=== PATIENT | male | born 1940 | race Caucasian/White ===

== ENCOUNTER 2018-05-27 15:30 | Inpatient (IN) | payer MEDICARE, OTHER, SELFPAY ==
[2018-05-27 16:00] VITALS: BP 101/62; PULSE 93; RESP 18; TEMP 36.3; O2SAT 90
[2018-05-27 16:10] VITALS: BMI 31.3
[2018-05-27 16:21] VITALS: BMI 31.3
--- NOTE | 2018-05-27 16:22 | PCM.HP.STD ---
Problem List (1) Chest pain Status: Acute (2) NSTEMI (non-ST elevated myocardial infarction) Status: Acute (3) Coronary artery disease Status: Chronic (4) Left ventricular dysfunction Status: Acute (5) Diabetes mellitus type 2 in obese Status: Chronic (6) Hypertension Status: Chronic (7) Hyperlipidemia Status: Chronic (8) BPH (benign prostatic hyperplasia) Status: Chronic (9) Atrial fibrillation Status: Chronic (10) Acute kidney injury Status: Chronic (11) GERD (gastroesophageal reflux disease) Status: Chronic History of Present Illness Date of Admission: 05/27/18 Chief Complaint: Here for rehabilitation, strengthening, prior to discharge home with spouse. The patient is a 78 year old Male with below past medical history originally admitted to [facility] with NSTEMI, transferred to [facility] for CABG evaluation. Echo EF 20 to 25%. CT angiogram chest NEGATIVE pulmonary embolism. 05/11/2018 Urology placed indwelling perez catheter due to urinary retention. On Bactrim DS for presumptive urinary tract infection. 05/13/2018 CABG x 5 performed. Atrial Fibrillation post-operatively converted with oral amiodarone. Echo post-op EF 33%. 05/21/2018 Urine culture grew 10 to 50,000 multiple organisms. 05/22/2018 Renal consulted for acute kidney injury, Creatinine 2.2, recommended holding Lasix, RAAS inhibitors. 05/23/2018 Infectious Disease consulted for elevated WBC 26.6, recommended stopping all antibiotics. 05/27/2018 Admit to TCU with debility, here for rehabilitation, strengthening, prior to discharge home with spouse. Resident has reflux symptoms with gas. He is also constipated. Past Medical History Past Medical History (Chronic Problems): Chronic Problems Coronary artery disease (Chronic) Diabetes mellitus type 2 in obese (Chronic) Hypertension (Chronic) Hyperlipidemia (Chronic) BPH (benign prostatic hyperplasia) (Chronic) Atrial fibrillation (Chronic) Acute kidney injury (Chronic) GERD (gastroesophageal reflux disease) (Chronic) Home Medications: Ambulatory Orders Medication Instructions Recorded Acetaminophen 650 mg PO Q4H 05/27/18 Amiodarone HCl [Pacerone] 200 mg PO DAILY 05/27/18 Aspirin 81 mg PO DAILY 05/27/18 Atorvastatin Calcium 80 mg PO QHS 05/27/18 Clopidogrel Bisulfate [Plavix] 75 mg PO DAILY 05/27/18 Enoxaparin [Lovenox] 30 mg SC DAILY@0600 05/27/18 Finasteride [Proscar] 5 mg PO DAILY 05/27/18 Furosemide [Lasix] 20 mg PO DAILY 05/27/18 Lisinopril [Zestril] 2.5 mg PO DAILY 05/27/18 Melatonin 3 mg PO QHS 05/27/18 Metformin HCl [Glucophage] 500 mg PO BIDCM 05/27/18 Metoprolol Succinate 100 mg PO BID 05/27/18 Multivitamin,Therapeutic [Thera] 1 each PO DAILY 05/27/18 Ondansetron [Zofran Odt] 4 mg PO Q6H PRN PRN 05/27/18 Oxycodone [Oxyir] 5 mg PO Q6H PRN PRN 05/27/18 Pantoprazole Sodium [Protonix] 40 mg PO DAILY 05/27/18 Tamsulosin HCl [Flomax] 0.4 mg PO QHS 05/27/18 Surgical History: coronary bypass surgery - X 5. Psychiatric History: No pertinent psych hx Lives: Spouse/ Significant Other Smoking Status: Former smoker Tobacco Use: Cigars Alcohol: None Drugs: None - *Family History Maternal History Items: No pertinent history Paternal History Items: No pertinent history Review of Systems Constitutional: Denies: Chills, Fever, Weight Change HEENT: Denies: Head Aches, Sinus Congestion, Sinus Drainage Cardiovascular: Denies: Chest Pain, Palpitations Respiratory: Denies: Cough, Shortness of breath at rest, Sputum production Gastrointestinal: Reports: Constipation, Dyspepsia. Denies: Abdominal Pain, Nausea, Vomiting Genitourinary: Denies: Dysuria Musculoskeletal: Denies: Joint Pain, Joint Tenderness Skin: Denies: Rash, Wounds Neurological: Denies: Numbness, Tingling, Focal weakness Psychiatric: Denies: Anxiety, Depression, Homicidal Ideations, Suicidal Ideations Hematologic/ Lymphatic: Denies: Easy Bruising, Easy Bleeding VTE Information - Inpt Only VTE Present on Admission: No VTE Mechan Device Prophylaxis: Knee High BERTO Hose VTE Pharm Prophylaxis ordered?: Yes Patient Problems: Active and Suspected Problems Chest pain (Acute) NSTEMI (non-ST elevated myocardial infarction) (Acute) Left ventricular dysfunction (Acute) - Physical Exam General: Alert, Oriented x3, Cooperative HEENT: Atraumatic, PERRLA, EOMI, Normocephalic Neck: Supple, No JVD, Negative Carotid Bruits Lungs: Clear to auscultation, Normal air movement Cardiovascular: Regular rate, No murmurs Abdomen: Bowel Sounds Present, Soft, Non Tender Extremities: Capillary Refill Less than 3 Seconds, Edema - 1+ pitting edema bilaterally. Skin: No rashes, No breakdown, Incision - Sternal incision clean, dry, intact. Musculoskeletal: No Tenderness to Palpation of Joints or Extremities Neurological: Cranial nerves II-XII grossly intact Psych/Mental Status: Normal Affect, Appropriate Weight: 96.2 kg Body Mass Index (BMI) 31.3 Assessment/Plan All Active Problems Chest pain (Acute) NSTEMI (non-ST elevated myocardial infarction) (Acute) Left ventricular dysfunction (Acute) 78 year old male with below past medical history hospitalized for chest pain, NSTEMI, underwent CABG x 5 05/13/2018, post-operative course complicated by atrial fibrillation, leukocytosis, acute kidney injury, admitted to TCU with debility, here for rehabilitation, strengthening, prior to discharge home with spouse. Debility - PT/OT. Pain - Tylenol 1000MG Q8H PRN mild pain, Oxycodone 5MG Q6H PRN moderate pain. Bowel - Miralax 17GM daily, Senna/colace 2 tablets BID, Dulcolax 10MG PO daily PRN, Golytely 1 Liter PO x 1 dose for clean out. Pneumonia vaccination - Administer Prevnar 13 and/or Pneumovax 23 as necessary. DVT prophylaxis - Lovenox 30MG SC daily. Atrial Fibrillation - Metoprolol succinate 100MG BID, Amiodarone 200MG daily, not on anticoagulation, atrial fibrillation episode was transient. Coronary Artery Disease s/p CABG x 5 - Metoprolol succinate 100MG BID, Lisinopril 2.5MG daily, Plavix 75MG daily, Aspirin 81MG daily. Hyperlipidemia - Atorvastatin 80MG QHS. BPH - Tamsulosin 0.4MG daily, Finasteride 5MG daily. Edema - Lasix 20MG daily. Nutrition - Glucerna Shake 120ML TID, MVI daily. Insomnia - Melatonin 10MG QHS. Diabetes Mellitus II - Metformin 500MG BID. Nausea - Zofran 4MG Q6H PRN. GERD - Pantoprazole 40MG daily, Mylanta II 30ML Q6H PRN.
--- NOTE | 2018-05-27 16:30 | HP.PCM_ITS ---
Problem List (1) Chest pain Status: Acute (2) NSTEMI (non-ST elevated myocardial infarction) Status: Acute (3) Coronary artery disease Status: Chronic (4) Left ventricular dysfunction Status: Acute (5) Diabetes mellitus type 2 in obese Status: Chronic (6) Hypertension Status: Chronic (7) Hyperlipidemia Status: Chronic (8) BPH (benign prostatic hyperplasia) Status: Chronic (9) Atrial fibrillation Status: Chronic (10) Acute kidney injury Status: Chronic (11) GERD (gastroesophageal reflux disease) Status: Chronic History of Present Illness Date of Admission: 05/27/18 Chief Complaint: Here for rehabilitation, strengthening, prior to discharge home with spouse. The patient is a 78 year old Male with below past medical history originally admitted to [facility] with NSTEMI, transferred to [facility] for CABG evaluation. Echo EF 20 to 25%. CT angiogram chest NEGATIVE pulmonary embolism. 05/11/2018 Urology placed indwelling perez catheter due to urinary retention. On Bactrim DS for presumptive urinary tract infection. 05/13/2018 CABG x 5 performed. Atrial Fibrillation post-operatively converted with oral amiodarone. Echo post-op EF 33%. 05/21/2018 Urine culture grew 10 to 50,000 multiple organisms. 05/22/2018 Renal consulted for acute kidney injury, Creatinine 2.2, recommended holding Lasix, RAAS inhibitors. 05/23/2018 Infectious Disease consulted for elevated WBC 26.6, recommended stopping all antibiotics. 05/27/2018 Admit to TCU with debility, here for rehabilitation, strengthening, prior to discharge home with spouse. Resident has reflux symptoms with gas. He is also constipated. Past Medical History Past Medical History (Chronic Problems): Chronic Problems Coronary artery disease (Chronic) Diabetes mellitus type 2 in obese (Chronic) Hypertension (Chronic) Hyperlipidemia (Chronic) BPH (benign prostatic hyperplasia) (Chronic) Atrial fibrillation (Chronic) Acute kidney injury (Chronic) GERD (gastroesophageal reflux disease) (Chronic) Home Medications: Ambulatory Orders Medication Instructions Recorded Acetaminophen 650 mg PO Q4H 05/27/18 Amiodarone HCl [Pacerone] 200 mg PO DAILY 05/27/18 Aspirin 81 mg PO DAILY 05/27/18 Atorvastatin Calcium 80 mg PO QHS 05/27/18 Clopidogrel Bisulfate [Plavix] 75 mg PO DAILY 05/27/18 Enoxaparin [Lovenox] 30 mg SC DAILY@0600 05/27/18 Finasteride [Proscar] 5 mg PO DAILY 05/27/18 Furosemide [Lasix] 20 mg PO DAILY 05/27/18 Lisinopril [Zestril] 2.5 mg PO DAILY 05/27/18 Melatonin 3 mg PO QHS 05/27/18 Metformin HCl [Glucophage] 500 mg PO BIDCM 05/27/18 Metoprolol Succinate 100 mg PO BID 05/27/18 Multivitamin,Therapeutic [Thera] 1 each PO DAILY 05/27/18 Ondansetron [Zofran Odt] 4 mg PO Q6H PRN PRN 05/27/18 Oxycodone [Oxyir] 5 mg PO Q6H PRN PRN 05/27/18 Pantoprazole Sodium [Protonix] 40 mg PO DAILY 05/27/18 Tamsulosin HCl [Flomax] 0.4 mg PO QHS 05/27/18 Surgical History: coronary bypass surgery - X 5. Psychiatric History: No pertinent psych hx Lives: Spouse/ Significant Other Smoking Status: Former smoker Tobacco Use: Cigars Alcohol: None Drugs: None - *Family History Maternal History Items: No pertinent history Paternal History Items: No pertinent history Review of Systems Constitutional: Denies: Chills, Fever, Weight Change HEENT: Denies: Head Aches, Sinus Congestion, Sinus Drainage Cardiovascular: Denies: Chest Pain, Palpitations Respiratory: Denies: Cough, Shortness of breath at rest, Sputum production Gastrointestinal: Reports: Constipation, Dyspepsia. Denies: Abdominal Pain, Nausea, Vomiting Genitourinary: Denies: Dysuria Musculoskeletal: Denies: Joint Pain, Joint Tenderness Skin: Denies: Rash, Wounds Neurological: Denies: Numbness, Tingling, Focal weakness Psychiatric: Denies: Anxiety, Depression, Homicidal Ideations, Suicidal Ideations Hematologic/ Lymphatic: Denies: Easy Bruising, Easy Bleeding VTE Information - Inpt Only VTE Present on Admission: No VTE Mechan Device Prophylaxis: Knee High BERTO Hose VTE Pharm Prophylaxis ordered?: Yes Patient Problems: Active and Suspected Problems Chest pain (Acute) NSTEMI (non-ST elevated myocardial infarction) (Acute) Left ventricular dysfunction (Acute) - Physical Exam General: Alert, Oriented x3, Cooperative HEENT: Atraumatic, PERRLA, EOMI, Normocephalic Neck: Supple, No JVD, Negative Carotid Bruits Lungs: Clear to auscultation, Normal air movement Cardiovascular: Regular rate, No murmurs Abdomen: Bowel Sounds Present, Soft, Non Tender Extremities: Capillary Refill Less than 3 Seconds, Edema - 1+ pitting edema bilaterally. Skin: No rashes, No breakdown, Incision - Sternal incision clean, dry, intact. Musculoskeletal: No Tenderness to Palpation of Joints or Extremities Neurological: Cranial nerves II-XII grossly intact Psych/Mental Status: Normal Affect, Appropriate Weight: 96.2 kg Body Mass Index (BMI) 31.3 Assessment/Plan All Active Problems Chest pain (Acute) NSTEMI (non-ST elevated myocardial infarction) (Acute) Left ventricular dysfunction (Acute) 78 year old male with below past medical history hospitalized for chest pain, NSTEMI, underwent CABG x 5 05/13/2018, post-operative course complicated by atrial fibrillation, leukocytosis, acute kidney injury, admitted to TCU with debility, here for rehabilitation, strengthening, prior to discharge home with spouse. * Debility - PT/OT. * Pain - Tylenol 1000MG Q8H PRN mild pain, Oxycodone 5MG Q6H PRN moderate pain. * Bowel - Miralax 17GM daily, Senna/colace 2 tablets BID, Dulcolax 10MG PO daily PRN, Golytely 1 Liter PO x 1 dose for clean out. * Pneumonia vaccination - Administer Prevnar 13 and/or Pneumovax 23 as necessary. * DVT prophylaxis - Lovenox 30MG SC daily. * Atrial Fibrillation - Metoprolol succinate 100MG BID, Amiodarone 200MG daily, not on anticoagulation, atrial fibrillation episode was transient. * Coronary Artery Disease s/p CABG x 5 - Metoprolol succinate 100MG BID, Lisinopril 2.5MG daily, Plavix 75MG daily, Aspirin 81MG daily. * Hyperlipidemia - Atorvastatin 80MG QHS. * BPH - Tamsulosin 0.4MG daily, Finasteride 5MG daily. * Edema - Lasix 20MG daily. * Nutrition - Glucerna Shake 120ML TID, MVI daily. * Insomnia - Melatonin 10MG QHS. * Diabetes Mellitus II - Metformin 500MG BID. * Nausea - Zofran 4MG Q6H PRN. * GERD - Pantoprazole 40MG daily, Mylanta II 30ML Q6H PRN.
[2018-05-27 17:16] LABS: Bedside Glucose 130 mg/dL (70-110)
--- NOTE | 2018-05-27 21:03 | NURSING ---
Discussed code status with patient, patient wishes to be a DNRCC. Purple bracelet applied
[2018-05-27 21:06] LABS: Bedside Glucose 127 mg/dL (70-110)
[2018-05-27] MEDS: Electrolyte Solution/Peg's 4000 ML 1000 ML PO (22:14)
[2018-05-27] MEDS: Glucerna Shake 120 ML LIQUID PO (22:22)
[2018-05-27 22:23] VITALS: BP 116/72; PULSE 89
[2018-05-27] MEDS: MELATONIN 10 MG TABLET PO (22:23)
[2018-05-27] MEDS: Metoprolol(XL)Succ 100 MG Tablet PO (22:23)
[2018-05-27] MEDS: Tamsulosin HCl 0.4 MG Capsule PO (22:25)
[2018-05-27] MEDS: Atorvastatin Calcium 80 MG Tablet PO (22:26)
[2018-05-28] MEDS: Amiodarone 200 MG Tablet PO (05:31)
[2018-05-28 05:32] VITALS: BP 108/67; PULSE 86
[2018-05-28] MEDS: Lisinopril 2.5 MG Tablet PO (05:32)
[2018-05-28] MEDS: Finasteride 5 MG Tablet PO (05:32)
[2018-05-28] MEDS: Clopidogrel Bisulfate 75 MG Tablet PO (05:32)
[2018-05-28] MEDS: Pantoprazole Sodium 40 MG Tablet PO (05:32)
[2018-05-28] MEDS: Metoprolol(XL)Succ 100 MG Tablet PO ×2 (05:32→19:45)
[2018-05-28] MEDS: Furosemide 20 MG Tablet PO (05:32)
[2018-05-28] MEDS: Enoxaparin 30 MG/0.3 ML Syringe SC (05:34)
[2018-05-28 06:00] VITALS: PULSE 78; RESP 18; O2SAT 94
[2018-05-28 06:56] LABS: Bedside Glucose 128 mg/dL (70-110)
[2018-05-28 07:34] LABS: Absolute Lymphocyte Count 0.83 X10^3/ul (0.83-4.51); Absolute Neutrophil Count 14.5 X10^3/uL (2.0-7.7); Basophil# 0.02 X10^3/uL; Basophil% 0.1 % (0-1); Eosinophil# 0.19 X10^3/uL; Eosinophils% 1.2 % (0-5); Hemoglobin 9.6 g/dl (13.0-16.5); Lymphocyte # 0.83 X10^3/ul (4.0); Lymphocyte % 5.1 % (19-41); Mean Corpuscular Hgb 29.8 pg (27.0-32.0); Mean Corpuscular Volume 96.3 fL (80-94); Mean Platelet Vol. 10.4 fl (6.2-12.0); Monocyte# 0.61 X10^3/uL; Monocyte% 3.8 % (0-10); Neutrophil # 14.53 X10^3/uL (2.7-7.7); Neutrophil % 89.6 % (47-70); Platelet Count 175 K/mm3 (150-450); RBC Distribution Width CV 14.4 % (11.6-14.6); RBC Distribution Width SD 50.3 fl (35.1-43.9); Red Blood Count 3.22 M/mm3 (4.6-6.2); White Blood Count 16.2 K/mm3 (4.4-11.0)
[2018-05-28 07:35] LABS: POSITIVE COUNT NO; POSITIVE DIFFERENTIAL NO; POSITIVE MORPHOLOGY NO
[2018-05-28 07:52] LABS: Anion Gap 9 (5-15); BUN 24 mg/dL (7-18); BUN/Creat Ratio 30.4 RATIO (10-20); Calcium,Total 8.5 mg/dL (8.5-10.1); Chloride 106 mmol/L (98-107); Creatinine, Serum 0.79 mg/dL (0.70-1.30); EST Glomerular Filtration Rate 101 mL/min (>60); Est Glom Filt Rate - Afr Amer 122 mL/min (>60); Estimated Creatinine Clearance 60.88 ml/min; Glucose 131 mg/dL (74-106); Potassium 4.3 mmol/L (3.5-5.1); Sodium Level 138 mmol/L (136-145)
[2018-05-28] MEDS: Aspirin 81 MG TAB.CHEW PO (08:18)
[2018-05-28] MEDS: Multivitamins,Therapeutic Tablet 1 TABLET PO (08:18)
[2018-05-28] MEDS: Glucerna Shake 120 ML LIQUID PO ×2 (08:18→13:39)
[2018-05-28 11:21] LABS: Bedside Glucose 146 mg/dL (70-110)
[2018-05-28] MEDS: Tuberculin,Purif.prot.deriv. 50 TU/ML Vial 5 ML ID (13:37)
[2018-05-28 16:00] VITALS: BP 97/55; PULSE 93; RESP 16; TEMP 36.7; O2SAT 92
[2018-05-28 19:45] VITALS: BP 102/60; PULSE 93
[2018-05-28] MEDS: oxyCODONE 5 MG Tablet PO (21:32)
[2018-05-28] MEDS: MELATONIN 10 MG TABLET PO (21:32)
[2018-05-28] MEDS: Tamsulosin HCl 0.4 MG Capsule PO (21:32)
[2018-05-28] MEDS: Atorvastatin Calcium 80 MG Tablet PO (21:33)
[2018-05-29 04:53] VITALS: PULSE 84
[2018-05-29] MEDS: Metoprolol(XL)Succ 100 MG Tablet PO ×2 (04:53→18:48)
[2018-05-29] MEDS: Pantoprazole Sodium 40 MG Tablet PO (04:54)
[2018-05-29] MEDS: Finasteride 5 MG Tablet PO (04:55)
[2018-05-29] MEDS: Clopidogrel Bisulfate 75 MG Tablet PO (04:55)
[2018-05-29] MEDS: Amiodarone 200 MG Tablet PO (04:55)
[2018-05-29] MEDS: Furosemide 20 MG Tablet PO (04:56)
[2018-05-29] MEDS: oxyCODONE 5 MG Tablet PO ×2 (04:56→20:01)
[2018-05-29] MEDS: Enoxaparin 30 MG/0.3 ML Syringe SC (04:56)
[2018-05-29] MEDS: Lisinopril 2.5 MG Tablet PO (04:56)
[2018-05-29 07:10] LABS: Bedside Glucose 122 mg/dL (70-110)
[2018-05-29] MEDS: Multivitamins,Therapeutic Tablet 1 TABLET PO (07:54)
[2018-05-29] MEDS: Glucerna Shake 120 ML LIQUID PO ×3 (07:54→18:50)
[2018-05-29] MEDS: Aspirin 81 MG TAB.CHEW PO (07:54)
[2018-05-29 10:00] VITALS: O2SAT 90
[2018-05-29 11:30] LABS: Bedside Glucose 124 mg/dL (70-110)
[2018-05-29 16:00] VITALS: BP 85/49; PULSE 87; RESP 16; TEMP 36.7; O2SAT 94
[2018-05-29 17:06] LABS: Bedside Glucose 138 mg/dL (70-110)
[2018-05-29 18:48] VITALS: BP 101/55; PULSE 82
[2018-05-29] MEDS: Menthol/Lanolin/Calamine/Znox 113 GM Tube 1 APPLIC TOPICAL (20:02)
[2018-05-29] MEDS: MELATONIN 10 MG TABLET PO (20:02)
[2018-05-29] MEDS: Atorvastatin Calcium 80 MG Tablet PO (20:02)
[2018-05-29] MEDS: Tamsulosin HCl 0.4 MG Capsule PO (20:02)
--- NOTE | 2018-05-29 20:03 | NURSING ---
Addendum entered by Iza Patterson 05/29/18 20:33: Dr. Ennis notified. New order for abd xray and lomotil. Pt updated on all. Will continue to monitor. Original Note: Pt having severe episodes of diarrhea/forceful liquid stools. Very uncomfortable, asking for something to alleviate diarrhea. RN aware. Continuing to monitor and encourage to call for help when needed. Pt agreeable to this. Continuing to monitor, hold all stool softeners.
[2018-05-29 21:31] LABS: Bedside Glucose 161 mg/dL (70-110)
--- NOTE | 2018-05-29 21:36 | NURSING ---
Dr Ennis notified of KUB results. Continue to monitor pt. NNO.
[2018-05-30] MEDS: Diphenoxylate/Atrop 1 Tablet PO ×2 (00:14→15:20)
[2018-05-30] MEDS: Enoxaparin 30 MG/0.3 ML Syringe SC (05:34)
[2018-05-30] MEDS: Finasteride 5 MG Tablet PO (05:34)
[2018-05-30] MEDS: Menthol/Lanolin/Calamine/Znox 113 GM Tube 1 APPLIC TOPICAL ×3 (05:34→21:50)
[2018-05-30] MEDS: Clopidogrel Bisulfate 75 MG Tablet PO (05:34)
[2018-05-30] MEDS: Pantoprazole Sodium 40 MG Tablet PO (05:34)
[2018-05-30 05:35] VITALS: PULSE 80
[2018-05-30] MEDS: Furosemide 20 MG Tablet PO (05:35)
[2018-05-30] MEDS: Amiodarone 200 MG Tablet PO (05:35)
[2018-05-30] MEDS: Metoprolol(XL)Succ 100 MG Tablet PO ×2 (05:35→17:36)
[2018-05-30] MEDS: Lisinopril 2.5 MG Tablet PO (05:35)
[2018-05-30] MEDS: oxyCODONE 5 MG Tablet PO (05:36)
[2018-05-30 07:06] LABS: Bedside Glucose 132 mg/dL (70-110)
[2018-05-30] MEDS: Glucerna Shake 120 ML LIQUID PO ×3 (08:52→17:34)
[2018-05-30] MEDS: Multivitamins,Therapeutic Tablet 1 TABLET PO (08:56)
[2018-05-30] MEDS: Aspirin 81 MG TAB.CHEW PO (08:56)
[2018-05-30 14:30] VITALS: PULSE 83; RESP 18; O2SAT 93
[2018-05-30 16:00] VITALS: BP 107/53; PULSE 83; RESP 16; TEMP 37.7; O2SAT 93
[2018-05-30 17:36] VITALS: BP 107/53; PULSE 83
[2018-05-30] MEDS: Tamsulosin HCl 0.4 MG Capsule PO (21:48)
[2018-05-30] MEDS: Atorvastatin Calcium 80 MG Tablet PO (21:48)
[2018-05-30] MEDS: MELATONIN 10 MG TABLET PO (21:48)
[2018-05-30 22:10] LABS: Bedside Glucose 116 mg/dL (70-110)
[2018-05-31] MEDS: Amiodarone 200 MG Tablet PO (05:21)
[2018-05-31] MEDS: Lisinopril 2.5 MG Tablet PO (05:21)
[2018-05-31] MEDS: Enoxaparin 30 MG/0.3 ML Syringe SC (05:21)
[2018-05-31] MEDS: Pantoprazole Sodium 40 MG Tablet PO (05:21)
[2018-05-31] MEDS: Finasteride 5 MG Tablet PO (05:21)
[2018-05-31] MEDS: Furosemide 20 MG Tablet PO (05:21)
[2018-05-31] MEDS: Clopidogrel Bisulfate 75 MG Tablet PO (05:21)
[2018-05-31 05:26] VITALS: BP 95/56; PULSE 80
[2018-05-31] MEDS: Menthol/Lanolin/Calamine/Znox 113 GM Tube 1 APPLIC TOPICAL ×3 (05:40→20:40)
[2018-05-31 06:55] LABS: Bedside Glucose 137 mg/dL (70-110)
--- NOTE | 2018-05-31 07:27 | NURSING ---
This nurse held pt bp med d/t low Bp 95/56, P-92 Rn Andrew briscoe. Rechecked BP 157/64, P-97
[2018-05-31] MEDS: Multivitamins,Therapeutic Tablet 1 TABLET PO (09:17)
[2018-05-31] MEDS: Aspirin 81 MG TAB.CHEW PO (09:17)
[2018-05-31] MEDS: Diphenoxylate/Atrop 1 Tablet PO ×2 (09:20→13:25)
[2018-05-31] MEDS: Glucerna Shake 120 ML LIQUID PO ×3 (09:31→17:15)
--- NOTE | 2018-05-31 13:07 | PCM.PN.RX ---
<Edgar Jamison C - Last Filed: 05/31/18 18:03> Progress Note - Pharmacy Subjective: [] TCU Admission Objective: Allergies No Known Allergies Allergy (Verified 05/27/18 17:09) Current Medications Generic Name Dose Route Start Last Admin Trade Name Freq PRN Reason Stop Dose Admin Acetaminophen 1,000 mg 05/27/18 19:13 Tylenol PO Q8H PRN MILD PAIN (1-3/10) Al Hydroxide/Mg Hydroxide 30 ml 05/27/18 19:07 Mylanta Ii PO Q6H PRN PRN INDIGESTION Amiodarone HCl 200 mg 05/28/18 06:00 05/31/18 05:21 Cordarone PO 200 mg DAILY TEO Administration Aspirin 81 mg 05/28/18 08:00 05/31/18 09:17 Aspirin, Baby PO 81 mg DAILYCM TEO Administration Atorvastatin Calcium 80 mg 05/27/18 22:00 05/30/18 21:48 Lipitor PO 80 mg QHS TEO Administration Bisacodyl 10 mg 05/27/18 19:08 Dulcolax PO DAILY PRN Constipation Calamine/Phenol 1 applic 05/29/18 14:00 05/31/18 05:40 Calmoseptine Ointment TOPICAL 1 applicatio TID TEO Administration Protocol Clopidogrel Bisulfate 75 mg 05/28/18 06:00 05/31/18 05:21 Plavix PO 75 mg DAILY TEO Administration Diphenoxylate HCl/Atropine 1 tablet 05/29/18 20:28 05/31/18 09:20 Lomotil PO 1 tablet Q4H PRN PRN Administration DIARRHEA Enoxaparin Sodium 30 mg 05/28/18 06:00 05/31/18 05:21 Lovenox SC 30 mg DAILY@0600 TEO Administration Finasteride 5 mg 05/28/18 06:00 05/31/18 05:21 Proscar PO 5 mg DAILY TEO Administration Furosemide 20 mg 05/28/18 06:00 05/31/18 05:21 Lasix PO 20 mg DAILY TEO Administration Lisinopril 2.5 mg 05/28/18 06:00 05/31/18 05:21 Zestril PO 2.5 mg DAILY TEO Administration Melatonin 10 mg 05/27/18 22:00 05/30/18 21:48 Melatonin PO 10 mg QHS TEO Administration Metformin HCl 500 mg 09/07/18 21:00 05/31/18 09:17 Glucophage PO 500 mg BIDCM [facility] Administration Metoprolol Succinate 100 mg 05/27/18 21:00 05/31/18 05:26 Toprol Xl (Beta Isidro) PO Not Given BID [facility] Multivitamins 1 tablet 05/28/18 08:00 05/31/18 09:17 Multivitamin PO 1 tablet DAILY@0800 TEO Administration Nutritional Formula (Lactose Free) 120 ml 05/27/18 17:45 05/31/18 12:01 Glucerna Shake PO 120 ml TIDCM [facility] Administration Ondansetron HCl 4 mg 05/27/18 16:47 Zofran Odt PO Q6H PRN PRN NAUSEA Oxycodone HCl 5 mg 05/27/18 19:13 05/30/18 05:36 Oxyir PO 5 mg Q6H PRN PRN Administration MODERATE PAIN (4-5/10) Pantoprazole Sodium 40 mg 05/28/18 06:00 05/31/18 05:21 Protonix PO 40 mg DAILY [facility] Administration Polyethylene Glycol 17 gm 05/28/18 06:00 05/31/18 05:22 Miralax PO Not Given DAILY [facility] Senna/Docusate Sodium 2 tablet 05/28/18 06:00 05/31/18 05:22 Senokot-S, Viridiana-Colace PO Not Given BID [facility] Simethicone 80 mg 05/30/18 08:45 05/31/18 12:01 Mylicon PO 80 mg TIDPC [facility] Administration Tamsulosin HCl 0.4 mg 05/27/18 22:00 05/30/18 21:48 Flomax PO 0.4 mg QHS [facility] Administration Tuberculin PPD 5 tu 06/04/18 10:00 Tubersol, Aplisol, Ppd ID 06/04/18 10:01 X1 ONE Problem List Chest pain (Acute) NSTEMI (non-ST elevated myocardial infarction) (Acute) Coronary artery disease (Chronic) Left ventricular dysfunction (Acute) Diabetes mellitus type 2 in obese (Chronic) Hypertension (Chronic) Hyperlipidemia (Chronic) BPH (benign prostatic hyperplasia) (Chronic) Atrial fibrillation (Chronic) Acute kidney injury (Chronic) GERD (gastroesophageal reflux disease) (Chronic) Vital Signs Temp Pulse Resp BP Pulse Ox 99.8 F H 80 16 95/56 L 93 05/30/18 16:00 05/31/18 05:26 05/30/18 16:00 05/31/18 05:26 05/30/18 16:00 Oxygen Delivery Method Room Air Weight: 94.489 kg Body Mass Index (BMI) 31.3 Sodium 138 mmol/L (136-145) 05/28/18 07:00 Potassium 4.3 mmol/L (3.5-5.1) 05/28/18 07:00 Chloride 106 mmol/L (98-107) 05/28/18 07:00 Carbon Dioxide 23.0 mmol/L (21.0-32.0) 05/28/18 07:00 Anion Gap 9 (5-15) 05/28/18 07:00 BUN 24 mg/dL (7-18) H 05/28/18 07:00 Creatinine 0.79 mg/dL (0.70-1.30) 05/28/18 07:00 Est GFR (MDRD) Af Amer 122 mL/min (>60) 05/28/18 07:00 Est GFR (MDRD) Non-Af 101 mL/min (>60) 05/28/18 07:00 BUN/Creatinine Ratio 30.4 RATIO (10-20) H 05/28/18 07:00 Glucose 131 mg/dL (74-106) H 05/28/18 07:00 Assessment/Plan: 1) Pain: Tylenol 1000mg po q8h prn for mild pain, Oxycodone 5mg po q6h prn for moderate pain. Please continue to monitor prn usage and signs/symptoms of increased/decreased pain. 2) DVT Prophylaxis: Lovenox 30mg subq daily. Pt's SrCr is 0.79, CrCl is 60.88, and Plts are 175. Please continue to monitor, and signs/symptoms of bleeding/clot. 3) Nausea: Zofran 4mg odt q6h prn for nausea. Please continue to monitor prn usage and for signs/symptoms of increased/decreased nausea. 4) GERD: Pantoprazole 40mg po daily, Mylanta II 30ml po q6h prn. Please continue to monitor for signs/symptoms of GERD. 5) BPH: Tamsulosin 0.4mg po daily, Finasteride 5mg po daily. Please continue to monitor for signs/symptoms of urinary retention. *6) Hyperlipidemia: Atorvastatin 80mg po qhs. Please consider a yearly liver and lipid panel while on this medication. Thanks 7) Edema: Furosemide 20mg po daily. Pt's Na is 138, K+ is 4.3, SrCr is 0.79. Please continue to monitor. Please continue to monitor for signs/symptoms of edema 8) CAD, AFib: Toprol XL 100mg po bid, Lisinopril 2.5mg daily, Plavix 75mg po daily, Aspirin 81mg po daily, Amiodarone 200mg daily. Pt's Na is 138, K+ is 4.3, SrCr is 0.79, CrCl is 60.88, BUN is 24. Pt's pulse are within normal rate and rhythm. Please continue to monitor pt's pulse and blood pressures. 9) Diabetes: Metformin 500mg po bid with food. Please continue to monitor pt's blood sugars and for signs/symptoms of hyperglycemia. Psychotropic Medications: Melatonin 10mg po qhs. medication will require a GDR 08/2018 unless clinically contraindicated. Unnecessary Medications: *Bowel Regimen: Bisacodyl 10mg po daily prn constipation, Lomotil 1 po q4h prn diarrhea, Miralax 17gm po daily, Senna/Docusate 2 po bid. Pt has been refusing Miralax and Senna/Docusate daily. Please consider discontinuing those medications and reordering them if needed. Thanks Date of Note:: 05/31/18 - Provider Comments Provider responsibility: Provider responsible to enter orders to implement recommendations <Arnulfo Ennis Chi - Last Filed: 05/31/18 19:09> Progress Note - Pharmacy Subjective: [] Objective: Allergies No Known Allergies Allergy (Verified 05/27/18 17:09) Current Medications Generic Name Dose Route Start Last Admin Trade Name Freq PRN Reason Stop Dose Admin Acetaminophen 1,000 mg 05/27/18 19:13 Tylenol PO Q8H PRN MILD PAIN (1-3/10) Al Hydroxide/Mg Hydroxide 30 ml 05/27/18 19:07 Mylanta Ii PO Q6H PRN PRN INDIGESTION Amiodarone HCl 200 mg 05/28/18 06:00 05/31/18 05:21 Cordarone PO 200 mg DAILY TEO Administration Aspirin 81 mg 05/28/18 08:00 05/31/18 09:17 Aspirin, Baby PO 81 mg DAILYCM [facility] Administration Atorvastatin Calcium 80 mg 05/27/18 22:00 05/30/18 21:48 Lipitor PO 80 mg QHS [facility] Administration Bisacodyl 10 mg 05/27/18 19:08 Dulcolax PO DAILY PRN Constipation Calamine/Phenol 1 applic 05/29/18 14:00 05/31/18 13:22 Calmoseptine Ointment TOPICAL 1 applicatio TID [facility] Administration Protocol Clopidogrel Bisulfate 75 mg 05/28/18 06:00 05/31/18 05:21 Plavix PO 75 mg DAILY [facility] Administration Diphenoxylate HCl/Atropine 1 tablet 05/29/18 20:28 05/31/18 13:25 Lomotil PO 1 tablet Q4H PRN PRN Administration DIARRHEA Doxepin HCl 50 mg 05/31/18 22:00 Doxepin Hcl PO QHS [facility] Enoxaparin Sodium 30 mg 05/28/18 06:00 05/31/18 05:21 Lovenox SC 30 mg DAILY@0600 [facility] Administration Finasteride 5 mg 05/28/18 06:00 05/31/18 05:21 Proscar PO 5 mg DAILY [facility] Administration Furosemide 20 mg 05/28/18 06:00 05/31/18 05:21 Lasix PO 20 mg DAILY [facility] Administration Lisinopril 2.5 mg 05/28/18 06:00 05/31/18 05:21 Zestril PO 2.5 mg DAILY [facility] Administration Metformin HCl 500 mg 05/27/18 21:00 05/31/18 17:15 [facility] Administration Metoprolol Succinate 100 mg 05/27/18 21:00 05/31/18 17:15 Toprol Xl (Beta Isidro) PO 100 mg BID [facility] Administration Multivitamins 1 tablet 05/28/18 08:00 05/31/18 09:17 Multivitamin PO 1 tablet DAILY@0800 [facility] Administration Nutritional Formula (Lactose Free) 120 ml 05/27/18 17:45 05/31/18 17:15 Glucerna Shake PO 120 ml TIDCM [facility] Administration Ondansetron HCl 4 mg 05/27/18 16:47 Zofran Odt PO Q6H PRN PRN NAUSEA Oxycodone HCl 5 mg 05/27/18 19:13 05/30/18 05:36 Oxyir PO 5 mg Q6H PRN PRN Administration MODERATE PAIN (4-5/10) Pantoprazole Sodium 40 mg 05/28/18 06:00 05/31/18 05:21 Protonix PO 40 mg DAILY TEO Administration Polyethylene Glycol 17 gm 05/28/18 06:00 05/31/18 05:22 Miralax PO Not Given DAILY TEO Senna/Docusate Sodium 2 tablet 05/31/18 17:20 Senokot-S, Viridiana-Colace PO BID PRN Constipation Simethicone 80 mg 05/30/18 08:45 05/31/18 18:24 Mylicon PO 80 mg TIDPC [facility] Administration Tamsulosin HCl 0.4 mg 05/27/18 22:00 05/30/18 21:48 Flomax PO 0.4 mg QHS TEO Administration Tuberculin PPD 5 tu 06/04/18 10:00 Tubersol, Aplisol, Ppd ID 06/04/18 10:01 X1 ONE Problem List Chest pain (Acute) NSTEMI (non-ST elevated myocardial infarction) (Acute) Coronary artery disease (Chronic) Left ventricular dysfunction (Acute) Diabetes mellitus type 2 in obese (Chronic) Hypertension (Chronic) Hyperlipidemia (Chronic) BPH (benign prostatic hyperplasia) (Chronic) Atrial fibrillation (Chronic) Acute kidney injury (Chronic) GERD (gastroesophageal reflux disease) (Chronic) Vital Signs Temp Pulse Resp BP Pulse Ox 97.4 F L 90 16 107/59 L 93 05/31/18 16:00 05/31/18 17:15 05/31/18 16:00 05/31/18 16:00 05/31/18 16:00 Oxygen Delivery Method Room Air Weight: 94.489 kg Body Mass Index (BMI) 31.3 Sodium 138 mmol/L (136-145) 05/28/18 07:00 Potassium 4.3 mmol/L (3.5-5.1) 05/28/18 07:00 Chloride 106 mmol/L (98-107) 05/28/18 07:00 Carbon Dioxide 23.0 mmol/L (21.0-32.0) 05/28/18 07:00 Anion Gap 9 (5-15) 05/28/18 07:00 BUN 24 mg/dL (7-18) H 05/28/18 07:00 Creatinine 0.79 mg/dL (0.70-1.30) 05/28/18 07:00 Est GFR (MDRD) Af Amer 122 mL/min (>60) 05/28/18 07:00 Est GFR (MDRD) Non-Af 101 mL/min (>60) 05/28/18 07:00 BUN/Creatinine Ratio 30.4 RATIO (10-20) H 05/28/18 07:00 Glucose 131 mg/dL (74-106) H 05/28/18 07:00 Assessment/Plan: Psychotropic Medications: Unnecessary Medications: Bowel Regimen: - Provider Comments Provider responsibility: Provider responsible to enter orders to implement recommendations Provider Comments to Recommendations by Pharmacy: Agree
--- NOTE | 2018-05-31 13:30 | PHA.CONS_ITS ---
<Edgar Jamison C - Last Filed: 05/31/18 18:03> Progress Note - Pharmacy Subjective: [] TCU Admission Objective: Allergies No Known Allergies Allergy (Verified 05/27/18 17:09) Current Medications Generic Name Dose Route Start Last Admin Trade Name Freq PRN Reason Stop Dose Admin Acetaminophen 1,000 mg 05/27/18 19:13 Tylenol PO Q8H PRN MILD PAIN (1-3/10) Al Hydroxide/Mg Hydroxide 30 ml 05/27/18 19:07 Mylanta Ii PO Q6H PRN PRN INDIGESTION Amiodarone HCl 200 mg 05/28/18 06:00 05/31/18 05:21 Cordarone PO 200 mg DAILY TEO Administration Aspirin 81 mg 05/28/18 08:00 05/31/18 09:17 Aspirin, Baby PO 81 mg DAILYCM [facility] Administration Atorvastatin Calcium 80 mg 05/27/18 22:00 05/30/18 21:48 Lipitor PO 80 mg QHS TEO Administration Bisacodyl 10 mg 05/27/18 19:08 Dulcolax PO DAILY PRN Constipation Calamine/Phenol 1 applic 05/29/18 14:00 05/31/18 05:40 Calmoseptine Ointment TOPICAL 1 applicatio TID TEO Administration Protocol Clopidogrel Bisulfate 75 mg 05/28/18 06:00 05/31/18 05:21 Plavix PO 75 mg DAILY TEO Administration Diphenoxylate HCl/Atropine 1 tablet 05/29/18 20:28 05/31/18 09:20 Lomotil PO 1 tablet Q4H PRN PRN Administration DIARRHEA Enoxaparin Sodium 30 mg 05/28/18 06:00 05/31/18 05:21 Lovenox SC 30 mg DAILY@0600 TEO Administration Finasteride 5 mg 05/28/18 06:00 05/31/18 05:21 Proscar PO 5 mg DAILY TEO Administration Furosemide 20 mg 05/28/18 06:00 05/31/18 05:21 Lasix PO 20 mg DAILY TEO Administration Lisinopril 2.5 mg 05/28/18 06:00 05/31/18 05:21 Zestril PO 2.5 mg DAILY TEO Administration Melatonin 10 mg 05/27/18 22:00 05/30/18 21:48 Melatonin PO 10 mg QHS TEO Administration Metformin HCl 500 mg 09/07/18 21:00 05/31/18 09:17 Glucophage PO 500 mg BIDCM [facility] Administration Metoprolol Succinate 100 mg 05/27/18 21:00 05/31/18 05:26 Toprol Xl (Beta Isidro) PO Not Given BID [facility] Multivitamins 1 tablet 05/28/18 08:00 05/31/18 09:17 Multivitamin PO 1 tablet DAILY@0800 TEO Administration Nutritional Formula (Lactose Free) 120 ml 05/27/18 17:45 05/31/18 12:01 Glucerna Shake PO 120 ml TIDCM [facility] Administration Ondansetron HCl 4 mg 05/27/18 16:47 Zofran Odt PO Q6H PRN PRN NAUSEA Oxycodone HCl 5 mg 05/27/18 19:13 05/30/18 05:36 Oxyir PO 5 mg Q6H PRN PRN Administration MODERATE PAIN (4-5/10) Pantoprazole Sodium 40 mg 05/28/18 06:00 05/31/18 05:21 Protonix PO 40 mg DAILY [facility] Administration Polyethylene Glycol 17 gm 05/28/18 06:00 05/31/18 05:22 Miralax PO Not Given DAILY [facility] Senna/Docusate Sodium 2 tablet 05/28/18 06:00 05/31/18 05:22 Senokot-S, Viridiana-Colace PO Not Given BID [facility] Simethicone 80 mg 05/30/18 08:45 05/31/18 12:01 Mylicon PO 80 mg TIDPC [facility] Administration Tamsulosin HCl 0.4 mg 05/27/18 22:00 05/30/18 21:48 Flomax PO 0.4 mg QHS [facility] Administration Tuberculin PPD 5 tu 06/04/18 10:00 Tubersol, Aplisol, Ppd ID 06/04/18 10:01 X1 ONE Problem List Chest pain (Acute) NSTEMI (non-ST elevated myocardial infarction) (Acute) Coronary artery disease (Chronic) Left ventricular dysfunction (Acute) Diabetes mellitus type 2 in obese (Chronic) Hypertension (Chronic) Hyperlipidemia (Chronic) BPH (benign prostatic hyperplasia) (Chronic) Atrial fibrillation (Chronic) Acute kidney injury (Chronic) GERD (gastroesophageal reflux disease) (Chronic) Vital Signs Temp Pulse Resp BP Pulse Ox 99.8 F H 80 16 95/56 L 93 05/30/18 16:00 05/31/18 05:26 05/30/18 16:00 05/31/18 05:26 05/30/18 16:00 Oxygen Delivery Method Room Air Weight: 94.489 kg Body Mass Index (BMI) 31.3 Sodium 138 mmol/L (136-145) 05/28/18 07:00 Potassium 4.3 mmol/L (3.5-5.1) 05/28/18 07:00 Chloride 106 mmol/L (98-107) 05/28/18 07:00 Carbon Dioxide 23.0 mmol/L (21.0-32.0) 05/28/18 07:00 Anion Gap 9 (5-15) 05/28/18 07:00 BUN 24 mg/dL (7-18) H 05/28/18 07:00 Creatinine 0.79 mg/dL (0.70-1.30) 05/28/18 07:00 Est GFR (MDRD) Af Amer 122 mL/min (>60) 05/28/18 07:00 Est GFR (MDRD) Non-Af 101 mL/min (>60) 05/28/18 07:00 BUN/Creatinine Ratio 30.4 RATIO (10-20) H 05/28/18 07:00 Glucose 131 mg/dL (74-106) H 05/28/18 07:00 Assessment/Plan: 1) Pain: Tylenol 1000mg po q8h prn for mild pain, Oxycodone 5mg po q6h prn for moderate pain. Please continue to monitor prn usage and signs/symptoms of increased/decreased pain. 2) DVT Prophylaxis: Lovenox 30mg subq daily. Pt's SrCr is 0.79, CrCl is 60.88 , and Plts are 175. Please continue to monitor, and signs/symptoms of bleeding/ clot. 3) Nausea: Zofran 4mg odt q6h prn for nausea. Please continue to monitor prn usage and for signs/symptoms of increased/decreased nausea. 4) GERD: Pantoprazole 40mg po daily, Mylanta II 30ml po q6h prn. Please continue to monitor for signs/symptoms of GERD. 5) BPH: Tamsulosin 0.4mg po daily, Finasteride 5mg po daily. Please continue to monitor for signs/symptoms of urinary retention. *6) Hyperlipidemia: Atorvastatin 80mg po qhs. Please consider a yearly liver and lipid panel while on this medication. Thanks 7) Edema: Furosemide 20mg po daily. Pt's Na is 138, K+ is 4.3, SrCr is 0.79. Please continue to monitor. Please continue to monitor for signs/symptoms of edema 8) CAD, AFib: Toprol XL 100mg po bid, Lisinopril 2.5mg daily, Plavix 75mg po daily, Aspirin 81mg po daily, Amiodarone 200mg daily. Pt's Na is 138, K+ is 4.3 , SrCr is 0.79, CrCl is 60.88, BUN is 24. Pt's pulse are within normal rate and rhythm. Please continue to monitor pt's pulse and blood pressures. 9) Diabetes: Metformin 500mg po bid with food. Please continue to monitor pt's blood sugars and for signs/symptoms of hyperglycemia. Psychotropic Medications: Melatonin 10mg po qhs. medication will require a GDR 08/2018 unless clinically contraindicated. Unnecessary Medications: *Bowel Regimen: Bisacodyl 10mg po daily prn constipation, Lomotil 1 po q4h prn diarrhea, Miralax 17gm po daily, Senna/Docusate 2 po bid. Pt has been refusing Miralax and Senna/Docusate daily. Please consider discontinuing those medications and reordering them if needed. Thanks Date of Note:: 05/31/18 - Provider Comments Provider responsibility: Provider responsible to enter orders to implement recommendations <Arnulfo Ennis Chi - Last Filed: 05/31/18 19:09> Progress Note - Pharmacy Subjective: [] Objective: Allergies No Known Allergies Allergy (Verified 05/27/18 17:09) Current Medications Generic Name Dose Route Start Last Admin Trade Name Freq PRN Reason Stop Dose Admin Acetaminophen 1,000 mg 05/27/18 19:13 Tylenol PO Q8H PRN MILD PAIN (1-3/10) Al Hydroxide/Mg Hydroxide 30 ml 05/27/18 19:07 Mylanta Ii PO Q6H PRN PRN INDIGESTION Amiodarone HCl 200 mg 05/28/18 06:00 05/31/18 05:21 Cordarone PO 200 mg DAILY [facility] Administration Aspirin 81 mg 05/28/18 08:00 05/31/18 09:17 Aspirin, Baby PO 81 mg DAILYCM [facility] Administration Atorvastatin Calcium 80 mg 05/27/18 22:00 05/30/18 21:48 Lipitor PO 80 mg QHS [facility] Administration Bisacodyl 10 mg 05/27/18 19:08 Dulcolax PO DAILY PRN Constipation Calamine/Phenol 1 applic 05/29/18 14:00 05/31/18 13:22 Calmoseptine Ointment TOPICAL 1 applicatio TID [facility] Administration Protocol Clopidogrel Bisulfate 75 mg 05/28/18 06:00 05/31/18 05:21 Plavix PO 75 mg DAILY [facility] Administration Diphenoxylate HCl/Atropine 1 tablet 05/29/18 20:28 05/31/18 13:25 Lomotil PO 1 tablet Q4H PRN PRN Administration DIARRHEA Doxepin HCl 50 mg 05/31/18 22:00 Doxepin Hcl PO QHS [facility] Enoxaparin Sodium 30 mg 05/28/18 06:00 05/31/18 05:21 Lovenox SC 30 mg DAILY@0600 [facility] Administration Finasteride 5 mg 05/28/18 06:00 05/31/18 05:21 Proscar PO 5 mg DAILY [facility] Administration Furosemide 20 mg 05/28/18 06:00 05/31/18 05:21 Lasix PO 20 mg DAILY [facility] Administration Lisinopril 2.5 mg 05/28/18 06:00 05/31/18 05:21 Zestril PO 2.5 mg DAILY [facility] Administration Metformin HCl 500 mg 05/27/18 21:00 05/31/18 17:15 [facility] Metoprolol Succinate 100 mg 05/27/18 21:00 05/31/18 17:15 Toprol Xl (Beta Isidro) PO 100 mg BID [facility] Administration Multivitamins 1 tablet 05/28/18 08:00 05/31/18 09:17 Multivitamin PO 1 tablet DAILY@0800 [facility] Administration Nutritional Formula (Lactose Free) 120 ml 05/27/18 17:45 05/31/18 17:15 Glucerna Shake PO 120 ml TIDCM [facility] Administration Ondansetron HCl 4 mg 05/27/18 16:47 Zofran Odt PO Q6H PRN PRN NAUSEA Oxycodone HCl 5 mg 05/27/18 19:13 05/30/18 05:36 Oxyir PO 5 mg Q6H PRN PRN Administration MODERATE PAIN (4-5/10) Pantoprazole Sodium 40 mg 05/28/18 06:00 05/31/18 05:21 Protonix PO 40 mg DAILY [facility] Administration Polyethylene Glycol 17 gm 05/28/18 06:00 05/31/18 05:22 Miralax PO Not Given DAILY [facility] Senna/Docusate Sodium 2 tablet 05/31/18 17:20 Senokot-S, Viridiana-Colace PO BID PRN Constipation Simethicone 80 mg 05/30/18 08:45 05/31/18 18:24 Mylicon PO 80 mg TIDPC [facility] Administration Tamsulosin HCl 0.4 mg 05/27/18 22:00 05/30/18 21:48 Flomax PO 0.4 mg QHS [facility] Administration Tuberculin PPD 5 tu 06/04/18 10:00 Tubersol, Aplisol, Ppd ID 06/04/18 10:01 X1 ONE Problem List Chest pain (Acute) NSTEMI (non-ST elevated myocardial infarction) (Acute) Coronary artery disease (Chronic) Left ventricular dysfunction (Acute) Diabetes mellitus type 2 in obese (Chronic) Hypertension (Chronic) Hyperlipidemia (Chronic) BPH (benign prostatic hyperplasia) (Chronic) Atrial fibrillation (Chronic) Acute kidney injury (Chronic) GERD (gastroesophageal reflux disease) (Chronic) Vital Signs Temp Pulse Resp BP Pulse Ox 97.4 F L 90 16 107/59 L 93 05/31/18 16:00 05/31/18 17:15 05/31/18 16:00 05/31/18 16:00 05/31/18 16:00 Oxygen Delivery Method Room Air Weight: 94.489 kg Body Mass Index (BMI) 31.3 Sodium 138 mmol/L (136-145) 05/28/18 07:00 Potassium 4.3 mmol/L (3.5-5.1) 05/28/18 07:00 Chloride 106 mmol/L (98-107) 05/28/18 07:00 Carbon Dioxide 23.0 mmol/L (21.0-32.0) 05/28/18 07:00 Anion Gap 9 (5-15) 05/28/18 07:00 BUN 24 mg/dL (7-18) H 05/28/18 07:00 Creatinine 0.79 mg/dL (0.70-1.30) 05/28/18 07:00 Est GFR (MDRD) Af Amer 122 mL/min (>60) 05/28/18 07:00 Est GFR (MDRD) Non-Af 101 mL/min (>60) 05/28/18 07:00 BUN/Creatinine Ratio 30.4 RATIO (10-20) H 05/28/18 07:00 Glucose 131 mg/dL (74-106) H 05/28/18 07:00 Assessment/Plan: Psychotropic Medications: Unnecessary Medications: Bowel Regimen: - Provider Comments Provider responsibility: Provider responsible to enter orders to implement recommendations Provider Comments to Recommendations by Pharmacy: Agree
[2018-05-31 14:52] VITALS: PULSE 78
[2018-05-31 16:00] VITALS: BP 107/59; PULSE 90; RESP 16; TEMP 36.3; O2SAT 93
[2018-05-31 17:15] VITALS: PULSE 90
[2018-05-31] MEDS: Metoprolol(XL)Succ 100 MG Tablet PO (17:15)
--- NOTE | 2018-05-31 17:21 | NURSING ---
pt c/o not sleeping at night, melatonin ineffective. New order for doxepin at hs and d/c melatonin. ok to remove perez in am for voiding trials.
[2018-05-31] MEDS: Atorvastatin Calcium 80 MG Tablet PO (20:38)
[2018-05-31] MEDS: DOXEPIN HCL 50 MG CAPSULE PO (20:38)
[2018-05-31] MEDS: Tamsulosin HCl 0.4 MG Capsule PO (20:38)
[2018-06-01] MEDS: Pantoprazole Sodium 40 MG Tablet PO (06:49)
[2018-06-01] MEDS: Amiodarone 200 MG Tablet PO (06:49)
[2018-06-01] MEDS: Clopidogrel Bisulfate 75 MG Tablet PO (06:49)
[2018-06-01] MEDS: Furosemide 20 MG Tablet PO (06:49)
[2018-06-01] MEDS: Lisinopril 2.5 MG Tablet PO (06:49)
[2018-06-01] MEDS: Enoxaparin 30 MG/0.3 ML Syringe SC (06:51)
[2018-06-01 06:52] VITALS: BP 116/72; PULSE 100
[2018-06-01] MEDS: Metoprolol(XL)Succ 100 MG Tablet PO ×2 (06:52→23:11)
[2018-06-01] MEDS: Menthol/Lanolin/Calamine/Znox 113 GM Tube 1 APPLIC TOPICAL ×3 (06:53→23:12)
[2018-06-01] MEDS: Finasteride 5 MG Tablet PO (06:53)
--- NOTE | 2018-06-01 07:00 | NURSING ---
Cervantes cath removed this AM per order. Pt tolerated well.
[2018-06-01 07:01] LABS: Bedside Glucose 107 mg/dL (70-110)
[2018-06-01] MEDS: Glucerna Shake 120 ML LIQUID PO ×3 (08:41→17:57)
[2018-06-01] MEDS: Aspirin 81 MG TAB.CHEW PO (08:42)
[2018-06-01] MEDS: Multivitamins,Therapeutic Tablet 1 TABLET PO (08:42)
--- NOTE | 2018-06-01 10:34 | CASEMGMT ---
Plan of care meeting held. Resident present as well as resident spouse. No discharge date set at this time. Resident to continue with further care and treatment on the Transitional Care Unit. Resident plans to discharge to home with spouse at time of discharge. Support given. Will continue to follow. Lili BANERJEE, DAY CARE PROVIDER
--- NOTE | 2018-06-01 13:07 | CASEMGMT ---
Brief interview for mental status (BIMS) and resident mood interview (PHQ-9) completed on this day. BIMS score 13/15. PHQ-9 score 12/14
[2018-06-01] MEDS: Diphenoxylate/Atrop 1 Tablet PO (13:35)
--- NOTE | 2018-06-01 15:28 | NURSING ---
pt bladder scanned for 457cc, unable to void. new order to reinsert perez and consult dr martin
[2018-06-01 16:00] VITALS: BP 98/55; PULSE 95; RESP 22; TEMP 36.6; O2SAT 98
--- NOTE | 2018-06-01 16:15 | NURSING ---
AT 1500, MICHAEL REINSERTED BY THIS NURSE, FOR RETENTION. PER EV DUBON. PT TOLERATED WELL.
--- NOTE | 2018-06-01 18:04 | NURSING ---
pt continues with loose stools, lomotil ineffective. new order for questran BID
[2018-06-01 18:06] VITALS: BP 95/59; PULSE 93
[2018-06-01] MEDS: Atorvastatin Calcium 80 MG Tablet PO (23:10)
[2018-06-01 23:11] VITALS: BP 126/66; PULSE 74
[2018-06-01] MEDS: Tamsulosin HCl 0.4 MG Capsule PO (23:11)
[2018-06-01] MEDS: DOXEPIN HCL 50 MG CAPSULE PO (23:11)
[2018-06-02] MEDS: Lisinopril 2.5 MG Tablet PO (05:01)
[2018-06-02] MEDS: Clopidogrel Bisulfate 75 MG Tablet PO (05:01)
[2018-06-02] MEDS: Pantoprazole Sodium 40 MG Tablet PO (05:01)
[2018-06-02] MEDS: Finasteride 5 MG Tablet PO (05:01)
[2018-06-02] MEDS: Enoxaparin 30 MG/0.3 ML Syringe SC (05:01)
[2018-06-02] MEDS: Furosemide 20 MG Tablet PO (05:01)
[2018-06-02] MEDS: Amiodarone 200 MG Tablet PO (05:01)
[2018-06-02 05:02] VITALS: BP 108/55; PULSE 84
[2018-06-02] MEDS: Metoprolol(XL)Succ 100 MG Tablet PO (05:02)
[2018-06-02] MEDS: Menthol/Lanolin/Calamine/Znox 113 GM Tube 1 APPLIC TOPICAL ×3 (05:03→21:01)
[2018-06-02 07:01] LABS: Bedside Glucose 98 mg/dL (70-110)
[2018-06-02] MEDS: Cholestyramine/Sucrose 4 GM/PACKET PO ×2 (07:57→17:21)
[2018-06-02] MEDS: Glucerna Shake 120 ML LIQUID PO ×2 (07:58→11:23)
[2018-06-02] MEDS: Aspirin 81 MG TAB.CHEW PO (07:58)
[2018-06-02] MEDS: Multivitamins,Therapeutic Tablet 1 TABLET PO (07:58)
--- NOTE | 2018-06-02 13:04 | MDS.RN ---
Pain interview for KRISH 06/03/18 completed
[2018-06-02 16:00] VITALS: BP 93/45; PULSE 90; RESP 16; TEMP 36.4; O2SAT 95
[2018-06-02 17:19] VITALS: BP 93/45; PULSE 90
[2018-06-02] MEDS: Atorvastatin Calcium 80 MG Tablet PO (20:58)
[2018-06-02] MEDS: DOXEPIN HCL 50 MG CAPSULE PO (20:58)
[2018-06-02] MEDS: Tamsulosin HCl 0.4 MG Capsule PO (21:00)
[2018-06-03 04:49] VITALS: BP 114/64; PULSE 97
[2018-06-03] MEDS: Enoxaparin 30 MG/0.3 ML Syringe SC (04:49)
[2018-06-03] MEDS: Metoprolol(XL)Succ 100 MG Tablet PO (04:49)
[2018-06-03] MEDS: Finasteride 5 MG Tablet PO (04:50)
[2018-06-03] MEDS: Furosemide 20 MG Tablet PO (04:50)
[2018-06-03] MEDS: Lisinopril 2.5 MG Tablet PO (04:50)
[2018-06-03] MEDS: Clopidogrel Bisulfate 75 MG Tablet PO (04:50)
[2018-06-03] MEDS: Pantoprazole Sodium 40 MG Tablet PO (04:50)
[2018-06-03] MEDS: Amiodarone 200 MG Tablet PO (04:50)
[2018-06-03] MEDS: Menthol/Lanolin/Calamine/Znox 113 GM Tube 1 APPLIC TOPICAL ×3 (04:53→21:21)
[2018-06-03 06:55] LABS: Bedside Glucose 122 mg/dL (70-110)
--- NOTE | 2018-06-03 08:10 | NURSING ---
Pt left with family to appt at [facility].
[2018-06-03 10:00] VITALS: PULSE 93; RESP 20; O2SAT 93
[2018-06-03 16:00] VITALS: BP 72/44; PULSE 95; RESP 20; TEMP 36.4; O2SAT 100
[2018-06-03] MEDS: Cholestyramine/Sucrose 4 GM/PACKET PO (16:56)
[2018-06-03] MEDS: Senna/Docusate Sodium 1 Tablet 2 TABLET PO (17:04)
--- NOTE | 2018-06-03 17:11 | NURSING ---
Pt complaining about feeling contipated Pt requesting senna. This nurse gave Senna Per PRN order. Pt bowel sounds normal with sounds times 4 quadrants. Pt denies pain, just states he feels full. Pt BP 72/41 Metoprolol Help at this time.
--- NOTE | 2018-06-03 17:27 | RAD_ITS ---
STUDY: X-RAY CHEST REASON FOR EXAM: Male, 78 years old. Shortness of breath TECHNIQUE: 2 views COMPARISON: None. FINDINGS: There is mild cardiomegaly with no acute pneumonia or failure but with a small right-sided pleural effusion. Median sternotomy wires are in place. Normal visualized thoracic spine. Normal visualized ribs, clavicles, and shoulders. There is no demonstrated abnormality of the visualized soft tissue structures of the upper abdomen. RAD/Chest PA and Lateral IMPRESSION: Mild cardiomegaly with a small right-sided pleural effusion. No pneumonia. No failure Electronically Signed: Lazaro Allen, at 6:26 EDT Tel , Service support ,
--- NOTE | 2018-06-03 17:28 | NURSING ---
Pt having increased confusion, feelings of having to urinate and bladder spasms. Dr. Ennis updated, NO for cbc, bmp, UA c&s, cxr and kub. Patient updated. Returned from appt at [facility]. States took paperwork home with her and will bring back in morning.
--- NOTE | 2018-06-03 18:40 | RAD_ITS ---
STUDY: X-RAY - ABDOMEN/PELVIS REASON FOR EXAM: Male, 78 years old. Constipation TECHNIQUE: 4 views COMPARISON: May 29, 2018 FINDINGS: The stomach is massively distended with an air-fluid level within it. No small bowel is visualized. Mild fecal stasis in the visualized large bowel. No free intraperitoneal air. Pleural reactive changes in the right lung base. RAD/Abd Inc Decub and/or Erect IMPRESSION: A massively distended stomach with an air-fluid level. Gastric outlet obstruction is suspected Electronically Signed: Lazaro Allen, at 6:45 EDT Tel , Service support ,
--- NOTE | 2018-06-03 19:05 | NURSING ---
Pt BP 72/44 this evening, Dr. Ennis updated, NO to decrease toprol XL to 50mg BID.
[2018-06-03 20:28] LABS: Bacteria 0 SEEN /hpf (None Seen); Mucous, Urine 0 SEEN /hpf (<or=2+); Squamous Epithelial Cells - UA 0 SEEN /hpf (0-5)
[2018-06-03 20:30] LABS: Color, Urine Yellow (Yellow); Glucose, Dipstick Normal (Normal); Ketone-Dipstick 5 mg/dl (Negative); Leukocyte Esterase-Dipstick 100 /ul (Negative); Nitrite-Dipstick Negative (Negative); Occult Blood-Urine 250 /ul (Negative); Protein-Dipstick 500 mg/dl (Negative); Urine Clarity Cloudy (Clear); Urine Urobilinogen Normal (Normal)
[2018-06-03 20:34] LABS: Absolute Lymphocyte Count 1.02 X10^3/ul (0.83-4.51); Absolute Neutrophil Count 8.1 X10^3/uL (2.0-7.7); Basophil# 0.01 X10^3/uL; Basophil% 0.1 % (0-1); Hemoglobin 9.7 g/dl (13.0-16.5); Lymphocyte # 1.02 X10^3/ul (4.0); Lymphocyte % 10.4 % (19-41); Mean Corp Hgb Conc 31.3 g/gl (32-36); Mean Corpuscular Hgb 29.7 pg (27.0-32.0); Mean Corpuscular Volume 94.8 fL (80-94); Mean Platelet Vol. 9.9 fl (6.2-12.0); Monocyte# 0.46 X10^3/uL; Monocyte% 4.7 % (0-10); Neutrophil # 8.09 X10^3/uL (2.7-7.7); Neutrophil % 82.6 % (47-70); POSITIVE COUNT NO; POSITIVE DIFFERENTIAL NO; POSITIVE MORPHOLOGY NO; Platelet Count 168 K/mm3 (150-450); RBC Distribution Width CV 14.5 % (11.6-14.6); RBC Distribution Width SD 49.3 fl (35.1-43.9); Red Blood Count 3.27 M/mm3 (4.6-6.2); White Blood Count 9.8 K/mm3 (4.4-11.0)
[2018-06-03 20:37] LABS: Urine Bilirubin Dipstick 3 mg/dL (Negative)
[2018-06-03 20:49] LABS: Red Blood Cells-Urine 5-10 SEEN /hpf (0-5); White Blood Cells 5-10 SEEN /hpf (0-5)
[2018-06-03 20:50] LABS: Amorphous Sediment 1+
[2018-06-03 20:56] LABS: Anion Gap 8 (5-15); BUN 17 mg/dL (7-18); BUN/Creat Ratio 14.5 RATIO (10-20); Calcium,Total 8.9 mg/dL (8.5-10.1); Chloride 108 mmol/L (98-107); Creatinine, Serum 1.17 mg/dL (0.70-1.30); EST Glomerular Filtration Rate 64 mL/min (>60); Est Glom Filt Rate - Afr Amer 78 mL/min (>60); Estimated Creatinine Clearance 52.03 ml/min; Glucose 118 mg/dL (74-106); Potassium 4.1 mmol/L (3.5-5.1); Sodium Level 143 mmol/L (136-145)
[2018-06-03] MEDS: Atorvastatin Calcium 80 MG Tablet PO (21:21)
[2018-06-03] MEDS: Tamsulosin HCl 0.4 MG Capsule PO (21:21)
[2018-06-03] MEDS: DOXEPIN HCL 50 MG CAPSULE PO (21:21)
--- NOTE | 2018-06-03 21:42 | NURSING ---
Dr Ennis aware of labs and UA results. N.O. to send urine for cx.
[2018-06-04] MEDS: Menthol/Lanolin/Calamine/Znox 113 GM Tube 1 APPLIC TOPICAL (05:32)
[2018-06-04] MEDS: Furosemide 20 MG Tablet PO (05:33)
[2018-06-04] MEDS: Amiodarone 200 MG Tablet PO (05:33)
[2018-06-04] MEDS: Enoxaparin 30 MG/0.3 ML Syringe SC (05:33)
[2018-06-04] MEDS: Pantoprazole Sodium 40 MG Tablet PO (05:34)
[2018-06-04] MEDS: Lisinopril 2.5 MG Tablet PO (05:34)
[2018-06-04] MEDS: Finasteride 5 MG Tablet PO (05:34)
[2018-06-04] MEDS: Clopidogrel Bisulfate 75 MG Tablet PO (05:34)
[2018-06-04 05:35] VITALS: BP 115/70; PULSE 100
[2018-06-04] MEDS: Metoprolol(XL)Succ 50 MG Tablet PO (05:35)
[2018-06-04] MEDS: Polyethylene Glycol 3350 17 GM PACKET PO (05:40)
[2018-06-04 07:05] LABS: Absolute Lymphocyte Count 0.92 X10^3/ul (0.83-4.51); Absolute Neutrophil Count 7.2 X10^3/uL (2.0-7.7); Basophil# 0.01 X10^3/uL; Basophil% 0.1 % (0-1); Eosinophil# 0.17 X10^3/uL; Hematocrit 31.6 % (40-54); Hemoglobin 9.9 g/dl (13.0-16.5); Lymphocyte # 0.92 X10^3/ul (4.0); Lymphocyte % 10.6 % (19-41); Mean Corp Hgb Conc 31.3 g/gl (32-36); Mean Corpuscular Hgb 30.2 pg (27.0-32.0); Mean Corpuscular Volume 96.3 fL (80-94); Mean Platelet Vol. 9.7 fl (6.2-12.0); Monocyte# 0.42 X10^3/uL; Monocyte% 4.8 % (0-10); Neutrophil # 7.15 X10^3/uL (2.7-7.7); Neutrophil % 82.3 % (47-70); Platelet Count 162 K/mm3 (150-450); RBC Distribution Width CV 14.2 % (11.6-14.6); RBC Distribution Width SD 47.7 fl (35.1-43.9); Red Blood Count 3.28 M/mm3 (4.6-6.2); White Blood Count 8.7 K/mm3 (4.4-11.0)
[2018-06-04 07:06] LABS: POSITIVE COUNT NO; POSITIVE DIFFERENTIAL NO; POSITIVE MORPHOLOGY NO
[2018-06-04 07:11] LABS: Bedside Glucose 121 mg/dL (70-110)
[2018-06-04 07:29] LABS: Anion Gap 8 (5-15); BUN 15 mg/dL (7-18); BUN/Creat Ratio 15.9 RATIO (10-20); Calcium,Total 8.8 mg/dL (8.5-10.1); Chloride 107 mmol/L (98-107); Creatinine, Serum 0.94 mg/dL (0.70-1.30); EST Glomerular Filtration Rate 82 mL/min (>60); Est Glom Filt Rate - Afr Amer 99 mL/min (>60); Estimated Creatinine Clearance 64.77 ml/min; Glucose 131 mg/dL (74-106); Potassium 3.8 mmol/L (3.5-5.1); Sodium Level 140 mmol/L (136-145)
[2018-06-04] MEDS: Cholestyramine/Sucrose 4 GM/PACKET PO (09:30)
[2018-06-04] MEDS: Multivitamins,Therapeutic Tablet 1 TABLET PO (09:30)
[2018-06-04] MEDS: Aspirin 81 MG TAB.CHEW PO (09:30)
[2018-06-04 10:00] VITALS: PULSE 105; RESP 20; O2SAT 97
--- NOTE | 2018-06-04 12:30 | NURSING ---
1200 DR Santos notified of consult order for gastric outlet obstruction, new order to insert NG tube, make pt NPO except sips/chips.
--- NOTE | 2018-06-04 13:00 | NURSING ---
attempted to insert 16fr NG tube in rt nare & unsuccessful. Norman, RN buildings and grounds supervisor.
--- NOTE | 2018-06-04 13:14 | RAD_ITS ---
STUDY: X-RAY - ABDOMEN/PELVIS REASON FOR EXAM: Male, 78 years old. NG tube placement TECHNIQUE: June 03, 2018 COMPARISON: None. FINDINGS: There is a nasogastric tube in place with its tip within the expected region of the distal esophagus. There are sternotomy wires in place. There is extensive gastric distention of the visualized stomach. Normal soft tissue structures. There are diffuse degenerative changes of the visualized lumbar spine. RAD/Abdomen Single View IMPRESSION: Nasogastric tube terminating within the expected region of the distal esophagus, recommend advancement of tube by approximately 9.5 cm. Persistent extensive gastric distention, may be secondary to a gastric outlet obstruction. Electronically Signed: Pamela Murrell MD at 15:05 EDT Tel , Service support ,
--- NOTE | 2018-06-04 13:35 | NURSING ---
Addendum entered by Monika Edgardo Moreno 06/04/18 16:16: Dr Santos called and pt going to endo for removal of NG tube by DR oRgers, tube lodged in nasal pharyx. Dr Gupta will be doing upper GI & new NG tube this evening. Original Note: Addendum entered by Monika Reynoso Moreno 06/04/18 15:34: Results show tube coiled, Dr Santso here and tried removing to place new tube. Unable to remove, Dr Santos consulted ENT MD. Pt down to xray again per ENT MD request. Awaiting results Original Note: RN truck repair supervisor notified, 16 FR NG tube placed, pt tolerated well. no gastric fluid with syringe, radiology notified of stat abd xray. awaiting results
--- NOTE | 2018-06-04 15:10 | RAD_ITS ---
STUDY: X-RAY - SOFT TISSUE NECK REASON FOR EXAM: Male, 78 years old. For location of kinked nasogastric tube. TECHNIQUE: 2 view(s) of the neck were obtained. COMPARISON: None. FINDINGS: Nasogastric tube is coiled in the nasopharynx and nasal airway. It is projected over the maxillary sinuses on the lateral view. It does not extend to the hypopharynx. Normal visualized oropharynx, hypopharynx. Normal epiglottis. Normal visualized subglottic tracheal air column. Normal prevertebral soft tissue structures. Normal visualized osseous structures. RAD/Neck for Soft Tissue IMPRESSION: NG tube is coiled in the nasopharynx and should be removed. Electronically Signed: Hillary Stephens MD at 16:17 EDT Tel , Service support ,
--- NOTE | 2018-06-04 15:23 | NURSING ---
Carrie, daughter updated and on way in. notified and will be in after mormon to play organ, since daughter able to be here
[2018-06-04 15:40] VITALS: BP 114/65; PULSE 103; RESP 20; TEMP 36.8; O2SAT 95
--- NOTE | 2018-06-04 15:41 | PCM.CONS.GEN ---
Problem List (1) Encounter for nasogastric (NG) tube placement Status: Acute (2) Gastric outlet obstruction Status: Acute Reason for Consult Date of Consultation: 06/04/18 History of Present Illness: The patient is a 78 year old M who was admitted to the transitional care unit here at the [facility] on May 27, 2018. The patient had incurred a non-ST segment elevation MS. He was admitted to [facility] and then transferred to [facility]. His preintervention ejection fraction was 2025%. He underwent coronary bypass grafting ?5 on May 13. Postoperatively echocardiogram suggested ejection fraction 33%. Is of additional note that on May [address] a Cervantes catheter because of acute urinary retention. The patient apparently on May 29 because of diffuse diarrhea had abdominal x-ray showing massive gastric distention consistent with gastric outlet obstruction. The best I can tell he was still being offered a regular diet. On June 03 now because of constipation a repeat abdominal x-ray was obtained again demonstrating massive gastric distention. There was no bowel movement yet today so consult was placed by for a surgical consultation and a written copy of my surgical consult will return to him. I requested that an NG tube be placed. On my arrival and inspection the patient's NG tube was tightly kinked in the distal esophagus and was not in the stomach. I personally attempted to withdraw it however it would not withdraw causing the patient gagging and discomfort in the hypopharynx. I elected to stop that process. There had not been aggressive withdrawal on the tube. I contacted anesthesia Dr. Grant Ochoa and ENT Dr. Nikhil Rogers. I also contacted Dr. Herminio Gupta. At this point the patient will be moved from the TCU to the inpatient side so that he can have under sedation removal of this damaged NG tube in a safe fashion transorally and then anticipated upper endoscopy by Dr. Gupta for inspection of the e.g. junction for guided placement of an NG tube with possible inspection regarding the patient's gastric outlet obstruction. In addition to his other medications the patient is on ciprofloxacin for chronic urinary tract infection. Aspirin and clopidogrel because of the recent myocardial infarction and coronary bypass surgery. Is on Lovenox. Because the patient is very pain intolerant he is on oxycodone. For the diarrhea he has been treated with Lomotil. He has been treated with MiraLAX because of the constipation. He is on oral Protonix. He states that he has never had previous abdominal surgery. He states that he had a colonoscopy approximately 3 years ago done in [facility] by Dr. Jonnathan Bolden and that he was told it was fine. Past Medical History Past Medical History (Chronic Problems): Chronic Problems Coronary artery disease (Chronic) Diabetes mellitus type 2 in obese (Chronic) Hypertension (Chronic) Hyperlipidemia (Chronic) BPH (benign prostatic hyperplasia) (Chronic) Atrial fibrillation (Chronic) Acute kidney injury (Chronic) GERD (gastroesophageal reflux disease) (Chronic) Allergies No Known Allergies Allergy (Verified 05/27/18 17:09) Home Medications: Ambulatory Orders Medication Instructions Recorded Acetaminophen 650 mg PO Q4H 05/27/18 Amiodarone HCl [Pacerone] 200 mg PO DAILY 05/27/18 Aspirin 81 mg PO DAILY 05/27/18 Atorvastatin Calcium 80 mg PO QHS 05/27/18 Clopidogrel Bisulfate [Plavix] 75 mg PO DAILY 05/27/18 Enoxaparin [Lovenox] 30 mg SC DAILY@0600 05/27/18 Finasteride [Proscar] 5 mg PO DAILY 05/27/18 Furosemide [Lasix] 20 mg PO DAILY 05/27/18 Lisinopril [Zestril] 2.5 mg PO DAILY 05/27/18 Melatonin 3 mg PO QHS 05/27/18 Metformin HCl [Glucophage] 500 mg PO BIDCM 05/27/18 Metoprolol Succinate 100 mg PO BID 05/27/18 Multivitamin,Therapeutic [Thera] 1 each PO DAILY 05/27/18 Ondansetron [Zofran Odt] 4 mg PO Q6H PRN PRN 05/27/18 Oxycodone [Oxyir] 5 mg PO Q6H PRN PRN 05/27/18 Pantoprazole Sodium [Protonix] 40 mg PO DAILY 05/27/18 Tamsulosin HCl [Flomax] 0.4 mg PO QHS 05/27/18 Surgical History: coronary bypass surgery - X 5. Psychiatric History: No pertinent psych hx Lives: Spouse/ Significant Other Smoking Status: Former smoker Tobacco Use: Cigars Alcohol: None Drugs: None - *Family History Maternal History Items: No pertinent history Paternal History Items: No pertinent history Review of Systems Constitutional: Reports: Anorexia, Malaise, Weakness HEENT: Reports: Difficulty Hearing, Difficulty Swallowing Cardiovascular: Denies: Chest Pain Respiratory: Reports: Cough Gastrointestinal: Reports: Constipation, Diarrhea. Denies: Vomiting Genitourinary: Reports: Retention Psychiatric: Reports: - - The patient states that he is very pain adverse and wants plenty of sedation Patient Problems: Active and Suspected Problems Chest pain (Acute) NSTEMI (non-ST elevated myocardial infarction) (Acute) Left ventricular dysfunction (Acute) Encounter for nasogastric (NG) tube placement (Acute) Gastric outlet obstruction (Acute) - Physical Exam General: Alert, Cooperative, No apparent distress HEENT: Atraumatic Oral: Moist Mucosa Neck: Supple Lungs: - - Diminished breath sounds bilateral bases Cardiovascular: - - Irregular Abdomen: Soft - Massively distended, hypoactive bowel sounds, no focal mass, no tenderness Extremities: Edema Neurological: - - Patient is alert and aware of his situation and place, hard of hearing Psych/Mental Status: Normal Affect Vital Signs Temp Pulse Resp BP Pulse Ox 97.5 F L 100 20 H 115/70 100 06/03/18 16:00 06/04/18 05:35 06/03/18 16:00 06/04/18 05:35 06/03/18 16:00 Oxygen Delivery Method Room Air Weight: 204 lb 6 oz Body Mass Index (BMI) 31.3 Intake and Output for Last 24 Hours 06/02/18 06/03/18 06/04/18 23:59 23:59 23:59 Intake Total 1020 / 1020 750 / 750 453 / 453 Output Total 2275 / 2275 1125 / 1125 900 / 900 Balance -1255 / -1255 -375 / -375 -447 / -447 Microbiology Past 72 Hours 06/03/18 20:20 Urine Culture - Preliminary Urine Catheter - Cervantes GPC Poss Enterococcus sp Laboratory Tests Past 24 Hrs 06/03/18 06/03/18 06/03/18 20:06 20:06 20:20 WBC 9.8 RBC 3.27 L Hgb 9.7 L Hct 31.0 L MCV 94.8 H MCH 29.7 MCHC 31.3 L RDW 14.5 RDW Differential 49.3 H Plt Count 168 MPV 9.9 Immature Gran % (Auto) 0.200 Neut % (Auto) 82.6 H Lymph % (Auto) 10.4 L [place] % (Auto) 4.7 Eos % (Auto) 2.0 Baso % (Auto) 0.1 Absolute Neuts (auto) 8.1 H Absolute Lymphs (auto) 1.02 Total Counted Not Reportable Sodium 143 Potassium 4.1 Chloride 108 H Carbon Dioxide 27.0 Anion Gap 8 BUN 17 Creatinine 1.17 Estim Creat Clear Calc 52.03 Est GFR (MDRD) Af Amer 78 Est GFR (MDRD) Non-Af 64 BUN/Creatinine Ratio 14.5 Glucose 118 H Calcium 8.9 Urine Color Yellow Urine Clarity Cloudy Urine pH 5.0 Ur Specific [place] 1.020 Urine Protein 500 H Urine Glucose (UA) Normal Urine Ketones 5 H Urine Occult Blood 250 H Urine Nitrite Negative Urine Bilirubin 3 H Urine Urobilinogen Normal Ur Leukocyte Esterase 100 H Urine RBC 5-10 SEEN Urine WBC 5-10 SEEN Ur Squamous Epith Cells 0 SEEN Amorphous Sediment 1+ Urine Bacteria 0 SEEN Urine Mucus 0 SEEN 06/04/18 06/04/18 06:30 06:30 WBC 8.7 RBC 3.28 L Hgb 9.9 L Hct 31.6 L MCV 96.3 H MCH 30.2 MCHC 31.3 L RDW 14.2 RDW Differential 47.7 H Plt Count 162 MPV 9.7 Immature Gran % (Auto) 0.200 Neut % (Auto) 82.3 H Lymph % (Auto) 10.6 L [place] % (Auto) 4.8 Eos % (Auto) 2.0 Baso % (Auto) 0.1 Absolute Neuts (auto) 7.2 Absolute Lymphs (auto) 0.92 Total Counted Not Reportable Sodium 140 Potassium 3.8 Chloride 107 Carbon Dioxide 25.0 Anion Gap 8 BUN 15 Creatinine 0.94 Estim Creat Clear Calc 64.77 Est GFR (MDRD) Af Amer 99 Est GFR (MDRD) Non-Af 82 BUN/Creatinine Ratio 15.9 Glucose 131 H Calcium 8.8 Urine Color Urine Clarity Urine pH Ur Specific [place] Urine Protein Urine Glucose (UA) Urine Ketones Urine Occult Blood Urine Nitrite Urine Bilirubin Urine Urobilinogen Ur Leukocyte Esterase Urine RBC Urine WBC Ur Squamous Epith Cells Amorphous Sediment Urine Bacteria Urine Mucus POC Glucose 06/04/18 06:51 POC Glucose 121 H Assessment/Plan All Active Problems Chest pain (Acute) NSTEMI (non-ST elevated myocardial infarction) (Acute) Left ventricular dysfunction (Acute) Encounter for nasogastric (NG) tube placement (Acute) Gastric outlet obstruction (Acute) In an attempt to relieve the patient's massively distended stomach and NG tube placed was placed by nursing. Unfortunately this is led to a complication with a tightly kinked NG tube that cannot be withdrawn transnasally. It will require sedation and removal via a transoral route. Dr. Nikhil Flowers has agreed to facilitate that removal. The patient however will still need an NG tube to be position. There is concern that there is a potential obstruction at the e.g. junction in addition to the patient's suspected gastric outlet obstruction. Dr. Gupta then will perform a esophagogastroduodenoscopy with hopeful guided placement of a correct NG tube. I performed the consultation and Dr. Gupta's brief absence. Time of my involvement with coordination of multiple physicians including Dr. Flowers and Dr. Gupta and Dr. Grant Ochoa and as well as seeing the patient has been 2 hours. I have kept the patient informed as well as nursing staff informed during this time. I have facilitated transfer from the TCU to the inpatient service. Parish Santos M.D., F.A.C.S.
--- NOTE | 2018-06-04 16:50 | NURSING ---
pt off unit to ENDO via bed
--- NOTE | 2018-06-04 19:31 | DCINST_ITS ---
- Discharge Diagnoses Current Active Problems: Current Active and Chronic Problems NG tube kinked (Acute) Gastric distention (Acute) You will use the following diet at home:: Clear liquid Your liquids should be the consistency of: Regular/Thin Discharge Activity: Return to Normal Activity, Use Walker Weight Bearing Status: Weight bearing as tolerated Call your doctor if you observe: Fever of 101 or Higher, Inability to urinate, Inability to have a bowel movement, Shortness of breath, Chest pain, Uncontrolled pain Allergies/Adverse Reactions: Allergies No Known Allergies Allergy (Verified 05/27/18 17:09) Medications to take at Discharge Acetaminophen 650 mg PO Q4H 05/27/18 Amiodarone HCl [Pacerone] 200 mg PO DAILY 05/27/18 Aspirin 81 mg PO DAILY 05/27/18 Atorvastatin Calcium 80 mg PO QHS 05/27/18 Clopidogrel Bisulfate [Plavix] 75 mg PO DAILY 05/27/18 Enoxaparin [Lovenox] 30 mg SC DAILY@0600 05/27/18 Finasteride [Proscar] 5 mg PO DAILY 05/27/18 Furosemide [Lasix] 20 mg PO DAILY 05/27/18 Lisinopril [Zestril] 2.5 mg PO DAILY 05/27/18 Melatonin 3 mg PO QHS 05/27/18 Metformin HCl [Glucophage] 500 mg PO BIDCM 05/27/18 Metoprolol Succinate 100 mg PO BID 05/27/18 Multivitamin,Therapeutic [Thera] 1 each PO DAILY 05/27/18 Ondansetron [Zofran Odt] 4 mg PO Q6H PRN PRN 05/27/18 Oxycodone [Oxyir] 5 mg PO Q6H PRN PRN 05/27/18 Pantoprazole Sodium [Protonix] 40 mg PO DAILY 05/27/18 Tamsulosin HCl [Flomax] 0.4 mg PO QHS 05/27/18 Test Results: Test results from this visit will be discussed in further detail at your follow- up appointment, if applicable. Please Follow Up With: ARTEM ACEVEDO (cancelled on 05/31) When: [facility] Please Follow Up With: DEIDRE CABRAL NP (cardiology) Please Follow Up With: Cardiology appt Proposed Discharge Date: 06/04/18
--- NOTE | 2018-06-04 19:36 | DS.PCM_ITS ---
Discharge Date and Diagnosis - Problem List Patient Problems: Active and Suspected Problems NG tube kinked (Acute) Gastric distention (Acute) Date of Admission: 05/27/18 Date of Discharge: 06/04/18 - Primary Discharge Diagnosis Active and Suspected Problems NG tube kinked (Acute) Gastric distention (Acute) - Secondary Discharge Diagnosis Chronic Problems NSTEMI (non-ST elevated myocardial infarction) (Chronic) Coronary artery disease (Chronic) 5 vessel CABG on 05/13/2018 Left ventricular dysfunction (Chronic) Diabetes mellitus type 2 in obese (Chronic) Hypertension (Chronic) Hyperlipidemia (Chronic) BPH (benign prostatic hyperplasia) (Chronic) Atrial fibrillation (Chronic) Acute kidney injury (Chronic) GERD (gastroesophageal reflux disease) (Chronic) Hospital Course and Treatment Imaging Results: 06/04/18 13:14 Abdomen Single View [RAD] Stat 06/04/18 15:10 Neck for Soft Tissue [RAD] Urgent Operations: None Procedures: EGD Summary of Care Provided: The patient is a 78 year old Male with below past medical history hospitalized for chest pain, NSTEMI, underwent CABG x 5 05/13/2018, complicated by atrial fibrillation, acute kidney injury, admitted to TCU with debility, here for rehabilitation, strengthening, prior to discharge home with spouse. 06/03/2018 Resident noted to have mental status change, evaluation was started, X -ray abdomen showed distended stomach concerning for gastric outlet obstruction. NG placed, but coiled, kinked. Dr. Rogers removed the NG, then placed a new one. EGD per Dr. Gupta did not show any cause of gastric outlet obstruction. Resident may need gastric emptying test to evaluate for gastroparesis, prescription of metoclopramide for short term use. Discharge to [facility]. Discharge Diet: Light diet - advance as tolerated Discharge Activity: Return to Normal Activity, Use Walker Weight Bearing Status: Weight bearing as tolerated Call your doctor if you observe: Fever of 101 or Higher, Inability to urinate, Inability to have a bowel movement, Shortness of breath, Chest pain, Uncontrolled pain Home Medications: Medications to take at Discharge Acetaminophen 650 mg PO Q4H 05/27/18 Amiodarone HCl [Pacerone] 200 mg PO DAILY 05/27/18 Aspirin 81 mg PO DAILY 05/27/18 Atorvastatin Calcium 80 mg PO QHS 05/27/18 Clopidogrel Bisulfate [Plavix] 75 mg PO DAILY 05/27/18 Enoxaparin [Lovenox] 30 mg SC DAILY@0600 05/27/18 Finasteride [Proscar] 5 mg PO DAILY 05/27/18 Furosemide [Lasix] 20 mg PO DAILY 05/27/18 Lisinopril [Zestril] 2.5 mg PO DAILY 05/27/18 Melatonin 3 mg PO QHS 05/27/18 Metformin HCl [Glucophage] 500 mg PO BIDCM 05/27/18 Metoprolol Succinate 100 mg PO BID 05/27/18 Multivitamin,Therapeutic [Thera] 1 each PO DAILY 05/27/18 Ondansetron [Zofran Odt] 4 mg PO Q6H PRN PRN 05/27/18 Oxycodone [Oxyir] 5 mg PO Q6H PRN PRN 05/27/18 Pantoprazole Sodium [Protonix] 40 mg PO DAILY 05/27/18 Tamsulosin HCl [Flomax] 0.4 mg PO QHS 05/27/18 Please Follow Up With: ARTEM ACEVEDO (cancelled on 05/31) When: [facility] Please Follow Up With: DEIDRE CABRAL NP (cardiology) Please Follow Up With: Cardiology appt Disposition: Acute care Hospital Minutes spent on discharge:: 30 Patient Condition:: Stable Medical Necessity - Tobacco Use Smoking Status: Former smoker Tobacco Use: Cigars Meaningful Use Info Meaningful Use Diagnoses (Choose all that apply): None applicable
--- NOTE | 2018-06-09 13:15 | MDS.RN ---
Information for the mds was obtained from review of the clinical record, interview of resident, staff, and direct observation of resident's care.
== END 2018-06-04 16:56 | disposition short-term general hospital (02) | DRG 949 ==
PROVIDERS: Admitting Provider Family Medicine Geriatric Medicine; Visit Provider Family Medicine Geriatric Medicine
DX: Z48.812 Encounter for surgical aftercare following surgery on the circulatory system (principal); I21.4 Non-ST elevation (NSTEMI) myocardial infarction; N17.9 Acute kidney failure, unspecified; K31.1 Adult hypertrophic pyloric stenosis; Z95.1 Presence of aortocoronary bypass graft; K21.9 Gastro-esophageal reflux disease without esophagitis; N40.0 Benign prostatic hyperplasia without lower urinary tract symptoms; E78.5 Hyperlipidemia, unspecified; I25.10 Atherosclerotic heart disease of native coronary artery without angina pectoris; I10 Essential (primary) hypertension; I48.2 Chronic atrial fibrillation; Z87.891 Personal history of nicotine dependence; E11.9 Type 2 diabetes mellitus without complications; K94.29 Other complications of gastrostomy; Y83.8 Other surgical procedures as the cause of abnormal reaction of the patient, or of later complication, without mention of misadventure at the time of the procedure
CPT/HCPCS: 36415; 70360; 71046; 74018; 74019; 80048; 81001; 82962; 85025; 87077; 87086; 87088; 87186; 97110; 97116; 97162; 97167; 97530; 97535

== ENCOUNTER 2018-06-04 17:10 | Inpatient (IN) | payer MEDICARE, OTHER, SELFPAY ==
[2018-06-04] VITALS (9 sets, daily range): BP systolic 109–123; BP diastolic 68–78; PULSE 100–106; RESP 17–20; TEMP 36.2–37.1; O2SAT 93–100; BMI 29.9
--- NOTE | 2018-06-04 17:06 | HP.PCM_ITS ---
Problem List (1) NG tube kinked Status: Acute (2) Gastric distention Status: Acute (3) Chest pain Status: Acute (4) NSTEMI (non-ST elevated myocardial infarction) Status: Chronic (5) Coronary artery disease Status: Chronic Qualifiers: [place] vs. transplanted heart: [place] heart Comment: 5 vessel CABG on 05/13/2018 (6) Left ventricular dysfunction Status: Chronic (7) Diabetes mellitus type 2 in obese Status: Chronic (8) Hypertension Status: Chronic (9) Hyperlipidemia Status: Chronic (10) BPH (benign prostatic hyperplasia) Status: Chronic (11) Atrial fibrillation Status: Chronic (12) Acute kidney injury Status: Chronic (13) GERD (gastroesophageal reflux disease) Status: Chronic (14) Encounter for nasogastric (NG) tube placement Status: Acute (15) Gastric outlet obstruction Status: Acute History of Present Illness Date of Admission: 06/04/18 Chief Complaint: NG tube kinked/misplaced The patient is a 78 year old M with multiple comorbidities including coronary artery disease status post 5 vessel CABG in [facility] on 05/13/2018, postoperative transient A. fib, EF 33% suggestive of chronic systolic heart failure, acute kidney injury resolved to directly admitted on floor after EGD procedure done for kinked/misplaced NG tube. I was called by Dr. Santos to admit the patient. Earlier Dr. Santos was called for NG tube misplacement. Patient has a history of obstruction for which KUB was done which shows massive gastric distention. Patient did not had bowel movement for 3 days until today. Neurosurgery was consulted for that and Dr. Santos requested NG tube. Later on is found to NG tube was tightly kinked and found to be in nasopharynx as per x-ray. It was not able to be removed therefore patient was moved to endoscopy suite where Dr. Rogers and Dr. Gupta eventually saw the patient. NG tube was removed and he had EGD which shows gastric distention with retained fluid but no gastric outlet obstruction and was able to reach and duodenum. GE junction was widely patent. [] Patient is further admitted on the floor with NG tube placed. Past Medical History Past Medical History (Chronic Problems): Chronic Problems NSTEMI (non-ST elevated myocardial infarction) (Chronic) Coronary artery disease (Chronic) 5 vessel CABG on 05/13/2018 Left ventricular dysfunction (Chronic) Diabetes mellitus type 2 in obese (Chronic) Hypertension (Chronic) Hyperlipidemia (Chronic) BPH (benign prostatic hyperplasia) (Chronic) Atrial fibrillation (Chronic) Acute kidney injury (Chronic) GERD (gastroesophageal reflux disease) (Chronic) Allergies No Known Allergies Allergy (Verified 05/27/18 17:09) Home Medications: Ambulatory Orders Medication Instructions Recorded Acetaminophen 650 mg PO Q4H 05/27/18 Amiodarone HCl [Pacerone] 200 mg PO DAILY 05/27/18 Aspirin 81 mg PO DAILY 05/27/18 Atorvastatin Calcium 80 mg PO QHS 05/27/18 Clopidogrel Bisulfate [Plavix] 75 mg PO DAILY 05/27/18 Enoxaparin [Lovenox] 30 mg SC DAILY@0600 05/27/18 Finasteride [Proscar] 5 mg PO DAILY 05/27/18 Furosemide [Lasix] 20 mg PO DAILY 05/27/18 Lisinopril [Zestril] 2.5 mg PO DAILY 05/27/18 Melatonin 3 mg PO QHS 05/27/18 Metformin HCl [Glucophage] 500 mg PO BIDCM 05/27/18 Metoprolol Succinate 100 mg PO BID 05/27/18 Multivitamin,Therapeutic [Thera] 1 each PO DAILY 05/27/18 Ondansetron [Zofran Odt] 4 mg PO Q6H PRN PRN 05/27/18 Oxycodone [Oxyir] 5 mg PO Q6H PRN PRN 05/27/18 Pantoprazole Sodium [Protonix] 40 mg PO DAILY 05/27/18 Tamsulosin HCl [Flomax] 0.4 mg PO QHS 05/27/18 Surgical History: coronary bypass surgery - X 5. Psychiatric History: No pertinent psych hx Smoking Status: Former smoker - *Family History Maternal History Items: No pertinent history Paternal History Items: No pertinent history Review of Systems Constitutional: Denies: Chills, Fever, Weight Change HEENT: Denies: Head Aches, Sinus Congestion, Sinus Drainage Cardiovascular: Reports: - - Recent CABG. Denies: Chest Pain, Palpitations Respiratory: Denies: Cough, Shortness of breath at rest, Sputum production Gastrointestinal: Reports: Constipation. Denies: Abdominal Pain, Diarrhea, Hematemesis, Hematochezia, Nausea, Vomiting Genitourinary: Denies: Dysuria Musculoskeletal: Denies: Joint Pain, Joint Tenderness Skin: Denies: Rash, Wounds Neurological: Denies: Numbness, Tingling, Focal weakness Psychiatric: Denies: Anxiety, Depression, Homicidal Ideations, Suicidal Ideations Hematologic/ Lymphatic: Denies: Easy Bruising, Easy Bleeding VTE Information - Inpt Only VTE Present on Admission: No VTE Mechan Device Prophylaxis: None VTE Pharm Prophylaxis ordered?: Yes Patient Problems: Active and Suspected Problems NG tube kinked (Acute) Gastric distention (Acute) - Physical Exam General: Alert, Oriented x3, Cooperative HEENT: Atraumatic, PERRLA, EOMI, Normocephalic Neck: Supple, No JVD, Negative Carotid Bruits Lungs: Clear to auscultation, Normal air movement Cardiovascular: Regular rate, Regular Rhythm, Normal S1, Normal S2, No murmurs, - - CABG scar is healing well Abdomen: Bowel Sounds Present, Soft, Non Tender, - - Gastric distention, tympanic percussion Extremities: No edema, Capillary Refill Less than 3 Seconds Skin: No rashes, No breakdown Musculoskeletal: No Tenderness to Palpation of Joints or Extremities, Arthritic Changes Neurological: Cranial nerves II-XII grossly intact Psych/Mental Status: Normal Affect, Appropriate Assessment/Plan All Active Problems Chest pain (Acute) Encounter for nasogastric (NG) tube placement (Acute) Gastric outlet obstruction (Acute) NG tube kinked (Acute) Gastric distention (Acute) The patient is a 78 year old M with multiple comorbidities including coronary artery disease status post 5 vessel CABG in [facility] on 05/13/2018, postoperative transient A. fib, EF 33% suggestive of chronic systolic heart failure, acute kidney injury resolved to directly admitted on floor after EGD procedure done for kinked/misplaced NG tube. I was called by Dr. Santos to admit the patient. Earlier Dr. Santos was called for NG tube misplacement. Patient has a history of obstruction for which KUB was done which shows massive gastric distention. Patient did not had bowel movement for 3 days until today. Neurosurgery was consulted for that and Dr. Santos requested NG tube. Later on is found to NG tube was tightly kinked and found to be in nasopharynx as per x-ray. It was not able to be removed therefore patient was moved to endoscopy suite where Dr. Rogers and Dr. Gupta eventually saw the patient. NG tube was removed and he had EGD which shows gastric distention with retained fluid but no gastric outlet obstruction and was able to reach and duodenum. GE junction was widely patent. [] Patient is further admitted on the floor with NG tube placed. 1. NG tube kinked/misplaced status post EGD and removed: Discussed with Dr. Gupta. Patient had NG tube placed. [facility]. Keep the patient n.p.o. today. IV fluid normal saline. Recent labs from 06/04/2018 reviewed. Hemoglobin 9.9. Platelet count 262 stable. 2. Acute gastric distention; exact etiology unclear: GE junction was widely patent. Gastric distention was found but no gastric outlet obstruction. Coronary artery status post 5 vessel CABG, chronic systolic heart failure with EF 33%, transient postoperative A. fib: Stable. Continue cardiac medications. 3. GERD with reflux symptoms, chronic constipation: Started on bowel regimen. NG tube for gastrics decompression. Can be removed tomorrow. On PPI. 4. Recent history of acute kidney injury on 05/22/2018: Resolved. UA from 2017 shows WBC 5-10 cells, RBC 5-10 cells, small LE 100 nitrite negative. Fresh UA ordered. Results pending. Patient also had acute kidney injury for which leader writer was consulted on May 22, 2018. Creatinine was 2.2 at that time and nephrotoxic medications were held. Currently creatinine is 0. 9 , BUN 15 electrolytes within normal limit. As per Dr. Ennis note, patient urine culture grew 10-50,000 multiple organisms on 05/21/2018 and ID was consulted on 05/23/2018 for leukocytosis who recommended stopping all antibiotics. Prior to that he had urinary retention and indwelling Cervantes catheter was placed on on May 09, 2018 and Bactrim was started for presumptive UTI. DVT prophylaxis: On Lovenox 40 mg subcu daily. Laboratory Results 06/04/18 17:41: Urine Color Yellow, Urine Clarity Clear, Urine pH 5.0, Ur Specific [place] 1.015, Urine Protein 30 H, Urine Glucose (UA) Normal, Urine Ketones Negative, Urine Occult Blood 25 H, Urine Nitrite Negative, Urine Bilirubin Negative, Urine Urobilinogen Normal, Ur Leukocyte Esterase 100 H, Urine RBC Pending, Urine WBC Pending, Ur Squamous Epith Cells Pending, Urine Bacteria Pending, Urine Mucus Pending Code Visit Inpatient E&M: 07032 Subs Hosp L3
--- NOTE | 2018-06-04 17:44 | PCM.OPRPT ---
Report of Operation Date of Procedure: 06/04/18 Pre-Operative Diagnosis: Gastric outlet obstruction Post-Operative Diagnosis: Gastroparesis Surgery/Procedure Performed:: Esophagogastroduodenoscopy with confirmation of NG tube placement Type of Anesthesia:: MAC Anesthesiologist: Grant Ochoa Specimen's removed: None Estimated Blood Loss (mL): < 5 cc Description of Procedure: Patient was brought into the endoscopy suite. Back of his throat was sprayed with Cetacaine spray in each nostril was sprayed with Cetacaine spray while the patient was supine Dr. Rogers was able to remove the NG tube that was located enlarged and the nasal cavity with some light sedation. Once this was done a bite block was placed and the patient was placed in the left lateral decubitus position. I took an Olympus scope went in the oropharynx there was some slight blood identified easily traversed into the esophagus GE junction was widely patent into a distended stomach with a small amount of retained fluid in the dependent portion of the stomach and then easily through the pylorus and into the second part of the duodenum without any difficulty whatsoever operative findings: 1. Duodenum: Normal appearance no mass lesions no ulcerations widely patent pylorus 2. Stomach greatly distended stomach retained liquid and chunky food boluses in the dependent part of the stomach was unable to visualize the GE junction from the stomach secondary to this. 3. Esophagus: Normal esophagus GE junction was widely patent without signs of any esophagitis or mass lesions. Dr. Rogers was then able to place an NG tube through the left nares down the oropharynx into the stomach I went back down and confirmed that the NG tube was located in the stomach and it was not curled. I took my time coming out to make sure that we did not dislodge the NG tube. It was taped in place in the nose. I believe the NG tube in appropriate think tonight for decompression of the stomach to give the patient some relief. Once he starts passing flatus I think removal of the NG tube would be appropriate. Starting on clears to make sure he tolerates this without a stomach getting greatly distended again. At some point he probably would benefit from a gastric emptying study to make sure that everything is functioning appropriately. - Admit VTE Documentation VTE Present on Admission: No VTE Mechan Device Prophylaxis: None VTE Pharm Prophylaxis ordered?: No Reason prophylaxis not ordered:: Treatment Not Indicated
[2018-06-04 17:49] LABS: Mucous, Urine 0 SEEN /hpf (<or=2+); Red Blood Cells-Urine 0 SEEN /hpf (0-5); Squamous Epithelial Cells - UA 0 SEEN /hpf (0-5)
[2018-06-04 17:58] LABS: Color, Urine Yellow (Yellow); Glucose, Dipstick Normal (Normal); Ketone-Dipstick Negative (Negative); Leukocyte Esterase-Dipstick 100 /ul (Negative); Nitrite-Dipstick Negative (Negative); Occult Blood-Urine 25 /ul (Negative); Protein-Dipstick 30 mg/dl (Negative); Specific Gravity, Urine 1.015 (1.002-1.030); Urine Bilirubin Dipstick Negative (Negative); Urine Clarity Clear (Clear); Urine Urobilinogen Normal (Normal)
[2018-06-04 18:03] LABS: Absolute Lymphocyte Count 1.16 X10^3/ul (0.83-4.51); Absolute Neutrophil Count 6.6 X10^3/uL (2.0-7.7); Basophil# 0.01 X10^3/uL; Basophil% 0.1 % (0-1); Eosinophil# 0.13 X10^3/uL; Eosinophils% 1.6 % (0-5); Hemoglobin 9.9 g/dl (13.0-16.5); Lymphocyte # 1.16 X10^3/ul (4.0); Lymphocyte % 14.1 % (19-41); Mean Corp Hgb Conc 30.9 g/gl (32-36); Mean Corpuscular Hgb 29.6 pg (27.0-32.0); Mean Corpuscular Volume 95.5 fL (80-94); Mean Platelet Vol. 9.6 fl (6.2-12.0); Monocyte# 0.32 X10^3/uL; Monocyte% 3.9 % (0-10); Neutrophil # 6.58 X10^3/uL (2.7-7.7); Neutrophil % 80.2 % (47-70); Platelet Count 145 K/mm3 (150-450); RBC Distribution Width CV 14.5 % (11.6-14.6); RBC Distribution Width SD 50.2 fl (35.1-43.9); Red Blood Count 3.35 M/mm3 (4.6-6.2); White Blood Count 8.2 K/mm3 (4.4-11.0)
[2018-06-04 18:06] LABS: POSITIVE COUNT NO; POSITIVE DIFFERENTIAL NO; POSITIVE MORPHOLOGY NO
[2018-06-04 18:06] LABS: Bacteria 1+ /hpf (None Seen); White Blood Cells 5-10 SEEN /hpf (0-5)
[2018-06-04 18:07] LABS: Hyaline Cast 0-5 SEEN /lpf (0-5)
[2018-06-04 18:23] LABS: ALB/GLOB Ratio 0.8 RATIO (0.9-2.4); AST(SGOT) 29 U/L (15-37); Alanine Aminotransfer ALT/SGPT 55 U/L (16-61); Albumin, Serum 2.8 g/dL (3.2-5.0); Alkaline Phosphatase 99 U/L (45-117); Anion Gap 9 (5-15); BUN 13 mg/dL (7-18); BUN/Creat Ratio 13.6 RATIO (10-20); Calcium,Total 8.8 mg/dL (8.5-10.1); Chloride 107 mmol/L (98-107); Creatinine, Serum 0.96 mg/dL (0.70-1.30); EST Glomerular Filtration Rate 81 mL/min (>60); Est Glom Filt Rate - Afr Amer 98 mL/min (>60); Estimated Creatinine Clearance 63.42 ml/min; Globulin 3.6 g/dL (2.2-4.2); Glucose 115 mg/dL (74-106); Magnesium 1.4 mg/dL (1.6-2.6); Potassium 3.9 mmol/L (3.5-5.1); Protein, Total 6.4 g/dL (6.4-8.2); Sodium Level 141 mmol/L (136-145)
[2018-06-04 18:31] LABS: Bedside Glucose 128 mg/dL (70-110)
[2018-06-04] MEDS: Senna/Docusate Sodium 1 Tablet 2 TABLET PO (23:11)
[2018-06-04 23:50] LABS: Bedside Glucose 137 mg/dL (70-110)
[2018-06-05 04:00] VITALS: BP 124/77; PULSE 100; RESP 18; TEMP 36.7; O2SAT 99
[2018-06-05 07:11] LABS: Bedside Glucose 129 mg/dL (70-110)
[2018-06-05] MEDS: 0.9% Normal Saline 1,000 ML 100 ML IV ×2 (08:00→17:00)
[2018-06-05] MEDS: Polyethylene Glycol 3350 17 GM PACKET PO (09:31)
[2018-06-05] MEDS: Enoxaparin 40 MG/0.4 ML Syringe SC (09:32)
[2018-06-05] MEDS: Senna/Docusate Sodium 1 Tablet 2 TABLET PO (09:32)
[2018-06-05] MEDS: Bisacodyl 10 MG Suppository RECTAL (09:32)
[2018-06-05 10:00] VITALS: BP 114/74; PULSE 103; RESP 18; TEMP 36.6; O2SAT 98
--- NOTE | 2018-06-05 10:17 | PCM.PN.SRG ---
Patient Problems: Active and Suspected Problems NG tube kinked (Acute) Gastric distention (Acute) Subjective: Patient has passed no flatus. He is not complaining of any abdominal pain. Objective: His abdomen is soft and nontender and nondistended moderately obese - Physical Exam Vital Signs Temp Pulse Resp BP Pulse Ox 97.8 F 103 H 18 114/74 98 06/05/18 10:00 06/05/18 10:00 06/05/18 10:00 06/05/18 10:00 06/05/18 10:00 Oxygen Flow Rate (L/min) 2 Oxygen Delivery Method Room Air Weight: 202 lb 9.677 oz Body Mass Index (BMI) 29.9 Intake and Output for Last 24 Hours 06/03/18 06/04/18 06/05/18 23:59 23:59 23:59 Intake Total 1144 / 1144 731 / 731 Output Total 950 / 950 650 / 650 Balance 194 / 194 81 / 81 Laboratory Tests Past 24 Hrs 06/04/18 06/04/18 06/04/18 17:41 17:55 17:55 WBC 8.2 RBC 3.35 L Hgb 9.9 L Hct 32.0 L MCV 95.5 H MCH 29.6 MCHC 30.9 L RDW 14.5 RDW Differential 50.2 H Plt Count 145 L MPV 9.6 Immature Gran % (Auto) 0.100 Neut % (Auto) 80.2 H Lymph % (Auto) 14.1 L [place] % (Auto) 3.9 Eos % (Auto) 1.6 Baso % (Auto) 0.1 Absolute Neuts (auto) 6.6 Absolute Lymphs (auto) 1.16 Total Counted Not Reportable Sodium 141 Potassium 3.9 Chloride 107 Carbon Dioxide 25.0 Anion Gap 9 BUN 13 Creatinine 0.96 Estim Creat Clear Calc 63.42 Est GFR (MDRD) Af Amer 98 Est GFR (MDRD) Non-Af 81 BUN/Creatinine Ratio 13.6 Glucose 115 H Calcium 8.8 Magnesium 1.4 L Total Bilirubin 0.60 AST 29 ALT 55 Alkaline Phosphatase 99 Total Protein 6.4 Albumin 2.8 L Globulin 3.6 Albumin/Globulin Ratio 0.8 L Urine Color Yellow Urine Clarity Clear Urine pH 5.0 Ur Specific [place] 1.015 Urine Protein 30 H Urine Glucose (UA) Normal Urine Ketones Negative Urine Occult Blood 25 H Urine Nitrite Negative Urine Bilirubin Negative Urine Urobilinogen Normal Ur Leukocyte Esterase 100 H Urine RBC 0 SEEN Urine WBC 5-10 SEEN Ur Squamous Epith Cells 0 SEEN Urine Bacteria 1+ Hyaline Casts 0-5 SEEN Urine Mucus 0 SEEN POC Glucose 06/05/18 06/04/18 06/04/18 06:28 23:19 18:28 POC Glucose 129 H 137 H 128 H Medical Necessity - Tobacco Use Smoking Status: Former smoker Assessment/Plan All Active Problems Chest pain (Acute) Encounter for nasogastric (NG) tube placement (Acute) Gastric outlet obstruction (Acute) NG tube kinked (Acute) Gastric distention (Acute) I have encouraged the patient to chew on ice chips chew some gum get up and walk once he starts to pass flatus removing the NG tube would be appropriate.
[2018-06-05 11:50] LABS: Bedside Glucose 109 mg/dL (70-110)
[2018-06-05 14:25] VITALS: BP 104/68; PULSE 116; RESP 16; TEMP 36.7; O2SAT 100
--- NOTE | 2018-06-05 14:55 | PCM.PN.HOSP ---
Patient Problems: Active and Suspected Problems NG tube kinked (Acute) Gastric distention (Acute) Subjective: The patient moved the bowel x2 and passed the flatus. NG tube removed. Vitals/I&O's: Vital Signs Temp Pulse Resp BP Pulse Ox 98.1 F 116 H 16 104/68 100 06/05/18 14:25 06/05/18 14:25 06/05/18 14:25 06/05/18 14:25 06/05/18 14:25 Oxygen Flow Rate (L/min) 2 Oxygen Delivery Method Room Air Weight: 202 lb 9.677 oz Body Mass Index (BMI) 29.9 Intake and Output for Last 24 Hours 06/03/18 06/04/18 06/05/18 23:59 23:59 23:59 Intake Total 1144 / 1144 1590 / 1590 Output Total 950 / 950 1150 / 1150 Balance 194 / 194 440 / 440 General: Alert, Oriented x3, Cooperative HEENT: Atraumatic, PERRLA, EOMI, Normocephalic Neck: Supple, No JVD, Negative Carotid Bruits Lungs: Clear to auscultation, Diminished, - Cardiovascular: Regular rate, Regular Rhythm, Normal S1, Normal S2, No murmurs Abdomen: Bowel Sounds Present, Soft, Non Tender, Non-Distended, - Extremities: No edema, Capillary Refill Less than 3 Seconds Skin: No rashes, No breakdown Musculoskeletal: No Tenderness to Palpation of Joints or Extremities Neurological: Cranial nerves II-XII grossly intact Psych/Mental Status: Normal Affect, Appropriate Laboratory Results 06/04/18 17:41: Urine Color Yellow, Urine Clarity Clear, Urine pH 5.0, Ur Specific [place] 1.015, Urine Protein 30 H, Urine Glucose (UA) Normal, Urine Ketones Negative, Urine Occult Blood 25 H, Urine Nitrite Negative, Urine Bilirubin Negative, Urine Urobilinogen Normal, Ur Leukocyte Esterase 100 H, Urine RBC 0 SEEN, Urine WBC 5-10 SEEN, Ur Squamous Epith Cells 0 SEEN, Urine Bacteria 1+, Hyaline Casts 0-5 SEEN, Urine Mucus 0 SEEN 06/04/18 17:55: WBC 8.2, RBC 3.35 L, Hgb 9.9 L, Hct 32.0 L, MCV 95.5 H, MCH 29.6, MCHC 30.9 L, RDW 14.5, RDW Differential 50.2 H, Plt Count 145 L, MPV 9.6, Immature Gran % (Auto) 0.100, Neut % (Auto) 80.2 H, Lymph % (Auto) 14.1 L, [place] % (Auto) 3.9, Eos % (Auto) 1.6, Baso % (Auto) 0.1, Absolute Neuts (auto) 6.6, Absolute Lymphs (auto) 1.16, Total Counted Not Reportable 06/04/18 17:55: Sodium 141, Potassium 3.9, Chloride 107, Carbon Dioxide 25.0, Anion Gap 9, BUN 13, Creatinine 0.96, Estim Creat Clear Calc 63.42, Est GFR (MDRD) Af Amer 98, Est GFR (MDRD) Non-Af 81, BUN/Creatinine Ratio 13.6, Glucose 115 H, Calcium 8.8, Magnesium 1.4 L, Total Bilirubin 0.60, AST 29, ALT 55, Alkaline Phosphatase 99, Total Protein 6.4, Albumin 2.8 L, Globulin 3.6, Albumin/Globulin Ratio 0.8 L 06/04/18 18:28: POC Glucose 128 H 06/04/18 23:19: POC Glucose 137 H 06/05/18 06:28: POC Glucose 129 H 06/05/18 11:35: POC Glucose 109 Current Medications Bisacodyl (Dulcolax) 10 mg RECTAL DAILY [facility] Last Admin: 06/05/18 09:32 Dose: 10 mg Dextrose (D50w Syringe) 0 gm IV X1 PRN; Protocol PRN Reason: Hypoglycemia Enoxaparin Sodium (Lovenox) 40 mg SC DAILY@1000 [facility] Last Admin: 06/05/18 09:32 Dose: 40 mg Glucagon () 1 mg IM .X1 PRN PRN Reason: Hypoglycemia Sodium Chloride () 1,000 mls @ 100 mls/hr IV .Q10H [facility] Last Admin: 06/05/18 08:00 Dose: 100 mls/hr Pantoprazole Sodium 40 mg/ (Sodium Chloride) 110 mls @ 330 mls/hr IV Q24 [facility] Last Admin: 06/05/18 09:33 Dose: 330 mls/hr Insulin Human Lispro (Humalog Kwikpen (Bkc)) 0 unit SQ Q6 TEO PRN Reason: Protocol Last Admin: 06/05/18 11:36 Dose: Not Given Ondansetron HCl (Zofran) 4 mg IV Q6H PRN PRN PRN Reason: NAUSEA Polyethylene Glycol (Miralax) 17 gm PO DAILY [facility] Last Admin: 06/05/18 09:31 Dose: 17 gm Promethazine HCl (Phenergan) 12.5 mg IV Q6H PRN PRN PRN Reason: NAUSEA/VOMITING Senna/Docusate Sodium (Senokot-S, [place]-Colace) 2 tablet PO BID [facility] Last Admin: 06/05/18 09:32 Dose: 2 tablet Sodium Chloride () 5 - 30 ml IV UD PRN PRN Reason: SALINE FLUSH Medical Necessity - Tobacco Use Smoking Status: Former smoker Assessment/Plan All Active Problems Chest pain (Acute) Encounter for nasogastric (NG) tube placement (Acute) Gastric outlet obstruction (Acute) NG tube kinked (Acute) Gastric distention (Acute) The patient is a 78 year old M with multiple comorbidities including coronary artery disease status post 5 vessel CABG in [facility] on 05/13/2018, postoperative transient A. fib, EF 33% suggestive of chronic systolic heart failure, acute kidney injury resolved to directly admitted on floor after EGD procedure done for kinked/misplaced NG tube. I was called by Dr. Santos to admit the patient. Earlier Dr. Santos was called for NG tube misplacement. Patient has a history of obstruction for which KUB was done which shows massive gastric distention. Patient did not had bowel movement for 3 days until today. Neurosurgery was consulted for that and Dr. Santos requested NG tube. Later on is found to NG tube was tightly kinked and found to be in nasopharynx as per x-ray. It was not able to be removed therefore patient was moved to endoscopy suite where Dr. Rogers and Dr. Gupta eventually saw the patient. NG tube was removed and he had EGD which shows gastric distention with retained fluid but no gastric outlet obstruction and was able to reach and duodenum. GE junction was widely patent. [] Patient is further admitted on the floor with NG tube placed. 1. NG tube kinked/misplaced status post EGD and removed: Discussed with Dr. Gupta. Patient moved bowel and flatus and therefore NG tube removed. Patient started on liquid diet. Recent labs from 06/04/2018 reviewed. Hemoglobin 9.9. Platelet count 262 stable. 2. Acute gastric distention; exact etiology unclear: GE junction was widely patent. Gastric distention was found but no gastric outlet obstruction. Coronary artery status post 5 vessel CABG, chronic systolic heart failure with EF 33%, transient postoperative A. fib: Stable. Continue cardiac medications. 3. GERD with reflux symptoms, chronic constipation: Started on bowel regimen. NG tube for gastrics decompression. Can be removed tomorrow. On PPI. 4. Recent history of acute kidney injury on 05/22/2018: Resolved. UA from 06/03/2018 shows WBC 5-10 cells, RBC 5-10 cells, small LE 100 nitrite negative. UA from 915 shows WBC 5-10 cells with small LE. Nitrite negative. Bacteria 1+. Patient does not have lower urinary tract symptoms. Patient has recently treated with Bactrim. Urine culture pending. As per Dr. Ennis note, patient urine culture grew 10-50,000 multiple organisms on 05/21/2018 and ID was consulted on 05/23/2018 for leukocytosis who recommended stopping all antibiotics. Prior to that he had urinary retention and indwelling Cervantes catheter was placed on on May 09, 2018 and Bactrim was started for presumptive UTI. Neurogenic bladder with retention of urine: As mentioned above. Patient is on Cervantes catheter. Follow-up urologist in TCU. Patient also had acute kidney injury for which customs collector was consulted on May 22, 2018. Creatinine was 2.2 at that time and nephrotoxic medications were held. Currently creatinine is 0.9, BUN 15 electrolytes within normal limit. DVT prophylaxis: On Lovenox 40 mg subcu daily. Patient can be discharged tomorrow a.m after he tolerates liquid and soft diet. Laboratory Results 06/04/18 17:41: Urine Color Yellow, Urine Clarity Clear, Urine pH 5.0, Ur Specific [place] 1.015, Urine Protein 30 H, Urine Glucose (UA) Normal, Urine Ketones Negative, Urine Occult Blood 25 H, Urine Nitrite Negative, Urine Bilirubin Negative, Urine Urobilinogen Normal, Ur Leukocyte Esterase 100 H, Urine RBC 0 SEEN, Urine WBC 5-10 SEEN, Ur Squamous Epith Cells 0 SEEN, Urine Bacteria 1+, Hyaline Casts 0-5 SEEN, Urine Mucus 0 SEEN 06/04/18 17:55: WBC 8.2, RBC 3.35 L, Hgb 9.9 L, Hct 32.0 L, MCV 95.5 H, MCH 29.6, MCHC 30.9 L, RDW 14.5, RDW Differential 50.2 H, Plt Count 145 L, MPV 9.6, Immature Gran % (Auto) 0.100, Neut % (Auto) 80.2 H, Lymph % (Auto) 14.1 L, [place] % (Auto) 3.9, Eos % (Auto) 1.6, Baso % (Auto) 0.1, Absolute Neuts (auto) 6.6, Absolute Lymphs (auto) 1.16, Total Counted Not Reportable 06/04/18 17:55: Sodium 141, Potassium 3.9, Chloride 107, Carbon Dioxide 25.0, Anion Gap 9, BUN 13, Creatinine 0.96, Estim Creat Clear Calc 63.42, Est GFR (MDRD) Af Amer 98, Est GFR (MDRD) Non-Af 81, BUN/Creatinine Ratio 13.6, Glucose 115 H, Calcium 8.8, Magnesium 1.4 L, Total Bilirubin 0.60, AST 29, ALT 55, Alkaline Phosphatase 99, Total Protein 6.4, Albumin 2.8 L, Globulin 3.6, Albumin/Globulin Ratio 0.8 L 06/04/18 18:28: POC Glucose 128 H 06/04/18 23:19: POC Glucose 137 H 06/05/18 06:28: POC Glucose 129 H 06/05/18 11:35: POC Glucose 109 Code Visit Inpatient E&M: 37331 Subs Hosp L3
--- NOTE | 2018-06-05 15:04 | PN_ITS ---
Patient Problems: Active and Suspected Problems NG tube kinked (Acute) Gastric distention (Acute) Subjective: The patient moved the bowel x2 and passed the flatus. NG tube removed. Vitals/I&O's: Vital Signs Temp Pulse Resp BP Pulse Ox 98.1 F 116 H 16 104/68 100 06/05/18 14:25 06/05/18 14:25 06/05/18 14:25 06/05/18 14:25 06/05/18 14:25 Oxygen Flow Rate (L/min) 2 Oxygen Delivery Method Room Air Weight: 202 lb 9.677 oz Body Mass Index (BMI) 29.9 Intake and Output for Last 24 Hours 06/03/18 06/04/18 06/05/18 23:59 23:59 23:59 Intake Total 1144 / 1144 1590 / 1590 Output Total 950 / 950 1150 / 1150 Balance 194 / 194 440 / 440 General: Alert, Oriented x3, Cooperative HEENT: Atraumatic, PERRLA, EOMI, Normocephalic Neck: Supple, No JVD, Negative Carotid Bruits Lungs: Clear to auscultation, Diminished, - Cardiovascular: Regular rate, Regular Rhythm, Normal S1, Normal S2, No murmurs Abdomen: Bowel Sounds Present, Soft, Non Tender, Non-Distended, - Extremities: No edema, Capillary Refill Less than 3 Seconds Skin: No rashes, No breakdown Musculoskeletal: No Tenderness to Palpation of Joints or Extremities Neurological: Cranial nerves II-XII grossly intact Psych/Mental Status: Normal Affect, Appropriate Laboratory Results 06/04/18 17:41: Urine Color Yellow, Urine Clarity Clear, Urine pH 5.0, Ur Specific [place] 1.015, Urine Protein 30 H, Urine Glucose (UA) Normal, Urine Ketones Negative, Urine Occult Blood 25 H, Urine Nitrite Negative, Urine Bilirubin Negative, Urine Urobilinogen Normal, Ur Leukocyte Esterase 100 H, Urine RBC 0 SEEN, Urine WBC 5-10 SEEN, Ur Squamous Epith Cells 0 SEEN, Urine Bacteria 1+, Hyaline Casts 0-5 SEEN, Urine Mucus 0 SEEN 06/04/18 17:55: WBC 8.2, RBC 3.35 L, Hgb 9.9 L, Hct 32.0 L, MCV 95.5 H, MCH 29.6 , MCHC 30.9 L, RDW 14.5, RDW Differential 50.2 H, Plt Count 145 L, MPV 9.6, Immature Gran % (Auto) 0.100, Neut % (Auto) 80.2 H, Lymph % (Auto) 14.1 L, [place] % (Auto) 3.9, Eos % (Auto) 1.6, Baso % (Auto) 0.1, Absolute Neuts (auto) 6.6, Absolute Lymphs (auto) 1.16, Total Counted Not Reportable 06/04/18 17:55: Sodium 141, Potassium 3.9, Chloride 107, Carbon Dioxide 25.0, Anion Gap 9, BUN 13, Creatinine 0.96, Estim Creat Clear Calc 63.42, Est GFR ( MDRD) Af Amer 98, Est GFR (MDRD) Non-Af 81, BUN/Creatinine Ratio 13.6, Glucose 115 H, Calcium 8.8, Magnesium 1.4 L, Total Bilirubin 0.60, AST 29, ALT 55, Alkaline Phosphatase 99, Total Protein 6.4, Albumin 2.8 L, Globulin 3.6, Albumin /Globulin Ratio 0.8 L 06/04/18 18:28: POC Glucose 128 H 06/04/18 23:19: POC Glucose 137 H 06/05/18 06:28: POC Glucose 129 H 06/05/18 11:35: POC Glucose 109 Current Medications Bisacodyl (Dulcolax) 10 mg RECTAL DAILY [facility] Last Admin: 06/05/18 09:32 Dose: 10 mg Dextrose (D50w Syringe) 0 gm IV X1 PRN; Protocol PRN Reason: Hypoglycemia Enoxaparin Sodium (Lovenox) 40 mg SC DAILY@1000 [facility] Last Admin: 06/05/18 09:32 Dose: 40 mg Glucagon () 1 mg IM .X1 PRN PRN Reason: Hypoglycemia Sodium Chloride () 1,000 mls @ 100 mls/hr IV .Q10H [facility] Last Admin: 06/05/18 08:00 Dose: 100 mls/hr Pantoprazole Sodium 40 mg/ (Sodium Chloride) 110 mls @ 330 mls/hr IV Q24 [facility] Last Admin: 06/05/18 09:33 Dose: 330 mls/hr Insulin Human Lispro (Humalog Kwikpen (Bkc)) 0 unit SQ Q6 [facility] PRN Reason: Protocol Last Admin: 06/05/18 11:36 Dose: Not Given Ondansetron HCl (Zofran) 4 mg IV Q6H PRN PRN PRN Reason: NAUSEA Polyethylene Glycol (Miralax) 17 gm PO DAILY [facility] Last Admin: 06/05/18 09:31 Dose: 17 gm Promethazine HCl (Phenergan) 12.5 mg IV Q6H PRN PRN PRN Reason: NAUSEA/VOMITING Senna/Docusate Sodium (Senokot-S, Viridiana-Colace) 2 tablet PO BID [facility] Last Admin: 06/05/18 09:32 Dose: 2 tablet Sodium Chloride () 5 - 30 ml IV UD PRN PRN Reason: SALINE FLUSH Medical Necessity - Tobacco Use Smoking Status: Former smoker Assessment/Plan All Active Problems Chest pain (Acute) Encounter for nasogastric (NG) tube placement (Acute) Gastric outlet obstruction (Acute) NG tube kinked (Acute) Gastric distention (Acute) The patient is a 78 year old M with multiple comorbidities including coronary artery disease status post 5 vessel CABG in [facility] on 05/13/2018, postoperative transient A. fib, EF 33% suggestive of chronic systolic heart failure, acute kidney injury resolved to directly admitted on floor after EGD procedure done for kinked/misplaced NG tube. I was called by Dr. Santos to admit the patient. Earlier Dr. Santos was called for NG tube misplacement. Patient has a history of obstruction for which KUB was done which shows massive gastric distention. Patient did not had bowel movement for 3 days until today. Neurosurgery was consulted for that and Dr. Santos requested NG tube. Later on is found to NG tube was tightly kinked and found to be in nasopharynx as per x-ray. It was not able to be removed therefore patient was moved to endoscopy suite where Dr. Rogers and Dr. Gupta eventually saw the patient. NG tube was removed and he had EGD which shows gastric distention with retained fluid but no gastric outlet obstruction and was able to reach and duodenum. GE junction was widely patent. [] Patient is further admitted on the floor with NG tube placed. 1. NG tube kinked/misplaced status post EGD and removed: Discussed with Dr. Gupta. Patient moved bowel and flatus and therefore NG tube removed. Patient started on liquid diet. Recent labs from 06/04/2018 reviewed. Hemoglobin 9.9. Platelet count 262 stable. 2. Acute gastric distention; exact etiology unclear: GE junction was widely patent. Gastric distention was found but no gastric outlet obstruction. Coronary artery status post 5 vessel CABG, chronic systolic heart failure with EF 33%, transient postoperative A. fib: Stable. Continue cardiac medications. 3. GERD with reflux symptoms, chronic constipation: Started on bowel regimen. NG tube for gastrics decompression. Can be removed tomorrow. On PPI. 4. Recent history of acute kidney injury on 05/22/2018: Resolved. UA from 2017 shows WBC 5-10 cells, RBC 5-10 cells, small LE 100 nitrite negative. UA from 915 shows WBC 5-10 cells with small LE. Nitrite negative. Bacteria 1+. Patient does not have lower urinary tract symptoms. Patient has recently treated with Bactrim. Urine culture pending. As per Dr. Ennis note, patient urine culture grew 10-50,000 multiple organisms on 05/21/2018 and ID was consulted on 05/23/2018 for leukocytosis who recommended stopping all antibiotics. Prior to that he had urinary retention and indwelling Cervantes catheter was placed on on May 09, 2018 and Bactrim was started for presumptive UTI. Neurogenic bladder with retention of urine: As mentioned above. Patient is on Cervantes catheter. Follow-up urologist in TCU. Patient also had acute kidney injury for which envelope sealing machine operator was consulted on May 22, 2018. Creatinine was 2.2 at that time and nephrotoxic medications were held. Currently creatinine is 0.9, BUN 15 electrolytes within normal limit. DVT prophylaxis: On Lovenox 40 mg subcu daily. Patient can be discharged tomorrow a.m after he tolerates liquid and soft diet. Laboratory Results 06/04/18 17:41: Urine Color Yellow, Urine Clarity Clear, Urine pH 5.0, Ur Specific [place] 1.015, Urine Protein 30 H, Urine Glucose (UA) Normal, Urine Ketones Negative, Urine Occult Blood 25 H, Urine Nitrite Negative, Urine Bilirubin Negative, Urine Urobilinogen Normal, Ur Leukocyte Esterase 100 H, Urine RBC 0 SEEN, Urine WBC 5-10 SEEN, Ur Squamous Epith Cells 0 SEEN, Urine Bacteria 1+, Hyaline Casts 0-5 SEEN, Urine Mucus 0 SEEN 06/04/18 17:55: WBC 8.2, RBC 3.35 L, Hgb 9.9 L, Hct 32.0 L, MCV 95.5 H, MCH 29.6 , MCHC 30.9 L, RDW 14.5, RDW Differential 50.2 H, Plt Count 145 L, MPV 9.6, Immature Gran % (Auto) 0.100, Neut % (Auto) 80.2 H, Lymph % (Auto) 14.1 L, [place] % (Auto) 3.9, Eos % (Auto) 1.6, Baso % (Auto) 0.1, Absolute Neuts (auto) 6.6, Absolute Lymphs (auto) 1.16, Total Counted Not Reportable 06/04/18 17:55: Sodium 141, Potassium 3.9, Chloride 107, Carbon Dioxide 25.0, Anion Gap 9, BUN 13, Creatinine 0.96, Estim Creat Clear Calc 63.42, Est GFR ( MDRD) Af Amer 98, Est GFR (MDRD) Non-Af 81, BUN/Creatinine Ratio 13.6, Glucose 115 H, Calcium 8.8, Magnesium 1.4 L, Total Bilirubin 0.60, AST 29, ALT 55, Alkaline Phosphatase 99, Total Protein 6.4, Albumin 2.8 L, Globulin 3.6, Albumin /Globulin Ratio 0.8 L 06/04/18 18:28: POC Glucose 128 H 06/04/18 23:19: POC Glucose 137 H 06/05/18 06:28: POC Glucose 129 H 06/05/18 11:35: POC Glucose 109 Code Visit Inpatient E&M: 57871 Subs Hosp L3
[2018-06-05 17:06] LABS: Bedside Glucose 84 mg/dL (70-110)
[2018-06-05 20:25] VITALS: BP 109/68; PULSE 95; RESP 18; TEMP 37; O2SAT 95
[2018-06-05] MEDS: Insulin Lispro 100 UNIT/ML INSULN.PEN SQ (22:59)
[2018-06-05 23:55] LABS: Bedside Glucose 151 mg/dL (70-110)
[2018-06-06] MEDS: 0.9% Normal Saline 1,000 ML 100 ML IV (02:35)
[2018-06-06 05:25] VITALS: BP 138/92; PULSE 111; RESP 18; TEMP 36.5; O2SAT 96
[2018-06-06 07:30] LABS: Bedside Glucose 119 mg/dL (70-110)
[2018-06-06] MEDS: Enoxaparin 40 MG/0.4 ML Syringe SC (09:01)
[2018-06-06] MEDS: Polyethylene Glycol 3350 17 GM PACKET PO (09:01)
[2018-06-06] MEDS: Senna/Docusate Sodium 1 Tablet 2 TABLET PO (09:01)
--- NOTE | 2018-06-06 09:30 | PN_ITS ---
Patient Problems: Active and Suspected Problems NG tube kinked (Acute) Gastric distention (Acute) Subjective: Patient was seen and examined. Denies any new complaints. at bedside. All questions answered. Waiting on insurance precertification for discharge to TCU. Objective: Physical exam: General: Alert, Oriented x3, Cooperative HEENT: Atraumatic, PERRLA, EOMI, Normocephalic Neck: Supple, No JVD, Negative Carotid Bruits Lungs: Clear to auscultation, Diminished, - Cardiovascular: Regular rate, Regular Rhythm, Normal S1, Normal S2, No murmurs Abdomen: Bowel Sounds Present, Soft, Non Tender, Non-Distended, - Extremities: No edema, Capillary Refill Less than 3 Seconds Skin: No rashes, No breakdown Musculoskeletal: No Tenderness to Palpation of Joints or Extremities Neurological: Cranial nerves II-XII grossly intact Psych/Mental Status: Normal Affect, Appropriate Vitals/I&O's: Vital Signs Temp Pulse Resp BP Pulse Ox 97.7 F L 111 H 18 138/92 H 96 06/06/18 05:25 06/06/18 05:25 06/06/18 05:25 06/06/18 05:25 06/06/18 05:25 Oxygen Flow Rate (L/min) 2 Oxygen Delivery Method Room Air Weight: 91.9 kg Body Mass Index (BMI) 29.9 Intake and Output for Last 24 Hours 06/04/18 06/05/18 06/06/18 23:59 23:59 23:59 Intake Total 1144 / 1144 3134 / 3134 887 / 887 Output Total 950 / 950 2025 / 2025 450 / 450 Balance 194 / 194 1109 / 1109 437 / 437 Laboratory Results 06/05/18 11:35: POC Glucose 109 06/05/18 16:58: POC Glucose 84 06/05/18 22:55: POC Glucose 151 H 06/06/18 07:10: POC Glucose 119 H Current Medications Bisacodyl (Dulcolax) 10 mg RECTAL DAILY [facility] Last Admin: 06/06/18 09:02 Dose: Not Given Dextrose (D50w Syringe) 0 gm IV X1 PRN; Protocol PRN Reason: Hypoglycemia Enoxaparin Sodium (Lovenox) 40 mg SC DAILY@1000 [facility] Last Admin: 06/06/18 09:01 Dose: 40 mg Glucagon () 1 mg IM .X1 PRN PRN Reason: Hypoglycemia Sodium Chloride () 1,000 mls @ 100 mls/hr IV .Q10H [facility] Last Admin: 06/06/18 02:35 Dose: 100 mls/hr Pantoprazole Sodium 40 mg/ (Sodium Chloride) 110 mls @ 330 mls/hr IV Q24 [facility] Last Admin: 06/06/18 09:01 Dose: 330 mls/hr Insulin Human Lispro (Humalog Kwikpen (Bkc)) 0 unit SQ ACHS [facility] PRN Reason: Protocol Last Admin: 06/06/18 07:32 Dose: Not Given Ondansetron HCl (Zofran) 4 mg IV Q6H PRN PRN PRN Reason: NAUSEA Polyethylene Glycol (Miralax) 17 gm PO DAILY [facility] Last Admin: 06/06/18 09:01 Dose: 17 gm Promethazine HCl (Phenergan) 12.5 mg IV Q6H PRN PRN PRN Reason: NAUSEA/VOMITING Senna/Docusate Sodium (Senokot-S, [place]-Colace) 2 tablet PO BID [facility] Last Admin: 06/06/18 09:01 Dose: 2 tablet Sodium Chloride () 5 - 30 ml IV UD PRN PRN Reason: SALINE FLUSH Medical Necessity - Tobacco Use Smoking Status: Former smoker Assessment/Plan All Active Problems Chest pain (Acute) Encounter for nasogastric (NG) tube placement (Acute) Gastric outlet obstruction (Acute) NG tube kinked (Acute) Gastric distention (Acute) 78-year-old male with multiple comorbidities including coronary artery disease status post CABG in April 2018, postoperative transit atrial fibrillation, chronic systolic CHF with an EF of 33%, history of acute kidney injury who was in subacute rehab in TCU, when he got directly admitted for kinked almost placed NG tube. Patient recently has history of obstruction for which KUB showed massive gastric distention with no bowel movement for 3 days. His NG tube was tightly came and could not be removed easily. He underwent NG tube removal in the endoscopy suit and had subsequent EGD which showed gastric distention with retained fluid but no gastric outlet obstruction. 1. Acute gastric distention, unclear etiology, resolved status post malfunctioning/kinked NG tube removal, patient is clinically improved, diet advanced 2. Chronic urinary retention, status post Cervantes catheter, follows with Dr. Raines, outpatient appointment made for 16 June at 11:30 AM 3. CAD status post CABG/chronic systolic CHF with EF 33%/transient postop A. fib 4. GERD 5. DVT prophylaxis with Lovenox SC Code Visit Inpatient E&M: [id number] Subs Hosp L2
[2018-06-06 09:32] VITALS: PULSE 98
--- NOTE | 2018-06-06 10:08 | PCM.PN.SRG ---
Patient Problems: Active and Suspected Problems NG tube kinked (Acute) Gastric distention (Acute) Subjective: Patient evaluated resting comfortably in bed. He denies abdominal pain/discomfort. He passed flatus. No bowel movement. He denies nausea, vomiting. - Physical Exam General: Alert, Oriented x3, Cooperative Abdomen: Bowel Sounds Present, Soft, Non Tender, Non-Distended Vital Signs Temp Pulse Resp BP Pulse Ox 97.7 F L 98 18 138/92 H 96 06/06/18 05:25 06/06/18 09:32 06/06/18 05:25 06/06/18 05:25 06/06/18 05:25 Oxygen Flow Rate (L/min) 2 Oxygen Delivery Method Room Air Weight: 202 lb 9.677 oz Body Mass Index (BMI) 29.9 Intake and Output for Last 24 Hours 06/04/18 06/05/18 06/06/18 23:59 23:59 23:59 Intake Total 1144 / 1144 3134 / 3134 887 / 887 Output Total 950 / 950 2024 / 2024 450 / 450 Balance 194 / 194 1109 / 1109 437 / 437 POC Glucose 06/06/18 06/05/18 06/05/18 07:10 22:55 16:58 POC Glucose 119 H 151 H 84 06/05/18 11:35 POC Glucose 109 Medical Necessity - Tobacco Use Smoking Status: Former smoker Assessment/Plan All Active Problems Chest pain (Acute) Encounter for nasogastric (NG) tube placement (Acute) Gastric outlet obstruction (Acute) NG tube kinked (Acute) Gastric distention (Acute) I am following this patient in conjunction with Dr. Gupta Impression: ileus; resolved Tolerating diet well Continue to advance diet as tolerated We will sign off at this time Please consult if needed Code Visit Inpatient E&M: [id number] Subs Hosp L1
--- NOTE | 2018-06-06 10:18 | PN.SURG_ITS ---
Patient Problems: Active and Suspected Problems NG tube kinked (Acute) Gastric distention (Acute) Subjective: Patient evaluated resting comfortably in bed. He denies abdominal pain/ discomfort. He passed flatus. No bowel movement. He denies nausea, vomiting. - Physical Exam General: Alert, Oriented x3, Cooperative Abdomen: Bowel Sounds Present, Soft, Non Tender, Non-Distended Vital Signs Temp Pulse Resp BP Pulse Ox 97.7 F L 98 18 138/92 H 96 06/06/18 05:25 06/06/18 09:32 06/06/18 05:25 06/06/18 05:25 06/06/18 05:25 Oxygen Flow Rate (L/min) 2 Oxygen Delivery Method Room Air Weight: 202 lb 9.677 oz Body Mass Index (BMI) 29.9 Intake and Output for Last 24 Hours 06/04/18 06/05/18 06/06/18 23:59 23:59 23:59 Intake Total 1144 / 1144 3134 / 3134 887 / 887 Output Total 950 / 950 2024 / 2024 450 / 450 Balance 194 / 194 1109 / 1109 437 / 437 POC Glucose 06/06/18 06/05/18 06/05/18 07:10 22:55 16:58 POC Glucose 119 H 151 H 84 06/05/18 11:35 POC Glucose 109 Medical Necessity - Tobacco Use Smoking Status: Former smoker Assessment/Plan All Active Problems Chest pain (Acute) Encounter for nasogastric (NG) tube placement (Acute) Gastric outlet obstruction (Acute) NG tube kinked (Acute) Gastric distention (Acute) I am following this patient in conjunction with Dr. Gupta Impression: ileus; resolved Tolerating diet well Continue to advance diet as tolerated We will sign off at this time Please consult if needed Code Visit Inpatient E&M: [id number] Subs Hosp L1
--- NOTE | 2018-06-06 11:00 | CASEMGMT ---
Social Work Note MARLI met with pt as pt is listed as being from TCU. Pt has guest present and gave permission for this worker to speak to pt in front of guest. MARLI introduced self and role at [facility]. Pt is alert and orientated x3. Pt confirms that he came from TCU and that his plan is to return there at discharge. MARLI placed a call to Debra with [facility]. Debra confirms that pt is from TCU and has bed hold and is able to return when medically cleared. MARLI updated physician of this. Per physician pt is able to discharge to TCU today. Plan: Discharge to TCU today Melanie Leon ASSET PROTECTION DETECTIVE, RN ADVANCED
[2018-06-06 11:25] VITALS: BP 133/84; PULSE 98; RESP 18; TEMP 36.5; O2SAT 100
[2018-06-06 11:46] LABS: Bedside Glucose 114 mg/dL (70-110)
--- NOTE | 2018-06-06 14:23 | PCM.TXEXTCAR ---
- Diet 06/05/18 16:25 Diet: No Gastric Stimulus/Low Residue Is pt able to select menu?: Yes Diet Comments: ADV TO SOFT DIET TONIGHT AND REG DIET IN AM PT TOLERATES - Routine Orders/Code Status Routine Lab Work: CBC - in 3 days, BMP - in 3 days - Wound(s) MID CHEST, RT AND LT LEG Wound Type: Surgical Incision - Therapies Weight Bearing: Weight bearing as tolerated Physical Therapy: Eval and Treat Occupational Therapy: Eval and Treat - Allergies/Procedures Done in Hospital Allergies/Adverse Reactions: Allergies No Known Allergies Allergy (Verified 05/27/18 17:09) Procedures: None - Type of Care/Length of Stay Estimated LOS: Convalescent Care Less Than 30 days Type of Care Needed: Skilled Rehab Potential: Good Prognosis: Good - Additional Orders/Day of Discharge Additional Orders: Continue with Cervantes care. Patient has an appointment with Dr. Raines. Follow-up with Dr. Gupta if needed for abdominbal discomfort or signs of ileus again. Some changes were made to his medication list with Lisinopril and Lasix held. Consider resuming these if needed. Day of Discharge: 06/06/18 - Follow Up Care Please Follow Up With: Fito Raines MD When: as scheduled on 06/16/18 at 11:30am
[2018-06-06 14:26] VITALS: BP 131/69; PULSE 98; RESP 18; TEMP 36.7; O2SAT 96
--- NOTE | 2018-06-06 14:33 | DS.PCM_ITS ---
Discharge Date and Diagnosis - Problem List Patient Problems: Active and Suspected Problems NG tube kinked (Acute) Gastric distention (Acute) Date of Admission: 06/04/18 Date of Discharge: 06/06/18 - Primary Discharge Diagnosis Active and Suspected Problems NG tube kinked (Acute) Gastric distention (Acute) - Secondary Discharge Diagnosis Chronic Problems NSTEMI (non-ST elevated myocardial infarction) (Chronic) Coronary artery disease (Chronic) 5 vessel CABG on 05/13/2018 Left ventricular dysfunction (Chronic) Diabetes mellitus type 2 in obese (Chronic) Hypertension (Chronic) Hyperlipidemia (Chronic) BPH (benign prostatic hyperplasia) (Chronic) Atrial fibrillation (Chronic) Acute kidney injury (Chronic) GERD (gastroesophageal reflux disease) (Chronic) Hospital Course and Treatment General surgery Operations: None Procedures: EGD - with NG removal and placement Summary of Care Provided: 78-year-old male with multiple comorbidities including coronary artery disease status post CABG in April 2018, postoperative transient atrial fibrillation, chronic systolic CHF with EF of 33%, history of acute kidney injury, who was in subacute rehab in TCU, when he got directly admitted for kinked almost displaced NG tube. Patient recently had a history of obstruction for which KUB showed massive gastric distention with no bowel movement for 3 days. He underwent EGD which showed that the NG tube was tightly kinked in the nasal cavity. Under light sedation, patient had the NG tube removed, EGD showed very slight bleeding in the esophagus, GE junction was widely patent with distended stomach with small amount of retained fluid in the dependent portion of the stomach. Gastroparesis was observed. Patient subsequently had NG tube placed through the nares down into the oropharynx into the stomach and confirmed endoscopically. The tube was firmly taped in place in the nose. He was subsequently managed conservatively until he was able to move his bowels or pass flatus after which the NG tube was removed. He continued to improved with advancement in his diet. Discharge Diet: Low fat/ Low Cholesterol, 2000 mg Sodium Diet Discharge Activity: Return to Normal Activity Home Medications: Medications to take at Discharge Acetaminophen 650 mg PO Q4H 05/27/18 Amiodarone HCl [Pacerone] 200 mg PO DAILY 05/27/18 Aspirin 81 mg PO DAILY 05/27/18 Atorvastatin Calcium 80 mg PO QHS 05/27/18 Clopidogrel Bisulfate [Plavix] 75 mg PO DAILY 05/27/18 Enoxaparin [Lovenox] 30 mg SC DAILY@0600 05/27/18 Finasteride [Proscar] 5 mg PO DAILY 05/27/18 Melatonin 3 mg PO QHS 05/27/18 Metformin HCl [Glucophage] 500 mg PO BIDCM 05/27/18 Multivitamin,Therapeutic [Thera] 1 each PO DAILY 05/27/18 Pantoprazole Sodium [Protonix] 40 mg PO DAILY 05/27/18 Tamsulosin HCl [Flomax] 0.4 mg PO QHS 05/27/18 Metoprolol Succinate 100 mg PO BID #0 06/06/18 Please Follow Up With: Fito Raines MD When: as scheduled on 06/16/18 at 11:30am Disposition: [facility] facility Minutes spent on discharge:: 50 Patient Condition:: Stable Medical Necessity - Tobacco Use Smoking Status: Former smoker Tobacco Use: Non-smoker Meaningful Use Info Meaningful Use Diagnoses (Choose all that apply): None applicable Code Visit Inpatient E&M: [id number] Disch Hosp
== END 2018-06-06 16:37 | disposition skilled nursing facility (03) | DRG 919 ==
LOC: EN 17:15 → MS3 17:16
PROVIDERS: Surgery; Admitting Provider Internal Medicine; Visit Provider Internal Medicine
PROC: 0DJ08ZZ Inspection of Upper Intestinal Tract, Via Natural or Artificial Opening Endoscopic (ICD-10-PCS; CPT 43235; principal; 2018-06-04 17:00)
DX: T85.598A Other mechanical complication of other gastrointestinal prosthetic devices, implants and grafts, initial encounter (principal); I21.4 Non-ST elevation (NSTEMI) myocardial infarction; I50.22 Chronic systolic (congestive) heart failure; I25.10 Atherosclerotic heart disease of native coronary artery without angina pectoris; Z95.1 Presence of aortocoronary bypass graft; K31.89 Other diseases of stomach and duodenum; Z87.891 Personal history of nicotine dependence; K21.9 Gastro-esophageal reflux disease without esophagitis; E78.5 Hyperlipidemia, unspecified; N40.0 Benign prostatic hyperplasia without lower urinary tract symptoms; E11.9 Type 2 diabetes mellitus without complications; K31.84 Gastroparesis; I11.0 Hypertensive heart disease with heart failure
CPT/HCPCS: 80053; 81001; 82962; 83735; 85025; 87077; 87086; 87088; 87186; 97162; 97166; 97530; J7030

== ENCOUNTER 2018-06-06 16:37 | Inpatient (IN) | payer MEDICARE, OTHER, SELFPAY ==
[2018-06-06 17:44] VITALS: BP 115/46; PULSE 110; RESP 16; TEMP 36.6; O2SAT 98; BMI 30.4
--- NOTE | 2018-06-06 17:45 | NURSING ---
Pt admitted to room 8 from [facility] via wheelchair. Patient oriented to room and call light system explained.
[2018-06-06 18:25] VITALS: BP 123/78; PULSE 114
[2018-06-06] MEDS: Metoprolol(XL)Succ 100 MG Tablet PO (18:25)
[2018-06-06] MEDS: Senna/Docusate Sodium 1 Tablet PO (18:26)
[2018-06-06] MEDS: Acetaminophen 325 MG Tablet 650 MG PO (18:26)
--- NOTE | 2018-06-06 19:36 | PCM.HP.STD ---
Problem List (1) Gastroparesis Status: Acute (2) Chest pain Status: Chronic (3) NSTEMI (non-ST elevated myocardial infarction) Status: Chronic (4) Coronary artery disease Status: Chronic Comment: 5 vessel CABG on 05/13/2018 (5) Left ventricular dysfunction Status: Chronic (6) Diabetes mellitus type 2 in obese Status: Chronic (7) Hypertension Status: Chronic (8) Hyperlipidemia Status: Chronic (9) BPH (benign prostatic hyperplasia) Status: Chronic (10) Atrial fibrillation Status: Chronic (11) Acute kidney injury Status: Chronic (12) GERD (gastroesophageal reflux disease) Status: Chronic (13) NG tube kinked Status: Acute (14) Gastric distention Status: Acute History of Present Illness Date of Admission: 06/06/18 Chief Complaint: Here for rehabilitation, strengthening, prior to discharge home with spouse. The patient is a 78 year old Male with below past medical history TCU resident here for rehabilitation after hospitalization for chest pain, NSTEMI, underwent CABG x 5 05/13/2018, post-operative course complicated by atrial fibrillation, leukocytosis, acute kidney injury. 06/04/2018 General surgery consulted for KUB showing gastric outlet obstruction. NG tube placed, but kinked in nasopharynx. ENT removed kinked NG tube, and placed another NG tube. General surgery performed EGD showing gastric distention with retained contents but no gastric outlet obstruction. Patient NPO, IV fluids, NG to intermittent suction. Gastroparesis observed. Patient improved, NG tube removed. 06/06/2018 Admit to TCU with debility, here for rehabilitation, strengthening, prior to discharge home with spouse. Past Medical History Past Medical History (Chronic Problems): Chronic Problems Chest pain (Chronic) NSTEMI (non-ST elevated myocardial infarction) (Chronic) Coronary artery disease (Chronic) 5 vessel CABG on 05/13/2018 Left ventricular dysfunction (Chronic) Diabetes mellitus type 2 in obese (Chronic) Hypertension (Chronic) Hyperlipidemia (Chronic) BPH (benign prostatic hyperplasia) (Chronic) Atrial fibrillation (Chronic) Acute kidney injury (Chronic) GERD (gastroesophageal reflux disease) (Chronic) Allergies No Known Allergies Allergy (Verified 05/27/18 17:09) Home Medications: Ambulatory Orders Medication Instructions Recorded Acetaminophen 650 mg PO Q4H 05/27/18 Amiodarone HCl [Pacerone] 200 mg PO DAILY 05/27/18 Aspirin 81 mg PO DAILY 05/27/18 Atorvastatin Calcium 80 mg PO QHS 05/27/18 Clopidogrel Bisulfate [Plavix] 75 mg PO DAILY 05/27/18 Enoxaparin [Lovenox] 30 mg SC DAILY@0600 05/27/18 Finasteride [Proscar] 5 mg PO DAILY 05/27/18 Melatonin 3 mg PO QHS 05/27/18 Metformin HCl [Glucophage] 500 mg PO BIDCM 05/27/18 Multivitamin,Therapeutic [Thera] 1 each PO DAILY 05/27/18 Pantoprazole Sodium [Protonix] 40 mg PO DAILY 05/27/18 Tamsulosin HCl [Flomax] 0.4 mg PO QHS 05/27/18 Metoprolol Succinate 100 mg PO BID #0 06/06/18 Surgical History: coronary bypass surgery - X 5. Psychiatric History: No pertinent psych hx Lives: Spouse/ Significant Other Smoking Status: Former smoker Tobacco Use: Cigars Alcohol: None Drugs: None - *Family History Maternal History Items: No pertinent history Paternal History Items: No pertinent history Review of Systems Constitutional: Denies: Chills, Fever, Weight Change HEENT: Denies: Head Aches, Sinus Congestion, Sinus Drainage Cardiovascular: Denies: Chest Pain, Palpitations Respiratory: Denies: Cough, Shortness of breath at rest, Sputum production Gastrointestinal: Denies: Abdominal Pain, Nausea, Vomiting Genitourinary: Denies: Dysuria Musculoskeletal: Denies: Joint Pain, Joint Tenderness Skin: Denies: Rash, Wounds Neurological: Denies: Numbness, Tingling, Focal weakness Psychiatric: Denies: Anxiety, Depression, Homicidal Ideations, Suicidal Ideations Hematologic/ Lymphatic: Denies: Easy Bruising, Easy Bleeding VTE Information - Inpt Only VTE Present on Admission: No VTE Mechan Device Prophylaxis: Knee High BERTO Hose VTE Pharm Prophylaxis ordered?: Yes Patient Problems: Active and Suspected Problems Gastroparesis (Acute) - Physical Exam General: Alert, Oriented x3, Cooperative HEENT: Atraumatic, PERRLA, EOMI, Normocephalic Neck: Supple, No JVD, Negative Carotid Bruits Lungs: Clear to auscultation, Normal air movement Cardiovascular: Regular rate, No murmurs Abdomen: Bowel Sounds Present, Soft, Non Tender Extremities: No edema, Capillary Refill Less than 3 Seconds Skin: No rashes, No breakdown Musculoskeletal: No Tenderness to Palpation of Joints or Extremities Neurological: Cranial nerves II-XII grossly intact Psych/Mental Status: Normal Affect, Appropriate Vital Signs Pulse BP 114 H 123/78 H 06/06/18 18:25 06/06/18 18:25 Weight: 93.416 kg Body Mass Index (BMI) 30.4 Intake and Output for Last 24 Hours 06/04/18 06/05/18 06/06/18 23:59 23:59 23:59 Intake Total 180 / 180 Balance 180 / 180 Assessment/Plan All Active Problems Encounter for nasogastric (NG) tube placement (Acute) Gastric outlet obstruction (Acute) NG tube kinked (Acute) Gastric distention (Acute) Gastroparesis (Acute) 78 year old male with below past medical history recovering from recent CABG x 5, hospitalized for kinked NG tube, and X-ray showing gastric outlet obstruction, later ruled out, admitted to TCU with debility, here for rehabilitation, strengthening, prior to discharge home with spouse. Debility - PT/OT. Pain - Tylenol 1000MG Q8H PRN mild pain. Bowel - Miralax 17GM daily, Senna/colace 1 tablet BID, Dulcolax 10MG PO daily PRN. Pneumonia vaccination - Administer Prevnar 13 and/or Pneumovax 23 as necessary. DVT prophylaxis - Lovenox 30MG SC daily. Atrial Fibrillation - Metoprolol succinate 100MG BID, Amiodarone 200MG daily, no systemic anticoagulation because episode was transient. Coronary Artery Disease status post CABG x 5 - Metoprolol succinate 100MG BID, Plavix 75MG daily, Aspirin 81MG daily. Hyperlipidemia - Atorvastatin 80MG QHS. BPH - Tamsulosin 0.4MG QHS, Finasteride 5MG daily. Insomnia - Melatonin 3MG QHS. Diabetes Mellitus II - Metforin 500MG BID. Nutrition - MVI daily. GERD - Pantoprazole 40MG daily.
--- NOTE | 2018-06-06 19:41 | HP.PCM_ITS ---
Problem List (1) Gastroparesis Status: Acute (2) Chest pain Status: Chronic (3) NSTEMI (non-ST elevated myocardial infarction) Status: Chronic (4) Coronary artery disease Status: Chronic Comment: 5 vessel CABG on 05/13/2018 (5) Left ventricular dysfunction Status: Chronic (6) Diabetes mellitus type 2 in obese Status: Chronic (7) Hypertension Status: Chronic (8) Hyperlipidemia Status: Chronic (9) BPH (benign prostatic hyperplasia) Status: Chronic (10) Atrial fibrillation Status: Chronic (11) Acute kidney injury Status: Chronic (12) GERD (gastroesophageal reflux disease) Status: Chronic (13) NG tube kinked Status: Acute (14) Gastric distention Status: Acute History of Present Illness Date of Admission: 06/06/18 Chief Complaint: Here for rehabilitation, strengthening, prior to discharge home with spouse. The patient is a 78 year old Male with below past medical history TCU resident here for rehabilitation after hospitalization for chest pain, NSTEMI, underwent CABG x 5 05/13/2018, post-operative course complicated by atrial fibrillation, leukocytosis, acute kidney injury. 06/04/2018 General surgery consulted for KUB showing gastric outlet obstruction. NG tube placed, but kinked in nasopharynx. ENT removed kinked NG tube, and placed another NG tube. General surgery performed EGD showing gastric distention with retained contents but no gastric outlet obstruction. Patient NPO, IV fluids, NG to intermittent suction. Gastroparesis observed. Patient improved, NG tube removed. 06/06/2018 Admit to TCU with debility, here for rehabilitation, strengthening, prior to discharge home with spouse. Past Medical History Past Medical History (Chronic Problems): Chronic Problems Chest pain (Chronic) NSTEMI (non-ST elevated myocardial infarction) (Chronic) Coronary artery disease (Chronic) 5 vessel CABG on 05/13/2018 Left ventricular dysfunction (Chronic) Diabetes mellitus type 2 in obese (Chronic) Hypertension (Chronic) Hyperlipidemia (Chronic) BPH (benign prostatic hyperplasia) (Chronic) Atrial fibrillation (Chronic) Acute kidney injury (Chronic) GERD (gastroesophageal reflux disease) (Chronic) Allergies No Known Allergies Allergy (Verified 05/27/18 17:09) Home Medications: Ambulatory Orders Medication Instructions Recorded Acetaminophen 650 mg PO Q4H 05/27/18 Amiodarone HCl [Pacerone] 200 mg PO DAILY 05/27/18 Aspirin 81 mg PO DAILY 05/27/18 Atorvastatin Calcium 80 mg PO QHS 05/27/18 Clopidogrel Bisulfate [Plavix] 75 mg PO DAILY 05/27/18 Enoxaparin [Lovenox] 30 mg SC DAILY@0600 05/27/18 Finasteride [Proscar] 5 mg PO DAILY 05/27/18 Melatonin 3 mg PO QHS 05/27/18 Metformin HCl [Glucophage] 500 mg PO BIDCM 05/27/18 Multivitamin,Therapeutic [Thera] 1 each PO DAILY 05/27/18 Pantoprazole Sodium [Protonix] 40 mg PO DAILY 05/27/18 Tamsulosin HCl [Flomax] 0.4 mg PO QHS 05/27/18 Metoprolol Succinate 100 mg PO BID #0 06/06/18 Surgical History: coronary bypass surgery - X 5. Psychiatric History: No pertinent psych hx Lives: Spouse/ Significant Other Smoking Status: Former smoker Tobacco Use: Cigars Alcohol: None Drugs: None - *Family History Maternal History Items: No pertinent history Paternal History Items: No pertinent history Review of Systems Constitutional: Denies: Chills, Fever, Weight Change HEENT: Denies: Head Aches, Sinus Congestion, Sinus Drainage Cardiovascular: Denies: Chest Pain, Palpitations Respiratory: Denies: Cough, Shortness of breath at rest, Sputum production Gastrointestinal: Denies: Abdominal Pain, Nausea, Vomiting Genitourinary: Denies: Dysuria Musculoskeletal: Denies: Joint Pain, Joint Tenderness Skin: Denies: Rash, Wounds Neurological: Denies: Numbness, Tingling, Focal weakness Psychiatric: Denies: Anxiety, Depression, Homicidal Ideations, Suicidal Ideations Hematologic/ Lymphatic: Denies: Easy Bruising, Easy Bleeding VTE Information - Inpt Only VTE Present on Admission: No VTE Mechan Device Prophylaxis: Knee High BERTO Hose VTE Pharm Prophylaxis ordered?: Yes Patient Problems: Active and Suspected Problems Gastroparesis (Acute) - Physical Exam General: Alert, Oriented x3, Cooperative HEENT: Atraumatic, PERRLA, EOMI, Normocephalic Neck: Supple, No JVD, Negative Carotid Bruits Lungs: Clear to auscultation, Normal air movement Cardiovascular: Regular rate, No murmurs Abdomen: Bowel Sounds Present, Soft, Non Tender Extremities: No edema, Capillary Refill Less than 3 Seconds Skin: No rashes, No breakdown Musculoskeletal: No Tenderness to Palpation of Joints or Extremities Neurological: Cranial nerves II-XII grossly intact Psych/Mental Status: Normal Affect, Appropriate Vital Signs Pulse BP 114 H 123/78 H 06/06/18 18:25 06/06/18 18:25 Weight: 93.416 kg Body Mass Index (BMI) 30.4 Intake and Output for Last 24 Hours 06/04/18 06/05/18 06/06/18 23:59 23:59 23:59 Intake Total 180 / 180 Balance 180 / 180 Assessment/Plan All Active Problems Encounter for nasogastric (NG) tube placement (Acute) Gastric outlet obstruction (Acute) NG tube kinked (Acute) Gastric distention (Acute) Gastroparesis (Acute) 78 year old male with below past medical history recovering from recent CABG x 5 , hospitalized for kinked NG tube, and X-ray showing gastric outlet obstruction , later ruled out, admitted to TCU with debility, here for rehabilitation, strengthening, prior to discharge home with spouse. * Debility - PT/OT. * Pain - Tylenol 1000MG Q8H PRN mild pain. * Bowel - Miralax 17GM daily, Senna/colace 1 tablet BID, Dulcolax 10MG PO daily PRN. * Pneumonia vaccination - Administer Prevnar 13 and/or Pneumovax 23 as necessary. * DVT prophylaxis - Lovenox 30MG SC daily. * Atrial Fibrillation - Metoprolol succinate 100MG BID, Amiodarone 200MG daily, no systemic anticoagulation because episode was transient. * Coronary Artery Disease status post CABG x 5 - Metoprolol succinate 100MG BID , Plavix 75MG daily, Aspirin 81MG daily. * Hyperlipidemia - Atorvastatin 80MG QHS. * BPH - Tamsulosin 0.4MG QHS, Finasteride 5MG daily. * Insomnia - Melatonin 3MG QHS. * Diabetes Mellitus II - Metforin 500MG BID. * Nutrition - MVI daily. * GERD - Pantoprazole 40MG daily.
[2018-06-06] MEDS: Atorvastatin Calcium 80 MG Tablet PO (20:49)
[2018-06-06] MEDS: Tamsulosin HCl 0.4 MG Capsule PO (20:50)
[2018-06-06] MEDS: MELATONIN 3 MG TABLET PO (20:50)
[2018-06-07] MEDS: Enoxaparin 30 MG/0.3 ML Syringe SC (05:15)
[2018-06-07] MEDS: Clopidogrel Bisulfate 75 MG Tablet PO (05:16)
[2018-06-07] MEDS: Pantoprazole Sodium 40 MG Tablet PO (05:16)
[2018-06-07] MEDS: Senna/Docusate Sodium 1 Tablet PO ×2 (05:16→16:31)
[2018-06-07] MEDS: Finasteride 5 MG Tablet PO (05:16)
[2018-06-07] MEDS: Menthol/Lanolin/Calamine/Znox 113 GM Tube 1 APPLIC TOPICAL ×2 (05:24→20:37)
[2018-06-07 05:25] VITALS: BP 127/76; PULSE 97
[2018-06-07] MEDS: Amiodarone 200 MG Tablet PO (05:25)
[2018-06-07] MEDS: Metoprolol(XL)Succ 100 MG Tablet PO ×2 (05:25→16:32)
[2018-06-07] MEDS: Glucerna Shake 120 ML LIQUID PO ×4 (05:26→20:37)
[2018-06-07 05:33] LABS: White Blood Count 5.2 K/mm3 (4.4-11.0)
[2018-06-07 05:34] LABS: Basophil% 0.2 % (0-1); Eosinophils% 3.8 % (0-5); Hematocrit 32.7 % (40-54); Hemoglobin 10.1 g/dl (13.0-16.5); Lymphocyte % 16.7 % (19-41); Mean Corp Hgb Conc 30.9 g/gl (32-36); Mean Corpuscular Hgb 29.3 pg (27.0-32.0); Mean Corpuscular Volume 94.8 fL (80-94); Mean Platelet Vol. 9.5 fl (6.2-12.0); Monocyte% 4.8 % (0-10); Neutrophil % 74.5 % (47-70); POSITIVE COUNT NO; POSITIVE DIFFERENTIAL NO; POSITIVE MORPHOLOGY NO; Platelet Count 124 K/mm3 (150-450); RBC Distribution Width CV 14.5 % (11.6-14.6); RBC Distribution Width SD 50.1 fl (35.1-43.9); Red Blood Count 3.45 M/mm3 (4.6-6.2)
[2018-06-07 05:35] LABS: Absolute Lymphocyte Count 0.87 X10^3/ul (0.83-4.51); Absolute Neutrophil Count 3.9 X10^3/uL (2.0-7.7); Basophil# 0.01 X10^3/uL; Lymphocyte # 0.87 X10^3/ul (4.0); Monocyte# 0.25 X10^3/uL; Neutrophil # 3.88 X10^3/uL (2.7-7.7)
[2018-06-07 05:46] LABS: Anion Gap 8 (5-15); BUN 7 mg/dL (7-18); BUN/Creat Ratio 9.8 RATIO (10-20); Calcium,Total 8.6 mg/dL (8.5-10.1); Chloride 108 mmol/L (98-107); Creatinine, Serum 0.72 mg/dL (0.70-1.30); EST Glomerular Filtration Rate 113 mL/min (>60); Est Glom Filt Rate - Afr Amer 137 mL/min (>60); Estimated Creatinine Clearance 60.88 ml/min; Glucose 142 mg/dL (74-106); Sodium Level 144 mmol/L (136-145)
[2018-06-07 07:01] LABS: Bedside Glucose 173 mg/dL (70-110)
[2018-06-07] MEDS: Aspirin 81 MG TAB.CHEW PO (09:24)
[2018-06-07] MEDS: Tuberculin,Purif.prot.deriv. 50 TU/ML Vial 5 ML ID (09:24)
[2018-06-07] MEDS: Multivitamins,Therapeutic Tablet 1 TABLET PO (09:24)
--- NOTE | 2018-06-07 11:33 | PCM.PN.RX ---
<NoeMauricio barroso D - Last Filed: 06/07/18 11:33> Progress Note - Pharmacy Subjective: TCU Admission Objective: Allergies No Known Allergies Allergy (Verified 05/27/18 17:09) Current Medications Generic Name Dose Route Start Last Admin Trade Name Freq PRN Reason Stop Dose Admin Acetaminophen 1,000 mg 06/06/18 19:52 Tylenol PO Q8H PRN MILD PAIN (1-3/10) Amiodarone HCl 200 mg 06/07/18 06:00 06/07/18 05:25 Cordarone PO 200 mg DAILY TEO Administration Aspirin 81 mg 06/07/18 08:00 06/07/18 09:24 Aspirin, Baby PO 81 mg DAILY@0800 TEO Administration Atorvastatin Calcium 80 mg 06/06/18 22:00 06/06/18 20:49 Lipitor PO 80 mg QHS TEO Administration Bacitracin 1 applic 06/07/18 18:00 Bacitracin Ointment TOPICAL BID [facility] Protocol Bisacodyl 10 mg 06/06/18 17:52 Dulcolax PO DAILY PRN Constipation Calamine/Phenol 1 applic 06/07/18 06:00 06/07/18 05:24 Calmoseptine Ointment TOPICAL 1 applicatio 0600,2200 TEO Administration Protocol Clopidogrel Bisulfate 75 mg 06/07/18 06:00 06/07/18 05:16 Plavix PO 75 mg DAILY TEO Administration Emollient Ointment 1 applic 06/07/18 22:00 Eucerin Intensive Repair TOPICAL 2200 [facility] Protocol Enoxaparin Sodium 30 mg 06/07/18 06:00 06/07/18 05:15 Lovenox SC 30 mg DAILY@0600 TEO Administration Finasteride 5 mg 06/07/18 06:00 06/07/18 05:16 Proscar PO 5 mg DAILY TEO Administration Melatonin 3 mg 06/06/18 22:00 06/06/18 20:50 Melatonin PO 3 mg QHS TEO Administration Metformin HCl 500 mg 06/07/18 08:00 06/07/18 09:24 Glucophage PO 500 mg BIDCM TEO Administration Metoprolol Succinate 100 mg 06/06/18 18:00 06/07/18 05:25 Toprol Xl (Beta Isidro) PO 100 mg BID TEO Administration Multivitamins 1 tablet 06/07/18 08:00 06/07/18 09:24 Multivitamin PO 1 tablet DAILY@0800 TEO Administration Nutritional Formula (Lactose Free) 120 ml 06/07/18 06:00 06/07/18 05:26 Glucerna Shake PO 120 ml 4X/DAY TEO Administration Pantoprazole Sodium 40 mg 06/07/18 06:00 06/07/18 05:16 Protonix PO 40 mg DAILY TEO Administration Polyethylene Glycol 17 gm 06/07/18 06:00 06/07/18 05:17 Miralax PO Not Given DAILY TEO Senna/Docusate Sodium 1 tablet 06/06/18 18:00 06/07/18 05:16 Senokot-S, Viridiana-Colace PO 1 tablet BID TEO Administration Tamsulosin HCl 0.4 mg 06/06/18 22:00 06/06/18 20:50 Flomax PO 0.4 mg QHS TEO Administration Tuberculin PPD 5 tu 06/14/18 10:00 Tubersol, Aplisol, Ppd ID 06/14/18 10:01 X1 ONE Problem List Gastroparesis (Acute) Vital Signs Temp Pulse Resp BP Pulse Ox 97.9 F 97 16 127/76 H 98 06/06/18 17:44 06/07/18 05:25 06/06/18 17:44 06/07/18 05:25 06/06/18 17:44 Oxygen Delivery Method Room Air Weight: 94.064 kg Body Mass Index (BMI) 30.4 Sodium 144 mmol/L (136-145) 06/07/18 05:10 Potassium 4.0 mmol/L (3.5-5.1) 06/07/18 05:10 Chloride 108 mmol/L (98-107) H 06/07/18 05:10 Carbon Dioxide 28.0 mmol/L (21.0-32.0) 06/07/18 05:10 Anion Gap 8 (5-15) 06/07/18 05:10 BUN 7 mg/dL (7-18) 06/07/18 05:10 Creatinine 0.72 mg/dL (0.70-1.30) 06/07/18 05:10 Est GFR (MDRD) Af Amer 137 mL/min (>60) 06/07/18 05:10 Est GFR (MDRD) Non-Af 113 mL/min (>60) 06/07/18 05:10 BUN/Creatinine Ratio 9.8 RATIO (10-20) L 06/07/18 05:10 Glucose 142 mg/dL (74-106) H 06/07/18 05:10 Assessment/Plan: 1) Pain APAP for mild pain. Continue to monitor prn medication use, daily pain scores. 2) Afib/CAD Amiodarone, ASA, atorvastatin, clopidogrel, metoprolol XL. Continue to monitor BP/HR, lipids, for chest pain. 3) DM2 Metformin daily. Continue to monitor BGT, s/s GI distress/ 4) BPH Tamsulosin, finasteride. Continue to monitor for sxs. 5) GI Pantoprazole daily. Continue to monitor for GI sxs. 6) Nutrition Multivitamin, Glucerna. Continue to monitor clinically. 7) Derm Calmoseptine, emollient. Continue to monitor clinically. ) Sleep Melatonin at HS. Continue to monitor for insomnia. ) DVT PPx Enoxaparin daily. Continue to monitor s/s bleeding/clot. Psychotropic Medications: None Unnecessary Medications: None Bowel Regimen: 8) Senna/s, PEG, prn bisacodyl. Continue to monitor prn medication use, for constipation/diarrhea. Date of Note:: 06/07/18 - Provider Comments Provider responsibility: Provider responsible to enter orders to implement recommendations <Arnulfo Ennis Chi - Last Filed: 06/07/18 16:56> Progress Note - Pharmacy Subjective: [] Objective: Allergies No Known Allergies Allergy (Verified 05/27/18 17:09) Current Medications Generic Name Dose Route Start Last Admin Trade Name Freq PRN Reason Stop Dose Admin Acetaminophen 1,000 mg 06/06/18 19:52 Tylenol PO Q8H PRN MILD PAIN (1-3/10) Amiodarone HCl 200 mg 06/07/18 06:00 06/07/18 05:25 Cordarone PO 200 mg DAILY TEO Administration Aspirin 81 mg 06/07/18 08:00 06/07/18 09:24 Aspirin, Baby PO 81 mg DAILY@0800 TEO Administration Atorvastatin Calcium 80 mg 06/06/18 22:00 06/06/18 20:49 Lipitor PO 80 mg QHS TEO Administration Bacitracin 1 applic 06/07/18 18:00 06/07/18 16:30 Bacitracin Ointment TOPICAL 1 applicatio BID TEO Administration Protocol Bisacodyl 10 mg 06/06/18 17:52 Dulcolax PO DAILY PRN Constipation Calamine/Phenol 1 applic 06/07/18 06:00 06/07/18 05:24 Calmoseptine Ointment TOPICAL 1 applicatio 0600,2199 [facility] Administration Protocol Clopidogrel Bisulfate 75 mg 06/07/18 06:00 06/07/18 05:16 Plavix PO 75 mg DAILY TEO Administration Emollient Ointment 1 applic 06/07/18 22:00 Eucerin Intensive Repair TOPICAL 2199 [facility] Protocol Enoxaparin Sodium 30 mg 06/07/18 06:00 06/07/18 05:15 Lovenox SC 30 mg DAILY@0600 [facility] Administration Finasteride 5 mg 06/07/18 06:00 06/07/18 05:16 Proscar PO 5 mg DAILY TEO Administration Melatonin 3 mg 06/06/18 22:00 06/06/18 20:50 Melatonin PO 3 mg QHS [facility] Administration Metformin HCl 500 mg 06/07/18 08:00 06/07/18 16:31 Glucophage PO 500 mg BIDCM [facility] Administration Metoprolol Succinate 100 mg 06/06/18 18:00 06/07/18 16:32 Toprol Xl (Beta Isidro) PO 100 mg BID [facility] Administration Multivitamins 1 tablet 06/07/18 08:00 06/07/18 09:24 Multivitamin PO 1 tablet DAILY@0800 [facility] Administration Nutritional Formula (Lactose Free) 120 ml 06/07/18 06:00 06/07/18 16:30 Glucerna Shake PO 120 ml 4X/DAY [facility] Administration Pantoprazole Sodium 40 mg 06/07/18 06:00 06/07/18 05:16 Protonix PO 40 mg DAILY TEO Administration Polyethylene Glycol 17 gm 06/07/18 06:00 06/07/18 05:17 Miralax PO Not Given DAILY [facility] Senna/Docusate Sodium 1 tablet 06/06/18 18:00 06/07/18 16:31 Senokot-S, Viridiana-Colace PO 1 tablet BID TEO Administration Tamsulosin HCl 0.4 mg 06/06/18 22:00 06/06/18 20:50 Flomax PO 0.4 mg QHS [facility] Administration Tuberculin PPD 5 tu 06/14/18 10:00 Tubersol, Aplisol, Ppd ID 06/14/18 10:01 X1 ONE Problem List Gastroparesis (Acute) Vital Signs Temp Pulse Resp BP Pulse Ox 97.5 F L 91 18 110/62 98 06/07/18 16:00 06/07/18 16:32 06/07/18 16:00 06/07/18 16:00 06/07/18 16:00 Oxygen Delivery Method Room Air Weight: 94.064 kg Body Mass Index (BMI) 30.4 Sodium 144 mmol/L (136-145) 06/07/18 05:10 Potassium 4.0 mmol/L (3.5-5.1) 06/07/18 05:10 Chloride 108 mmol/L (98-107) H 06/07/18 05:10 Carbon Dioxide 28.0 mmol/L (21.0-32.0) 06/07/18 05:10 Anion Gap 8 (5-15) 06/07/18 05:10 BUN 7 mg/dL (7-18) 06/07/18 05:10 Creatinine 0.72 mg/dL (0.70-1.30) 06/07/18 05:10 Est GFR (MDRD) Af Amer 137 mL/min (>60) 06/07/18 05:10 Est GFR (MDRD) Non-Af 113 mL/min (>60) 06/07/18 05:10 BUN/Creatinine Ratio 9.8 RATIO (10-20) L 06/07/18 05:10 Glucose 142 mg/dL (74-106) H 06/07/18 05:10 Assessment/Plan: Psychotropic Medications: Unnecessary Medications: Bowel Regimen: - Provider Comments Provider responsibility: Provider responsible to enter orders to implement recommendations Provider Comments to Recommendations by Pharmacy: Agree
--- NOTE | 2018-06-07 12:02 | PHA.CONS_ITS ---
<NoeMauricio barroso D - Last Filed: 06/07/18 11:33> Progress Note - Pharmacy Subjective: TCU Admission Objective: Allergies No Known Allergies Allergy (Verified 05/27/18 17:09) Current Medications Generic Name Dose Route Start Last Admin Trade Name Freq PRN Reason Stop Dose Admin Acetaminophen 1,000 mg 06/06/18 19:52 Tylenol PO Q8H PRN MILD PAIN (1-3/10) Amiodarone HCl 200 mg 06/07/18 06:00 06/07/18 05:25 Cordarone PO 200 mg DAILY TEO Administration Aspirin 81 mg 06/07/18 08:00 06/07/18 09:24 Aspirin, Baby PO 81 mg DAILY@0800 TEO Administration Atorvastatin Calcium 80 mg 06/06/18 22:00 06/06/18 20:49 Lipitor PO 80 mg QHS TEO Administration Bacitracin 1 applic 06/07/18 18:00 Bacitracin Ointment TOPICAL BID [facility] Protocol Bisacodyl 10 mg 06/06/18 17:52 Dulcolax PO DAILY PRN Constipation Calamine/Phenol 1 applic 06/07/18 06:00 06/07/18 05:24 Calmoseptine Ointment TOPICAL 1 applicatio 0600,2200 TEO Administration Protocol Clopidogrel Bisulfate 75 mg 06/07/18 06:00 06/07/18 05:16 Plavix PO 75 mg DAILY TEO Administration Emollient Ointment 1 applic 06/07/18 22:00 Eucerin Intensive Repair TOPICAL 2200 [facility] Protocol Enoxaparin Sodium 30 mg 06/07/18 06:00 06/07/18 05:15 Lovenox SC 30 mg DAILY@0600 TEO Administration Finasteride 5 mg 06/07/18 06:00 06/07/18 05:16 Proscar PO 5 mg DAILY TEO Administration Melatonin 3 mg 06/06/18 22:00 06/06/18 20:50 Melatonin PO 3 mg QHS TEO Administration Metformin HCl 500 mg 06/07/18 08:00 06/07/18 09:24 Glucophage PO 500 mg BIDCM TEO Administration Metoprolol Succinate 100 mg 06/06/18 18:00 06/07/18 05:25 Toprol Xl (Beta Isidro) PO 100 mg BID TEO Administration Multivitamins 1 tablet 06/07/18 08:00 06/07/18 09:24 Multivitamin PO 1 tablet DAILY@0800 TEO Administration Nutritional Formula (Lactose Free) 120 ml 06/07/18 06:00 06/07/18 05:26 Glucerna Shake PO 120 ml 4X/DAY TEO Administration Pantoprazole Sodium 40 mg 06/07/18 06:00 06/07/18 05:16 Protonix PO 40 mg DAILY TEO Administration Polyethylene Glycol 17 gm 06/07/18 06:00 06/07/18 05:17 Miralax PO Not Given DAILY TEO Senna/Docusate Sodium 1 tablet 06/06/18 18:00 06/07/18 05:16 Senokot-S, Viridiana-Colace PO 1 tablet BID TEO Administration Tamsulosin HCl 0.4 mg 06/06/18 22:00 06/06/18 20:50 Flomax PO 0.4 mg QHS TEO Administration Tuberculin PPD 5 tu 06/14/18 10:00 Tubersol, Aplisol, Ppd ID 06/14/18 10:01 X1 ONE Problem List Gastroparesis (Acute) Vital Signs Temp Pulse Resp BP Pulse Ox 97.9 F 97 16 127/76 H 98 06/06/18 17:44 06/07/18 05:25 06/06/18 17:44 06/07/18 05:25 06/06/18 17:44 Oxygen Delivery Method Room Air Weight: 94.064 kg Body Mass Index (BMI) 30.4 Sodium 144 mmol/L (136-145) 06/07/18 05:10 Potassium 4.0 mmol/L (3.5-5.1) 06/07/18 05:10 Chloride 108 mmol/L (98-107) H 06/07/18 05:10 Carbon Dioxide 28.0 mmol/L (21.0-32.0) 06/07/18 05:10 Anion Gap 8 (5-15) 06/07/18 05:10 BUN 7 mg/dL (7-18) 06/07/18 05:10 Creatinine 0.72 mg/dL (0.70-1.30) 06/07/18 05:10 Est GFR (MDRD) Af Amer 137 mL/min (>60) 06/07/18 05:10 Est GFR (MDRD) Non-Af 113 mL/min (>60) 06/07/18 05:10 BUN/Creatinine Ratio 9.8 RATIO (10-20) L 06/07/18 05:10 Glucose 142 mg/dL (74-106) H 06/07/18 05:10 Assessment/Plan: 1) Pain APAP for mild pain. Continue to monitor prn medication use, daily pain scores. 2) Afib/CAD Amiodarone, ASA, atorvastatin, clopidogrel, metoprolol XL. Continue to monitor BP/HR, lipids, for chest pain. 3) DM2 Metformin daily. Continue to monitor BGT, s/s GI distress/ 4) BPH Tamsulosin, finasteride. Continue to monitor for sxs. 5) GI Pantoprazole daily. Continue to monitor for GI sxs. 6) Nutrition Multivitamin, Glucerna. Continue to monitor clinically. 7) Derm Calmoseptine, emollient. Continue to monitor clinically. ) Sleep Melatonin at HS. Continue to monitor for insomnia. ) DVT PPx Enoxaparin daily. Continue to monitor s/s bleeding/clot. Psychotropic Medications: None Unnecessary Medications: None Bowel Regimen: 8) Senna/s, PEG, prn bisacodyl. Continue to monitor prn medication use, for constipation/diarrhea. Date of Note:: 06/07/18 - Provider Comments Provider responsibility: Provider responsible to enter orders to implement recommendations <Arnulfo Ennis Chi - Last Filed: 06/07/18 16:56> Progress Note - Pharmacy Subjective: [] Objective: Allergies No Known Allergies Allergy (Verified 05/27/18 17:09) Current Medications Generic Name Dose Route Start Last Admin Trade Name Freq PRN Reason Stop Dose Admin Acetaminophen 1,000 mg 06/06/18 19:52 Tylenol PO Q8H PRN MILD PAIN (1-3/10) Amiodarone HCl 200 mg 06/07/18 06:00 06/07/18 05:25 Cordarone PO 200 mg DAILY TEO Administration Aspirin 81 mg 06/07/18 08:00 06/07/18 09:24 Aspirin, Baby PO 81 mg DAILY@0800 TEO Administration Atorvastatin Calcium 80 mg 06/06/18 22:00 06/06/18 20:49 Lipitor PO 80 mg QHS TEO Administration Bacitracin 1 applic 06/07/18 18:00 06/07/18 16:30 Bacitracin Ointment TOPICAL 1 applicatio BID TEO Administration Protocol Bisacodyl 10 mg 06/06/18 17:52 Dulcolax PO DAILY PRN Constipation Calamine/Phenol 1 applic 06/07/18 06:00 06/07/18 05:24 Calmoseptine Ointment TOPICAL 1 applicatio 0600,2199 [facility] Administration Protocol Clopidogrel Bisulfate 75 mg 06/07/18 06:00 06/07/18 05:16 Plavix PO 75 mg DAILY TOE Administration Emollient Ointment 1 applic 06/07/18 22:00 Eucerin Intensive Repair TOPICAL 2199 [facility] Protocol Enoxaparin Sodium 30 mg 06/07/18 06:00 06/07/18 05:15 Lovenox SC 30 mg DAILY@0600 [facility] Administration Finasteride 5 mg 06/07/18 06:00 06/07/18 05:16 Proscar PO 5 mg DAILY TEO Administration Melatonin 3 mg 06/06/18 22:00 06/06/18 20:50 Melatonin PO 3 mg QHS [facility] Administration Metformin HCl 500 mg 06/07/18 08:00 06/07/18 16:31 Glucophage PO 500 mg BIDCM [facility] Administration Metoprolol Succinate 100 mg 06/06/18 18:00 06/07/18 16:32 Toprol Xl (Beta Isidro) PO 100 mg BID [facility] Administration Multivitamins 1 tablet 06/07/18 08:00 06/07/18 09:24 Multivitamin PO 1 tablet DAILY@0800 [facility] Administration Nutritional Formula (Lactose Free) 120 ml 06/07/18 06:00 06/07/18 16:30 Glucerna Shake PO 120 ml 4X/DAY [facility] Administration Pantoprazole Sodium 40 mg 06/07/18 06:00 06/07/18 05:16 Protonix PO 40 mg DAILY TEO Administration Polyethylene Glycol 17 gm 06/07/18 06:00 06/07/18 05:17 Miralax PO Not Given DAILY [facility] Senna/Docusate Sodium 1 tablet 06/06/18 18:00 06/07/18 16:31 Senokot-S, Viridiana-Colace PO 1 tablet BID TEO Administration Tamsulosin HCl 0.4 mg 06/06/18 22:00 06/06/18 20:50 Flomax PO 0.4 mg QHS [facility] Administration Tuberculin PPD 5 tu 06/14/18 10:00 Tubersol, Aplisol, Ppd ID 06/14/18 10:01 X1 ONE Problem List Gastroparesis (Acute) Vital Signs Temp Pulse Resp BP Pulse Ox 97.5 F L 91 18 110/62 98 06/07/18 16:00 06/07/18 16:32 06/07/18 16:00 06/07/18 16:00 06/07/18 16:00 Oxygen Delivery Method Room Air Weight: 94.064 kg Body Mass Index (BMI) 30.4 Sodium 144 mmol/L (136-145) 06/07/18 05:10 Potassium 4.0 mmol/L (3.5-5.1) 06/07/18 05:10 Chloride 108 mmol/L (98-107) H 06/07/18 05:10 Carbon Dioxide 28.0 mmol/L (21.0-32.0) 06/07/18 05:10 Anion Gap 8 (5-15) 06/07/18 05:10 BUN 7 mg/dL (7-18) 06/07/18 05:10 Creatinine 0.72 mg/dL (0.70-1.30) 06/07/18 05:10 Est GFR (MDRD) Af Amer 137 mL/min (>60) 06/07/18 05:10 Est GFR (MDRD) Non-Af 113 mL/min (>60) 06/07/18 05:10 BUN/Creatinine Ratio 9.8 RATIO (10-20) L 06/07/18 05:10 Glucose 142 mg/dL (74-106) H 06/07/18 05:10 Assessment/Plan: Psychotropic Medications: Unnecessary Medications: Bowel Regimen: - Provider Comments Provider responsibility: Provider responsible to enter orders to implement recommendations Provider Comments to Recommendations by Pharmacy: Agree
--- NOTE | 2018-06-07 15:12 | NURSING ---
dr. Ennis updated on pt urine culture, no new orders.
[2018-06-07 16:00] VITALS: BP 110/62; PULSE 91; RESP 18; TEMP 36.4; O2SAT 98
[2018-06-07] MEDS: BACITRACIN 15 GM Tube 1 APPLIC TOPICAL (16:30)
[2018-06-07 16:32] VITALS: PULSE 91
[2018-06-07] MEDS: Tamsulosin HCl 0.4 MG Capsule PO (20:39)
[2018-06-07] MEDS: Atorvastatin Calcium 80 MG Tablet PO (20:39)
[2018-06-07] MEDS: MELATONIN 3 MG TABLET PO (20:40)
[2018-06-07 20:59] VITALS: PULSE 72; RESP 18
[2018-06-08] MEDS: Amiodarone 200 MG Tablet PO (05:37)
[2018-06-08] MEDS: BACITRACIN 15 GM Tube 1 APPLIC TOPICAL ×2 (05:37→17:05)
[2018-06-08] MEDS: Menthol/Lanolin/Calamine/Znox 113 GM Tube 1 APPLIC TOPICAL ×2 (05:37→21:41)
[2018-06-08] MEDS: Glucerna Shake 120 ML LIQUID PO ×4 (05:37→21:41)
[2018-06-08] MEDS: Clopidogrel Bisulfate 75 MG Tablet PO (05:38)
[2018-06-08] MEDS: Enoxaparin 30 MG/0.3 ML Syringe SC (05:38)
[2018-06-08] MEDS: Pantoprazole Sodium 40 MG Tablet PO (05:38)
[2018-06-08 05:39] VITALS: PULSE 80
[2018-06-08] MEDS: Metoprolol(XL)Succ 100 MG Tablet PO ×2 (05:39→17:10)
[2018-06-08] MEDS: Senna/Docusate Sodium 1 Tablet PO ×2 (05:39→17:05)
[2018-06-08] MEDS: Finasteride 5 MG Tablet PO (05:39)
[2018-06-08 07:21] LABS: Bedside Glucose 133 mg/dL (70-110)
[2018-06-08] MEDS: Aspirin 81 MG TAB.CHEW PO (07:50)
[2018-06-08] MEDS: Multivitamins,Therapeutic Tablet 1 TABLET PO (07:50)
[2018-06-08 10:00] VITALS: PULSE 88; RESP 18; O2SAT 98
--- NOTE | 2018-06-08 12:41 | PCM.HP.ID ---
Problem List (1) VRE (vancomycin resistant enterococcus) culture positive Status: Acute Reason for Consult: vre Consulted by: Dr. Ennis History of Present Illness: The patient is a 78 year old M with recent perez placement, now in TCU. Denies fever, dysuria, urine changes, abd/flank pain. No n/v. Feeling fine. Hoping to get perez out tomorrow. Ucx now with VRE. Full ROS performed and neg except as noted above. - Medical History Past Medical History (Chronic Problems): Chronic Problems Chest pain (Chronic) NSTEMI (non-ST elevated myocardial infarction) (Chronic) Coronary artery disease (Chronic) 5 vessel CABG on 05/13/2018 Left ventricular dysfunction (Chronic) Diabetes mellitus type 2 in obese (Chronic) Hypertension (Chronic) Hyperlipidemia (Chronic) BPH (benign prostatic hyperplasia) (Chronic) Atrial fibrillation (Chronic) Acute kidney injury (Chronic) GERD (gastroesophageal reflux disease) (Chronic) Allergies/Adverse Reactions: Allergies No Known Allergies Allergy (Verified 05/27/18 17:09) Home Medications: Ambulatory Orders Medication Instructions Recorded Acetaminophen 650 mg PO Q4H 05/27/18 Amiodarone HCl [Pacerone] 200 mg PO DAILY 05/27/18 Aspirin 81 mg PO DAILY 05/27/18 Atorvastatin Calcium 80 mg PO QHS 05/27/18 Clopidogrel Bisulfate [Plavix] 75 mg PO DAILY 05/27/18 Enoxaparin [Lovenox] 30 mg SC DAILY@0600 05/27/18 Finasteride [Proscar] 5 mg PO DAILY 05/27/18 Melatonin 3 mg PO QHS 05/27/18 Metformin HCl [Glucophage] 500 mg PO BIDCM 05/27/18 Multivitamin,Therapeutic [Thera] 1 each PO DAILY 05/27/18 Pantoprazole Sodium [Protonix] 40 mg PO DAILY 05/27/18 Tamsulosin HCl [Flomax] 0.4 mg PO QHS 05/27/18 Metoprolol Succinate 100 mg PO BID #0 06/06/18 Vital Signs Temp Pulse Resp BP Pulse Ox 97.5 F L 80 18 110/62 98 06/07/18 16:00 06/08/18 05:39 06/07/18 20:59 06/07/18 16:00 06/07/18 16:00 Oxygen Delivery Method Room Air Weight: 94.064 kg Body Mass Index (BMI) 30.4 reviewed - Other Studies Radiology: [] Other Studies: [] Route of nutrition/ use of supplements: [] Nutritional Intake: [] IV Site: [] Perez Catheter: [] - Physical Exam General: Alert, Cooperative, No apparent distress HEENT: Atraumatic, PERRLA, EOMI Neck: Supple, No Nodes Lungs: Clear to auscultation, Normal air movement Cardiovascular: Regular rate, Regular Rhythm Abdomen: Soft, Non Tender, Non-Distended Extremities: No edema Skin: No rashes Musculoskeletal: No Tenderness to Palpation of Joints or Extremities Neurological: Cranial nerves II-XII grossly intact - Assessment/Plan Antibiotics: [] Assessment/Plan: [] Active and Suspected Problems Gastroparesis (Acute) VRE (+) ucx - Consistent with colonization. Asymptomatic, no pyuria. Perez in place. No need for abx at this time. Recommend perez removal when able. Will follow as needed, thank you.
[2018-06-08 16:00] VITALS: BP 118/68; PULSE 92; RESP 20; TEMP 35.8; O2SAT 94
[2018-06-08 17:10] VITALS: BP 118/68; PULSE 92
--- NOTE | 2018-06-08 18:56 | NURSING ---
Pt prevnar not given at this time, Pt thinks he has previously had vaccine, just waiting to check with his .
[2018-06-08] MEDS: Atorvastatin Calcium 80 MG Tablet PO (21:42)
[2018-06-08] MEDS: Tamsulosin HCl 0.4 MG Capsule PO (21:43)
[2018-06-08] MEDS: MELATONIN 3 MG TABLET PO (21:43)
[2018-06-09] MEDS: Menthol/Lanolin/Calamine/Znox 113 GM Tube 1 APPLIC TOPICAL ×2 (05:43→21:27)
[2018-06-09] MEDS: Glucerna Shake 120 ML LIQUID PO ×3 (05:44→21:24)
[2018-06-09] MEDS: BACITRACIN 15 GM Tube 1 APPLIC TOPICAL ×2 (05:45→17:55)
[2018-06-09] MEDS: Clopidogrel Bisulfate 75 MG Tablet PO (05:45)
[2018-06-09] MEDS: Amiodarone 200 MG Tablet PO (05:45)
[2018-06-09 05:46] VITALS: BP 144/86; PULSE 100
[2018-06-09] MEDS: Pantoprazole Sodium 40 MG Tablet PO (05:46)
[2018-06-09] MEDS: Finasteride 5 MG Tablet PO (05:46)
[2018-06-09] MEDS: Metoprolol(XL)Succ 100 MG Tablet PO ×2 (05:46→17:55)
[2018-06-09] MEDS: Senna/Docusate Sodium 1 Tablet PO ×2 (05:46→17:55)
[2018-06-09] MEDS: Enoxaparin 30 MG/0.3 ML Syringe SC (05:47)
[2018-06-09 06:00] VITALS: PULSE 100; RESP 20; O2SAT 94
[2018-06-09 07:06] LABS: Bedside Glucose 145 mg/dL (70-110)
[2018-06-09] MEDS: Multivitamins,Therapeutic Tablet 1 TABLET PO (08:37)
[2018-06-09] MEDS: Aspirin 81 MG TAB.CHEW PO (08:37)
--- NOTE | 2018-06-09 10:00 | NURSING ---
Pt stating that Pt is up to date with vaccine as far as she knows, she will be in contact with physican to see if another vaccine is needed, but declines at this time.
--- NOTE | 2018-06-09 12:26 | PCM.CONS.U ---
Reason for Consult Date of Consultation: 06/09/18 Reason for Consultation: 78-year-old male history of cardiac surgery and urinary retention and BPH with obstruction History of Present Illness: The patient is a 78 year old male who had bypass surgery he is here for rehab, still has a catheter and has not been able to urinate he is on medication for BPH which is been taken. He has finally been able to walk around and be more active. Past Medical History Past Medical History (Chronic Problems): Chronic Problems Chest pain (Chronic) NSTEMI (non-ST elevated myocardial infarction) (Chronic) Coronary artery disease (Chronic) 5 vessel CABG on 05/13/2018 Left ventricular dysfunction (Chronic) Diabetes mellitus type 2 in obese (Chronic) Hypertension (Chronic) Hyperlipidemia (Chronic) BPH (benign prostatic hyperplasia) (Chronic) Atrial fibrillation (Chronic) Acute kidney injury (Chronic) GERD (gastroesophageal reflux disease) (Chronic) Allergies No Known Allergies Allergy (Verified 05/27/18 17:09) Home Medications: Ambulatory Orders Medication Instructions Recorded Acetaminophen 650 mg PO Q4H 05/27/18 Amiodarone HCl [Pacerone] 200 mg PO DAILY 05/27/18 Aspirin 81 mg PO DAILY 05/27/18 Atorvastatin Calcium 80 mg PO QHS 05/27/18 Clopidogrel Bisulfate [Plavix] 75 mg PO DAILY 05/27/18 Enoxaparin [Lovenox] 30 mg SC DAILY@0600 05/27/18 Finasteride [Proscar] 5 mg PO DAILY 05/27/18 Melatonin 3 mg PO QHS 05/27/18 Metformin HCl [Glucophage] 500 mg PO BIDCM 05/27/18 Multivitamin,Therapeutic [Thera] 1 each PO DAILY 05/27/18 Pantoprazole Sodium [Protonix] 40 mg PO DAILY 05/27/18 Tamsulosin HCl [Flomax] 0.4 mg PO QHS 05/27/18 Metoprolol Succinate 100 mg PO BID #0 06/06/18 Surgical History: coronary bypass surgery - X 5. Psychiatric History: No pertinent psych hx Lives: Spouse/ Significant Other Smoking Status: Former smoker Tobacco Use: Cigars Alcohol: None Drugs: None - *Family History Maternal History Items: No pertinent history Paternal History Items: No pertinent history Review of Systems Constitutional: Denies: Chills, Fever, Weight Change HEENT: Denies: Head Aches, Sinus Congestion, Sinus Drainage Cardiovascular: Denies: Chest Pain, Palpitations Respiratory: Denies: Cough, Shortness of breath at rest, Sputum production Gastrointestinal: Denies: Abdominal Pain, Nausea, Vomiting Genitourinary: Reports: Retention. Denies: Dysuria Musculoskeletal: Denies: Joint Pain, Joint Tenderness Skin: Denies: Rash, Wounds Neurological: Denies: Numbness, Tingling, Focal weakness Psychiatric: Denies: Anxiety, Depression, Homicidal Ideations, Suicidal Ideations Hematologic/ Lymphatic: Denies: Easy Bruising, Easy Bleeding Physical Exam - Physical Exam Vital Signs Temp 96.5 F L 06/08/18 16:00 Pulse 100 06/09/18 06:00 Resp 20 H 06/09/18 06:00 BP 144/86 H 06/09/18 05:46 Pulse Ox 94 06/09/18 06:00 Intake & Output 06/07/18 06/08/18 06/09/18 23:59 23:59 23:59 Intake Total 720 / 720 800 / 800 600 / 600 Output Total 1000 / 1000 1450 / 1450 475 / 475 Balance -280 / -280 -650 / -650 125 / 125 Weight: 94.064 kg 94.064 kg Intake: Oral 720 / 720 800 / 800 600 / 600 Output: Urine 1000 / 1000 1450 / 1450 475 / 475 Other: Number of Bowel Movements 1 General: Alert HEENT: Atraumatic Oral: Moist Mucosa Neck: Supple Lungs: Normal air movement Cardiovascular: Regular rate Abdomen: Soft Lymphatic: No Cervical, Supraclavicular, or Inguinal Adenopathy Assessment/Plan All Active Problems Encounter for nasogastric (NG) tube placement (Acute) Gastric outlet obstruction (Acute) NG tube kinked (Acute) Gastric distention (Acute) Gastroparesis (Acute) VRE (vancomycin resistant enterococcus) culture positive (Acute) 78-year-old male with a history of BPH and obstruction currently in rehab after cardiac surgery. He is on his BPH medication I think we can do another voiding trial to get his catheter tomorrow morning to see if he is able to urinate. If he is able to urinate okay and we can leave the catheter out if he fails then we can replace a catheter. If he still cannot urinate you may have to go home with a catheter he can follow-up in the office for outpatient evaluation possible cystoscopy and further workup as to how to restore normal urination function. Call me with questions
[2018-06-09 15:30] VITALS: BP 126/57; PULSE 92; RESP 16; TEMP 36.4; O2SAT 94
[2018-06-09 17:55] VITALS: BP 126/57; PULSE 92
[2018-06-09] MEDS: Tamsulosin HCl 0.4 MG Capsule PO (21:26)
[2018-06-09] MEDS: MELATONIN 3 MG TABLET PO (21:26)
[2018-06-09] MEDS: Atorvastatin Calcium 80 MG Tablet PO (21:26)
[2018-06-10] MEDS: Glucerna Shake 120 ML LIQUID PO ×3 (05:10→17:01)
[2018-06-10 05:11] VITALS: BP 133/79; PULSE 91
[2018-06-10] MEDS: Metoprolol(XL)Succ 100 MG Tablet PO ×2 (05:11→17:00)
[2018-06-10] MEDS: Pantoprazole Sodium 40 MG Tablet PO (05:11)
[2018-06-10] MEDS: Polyethylene Glycol 3350 17 GM PACKET PO (05:11)
[2018-06-10] MEDS: Enoxaparin 30 MG/0.3 ML Syringe SC (05:11)
[2018-06-10] MEDS: Amiodarone 200 MG Tablet PO (05:11)
[2018-06-10] MEDS: Clopidogrel Bisulfate 75 MG Tablet PO (05:11)
[2018-06-10] MEDS: Finasteride 5 MG Tablet PO (05:11)
[2018-06-10] MEDS: Senna/Docusate Sodium 1 Tablet PO ×3 (05:12→17:00)
[2018-06-10] MEDS: Menthol/Lanolin/Calamine/Znox 113 GM Tube 1 APPLIC TOPICAL ×2 (05:13→22:44)
[2018-06-10] MEDS: BACITRACIN 15 GM Tube 1 APPLIC TOPICAL ×2 (05:14→17:00)
--- NOTE | 2018-06-10 05:22 | NURSING ---
Patient's perez catheter removed at this time per Dr. Petersen order for voiding trial. Patient tolerated procedure well.
[2018-06-10 07:10] LABS: Bedside Glucose 139 mg/dL (70-110)
[2018-06-10] MEDS: Multivitamins,Therapeutic Tablet 1 TABLET PO (09:25)
[2018-06-10] MEDS: Aspirin 81 MG TAB.CHEW PO (09:25)
[2018-06-10 15:12] VITALS: BP 122/72; PULSE 64; RESP 17; TEMP 36.2; O2SAT 90
--- NOTE | 2018-06-10 16:17 | CASEMGMT ---
Social Work BIMS and PHQ9 interviews completed on this date for MDS assessment. BIMS score 13/15. PHQ9 score 03/16. When ask about thoughts of harming self, pt states he has though of it and he would use a gun. Pt in room at this time. Pt states gun is not in facility and is at home. SW advised pt to secure the gun. PT stating clearly that he is safe in this facility and has no plan to harm self. Pt expressing frustration over need for Bypass surgery and with his knowledge of procedure prior to surgery. SW provided emotional support. Pt denies self harm at this time. LAVONNE Lamar
[2018-06-10 17:00] VITALS: PULSE 64
[2018-06-10 17:04] VITALS: O2SAT 95
[2018-06-10] MEDS: Atorvastatin Calcium 80 MG Tablet PO (22:43)
[2018-06-10] MEDS: Tamsulosin HCl 0.4 MG Capsule PO (22:44)
[2018-06-10] MEDS: MELATONIN 3 MG TABLET PO (22:44)
[2018-06-11] MEDS: Glucerna Shake 120 ML LIQUID PO ×4 (05:12→20:39)
[2018-06-11] MEDS: Menthol/Lanolin/Calamine/Znox 113 GM Tube 1 APPLIC TOPICAL ×2 (05:12→20:43)
[2018-06-11] MEDS: BACITRACIN 15 GM Tube 1 APPLIC TOPICAL ×2 (05:12→17:01)
[2018-06-11] MEDS: Pantoprazole Sodium 40 MG Tablet PO (05:13)
[2018-06-11 05:14] VITALS: PULSE 90
[2018-06-11] MEDS: Metoprolol(XL)Succ 100 MG Tablet PO ×2 (05:14→17:03)
[2018-06-11] MEDS: Clopidogrel Bisulfate 75 MG Tablet PO (05:14)
[2018-06-11] MEDS: Finasteride 5 MG Tablet PO (05:14)
[2018-06-11] MEDS: Enoxaparin 30 MG/0.3 ML Syringe SC (05:15)
[2018-06-11] MEDS: Amiodarone 200 MG Tablet PO (05:15)
[2018-06-11] MEDS: Polyethylene Glycol 3350 17 GM PACKET PO (05:15)
[2018-06-11 06:36] LABS: Bedside Glucose 137 mg/dL (70-110)
[2018-06-11 06:42] VITALS: PULSE 88; RESP 18; O2SAT 95
[2018-06-11] MEDS: Aspirin 81 MG TAB.CHEW PO (09:17)
[2018-06-11] MEDS: Multivitamins,Therapeutic Tablet 1 TABLET PO (09:17)
[2018-06-11 15:33] VITALS: BP 112/66; PULSE 85; RESP 20; TEMP 36.8; O2SAT 95
[2018-06-11] MEDS: Senna/Docusate Sodium 1 Tablet PO (17:02)
[2018-06-11 17:03] VITALS: BP 112/66; PULSE 85
[2018-06-11] MEDS: Atorvastatin Calcium 80 MG Tablet PO (20:40)
[2018-06-11] MEDS: MELATONIN 3 MG TABLET PO (20:41)
[2018-06-11] MEDS: Tamsulosin HCl 0.4 MG Capsule PO (20:41)
[2018-06-12] MEDS: Senna/Docusate Sodium 1 Tablet PO (05:31)
[2018-06-12] MEDS: Polyethylene Glycol 3350 17 GM PACKET PO (05:31)
[2018-06-12] MEDS: Finasteride 5 MG Tablet PO (05:31)
[2018-06-12] MEDS: Clopidogrel Bisulfate 75 MG Tablet PO (05:32)
[2018-06-12] MEDS: Amiodarone 200 MG Tablet PO (05:32)
[2018-06-12] MEDS: Pantoprazole Sodium 40 MG Tablet PO (05:32)
[2018-06-12 05:36] VITALS: BP 125/74; PULSE 76
[2018-06-12] MEDS: Glucerna Shake 120 ML LIQUID PO ×4 (05:36→20:30)
[2018-06-12] MEDS: Metoprolol(XL)Succ 100 MG Tablet PO ×2 (05:36→16:59)
[2018-06-12] MEDS: BACITRACIN 15 GM Tube 1 APPLIC TOPICAL ×2 (05:37→20:31)
[2018-06-12] MEDS: Menthol/Lanolin/Calamine/Znox 113 GM Tube 1 APPLIC TOPICAL ×2 (05:37→20:33)
[2018-06-12 05:38] VITALS: BP 125/74; PULSE 74; RESP 18; O2SAT 93
[2018-06-12 08:05] LABS: Bedside Glucose 128 mg/dL (70-110)
[2018-06-12] MEDS: Enoxaparin 30 MG/0.3 ML Syringe SC (08:09)
[2018-06-12] MEDS: Aspirin 81 MG TAB.CHEW PO (08:53)
[2018-06-12] MEDS: Multivitamins,Therapeutic Tablet 1 TABLET PO (08:53)
[2018-06-12 09:45] VITALS: PULSE 92; RESP 18; O2SAT 91
[2018-06-12 15:30] VITALS: BP 112/67; PULSE 88; RESP 16; TEMP 36.9; O2SAT 97
[2018-06-12 16:59] VITALS: BP 112/67; PULSE 88
[2018-06-12] MEDS: Tamsulosin HCl 0.4 MG Capsule PO (20:29)
[2018-06-12] MEDS: MELATONIN 3 MG TABLET PO (20:30)
[2018-06-12] MEDS: Atorvastatin Calcium 80 MG Tablet PO (20:30)
[2018-06-13] MEDS: Enoxaparin 30 MG/0.3 ML Syringe SC (06:05)
[2018-06-13 06:06] VITALS: BP 134/75; PULSE 91
[2018-06-13] MEDS: Pantoprazole Sodium 40 MG Tablet PO (06:06)
[2018-06-13] MEDS: Finasteride 5 MG Tablet PO (06:06)
[2018-06-13] MEDS: Senna/Docusate Sodium 1 Tablet PO ×2 (06:06→17:16)
[2018-06-13] MEDS: Glucerna Shake 120 ML LIQUID PO ×4 (06:06→21:24)
[2018-06-13] MEDS: Metoprolol(XL)Succ 100 MG Tablet PO ×2 (06:06→17:16)
[2018-06-13] MEDS: Amiodarone 200 MG Tablet PO (06:06)
[2018-06-13] MEDS: Clopidogrel Bisulfate 75 MG Tablet PO (06:07)
[2018-06-13] MEDS: BACITRACIN 15 GM Tube 1 APPLIC TOPICAL ×2 (06:08→18:22)
[2018-06-13] MEDS: Menthol/Lanolin/Calamine/Znox 113 GM Tube 1 APPLIC TOPICAL ×2 (06:09→21:24)
[2018-06-13 06:26] LABS: Bedside Glucose 134 mg/dL (70-110)
[2018-06-13] MEDS: Multivitamins,Therapeutic Tablet 1 TABLET PO (08:04)
[2018-06-13] MEDS: Aspirin 81 MG TAB.CHEW PO (08:04)
--- NOTE | 2018-06-13 13:10 | PCM.PN.ID ---
Patient Problems: Active and Suspected Problems Gastroparesis (Acute) VRE (vancomycin resistant enterococcus) culture positive (Acute) Subjective: Perez had to be replaced after a day. No fever, no abd pain. - Physical Exam General: Alert, Cooperative, No apparent distress Lungs: Clear to auscultation, Normal air movement Cardiovascular: Regular rate, Regular Rhythm Abdomen: Soft, Non Tender, Non-Distended Skin: No rashes Vital Signs Temp Pulse Resp BP Pulse Ox 98.4 F 91 16 134/75 H 97 06/12/18 15:30 06/13/18 06:06 06/12/18 15:30 06/13/18 06:06 06/12/18 15:30 Oxygen Delivery Method Room Air Weight: 94.064 kg Body Mass Index (BMI) 30.4 Intake and Output for Last 24 Hours 06/11/18 06/12/18 06/13/18 23:59 23:59 23:59 Intake Total 600 / 600 840 / 840 400 / 400 Output Total 950 / 950 750 / 750 825 / 825 Balance -350 / -350 90 / 90 -425 / -425 POC Glucose 06/13/18 06:12 POC Glucose 134 H Medical Necessity - Tobacco Use Smoking Status: Former smoker Tobacco Use: Cigars Route of nutrition/ use of supplements: [] Nutritional Intake: [] IV Site: [] Perez Catheter: [] - Assessment/Plan Antibiotics: [] Assessment/Plan: [] Active and Suspected Problems Gastroparesis (Acute) VRE (+) ucx - Consistent with colonization. Asymptomatic, no pyuria. Now Perez replaced. No need for abx at this time. Recommend perez removal when able. Will follow as needed, thank you.
--- NOTE | 2018-06-13 15:34 | NURSING ---
PT URINE IN CATH IS TEA IN COLOR WITH A TOUCH OF RED IN IT. REPORTED TO EV DUBON
[2018-06-13 15:44] VITALS: BP 86/48; PULSE 84; RESP 16; TEMP 36.8; O2SAT 93
[2018-06-13 16:34] VITALS: BP 112/68; PULSE 84
[2018-06-13 17:16] VITALS: BP 112/68; PULSE 84
[2018-06-13] MEDS: Tamsulosin HCl 0.4 MG Capsule PO (21:25)
[2018-06-13] MEDS: MELATONIN 3 MG TABLET PO (21:26)
[2018-06-13] MEDS: Atorvastatin Calcium 80 MG Tablet PO (21:27)
[2018-06-13 21:30] VITALS: PULSE 88; RESP 16; O2SAT 92
[2018-06-14] MEDS: Glucerna Shake 120 ML LIQUID PO ×4 (05:24→21:40)
[2018-06-14] MEDS: Menthol/Lanolin/Calamine/Znox 113 GM Tube 1 APPLIC TOPICAL ×2 (05:25→21:46)
[2018-06-14] MEDS: BACITRACIN 15 GM Tube 1 APPLIC TOPICAL ×2 (05:29→17:26)
[2018-06-14] MEDS: Amiodarone 200 MG Tablet PO (05:29)
[2018-06-14 05:30] VITALS: BP 126/75; PULSE 87
[2018-06-14] MEDS: Pantoprazole Sodium 40 MG Tablet PO (05:30)
[2018-06-14] MEDS: Clopidogrel Bisulfate 75 MG Tablet PO (05:30)
[2018-06-14] MEDS: Finasteride 5 MG Tablet PO (05:30)
[2018-06-14] MEDS: Senna/Docusate Sodium 1 Tablet PO ×2 (05:30→17:26)
[2018-06-14] MEDS: Metoprolol(XL)Succ 100 MG Tablet PO ×2 (05:30→17:26)
[2018-06-14] MEDS: Enoxaparin 30 MG/0.3 ML Syringe SC (05:31)
[2018-06-14 05:53] LABS: Absolute Lymphocyte Count 1.64 X10^3/ul (0.83-4.51); Absolute Neutrophil Count 4.6 X10^3/uL (2.0-7.7); Basophil# 0.02 X10^3/uL; Basophil% 0.3 % (0-1); Eosinophils% 2.9 % (0-5); Hematocrit 34.5 % (40-54); Hemoglobin 10.7 g/dl (13.0-16.5); Lymphocyte # 1.64 X10^3/ul (4.0); Lymphocyte % 23.9 % (19-41); Mean Corpuscular Hgb 29.7 pg (27.0-32.0); Mean Corpuscular Volume 95.8 fL (80-94); Mean Platelet Vol. 9.6 fl (6.2-12.0); Monocyte# 0.41 X10^3/uL; Neutrophil # 4.58 X10^3/uL (2.7-7.7); Neutrophil % 66.6 % (47-70); Platelet Count 166 K/mm3 (150-450); RBC Distribution Width CV 14.7 % (11.6-14.6); RBC Distribution Width SD 49.3 fl (35.1-43.9); White Blood Count 6.9 K/mm3 (4.4-11.0)
[2018-06-14 05:54] LABS: POSITIVE COUNT NO; POSITIVE DIFFERENTIAL NO; POSITIVE MORPHOLOGY NO
[2018-06-14 05:56] LABS: Anion Gap 7 (5-15); BUN 10 mg/dL (7-18); Calcium,Total 9.1 mg/dL (8.5-10.1); Chloride 101 mmol/L (98-107); Creatinine, Serum 0.72 mg/dL (0.70-1.30); EST Glomerular Filtration Rate 113 mL/min (>60); Est Glom Filt Rate - Afr Amer 137 mL/min (>60); Estimated Creatinine Clearance 60.88 ml/min; Glucose 124 mg/dL (74-106); Potassium 4.3 mmol/L (3.5-5.1); Sodium Level 141 mmol/L (136-145)
[2018-06-14 07:00] VITALS: PULSE 86; RESP 18; O2SAT 93
[2018-06-14 07:06] LABS: Bedside Glucose 155 mg/dL (70-110)
[2018-06-14] MEDS: Multivitamins,Therapeutic Tablet 1 TABLET PO (09:31)
[2018-06-14] MEDS: Aspirin 81 MG TAB.CHEW PO (09:32)
[2018-06-14 16:00] VITALS: BP 105/66; PULSE 86; RESP 20; TEMP 36.6; O2SAT 96
--- NOTE | 2018-06-14 16:22 | NURSING ---
pt continues w/sneezing, coughing feels he may be getting ill. Dr Ennis notified of negative resp panel. new order for loratidine and fluticasone spray x5 days
[2018-06-14 17:26] VITALS: BP 105/66; PULSE 86
[2018-06-14] MEDS: MELATONIN 3 MG TABLET PO (21:40)
[2018-06-14] MEDS: Atorvastatin Calcium 80 MG Tablet PO (21:40)
[2018-06-14] MEDS: Tamsulosin HCl 0.4 MG Capsule PO (21:41)
[2018-06-15] MEDS: Loratadine 10 MG Tablet PO (05:21)
[2018-06-15] MEDS: Glucerna Shake 120 ML LIQUID PO ×4 (05:21→20:30)
[2018-06-15] MEDS: Amiodarone 200 MG Tablet PO (05:21)
[2018-06-15] MEDS: BACITRACIN 15 GM Tube 1 APPLIC TOPICAL ×2 (05:21→20:29)
[2018-06-15 05:22] VITALS: BP 127/74; PULSE 96
[2018-06-15] MEDS: Senna/Docusate Sodium 1 Tablet PO ×2 (05:22→17:42)
[2018-06-15] MEDS: Metoprolol(XL)Succ 100 MG Tablet PO (05:22)
[2018-06-15] MEDS: Clopidogrel Bisulfate 75 MG Tablet PO (05:22)
[2018-06-15] MEDS: Finasteride 5 MG Tablet PO (05:22)
[2018-06-15] MEDS: Enoxaparin 30 MG/0.3 ML Syringe SC (05:22)
[2018-06-15] MEDS: Pantoprazole Sodium 40 MG Tablet PO (05:22)
[2018-06-15] MEDS: Fluticasone 0.05% 1 SPRAY NASAL.SRY NASAL ×2 (05:28→17:44)
[2018-06-15] MEDS: Menthol/Lanolin/Calamine/Znox 113 GM Tube 1 APPLIC TOPICAL ×2 (05:30→20:29)
[2018-06-15 06:56] LABS: Bedside Glucose 147 mg/dL (70-110)
[2018-06-15] MEDS: Multivitamins,Therapeutic Tablet 1 TABLET PO (09:15)
[2018-06-15] MEDS: Aspirin 81 MG TAB.CHEW PO (09:16)
--- NOTE | 2018-06-15 10:27 | CASEMGMT ---
Plan of care meeting held. Resident present as well as resident family. No discharge date set at this time. Resident to continue with further care and treatment on the Transitional Care Unit. Resident plans to discharge to home with spouse at time of discharge. Support given. Will continue to follow. Lili BANERJEE, SPOUT POSITIONER
[2018-06-15 14:10] VITALS: PULSE 87; RESP 18; O2SAT 94
--- NOTE | 2018-06-15 14:52 | NURSING ---
PT BLADDER SCANNED FOR 724 POST, STRAIGHT CATH DONE.
[2018-06-15 16:00] VITALS: BP 103/54; PULSE 84; RESP 18; TEMP 36.2; O2SAT 94
--- NOTE | 2018-06-15 16:48 | NURSING ---
PT STATED TO THIS NURSE THAT HIS TONGUE WAS GETTING SORE. PT TONGUE IS BROWN. REPORTED TO EV KIMBROUGH
[2018-06-15 17:43] VITALS: BP 103/54; PULSE 84
--- NOTE | 2018-06-15 18:05 | NURSING ---
Pt has c/o sore tongue, with light brown discoloration. NO for nystatin swish and swallow QID x 10 days.
[2018-06-15] MEDS: Tamsulosin HCl 0.4 MG Capsule PO (20:29)
[2018-06-15] MEDS: MELATONIN 3 MG TABLET PO (20:30)
[2018-06-15] MEDS: Atorvastatin Calcium 80 MG Tablet PO (20:30)
[2018-06-15] MEDS: NYSTATIN 500,000 UNIT/5 ML UDC 500000 UNIT PO (20:34)
[2018-06-16] MEDS: Menthol/Lanolin/Calamine/Znox 113 GM Tube 1 APPLIC TOPICAL ×2 (05:01→21:22)
[2018-06-16] MEDS: Enoxaparin 30 MG/0.3 ML Syringe SC (05:03)
[2018-06-16] MEDS: Glucerna Shake 120 ML LIQUID PO ×4 (05:03→21:19)
[2018-06-16] MEDS: Fluticasone 0.05% 1 SPRAY NASAL.SRY NASAL ×2 (05:03→17:06)
[2018-06-16] MEDS: NYSTATIN 500,000 UNIT/5 ML UDC 500000 UNIT PO ×4 (05:04→21:19)
[2018-06-16] MEDS: Loratadine 10 MG Tablet PO (05:04)
[2018-06-16] MEDS: BACITRACIN 15 GM Tube 1 APPLIC TOPICAL ×2 (05:04→17:05)
[2018-06-16] MEDS: Pantoprazole Sodium 40 MG Tablet PO (05:05)
[2018-06-16] MEDS: Clopidogrel Bisulfate 75 MG Tablet PO (05:05)
[2018-06-16] MEDS: Amiodarone 200 MG Tablet PO (05:05)
[2018-06-16 05:06] VITALS: PULSE 94
[2018-06-16] MEDS: Senna/Docusate Sodium 1 Tablet PO ×2 (05:06→17:28)
[2018-06-16] MEDS: Finasteride 5 MG Tablet PO (05:06)
[2018-06-16] MEDS: Metoprolol(XL)Succ 100 MG Tablet PO ×2 (05:06→17:28)
[2018-06-16 06:51] LABS: Bedside Glucose 140 mg/dL (70-110)
[2018-06-16] MEDS: Aspirin 81 MG TAB.CHEW PO (09:30)
[2018-06-16] MEDS: Multivitamins,Therapeutic Tablet 1 TABLET PO (09:30)
[2018-06-16 10:00] VITALS: PULSE 74; RESP 18; O2SAT 94
--- NOTE | 2018-06-16 12:12 | MDS.RN ---
Information for the MDS was obtained from review of the clinical record, interview of resident, staff, and direct observation of resident's care.
--- NOTE | 2018-06-16 14:32 | CASEMGMT ---
Social Work Spoke with resident in room. Resident requesting for discharge date to be set for 06/17/18. Spoke with staff/therapy, all agreeable to discharge date. Resident plans to discharge to home with spouse. Therapy and nursing are recommending for resident to continue with services within the home. Resident agreeable to physical and occupational therapy as well as detention. Resident requesting for home health services to be set up through [facility] ([facility]). Resident reporting to have all needed durable medical equipment already set up within the home. Resident reporting to plan to notify spouse in regards to discharge date/plan. Resident spouse to provide transportation home for resident at time of discharge. Support given. Telephone call to [facility], [place]. This social work therapist making referral for physical and occupational therapy as well as detention. Order to be completed. Proposed discharge date: 06/17/18 PLAN: Discharge to home with spouse and home health services. Lili BANERJEE, SALESPERSON [employer]
[2018-06-16 15:34] VITALS: BP 97/58; PULSE 91; RESP 18; TEMP 36.3; O2SAT 92
[2018-06-16 17:28] VITALS: BP 135/58; PULSE 91
--- NOTE | 2018-06-16 20:14 | DCINST_ITS ---
- Discharge Diagnoses Current Active Problems: Current Active and Chronic Problems Gastroparesis (Acute) VRE (vancomycin resistant enterococcus) culture positive (Acute) You will use the following diet at home:: No restrictions, Regular Your food should be the consistency of: Regular Your liquids should be the consistency of: Regular/Thin Discharge Activity: Return to Normal Activity, May Shower, Use Walker Weight Bearing Status: Weight bearing as tolerated Call your doctor if you observe: Fever of 101 or Higher, Inability to urinate, Inability to have a bowel movement, Shortness of breath, Chest pain, Uncontrolled pain Allergies/Adverse Reactions: Allergies No Known Allergies Allergy (Verified 05/27/18 17:09) Medications to take at Discharge Aspirin 81 mg PO DAILY 05/27/18 Melatonin 3 mg PO QHS 05/27/18 Metformin HCl [Glucophage] 500 mg PO BIDCM 05/27/18 Multivitamin,Therapeutic [Thera] 1 each PO DAILY 05/27/18 Acetaminophen [Tylenol] 1,000 mg PO Q8H PRN tablet 06/16/18 Amiodarone HCl [Pacerone] 200 mg PO DAILY #30 tab 06/16/18 Atorvastatin Calcium 80 mg PO QHS #30 tab 06/16/18 Clopidogrel Bisulfate [Plavix] 75 mg PO DAILY #30 tab 06/16/18 Finasteride [Proscar] 5 mg PO DAILY #30 tab 06/16/18 Menthol/Lanolin/Calamine/Znox [Calmoseptine Ointment] 1 applic TOPICAL 0600,2200 tube 06/16/18 Metoprolol Succinate 100 mg PO BID #60 tab.er.24h 06/16/18 Nystatin 500,000 unit PO 4X/DAY #150 udc 06/16/18 Pantoprazole Sodium [Protonix] 40 mg PO DAILY #30 tab 06/16/18 Tamsulosin HCl [Flomax] 0.4 mg PO QHS #30 cap 06/16/18 The following prescriptions were given: Amiodarone HCl [Pacerone] 200 mg PO DAILY #30 tab Atorvastatin Calcium 80 mg PO QHS #30 tab Clopidogrel Bisulfate [Plavix] 75 mg PO DAILY #30 tab Finasteride [Proscar] 5 mg PO DAILY #30 tab Pantoprazole Sodium [Protonix] 40 mg PO DAILY #30 tab Tamsulosin HCl [Flomax] 0.4 mg PO QHS #30 cap Metoprolol Succinate 100 mg PO BID #60 tab.er.24h Nystatin 500,000 unit PO 4X/DAY #150 udc Please follow up with your Primary Care Physician in: 1 week. Test Results: Test results from this visit will be discussed in further detail at your follow- up appointment, if applicable. Please Follow Up With: Dr Adonis Joaquin When: 2 weeks. Please Follow Up With: Dr Raines When: FU after DC from TCU Proposed Discharge Date: 06/17/18
--- NOTE | 2018-06-16 20:18 | DS.PCM_ITS ---
Discharge Date and Diagnosis - Problem List Patient Problems: Active and Suspected Problems Gastroparesis (Acute) VRE (vancomycin resistant enterococcus) culture positive (Acute) Date of Admission: 06/06/18 Date of Discharge: 06/17/18 - Primary Discharge Diagnosis Active and Suspected Problems Gastroparesis (Acute) VRE (vancomycin resistant enterococcus) culture positive (Acute) - Secondary Discharge Diagnosis Chronic Problems Chest pain (Chronic) NSTEMI (non-ST elevated myocardial infarction) (Chronic) Coronary artery disease (Chronic) 5 vessel CABG on 05/13/2018 Left ventricular dysfunction (Chronic) Diabetes mellitus type 2 in obese (Chronic) Hypertension (Chronic) Hyperlipidemia (Chronic) BPH (benign prostatic hyperplasia) (Chronic) Atrial fibrillation (Chronic) Acute kidney injury (Chronic) GERD (gastroesophageal reflux disease) (Chronic) Hospital Course and Treatment Imaging Results: 06/06/18 18:05 Diet: No Gastric Stimulus/Low Residue Labs (Last 48 Hours) 06/15/18 06/16/18 06:33 06:37 POC Glucose 147 H 140 H Operations: None Procedures: None Summary of Care Provided: The patient is a 78 year old Male with below past medical history recovering f rom recent CABG x 5, hospitalized for kinked NG tube, and X-ray showing gastric outlet obstruction, later ruled out, admitted to TCU with debility, here for rehabilitation, strengthening, prior to discharge home with spouse. Resident has urinary retention, indwelling perez catheter, on maximal medical therapy, perez removal as outpatient with Dr. Raines. Resident's urine culture grew VRE, Dr. Leach consulted, recommended no treatment due to VRE colonization, not VRE infection. Discharge home with spouse, and Home Health Services. Discharge Diet: No Restrictions Discharge Activity: Return to Normal Activity, May Shower, Use Walker Weight Bearing Status: Weight bearing as tolerated Call your doctor if you observe: Fever of 101 or Higher, Inability to urinate, Inability to have a bowel movement, Shortness of breath, Chest pain, Uncontrolled pain Home Medications: Medications to take at Discharge Aspirin 81 mg PO DAILY 05/27/18 Melatonin 3 mg PO QHS 05/27/18 Metformin HCl [Glucophage] 500 mg PO BIDCM 05/27/18 Multivitamin,Therapeutic [Thera] 1 each PO DAILY 05/27/18 Acetaminophen [Tylenol] 1,000 mg PO Q8H PRN tablet 06/16/18 Amiodarone HCl [Pacerone] 200 mg PO DAILY #30 tab 06/16/18 Atorvastatin Calcium 80 mg PO QHS #30 tab 06/16/18 Clopidogrel Bisulfate [Plavix] 75 mg PO DAILY #30 tab 06/16/18 Finasteride [Proscar] 5 mg PO DAILY #30 tab 06/16/18 Menthol/Lanolin/Calamine/Znox [Calmoseptine Ointment] 1 applic TOPICAL 0600,2200 tube 06/16/18 Metoprolol Succinate 100 mg PO BID #60 tab.er.24h 06/16/18 Nystatin 500,000 unit PO 4X/DAY #150 udc 06/16/18 Pantoprazole Sodium [Protonix] 40 mg PO DAILY #30 tab 06/16/18 Tamsulosin HCl [Flomax] 0.4 mg PO QHS #30 cap 06/16/18 Following Prescrptions Were Given to Patient: Amiodarone HCl [Pacerone] 200 mg PO DAILY #30 tab Atorvastatin Calcium 80 mg PO QHS #30 tab Clopidogrel Bisulfate [Plavix] 75 mg PO DAILY #30 tab Finasteride [Proscar] 5 mg PO DAILY #30 tab Pantoprazole Sodium [Protonix] 40 mg PO DAILY #30 tab Tamsulosin HCl [Flomax] 0.4 mg PO QHS #30 cap Metoprolol Succinate 100 mg PO BID #60 tab.er.24h Nystatin 500,000 unit PO 4X/DAY #150 udc Please follow up with your Primary Care Physician in: 1 week. Please Follow Up With: Dr Adonis Joaquin When: 2 weeks. Please Follow Up With: Dr Raines When: FU after DC from TCU Disposition: Home with Home Health Minutes spent on discharge:: 35 Patient Condition:: Stable Medical Necessity - Tobacco Use Smoking Status: Former smoker Tobacco Use: Cigars Meaningful Use Info Meaningful Use Diagnoses (Choose all that apply): None applicable
--- NOTE | 2018-06-16 20:18 | HHNOTE_ITS ---
Home Health Note - Plan Overview of reason of hospitalization: The patient is a 78 year old Male with below past medical history recovering from recent CABG x 5, hospitalized for kinked NG tube, and X-ray showing gastric outlet obstruction, later ruled out, admitted to TCU with debility, here for rehabilitation, strengthening, prior to discharge home with spouse. Resident has urinary retention, indwelling perez catheter, on maximal medical therapy, perez removal as outpatient with Dr. Raines. Resident's urine culture grew VRE, Dr. Leach consulted, recommended no treatment due to VRE colonization, not VRE infection. Discharge home with spouse, and Home Health Services. Problems: Patient was seen for Gastroparesis (Acute) VRE (vancomycin resistant enterococcus) culture positive (Acute) Complete List of Medical Problems Chest pain (Chronic) NSTEMI (non-ST elevated myocardial infarction) (Chronic) Coronary artery disease (Chronic) Left ventricular dysfunction (Chronic) Diabetes mellitus type 2 in obese (Chronic) Hypertension (Chronic) Hyperlipidemia (Chronic) BPH (benign prostatic hyperplasia) (Chronic) Atrial fibrillation (Chronic) Acute kidney injury (Chronic) GERD (gastroesophageal reflux disease) (Chronic) Encounter for nasogastric (NG) tube placement (Acute) Gastric outlet obstruction (Acute) NG tube kinked (Acute) Gastric distention (Acute) Gastroparesis (Acute) VRE (vancomycin resistant enterococcus) culture positive (Acute) - Requirements and Reasons Disciplines Needed/Ordered: Care Home, Physical Therapy Reason for Disciplines: Disease Specific Monitoring/education, Medication Management/Knowledge Deficit, Cather Care and/or Changes, Gait Training, Stair Training, Fall Prevention, Home Safety/Equipment Instruction, Balance and/or Posture Training, Transfer Training Related To: Physical Impairments, Unsteady Gait/Balance, Fall Risk Patient is unable to leave the home: Without Aid of Supportive Devices (crutches, cane, wheelchair, walker), Without the assistance of another person - Additional Disciplines Additional Disciplines Needed/Ordered: Occupational Therapy
[2018-06-16] MEDS: Atorvastatin Calcium 80 MG Tablet PO (21:19)
[2018-06-16] MEDS: Tamsulosin HCl 0.4 MG Capsule PO (21:19)
[2018-06-16] MEDS: MELATONIN 3 MG TABLET PO (21:19)
[2018-06-17 06:24] VITALS: BP 109/52; PULSE 91
[2018-06-17] MEDS: Enoxaparin 30 MG/0.3 ML Syringe SC (06:24)
[2018-06-17] MEDS: Amiodarone 200 MG Tablet PO (06:24)
[2018-06-17] MEDS: Senna/Docusate Sodium 1 Tablet PO (06:24)
[2018-06-17] MEDS: NYSTATIN 500,000 UNIT/5 ML UDC 500000 UNIT PO (06:24)
[2018-06-17] MEDS: Clopidogrel Bisulfate 75 MG Tablet PO (06:24)
[2018-06-17] MEDS: Loratadine 10 MG Tablet PO (06:24)
[2018-06-17] MEDS: Metoprolol(XL)Succ 100 MG Tablet PO (06:24)
[2018-06-17] MEDS: Fluticasone 0.05% 1 SPRAY NASAL.SRY NASAL (06:24)
[2018-06-17] MEDS: Pantoprazole Sodium 40 MG Tablet PO (06:24)
[2018-06-17] MEDS: Finasteride 5 MG Tablet PO (06:25)
[2018-06-17] MEDS: Glucerna Shake 120 ML LIQUID PO (06:29)
[2018-06-17] MEDS: Menthol/Lanolin/Calamine/Znox 113 GM Tube 1 APPLIC TOPICAL (06:33)
[2018-06-17] MEDS: BACITRACIN 15 GM Tube 1 APPLIC TOPICAL (06:33)
[2018-06-17 06:36] VITALS: O2SAT 94
[2018-06-17 06:51] LABS: Bedside Glucose 141 mg/dL (70-110)
[2018-06-17] MEDS: Aspirin 81 MG TAB.CHEW PO (08:39)
[2018-06-17] MEDS: Multivitamins,Therapeutic Tablet 1 TABLET PO (08:39)
[2018-06-17 09:36] VITALS: BP 95/53; PULSE 95; RESP 18; TEMP 36.9; O2SAT 93
== END 2018-06-17 10:20 | disposition home health service (06) | DRG 948 ==
PROVIDERS: Admitting Provider Family Medicine Geriatric Medicine; Visit Provider Family Medicine Geriatric Medicine
DX: R53.81 Other malaise (principal); K21.9 Gastro-esophageal reflux disease without esophagitis; N40.0 Benign prostatic hyperplasia without lower urinary tract symptoms; E78.5 Hyperlipidemia, unspecified; I25.10 Atherosclerotic heart disease of native coronary artery without angina pectoris; Z95.1 Presence of aortocoronary bypass graft; I48.91 Unspecified atrial fibrillation; Z87.891 Personal history of nicotine dependence; E11.43 Type 2 diabetes mellitus with diabetic autonomic (poly)neuropathy; K31.84 Gastroparesis; I10 Essential (primary) hypertension; I25.2 Old myocardial infarction; Z23 Encounter for immunization; Z22.8 Carrier of other infectious diseases
CPT/HCPCS: 36415; 80048; 82962; 85025; 87633; 97110; 97116; 97163; 97166; 97530; 97535; 97802; 90686

== ENCOUNTER 2018-07-03 11:53 | Emergency (ER) | payer MEDICARE, OTHER, SELFPAY ==
[2018-07-03 11:54] VITALS: BP 111/62; PULSE 91; RESP 18; TEMP 36.4; O2SAT 96; BMI 30.2
--- NOTE | 2018-07-03 12:10 | ED.DCSUM_ITS ---
- ER Visit Summary Date of Service: 07/03/18 Chief Complaint: Cervantes catheter problem History of Present Illness: The patient is a 78 M decreased urine output from Cervantes catheter since this morning. Cervantes placed 3 days ago for your difficulties. Followed by Dr. Sarkar. History of BPH. States has upcoming surgery planned. Emptied the bag 2 hours ago states there is approximately 200 cc, minimal since. No leakage around the Cervantes site. No fevers. No abdominal pain, no nausea or vomiting. States mild distention suprapubic. Did discuss with Dr. Raines prior to patient arrival to try to flush if unable no improvement,will exchange catheter. Physical Examination: General: Alert and oriented ?3, no acute distress HEENT: Normocephalic, atraumatic. Moist mucosa membranes Neck: supple, nontender. Cardiovascular: Regular rate and rhythm, no murmurs Respiratory: Normal breath sounds, symmetric, no distress Abdomen: Soft, nontender, nondistended, no guarding or rebound : No leakage around the Cervantes site. There is dark urine approximately 50 cc in the bag. Extremities: Nontender, no edema, pulses intact ?4 Neuro: no focal neurological deficits. Test Results: Emergency Department Course and Treatment: Patient no acute distress. Cervantes cath was flushed by nursing reported 500 cc flush with 500 cc output. Discussed with patient monitoring for retention and decreased output. Signs and symptoms discussed to return. Otherwise he will follow-up with his urologist. Treatment Plan: [] Disposition: Discharge Impression: Cervantes catheter dysfunction This note was generated with [employer] dictation software. It may contain incorrect words, spelling, and punctuation that were not noted in review of the chart prior to signing ED Disposition - Plan for ED Patient: Disposition: Home or Assisted Living Chief Complaint: Cervantes C/O Diagnosis: Cervantes catheter problem Instructions: ED Catheter Care Cervantes Referrals: Lazarus Cooper Jr., MD [Primary Care Provider] - Fito Raines MD [STAFF PHYSICIAN] - Keep Gautam appointment
--- NOTE | 2018-07-03 12:53 | ED.RN ---
CATHETER FLUSHED WITH STERILE WATER NO DIFFICULTIES NOTED. 500CC IN 500CC OUT.
[2018-07-03 13:18] VITALS: BP 136/74; PULSE 97; RESP 16; O2SAT 93
== END 2018-07-03 13:18 | disposition home or self-care (01) ==
PROVIDERS: Emergency Provider Emergency Medicine; Family Provider Internal Medicine; PCP Internal Medicine
DX: T83.9XXA Unspecified complication of genitourinary prosthetic device, implant and graft, initial encounter (principal); I25.10 Atherosclerotic heart disease of native coronary artery without angina pectoris; I10 Essential (primary) hypertension; N40.0 Benign prostatic hyperplasia without lower urinary tract symptoms; Z79.84 Long term (current) use of oral hypoglycemic drugs; Z79.02 Long term (current) use of antithrombotics/antiplatelets; Z79.82 Long term (current) use of aspirin; Z79.899 Other long term (current) drug therapy; Z95.1 Presence of aortocoronary bypass graft
CPT/HCPCS: 99282

== ENCOUNTER → 2018-07-27 13:02 | Outpatient (CLI) | payer MEDICARE, OTHER, SELFPAY | PROVIDERS: Family Provider Internal Medicine; PCP Internal Medicine; Referring Provider Urology; Visit Provider Urology | DX: N39.0 Urinary tract infection, site not specified (principal) | CPT/HCPCS: 87077; 87086; 87088; 87186 ==

== ENCOUNTER 2018-08-04 11:56 | Inpatient (IN) | payer MEDICARE, OTHER, SELFPAY ==
[2018-07-27 11:14] VITALS: BP 104/67; PULSE 70; RESP 18; TEMP 36.9; O2SAT 97; BMI 30.1
[2018-07-27 12:30] LABS: Hemoglobin A1c 5.9 % (4.2-6.3)
[2018-08-03] VITALS (10 sets, daily range): BP systolic 106–147; BP diastolic 61–90; PULSE 76–90; RESP 15–20; TEMP 35.9–37; O2SAT 95–100; BMI 30.1
--- NOTE | 2018-08-03 | PROS_PTH ---
PATIENT: EKATERINA RANDHAWA LOC: MS2 U#:[id number] AGE/SX: 78/M ROOM: [facility] RE08/04/[address]: Dr. Fito Raines MD : 1940 BED: 1 DIS: 08/05/2018 SPEC #: [id number] RECD: 08/03/18 15:16 STATUS: RASHEED RESylvia #: [id number] KERRY: 08/03/18 00:[address]: Fito Raines DEPT: SURGICAL PATHOLOGY RECD BY: Tre Amaya ENTERED: 08/04/18 12:32 SP TYPE: TURP OTHR DR: DO Dr. Lazarus Valadez Jr., MD Tissues: Prostate, NOS Procedures: Surgery Specimen Level IV HEADER OPERATION: Cystoscopy, transurethral resection of the prostate PRE-OP DIAGNOSIS: Benign prostatic hyperplasia POST-OP DIAGNOSIS: Benign prostatic hyperplasia, bladder and prostate stones TISSUE SUBMITTED: Prostate tissue and stones MICROSCOPIC DIAGNOSIS Prostate tissue and stones, TUR: Benign prostatic hyperplasia, glandular and stromal type. Focal chronic inflammation and basal cell hyperplasia. Fragments of the stone (gross only). DAPHNE:brian 08/05/18 MICROSCOPIC DESCRIPTION Slides are reviewed. GROSS DESCRIPTION Received is one container labeled with the patient's name and designated prostate tissue. The specimen consists of multiple irregular fragments of pink-luevano, rubbery, soft tissue that in aggregate weigh 30 gm and measure in aggregate 6 x 6 x 2.5 cm. Also present in the specimen container are multiple irregular fragments of luevano calculi ranging in size from 0.1 to 0.3 cm . Or Nurse Manager portions are submitted in 12 cassettes. /AM:rbian 08/04/18 TC: 5 CPT: 33729
[2018-08-03 11:31] LABS: Bedside Glucose 89 mg/dL (70-110)
[2018-08-03] MEDS: Cefazolin 2 GM in 0.9% Normal Saline 100 ML IV (12:17)
--- NOTE | 2018-08-03 12:35 | DCINST_ITS ---
Discharge Diet: Light diet - advance as tolerated Discharge Activity: Return to Normal Activity Instructions: Transurethral Resection of the Prostate (TURP): Home Recovery Allergies/Adverse Reactions: Allergies No Known Allergies Allergy (Verified 08/03/18 10:53) Medications to take at Discharge Aspirin 81 mg PO DAILY 05/27/18 Melatonin 3 mg PO QHS PRN 05/27/18 Metformin HCl [Glucophage] 1,000 mg PO BIDCM 05/27/18 Multivitamin,Therapeutic [Thera] 1 ea PO DAILY 05/27/18 Finasteride [Proscar] 5 mg PO DAILY #30 tab 06/16/18 Pantoprazole Sodium [Protonix] 40 mg PO DAILY #30 tab 06/16/18 Tamsulosin HCl [Flomax] 0.4 mg PO QHS #30 cap 06/16/18 clopidogrel 75 mg tablet 75 mg PO DAILY #90 tab 07/07/18 lisinopril 2.5 mg tablet 10 mg PO DAILY 07/07/18 metoprolol succinate ER 100 mg tablet,extended release 24 hr 100 mg PO BID #180 tab 07/07/18 Acetaminophen [Tylenol] 650 mg PO PRN PRN 07/27/18 Atorvastatin Calcium 80 mg PO QHS 07/27/18 Furosemide [Lasix] 20 mg PO DAILY 07/27/18 Ciprofloxacin [Cipro] 500 mg PO BID #14 tablet 08/03/18 The following prescriptions were given: Ciprofloxacin [Cipro] 500 mg PO BID #14 tablet Primary Care Physician: Lazarus Cooper Jr., MD [Primary Care Provider] - Test Results: Test results from this visit will be discussed in further detail at your follow- up appointment, if applicable. Please Follow Up With: Fito Raines MD When: in 2 weeks, please call to make an appointment.
--- NOTE | 2018-08-03 14:19 | PCM.OPRPT ---
Report of Operation Date of Procedure: 08/03/18 Pre-Operative Diagnosis: BPH with urinary retention, bladder stones multiple and large Post-Operative Diagnosis: The same Surgery/Procedure Performed:: Transurethral resection of the prostate and cystolitholapaxy of multiple large bladder stones Description of Surgical Findings:: 78-year-old male who underwent a cardiac procedure about 6-8 weeks ago he then developed postop urinary retention found to have a very large prostate and his failed medical therapy and now he has a chronic catheter for the last 6 weeks has not been able to urinate so today we plan to take the surgery for a transurethral resection of the prostate. 78-year-old male taken back to the operating room after smooth induction of anesthesia he was placed in dorsolithotomy position the penis and testicles are prepped and draped in usual sterile fashion went into the bladder and immediately found a large stone within the bladder had to then use a 400 micron laser fiber and lasered the stone in the little tiny pieces I then switched over to the resectoscope and started resecting the prostate there is no median large but it had very large to lateral lobes and a very long prostate after the resection as a went through the resection and ran into more stones are coming from the prostate these had to be lasered some more there are multiple stones that were in the prostate after resecting all these prostate stones free and then lasered him some more and then resected all the tissue on the right side and then resected the tissue in the left side and then carefully resected the apical tissue then switched over to the button vaporization to vaporized the channel smooth out the resection I then did a nice flow test went back in with a 24 [place] noncontinuous flow identify the sphincter the sphincter was intact but he had a nice open channel from the sphincter into the bladder after identifying the landmarks of the verumontanum which was on injured the sphincter was at uninjured the left and right ureteral orifice was uninjured a nice wide open channel for resection I then put a 22 Niuean three-way catheter into the bladder continues irrigation we had a significant amount of prostate tissue removed and bladder stones removed and then he was taken back to PACU good condition Type of Anesthesia:: General Specimen's removed: prostate tissue - Admit VTE Documentation VTE Present on Admission: No VTE Mechan Device Prophylaxis: SCD's
--- NOTE | 2018-08-03 14:22 | OP.PCM_ITS ---
Report of Operation Date of Procedure: 08/03/18 Pre-Operative Diagnosis: BPH with urinary retention, bladder stones multiple and large Post-Operative Diagnosis: The same Surgery/Procedure Performed:: Transurethral resection of the prostate and cystolitholapaxy of multiple large bladder stones Description of Surgical Findings:: 78-year-old male who underwent a cardiac procedure about 6-8 weeks ago he then developed postop urinary retention found to have a very large prostate and his failed medical therapy and now he has a chronic catheter for the last 6 weeks has not been able to urinate so today we plan to take the surgery for a transure thral resection of the prostate. 78-year-old male taken back to the operating room after smooth induction of anesthesia he was placed in dorsolithotomy position the penis and testicles are prepped and draped in usual sterile fashion went into the bladder and immediately found a large stone within the bladder had to then use a 400 micron laser fiber and lasered the stone in the little tiny pieces I then switched over to the resectoscope and started resecting the prostate there is no median large but it had very large to lateral lobes and a very long prostate after the resection as a went through the resection and ran into more stones are coming from the prostate these had to be lasered some more there are multiple stones that were in the prostate after resecting all these prostate stones free and then lasered him some more and then resected all the tissue on the right side and then resected the tissue in the left side and then carefully resected the apical tissue then switched over to the button vaporization to vaporized the channel smooth out the resection I then did a nice flow test went back in with a 24 [place] noncontinuous flow identify the sphincter the sphincter was intact but he had a nice open channel from the sphincter into the bladder after identifying the landmarks of the verumontanum which was on injured the sphincter was at uninjured the left and right ureteral orifice was uninjured a nice wide open channel for resection I then put a 22 [place] three-way catheter into the bladder continues irrigation we had a significant amount of prostate tissue removed and bladder stones removed and then he was taken back to PACU good condition Type of Anesthesia:: General Specimen's removed: prostate tissue - Admit VTE Documentation VTE Present on Admission: No VTE Mechan Device Prophylaxis: SCD's
[2018-08-03 15:31] LABS: Bedside Glucose 92 mg/dL (70-110)
[2018-08-03] MEDS: 0.9% Normal Saline 1,000 ML 75 ML IV (17:42)
[2018-08-03] MEDS: metFORMIN HCl 1,000 MG Tablet 1000 MG PO (17:59)
[2018-08-03] MEDS: Docusate Sodium 100 MG Capsule PO (21:22)
[2018-08-03] MEDS: Atorvastatin Calcium 80 MG Tablet PO (21:22)
[2018-08-03] MEDS: Tamsulosin HCl 0.4 MG Capsule PO (21:22)
[2018-08-03] MEDS: MELATONIN 3 MG TABLET PO (21:32)
[2018-08-04] VITALS (13 sets, daily range): BP systolic 86–114; BP diastolic 50–66; PULSE 87–100; RESP 16–24; TEMP 36.3–37.2; O2SAT 92–94
--- NOTE | 2018-08-04 05:20 | NURSING ---
DR THURSTON NOTIFIED OF PT'S BP 86/53, MICHAEL OUTPUT THROUGHOUT NIGHT
[2018-08-04] MEDS: 0.9% Normal Saline 1,000 ML 999 ML IV (05:31)
[2018-08-04 06:51] LABS: Absolute Lymphocyte Count 1.46 X10^3/ul (0.83-4.51); Absolute Neutrophil Count 5.4 X10^3/uL (2.0-7.7); Basophil# 0.01 X10^3/uL; Basophil% 0.1 % (0-1); Eosinophils% 1.3 % (0-5); Hematocrit 29.8 % (40-54); Lymphocyte # 1.46 X10^3/ul (4.0); Lymphocyte % 19.6 % (19-41); Mean Corp Hgb Conc 30.2 g/gl (32-36); Mean Corpuscular Hgb 27.6 pg (27.0-32.0); Mean Corpuscular Volume 91.4 fL (80-94); Mean Platelet Vol. 9.7 fl (6.2-12.0); Monocyte# 0.42 X10^3/uL; Monocyte% 5.6 % (0-10); Neutrophil # 5.44 X10^3/uL (2.7-7.7); Neutrophil % 73.3 % (47-70); Platelet Count 135 K/mm3 (150-450); RBC Distribution Width CV 14.8 % (11.6-14.6); RBC Distribution Width SD 47.7 fl (35.1-43.9); Red Blood Count 3.26 M/mm3 (4.6-6.2); White Blood Count 7.4 K/mm3 (4.4-11.0)
[2018-08-04 06:57] LABS: POSITIVE COUNT NO; POSITIVE DIFFERENTIAL NO; POSITIVE MORPHOLOGY NO
[2018-08-04 07:09] LABS: Anion Gap 7 (5-15); BUN 17 mg/dL (7-18); BUN/Creat Ratio 21.9 RATIO (10-20); Calcium,Total 7.9 mg/dL (8.5-10.1); Chloride 107 mmol/L (98-107); Creatinine, Serum 0.78 mg/dL (0.70-1.30); EST Glomerular Filtration Rate 103 mL/min (>60); Est Glom Filt Rate - Afr Amer 125 mL/min (>60); Estimated Creatinine Clearance 60.88 ml/min; Glucose 101 mg/dL (74-106); Potassium 4.6 mmol/L (3.5-5.1); Sodium Level 144 mmol/L (136-145)
--- NOTE | 2018-08-04 07:52 | PCM.PN.BLA ---
Progress Note 78-year-old male status post TURP had a very large prostate he also had bladder stones the urine today still bleeding too much and will have the continue bladder irrigation hopefully just 1 more day. He does have a low blood pressure this morning as well has a history of bypass surgery only 6 weeks ago I have the hospitalist see him for further management he clinically appears very stable does not complain of any chest pain or shortness of breath and no diaphoresis. Continue CBI consult hospitalist for medical management hopefully he can go home within the next 48 hours depending on his condition.
[2018-08-04 08:34] LABS: Hematocrit 29.7 % (40-54)
[2018-08-04] MEDS: Metoprolol(XL)Succ 100 MG Tablet PO ×2 (08:47→22:14)
[2018-08-04] MEDS: metFORMIN HCl 1,000 MG Tablet 1000 MG PO ×2 (08:48→17:21)
[2018-08-04] MEDS: Pantoprazole Sodium 40 MG Tablet PO (08:48)
[2018-08-04] MEDS: Multivitamins,Therapeutic Tablet 1 TABLET PO (08:48)
[2018-08-04] MEDS: Docusate Sodium 100 MG Capsule PO ×2 (08:48→22:14)
[2018-08-04] MEDS: Aspirin 81 MG TAB.CHEW PO (08:48)
[2018-08-04] MEDS: Finasteride 5 MG Tablet PO (08:49)
[2018-08-04] MEDS: 0.9% Normal Saline 1,000 ML 75 ML IV (08:50)
--- NOTE | 2018-08-04 10:42 | CASEMGMT ---
Pt completed LW/POA forms, copies placed in chart and originals with copies given to pt. GUERDA Amin, ENTERPRISE APPLICATION ANALYST
[2018-08-04] MEDS: Ibuprofen 600 MG Tablet PO (10:43)
--- NOTE | 2018-08-04 13:30 | CASEMGMT ---
EV VICTORIA INITIAL ASSESSMENT D/C PLAN: Home w/continued Cardiac Rehab @ [facility] 3 x's/week. Face to Face with patient for initial transition planning/care coordination assessment. EV VICTORIA introduced self and role at [facility]. Pt sitting up in recliner chair, alert/oriented. Willing to participate in assessment and all questions answered appropriately. Care providers, pharmacy, and demographics verified. Pt states does not smoke and used to drink about 2-3 beers a day but has not had anything to drink for about 3 months. PCP: Lazarus Cooper Specialists: Dung Preferred Pharmacy: [facility]. Insurance: [facility], AARP Prescription Benefit: Yes Living Will/HPOA: Has both LW and HCPOA, which is his , Stella. LNOK: Living Arrangements: Lives with his in a 2-story home but has one-story set-up. 3 steps to enter home. Able to navigate well. Pt independent with ADL's. Transportation: Pt and . DME: Has shower chair, Cane, rails/grab bars, hand held shower. Denies other DME needs. HHC: Has used [facility] HHC in past. Denies need for HHC on discharge. States is currently going to [facility] Cardiac Rehab 3 x's/week. Wishes to return home w/continuation of this. SNF: Has been on [facility] in the past. CM to follow for any further discharge planning needs that may arise. Valerie ZABALA RN, CM
[2018-08-04] MEDS: Glucerna Shake 120 ML LIQUID PO ×3 (14:38→22:15)
[2018-08-04 17:58] LABS: Hematocrit 29.4 % (40-54); Hemoglobin 8.9 g/dl (13.0-16.5)
--- NOTE | 2018-08-04 18:43 | PN_ITS ---
Subjective: Patient seen and examined today at the request of urology, he has been hypotensive this morning, hemoglobin was 9.0 today. Patient underwent a TURP yesterday but was having trouble with low blood pressure this morning, his blood pressure was 99/58 at 9 AM this morning. Patient does not appear tachycardic. He is asymptomatic, I held his lisinopril this morning and his Lasix. - Physical Exam General: Alert, Oriented x3, Cooperative, No apparent distress, Well developed, Well nourished HEENT: Atraumatic, PERRLA, EOMI, Normocephalic Oral: Moist Mucosa Neck: Supple, No Nuchal Rigidity, Trachea Midline, Thyroid Normal Size and Te xture Lungs: Clear to auscultation, Normal air movement, No rhonchi, No wheeze, No rales Cardiovascular: Regular rate, Regular Rhythm, Normal S1, Normal S2, No murmurs, No Ectopic Activity, PMI Normal, No rub noted, No Gallop Abdomen: Bowel Sounds Present, Soft, Non Tender, Non-Distended Extremities: No clubbing, No cyanosis, No edema, Capillary Refill Less than 3 Seconds Skin: No rashes, No breakdown Neurological: Cranial nerves II-XII grossly intact, Neuro grossly intact, Sensory exam intact to light touch and pain, Coordination normal Psych/Mental Status: Normal Affect, Appropriate, Alert and oriented to time, place, person, mood and affect Vital Signs Temp Pulse Resp BP Pulse Ox 99.0 F 96 18 97/50 L 94 08/04/18 17:27 08/04/18 17:27 08/04/18 17:27 08/04/18 17:27 08/04/18 17:27 Oxygen Flow Rate (L/min) 1 Oxygen Delivery Method Room Air Weight: 92.5 kg Body Mass Index (BMI) 30.1 Finger Stick Blood Glucose 92 Intake and Output for Last 24 Hours 08/02/18 08/03/18 08/04/18 23:59 23:59 23:59 Intake Total 1426 / 1426 3458 / 3458 Output Total 7200 / 7200 5790 / 5790 Balance -5774 / -5774 -2332 / -2332 Laboratory Tests Past 24 Hrs 08/04/18 08/04/18 08/04/18 06:35 06:35 08:20 WBC 7.4 RBC 3.26 L Hgb 9.0 L 9.0 L Hct 29.8 L 29.7 L MCV 91.4 MCH 27.6 MCHC 30.2 L RDW 14.8 H RDW Differential 47.7 H Plt Count 135 L MPV 9.7 Immature Gran % (Auto) 0.100 Neut % (Auto) 73.3 H Lymph % (Auto) 19.6 Candler % (Auto) 5.6 Eos % (Auto) 1.3 Baso % (Auto) 0.1 Absolute Neuts (auto) 5.4 Absolute Lymphs (auto) 1.46 Total Counted Not Reportable Sodium 144 Potassium 4.6 Chloride 107 Carbon Dioxide 30.0 Anion Gap 7 BUN 17 Creatinine 0.78 Estim Creat Clear Calc 60.88 Est GFR (MDRD) Af Amer 125 Est GFR (MDRD) Non-Af 103 BUN/Creatinine Ratio 21.9 H Glucose 101 Calcium 7.9 L 08/04/18 17:32 WBC RBC Hgb 8.9 L Hct 29.4 L MCV MCH MCHC RDW RDW Differential Plt Count MPV Immature Gran % (Auto) Neut % (Auto) Lymph % (Auto) Candler % (Auto) Eos % (Auto) Baso % (Auto) Absolute Neuts (auto) Absolute Lymphs (auto) Total Counted Sodium Potassium Chloride Carbon Dioxide Anion Gap BUN Creatinine Estim Creat Clear Calc Est GFR (MDRD) Af Amer Est GFR (MDRD) Non-Af BUN/Creatinine Ratio Glucose Calcium Medical Necessity - Tobacco Use Smoking Status: Never smoker Tobacco Use: Cigars Assessment/Plan All Active Problems (Last Reviewed 07/07/18 @ 14:37 by Bailey Sorensen) Postoperative atrial fibrillation (Resolved) Gastric outlet obstruction (Resolved) NG tube kinked (Resolved) Gastric distention (Resolved) Gastroparesis (Resolved) VRE (vancomycin resistant enterococcus) culture positive (Resolved) #1 hypotension-probably secondary to volume depletion and anemia, I have elly nued IV fluids at this time, I will recheck patient's hemoglobin in the morning. Hemoglobin this afternoon was 8.9, I will transfuse 1 unit of packed red blood cells due to #2 anemia as an expected consequence from hematuria from TURP-hemoglobin this afternoon was rechecked and it was 8.9, I have decided to transfuse the patient 1 unit of blood due to persistent hypotension. #3 coronary artery disease #4 ischemic cardiomyopathy #5 paroxysmal atrial fibrillation-currently in sinus rhythm #6 BPH Code Visit Inpatient E&M: 89180 Subs Hosp L2
[2018-08-04] MEDS: MELATONIN 3 MG TABLET PO (22:14)
[2018-08-04] MEDS: Atorvastatin Calcium 80 MG Tablet PO (22:14)
[2018-08-04] MEDS: Tamsulosin HCl 0.4 MG Capsule PO (22:14)
[2018-08-05 00:08] VITALS: BP 116/75; PULSE 90; RESP 20; TEMP 36.6; O2SAT 93
[2018-08-05 00:34] VITALS: BP 114/72; PULSE 88; RESP 20; TEMP 36.8; O2SAT 94
[2018-08-05] MEDS: 0.9% Normal Saline 1,000 ML 75 ML IV (05:30)
[2018-08-05 07:06] VITALS: O2SAT 92
--- NOTE | 2018-08-05 07:51 | PCM.PN.BLA ---
Progress Note doing better urine much more clear d/c perez home after voids.
[2018-08-05] MEDS: Multivitamins,Therapeutic Tablet 1 TABLET PO (08:17)
[2018-08-05] MEDS: Aspirin 81 MG TAB.CHEW PO (08:17)
[2018-08-05] MEDS: metFORMIN HCl 1,000 MG Tablet 1000 MG PO (08:17)
[2018-08-05 08:19] VITALS: BP 115/62; PULSE 98; RESP 20; TEMP 36.7; O2SAT 92
[2018-08-05 09:31] LABS: Hematocrit 30.5 % (40-54); Hemoglobin 9.4 g/dl (13.0-16.5)
[2018-08-05] MEDS: Finasteride 5 MG Tablet PO (09:39)
[2018-08-05] MEDS: Docusate Sodium 100 MG Capsule PO (09:39)
[2018-08-05] MEDS: Furosemide 20 MG Tablet PO (09:39)
[2018-08-05 09:40] VITALS: BP 115/62; PULSE 98
[2018-08-05] MEDS: Pantoprazole Sodium 40 MG Tablet PO (09:40)
[2018-08-05] MEDS: Metoprolol(XL)Succ 100 MG Tablet PO (09:40)
[2018-08-05] MEDS: Glucerna Shake 120 ML LIQUID PO (09:41)
[2018-08-05 13:30] VITALS: BP 106/62; PULSE 95; RESP 18; TEMP 37.3; O2SAT 97
== END 2018-08-05 13:43 | disposition home or self-care (01) | DRG 714 ==
LOC: SDC 12:04
PROVIDERS: Anesthesiology; Internal Medicine; Admitting Provider Urology; Family Provider Internal Medicine; PCP Internal Medicine; Referring Provider Urology; Visit Provider Urology
DX: N40.1 Benign prostatic hyperplasia with lower urinary tract symptoms (principal); R33.8 Other retention of urine; N21.0 Calculus in bladder; I25.10 Atherosclerotic heart disease of native coronary artery without angina pectoris; I48.0 Paroxysmal atrial fibrillation; I25.5 Ischemic cardiomyopathy; I95.9 Hypotension, unspecified; D64.9 Anemia, unspecified; R31.9 Hematuria, unspecified; E11.9 Type 2 diabetes mellitus without complications; Z79.84 Long term (current) use of oral hypoglycemic drugs
CPT/HCPCS: 36415; 80048; 82962; 83036; 85014; 85018; 85025; 86850; 86900; 86920; 86922; 88305; 97802; J7030; J7040; J7120; P9016; J2405

== ENCOUNTER 2019-02-01 12:21 | Day surgery (SDC) | payer MEDICARE, OTHER, SELFPAY ==
[2018-10-12 10:35] VITALS: BMI 29.3
[2019-02-01 12:51] VITALS: BP 123/66; PULSE 73; RESP 16; TEMP 37.1; O2SAT 100; BMI 29.5
[2019-02-01 13:10] LABS: Bedside Glucose 122 mg/dL (70-110)
--- NOTE | 2019-02-01 16:04 | DCINST_ITS ---
Discharge Diet: Light diet - advance as tolerated Discharge Activity: Return to Normal Activity Call your doctor if you observe: Fever of 101 or Higher, Inability to urinate Allergies/Adverse Reactions: Allergies No Known Allergies Allergy (Verified 01/25/19 15:10) Medications to take at Discharge Aspirin 81 mg PO DAILY 05/27/18 Melatonin 3 mg PO QHS PRN 05/27/18 Metformin HCl [Glucophage] 1,000 mg PO BIDCM 05/27/18 Multivitamin,Therapeutic [Thera] 1 ea PO DAILY 05/27/18 Pantoprazole Sodium [Protonix] 40 mg PO DAILY #30 tab 06/16/18 metoprolol succinate ER 100 mg tablet,extended release 24 hr 100 mg PO BID #180 tab 07/07/18 Atorvastatin Calcium 80 mg PO QHS 07/27/18 lisinopril 10 mg tablet 10 mg PO QHS tab 10/12/18 furosemide 20 mg tablet 20 mg PO DAILY #30 tab 01/23/19 Oxybutynin Chloride [Ditropan Xl] 10 mg PO DAILY 01/25/19 Primary Care Physician: Parish Doherty DO [Primary Care Provider] - Test Results: Test results from this visit will be discussed in further detail at your follow- up appointment, if applicable. Please Follow Up With: Fito Raines MD When: in 4 weeks, please call to make an appointment.
[2019-02-01] MEDS: Lidocaine Jelly 2% 20 ML Syringe (URO-JET) 20 APPLIC (16:12)
[2019-02-01] MEDS: Cefazolin 2 GM in 0.9% Normal Saline 100 ML IV (16:12)
--- NOTE | 2019-02-01 16:15 | PCM.OPRPT ---
Report of Operation Date of Procedure: 02/01/19 Pre-Operative Diagnosis: Overactive bladder and urge incontinence Post-Operative Diagnosis: same Surgery/Procedure Performed:: Cystoscopy and injection of Botox 100 units Description of Surgical Findings:: 78-year-old male with a history of a TURP in the past presents to the office had severe overactive bladder we tried multiple medical medications with no improvement in his urinary incontinence. When he gets a sudden urge to go he can hold it and has to go to the bathroom. After failure with multiple medications we talked about the options of management including InterStim therapy PTNS and Botox injection. We will proceed with Botox injection 100 units in the operating room. 78-year-old male taken back to the operating room at the smooth induction of anesthesia he was placed in dorsolithotomy position the penis testicles are prepped and draped in usual sterile fashion, went into the bladder with a 21 [place] rigid cystourethroscope the entire length urethra urethra was normal sphincter was intact prostate was well resected he had no really obstructive tissue inside the bladder there is no tumors or stones the right ureter orifice were identified after searching for some time I really small looking bladder I then injected the back of the bladder in about 15 different sites 10 cc of 100 units of prepared Botox. Minor bleeding from the injection site these are washed out and then patient's anesthetic was reversed he was also given lidocaine jelly into the urethra and bladder. Anesthesia was reversed to take back to PACU good condition. Type of Anesthesia:: Local MAC Drains: none - Admit VTE Documentation VTE Present on Admission: No VTE Mechan Device Prophylaxis: SCD's
[2019-02-01 16:25] VITALS: BP 123/66; BP 144/75; PULSE 86; RESP 16; TEMP 36.7; O2SAT 100
[2019-02-01 16:30] VITALS: BP 123/66; BP 142/86; PULSE 88; RESP 16; O2SAT 97
[2019-02-01 16:35] VITALS: BP 123/66; BP 139/82; PULSE 86; RESP 16; O2SAT 98
[2019-02-01 16:40] VITALS: BP 123/66; BP 142/85; PULSE 85; RESP 16; TEMP 36.9; O2SAT 98
[2019-02-01 17:21] VITALS: BP 123/66
== END 2019-02-01 17:26 | disposition home or self-care (01) ==
LOC: SDC 12:24 → AC 12:25
PROVIDERS: Family Provider Family Medicine; PCP Family Medicine; Referring Provider Urology; Visit Provider Urology
PROC: 3E0K8GC Introduction of Other Therapeutic Substance into Genitourinary Tract, Via Natural or Artificial Opening Endoscopic (ICD-10-PCS; CPT 52287; principal; 2019-02-01 14:55)
DX: N39.41 Urge incontinence (principal); N32.81 Overactive bladder; N40.1 Benign prostatic hyperplasia with lower urinary tract symptoms; R33.8 Other retention of urine; R31.0 Gross hematuria; R35.1 Nocturia; I10 Essential (primary) hypertension; E78.00 Pure hypercholesterolemia, unspecified; M19.90 Unspecified osteoarthritis, unspecified site; G47.30 Sleep apnea, unspecified; K21.9 Gastro-esophageal reflux disease without esophagitis; F32.9 Major depressive disorder, single episode, unspecified; F41.9 Anxiety disorder, unspecified; Z79.84 Long term (current) use of oral hypoglycemic drugs; Z79.02 Long term (current) use of antithrombotics/antiplatelets; Z79.82 Long term (current) use of aspirin; Z79.899 Other long term (current) drug therapy; I25.2 Old myocardial infarction; Z87.891 Personal history of nicotine dependence; Z96.651 Presence of right artificial knee joint; Z95.1 Presence of aortocoronary bypass graft
CPT/HCPCS: 52287; 82962; J7120; J0585; J3490

== ENCOUNTER 2019-03-29 11:09 | Day surgery (SDC) | payer MEDICARE, OTHER, SELFPAY ==
[2019-03-29] VITALS (7 sets, daily range): BP systolic 124–130; BP diastolic 64–85; PULSE 80–85; RESP 16; TEMP 36.6–36.7; O2SAT 93–96; BMI 29.5
[2019-03-29 12:50] LABS: Bedside Glucose 111 mg/dL (70-110)
--- NOTE | 2019-03-29 16:02 | DCINST_ITS ---
Discharge Diet: Light diet - advance as tolerated Discharge Activity: Return to Normal Activity Call your doctor if your incision/area has: Sudden Increased Bleeding Call your doctor if you observe: Fever of 101 or Higher, Inability to urinate Suture Line Care: Avoid Pulling/Pushing, Avoid Pinching/Bending Instructions: OnabotulinumtoxinA Solution for injection Allergies/Adverse Reactions: Allergies No Known Allergies Allergy (Verified 03/29/19 12:16) Medications to take at Discharge Aspirin 81 mg PO QHS 05/27/18 Melatonin 3 mg PO QHS 05/27/18 Multivitamin,Therapeutic [Thera] 1 ea PO DAILY 05/27/18 metFORMIN HCl [Glucophage] 1,000 mg PO BIDCM 05/27/18 Pantoprazole Sodium [Protonix] 40 mg PO DAILY #30 tab 06/16/18 metoprolol succinate ER 100 mg tablet,extended release 24 hr 100 mg PO BID #180 tab 07/07/18 lisinopril 10 mg tablet 10 mg PO DAILY tab 10/12/18 furosemide 20 mg tablet 20 mg PO DAILY #30 tab 01/23/19 Oxybutynin Chloride [Ditropan Xl] 10 mg PO DAILY 01/25/19 Acetaminophen [Tylenol Extra Strength] 750 mg PO DAILY 03/22/19 atorvastatin 80 mg tablet 40 mg PO QHS tab 03/29/19 Primary Care Physician: Parish Doherty DO [Primary Care Provider] - Test Results: Test results from this visit will be discussed in further detail at your follow- up appointment, if applicable. Please Follow Up With: Fito Raines MD When: in 4 weeks, please call to make an appointment.
[2019-03-29] MEDS: Cefazolin 2 GM in 0.9% Normal Saline 100 ML IV (16:03)
[2019-03-29] MEDS: Lidocaine Jelly 2% 20 ML Syringe (URO-JET) 20 APPLIC (16:13)
--- NOTE | 2019-03-29 16:19 | PCM.OPRPT ---
Report of Operation Date of Procedure: 03/29/19 Pre-Operative Diagnosis: Overactive bladder and urge incontinence Post-Operative Diagnosis: the same Surgery/Procedure Performed:: Cystoscopy and injection of Botox 200 units into the bladder Description of Surgical Findings:: Indication is a 79-year-old male with a history of TURP in the past he is not having trouble with bladder control when he gets the urge to go he can hold it races off to the bathroom and wets himself we did 100 units of Botox a few months ago which mild improvement in symptoms and so at this point we wish to proceed with 200 units of Botox into the bladder he understands the risk of retention of urine hopefully this will help with his bladder control and his urge incontinence. 79-year-old male was taken back to the operating room at the smooth induction of anesthesia he was placed in dorsolithotomy position the penis testicles were prepped and draped in usual sterile fashion but into the bladder with a offset rigid cystourethroscope the entire length the urethra was normal the sphincter was intact the prostate is wide open resected inside the bladder some mild trabeculation within the bladder 200 units of Botox were prepared and 20 cc then injected the bladder and about 25 sites with the 20 units of saline Botox preparation for a total of 200 units injected into the bladder over 25 sites in the back of the bladder. We avoided injecting the trigone, the left and right ureteral orifice were normal. There was minimal bleeding bladder was drained patient acetic was reversed taken back to PACU in good condition plan to see him back in about a month for checkup. Type of Anesthesia:: Local MAC Drains: none - Admit VTE Documentation VTE Present on Admission: No VTE Mechan Device Prophylaxis: SCD's
== END 2019-03-29 17:43 | disposition home or self-care (01) ==
LOC: SDC 11:11 → AC 12:46
PROVIDERS: Family Provider Family Medicine; PCP Family Medicine; Referring Provider Urology; Visit Provider Urology
PROC: 3E0K8GC Introduction of Other Therapeutic Substance into Genitourinary Tract, Via Natural or Artificial Opening Endoscopic (ICD-10-PCS; CPT 52287; principal; 2019-03-29 15:00)
DX: N32.81 Overactive bladder (principal); N40.1 Benign prostatic hyperplasia with lower urinary tract symptoms; N39.41 Urge incontinence; R33.8 Other retention of urine; R35.1 Nocturia; I25.5 Ischemic cardiomyopathy; E11.9 Type 2 diabetes mellitus without complications; I10 Essential (primary) hypertension; E78.5 Hyperlipidemia, unspecified; K21.9 Gastro-esophageal reflux disease without esophagitis; M19.90 Unspecified osteoarthritis, unspecified site; H91.90 Unspecified hearing loss, unspecified ear; E66.9 Obesity, unspecified; I25.2 Old myocardial infarction; Z79.84 Long term (current) use of oral hypoglycemic drugs; Z79.899 Other long term (current) drug therapy; Z87.891 Personal history of nicotine dependence; Z95.1 Presence of aortocoronary bypass graft; Z96.651 Presence of right artificial knee joint
CPT/HCPCS: 52287; 36415; 80061; 80076; 82962; J7120; J0585; J3490

== ENCOUNTER → 2019-03-29 11:13 | Outpatient (CLI) | payer MEDICARE, OTHER, SELFPAY ==
[2019-03-29 13:07] LABS: AST(SGOT) 54 U/L (15-37); Alanine Aminotransfer ALT/SGPT 45 U/L (16-61); Albumin, Serum 3.5 g/dL (3.2-5.0); Alkaline Phosphatase 151 U/L (45-117); Bilirubin, Direct 0.25 mg/dL (0.00-0.30); Cholesterol 90 mg/dL (200); High Density Lipoprotein 29 mg/dL; Protein, Total 7.5 g/dL (6.4-8.2); Triglycerides 117 mg/dL; Very Low Density Lipoprotein 23 mg/dL (5-40)
== END ==
PROVIDERS: Family Provider Family Medicine; PCP Family Medicine; Referring Provider Nurse Practitioner Family; Visit Provider Nurse Practitioner Family
DX: I25.5 Ischemic cardiomyopathy (principal); E11.69 Type 2 diabetes mellitus with other specified complication; E78.5 Hyperlipidemia, unspecified; E66.9 Obesity, unspecified; Z95.1 Presence of aortocoronary bypass graft
CPT/HCPCS: 36415; 80061; 80076

== ENCOUNTER → 2019-05-10 07:27 | Outpatient (CLI) | payer MEDICARE, OTHER, SELFPAY ==
[2019-04-03 12:53] VITALS: BMI 29.8
[2019-05-10 08:42] LABS: AST(SGOT) 34 U/L (15-37); Alanine Aminotransfer ALT/SGPT 31 U/L (16-61); Albumin, Serum 3.7 g/dL (3.2-5.0); Alkaline Phosphatase 99 U/L (45-117); Bilirubin, Direct 0.26 mg/dL (0.00-0.30); Cholesterol 103 mg/dL (200); Globulin 3.8 g/dL (2.2-4.2); High Density Lipoprotein 37 mg/dL; Protein, Total 7.5 g/dL (6.4-8.2); Triglycerides 131 mg/dL; Very Low Density Lipoprotein 26 mg/dL (5-40)
== END ==
PROVIDERS: Family Provider Family Medicine; PCP Family Medicine; Referring Provider Nurse Practitioner Family; Visit Provider Nurse Practitioner Family
DX: I25.5 Ischemic cardiomyopathy (principal); E78.5 Hyperlipidemia, unspecified; Z95.1 Presence of aortocoronary bypass graft
CPT/HCPCS: 36415; 80061; 80076

== ENCOUNTER → 2019-10-30 07:09 | Outpatient (CLI) | payer MEDICARE, OTHER, SELFPAY ==
[2019-10-23 10:11] VITALS: BMI 29.8
--- NOTE | 2019-10-30 07:09 | CT_ITS ---
STUDY: CT CHEST WITH CONTRAST REASON FOR EXAM: Male, 79 years old. TAA -- SURG-OPEN HEART RADIATION DOSAGE (If Supplied By Facility): CTDIvol = ( 15.1 ) mGy, DLP = ( 564.83 ) mGycm TECHNIQUE: Transaxial imaging was performed following intravenous administration of IV 100mL Isovue-300. Multiplanar coronal and sagittal images were reformatted. Individualized dose optimization techniques were used for this CT. COMPARISON: None. FINDINGS: The lungs are normal. Mild fatty pleural thickening of the right more than left pleural spaces but no pleural effusion seen. Heart is mildly enlarged. 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 Residual pacer wires are noted. Normal mediastinum. Normal hilar regions. Normal enhanced pulmonary arteries. Mild ectasia of the ascending thoracic aorta with axial diameter measuring up to 3.8 cm. Tortuosity of the thoracic aorta but no dissection. Mild atherosclerosis of the aortic arch. There are multi-level degenerative changes of the thoracic spine. There are gallstones layering dependently within the gallbladder. Adrenal glands are not focally enlarged. CT/Chest WITH Contrast IMPRESSION: 1. Mild ectasia of the ascending thoracic aorta measuring up to 3.8 cm in axial dimension. Thoracic aortic, mild. CABG. 2. Cholelithiasis. Electronically Signed: Gordon Bautista MD ([place]) at 9:29 EST , Service support ,
[2019-10-30 07:41] LABS: CREATININE FINGERSTICK 0.9 mg/dL (0.70-1.30); EGFR FINGERSTICK > 60.0000 mL/min (>60)
== END ==
PROVIDERS: PCP Family Medicine; Referring Provider Internal Medicine Cardiovascular Disease; Visit Provider Internal Medicine Cardiovascular Disease
DX: I71.2 Thoracic aortic aneurysm, without rupture (principal)
CPT/HCPCS: 71260; Q9967

== ENCOUNTER → 2021-02-25 07:11 | Outpatient (CLI) | payer MEDICARE, OTHER, SELFPAY ==
[2020-05-13 08:38] VITALS: BMI 31.0
[2021-02-25 08:09] LABS: AST(SGOT) 19 U/L (15-37); Alanine Aminotransfer ALT/SGPT 24 U/L (16-61); Albumin, Serum 3.9 g/dL (3.2-5.0); Alkaline Phosphatase 77 U/L (45-117); Bilirubin, Direct 0.21 mg/dL (0.00-0.30); Cholesterol 93 mg/dL (200); Globulin 3.2 g/dL (2.2-4.2); High Density Lipoprotein 34 mg/dL; Protein, Total 7.1 g/dL (6.4-8.2); Triglycerides 99 mg/dL; Very Low Density Lipoprotein 20 mg/dL (5-40)
== END ==
PROVIDERS: PCP Family Medicine; Referring Provider Internal Medicine Cardiovascular Disease; Visit Provider Internal Medicine Cardiovascular Disease
DX: E78.5 Hyperlipidemia, unspecified (principal); I25.10 Atherosclerotic heart disease of native coronary artery without angina pectoris
CPT/HCPCS: 36415; 80061; 80076

== ENCOUNTER → 2021-03-12 07:28 | Outpatient (CLI) | payer MEDICARE, OTHER, SELFPAY ==
[2021-02-26 10:48] VITALS: BMI 28.2
--- NOTE | 2021-03-12 07:32 | ECHOD_ITS ---
Reason For Study: ASHD/CAD Procedure This was a 2D Doppler, Color Flow transthoracic echocardiogram. The study was technically difficult. PT deferred Definity use. Exam performed in department. Left Ventricle Normal LV size. Segmental dysfunction with preserved ejection fraction (see wall motion). The estimated ejection fraction is 55 %. Infero-Basal: Hypokinetic. Mid-Posterior: Hypokinetic. Mid- Inferior: Hypokinetic. Inferior [place] : Hypokinetic. Septal [place] : Hypokinetic. Right Ventricle Normal RV size. Normal systolic function. Atria The left atrium is mildly enlarged. Normal right atrium. No doppler evidence for ASD. Mitral Valve There is moderate to severe mitral annular calcification. Mild focal mitral valve calcification of the anterior leaflet. Trivial mitral valve insufficiency. Tricuspid Valve Normal tricuspid valve. Mild tricuspid valve insufficiency. Right ventricular systolic pressure estimated to be 34 mmHg. Aortic Valve The aortic valve is not well visualized. Mild (1+) aortic valve insufficiency. Pulmonic Valve The pulmonic valve is not well visualized. Great Vessels Normal sized aortic root. Pericardium/Pleural No pericardial effusion. MMode/2D Measurements & Calculations LVIDd: 4.9 cm IVSd: 1.1 cm Ao root diam: 3.7 cm LVIDs: 3.3 cm LVPWd: 1.0 cm RVDd: 3.9 cm FS: 31.2 % LAV(MOD-bp): 88.2 ml LA A4 area: 24.4 cm2 RA A4 area: 18.7 cm2 LAV(MOD-bp) Indexed: 43.5 ml/m2 LAV(MOD-sp2): 81.9 ml LAV(MOD-sp4): 80.8 ml Time Measurements MV dec time: 0.28 sec Doppler Measurements & Calculations MV E max ryan: 92.0 cm/sec Lat Peak E' Ryan: 3.9 cm/sec Med Peak E' Ryan: 3.8 cm/sec MV A max ryan: 90.1 cm/sec E/E' lat: 23.4 E/E' med: 24.3 MV E/A: 1.0 Ao V2 max: 171.0 cm/sec AI max ryan: 385.1 cm/sec LV V1 max: 93.0 cm/sec Ao max P.7 mmHg AI max P.3 mmHg LV V1 max P.5 mmHg Ao V2 mean: 115.5 cm/sec AI dec slope: 174.5 cm/sec2 LV V1 mean P.9 mmHg Ao mean P.1 mmHg AI P1/2t: 646.4 msec LV V1 mean: 66.1 cm/sec Ao V2 VTI: 35.6 cm LV V1 VTI: 21.7 cm PA V2 max: 68.6 cm/sec TR max ryan: 279.7 cm/sec TR max P.3 mmHg ECHO/Echo Complete Interpretation Summary The study was technically difficult. Segmental dysfunction with preserved ejection fraction (see wall motion). The estimated ejection fraction is 55 %. The left atrium is mildly enlarged. There is moderate to severe mitral annular calcification. Mild focal mitral valve calcification of the anterior leaflet. Trivial mitral valve insufficiency. Mild tricuspid valve insufficiency. Mild (1+) aortic valve insufficiency. Right ventricular systolic pressure estimated to be 34 mmHg. Transmitral diastolic flow velocities suggest diastolic dysfunction (pseudonorm al pattern). Ordering Physician: Satish Razo Referring Physician: Parish Doherty Performed By: Janeth Adame RDCS, RVT
== END ==
PROVIDERS: PCP Family Medicine; Referring Provider Internal Medicine Cardiovascular Disease; Visit Provider Internal Medicine Cardiovascular Disease
DX: I25.10 Atherosclerotic heart disease of native coronary artery without angina pectoris (principal); I25.5 Ischemic cardiomyopathy; I48.0 Paroxysmal atrial fibrillation; E78.5 Hyperlipidemia, unspecified; I10 Essential (primary) hypertension; Z95.1 Presence of aortocoronary bypass graft
CPT/HCPCS: 93306

== ENCOUNTER → 2022-03-07 | Outpatient (CLI) | payer MEDICARE, OTHER, SELFPAY ==
--- NOTE | 2022-03-07 07:33 | MRI_ITS ---
EXAM: MR HEAD WITHOUT INTRAVENOUS CONTRAST CLINICAL INDICATION: New onset of nystagmus. Ataxia. TECHNIQUE: Multiplanar and multisequence MR images of the brain were obtained without intravenous contrast. This report was created using [employer] report generation technology. COMPARISON: None. FINDINGS: BRAIN AND EXTRA-AXIAL SPACES: No diffusion restriction to suspect acute or subacute ischemic infarct. 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 No intra- or extra-axial hemorrhage. No intracranial mass or mass effect. Posterior fossa structures are unremarkable. Ventricles are appropriate for age. No hydrocephalus. Basal cisterns are patent. SELLA: Unremarkable. Normal sella turcica, pituitary gland, infundibular stalk, optic chiasm and hypothalamus. AUDITORY SYSTEM: Unremarkable. The internal auditory canals are patent. BONES/JOINTS: Unremarkable. No discrete lytic or blastic abnormalities. SINUSES: Unremarkable as visualized. Clear. MASTOID AIR CELLS: Unremarkable as visualized. Clear. ORBITS: Unremarkable as visualized. Both globes, extraocular muscles, optic nerves and retrobulbar fat appear unremarkable. VASCULATURE: Unremarkable as visualized. Normal flow voids in the major intracranial circulation. MRI/Brain without Contrast IMPRESSION: 1. No MRI evidence of acute or subacute ischemic infarct or acute intracranial abnormality. 2. 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 Electronically Signed: Wan Robb MD at 10:06 EDT ,
== END | disposition home or self-care (01) ==
LOC: MRI 07:20
PROVIDERS: PCP Family Medicine; Referring Provider Ophthalmology; Visit Provider Ophthalmology
DX: H55.00 Unspecified nystagmus (principal); R27.0 Ataxia, unspecified
CPT/HCPCS: 70551

== ENCOUNTER → 2022-12-08 | Outpatient (CLI) | payer MEDICARE, OTHER, SELFPAY ==
[2022-12-08 13:00] LABS: Vitamin B12 426 pg/mL (211-911)
[2022-12-08 13:04] LABS: ALB/GLOB Ratio 1.1 RATIO (0.9-2.4); AST(SGOT) 21 U/L (15-37); Alanine Aminotransfer ALT/SGPT 16 U/L (16-61); Albumin, Serum 3.8 g/dL (3.2-5.0); Alkaline Phosphatase 55 U/L (45-117); Anion Gap 4 (5-15); BUN 37 mg/dL (7-18); BUN/Creat Ratio 13.2 RATIO (10-20); Calcium,Total 10.1 mg/dL (8.5-10.1); Chloride 107 mmol/L (98-107); Creatinine, Serum 2.81 mg/dL (0.70-1.30); EST Glomerular Filtration Rate 23 mL/min (>60); Est Glom Filt Rate - Afr Amer 28 mL/min (>60); Globulin 3.4 g/dL (2.2-4.2); Glucose 165 mg/dL (74-106); Potassium 4.5 mmol/L (3.5-5.1); Protein, Total 7.2 g/dL (6.4-8.2); Sodium Level 140 mmol/L (136-145); Thyroid Stim Hormone (TSH) 1.17 uIU/mL (0.358-3.74)
[2022-12-08 13:07] LABS: Hematocrit 35.2 % (40-54); Hemoglobin 11.3 g/dL (13.0-16.5); Mean Corp Hgb Conc 32.1 g/dL (32-36); Mean Corpuscular Hgb 29.4 pg (27.0-32.0); Mean Corpuscular Volume 91.7 fL (80-94); Mean Platelet Vol. 11.2 fl (6.2-12.0); Platelet Count 162 K/mm3 (150-450); RBC Distribution Width CV 14.1 % (11.6-14.6); RBC Distribution Width SD 47.5 fl (35.1-43.9); Red Blood Count 3.84 M/mm3 (4.6-6.2); White Blood Count 8.3 K/mm3 (4.4-11.0)
[2022-12-11 00:06] LABS: Free Kappa Light Chains 72.1 mg/L (3.3-19.4); Free Lambda Light Chains 38.1 mg/L (5.7-26.3)
[2022-12-11 08:35] LABS: Vitamin B1, Thiamine 120.3 nmol/L (66.5-200.0)
== END | disposition home or self-care (01) ==
LOC: MTLAB 09:30
PROVIDERS: PCP Family Medicine; Referring Provider Psychiatry & Neurology Neurology; Visit Provider Psychiatry & Neurology Neurology
DX: G62.9 Polyneuropathy, unspecified (principal); G20 Parkinson's disease; G31.84 Mild cognitive impairment of uncertain or unknown etiology
CPT/HCPCS: 36415; 80053; 82607; 82746; 83883; 84425; 84443; 85027

== ENCOUNTER → 2022-12-14 | Outpatient (CLI) | payer MEDICARE, OTHER, SELFPAY ==
--- NOTE | 2022-12-14 12:33 | MRI_ITS ---
STUDY: MRI BRAIN WITHOUT CONTRAST REASON FOR EXAM: Male, 82 years old. Evaluate nystagmus; patient has Parkinson''s diseas TECHNIQUE: Standardized multiplanar fat and water weighted pulse sequences were obtained. COMPARISON: MRI brain March 07, 2022. FINDINGS: Diffuse, nonspecific parenchymal volume loss may be age-related. Normal white matter tracts of the supratentorial brain. There is no evidence for recent intracranial ischemia or other cause of cytotoxic edema on diffusion weighted imaging (DWI). Normal T2* images of the brain without demonstrated susceptibility artifact. There is no demonstrated hemosiderin stain. No evidence of iron depositions. 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 Normal bilateral basal ganglia. Normal thalami. There is no extra-axial fluid accumulation. Normal flow voids within the major intracranial circulation suggesting patency by spin echo criteria. Normal sella turcica, pituitary gland, infundibular stalk, optic chiasm and hypothalamus. Normal tectal plate and pineal gland. Normal midbrain, david and medulla. Normal cerebellum. Normal basal cisterns. Paranasal sinuses are normally aerated. Mucous retention cysts in the left sphenoid sinus. Mastoid air cells and middle ears are normally aerated with note of trace fluid and some of the left mastoid air cells, similar to prior comparison exam. Normal calvarium and skull base. Normal visualized upper cervical spine. 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 Nonspecific diffuse parenchymal atrophy may be age-related. Electronically Signed: Rodrigo Berrios DO at 23:36 EDT ,
== END | disposition home or self-care (01) ==
LOC: MRI 12:33
PROVIDERS: PCP Student in an Organized Health Care Education/Training Program; Referring Provider Psychiatry & Neurology Neurology; Visit Provider Psychiatry & Neurology Neurology
DX: H55.00 Unspecified nystagmus (principal); G20 Parkinson's disease; G31.84 Mild cognitive impairment of uncertain or unknown etiology
CPT/HCPCS: 70551

== ENCOUNTER → 2023-04-01 | Outpatient (CLI) | payer MEDICARE, OTHER, SELFPAY ==
[2023-04-06 13:08] LABS: Albumin 3.9 g/dL (2.9-4.4); Alpha-1-Globulins 0.2 g/dL (0.0-0.4); Alpha-2-Globulins 0.7 g/dL (0.4-1.0); Gamma Globulin 0.6 g/dL (0.4-1.8); Immunoglobulin A 337 mg/dL (61-437); Immunoglobulin G 823 mg/dL (603-1613); Immunoglobulin M 59 mg/dL (15-143); PROEL- TOTAL PROTEIN 6.5 g/dL (6.0-8.5)
== END | disposition home or self-care (01) ==
LOC: MTLAB 12:33
PROVIDERS: PCP Student in an Organized Health Care Education/Training Program; Visit Provider Psychiatry & Neurology Neurology
DX: G62.9 Polyneuropathy, unspecified (principal)
CPT/HCPCS: 36415; 82784; 84165; 86334; 86335

== ENCOUNTER → 2023-08-26 | Outpatient (CLI) | payer MEDICARE, OTHER, SELFPAY ==
[2023-08-26 09:18] LABS: AST(SGOT) 21 U/L (15-37); Alanine Aminotransfer ALT/SGPT 13 U/L (16-61); Albumin, Serum 3.5 g/dL (3.2-5.0); Alkaline Phosphatase 47 U/L (45-117); Bilirubin, Direct 0.14 mg/dL (0.00-0.30); Cholesterol 92 mg/dL (200); Globulin 3.3 g/dL (2.2-4.2); High Density Lipoprotein 37 mg/dL; Protein, Total 6.8 g/dL (6.4-8.2); Triglycerides 81 mg/dL; Very Low Density Lipoprotein 16 mg/dL (5-40)
== END | disposition home or self-care (01) ==
LOC: LAB 08:00
PROVIDERS: PCP Student in an Organized Health Care Education/Training Program; Referring Provider Nurse Practitioner Family; Visit Provider Nurse Practitioner Family
DX: E78.00 Pure hypercholesterolemia, unspecified (principal)
CPT/HCPCS: 36415; 80061; 80076

== ENCOUNTER → 2024-03-01 | Outpatient (CLI) | payer MEDICARE, OTHER, SELFPAY ==
[2024-03-01 12:12] LABS: AST(SGOT) 15 U/L (15-37); Alanine Aminotransfer ALT/SGPT 11 U/L (16-61); Albumin, Serum 3.7 g/dL (3.2-5.0); Alkaline Phosphatase 48 U/L (45-117); Bilirubin, Direct 0.23 mg/dL (0.00-0.30); Cholesterol 82 mg/dL (200); Globulin 3.2 g/dL (2.2-4.2); High Density Lipoprotein 33 mg/dL; Protein, Total 6.9 g/dL (6.4-8.2); Triglycerides 105 mg/dL; Very Low Density Lipoprotein 21 mg/dL (5-40)
== END | disposition home or self-care (01) ==
LOC: LAB 08:18
PROVIDERS: PCP Student in an Organized Health Care Education/Training Program; Referring Provider Nurse Practitioner Family; Visit Provider Nurse Practitioner Family
DX: E78.00 Pure hypercholesterolemia, unspecified (principal)
CPT/HCPCS: 36415; 80061; 80076

== ENCOUNTER → 2025-02-08 | Outpatient (CLI) | payer MEDICARE, OTHER, SELFPAY ==
[2025-02-08 11:58] LABS: AST(SGOT) 16 U/L (<=37); Alanine Aminotransfer ALT/SGPT 6 U/L (<=46); Albumin, Serum 3.9 g/dL (3.4-4.8); Alkaline Phosphatase 89 U/L (40-129); Bilirubin, Direct 0.26 mg/dL (0.00-0.30); Cholesterol 80 mg/dL (<=200); Globulin 2.5 g/dL (2.2-4.2); High Density Lipoprotein 38 mg/dL; Low Density Lipoprotein Calc. 25 mg/dL; Protein, Total 6.5 g/dL (5.9-8.4); Total Bilirubin 0.48 mg/dL (0.00-1.30); Triglycerides 89 mg/dL; Very Low Density Lipoprotein 18 mg/dL (5-40); cholesterol:hdl ratio screen 2.13
== END | disposition home or self-care (01) ==
LOC: LAB 08:32
PROVIDERS: PCP Student in an Organized Health Care Education/Training Program; Referring Provider Nurse Practitioner Family; Visit Provider Nurse Practitioner Family
DX: E78.00 Pure hypercholesterolemia, unspecified (principal)
CPT/HCPCS: 36415; 80061; 80076

== ENCOUNTER → 2025-03-28 | Outpatient (CLI) | payer MEDICARE, OTHER, SELFPAY ==
--- NOTE | 2025-03-28 12:40 | ECHOD_ITS ---
Reason For Study Reason For Study: Murmur Procedure This was a 2D Doppler, Color Flow transthoracic echocardiogram. Exam performed in department. Left Ventricle Normal LV size. Moderate concentric left ventricular hypertrophy. Left ventricular systolic function is normal. The left ventricular ejection fraction is 65 %. No regional wall motion abnormalities noted. Right Ventricle Normal RV size. Normal systolic function. Atria The left atrium is mildly enlarged. The right atrium is mildly enlarged. Mitral Valve Normal mitral valve. Tricuspid Valve Normal tricuspid valve. Mild tricuspid valve insufficiency. Pulmonary artery systolic pressure is 24 mmHg. Aortic Valve Trisinus/trileaflet aortic valve. Mild focal aortic valve calcification. Peak aortic valve gradient 24 mmHg. Mean aortic valve gradient 14 mmHg. Mild (1+) aortic valve insufficiency. Pulmonic Valve Normal pulmonic valve. Great Vessels Normal aortic root. The pulmonary artery is normal size. Inferior vena cava collapse with respiration. Pericardium/Pleural No pericardial effusion. MMode/2D Measurements & Calculations LVIDd: 3.7 cm IVSd: 1.4 cm LVOT diam: 2.2 cm LVIDs: 2.8 cm LVPWd: 1.4 cm LVOT area: 4.0 cm2 FS: 24.8 % Ao root diam: 4.4 cm LAV(MOD-bp): 62.9 ml Ao sinus diam: 4.1 cm LAV(MOD-bp) Indexed: 30.1 ml/m2 LAV(MOD-sp2): 62.4 ml LAV(MOD-sp4): 60.[address] Junction: 3.9 cm Aortic Valve Planimetry: 1.6 cm2 LA A4 area: 21.8 cm2 LA dimension(2D): 5.4 cm TAPSE: 1.6 cm RA A4 area: 22.0 cm2 Time Measurements MV dec time: 0.44 sec Doppler Measurements & Calculations MV E max ryan: 92.8 cm/sec Lat Peak E' Ryan: 7.7 cm/sec Med Peak E' Ryan: 3.6 cm/sec MV A max ryan: 110.7 cm/sec E/E' lat: 12.0 E/E' med: 25.7 MV E/A: 0.84 MV V2 max: 124.3 cm/sec MV P1/2t max ryan: 117.2 cm/sec Ao V2 max: 245.6 cm/sec MV max P.2 mmHg MV P1/2t: 121.7 msec Ao max P.1 mmHg MV V2 mean: 63.8 cm/sec MV dec slope: 282.1 cm/sec2 Ao V2 mean: 176.8 cm/sec MV mean P.0 mmHg Ao mean P.1 mmHg MV V2 VTI: 48.2 cm MVA(P1/2t): 1.8 cm2 Ao V2 VTI: 59.0 cm MVA(VTI): 2.1 cm2 AV (velocity ratio): 0.44 DIMA(I,D): 1.7 cm2 DIMA(V,D): 1.5 cm2 AI max ryan: 464.2 cm/sec LV V1 max: 94.3 cm/sec SV(LVOT): 103.1 ml AI max P.5 mmHg LV V1 max P.6 mmHg AI dec slope: 209.5 cm/sec2 LV V1 mean P.2 mmHg AI P1/2t: 649.0 msec LV V1 mean: 69.2 cm/sec LV V1 VTI: 26.0 cm PA V2 max: 71.7 cm/sec TR max ryan: 230.0 cm/sec TR max P.2 mmHg ECHO/Echo Complete Interpretation Summary Normal LV size. Moderate concentric left ventricular hypertrophy. Left ventricular systolic function is normal. The left ventricular ejection fraction is 65 %. Mild focal aortic valve calcification. Mean aortic valve gradient 14 mmHg. Ordering Physician: Bailey Howe Referring Physician: Bailey Howe Performed By: Palmer Rowley and Student
== END | disposition home or self-care (01) ==
LOC: CVS 12:38
PROVIDERS: PCP Student in an Organized Health Care Education/Training Program; Referring Provider Physician Assistant Medical; Visit Provider Physician Assistant Medical
DX: R01.1 Cardiac murmur, unspecified (principal)
CPT/HCPCS: 93306

== ENCOUNTER → 2025-04-10 | Outpatient (CLI) | payer MEDICARE, OTHER, SELFPAY ==
--- NOTE | 2025-04-10 12:49 | CDU_ITS ---
Reason For Study Reason For Study: Caroid Bruit Rt. Velocities/BP Lt. Velocities/BP Prox CCA 57.4/5.3 cm/sec. Prox CCA 63.1/9.0 cm/sec. Mid CCA 48.7/6.9 cm/sec. Mid CCA 59.6/9.9 cm/sec. Dist CCA 49.8/4.7 cm/sec. Dist CCA 45.6/7.2 cm/sec. Prox ICA 23.3/3.7 cm/sec. Prox ICA 41.3/9.0 cm/sec. Mid ICA 37.2/7.3 cm/sec. Mid ICA 38.6/9.9 cm/sec. Dist ICA 38.5/9.5 cm/sec. Dist ICA 45.0/11.4 cm/sec. Rt. ICA/CCA = 0.8. Lt. ICA/CCA = 0.8. Prox ECA 38.6/3.1 cm/sec. Prox ECA 42.1/2.0 cm/sec. Rt. Vert. 21.6/3.8 cm/sec. Lt. Vert. 43.2/10.2 cm/sec. Right Extracranial There is intimal thickening but no significant atherosclerotic plaque noted in the right common carotid artery. There is heterogeneous, irregular atherosclerotic plaque noted in the right internal carotid artery. There is intimal thickening but no significant atherosclerotic plaque noted in the right external carotid artery. Antegrade flow is noted in the right vertebral artery. Left Extracranial There is homogeneous, smooth atherosclerotic plaque noted in the left common carotid artery. There is heterogeneous, irregular atherosclerotic plaque noted in the left internal carotid artery. There is intimal thickening but no significant atherosclerotic plaque noted in the left external carotid artery. Antegrade flow is noted in the left vertebral artery. Procedure Carotid Duplex [id number]. This is a Carotid Duplex examination using B-mode, color flow and specral Doppler. Exam performed in department. VL/Carotid Duplex Ultrasound Interpretation Summary Mild (<50%) stenosis right extracranial internal carotid. Mild (<50%) stenosis left extracranial internal carotid. Patent and antegrade vertebrals bilaterally. Ordering Physician: Sharon Parsons Referring Physician: Jluis Gooden DO Performed By: Arelis Boyer RVT
[2025-04-10 13:22] LABS: Anion Gap 10 (5-15); BUN 30 mg/dL (4-19); BUN/Creat Ratio 16.9 RATIO (10-20); Calcium,Total 9.4 mg/dL (7.6-11.0); Carbon Dioxide 23.1 mmol/L (21.0-32.0); Chloride 107 mmol/L (98-108); Glucose 129 mg/dL (70-99); Magnesium 2.0 mg/dL (1.5-2.2); Potassium 5.5 mmol/L (3.3-5.1)
== END | disposition home or self-care (01) ==
LOC: CVS 12:04
PROVIDERS: Internal Medicine Nephrology; PCP Student in an Organized Health Care Education/Training Program
DX: R09.89 Other specified symptoms and signs involving the circulatory and respiratory systems (principal); E87.5 Hyperkalemia
CPT/HCPCS: 36415; 80048; 83735; 93880

== ENCOUNTER → 2025-04-19 | Outpatient (CLI) | payer MEDICARE, OTHER, SELFPAY ==
[2025-04-19 11:41] LABS: Anion Gap 10 (5-15); BUN 27 mg/dL (4-19); BUN/Creat Ratio 13.8 RATIO (10-20); Calcium,Total 9.1 mg/dL (7.6-11.0); Carbon Dioxide 23.5 mmol/L (21.0-32.0); Chloride 107 mmol/L (98-108); Glucose 117 mg/dL (70-99); Potassium 5.7 mmol/L (3.3-5.1)
== END | disposition home or self-care (01) ==
LOC: POLAB3 09:52
PROVIDERS: PCP Student in an Organized Health Care Education/Training Program; Visit Provider Internal Medicine Nephrology
DX: E87.5 Hyperkalemia (principal)
CPT/HCPCS: 36415; 80048

== ENCOUNTER → 2025-04-26 | Outpatient (CLI) | payer MEDICARE, OTHER, SELFPAY ==
[2025-04-26 12:04] LABS: Anion Gap 11 (5-15); BUN 26 mg/dL (4-19); BUN/Creat Ratio 14.1 RATIO (10-20); Calcium,Total 9.1 mg/dL (7.6-11.0); Carbon Dioxide 20.7 mmol/L (21.0-32.0); Chloride 106 mmol/L (98-108); Glucose 174 mg/dL (70-99); Potassium 4.4 mmol/L (3.3-5.1)
--- NOTE | 2025-04-26 12:39 | US_ITS ---
PROCEDURE: KIDNEY AND BLADDER 04/26/2025 REASON FOR EXAM: HYPERKALEMIA TECHNIQUE: KIDNEY AND BLADDER COMPARISON: None FINDINGS: Kidneys: Normal renal sizes, parenchymal thicknesses, and echotextures. [place]: No evidence of hydronephrosis. Cysts or Masses: No cysts or large solid renal masses. Other: None RIGHT Kidney Size: 9.9 cm x 5.4 cm x 4.5 cm Volume: 127.5 mL Cortical Thickness (if discernible): 12 mm (>6mm is normal) LEFT Kidney Size: 10.9 cm x 4.2 cm x 5 cm Volume: 119.5 mL Cortical Thickness (if discernible): 12 mm (>6mm is normal) US/Kidney and Bladder IMPRESSION: NORMAL RENAL ULTRASOUND. Reading Location: [id number]
== END | disposition home or self-care (01) ==
LOC: US 10:43
PROVIDERS: PCP Student in an Organized Health Care Education/Training Program; Referring Provider Internal Medicine Nephrology; Visit Provider Internal Medicine Nephrology
DX: E87.5 Hyperkalemia (principal)
CPT/HCPCS: 36415; 76770; 80048

== ENCOUNTER → 2025-07-11 | Outpatient (CLI) | payer MEDICARE, OTHER, SELFPAY ==
[2025-07-11 18:32] LABS: Potassium 6.0 mmol/L (3.3-5.1)
== END | disposition home or self-care (01) ==
LOC: HHLAB 15:30
PROVIDERS: PCP Student in an Organized Health Care Education/Training Program; Visit Provider Student in an Organized Health Care Education/Training Program
DX: N18.4 Chronic kidney disease, stage 4 (severe) (principal)
CPT/HCPCS: 84132

== ENCOUNTER → 2025-07-16 | Outpatient (CLI) | payer MEDICARE, OTHER, SELFPAY ==
[2025-07-16 15:37] LABS: Potassium 5.2 mmol/L (3.3-5.1)
== END | disposition home or self-care (01) ==
LOC: HHLAB 13:01
PROVIDERS: PCP Student in an Organized Health Care Education/Training Program; Visit Provider Student in an Organized Health Care Education/Training Program
DX: E87.5 Hyperkalemia (principal)
CPT/HCPCS: 84132

== ENCOUNTER → 2025-07-24 | Outpatient (CLI) | payer MEDICARE, OTHER, SELFPAY ==
[2025-07-24 15:17] LABS: Potassium 4.9 mmol/L (3.3-5.1)
== END | disposition home or self-care (01) ==
LOC: HHLAB 13:24
PROVIDERS: PCP Student in an Organized Health Care Education/Training Program; Visit Provider Student in an Organized Health Care Education/Training Program
DX: I12.9 Hypertensive chronic kidney disease with stage 1 through stage 4 chronic kidney disease, or unspecified chronic kidney disease (principal); N18.9 Chronic kidney disease, unspecified
CPT/HCPCS: 84132

== ENCOUNTER → 2025-07-30 | Outpatient (CLI) | payer MEDICARE, OTHER, SELFPAY ==
[2025-07-30 18:08] LABS: Potassium 4.5 mmol/L (3.3-5.1)
--- OUTSIDE RECORDS SUMMARY | 2025-07-30 19:17 | XMS RPT_ITS | CCD ---
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 Layne Doherty Primary Care Provider Dr. Layne Doherty Referring Provider Dr. Satish Razo Attending Provider [phone] DAYANARA LEE, DR BAZZI Primary Care Physician [phone] Dr. Layne Doherty Primary Care Provider Dr. Layne Doherty Referring Provider Roof AROMATHERAPIST, AROMATHERAPIST-Mayra Murphy Attending Provider Dr. Braxton Doss Attending Provider Dr. Layne Doherty Referring Provider Roof AROMATHERAPIST, AROMATHERAPIST-C Maryuri Murphy Attending Provider Dr. Jluis Nichole Primary Care Provider [phone] Dr. Braxton Doss Attending Provider ANDRE ROMAN, DR WEBER Attending Un available ROMAR DO, DR BAZZI Primary Care Unavailable ROMAR , DR BAZZI Attending Unavailable ROMAR DO, DR BAZZI Primary Care Unavailable ANDRE ROMAN, DR WEBER Attending Un available ROMAR DO, DR BAZZI Primary Care Unavailable ANDRE ROMAN, DR WEBER Attending Un available ROMAR DO, DR BAZZI Primary Care Unavailable ROMAR DO, DR BAZZI Attending Unavailable ROMAR DO, DR BAZZI Primary Care Unavailable ROMAR DO, DR BAZZI Attending Unavailable ROMAR DO, DR BAZZI Primary Care Unavailable MARYURI BEGUM CNP Attending Unavailable DAYANARA LEE, DR BAZZI Primary Care Unavailable Jemal ROMAN, Adonis Unavailable Jluis Nichole DO Primary Care Provider [phone] Dayanara LEE, Dr. Bazzi Primary Care Provider Dayanara LEE, Dr. Bazzi Referring Provider [phone] Elijah Mills Attending Provider Romario ROMAN, Dr. Limon Attending Provider Shy AROMATHERAPIST-C, Maryuri Murphy Attending Provider Shy AROMATHERAPIST-C, Maryuri Murphy Referring Provider Bailey Salcedo Attending Provider Dayanara LEE, Dr. Bazzi Primary Care Provider Dayanara LEE, Dr. Bazzi Referring Provider [phone] Issa FARRIS-CSharon Attending Provider Dayanara LEE, Dr. Bazzi Primary Care Provider Dayanara LEE, Dr. Bazzi Referring Provider [phone] Bailey Salcedo Referring Provider Dr. Cheng Camarillo MD Attending Provider Issa FARRIS-CSharon Referring Provider [phone] Kali LEE, Dr. Story Other Provider [phone] Dr. Cecilio Siu MD Attending Provider Dr. Porsha Bass DO Attending Provider [phone] Dr. Porsha Bass DO Referring Provider TONEY GUTIERREZ Attending Unavailable JOSELITO NIELSEN JR Primary Care Unavailable Dayanara LEE, Dr. Bazzi Primary Care Physician Dayanara LEE, Dr. Bazzi Referring Provider [phone] Issa FARRIS-CSharon Attending Physician Bailey Salcedo Attending Physician Dr. Cheng Camarillo MD Attending Physician Kali LEE, Dr. Story Nurse Practitioner [phone] Salbador ROMAN, Dr. Hernandes Attending Physician Kali LEE, Dr. Story Attending Physician Romario ROMAN, Dr. Limon Attending Physician [phone] CHERYLAR DO, DR BAZZI Primary Care Unavailable ROMAR DO, DR BAZZI Attending Unavailable ROMAR DO, DR BAZZI Primary Care Unavailable DAVID LAST MD Attending Unavailable DEAN DO, FLORENTIN Attending Unavailable ROMAR DO, DR BAZZI Primary Care Unavailable ROMAR DO, DR BAZZI Primary Care Unavailable ROMAR DO, DR BAZZI Attending Unavailable ROMAR DO, DR BAZZI Primary Care Unavailable ROMAR DO, DR BAZZI Attending Unavailable ROMAR DO, DR BAZZI Primary Care Unavailable ROMAR DO, DR BAZZI Attending Unavailable ROMAR DO, DR BAZZI Primary Care Unavailable ROMAR DO, DR BAZZI Attending Unavailable ROMAR DO, DR BAZZI Primary Care Unavailable ANDRE ROMAN, DR WEBER Attending Un available ROMAR DO, DR BAZZI Primary Care Unavailable ROMAR DO, DR BAZZI Attending Unavailable Romar OLS, Jluis Attending Unavailable Romar, Jluis Primary Care Unavailable Roof AROMATHERAPIST, Maryuri H Referring Unavailable Roof AROMATHERAPIST Maryuri H Attending Unavailable Romar, Jluis Primary Care Unavailable Romar OLS, Jluis Attending Unavailable Romar, Jluis Primary Care Unavailable Romar, Jluis Primary Care Unavailable Bailey Salcedo Referring Unavail able Bailey Salcedo Attending Unavail able Jluis Nichole Referring Unavailable Braxton Doss Attending Unavailable Romar, Jluis Primary Care Unavailable Romar, Jluis Primary Care Unavailable Cheng Camarillo Attending Unavailable Sharon Parsons Referring Unavailable Cecilio Siu Attending Unavailable Romar, Jluis Primary Care Unavailable Romar, Jluis Primary Care Unavailable Elijah Mills Attending Unavailable RomarJluis Referring Unavailable Romar, Jluis Primary Care Unavailable Braxton Doss Attending Unavailable RomarJluis Referring Unavailable Romar, Jluis Primary Care Unavailable Bailey Salcedo Attending Unavail able RomarJluis Referring Unavailable Sharon Parsons Attending Unavailable Romar, Jluis Primary Care Unavailable Romar, Jluis Referring Unavailable Porsha Bass Consulting Unavailable Sharon Parsons Referring Unavailable Sharon Parsons Attending Unavailable Jluis Nichole Primary Care Unavailable Porsha Bass Attending Unavailable Jluis Nichole Primary Care Unavailable Porsha Bass Referring Unavailable Porsha Bass Attending Unavailable Jluis Nichole Primary Care Unavailable Jluis Penaloza Attending Unavailable Jluis Nichole Primary Care Unavailable DAYANARA LEE, DR BAZZI Attending Unavailable DAYANARA LEE, DR BAZZI Primary Care Unavailable Allergies Allergy Classification Reported Allergen(s) Allergy Type Date of Onset Reaction(s) Facility (6 sources) Antibiotics; Translations: [Antibiotics] Propensity to adverse reactions 11-29-2024 C-diff [facility] Comment on above: Per patient he needs to take vancomycin with any antibiotic treatment Medications Current Medications Medication Drug Class(es) Dates Sig (Normalized) Sig (Original) acetaminophen 500 mg oral tablet (20 sources) Start: 02-23-2025 take 1 mg by mouth every six hours Tylenol Extra Strength 500 mg oral tablet mg = tab(s), Oral, q6hr, 0 Refill(s) Start Date: 02/23/25 Status: Ordered Medication Dispense Status: Completed Total Allowed Fills: 1 Fills Dispensed: 0 Start: 02-25-2021 take 2 tablets by mo uth every six hours as needed Start: 02-25-2021 take 650 mg by mouth every six hours Acetaminophen Active 650 MG PO EVERY 6 HOURS February 25, 2021 12:00am Start: 12-27-2020 acetaminophen 325 mg oral tablet Dose : 975 mg = 3 tab(s), Oral, qDay, PRN as needed for fever Start Date: 12/27/20 Status: Ordered Start: 03-22-2019 End: 02-25-2021 Acetaminophen 500 MG tablet Discontinued 750 mg PO DAILY March 22, 2019 12:00am February 25, 2021 8:17am Start: 03-22-2019 End: 02-25-2021 take 750 mg by mouth once daily Acetaminophen Disconti nued 750 MG PO DAILY March 22, 2019 12:00am February 25, 2021 8:17am Start: 06-16-2018 End: 07-27-2018 take 2 tablets by mouth every eight hours as needed for pain Acetaminophen 500 MG tablet Discontinued 1000 mg PO Q8H as needed for Mild Pain (-11/27) 0 June 16, 2018 12:00am July 27, 2018 12:41pm Start: 06-16-2018 End: 07-27-2018 take 1000 mg by mouth every eight hours Acetaminophen Discontinued 1000 MG PO Q8H June 16, 2018 12:00am July 27, 2018 12:41pm Start: 05-27-2018 take 2 tablets enter al route every four hours as needed acetaminophen (TYLENOL) 325 mg tablet 2 tablets by ORAL/FEEDING TUBE route every 4 hours as needed. 05/27/2018 Active Start: 05-27-2018 End: 06-16-2018 take 2 tablets by mouth every four hours Acetaminophen 325 MG tablet Discontinued 650 mg PO Q4H May 27, 2018 12:00am June 16, 2018 8:07pm pain Start: 05-27-2018 End: 06-16-2018 take 650 mg by mouth every four hours Acetaminophen Discontinued 650 MG PO Q4H May 27, 2018 12:00am June 16, 2018 8:07pm amoxicillin 875 mg / clavulanate 125 mg oral tablet (4 sources) Penicillin-class Antibacterial Start: 07-04-2025 End: 07-14-2025 take 1 tablet by mouth every twelve hours at mealtime amoxicillin-clavulanate 875 mg-125 mg oral tablet 1 tab(s), Oral, q12h, with food or milk, X 10 day(s), # 20 tab(s), 0 Refill(s), 07/14/25 5:16:00 PM EDT, Pharmacy: [facility]/pharmacy #[id number], 172, cm, 07/04/25 13:52:00 EDT, Height, 90.6, kg, 07/04/25 13:52:00 EDT, Dosing Weight Start Date: 07/04/25 Stop Date: 07/14/25 Status: Ordered Medication Dispense Status: Completed Quantity: 20.0 Unit: tab(s) Total Allowed Fills: 1 Fills Dispensed: 0 aspirin 81 mg delayed release oral tablet (20 sources) Platelet Aggregation Inhibitor, Nonsteroidal Anti-inflammatory Drug Start: 04-16-2022 aspirin 81 mg oral delayed release tablet Dose : 81 mg = 1 tab(s), Oral, Daily, 0 Refill(s) Start Date: 04/16/22 Status: Ordered Repeat number: 1 Start: 05-27-2018 End: 02-25-2021 take 1 tablet by mouth at bedtime atorvastatin 40 mg oral tablet (20 sources) HMG-CoA Reductase Inhibitor Start: 03-02-2023 End: 10-21-2025 take 1 tablet by mouth once daily at bedtime atorvastatin 40 mg oral tablet 1 tab(s), Oral, qHS, pt would like prepackaged meds, # 100 tab(s), 1 Refill(s), Pharmacy: [facility] [id number], 182.9, cm, 02/22/25 17:36:00 EDT, Height, kg, 02/22/25 17:36:00 EDT, Dosing Weight Start Date: 04/04/25 Stop Date: 10/21/25 Status: Ordered Medication Dispense Status: Completed Quantity: 100.0 Unit: tab(s) Total Allowed Fills: 2 Fills Dispensed: 0 Start: 09-21-2022 take 1 tablet by zach th once daily at bedtime atorvastatin 40 mg oral tablet 1 tab(s), Oral, qHS, # 90 tab(s), 1 Refill(s), Pharmacy: [facility]/pharmacy #[id number], 175, cm, 09/21/22 8:31:00 EST, Height, kg, 09/21/22 8:31:00 EST, Dosing Weight Start Date: 09/21/22 Status: Ordered Start: 09-01-2022 End: 03-02-2023 take 2 tablets by mouth at bedtime Atorvastatin 40 mg tablet Discontinued 80 mg PO AT BEDTIME September 01, 2022 9:26am March 02, 2023 8:36am CHOLESTEROL Start: 09-01-2022 End: 03-02-2023 take 80 mg by mouth at bedtime Atorvastatin Discontinu ed 80 MG PO AT BEDTIME September 01, 2022 9:26am March 02, 2023 8:36am Start: 06-23-2019 End: 09-01-2022 take 1 tablet by mouth at bedtime Atorvastatin 40 mg tablet Discontinued 40 mg PO AT BEDTIME 90 3 June 23, 2019 11:11am September 01, 2022 9:28am CHOLESTEROL Start: 03-29-2019 End: 06-23-2019 Atorvastatin 80 mg tablet Discontinued 40 mg PO AT BEDTIME March 29, 2019 1:52pm June 23, 2019 11:11am CHOLESTEROL Start: 03-29-2019 End: 06-23-2019 take 40 mg by mouth at bedtime Atorvastatin Discontinu ed 40 MG PO AT BEDTIME March 29, 2019 1:52pm June 23, 2019 11:11am Start: 05-27-2018 End: 03-29-2019 take 1 tablet by mouth at bedtime Atorvastatin 80 mg tablet Discontinued 80 mg PO AT BEDTIME 90 3 July 07, 2018 4:21pm July 27, 2018 12:13pm sleep Azithromycin 5 Day Dose Pack 250 mg oral tablet (3 sources) Start: 07-04-2025 End: 07-09-2025 Azithromycin 5 Day Dose Pack 250 mg oral tablet Take two (2) tablets day 1-then one (1) tablet, Oral, Daily, X 5 day(s), # 6 tab(s), 0 Refill(s), 07/09/25 5:16:00 PM EDT, Pharmacy: [facility]/pharmacy #[id number], 172, cm, 07/04/25 13:52:00 EDT, Height, 90.6, kg, 07/04/25 13:52:00 EDT, Dosing Weight Start Date: 07/04/25 Stop Date: 07/09/25 Status: Ordered Medication Dispense Status: Completed Quantity: 6.0 Unit: tab(s) Total Allowed Fills: 1 Fills Dispensed: 0 Blood Pressure Machine/Cuff (12 sources) Start: 03-09-2022 Blood Pressure Machine/Cuff Active 0 .Route .MEDSUPPLY 1 0 March 09, 2022 12:00am As directed Start: 03-09-2022 Blood Pressure Machine/Cuff Active 0 .Route .MEDSUPPLY 1 March 09, 2022 12:00am As directed calcitriol 0.0005 mg oral capsule (15 sources) Vitamin D3 Analog Start: 11-11-2023 calcitriol 0 .5 mcg oral capsule Dose : 0.5 mcg = 1 cap(s), Oral, Daily, 0 Refill(s) Start Date: 11/11/23 Status: Ordered Start: 03-09-2022 End: 02-16-2025 take 1 capsule by mouth once daily Calcitriol 0.5 mcg capsule Discontinued 0.5 ug PO DAILY March 09, 2022 12:00am February 16, 2025 3:41pm carbidopa 25 mg / levodopa 100 mg oral tablet (20 sources) Aromatic Amino Acid Decarboxylation Inhibitor, Aromatic Amino Acid Start: 11-11-2023 End: 06-11-2025 take 1 tablet by mouth four times daily carbidopa-levodopa 25 mg-100 mg oral tablet Dose = 2 tab(s), Oral, QID, 0 Refill(s) Start Date: 11/11/23 Status: Ordered Medication Dispense Status: Completed Total Allowed Fills: 1 Fills Dispensed: 0 Start: 03-02-2023 End: 03-28-2025 Carbidopa-Levodopa 25-100 mg tablet Discontinued 1 {tbl} PO THREE TIMES A DAY 270 April 07, 2023 12:34pm April 07, 2023 3:30pm Start: 03-02-2023 take 1 tablet by zach th three times daily Carbidopa-Levodopa Active 1 TABLET PO THREE TIMES A DAY March 02, 2023 8:34am Start: 11-26-2022 End: 03-02-2023 take 1 tablet by mouth once daily, then take 1 tablet by mouth twice daily, then take 1 tablet by mouth three times daily Carbidopa-Levodopa 25-100 mg tablet Discontinued 1 {tbl} PO .COMPLEX 90 November 26, 2022 1:00am March 02, 2023 8:36am 1 Tab PO daily for one week then 1 tab BID for one week then 1 tab TID thereafter; Start: 11-26-2022 End: 03-02-2023 take 1 tablet by mouth once daily, then take 1 tablet by mouth twice daily, then take 1 tablet by mouth three times daily Carbidopa-Levodopa Discontinued 1 TABLET PO .COMPLEX 90 November 26, 2022 1:00am March 02, 2023 8:36am 1 Tab PO daily for one week then 1 tab BID for one week then 1 tab TID thereafter; cholecalciferol 0.125 mg oral tablet (6 sources) Vitamin D Start: 02-21-2025 cholecalciferol 125 mcg (5000 intl units) oral tablet Dose : 125 mcg = 1 tab(s), Oral, Every other day, with food, # 100 tab(s), 0 Refill(s) Start Date: 02/21/25 Status: Ordered Medication Dispense Status: Completed Quantity: 100.0 Unit: tab(s) Total Allowed Fills: 1 Fills Dispensed: 0 cyanocobalamin, vitamin B-12, (VITAMIN B-12 ORAL) (1 source) take 1 tablet by mouth once daily cyanocobalamin, vitamin B-12, (VITAMIN B-12 ORAL) Take 1 tablet by mouth once daily. Active Benadryl (7 sources) Histamine-1 Receptor Antagonist Start: 02-23-2025 Benadryl PRN, 0 Refill(s) Start Date: 02/23/25 Status: Ordered Medication Dispense Status: Completed Total Allowed Fills: 1 Fills Dispensed: 0 Start: 02-23-2025 Benadryl PRN, 0 Refill(s) Start Date: 02/23/25 Status: Ordered Repeat number: 1 Start: 10-07-2022 Benadryl 25 mg oral capsule Dose : 25 mg = 1 cap(s), Oral, q4h, PRN as needed for allergy symptoms, # 24 cap(s), 0 Refill(s) Start Date: 10/07/22 Status: Ordered DME MISCellaneous (10 sources) Start: 05-23-2025 DME MISCellane ous See Instructions, Bilateral knee high compression hose medium 20-30, Dx: R60.9, # 1 EA, 0 Refill(s), Peripheral edema, 95.7 Start Date: 05/23/25 Status: Ordered Medication Dispense Status: Completed Quantity: 1.0 Unit: EA Total Allowed Fills: 1 Fills Dispensed: 0 Indications: Edema, unspecified; Start: 11-11-2023 DME MISCellane ous See Instructions, Life alert or equivalent system Dx: I63.9, # 1 EA, 0 Refill(s), Cerebrovascular accident (CVA), 89.9 Start Date: 11/11/23 Status: Ordered Quantity: 1.0 Unit: EA Repeat number: 1 Indication: Cerebral infarction, unspecified Start: 11-11-2023 DME MISCellane ous See Instructions, Life alert or equivalent system Dx: I63.9, # 1 EA, 0 Refill(s), Cerebrovascular accident (CVA), 89.9 Start Date: 11/11/23 Status: Ordered doxazosin 4 mg oral tablet (20 sources) alpha-Adrenergic Isidro Start: 03-02-2023 take 1 tablet by mouth once daily at bedtime doxazosin 4 mg oral tablet TAKE 1 TABLET BY MOUTH EVERYDAY AT BEDTIME Start Date: 11/11/23 Status: Ordered Medication Dispense Status: Completed Total Allowed Fills: 1 Fills Dispensed: 0 fluticasone propionate 0.05 mg/actuat metered dose nasal spray (20 sources) Corticosteroid Start: 04-07-2021 take 1 dose nasal route twice daily fluticasone proprionate NASAL 50 mcg/ spray Dose = 1 spray(s), Nostril, each, BID, 0 Refill(s) Start Date: 04/07/21 Status: Ordered Start: 02-26-2021 End: 10-14-2021 take 50 ug nasal route once daily Fluticasone Propionate (Allergy Relief (Fluticasone)) 50 mcg/actuation spray,suspension Discontinued 2 NMA INTRANASAL DAILY February 26, 2021 12:00am October 14, 2021 10:02am administer into each nostril Start: 02-26-2021 End: 10-14-2021 take 1 spray(s) nasal route once daily Fluticasone Propionate (Allergy Relief (Fluticasone)) 50 mcg/actuation spray,suspension Discontinued 2 SPRAY INTRANASAL DAILY February 26, 2021 12:00am October 14, 2021 10:02am administer into each nostril fluticasone proprionate NASAL 50 mcg/ spray (1 source) Start: 04-07-2021 take 1 dose nasal route twice daily fluticasone proprionate NASAL 50 mcg/ spray Dose = 1 spray(s), Nostril, each, BID, 0 Refill(s) Start Date: 04/07/21 Status: Ordered Magnesium (1 source) take 1 tablet by mouth once daily MAGNESIUM ORAL Take 1 tablet by mouth once daily. Active Magnesium Oxide (20 sources) Start: 02-21-2025 magnesium oxid e Oral, 0 Refill(s) Start Date: 02/21/25 Status: Ordered Repeat number: 1 Start: 08-14-2024 End: 08-28-2024 magnesium oxide 400 mg oral tablet Dose : 400 mg = 1 tab(s), Oral, qDay, X 14 day(s), # 14 tab(s), 0 Refill(s), 08/28/24 2:31:00 PM EST, Pharmacy: [facility]/pharmacy #[id number], 172, cm, 08/11/24 10:00:00 EST, Height, kg, 08/11/24 10:00:00 EST, Dosing Weight Start Date: 08/14/24 Stop Date: 08/28/24 Status: Ordered Start: 02-26-2021 End: 10-14-2021 take 1 tablet by mouth once daily Magnesium Oxide 400 mg magnesium tablet Discontinued 400 mg PO DAILY February 26, 2021 12:00am October 14, 2021 10:01am Start: 12-31-2020 End: 01-14-2021 magnesium oxide 400 mg (241. 3 mg elemental magnesium) oral tablet Dose : 400 mg = 1 tab(s), Oral, qDay, # 14 tab(s), 0 Refill(s), [id number] 172.7, cm, 12/27/20 12:02:00 EDT, Height, kg, 12/27/20 12:02:00 EDT, Dosing Weight Start Date: 12/31/20 Stop Date: 01/14/21 Status: Ordered melatonin 3 mg oral tablet (20 sources) Start: 10-14-2021 End: 03-02-2024 take 2 tablets by mouth at bedtime as needed Start: 10-14-2021 take 6 mg by mouth at bedtime Melatonin Active 6 MG PO AT BEDTIME October 14, 2021 10:01am Start: 05-27-2018 End: 10-14-2021 take 1 tablet by mouth at bedtime Melatonin 3 MG tablet Discontinued 3 mg PO AT BEDTIME May 27, 2018 12:00am October 14, 2021 10:05am metoprolol tartrate 100 mg oral tablet (20 sources) beta-Adrenergic Isidro Start: 05-23-2025 take 1 tablet by mouth every twenty-four hours, then take 1 tablet by mouth twice daily Start: 02-21-2025 End: 12-09-2025 Metoprolol Succinate ER 100 mg oral TABLET extended release Dose : 50 mg = 0.5 tab(s), Oral, BID, do not crush or chew pt would like prepackaged meds, # 100 tab(s), 1 Refill(s), Pharmacy: [facility] [id number], 172, cm, 05/23/25 9:57:00 EDT, Height, kg, 05/23/25 9:42:00 EDT, Dosing Weight Start Date: 05/23/25 Stop Date: 12/09/25 Status: Ordered Medication Dispense Status: Completed Quantity: 100.0 Unit: tab(s) Total Allowed Fills: 2 Fills Dispensed: 0 Start: 09-28-2024 Metoprolol Suc cinate ER 100 mg oral TABLET extended release Dose : 100 mg = 1 tab(s), Oral, BID, TAKE 1 TABLET BY MOUTH TWICE A DAY DO NOT CRUSH OR CHEW, # 180 tab(s), 1 Refill(s), Pharmacy: [facility]/pharmacy #[id number], 172, cm, 08/11/24 10:00:00 EST, Height, kg, 08/11/24 10:00:00 EST, Dosing Weight Start Date: 09/28/24 Status: Ordered Quantity: 180.0 Unit: tab(s) Repeat number: 2 Start: 03-29-2024 Metoprolol Suc cinate ER 100 mg oral TABLET extended release Dose : 100 mg = 1 tab(s), Oral, BID, TAKE 1 TABLET BY MOUTH TWICE A DAY DO NOT CRUSH OR CHEW, # 180 tab(s), 1 Refill(s), Pharmacy: [facility]/pharmacy #[id number], 172, cm, 12/14/23 8:38:00 EDT, Height, kg, 12/14/23 8:38:00 EDT, Dosing Weight Start Date: 03/29/24 Status: Ordered Start: 12-31-2023 Metoprolol Suc cinate ER 100 mg oral TABLET extended release Dose : 100 mg = 1 tab(s), Oral, BID, TAKE 1 TABLET BY MOUTH TWICE A DAY DO NOT CRUSH OR CHEW, # 180 tab(s), 0 Refill(s), Pharmacy: [facility]/pharmacy #[id number], 172, cm, 12/14/23 8:38:00 EDT, Height, kg, 12/14/23 8:38:00 EDT, Dosing Weight Start Date: 12/31/23 Status: Ordered Start: 07-01-2022 Metoprolol Suc cinate ER 100 mg oral TABLET extended release Dose : 100 mg = 1 tab(s), Oral, BID, TAKE 1 TABLET BY MOUTH TWICE A DAY FOR BLOOD PRESSURE. HOLD FOR SBP LESS THAN 110, HR LESS THAN 55, # 180 tab(s), 1 Refill(s), Pharmacy: [facility]/pharmacy #[id number], 175, cm, 04/16/22 7:17:00 EDT, Height, kg, 04/16/22 7:17:... Start Date: 07/01/22 Status: Ordered Start: 11-11-2021 take 1 tablet by zach th twice daily Metoprolol Succinate ER 100 mg oral TABLET extended release See Instructions, TAKE 1 TABLET BY MOUTH TWICE A DAY FOR BLOOD PRESSURE. HOLD FOR SBP LESS THAN 110, HR LESS THAN 55, # 180 tab(s), 1 Refill(s), Pharmacy: [facility]/pharmacy #[id number], 175, cm, 06/16/21 8:33:00 EDT, Height, kg, 06/16/21 8:33:00 EDT, Dosing Weight Start Date: 11/11/21 Status: Ordered Start: 05-27-2018 End: 05-23-2025 take 1 tablet by mouth twice daily Metoprolol Succinate 100 mg tablet extended release 24 hr Discontinued 100 mg PO TWICE A DAY 180 3 June 23, 2019 11:12am May 23, 2025 3:50pm blood pressure Hold for SBP pantoprazole 40 mg delayed release oral tablet (20 sources) Proton Pump Inhibitor Start: 04-04-2025 End: 10-01-2025 pantoprazole 40 mg oral enteric coated tablet 1 tab(s), Oral, qDayAC, Pt would like prepackaged meds, # 90 tab(s), 1 Refill(s), Pharmacy: [place] [id number], 182.9, cm, 02/22/25 17:36:00 EDT, Height, kg, 02/22/25 17:36:00 EDT, Dosing Weight Start Date: 04/04/25 Stop Date: 10/01/25 Status: Ordered Medication Dispense Status: Completed Quantity: 90.0 Unit: tab(s) Total Allowed Fills: 2 Fills Dispensed: 0 Start: 05-27-2018 End: 03-24-2025 take 1 tablet by mouth once daily rOPINIRole 1 mg oral tablet (20 sources) Nonergot Dopamine Agonist Start: 02-23-2025 take 0.5 mg by mouth once daily rOPINIRole 1 mg oral tablet TAKE 1 TABLET BY MOUTH AT BEDTIME BEGIN AFTER COMPLETING 1 WEEK COURSE OF ROPINIROLE 0.5 MG NIGHTLY. Start Date: 02/23/25 Status: Ordered Medication Dispense Status: Completed Total Allowed Fills: 1 Fills Dispensed: 0 Start: 11-29-2024 End: 06-11-2025 take 1 tablet by mouth at bedtime Ropinirole 1 mg tablet Active 1 mg PO AT BEDTIME 30 June 11, 2025 2:33pm Complies with drug therapy Start: 11-29-2024 End: 03-28-2025 take 1 tablet by mouth at bedtime Ropinirole 0.5 mg tablet Discontinued 0.5 mg PO AT BEDTIME 7 November 29, 2024 12:00am March 28, 2025 10:23am sertraline 50 mg oral tablet (5 sources) Serotonin Reuptake Inhibitor Start: 02-21-2025 sertraline 50 mg ora l tablet Dose : 50 mg = 1 tab(s), Oral, qDay, # 90 tab(s), 0 Refill(s), Pharmacy: [facility]/pharmacy #[id number], 172, cm, 02/21/25 9:16:00 EDT, Height, kg, 02/21/25 9:16:00 EDT, Dosing Weight Start Date: 02/21/25 Status: Ordered Quantity: 90.0 Unit: tab(s) Repeat number: 1 Start: 06-28-2024 End: 09-26-2024 sertraline 25 mg oral tablet Dose : 25 mg = 1 tab(s), Oral, qDay, # 90 tab(s), 0 Refill(s), Pharmacy: [facility]/pharmacy #[id number], 172, cm, 06/28/24 8:58:00 EDT, Height, kg, 06/28/24 8:49:00 EDT, Dosing Weight Start Date: 06/28/24 Stop Date: 09/26/24 Status: Ordered Quantity: 90.0 Unit: tab(s) Repeat number: 1 [place] [address] mg powder for oral suspension (20 sources) Start: 03-02-2024 Start: 04-16-2022 take 1 dose by mouth once daily Lokelma 10 g oral powder for reconstitution 1 packet(s), Oral, qDay, do not take within 2 hours of other medications, # 30 EA, 0 Refill(s) Start Date: 04/16/22 Status: Ordered Medication Dispense Status: Completed Quantity: 30.0 Unit: EA Total Allowed Fills: 1 Fills Dispensed: 0 Start: 03-09-2022 End: 03-02-2024 Sodium Zirconium Cyclosilica te (Lokelma) 5 gram powder in packet Discontinued 10 g PO DAILY March 09, 2022 12:00am March 02, 2024 8:37am therapeutic multivitamin (THERA VITAMIN) tablet (1 source) Start: 05-28-2018 take 1 tablet by mouth once daily therapeutic multivitamin (THERA VITAMIN) tablet Take 1 tablet by mouth once daily. 05/28/2018 Active Vitamin B12 1000 mcg oral tablet (3 sources) Start: 08-14-2024 Vitamin B12 10 00 mcg oral tablet Dose : 1,000 mcg = 1 tab(s), Oral, qDay, # 90 tab(s), 0 Refill(s), [facility] #[id number], 172, cm, 08/11/24 10:00:00 EST, Height, kg, 08/11/24 10:00:00 EST, Dosing Weight Start Date: 08/14/24 Status: Ordered Quantity: 90.0 Unit: tab(s) Repeat number: 1 Start: 08-14-2024 Vitamin B12 10 00 mcg oral tablet Dose : 1,000 mcg = 1 tab(s), Oral, qDay, # 90 tab(s), 0 Refill(s), Pharmacy: [facility]/pharmacy #[id number], 172, cm, 08/11/24 10:00:00 EST, Height, kg, 08/11/24 10:00:00 EST, Dosing Weight Start Date: 08/14/24 Status: Ordered Vitamin B12 500 mcg oral tablet (1 source) Start: 02-22-2025 End: 05-23-2025 Vitamin B12 500 mcg oral tab let Dose : 500 mcg = 1 tab(s), Oral, qDay, # 90 tab(s), 0 Refill(s), Pharmacy: [facility]/pharmacy #[id number], 172, cm, 02/21/25 9:16:00 EDT, Height, kg, 02/21/25 9:16:00 EDT, Dosing Weight Start Date: 02/22/25 Stop Date: 05/23/25 Status: Ordered Quantity: 90.0 Unit: tab(s) Repeat number: 1 Completed/Discontinued Medications Medication Drug Class(es) Dates Sig (Normalized) Sig (Original) amiodarone hydrochloride 200 mg oral tablet (12 sources) Antiarrhythmic Start: 05-27-2018 End: 06-16-2018 take 1 tablet by mouth once daily Amiodarone (Pacerone) 200 MG tablet Discontinued 200 mg PO DAILY May 27, 2018 12:00am June 16, 2018 8:11pm heart rate cetirizine hydrochloride 10 mg oral tablet (20 sources) Histamine-1 Receptor Antagonist Start: 02-20-2021 End: 11-26-2022 take 1 tablet by mouth once daily as needed Cetirizine 10 mg tablet Discontinued 10 mg PO DAILY as needed for allergy symptoms March 09, 2022 8:37am November 26, 2022 11:08am ciprofloxacin 500 mg oral tablet (20 sources) Quinolone Antimicrobial Start: 03-29-2019 End: 04-03-2019 take 1 tablet by mouth twice daily Ciprofloxacin Hcl 500 MG tablet Discontinued 500 mg PO TWICE A DAY 6 0 March 29, 2019 12:00am April 03, 2019 12:59pm Start: 08-03-2018 End: 10-12-2018 take 1 tablet by mouth twice daily Ciprofloxacin Hcl 500 MG tablet Discontinued 500 mg PO TWICE A DAY 14 0 August 03, 2018 1:00am October 12, 2018 11:53am clopidogrel 75 mg oral tablet (20 sources) [id number] Platelet Inhibitor Start: 05-27-2018 End: 03-02-2023 take 1 tablet by mouth once daily Clopidogrel 75 mg tablet Discontinued 75 mg PO DAILY 90 3 July 07, 2018 4:21pm August 03, 2018 1:36pm antiplatelet 0.3 ml enoxaparin sodium 100 mg/ml prefilled syringe (12 sources) Low Molecular Weight Heparin Start: 05-27-2018 End: 06-16-2018 Enoxaparin 30 MG/0.3 ML syringe Discontinued 30 mg SC DAILY@0600 May 27, 2018 12:00am June 16, 2018 8:08pm prevents blood clots finasteride 5 mg oral tablet (20 sources) 5-alpha Reductase Inhibitor Start: 09-01-2022 End: 03-02-2023 take 1 tablet by mouth once daily Finasteride 5 mg tablet Discontinued 5 mg PO DAILY September 01, 2022 1:00am March 02, 2023 8:37am Start: 05-27-2018 End: 06-16-2018 take 1 tablet by mouth once daily Finasteride 5 MG tablet Discontinued 5 mg PO DAILY May 27, 2018 12:00am June 16, 2018 8:11pm prostate furosemide 20 mg oral tablet (20 sources) Loop Diuretic Start: 09-01-2022 End: 03-02-2023 take 1 tablet by mouth once daily Furosemide (Lasix) 20 mg tablet Discontinued 20 mg PO DAILY September 01, 2022 1:00am March 02, 2023 8:37am Start: 07-07-2018 End: 02-25-2021 take 1 tablet by mouth once daily Furosemide 20 mg tablet Discontinued 20 mg PO DAILY January 22, 2021 11:10am February 25, 2021 8:19am Start: 05-27-2018 End: 06-06-2018 take 1 tablet by mouth once daily Furosemide 20 MG tablet Discontinued 20 mg PO DAILY May 27, 2018 12:00am June 06, 2018 2:21pm diuretic lisinopril 10 mg oral tablet (20 sources) Angiotensin Converting Enzyme Inhibitor Start: 05-23-2025 End: 05-23-2025 take 1 tablet by mouth twice daily Lisinopril 10 mg tablet Discontinued 10 mg PO TWICE A DAY 60 11 May 23, 2025 12:00am May 23, 2025 3:49pm This is a dose DECREASE due to low bp Start: 02-21-2025 lisinopril 10 mg oral tablet Dose : 10 mg = 1 tab(s), Oral, qDay, # 30 tab(s), 0 Refill(s) Start Date: 02/21/25 Status: Ordered Quantity: 30.0 Unit: tab(s) Repeat number: 1 Start: 03-02-2023 End: 05-23-2025 take 1 tablet by mouth twice daily Lisinopril 20 mg tablet Discontinued 20 mg PO TWICE A DAY September 19, 2024 8:52am May 23, 2025 1:29pm Start: 11-26-2022 End: 03-02-2023 take 10 mg by mouth twice daily Lisinopril 20 mg table t Discontinued 10 mg PO TWICE A DAY November 26, 2022 11:06am March 02, 2023 8:36am Start: 11-26-2022 End: 03-02-2023 take 10 mg by mouth twice daily Lisinopril Discontinue d 10 MG PO TWICE A DAY November 26, 2022 11:06am March 02, 2023 8:36am Start: 09-29-2022 End: 10-05-2022 take 1 tablet by mouth once daily Lisinopril 10 mg tablet Discontinued 10 mg PO DAILY 90 September 29, 2022 12:59pm October 05, 2022 12:05pm Start: 09-01-2022 End: 09-29-2022 take 10 mg by mouth once daily Lisinopril 20 mg tablet Discontinued 10 mg PO DAILY September 01, 2022 9:27am September 29, 2022 12:59pm This is a dose increase Start: 09-01-2022 End: 09-29-2022 take 10 mg by mouth once daily Lisinopril Discontinued 10 MG PO DAILY September 01, 2022 9:27am September 29, 2022 12:59pm Start: 11-11-2021 End: 11-26-2022 take 1 tablet by mouth twice daily Lisinopril 20 mg tablet Discontinued 20 mg PO TWICE A DAY October 05, 2022 1:00am November 26, 2022 11:08am Start: 11-11-2021 lisinopril 10 mg oral tablet Dose : 10 mg = 1 tab(s), Oral, BID, TAKE 1 TABLET BY MOUTH TWICE A DAY, # 180 tab(s), 1 Refill(s), Pharmacy: [facility]/pharmacy #[id number], 175, cm, 06/16/21 8:33:00 EDT, Height, kg, 06/16/21 8:33:00 EDT, Dosing Weight Start Date: 11/11/21 Status: Ordered Start: 10-14-2021 End: 11-11-2021 take 1 tablet by mouth once daily Lisinopril 20 mg tablet Discontinued 20 mg PO DAILY 90 October 14, 2021 10:23am November 11, 2021 4:32pm Start: 10-14-2021 End: 10-14-2021 take 2 tablets by mouth once daily Lisinopril 10 mg tablet Discontinued 20 mg PO DAILY October 14, 2021 10:20am October 14, 2021 10:24am Start: 10-14-2021 End: 10-14-2021 take 20 mg by mouth once daily Lisinopril Discontinued 20 MG PO DAILY October 14, 2021 10:20am October 14, 2021 10:24am Start: 10-14-2021 End: 10-14-2021 take 1 tablet by mouth once daily Lisinopril 10 mg tablet Discontinued 10 mg PO DAILY October 14, 2021 1:00am October 14, 2021 10:21am Start: 10-12-2018 End: 02-25-2021 take 1 tablet by mouth once daily Lisinopril 10 mg tablet Discontinued 10 mg PO DAILY October 12, 2018 1:00am February 25, 2021 8:19am Start: 07-07-2018 End: 10-12-2018 take 4 tablets by mouth once daily Lisinopril 2.5 mg tablet Discontinued 10 mg PO DAILY July 07, 2018 12:00am October 12, 2018 11:52am BP Start: 07-07-2018 End: 10-12-2018 take 10 mg by mouth once daily Lisinopril Discontinued 10 MG PO DAILY July 07, 2018 12:00am October 12, 2018 11:52am Start: 05-27-2018 End: 06-06-2018 take 1 tablet by mouth once daily Lisinopril 2.5 MG tablet Discontinued 2.5 mg PO DAILY May 27, 2018 12:00am June 06, 2018 2:22pm blood pressure menthol 0.0044 mg/mg / zinc oxide 0.2 mg/mg topical ointment (12 sources) Start: 06-16-2018 End: 07-07-2018 Menthol-Zinc Oxide 1 APPLIC ointment Discontinued 1 NMA TOPICAL 599,0 0 June 16, 2018 12:00am July 07, 2018 2:34pm Please contact the information source for Protocol details. Start: 06-16-2018 End: 07-07-2018 Menthol-Zinc Oxide Discontin ued 1 APPLIC TOPICAL 599,0 June 16, 2018 12:00am July 07, 2018 2:34pm metFORMIN hydrochloride 1000 mg oral tablet (20 sources) Biguanide Start: 09-01-2022 End: 03-02-2023 take 1 tablet by mouth twice daily Metformin 1,000 mg tablet Discontinued 1000 mg PO TWICE A DAY September 01, 2022 1:00am March 02, 2023 8:37am Start: 05-27-2018 End: 02-25-2021 take 2 tablets by mouth twice daily at mealtime Metformin 500 MG tablet Discontinued 1000 mg PO TWICE DAILY WITH MEALS May 27, 2018 12:00am February 25, 2021 8:19am diabetes Start: 05-27-2018 End: 02-25-2021 take 1000 mg by mouth twice daily at mealtime Metformin Discontinued 1000 MG PO TWICE DAILY WITH MEALS May 27, 2018 12:00am February 25, 2021 8:19am nystatin 954187 unt/ml oral suspension (12 sources) Polyene Antifungal Start: 06-16-2018 End: 07-07-2018 take [id number] [IU] by mouth four times daily Nystatin 500,000 UNIT/5 ML suspension Discontinued [id number] U PO 4 TIMES DAILY 150 0 June 16, 2018 12:00am July 07, 2018 2:35pm ondansetron 4 mg disintegrating oral tablet (12 sources) Serotonin-3 Receptor Antagonist Start: 05-27-2018 End: 06-06-2018 take 1 tablet by mouth every six hours as needed for nausea Ondansetron 4 MG tablet Discontinued 4 mg PO EVERY 6 HOURS NEEDED as needed for Nausea May 27, 2018 12:00am June 06, 2018 2:21pm 24 hr oxybutynin chloride 10 mg extended release oral tablet (12 sources) Cholinergic Muscarinic Antagonist Start: 01-25-2019 End: 02-26-2021 take 1 tablet by mouth once daily Oxybutynin Chloride 10 MG tablet extended release 24hr Discontinued 10 mg PO DAILY January 25, 2019 12:00am February 26, 2021 11:03am oxyCODONE hydrochloride 5 mg oral tablet (12 sources) Opioid Agonist Start: 05-27-2018 End: 06-06-2018 take 1 tablet by mouth every six hours as needed for pain Oxycodone 5 MG tablet Discontinued 5 mg PO EVERY 6 HOURS NEEDED as needed for Mod-Severe Pain (4-10/10) May 27, 2018 12:00am June 06, 2018 2:21pm tamsulosin hydrochloride 0.4 mg oral capsule (20 sources) alpha-Adrenergic Isidro Start: 09-01-2022 End: 03-02-2023 take 1 capsule by mouth at bedtime Tamsulosin 0.4 mg capsule Discontinued 0.4 mg PO AT BEDTIME September 01, 2022 1:00am March 02, 2023 8:37am Start: 05-27-2018 End: 10-12-2018 take 1 capsule by mouth at bedtime Tamsulosin 0.4 MG capsule Discontinued 0.4 mg PO AT BEDTIME 30 0 June 16, 2018 8:10pm October 12, 2018 11:52am prostate Therapeutic Multivitamin (4 sources) Start: 05-27-2018 End: 11-26-2022 Therapeutic Multivitamin Dis continued 1 EACH PO DAILY May 27, 2018 12:00am November 26, 2022 11:08am Start: 05-27-2018 Therapeutic Mu ltivitamin Active 1 EACH PO DAILY May 27, 2018 12:00am Therapeutic Multivitamin 1 E ACH tablet (8 sources) Start: 05-27-2018 End: 11-26-2022 Therapeutic Multivitamin 1 E ACH tablet Discontinued 1 NMA PO DAILY May 27, 2018 12:00am November 26, 2022 11:08am vitamin Start: 05-27-2018 End: 11-26-2022 Therapeutic Multivitamin 1 E ACH tablet Discontinued 1 NMA PO DAILY May 27, 2018 12:00am November 26, 2022 11:08am vancomycin 125 mg oral capsule (12 sources) Glycopeptide Antibacterial Start: 10-14-2021 End: 11-26-2022 take 1 capsule by mouth three times daily as needed Vancomycin 125 mg capsule Discontinued 125 mg PO THREE TIMES A DAY as needed for C-diff October 14, 2021 1:00am November 26, 2022 11:07am Takes for c-diff if he needs to take any antibiotics Problems Active Problems Problem Classification Problem Date Documented Da te Episodic/Chronic Acute and unspecified renal failure (13 sources) Injury of kidney; Translations: [Acute kidney failure, unspecified] Onset: 8 02-01-2019 Episodic Acute cerebrovascular disease (14 sources) Cerebrovascular accident 10-07-2022 Chronic Acute myocardial infarction (1 source) Myocardial infarction; Translations: [Non-ST elevation (NSTEMI) myocardial infarction] Onset: 8 05-27-2018 Chronic Anxiety disorders (10 sources) 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 Blindness and vision defects (16 sources) Abnormal vision 04-16-2022 Chronic Calculus of urinary tract (20 sources) Kidney stone 05-02-2018 Episodic Cardiac dysrhythmias (20 sources) Atrial fibrillation; Translations: [Unspecified atrial fibrillation] Onset: 8 Chronic Chronic kidney disease (16 sources) Chronic kidney disease stage 4; Translations: [Chronic kidney disease, stage 4 (severe)] Onset: 5 10-11-2022 Chronic Coagulation and hemorrhagic disorders (11 sources) Thrombocytopenic disorder; Translations: [Thrombocytopenia, unspecified] Onset: 4 08-11-2024 Chronic Complication of device; implant or graft (12 sources) Complication of urinary catheter; Translations: [Unspecified complication of genitourinary prosthetic device, implant and graft, initial encounter] 07-04-2018 Episodic Complications of surgical procedures or medical care (13 sources) Atrial fibrillation; Translations: [Other postprocedural complications and disorders of the circulatory system, not elsewhere classified] Onset: 8 Resolved: 8 02-01-2019 Episodic Coronary atherosclerosis and other heart disease (20 sources) Old myocardial infarction; Translations: [Old myocardial infarction] Onset: 8 Chronic Deficiency and other anemia (14 sources) Normocytic anemia 10-07-2022 Episodic Deficiency and other anemia (13 sources) Anemia; Translations: [Anemia, unspecified] 06-22-2023 Episodic Diabetes mellitus with complications (14 sources) Type 2 diabetes mellitus in obese; Translations: [Type 2 diabetes mellitus with other specified complication] Onset: 5 02-01-2019 Chronic Diabetes mellitus without complication (20 sources) Type 2 diabetes mellitus; Translations: [Diabetes mellitus] Onset: 8 12-12-2020 Chronic Diseases of white blood cells (1 source) Leukocytosis; Translations: [Elevated white blood cell count, unspecified] Onset: 8 05-27-2018 Chronic Disorders of lipid metabolism (20 sources) Hyperlipidemia; Translations: [Hyperlipidemia, unspecified] Onset: 8 Resolved: 8 05-02-2018 Chronic E Codes: Fall (2 sources) Unspecified fall, initial encounter; Translations: [Unspecified fall, initial encounter] Onset: 5 Episodic E Codes: Fall (6 sources) Fall in home 02-21-2025 Esophageal disorders (20 sources) Gastroesophageal reflux disease; Translations: [Gastro-esophageal reflux disease without esophagitis] 05-05-2018 Chronic Essential hypertension (20 sources) Hypertensive disorder; Translations: [Essential hypertension] Onset: 8 06-20-2019 Chronic Fluid and electrolyte disorders (7 sources) Hypervolemia; Translations: [Fluid overload, unspecified] Onset: 8 Resolved: 8 05-18-2018 Episodic Genitourinary symptoms and ill-defined conditions (20 sources) Urge incontinence of urine 04-07-2021 Chronic Hyperplasia of prostate (20 sources) Benign prostatic hypertrophy with outflow obstruction 04-07-2021 Chronic Intestinal infection (20 sources) Clostridium difficile diarrhea 01-03-2021 Episodic Malaise and fatigue (8 sources) Fatigue; Translations: [Other fatigue] 04-07-2023 Episodic Mood disorders (14 sources) Depressed mood 10-11-2022 Chronic Nonspecific chest pain (12 sources) Chest pain; Translations: [Chest pain, unspecified] 02-01-2019 Episodic Nutritional deficiencies (20 sources) Vitamin D deficiency; Translations: [Vitamin D deficiency, unspecified] Onset: 5 12-14-2023 Chronic Open wounds of extremities (1 source) Laceration of upper arm; Translations: [Laceration without foreign body of left upper arm, initial encounter] Onset: 4 Episodic Open wounds of head; neck; and trunk (20 sources) Scalp laceration 05-10-2020 Episodic Osteoarthritis (20 sources) Osteoarthritis 05-05-2018 Chronic Other and ill-defined heart disease (12 sources) Left ventricular cardiac dysfunction; Translations: [Heart disease, unspecified] 02-01-2019 Chronic Other circulatory disease (6 sources) Low blood pressure 02-21-2025 Episodic Other circulatory disease (6 sources) Carotid bruit; Translations: [Other specified symptoms and signs involving the circulatory and respiratory systems] 03-28-2025 Episodic Other connective tissue disease (1 source) Musculoskeletal symptom; Translations: [Other symptoms and signs involving the musculoskeletal system] Episodic Other connective tissue disease (9 sources) Spasm 08-11-2024 Episodic Other diseases of kidney and ureters (20 sources) Renal impairment 01-13-2021 Episodic Other ear and sense organ disorders (20 sources) Bilateral hearing loss 05-02-2018 Chronic Other ear and sense organ disorders (20 sources) Otitis externa 04-29-2021 Chronic Other gastrointestinal disorders (7 sources) Diarrhea 12-26-2020 Episodic Other hereditary and degenerative nervous system conditions (20 sources) Impaired cognition; Translations: [Mild cognitive impairment, so stated] 11-26-2022 Chronic Other hereditary and degenerative nervous system conditions (3 sources) Mild cognitive impairment, so stated; Translations: [Mild cognitive impairment, so stated] 11-26-2022 Chronic Other hereditary and degenerative nervous system conditions (18 sources) Restless legs; Translations: [Restless legs syndrome] 11-29-2024 Chronic Other infections; including parasitic (14 sources) History of bacterial infection 10-07-2022 Episodic Other injuries and conditions due to external causes (20 sources) Closed injury of head 05-10-2020 Episodic Other injuries and conditions due to external causes (14 sources) Abrasion 10-07-2022 Episodic Other nervous system disorders (20 sources) Polyneuropathy; Translations: [Polyneuropathy, unspecified] 11-26-2022 Chronic Other nervous system disorders (3 sources) Polyneuropathy, unspecified; Translations: [Unspecified hereditary and idiopathic peripheral neuropathy] 11-26-2022 Chronic Other nervous system disorders (20 sources) Abnormal gait; Translations: [Unspecified abnormalities of gait and mobility] 12-15-2021 Episodic Other nervous system disorders (1 source) Unsteadiness present; Translations: [Unsteadiness on feet] Episodic Other nutritional; endocrine; and metabolic disorders (7 sources) Hypomagnesemia; Translations: [Hypomagnesemia] Onset: 5 02-21-2025 Chronic Other nutritional; endocrine; and metabolic disorders (1 source) Hypomagnesemia; Translations: [Hypomagnesemia] Onset: Chronic Other nutritional; endocrine; and metabolic disorders (20 sources) Loss of appetite 12-12-2020 Episodic Other skin disorders (12 sources) Cutaneous horn 12-14-2023 Episodic Other upper respiratory disease (20 sources) Nasal congestion 05-18-2017 Episodic Other upper respiratory infections (7 sources) Acute sinusitis 04-29-2021 Episodic Parkinson`s disease (15 sources) Parkinson's disease; Translations: [Paralysis agitans] 11-26-2022 Chronic Parkinson`s disease (2 sources) Parkinson`s disease; Translations: [Parkinson's disease without dyskinesia, without mention of fluctuations] Onset: 4 [place]id[place]-; endo-; and myocarditis; cardiomyopathy (except that caused by tuberculosis or sexually transmitted disease) (14 sources) Ejection murmur 10-11-2022 Chronic Poisoning by other medications and drugs (2 sources) Poisoning by unspecified drugs, medicaments and biological substances, accidental (unintentional), initial encounter; Translations: [Poisoning by unspecified drugs, medicaments and biological substances, accidental (unintentional), initial encounter] Onset: Episodic Residual codes; unclassified (14 sources) Peripheral edema 10-11-2022 Episodic Residual codes; unclassified (12 sources) Not for resuscitation 06-22-2023 Episodic Skin and subcutaneous tissue infections (16 sources) Infection of finger 04-16-2022 Episodic Superficial injury; contusion (10 sources) Contusion of right foot; Translations: [Contusion of right foot, initial encounter] 11-16-2024 Episodic Unclassified (18 sources) Parkinsonism; Translations: [Parkinsonism] 04-07-2023 Chronic Unclassified (14 sources) Patient encounter status 04-17-2020 Unclassified (12 sources) Mental state finding 06-22-2023 Unclassified (4 sources) Accidental overdose 07-02-2025 Unclassified (4 sources) Pain of right shoulder region 07-04-2025 Past or Other Problems Problem Classification Problem Date Documented Da te Episodic/Chronic Administrative/social admission (1 source) Discharge status; Translations: [Other problems related to medical facilities and other health care] Onset: 05-14-2018 05-25-2018 Episodic Coronary atherosclerosis and other heart disease (1 source) Presence of aortocoronary bypass graft; Translations: [Aortocoronary bypass status] Onset: 04-20-2018 03-02-2023 Episodic Deficiency and other anemia (2 sources) Anemia, unspecified; Translations: [Anemia, unspecified] Onset: 08-11-2024 Episodic Genitourinary symptoms and ill-defined conditions (1 source) Retention of urine; Translations: [Retention of urine, unspecified] Onset: 05-10-2018 05-26-2018 Episodic Heart valve disorders (12 sources) Heart murmur; Translations: [Cardiac murmur, unspecified] Onset: 04-02-2025 02-16-2025 Episodic Nutritional deficiencies (8 sources) Cobalamin deficiency; Translations: [Deficiency of other specified B group vitamins] Onset: 02-21-2025 02-21-2025 Episodic Other circulatory disease (1 source) Other specified symptoms and signs involving the circulatory and respiratory systems; Translations: [Other specified symptoms and signs involving the circulatory and respiratory systems] Onset: 04-16-2025 Episodic Other endocrine disorders (2 sources) Endocrine disorder, unspecified; Translations: [Endocrine disorder, unspecified] Onset: 02-21-2025 Episodic Other nervous system disorders (1 source) Acute postoperative pain; Translations: [Other acute postprocedural pain] Onset: 05-14-2018 Resolved: 05-18-2018 05-20-2018 Episodic Other screening for suspected conditions (not mental disorders or infectious disease) (8 sources) Hormone increase; Translations: [Encounter for screening for lipoid disorders] Onset: 08-11-2024 02-21-2025 Episodic Residual codes; unclassified (1 source) Transition of care; Translations: [Other specified health status] Onset: 05-17-2018 05-27-2018 Episodic Residual codes; unclassified (2 sources) Edema, unspecified; Translations: [Edema, unspecified] Onset: 08-11-2024 Episodic Results Test Name Value Interpretation Reference Range Facility Potassiumon 07-24-2025 Potassium [Moles/Vol] 4.9 mmol/L Normal 3.3-5.1 [facility] Comment on above: Result Comment: Hemo lysis present, Results??could be affected. ?? Performed By: #### L [id number] #### [facility] [address] [place], [place], [id number] Potassiumon 07-16-2025 Potassium [Moles/Vol] 5.2 mmol/L High 3.3-5.1 [facility] Comment on above: Performed By: #### L [id number] #### [facility] [address] [place], [place], [id number] .GFRon 10-23-2025 Estimated Glomerular Filtration Rate 35 ml/min/1.73sqm Normal [facility] Comment on above: Result Comment: Stages of Chronic Kidney Disease (CKD) Stage Description eGFR(ml/min/1.73 sq.m.) CKD 1 Normal kidney function or >=90 normal kindney function with possible kidney damage (ex. Proteinuria) CKD 2 Kidney damage with mild loss 60-89 of kidney function CKD 3a Mild to moderate loss of kidney 45-59 function CKD 3b Moderate to severe loss of 30-44 of kindey function CKD 4 Severe loss of kidney function 15-29 CKD 5 Kidney failure <15 Note: (go live 2024) the eGFR calculation was updated to the 2020 CKD-EPI creatinine equation without a race factor to calculate the eGFR results. Performed By: #### C KYUNG MENON, MG, ADIFF, GFR, CMP, ANEU #### [address] [address] BMPon 07-12-2025 BUN/Creatinine Ratio 17 ratio Normal 7-27 [facility] Comment on above: Order Comment: maya rosa Performed By: #### C KYUNG MENON, MG, ADIFF, GFR, CMP, ANEU #### [address] [address] Calcium [Mass/Vol] 8.5 mg/dL Normal 8.4-10.2 [facility] Comment on above: Order Comment: maya rosa Performed By: #### KYUNG SANTOS, MG, ADIFF, GFR, CMP, ANEU #### [address] [address] Chloride [Moles/Vol] 108 mmol/L High 98-107 [facility] Comment on above: Order Comment: maya rosa Performed By: #### KYUNG SANTOS, MG, ADIFF, GFR, CMP, ANEU #### [address] [address] CO2 [Moles/Vol] 26 mmol/L Normal 23-31 [facility] Comment on above: Order Comment: maya rosa Performed By: #### C KYUNG MENON, MG, ADIFF, GFR, CMP, ANEU #### [address] [address] Creatinine [Mass/Vol] 1.86 mg/dL High 0.67-1.17 [facility] Comment on above: Order Comment: hemmaya ruiz Performed By: #### C LYNSEY, W, MG, ADIFF, GFR, CMP, ANEU #### [address] [address] Electrolyte Balance 6.0 mEq/L Normal 4.0-15.0 [facility] Comment on above: Order Comment: hemmaya ruiz Performed By: #### C LYNSEY, KYUNG, MG, ADIFF, GFR, CMP, ANEU #### [address] [address] Glucose [Mass/Vol] 162 mg/dL High 83-110 [facility] Comment on above: Order Comment: hemmaay ruiz Performed By: #### C KYUNG MENON, MG, ADIFF, GFR, CMP, ANEU #### [address] [address] Potassium [Moles/Vol] 5.2 mmol/L High 3.5-5.1 [facility] Comment on above: Order Comment: hemmaya ruiz Performed By: #### C KYUNG MENON, MG, ADIFF, GFR, CMP, ANEU #### [address] [address] Sodium [Moles/Vol] 140 mmol/L Normal 136-145 [facility] Comment on above: Order Comment: hemmaya ruiz Performed By: #### C KYUNG MEONN, MG, ADIFF, GFR, CMP, ANEU #### [address] [address] Urea nitrogen [Mass/Vol] 31 mg/dL High 7-18 [facility] Comment on above: Order Comment: hemmaya ruiz Performed By: #### C KYUNG MENON, MG, ADIFF, GFR, CMP, ANEU #### [address] [address] LABORATORYOrdered By: SYSTEM SYSTEM on 07-12-2025 Calcium [Mass/Vol] 8.5 mg/dL Normal 8.4 - 10. 2 mg/dL AO ADM SS Chloride [Moles/Vol] 108 mmol/L High 98 - 10 7 mmol/L AO ADM SS CO2 [Moles/Vol] 26 mmol/L Normal 23 - 31 mmol/L AO ADM SS Creatinine [Mass/Vol] 1.86 mg/dL High 0.67 - 1.17 mg/dL AO ADM SS Electrolyte Balance 6.0 mEq/L Normal 4.0 - 15 .0 mEq/L AO ADM SS GLOMERULAR FILTRATION RATE/1.73 SQ M.PREDICTED:ARVRAT:PT:SE R/PLAS/BLD:QN:CREATININE -BASED FORMULA (CKD-EPI 2020) 35 ml/min/1.73sqm Invalid Interpretation Code AO Chemistry S Comment on above: Interpretive Data: Stages of Chronic Kidney Disease (CKD) Stage Description eGFR(ml/min/1.73 sq.m.) CKD 1 Normal kidney function or >=90 normal kindney function with possible kidney damage (ex. Proteinuria) CKD 2 Kidney damage with mild loss 60-89 of kidney function CKD 3a Mild to moderate loss of kidney 45-59 function CKD 3b Moderate to severe loss of 30-44 of kindey function CKD 4 Severe loss of kidney function 15-29 CKD 5 Kidney failure <15 Note: (go live 2024) the eGFR calculation was updated to the 2020 CKD-EPI creatinine equation without a race factor to calculate the eGFR results. Glucose [Mass/Vol] 162 mg/dL High 83 - 110 mg/dL AO ADM SS Potassium [Moles/Vol] 5.2 mmol/L High 3.5 - 5.1 mmol/L AO ADM SS Sodium [Moles/Vol] 140 mmol/L Normal 136 - 145 mmol/L AO ADM SS Urea nitrogen [Mass/Vol] 31 mg/dL High 7 - 18 mg/dL AO ADM SS Urea nitrogen/Creatinine [Mass ratio] 17 ratio Normal 7 - 27 ratio AO ADM SS Potassiumon 07-11-2025 Potassium [Moles/Vol] 6.0 mmol/L Invalid Interpretation Code 3.3-5.1 [facility] Comment on above: Result Comment: Crit ical Result(s) Called MSHRIVER at: 1832 by: BRIDGETTE??Results read back by same. Performed By: #### L [id number] #### [facility] [address] [place], [address] XR RIBS 2 VIEWS RIGHTon 10-1 XR RIBS 2 VIEWS RIGHT ORIGINAL EXAMINATION: 2 XRAY VIEWS OF THE RIGHT RIBS1 4:03 pm COMPARISON: None HISTORY: ORDERING SYSTEM PROVIDED HISTORY: Reason for Exam: right ribs 3-5 pain after fall, rule out fracture rt rib pain. multiple recent falls., FINDINGS: Mild deformity of the anterior end of the right 8th rib without cortical disruption is favored to be nonacute. No acute displaced rib fracture is seen, nondisplaced fractures may not always be evident on initial radiographs. There is some atelectasis in the left lung base. No pneumothorax. IMPRESSION: Left anterior 8th rib fracture is favored to be nonacute, correlate with point tenderness. Interpreted by: Dion Beatty MD Preliminary Report By: Dion Beatty MD Electronically signed By Dion Beatty MD Dictated Date: 07/06/2025 11:14:15 AM Prelim Date: 07/06/2025 11:17:47 AM Sign Date: 07/06/2025 11:17:47 AM Ordering Provider: JLUIS NICHOLE RP [facility] XR SHOULDER MINIMUM 2 VIEWS RIGHTon 07-06-2025 XR SHOULDER MINIMUM 2 VIEWS RIGHT ORIGINAL EXAMINATION: XR left shoulder three views 07/04/2025 4:04 pm COMPARISON: 05/05/2020 HISTORY: ORDERING SYSTEM PROVIDED HISTORY: Reason for Exam: right shoulder pain after fall, FINDINGS: No acute fracture, dislocation, lytic process or periosteal reaction is seen in the glenohumeral and AC joints. 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 No erosive type of arthritis. No periarticular soft tissue calcification. Left-sided ribs are evaluated separately. IMPRESSION: No acute skeletal abnormality is seen. Severe osteoarthritis. Interpreted by: Dion Beatty MD Preliminary Report By: Dion Beatty MD Electronically signed By Dion Beatty MD Dictated Date: 07/06/2025 11:17:51 AM Prelim Date: 07/06/2025 11:19:30 AM Sign Date: 07/06/2025 11:19:30 AM Ordering Provider: JLUIS NICHOLE RP Normal [facility] CT HEAD OR BRAIN W/O CONTRAS Ton 07-05-2025 CT HEAD OR BRAIN W/O CONTRAST ORIGINAL EXAMINATION: CT HEAD TECHNIQUE: Axial CT images from skull base to vertex without IV contrast. This exam was performed according to our departmental dose optimization program, and includes the following measures where applicable: automated exposure control, adjustment of the mAs and/or kVp according to patient size and/or exam, and an iterative reconstruction algorithm. COMPARISON: CT head 05/05/2020 HISTORY: ORDERING SYSTEM PROVIDED HISTORY: Reason for Exam: fall and confusion, rule out CVA, intracranial bleed FINDINGS: Parenchyma: No acute intracranial hemorrhage, midline shift, mass effect or acute ischemic infarct is demonstrated. The pizano-white matter junctions are preserved. No space occupying intra-axial masses or extra-axial fluid collections are seen. Moderate parenchymal volume loss is noted, greater on the left side. Scattered areas of decreased attenuation are identified in the subcortical, periventricular, and deep white matter reflecting mild to moderate chronic microvascular white matter ischemic disease. Ventricles: Mildly prominent ventricles which commensurate with mild parenchymal volume loss and patient's age. Vessels: Mild calcification of the intracranial arteries. Orbits: Bilateral pseudophakia. Calvarium: Unremarkable. Paranasal sinuses: Clear. Mastoid sinuses: Small left mastoid effusion. IMPRESSION: No acute intracranial pathology. I have personally reviewed the images of this examination and agree with the resident's findings and interpretation. Interpreted by: Layne Nayak MD Preliminary Report By: Teresa Kowalski Electronically signed By Layne Nayak MD Dictated Date: 07/05/2025 3:54:19 PM Prelim Date: 07/05/2025 4:57:02 PM Sign Date: 07/05/2025 4:57:02 PM Ordering Provider: JLUIS NICHOLE RP Normal [facility] 07-05-2025 Potassium [Moles/Vol] 5.3 mmol/L High 3.5-5.1 [facility] Comment on above: Performed By: #### C BC, W, MG, ADIFF, GFR, CMP, ANEU #### [address] [address] LABORATORYOrdered By: SYSTEM SYSTEM on 07-05-2025 Potassium [Moles/Vol] 5.3 mmol/L High 3.5 - 5.1 mmol/L AO ADM SS .Auto Diffon 07-04-2025 Basophil, Absolute 0.0 10 3/mcL Normal 0.0-0.3 [facility] Comment on above: Performed By: #### C KYUNG MENON, MG, ADIFF, GFR, CMP, ANEU #### [address] [address] Basophils/100 WBC (Bld) 0.7 % Normal 0.0-2.5 [facility] Comment on above: Performed By: #### C KYUNG MENON, MG, ADIFF, GFR, CMP, ANEU #### [address] [address] Eosinophil, Absolute 0.1 10 3/mcL Normal 0.0-0.7 [facility] Comment on above: Performed By: #### C KYUNG MENON, MG, ADIFF, GFR, CMP, ANEU #### [address] [address] Eosinophils/100 WBC (Bld) 1.8 % Normal 0.0-6.0 [facility] Comment on above: Performed By: #### C KYUNG MENON, MG, ADIFF, GFR, CMP, ANEU #### [address] [address] Lymphocyte, Absolute 1.5 10 3/mcL Normal 0.9-4.3 [facility] Comment on above: Performed By: #### C KYUNG MENON, MG, ADIFF, GFR, CMP, ANEU #### [address] [address] Lymphocytes/100 WBC (Bld) 20.8 % Normal 20.0-40.0 [facility] Comment on above: Performed By: #### C KYUNG MENON, MG, ADIFF, GFR, CMP, ANEU #### [address] [address] Monocyte, Absolute 0.5 10 3/mcL Normal 0.1-1.4 [facility] Comment on above: Performed By: #### C LYNSEY, W, MG, ADIFF, GFR, CMP, ANEU #### [address] [address] Monocytes/100 WBC (Bld) 7.7 % Normal 2.0-13.0 [facility] Comment on above: Performed By: #### C LYNSEY, MDW, MG, ADIFF, GFR, CMP, ANEU #### [address] [address] Neutrophils/100 WBC (Bld) 69.0 % Normal 50.0-75.0 [facility] Comment on above: Performed By: #### C LYNSEY, KYUNG, MG, ADIFF, GFR, CMP, ANEU #### [address] [address] .GFRon 07-04-2025 Estimated Glomerular Filtration Rate 36 ml/min/1.73sqm Normal [facility] Comment on above: Result Comment: Stages of Chronic Kidney Disease (CKD) Stage Description eGFR(ml/min/1.73 sq.m.) CKD 1 Normal kidney function or >=90 normal kindney function with possible kidney damage (ex. Proteinuria) CKD 2 Kidney damage with mild loss 60-89 of kidney function CKD 3a Mild to moderate loss of kidney 45-59 function CKD 3b Moderate to severe loss of 30-44 of kindey function CKD 4 Severe loss of kidney function 15-29 CKD 5 Kidney failure <15 Note: (go live 2024) the eGFR calculation was updated to the 2020 CKD-EPI creatinine equation without a race factor to calculate the eGFR results. Performed By: #### C LYNSEY, W, MG, ADIFF, GFR, CMP, ANEU #### [place] [address] [place], [place] [address] .NEUABSon 07-04-2025 Neutrophil, Absolute 4.9 10 3/mcL Normal 2.3-8.1 [facility] Comment on above: Performed By: #### C BC, MDW, MG, ADIFF, GFR, CMP, ANEU #### [place] [address] CBCon 07-04-2025 Erythrocyte distribution width (RBC) [Ratio] 16.2 % High 11.5-15.5 [facility] Comment on above: Performed By: #### C KYUNG MENON, MG, ADIFF, GFR, CMP, ANEU #### [place] [address] Hematocrit (Bld) [Volume fraction] 33.6 % Low 40.0-52.0 [facility] Comment on above: Performed By: #### C KYUNG MENON, MG, ADIFF, GFR, CMP, ANEU #### [place] [address] Hgb 11.1 G/dL Low 13.0-17.5 [facility] Comment on above: Performed By: #### C KYUNG MENON, MG, ADIFF, GFR, CMP, ANEU #### [place] [address] MCH (RBC) [Entitic mass] 31.1 pg Normal 27.0-33.0 [facility] Comment on above: Performed By: #### C KYUNG MENON, MG, ADIFF, GFR, CMP, ANEU #### [place] [address] MCHC 32.9 G/dL Normal 32.0-36.0 [facility] Comment on above: Performed By: #### C KYUNG MENON, MG, ADIFF, GFR, CMP, ANEU #### [place] [address] MCV (RBC) [Entitic vol] 94.6 fL Normal 81.0-100.0 [facility] Comment on above: Performed By: #### C KYUNG MENON, MG, ADIFF, GFR, CMP, ANEU #### [place] [address] Platelet 107 10 3/mcL Low 150-450 [facility] Comment on above: Performed By: #### C KYUNG MENON, MG, ADIFF, GFR, CMP, ANEU #### [address] [address] Platelet mean volume (Bld) [Entitic vol] 8.5 fL Normal 6.4-10.5 [facility] Comment on above: Performed By: #### C KYUNG MENON, MG, ADIFF, GFR, CMP, ANEU #### [address] [address] RBC 3.55 10 6/mcL Low 4.50-6.00 [facility] Comment on above: Performed By: #### C KYUNG MENON, MG, ADIFF, GFR, CMP, ANEU #### [address] [address] WBC 7.1 10 3/mcL Normal 4.5-10.8 [facility] Comment on above: Performed By: #### C KYUNG MENON, MG, ADIFF, GFR, CMP, ANEU #### [address] [address] CMPon 07-04-2025 Albumin Level 3.7 G/dL Normal 3.4-4.8 [facility] Comment on above: Performed By: #### C KYUNG MENON, MG, ADIFF, GFR, CMP, ANEU #### [address] [address] Albumin/Globulin [Mass ratio] 1.2 {ratio} Normal 1.1-2.5 [facility] Comment on above: Performed By: #### C KYUNG MENON, MG, ADIFF, GFR, CMP, ANEU #### [address] [address] ALP [Catalytic activity/Vol] 108 U/L Normal 40-135 [facility] Comment on above: Performed By: #### C KYUNG MENON, MG, ADIFF, GFR, CMP, ANEU #### [address] [address] ALT/SGPT <6 Low 16-63 [facility] Comment on above: Performed By: #### C LYNSEY, W, MG, ADIFF, GFR, CMP, ANEU #### [place] [address] AST [Catalytic activity/Vol] 12 U/L Normal 10-40 [facility] Comment on above: Performed By: #### C LYNSEY, W, MG, ADIFF, GFR, CMP, ANEU #### [place] [address] Bili Total 0.7 mg/dL Normal 0.2-1.0 [facility] Comment on above: Result Comment: Use of this assay is not recommended for patients undergoing treatment with eltrombopag due to the potential for falsely elevated results. Performed By: #### C LYNSEY, KYUNG, MG, ADIFF, GFR, CMP, ANEU #### [place] [address] BUN/Creatinine Ratio 17 ratio Normal 7-27 [facility] Comment on above: Performed By: #### C LYNSEY, KYUNG, MG, ADIFF, GFR, CMP, ANEU #### [place] [id number] Calcium [Mass/Vol] 9.1 mg/dL Normal 8.4-10.2 [facility] Comment on above: Performed By: #### C LNYSEY, KYUNG, MG, ADIFF, GFR, CMP, ANEU #### [place] [id number] Chloride [Moles/Vol] 110 mmol/L High 98-107 [facility] Comment on above: Performed By: #### C LYNSEY, KYUNG, MG, ADIFF, GFR, CMP, ANEU #### [place] [id number] CO2 [Moles/Vol] 28 mmol/L Normal 23-31 [facility] Comment on above: Performed By: #### C LYNSEY, W, MG, ADIFF, GFR, CMP, ANEU #### [place] [address] [place], [place] [address] Creatinine [Mass/Vol] 1.82 mg/dL High 0.67-1.17 [facility] Comment on above: Performed By: #### C LYNSEY, KYUNG, MG, ADIFF, GFR, CMP, ANEU #### [address] [address] Electrolyte Balance 5.0 mEq/L Normal 4.0-15.0 [facility] Comment on above: Performed By: #### C LYNSEY, KYUNG, MG, ADIFF, GFR, CMP, ANEU #### [address] [address] Globulin 3.1 G/dL Normal 2.7-4.4 [facility] Comment on above: Performed By: #### C LYNSEY, KYUNG, MG, ADIFF, GFR, CMP, ANEU #### [address] [address] Glucose [Mass/Vol] 68 mg/dL Low 83-110 [facility] Comment on above: Performed By: #### C KYUNG MENON, MG, ADIFF, GFR, CMP, ANEU #### [address] [address] Potassium [Moles/Vol] 5.4 mmol/L High 3.5-5.1 [facility] Comment on above: Performed By: #### C LYNSEY, KYUNG, MG, ADIFF, GFR, CMP, ANEU #### [address] [address] Sodium [Moles/Vol] 143 mmol/L Normal 136-145 [facility] Comment on above: Performed By: #### C LYNSEY, KYUNG, MG, ADIFF, GFR, CMP, ANEU #### [address] [address] Total Protein 6.8 G/dL Normal 6.4-8.2 [facility] Comment on above: Performed By: #### C LYNSEY, KYUNG, MG, ADIFF, GFR, CMP, ANEU #### [address] [address] Urea nitrogen [Mass/Vol] 31 mg/dL High 7-18 [facility] Comment on above: Performed By: #### C BC, MDW, MG, ADIFF, GFR, CMP, ANEU #### [facility] [place] [address] [place], [place] [address] LABORATORYOrdered By: SYSTEM SYSTEM on 07-04-2025 Albumin BCP dye [Mass/Vol] 3.7 G/dL Normal 3.4 - 4.8 G/dL AO ADM SS Albumin/Globulin [Mass ratio] 1.2 {ratio} Normal 1.1 - 2.5 ratio AO ADM SS ALP [Catalytic activity/Vol] 108 U/L Normal 40 - 135 U/L AO ADM SS ALT With P-5'-P [Catalytic activity/Vol] U/L 1 Low 16 - 63 U/L AO ADM SS AST With P-5'-P [Catalytic activity/Vol] 12 U/L Normal 10 - 40 U/L AO ADM SS Basophils (Bld) [#/Vol] 0.0 103/mcL Normal 0.0 - 0.3 10^3/mcL AO Workflow SS Basophils/100 WBC (Bld) 0.7 % Normal 0.0 - 2.5 % AO Workflow SS Bilirubin [Mass/Vol] 0.7 mg/dL Normal 0.2 - 1 .0 mg/dL AO ADM SS Comment on above: Interpretive Data: U se of this assay is not recommended for patients undergoing treatment with eltrombopag due to the potential for falsely elevated results. Calcium [Mass/Vol] 9.1 mg/dL Normal 8.4 - 10. 2 mg/dL AO ADM SS Chloride [Moles/Vol] 110 mmol/L High 98 - 10 7 mmol/L AO ADM SS CO2 [Moles/Vol] 28 mmol/L Normal 23 - 31 mmol/L AO ADM SS Creatinine [Mass/Vol] 1.82 mg/dL High 0.67 - 1.17 mg/dL AO ADM SS Electrolyte Balance 5.0 mEq/L Normal 4.0 - 15 .0 mEq/L AO ADM SS Eosinophil, Absolute 0.1 103/mcL Normal 0.0 - 0 .7 10^3/mcL AO Workflow SS Eosinophils/100 WBC (Bld) 1.8 % Normal 0.0 - 6.0 % AO Workflow SS Erythrocyte distribution width (RBC) [Ratio] 16.2 % High 11.5 - 15.5 % AO Workflow SS Globulin 3.1 G/dL Normal 2.7 - 4.4 G/dL AO ADM SS GLOMERULAR FILTRATION RATE/1.73 SQ M.PREDICTED:ARVRAT:PT:SE R/PLAS/BLD:QN:CREATININE -BASED FORMULA (CKD-EPI 2020) 36 ml/min/1.73sqm Invalid Interpretation Code AO Chemistry S Comment on above: Interpretive Data: Stages of Chronic Kidney Disease (CKD) Stage Description eGFR(ml/min/1.73 sq.m.) CKD 1 Normal kidney function or >=90 normal kindney function with possible kidney damage (ex. Proteinuria) CKD 2 Kidney damage with mild loss 60-89 of kidney function CKD 3a Mild to moderate loss of kidney 45-59 function CKD 3b Moderate to severe loss of 30-44 of kindey function CKD 4 Severe loss of kidney function 15-29 CKD 5 Kidney failure <15 Note: (go live 2024) the eGFR calculation was updated to the 2020 CKD-EPI creatinine equation without a race factor to calculate the eGFR results. Glucose [Mass/Vol] 68 mg/dL Low 83 - 110 mg/dL AO ADM SS Hematocrit (Bld) [Volume fraction] 33.6 % Low 40.0 - 52.0 % AO Workflow SS Hemoglobin (Bld) [Mass/Vol] 11.1 G/dL Low 13.0 - 17.5 G/dL AO Workflow SS Lymphocytes (Bld) [#/Vol] 1.5 103/mcL Normal 0.9 - 4.3 10^3/mcL AO Workflow SS Lymphocytes/100 WBC (Bld) 20.8 % Normal 20.0 - 40.0 % AO Workflow SS MCH (RBC) [Entitic mass] 31.1 pg Normal 27. 0 - 33.0 pg AO Workflow SS MCHC 32.9 G/dL Normal 32.0 - 36.0 G/dL AO Workflow SS MCV (RBC) [Entitic vol] 94.6 fL Normal 81.0 - 100.0 fL AO Workflow SS Monocytes (Bld) [#/Vol] 0.5 103/mcL Normal 0.1 - 1.4 10^3/mcL AO Workflow SS Monocytes/100 WBC (Bld) 7.7 % Normal 2.0 - 13.0 % AO Workflow SS Natriuretic peptide.B prohormone N-Terminal [Mass/Vol] 1302 pg/mL High 0 - 450 pg/mL AO ADM SS Comment on above: Interpretive Data: N T-proBNP results of less than 300 pg/mL effectively rules out acute congestive heart failure with 99% negative predictive value. Neutrophils (Bld) [#/Vol] 4.9 103/mcL Normal 2.3 - 8.1 10^3/mcL AO Workflow SS Neutrophils/100 WBC (Bld) 69.0 % Normal 50.0 - 75.0 % AO Workflow SS Platelet mean volume (Bld) [Entitic vol] 8.5 fL Normal 6.4 - 10.5 fL AO Workflow SS Platelets (Bld) [#/Vol] 107 103/mcL Low 150 - 450 10^3/mcL AO Workflow SS Potassium [Moles/Vol] 5.4 mmol/L High 3.5 - 5.1 mmol/L AO ADM SS Protein [Mass/Vol] 6.8 G/dL Normal 6.4 - 8.2 G/dL AO ADM SS RBC (Bld) [#/Vol] 3.55 106/mcL Low 4.50 - 6.00 10^6/mcL AO Workflow SS Sodium [Moles/Vol] 143 mmol/L Normal 136 - 145 mmol/L AO ADM SS Urea nitrogen [Mass/Vol] 31 mg/dL High 7 - 18 mg/dL AO ADM SS Urea nitrogen/Creatinine [Mass ratio] 17 ratio Normal 7 - 27 ratio AO ADM SS WBC (Bld) [#/Vol] 7.1 103/mcL Normal 4.5 - 10.8 10^3/mcL AO Workflow SS No Panel Informationon 07-04 Culture Urine No growth at 48 hours. [facility] Work Phone: PBNPon 07-04-2025 Natriuretic peptide B (Bld) [Mass/Vol] 1302 pg/mL High 0-450 [facility] Comment on above: Result Comment: NT-p roBNP results of less than 300 pg/mL effectively rules out acute congestive heart failure with 99% negative predictive value. Performed By: #### C BC, MDW, MG, ADIFF, GFR, CMP, ANEU #### [facility] [address] [place], [place] [address] XR CHEST 2 VIEWSon 5 XR CHEST 2 VIEWS ORIGINAL EXAMINATION: TWO XRAY VIEWS OF THE CHEST TECHNIQUE: CHEST AP/PA and LATERAL COMPARISON: CXR from May 05, 2020. HISTORY: ORDERING SYSTEM PROVIDED HISTORY: Reason for Exam: confusion, fall, rule out pneumonia FINDINGS: The head partially obscures the lung apices on frontal view. Arm positioning partially obscures the lungs on lateral view. Sternotomy wires, mediastinal vascular clips, and epicardial wires noted. Atherosclerotic and tortuous aorta. Moderate cardiomegaly. The mediastinal silhouette is stably enlarged. No vascular congestion. The lungs are hyperinflated. There is mild left hemidiaphragm elevation. Lateral right lower lung hazy opacification. Costophrenic angles are sharp. No pleural effusion or visible pneumothorax. Degenerative changes of the visualized shoulders and spine. IMPRESSION: Lateral right lower lung hazy opacification may represent infectious process. Recommend correlation with patient's symptoms and radiographic follow-up to resolution. I have personally reviewed the images of this examination and agree with the resident's findings and interpretation. Interpreted by: Jairo Robetrson DO Preliminary Report By: Liban Munguia Electronically signed By Jairo Robertson DO Dictated Date: 07/04/2025 4:12:22 PM Prelim Date: 07/04/2025 4:38:56 PM Sign Date: 07/04/2025 4:38:56 PM Ordering Provider: JLUIS NICHOLE RP Normal [facility] XR HUMERUS MINIMUM [facility] XR HUMERUS MINIMUM 2 VIEWS RIGHT ORIGINAL EXAMINATION: TWO XRAY VIEWS OF THE RIGHT HUMERUS COMPARISON: Left shoulder radiograph 05/05/2020 HISTORY: ORDERING SYSTEM PROVIDED HISTORY: Reason for Exam: proximal anterior ecchymosis and pain after fall, rule out fracture FINDINGS: No acute fracture or dislocation. Bony alignment is within normal limits. Degenerative changes the visualized shoulder and elbow joints. The soft tissues are unremarkable. No radiopaque foreign body. IMPRESSION: No acute fracture or dislocation. I have personally reviewed the images and agree with the resident's findings and interpretation. Interpreted by: Liliana Xiong Preliminary Report By: Santos Small Electronically signed By Liliana Xiong Dictated Date: 07/04/2025 4:20:42 PM Prelim Date: 07/04/2025 4:23:12 PM Sign Date: 07/04/2025 5:10:20 PM Ordering Provider: JLUIS NICHOLE RP Normal [facility] Neurology Visit Reporton Neurology Visit Report [facility] [address], [address] [place] [address] OFFICE VISIT Date of Service: 06/11/25 MR#: [id number] Acct: [id number] Name: EKATERINA RANDHAWA Rep #: [id number] : 1940 Provider: Dr. Braxton garg MD Age/Sex: 85/M Location: [facility] [place]. Status: Signed HPI HPI Chief Complaint: Details: Interim History: Ekaterina returns for follow-up visit. He has a history of hypertension, diabetes mellitus, benign prostatic hypertrophy status post TURP, myocardial infarction status post CABG in 2017, hyperlipidemia and stage IV renal insufficiency. Since 2019, he has had some gait difficulty. His gait has become short stepped and shuffling. He uses a cane. He has had difficulty arising from his bed in the morning and and arising from a chair. He denied having numbness or focal weakness however he reported having fatigue and vague generalized weakness. He had a right total knee replacement. He denied having pain in the lower extremities, neck or lower back. Since 2021, he has had a bilateral hand tremor that is present at rest. His tremor has subsided since increasing his dose of carbidopa/levodopa 25/100 to 2 tablets 3 times daily in 2022. He experiences occasional diplopia. He has had nystagmus. He has had urinary incontinence since at least 2007. He has had hypophonia since 2018 (he stated that this began during his hospitalization for his [place]/CABG and may have been procedure related). He has occasional swallowing difficulties since around 2017; he compensates for this by taking small bites. Over recent years his handwriting has become sloppier. He experiences occasional disequilibrium. He has chronic bilateral hearing loss. He reported having some memory difficulty however no change in his memory has been noted recently and he remains independent in his daily activities. Mini-Mental status exam score in November 2022 was 22/30. He does not have any history of symptomatic stroke. 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 He takes aspirin 81 mg daily and atorvastatin 40mg daily. A prior B12 injection was of some benefit for his fatigue. He is taking carbidopa/levodopa and had initial improvement of his mobility; however, his mobility worsened earlier in 2024. His dose of carbidopa/levodopa was increased to 2 tablets 4 times daily. No subsequent further change in his gait has been noted and he does not wish to make any medication change at this time. He has received physical therapy and occupational therapy earlier in 2024. He currently lives alone with the assistance of home health care and family support. He also meets with palliative care monthly. He has had nighttime restlessness of the legs since 2023. He feels the need to move his legs at night and his leg discomfort diminishes when he arises to walk. Ropinirole mg nightly was initiated earlier in 2024 and has been of benefit for his leg restlessness. Patient states that he feels well rested and sleeps approximately 9 to 10 hours per night. A right carotid bruit was noted on his last exam; no carotid bruits noted on exam today. His carotid ultrasound in March 2025 revealed less than 50% stenosis of the internal carotid arteries bilaterally; vertebral flow was antegrade bilaterally. Physical Exam: Neuro: The patient is awake and alert; he has hypophonic speech; no rigidity is noted in the wrist; no tremors noted; his gait is slow; he ambulates with a cane; he is oriented to day of the week; he is able to subtract 7 from 100 Neck: No bruits Heart: Regular rate and rhythm; a murmur is auscultated On prior exam a right carotid bruit was auscultated Supplemental Info EKG (05/05/2020): Sinus rhythm; right bundle branch block and left anterior fascicular block. Heart rate [address] (05/05/2020): Impression: No acute or posttraumatic intracranial abnormality. Right parietal extracranial laceration. Cerebral atrophy. Liver profile, lipid profile (02/25/2021): HDL 34 (low), VLDL 20 (normal), LDL 39 (normal), cholesterol 93 (normal), triglycerides 99 (normal) Cardiac echo (03/12/2021): The study was technically difficult. Segmental dysfunction with preserved ejection fraction (see wall motion). The estimated ejection fraction is 55 %. The left atrium is mildly enlarged. There is moderate to severe mitral annular calcification. Mild focal mitral valve calcification of the anterior leaflet. Trivial mitral valve insufficiency. Mild tricuspid valve insufficiency. Mild (1+) aortic valve insufficiency. Right ventricular systolic pressure estimated to be 34 mmHg. Transmitral diastolic flow velocities suggest diastolic dysfunction (pseudonormal pattern). Head (more content not included)... Normal [facility] Anion gap in Serum or Plasma Ordered By: Porsha Bass on 04-26-2025 Anion gap [Moles/Vol] 11 mmol/L - [facility] BUN/creatinine ratioOrdered By: Porsha Bass on 04-26-2025 Urea nitrogen/Creatinine [Mass ratio] 14.1 mg/mg 07-09 [facility] Basic Metabolic Profile (BMP )on 04-26-2025 BUN/CRE 14.1 RATIO Normal 07-09 [facility] Comment on above: Performed By: #### L 500.2500 #### [facility] Laboratory [address] [place], [address] Calcium [Mass/Vol] 9.1 mg/dL Normal 7.6-11.0 [facility] Comment on above: Performed By: #### L 500.2500 #### [facility] [address] [place], [address] Chloride [Moles/Vol] 106 mmol/L Normal 98-108 [facility] Comment on above: Performed By: #### L 500.2500 #### [facility] [address] [place], [address] CO2 [Moles/Vol] 20.7 mmol/L Low 21.0-32.0 [facility] Comment on above: Performed By: #### L 500.2500 #### [facility] [address] [place], [address] Creatinine [Mass/Vol] 1.85 mg/dL High 0.70-1.20 [facility] Comment on above: Performed By: #### L 500.2500 #### [facility] [address] [place], [address] GAP 11 Normal 5-15 [facility] Comment on above: Performed By: #### L 500.2500 #### [facility] [address] [place], [address] GFR/1.73 sq M.predicted among non-blacks MDRD (S/P/Bld) [Vol rate/Area] 35 mL/min/{1.73_m2} Low >60 [facility] Comment on above: Result Comment: mL/m in/1.73m2 CKD-EPI Creatinine Equation (2020) Performed By: #### L 500.2500 #### [facility] [address] [place], [address] Glucose [Mass/Vol] 174 mg/dL High 70-99 [facility] Comment on above: Performed By: #### L 500.2500 #### [facility] [address] [place], [address] Potassium [Moles/Vol] 4.4 mmol/L Normal 3.3-5.1 [facility] Comment on above: Performed By: #### L 500.2500 #### [facility] [address] [place], [address] Sodium [Moles/Vol] 138 mmol/L Normal 133-145 [facility] Comment on above: Performed By: #### L 500.2500 #### [facility] [address] [place], [address] Urea nitrogen [Mass/Vol] 26 mg/dL High 4-19 [facility] Comment on above: Performed By: #### L 500.2500 #### [facility] [address] [place], [address] Carbon dioxide, total [Moles /volume] in Central venous bloodOrdered By: Porsha Bass on 04-26-2025 CO2 [Moles/Vol] 20.7 mmol/L Low 21.0-32.0 [facility] Chloride assayOrdered By: Kev Bass on 04-26-2025 Chloride [Moles/Vol] 106 mmol/L 98-108 [facility] Glomerular filtration rate ( GFR) estimation/1.73 sq m using serum, plasma, or whole bOrdered By: Porsha Bass on 04-26-2025 GFR/1.73 sq M.predicted among non-blacks MDRD (S/P/Bld) [Vol rate/Area] 35 mL/min/{1.73_m2} Low >60 [facility] Comment on above: mL/min/1.73m2 CKD-EP I Creatinine Equation (2020) Kidney and Bladderon 025 Kidney and Bladder [facility] Imaging Services [address] [place], [place] [address] Kidney and Bladder MR#: [id number] Acct: [id number] Name: EKATERINA RANDHAWA Rep #: [id number] : 1940 M 85 From: Konrad gaston MD PCP: Dr. Jluis Nichole DO Status: REG CLI Study: Kidney and Bladder Date of Exam: 04/26/25 Exam# [id number] Ordering Dr: Porsha Bass DO PROCEDURE: KIDNEY AND BLADDER 04/26/2025 REASON FOR EXAM: HYPERKALEMIA TECHNIQUE: KIDNEY AND BLADDER COMPARISON: None FINDINGS: Kidneys: Normal renal sizes, parenchymal thicknesses, and echotextures. [place]: No evidence of hydronephrosis. Cysts or Masses: No cysts or large solid renal masses. Other: None RIGHT Kidney Size: 9.9 cm x 5.4 cm x 4.5 cm Volume: 127.5 mL Cortical Thickness (if discernible): 12 mm (>6mm is normal) LEFT Kidney Size: 10.9 cm x 4.2 cm x 5 cm Volume: 119.5 mL Cortical Thickness (if discernible): 12 mm (>6mm is normal) US/Kidney and Bladder IMPRESSION: NORMAL RENAL ULTRASOUND. Reading Location: [id number] CC: Dr. Porsha Bass, DO; Dr. Jluis Nichole DO Nut Threader: Signed Normal [facility] Potassium measurement (mass/ volume)Ordered By: Porsha Bass on 04-26-2025 Potassium (Unsp spec) [Mass/Vol] 4.4 mmol/L 3.3-5.1 [facility] Serum creatinine measurement (mass/volume)Ordered By: Porsha Bass on 04-26-2025 Creatinine [Mass/Vol] 1.85 mg/dL High 0.70-1.20 [facility] Serum glucose measurement (m ass/volume)Ordered By: Porsha Bass on 04-26-2025 Glucose [Mass/Vol] 174 mg/dL High 70-99 [facility] Serum or plasma calcium francisco urement (mass/volume)Ordered By: Porsha Bass on 04-26-2025 Calcium [Mass/Vol] 9.1 mg/dL 7.6-11.0 [facility] Serum or plasma urea nitroge n measurement (mass/volume)Ordered By: Porsha Bass on 04-26-2025 Urea nitrogen [Mass/Vol] 26 mg/dL High 4-19 [facility] Sodium levelOrdered By: Seth Bass on 04-26-2025 Sodium [Moles/Vol] 138 mmol/L 133-145 [facility] Anion gap in Serum or Plasma Ordered By: Porsha Bass on 04-19-2025 Anion gap [Moles/Vol] 10 mmol/L 5-15 [facility] BUN/creatinine ratioOrdered By: Porsha Bass on 04-19-2025 Urea nitrogen/Creatinine [Mass ratio] 13.8 mg/mg 10-20 [facility] Basic Metabolic Profile (BMP )on 04-19-2025 BUN/CRE 13.8 RATIO Normal 10-20 [facility] Comment on above: Performed By: #### L 500.2500 #### [facility] Laboratory [address] [place], [address] Calcium [Mass/Vol] 9.1 mg/dL Normal 7.6-11.0 [facility] Comment on above: Performed By: #### L 500.2500 #### [facility] [address] [place], [address] Chloride [Moles/Vol] 107 mmol/L Normal 98-108 [facility] Comment on above: Performed By: #### L 500.2500 #### [facility] [address] [place], [address] CO2 [Moles/Vol] 23.5 mmol/L Normal 21.0-32.0 [facility] Comment on above: Performed By: #### L 500.2500 #### [facility] Laboratory [address] [place], [address] Creatinine [Mass/Vol] 1.99 mg/dL High 0.70-1.20 [facility] Comment on above: Performed By: #### L 500.2500 #### [facility] [address] [place], [address] GAP 10 Normal 5-15 [facility] Comment on above: Performed By: #### L 500.2500 #### [facility] [address] [place], [address] GFR/1.73 sq M.predicted among non-blacks MDRD (S/P/Bld) [Vol rate/Area] 32 mL/min/{1.73_m2} Low >60 [facility] Comment on above: Result Comment: mL/m in/1.73m2 CKD-EPI Creatinine Equation (2020) Performed By: #### L 500.2500 #### [facility] [address] [place], [address] Glucose [Mass/Vol] 117 mg/dL High 70-99 [facility] Comment on above: Performed By: #### L 500.2500 #### [facility] Laboratory [address] [place], [address] Potassium [Moles/Vol] 5.7 mmol/L High 3.3-5.1 [facility] Comment on above: Performed By: #### L 500.2500 #### [facility] [address] [place], [place], [address] Sodium [Moles/Vol] 140 mmol/L Normal 133-145 [facility] Comment on above: Performed By: #### L 500.2500 #### [facility] [address] [place], [place], [address] Urea nitrogen [Mass/Vol] 27 mg/dL High 4-19 [facility] Comment on above: Performed By: #### L 500.2500 #### [facility] [address] [place], [place], [address] Carbon dioxide, total [Moles /volume] in Central venous bloodOrdered By: Porsha Bass on 04-19-2025 CO2 [Moles/Vol] 23.5 mmol/L 21.0-32.0 [facility] Chloride assayOrdered By: Kev Bass on 04-19-2025 Chloride [Moles/Vol] 107 mmol/L 98-108 [facility] Glomerular filtration rate ( GFR) estimation/1.73 sq m using serum, plasma, or whole bOrdered By: Porsha Bass on 04-19-2025 GFR/1.73 sq M.predicted among non-blacks MDRD (S/P/Bld) [Vol rate/Area] 32 mL/min/{1.73_m2} Low >60 [facility] Comment on above: mL/min/1.73m2 CKD-EP I Creatinine Equation (2020) Potassium measurement (mass/ volume)Ordered By: Porsha Bass on 04-19-2025 Potassium (Unsp spec) [Mass/Vol] 5.7 mmol/L High 3.3-5.1 [facility] Serum creatinine measurement (mass/volume)Ordered By: Porsha Bass on 04-19-2025 Creatinine [Mass/Vol] 1.99 mg/dL High 0.70-1.20 [facility] Serum glucose measurement (m ass/volume)Ordered By: Porsha Bass on 04-19-2025 Glucose [Mass/Vol] 117 mg/dL High 70-99 [facility] Serum or plasma calcium francisco urement (mass/volume)Ordered By: Porsha Bass on 04-19-2025 Calcium [Mass/Vol] 9.1 mg/dL 7.6-11.0 [facility] Serum or plasma urea nitroge n measurement (mass/volume)Ordered By: Porsha Bass on 04-19-2025 Urea nitrogen [Mass/Vol] 27 mg/dL High 4-19 [facility] Sodium levelOrdered By: Seth Bass on 04-19-2025 Sodium [Moles/Vol] 140 mmol/L 133-145 [facility] Anion gap in Serum or Plasma Ordered By: Porsha Bass on 04-10-2025 Anion gap [Moles/Vol] 10 mmol/L 5- [facility] BUN/creatinine ratioOrdered By: Porsha Bass on 04-10-2025 Urea nitrogen/Creatinine [Mass ratio] 16.9 mg/mg - [facility] Basic Metabolic Profile (BMP )on 04-10-2025 BUN/CRE 16.9 RATIO Normal - [facility] Comment on above: Performed By: #### L 500.2500, L501.5200 #### [facility] [address] [place], [address] Calcium [Mass/Vol] 9.4 mg/dL Normal 7.6-11.0 [facility] Comment on above: Performed By: #### L 500.2500, L501.5200 #### [facility] [address] [place], [address] Chloride [Moles/Vol] 107 mmol/L Normal 98-108 [facility] Comment on above: Performed By: #### L 500.2500, L501.5200 #### [facility] Laboratory [address] [place], [address] CO2 [Moles/Vol] 23.1 mmol/L Normal 21.0-32.0 [facility] Comment on above: Performed By: #### L 500.2500, L501.5200 #### [facility] Laboratory [address] [place], [address] Creatinine [Mass/Vol] 1.80 mg/dL High 0.70-1.20 [facility] Comment on above: Performed By: #### L 500.2500, L501.5200 #### [facility] [address] [place], [address] GAP 10 Normal 5-15 [facility] Comment on above: Performed By: #### L 500.2500, L501.5200 #### [facility] [address] [place], [address] GFR/1.73 sq M.predicted among non-blacks MDRD (S/P/Bld) [Vol rate/Area] 36 mL/min/{1.73_m2} Low >60 [facility] Comment on above: Result Comment: mL/m in/1.73m2 CKD-EPI Creatinine Equation (2020) Performed By: #### L 500.2500, L501.5200 #### [facility] [address] [place], [address] Glucose [Mass/Vol] 129 mg/dL High 70-99 [facility] Comment on above: Performed By: #### L 500.2500, L501.5200 #### [facility] [address] [place], [address] Potassium [Moles/Vol] 5.5 mmol/L High 3.3-5.1 [facility] Comment on above: Performed By: #### L 500.2500, L501.5200 #### [facility] [address] [place], [address] Sodium [Moles/Vol] 140 mmol/L Normal 133-145 [facility] Comment on above: Performed By: #### L 500.2500, L501.5200 #### [facility] [address] [place], [place], [address] Urea nitrogen [Mass/Vol] 30 mg/dL High 4-19 [facility] Comment on above: Performed By: #### L 500.2500, L501.5200 #### [facility] Laboratory [address] [place], [place], [address] Carbon dioxide, total [Moles /volume] in Central venous bloodOrdered By: Porsha Bass on 04-10-2025 CO2 [Moles/Vol] 23.1 mmol/L 21.0-32.0 [facility] Carotid Duplex Ultrasoundon 04-10-2025 Carotid Duplex Ultrasound [facility] [address] [place] [address] Carotid Duplex Ultrasound 04/10/25 1303 MR#: [id number] Acct: [id number] Name: EKATERINA RANDHAWA Rep #: [id number] : 1940 85 From: Cecilio Siu MD Attending Dr: OBIE Fernández Status: REG C LI Ordering Dr: Sharon Parsons AROMATHERAPIST-C Date: 04/10/25 Location: CVS Sex: M C Admitted: Reason For Study Reason For Study: Caroid Bruit Rt. Velocities/BP Lt. Velocities/BP Prox CCA 57.4/5.3 cm/sec. Prox CCA 63.1/9.0 cm/sec. Mid CCA 48.7/6.9 cm/sec. Mid CCA 59.6/9.9 cm/sec. Dist CCA 49.8/4.7 cm/sec. Dist CCA 45.6/7.2 cm/sec. Prox ICA 23.3/3.7 cm/sec. Prox ICA 41.3/9.0 cm/sec. Mid ICA 37.2/7.3 cm/sec. Mid ICA 38.6/9.9 cm/sec. Dist ICA 38.5/9.5 cm/sec. Dist ICA 45.0/11.4 cm/sec. Rt. ICA/CCA = 0.8. Lt. ICA/CCA = 0.8. Prox ECA 38.6/3.1 cm/sec. Prox ECA 42.1/2.0 cm/sec. Rt. Vert. 21.6/3.8 cm/sec. Lt. Vert. 43.2/10.2 cm/sec. Right Extracranial There is intimal thickening but no significant atherosclerotic plaque noted in the right common carotid artery. There is heterogeneous, irregular atherosclerotic plaque noted in the right internal carotid artery. There is intimal thickening but no significant atherosclerotic plaque noted in the right external carotid artery. Antegrade flow is noted in the right vertebral artery. Left Extracranial There is homogeneous, smooth atherosclerotic plaque noted in the left common carotid artery. There is heterogeneous, irregular atherosclerotic plaque noted in the left internal carotid artery. There is intimal thickening but no significant atherosclerotic plaque noted in the left external carotid artery. Antegrade flow is noted in the left vertebral artery. Procedure Carotid Duplex 62577. This is a Carotid Duplex examination using B-mode, color flow and specral Doppler. Exam performed in department. VL/Carotid Duplex Ultrasound Interpretation Summary Mild (<50%) stenosis right extracranial internal carotid. Mild (<50%) stenosis left extracranial internal carotid. Patent and antegrade vertebrals bilaterally. ___ Ordering Physician: Sharon Parsons Referring Physician: Jluis Nichole DO Performed By: Arelis Boyer, RVT 04/10/25 1425 Date Cecilio Siu MD CC: OBIE Parsons; Dr. Jluis Nichole DO Date Dictated: 04/10/25 1303 Date Transcribed: 04/10/25 142 Nut Threader: Signed [facility] Chloride assayOrdered By: Kev Bass on 04-10-2025 Chloride [Moles/Vol] 107 mmol/L 98-108 [facility] Duplex ultrasound of carotid artery reportOrdered By: Cecilio Siu on 04-10-2025 Study report [facility] [place] [address] [place] [address] Carotid Duplex Ultrasound 04/10/25 1303 MR#: [id number] Acct: [id number] Name: EKATERINA RANDHAWA Rep #:[id number] : 1940 85 From: Cecilio Bautista Attending Dr: Sharon Parsons, KALEIGH-C S tatus: REG CLI Ordering Dr: Sharon Parsons Date: 04/10/25 Location: CVS Sex: M C Admitted: Reason For Study Reason For Study: Caroid Bruit Rt. Velocities/BP Lt. Velocities/BP Prox CCA 57.4/5.3 cm/sec. Prox CCA 63.1/9.0 cm/sec. Mid CCA 48.7/6.9 cm/sec. Mid CCA 59.6/9.9 cm/sec. Dist CCA 49.8/4.7 cm/sec. Dist CCA 45.6/7.2 cm/sec. Prox ICA 23.3/3.7 cm/sec. Prox ICA 41.3/9.0 cm/sec. Mid ICA 37.2/7.3 cm/sec. Mid ICA 38.6/9.9 cm/sec. Dist ICA 38.5/9.5 cm/sec. Dist ICA 45.0/11.4 cm/sec. Rt. ICA/CCA = 0.8. Lt. ICA/CCA = 0.8. Prox ECA 38.6/3.1 cm/sec. Prox ECA 42.1/2.0 cm/sec. Rt. Vert. 21.6/3.8 cm/sec. Lt. Vert. 43.2/10.2 cm/sec. Right Extracranial There is intimal thickening but no significant atherosclerotic plaque noted in the right common carotid artery. There is heterogeneous, irregular atherosclerotic plaque noted in the right internal carotid artery. There is intimal thickening but no significant atherosclerotic plaque noted in the right external carotid artery. Antegrade flow is noted in the right vertebral artery. Left Extracranial There is homogeneous, smooth atherosclerotic plaque noted in the left common carotid artery. There is heterogeneous, irregular atherosclerotic plaque noted in the left internal carotid artery. There is intimal thickening but no significant atherosclerotic plaque noted in the left external carotid artery. Antegrade flow is noted in the left vertebral artery. Procedure Carotid Duplex 13592. This is a Carotid Duplex examination using B-mode, color flow and specral Doppler. Exam performed in department. VL/Carotid Duplex Ultrasound Interpretation Summary Mild (<50%) stenosis right extracranial internal carotid. Mild (<50%) stenosis left extracranial internal carotid. Patent and antegrade vertebrals bilaterally. ___ Ordering Physician: Sharon Parsons Referring Physician: Jluis Nichole DO Performed By: Arelis Boyer, RVT 04/10/25 1425 Date _ Cecilio Siu MD CC: AROMATHERAPIST-Mayra Parsons; Dr. Jluis Nichole DO ~ Date Dictated: 04/10/25 1303 Date Transcribed: 04/10/25 1425 Nut Threader: Signed [facility] Work Phone: Glomerular filtration rate ( GFR) estimation/1.73 sq m using serum, plasma, or whole bOrdered By: Porsha Bass on 04-10-2025 GFR/1.73 sq M.predicted among non-blacks MDRD (S/P/Bld) [Vol rate/Area] 36 mL/min/{1.73_m2} Low >60 [facility] Comment on above: mL/min/1.73m2 CKD-EP I Creatinine Equation (2020) Magnesiumon 04-10-2025 Magnesium [Mass/Vol] 2.0 mg/dL Normal 1.5-2.2 [facility] Comment on above: Performed By: #### L 500.2500, L501.5200 #### [facility] [address] [place], [address] Magnesium measurement (mass/ volume)Ordered By: Porsha Bass on 04-10-2025 Magnesium (Unsp spec) [Mass/Vol] 2.0 mg/dL 1.5-2.2 [facility] Potassium measurement (mass/ volume)Ordered By: Porsha Bass on 04-10-2025 Potassium (Unsp spec) [Mass/Vol] 5.5 mmol/L High 3.3-5.1 [facility] Serum creatinine measurement (mass/volume)Ordered By: Porsha Bass on 04-10-2025 Creatinine [Mass/Vol] 1.80 mg/dL High 0.70-1.20 [facility] Serum glucose measurement (m ass/volume)Ordered By: Porsha Bass on 04-10-2025 Glucose [Mass/Vol] 129 mg/dL High 70-99 [facility] Serum or plasma calcium francisco urement (mass/volume)Ordered By: Porsha Bass on 04-10-2025 Calcium [Mass/Vol] 9.4 mg/dL 7.6-11.0 [facility] Serum or plasma urea nitroge n measurement (mass/volume)Ordered By: Porsha Bass on 04-10-2025 Urea nitrogen [Mass/Vol] 30 mg/dL High 4-19 [facility] Sodium levelOrdered By: Seth Bass on 04-10-2025 Sodium [Moles/Vol] 140 mmol/L 133-145 [facility] Echo Completeon 03-28-2025 Echo [facility] [address] [place] [address] Echo Complete 03/28/25 1258 MR#: [id number] Acct: [id number] Name: EKATERINA RANDHAWA Rep #: [id number] : 1940 85 From: Cheng Camarillo MD Attending Dr: Bailey Howe PA Status: REG CLI Ordering Dr: Bailey Howe PA Date: 06/14 Location: CVS Sex: M C Admitted: Reason For Study Reason For Study: Murmur Procedure This was a 2D Doppler, Color Flow transthoracic echocardiogram. Exam performed in department. Left Ventricle Normal LV size. Moderate concentric left ventricular hypertrophy. Left ventricular systolic function is normal. The left ventricular ejection fraction is 65 %. No regional wall motion abnormalities noted. Right Ventricle Normal RV size. Normal systolic function. Atria The left atrium is mildly enlarged. The right atrium is mildly enlarged. Mitral Valve Normal mitral valve. Tricuspid Valve Normal tricuspid valve. Mild tricuspid valve insufficiency. Pulmonary artery systolic pressure is 24 mmHg. Aortic Valve Trisinus/trileaflet aortic valve. Mild focal aortic valve calcification. Peak aortic valve gradient 24 mmHg. Mean aortic valve gradient 14 mmHg. Mild (1+) aortic valve insufficiency. Pulmonic Valve Normal pulmonic valve. Great Vessels Normal aortic root. The pulmonary artery is normal size. Inferior vena cava collapse with respiration. Pericardium/Pleural No pericardial effusion. MMode/2D Measurements Calculations LVIDd: 3.7 cm IVSd: 1.4 cm LVOT diam: 2.2 cm LVIDs: 2.8 cm LVPWd: 1.4 cm LVOT area: 4.0 cm2 FS: 24.8 % Ao root diam: 4.4 cm LAV(MOD-bp): 62.9 ml Ao sinus diam: 4.1 cm LAV(MOD-bp) Indexed: 30.1 ml/m2 LAV(MOD-sp2): 62.4 ml LAV(MOD-sp4): 60.[address] Junction: 3.9 cm Aortic Valve Planimetry: 1.6 cm2 LA A4 area: 21.8 cm2 LA dimension(2D): 5.4 cm TAPSE: 1.6 cm RA A4 area: 22.0 cm2 Time Measurements MV dec time: 0.44 sec Doppler Measurements Calculations MV E max kell: 92.8 cm/sec Lat Peak E' Kell: 7.7 cm/sec Med Peak E' Kell: 3.6 cm/sec MV A max kell: 110.7 cm/sec E/E' lat: 12.0 E/E' med: 25.7 MV E/A: 0.84 MV V2 max: 124.3 cm/sec MV P1/2t max kell: 117.2 cm/sec Ao V2 max: 245.6 cm/sec MV max P.2 mmHg MV P1/2t: 121.7 msec Ao max P.1 mmHg MV V2 mean: 63.8 cm/sec MV dec slope: 282.1 cm/sec2 Ao V2 mean: 176.8 cm/sec MV mean P.0 mmHg Ao mean P.1 mmHg MV V2 VTI: 48.2 cm MVA(P1/2t): 1.8 cm2 Ao V2 VTI: 59.0 cm MVA(VTI): 2.1 cm2 AV (velocity ratio): 0.44 DIMA(I,D): 1.7 cm2 DIMA(V,D): 1.5 cm2 AI max kell: 464.2 cm/sec LV V1 max: 94.3 cm/sec SV(LVOT): 103.1 ml AI max P.5 mmHg LV V1 max P.6 mmHg AI dec slope: 209.5 cm/sec2 LV V1 mean P.2 mmHg AI P1/2t: 649.0 msec LV V1 mean: 69.2 cm/sec LV V1 VTI: 26.0 cm PA V2 max: 71.7 cm/sec TR max kell: 230.0 cm/sec TR max P.2 mmHg ECHO/Echo Complete Interpretation Summary Normal LV size. Moderate concentric left ventricular hypertrophy. Left ventricular systolic function is normal. The left ventricular ejection fraction is 65 %. Mild focal aortic valve calcification. Mean aortic valve gradient 14 mmHg. ___ Ordering Physician: Bailey Howe Referring Physician: Bailey Howe Performed By: Palmer Rowley and Student 03/28/251840 Date Cheng Camarillo MD CC: Dr. Jluis Nichole DO; DG Fontana Date Dictated: 03/28/251257 Date Transcribed: 03/28/251840 Nut Threader: Signed Normal [facility] Echocardiogram study reportO rdered By: Cheng Camarillo on 03-28-2025 Study report [facility] [address] [place] [address] Echo Complete 03/28/251257 MR#: [id number] Acct: [id number] Name: EKATERINA RANDHAWA Rep #:[id number] : 1940 85 From: Cheng Bautista Attending Dr: DG Fontana Status: REG CLI Ordering Dr: Bailey Howe Date: 03/28/25 Location: [facility] Sex: M C Admitted: Reason For Study Reason For Study: Murmur Procedure This was a 2D Doppler, Color Flow transthoracic echocardiogram. Exam performed in department. Left Ventricle Normal LV size. Moderate concentric left ventricular hypertrophy. Left ventricular systolic function is normal. The left ventricular ejection fraction is 65 %. No regional wall motion abnormalities noted. Right Ventricle Normal RV size. Normal systolic function. Atria The left atrium is mildly enlarged. The right atrium is mildly enlarged. Mitral Valve Normal mitral valve. Tricuspid Valve Normal tricuspid valve. Mild tricuspid valve insufficiency. Pulmonary artery systolic pressure is 24 mmHg. Aortic Valve Trisinus/trileaflet aortic valve. Mild focal aortic valve calcification. Peak aortic valve gradient 24 mmHg. Mean aortic valve gradient 14 mmHg. Mild (1+) aortic valve insufficiency. Pulmonic Valve Normal pulmonic valve. Great Vessels Normal aortic root. The pulmonary artery is normal size. Inferior vena cava collapse with respiration. Pericardium/Pleural No pericardial effusion. MMode/2D Measurements & Calculations LVIDd: 3.7 cm IVSd: 1.4 cm LVOT diam: 2.2 cm LVIDs: 2.8 cm LVPWd: 1.4 cm LVOT area: 4.0 cm2 FS: 24.8 % Ao root diam: 4.4 cm LAV(MOD-bp): 62.9 ml Ao sinus diam: 4.1 cm LAV(MOD-bp) Indexed: 30.1 ml/m2 LAV(MOD-sp2): 62.4 ml LAV(MOD-sp4): 60.[address] Junction: 3.9 cm Aortic Valve Planimetry: 1.6 cm2 LA A4 area: 21.8 cm2 LA dimension(2D): 5.4 cm TAPSE: 1.6 cm RA A4 area: 22.0 cm2 Time Measurements MV dec time: 0.44 sec Doppler Measurements & Calculations MV E max kell: 92.8 cm/sec Lat Peak E' Kell: 7.7 cm/sec Med Peak E' Kell: 3.6 cm/sec MV A max kell: 110.7 cm/sec E/E' lat: 12.0 E/E' med: 25.7 MV E/A: 0.84 MV V2 max: 124.3 cm/sec MV P1/2t max kell: 117.2 cm/sec Ao V2 max: 245.6 cm/sec MV max P.2 mmHg MV P1/2t: 121.7 msec Ao max P.1 mmHg MV V2 mean: 63.8 cm/sec MV dec slope: 282.1 cm/sec2 Ao V2 mean: 176.8 cm/sec MV mean P.0 mmHg Ao mean P.1 mmHg MV V2 VTI: 48.2 cm MVA(P1/2t): 1.8 cm2 Ao V2 VTI: 59.0 cm MVA(VTI): 2.1 cm2 AV (velocity ratio): 0.44 DIMA(I,D): 1.7 cm2 DIMA(V,D): 1.5 cm2 AI max kell: 464.2 cm/sec LV V1 max: 94.3 cm/sec SV(LVOT): 103.1 ml AI max P.5 mmHg LV V1 max P.6 mmHg AI dec slope: 209.5 cm/sec2 LV V1 mean P.2 mmHg AI P1/2t: 649.0 msec LV V1 mean: 69.2 cm/sec LV V1 VTI: 26.0 cm PA V2 max: 71.7 cm/sec TR max kell: 230.0 cm/sec TR max P.2 mmHg ECHO/Echo Complete Interpretation Summary Normal LV size. Moderate concentric left ventricular hypertrophy. Left ventricular systolic function is normal. The left ventricular ejection fraction is 65 %. Mild focal aortic valve calcification. Mean aortic valve gradient 14 mmHg. ___ Ordering Physician: Bailey Howe Referring Physician: Bailey Howe Performed By: Palmer Rowley and Student 03/28/251840 Date _ Cheng Camarillo MD CC: Dr. Jluis Nichole DO; DG Fontana ~ Date Dictated: 03/28/25 1258 Date Transcribed: 03/28/251840 Nut Threader: Signed [facility] Work Phone: Neurology Visit Reporton Neurology Visit Report [facility] [address] [place] [address], [address] [address] OFFICE VISIT Date of Service: 03/28/25 MR#: [id number] Acct: [id number] Name: EKATERINA RANDHAWA Rep #: [id number] : 1940 Provider: OBIE key Age/Sex: 85/M Location: [facility] [place]. Status: Signed HPI HPI Chief Complaint: Details: Interim History: Ekaterina returns for follow-up visit. He is accompanied by his daughter Carrie. He has a history of hypertension, diabetes mellitus, benign prostatic hypertrophy status post TURP, myocardial infarction status post CABG in 2018, hyperlipidemia and stage IV renal insufficiency. Since 2019, he has had some gait difficulty. His gait has become short stepped and shuffling. He has been using a cane. He has had difficulty arising from his bed in the morning and and arising from a chair. He denied having numbness or focal weakness however he reported having fatigue and vague generalized weakness. He had a right total knee replacement. He denied having pain in the lower extremities, neck or lower back. Since the 2021, he has had a bilateral hand tremor that is present at rest and more commonly seen at night; his tremor has subsided since increasing his dose of carbidopa/levodopa 25/100 to 2 tablets 3 times daily in 2022. He experiences occasional diplopia. He has had nystagmus. He has had urinary incontinence since at least 2007. He has had hypophonia since 2017 (he stated that this began during his hospitalization for his [place]/CABG and may have been procedure related). He has occasional swallowing difficulties since around 2017; he compensates for this by taking small bites. He stated that over recent years his handwriting has become sloppier. He experiences occasional disequilibrium. He has chronic bilateral hearing loss. He reported having some memory difficulty however it appears that from a cognitive standpoint he remains overall independent. Mini-Mental status exam score in November 2022 was 22/30. He does not have any history of symptomatic stroke. 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 He takes aspirin 81 mg daily and atorvastatin 40mg daily. A prior B12 injection was of some benefit for his fatigue. He is taking carbidopa/levodopa with initial improvement of his mobility; however, his mobility has worsened over the past 3 months per patient and daughter report. Symptoms are reported to be worse in the afternoon/evening. He reported a fall one month prior when using the stairs. He is currently receiving physical and occupational therapy once weekly. The patient was previously residing at home with his , but approximately 2 months ago she was moved to an Alzheimer's care unit. He currently lives alone with the assistance of home health care and family support. He also meets with palliative care monthly. He has had nighttime restlessness of the legs since early 2023. He feels the need to move his legs at night and his leg discomfort diminishes when he arises to walk. He was started on ropinirole 1 mg nightly in November 2024 with a positive response. Patient states that he feels well rested and sleeps approximately 9 to 10 hours per night. There was an auscultated carotid bruit noted on the right side. This is a new exam finding. Patient has no known prior history of carotid stenosis. ROS: Per HPI Physical Exam: Neuro: The patient is awake and alert; he has hypophonic speech; pupils are 4mm in size bilaterally minimally reactive to light; there is presence of vertical upward gaze nystagmus (this was previously noted on November 2022 exam); motor strength is 5-/5 in the quadriceps and hip flexors bilaterally, 5/5 in the biceps and triceps bilaterally; cogwheel rigidity present in both wrists with and without distraction; very fine bilateral hand tremor is noted with arm extension; there is postural instability therefore gait assessment was deferred Neck: Right carotid bruit present (new), no auscultated bruit on the left. Heart: Regular rate and rhythm; a murmur is auscultated Supplemental Info EKG (05/05/2020): Sinus rhythm; right bundle branch block and left anterior fascicular block. Heart rate [address] (05/05/2020): Findings: No parenchymal or extra-axial intracranial hemorrhage, mass effect or midline shift is seen. No hydrocephalus. There is moderate cerebral cortical atrophy greater on the left side. Mild calcification of the intracranial arteries. No displaced or depressed calvarial fracture. There is a right parietal extracranial soft tissue laceration. There is opacification and mucosal thickening in the left ethmoid and right frontal sinuses. The mastoids are clear. Impression: No acute o (more content not included)... Normal [facility] CNPNon 02-28-2025 [employer] [facility] ([facility] ----- EKATERINA RANDHAWA ([id number]) 1940 M Date Time Provider Department 02/28/25 TONEY GUTIERREZ During your visit today, we recorded the following information about you: Deb Orozco LPN 02/28/2025 8:01 AM Signed Received recent lab results from PCP, spoke with Dr. Gutierrez, he would like to see the pt. At pts. Convenience. CARMELO Baird Naomi 02/28/2025 9:40 AM Signed LVM for pt to call back and schedule appt w Dr Gutierrez. Nancy Aliceaomi 03/05/2025 3:17 PM Signed Spoke w pt daughter and wants to talk to pcp before scheduling, will call back. Suyapa Sosa Allergies As of Date: 02/28/2025 (No Known Allergies) Date Reviewed: 09/12/2024 Reviewed by: Carrie García Ma, MA - Fully Assessed Reason for Visit: discuss recent lab results [Other] Prescriptions as of 06/07/2025 - carbidopa-levodopa (SINEMET 25-100) 25-100 mg per tablet Take 1 tablet by mouth three times a day. - lisinopril (ZESTRIL) 20 mg tablet Take 20 mg by mouth two times a day. - atorvastatin (LIPITOR) 40 mg tablet Take 40 mg by mouth daily at bedtime. - sodium zirconium cyclosilicate (LOKELMA) 10 gram oral packet Take 10 g by mouth once daily. Mix powder in 45 mL of water, stir and drink immediately. - doxazosin (CARDURA) 4 mg tablet Take 4 mg by mouth daily at bedtime. - cyanocobalamin, vitamin B-12, (VITAMIN B-12 ORAL) Take 1 tablet by mouth once daily. - MAGNESIUM ORAL Take 1 tablet by mouth once daily. - acetaminophen (TYLENOL) 325 mg tablet 2 tablets by ORAL/FEEDING TUBE route every 4 hours as needed. - metFORMIN (GLUCOPHAGE) 500 mg tablet Take 2 tablets by mouth twice daily with meals. - atorvastatin (LIPITOR) 80 mg tablet Take 1 tablet by mouth daily at bedtime. - lisinopril 2.5 mg tablet Take 1 tablet by mouth once daily. - metoprolol succinate ER (TOPROL XL) 100 mg Tb24 Take 1 tablet by mouth twice daily. - therapeutic multivitamin (THERA VITAMIN) tablet Take 1 tablet by mouth once daily. - melatonin 3 mg tablet Take 1 tablet by mouth daily at bedtime. - aspirin 81 mg chewable tablet Take 1 tablet by mouth once daily. - clopidogrel (PLAVIX) 75 mg tablet Take 1 tablet by mouth once daily. - pantoprazole DR (PROTONIX) 40 mg tablet Take 40 mg by mouth once daily. - finasteride (PROSCAR) 5 mg tablet Take 5 mg by mouth once daily. - tamsulosin ER (FLOMAX) 0.4 mg cp24 Take 0.4 mg by mouth. Problem List As Of Date 02/28/2025 Noted Resolved NSTEMI (non-ST elevated myocardial infarction) *05/07/2018 Essential hypertension [I10] 05/09/2018 Mixed hyperlipidemia [E78.2] 05/09/2018 05/18/2018 Cardiomyopathy, ischemic [I25.5] 05/09/2018 Urinary retention [R33.9] 05/10/2018 Postprocedural hypotension [I95.81] 05/14/2018 05/16/2018 Discharge planning issues [Z75.8] 05/14/2018 Controlled type 2 diabetes mellitus without com*05/14/2018 Pain, postoperative, acute [G89.18] 05/14/2018 05/18/2018 Paroxysmal atrial fibrillation (HCC) [I48.0] 05/14/2018 Fluid overload [E87.70] 05/16/2018 05/18/2018 Transition of care performed with sharing of cl*05/17/2018 Hyperlipidemia LDL goal <70 [E78.5] 05/18/2018 Coronary artery disease involving [place] ying*05/18/2018 Leukocytosis [D72.829] 05/20/2018 TONY (acute kidney injury) (HCC) [N17.9] 05/21/2018 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/03/2018 Encounter Status:Closed by DEB OROZCO on 06/07/25 Normal [facility] INTABon 02-24-2025 Intrinsic Factor Abs 0.9 Au/mL Normal 0.0-1.1 [facility] Comment on above: Result Comment: Perf ormed At: [facility] [address] [id number] Jacques Ferrell MD Ph:[phone] Performed By: #### C KYUNG MENON, MG, ADIFF, GFR, CMP, ANEU #### [address] [address] .Auto Diffon 02-22-2025 Basophil, Absolute 0.1 10 3/mcL Normal 0.0-0.3 [facility] Comment on above: Performed By: #### C KYUNG MENON, MG, ADIFF, GFR, CMP, ANEU #### [address] [address] Basophils/100 WBC (Bld) 1.4 % Normal 0.0-2.5 [facility] Comment on above: Performed By: #### C KYUNG MENON, MG, ADIFF, GFR, CMP, ANEU #### [address] [address] Eosinophil, Absolute 0.1 10 3/mcL Normal 0.0-0.7 [facility] Comment on above: Performed By: #### C KYUNG MENON, MG, ADIFF, GFR, CMP, ANEU #### [address] [address] Eosinophils/100 WBC (Bld) 2.0 % Normal 0.0-6.0 [facility] Comment on above: Performed By: #### KYUNG SANTOS, MG, ADIFF, GFR, CMP, ANEU #### [address] [address] Lymphocyte, Absolute 1.5 10 3/mcL Normal 0.9-4.3 [facility] Comment on above: Performed By: #### C LYNSEY, KYUNG, MG, ADIFF, GFR, CMP, ANEU #### [address] [address] Lymphocytes/100 WBC (Bld) 26.0 % Normal 20.0-40.0 [facility] Comment on above: Performed By: #### C LYNSEY, MDW, MG, ADIFF, GFR, CMP, ANEU #### [address] [address] Monocyte, Absolute 0.5 10 3/mcL Normal 0.1-1.4 [facility] Comment on above: Performed By: #### C LYNSEY, KYUNG, MG, ADIFF, GFR, CMP, ANEU #### [address] [address] Monocytes/100 WBC (Bld) 7.8 % Normal 2.0-13.0 [facility] Comment on above: Performed By: #### C LYNSEY, KYUNG, MG, ADIFF, GFR, CMP, ANEU #### [address] [address] Neutrophils/100 WBC (Bld) 62.8 % Normal 50.0-75.0 [facility] Comment on above: Performed By: #### C LYNSEY, W, MG, ADIFF, GFR, CMP, ANEU #### [address] [address] .GFRon 02-22-2025 Estimated Glomerular Filtration Rate 30 ml/min/1.73sqm Normal [facility] Comment on above: Result Comment: Stages of Chronic Kidney Disease (CKD) Stage Description eGFR(ml/min/1.73 sq.m.) CKD 1 Normal kidney function or >=90 normal kindney function with possible kidney damage (ex. Proteinuria) CKD 2 Kidney damage with mild loss 60-89 of kidney function CKD 3a Mild to moderate loss of kidney 45-59 function CKD 3b Moderate to severe loss of 30-44 of kindey function CKD 4 Severe loss of kidney function 15-29 CKD 5 Kidney failure <15 Note: (go live 2024) the eGFR calculation was updated to the 2020 CKD-EPI creatinine equation without a race factor to calculate the eGFR results. Performed By: #### C BC, MDW, MG, ADIFF, GFR, CMP, ANEU #### [place] [address] .MDWon 02-22-2025 Monocyte Distribution Width 17.57 Normal 0.00-20.00 [facility] Comment on above: Result Comment: For ED adult patients suspected of sepsis, MDW<=20.0 does not rule out sepsis or risk of sepsis Performed By: #### C BC, MDW, MG, ADIFF, GFR, CMP, ANEU #### [place] [address] .NEUABSon 02-22-2025 Neutrophil, Absolute 3.6 10 3/mcL Normal 2.3-8.1 [facility] Comment on above: Performed By: #### C BC, MDW, MG, ADIFF, GFR, CMP, ANEU #### [place] [address] CBCon 02-22-2025 Erythrocyte distribution width (RBC) [Ratio] 15.6 % High 11.5-15.5 [facility] Comment on above: Performed By: #### C BC, MDW, MG, ADIFF, GFR, CMP, ANEU #### [place] [address] Hematocrit (Bld) [Volume fraction] 32.7 % Low 40.0-52.0 [facility] Comment on above: Performed By: #### C BC, MDW, MG, ADIFF, GFR, CMP, ANEU #### [place] [address] Hgb 10.8 G/dL Low 13.0-17.5 [facility] Comment on above: Performed By: #### C BC, MDW, MG, ADIFF, GFR, CMP, ANEU #### [place] [address] MCH (RBC) [Entitic mass] 29.5 pg Normal 27.0-33.0 [facility] Comment on above: Performed By: #### C KYUNG MENON, MG, ADIFF, GFR, CMP, ANEU #### [address] [address] MCHC 33.0 G/dL Normal 32.0-36.0 [facility] Comment on above: Performed By: #### C KYUNG MENON, MG, ADIFF, GFR, CMP, ANEU #### [address] [address] MCV (RBC) [Entitic vol] 89.5 fL Normal 81.0-100.0 [facility] Comment on above: Performed By: #### C KYUNG MENON, MG, ADIFF, GFR, CMP, ANEU #### [address] [address] Platelet 104 10 3/mcL Low 150-450 [facility] Comment on above: Performed By: #### C KYUNG MENON, MG, ADIFF, GFR, CMP, ANEU #### [address] [address] Platelet mean volume (Bld) [Entitic vol] 7.2 fL Normal 6.4-10.5 [facility] Comment on above: Performed By: #### C KYUNG MENON, MG, ADIFF, GFR, CMP, ANEU #### [address] [address] RBC 3.65 10 6/mcL Low 4.50-6.00 [facility] Comment on above: Performed By: #### C KYUNG MENON, MG, ADIFF, GFR, CMP, ANEU #### [address] [address] WBC 5.8 10 3/mcL Normal 4.5-10.8 [facility] Comment on above: Performed By: #### C KYUNG MENON, MG, ADIFF, GFR, CMP, ANEU #### [address] [address] CMPon 02-22-2025 ALT [Catalytic activity/Vol] 9 U/L Low 16-63 [facility] Comment on above: Performed By: #### C KYUNG MENON, MG, ADIFF, GFR, CMP, ANEU #### [place] [address] Albumin Level 3.7 G/dL Normal 3.4-4.8 [facility] Comment on above: Performed By: #### C KYUNG MENON, MG, ADIFF, GFR, CMP, ANEU #### [place] [address] Albumin/Globulin [Mass ratio] 1.3 {ratio} Normal 1.1-2.5 [facility] Comment on above: Performed By: #### C KYUNG MENON, MG, ADIFF, GFR, CMP, ANEU #### [place] [address] ALP [Catalytic activity/Vol] 99 U/L Normal 40-135 [facility] Comment on above: Performed By: #### C KYUNG MENON, MG, ADIFF, GFR, CMP, ANEU #### [place] [address] AST [Catalytic activity/Vol] 14 U/L Normal 10-40 [facility] Comment on above: Performed By: #### C KYUNG MENON, MG, ADIFF, GFR, CMP, ANEU #### [place] [address] Bili Total 0.5 mg/dL Normal 0.2-1.0 [facility] Comment on above: Result Comment: Use of this assay is not recommended for patients undergoing treatment with eltrombopag due to the potential for falsely elevated results. Performed By: #### C KYUNG MENON, MG, ADIFF, GFR, CMP, ANEU #### [place] [address] BUN/Creatinine Ratio 16 ratio Normal 7-27 [facility] Comment on above: Performed By: #### C KYUNG MENON, MG, ADIFF, GFR, CMP, ANEU #### [place] [address] Calcium [Mass/Vol] 8.9 mg/dL Normal 8.4-10.2 [facility] Comment on above: Performed By: #### C BC, W, MG, ADIFF, GFR, CMP, ANEU #### [place] [address] Chloride [Moles/Vol] 106 mmol/L Normal 98-107 [facility] Comment on above: Performed By: #### C BC, MDW, MG, ADIFF, GFR, CMP, ANEU #### [place] [address] CO2 [Moles/Vol] 28 mmol/L Normal 23-31 [facility] Comment on above: Performed By: #### C BC, MDW, MG, ADIFF, GFR, CMP, ANEU #### [place] [address] Creatinine [Mass/Vol] 2.12 mg/dL High 0.67-1.17 [facility] Comment on above: Performed By: #### C LYNSEY, W, MG, ADIFF, GFR, CMP, ANEU #### [place] [address] Electrolyte Balance 7.0 mEq/L Normal 4.0-15.0 [facility] Comment on above: Performed By: #### C BC, MDW, MG, ADIFF, GFR, CMP, ANEU #### [place] [address] Globulin 2.8 G/dL Normal 2.7-4.4 [facility] Comment on above: Performed By: #### C LYNSEY, W, MG, ADIFF, GFR, CMP, ANEU #### [place] [address] Glucose [Mass/Vol] 113 mg/dL High 83-110 [facility] Comment on above: Performed By: #### C BC, MDW, MG, ADIFF, GFR, CMP, ANEU #### [place] [address] Potassium [Moles/Vol] 4.7 mmol/L Normal 3.5-5.1 [facility] Comment on above: Performed By: #### C KYUNG MENON, MG, ADIFF, GFR, CMP, ANEU #### [address] [address] Sodium [Moles/Vol] 141 mmol/L Normal 136-145 [facility] Comment on above: Performed By: #### C KYUNG MENON, MG, ADIFF, GFR, CMP, ANEU #### [place] [address] Total Protein 6.5 G/dL Normal 6.4-8.2 [facility] Comment on above: Performed By: #### KYUNG SANTOS, MG, ADIFF, GFR, CMP, ANEU #### [place] [address] Urea nitrogen [Mass/Vol] 34 mg/dL High 7-18 [facility] Comment on above: Performed By: #### C KYUNG MENON, MG, ADIFF, GFR, CMP, ANEU #### [place] [address] Jimmy 02-22-2025 Gastrin 113 pg/mL Normal 0-115 [facility] Comment on above: Result Comment: [employer] [facility] Immulite 2000 Immunochemiluminometric assay (ICMA) Values obtained with different assay methods or kits cannot be used interchangeably. Results cannot be interpreted as absolute evidence of the presence or absence of malignant disease. Performed At: [address] [id number] Jacques Ferrell MD Ph:[phone] Performed By: #### C KYUNG MENON, MG, ADIFF, GFR, CMP, ANEU #### [place] [address] LABORATORYOrdered By: SYSTEM SYSTEM on 02-22-2025 Albumin BCP dye [Mass/Vol] 3.7 G/dL Normal 3.4 - 4.8 G/dL AO ADM SS Albumin/Globulin [Mass ratio] 1.3 {ratio} Normal 1.1 - 2.5 ratio AO ADM SS ALP [Catalytic activity/Vol] 99 U/L Normal 40 - 135 U/L AO ADM SS ALT With P-5'-P [Catalytic activity/Vol] 9 U/L Low 16 - 63 U/L AO ADM SS AST With P-5'-P [Catalytic activity/Vol] 14 U/L Normal 10 - 40 U/L AO ADM SS Basophils (Bld) [#/Vol] 0.1 103/mcL Normal 0.0 - 0.3 10^3/mcL AO Workflow SS Basophils/100 WBC (Bld) 1.4 % Normal 0.0 - 2.5 % AO Workflow SS Bilirubin [Mass/Vol] 0.5 mg/dL Normal 0.2 - 1 .0 mg/dL AO ADM SS Comment on above: Interpretive Data: U se of this assay is not recommended for patients undergoing treatment with eltrombopag due to the potential for falsely elevated results. Calcium [Mass/Vol] 8.9 mg/dL Normal 8.4 - 10. 2 mg/dL AO ADM SS Chloride [Moles/Vol] 106 mmol/L Normal 98 - 10 7 mmol/L AO ADM SS CO2 [Moles/Vol] 28 mmol/L Normal 23 - 31 mmol/L AO ADM SS Creatinine [Mass/Vol] 2.12 mg/dL High 0.67 - 1.17 mg/dL AO ADM SS Electrolyte Balance 7.0 mEq/L Normal 4.0 - 15 .0 mEq/L AO ADM SS Eosinophil, Absolute 0.1 103/mcL Normal 0.0 - 0 .7 10^3/mcL AO Workflow SS Eosinophils/100 WBC (Bld) 2.0 % Normal 0.0 - 6.0 % AO Workflow SS Erythrocyte distribution width (RBC) [Ratio] 15.6 % High 11.5 - 15.5 % AO Workflow SS Estimated Glomerular Filtration Rate 30 ml/min/1.73sqm Invalid Interpretation Code AO Chemistry S Comment on above: Interpretive Data: Stages of Chronic Kidney Disease (CKD) Stage Description eGFR(ml/min/1.73 sq.m.) CKD 1 Normal kidney function or >=90 normal kindney function with possible kidney damage (ex. Proteinuria) CKD 2 Kidney damage with mild loss 60-89 of kidney function CKD 3a Mild to moderate loss of kidney 45-59 function CKD 3b Moderate to severe loss of 30-44 of kindey function CKD 4 Severe loss of kidney function 15-29 CKD 5 Kidney failure <15 Note: (go live 2024) the eGFR calculation was updated to the 2020 CKD-EPI creatinine equation without a race factor to calculate the eGFR results. Globulin 2.8 G/dL Normal 2.7 - 4.4 G/dL AO ADM SS Glucose [Mass/Vol] 113 mg/dL High 83 - 110 mg/dL AO ADM SS Hematocrit (Bld) [Volume fraction] 32.7 % Low 40.0 - 52.0 % AO Workflow SS Hemoglobin (Bld) [Mass/Vol] 10.8 G/dL Low 13.0 - 17.5 G/dL AO Workflow SS Lymphocytes (Bld) [#/Vol] 1.5 103/mcL Normal 0.9 - 4.3 10^3/mcL AO Workflow SS Lymphocytes/100 WBC (Bld) 26.0 % Normal 20.0 - 40.0 % AO Workflow SS Magnesium [Mass/Vol] 1.8 mg/dL Normal 1.8 - 2 .4 mg/dL AO ADM SS MCH (RBC) [Entitic mass] 29.5 pg Normal 27. 0 - 33.0 pg AO Workflow SS MCHC 33.0 G/dL Normal 32.0 - 36.0 G/dL AO Workflow SS MCV (RBC) [Entitic vol] 89.5 fL Normal 81.0 - 100.0 fL AO Workflow SS Monocyte distribution width Auto (Bld) [Entitic vol] 17.57 1 Normal 0.00 - 20.00 AO Workflow SS Comment on above: Result Comment: For ED adult patients suspected of sepsis, MDW<=20.0 does not rule out sepsis or risk of sepsis Monocytes (Bld) [#/Vol] 0.5 103/mcL Normal 0.1 - 1.4 10^3/mcL AO Workflow SS Monocytes/100 WBC (Bld) 7.8 % Normal 2.0 - 13.0 % AO Workflow SS Neutrophils (Bld) [#/Vol] 3.6 103/mcL Normal 2.3 - 8.1 10^3/mcL AO Workflow SS Neutrophils/100 WBC (Bld) 62.8 % Normal 50.0 - 75.0 % AO Workflow SS Platelet mean volume (Bld) [Entitic vol] 7.2 fL Normal 6.4 - 10.5 fL AO Workflow SS Platelets (Bld) [#/Vol] 104 103/mcL Low 150 - 450 10^3/mcL AO Workflow SS Potassium [Moles/Vol] 4.7 mmol/L Normal 3.5 - 5.1 mmol/L AO ADM SS Protein [Mass/Vol] 6.5 G/dL Normal 6.4 - 8.2 G/dL AO ADM SS RBC (Bld) [#/Vol] 3.65 106/mcL Low 4.50 - 6.00 10^6/mcL AO Workflow SS Sodium [Moles/Vol] 141 mmol/L Normal 136 - 145 mmol/L AO ADM SS Urea nitrogen [Mass/Vol] 34 mg/dL High 7 - 18 mg/dL AO ADM SS Urea nitrogen/Creatinine [Mass ratio] 16 ratio Normal 7 - 27 ratio AO ADM SS WBC (Bld) [#/Vol] 5.8 103/mcL Normal 4.5 - 10.8 10^3/mcL AO Workflow SS MGon 02-22-2025 Magnesium [Mass/Vol] 1.8 mg/dL Normal 1.8-2.4 [facility] Comment on above: Performed By: #### C KYUNG MENON, MG, ADIFF, GFR, CMP, ANEU #### [place] [address] .Auto Diffon 02-21-2025 Basophil, Absolute 0.0 10 3/mcL Normal 0.0-0.3 [facility] Comment on above: Performed By: #### C KYUNG MENON, MG, ADIFF, GFR, CMP, ANEU #### [address] [address] Basophils/100 WBC (Bld) 0.6 % Normal 0.0-2.5 [facility] Comment on above: Performed By: #### C KYUNG MENON, MG, ADIFF, GFR, CMP, ANEU #### [place] [id number] Eosinophil, Absolute 0.1 10 3/mcL Normal 0.0-0.7 [facility] Comment on above: Performed By: #### C KYUNG MENON, MG, ADIFF, GFR, CMP, ANEU #### [address] [address] Eosinophils/100 WBC (Bld) 2.4 % Normal 0.0-6.0 [facility] Comment on above: Performed By: #### C LYNSEY, W, MG, ADIFF, GFR, CMP, ANEU #### [address] [address] Lymphocyte, Absolute 1.5 10 3/mcL Normal 0.9-4.3 [facility] Comment on above: Performed By: #### C LYNSEY, KYUNG, MG, ADIFF, GFR, CMP, ANEU #### [address] [address] Lymphocytes/100 WBC (Bld) 24.4 % Normal 20.0-40.0 [facility] Comment on above: Performed By: #### C KYUNG MENON, MG, ADIFF, GFR, CMP, ANEU #### [address] [address] Monocyte, Absolute 0.4 10 3/mcL Normal 0.1-1.4 [facility] Comment on above: Performed By: #### C KYUNG MENON, MG, ADIFF, GFR, CMP, ANEU #### [address] [address] Monocytes/100 WBC (Bld) 6.1 % Normal 2.0-13.0 [facility] Comment on above: Performed By: #### C KYUNG MENON, MG, ADIFF, GFR, CMP, ANEU #### [address] [address] Neutrophils/100 WBC (Bld) 66.5 % Normal 50.0-75.0 [facility] Comment on above: Performed By: #### C KYUNG MENON, MG, ADIFF, GFR, CMP, ANEU #### [address] [address] .GFRon 02-21-2025 Estimated Glomerular Filtration Rate 31 ml/min/1.73sqm Normal [facility] Comment on above: Result Comment: Stages of Chronic Kidney Disease (CKD) Stage Description eGFR(ml/min/1.73 sq.m.) CKD 1 Normal kidney function or >=90 normal kindney function with possible kidney damage (ex. Proteinuria) CKD 2 Kidney damage with mild loss 60-89 of kidney function CKD 3a Mild to moderate loss of kidney 45-59 function CKD 3b Moderate to severe loss of 30-44 of kindey function CKD 4 Severe loss of kidney function 15-29 CKD 5 Kidney failure <15 Note: (go live 2024) the eGFR calculation was updated to the 2020 CKD-EPI creatinine equation without a race factor to calculate the eGFR results. Performed By: #### C LYNSEY, W, MG, ADIFF, GFR, CMP, ANEU #### [address] [address] .NEUABSon 02-21-2025 Neutrophil, Absolute 4.0 10 3/mcL Normal 2.3-8.1 [facility] Comment on above: Performed By: #### C MD LYNSEYW, MG, ADIFF, GFR, CMP, ANEU #### [address] [address] B12on 02-21-2025 Cobalamin (Vitamin B12) [Mass/Vol] 1629 pg/mL High 211-911 [facility] Comment on above: Performed By: #### C MD LYNSEYW, MG, ADIFF, GFR, CMP, ANEU #### [address] [address] BMPon 02-21-2025 BUN/Creatinine Ratio 15 ratio Normal 7-27 [facility] Comment on above: Performed By: #### C KYUNG MENON, MG, ADIFF, GFR, CMP, ANEU #### [address] [address] Calcium [Mass/Vol] 9.3 mg/dL Normal 8.4-10.2 [facility] Comment on above: Performed By: #### C LYNSEY, W, MG, ADIFF, GFR, CMP, ANEU #### [address] [address] Chloride [Moles/Vol] 106 mmol/L Normal 98-107 [facility] Comment on above: Performed By: #### C KYUNG MENON, MG, ADIFF, GFR, CMP, ANEU #### [address] [address] CO2 [Moles/Vol] 29 mmol/L Normal 23-31 [facility] Comment on above: Performed By: #### C KYUNG MENON, MG, ADIFF, GFR, CMP, ANEU #### [address] [address] Creatinine [Mass/Vol] 2.09 mg/dL High 0.67-1.17 [facility] Comment on above: Performed By: #### C KYUNG MENON, MG, ADIFF, GFR, CMP, ANEU #### [address] [address] Electrolyte Balance 6.0 mEq/L Normal 4.0-15.0 [facility] Comment on above: Performed By: #### C KYUNG MENON, MG, ADIFF, GFR, CMP, ANEU #### [address] [address] Glucose [Mass/Vol] 110 mg/dL Normal 83-110 [facility] Comment on above: Performed By: #### C KYUNG MENON, MG, ADIFF, GFR, CMP, ANEU #### [address] [address] Potassium [Moles/Vol] 6.0 mmol/L High 3.5-5.1 [facility] Comment on above: Performed By: #### C KYUNG MENON, MG, ADIFF, GFR, CMP, ANEU #### [address] [address] Sodium [Moles/Vol] 141 mmol/L Normal 136-145 [facility] Comment on above: Performed By: #### C KYUNG MENON, MG, ADIFF, GFR, CMP, ANEU #### [place] [address] Urea nitrogen [Mass/Vol] 32 mg/dL High 7-18 [facility] Comment on above: Performed By: #### C KYUNG MENON, MG, ADIFF, GFR, CMP, ANEU #### [place] [id number] CBCon 02-21-2025 Erythrocyte distribution width (RBC) [Ratio] 15.6 % High 11.5-15.5 [facility] Comment on above: Performed By: #### C KYUNG MENON, MG, ADIFF, GFR, CMP, ANEU #### [place] [address] Hematocrit (Bld) [Volume fraction] 32.6 % Low 40.0-52.0 [facility] Comment on above: Performed By: #### C KYUNG MENON, MG, ADIFF, GFR, CMP, ANEU #### [place] [address] Hgb 10.9 G/dL Low 13.0-17.5 [facility] Comment on above: Performed By: #### C KYUNG MENON, MG, ADIFF, GFR, CMP, ANEU #### [place] [address] MCH (RBC) [Entitic mass] 29.8 pg Normal 27.0-33.0 [facility] Comment on above: Performed By: #### C KYUNG MENON, MG, ADIFF, GFR, CMP, ANEU #### [place] [address] MCHC 33.3 G/dL Normal 32.0-36.0 [facility] Comment on above: Performed By: #### C KYUNG MENON, MG, ADIFF, GFR, CMP, ANEU #### [place] [address] MCV (RBC) [Entitic vol] 89.5 fL Normal 81.0-100.0 [facility] Comment on above: Performed By: #### C KYUNG MENON, MG, ADIFF, GFR, CMP, ANEU #### [address] [address] Platelet 99 10 3/mcL Low 150-450 [facility] Comment on above: Performed By: #### C LYNSEY, KYUNG, MG, ADIFF, GFR, CMP, ANEU #### [address] [address] Platelet mean volume (Bld) [Entitic vol] 7.3 fL Normal 6.4-10.5 [facility] Comment on above: Performed By: #### C LYNSEY, KYUNG, MG, ADIFF, GFR, CMP, ANEU #### [address] [address] RBC 3.65 10 6/mcL Low 4.50-6.00 [facility] Comment on above: Performed By: #### C LYNSEY, KYUNG, MG, ADIFF, GFR, CMP, ANEU #### [address] [address] WBC 6.0 10 3/mcL Normal 4.5-10.8 [facility] Comment on above: Performed By: #### C LYNSEY, KYUNG, MG, ADIFF, GFR, CMP, ANEU #### [address] [address] Jimmy 02-21-2025 Fasting Y Yes Normal [facility] Comment on above: Performed By: #### C LYNSEY, KYUNG, MG, ADIFF, GFR, CMP, ANEU #### [address] [address] LABORATORYOrdered By: SYSTEM SYSTEM on 02-21-2025 25-hydroxyvitamin D3 [Mass/Vol] 32.7 ng/mL Invalid Interpretation Code AO ADM SS Comment on above: Interpretive Data: I nterpretive Values Based on Total 25(OH) Vitamin D: Deficient <20 ng/mL Insufficient 20 - <30 ng/mL Sufficient 30-100 ng/mL Basophils (Bld) [#/Vol] 0.0 103/mcL Normal 0.0 - 0.3 10^3/mcL AO Workflow SS Basophils/100 WBC (Bld) 0.6 % Normal 0.0 - 2.5 % AO Workflow SS Calcium [Mass/Vol] 9.3 mg/dL Normal 8.4 - 10. 2 mg/dL AO ADM SS Chloride [Moles/Vol] 106 mmol/L Normal 98 - 10 7 mmol/L AO ADM SS CO2 [Moles/Vol] 29 mmol/L Normal 23 - 31 mmol/L AO ADM SS Cobalamin (Vitamin B12) [Mass/Vol] 1629 pg/mL High 211 - 911 pg/mL AH ADM SS Creatinine [Mass/Vol] 2.09 mg/dL High 0.67 - 1.17 mg/dL AO ADM SS Electrolyte Balance 6.0 mEq/L Normal 4.0 - 15 .0 mEq/L AO ADM SS Eosinophil, Absolute 0.1 103/mcL Normal 0.0 - 0 .7 10^3/mcL AO Workflow SS Eosinophils/100 WBC (Bld) 2.4 % Normal 0.0 - 6.0 % AO Workflow SS Erythrocyte distribution width (RBC) [Ratio] 15.6 % High 11.5 - 15.5 % AO Workflow SS Estimated Glomerular Filtration Rate 31 ml/min/1.73sqm Invalid Interpretation Code AO Chemistry S Comment on above: Interpretive Data: Stages of Chronic Kidney Disease (CKD) Stage Description eGFR(ml/min/1.73 sq.m.) CKD 1 Normal kidney function or >=90 normal kindney function with possible kidney damage (ex. Proteinuria) CKD 2 Kidney damage with mild loss 60-89 of kidney function CKD 3a Mild to moderate loss of kidney 45-59 function CKD 3b Moderate to severe loss of 30-44 of kindey function CKD 4 Severe loss of kidney function 15-29 CKD 5 Kidney failure <15 Note: (go live 2024) the eGFR calculation was updated to the 2020 CKD-EPI creatinine equation without a race factor to calculate the eGFR results. Glucose [Mass/Vol] 110 mg/dL Normal 83 - 110 mg/dL AO ADM SS Hematocrit (Bld) [Volume fraction] 32.6 % Low 40.0 - 52.0 % AO Workflow SS Hemoglobin (Bld) [Mass/Vol] 10.9 G/dL Low 13.0 - 17.5 G/dL AO Workflow SS Lymphocytes (Bld) [#/Vol] 1.5 103/mcL Normal 0.9 - 4.3 10^3/mcL AO Workflow SS Lymphocytes/100 WBC (Bld) 24.4 % Normal 20.0 - 40.0 % AO Workflow SS Magnesium [Mass/Vol] 1.9 mg/dL Normal 1.8 - 2 .4 mg/dL AO ADM SS MCH (RBC) [Entitic mass] 29.8 pg Normal 27. 0 - 33.0 pg AO Workflow SS MCHC 33.3 G/dL Normal 32.0 - 36.0 G/dL AO Workflow SS MCV (RBC) [Entitic vol] 89.5 fL Normal 81.0 - 100.0 fL AO Workflow SS Monocytes (Bld) [#/Vol] 0.4 103/mcL Normal 0.1 - 1.4 10^3/mcL AO Workflow SS Monocytes/100 WBC (Bld) 6.1 % Normal 2.0 - 13.0 % AO Workflow SS Neutrophils (Bld) [#/Vol] 4.0 103/mcL Normal 2.3 - 8.1 10^3/mcL AO Workflow SS Neutrophils/100 WBC (Bld) 66.5 % Normal 50.0 - 75.0 % AO Workflow SS Parathyrin.intact [Mass/Vol] 170.3 pg/mL High 18.5 - 88.0 pg/mL AH ADM SS Platelet mean volume (Bld) [Entitic vol] 7.3 fL Normal 6.4 - 10.5 fL AO Workflow SS Platelets (Bld) [#/Vol] 99 103/mcL Low 150 - 450 10^3/mcL AO Workflow SS Potassium [Moles/Vol] 6.0 mmol/L High 3.5 - 5.1 mmol/L AO ADM SS RBC (Bld) [#/Vol] 3.65 106/mcL Low 4.50 - 6.00 10^6/mcL AO Workflow SS Sodium [Moles/Vol] 141 mmol/L Normal 136 - 145 mmol/L AO ADM SS Urea nitrogen [Mass/Vol] 32 mg/dL High 7 - 18 mg/dL AO ADM SS Urea nitrogen/Creatinine [Mass ratio] 15 ratio Normal 7 - 27 ratio AO ADM SS WBC (Bld) [#/Vol] 6.0 103/mcL Normal 4.5 - 10.8 10^3/mcL AO Workflow SS LABORATORYOrdered By: Jannie Bhakta on 02-21-2025 Fasting (LC) Y Yes (02/21/25 1:14 PM) Normal AO Sendouts SS LABORATORYOrdered By: LABCOMaria E Lopez CONTRIBUTOR_SYSTEM on 02-21-2025 Gastrin (LC) 113 pg/mL Invalid Interpretation Code AO Sendouts SS Comment on above: Result Comment: [employer] [facility] Immulite 2000 Immunochemiluminometric assay (ICMA) Values obtained with different assay methods or kits cannot be used interchangeably. Results cannot be interpreted as absolute evidence of the presence or absence of malignant disease. Performed At: [facility] [id number] Jacques Ferrell MD Ph:[phone] Intrinsic Factor Abs (LC) 0.9 Au/mL Invalid Interpretation Code 0.0-1.1 AO Sendouts SS Comment on above: Result Comment: Perf ormed At: [facility] [id number] Jacques Ferrell MD Ph:[phone] MGon 02-21-2025 Magnesium [Mass/Vol] 1.9 mg/dL Normal 1.8-2.4 [facility] Comment on above: Performed By: #### C KYUNG MENON, MG, ADIFF, GFR, CMP, ANEU #### [address] [address] PTHon 02-21-2025 PTH, Intact 170.3 pg/mL High 18.5-88.0 [facility] Comment on above: Performed By: #### C KYUNG MENON, MG, ADIFF, GFR, CMP, ANEU #### [address] [address] VIDHon 02-21-2025 Vit. D 25-Hydroxy 32.7 ng/mL Normal [facility] Comment on above: Result Comment: Inte rpretive Values Based on Total 25(OH) Vitamin D: Deficient <20 ng/mL Insufficient 20 - <30 ng/mL Sufficient 30-100 ng/mL Performed By: #### C KYUNG MENON, MG, ADIFF, GFR, CMP, ANEU #### [address] [address] Cardiology Visit Reporton Cardiology Visit Report [facility] [address] [place] [address]. [address] [place], [place] [id number] OFFICE VISIT Date of Service: 02/16/25 MR#: [id number] Acct: [id number] Name: EKATERINA RANDHAWA Rep #: [id number] : 1940 Provider: DG Vail Age/Sex: 84/M Location: [facility] [place] Status: Signed HPI HPI History of Present Illness Details: This is an 84-year-old white male who presents today for outpatient cardiovascular follow-up with a history of underlying CAD, status post non-STEMI, status post CABG (April 2018 with a SANCHEZ to the LAD, SVG sequential graft to the second and third diagonal branches, SVG graft to OM, and SVG graft to the acute marginal branch), postoperative atrial fibrillation, thoracic aortic aneurysm, hyperlipidemia, hypertension, and diabetes mellitus. From a cardiac standpoint, patient is doing well. He does not have any chest discomfort/heaviness/tigh tness. He does not have any worsening symptoms of shortness of breath. He denies any PND. He does not have any orthopnea. He does not have any symptoms of congestive heart failure. He does not have any palpitations that he is aware of. He does not have any lightheadedness or dizziness. He does not have any near-syncope or syncope. He does have some swelling in his left leg this is chronic. He does not have any symptoms of claudication. He has had some falling this is from his balance. Intake Vital Signs 03/02/24 08:13 11/29/24 10:31 02/16/25 15:34 Height 5 ft 9 in 5 ft 9 in 5 ft 9 in Weight: 206 lb BMI 30.4 BP 152/72 H Blood Pressure Location Lt brachial Position Sitting Respiration 18 Pulse 71 Pulse Source NIBP Intake Visit Reasons: 1 Y FU/PREV PFM [employer] Required: No Accompanied by: Daughter Is patient in pain?: No Allergies No Known Allergies Allergy (Verified 02/16/25 15:40) Antibiotics Adverse Reaction (Severe, Uncoded 02/16/25 15:40) C-diff Medications ???Medication ???Instructions ???Recorded ???Confirmed ???Type pantoprazole 40 mg tablet,delayed 40 mg PO DAILY acid reflux #30 ta bs 06/16/18 02/16/25 Rx release metoprolol succinate 100 mg 100 mg PO BID blood pressure #180 06/23/19 02/16/25 Rx tablet,extended release 24 hr tabs acetaminophen 325 mg tablet 650 mg PO Q6H PRN 02/25/21 5 History aspirin 81 mg chewable tablet 81 mg PO QHS heart health 02/25/21 02/16/25 History Blood Pressure Machine/Cuff #1 ea 03/09/22 11/26/22 Rx atorvastatin 40 mg tablet 40 mg PO QHS CHOLESTEROL 03/02/23 02/16/25 History doxazosin 4 mg tablet (Cardura) 4 mg PO QHS 03/02/23 02/16/25 Hist ory melatonin 3 mg tablet 6 mg PO QHS PRN 03/02/24 02/16/25 History sodium zirconium cyclosilicate 10 10 g PO QDAY 03/02/24 02/16/25 Hi story gram oral powder packet ([facility]) lisinopril 20 mg tablet 20 mg PO BID #180 tabs 09/19/24 Rx carbidopa 25 mg-levodopa 100 mg 2 tab PO TID #540 tabs 11/29/24 Rx tablet ropinirole 0.5 mg tablet 0.5 mg PO QHS #7 tabs 11/29/24 Rx ropinirole 1 mg tablet 1 mg PO QHS #30 tabs 11/29/2401/20 Rx Ejection fraction %: 55 Have you fallen in the past year?: Yes (Trip and fall) 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 Essential hypertension Atherosclerotic heart disease of [place] coronary artery without angina pectoris Postoperative atrial fibrillation Ischemic cardiomyopathy Paroxysmal atrial fibrillation VRE (vancomycin resistant enterococcus) culture positive Gastroparesis Gastric distention NG tube kinked Gastric outlet obstruction Encounter for nasogastric (NG) tube placement GERD (gastroesophageal reflux disease) Acute kidney injury Atrial fibrillation BPH (benign prostatic hyperplasia) Hyperlipidemia Diabetes mellitus type 2 in obese Left ventricular dysfunction Coronary artery disease NSTEMI (non-ST elevated myocardial infarction) Chest pain Surgical History H/O left wrist surgery History of coronary artery bypass surgery ( 05/13/18) History of cataract surgery History of knee replacement, total Family History Father Myocardial infarction Social History Smoking Status: Former smoker Tobacco: How many years used: 8 second hand exposure: No alcohol intake: current details: rarely substance use type: does not use arelis/rastafarian: [place] seatbelt use: always ROS Const Const: Positive for fatigue (Increasing last couple months, relates to age); Negative for weakness Eyes Eyes: Negative for change in vision ENT ENT: Negative for dizziness or balance problems Cardio (more content not included)... Normal [facility] Bilirubin directOrdered By: Maryuri Begum on 02-08-2025 Bilirubin.direct [Mass/Vol] 0.26 mg/dL 0.00-0.30 [facility] Bilirubin, totalOrdered By: Maryuri Begum on 02-08-2025 Bilirubin [Mass/Vol] 0.48 mg/dL 0.00-1.30 [facility] Calculated very low density lipoprotein (VLDL) cholesterol measurementOrdered By: Maryuri Begum on 02-08-2025 Calculated very low density lipoprotein (VLDL) cholesterol measurement 18 mg/dL 5-40 [facility] LDL calc ser/plasOrdered By: Maryuri Begum on 02-08-2025 Cholesterol in LDL [Mass/Vol] 25 mg/dL [facility] Comment on above: Utyhqmjekr=467-169 m g/dL & Higher Qwzw=332 mg/dL or greater Laboratory - Chemistry and C hemistry - challengeOrdered By: Maryuri Begum on 02-08-2025 AST [Catalytic activity/Vol] 16 U/L <38 [facility] Lipid Profileon 02-08-2025 CHOL:HDL 2.13 Normal [facility] Comment on above: Performed By: #### L 500.6749, L500.4338 #### [facility] [address] [place], [address] Cholesterol [Mass/Vol] 80 mg/dL Normal <=200 [facility] Comment on above: Result Comment: Chol esterol level, Desirable <200 mg/dL Borderline high cholesterol 200-239 mg/dL High cholesterol >=240 mg/dL Recommendations of the NCEP Adult Treatment Panel for the following risk-cutoff thresholds for the [place] population. Performed By: #### L 500.3400, L500.4100 #### [facility] [address] [place], [address] Cholesterol in HDL [Mass/Vol] 38 mg/dL Low [facility] Comment on above: Result Comment: Daphney onal Cholesterol Education Program (NCEP) guidelines: <40 mg/dL: Low HDL-cholesterol (major risk factor for CHD) >= 60 mg/dL: High HDL-cholesterol (negative risk factor for CHD) HDL-cholesterol is affected by a number of factors, e.g. smoking, exercise, hormones, sex and age. Performed By: #### L 500.3400, L500.4100 #### [facility] [address] [place], [address] Cholesterol in LDL [Mass/Vol] 25 mg/dL Normal [facility] Comment on above: Result Comment: Bord xacpvu=668-102 mg/dL Higher Rlcz=051 mg/dL or greater Performed By: #### L 500.3400, L500.4100 #### [facility] [address] [place], [address] Cholesterol in VLDL [Mass/Vol] 18 mg/dL Normal 5-40 [facility] Comment on above: Performed By: #### L 500.3400, L500.4100 #### [facility] [address] [place], [address] Triglyceride [Mass/Vol] 89 mg/dL Normal [facility] Comment on above: Result Comment: The drugs N-Acetylcysteine and Metamizole may falsely depress this assay. Normal range: <150 mg/dL Borderline High: 150-199 mg/dL High: 200-499 mg/dL Very High: >500 mg/dL Performed By: #### L 500.3400, L500.4100 #### [facility] [address] [place], [address] Liver Profileon 02-08-2025 Albumin [Mass/Vol] 3.9 g/dL Normal 3.4-4.8 [facility] Comment on above: Performed By: #### L 500.3400, L500.4100 #### [facility] [address] [place], [address] ALK PHOS 89 U/L Normal 40-129 [facility] Comment on above: Performed By: #### L 500.3400, L500.4100 #### [facility] [address] [place], [address] ALT [Catalytic activity/Vol] 6 U/L Normal <=46 [facility] Comment on above: Performed By: #### L 500.3400, L500.4100 #### [facility] [address] [place], [address] AST [Catalytic activity/Vol] 16 U/L Normal <=37 [facility] Comment on above: Performed By: #### L 500.3400, L500.4100 #### [facility] [address] [place], [address] Bilirubin [Mass/Vol] 0.48 mg/dL Normal 0.00-1.30 [facility] Comment on above: Performed By: #### L 500.3400, L500.4100 #### [facility] [address] [place], [address] Bilirubin.direct [Mass/Vol] 0.26 mg/dL Normal 0.00-0.30 [facility] Comment on above: Performed By: #### L 500.3400, L500.4100 #### [facility] [address] [place], [address] Globulin (S) [Mass/Vol] 2.5 g/dL Normal 2.2-4.2 [facility] Comment on above: Performed By: #### L 500.3400, L500.4100 #### [facility] [address] [place], [place], [id number] T PROT 6.5 g/dL Normal 5.9-8.4 [facility] Comment on above: Performed By: #### L 500.3400, L500.4100 #### [facility] [address] [place], [place], [address] Screening total cholesterol/ high density lipoprotein (HDL) cholesterol ratioOrdered By: Maryuri Begum on 02-08-2025 Cholesterol.total/Choles terol in HDL [Mass ratio] 2.13 {ratio} [facility] Serum globulin measurementOr dered By: Maryuri Begum on 02-08-2025 Globulin (S) [Mass/Vol] 2.5 g/dL 2.2-4.2 [facility] Serum or plasma alanine mora otransferase (ALT) measurementOrdered By: Maryuri Begum on 02-08-2025 ALT [Catalytic activity/Vol] 6 U/L <47 [facility] Serum or plasma albumin francisco urement (mass/volume)Ordered By: Maryuri Begum on 02-08-2025 Albumin [Mass/Vol] 3.9 g/dL 3.4-4.8 [facility] Serum or plasma alkaline edna sphatase measurementOrdered By: Maryuri Begum on 02-08-2025 ALP [Catalytic activity/Vol] 89 U/L 40-129 [facility] Serum or plasma cholesterol in HDL measurement (mass/volume)Ordered By: Maryuri Begum on 02-08-2025 Cholesterol in HDL [Mass/Vol] 38 mg/dL Low >40 [facility] Comment on above: National Cholesterol Education Program (NCEP) guidelines:<40 mg/dL: Low HDL-cholesterol (major risk factor for CHD)>= 60 mg/dL: High HDL-cholesterol (negative risk factor for CHD)HDL-cholesterol is affected by a number of factors, e.g. smoking, exercise, hormones, sex and age. Serum or plasma cholesterol measurement (mass/volume)Ordered By: Maryuri Begum on 02-08-2025 Cholesterol [Mass/Vol] 80 mg/dL <201 [facility] Comment on above: Cholesterol level, D esirable <200 mg/dLBorderline high cholesterol 200-239 mg/dLHigh cholesterol >=240 mg/dLRecommendations of the NCEP Adult Treatment Panel for the following risk-cutoff thresholds for the [place] population. Total proteinOrdered By: Terell Begum on 02-08-2025 Protein [Mass/Vol] 6.5 g/dL 5.9-8.4 [facility] Triglycerides measurementOrd ered By: Maryuri Shy on 02-08-2025 Triglyceride [Mass/Vol] 89 mg/dL <199 [facility] Comment on above: The drugs N-Acetylcy steine and Metamizole may falsely depress this assay. Normal range: <150 mg/dLBorderline High: 150-199 mg/dLHigh: 200-499 mg/dLVery High: >500 mg/dL Neurology Visit Reporton Neurology Visit Report [facility] [address], [address] [place] [address] OFFICE VISIT Date of Service: 11/29/24 MR#: [id number] Acct: [id number] Name: EKATERINA RANDHAWA Rep #: [id number] : 1940 Provider: Dr. Braxton garg MD Age/Sex: 84/M Location: [facility] Status: Signed HPI [facility] Chief Complaint: Details: Interim History: Ekaterina returns for follow-up visit. He has a history of hypertension, diabetes mellitus, benign prostatic hypertrophy status post TURP, myocardial infarction status post CABG in 2017, hyperlipidemia and stage IV renal insufficiency. He is accompanied by his daughter. Since 2019, he has had some gait difficulty. His gait has become short stepped and shuffling. He has been using a cane. He has had difficulty arising from his bed in the morning and and arising from a chair. He denied having numbness or focal weakness however he reported having fatigue and vague generalized weakness. He had a right total knee replacement. He denied having pain in the lower extremities, neck or lower back. Since the 2021, he has had a bilateral hand tremor that is present at rest and more commonly seen at night; his tremor has subsided since increasing his dose of carbidopa/levodopa 25/100 to 2 tablets 3 times daily in 2022. He experiences occasional diplopia. He has had hypophonia since 2017 (he stated that this began during his hospitalization for his [place]/CABG and may have been procedure related). He has occasional swallowing difficulties since around 2017; he compensates for this by taking small bites. He stated that over recent years his handwriting has become sloppier. He experiences occasional disequilibrium. He has chronic bilateral hearing loss. He reported having some memory difficulty however it appears that from a cognitive standpoint he remains overall independent. He does not have any history of symptomatic stroke. 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 He takes aspirin 81 mg daily, clopidogrel 75 mg daily and atorvastatin. He has had nystagmus. He has had urinary incontinence since at least 2007. Mini-Mental status exam score in November 2022 was 22/30. He is taking carbidopa/levodopa and has had some improvement of his mobility. He did not feel that physical therapy was of benefit for his parkinsonian symptoms. A prior B12 injection was of some benefit for his fatigue. He has had nighttime restlessness of the legs since early 2023. He feels the need to move his legs at night and his leg discomfort diminishes when he arises to walk. Physical Exam: Neuro: The patient is awake; he is bradyphrenic; he is oriented to day of the week; he is able to subtract 7 from 100; motor strength is 5 -/5 in the quadriceps bilaterally and 5/5 in the foot dorsiflexors bilaterally; no rigidity is noted in the wrists; no tremor is noted at rest; a marginal fine left hand tremor is noted when arms are extended; gait is slow and short stepped Neck: No bruits Heart: Regular rate and rhythm; a murmur is auscultated On exam 11/26/2022, he had exhibited mild cogwheel rigidity in the wrists with distraction; no tremor was noted; vertical nystagmus was noted on upward gaze. Supplemental Info EKG (05/05/2020): Sinus rhythm; right bundle branch block and left anterior fascicular block. Heart rate [address] (05/05/2020): Findings: No parenchymal or extra-axial intracranial hemorrhage, mass effect or midline shift is seen. No hydrocephalus. There is moderate cerebral cortical atrophy greater on the left side. Mild calcification of the intracranial arteries. No displaced or depressed calvarial fracture. There is a right parietal extracranial soft tissue laceration. There is opacification and mucosal thickening in the left ethmoid and right frontal sinuses. The mastoids are clear. Impression: No acute or posttraumatic intracranial abnormality. Right parietal extracranial laceration. Cerebral atrophy. Liver profile, lipid profile (02/25/2021): HDL 34 (low), VLDL 20 (normal), LDL 39 (normal), cholesterol 93 (normal), triglycerides 99 (normal) Cardiac echo (03/12/2021): The study was technically difficult. Segmental dysfunction with preserved ejection fraction (see wall motion). The estimated ejection fraction is 55 %. The left atrium is mildly enlarged. There is moderate to severe mitral annular calcification. Mild focal mitral valve calcification of the anterior leaflet. Trivial mitral valve insufficiency. Mild tricuspid valve insufficiency. Mild (1+) aortic valve insufficiency. Right ventricular systolic pressure estimated to be 34 mmHg. Transmitral diastolic flow velocities suggest diastolic dysfunction (pseudonormal (more content not included)... Normal [facility] Urgent Care Visit Reporton 0 11-16-2024 Urgent Care Visit Report [facility] [address], [address] [place] [address] OFFICE VISIT Date of Service: 11/16/24 MR#: [id number] Acct: [id number] Name: EKATERINA RANDHAWA Rep #: [id number] : 1940 Provider: DG Manning Age/Sex: 84/M Location: [facility] [place] Status: Signed Intake Vital Signs 03/02/24 08:13 11/16/24 10:19 Height 5 ft 9 in Weight: 212 lb 192 lb 8 oz BMI 31.3 BP 131/71 H 120/76 Blood Pressure Location Lt brachial Position Sitting Sitting Respiration 18 Pulse 61 68 Pulse Source NIBP Temp 97.9 F Temp Source Oral Pulse Oximetry (%) 97 Oxygen Delivery Method room air Intake Visit Reasons: SWOLLEN R ANKLE Chief Complaint: Accompanied by: Daughter Allergies No Known Allergies Allergy (Verified 11/16/24 10:16) Antibiotics Adverse Reaction (Severe, Uncoded 11/16/24 10:16) C-diff Medications ???Medication ???Instructions ???Recorded ???Confirmed ???Type pantoprazole 40 mg tablet,delayed 40 mg PO DAILY acid reflux #30 ta bs 06/16/18 11/16/24 Rx release metoprolol succinate 100 mg 100 mg PO BID blood pressure #180 06/23/19 11/16/24 Rx tablet,extended release 24 hr tabs acetaminophen 325 mg tablet 650 mg PO Q6H PRN 02/25/21 4 History aspirin 81 mg chewable tablet 81 mg PO QHS heart health 02/25/21 11/16/24 History Blood Pressure Machine/Cuff #1 ea 03/09/22 11/26/22 Rx calcitriol 0.5 mcg capsule 0.5 mcg PO DAILY 03/09/22 03/02/24 History atorvastatin 40 mg tablet 40 mg PO QHS CHOLESTEROL 03/02/23 11/16/24 History doxazosin 4 mg tablet (Cardura) 4 mg PO QHS 03/02/23 11/16/24 Hist ory carbidopa 25 mg-levodopa 100 mg 2 tab PO TID #540 tabs 01/18/24 Rx tablet melatonin 3 mg tablet 6 mg PO QHS PRN 03/02/24 11/16/24 History sodium zirconium cyclosilicate 10 10 g PO QDAY 03/02/24 11/16/24 Hi story gram oral powder packet (keldc) lisinopril 20 mg tablet 20 mg PO BID #180 tabs 09/19/24 Rx Have you fallen in the past year?: No Nurse's Note: Patient Right ankle is swollen and bruised. Patient states no pain unless you take both hands and squeeze it. Patient states this has been going on for a couple weeks off and on. Patient states he has RLS. 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 Essential hypertension Atherosclerotic heart disease of [place] coronary artery without angina pectoris Postoperative atrial fibrillation Ischemic cardiomyopathy Paroxysmal atrial fibrillation VRE (vancomycin resistant enterococcus) culture positive Gastroparesis Gastric distention NG tube kinked Gastric outlet obstruction Encounter for nasogastric (NG) tube placement GERD (gastroesophageal reflux disease) Acute kidney injury Atrial fibrillation BPH (benign prostatic hyperplasia) Hyperlipidemia Diabetes mellitus type 2 in obese Left ventricular dysfunction Coronary artery disease NSTEMI (non-ST elevated myocardial infarction) Chest pain Surgical History H/O left wrist surgery History of coronary artery bypass surgery ( 05/13/18) History of cataract surgery History of knee replacement, total Family History Father Myocardial infarction Social History Smoking Status: Former smoker Tobacco: How many years used: 8 second hand exposure: No alcohol intake: current details: rarely substance use type: does not use arelis/rastafarian: [place] seatbelt use: always HPI HPI Chief Complaint: Details: EKATERINA RANDHAWA, is a 84 M who presents to the office today for concern for possible right ankle injury. Patient states that he does have restless leg and hit his foot on the side of his bed and nightstand. Patient states that he does have an appointment with his PCP in 2 months for further evaluation and treatment of his restless leg. He states that the injury occurred 2 weeks ago and has had some bruising at the bottom of his foot since then. He has been able to walk like normal without a change to his gait. Patient denies numbness, tingling or loss of range of motion. No other associated symptoms or alleviating/aggravating factors. ROS Const Constitutional: No other (6 system ROS completed with pertinent findings in the HPI otherwise normal.) Exam Const General: cooperative and healthy appearing Resp Effort Inspection: normal respiratory effort Cardio Rate: regular rate Skin General: no rashes or lesions noted Neuro General: patient alert Extrem Other: Ecchymosis medial right foot without obvious deformity. Soft tissue swelling ankle and calf. Psych Appearance: grossly n (more content not included)... Normal [facility] .Auto Diffon 11-01-2024 Basophil, Absolute 0.0 10 3/mcL Normal 0.0-0.2 [facility] Comment on above: Performed By: #### C BC, MDW, MG, ADIFF, GFR, CMP, ANEU #### [facility] [address] [place], [place] [address] Basophils/100 WBC (Bld) 0.6 % Normal 0.0-2.5 [facility] Comment on above: Performed By: #### C LYNSEY, W, MG, ADIFF, GFR, CMP, ANEU #### [address] [address] Eosinophil, Absolute 0.2 10 3/mcL Normal 0.0-0.7 [facility] Comment on above: Performed By: #### C LYNSEY, W, MG, ADIFF, GFR, CMP, ANEU #### [address] [address] Eosinophils/100 WBC (Bld) 2.8 % Normal 0.0-7.0 [facility] Comment on above: Performed By: #### C LYNSEY, KYUNG, MG, ADIFF, GFR, CMP, ANEU #### [address] [address] Lymphocyte, Absolute 1.6 10 3/mcL Normal 0.9-4.3 [facility] Comment on above: Performed By: #### C LYNSEY, W, MG, ADIFF, GFR, CMP, ANEU #### [address] [address] Lymphocytes/100 WBC (Bld) 25.7 % Normal 20.0-40.0 [facility] Comment on above: Performed By: #### C KYUNG MENON, MG, ADIFF, GFR, CMP, ANEU #### [address] [address] Monocyte, Absolute 0.4 10 3/mcL Normal 0.1-1.4 [facility] Comment on above: Performed By: #### C LYNSEY, KYUNG, MG, ADIFF, GFR, CMP, ANEU #### [address] [address] Monocytes/100 WBC (Bld) 6.6 % Normal 2.0-13.0 [facility] Comment on above: Performed By: #### C LYNSEY, W, MG, ADIFF, GFR, CMP, ANEU #### [address] [address] Neutrophils/100 WBC (Bld) 64.3 % Normal 50.0-75.0 [facility] Comment on above: Performed By: #### C KYUNG MENON, MG, ADIFF, GFR, CMP, ANEU #### [address] [address] .GFRon 11-01-2024 Estimated Glomerular Filtration Rate 27 ml/min/1.73sqm Normal [facility] Comment on above: Result Comment: Stages of Chronic Kidney Disease (CKD) Stage Description eGFR(ml/min/1.73 sq.m.) CKD 1 Normal kidney function or >=90 normal kindney function with possible kidney damage (ex. Proteinuria) CKD 2 Kidney damage with mild loss 60-89 of kidney function CKD 3a Mild to moderate loss of kidney 45-59 function CKD 3b Moderate to severe loss of 30-44 of kindey function CKD 4 Severe loss of kidney function 15-29 CKD 5 Kidney failure <15 Note: (go live 2024) the eGFR calculation was updated to the 2020 CKD-EPI creatinine equation without a race factor to calculate the eGFR results. Performed By: #### C KYUNG MENON, MG, ADIFF, GFR, CMP, ANEU #### [address] [address] .NEUABSon 11-01-2024 Neutrophil, Absolute 4.0 10 3/mcL Normal 2.3-8.1 [facility] Comment on above: Performed By: #### C KYUNG MENON, MG, ADIFF, GFR, CMP, ANEU #### [address] [address] BMPon 11-01-2024 BUN/Creatinine Ratio 13 ratio Normal 7-27 [facility] Comment on above: Performed By: #### C KYUNG MENON, MG, ADIFF, GFR, CMP, ANEU #### [address] [address] Calcium [Mass/Vol] 9.7 mg/dL Normal 8.4-10.2 [facility] Comment on above: Performed By: #### C KYUNG MENON, MG, ADIFF, GFR, CMP, ANEU #### [address] [address] Chloride [Moles/Vol] 108 mmol/L High 98-107 [facility] Comment on above: Performed By: #### C KYUNG MENON, MG, ADIFF, GFR, CMP, ANEU #### [address] [address] CO2 [Moles/Vol] 29 mmol/L Normal 23-31 [facility] Comment on above: Performed By: #### C KYUNG MENON, MG, ADIFF, GFR, CMP, ANEU #### [address] [address] Creatinine [Mass/Vol] 2.31 mg/dL High 0.70-1.30 [facility] Comment on above: Result Comment: Test ing performed on Siemens Dimension EXL analyzer using a modified kinetic Sonia technique. Performed By: #### C KYUNG MENON, MG, ADIFF, GFR, CMP, ANEU #### [address] [address] Electrolyte Balance 8.0 mEq/L Normal 4.0-15.0 [facility] Comment on above: Performed By: #### C KYUNG MENON, MG, ADIFF, GFR, CMP, ANEU #### [address] [address] Glucose [Mass/Vol] 111 mg/dL High 83-110 [facility] Comment on above: Performed By: #### C KYUNG MENON, MG, ADIFF, GFR, CMP, ANEU #### [address] [address] Potassium [Moles/Vol] 5.0 mmol/L Normal 3.5-5.1 [facility] Comment on above: Performed By: #### C KYUNG MENON, MG, ADIFF, GFR, CMP, ANEU #### [address] [address] Sodium [Moles/Vol] 145 mmol/L Normal 136-145 [facility] Comment on above: Performed By: #### C KYUNG MENON, MG, ADIFF, GFR, CMP, ANEU #### [address] [address] Urea nitrogen [Mass/Vol] 30 mg/dL High 7-18 [facility] Comment on above: Performed By: #### C KYUNG MENON, MG, ADIFF, GFR, CMP, ANEU #### [place] [id number] CBCon 11-01-2024 Erythrocyte distribution width (RBC) [Ratio] 16.6 % High 11.5-15.5 [facility] Comment on above: Performed By: #### C KYUNG MENON, MG, ADIFF, GFR, CMP, ANEU #### [place] [address] Hematocrit (Bld) [Volume fraction] 34.4 % Low 40.0-52.0 [facility] Comment on above: Performed By: #### C KYUNG MENON, MG, ADIFF, GFR, CMP, ANEU #### [place] [address] Hgb 11.5 G/dL Low 13.0-17.5 [facility] Comment on above: Performed By: #### C KYUNG MENON, MG, ADIFF, GFR, CMP, ANEU #### [place] [address] MCH (RBC) [Entitic mass] 29.3 pg Normal 27.0-33.0 [facility] Comment on above: Performed By: #### C KYUNG MENON, MG, ADIFF, GFR, CMP, ANEU #### [place] [address] MCHC 33.4 G/dL Normal 32.0-36.0 [facility] Comment on above: Performed By: #### C KYUNG MENON, MG, ADIFF, GFR, CMP, ANEU #### [place] [address] MCV (RBC) [Entitic vol] 87.9 fL Normal 81.0-100.0 [facility] Comment on above: Performed By: #### C KYUNG MENON, MG, ADIFF, GFR, CMP, ANEU #### [address] [address] Platelet 90 10 3/mcL Low 150-450 [facility] Comment on above: Performed By: #### C KYUNG MENON, MG, ADIFF, GFR, CMP, ANEU #### [address] [address] Platelet mean volume (Bld) [Entitic vol] 7.9 fL Normal 6.4-10.5 [facility] Comment on above: Performed By: #### C KYUNG MENON, MG, ADIFF, GFR, CMP, ANEU #### [address] [address] RBC 3.91 10 6/mcL Low 4.50-6.00 [facility] Comment on above: Performed By: #### C KYUNG MENON, MG, ADIFF, GFR, CMP, ANEU #### [address] [address] WBC 6.2 10 3/mcL Normal 4.5-10.8 [facility] Comment on above: Performed By: #### C KYUNG MENON, MG, ADIFF, GFR, CMP, ANEU #### [address] [address] LABORATORYOrdered By: Leidy Gomez on 11-01-2024 Creatinine (U) [Mass/Vol] 88.0 mg/dL Invalid Interpretation Code AO ADM SS Protein (U) [Mass/Vol] 26 mg/dL Invalid Interpretation Code AO ADM SS U Ratio Prot/Creat 0.3 ratio Invalid Interpretation Code AO Chemistry S LABORATORYOrdered By: [employer] on 11-01-2024 25-hydroxyvitamin D3 [Mass/Vol] 23.4 ng/mL Invalid Interpretation Code AO ADM SS Comment on above: Interpretive Data: I nterpretive Values Based on Total 25(OH) Vitamin D: Deficient <20 ng/mL Insufficient 20 - <30 ng/mL Sufficient 30-100 ng/mL Basophils (Bld) [#/Vol] 0.0 103/mcL Normal 0.0 - 0.2 10^3/mcL AO Workflow SS Basophils/100 WBC (Bld) 0.6 % Normal 0.0 - 2.5 % AO Workflow SS Calcium [Mass/Vol] 9.7 mg/dL Normal 8.4 - 10. 2 mg/dL AO ADM SS Chloride [Moles/Vol] 108 mmol/L High 98 - 10 7 mmol/L AO ADM SS CO2 [Moles/Vol] 29 mmol/L Normal 23 - 31 mmol/L AO ADM SS Creatinine [Mass/Vol] 2.31 mg/dL High 0.70 - 1.30 mg/dL AO ADM SS Comment on above: Interpretive Data: T esting performed on [employer] Dimension EXL analyzer using a modified kinetic Sonia technique. Electrolyte Balance 8.0 mEq/L Normal 4.0 - 15 .0 mEq/L AO ADM SS Eosinophil, Absolute 0.2 103/mcL Normal 0.0 - 0 .7 10^3/mcL AO Workflow SS Eosinophils/100 WBC (Bld) 2.8 % Normal 0.0 - 7.0 % AO Workflow SS Erythrocyte distribution width (RBC) [Ratio] 16.6 % High 11.5 - 15.5 % AO Workflow SS Estimated Glomerular Filtration Rate 27 ml/min/1.73sqm Invalid Interpretation Code AO Chemistry S Comment on above: Interpretive Data: Stages of Chronic Kidney Disease (CKD) Stage Description eGFR(ml/min/1.73 sq.m.) CKD 1 Normal kidney function or >=90 normal kindney function with possible kidney damage (ex. Proteinuria) CKD 2 Kidney damage with mild loss 60-89 of kidney function CKD 3a Mild to moderate loss of kidney 45-59 function CKD 3b Moderate to severe loss of 30-44 of kindey function CKD 4 Severe loss of kidney function 15-29 CKD 5 Kidney failure <15 Note: (go live 2024) the eGFR calculation was updated to the 2020 CKD-EPI creatinine equation without a race factor to calculate the eGFR results. Glucose [Mass/Vol] 111 mg/dL High 83 - 110 mg/dL AO ADM SS Hematocrit (Bld) [Volume fraction] 34.4 % Low 40.0 - 52.0 % AO Workflow SS Hemoglobin (Bld) [Mass/Vol] 11.5 G/dL Low 13.0 - 17.5 G/dL AO Workflow SS Lymphocytes (Bld) [#/Vol] 1.6 103/mcL Normal 0.9 - 4.3 10^3/mcL AO Workflow SS Lymphocytes/100 WBC (Bld) 25.7 % Normal 20.0 - 40.0 % AO Workflow SS MCH (RBC) [Entitic mass] 29.3 pg Normal 27. 0 - 33.0 pg AO Workflow SS MCHC 33.4 G/dL Normal 32.0 - 36.0 G/dL AO Workflow SS MCV (RBC) [Entitic vol] 87.9 fL Normal 81.0 - 100.0 fL AO Workflow SS Monocytes (Bld) [#/Vol] 0.4 103/mcL Normal 0.1 - 1.4 10^3/mcL AO Workflow SS Monocytes/100 WBC (Bld) 6.6 % Normal 2.0 - 13.0 % AO Workflow SS Neutrophils (Bld) [#/Vol] 4.0 103/mcL Normal 2.3 - 8.1 10^3/mcL AO Workflow SS Neutrophils/100 WBC (Bld) 64.3 % Normal 50.0 - 75.0 % AO Workflow SS Parathyrin.intact [Mass/Vol] 194.7 pg/mL High 18.5 - 88.0 pg/mL AH ADM SS Platelet mean volume (Bld) [Entitic vol] 7.9 fL Normal 6.4 - 10.5 fL AO Workflow SS Platelets (Bld) [#/Vol] 90 103/mcL Low 150 - 450 10^3/mcL AO Workflow SS Potassium [Moles/Vol] 5.0 mmol/L Normal 3.5 - 5.1 mmol/L AO ADM SS RBC (Bld) [#/Vol] 3.91 106/mcL Low 4.50 - 6.00 10^6/mcL AO Workflow SS Sodium [Moles/Vol] 145 mmol/L Normal 136 - 145 mmol/L AO ADM SS Urea nitrogen [Mass/Vol] 30 mg/dL High 7 - 18 mg/dL AO ADM SS Urea nitrogen/Creatinine [Mass ratio] 13 ratio Normal 7 - 27 ratio AO ADM SS Uric Acid Lvl 7.2 mg/dL Normal 3.5 - 7.2 mg/dL AO ADM SS WBC (Bld) [#/Vol] 6.2 103/mcL Normal 4.5 - 10.8 10^3/mcL AO Workflow SS PTHon 11-01-2024 PTH, Intact 194.7 pg/mL High 18.5-88.0 [facility] Comment on above: Performed By: #### C KYUNG MENON, , ADDEMETRIS, GFR, CMP, ANEU #### [address] [address] RPCURon 11-01-2024 U Creatinine 88.0 mg/dL Normal [facility] Comment on above: Performed By: #### R PCUR #### [address] [address] U Protein 26 mg/dL Normal [facility] Comment on above: Performed By: #### R PCUR #### [address] [address] U Ratio Prot/Creat 0.3 ratio Normal [facility] Comment on above: Performed By: #### R PCUR #### [address] [address] URICon 11-01-2024 Uric Acid Lvl 7.2 mg/dL Normal 3.5-7.2 [facility] Comment on above: Performed By: #### C KYUNG MENON, , KHALIDA, GFR, CMP, ANEU #### [address] [address] VIDHon 11-01-2024 Vit. D 25-Hydroxy 23.4 ng/mL Normal [facility] Comment on above: Result Comment: Inte rpretive Values Based on Total 25(OH) Vitamin D: Deficient <20 ng/mL Insufficient 20 - <30 ng/mL Sufficient 30-100 ng/mL Performed By: #### C KYUNG MENON, , ADDEMETRIS, GFR, CMP, ANEU #### [address] [address] CNOVSPon 09-12-2024 CNOVSP Visit (SP) Office (HEMAWS) ----- EKATERINA RANDHAWA ([id number]) 1940 M Date Time Provider Department 09/12/24 10:30 AM TONEY GUTIERREZ During your visit today, we recorded the following information about you: Temperature Pulse Blood pressure Weight 97.1 degrees 58/minute 128/59 89.4 kg Height 1.727 m Toney Guiterrez MD 09/12/2024 11:04 AM Signed HISTORY OF PRESENT ILLNESS: Ekaterina Randhawa is a 84 year old male referred for thrombocytopenia, mild anemia. Labs reviewed. Creatinine 2.4, vitamins normal Notes no bleeding, dark stools CLINICAL IMPRESSION: Mild stable thrombocytopenia suspect fatty liver in setting of DM, cholesterol. Mild anemia likely renal , not yet requiring intervention. RECOMMENDATION/PLAN: 1. Back in 4 months with cbc Written and verbal health teaching given to patient, patient verbalizes understanding and agrees with treatment plan. PAST MEDICAL HISTORY Diagnosis Date BPH (benign prostatic hyperplasia) CVA (cerebral vascular accident) (HCC) Diabetes (HCC) GERD (gastroesophageal reflux disease) HTN (hypertension) Hyperlipidemia Parkinson's disease (HCC) PAST SURGICAL HISTORY Procedure Laterality Date ARTHRP KNE CONDYLEANDPLATU MEDIALANDLAT COMPARTMENTS Right 09/20/1994 CABG (5) VENOUS GRAFTS AND ARTERIAL GRAFT(S) LITHROTRIPSY PAST SURGICAL HISTORY OF Left wrist PROSTATE BIOPSY 1997 PROSTATE BIOPSY 2002 TRANSURETHRAL ELEC-SURG PROSTATECTOM FAMILY HISTORY Problem Relation Age of Onset Heart Father Cancer Father Social History Tobacco Use Smoking status: Former Types: Cigars Quit date: 1993 Years since quittin.0 Smokeless tobacco: Never ALLERGIES: ALLERGIES No Known Allergies CURRENT OUTPATIENT MEDICATIONS: carbidopa-levodopa (SINEMET 25-100) 25-100 mg per tablet Take 1 tablet by mouth three times a day. lisinopril (ZESTRIL) 20 mg tablet Take 20 mg by mouth two times a day. atorvastatin (LIPITOR) 40 mg tablet Take 40 mg by mouth daily at bedtime. sodium zirconium cyclosilicate (LOKELMA) 10 gram oral packet Take 10 g by mouth once daily. Mix powder in 45 mL of water, stir and drink immediately. doxazosin (CARDURA) 4 mg tablet Take 4 mg by mouth daily at bedtime. cyanocobalamin, vitamin B-12, (VITAMIN B-12 ORAL) Take 1 tablet by mouth once daily. MAGNESIUM ORAL Take 1 tablet by mouth once daily. acetaminophen (TYLENOL) 325 mg tablet 2 tablets by ORAL/FEEDING TUBE route every 4 hours as needed. metoprolol succinate ER (TOPROL XL) 100 mg Tb24 Take 1 tablet by mouth twice daily. melatonin 3 mg tablet Take 1 tablet by mouth daily at bedtime. (Patient taking differently: Take 6 mg by mouth at bedtime as needed.) aspirin 81 mg chewable tablet Take 1 tablet by mouth once daily. pantoprazole DR (PROTONIX) 40 mg tablet Take 40 mg by mouth once daily. metFORMIN (GLUCOPHAGE) 500 mg tablet Take 2 tablets by mouth twice daily with meals. atorvastatin (LIPITOR) 80 mg tablet Take 1 tablet by mouth daily at bedtime. lisinopril 2.5 mg tablet Take 1 tablet by mouth once daily. therapeutic multivitamin (THERA VITAMIN) tablet Take 1 tablet by mouth once daily. clopidogrel (PLAVIX) 75 mg tablet Take 1 tablet by mouth once daily. finasteride (PROSCAR) 5 mg tablet Take 5 mg by mouth once daily. tamsulosin ER (FLOMAX) 0.4 mg cp24 Take 0.4 mg by mouth. REVIEW OF SYSTEMS: GENERAL: No fever, night sweats, weight loss or malaise. All other reviewed and negative other than HPI. PHYSICAL EXAMINATION: VITAL SIGNS: BP 128/59 Pulse 58 Temp (Src) 97.1 (Temporal) Ht 5' 8 (1.73m) Wt 197 lb (89.4kg) SpO2 96% BMI 29.96 kg/(m2). GENERAL APPEARANCE: Well appearing, in no acute distress, alert and oriented x3, well-hydrated, well nourished. I spent a total of 30 minutes on the date of the service which included preparing to see the patient, [id number] patient care, completing clinical documentation, obtaining and/or reviewing separately obtained history, counseling and educating the patient/family/caregiver, ordering medications, tests, or procedures, independently interpreting results (not separately reported), and communicating results to the patient/family/caregiver. Electronically Signed: Toney Gutierrez MD September 12, 2024 10:42 AM Referring Provider: JLUIS NICHOLE [[id number]] Allergies As of Date: 09/12/2024 (No Known Allergies) Date Reviewed: 09/12/2024 Reviewed by: Carrie García Ma, MA - Fully Assessed Reason for Visit: New Patient Evaluation [154] Primary Visit Diagnosis:Thrombocytopeni a (HCC) [D69.6] Other Visit Diagnosis:Anemia, unspecified type [D64.9] Order(s):COMPLETE BLOOD COUNT AND DIFFERENTIAL [SQCBCDIF] Order #: [id number] FUTURE ACTIVATED PARTIAL THROMBOPLASTIN TIME [SQPTT] Order #: [id number] FUTURE PROTHROMBIN TIME [SQPT] Order #: [id number] FUTURE Disposition: Return in about 4 months (more content not included)... Normal [facility] .Auto Diffon 08-11-2024 Basophil, Absolute 0.0 10 3/mcL Normal 0.0-0.2 [facility] Comment on above: Performed By: #### C KYUNG MENON, MG, ADIFF, GFR, CMP, ANEU #### [address] [address] Basophils/100 WBC (Bld) 0.6 % Normal 0.0-2.5 [facility] Comment on above: Performed By: #### C KYUNG MENON, MG, ADIFF, GFR, CMP, ANEU #### [address] [address] Eosinophil, Absolute 0.1 10 3/mcL Normal 0.0-0.7 [facility] Comment on above: Performed By: #### C KYUNG MENON, MG, ADIFF, GFR, CMP, ANEU #### [address] [address] Eosinophils/100 WBC (Bld) 1.6 % Normal 0.0-7.0 [facility] Comment on above: Performed By: #### C KYUNG MENON, MG, ADIFF, GFR, CMP, ANEU #### [address] [address] Lymphocyte, Absolute 1.3 10 3/mcL Normal 0.9-4.3 [facility] Comment on above: Performed By: #### C KYUNG MENON, MG, ADIFF, GFR, CMP, ANEU #### [address] [address] Lymphocytes/100 WBC (Bld) 20.5 % Normal 20.0-40.0 [facility] Comment on above: Performed By: #### C LYNSEY, KYUNG, MG, ADIFF, GFR, CMP, ANEU #### [address] [address] Monocyte, Absolute 0.4 10 3/mcL Normal 0.1-1.4 [facility] Comment on above: Performed By: #### C LYNSEY, KYUNG, MG, ADIFF, GFR, CMP, ANEU #### [address] [address] Monocytes/100 WBC (Bld) 6.7 % Normal 2.0-13.0 [facility] Comment on above: Performed By: #### C KYUNG MENON, MG, ADIFF, GFR, CMP, ANEU #### [address] [address] Neutrophils/100 WBC (Bld) 70.6 % Normal 50.0-75.0 [facility] Comment on above: Performed By: #### C LYNSEY, KYUNG, MG, ADIFF, GFR, CMP, ANEU #### [address] [address] .GFRon 08-11-2024 GFR 33 ml/min/1.73sqm Normal [facility] Comment on above: Result Comment: GFR Population mean for , Non- Americans Ages 20-29 = 116 mL/min/1.73 sq.m. Ages 30-39 = 107 mL/min/1.73 sq.m. Ages 40-49 = 99 mL/min/1.73 sq.m. Ages 50-59 = 93 mL/min/1.73 sq.m. Ages 60-69 = 85 mL/min/1.73 sq.m. Ages 70+ = 75 mL/min/1.73 sq.m. Chronic Kidney Disease: Less than 60 mL/min/1.73 square meters End Stage Renal Disease: Less than 15 mL/min/1.73 square meters Performed By: #### C KYUNG MENON, MG, ADIFF, GFR, CMP, ANEU #### [address] [address] GFR Non- 27 ml/min/1.73sqm Normal [facility] Comment on above: Result Comment: GFR Population mean for , Non- Americans Ages 20-29 = 116 mL/min/1.73 sq.m. Ages 30-39 = 107 mL/min/1.73 sq.m. Ages 40-49 = 99 mL/min/1.73 sq.m. Ages 50-59 = 93 mL/min/1.73 sq.m. Ages 60-69 = 85 mL/min/1.73 sq.m. Ages 70+ = 75 mL/min/1.73 sq.m. Chronic Kidney Disease: Less than 60 mL/min/1.73 square meters End Stage Renal Disease: Less than 15 mL/min/1.73 square meters Performed By: #### C KYUNG MENON, MG, ADIFF, GFR, CMP, ANEU #### [address] [address] .NEUABSon 08-11-2024 Neutrophil, Absolute 4.6 10 3/mcL Normal 2.3-8.1 [facility] Comment on above: Performed By: #### C KYUNG MENON, , ADIFF, GFR, CMP, ANEU #### [address] [address] B12on 08-11-2024 Cobalamin (Vitamin B12) [Mass/Vol] 360 pg/mL Normal 211-911 [facility] Comment on above: Performed By: #### C KYUNG MENON, MG, ADIFF, GFR, CMP, ANEU #### [address] [address] CBCon 08-11-2024 Erythrocyte distribution width (RBC) [Ratio] 15.2 % Normal 11.5-15.5 [facility] Comment on above: Performed By: #### C KYUNG MENON, MG, ADIFF, GFR, CMP, ANEU #### [place] [address] Hematocrit (Bld) [Volume fraction] 34.5 % Low 40.0-52.0 [facility] Comment on above: Performed By: #### C KYUNG MENON, MG, ADIFF, GFR, CMP, ANEU #### [place] [address] Hgb 11.4 G/dL Low 13.0-17.5 [facility] Comment on above: Performed By: #### C KYUNG MENON, MG, ADIFF, GFR, CMP, ANEU #### [place] [address] MCH (RBC) [Entitic mass] 29.4 pg Normal 27.0-33.0 [facility] Comment on above: Performed By: #### C KYUNG MENON, MG, ADIFF, GFR, CMP, ANEU #### [place] [address] MCHC 33.1 G/dL Normal 32.0-36.0 [facility] Comment on above: Performed By: #### C KYUNG MENON, MG, ADIFF, GFR, CMP, ANEU #### [place] [address] MCV (RBC) [Entitic vol] 88.9 fL Normal 81.0-100.0 [facility] Comment on above: Performed By: #### C KYUNG MENON, MG, ADIFF, GFR, CMP, ANEU #### [address] [address] Platelet 91 10 3/mcL Low 150-450 [facility] Comment on above: Performed By: #### C KYUNG MENON, MG, ADIFF, GFR, CMP, ANEU #### [place] [address] Platelet mean volume (Bld) [Entitic vol] 7.6 fL Normal 6.4-10.5 [facility] Comment on above: Performed By: #### C KYUNG MENON, MG, ADIFF, GFR, CMP, ANEU #### [address] [address] RBC 3.88 10 6/mcL Low 4.50-6.00 [facility] Comment on above: Performed By: #### C LYNSEY, KYUNG, MG, ADIFF, GFR, CMP, ANEU #### [address] [address] WBC 6.5 10 3/mcL Normal 4.5-10.8 [facility] Comment on above: Performed By: #### C LYNSEY, KYUNG, MG, ADIFF, GFR, CMP, ANEU #### [place] [id number] CMPon 08-11-2024 Albumin Level 4.0 G/dL Normal 3.4-4.8 [facility] Comment on above: Performed By: #### C KYUNG MENON, MG, ADIFF, GFR, CMP, ANEU #### [place] [id number] Albumin/Globulin [Mass ratio] 1.7 {ratio} Normal 1.1-2.5 [facility] Comment on above: Performed By: #### C KYUNG MENON, MG, ADIFF, GFR, CMP, ANEU #### [address] [address] ALP [Catalytic activity/Vol] 72 U/L Normal 40-135 [facility] Comment on above: Performed By: #### C KYUNG MENON, MG, ADIFF, GFR, CMP, ANEU #### [address] [address] ALT [Catalytic activity/Vol] 17 U/L Normal 16-63 [facility] Comment on above: Performed By: #### C KYUNG MENON, MG, ADIFF, GFR, CMP, ANEU #### [address] [address] AST [Catalytic activity/Vol] 14 U/L Normal 10-40 [facility] Comment on above: Performed By: #### C KYUNG MENON, MG, ADIFF, GFR, CMP, ANEU #### [address] [address] Bili Total 0.7 mg/dL Normal 0.2-1.0 [facility] Comment on above: Result Comment: Use of this assay is not recommended for patients undergoing treatment with eltrombopag due to the potential for falsely elevated results. Performed By: #### C LYNSEY, KYUNG, MG, ADIFF, GFR, CMP, ANEU #### [address] [address] BUN/Creatinine Ratio 12 ratio Normal 7-27 [facility] Comment on above: Performed By: #### C KYUNG MENON, MG, ADIFF, GFR, CMP, ANEU #### [address] [address] Calcium [Mass/Vol] 8.9 mg/dL Normal 8.4-10.2 [facility] Comment on above: Performed By: #### C KYUNG MENON, MG, ADIFF, GFR, CMP, ANEU #### [address] [address] Chloride [Moles/Vol] 107 mmol/L Normal 98-107 [facility] Comment on above: Performed By: #### C KYUNG MENON, MG, ADIFF, GFR, CMP, ANEU #### [address] [address] CO2 [Moles/Vol] 26 mmol/L Normal 23-31 [facility] Comment on above: Performed By: #### C KYUNG MENON, MG, ADIFF, GFR, CMP, ANEU #### [address] [address] Creatinine [Mass/Vol] 2.31 mg/dL High 0.70-1.30 [facility] Comment on above: Result Comment: Test ing performed on Siemens Dimension EXL analyzer using a modified kinetic Sonia technique. Performed By: #### C KYUNG MENON, MG, ADIFF, GFR, CMP, ANEU #### [address] [address] Electrolyte Balance 9.0 mEq/L Normal 4.0-15.0 [facility] Comment on above: Performed By: #### C LYNSEY, W, MG, ADIFF, GFR, CMP, ANEU #### [address] [address] Globulin 2.4 G/dL Normal [facility] Comment on above: Performed By: #### C LYNSEY, W, MG, ADIFF, GFR, CMP, ANEU #### [address] [address] Glucose [Mass/Vol] 111 mg/dL High 83-110 [facility] Comment on above: Performed By: #### C LYNSEY, W, MG, ADIFF, GFR, CMP, ANEU #### [address] [address] Potassium [Moles/Vol] 4.7 mmol/L Normal 3.5-5.1 [facility] Comment on above: Performed By: #### C LYNSEY, KYUNG, MG, ADIFF, GFR, CMP, ANEU #### [address] [address] Sodium [Moles/Vol] 142 mmol/L Normal 136-145 [facility] Comment on above: Performed By: #### C LYNSEY, W, MG, ADIFF, GFR, CMP, ANEU #### [address] [address] Total Protein 6.4 G/dL Normal 6.4-8.2 [facility] Comment on above: Performed By: #### C LYNSEY, W, MG, ADIFF, GFR, CMP, ANEU #### [address] [address] Urea nitrogen [Mass/Vol] 28 mg/dL High 7-18 [facility] Comment on above: Performed By: #### C LYNSEY, W, MG, ADIFF, GFR, CMP, ANEU #### [address] [address] Jose 11-22-2024 Ferritin [Mass/Vol] 28.0 ng/mL Normal 26.0-388.0 [facility] Comment on above: Performed By: #### C KYUNG MENON, , ADIFF, GFR, CMP, ANEU #### [place] [address] FESon 08-11-2024 Iron [Mass/Vol] 83 ug/dL Normal 65-175 [facility] Comment on above: Performed By: #### C KYUNG MENON, MG, ADIFF, GFR, CMP, ANEU #### [place] [address] Iron Sat 26 % Normal [facility] Comment on above: Performed By: #### C KYUNG MENON, , ADIFF, GFR, CMP, ANEU #### [place] [address] TIBC 316 mcg/dL Normal 250-450 [facility] Comment on above: Performed By: #### C KYUNG MENON, , ADIFF, GFR, CMP, ANEU #### [place] [address] HCVon 08-11-2024 Hep C Ab Non-Reactive Normal Non-Reacti ve [facility] Comment on above: Performed By: #### C KYUNG MENON, , ADIFF, GFR, CMP, ANEU #### [place] [address] Hep C Ab Int Normal [facility] Comment on above: Result Comment: Nonr eactive: Samples with a value < 0.80 are considered nonreactive (negative) for antibodies to HCV. A negative test result does not exclude the possibility of exposure to or infection with HCV. HCV antibodies may be undetectable in some stages of the infection and in some clinical conditions. See Interp Performed By: #### C KYUNG MENON, MG, ADIFF, GFR, CMP, ANEU #### [place] [address] LABORATORYOrdered By: SYSTEM SYSTEM on 08-11-2024 Albumin BCP dye [Mass/Vol] 4.0 G/dL Normal 3.4 - 4.8 G/dL AO ADM SS Albumin/Globulin [Mass ratio] 1.7 {ratio} Normal 1.1 - 2.5 ratio AO ADM SS ALP [Catalytic activity/Vol] 72 U/L Normal 40 - 135 U/L AO ADM SS ALT With P-5'-P [Catalytic activity/Vol] 17 U/L Normal 16 - 63 U/L AO ADM SS AST With P-5'-P [Catalytic activity/Vol] 14 U/L Normal 10 - 40 U/L AO ADM SS Basophils (Bld) [#/Vol] 0.0 103/mcL Normal 0.0 - 0.2 10^3/mcL AO Workflow SS Basophils/100 WBC (Bld) 0.6 % Normal 0.0 - 2.5 % AO Workflow SS Bilirubin [Mass/Vol] 0.7 mg/dL Normal 0.2 - 1 .0 mg/dL AO ADM SS Comment on above: Interpretive Data: U se of this assay is not recommended for patients undergoing treatment with eltrombopag due to the potential for falsely elevated results. Calcium [Mass/Vol] 8.9 mg/dL Normal 8.4 - 10. 2 mg/dL AO ADM SS Chloride [Moles/Vol] 107 mmol/L Normal 98 - 10 7 mmol/L AO ADM SS CO2 [Moles/Vol] 26 mmol/L Normal 23 - 31 mmol/L AO ADM SS Cobalamin (Vitamin B12) [Mass/Vol] 360 pg/mL Normal 211 - 911 pg/mL AH ADM SS Creatinine [Mass/Vol] 2.31 mg/dL High 0.70 - 1.30 mg/dL AO ADM SS Comment on above: Interpretive Data: T esting performed on Siemens Dimension EXL analyzer using a modified kinetic Sonia technique. Electrolyte Balance 9.0 mEq/L Normal 4.0 - 15 .0 mEq/L AO ADM SS Eosinophil, Absolute 0.1 103/mcL Normal 0.0 - 0 .7 10^3/mcL AO Workflow SS Eosinophils/100 WBC (Bld) 1.6 % Normal 0.0 - 7.0 % AO Workflow SS Erythrocyte distribution width (RBC) [Ratio] 15.2 % Normal 11.5 - 15.5 % AO Workflow SS Ferritin [Mass/Vol] 28.0 ng/mL Normal 26.0 - 388.0 ng/mL AO ADM SS GFR/1.73 sq M.predicted among blacks MDRD (S/P/Bld) [Vol rate/Area] 33 ml/min/1.73sqm Invalid Interpretation Code AO Chemistry S Comment on above: Interpretive Data: GFR Population mean for , Non- Americans Ages 20-29 = 116 mL/min/1.73 sq.m. Ages 30-39 = 107 mL/min/1.73 sq.m. Ages 40-49 = 99 mL/min/1.73 sq.m. Ages 50-59 = 93 mL/min/1.73 sq.m. Ages 60-69 = 85 mL/min/1.73 sq.m. Ages 70+ = 75 mL/min/1.73 sq.m. Chronic Kidney Disease: Less than 60 mL/min/1.73 square meters End Stage Renal Disease: Less than 15 mL/min/1.73 square meters GFR/1.73 sq M.predicted among non-blacks MDRD (S/P/Bld) [Vol rate/Area] 27 ml/min/1.73sqm Invalid Interpretation Code AO Chemistry S Comment on above: Interpretive Data: GFR Population mean for , Non- Americans Ages 20-29 = 116 mL/min/1.73 sq.m. Ages 30-39 = 107 mL/min/1.73 sq.m. Ages 40-49 = 99 mL/min/1.73 sq.m. Ages 50-59 = 93 mL/min/1.73 sq.m. Ages 60-69 = 85 mL/min/1.73 sq.m. Ages 70+ = 75 mL/min/1.73 sq.m. Chronic Kidney Disease: Less than 60 mL/min/1.73 square meters End Stage Renal Disease: Less than 15 mL/min/1.73 square meters Globulin 2.4 G/dL Invalid Interpretation Code AO ADM SS Glucose [Mass/Vol] 111 mg/dL High 83 - 110 mg/dL AO ADM SS Hematocrit (Bld) [Volume fraction] 34.5 % Low 40.0 - 52.0 % AO Workflow SS Hemoglobin (Bld) [Mass/Vol] 11.4 G/dL Low 13.0 - 17.5 G/dL AO Workflow SS Iron [Mass/Vol] 83 ug/dL Normal 65 - 175 mcg/dL AO ADM SS Iron binding capacity [Mass/Vol] 316 mcg/dL Normal 250 - 450 mcg/dL AO ADM SS Iron Sat 26 % Invalid Interpretation Code AO ADM SS Lymphocytes (Bld) [#/Vol] 1.3 103/mcL Normal 0.9 - 4.3 10^3/mcL AO Workflow SS Lymphocytes/100 WBC (Bld) 20.5 % Normal 20.0 - 40.0 % AO Workflow SS Magnesium [Mass/Vol] 1.7 mg/dL Low 1.8 - 2 .4 mg/dL AO ADM SS MCH (RBC) [Entitic mass] 29.4 pg Normal 27. 0 - 33.0 pg AO Workflow SS MCHC 33.1 G/dL Normal 32.0 - 36.0 G/dL AO Workflow SS MCV (RBC) [Entitic vol] 88.9 fL Normal 81.0 - 100.0 fL AO Workflow SS Monocytes (Bld) [#/Vol] 0.4 103/mcL Normal 0.1 - 1.4 10^3/mcL AO Workflow SS Monocytes/100 WBC (Bld) 6.7 % Normal 2.0 - 13.0 % AO Workflow SS Natriuretic peptide.B prohormone N-Terminal [Mass/Vol] 1518 pg/mL High 0 - 450 pg/mL AO ADM SS Comment on above: Interpretive Data: N T-proBNP results of less than 300 pg/mL effectively rules out acute congestive heart failure with 99% negative predictive value. Neutrophils (Bld) [#/Vol] 4.6 103/mcL Normal 2.3 - 8.1 10^3/mcL AO Workflow SS Neutrophils/100 WBC (Bld) 70.6 % Normal 50.0 - 75.0 % AO Workflow SS Platelet mean volume (Bld) [Entitic vol] 7.6 fL Normal 6.4 - 10.5 fL AO Workflow SS Platelets (Bld) [#/Vol] 91 103/mcL Low 150 - 450 10^3/mcL AO Workflow SS Potassium [Moles/Vol] 4.7 mmol/L Normal 3.5 - 5.1 mmol/L AO ADM SS Protein [Mass/Vol] 6.4 G/dL Normal 6.4 - 8.2 G/dL AO ADM SS RBC (Bld) [#/Vol] 3.88 106/mcL Low 4.50 - 6.00 10^6/mcL AO Workflow SS Sodium [Moles/Vol] 142 mmol/L Normal 136 - 145 mmol/L AO ADM SS Urea nitrogen [Mass/Vol] 28 mg/dL High 7 - 18 mg/dL AO ADM SS Urea nitrogen/Creatinine [Mass ratio] 12 ratio Normal 7 - 27 ratio AO ADM SS WBC (Bld) [#/Vol] 6.5 103/mcL Normal 4.5 - 10.8 10^3/mcL AO Workflow SS LABORATORYOrdered By: Adams Riojas on 08-11-2024 Cholesterol [Mass/Vol] 78 mg/dL Normal 0 - 2 00 mg/dL AO ADM SS Comment on above: Interpretive Data: C holesterol Reference Interval: Less than 200 Desirable 200-239 Borderline high risk 240 and above High risk Cholesterol in HDL [Mass/Vol] 35 mg/dL Low 40 - 60 mg/dL AO ADM SS Cholesterol in LDL [Mass/Vol] 27 mg/dL Normal 0 - 130 mg/dL AO ADM SS Triglyceride [Mass/Vol] 79 mg/dL Normal 0 - 150 mg/dL AO ADM SS Comment on above: Interpretive Data: T riglyceride Reference Interval: Less than 150 Normal 150-199 Borderline high risk 200-499 High risk 500 or higher Very high risk LABORATORYOrdered By: Donell Conway on 08-11-2024 HCV Ab IA Ql Non-Reactive (08/11/24 1:22 PM) Normal AH ADM SS HCV Ab IA Ql Nonreactive: Samples with a value < 0.80 are considered nonreactive (negative) for antibodies to HCV.A negative test result does not exclude the possibility of exposure to or infection with HCV. HCV antibodies may be undetectable in some stages of the infection and in some clinical conditions. Invalid Interpretation Code Chemistry S LIPIDon 08-11-2024 Cholesterol [Mass/Vol] 78 mg/dL Normal 0-200 [facility] Comment on above: Result Comment: Chol esterol Reference Interval: Less than 200 Desirable 200-239 Borderline high risk 240 and above High risk Performed By: #### C BC, MDW, MG, ADIFF, GFR, CMP, ANEU #### [place] [id number] [place], [place] [address] Cholesterol in HDL [Mass/Vol] 35 mg/dL Low 40-60 [facility] Comment on above: Performed By: #### C KYUNG MENON, MG, ADIFF, GFR, CMP, ANEU #### [address] [address] Cholesterol in LDL [Mass/Vol] 27 mg/dL Normal 0-130 [facility] Comment on above: Performed By: #### C LYNSEY, KYUNG, MG, ADIFF, GFR, CMP, ANEU #### [address] [address] Triglyceride [Mass/Vol] 79 mg/dL Normal 0-150 [facility] Comment on above: Result Comment: Trig lyceride Reference Interval: Less than 150 Normal 150-199 Borderline high risk 200-499 High risk 500 or higher Very high risk Performed By: #### C KYUNG MENON, MG, ADIFF, GFR, CMP, ANEU #### [address] [address] MGon 08-11-2024 Magnesium [Mass/Vol] 1.7 mg/dL Low 1.8-2.4 [facility] Comment on above: Performed By: #### C KYUNG MENON, MG, ADIFF, GFR, CMP, ANEU #### [place] [id number] PBNPon 08-11-2024 Natriuretic peptide B (Bld) [Mass/Vol] 1518 pg/mL High 0-450 [facility] Comment on above: Result Comment: NT-p roBNP results of less than 300 pg/mL effectively rules out acute congestive heart failure with 99% negative predictive value. Performed By: #### C KYUNG MENON, MG, ADIFF, GFR, CMP, ANEU #### [address] [address] LABORATORYOrdered By: SYSTEM SYSTEM on 07-07-2024 25-hydroxyvitamin D3 [Mass/Vol] 29.7 ng/mL Invalid Interpretation Code AO ADM SS Comment on above: Interpretive Data: I nterpretive Values Based on Total 25(OH) Vitamin D: Deficient <20 ng/mL Insufficient 20 - <30 ng/mL Sufficient 30-100 ng/mL Basophils (Bld) [#/Vol] 0.0 103/mcL Normal 0.0 - 0.2 10^3/mcL AO Workflow SS Basophils/100 WBC (Bld) 0.7 % Normal 0.0 - 2.5 % AO Workflow SS Calcium [Mass/Vol] 10.5 mg/dL High 8.4 - 10. 2 mg/dL AO ADM SS Chloride [Moles/Vol] 103 mmol/L Normal 98 - 10 7 mmol/L AO ADM SS CO2 [Moles/Vol] 30 mmol/L Normal 23 - 31 mmol/L AO ADM SS Creatinine [Mass/Vol] 2.80 mg/dL High 0.70 - 1.30 mg/dL AO ADM SS Comment on above: Interpretive Data: T esting performed on [employer] Dimension EXL analyzer using a modified kinetic Sonia technique. Electrolyte Balance 9.0 mEq/L Normal 4.0 - 15 .0 mEq/L AO ADM SS Eosinophil, Absolute 0.1 103/mcL Normal 0.0 - 0 .7 10^3/mcL AO Workflow SS Eosinophils/100 WBC (Bld) 1.8 % Normal 0.0 - 7.0 % AO Workflow SS Erythrocyte distribution width (RBC) [Ratio] 16.5 % High 11.5 - 15.5 % AO Workflow SS GFR/1.73 sq M.predicted among blacks MDRD (S/P/Bld) [Vol rate/Area] 26 ml/min/1.73sqm Invalid Interpretation Code AO Chemistry S Comment on above: Interpretive Data: GFR Population mean for , Non- Americans Ages 20-29 = 116 mL/min/1.73 sq.m. Ages 30-39 = 107 mL/min/1.73 sq.m. Ages 40-49 = 99 mL/min/1.73 sq.m. Ages 50-59 = 93 mL/min/1.73 sq.m. Ages 60-69 = 85 mL/min/1.73 sq.m. Ages 70+ = 75 mL/min/1.73 sq.m. Chronic Kidney Disease: Less than 60 mL/min/1.73 square meters End Stage Renal Disease: Less than 15 mL/min/1.73 square meters GFR/1.73 sq M.predicted among non-blacks MDRD (S/P/Bld) [Vol rate/Area] 22 ml/min/1.73sqm Invalid Interpretation Code AO Chemistry S Comment on above: Interpretive Data: GFR Population mean for , Non- Americans Ages 20-29 = 116 mL/min/1.73 sq.m. Ages 30-39 = 107 mL/min/1.73 sq.m. Ages 40-49 = 99 mL/min/1.73 sq.m. Ages 50-59 = 93 mL/min/1.73 sq.m. Ages 60-69 = 85 mL/min/1.73 sq.m. Ages 70+ = 75 mL/min/1.73 sq.m. Chronic Kidney Disease: Less than 60 mL/min/1.73 square meters End Stage Renal Disease: Less than 15 mL/min/1.73 square meters Glucose [Mass/Vol] 124 mg/dL High 83 - 110 mg/dL AO ADM SS Hematocrit (Bld) [Volume fraction] 33.8 % Low 40.0 - 52.0 % AO Workflow SS Hemoglobin (Bld) [Mass/Vol] 11.2 G/dL Low 13.0 - 17.5 G/dL AO Workflow SS Lymphocytes (Bld) [#/Vol] 1.5 103/mcL Normal 0.9 - 4.3 10^3/mcL AO Workflow SS Lymphocytes/100 WBC (Bld) 24.2 % Normal 20.0 - 40.0 % AO Workflow SS MCH (RBC) [Entitic mass] 29.6 pg Normal 27. 0 - 33.0 pg AO Workflow SS MCHC 33.2 G/dL Normal 32.0 - 36.0 G/dL AO Workflow SS MCV (RBC) [Entitic vol] 89.1 fL Normal 81.0 - 100.0 fL AO Workflow SS Monocytes (Bld) [#/Vol] 0.4 103/mcL Normal 0.1 - 1.4 10^3/mcL AO Workflow SS Monocytes/100 WBC (Bld) 6.1 % Normal 2.0 - 13.0 % AO Workflow SS Neutrophils (Bld) [#/Vol] 4.1 103/mcL Normal 2.3 - 8.1 10^3/mcL AO Workflow SS Neutrophils/100 WBC (Bld) 67.2 % Normal 50.0 - 75.0 % AO Workflow SS Parathyrin.intact [Mass/Vol] 34.9 pg/mL Normal 18.5 - 88.0 pg/mL AH ADM SS Platelet mean volume (Bld) [Entitic vol] 7.7 fL Normal 6.4 - 10.5 fL AO Workflow SS Platelets (Bld) [#/Vol] 107 103/mcL Low 150 - 450 10^3/mcL AO Workflow SS Potassium [Moles/Vol] 5.0 mmol/L Normal 3.5 - 5.1 mmol/L AO ADM SS RBC (Bld) [#/Vol] 3.79 106/mcL Low 4.50 - 6.00 10^6/mcL AO Workflow SS Sodium [Moles/Vol] 142 mmol/L Normal 136 - 145 mmol/L AO ADM SS Urea nitrogen [Mass/Vol] 35 mg/dL High 7 - 18 mg/dL AO ADM SS Urea nitrogen/Creatinine [Mass ratio] 12 ratio Normal 7 - 27 ratio AO ADM SS Uric Acid Lvl 8.7 mg/dL High 3.5 - 7.2 mg/dL AO ADM SS WBC (Bld) [#/Vol] 6.1 103/mcL Normal 4.5 - 10.8 10^3/mcL AO Workflow SS LABORATORYOrdered By: Rhett Figueroa on 07-07-2024 Creatinine (U) [Mass/Vol] 81.0 mg/dL Normal 39.0 - 259.0 mg/dL AO ADM SS Protein (U) [Mass/Vol] 16 mg/dL High 0 - 1 1 mg/dL AO ADM SS U Ratio Prot/Creat 0.20 ratio Invalid Interpretation Code AO ADM SS .Auto Diffon 02-21-2024 Basophil, Absolute 0.1 10 3/mcL Normal 0.0-0.2 [facility] ([place]) Comment on above: Performed By: #### A DIFF, BMP, ANEU, VIDH, URIC, CBC, GFR #### [address] [address] #### PTH #### [address] [address] Basophils/100 WBC (Bld) 0.7 % Normal 0.0-2.5 A [facility] ([place]) Comment on above: Performed By: #### A DIFF, BMP, ANEU, VIDH, URIC, CBC, GFR #### [place] [address] #### PTH #### [address] [address] Eosinophil, Absolute 0.2 10 3/mcL Normal 0.0-0.4 [facility] ([place]) Comment on above: Performed By: #### A DIFF, BMP, ANEU, VIDH, URIC, CBC, GFR #### [place] [address] #### PTH #### [address] [address] Eosinophils/100 WBC (Bld) 2.1 % Normal 0.0-7.0 [facility] ([place]) Comment on above: Performed By: #### A DIFF, BMP, ANEU, VIDH, URIC, CBC, GFR #### [place] [address] #### PTH #### [address] [address] Lymphocyte, Absolute 2.0 10 3/mcL Normal 0.8-3.9 [facility] ([place]) Comment on above: Performed By: #### A DIFF, BMP, ANEU, VIDH, URIC, CBC, GFR #### [place] [address] #### PTH #### [address] [address] Lymphocytes/100 WBC (Bld) 25.0 % Normal 10.0-50.0 [facility] ([place]) Comment on above: Performed By: #### A DIFF, BMP, ANEU, VIDH, URIC, CBC, GFR #### [place] [address] #### PTH #### [address] [address] Monocyte, Absolute 0.5 10 3/mcL Normal 0.2-1.0 [facility] ([place]) Comment on above: Performed By: #### A DIFF, BMP, ANEU, VIDH, URIC, CBC, GFR #### [place] [address] #### PTH #### [address] [address] Monocytes/100 WBC (Bld) 6.0 % Normal 1.7-13.0 A [facility] ([place]) Comment on above: Performed By: #### A DIFF, BMP, ANEU, VIDH, URIC, CBC, GFR #### [address] [address] #### PTH #### [address] [address] Neutrophils/100 WBC (Bld) 66.2 % Normal 37.0-80.0 [facility] ([place]) Comment on above: Performed By: #### A DIFF, BMP, ANEU, VIDH, URIC, CBC, GFR #### [address] [address] #### PTH #### [address] [address] .GFRon 02-21-2024 GFR Non- 21 ml/min/1.73sqm Normal [facility] ([place]) Comment on above: Result Comment: GFR Population mean for , Non- Americans Ages 20-29 = 116 mL/min/1.73 sq.m. Ages 30-39 = 107 mL/min/1.73 sq.m. Ages 40-49 = 99 mL/min/1.73 sq.m. Ages 50-59 = 93 mL/min/1.73 sq.m. Ages 60-69 = 85 mL/min/1.73 sq.m. Ages 70+ = 75 mL/min/1.73 sq.m. Chronic Kidney Disease: Less than 60 mL/min/1.73 square meters End Stage Renal Disease: Less than 15 mL/min/1.73 square meters Performed By: #### A DIFF, BMP, ANEU, VIDH, URIC, CBC, GFR #### [address] [address] #### PTH #### [address] [address] GFR 26 ml/min/1.73sqm Normal [facility] ([place]) Comment on above: Result Comment: GFR Population mean for , Non- Americans Ages 20-29 = 116 mL/min/1.73 sq.m. Ages 30-39 = 107 mL/min/1.73 sq.m. Ages 40-49 = 99 mL/min/1.73 sq.m. Ages 50-59 = 93 mL/min/1.73 sq.m. Ages 60-69 = 85 mL/min/1.73 sq.m. Ages 70+ = 75 mL/min/1.73 sq.m. Chronic Kidney Disease: Less than 60 mL/min/1.73 square meters End Stage Renal Disease: Less than 15 mL/min/1.73 square meters Performed By: #### A DIFF, BMP, ANEU, VIDH, URIC, CBC, GFR #### [place] [address] #### PTH #### [address] [address] .NEUABSon 02-21-2024 Neutrophil, Absolute 5.2 10 3/mcL Normal 2.9-6.2 [facility] ([place]) Comment on above: Performed By: #### A DIFF, BMP, ANEU, VIDH, URIC, CBC, GFR #### [place] [address] #### PTH #### [address] [address] BUN/Creatinine Ratio 13 ratio Normal 7-27 [facility] ([place]) Comment on above: Performed By: #### A DIFF, BMP, ANEU, VIDH, URIC, CBC, GFR #### [place] [id number] #### PTH #### [address] [address] Calcium [Mass/Vol] 10.1 mg/dL Normal 8.4-10.2 [facility] ([place]) Comment on above: Performed By: #### A DIFF, BMP, ANEU, VIDH, URIC, CBC, GFR #### [place] [address] #### PTH #### [address] [address] Chloride [Moles/Vol] 105 mmol/L Normal 98-107 [facility] ([place]) Comment on above: Performed By: #### A DIFF, BMP, ANEU, VIDH, URIC, CBC, GFR #### [address] [address] #### PTH #### [address] [address] CO2 [Moles/Vol] 29 mmol/L Normal 23-31 [facility] ([place]) Comment on above: Performed By: #### A DIFF, BMP, ANEU, VIDH, URIC, CBC, GFR #### [address] [address] #### PTH #### [address] [address] Creatinine [Mass/Vol] 2.85 mg/dL High 0.70-1.30 [facility] ([place]) Comment on above: Performed By: #### A DIFF, BMP, ANEU, VIDH, URIC, CBC, GFR #### [address] [address] #### PTH #### [address] [address] Electrolyte Balance 8.0 mEq/L Normal 4.0-15.0 [facility] ([place]) Comment on above: Performed By: #### A DIFF, BMP, ANEU, VIDH, URIC, CBC, GFR #### [address] [address] #### PTH #### [address] [address] Glucose [Mass/Vol] 120 mg/dL High 83-110 [facility] ([place]) Comment on above: Performed By: #### A DIFF, BMP, ANEU, VIDH, URIC, CBC, GFR #### [address] [address] #### PTH #### [address] [address] Potassium [Moles/Vol] 5.0 mmol/L Normal 3.5-5.1 [facility] ([place]) Comment on above: Performed By: #### A DIFF, BMP, ANEU, VIDH, URIC, CBC, GFR #### [address] [address] #### PTH #### [place] [address] Sodium [Moles/Vol] 142 mmol/L Normal 136-145 [facility] ([place]) Comment on above: Performed By: #### A DIFF, BMP, ANEU, VIDH, URIC, CBC, GFR #### [place] [address] #### PTH #### [place] [address] Urea nitrogen [Mass/Vol] 36 mg/dL High 7-18 [facility] ([place]) Comment on above: Performed By: #### A DIFF, BMP, ANEU, VIDH, URIC, CBC, GFR #### [place] [address] #### PTH #### [place] [address] CBCon 02-21-2024 Erythrocyte distribution width (RBC) [Ratio] 14.8 % High 11.5-14.5 [facility] ([place]) Comment on above: Performed By: #### A DIFF, BMP, ANEU, VIDH, URIC, CBC, GFR #### [place] [address] #### PTH #### [place] [address] Hematocrit (Bld) [Volume fraction] 34.7 % Low 42.0-52.0 [facility] ([place]) Comment on above: Performed By: #### A DIFF, BMP, ANEU, VIDH, URIC, CBC, GFR #### [place] [address] #### PTH #### [place] [address] Hgb 11.4 G/dL Low 14.0-18.0 [facility] ([place]) Comment on above: Performed By: #### A DIFF, BMP, ANEU, VIDH, URIC, CBC, GFR #### [place] [address] #### PTH #### [place] [address] MCH (RBC) [Entitic mass] 28.3 pg Normal 27.0-31.2 [facility] ([place]) Comment on above: Performed By: #### A DIFF, BMP, ANEU, VIDH, URIC, CBC, GFR #### [place] [address] #### PTH #### [place] [address] MCHC 32.8 G/dL Normal 31.8-35.4 [facility] ([place]) Comment on above: Performed By: #### A DIFF, BMP, ANEU, VIDH, URIC, CBC, GFR #### [place] [address] #### PTH #### [place] [address] MCV (RBC) [Entitic vol] 86.4 fL Normal 80.0-94.0 A [facility] ([place]) Comment on above: Performed By: #### A DIFF, BMP, ANEU, VIDH, URIC, CBC, GFR #### [place] [address] #### PTH #### [place] [address] Platelet 93 10 3/mcL Low 130-400 [facility] ([place]) Comment on above: Performed By: #### A DIFF, BMP, ANEU, VIDH, URIC, CBC, GFR #### [place] [address] #### PTH #### [place] [address] Platelet mean volume (Bld) [Entitic vol] 8.2 fL Normal 7.4-10.4 [facility] ([place]) Comment on above: Performed By: #### A DIFF, BMP, ANEU, VIDH, URIC, CBC, GFR #### [place] [address] #### PTH #### [place] [address] RBC 4.01 10 6/mcL Low 4.04-6.13 [facility] ([place]) Comment on above: Performed By: #### A DIFF, BMP, ANEU, VIDH, URIC, CBC, GFR #### [place] [address] #### PTH #### [place] [address] WBC 7.8 10 3/mcL Normal 4.6-10.8 [facility] ([place]) Comment on above: Performed By: #### A DIFF, BMP, ANEU, VIDH, URIC, CBC, GFR #### [place] [address] #### PTH #### [place] [address] CRURon 02-21-2024 U Creatinine 98.9 mg/dL Normal 39.0-259.0 [facility] ([place]) Comment on above: Performed By: #### A DIFF, BMP, ANEU, VIDH, URIC, CBC, GFR #### [place] [address] #### PTH #### [place] [address] LABORATORYOrdered By: SYSTEM SYSTEM on 02-21-2024 Creatinine (U) [Mass/Vol] 98.9 mg/dL Normal 39.0 - 259.0 mg/dL AO ADM SS Protein (U) [Mass/Vol] 18 mg/dL High 0 - 1 1 mg/dL AO ADM SS 25-hydroxyvitamin D3 [Mass/Vol] 24.2 ng/mL Invalid Interpretation Code AO ADM SS Comment on above: Interpretive Data: I nterpretive Values Based on Total 25(OH) Vitamin D: Deficient <20 ng/mL Insufficient 20 - <30 ng/mL Sufficient 30-100 ng/mL Basophil, Absolute 0.1 103/mcL Normal 0.0 - 0.2 10^3/mcL AO Workflow SS Basophils/100 WBC (Bld) 0.7 % Normal 0.0 - 2.5 % AO Workflow SS Calcium [Mass/Vol] 10.1 mg/dL Normal 8.4 - 10. 2 mg/dL AO ADM SS Chloride [Moles/Vol] 105 mmol/L Normal 98 - 10 7 mmol/L AO ADM SS CO2 [Moles/Vol] 29 mmol/L Normal 23 - 31 mmol/L AO ADM SS Creatinine [Mass/Vol] 2.85 mg/dL High 0.70 - 1.30 mg/dL AO ADM SS Electrolyte Balance 8.0 mEq/L Normal 4.0 - 15 .0 mEq/L AO ADM SS Eosinophil, Absolute 0.2 103/mcL Normal 0.0 - 0 .4 10^3/mcL AO Workflow SS Eosinophils/100 WBC (Bld) 2.1 % Normal 0.0 - 7.0 % AO Workflow SS Erythrocyte distribution width (RBC) [Ratio] 14.8 % High 11.5 - 14.5 % AO Workflow SS GFR/1.73 sq M.predicted among blacks MDRD (S/P/Bld) [Vol rate/Area] 26 ml/min/1.73sqm Invalid Interpretation Code AO Chemistry S Comment on above: Interpretive Data: GFR Population mean for , Non- Americans Ages 20-29 = 116 mL/min/1.73 sq.m. Ages 30-39 = 107 mL/min/1.73 sq.m. Ages 40-49 = 99 mL/min/1.73 sq.m. Ages 50-59 = 93 mL/min/1.73 sq.m. Ages 60-69 = 85 mL/min/1.73 sq.m. Ages 70+ = 75 mL/min/1.73 sq.m. Chronic Kidney Disease: Less than 60 mL/min/1.73 square meters End Stage Renal Disease: Less than 15 mL/min/1.73 square meters GFR/1.73 sq M.predicted among non-blacks MDRD (S/P/Bld) [Vol rate/Area] 21 ml/min/1.73sqm Invalid Interpretation Code AO Chemistry S Comment on above: Interpretive Data: GFR Population mean for , Non- Americans Ages 20-29 = 116 mL/min/1.73 sq.m. Ages 30-39 = 107 mL/min/1.73 sq.m. Ages 40-49 = 99 mL/min/1.73 sq.m. Ages 50-59 = 93 mL/min/1.73 sq.m. Ages 60-69 = 85 mL/min/1.73 sq.m. Ages 70+ = 75 mL/min/1.73 sq.m. Chronic Kidney Disease: Less than 60 mL/min/1.73 square meters End Stage Renal Disease: Less than 15 mL/min/1.73 square meters Glucose [Mass/Vol] 120 mg/dL High 83 - 110 mg/dL AO ADM SS Hematocrit (Bld) [Volume fraction] 34.7 % Low 42.0 - 52.0 % AO Workflow SS Hemoglobin (Bld) [Mass/Vol] 11.4 G/dL Low 14.0 - 18.0 G/dL AO Workflow SS Lymphocyte, Absolute 2.0 103/mcL Normal 0.8 - 3 .9 10^3/mcL AO Workflow SS Lymphocytes/100 WBC (Bld) 25.0 % Normal 10.0 - 50.0 % AO Workflow SS MCH (RBC) [Entitic mass] 28.3 pg Normal 27. 0 - 31.2 pg AO Workflow SS MCHC 32.8 G/dL Normal 31.8 - 35.4 G/dL AO Workflow SS MCV (RBC) [Entitic vol] 86.4 fL Normal 80.0 - 94.0 fL AO Workflow SS Monocyte, Absolute 0.5 103/mcL Normal 0.2 - 1.0 10^3/mcL AO Workflow SS Monocytes/100 WBC (Bld) 6.0 % Normal 1.7 - 13.0 % AO Workflow SS Neutrophil, Absolute 5.2 103/mcL Normal 2.9 - 6 .2 10^3/mcL AO Workflow SS Neutrophils/100 WBC (Bld) 66.2 % Normal 37.0 - 80.0 % AO Workflow SS Parathyrin.intact [Mass/Vol] 32.4 pg/mL Normal 18.5 - 88.0 pg/mL AH ADM SS Platelet mean volume (Bld) [Entitic vol] 8.2 fL Normal 7.4 - 10.4 fL AO Workflow SS Platelets (Bld) [#/Vol] 93 103/mcL Low 130 - 400 10^3/mcL AO Workflow SS Potassium [Moles/Vol] 5.0 mmol/L Normal 3.5 - 5.1 mmol/L AO ADM SS RBC (Bld) [#/Vol] 4.01 106/mcL Low 4.04 - 6.13 10^6/mcL AO Workflow SS Sodium [Moles/Vol] 142 mmol/L Normal 136 - 145 mmol/L AO ADM SS Urea nitrogen [Mass/Vol] 36 mg/dL High 7 - 18 mg/dL AO ADM SS Urea nitrogen/Creatinine [Mass ratio] 13 ratio Normal 7 - 27 ratio AO ADM SS Uric Acid Lvl 8.8 mg/dL High 3.5 - 7.2 mg/dL AO ADM SS WBC (Bld) [#/Vol] 7.8 103/mcL Normal 4.6 - 10.8 10^3/mcL AO Workflow SS PRURon 02-21-2024 U Protein 18 mg/dL High 0-11 [facility] ([place]) Comment on above: Performed By: #### A DIFF, BMP, ANEU, VIDH, URIC, CBC, GFR #### [place] [address] #### PTH #### [place] [address] PTHon 02-21-2024 PTH, Intact 32.4 pg/mL Normal 18.5-88.0 [facility] ([place]) Comment on above: Performed By: #### A DIFF, BMP, ANEU, VIDH, URIC, CBC, GFR #### [place] [address] #### PTH #### [place] [address] URICon 02-21-2024 Uric Acid Lvl 8.8 mg/dL High 3.5-7.2 [facility] ([place]) Comment on above: Performed By: #### A DIFF, BMP, ANEU, VIDH, URIC, CBC, GFR #### [place] [id number] #### PTH #### [place] [address] VIDHon 02-21-2024 Vit. D 25-Hydroxy 24.2 ng/mL Normal [facility] ([place]) Comment on above: Result Comment: Inte rpretive Values Based on Total 25(OH) Vitamin D: Deficient <20 ng/mL Insufficient 20 - <30 ng/mL Sufficient 30-100 ng/mL Performed By: #### A DIFF, BMP, ANEU, VIDH, URIC, CBC, GFR #### [place] [address] #### PTH #### [place] [address] .Auto Diffon 10-27-2023 Basophil, Absolute 0.1 10 3/mcL Normal 0.0-0.2 [facility] ([place]) Comment on above: Performed By: #### A DIFF, BMP, ANEU, VIDH, URIC, CBC, GFR #### [place] [address] #### PTH #### [place] [address] Basophils/100 WBC (Bld) 0.8 % Normal 0.0-2.5 A [facility] ([place]) Comment on above: Performed By: #### A DIFF, BMP, ANEU, VIDH, URIC, CBC, GFR #### [place] [address] #### PTH #### [place] [address] Eosinophil, Absolute 0.2 10 3/mcL Normal 0.0-0.4 [facility] ([place]) Comment on above: Performed By: #### A DIFF, BMP, ANEU, VIDH, URIC, CBC, GFR #### [place] [address] #### PTH #### [place] [address] Eosinophils/100 WBC (Bld) 3.1 % Normal 0.0-7.0 [facility] ([place]) Comment on above: Performed By: #### A DIFF, BMP, ANEU, VIDH, URIC, CBC, GFR #### [address] [address] #### PTH #### [address] [address] Lymphocyte, Absolute 1.9 10 3/mcL Normal 0.8-3.9 [facility] ([place]) Comment on above: Performed By: #### A DIFF, BMP, ANEU, VIDH, URIC, CBC, GFR #### [address] [address] #### PTH #### [address] [address] Lymphocytes/100 WBC (Bld) 26.5 % Normal 10.0-50.0 [facility] ([place]) Comment on above: Performed By: #### A DIFF, BMP, ANEU, VIDH, URIC, CBC, GFR #### [address] [address] #### PTH #### [address] [address] Monocyte, Absolute 0.4 10 3/mcL Normal 0.2-1.0 [facility] ([place]) Comment on above: Performed By: #### A DIFF, BMP, ANEU, VIDH, URIC, CBC, GFR #### [address] [address] #### PTH #### [address] [address] Monocytes/100 WBC (Bld) 6.0 % Normal 1.7-13.0 A [facility] ([place]) Comment on above: Performed By: #### A DIFF, BMP, ANEU, VIDH, URIC, CBC, GFR #### [address] [address] #### PTH #### [address] [address] Neutrophils/100 WBC (Bld) 63.6 % Normal 37.0-80.0 [facility] ([place]) Comment on above: Performed By: #### A DIFF, BMP, ANEU, VIDH, URIC, CBC, GFR #### [address] [address] #### PTH #### [address] [address] .GFRon 10-27-2023 GFR 29 ml/min/1.73sqm Normal [facility] ([place]) Comment on above: Result Comment: GFR Population mean for , Non- Americans Ages 20-29 = 116 mL/min/1.73 sq.m. Ages 30-39 = 107 mL/min/1.73 sq.m. Ages 40-49 = 99 mL/min/1.73 sq.m. Ages 50-59 = 93 mL/min/1.73 sq.m. Ages 60-69 = 85 mL/min/1.73 sq.m. Ages 70+ = 75 mL/min/1.73 sq.m. Chronic Kidney Disease: Less than 60 mL/min/1.73 square meters End Stage Renal Disease: Less than 15 mL/min/1.73 square meters Performed By: #### A DIFF, BMP, ANEU, VIDH, URIC, CBC, GFR #### [address] [address] #### PTH #### [address] [address] GFR Non- 24 ml/min/1.73sqm Normal [facility] ([place]) Comment on above: Result Comment: GFR Population mean for , Non- Americans Ages 20-29 = 116 mL/min/1.73 sq.m. Ages 30-39 = 107 mL/min/1.73 sq.m. Ages 40-49 = 99 mL/min/1.73 sq.m. Ages 50-59 = 93 mL/min/1.73 sq.m. Ages 60-69 = 85 mL/min/1.73 sq.m. Ages 70+ = 75 mL/min/1.73 sq.m. Chronic Kidney Disease: Less than 60 mL/min/1.73 square meters End Stage Renal Disease: Less than 15 mL/min/1.73 square meters Performed By: #### A DIFF, BMP, ANEU, VIDH, URIC, CBC, GFR #### [address] [address] #### PTH #### [address] [address] .NEUABSon 10-27-2023 Neutrophil, Absolute 4.5 10 3/mcL Normal 2.9-6.2 [facility] ([place]) Comment on above: Performed By: #### A DIFF, BMP, ANEU, VIDH, URIC, CBC, GFR #### [place] [address] #### PTH #### [address] [address] BMPon 10-27-2023 BUN/Creatinine Ratio 13 ratio Normal 7-27 [facility] ([place]) Comment on above: Performed By: #### A DIFF, BMP, ANEU, VIDH, URIC, CBC, GFR #### [place] [address] #### PTH #### [place] [address] Calcium [Mass/Vol] 9.6 mg/dL Normal 8.4-10.2 [facility] ([place]) Comment on above: Performed By: #### A DIFF, BMP, ANEU, VIDH, URIC, CBC, GFR #### [place] [address] #### PTH #### [place] [address] Chloride [Moles/Vol] 107 mmol/L Normal 98-107 [facility] ([place]) Comment on above: Performed By: #### A DIFF, BMP, ANEU, VIDH, URIC, CBC, GFR #### [place] [address] #### PTH #### [place] [address] CO2 [Moles/Vol] 29 mmol/L Normal 23-31 [facility] ([place]) Comment on above: Performed By: #### A DIFF, BMP, ANEU, VIDH, URIC, CBC, GFR #### [place] [address] #### PTH #### [address] [address] Creatinine [Mass/Vol] 2.58 mg/dL High 0.70-1.30 [facility] ([place]) Comment on above: Performed By: #### A DIFF, BMP, ANEU, VIDH, URIC, CBC, GFR #### [address] [address] #### PTH #### [place] [address] Electrolyte Balance 7.0 mEq/L Normal 4.0-15.0 [facility] ([place]) Comment on above: Performed By: #### A DIFF, BMP, ANEU, VIDH, URIC, CBC, GFR #### [place] [address] #### PTH #### [place] [address] Glucose [Mass/Vol] 113 mg/dL High 83-110 [facility] ([place]) Comment on above: Performed By: #### A DIFF, BMP, ANEU, VIDH, URIC, CBC, GFR #### [place] [address] #### PTH #### [place] [address] Potassium [Moles/Vol] 4.0 mmol/L Normal 3.5-5.1 [facility] ([place]) Comment on above: Performed By: #### A DIFF, BMP, ANEU, VIDH, URIC, CBC, GFR #### [place] [address] #### PTH #### [place] [address] Sodium [Moles/Vol] 143 mmol/L Normal 136-145 [facility] ([place]) Comment on above: Performed By: #### A DIFF, BMP, ANEU, VIDH, URIC, CBC, GFR #### [place] [address] #### PTH #### [address] [address] Urea nitrogen [Mass/Vol] 34 mg/dL High 7-18 [facility] ([place]) Comment on above: Performed By: #### A DIFF, BMP, ANEU, VIDH, URIC, CBC, GFR #### [address] [address] #### PTH #### [address] [address] CBCon 10-27-2023 Erythrocyte distribution width (RBC) [Ratio] 15.1 % High 11.5-14.5 [facility] ([place]) Comment on above: Performed By: #### A DIFF, BMP, ANEU, VIDH, URIC, CBC, GFR #### [place] [address] #### PTH #### [place] [address] Hematocrit (Bld) [Volume fraction] 32.2 % Low 42.0-52.0 [facility] ([place]) Comment on above: Performed By: #### A DIFF, BMP, ANEU, VIDH, URIC, CBC, GFR #### [place] [address] #### PTH #### [place] [address] Hgb 10.9 G/dL Low 14.0-18.0 [facility] ([place]) Comment on above: Performed By: #### A DIFF, BMP, ANEU, VIDH, URIC, CBC, GFR #### [place] [address] #### PTH #### [place] [address] MCH (RBC) [Entitic mass] 29.1 pg Normal 27.0-31.2 [facility] ([place]) Comment on above: Performed By: #### A DIFF, BMP, ANEU, VIDH, URIC, CBC, GFR #### [place] [address] #### PTH #### [place] [id number] MCHC 33.8 G/dL Normal 31.8-35.4 [facility] ([place]) Comment on above: Performed By: #### A DIFF, BMP, ANEU, VIDH, URIC, CBC, GFR #### [place] [address] #### PTH #### [place] [address] MCV (RBC) [Entitic vol] 86.0 fL Normal 80.0-94.0 A [facility] ([place]) Comment on above: Performed By: #### A DIFF, BMP, ANEU, VIDH, URIC, CBC, GFR #### [place] [address] #### PTH #### [place] [address] Platelet 101 10 3/mcL Low 130-400 [facility] ([place]) Comment on above: Performed By: #### A DIFF, BMP, ANEU, VIDH, URIC, CBC, GFR #### [place] [address] #### PTH #### [place] [address] Platelet mean volume (Bld) [Entitic vol] 7.7 fL Normal 7.4-10.4 [facility] ([place]) Comment on above: Performed By: #### A DIFF, BMP, ANEU, VIDH, URIC, CBC, GFR #### [place] [address] #### PTH #### [place] [address] RBC 3.74 10 6/mcL Low 4.04-6.13 [facility] ([place]) Comment on above: Performed By: #### A DIFF, BMP, ANEU, VIDH, URIC, CBC, GFR #### [place] [address] #### PTH #### [place] [address] WBC 7.0 10 3/mcL Normal 4.6-10.8 [facility] ([place]) Comment on above: Performed By: #### A DIFF, BMP, ANEU, VIDH, URIC, CBC, GFR #### [address] [address] #### PTH #### [place] [address] CRURon 10-27-2023 U Creatinine 107.8 mg/dL Normal 39.0-259.0 [facility] ([place]) Comment on above: Performed By: #### A DIFF, BMP, ANEU, VIDH, URIC, CBC, GFR #### [place] [address] #### PTH #### [place] [address] PRURon 10-27-2023 U Protein 22 mg/dL High 0-11 [facility] ([place]) Comment on above: Performed By: #### A DIFF, BMP, ANEU, VIDH, URIC, CBC, GFR #### [place] [address] #### PTH #### [place] [address] PTHon 10-27-2023 PTH, Intact 48.1 pg/mL Normal 18.5-88.0 [facility] ([place]) Comment on above: Performed By: #### A DIFF, BMP, ANEU, VIDH, URIC, CBC, GFR #### [place] [address] #### PTH #### [place] [address] URICon 10-27-2023 Uric Acid Lvl 8.0 mg/dL High 3.5-7.2 [facility] ([place]) Comment on above: Performed By: #### A DIFF, BMP, ANEU, VIDH, URIC, CBC, GFR #### [place] [address] #### PTH #### [place] [address] VIDHon 10-27-2023 Vit. D 25-Hydroxy 29.2 ng/mL Normal [facility] ([place]) Comment on above: Result Comment: Inte rpretive Values Based on Total 25(OH) Vitamin D: Deficient <20 ng/mL Insufficient 20 - <30 ng/mL Sufficient 30-100 ng/mL Performed By: #### A DIFF, BMP, ANEU, VIDH, URIC, CBC, GFR #### [place] [address] #### PTH #### [address] [address] VIDDHon 06-10-2023 Vit. D 1,25 Dihydro. 25.6 pg/mL Normal 19.9-79.3 [facility] ([place]) Comment on above: Result Comment: Perf ormed By: [email or web address] [address] [place] [address] Gift Consultant: Matthew Cheek III#: [id number] Performed By: #### A DIFF, BMP, ANEU, VIDH, URIC, CBC, GFR #### [place] [address] #### PTH #### [address] [address] .Auto Diffon 06-09-2023 Basophil, Absolute 0.1 10 3/mcL Normal 0.0-0.2 [facility] ([place]) Comment on above: Performed By: #### A DIFF, BMP, ANEU, VIDH, URIC, CBC, GFR #### [place] [address] #### PTH #### [address] [address] Basophils/100 WBC (Bld) 0.8 % Normal 0.0-2.5 A [facility] ([place]) Comment on above: Performed By: #### A DIFF, BMP, ANEU, VIDH, URIC, CBC, GFR #### [place] [address] #### PTH #### [address] [address] Eosinophil, Absolute 0.3 10 3/mcL Normal 0.0-0.4 [facility] ([place]) Comment on above: Performed By: #### A DIFF, BMP, ANEU, VIDH, URIC, CBC, GFR #### [address] [address] #### PTH #### [address] [address] Eosinophils/100 WBC (Bld) 3.8 % Normal 0.0-7.0 [facility] ([place]) Comment on above: Performed By: #### A DIFF, BMP, ANEU, VIDH, URIC, CBC, GFR #### [address] [address] #### PTH #### [address] [address] Lymphocyte, Absolute 1.9 10 3/mcL Normal 0.8-3.9 [facility] ([place]) Comment on above: Performed By: #### A DIFF, BMP, ANEU, VIDH, URIC, CBC, GFR #### [address] [address] #### PTH #### [address] [address] Lymphocytes/100 WBC (Bld) 27.1 % Normal 10.0-50.0 [facility] ([place]) Comment on above: Performed By: #### A DIFF, BMP, ANEU, VIDH, URIC, CBC, GFR #### [place] [address] #### PTH #### [address] [address] Monocyte, Absolute 0.4 10 3/mcL Normal 0.2-1.0 [facility] ([place]) Comment on above: Performed By: #### A DIFF, BMP, ANEU, VIDH, URIC, CBC, GFR #### [address] [address] #### PTH #### [address] [address] Monocytes/100 WBC (Bld) 5.6 % Normal 1.7-13.0 A [facility] ([place]) Comment on above: Performed By: #### A DIFF, BMP, ANEU, VIDH, URIC, CBC, GFR #### [address] [address] #### PTH #### [address] [address] Neutrophils/100 WBC (Bld) 62.7 % Normal 37.0-80.0 [facility] ([place]) Comment on above: Performed By: #### A DIFF, BMP, ANEU, VIDH, URIC, CBC, GFR #### [address] [address] #### PTH #### [address] [address] .GFRon 06-09-2023 GFR Non- 20 ml/min/1.73sqm Normal [facility] ([place]) Comment on above: Result Comment: GFR Population mean for , Non- Americans Ages 20-29 = 116 mL/min/1.73 sq.m. Ages 30-39 = 107 mL/min/1.73 sq.m. Ages 40-49 = 99 mL/min/1.73 sq.m. Ages 50-59 = 93 mL/min/1.73 sq.m. Ages 60-69 = 85 mL/min/1.73 sq.m. Ages 70+ = 75 mL/min/1.73 sq.m. Chronic Kidney Disease: Less than 60 mL/min/1.73 square meters End Stage Renal Disease: Less than 15 mL/min/1.73 square meters Performed By: #### A DIFF, BMP, ANEU, VIDH, URIC, CBC, GFR #### [address] [address] #### PTH #### [address] [address] GFR 25 ml/min/1.73sqm Normal [facility] ([place]) Comment on above: Result Comment: GFR Population mean for , Non- Americans Ages 20-29 = 116 mL/min/1.73 sq.m. Ages 30-39 = 107 mL/min/1.73 sq.m. Ages 40-49 = 99 mL/min/1.73 sq.m. Ages 50-59 = 93 mL/min/1.73 sq.m. Ages 60-69 = 85 mL/min/1.73 sq.m. Ages 70+ = 75 mL/min/1.73 sq.m. Chronic Kidney Disease: Less than 60 mL/min/1.73 square meters End Stage Renal Disease: Less than 15 mL/min/1.73 square meters Performed By: #### A DIFF, BMP, ANEU, VIDH, URIC, CBC, GFR #### [address] [address] #### PTH #### [address] [address] .NEUABSon 06-09-2023 Neutrophil, Absolute 4.3 10 3/mcL Normal 2.9-6.2 [facility] ([place]) Comment on above: Performed By: #### A DIFF, BMP, ANEU, VIDH, URIC, CBC, GFR #### [address] [address] #### PTH #### [id number] [place] [address] 06-09-2023 BUN/Creatinine Ratio 11 ratio Normal 7-27 [facility] ([place]) Comment on above: Performed By: #### A DIFF, BMP, ANEU, VIDH, URIC, CBC, GFR #### [place] [address] #### PTH #### [address] [address] Calcium [Mass/Vol] 9.8 mg/dL Normal 8.4-10.2 [facility] ([place]) Comment on above: Performed By: #### A DIFF, BMP, ANEU, VIDH, URIC, CBC, GFR #### [address] [address] #### PTH #### [address] [address] Chloride [Moles/Vol] 107 mmol/L Normal 98-107 [facility] ([place]) Comment on above: Performed By: #### A DIFF, BMP, ANEU, VIDH, URIC, CBC, GFR #### [address] [address] #### PTH #### [address] [address] CO2 [Moles/Vol] 31 mmol/L Normal 23-31 [facility] ([place]) Comment on above: Performed By: #### A DIFF, BMP, ANEU, VIDH, URIC, CBC, GFR #### [place] [address] #### PTH #### [address] [address] Creatinine [Mass/Vol] 2.98 mg/dL High 0.70-1.30 [facility] ([place]) Comment on above: Performed By: #### A DIFF, BMP, ANEU, VIDH, URIC, CBC, GFR #### [place] [address] #### PTH #### [address] [address] Electrolyte Balance 6.0 mEq/L Normal 4.0-15.0 [facility] ([place]) Comment on above: Performed By: #### A DIFF, BMP, ANEU, VIDH, URIC, CBC, GFR #### [place] [address] #### PTH #### [address] [address] Glucose [Mass/Vol] 106 mg/dL Normal 83-110 [facility] ([place]) Comment on above: Performed By: #### A DIFF, BMP, ANEU, VIDH, URIC, CBC, GFR #### [place] [address] #### PTH #### [address] [address] Potassium [Moles/Vol] 5.0 mmol/L Normal 3.5-5.1 [facility] ([place]) Comment on above: Performed By: #### A DIFF, BMP, ANEU, VIDH, URIC, CBC, GFR #### [address] [address] #### PTH #### [address] [address] Sodium [Moles/Vol] 144 mmol/L Normal 136-145 [facility] ([place]) Comment on above: Performed By: #### A DIFF, BMP, ANEU, VIDH, URIC, CBC, GFR #### [place] [address] #### PTH #### [address] [address] Urea nitrogen [Mass/Vol] 32 mg/dL High 7-18 [facility] ([place]) Comment on above: Performed By: #### A DIFF, BMP, ANEU, VIDH, URIC, CBC, GFR #### [place] [address] #### PTH #### [address] [address] CBCon 06-09-2023 Erythrocyte distribution width (RBC) [Ratio] 15.0 % High 11.5-14.5 [facility] ([place]) Comment on above: Performed By: #### A DIFF, BMP, ANEU, VIDH, URIC, CBC, GFR #### [place] [address] #### PTH #### [address] [address] Hematocrit (Bld) [Volume fraction] 32.1 % Low 42.0-52.0 [facility] ([place]) Comment on above: Performed By: #### A DIFF, BMP, ANEU, VIDH, URIC, CBC, GFR #### [place] [address] #### PTH #### [address] [address] Hgb 10.7 G/dL Low 14.0-18.0 [facility] ([place]) Comment on above: Performed By: #### A DIFF, BMP, ANEU, VIDH, URIC, CBC, GFR #### [place] [address] #### PTH #### [place] [address] MCH (RBC) [Entitic mass] 29.1 pg Normal 27.0-31.2 [facility] ([place]) Comment on above: Performed By: #### A DIFF, BMP, ANEU, VIDH, URIC, CBC, GFR #### [place] [address] #### PTH #### [place] [address] MCHC 33.4 G/dL Normal 31.8-35.4 [facility] ([place]) Comment on above: Performed By: #### A DIFF, BMP, ANEU, VIDH, URIC, CBC, GFR #### [place] [address] #### PTH #### [place] [address] MCV (RBC) [Entitic vol] 86.9 fL Normal 80.0-94.0 A [facility] ([place]) Comment on above: Performed By: #### A DIFF, BMP, ANEU, VIDH, URIC, CBC, GFR #### [place] [address] #### PTH #### [place] [address] Platelet 118 10 3/mcL Low 130-400 [facility] ([place]) Comment on above: Performed By: #### A DIFF, BMP, ANEU, VIDH, URIC, CBC, GFR #### [place] [address] #### PTH #### [place] [address] Platelet mean volume (Bld) [Entitic vol] 8.4 fL Normal 7.4-10.4 [facility] ([place]) Comment on above: Performed By: #### A DIFF, BMP, ANEU, VIDH, URIC, CBC, GFR #### [address] [address] #### PTH #### [address] [address] RBC 3.70 10 6/mcL Low 4.04-6.13 [facility] ([place]) Comment on above: Performed By: #### A DIFF, BMP, ANEU, VIDH, URIC, CBC, GFR #### [place] [address] #### PTH #### [place] [address] WBC 6.8 10 3/mcL Normal 4.6-10.8 [facility] ([place]) Comment on above: Performed By: #### A DIFF, BMP, ANEU, VIDH, URIC, CBC, GFR #### [place] [address] #### PTH #### [place] [address] CRURon 06-09-2023 U Creatinine 94.6 mg/dL Normal 39.0-259.0 [facility] ([place]) Comment on above: Performed By: #### P RODRIGO ADAMS #### [address] [address] PRURon 06-09-2023 U Protein 23 mg/dL High 0-11 [facility] ([place]) Comment on above: Performed By: #### P JASS ADAMSUR #### [place] [address] PTHon 06-09-2023 PTH, Intact 55.8 pg/mL Normal 18.5-88.0 [facility] ([place]) Comment on above: Performed By: #### A DIFF, BMP, ANEU, VIDH, URIC, CBC, GFR #### [address] [address] #### PTH #### [place] [address] URICon 06-09-2023 Uric Acid Lvl 8.6 mg/dL High 3.5-7.2 [facility] ([place]) Comment on above: Performed By: #### A DIFF, BMP, ANEU, VIDH, URIC, CBC, GFR #### [facility] [address] [place], [place] [address] #### PTH #### [facility] [address] [place] [address] Albumin Elph [Mass/Vol]Order ed By: Braxton Doss on 04-01-2023 Albumin [Mass/Vol] 3.9 g/dL 2.9-4.4 [facility] Basophil percentageOrdered B y: Braxton Doss on 04-01-2023 Basophil percentage Comment . [facility] Comment on above: No monoclonality det ected.Performed at: [facility] [place] [id number] Director: Jonnathan Meeks PhD, Phone: [phone] No Panel InformationOrdered By: Braxton Doss on 04-01-2023 Addendum Document Comment . [facility] Comment on above: Protein electrophore sis scan will follow via computer,mail, or director of automation delivery. Serum [id number] measu rement by electrophoresisOrdered By: Braxton Doss on 04-01-2023 Alpha 1 globulin Elph [Mass/Vol] 0.2 g/dL 0.0-0.4 [facility] Alpha 1 globulin Elph [Mass/Vol] 0.7 g/dL 0.4-1.0 [facility] Serum globulin measurement ( mass/volume)Ordered By: Braxton Doss on 04-01-2023 Globulin (S) [Mass/Vol] 2.6 g/dL 2.2-3.9 [facility] Serum or plasma IgA measurem ent (mass/volume)Ordered By: Braxton Doss on 04-01-2023 IgA [Mass/Vol] 337 mg/dL 61-437 [facility] Serum or plasma IgG measurem ent (mass/volume)Ordered By: Braxton Doss on 04-01-2023 IgG [Mass/Vol] 823 mg/dL 603-1613 [facility] Serum or plasma IgM measurem ent (mass/volume)Ordered By: Braxton Doss on 04-01-2023 IgM [Mass/Vol] 59 mg/dL 15-143 [facility] Serum or plasma beta globuli n measurement by electrophoresis (mass/volume)Ordered By: Braxton Thayerkelsey on 04-01-2023 Beta globulin Elph [Mass/Vol] 1.1 g/dL 0.7-1.3 [facility] Serum or plasma gamma globul in measurement by electrophoresis (mass/volume)Ordered By: Braxtoncassandra Doss on 04-01-2023 Gamma globulin Elph [Mass/Vol] 0.6 g/dL 0.4-1.8 [facility] Serum or plasma immunoelectr ophoresis interpretation (nominal result)Ordered By: Braxtoncassandra Doss on 04-01-2023 Interpretation IEP [Interp] Comment . [facility] Comment on above: No monoclonality det ected. Thin prep Papanicolaou smear with manual screeningOrdered By: Braxtoncassandra Doss on 04-01-2023 Thin prep Papanicolaou smear with manual screening 1.6 0.7-1.7 [facility] Total protein bloodOrdered B y: Braxton Romario on 04-01-2023 Protein [Mass/Vol] 6.5 g/dL 6.0-8.5 [facility] HFPon 02-25-2023 Bili Indirect 0.3 mg/dL Normal [facility] ([place]) Comment on above: Performed By: #### A DIFF, BMP, ANEU, VIDH, URIC, CBC, GFR #### [address] [address] #### PTH #### [address] [address] Albumin Level 3.8 G/dL Normal 3.4-4.8 [facility] ([place]) Comment on above: Performed By: #### A DIFF, BMP, ANEU, VIDH, URIC, CBC, GFR #### [address] [address] #### PTH #### [address] [address] Albumin/Globulin [Mass ratio] 1.4 {ratio} Normal 1.1-2.5 [facility] ([place]) Comment on above: Performed By: #### A DIFF, BMP, ANEU, VIDH, URIC, CBC, GFR #### [place] [address] #### PTH #### [address] [address] ALP [Catalytic activity/Vol] 62 U/L Normal 40-135 [facility] ([place]) Comment on above: Performed By: #### A DIFF, BMP, ANEU, VIDH, URIC, CBC, GFR #### [place] [address] #### PTH #### [place] [address] ALT [Catalytic activity/Vol] 14 U/L Low 16-63 [facility] ([place]) Comment on above: Performed By: #### A DIFF, BMP, ANEU, VIDH, URIC, CBC, GFR #### [place] [address] #### PTH #### [place] [address] AST [Catalytic activity/Vol] 22 U/L Normal 10-40 [facility] ([place]) Comment on above: Performed By: #### A DIFF, BMP, ANEU, VIDH, URIC, CBC, GFR #### [place] [address] #### PTH #### [place] [address] Bili Direct 0.2 mg/dL Normal 0.0-0.2 [facility] ([place]) Comment on above: Result Comment: Use of this assay is not recommended for patients undergoing treatment with eltrombopag due to the potential for falsely elevated results. Performed By: #### A DIFF, BMP, ANEU, VIDH, URIC, CBC, GFR #### [place] [address] #### PTH #### [place] [address] Bili Total 0.5 mg/dL Normal 0.2-1.0 [facility] ([place]) Comment on above: Result Comment: Use of this assay is not recommended for patients undergoing treatment with eltrombopag due to the potential for falsely elevated results. Performed By: #### A DIFF, BMP, ANEU, VIDH, URIC, CBC, GFR #### [address] [address] #### PTH #### [address] [address] Globulin 2.7 G/dL Normal [facility] ([place]) Comment on above: Performed By: #### A DIFF, BMP, ANEU, VIDH, URIC, CBC, GFR #### [address] [address] #### PTH #### [address] [address] Total Protein 6.5 G/dL Normal 6.4-8.2 [facility] ([place]) Comment on above: Performed By: #### A DIFF, BMP, ANEU, VIDH, URIC, CBC, GFR #### [address] [address] #### PTH #### [address] [address] LIPIDon 02-25-2023 Cholesterol [Mass/Vol] 85 mg/dL Normal 0-200 [facility] ([place]) Comment on above: Result Comment: Chol esterol Reference Interval: Less than 200 Desirable 200-239 Borderline high risk 240 and above High risk Performed By: #### A DIFF, BMP, ANEU, VIDH, URIC, CBC, GFR #### [address] [address] #### PTH #### [address] [address] Cholesterol in HDL [Mass/Vol] 41 mg/dL Normal 40-60 [facility] ([place]) Comment on above: Performed By: #### A DIFF, BMP, ANEU, VIDH, URIC, CBC, GFR #### [address] [address] #### PTH #### [address] [address] Cholesterol in LDL [Mass/Vol] 33 mg/dL Normal 0-130 [facility] ([place]) Comment on above: Performed By: #### A DIFF, BMP, ANEU, VIDH, URIC, CBC, GFR #### [address] [address] #### PTH #### [address] [address] Triglyceride [Mass/Vol] 53 mg/dL Normal 0-150 A [facility] ([place]) Comment on above: Result Comment: Trig lyceride Reference Interval: Less than 150 Normal 150-199 Borderline high risk 200-499 High risk 500 or higher Very high risk Performed By: #### A DIFF, BMP, ANEU, VIDH, URIC, CBC, GFR #### [address] [address] #### PTH #### [address] [address] Basophil percentageOrdered B y: Dr. Doss on 12-08-2022 Bilirubin [Mass/Vol] 0.70 mg/dL 0.20-1.00 [facility] Comment on above: For patients on eltr ombopag therapy, use of Dimension [place] TBIL is not recommended. Chloride [Moles/Vol] 107 mmol/L 98-107 [facility] Glucose [Mass/Vol] 165 mg/dL 74-106 [facility] Comment on above: Fasting Glucose resu lt greater than or equal to 126 mg/dL suggests DIABETES MELLITUS per A.D.A. criteria. Potassium [Moles/Vol] 4.5 mmol/L 3.5-5.1 [facility] Protein [Mass/Vol] 7.2 g/dL 6.4-8.2 [facility] Sodium [Moles/Vol] 140 mmol/L 136-145 [facility] WBC (Bld) [#/Vol] 8.3 10*3/uL 4.4-11.0 [facility] Blood erythrocytes count (nu mber/volume)Ordered By: Dr. Doss on 12-08-2022 RBC (Bld) [#/Vol] 3.84 10*6/uL 4.6-6.2 [facility] Blood hemoglobin measurement (mass/volume)Ordered By: Dr. Doss on 12-08-2022 Hemoglobin (Bld) [Mass/Vol] 11.3 g/dL 13.0-16.5 [facility] Blood platelet mean volumeOr dered By: Dr. Doss on 12-08-2022 Platelet mean volume (Bld) [Entitic vol] 11.2 fL 6.2-12.0 [facility] Determination of erythrocyte mean corpuscular volume (MCV)Ordered By: Dr. Doss on 12-08-2022 MCV (RBC) [Entitic vol] 91.7 fL 80-94 [facility] Hematocrit Auto (Bld) [Volum e fraction]Ordered By: Dr. Doss on 12-08-2022 Hematocrit (Bld) [Volume fraction] 35.2 % 40-54 [facility] Laboratory - Chemistry and C hemistry - challengeOrdered By: Dr. Doss on 12-08-2022 ALP [Catalytic activity/Vol] 55 U/L 45-117 [facility] ALT [Catalytic activity/Vol] 16 U/L 16-61 [facility] CO2 [Moles/Vol] 29.0 mmol/L 21.0-32.0 [facility] Cobalamin (Vitamin B12) [Mass/Vol] 426 pg/mL 211-911 [facility] Globulin (S) [Mass/Vol] 3.4 g/dL 2.2-4.2 [facility] Urea nitrogen/Creatinine [Mass ratio] 13.2 mg/mg 10-20 [facility] Laboratory - Hematology and Cell countsOrdered By: Dr. Doss on 12-08-2022 Erythrocyte distribution width (RBC) [Entitic vol] 47.5 fL 35.1-43.9 [facility] Erythrocyte distribution width (RBC) [Ratio] 14.1 % 11.6-14.6 [facility] MCH (RBC) [Entitic mass] 29.4 pg 27.0-32.0 [facility] MCHC Auto (RBC) [Mass/Vol]Or dered By: Dr. Doss on 12-08-2022 MCHC (RBC) [Mass/Vol] 32.1 g/dL 32-36 [facility] No Panel InformationOrdered By: Dr. Doss on 12-08-2022 Estimated GFR (MDRD) Amer 28 mL/min >60 [facility] Comment on above: GFR Calc Estimated GFR (MDRD) Non-Af Amer 23 mL/min >60 [facility] Comment on above: Non- GFR Calc Free Lambda Light Chains, Quant 38.1 mg/L 5.7-26.3 [facility] Thyroid Stimulating Hormone (TSH) 1.17 uIU/mL 0.358-3.74 [facility] Whole Blood Vitamin B1 Level 120.3 nmol/L 66.5-200.0 [facility] Comment on above: Performed at: [employer] [facility] [address] [id number] Director: Jonnathan Meeks PhD, Phone: [phone] at: [facility] Lab[address] [id number] Director: Mariaelena Hanna MD, Phone: [phone] Platelets bldOrdered By: Dr. Doss on 12-08-2022 Platelets (Bld) [#/Vol] 162 10*3/uL 150-450 [facility] Serum immunoglobulin kappa l ight chains/immunoglobulin lambda light chains mass ratioOrdered By: Dr. Doss on 12-08-2022 Immunoglobulin light chains.kappa/Immunoglobu katie light chains.lambda (S) [Mass ratio] 1.89 0.26-1.65 [facility] Serum or plasma albumin francisco urement (mass/volume)Ordered By: Dr. Doss on 12-08-2022 Albumin [Mass/Vol] 3.8 g/dL 3.2-5.0 [facility] Serum or plasma albumin/glob ulin mass ratioOrdered By: Dr. Doss on 12-08-2022 Albumin/Globulin [Mass ratio] 1.1 {ratio} 0.9-2.4 [facility] Serum or plasma calcium francisco urement (mass/volume)Ordered By: Dr. Doss on 12-08-2022 Calcium [Mass/Vol] 10.1 mg/dL 8.5-10.1 [facility] Serum or plasma creatinine m easurement (mass/volume)Ordered By: Dr. Doss on 12-08-2022 Creatinine [Mass/Vol] 2.81 mg/dL 0.70-1.30 [facility] Comment on above: The validity of the calculated GFR & GFRAA in patients over 70 years has not been determined. Clinical correlation is essential. Serum or plasma folate measu rement (mass/volume)Ordered By: Dr. Doss on 12-08-2022 Folate [Mass/Vol] 6.40 ng/mL 3.1-55.4 [facility] Serum or plasma immunoglobul in kappa light chains measurement (mass/volume)Ordered By: Dr. Doss on 12-08-2022 Immunoglobulin light chains.kappa [Mass/Vol] 72.1 mg/L 3.3-19.4 [facility] Serum or plasma urea nitroge n measurement (mass/volume)Ordered By: Dr. Doss on 12-08-2022 Urea nitrogen [Mass/Vol] 37 mg/dL 7-18 [facility] Thin prep Papanicolaou smear with manual screeningOrdered By: Dr. Doss on 12-08-2022 Thin prep Papanicolaou smear with manual screening 21 U/L 15-37 [facility] Thin prep Papanicolaou smear with manual screening 4 5-15 [facility] LABORATORYOrdered By: Rhett Figueroa on 10-30-2022 Anisocytosis Ql (Bld) 1+ (10/30/22 8:10 AM) Invalid Interpretation Code AO Hematology S Basophil %, Manual 0.0 1 Invalid Interpretation Code 0.0 - 2.5 % AO Hematology S Basophil, Absolute 0.0 103/mcL Invalid Interpretation Code 0.0 - 0.2 10^3/mcL AO Hematology S Eosinophil %, Manual 5.0 1 Invalid Interpretation Code 0.0 - 7.0 % AO Hematology S Eosinophil, Absolute 0.5 103/mcL Invalid Interpretation Code 0.0 - 0.4 10^3/mcL AO Hematology S Erythrocyte distribution width (RBC) [Ratio] 15.1 % Invalid Interpretation Code 11.5 - 14.5 % AO Workflow SS Hematocrit (Bld) [Volume fraction] 36.3 % Invalid Interpretation Code 42.0 - 52.0 % AO Workflow SS Hemoglobin (Bld) [Mass/Vol] 12.1 G/dL Invalid Interpretation Code 14.0 - 18.0 G/dL AO Workflow SS Lymphocyte %, Manual 34.0 1 Invalid Interpretation Code 10.0 - 50.0 % AO Hematology S Lymphocyte, Absolute 3.1 103/mcL Invalid Interpretation Code 0.8 - 3.9 10^3/mcL AO Hematology S MCH (RBC) [Entitic mass] 29.0 pg Invalid Interpretation Code 27.0 - 31.2 pg AO Workflow SS MCHC 33.4 G/dL Invalid Interpretation Code 31.8 - 35.4 G/dL AO Workflow SS MCV (RBC) [Entitic vol] 86.7 fL Invalid Interpretation Code 80.0 - 94.0 fL AO Workflow SS Microcytes Ql (Bld) 1+ (10/30/22 8:10 AM) Invalid Interpretation Code AO Hematology S Monocyte %, Manual 7.0 1 Invalid Interpretation Code 1.7 - 13.0 % AO Hematology S Monocyte, Absolute 0.6 103/mcL Invalid Interpretation Code 0.2 - 1.0 10^3/mcL AO Hematology S Neutrophil %, Manual 55.0 1 Invalid Interpretation Code 37.0 - 80.0 % AO Hematology S Neutrophil, Absolute 5.1 103/mcL Invalid Interpretation Code 2.9 - 6.2 10^3/mcL AO Hematology S Ovalocytes LM Ql (Bld) 1+ (10/30/22 8:10 AM) Invalid Interpretation Code AO Hematology S Platelet Estimate Normal (10/30/22 8:10 AM) Invalid Interpretation Code AO Hematology S Platelets (Bld) [#/Vol] 170 103/mcL Invalid Interpretation Code 130 - 400 10^3/mcL AO Workflow SS Poikilocytosis LM Ql (Bld) 1+ (10/30/22 8:10 AM) Invalid Interpretation Code AO Hematology S RBC (Bld) [#/Vol] 4.18 106/mcL Invalid Interpretation Code 4.04 - 6.13 10^6/mcL AO Workflow SS WBC (Bld) [#/Vol] 9.2 103/mcL Invalid Interpretation Code 4.6 - 10.8 10^3/mcL AO Workflow SS LABORATORYOrdered By: Cielo Lauren on 10-30-2022 Basophils/100 WBC (Bld) 0.9 % Invalid Interpretation Code 0.0 - 2.5 % AO Workflow SS Eosinophils/100 WBC (Bld) 3.1 % Invalid Interpretation Code 0.0 - 7.0 % AO Workflow SS Lymphocytes/100 WBC (Bld) 31.1 % Invalid Interpretation Code 10.0 - 50.0 % AO Workflow SS Monocytes/100 WBC (Bld) 5.1 % Invalid Interpretation Code 1.7 - 13.0 % AO Workflow SS Neutrophils/100 WBC (Bld) 59.8 % Invalid Interpretation Code 37.0 - 80.0 % AO Workflow SS Platelet mean volume (Bld) [Entitic vol] 7.9 fL Invalid Interpretation Code 7.4 - 10.4 fL AO Workflow SS LABORATORYOrdered By: SYSTEM SYSTEM on 10-30-2022 Calcium [Mass/Vol] 10.0 mg/dL Invalid Interpretation Code 8.4 - 10.2 mg/dL AO ADM SS Chloride [Moles/Vol] 105 mmol/L Invalid Interpretation Code 98 - 107 mmol/L AO ADM SS CO2 [Moles/Vol] 27 mmol/L Invalid Interpretation Code 23 - 31 mmol/L AO ADM SS Creatinine [Mass/Vol] 2.85 mg/dL Invalid Interpretation Code 0.70 - 1.30 mg/dL AO ADM SS Electrolyte Balance 11.0 mEq/L Invalid Interpretation Code 4.0 - 15.0 mEq/L AO ADM SS GFR 26 ml/min/1.73sqm Invalid Interpretation Code AO Chemistry S GFR Non- 21 ml/min/1.73sqm Inval id Interpretation Code AO Chemistry S Glucose [Mass/Vol] 112 mg/dL Invalid Interpretation Code 83 - 110 mg/dL AO ADM SS Parathyrin.intact [Mass/Vol] 52.2 pg/mL Invalid Interpretation Code 18.5 - 88.0 pg/mL AH ADM SS Potassium [Moles/Vol] 5.0 mmol/L Invalid Interpretation Code 3.5 - 5.1 mmol/L AO ADM SS Sodium [Moles/Vol] 143 mmol/L Invalid Interpretation Code 136 - 145 mmol/L AO ADM SS Urea nitrogen [Mass/Vol] 31 mg/dL Invalid Interpretation Code 7 - 18 mg/dL AO ADM SS Urea nitrogen/Creatinine [Mass ratio] 11 ratio Invalid Interpretation Code 7 - 27 ratio AO ADM SS Uric Acid Lvl 7.8 mg/dL Invalid Interpretation Code 3.5 - 7.2 mg/dL AO ADM SS Vit. D 25-Hydroxy 39.7 ng/mL Invalid Interpretation Code AO ADM SS LABORATORYOrdered By: Gewara SYSTEM on 10-19-2022 Ferritin [Mass/Vol] 37.0 ng/mL Invalid Interpretation Code 26.0 - 388.0 ng/mL AO ADM SS Iron [Mass/Vol] 111 ug/dL Invalid Interpretation Code 65 - 175 mcg/dL AO ADM SS Iron binding capacity [Mass/Vol] 344 mcg/dL Invalid Interpretation Code 250 - 450 mcg/dL AO ADM SS Iron Sat 32 1 Invalid Interpretation Code AO ADM SS LABORATORYOrdered By: Andrei Fernández on 08-25-2022 Albumin BCP dye [Mass/Vol] 4.0 G/dL Invalid Interpretation Code 3.4 - 4.8 G/dL AO ADM SS Albumin/Globulin [Mass ratio] 1.3 {ratio} Invalid Interpretation Code 1.1 - 2.5 ratio AO ADM SS ALP [Catalytic activity/Vol] 61 U/L Invalid Interpretation Code 40 - 135 U/L AO ADM SS ALT With P-5'-P [Catalytic activity/Vol] 28 U/L Invalid Interpretation Code 16 - 63 U/L AO ADM SS AST With P-5'-P [Catalytic activity/Vol] 28 U/L Invalid Interpretation Code 10 - 40 U/L AO ADM SS Bilirubin [Mass/Vol] 0.5 mg/dL Invalid Interpretation Code 0.2 - 1.0 mg/dL AO ADM SS Bilirubin.direct [Mass/Vol] 0.2 mg/dL Invalid Interpretation Code 0.0 - 0.2 mg/dL AO ADM SS Cholesterol [Mass/Vol] 101 mg/dL Invalid Interpretation Code 0 - 200 mg/dL AO ADM SS Cholesterol in HDL [Mass/Vol] 45 mg/dL Invalid Interpretation Code 40 - 60 mg/dL AO ADM SS Cholesterol in LDL [Mass/Vol] 43 mg/dL Invalid Interpretation Code 0 - 130 mg/dL AO ADM SS Globulin 3.0 G/dL Invalid Interpretation Code AO ADM SS Protein [Mass/Vol] 7.0 G/dL Invalid Interpretation Code 6.4 - 8.2 G/dL AO ADM SS Triglyceride [Mass/Vol] 65 mg/dL Invalid Interpretation Code 0 - 150 mg/dL AO ADM SS LABORATORYOrdered By: Gewara SYSTEM on 08-25-2022 Bili Indirect 0.3 mg/dL Invalid Interpretation Code AO Chemistry S LABORATORYOrdered By: Leidy Gomez on 04-29-2022 Creatinine (U) [Mass/Vol] 125.2 mg/dL Invalid Interpretation Code 39.0 - 259.0 mg/dL AO ADM SS Protein (U) [Mass/Vol] 37 mg/dL Invalid Interpretation Code 0 - 11 mg/dL AO ADM SS U Ratio Prot/Creat 0.3 ratio Invalid Interpretation Code AO Chemistry S Calcium [Mass/Vol] 9.8 mg/dL Invalid Interpretation Code 8.4 - 10.2 mg/dL AO ADM SS Chloride [Moles/Vol] 99 mmol/L Invalid Interpretation Code 98 - 107 mmol/L AO ADM SS CO2 [Moles/Vol] 33 mmol/L Invalid Interpretation Code 23 - 31 mmol/L AO ADM SS Creatinine [Mass/Vol] 2.62 mg/dL Invalid Interpretation Code 0.70 - 1.30 mg/dL AO ADM SS Electrolyte Balance 9.0 mEq/L Invalid Interpretation Code 4.0 - 15.0 mEq/L AO ADM SS Glucose [Mass/Vol] 138 mg/dL Invalid Interpretation Code 83 - 110 mg/dL AO ADM SS Potassium [Moles/Vol] 3.7 mmol/L Invalid Interpretation Code 3.5 - 5.1 mmol/L AO ADM SS Sodium [Moles/Vol] 141 mmol/L Invalid Interpretation Code 136 - 145 mmol/L AO ADM SS Urea nitrogen [Mass/Vol] 29 mg/dL Invalid Interpretation Code 7 - 18 mg/dL AO ADM SS Urea nitrogen/Creatinine [Mass ratio] 11 ratio Invalid Interpretation Code 7 - 27 ratio AO ADM SS Uric Acid Lvl 9.4 mg/dL Invalid Interpretation Code 3.5 - 7.2 mg/dL AO ADM SS LABORATORYOrdered By: Rafi montenegro on 04-29-2022 25-hydroxyvitamin D3 [Mass/Vol] 29.7 ng/mL Invalid Interpretation Code Chemistry S LABORATORYOrdered By: Jennifer Cazares on 04-29-2022 Basophil, Absolute 0.1 103/mcL Invalid Interpretation Code 0.0 - 0.2 10^3/mcL AO Workflow SS Basophils/100 WBC (Bld) 1.0 % Invalid Interpretation Code 0.0 - 2.5 % AO Workflow SS Eosinophil, Absolute 0.2 103/mcL Invalid Interpretation Code 0.0 - 0.4 10^3/mcL AO Workflow SS Eosinophils/100 WBC (Bld) 2.5 % Invalid Interpretation Code 0.0 - 7.0 % AO Workflow SS Erythrocyte distribution width (RBC) [Ratio] 14.5 % Invalid Interpretation Code 11.5 - 14.5 % AO Workflow SS Hematocrit (Bld) [Volume fraction] 36.5 % Invalid Interpretation Code 42.0 - 52.0 % AO Workflow SS Hemoglobin (Bld) [Mass/Vol] 12.4 G/dL Invalid Interpretation Code 14.0 - 18.0 G/dL AO Workflow SS Lymphocyte, Absolute 2.1 103/mcL Invalid Interpretation Code 0.8 - 3.9 10^3/mcL AO Workflow SS Lymphocytes/100 WBC (Bld) 23.8 % Invalid Interpretation Code 10.0 - 50.0 % AO Workflow SS MCH (RBC) [Entitic mass] 28.4 pg Invalid Interpretation Code 27.0 - 31.2 pg AO Workflow SS MCHC 33.8 G/dL Invalid Interpretation Code 31.8 - 35.4 G/dL AO Workflow SS MCV (RBC) [Entitic vol] 83.8 fL Invalid Interpretation Code 80.0 - 94.0 fL AO Workflow SS Monocyte, Absolute 0.4 103/mcL Invalid Interpretation Code 0.2 - 1.0 10^3/mcL AO Workflow SS Monocytes/100 WBC (Bld) 5.1 % Invalid Interpretation Code 1.7 - 13.0 % AO Workflow SS Neutrophil, Absolute 5.8 103/mcL Invalid Interpretation Code 2.9 - 6.2 10^3/mcL AO Workflow SS Neutrophils/100 WBC (Bld) 67.6 % Invalid Interpretation Code 37.0 - 80.0 % AO Workflow SS Platelet mean volume (Bld) [Entitic vol] 8.4 fL Invalid Interpretation Code 7.4 - 10.4 fL AO Workflow SS Platelets (Bld) [#/Vol] 209 103/mcL Invalid Interpretation Code 130 - 400 10^3/mcL AO Workflow SS RBC (Bld) [#/Vol] 4.36 106/mcL Invalid Interpretation Code 4.04 - 6.13 10^6/mcL AO Workflow SS WBC 8.6 103/mcL Invalid Interpretation Code 4.6 - 10.8 10^3/mcL AO Workflow SS LABORATORYOrdered By: SYSTEM SYSTEM on 04-29-2022 GFR 29 ml/min/1.73sqm Invalid Interpretation Code AO Chemistry S GFR Non- 24 ml/min/1.73sqm Inval id Interpretation Code AO Chemistry S Monocyte distribution width Auto (Bld) [Entitic vol] Not Performed 1 *NA* (04/29/22 8:31 AM) Invalid Interpretation Code 0.00 - 20.00 AO Hematology S Comment on above: Result Comment: MDW testing performed only on adult ER patients between the ages of 18-89 years. Parathyrin.intact [Mass/Vol] 123.7 pg/mL Invalid Interpretation Code 18.5 - 88.0 pg/mL AH ADM SS LABORATORYOrdered By: Leidy Gomez on 01-19-2022 Albumin Level 4.1 G/dL Invalid Interpretation Code 3.4 - 4.8 G/dL AO Chemistry S Basophil, Absolute 0.10 103/mcL Invalid Interpretation Code 0.00 - 0.19 10^3/mcL AO Auto Heme SS Basophils/100 WBC (Bld) 0.6 % Invalid Interpretation Code 0.0 - 2.5 % AO Auto Heme SS Calcium [Mass/Vol] 8.9 mg/dL Invalid Interpretation Code 8.4 - 10.2 mg/dL AO ADM SS Chloride [Moles/Vol] 105 mmol/L Invalid Interpretation Code 98 - 107 mmol/L AO ADM SS CO2 [Moles/Vol] 26 mmol/L Invalid Interpretation Code 23 - 31 mmol/L AO ADM SS Creatinine (U) [Mass/Vol] 94.9 mg/dL Invalid Interpretation Code 39.0 - 259.0 mg/dL AO ADM SS Creatinine [Mass/Vol] 2.40 mg/dL Invalid Interpretation Code 0.70 - 1.30 mg/dL AO ADM SS Electrolyte Balance 8.0 mEq/L Invalid Interpretation Code 4.0 - 15.0 mEq/L AO ADM SS Eosinophil, Absolute 0.30 103/mcL Invalid Interpretation Code 0.00 - 0.40 10^3/mcL AO Auto Heme SS Eosinophils/100 WBC (Bld) 2.9 % Invalid Interpretation Code 0.0 - 7.0 % AO Auto Heme SS Erythrocyte distribution width (RBC) [Ratio] 15.0 % Invalid Interpretation Code 11.5 - 14.5 % AO Auto Heme SS Glucose [Mass/Vol] 177 mg/dL Invalid Interpretation Code 83 - 110 mg/dL AO ADM SS Hematocrit (Bld) [Volume fraction] 33.3 % Invalid Interpretation Code 42.0 - 52.0 % AO Auto Heme SS Hemoglobin (Bld) [Mass/Vol] 11.3 G/dL Invalid Interpretation Code 14.0 - 18.0 G/dL AO Auto Heme SS Lymphocyte, Absolute 1.90 103/mcL Invalid Interpretation Code 0.77 - 3.85 10^3/mcL AO Auto Heme SS Lymphocytes/100 WBC (Bld) 21.2 % Invalid Interpretation Code 10.0 - 50.0 % AO Auto Heme SS MCH (RBC) [Entitic mass] 30.8 pg Invalid Interpretation Code 27.0 - 31.2 pg AO Auto Heme SS MCHC (RBC) [Mass/Vol] 33.9 G/dL Invalid Interpretation Code 31.8 - 35.4 G/dL AO Auto Heme SS MCV (RBC) [Entitic vol] 90.9 fL Invalid Interpretation Code 80.0 - 94.0 fL AO Auto Heme SS Monocyte, Absolute 0.40 103/mcL Invalid Interpretation Code 0.15 - 1.00 10^3/mcL AO Auto Heme SS Monocytes/100 WBC (Bld) 4.0 % Invalid Interpretation Code 1.7 - 13.0 % AO Auto Heme SS Neutrophil, Absolute 6.30 103/mcL Invalid Interpretation Code 2.85 - 6.16 10^3/mcL AO Auto Heme SS Neutrophils/100 WBC (Bld) 71.3 % Invalid Interpretation Code 37.0 - 80.0 % AO Auto Heme SS Phosphate [Mass/Vol] 4.0 mg/dL Invalid Interpretation Code 2.3 - 4.1 mg/dL AO Chemistry S Platelet mean volume (Bld) [Entitic vol] 8.7 fL Invalid Interpretation Code 7.4 - 10.4 fL AO Auto Heme SS Platelets (Bld) [#/Vol] 163 103/mcL Invalid Interpretation Code 130 - 400 10^3/mcL AO Auto Heme SS Potassium [Moles/Vol] 6.1 mmol/L Invalid Interpretation Code 3.5 - 5.1 mmol/L AO ADM SS Protein (U) [Mass/Vol] 26 mg/dL Invalid Interpretation Code 0 - 11 mg/dL AO ADM SS RBC (Bld) [#/Vol] 3.66 106/mcL Invalid Interpretation Code 4.04 - 6.13 10^6/mcL AO Auto Heme SS Sodium [Moles/Vol] 139 mmol/L Invalid Interpretation Code 136 - 145 mmol/L AO ADM SS Urea nitrogen [Mass/Vol] 38 mg/dL Invalid Interpretation Code 7 - 18 mg/dL AO ADM SS Urea nitrogen/Creatinine [Mass ratio] 16 ratio Invalid Interpretation Code 7 - 27 ratio AO ADM SS Uric Acid Lvl 6.8 mg/dL Invalid Interpretation Code 3.5 - 7.2 mg/dL AO ADM SS Vit. D 25-Hydroxy 42.9 ng/mL Invalid Interpretation Code AO ADM SS WBC (Bld) [#/Vol] 8.90 103/mcL Invalid Interpretation Code 4.60 - 10.80 10^3/mcL AO Auto Heme SS Albumin BCP dye [Mass/Vol] 4.1 G/dL Invalid Interpretation Code 3.4 - 4.8 G/dL AO ADM SS Albumin/Globulin [Mass ratio] 1.4 {ratio} Invalid Interpretation Code 1.1 - 2.5 ratio AO ADM SS ALP [Catalytic activity/Vol] 90 U/L Invalid Interpretation Code 40 - 135 U/L AO ADM SS ALT With P-5'-P [Catalytic activity/Vol] 14 U/L Invalid Interpretation Code 16 - 63 U/L AO ADM SS AST With P-5'-P [Catalytic activity/Vol] 20 U/L Invalid Interpretation Code 10 - 40 U/L AO ADM SS Bili Indirect 0.4 mg/dL Invalid Interpretation Code AO Chemistry S Bilirubin [Mass/Vol] 0.6 mg/dL Invalid Interpretation Code 0.2 - 1.0 mg/dL AO ADM SS Bilirubin.direct [Mass/Vol] 0.2 mg/dL Invalid Interpretation Code 0.0 - 0.2 mg/dL AO ADM SS Cholesterol [Mass/Vol] 101 mg/dL Invalid Interpretation Code 0 - 200 mg/dL AO ADM SS Cholesterol in HDL [Mass/Vol] 40 mg/dL Invalid Interpretation Code 40 - 60 mg/dL AO ADM SS Cholesterol in LDL [Mass/Vol] 42 mg/dL Invalid Interpretation Code 0 - 130 mg/dL AO ADM SS Globulin 3.0 G/dL Invalid Interpretation Code AO ADM SS Protein [Mass/Vol] 7.1 G/dL Invalid Interpretation Code 6.4 - 8.2 G/dL AO ADM SS Triglyceride [Mass/Vol] 93 mg/dL Invalid Interpretation Code 0 - 150 mg/dL AO ADM SS LABORATORYOrdered By: SYSTEM SYSTEM on 01-19-2022 GFR 32 ml/min/1.73sqm Invalid Interpretation Code AO Chemistry S GFR Non- 26 ml/min/1.73sqm Inval id Interpretation Code AO Chemistry S Parathyrin.intact [Mass/Vol] 291.5 pg/mL Invalid Interpretation Code 18.5 - 88.0 pg/mL AH ADM SS LABORATORYOrdered By: Briana Mcintosh on 11-18-2021 Calcium [Mass/Vol] 8.9 mg/dL Invalid Interpretation Code 8.4 - 10.2 mg/dL AO ADM SS Chloride [Moles/Vol] 104 mmol/L Invalid Interpretation Code 98 - 107 mmol/L AO ADM SS CO2 [Moles/Vol] 26 mmol/L Invalid Interpretation Code 23 - 31 mmol/L AO ADM SS Creatinine [Mass/Vol] 2.45 mg/dL Invalid Interpretation Code 0.70 - 1.30 mg/dL AO ADM SS Electrolyte Balance 12.0 mEq/L Invalid Interpretation Code 4.0 - 15.0 mEq/L AO ADM SS Glucose [Mass/Vol] 199 mg/dL Invalid Interpretation Code 83 - 110 mg/dL AO ADM SS Potassium [Moles/Vol] 5.7 mmol/L Invalid Interpretation Code 3.5 - 5.1 mmol/L AO ADM SS Sodium [Moles/Vol] 142 mmol/L Invalid Interpretation Code 136 - 145 mmol/L AO ADM SS Urea nitrogen [Mass/Vol] 30 mg/dL Invalid Interpretation Code 7 - 18 mg/dL AO ADM SS Urea nitrogen/Creatinine [Mass ratio] 12 ratio Invalid Interpretation Code 7 - 27 ratio AO ADM SS LABORATORYOrdered By: SYSTEM SYSTEM on 11-18-2021 GFR 31 ml/min/1.73sqm Invalid Interpretation Code AO Chemistry S GFR Non- 26 ml/min/1.73sqm Inval id Interpretation Code AO Chemistry S Vital Signs Date Time Vital Sign Value Performing Clinician Facility 07-12-2025 12:17-0400 Diastolic Blood Pressure Non-Invasive 59 mm[Hg] FLORENTIN MORAN DO [facility] 07-12-2025 12:17-0400 Heart rate 68 /min FLORENTIN MORAN DO [facility] 07-12-2025 12:17-0400 Respiratory rate 20 /min FLORENTIN MORAN DO [facility] 07-12-2025 12:17-0400 Systolic Blood Pressure Non-Invasive 105 mm[Hg] FLORENTIN MORAN DO [facility] 07-12-2025 09:39-0400 Body height 175.3 cm FLORENTIN MORAN DO [facility] 07-12-2025 09:39-0400 Body temperature 96.98 [degF] FLORENTIN MORAN DO [facility] 07-12-2025 09:39-0400 Body weight 90.9 kg FLORENTIN MORAN DO [facility] 07-12-2025 09:39-0400 Diastolic Blood Pressure Non-Invasive 54 mm[Hg] FLORENTIN MORAN DO [facility] 07-12-2025 09:39-0400 Heart rate 79 /min FLORENTIN MORAN DO [facility] 07-12-2025 09:39-0400 Respiratory rate 16 /min FLORENTIN MORAN DO [facility] 07-12-2025 09:39-0400 Systolic Blood Pressure Non-Invasive 93 mm[Hg] FLORENTIN MORAN DO [facility] 06-11-2025 14:35-0400 Diastolic blood pressure 56 mm[Hg] Dr. Jluis Nichole DO Work Phone: [facility] 06-11-2025 14:35-0400 Systolic blood pressure 108 mm[Hg] Dr. Jluis Nichole DO Work Phone: [facility] 06-11-2025 13:56-0400 Body temperature 98 [degF] Dr. Jluis Nichole DO Work Phone: [facility] 06-11-2025 13:56-0400 Heart rate 68 /min Dr. Jluis Nichole DO Work Phone: [facility] 06-11-2025 13:56-0400 Respiratory rate 15 /min Dr. lJuis Nichole DO Work Phone: [facility] 06-11-2025 13:56-0400 SaO2% (BldA) [Mass fraction] 97 % Dr. Jluis Nichole DO Work Phone: [facility] 03-28-2025 09:39-0400 Body temperature 98.8 [degF] Dr. Jluis Nichole DO Work Phone: [facility] 03-28-2025 09:39-0400 Diastolic blood pressure 62 mm[Hg] Dr. Jluis Nichole DO Work Phone: [facility] 03-28-2025 09:39-0400 Heart rate 61 /min Dr. Jluis Nichole DO Work Phone: [facility] 03-28-2025 09:39-0400 Respiratory rate 15 /min Dr. Jluis Nichole DO Work Phone: [facility] 03-28-2025 09:39-0400 SaO2% (BldA) [Mass fraction] 100 % Dr. Jluis Nichole DO Work Phone: [facility] 03-28-2025 09:39-0400 Systolic blood pressure 104 mm[Hg] Dr. Jluis Nichole DO Work Phone: [facility] 02-16-2025 15:34-0400 Body height 175.[address] Jluis Nichole DO Work Phone: [facility] 02-16-2025 15:34-0400 Body mass index (BMI) [Ratio] 30.4 kg/m2 Dr. Jluis Nichole DO Work Phone: [facility] 02-16-2025 15:34-0400 Body weight 93.[address] Jluis Nichole DO Work Phone: [facility] 02-16-2025 15:34-0400 Diastolic blood pressure 72 mm[Hg] Dr. Jluis Nichole DO Work Phone: [facility] 02-16-2025 15:34-0400 Heart rate 71 /min Dr. Jluis Nichole DO Work Phone: [facility] 02-16-2025 15:34-0400 Respiratory rate 18 /min Dr. Jluis Nichole DO Work Phone: [facility] 02-16-2025 15:34-0400 Systolic blood pressure 152 mm[Hg] Dr. Jluis Nichole DO Work Phone: [facility] 11-29-2024 09:47-0400 Body temperature 97.8 [degF] Dr. Jluis Nichole DO Work Phone: [facility] 11-29-2024 09:47-0400 Diastolic blood pressure 68 mm[Hg] Dr. Jluis Nichole DO Work Phone: [facility] 11-29-2024 09:47-0400 Heart rate 64 /min Dr. Jluis Nichole DO Work Phone: [facility] 11-29-2024 09:47-0400 Respiratory rate 16 /min Dr. Jluis Nichole DO Work Phone: [facility] 11-29-2024 09:47-0400 SaO2% (BldA) [Mass fraction] 100 % Dr. Jluis Nichole DO Work Phone: [facility] 11-29-2024 09:47-0400 Systolic blood pressure 110 mm[Hg] Dr. Jluis Nichole DO Work Phone: [facility] 11-16-2024 10:19-0500 Body temperature 97.9 [degF] Dr. Jluis Nichole DO Work Phone: [facility] 11-16-2024 10:19-0500 Body weight 87.[address] Jluis Nichole DO Work Phone: [facility] 11-16-2024 10:19-0500 Diastolic blood pressure 76 mm[Hg] Dr. Jluis Nichole DO Work Phone: [facility] 11-16-2024 10:19-0500 Heart rate 68 /min Dr. Jluis Nichole DO Work Phone: [facility] 11-16-2024 10:19-0500 SaO2% (BldA) [Mass fraction] 97 % Dr. Jluis Nichole DO Work Phone: [facility] 11-16-2024 10:19-0500 Systolic blood pressure 120 mm[Hg] Dr. Jluis Nichole DO Work Phone: [facility] 09-12-2024 10:19-0500 Body height 172.7 cm Toney Gutierrez MD Work Phone: [facility] 09-12-2024 10:19-0500 Body mass index (BMI) [Ratio] 29.95 kg/m2 Toney Gutierrez MD Work Phone: [facility] 09-12-2024 10:19-0500 Body temperature 97.11 [degF] Toney Gutierrez MD Work Phone: [facility] 09-12-2024 10:19-0500 Body weight 89.36 kg Toney Gutierrez MD Work Phone: [facility] 09-12-2024 10:19-0500 Diastolic blood pressure 59 mm[Hg] Toney Gutierrez MD Work Phone: [facility] 09-12-2024 10:19-0500 Heart rate 58 /min Toney Gutierrez MD Work Phone: [facility] 09-12-2024 10:19-0500 SaO2% (BldA) [Mass fraction] 96 % Toney Gutierrez MD Work Phone: [facility] 09-12-2024 10:19-0500 Systolic blood pressure 128 mm[Hg] Toney Gutierrez MD Work Phone: [facility] 06-14-2024 11:21-0400 Blood Pressure Location FLORENTIN DEAN DO [facility] 09-25-2024 11:21-0400 Blood Pressure Method FLORENTIN MORAN DO [facility] 06-14-2024 11:21-0400 Body temperature 98.24 [degF] FLORENTIN MORAN DO [facility] 06-14-2024 11:21-0400 Diastolic Blood Pressure Non-Invasive 69 mm[Hg] FLORENTIN MORAN DO [facility] 06-14-2024 11:21-0400 Heart rate 60 /min FLORENTIN MORAN DO [facility] 06-14-2024 11:21-0400 Respiratory rate 18 /min FLORENTIN MORAN DO [facility] 06-14-2024 11:21-0400 Systolic Blood Pressure Non-Invasive 127 mm[Hg] FLORENTIN MORAN DO [facility] 04-01-2023 10:44-0400 Body height 175.[address] Layne Doherty Work Phone: [facility] 04-01-2023 10:44-0400 Body mass index (BMI) [Ratio] 29.3 kg/m2 Dr. Layne Doherty Work Phone: [facility] 04-01-2023 10:44-0400 Body temperature 98.9 [degF] Dr. Layne Doherty Work Phone: [facility] 04-01-2023 10:44-0400 Body weight 90.[address] Layne Doherty Work Phone: [facility] 04-01-2023 10:44-0400 Diastolic blood pressure 50 mm[Hg] Dr. Layne Doherty Work Phone: [facility] 04-01-2023 10:44-0400 Heart rate 76 /min Dr. Layne Doherty Work Phone: [facility] 04-01-2023 10:44-0400 Respiratory rate 15 /min Dr. Layne Doherty Work Phone: [facility] 04-01-2023 10:44-0400 SaO2% (BldA) [Mass fraction] 99 % Dr. Layne Doherty Work Phone: [facility] 04-01-2023 10:44-0400 Systolic blood pressure 114 mm[Hg] Dr. Layne Doherty Work Phone: [facility] 03-02-2023 08:32-0400 Body mass index (BMI) [Ratio] 29.7 kg/m2 Dr. Layne Doherty Work Phone: [facility] 03-02-2023 08:32-0400 Body weight 91.[address] Layne Doherty Work Phone: [facility] 03-02-2023 08:32-0400 Diastolic blood pressure 59 mm[Hg] Dr. Layne Doherty Work Phone: [facility] 03-02-2023 08:32-0400 Heart rate 64 /min Dr. Layne Doherty Work Phone: [facility] 03-02-2023 08:32-0400 Respiratory rate 16 /min Dr. Layne Doherty Work Phone: [facility] 03-02-2023 08:32-0400 Systolic blood pressure 111 mm[Hg] Dr. Layne Doherty Work Phone: [facility] 11-26-2022 13:05-0500 Diastolic blood pressure 68 mm[Hg] Dr. Layne Doherty Work Phone: [facility] 11-26-2022 13:05-0500 Systolic blood pressure 116 mm[Hg] Dr. Layne Doherty Work Phone: [facility] 11-26-2022 10:02-0500 Body height 175.[address] Layne Doherty Work Phone: [facility] 11-26-2022 10:02-0500 Body mass index (BMI) [Ratio] 29.2 kg/m2 Dr. Layne Doherty Work Phone: [facility] 11-26-2022 10:02-0500 Body temperature 98.2 [degF] Dr. Layne Doherty Work Phone: [facility] 11-26-2022 10:02-0500 Body weight 90.[address] Layne Doherty Work Phone: [facility] 11-26-2022 10:02-0500 Heart rate 67 /min Dr. Layne Doherty Work Phone: [facility] 11-26-2022 10:02-0500 Respiratory rate 17 /min Dr. Layne Doherty Work Phone: [facility] 11-26-2022 10:02-0500 SaO2% (BldA) [Mass fraction] 99 % Dr. Layne Doherty Work Phone: [facility] 09-01-2022 08:20-0500 Body mass index (BMI) [Ratio] 26.6 kg/m2 Dr. Layne Doherty Work Phone: [facility] 09-01-2022 08:20-0500 Body weight 81.[address] Layne Doherty Work Phone: [facility] 09-01-2022 08:20-0500 Diastolic blood pressure 77 mm[Hg] Dr. Layne Doherty Work Phone: [facility] 09-01-2022 08:20-0500 Heart rate 64 /min Dr. Layne Doherty Work Phone: [facility] 09-01-2022 08:20-0500 Respiratory rate 20 /min Dr. Layne Doherty Work Phone: [facility] 09-01-2022 08:20-0500 SaO2% (BldA) [Mass fraction] 98 % Dr. Layne Doherty Work Phone: [facility] 09-01-2022 08:20-0500 Systolic blood pressure 142 mm[Hg] Dr. Layne Doherty Work Phone: [facility] 03-09-2022 08:36-0400 Body height 175.[address] Layne Doherty Work Phone: [facility] Work Phone: 03-09-2022 08:36-0400 Body mass index (BMI) [Ratio] 28.5 kg/m2 Dr. Layne Doherty Work Phone: [facility] Work Phone: 03-09-2022 08:36-0400 Body weight 87.[address] Layne Doherty Work Phone: [facility] Work Phone: 03-09-2022 08:36-0400 Diastolic blood pressure 78 mm[Hg] Dr. Layne Doherty Work Phone: [facility] Work Phone: 03-09-2022 08:36-0400 Heart rate 64 /min Dr. Layne Doherty Work Phone: [facility] Work Phone: 03-09-2022 08:36-0400 Respiratory rate 18 /min Dr. Layne Doherty Work Phone: [facility] Work Phone: 03-09-2022 08:36-0400 Systolic blood pressure 144 mm[Hg] Dr. Layne Doherty Work Phone: [facility] Work Phone: Encounters Encounter Date Encounter Type Care Provider Facility Start: 07-24-2025 ambulatory Jluis MILAN Facility :[facility] Start: 07-16-2025 End: 07-16-2025 ambulatory Jluis MILAN Facility:[facility] Start: 07-12-2025 End: 07-12-2025 Emergency department patient visit FLORENTIN DEAN LEE [facility] Start: 07-11-2025 End: 07-11-2025 ambulatory Jluis MILAN Facility:[facility] Start: 07-05-2025 End: 07-05-[address] JLUIS NICHOLE DO Facility:[facility] Start: 07-05-2025 End: 07-05-[address]LUIS NICHOLE DO [facility] Start: 07-04-2025 End: 07-08-[address] JLUIS NICHOLE DO [facility] Start: 07-04-2025 End: 07-08-[address] JLUIS NICHOLE DO Facility:[facility] Start: 07-04-2025 End: 07-04-[address]LUIS N[address]HOLE DO [facility] Start: 06-11-2025 End: 06-11-[address] Braxton Doss MD -[facility] Work Phone: Start: 06-11-2025 End: 06-11-[address] Jluis Nichole DO Work Phone: -[facility] Start: 04-26-2025 End: 04-26-[address] Jluis Nichole DO Work Phone: -Ultrasound [facility] Start: 04-26-2025 End: 04-26-[address] Porsha Bass DO -Ultrasound [facility] Work Phone: Start: 04-26-2025 End: 04-26-2025 ambulatory Porsha Bass Facility:[facility] Start: 04-19-2025 End: 04-19-[address] Jluis Nichole DO Work Phone: -Laboratory Phy Office 3rd Flr Start: 04-19-2025 End: 04-19-[address] Porsha Bass DO -Laboratory Phy Office 3rd Flr Start: 04-19-2025 End: 04-19-2025 ambulatory Porsha Bass Facility:[facility] Start: 04-10-2025 Non-patient / Non-visit Dr. Cecilio huitron MD -[facility] Start: 04-10-2025 End: 04-10-[address] Jluis Nichole DO Work Phone: -Cardiovascular Services Start: 04-10-2025 End: 04-10-2025 Patient encounter procedure Sharon RAGLAND -Cardiovascular Services Work Phone: Start: 04-10-2025 End: 04-10-2025 ambulatory Porsha Lee Facility:[facility] Start: 03-28-2025 Non-patient / Non-visit Dr. Desire ROMAN -[facility] Start: 03-28-2025 End: 03-28-[address] Jluis Nichole DO Work Phone: -Cardiovascular Services Start: 03-28-2025 End: 03-28-2025 Patient encounter procedure Bailey CONTE -Cardiovascular Services Work Phone: Start: 03-28-2025 End: 03-28-2025 Patient encounter procedure Shaorn RAGLAND -[facility] Work Phone: Start: 03-28-2025 End: 03-28-[address] Jluis Nichole DO Work Phone: -[facility] Start: 03-28-2025 End: 03-28-2025 ambulatory Jluis Nichole Facility:[facility] Start: 02-23-2025 End: 04-17-[address] JLUIS NICHOLE DO Facility:[facility] Start: 02-22-2025 End: 02-22-2025 Emergency department patient visit DAVID LAST MD [facility] Start: 02-21-2025 End: 02-25-[address] JLUIS NICHOLE DO Facility:[facility] Start: 02-21-2025 End: 02-25-[address] JLUIS NICHOLE DO [facility] Start: 02-16-2025 End: 02-16-2025 Patient encounter procedure Bailey CONTE -[facility] Work Phone: Start: 02-16-2025 End: 02-16-[address] Jluis Nichole DO Work Phone: [facility] Work Phone: Start: 02-08-2025 End: 02-08-[address] Jluis Nichole DO Work Phone: [facility] Work Phone: Start: 02-08-2025 End: 02-08-2025 Patient encounter procedure Maryuri Begum AROMATHERAPIST-C -Laboratory Work Phone: Start: 02-08-2025 End: 02-08-2025 ambulatory Maryuri Begum NP Facility:[facility] Start: 11-29-2024 End: 11-29-[address] Braxton Doss MD -[facility] Work Phone: Start: 11-29-2024 End: 11-29-2024 ambulatory Jluis Nichole Facility:[facility] [place] Start: 11-16-2024 End: 11-16-2024 ambulatory Jluis Nichole Facility:[facility] Start: 11-16-2024 End: 11-16-2024 Patient encounter procedure Elijah Qu[facility]o [facility] Work Phone: Start: 11-01-2024 End: 11-01-[address] JLUIS NICHOLE DO Facility:[facility] Start: 11-01-2024 End: 11-01-[address] TIA POWELL MD [facility] Start: 09-12-2024 End: 09-12-2024 ambulatory Toney Gutierrez MD Work Phone: Hematology/Oncology Comment on above: Thrombocytopenia (HC C) (Primary Dx); Anemia, unspecified type Start: 09-12-2024 End: 09-12-2024 Patient encounter procedure Toney Gutierrez MD Work Phone: Hematology/Oncology Start: 08-14-2024 End: 08-14-[address] JLUIS NICHOLE DO Facility:[facility] Start: 08-14-2024 End: 08-14-[address] JLUIS NICHOLE DO [facility] Start: 08-11-2024 End: 08-15-[address] JLUIS NICHOLE DO Facility:[facility] Start: 08-11-2024 End: 08-15-2024 Encounter for general adult medical examination without abnormal findings DR JLUIS NICHOLE DO Facility:[facility] Start: 08-11-2024 End: 08-15-[address] JLUIS NICHOLE DO [facility] Start: 07-07-2024 End: 07-07-[address] TIA POWELL MD [facility] Start: 06-14-2024 End: 06-14-2024 Emergency department patient visit FLORENTIN MORAN DO [facility] Start: 02-21-2024 End: 02-21-[address] TIA POWELL MD Facility:B Start: 02-21-2024 End: 02-21-[address] TIA POWELL MD [facility] Start: 11-19-[address] JLUIS NICHOLE DO Facili ty:R Start: 11-15-2023 End: 12-15-[address] JLUIS NICHOLE DO Facility:[facility] Start: 10-27-2023 End: 10-27-[address] TIA POWELL MD Facility:B Start: 06-24-2023 End: 06-25-[address] JLUIS NICHOLE DO Facility:[facility] Start: 06-09-2023 End: 06-09-[address] TIA POWELL MD Facility:[facility] Start: 04-01-2023 End: 04-01-[address] Layne Doherty Work Phone: [facility] Work Phone: Start: 04-01-2023 End: 04-01-[address] Layne Doherty Work Phone: [facility] Work Phone: Start: 04-01-2023 End: 04-01-[address] Layne Doherty Work Phone: [facility] Work Phone: Start: 03-02-2023 End: 03-02-[address] Layne Doherty Work Phone: [facility] Work Phone: Start: 02-25-2023 End: 02-25-2023 ambulatory MARYURI BEGUM CNP Facility:B Start: 12-14-2022 End: 12-14-[address] Layne Doherty Work Phone: [facility] Work Phone: Start: 12-14-2022 End: 12-14-[address] Layne Doherty Work Phone: [facility] Start: 12-08-2022 End: 12-08-[address] Layne Doherty Work Phone: [facility] Work Phone: Start: 12-08-2022 End: 12-08-[address] Layne Doherty Work Phone: [facility] Start: 11-26-2022 End: 11-26-[address] Layne Doherty Work Phone: [facility] Start: 10-30-2022 End: 10-30-[address] TIA POWELL MD [facility] Start: 10-19-2022 End: 10-19-[address] JLUIS NICHOLE DO [facility] Start: 09-01-2022 End: 09-01-[address] Layne Doherty Work Phone: [facility] Start: 08-25-2022 End: 08-25-2022 Patient encounter procedure MARYURI BEGUM CNP [facility] Start: 04-29-2022 End: 04-29-[address] TIA POWELL MD [facility] Start: 03-09-2022 End: 03-09-[address] Layne Doherty Work Phone: [facility] Start: 03-07-2022 End: 03-07-[address] Layne Doherty Work Phone: [facility] Start: 01-19-2022 End: 01-19-[address] TIA POWELL MD [facility] Start: 12-30-2021 End: 04-07-2022 Physical therapy management LAYNE DOHERTY DO [facility] Start: 11-18-2021 End: 11-18-2021 Patient encounter procedure MARYURI BEGUM THERAPEUTIC DIETITIAN [facility] Start: 06-01-2018 Patient encounter ARTEM Friedman cility:[facility] Procedures Date Procedure Procedure Detail Performing Clinician Start: 04-26-2025 Complete ultrasound of kidneys and bladder Dr. Jluis Nichole DO Work Phone: Start: 12-14-2022 MRI of brain without contrast Dr. Layne Doherty Work Phone: Start: 03-07-2022 MRI of brain without contrast Dr. Layne Doherty Work Phone: Start: 02-01-2019 Cystoscopy MARYURI BEGUM THERAPEUTIC DIETITIAN Comment on above: Per [place] office no te Start: 08-03-2018 Transurethral prostatectomy MARYURI BEGUM THERAPEUTIC DIETITIAN Comment on above: Per [place] office no te Start: 08-03-2018 Transurethral resect ion of bladder neoplasm MARYURI BEGUM THERAPEUTIC DIETITIAN Comment on above: Per [place] office no te Start: 06-03-2018 History of coronary artery bypass grafting S/P CABG x 5 Toney Gutierrez MD Work Phone: Start: 04-20-2018 History of coronary artery bypass grafting S/P coronary artery bypass graft x 5 [facility] CONTE Comment on above: SANCHEZ-LAD, SVG - acut e marginal, SVG seq to DG 2, DG3, SVG-OM 05/13/18 @ [facility] Start: 09-20-2002 Biopsy of prostate MARYURI BEGUM THERAPEUTIC DIETITIAN Comment on above: Per [place] office no te Start: 09-20-1997 Biopsy of prostate MARYURI BEGUM THERAPEUTIC DIETITIAN Comment on above: Per [place] office no te Extracorporeal shock wave lithotripsy of calculus of kidney MARYURI BEGUM THERAPEUTIC DIETITIAN Comment on above: Per [place] office no te Knee region structur e (body structure) MARYURI BEGUM THERAPEUTIC DIETITIAN Procedure on heart MARYURI BEGUM THERAPEUTIC DIETITIAN Structure of left wr ist (body structure) MARYURI BEGUM THERAPEUTIC DIETITIAN Comment on above: Pins s/p fall on ice Plan of Treatment Date Care Activity Detail Author Start: 10-07-2032 Urine microalbumin profile DTaP,Tdap,Td Vaccine (2 - Td or Tdap) [facility] Start: 01-11-2025 End: 01-11-2025 ambulatory 01/11/2025 10:20 AM EDT Visit (SP) Office Hematology/Oncology [address] [place] [address] [place] [address] [place] [address] CBC/ 4 MO OV Hematology/Oncology Comment on above: CBC/ 4 MO OV Start: 09-12-2024 End: 12-12-2024 aPTT in Platelet poor plasma by Coagulation assay ACTIVATED PARTIAL THROMBOPLASTIN TIME Lab Routine Thrombocytopenia (HCC) Expected: 09/12/2024, Expires: 12/12/2024 [facility] Comment on above: Expected: 09/12/2024 , Expires: 12/12/2024 Start: 09-12-2024 End: 12-12-2024 CBC W Auto Differential panel - Blood COMPLETE BLOOD COUNT AND DIFFERENTIAL Lab Routine Thrombocytopenia (HCC) Expected: 09/12/2024, Expires: 12/12/2024 [facility] Work Phone: Comment on above: Expected: 09/12/2024 , Expires: 12/12/2024 Start: 09-12-2024 End: 12-12-2024 PT panel - Platelet poor plasma by Coagulation assay PROTHROMBIN TIME Lab Routine Thrombocytopenia (HCC) Expected: 09/12/2024, Expires: 12/12/2024 [facility] Comment on above: Expected: 09/12/2024 , Expires: 12/12/2024 Start: 05-21-2024 Covid-19 Vaccine ( season) Covid-19 Vacc[address] () [facility] Start: 09-20-2023 Advance Directive Discussion Advance Directive Discussion [facility] Start: 08-13-2023 Shingrix Vaccine (2 of 2) Shingrix Vaccine (2 of 2) [facility] Start: 04-01-2023 Serum immunofixation [facility] Start: 04-01-2023 Urine immunofixation [facility] Start: 11-26-2022 Patient referral [facility] Work Phone: Start: 07-01-2019 Hepatitis B surface antibody level LDL Cholesterol [facility] Start: 11-10-2018 Hemoglobin A1c measurement HbA1C [facility] Start: 1958 Anxiety Screening Anxiety Screening [facility] Start: 1958 Depression Screening Depression Scre ening [facility] Start: 1950 Diabetic foot examination Diabetic Foot Exam [facility] Start: 1950 Glaucoma screening Dilated Retinal E xam [facility] Start: 1950 Hepatitis B screening Urine Al bumin:Creatinine Ratio [facility] MR Brain WO contrast [facility] Patient referral [facility] Work Phone: Serum protein electrophoresis [facility] Carotid arteries [facility] Heart [facility] Immunizations Immunization Date Immunization Notes Care Provider [facility] 06-28-2024 influenza, high dose seasonal, preservative-free; Translations: [Fluad PF Prefilled Syringe ] DR TIA POWELL MD [facility] 08-22-2023 RSV vaccine preF3, recombinant DR TIA POWELL MD [facility] 07-15-2023 SARS-CoV-2 (COVID-19 ) [id number] DR TIA POWELL MD [facility] 06-18-[address] TIA POWELL MD [facility] Comment on above: Result Comment: Oswaldo Sheffield IM left upper arm 05-15-2023 influenza virus vaccine, unspecified formulation DR TIA POWELL MD [facility] 04-27-2023 pneumococcal 20-keron nt conjugate vaccine DR TIA POWELL MD [facility] 10-07-2022 tetanus toxoid, reduced diphtheria toxoid, and acellular pertussis vaccine, adsorbed; Translations: [Boostrix (Tdap)] DR JLUIS NICHOLE DO [facility] 08-22-2022 influenza virus vaccine, unspecified formulation DR TIA POWELL MD [facility] 01-26-2022 SARS-CoV-2 (COVID-19 ) mRNA-[address] TIA POWELL MD [facility] 07-24-2021 SARS-CoV-2 (COVID-19 ) mRNA-[address] TIA POWELL MD [facility] Comment on above: Result Comment: 2022: [id number] 06-04-2021 influenza virus vaccine, unspecified formulation DR TIA POWELL MD [facility] 11-07-2020 COVID-19, mRNA, LNP- S, PF, 100 mcg or 50 mcg dose; Translations: [Moderna COVID-19 Vaccine] MARYURI BEGUM THERAPEUTIC DIETITIAN [facility] 10-10-2020 COVID-19, mRNA, LNP- S, PF, 100 mcg or 50 mcg dose; Translations: [Moderna COVID-19 Vaccine] MARYURI BEGUM CNP [facility] 05-23-2020 influenza virus vaccine, unspecified formulation MARYURI ROOF THERAPEUTIC DIETITIAN [facility] Comment on above: Result Comment: brenad meier administered 05-23-2020 pneumococcal conjuga te vaccine, 13 valent MARYURI BEGUM THERAPEUTIC DIETITIAN [facility] 05-20-2019 influenza virus vaccine, unspecified formulation MARYURI BEGUM THERAPEUTIC DIETITIAN [facility] 06-15-2018 influenza virus vaccine, unspecified formulation MARYURI BEGUM THERAPEUTIC DIETITIAN [facility] 06-15-2018 influenza, injectabl e, quadrivalent, preservative free Dr. Jluis Nichole DO Work Phone: [facility] 06-15-2018 influenza, seasonal, injectable Dr. Layne Doherty Work Phone: [facility] 07-21-[address] Layne Doherty Work Phone: [facility] 06-08-2017 influenza virus vaccine, unspecified formulation MARYURI BEGUM THERAPEUTIC DIETITIAN [facility] 06-09-2016 influenza virus vaccine, unspecified formulation MARYURI BEGUM THERAPEUTIC DIETITIAN [facility] 06-11-2015 influenza virus vaccine, unspecified formulation MARYURI BEGUM THERAPEUTIC DIETITIAN [facility] 05-21-2015 pneumococcal polysaccharide vaccine, 23 valent MARYURI BEGUM THERAPEUTIC DIETITIAN [facility] 06-12-2014 influenza virus vaccine, unspecified formulation MARYURI BEGUM THERAPEUTIC DIETITIAN [facility] 06-13-2013 influenza virus vaccine, unspecified formulation MARYURI BEGUM THERAPEUTIC DIETITIAN [facility] 08-21-2005 pneumococcal polysaccharide vaccine, 23 valent MARYURI BEGUM THERAPEUTIC DIETITIAN [facility] Payers Date Payer Category Payer Self-pay [id number] 2016 Private Health Insurance [id number] 2016 Unknown [id number] 2005 Medicare [id number] 2005 Medicare [id number] 1940 Unknown [id number] 2.16.8 40.1.536520.3.579.2. 1940 Unknown [id number] .16.8 40.1.899167.3.579.2. 1940 Unknown [id number] 2.16.8 40.1.448863.3.579.2. 1940 Unknown [id number] 2.16.8 40.1.463121.3.579.2.627 1940 Unknown [id number] 2.16.8 40.1.094234.3.579.2.627 1940 Unknown [id number] 2.16. 840.1.018761.3.579.2.62 1940 Unknown [id number] 2.16. 840.1.454915.3.579.2.627 1940 Unknown [id number] 2.16. 840.1.242981.3.579.2.627 1940 Unknown [id number] 2.16. 840.1.245663.3.579.2.627 1940 Unknown [id number] 2.16. 840.1.286569.3.579.2.627 1940 Unknown [id number] 2.16. 840.1.090254.3.579.2.62 1940 Unknown [id number] 2.16.8 40.1.514589.3.579.2.62 1940 Unknown [id number] 2.16.8 40.1.910005.3.579.2.62 1940 Unknown [id number] 2.16.8 40.1.137636.3.579.2.627 Unknown [id number] 2.16.8 40.1.086915.3.579.2.462 Unknown [id number] 2.16.8 40.1.693591.3.579.2.462 Unknown [id number] 2.16.8 40.1.777478.3.579.2.462 Unknown [id number] 2.16.8 40.1.293426.3.579.2.462 Unknown [id number] 2.16.8 40.1.414029.3.579.2.462 Unknown [id number] 2.16.8 40.1.379161.3.579.2.462 Unknown [id number] 2.16.8 40.1.540073.3.579.2.462 Unknown [id number] 2.16.8 40.1.358345.3.579.2.462 Unknown [id number] 2.16.8 40.1.543827.3.579.2.462 Unknown [id number] 2.16.8 40.1.008541.3.579.2.462 Unknown [id number] 2.16.8 40.1.466155.3.579.2.462 Unknown [id number] 2.16.8 40.1.065978.3.579.2.462 Unknown [id number] 2.16.8 40.1.519380.3.579.2.462 Unknown [id number] 2.16.8 40.1.850161.3.579.2.462 Unknown [id number] 2.16.8 40.1.263355.3.579.2.462 Social History Date Type Detail Facility Start: 06-20-2019 Never smoked t obacco (finding) [facility] Start: 1940 Sex Assigned At Male A [facility] Start: 03-09-2022 End: 04-01-2023 Tobacco smoking status NHIS Unknown if ever smoked [facility] Start: 03-22-[address]-smoker [facility] Start: 10-11-2022 End: 11-29-2024 Tobacco smoking status Ex-smoker (finding) [facility] Start: 06-09-[address] [facility] Start: 06-09-2018 Spouse/ Signif icant Other [facility] End: 09-20-1993 History of tobacco use Current smoker [facility] End: 09-20-1993 History of tobacco use Cigar Smoker [facility] Start: 09-12-2024 Tobacco use and exposure Smokeless tobacco non-user [facility] Start: 05-13-2018 End: 09-12-2024 History of [address] [facility] Start: 05-13-2018 End: 09-12-[address] [facility] PHQ2 Score 0 [facility] Start: 1940 Sex assigned at Not on file C [facility] Sexual Orientation [facility] Start: 08-14-2019 Sex Male (finding) [facility] Start: 07-12-2025 Not applicable (qualifier value) [facility] Medical Equipment Procedure Code Equipment Code Equipment Original Text Equipment Identifier Dates See Instructions , Freestyle lite test strips. use 1 strip daily. Use as directed, # 100 EA, 2 Refill(s), [id number], Diabetes, 175, cm, 12/15/21 8:54:00 EDT, Height, 83.8 Start: 03-10-2022 See Instructions , Freestyle lite test strips. use 1 strip daily. Use as directed, # 100 EA, 2 Refill(s), [id number], Diabetes, 175, cm, 12/15/21 8:54:00 EDT, Height, 83.8 Start: 03-10-2022 See Instructions , Freestyle lite test strips. use 1 strip daily. Use as directed, # 100 EA, 2 Refill(s), [id number], Diabetes, 175, cm, 12/15/21 8:54:00 EDT, Height, 83.8 Start: 03-10-2022 See Instructions , Freestyle lite test strips. use 1 strip daily. Use as directed, # 100 EA, 2 Refill(s), [id number], Diabetes, 175, cm, 12/15/21 8:54:00 EDT, Height, 83.8 Start: 03-10-2022 See Instructions , Freestyle lite test strips. use 1 strip daily. Use as directed, # 100 EA, 2 Refill(s), [id number], Diabetes, 175, cm, 12/15/21 8:54:00 EDT, Height, 83.8 Start: 03-10-2022 [place] Thk1.65mm P tfe 4x.5in Cardiovascular Sterile - [id number] Start: 05-13-2018 Functional Status Date Assessment Result Facility 07-12-2025 Functional Status Minimum assistance [facility] 07-12-2025 Functional Status [facility] 07-12-2025 [facility] 06-14-2024 Functional Status Minimum assistance [facility] 06-14-2024 Functional Status ID band on, Call device within reach, Bed in low position, Wheels locked, Upper/Half-Length side-rails up, Visitor at bedside, Safety level maintained 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 [facility] Mental Status Date Assessment Result Facility 07-12-2025 Mental Status Orientation Oriented x 4 [facility] 07-12-2025 [facility] 06-14-2024 Mental Status Orientation Oriented x 4 [facility] 06-14-2024 Mental Status [facility] Clinical Notes 04-20-2018 to 07-12-2025 Note Date & Type Note Facility 07-12-2025 Hospital Discharg e instructions Patient Education 07/12/2025 11:57:15 Hyperkalemia Hyperkalemia Hyperkalemia is too much potassium in the blood. This most often occurs in people who take certain medicines or people with kidney disease. This condition often has no symptoms until levels of potassium become high. If symptoms do occur, they include muscle weakness and changes in the heartbeat. A blood test is done to diagnose the problem. An ECG (electrocardiogram) may also be done to test the heartbeat. If hyperkalemia is caused by a medicine, the healthcare provider may lower the dose or switch to a different medicine. A low-potassium diet may also be prescribed. Home care Be sure your healthcare provider knows about all of the medicines you take. Follow your healthcare provider's advice about making changes to your medicines. If a low-potassium diet has been prescribed, follow this closely. If you need help, ask to be referred to a dietitian for advice on how to follow this diet. Follow-up care Follow up with your healthcare provider. You may need a repeat blood test within the next 7 days. Schedule this as advised. When to seek medical advice Call your healthcare provider right away if any of the following occur: Weakness, dizziness, or lightheadedness Nausea, vomiting, or diarrhea Urinating only in small amounts or not urinating Symptoms don't go away or get worse Call 911 Call 911 if any of the following occur: Fast or irregular heartbeat Fainting Severe shortness of breath Chest, arm, shoulder, neck or upper back pain Trouble controlling your muscles [phone] [employer]. [address] [place] [address], [place] [address]. All rights reserved. This information is not intended as a substitute for professional medical care. Always follow your healthcare professional's instructions. Follow Up Care 07/12/2025 09:18:39 With:Go to emergency room if symptoms worsen Address:Unknown When:2-4 days With:JLUIS NICHOLE DO Address: [address] [place] [phone] When:2-4 days [facility] 07-12-2025 Note Discharge Instructions Thank you for allowing [facility] to assist you with your healthcare needs. The following is important discharge information regarding your hospital visit. Diagnosis from Today's Visit Hyperkalemia What to Do Next Instructions from Your Care Team Potassium today was 5.2 on check here. Recommended to resume home Lokelma and to call senior it engineer for further outpatient management and following of potassium levels. Return to the emergency department for any acute concerns. No qualifying data available. Post Acute Orders No qualifying data available. You Need to Schedule the Following Appointments Follow Up with Go to emergency room if symptoms worsen When:Within 2-4 days Follow Up with JLUIS NICHOLE DO When:Within 2-4 days Where:[address] [place] [id number] [phone] Allergies NKA Medications Please ask your primary doctor or pharmacist before taking any other medication not listed, including over the counter drugs, herbal medications, vitamins and or supplements as they may interact with your home medications. What How Much When Why Instructions Last Dose Unchanged acetaminophen (Tylenol Extra Strength 500 mg oral tablet) by mouth Every 6 hours Unchanged amoxicillin-clavulanate (amoxicillin-clavulanate 875 mg-125 mg oral tablet) 1 tab(s) by mouth Every 12 hours Duration: 10 Days with food or milk Unchanged atorvastatin (atorvastatin 40 mg oral tablet) 1 tab(s) by mouth Daily at bedtime Duration: 100 Days pt would like prepackaged meds Unchanged carbidopa-levodopa (carbidopa-levodopa 25 mg-100 mg oral tablet) 2 tab(s) by mouth Four (4) times a day Unchanged cholecalciferol (cholecalciferol 125 mcg (5000 intl units) oral tablet) 1 tab(s) by mouth Every other day with food Unchanged diphenhydrAMINE (Benadryl) PRN Unchanged DME (DME MISCellaneous) See instructions Peripheral edema Bilateral knee high compression hose medium 20-30, Dx: R60.9 Unchanged doxazosin (doxazosin 4 mg oral tablet) TAKE 1 TABLET BY MOUTH EVERYDAY AT BEDTIME Unchanged metoprolol (Metoprolol Succinate ER 100 mg oral TABLET extended release) 0.5 tab(s) by mouth Two (2) times a day Duration: 100 Days do not crush or chew pt would like prepackaged meds Unchanged pantoprazole (pantoprazole 40 mg oral enteric coated tablet) 1 tab(s) by mouth Once a day before a meal Duration: 90 Days Pt would like prepackaged meds Unchanged rOPINIRole (rOPINIRole 1 mg oral tablet) TAKE 1 TABLET BY MOUTH AT BEDTIME BEGIN AFTER COMPLETING 1 WEEK COURSE OF ROPINIROLE 0.5 MG NIGHTLY. Unchanged sodium zirconium cyclosilicate (Lokelma 10 g oral powder for reconstitution) 1 Packet(s) by mouth Once a day do not take within 2 hours of other medications Please take this list to your next doctor s visit. Bring all medications you take, including over the counter medications, herbals and other supplements with you to your doctor s visit. Patients and families are reminded to discard old lists and to update any records with all medication providers or retail pharmacies. Education Materials Hyperkalemia Hyperkalemia is too much potassium in the blood. This most often occurs in people who take certain medicines or people with kidney disease. This condition often has no symptoms until levels of potassium become high. If symptoms do occur, they include muscle weakness and changes in the heartbeat. A blood test is done to diagnose the problem. An ECG (electrocardiogram) may also be done to test the heartbeat. If hyperkalemia is caused by a medicine, the healthcare provider may lower the dose or switch to a different medicine. A low-potassium diet may also be prescribed. Home care Be sure your healthcare provider knows about all of the medicines you take. Follow your healthcare provider's advice about making changes to your medicines. If a low-potassium diet has been prescribed, follow this closely. If you need help, ask to be referred to a dietitian for advice on how to follow this diet. Follow-up care Follow up with your healthcare provider. You may need a repeat blood test within the next 7 days. Schedule this as advised. When to seek medical advice Call your healthcare provider right away if any of the following occur: Weakness, dizziness, or lightheadedness Nausea, vomiting, or diarrhea Urinating only in small amounts or not urinating Symptoms don't go away or get worse Call 911 Call 911 if any of the following occur: Fast or irregular heartbeat Fainting Severe shortness of breath Chest, arm, shoulder, neck or upper back pain Trouble controlling your muscles [phone] [employer]. [address] [place] [address], [place] [address]. All rights reserved. This information is not intended as a substitute for professional medical care. Always follow your healthcare professional's instructions. Additional Information VACCINATE! IT SAVES LIVES! Members of the community who have not yet received the COVID-19 vaccine and would like to receive it can visit one of [facility] vaccine clinics. There are many vaccine clinic locations within the [facility]. For locations and available times, please visit [email or web address] It is important to note that some COVID mobile vaccine clinics are held outdoors and may be canceled in rainy or stormy conditions. To learn more about pediatric vaccinations (ages 5-11), we invite you to visit the [facility] webpage. [email or web address] [email or web address]-[email or web address]-Freq [email or web address] To learn more about the COVID-19 vaccine, we invite you to visit the CDC website for a list of frequently asked questions. https://www.cdc.gov/coronavirus/ 2019-ncov/vaccines/faq.html [facility] Patient Portal Access Instructions: Stay connected with your healthcare team and access your personal medical information anytime with the [facility] Patient Portal. If you would like a full copy of your medical records please contact the [facility] Medical Records Department Wednesday through Wednesday between 8a.m. and 4:30p.m. Please follow the directions below to access the portal: 1.Access the email account you provided upon registration to the hospital.2.Look for an invitation email from [facility].3.Open the email and access the invitation link: Accept Invitation to [facility]4.Fill in the required liriano to create your account. To access your account, visit [facility]/Clarivoykimberlee or scan the [place] code above. Click the blue button labeled Access Patient Portal and then log in with the username and password that you created in the steps above. You can then view a summary of results, a summary of your visits, and the ability to download your summaries to your computer or send the information securely to a physician. Remember that your healthcare information is confidential, so carefully consider who you will allow to register on the [facility] Patient Portal for access to your information. You can also access the [facility] Patient Portal on the [employer]. Simply click on Health Records under Health Data and then click on the [employer] logo. HOW TO SAFELY DISPOSE OF PRESCRIPTION MEDICATIONS Please use one of the following methods to safely dispose of your unused medications. 1.Use a drug disposal kit: the drug disposal pouch allows you to safely discard your old and unused drugs. Ask your nurse to give you one when you are discharged.2.Visit a local take-back location: Many local pharmacies and police departments have programs that collect old and unwanted prescription drugs. Call your local pharmacy or go to http://bit.[facility]/8R6Rj9g to find one close to you.3.Make use of household items: Use cat litter or old coffee grounds to dispose medications if other options are not available. Mix your drugs with these household products, seal them in an airtight container and throw it into the garbage. Call [facility]: [phone] to be sure your drugs can be disposed of in this way. Some medicines may require a different approach.4.Never flush your medications down the toilet. IF YOU HAVE BEEN PRESCRIBED AN OPIOIDS FOR PAIN If you have been prescribed an opioid (such as hydrocodone, oxycodone or morphine), it is critical to understand the possible side effects and risks of opioid pain medications. Even when taken as directed, opioids can have several side effects including: Tolerance, meaning you might need to take more of a medication for the same pain relief. Nausea, vomiting and/or constipation. Sleepiness, dizziness, dry mouth, confusion, depression or itching. Physical dependence, meaning you have withdrawal symptoms when a medication is stopped ? this can develop within a few days. KNOW YOUR RESPONSIBILITIES It is important to know exactly how much and how often to take the opioid pain medications you are prescribed. Never take opioids in higher amounts or more often than prescribed. Do not combine opioids with alcohol or other drugs that cause drowsiness, such as benzodiazepines, also known as benzos, including diazepam and alprazolam, muscle relaxants or sleep aids. Never sell or share prescription opioids. This is illegal. Store opioids in a secure place and out of reach of others (including children, family, friends and visitors). The last page(s) of this document has been signed and retained as a CHART COPY Signatures Patient Education Materials Hyperkalemia Medication Leaflets My discharge plan and instructions have been reviewed and explained to me and I,EKATERINA RANDHAWA understand my current condition and have read and understand these discharge instructions. I have received a written copy of the plan/instructions. If I have questions, I am aware that I should contact my doctor. 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 07-06-2025 Note . MICRO - Microbiology PROCEDURE: Urine Culture [*1] SOURCE: Urine BODY SITE: COLLECTED DATE/TIME: 07/04/2025 16:17 EDT RECEIVED DATE/TIME: 07/04/2025 19:24 EDT START DATE/TIME: 07/04/2025 19:24 EDT FREE TEXT SOURCE: FINAL REPORTS Final Report [] Verified Date/Time/Personnel: 07/06/2025 07:41 EDT No growth at 48 hours. PRELIMINARY REPORTS Preliminary Report [] Verified Date/Time/Personnel: 07/05/2025 10:27 EDT No growth to date Preliminary Report [] Verified Date/Time/Personnel: 07/04/2025 19:59 EDT Specimen received in lab. Performing Locations *1: This test was performed at: [facility], [address] [place] [address], [facility] , [facility] 07-05-2025 Note Exam Date Time Procedure Performing Provider Status 07/05/25 9:[address] Head or Brain w/o Contrast LAYNE NAYAK MD; Auth (Verified) [id number] ORIGINAL EXAMINATION: CT HEAD TECHNIQUE: Axial CT images from skull base to vertex without IV contrast. This exam was performed according to our departmental dose optimization program, and includes the following measures where applicable: automated exposure control, adjustment of the mAs and/or kVp according to patient size and/or exam, and an iterative reconstruction algorithm. COMPARISON: CT head 05/05/2020 HISTORY: ORDERING SYSTEM PROVIDED HISTORY: Reason for Exam: fall and confusion, rule out CVA, intracranial bleed FINDINGS: Parenchyma: No acute intracranial hemorrhage, midline shift, mass effect or acute ischemic infarct is demonstrated. The pizano-white matter junctions are preserved. No space occupying intra-axial masses or extra-axial fluid collections are seen. Moderate parenchymal volume loss is noted, greater on the left side. Scattered areas of decreased attenuation are identified in the subcortical, periventricular, and deep white matter reflecting mild to moderate chronic microvascular white matter ischemic disease. Ventricles: Mildly prominent ventricles which commensurate with mild parenchymal volume loss and patient's age. Vessels: Mild calcification of the intracranial arteries. Orbits: Bilateral pseudophakia. Calvarium: Unremarkable. Paranasal sinuses: Clear. Mastoid sinuses: Small left mastoid effusion. IMPRESSION: No acute intracranial pathology. I have personally reviewed the images of this examination and agree with the resident's findings and interpretation. Interpreted by: Layne Nayak MD Preliminary Report By: Teresa Kowalski Electronically signed By Layne Nayak MD Dictated Date: 07/05/2025 3:54:19 PM Prelim Date: 07/05/2025 4:57:02 PM Sign Date: 07/05/2025 4:57:02 PM Ordering Provider: JLUIS Kolorific [facility]10-15-2025 Note* Exam Date Time Procedure Performing Provider Status 07/04/25 4:05 PM XR Humerus Minimum 2 Views Right LILIANA HENAO DO; Auth (Verified) [id number] ORIGINAL EXAMINATION: TWO XRAY VIEWS OF THE RIGHT HUMERUS COMPARISON: Left shoulder radiograph 05/05/2020 HISTORY: ORDERING SYSTEM PROVIDED HISTORY: Reason for Exam: proximal anterior ecchymosis and pain after fall, rule out fracture FINDINGS: No acute fracture or dislocation. Bony alignment is within normal limits. Degenerative changes the visualized shoulder and elbow joints. The soft tissues are unremarkable. No radiopaque foreign body. IMPRESSION: No acute fracture or dislocation. I have personally reviewed the images and agree with the resident's findings and interpretation. Interpreted by: Liliana Xiong Preliminary Report By: Santos Small Electronically signed By Liliana Xiong Dictated Date: 07/04/2025 4:20:42 PM Prelim Date: 07/04/2025 4:23:12 PM Sign Date: 07/04/2025 5:10:20 PM Ordering Provider: [employer] [facility]10-15-2025 Note* Exam Date Time Procedure Performing Provider Status 07/04/25 4:02 PM XR Chest 2 Views JAIRO ROBERTSON DO; Auth (Verified) [id number] ORIGINAL EXAMINATION: TWO XRAY VIEWS OF THE CHEST TECHNIQUE: CHEST AP/PA and LATERAL COMPARISON: CXR from May 05, 2020. HISTORY: ORDERING SYSTEM PROVIDED HISTORY: Reason for Exam: confusion, fall, rule out pneumonia FINDINGS: The head partially obscures the lung apices on frontal view. Arm positioning partially obscures the lungs on lateral view. Sternotomy wires, mediastinal vascular clips, and epicardial wires noted. Atherosclerotic and tortuous aorta. Moderate cardiomegaly. The mediastinal silhouette is stably enlarged. No vascular congestion. The lungs are hyperinflated. There is mild left hemidiaphragm elevation. Lateral right lower lung hazy opacification. Costophrenic angles are sharp. No pleural effusion or visible pneumothorax. Degenerative changes of the visualized shoulders and spine. IMPRESSION: Lateral right lower lung hazy opacification may represent infectious process. Recommend correlation with patient's symptoms and radiographic follow-up to resolution. I have personally reviewed the images of this examination and agree with the resident's findings and interpretation. Interpreted by: Jairo Robertson DO Preliminary Report By: Liban Munguia Electronically signed By Jairo Robertson DO Dictated Date: 07/04/2025 4:12:22 PM Prelim Date: 07/04/2025 4:38:56 PM Sign Date: 07/04/2025 4:38:56 PM Ordering Provider: JLUIS NICHOLE RP [facility]09-22-20[facility] [address] [place] [address], [address] [place] [address] OFFICE VISIT Date of Service: 06/11/25 MR#: [id number] Acct: [id number] Name: EKATERINA RANDHAWA Rep #: [id number] : 1940 Provider: Dr. Cora Doss MD Age/Sex: 85/M Location: [facility]. Status: Signed HPI HPI Chief Complaint: Details: Interim History: Ekaterina returns for follow-up visit. He has a history of hypertension, diabetes mellitus, benign prostatic hypertrophy status post TURP, myocardial infarction status post CABG in 2017, hyperlipidemia and stage IV renal insufficiency. Since 2019, he has had some gait difficulty. His gait has become short stepped and shuffling. He uses a cane. He has had difficulty arising from his bed in the morning and and arising from a chair. He denied having numbness or focal weakness however he reported having fatigue and vague generalized weakness. He had a right total knee replacement. He denied having pain in the lower extremities, neck or lower back. Since 2021, he has had a bilateral hand tremor that is present at rest. His tremor has subsided since increasing his dose of carbidopa/levodopa 25/100 to 2 tablets 3 times daily in 2022. He experiences occasional diplopia. He has had nystagmus. He has had urinary incontinence since at least 2007. He has had hypophonia since 2018 (he stated that this began during his hospitalization for his [place]/CABG and may have been procedure related). He has occasional swallowing difficulties since around 2018;he compensates for this by taking small bites. Over recent years his handwriting has become sloppier. He experiences occasional disequilibrium. He has chronic bilateral hearing loss. He reported having some memory difficulty however no change in his memory hasbeen noted recently and he remains independent in his daily activities. Mini- Mental status exam score in November 2022 was 22/30. He does not have any history of symptomatic stroke. 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 He takes aspirin 81 mg daily and atorvastatin 40mg daily. A prior B12 injection was of some benefit for his fatigue. He is taking carbidopa/levodopa and had initial improvement of his mobility; however, his mobility worsened earlier in 2024. His dose of carbidopa/levodopa was increased to 2 tablets 4 times daily. No subsequent further change in his gait has been noted and he does not wish to make any medication change at this time. He has received physical therapy and occupational therapy earlier in 2024. He currently lives alone with the assistance of home health care and family support. He also meets with palliative care monthly. He has had nighttime restlessness of the legs since 2023. He feels the need to move his legs at night and his leg discomfort diminishes when he arises to walk. Ropinirole mg nightly was initiated earlier in 2024 and has been of benefit for his leg restlessness. Patient states that he feels well rested and sleeps approximately 9 to 10 hours per night. A right carotid bruit was noted on his last exam; no carotid bruits noted on exam today. His carotid ultrasound in March 2025 revealed less than 50% stenosisof the internal carotid arteries bilaterally; vertebral flow was antegrade bilaterally. Physical Exam: Neuro: The patient is awake and alert; he has hypophonic speech; no rigidity is noted in the wrist;no tremors noted; his gait is slow; he ambulates with a cane; he is oriented to day of the week; heis able to subtract 7 from 100 Neck: No bruits Heart: Regular rate and rhythm; a murmur is auscultated On prior exam a right carotid bruit was auscultated Supplemental Info EKG (05/05/2020): Sinus rhythm; right bundle branch block and left anterior fascicular block. Heart rate [address] (05/05/2020): Impression: No acute or posttraumatic intracranial abnormality. Right parietal extracraniallaceration. Cerebralatrophy. Liver profile, lipid profile (02/25/2021): HDL 34 (low), VLDL 20 (normal), LDL 39 (normal), cholesterol 93 (normal), triglycerides 99 (normal) Cardiac echo (03/12/2021): The study was technically difficult. Segmental dysfunction with preserved ejection fraction (see wall motion). The estimated ejection fraction is 55 %. The left atrium is mildly enlarged. There is moderate to severe mitral annular calcification. Mild focal mitral valve calcification of the anterior leaflet. Trivial mitral valve insufficiency. Mild tricuspid valve insufficiency. Mild (1+) aortic valve insufficiency. Right ventricular systolic pressure estimated to be 34 mmHg. Transmitral diastolic flow velocities suggest diastolic dysfunction (pseudonormal pattern). Head MRI without contrast (03/07/2022): IMPRESSION: 1. No MRI evidence of acute or subacute ischemic infarct or acute intracranial abnormality. 2. 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 These images were reviewed on 11/26/2022. Moderate diffuse age-related cerebral atrophy is noted. A small old right frontal cortical infarct is noted. Mild tomoderate bilateral subcortical small vesselischemic disease is noted. Mild bilateral periventricular chronic small vessel ischemic disease is noted. CBC, CMP, thiamine, B12, folate, TSH, serum free light chains (12/08/2022): Hemoglobin 11.3 (low), hematocrit 35.2 (low), BUN 37 (high), creatinine 2.81 (high), EGFR 23 (low), glucose 165 (high), freekappa light chains 72.1 (high), free lambda light chains 38.1 (high), free kappa/lambda ratio 1.89 (high) Head MRI (12/14/2022): FINDINGS: Diffuse, nonspecific parenchymal volume loss may be age-related. Normal white matter tracts of the supratentorial brain. There is no evidence for recent intracranial ischemia or other cause of cytotoxic edema on diffusion weighted imaging (DWI). Normal T2* images of the brain without demonstrated susceptibility artifact. There is no demonstrated hemosiderin stain. No evidence of iron depositions. 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 Normal bilateral basal ganglia. Normal thalami. There is no extra-axial fluid accumulation. Normal flow voids within the major intracranial circulation suggesting patency by spin echo criteria. Normal sella turcica, pituitary gland, infundibular stalk, optic chiasm and hypothalamus. Normal tectal plate and pineal gland. Normal midbrain, david and medulla. Normal cerebellum. Normal basal cisterns. Paranasal sinuses are normally aerated. Mucous retention cysts in the left sphenoid sinus. Mastoid air cells and middle ears are normally aerated with note of trace fluid and some of the left mastoid air cells, similar to prior comparison exam. Normal calvarium and skull base. Normal visualized upper cervical spine. 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 Nonspecific diffuse parenchymal atrophy may be age-related. These images were reviewed on 04/01/2023. Mild bilateral cerebral convexity subdural subdural hygromas versus prominent CSF space secondary to parenchymal volume atrophy. Mild bilateral posterior fossa subdural hygromas versus cerebellar volume loss. Mild bilateral periventricular and subcortical white matter chronic small vessel ischemic disease is noted. An old right frontal cortical infarct is noted. Serum protein electrophoresis, serum immunofixation and urine immunofixation (04/01/2023): Normal. Lipid profile, liver profile (03/01/2024): HDL 33 (low), LDL 28 (normal), cholesterol 82 (normal), triglycerides 105 (normal) Lipid profile, liver profile (02/08/2025): Triglycerides 89 (normal), [id number] (normal), LDL 25(normal), HDL 38 (low) Cardiac echo (03/28/2025): Normal LV size. Moderate concentric left ventricular hypertrophy. Left ventricular systolic function is normal. The left ventricular ejection fraction is 65 %. Mild focal aortic valve calcification. Mean aortic valve gradient 14 mmHg. Magnesium (04/10/2025): Normal Carotid ultrasound (04/10/2025): Interpretation Summary Mild (<50%) stenosis right extracranial internal carotid. Mild (<50%) stenosis left extracranial internal carotid. Patent and antegrade vertebrals bilaterally. BMP (04/26/2025): Bicarb 20.7 (low), BUN 26 (high), creatinine 1.85 (high), eGFR 35 (low), glucose 174 (high) Assessment and Plan Assessment and Plan (1) Parkinsonism: Status: Chronic Qualifiers: Parkinsonism type: unspecified Qualified Code(s): G20 - Parkinson's disease (2) Mild cognitive impairment: Status: Chronic (3) Polyneuropathy: Status: Inactive (4) Restless legs syndrome: Status: Acute Medications: Refilled carbidopa-levodopa 25-100 mg 2 tabs PO .QID 240 tabs 6RF ropinirole 1 mg PO QHS 30 tabs 6RF Plan Details Additional Comments: The patient has mild to moderate parkinsonism. Over recent years, he has developed slowing and shuffling of his gait. He had had an intermittent restingtremor affecting both hands. He had had hypophonia and had some dysphagia. On initial examination, he exhibited mild cogwheel rigidity in the wrists. Since increasing his dose of carbidopa/levodopa 25/100 to 2 tablets 3 times daily his tremor has subsided and his gait has improved modestly. On exam in March 2025 heexhibited cogwheel rigidity in the wrists and a very mild bilateral hand tremor when arms were extended; he had reported having worsened posture and increased gait instability since earlier in 2024. His dose of carbidopa/levodopa 25/100 was increased to 2 tablets 4 times daily. The patient reported having no changein his symptoms however on exam today no rigidity is noted in the wrists and no tremor is noted. His gait is slow and he ambulates with a cane. He does not wish to make any further medication change at this time. On prior exam the patient has exhibited vertical nystagmus on upgaze. This finding raises the possibility for an as yet unidentified (possibly degenerative) central process that may be contributing to his gait disorder. His parkinsonian features may not be due to solely to an isolated degenerative p rocess involving the nigral striatal system but may represent a more diffuse cerebral process causing extrapyramidal dysfunction. His head MRI from November 2022 reveals mild bilateral cerebral convexity subdural subdural hygromas versus prominent CSF space secondary to parenchymal volume atrophy. Mild bilateral posterior fossa subdural hygromas versus cerebellar volume loss are noted. Mild bilateral periventricular and subcortical white matter chronic small vessel ischemic disease is noted. An oldright frontal cortical infarct is noted. He does not have any clear history of symptomatic stroke. He has a history of myocardial infarction and CABG (2018). He takes aspirin 81 mg daily and atorvastatin 40 mg daily. He has not had physical therapy and occupational therapy earlier in 2024. - Carbidopa/levodopa 25/100 2 tablets 4 times daily will be continued. The patient does not wish tomake any medication change at this time. - He receives home health care services. Cognitive deficits are noted on prior mini-mental status exam however, he hasremained fairly independent cognitively at home and no further worsening of his memory has been noted within recent months. I suspect that he has mild cognitive impairment (MCI). - His course will be followed. He has nighttime restless leg syndrome. Ropinirole was initiated in November 2024 and has been of benefit. - I will have him continue ropinirole 1 mg nightly. On exam in March 2025 he exhibited a right carotid bruit versus transmitted heart sound. A carotid ultrasound performed later in March 2025 revealed less than 50% stenosis of the internal carotid arteries bilaterally; vertebral flow was antegrade bilaterally. No carotid bruits noted on exam today. His cardiac echo reveals mild elevation of his aortic valve gradient suggesting mild aortic stenosis. He exhibited some sensory loss in the feet suggesting the presence of a polyneuropathy. This may bedue to his diabetes mellitus. He suspected polyneuropathy may be contributing to his gait disorder.His serum free light chains was abnormal. A subsequent serum protein electrophoresis, serum immunofi xation and urine immunofixation were unremarkable. A prior B12 injection was of benefit for his fatigue. At his office visit inApril 2023, he was not experiencing fatigue and did not want to receive further B12 injections. His vitamin D level was in the insufficiency range. He has subsequently initiated a vitamin D supplement. I will have him return for reassessment in 5 months. 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 Accompanied by: Daughter Allergies No Known Allergies Allergy (Verified 06/11/25 13:54) Antibiotics Adverse Reaction (Severe, Uncoded 06/11/25 13:54) C-diff Have you fallen in the past year?: Yes PFSH Medical History 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 Essential hypertension Atherosclerotic heart disease of [place] coronary artery without angina pectoris Postoperative atrial fibrillation Ischemic cardiomyopathy Paroxysmal atrial fibrillation VRE (vancomycin resistant enterococcus) culture positive Gastroparesis Gastric distention NG tube kinked Gastric outlet obstruction Encounter for nasogastric (NG) tube placement GERD (gastroesophageal reflux disease) Acute kidney injury Atrial fibrillation BPH (benign prostatic hyperplasia) Hyperlipidemia Diabetes mellitus type 2 in obese Left ventricular dysfunction Coronary artery disease NSTEMI (non-ST elevated myocardial infarction) Chest pain Surgical History H/O left wrist surgery History of coronary artery bypass surgery (~05/13/18) History of cataract surgery History of knee replacement, total Family History Father Myocardial infarction Social History Smoking Status: Former smoker Tobacco: How many years used: 8 second hand exposure: No alcohol intake: current details: rarely substance use type: does not use arelis/rastafarian: [place] seatbelt use: always Clinical Quality Measures Falls Risk Screening/Assistive Devices Have you fallen in the past year?: Yes Coding Level of Care Code Off vis,est,level 4 Diagnoses Parkinsonism, unspecified Parkinsonism type G20 Parkinsonism type: unspecified Mild cognitive impairment G31.84 Polyneuropathy G62.9 Restless legs syndrome G25.81 06/13/25 1511 ur > Date _ Braxton Doss MD Cosigner Signature: Date (if applicable) CC: ~ [facility]09-22-2025 Progress note Author Braxton Doss [facility] Note Date/Time June 11, 2025 2:41pm [facility] [address] [place] [address], [address] [place] [address] OFFICE VISIT Date of Service: 06/11/25 MR#: [id number] Acct: [id number] Name: EKATERINA RANDHAWA Rep #: [id number] : 1940 Provider: Dr. Cora Doss MD Age/Sex: 85/M Location: [facility] [place]. Status: Signed HPI HPI Chief Complaint: Details: Interim History: Ekaterina returns for follow-up visit. He has a history of hypertension, diabetes mellitus, benign prostatic hypertrophy status post TURP, myocardial infarction status post CABG in 2018, hyperlipidemia and stage IV renal insufficiency. Since 2019, he has had some gait difficulty. His gait has become short stepped and shuffling. He uses a cane. He has had difficulty arising from his bed in the morning and and arising from a chair. He denied having numbness or focal weakness however he reported having fatigue and vague generalized weakness. He had a right total knee replacement. He denied having pain in the lower extremities, neck or lower back. Since 2021, he has had a bilateral hand tremor that is present at rest. His tremor has subsided since increasing his dose of carbidopa/levodopa 25/100 to 2 tablets 3 times daily in 2022. He experiences occasional diplopia. He has had nystagmus. He has had urinary incontinence since at least 2007. He has had hypophonia since 2018 (he stated that this began during his hospitalization for his [place]/CABG and may have been procedure related). He has occasional swallowing difficulties since around 2017; he compensates for this by taking small bites. Over recent years his handwriting has become sloppier. He experiences occasional disequilibrium. He has chronic bilateral hearing loss. He reported having some memory difficulty however no change in his memory hasbeen noted recently and he remains independent in his daily activities. Mini-Mental status exam score in November 2022 was 22/30. He does not have any history of symptomatic stroke. 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 He takes aspirin 81 mg daily and atorvastatin 40mg daily. A prior B12 injection was of some benefit for his fatigue. He is taking carbidopa/levodopa and had initial improvement of his mobility; however, his mobility worsened earlier in 2024. His dose of carbidopa/levodopa was increased to 2 tablets 4 times daily. No subsequent further change in his gait has been noted and he does not wish to make any medication change at this time. He has received physical therapy and occupational therapy earlier in 2024. He currently lives alone with the assistance of home health care and family support. He also meets with palliative care monthly. He has had nighttime restlessness of the legs since 2023. He feels the need to move his legs at night and his leg discomfort diminishes when he arises to walk. Ropinirole mg nightly was initiated earlier in 2024 and has been of benefit for his leg restlessness. Patient states that he feels well rested and sleeps approximately 9 to 10 hours per night. A right carotid bruit was noted on his last exam; no carotid bruits noted on exam today. His carotid ultrasound in March 2025 revealed less than 50% stenosisof the internal carotid arteries bilaterally; vertebral flow was antegrade bilaterally. Physical Exam: Neuro: The patient is awake and alert; he has hypophonic speech; no rigidity is noted in the wrist; no tremors noted; his gait is slow; he ambulates with a cane; he is oriented to day of the week; he is able to subtract 7 from 100 Neck: No bruits Heart: Regular rate and rhythm; a murmur is auscultated On prior exam a right carotid bruit was auscultated Supplemental Info EKG (05/05/2020): Sinus rhythm; right bundle branch block and left anterior fascicular block. Heart rate [address] (05/05/2020): Impression: No acute or posttraumatic intracranial abnormality. Right parietal extracraniallaceration. Cerebral atrophy. Liver profile, lipid profile (02/25/2021): HDL 34 (low), VLDL 20 (normal), LDL 39 (normal), cholesterol 93 (normal), triglycerides 99 (normal) Cardiac echo (03/12/2021): The study was technically difficult. Segmental dysfunction with preserved ejection fraction (see wall motion). The estimated ejection fraction is 55 %. The left atrium is mildly enlarged. There is moderate to severe mitral annular calcification. Mild focal mitral valve calcification of the anterior leaflet. Trivial mitral valve insufficiency. Mild tricuspid valve insufficiency. Mild (1+) aortic valve insufficiency. Right ventricular systolic pressure estimated to be 34 mmHg. Transmitral diastolic flow velocities suggest diastolic dysfunction (pseudonormal pattern). Head MRI without contrast (03/07/2022): IMPRESSION: 1. No MRI evidence of acute or subacute ischemic infarct or acute intracranial abnormality. 2. 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 These images were reviewed on 11/26/2022. Moderate diffuse age-related cerebral atrophy is noted. A small old right frontal cortical infarct is noted. Mild tomoderate bilateral subcortical small vessel ischemic disease is noted. Mild bilateral periventricular chronic small vessel ischemic disease is noted. CBC, CMP, thiamine, B12, folate, TSH, serum free light chains (12/08/2022): Hemoglobin 11.3 (low), hematocrit 35.2 (low), BUN 37 (high), creatinine 2.81 (high), EGFR 23 (low), glucose 165 (high), free kappa light chains 72.1 (high), free lambda light chains 38.1 (high), free kappa/lambda ratio 1.89 (high) Head MRI (12/14/2022): FINDINGS: Diffuse, nonspecific parenchymal volume loss may be age-related. Normal white matter tracts of the supratentorial brain. There is no evidence for recent intracranial ischemia or other cause of cytotoxic edema on diffusion weighted imaging (DWI). Normal T2* images of the brain without demonstrated susceptibility artifact. There is no demonstrated hemosiderin stain. No evidence of iron depositions. 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 Normal bilateral basal ganglia. Normal thalami. There is no extra-axial fluid accumulation. Normal flow voids within the major intracranial circulation suggesting patency by spin echo criteria. Normal sella turcica, pituitary gland, infundibular stalk, optic chiasm and hypothalamus. Normal tectal plate and pineal gland. Normal midbrain, david and medulla. Normal cerebellum. Normal basal cisterns. Paranasal sinuses are normally aerated. Mucous retention cysts in the left sphenoid sinus. Mastoid air cells and middle ears are normally aerated with note of trace fluid and some of the left mastoid air cells, similar to prior comparison exam. Normal calvarium and skull base. Normal visualized upper cervical spine. 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 Nonspecific diffuse parenchymal atrophy may be age-related. These images were reviewed on 04/01/2023. Mild bilateral cerebral convexity subdural subdural hygromas versus prominent CSF space secondary to parenchymal volume atrophy. Mild bilateral posterior fossa subdural hygromas versus cerebellar volume loss. Mild bilateral periventricular and subcortical white matter chronic small vessel ischemic disease is noted. An old right frontal cortical infarct is noted. Serum protein electrophoresis, serum immunofixation and urine immunofixation (04/01/2023): Normal. Lipid profile, liver profile (03/01/2024): HDL 33 (low), LDL 28 (normal), cholesterol 82 (normal), triglycerides 105 (normal) Lipid profile, liver profile (02/08/2025): Triglycerides 89 (normal), [id number] (normal), LDL 25 (normal), HDL 38 (low) Cardiac echo (03/28/2025): Normal LV size. Moderate concentric left ventricular hypertrophy. Left ventricular systolic function is normal. The left ventricular ejection fraction is 65 %. Mild focal aortic valve calcification. Mean aortic valve gradient 14 mmHg. Magnesium (04/10/2025): Normal Carotid ultrasound (04/10/2025): Interpretation Summary Mild (<50%) stenosis right extracranial internal carotid. Mild (<50%) stenosis left extracranial internal carotid. Patent and antegrade vertebrals bilaterally. BMP (04/26/2025): Bicarb 20.7 (low), BUN 26 (high), creatinine 1.85 (high), eGFR 35 (low), glucose 174 (high) Assessment and Plan Assessment and Plan (1) Parkinsonism: Status: Chronic Qualifiers: Parkinsonism type: unspecified Qualified Code(s): G20 - Parkinson's disease (2) Mild cognitive impairment: Status: Chronic (3) Polyneuropathy: Status: Inactive (4) Restless legs syndrome: Status: Acute Medications: Refilled carbidopa-levodopa 25-100 mg 2 tabs PO .QID 240 tabs 6RF ropinirole 1 mg PO QHS 30 tabs 6RF Plan Details Additional Comments: The patient has mild to moderate parkinsonism. Over recent years, he has developed slowing and shuffling of his gait. He had had an intermittent restingtremor affecting both hands. He had had hypophonia and had some dysphagia. On initial examination, he exhibited mild cogwheel rigidity in the wrists. Since increasing his dose of carbidopa/levodopa 25/100 to 2 tablets 3 times daily his tremor has subsided and his gait has improved modestly. On exam in March 2025 heexhibited cogwheel rigidity in the wrists and a very mild bilateral hand tremor when arms were extended; he had reported having worsened posture and increased gait instability since earlier in 2024. His dose of carbidopa/levodopa 25/100 was increased to 2 tablets 4 times daily. The patient reported having no changein his symptoms however on exam today no rigidity is noted in the wrists and no tremor is noted. His gait is slow and he ambulates with a cane. He does not wish to make any further medication change at this time. On prior exam the patient has exhibited vertical nystagmus on upgaze. This finding raises the possibility for an as yet unidentified (possibly degenerative) central process that may be contributing to his gait disorder. His parkinsonian features may not be due to solely to an isolated degenerative process involving the nigral striatal system but may represent a more diffuse cerebral process causing extrapyramidal dysfunction. His head MRI from November 2022 reveals mild bilateral cerebral convexity subdural subdural hygromas versus prominent CSF space secondary to parenchymal volume atrophy. Mild bilateral posterior fossa subdural hygromas versus cerebellar volume loss are noted. Mild bilateral periventricular and subcortical white matter chronic small vessel ischemic disease is noted. An oldright frontal cortical infarct is noted. He does not have any clear history of symptomatic stroke. He has a history of myocardial infarction and CABG (2018). He takes aspirin 81 mg daily and atorvastatin 40 mg daily. He has not had physical therapy and occupational therapy earlier in 2024. - Carbidopa/levodopa 25/100 2 tablets 4 times daily will be continued. The patient does not wish to make any medication change at this time. - He receives home health care services. Cognitive deficits are noted on prior mini-mental status exam however, he hasremained fairly independent cognitively at home and no further worsening of his memory has been noted within recent months. I suspect that he has mild cognitive impairment (MCI). - His course will be followed. He has nighttime restless leg syndrome. Ropinirole was initiated in November 2024 and has been of benefit. - I will have him continue ropinirole 1 mg nightly. On exam in March 2025 he exhibited a right carotid bruit versus transmitted heart sound. A carotid ultrasound performed later in March 2025 revealed less than 50% stenosis of the internal carotid arteries bilaterally; vertebral flow was antegrade bilaterally. No carotid bruits noted on exam today. His cardiac echo reveals mild elevation of his aortic valve gradient suggesting mild aortic stenosis. He exhibited some sensory loss in the feet suggesting the presence of a polyneuropathy. This may be due to his diabetes mellitus. He suspected polyneuropathy may be contributing to his gait disorder. His serum free light chains was abnormal. A subsequent serum protein electrophoresis, serum immunofixation and urine immunofixation were unremarkable. A prior B12 injection was of benefit for his fatigue. At his office visit inApril 2023, he was not experiencing fatigue and did not want to receive further B12 injections. His vitamin D level was in the insufficiency range. He has subsequently initiated a vitamin D supplement. I will have him return for reassessment in 5 months. 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 Accompanied by: Daughter Allergies No Known Allergies Allergy (Verified 06/11/25 13:54) Antibiotics Adverse Reaction (Severe, Uncoded 06/11/25 13:54) C-diff Have you fallen in the past year?: Yes 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 Essential hypertension Atherosclerotic heart disease of [place] coronary artery without angina pectoris Postoperative atrial fibrillation Ischemic cardiomyopathy Paroxysmal atrial fibrillation VRE (vancomycin resistant enterococcus) culture positive Gastroparesis Gastric distention NG tube kinked Gastric outlet obstruction Encounter for nasogastric (NG) tube placement GERD (gastroesophageal reflux disease) Acute kidney injury Atrial fibrillation BPH (benign prostatic hyperplasia) Hyperlipidemia Diabetes mellitus type 2 in obese Left ventricular dysfunction Coronary artery disease NSTEMI (non-ST elevated myocardial infarction) Chest pain Surgical History H/O left wrist surgery History of coronary artery bypass surgery (~05/13/18) History of cataract surgery History of knee replacement, total Family History Father Myocardial infarction Social History Smoking Status: Former smoker Tobacco: How many years used: 8 second hand exposure: No alcohol intake: current details: rarely substance use type: does not use arelis/rastafarian: [place] seatbelt use: always Clinical Quality Measures Falls Risk Screening/Assistive Devices Have you fallen in the past year?: Yes Coding Level of Care Code Off vis,est,level 4 Diagnoses Parkinsonism, unspecified Parkinsonism type G20 Parkinsonism type: unspecified Mild cognitive impairment G31.84 Polyneuropathy G62.9 Restless legs syndrome G25.81 06/13/25 1511 <Electronically signed by Braxotn light MD> Date _ Braxton Doss MD Cosigner Signature: Date (if applicable) CC: ~ [facility] Work Phone: 1(880) 361-525508-08-2025 Radiology Diagnostic study note [facility] Services [address] [place] [address] [id number] Kidney and Bladder MR#: [id number] Acct: [id number] Name: EKATERINA RANDHAWA Rep #: [id number] : 1940 M 85 From: Joesph Leon MD PCP: Dr. Jluis Nichole DO Status: REG CLI Study:Kidney and Bladder Date of Exam: 0 04/26/25 Exam# [id number] Ordering Dr: Seth Bass DO PROCEDURE: KIDNEY AND BLADDER 04/26/2025 REASON FOR EXAM: HYPERKALEMIA TECHNIQUE: KIDNEY AND BLADDER COMPARISON: None FINDINGS: Kidneys: Normal renal sizes, parenchymal thicknesses, and echotextures. [place]: No evidence of hydronephrosis. Cysts or Masses: No cysts or large solid renal masses. Other: None RIGHT Kidney Size: 9.9 cm x 5.4 cm x 4.5 cm Volume: 127.5 mL Cortical Thickness (if discernible): 12 mm (>6mm is normal) LEFT Kidney Size: 10.9 cm x 4.2 cm x 5 cm Volume: 119.5 mL Cortical Thickness (if discernible): 12 mm (>6mm is normal) US/Kidney and Bladder IMPRESSION: NORMAL RENAL ULTRASOUND. Reading Location: [id number] CC: Dr. Porsha Bass DO; Dr. Jluis Nichole DO ~ Nut Threader: Signed [facility]07-09-2025 Evaluation note* Diagnosis Onset Date Resolution Status Admit Date Restless legs syndrome acute Ju 2024 9:39am Mild cognitive impairment chronic March 28, 2025 9:39am Parkinsonism chronic March 28 9:39am Polyneuropathy inactive March 28, 2025 9:39am Restless legs syndrome acute Se pt2024 1:49pm Mild cognitive impairment chronic June 11, 2025 1:49pm Parkinsonism chronic June 112024 1:49pm Polyneuropathy inactive June 11, 2025 1:49pm [facility] Work Phone: [phone]) 137-568206-05-2025 Hospital Discharge instructions Patient Education 02/22/2025 18:52:22 Anemia Anemia Anemia is a condition that occurs when your body does not have enough healthy red blood cells (RBCs). RBCs are the parts of your blood that carry oxygen throughout your body. A protein called hemoglobin allows your RBCs to absorb and release oxygen. Without enough RBCs or hemoglobin, your body doesn't get enough oxygen. Symptoms of anemia may then occur. What are the symptoms of anemia? Some people with anemia have no symptoms. But most people have symptoms that range from mild to severe. These can include: Tiredness (fatigue) Weakness Pale skin Shortness of breath Dizziness or fainting Rapid heartbeat Trouble doing normal amounts of activity Jaundice (yellowing of your eyes, skin, or mouth; dark urine) What causes anemia? Anemia can occur when your body: Loses too much blood Does not make enough RBCs Destroys your RBCs at a faster rate than it can replace them Does not make a normal amount of hemoglobin in your RBCs These problems can occur for many reasons, including: A condition that you are born with (congenital or inherited), such as sickle cell disease or thalassemia Heavy bleeding for any reason, including injury, surgery, childbirth, or even heavy menstrual periods Being low in certain nutrients, such as iron, folate, or vitamin B12, possibly from a poor diet or a condition like celiac disease or Crohn's disease Certain chronic conditions like diabetes, arthritis, or kidney disease Certain chronic infections like tuberculosis or HIV Exposure to certain medicines, such as those used for chemotherapy There are different types of anemia. Your healthcare provider can tell you more about the type of anemia you have and what may have caused it. How is anemia diagnosed? To diagnose anemia, your healthcare provider orders blood tests. These can include: Complete blood cell count (CBC). This test measures the amounts of the different types of blood cells. Blood smear. This test checks the size and shape of your blood cells. To do the test, a drop of your blood is viewed under a microscope. A stain is used to make the blood cells easier to see. Iron studies. These tests measure the amount of iron in your blood. Your body needs iron to make hemoglobin in your RBCs. Vitamin B12 and folate studies. These tests check for some of the components that help give RBCs a normal size and shape. Reticulocyte count. This test measures the amount of new RBCs that your bone marrow makes. Hemoglobin electrophoresis. This test checks for problems with your hemoglobin in RBCs. How is anemia treated? Treatment for anemia is based on the type of anemia, its cause, and the severity of your symptoms. Treatments may include: Diet changes. This involves increasing the amount of certain nutrients in your diet, such as iron, vitamin B12, or folate. Your healthcare provider may also prescribe nutrient supplements. Medicines. Certain medicines treat the cause of your anemia. Others help build new RBCs or relieve symptoms. If a medicine is the cause of your anemia, you may need to stop or change it. Blood transfusions. Replacing some of your blood can increase the number of healthy RBCs in your body. Surgery. In some cases, your doctor may do surgery to treat the underlying cause of anemia. If you need surgery, your healthcare provider will explain the procedure and outline the risks and benefitsfor you. What are the long-term concerns? If you have a certain type of anemia, you can expect a full recovery after treatment. If you have other types of anemia (especially a type you're born with), you will need to manage it for life. Yourdoctor can tell you more. [id number] [employer]. [address] [place] [address], [place] [address]. All rights reserved. This information is not intended as a substitute for professional medical care. Always follow yourst. [facility]les hospitalcare professional's instructions. 02/22/2025 18:52:13 Renal Insufficiency Renal Insufficiency Your kidneys remove waste products and extra water from your body. When your kidneys don t work as they should, waste products build up in your blood. The early stage of this process is called renal insufficiency. If renal insufficiency gets worse, you can develop chronic renal failure. This allows extra water, waste, and toxic substances to build up in your body. This can become life threatening. You may need dialysis or a kidney transplant. The most serious form of renal insufficiency is end-stage renal disease. Diabetes is the main cause of renal insufficiency. Other causes include: High blood pressure Hardening of the arteries Lupus Inflammation of the blood vessels (vasculitis) Viral or bacterial infection Some qylh-hiy-hrorven (OTC) pain medicines can cause renal failure if you take them for a long time. These include aspirin, ibuprofen, naproxen, and other nonsteroidal anti-inflammatory drugs (NSAIDs). Home care Follow these tips when caring for yourself at home: If you have diabetes, talk with your healthcare provider about controlling your blood sugar. Ask ifyou need to make any changes to your diet, lifestyle, or medicines. If you have high blood pressure: oTake your prescribed medicine. Your goal is to lower your blood pressure to less than 130/80, or as recommended by your provider. oStart a regular exercise program that you enjoy. Check with your healthcare provider to be sure your planned exercise program is right for you. oCut back on the amount of salt (sodium) you eat. Your healthcare provider can tell you how much salt each day is safe for you. If you are overweight, talk with your healthcare provider about a weight loss plan. If you smoke, quit. Smoking makes kidney disease worse. Talk with your healthcare provider about ways to help you quit. For more information, visit: osmokefree.gov/sites/default/files/pdf/dchgjjfv-buw-bai-accessible.pdf owww.smokefree.gov owww.cancer.org/healthy/stayawayfromtobacco/guidetoquittingsmoking/ Talk with your healthcare provider about any restrictions you should make in your diet. In general,you should limit the amount of protein, salt, potassium, and phosphorus. Don t drink too many fluids. Don t add salt at the table, and stay away from salty foods. You may need a calcium supplement tohelp prevent osteoporosis. Talk with your healthcare provider about any medicines you are taking to find out if they need to be reduced or stopped. Don t take the following OTC medicines, or talk with your healthcare provider before you take them: oAspirin, ibuprofen, naproxen, and other NSAIDs. You may be able to use these for a short time to help with fever or pain. oLaxatives and antacids with magnesium or aluminum oPhospho soda enemas with phosphorus oCertain stomach acid-blocking medicine such as cimetidine or ranitidine oDecongestants with pseudoephedrine oHerbal supplements Follow-up care Follow up with your healthcare provider, or as advised. Contact one of the following for more information: [place] Patients, www.aakp.org National Kidney Foundation, www.kidney.org [employer], www.kidneyfund.org National Kidney Disease Education Program, www.nkdep.nih.gov Call 911 Call 911 if any of the following occur: Severe weakness, dizziness, fainting, drowsiness, or confusion Chest pain or shortness of breath Heart beating fast, slowly, or irregularly When to seek medical advice Call your healthcare provider right away if any of these occur: Nausea or vomiting Fever of 100.4 F (38 C) or higher, or as directed by your healthcare provider Unexpected weight gain or swelling in the legs, ankles, or around your eyes You don t urinate as much as normal, or you aren t able to urinate [id number] [employer]. [address] [place] [address], [place] [address]. All rights reserved. This information is not intended as a substitute for professional medical care. Always follow yourhealthcare professional's instructions. 02/22/2025 18:51:29 Potassium Potassium Does this test have other names? Serum potassium, serum electrolytes, K What is this test? This is a blood test to measure the amount of potassium in your blood. Potassium is one of several important minerals in your body called electrolytes. Ninety percent of your potassium is inside yourcells, but a small amount circulates in your blood. You normally get potassium from your diet. Yourbody needs a constant level of potassium for normal nerve conduction, muscle contraction, heart func tion, and fluid balance. Your kidneys remove potassium through your urine. Why do I need this test? You may need this test if you are having routine blood test to check your level of electrolytes. You may also need this test if your healthcare provider suspects that your potassium is too high or too low. It's important to have your potassium level checked if you have diabetes, if you have a disease that affects your kidneys, adrenal glands, or digestive system, or if you are on medicines, such as diuretics, steroids, or digitalis. A potassium level that is too high is called hyperkalemia. Symptoms of hyperkalemia include: Irregular heartbeat Nausea Fatigue Tingling or numbness Weakness or paralysis A potassium level that is too low is called hypokalemia. Symptoms of hypokalemia include: Irregular heartbeat Nausea Muscle weakness Cramps Constipation What other tests might I have along with this test? You may have your potassium checked along with other electrolytes, such as sodium. You may also have an electrocardiogram, or ECG, to check your heart rhythm. An irregular heart rhythm is a dangeroussign if caused by an abnormal potassium level. What do my test results mean? Test results may vary depending on your age, gender, health history, the method used for the test, and other things. Your test results may not mean you have a problem. Ask your healthcare provider what your test results mean for you. Potassium is measured in milliequivalents per liter (mEq/L). Normal results are about: 3.5 to 5.2 mEq/L for adults 3.4 to 4.7 mEq/L for children ages 1 to 18 years old Low blood potassium may be caused by: Loss of potassium due to diarrhea, sweating, or vomiting Not getting enough potassium in your diet. This is sometimes seen in alcoholism. Loss of potassium from a severe burn or draining wound Diseases, such as cystic fibrosis, primary aldosteronism, or alcoholism Medicines, such as diuretics or antibiotics Getting IV fluids without enough potassium High blood potassium may be caused by: Kidney disease or kidney failure Trauma, such as white, accidents, or surgery Uncontrolled diabetes Diseases, such as systemic lupus erythematosus, sickle cell, or Richie disease How is this test done? The test is done with a blood sample. A needle is used to draw blood from a vein in your arm or hand. Does this test pose any risks? Having a blood test with a needle carries some risks. These include bleeding, infection, bruising, and feeling lightheaded. When the needle pricks your arm or hand, you may feel a slight sting or pain. Afterward, the site may be sore. What might affect my test results? Several medicines can affect your potassium level. These include penicillin, glucose, diuretics such as furosemide or hydrochlorothiazide, and nonsteroidal anti-inflammatory medicines. Eating a lot of licorice can decrease potassium levels. How do I get ready for this test? You don't need to prepare for this test. Tell your healthcare provider if you are taking any medicine, including cosl-huu-zuibwmu NSAIDs. Be sure your healthcare provider knows about all medicines, herbs, vitamins, and supplements you are taking. This includes medicines that don't need a prescription and any illicit drugs you may use. 8927-6932 [employer]. [address] [place] [address]. All rights reserved. This information is not intended as a substitute for professional medical care. Always follow yourhealthcare professional's instructions. Follow Up Care 02/22/2025 17:19:54 With:Your senior it engineer Address:Unknown When:2-4 days Comments:Schedule appointment as soon as possibleReturn to ED if symptoms worsenCall in the morning for follow-up laboratory studies can return to the ER for any developing symptoms With:JLUIS NICHOLE Address: [address] [facility] [place] [address]- [phone] Business (1) When:2-4 days [facility] 06-05-2025 Emergency department Discharge summary Discharge Instructions Thank you for allowing [facility] to assist you with your healthcare needs. The following is importantdischarge information regarding your hospital visit. What to Do Next Instructions from Your Care Team No qualifying data available. Post Acute Orders No qualifying data available. You Need to Schedule the Following Appointments Follow Up with Your senior it engineer When:Within 2-4 days Additional Information: Schedule appointment as soon as possible Return to ED if symptoms worsen Call in the morning for follow-up laboratory studies can return to the ER for any developing symptoms Follow Up with JLUIS NICHOLE When:Within 2-4 days Where:[address] [place] [address] [place] [address]- [phone] Business (1) Allergies [facility] Medications Please ask your primary doctor or pharmacist before taking any other medication not listed, including over the counter drugs, herbal medications, vitamins and or supplements as they may interact withyour home medications. What How Much When Instructions Last Dose Unchanged aspirin (aspirin 81 mg oral delayed release tablet) 1 tab(s) by mouth Every day Unchanged atorvastatin (atorvastatin 40 mg oral tablet) 1 tab(s) by mouth Daily at bedtime Duration: 100 Days Unchanged carbidopa-levodopa (carbidopa-levodopa 25 mg-100 mg oral tablet) 1 tab(s) by mouth Three (3) times a day Unchanged cholecalciferol (cholecalciferol 125 mcg (5000 intl units) oral tablet) 1 tab(s) by mouth Every other day with food Unchanged cyanocobalamin (Vitamin B12 500 mcg oral tablet) 1 tab(s) by mouth Once a day Duration: 90 Days Unchanged doxazosin (doxazosin 4 mg oral tablet) TAKE 1 TABLET BY MOUTH EVERYDAY AT BEDTIME Unchanged lisinopril (lisinopril 10 mg oral tablet) 1 tab(s) by mouth Once a day Unchanged magnesium oxide by mouth Unchanged melatonin (Melatonin 3 mg oral tablet) 2 tab(s) by mouth Daily at bedtime as needed for for insomnia Unchanged metoprolol (Metoprolol Succinate ER 100 mg oral TABLET extended release) 1 tab(s) by mouth Two (2) times a day Duration: 100 Days do not crush or chew Unchanged pantoprazole (pantoprazole 40 mg oral enteric coated tablet) 1 tab(s) by mouth Once a day before a meal Duration: 90 Days Unchanged sertraline (sertraline 50 mg oral tablet) 1 tab(s) by mouth Once a day Unchanged sodium zirconium cyclosilicate (Lokelma 10 g oral powder for reconstitution) 1 Packet(s) by mouth Once a day do not take within 2 hours of other medications Please take this list to your next doctor s visit. Bring all medications you take, including over the counter medications, herbals and other supplements with you to your doctor s visit. Patients and families are reminded to discard old lists and to update any records with all medication providers or retail pharmacies. Education [employer] Anemia Anemia is a condition that occurs when your body does not have enough healthy red blood cells (RBCs). RBCs are the parts of your blood that carry oxygen throughout your body. A protein called hemoglobin allows your RBCs to absorb and release oxygen. Without enough RBCs or hemoglobin, your body doesn't get enough oxygen. Symptoms of anemia may then occur. What are the symptoms of anemia? Some people with anemia have no symptoms. But most people have symptoms that range from mild to severe. These can include: Tiredness (fatigue) Weakness Pale skin Shortness of breath Dizziness or fainting Rapid heartbeat Trouble doing normal amounts of activity Jaundice (yellowing of your eyes, skin, or mouth; dark urine) What causes anemia? Anemia can occur when your body: Loses too much blood Does not make enough RBCs Destroys your RBCs at a faster rate than it can replace them Does not make a normal amount of hemoglobin in your RBCs These problems can occur for many reasons, including: A condition that you are born with (congenital or inherited), such as sickle cell disease or thalassemia Heavy bleeding for any reason, including injury, surgery, childbirth, or even heavy menstrual periods Being low in certain nutrients, such as iron, folate, or vitamin B12, possibly from a poor diet or a condition like celiac disease or Crohn's disease Certain chronic conditions like diabetes, arthritis, or kidney disease Certain chronic infections like tuberculosis or HIV Exposure to certain medicines, such as those used for chemotherapy There are different types of anemia. Your healthcare provider can tell you more about the type of anemia you have and what may have caused it. How is anemia diagnosed? To diagnose anemia, your healthcare provider orders blood tests. These can include: Complete blood cell count (CBC). This test measures the amounts of the different types of blood cells. Blood smear. This test checks the size and shape of your blood cells. To do the test, a drop of your blood is viewed under a microscope. A stain is used to make the blood cells easier to see. Iron studies. These tests measure the amount of iron in your blood. Your body needs iron to make hemoglobin in your RBCs. Vitamin B12 and folate studies. These tests check for some of the components that help give RBCs a normal size and shape. Reticulocyte count. This test measures the amount of new RBCs that your bone marrow makes. Hemoglobin electrophoresis. This test checks for problems with your hemoglobin in RBCs. How is anemia treated? Treatment for anemia is based on the type of anemia, its cause, and the severity of your symptoms. Treatments may include: Diet changes. This involves increasing the amount of certain nutrients in your diet, such as iron, vitamin B12, or folate. Your healthcare provider may also prescribe nutrient supplements. Medicines. Certain medicines treat the cause of your anemia. Others help build new RBCs or relieve symptoms. If a medicine is the cause of your anemia, you may need to stop or change it. Blood transfusions. Replacing some of your blood can increase the number of healthy RBCs in your body. Surgery. In some cases, your doctor may do surgery to treat the underlying cause of anemia. If you need surgery, your healthcare provider will explain the procedure and outline the risks and benefitsfor you. What are the long-term concerns? If you have a certain type of anemia, you can expect a full recovery after treatment. If you have other types of anemia (especially a type you're born with), you will need to manage it for life. Yourdoctor can tell you more. [id number] [employer]. [address] [place] [address]. All rights reserved. This information is not intended as a substitute for professional medical care. Always follow yourhealthcare professional's instructions. Renal Insufficiency Your kidneys remove waste products and extra water from your body. When your kidneys don t work as they should, waste products build up in your blood. The early stage of this process is called renal insufficiency. If renal insufficiency gets worse, you can develop chronic renal failure. This allows extra water, waste, and toxic substances to build up in your body. This can become life threatening. You may need dialysis or a kidney transplant. The most serious form of renal insufficiency is end-stage renal disease. Diabetes is the main cause of renal insufficiency. Other causes include: High blood pressure Hardening of the arteries Lupus Inflammation of the blood vessels (vasculitis) Viral or bacterial infection Some afqq-bcs-zmftyfb (OTC) pain medicines can cause renal failure if you take them for a long time. These include aspirin, ibuprofen, naproxen, and other nonsteroidal anti-inflammatory drugs (NSAIDs). Home care Follow these tips when caring for yourself at home: If you have diabetes, talk with your healthcare provider about controlling your blood sugar. Ask ifyou need to make any changes to your diet, lifestyle, or medicines. If you have high blood pressure: oTake your prescribed medicine. Your goal is to lower your blood pressure to less than 130/80, or as recommended by your provider. oStart a regular exercise program that you enjoy. Check with your healthcare provider to be sure your planned exercise program is right for you. oCut back on the amount of salt (sodium) you eat. Your healthcare provider can tell you how much salt each day is safe for you. If you are overweight, talk with your healthcare provider about a weight loss plan. If you smoke, quit. Smoking makes kidney disease worse. Talk with your healthcare provider about ways to help you quit. For more information, visit: Videodeclasse.[employer].gov/sites/default/files/pdf/yhvphiax-kdr-xch-accessible.pdf owww.smokefree.gov owww.cancer.org/healthy/stayawayfromtobacco/guidetoquittingsmoking/ Talk with your healthcare provider about any restrictions you should make in your diet. In general,you should limit the amount of protein, salt, potassium, and phosphorus. Don t drink too many fluids. Don t add salt at the table, and stay away from salty foods. You may need a calcium supplement tohelp prevent osteoporosis. Talk with your healthcare provider about any medicines you are taking to find out if they need to be reduced or stopped. Don t take the following OTC medicines, or talk with your healthcare provider before you take them: oAspirin, ibuprofen, naproxen, and other NSAIDs. You may be able to use these for a short time to help with fever or pain. oLaxatives and antacids with magnesium or aluminum oPhospho soda enemas with phosphorus oCertain stomach acid-blocking medicine such as cimetidine or ranitidine oDecongestants with pseudoephedrine oHerbal supplements Follow-up care Follow up with your healthcare provider, or as advised. Contact one of the following for more information: [place] [employer] Kidney Patients, www.aakp.org National Kidney Foundation, www.kidney.org [place] Kid[employer] Fund, www.kidneyfund.org National Kidney Disease Education Program, www.nkdep.nih.gov Call 911 Call 911 if any of the following occur: Severe weakness, dizziness, fainting, drowsiness, or confusion Chest pain or shortness of breath Heart beating fast, slowly, or irregularly When to seek medical advice Call your healthcare provider right away if any of these occur: Nausea or vomiting Fever of 100.4 F (38 C) or higher, or as directed by your healthcare provider Unexpected weight gain or swelling in the legs, ankles, or around your eyes You don t urinate as much as normal, or you aren t able to urinate [id number] [employer]. [address] [place] [address]. All rights reserved. This information is not intended as a substitute for professional medical care. Always follow yourhealthcare professional's instructions. Potassium Does this test have other names? Serum potassium, serum electrolytes, K What is this test? This is a blood test to measure the amount of potassium in your blood. Potassium is one of several important minerals in your body called electrolytes. Ninety percent of your potassium is inside yourcells, but a small amount circulates in your blood. You normally get potassium from your diet. Yourbody needs a constant level of potassium for normal nerve conduction, muscle contraction, heart func tion, and fluid balance. Your kidneys remove potassium through your urine. Why do I need this test? You may need this test if you are having routine blood test to check your level of electrolytes. You may also need this test if your healthcare provider suspects that your potassium is too high or too low. It's important to have your potassium level checked if you have diabetes, if you have a disease that affects your kidneys, adrenal glands, or digestive system, or if you are on medicines, such as diuretics, steroids, or digitalis. A potassium level that is too high is called hyperkalemia. Symptoms of hyperkalemia include: Irregular heartbeat Nausea Fatigue Tingling or numbness Weakness or paralysis A potassium level that is too low is called hypokalemia. Symptoms of hypokalemia include: Irregular heartbeat Nausea Muscle weakness Cramps Constipation What other tests might I have along with this test? You may have your potassium checked along with other electrolytes, such as sodium. You may also have an electrocardiogram, or ECG, to check your heart rhythm. An irregular heart rhythm is a dangeroussign if caused by an abnormal potassium level. What do my test results mean? Test results may vary depending on your age, gender, health history, the method used for the test, and other things. Your test results may not mean you have a problem. Ask your healthcare provider what your test results mean for you. Potassium is measured in milliequivalents per liter (mEq/L). Normal results are about: 3.5 to 5.2 mEq/L for adults 3.4 to 4.7 mEq/L for children ages 1 to 18 years old Low blood potassium may be caused by: Loss of potassium due to diarrhea, sweating, or vomiting Not getting enough potassium in your diet. This is sometimes seen in alcoholism. Loss of potassium from a severe burn or draining wound Diseases, such as cystic fibrosis, primary aldosteronism, or alcoholism Medicines, such as diuretics or antibiotics Getting IV fluids without enough potassium High blood potassium may be caused by: Kidney disease or kidney failure Trauma, such as white, accidents, or surgery Uncontrolled diabetes Diseases, such as systemic lupus erythematosus, sickle cell, or Glades disease How is this test done? The test is done with a blood sample. A needle is used to draw blood from a vein in your arm or hand. Does this test pose any risks? Having a blood test with a needle carries some risks. These include bleeding, infection, bruising, and feeling lightheaded. When the needle pricks your arm or hand, you may feel a slight sting or pain. Afterward, the site may be sore. What might affect my test results? Several medicines can affect your potassium level. These include penicillin, glucose, diuretics such as furosemide or hydrochlorothiazide, and nonsteroidal anti-inflammatory medicines. Eating a lot of licorice can decrease potassium levels. How do I get ready for this test? You don't need to prepare for this test. Tell your healthcare provider if you are taking any medicine, including rcgt-ood-qefvezi NSAIDs. Be sure your healthcare provider knows about all medicines, herbs, vitamins, and supplements you are taking. This includes medicines that don't need a prescription and any illicit drugs you may use. 6099-4214 [employer]. [address] [place] [address], [place] [address]. All rights reserved. This information is not intended as a substitute for professional medical care. Always follow yourhealthcare professional's instructions. Additional Information VACCINATE! IT SAVES LIVES! Members of the community who have not yet received the COVID-19 vaccine and would like to receive it can visit one of [facility] vaccine clinics. There are many vaccine clinic locations within the [facility]. For locations and available times, please visit www.gettheshot.coronavirus.[place].gov/. It is important to note that some COVID mobile vaccine clinics are held outdoors and may be canceled in rainy or stormy conditions. To learn more about pediatric vaccinations (ages 5-11), we invite you to visit the [employer] [facility] webpage. https://www.[employer]Captch[employer].org/pages/7371-Egvdo-Chphcwlvbwn-Pyqepixtvc-Nxxut-Fat stions.htmlTo learn more about the COVID-19 vaccine, we invite you to visit the CDC website for a list of frequently asked questions. https://www.cdc.gov/coronavirus/2019-ncov/vaccines/faq.html [facility] Patient Portal Access Instructions: Stay connected with your healthcare team and access your personal medical information anytime with the [facility] Patient Portal. If you would like a full copy of your medical records please contact the [facility] Medical Records Department Wednesday through Wednesday between 8a.m. and 4:30p.m. Please follow the directions below to access the portal: 1.Access the email account you provided upon registration to the hospital.2.Look for an invitation email from [facility].3.Open the email and access the invitation link: Accept Invitation to [facility]4.Fill in the required liriano to create your account. Sign into [email or web address] with your username and password that you created in the above steps to stay up to date. You can then view a summary of results, a summary of your visits, and the ability to download your summaries to your computer or send the information securely to a physician. Remember that your healthcare information is confidential, so carefully consider who you will allow to register on the [facility] Patient Portal for access to your information. You can also access the [facility] Patient Portal on the [facility] [employer] josee. Simply click on Health Records under [employer] and then click on the [employer] logo. HOW TO SAFELY DISPOSE OF PRESCRIPTION MEDICATIONS Please use one of the following methods to safely dispose of your unused medications. 1.Use a drug disposal kit: the drug disposal pouch allows you to safely discard your old and unuseddrugs. Ask your nurse to give you one when you are discharged.2.Visit a local take-back location: Many local pharmacies and police departments have programs that collect old and unwanted prescriptiondrugs. Call your local pharmacy or go to http://[employer]/[email or web address] to find one close to you.3.Make use of household items: Use cat litter or old coffee grounds to dispose medications if other options arenot available. Mix your drugs with these household products, seal them in an airtight container andthrow it into the garbage. Call [facility]: [phone] to be sure your drugs can be disposed of in this way. Some medicines may require a different approach.4.Never flush your medications down the toilet. IF YOU HAVE BEEN PRESCRIBED AN OPIOIDS FOR PAIN If you have been prescribed an opioid (such as hydrocodone, oxycodone or morphine), it is critical to understand the possible side effects and risks of opioid pain medications. Even when taken as directed, opioids can have several side effects including: Tolerance, meaning you might need to take more of a medication for the same pain relief. Nausea, vomiting and/or constipation. Sleepiness, dizziness, dry mouth, confusion, depression or itching. Physical dependence, meaning you have withdrawal symptoms when a medication is stopped ? this can develop within a few days. KNOW YOUR RESPONSIBILITIES It is important to know exactly how much and how often to take the opioid pain medications you are prescribed. Never take opioids in higher amounts or more often than prescribed. Do not combine opioids with alcohol or other drugs that cause drowsiness, such as benzodiazepines, also known as benzos,including diazepam and alprazolam, muscle relaxants or sleep aids. Never sell or share prescriptionopioids. This is illegal. Store opioids in a secure place and out of reach of others (including children, family, friends and visitors). The last page(s) of this document has been signed and retained as a CHART COPY Signatures Patient Education Materials Anemia Renal Insufficiency Potassium Medication Leaflets My discharge plan and instructions have been reviewed and explained to me and I,EDIS EKATERINA Lety understand my current condition and have read and understand these discharge instructions. I have received a written copy of the plan/instructions. If I have questions, I am aware that I should contact my doctor. 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06-05-2025 Note Discharge Instructions Thank you for allowing [facility] to assist you with your healthcare needs. The following is importantdischarge information regarding your hospital visit. What to Do Next Instructions from Your Care Team No qualifying data available. Post Acute Orders No qualifying data available. You Need to Schedule the Following Appointments Follow Up with Your senior it engineer When:Within 2-4 days Additional Information: Schedule appointment as soon as possible Return to ED if symptoms worsen Call in the morning for follow-up laboratory studies can return to the ER for any developing symptoms Follow Up with JLUIS NICHOLE When:Within 2-4 days Where:0 [facility] [place] [address]- [phone] Business (1) Allergies NKA Medications Please ask your primary doctor or pharmacist before taking any other medication not listed, including over the counter drugs, herbal medications, vitamins and or supplements as they may interact withyour home medications. What How Much When Instructions Last Dose Unchanged aspirin (aspirin 81 mg oral delayed release tablet) 1 tab(s) by mouth Every day Unchanged atorvastatin (atorvastatin 40 mg oral tablet) 1 tab(s) by mouth Daily at bedtime Duration: 100 Days Unchanged carbidopa-levodopa (carbidopa-levodopa 25 mg-100 mg oral tablet) 1 tab(s) by mouth Three (3) times a day Unchanged cholecalciferol (cholecalciferol 125 mcg (5000 intl units) oral tablet) 1 tab(s) by mouth Every other day with food Unchanged cyanocobalamin (Vitamin B12 500 mcg oral tablet) 1 tab(s) by mouth Once a day Duration: 90 Days Unchanged doxazosin (doxazosin 4 mg oral tablet) TAKE 1 TABLET BY MOUTH EVERYDAY AT BEDTIME Unchanged lisinopril (lisinopril 10 mg oral tablet) 1 tab(s) by mouth Once a day Unchanged magnesium oxide by mouth Unchanged melatonin (Melatonin 3 mg oral tablet) 2 tab(s) by mouth Daily at bedtime as needed for for insomnia Unchanged metoprolol (Metoprolol Succinate ER 100 mg oral TABLET extended release) 1 tab(s) by mouth Two (2) times a day Duration: 100 Days do not crush or chew Unchanged pantoprazole (pantoprazole 40 mg oral enteric coated tablet) 1 tab(s) by mouth Once a day before a meal Duration: 90 Days Unchanged sertraline (sertraline 50 mg oral tablet) 1 tab(s) by mouth Once a day Unchanged sodium zirconium cyclosilicate (Lokelma 10 g oral powder for reconstitution) 1 Packet(s) by mouth Once a day do not take within 2 hours of other medications Please take this list to your next doctor s visit. Bring all medications you take, including over the counter medications, herbals and other supplements with you to your doctor s visit. Patients and families are reminded to discard old lists and to update any records with all medication providers or retail pharmacies. Education Materials Anemia Anemia is a condition that occurs when your body does not have enough healthy red blood cells (RBCs). RBCs are the parts of your blood that carry oxygen throughout your body. A protein called hemoglobin allows your RBCs to absorb and release oxygen. Without enough RBCs or hemoglobin, your body doesn't get enough oxygen. Symptoms of anemia may then occur. What are the symptoms of anemia? Some people with anemia have no symptoms. But most people have symptoms that range from mild to severe. These can include: Tiredness (fatigue) Weakness Pale skin Shortness of breath Dizziness or fainting Rapid heartbeat Trouble doing normal amounts of activity Jaundice (yellowing of your eyes, skin, or mouth; dark urine) What causes anemia? Anemia can occur when your body: Loses too much blood Does not make enough RBCs Destroys your RBCs at a faster rate than it can replace them Does not make a normal amount of hemoglobin in your RBCs These problems can occur for many reasons, including: A condition that you are born with (congenital or inherited), such as sickle cell disease or thalassemia Heavy bleeding for any reason, including injury, surgery, childbirth, or even heavy menstrual periods Being low in certain nutrients, such as iron, folate, or vitamin B12, possibly from a poor diet or a condition like celiac disease or Crohn's disease Certain chronic conditions like diabetes, arthritis, or kidney disease Certain chronic infections like tuberculosis or HIV Exposure to certain medicines, such as those used for chemotherapy There are different types of anemia. Your healthcare provider can tell you more about the type of anemia you have and what may have caused it. How is anemia diagnosed? To diagnose anemia, your healthcare provider orders blood tests. These can include: Complete blood cell count (CBC). This test measures the amounts of the different types of blood cells. Blood smear. This test checks the size and shape of your blood cells. To do the test, a drop of your blood is viewed under a microscope. A stain is used to make the blood cells easier to see. Iron studies. These tests measure the amount of iron in your blood. Your body needs iron to make hemoglobin in your RBCs. Vitamin B12 and folate studies. These tests check for some of the components that help give RBCs a normal size and shape. Reticulocyte count. This test measures the amount of new RBCs that your bone marrow makes. Hemoglobin electrophoresis. This test checks for problems with your hemoglobin in RBCs. How is anemia treated? Treatment for anemia is based on the type of anemia, its cause, and the severity of your symptoms. Treatments may include: Diet changes. This involves increasing the amount of certain nutrients in your diet, such as iron, vitamin B12, or folate. Your healthcare provider may also prescribe nutrient supplements. Medicines. Certain medicines treat the cause of your anemia. Others help build new RBCs or relieve symptoms. If a medicine is the cause of your anemia, you may need to stop or change it. Blood transfusions. Replacing some of your blood can increase the number of healthy RBCs in your body. Surgery. In some cases, your doctor may do surgery to treat the underlying cause of anemia. If you need surgery, your healthcare provider will explain the procedure and outline the risks and benefitsfor you. What are the long-term concerns? If you have a certain type of anemia, you can expect a full recovery after treatment. If you have other types of anemia (especially a type you're born with), you will need to manage it for life. Yourdoctor can tell you more. [id number] [employer]. [address] [place] [address], [place] [address]. All rights reserved. This information is not intended as a substitute for professional medical care. Always follow yourhealthcare professional's instructions. Renal Insufficiency Your kidneys remove waste products and extra water from your body. When your kidneys don t work as they should, waste products build up in your blood. The early stage of this process is called renal insufficiency. If renal insufficiency gets worse, you can develop chronic renal failure. This allows extra water, waste, and toxic substances to build up in your body. This can become life threatening. You may need dialysis or a kidney transplant. The most serious form of renal insufficiency is end-stage renal disease. Diabetes is the main cause of renal insufficiency. Other causes include: High blood pressure Hardening of the arteries Lupus Inflammation of the blood vessels (vasculitis) Viral or bacterial infection Some lmdb-guu-nuruxjp (OTC) pain medicines can cause renal failure if you take them for a long time. These include aspirin, ibuprofen, naproxen, and other nonsteroidal anti-inflammatory drugs (NSAIDs). Home care Follow these tips when caring for yourself at home: If you have diabetes, talk with your healthcare provider about controlling your blood sugar. Ask ifyou need to make any changes to your diet, lifestyle, or medicines. If you have high blood pressure: oTake your prescribed medicine. Your goal is to lower your blood pressure to less than 130/80, or as recommended by your provider. oStart a regular exercise program that you enjoy. Check with your healthcare provider to be sure your planned exercise program is right for you. oCut back on the amount of salt (sodium) you eat. Your healthcare provider can tell you how much salt each day is safe for you. If you are overweight, talk with your healthcare provider about a weight loss plan. If you smoke, quit. Smoking makes kidney disease worse. Talk with your healthcare provider about ways to help you quit. For more information, visit: osmokefree.gov/sites/default/files/pdf/mwctbjow-dth-jzy-accessible.pdf owww.smokefree.gov owww.cancer.org/healthy/stayawayfromtobacco/guidetoquittingsmoking/ Talk with your healthcare provider about any restrictions you should make in your diet. In general,you should limit the amount of protein, salt, potassium, and phosphorus. Don t drink too many fluids. Don t add salt at the table, and stay away from salty foods. You may need a calcium supplement tohelp prevent osteoporosis. Talk with your healthcare provider about any medicines you are taking to find out if they need to be reduced or stopped. Don t take the following OTC medicines, or talk with your healthcare provider before you take them: oAspirin, ibuprofen, naproxen, and other NSAIDs. You may be able to use these for a short time to help with fever or pain. oLaxatives and antacids with magnesium or aluminum oPhospho soda enemas with phosphorus oCertain stomach acid-blocking medicine such as cimetidine or ranitidine oDecongestants with pseudoephedrine oHerbal supplements Follow-up care Follow up with your healthcare provider, or as advised. Contact one of the following for more information: [place], www.aakp.org National Kidney Foundation, www.kidney.org [employer], www.kidneyfund.org National Kidney Disease Education Program, www.nkdep.nih.gov Call 911 Call 911 if any of the following occur: Severe weakness, dizziness, fainting, drowsiness, or confusion Chest pain or shortness of breath Heart beating fast, slowly, or irregularly When to seek medical advice Call your healthcare provider right away if any of these occur: Nausea or vomiting Fever of 100.4 F (38 C) or higher, or as directed by your healthcare provider Unexpected weight gain or swelling in the legs, ankles, or around your eyes You don t urinate as much as normal, or you aren t able to urinate [phone] [employer]. [address] [place] [address], [place] [address]. All rights reserved. This information is not intended as a substitute for professional medical care. Always follow yourhealthcare professional's instructions. Potassium Does this test have other names? Serum potassium, serum electrolytes, K What is this test? This is a blood test to measure the amount of potassium in your blood. Potassium is one of several important minerals in your body called electrolytes. Ninety percent of your potassium is inside yourcells, but a small amount circulates in your blood. You normally get potassium from your diet. Yourbody needs a constant level of potassium for normal nerve conduction, muscle contraction, heart func tion, and fluid balance. Your kidneys remove potassium through your urine. Why do I need this test? You may need this test if you are having routine blood test to check your level of electrolytes. You may also need this test if your healthcare provider suspects that your potassium is too high or too low. It's important to have your potassium level checked if you have diabetes, if you have a disease that affects your kidneys, adrenal glands, or digestive system, or if you are on medicines, such as diuretics, steroids, or digitalis. A potassium level that is too high is called hyperkalemia. Symptoms of hyperkalemia include: Irregular heartbeat Nausea Fatigue Tingling or numbness Weakness or paralysis A potassium level that is too low is called hypokalemia. Symptoms of hypokalemia include: Irregular heartbeat Nausea Muscle weakness Cramps Constipation What other tests might I have along with this test? You may have your potassium checked along with other electrolytes, such as sodium. You may also have an electrocardiogram, or ECG, to check your heart rhythm. An irregular heart rhythm is a dangeroussign if caused by an abnormal potassium level. What do my test results mean? Test results may vary depending on your age, gender, health history, the method used for the test, and other things. Your test results may not mean you have a problem. Ask your healthcare provider what your test results mean for you. Potassium is measured in milliequivalents per liter (mEq/L). Normal results are about: 3.5 to 5.2 mEq/L for adults 3.4 to 4.7 mEq/L for children ages 1 to 18 years old Low blood potassium may be caused by: Loss of potassium due to diarrhea, sweating, or vomiting Not getting enough potassium in your diet. This is sometimes seen in alcoholism. Loss of potassium from a severe burn or draining wound Diseases, such as cystic fibrosis, primary aldosteronism, or alcoholism Medicines, such as diuretics or antibiotics Getting IV fluids without enough potassium High blood potassium may be caused by: Kidney disease or kidney failure Trauma, such as white, accidents, or surgery Uncontrolled diabetes Diseases, such as systemic lupus erythematosus, sickle cell, or Glades disease How is this test done? The test is done with a blood sample. A needle is used to draw blood from a vein in your arm or hand. Does this test pose any risks? Having a blood test with a needle carries some risks. These include bleeding, infection, bruising, and feeling lightheaded. When the needle pricks your arm or hand, you may feel a slight sting or pain. Afterward, the site may be sore. What might affect my test results? Several medicines can affect your potassium level. These include penicillin, glucose, diuretics such as furosemide or hydrochlorothiazide, and nonsteroidal anti-inflammatory medicines. Eating a lot of licorice can decrease potassium levels. How do I get ready for this test? You don't need to prepare for this test. Tell your healthcare provider if you are taking any medicine, including ssvq-jqv-pidscxr NSAIDs. Be sure your healthcare provider knows about all medicines, herbs, vitamins, and supplements you are taking. This includes medicines that don't need a prescription and any illicit drugs you may use. [phone] [employer]. [address] [place] [address]. All rights reserved. This information is not intended as a substitute for professional medical care. Always follow yourhealthcare professional's instructions. Additional Information VACCINATE! IT SAVES LIVES! Members of the community who have not yet received the COVID-19 vaccine and would like to receive it can visit one of [facility] vaccine clinics. There are many vaccine clinic locations within the [facility]. For locations and available times, please visit www.gettheshot.coronavirus.[place].gov/. It is important to note that some COVID mobile vaccine clinics are held outdoors and may be canceled in rainy or stormy conditions. To learn more about pediatric vaccinations (ages 5-11), we invite you to visit the [facility] webpage. https://www.[facility].org/pages/9164-Krdii-Yalfkukibbk-Fpulmzicaj-Wfxdd-Ijo stions.htmlTo learn more about the COVID-19 vaccine, we invite you to visit the CDC website for a list of frequently asked questions. https://www.cdc.gov/coronavirus/2019-ncov/vaccines/faq.html [facility] Patient Portal Access Instructions: Stay connected with your healthcare team and access your personal medical information anytime with the [facility] Patient Portal. If you would like a full copy of your medical records please contact the [facility] Medical Records Department Wednesday through Wednesday between 8a.m. and 4:30p.m. Please follow the directions below to access the portal: 1.Access the email account you provided upon registration to the [facility].2.Look for an invitation email from [facility].3.Open the email and access the invitation link: Accept Invitation to [facility].Fill in the required liriano to create your account. Sign into www.[email or web address] with your username and password that you created in the above steps to stay up to date. You can then view a summary of results, a summary of your visits, and the ability to download your summaries to your computer or send the information securely to a physician. Remember that your healthcare information is confidential, so carefully consider who you will allow to register on the [facility] Patient Portal for access to your information. You can also access the [facility] Patient Portal on the [facility] josee. Simply click on Health Records under HealthData and then click on the [employer] logo. HOW TO SAFELY DISPOSE OF PRESCRIPTION MEDICATIONS Please use one of the following methods to safely dispose of your unused medications. 1.Use a drug disposal kit: the drug disposal pouch allows you to safely discard your old and unuseddrugs. Ask your nurse to give you one when you are discharged.2.Visit a local take-back location: Many local pharmacies and police departments have programs that collect old and unwanted prescriptiondrugs. Call your local pharmacy or go to http://bit.[facility]/2E8Eu0v to find one close to you.3.Make use of household items: Use cat litter or old coffee grounds to dispose medications if other options arenot available. Mix your drugs with these household products, seal them in an airtight container andthrow it into the garbage. Call [facility]: [phone] to be sure your drugs can be disposed of in this way. Some medicines may require a different approach.4.Never flush your medications down the toilet. IF YOU HAVE BEEN PRESCRIBED AN OPIOIDS FOR PAIN If you have been prescribed an opioid (such as hydrocodone, oxycodone or morphine), it is critical to understand the possible side effects and risks of opioid pain medications. Even when taken as directed, opioids can have several side effects including: Tolerance, meaning you might need to take more of a medication for the same pain relief. Nausea, vomiting and/or constipation. Sleepiness, dizziness, dry mouth, confusion, depression or itching. Physical dependence, meaning you have withdrawal symptoms when a medication is stopped ? this can develop within a few days. KNOW YOUR RESPONSIBILITIES It is important to know exactly how much and how often to take the opioid pain medications you are prescribed. Never take opioids in higher amounts or more often than prescribed. Do not combine opioids with alcohol or other drugs that cause drowsiness, such as benzodiazepines, also known as benzos,including diazepam and alprazolam, muscle relaxants or sleep aids. Never sell or share prescriptionopioids. This is illegal. Store opioids in a secure place and out of reach of others (including children, family, friends and visitors). The last page(s) of this document has been signed and retained as a CHART COPY Signatures Patient Education Materials Anemia Renal Insufficiency Potassium Medication Leaflets My discharge plan and instructions have been reviewed and explained to me and I,EKATERINA RANDHAWA understand my current condition and have read and understand these discharge instructions. I have received a written copy of the plan/instructions. If I have questions, I am aware that I should contact my doctor. 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06-05-2025 Note* Exam Date Time Procedure Performing Provider Status 02/22/25 5:31 PM EKG [ED [facility]] - CV DAVID LAST MD; [facility] (Verified) ECG Final Report Sinus rhythm RBBB and LAFB SEE DICTATION Electronic Signature: DAVID LAST MD 02/22/2025 17:49:20 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, chronic February 16, 2025 3 :33pm Restless legs syndrome acute Ju ly 2024 9:39am Mild cognitive impairment chronic March 28, 2025 9:39am Parkinsonism chronic March 28 9:39am Polyneuropathy inactive March 28, 2025 9:39am [facility] Work Phone: [phone]) 329-944203-12-2025 Evaluation note* Diagnosis Onset Date Resolution Status Admit Date Restless legs syndrome acute Ma h 2024 9:45am Mild cognitive impairment chronic November 29, 2024 9:45am Parkinsonism chronic November 29, 2024 9:45am Polyneuropathy inactive November 9:45am Cardiac murmur acute February 16, 2025 3:33pm Essential hypertension chronic Ma y 2024 3:33pm Hyperlipidemia chronic February 16, 2025 3:33pm Ischemic cardiomyopathy chronic M ay 2024 3:33pm Paroxysmal atrial fibrillation chron ic February 16, 2025 3:33pm 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, chronic February 16, 2025 3 :33pm Restless legs syndrome acute Ju ly 2024 9:39am Mild cognitive impairment chronic March 28, 2025 9:39am Parkinsonism chronic March 28 9:39am Polyneuropathy inactive March 28, 2025 9:39am [facility] Work Phone: 1(225) 472-862002-27-2025 Evaluation note* Diagnosis Onset Date Resolution Status Admit Date Contusion of right foot acute F ebruary 2024 10:14am Restless legs syndrome acute [facility] 2024 9:45am Mild cognitive impairment chronic November 29, 2024 9:45am Parkinsonism chronic November 29, 2024 9:45am Polyneuropathy inactive November 9:45am [facility] Work Phone: 1(764) 865-623402-27-2025 Evaluation note* Diagnosis Onset Date Resolution Status Admit Date Contusion of right foot acute F ebruary 2024 10:14am Restless legs syndrome acute Ma [facility] 2024 9:45am Mild cognitive impairment chronic November 29, 2024 9:45am Parkinsonism chronic November 29, 2024 9:45am Polyneuropathy inactive November 9:45am Essential hypertension chronic Ma y 2024 3:33pm Hyperlipidemia chronic February 16, 2025 3:33pm Ischemic cardiomyopathy chronic M ay 2024 3:33pm Paroxysmal atrial fibrillation chronic February 16, 2025 3 :33pm 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 Work Phone: 1(336) 101-192112-24-2024 NoteHNO ID: [id number] Author: TONEY GUTIERREZ MD Service: ? Author Type: Physician Type: Progress Notes Filed: 09/12/2024 11:04 Note Text: HISTORY OF PRESENT ILLNESS: Ekaterina Randhawa is a 84 year old male referred for thrombocytopenia, mild anemia. Labs reviewed. Creatinine 2.4, vitamins normal Notes no bleeding, dark stools CLINICAL IMPRESSION: Mild stable thrombocytopenia suspect fatty liver in setting of DM, cholesterol. Mild anemia likely renal , not yet requiring intervention. RECOMMENDATION/PLAN: 1. Back in 4 months with cbc Written and verbal health teaching given to patient, patient verbalizes understanding and agrees with treatment plan. PAST MEDICAL HISTORY Diagnosis Date BPH (benign prostatic hyperplasia) CVA (cerebral vascular accident) (HCC) Diabetes (HCC) GERD (gastroesophageal reflux disease) HTN (hypertension) Hyperlipidemia Parkinson's disease (HCC) PAST SURGICAL HISTORY Procedure Laterality Date ARTHRP KNE CONDYLEANDPLATU MEDIALANDLAT COMPARTMENTS Right 09/20/1994 CABG (5) VENOUS GRAFTS AND ARTERIAL GRAFT(S) LITHROTRIPSY PAST SURGICAL HISTORY OF Left wrist PROSTATE BIOPSY 1997 PROSTATE BIOPSY 2002 TRANSURETHRAL ELEC-SURG PROSTATECTOM FAMILY HISTORY Problem Relation Age of Onset Heart Father Cancer Father Social History Tobacco Use Smoking status: Former Types: Cigars Quit date: 1993 Years since quittin.0 Smokeless tobacco: Never ALLERGIES: ALLERGIES No Known Allergies CURRENT OUTPATIENT MEDICATIONS: carbidopa-levodopa (SINEMET 25-100) 25-100 mg per tablet Take 1 tablet by mouth three times a day. lisinopril (ZESTRIL) 20 mg tablet Take 20 mg by mouth two times a day. atorvastatin (LIPITOR) 40 mg tablet Take 40 mg by mouth daily at bedtime. sodium zirconium cyclosilicate (LOKELMA) 10 gram oral packet Take 10 g by mouth once daily. Mix powder in 45 mL of water, stir and drink immediately. doxazosin (CARDURA) 4 mg tablet Take 4 mg by mouth daily at bedtime. cyanocobalamin, vitamin B-12, (VITAMIN B-12 ORAL) Take 1 tablet by mouth once daily. MAGNESIUM ORAL Take 1 tablet by mouth once daily. acetaminophen (TYLENOL) 325 mg tablet 2 tablets by ORAL/FEEDING TUBE route every 4 hours as needed. metoprolol succinate ER (TOPROL XL) 100 mg Tb24 Take 1 tablet by mouth twice daily. melatonin 3 mg tablet Take 1 tablet by mouth daily at bedtime. (Patient taking differently: Take 6 mg by mouth at bedtime as needed.) aspirin 81 mg chewable tablet Take 1 tablet by mouth once daily. pantoprazole DR (PROTONIX) 40 mg tablet Take 40 mg by mouth once daily. metFORMIN (GLUCOPHAGE) 500 mg tablet Take 2 tablets by mouth twice daily with meals. atorvastatin (LIPITOR) 80 mg tablet Take 1 tablet by mouth daily at bedtime. lisinopril 2.5 mg tablet Take 1 tablet by mouth once daily. therapeutic multivitamin (THERA VITAMIN) tablet Take 1 tablet by mouth once daily. clopidogrel (PLAVIX) 75 mg tablet Take 1 tablet by mouth once daily. finasteride (PROSCAR) 5 mg tablet Take 5 mg by mouth once daily. tamsulosin ER (FLOMAX) 0.4 mg cp24 Take 0.4 mg by mouth. REVIEW OF SYSTEMS: GENERAL: No fever, night sweats, weight loss or malaise. All other reviewed and negative other than HPI. PHYSICAL EXAMINATION: VITAL SIGNS: BP 128/59 Pulse 58 Temp (Src) 97.1 (Temporal) Ht 5' 8 (1.73m) Wt 197 lb (89.4kg) SpO2 96% BMI 29.96 kg/(m2). GENERAL APPEARANCE: Well appearing, in no acute distress, alert and oriented x3, well-hydrated, well nourished. I spent a total of 30 minutes on the date of the service which included preparing to see the patient, [id number] patient care, completing clinical documentation, obtaining and/or reviewing separately obtained history, counseling and educating the patient/family/caregiver, ordering medications, tests, or procedures, independently interpreting results (not separately reported), and communicating results to the patient/family/caregiver. Electronically Signed: Toney Gutierrez MD September 12, 2024 10:42 [facility]12-24-2024 History of Present illness Narrative* Toney Gutierrez MD - 09/12/2024 10:41 AM EST HISTORY OF PRESENT ILLNESS: Ekaterina Randhawa is a 84 year old male referred for thrombocytopenia, mild anemia. Labs reviewed. Creatinine 2.4, vitamins normal Notes no bleeding, dark stools CLINICAL IMPRESSION: Mild stable thrombocytopenia suspect fatty liver in setting of DM, cholesterol. Mild anemia likely renal , not yet requiring intervention. RECOMMENDATION/PLAN: 1. Back in 4 months with cbc Written and verbal health teaching given to patient, patient verbalizes understanding and agrees with treatment plan. PAST MEDICAL HISTORY Diagnosis Date BPH (benign prostatic hyperplasia) CVA (cerebral vascular accident) (HCC) Diabetes (HCC) GERD (gastroesophageal reflux disease) HTN (hypertension) Hyperlipidemia Parkinson's disease (HCC) PAST SURGICAL HISTORY Procedure Laterality Date ARTHRP KNE CONDYLE&PLATU MEDIAL&LAT COMPARTMENTS Right 09/20/1994 CABG (5) VENOUS GRAFTS & ARTERIAL GRAFT(S) LITHROTRIPSY PAST SURGICAL HISTORY OF Left wrist PROSTATE BIOPSY 1997 PROSTATE BIOPSY 2002 TRANSURETHRAL ELEC-SURG PROSTATECTOM FAMILY HISTORY Problem Relation Age of Onset Heart Father Cancer Father Social History Tobacco Use Smoking status: Former Types: Cigars Quit date: 1993 Years since quittin.0 Smokeless tobacco: Never ALLERGIES: ALLERGIES No Known Allergies CURRENT OUTPATIENT MEDICATIONS: carbidopa-levodopa (SINEMET 25-100) 25-100 mg per tablet Take 1 tablet by mouth three times a day. lisinopril (ZESTRIL) 20 mg tablet Take 20 mg by mouth two times a day. atorvastatin (LIPITOR) 40 mg tablet Take 40 mg by mouth daily at bedtime. sodium zirconium cyclosilicate (LOKELMA) 10 gram oral packet Take 10 g by mouth once daily. Mix powder in 45 mL of water, stir and drink immediately. doxazosin (CARDURA) 4 mg tablet Take 4 mg by mouth daily at bedtime. cyanocobalamin, vitamin B-12, (VITAMIN B-12 ORAL) Take 1 tablet by mouth once daily. MAGNESIUM ORAL Take 1 tablet by mouth once daily. acetaminophen (TYLENOL) 325 mg tablet 2 tablets by ORAL/FEEDING TUBE route every 4 hours as needed. metoprolol succinate ER (TOPROL XL) 100 mg Tb24 Take 1 tablet by mouth twice daily. melatonin 3 mg tablet Take 1 tablet by mouth daily at bedtime. (Patient taking differently: Take 6 mg by mouth at bedtime as needed.) aspirin 81 mg chewable tablet Take 1 tablet by mouth once daily. pantoprazole DR (PROTONIX) 40 mg tablet Take 40 mg by mouth once daily. metFORMIN (GLUCOPHAGE) 500 mg tablet Take 2 tablets by mouth twice daily with meals. atorvastatin (LIPITOR) 80 mg tablet Take 1 tablet by mouth daily at bedtime. lisinopril 2.5 mg tablet Take 1 tablet by mouth once daily. therapeutic multivitamin (THERA VITAMIN) tablet Take 1 tablet by mouth once daily. clopidogrel (PLAVIX) 75 mg tablet Take 1 tablet by mouth once daily. finasteride (PROSCAR) 5 mg tablet Take 5 mg by mouth once daily. tamsulosin ER (FLOMAX) 0.4 mg cp24 Take 0.4 mg by mouth. REVIEW OF SYSTEMS: GENERAL: No fever, night sweats, weight loss or malaise. All other reviewed and negative other than HPI. PHYSICAL EXAMINATION: VITAL SIGNS: BP 128/59 Pulse 58 Temp (Src) 97.1 (Temporal) Ht 5' 8 (1.73m) Wt 197 lb (89.4kg) SpO2 96% BMI 29.96 kg/(m^2). GENERAL APPEARANCE: Well appearing, in no acute distress, alert and oriented x3, well-hydrated, well nourished. I spent a total of 30 minutes on the date of the service which included preparing to see the patient, [id number] patient care, completing clinical documentation, obtaining and/or reviewing separately obtained history, counseling and educating the patient/family/caregiver, ordering medications, xenia ts, or procedures, independently interpreting results (not separately reported), and communicating results to the patient/family/caregiver. Electronically Signed: Toney Gutierrez MD September 12, 2024 10:42 AM [facility] Discharge instructions Patient Education 06/14/2024 11:49:32 Skin Avulsion Skin Tear (Skin Avulsion) A skin avulsion is a tearing of the top layer of skin. This commonly happens after a fall or other injury. It also tends to be more common in older people, or those taking blood thinners or steroids for long periods of time. Home care These guidelines will help you care for your wound at home: Keep the wound clean and dry for the first 24 to 48 hours, or as your healthcare provider advises. If there is a dressing or bandage, change it when it gets wet or dirty. Otherwise, leave it on for the first 24 hours, then change it once a day or as often as the doctor says. If stitches or lj were used, check the wound every day. After taking off the dressing, wash the area gently with soap and water. Clean as close to the stitches as you can. Avoid washing or rubbing the stitches directly. After 3 days you can keep the bandages off the wound, unless told otherwise, or there is continued drainage. Allow the wound to be open to the air. Keep a thin layer of antibiotic ointment on the cut. This will keep the wound clean, make it easierto remove the stitches, and reduce scarring. If your wound is oozing, you can put a nonstick dressing over it. Then, reapply the bandage or dressing as you were told. You can shower as usual after the first 24 hours, but don't soak the area in water (no baths or swimming) until the stitches or lj are taken out. If surgical tape was used, keep the area clean and dry. If it becomes wet, blot it dry with a cleantowel. If skin glue was used, don't put any creams, lotions, or antibiotic ointments on it. These can dissolve the glue. Usually the glue will flake off in about 5 to 10 days by itself. Try to resist picking it off before that so the wound doesn't open up. When it gets wet, pat it dry. Here is some information about medicine: You may use yamr-mzb-hjubrkn medicine such as acetaminophen or ibuprofen to control pain, unless another pain medicine was given. If you have chronic liver or kidney disease or ever had a stomach ulcer or gastrointestinal bleeding, talk with your doctor before using these medicines. If you were given antibiotics, take them until they are all used up. It is important to finish the antibiotics even if the wound looks better. This will ensure that the infection has cleared. Follow-up care Follow up with your healthcare provider, or as advised. Watch for any signs of infection, such as increasing redness, swelling, or pus coming out. If this happens, don't wait for your scheduled visit. Instead, see a doctor sooner. Stitches or lj are usually taken out within 5 to 14 days. This varies depending on what part of your body they are on, and the type of wound. The doctor will tell you how long stitches should beleft in. If surgical tape was used, it is usually left on for 7 to 10 days. You can remove surgical tape after that unless you were told otherwise. If you try to remove it, and it is too hard, soaking can help. Surgical tape strips will eventually fall off on their own. If the edges of the cut pull apart, stop removing the tape or strips and follow up with your doctor As mentioned above, skin glue will flake off by itself in 5 to 10 days, so you don't need to pull it off. If any X-rays were done, you will be notified of any changes that may affect your care. When to seek medical advice Call your healthcare provider right away if any of these occur: Increasing pain in the wound Redness, swelling, or pus coming from the wound Fever of 100.4 F (38 C) or higher, or as directed by your healthcare provider Sutures or lj come apart or fall out before your next appointment and the wound edges look as if they will re-open Surgical tape closures fall off before 7 days, and the wound edges look as if they will re-open Bleeding not controlled by direct pressure [employer]. [address] [place] [address]. All rights reserved. This information is not intended as a substitute for professional medical care. Always follow yourhealthcare professional's instructions. 06/14/2024 11:49:04 Wound Check (No Infection) Wound Check, No Infection Your wound is healing as expected. There are no signs of infection. Home care Continue to care for your wound as directed. Cover your wound with a bandage unless your healthcare provider tells you not to. Gently clean your wound with soap and water when you shower. Unless told otherwise, don't swim or take tub baths until your wound has healed. Follow-up care Follow up with your healthcare provider as advised. If you have sutures or lj, return as directed to have them removed. If they are not taken out on time, they may be harder to remove and scarring may be worse. Infection may develop. If surgical tape strips were used, you can remove them yourself if they have not fallen off by 10 days after they were applied. When to seek medical advice Call your healthcare provider right away if any of these occur: Fever of 100.4 F (38 C) or higher, or as directed by your healthcare provider Symptoms of a wound infection, including: oRedness or swelling around the wound oWarmth coming from the wound oNew or worsening pain oRed streaks around the wound oDraining pus [employer]. [address] [place] [address]. All rights reserved. This information is not intended as a substitute for professional medical care. Always follow yourhealthcare professional's instructions. Follow Up Care 06/14/2024 11:11:49 With:Go to emergency room if symptoms worsen Address: When:3-7 days With:JLUIS NICHOLE DO Address: [address], [place] [phone] [phone] When:2-4 days [facility] 09-25-2024 Note Discharge Instructions Thank you for allowing [facility] to assist you with your healthcare needs. The following is importantdischarge information regarding your hospital visit. Diagnosis from Today's Visit Skin tear of left upper extremity What to Do Next Instructions from Your Care Team Please have the wound cleansed at least once daily with an antibacterial soap and water, no need touse any harsh abrasives. Please do not cleanse with hydrogen peroxide or alcohol. Following cleansing of the wound, please place topical antibiotic ointment such as bacitracin over the wound and apply a none stick dressing and Band-Aid. Please monitor the area for any development of bright redness,warmth, color drainage from the area or other systemic symptoms including fevers or chills. If you develop any of these, please follow-up with your doctor more closely or present to the emergency department for more emergent evaluation. No qualifying data available. Post Acute Orders No qualifying data available. You Need to Schedule the Following Appointments Follow Up with Go to emergency room if symptoms worsen When:Within 3-7 days Follow Up with JLUIS NICHOLE DO When:Within 2-4 days Where:[address] [place] [address] [place] [phone] [phone] Allergies NKA Medications Please ask your primary doctor or pharmacist before taking any other medication not listed, including over the counter drugs, herbal medications, vitamins and or supplements as they may interact withyour home medications. What How Much When Why Instructions Last Dose Unchanged aspirin (aspirin 81 mg oral delayed releasetablet) 1 tab(s) by mouth Every day Unchanged atorvastatin (atorvastatin 40 mg oral tablet) 1 tab(s) by mouth Daily at bedtime Duration: 90 Days Unchanged calcitriol (calcitriol 0.5 mcg oral capsule) 1 cap by mouth Every day Unchanged carbidopa-levodopa (carbidopa-levodopa 25 mg-100 mg oral tablet) 1 tab(s) by mouth Three (3) times a day Unchanged DME (DME MISCellaneous) See instructions Cerebrovascular accident (CVA) Life alert or equivalent system Dx: I63.9 Unchanged doxazosin (doxazosin 4 mg oral tablet) TAKE 1 TABLET BY MOUTH EVERYDAY AT BEDTIME Unchanged lisinopril (lisinopril 20 mg oral tablet) 1 tab(s) by mouth Two (2) times a day Unchanged melatonin (Melatonin 3 mg oral tablet) 2 tab(s) by mouth Daily at bedtime as needed for for insomnia Unchanged metoprolol (Metoprolol Succinate ER 100 mg oral TABLET extended release) 1 tab(s) by mouth Two (2) times a day TAKE 1 TABLET BY MOUTH TWICE A DAY DO NOT CRUSH OR CHEW Unchanged pantoprazole (pantoprazole 40 mg oral enteric coated tablet) 1 tab(s) by mouth Once a day before a meal Duration: 90 Days Unchanged sodium zirconium cyclosilicate (Lokelma 10 g oral powder for reconstitution) 1 Packet(s) by mouth Once a day do not take within 2 hours of other medications Please take this list to your next doctor s visit. Bring all medications you take, including over the counter medications, herbals and other supplements with you to your doctor s visit. Patients and families are reminded to discard old lists and to update any records with all medication providers or retail pharmacies. Education Materials Skin Tear (Skin Avulsion) A skin avulsion is a tearing of the top layer of skin. This commonly happens after a fall or other injury. It also tends to be more common in older people, or those taking blood thinners or steroids for long periods of time. Home care These guidelines will help you care for your wound at home: Keep the wound clean and dry for the first 24 to 48 hours, or as your healthcare provider advises. If there is a dressing or bandage, change it when it gets wet or dirty. Otherwise, leave it on for the first 24 hours, then change it once a day or as often as the doctor says. If stitches or lj were used, check the wound every day. After taking off the dressing, wash the area gently with soap and water. Clean as close to the stitches as you can. Avoid washing or rubbing the stitches directly. After 3 days you can keep the bandages off the wound, unless told otherwise, or there is continued drainage. Allow the wound to be open to the air. Keep a thin layer of antibiotic ointment on the cut. This will keep the wound clean, make it easierto remove the stitches, and reduce scarring. If your wound is oozing, you can put a nonstick dressing over it. Then, reapply the bandage or dressing as you were told. You can shower as usual after the first 24 hours, but don't soak the area in water (no baths or swimming) until the stitches or lj are taken out. If surgical tape was used, keep the area clean and dry. If it becomes wet, blot it dry with a cleantowel. If skin glue was used, don't put any creams, lotions, or antibiotic ointments on it. These can dissolve the glue. Usually the glue will flake off in about 5 to 10 days by itself. Try to resist picking it off before that so the wound doesn't open up. When it gets wet, pat it dry. Here is some information about medicine: You may use rjnj-laj-xrsbvut medicine such as acetaminophen or ibuprofen to control pain, unless another pain medicine was given. If you have chronic liver or kidney disease or ever had a stomach ulcer or gastrointestinal bleeding, talk with your doctor before using these medicines. If you were given antibiotics, take them until they are all used up. It is important to finish the antibiotics even if the wound looks better. This will ensure that the infection has cleared. Follow-up care Follow up with your healthcare provider, or as advised. Watch for any signs of infection, such as increasing redness, swelling, or pus coming out. If this happens, don't wait for your scheduled visit. Instead, see a doctor sooner. Stitches or lj are usually taken out within 5 to 14 days. This varies depending on what part of your body they are on, and the type of wound. The doctor will tell you how long stitches should beleft in. If surgical tape was used, it is usually left on for 7 to 10 days. You can remove surgical tape after that unless you were told otherwise. If you try to remove it, and it is too hard, soaking can help. Surgical tape strips will eventually fall off on their own. If the edges of the cut pull apart, stop removing the tape or strips and follow up with your doctor As mentioned above, skin glue will flake off by itself in 5 to 10 days, so you don't need to pull it off. If any X-rays were done, you will be notified of any changes that may affect your care. When to seek medical advice Call your healthcare provider right away if any of these occur: Increasing pain in the wound Redness, swelling, or pus coming from the wound Fever of 100.4 F (38 C) or higher, or as directed by your healthcare provider Sutures or lj come apart or fall out before your next appointment and the wound edges look as if they will re-open Surgical tape closures fall off before 7 days, and the wound edges look as if they will re-open Bleeding not controlled by direct pressure [employer]. [address] [place] [address]. All rights reserved. This information is not intended as a substitute for professional medical care. Always follow yourhealthcare professional's instructions. Wound Check, No Infection Your wound is healing as expected. There are no signs of infection. Home care Continue to care for your wound as directed. Cover your wound with a bandage unless your healthcare provider tells you not to. Gently clean your wound with soap and water when you shower. Unless told otherwise, don't swim or take tub baths until your wound has healed. Follow-up care Follow up with your healthcare provider as advised. If you have sutures or lj, return as directed to have them removed. If they are not taken out on time, they may be harder to remove and scarring may be worse. Infection may develop. If surgical tape strips were used, you can remove them yourself if they have not fallen off by 10 days after they were applied. When to seek medical advice Call your healthcare provider right away if any of these occur: Fever of 100.4 F (38 C) or higher, or as directed by your healthcare provider Symptoms of a wound infection, including: oRedness or swelling around the wound oWarmth coming from the wound oNew or worsening pain oRed streaks around the wound oDraining pus [employer]. [address] [place] [address]. All rights reserved. This information is not intended as a substitute for professional medical care. Always follow yourhealthcare professional's instructions. Additional Information VACCINATE! IT SAVES LIVES! Members of the community who have not yet received the COVID-19 vaccine and would like to receive it can visit one of [facility] vaccine clinics. There are many vaccine clinic locations within the [facility]. For locations and available times, please visit [email or web address] It is important to note that some COVID mobile vaccine clinics are held outdoors and may be canceled in rainy or stormy conditions. To learn more about pediatric vaccinations (ages 5-11), we invite you to visit the [facility] webpage. [email or web address] learn more about the COVID-19 vaccine, we invite you to visit the CDC website for a list of frequently asked questions. https://www.cdc.gov/coronavirus/2019-ncov/vaccines/faq.html [facility] Patient Portal Access Instructions: Stay connected with your healthcare team and access your personal medical information anytime with the [facility] Patient Portal. If you would like a full copy of your medical records please contact the [facility] Medical Records Department Wednesday through Wednesday between 8a.m. and 4:30p.m. Please follow the directions below to access the portal: 1.Access the email account you provided upon registration to the [facility].2.Look for an invitation email from [facility].3.Open the email and access the invitation link: Accept Invitation to [facility]4.Fill in the required liriano to create your account. Sign into [email or web address] with your username and password that you created in the above steps to stay up to date. You can then view a summary of results, a summary of your visits, and the ability to download your summaries to your computer or send the information securely to a physician. Remember that your healthcare information is confidential, so carefully consider who you will allow to register on the [facility] Patient Portal for access to your information. You can also access the [facility] Patient Portal on the Sara Campbell josee. Simply click on Health Records under [place] and then click on the [facility] logo. HOW TO SAFELY DISPOSE OF PRESCRIPTION MEDICATIONS Please use one of the following methods to safely dispose of your unused medications. 1.Use a drug disposal kit: the drug disposal pouch allows you to safely discard your old and unuseddrugs. Ask your nurse to give you one when you are discharged.2.Visit a local take-back location: Many local pharmacies and police departments have programs that collect old and unwanted prescriptiondrugs. Call your local pharmacy or go to http://bit.[facility]/6U5Xm7r to find one close to you.3.Make use of household items: Use cat litter or old coffee grounds to dispose medications if other options arenot available. Mix your drugs with these household products, seal them in an airtight container andthrow it into the garbage. Call [facility]: [phone] to be sure your drugs can be disposed of in this way. Some medicines may require a different approach.4.Never flush your medications down the toilet. IF YOU HAVE BEEN PRESCRIBED AN OPIOIDS FOR PAIN If you have been prescribed an opioid (such as hydrocodone, oxycodone or morphine), it is critical to understand the possible side effects and risks of opioid pain medications. Even when taken as directed, opioids can have several side effects including: Tolerance, meaning you might need to take more of a medication for the same pain relief. Nausea, vomiting and/or constipation. Sleepiness, dizziness, dry mouth, confusion, depression or itching. Physical dependence, meaning you have withdrawal symptoms when a medication is stopped ? this can develop within a few days. KNOW YOUR RESPONSIBILITIES It is important to know exactly how much and how often to take the opioid pain medications you are prescribed. Never take opioids in higher amounts or more often than prescribed. Do not combine opioids with alcohol or other drugs that cause drowsiness, such as benzodiazepines, also known as benzos,including diazepam and alprazolam, muscle relaxants or sleep aids. Never sell or share prescriptionopioids. This is illegal. Store opioids in a secure place and out of reach of others (including children, family, friends and visitors). The last page(s) of this document has been signed and retained as a CHART COPY Signatures Patient Education Materials Skin Avulsion Wound Check (No Infection) Medication Leaflets My discharge plan and instructions have been reviewed and explained to me and I,EKATERINA RANDAHWA understand my current condition and have read and understand these discharge instructions. I have received a written copy of the plan/instructions. If I have questions, I am aware that I should contact my doctor. 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 Work Phone: Evaluation + Plan note Future Appointments Appointment Date:12/15/2021 09:30:00 AM Scheduled Provider:LAYNE DOHERTY DO Location: [facility] Appointment Type:PC OV Future Scheduled Tests Laboratory* Basic Metabolic Panel 05/08/21 * Vancomycin Level Trough - Panel 05/08/21 [facility] Evaluation + Plan note Future Appointments Appointment Date:01/20/2022 10:00:00 AM Scheduled Provider: Location:[facility] Appointment Type:PT Treatment - [place] Appointment Date:01/22/2022 10:00:00 AM Scheduled Provider: Location:[facility] Appointment Type:PT Treatment - [place] Appointment Date:01/27/2022 10:00:00 AM Scheduled Provider: Location:[facility] Appointment Type:PT Treatment - [place] Appointment Date:01/30/2022 10:00:00 AM Scheduled Provider: Location:[facility] Appointment Type:PT Treatment - [place] Appointment Date:06/18/2022 09:00:00 AM Scheduled Provider:LAYNE DOHERTY DO Location:[facility] Appointment Type:PC Wellness Medicare with Labs [facility] Evaluation + Plan note Future Appointments Appointment Date:04/16/2022 07:30:00 AM Scheduled Provider:LAYNE DOHERTY DO Location:[facility] Appointment Type:PC OV Appointment Date:06/18/2022 09:00:00 AM Scheduled Provider:LAYNE DOHERTY DO Location:[facility] [place] Appointment Type:PC Wellness Medicare with Labs [facility] Evaluation + Plan note Future Appointments Appointment Date:06/18/2022 09:00:00 AM Scheduled Provider:LAYNE DOHERTY DO Location:[facility] [place] Appointment Type:PC Wellness Medicare with Labs Appointment Date:08/18/2022 07:30:00 AM Scheduled Provider:LAYNE DOHERTY DO Location:[facility] [place] Appointment Type:PC OV [facility] Evaluation + Plan note Future Appointments Appointment Date:09/21/2022 09:00:00 AM Scheduled Provider:LAYNE DOHERTY DO Location:[facility] [place] Appointment Type:PC OV Appointment Date:10/07/2022 09:00:00 AM Scheduled Provider:JLUIS NICHOLE DO Location:[facility] Appointment Type:PC AROMATHERAPIST [facility] Evaluation + Plan note Future Appointments Appointment Date:11/09/2022 02:00:00 PM Scheduled Provider: Location:[facility] Appointment Type:VL AOH - Venous US/Doppler Both Legs (fo Appointment Date:06/22/2023 09:00:00 AM Scheduled Provider:JLUIS NICHOLE DO Location:[facility] Appointment Type:PC Wellness Medicare Future Scheduled Tests Laboratory* Stool for Occult Blood (Lab) 10/11/22 [facility] Evaluation + Plan note Future Appointments Appointment Date:07/18/2024 09:00:00 AM Scheduled Provider:JLUIS NICHOLE DO Location:[facility] Appointment Type: Wellness Medicare [facility] evaluation + Plan note Future Appointments Appointment Date:06/21/2024 09:00:00 AM Scheduled Provider:MARTIR WEBB Location:[facility] Appointment Type:PC OV ED Follow Up Appointment Date:07/18/2024 09:00:00 AM Scheduled Provider:JLUIS NICHOLE DO Location:[facility] [place] Appointment Type: Wellness Medicare [facility] evaluation + Plan note Future Appointments Appointment Date:08/11/2024 10:00:00 AM Scheduled Provider:JLUIS NICHOLE DO Location:[facility] [place] Appointment Type: Wellness Medicare [facility] evaluation + Plan note Future Appointments Appointment Date:02/08/2025 10:00:00 AM Scheduled Provider:JLUIS NICHOLE DO Location:[facility] [place] Appointment Type:PC OV [facility] evaluation + Plan note Future Appointments Appointment Date:05/23/2025 10:00:00 AM Scheduled Provider:JLUIS NICHOLE DO Location:[facility] [place] Appointment Type:[facility] Future Scheduled Tests Laboratory* Basic Metabolic Panel 02/22/25 * N-Terminal proBNP 02/21/25 [facility] Evaluation + Plan note Future Appointments Appointment Date:07/05/2025 10:00:00 AM Scheduled Provider: Carmen:[facility] Appointment Type:CT Head or Brain w/o Contrast Appointment Date:09/05/2025 02:00:00 PM Scheduled Provider:JLUIS NICHOLE DO Location:[facility] [place] Appointment Type:PC Wellness Medicare Future Scheduled Tests Radiology* CT Head or Brain w/o Contrast 07/05/25 * XR Chest 2 Views (PA & Lateral) 07/04/25 [facility] Evaluation + Plan note Future Appointments Appointment Date:09/05/2025 02:00:00 PM Scheduled Provider:JLUIS NICHOLE DO Location:[facility] Appointment Type:[facility] Medicare Future Scheduled Tests Laboratory* Potassium Level 07/08/25 Radiology* XR Chest 2 Views (PA & Lateral) 07/04/25 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 Hospital Discharge instructions No data available for this section [facility] Progress note No data available for this section [facility] Reason for referral (narrative)No reason for referral [facility] Work Phone: Summary Purpose Family History No Family History Records Found Relationship Condition Age at Onset Recorded Date/T gwyn father Myocardial infarction Unknown Advance Directives No Advanced Directives Records Found Advance Directive Response Recorded Date/ Time Living Will Yes March 22, 2019 1 0:10am Power of Pepper Cutter Yes March 22, 2019 10:10am Advance Directive Response Recorded Date/ Time Living Will Yes March 22, 2019 1 0:10am Do you have a Healthcare Power of Pepper Cutter? Yes March 22, 2019 10:10am Chief Complaint and Reason for Visit Chief Complaint ATAXIA 6 M FU Reason for Visit Atherosclerotic hear t disease of [place] coronary artery without angina pectoris Essential hypertension Hyperlipidemia Ischemic cardiomyopathy Paroxysmal atrial fibrillation Chief Complaint 6 m fu Parkinson's disease EORDER Reason for Visit Atherosclerotic hear t disease of [place] coronary artery without angina pectoris Essential hypertension Hyperlipidemia Ischemic cardiomyopathy Paroxysmal atrial fibrillation Mild cognitive impairment Polyneuropathy Parkinson's disease Chief Complaint 6 m fu Parkinson's disease EORDER [place] Reason for Visit Atherosclerotic hear t disease of [place] coronary artery without angina pectoris Essential hypertension Hyperlipidemia Ischemic cardiomyopathy Paroxysmal atrial fibrillation Mild cognitive impairment Polyneuropathy Parkinson's disease Chief Complaint EORDER PARK[place]SON[place] 6 m fu 4 M FU E ORDER Reason for Visit Essential hypertensi on Hyperlipidemia Ischemic cardiomyopathy Paroxysmal atrial fibrillation S/P coronary artery bypass graft x 5 Mild cognitive impairment Polyneuropathy Parkinson's disease Chief Complaint Admit Date SWOLLEN R ANKLE November 16, 2024 10:14am 9 M FU November 29, 2024 9:4 5am INT LABS February 08, 2025 8:31a m Reason for Visit Admit Date Contusion of right foot November 16, 2 025 10:14am Restless legs syndrome November 29, 2024 9:45am Mild cognitive impairment November 29 9:45am Parkinsonism November 29, 2024 9:4 5am Polyneuropathy November 29, 2024 9:4 5am Chief Complaint Admit Date SWOLLEN R ANKLE November 16, 2024 10:14am 9 M FU November 29, 2024 9:4 5am INT LABS February 08, 2025 8:31a m 1 Y FU/PREV PFM February 16, 2025 3:33p m Reason for Visit Admit Date Contusion of right foot November 16, 2 025 10:14am Restless legs syndrome November 29, 2024 9:45am Mild cognitive impairment November 29 9:45am Parkinsonism November 29, 2024 9:4 5am Polyneuropathy November 29, 2024 9:4 5am Essential hypertension February 16, 2025 3: 33pm Hyperlipidemia February 16, 2025 3:33p m Ischemic cardiomyopathy February 16, 2025 3 :33pm Paroxysmal atrial fibrillation February 16, 2025 3:33pm S/P coronary artery bypass graft x 5 February 16, 2025 3:33pm Chief Complaint Admit Date 9 M FU November 29, 2024 9:4 5am INT LABS February 08, 2025 8:31a m 1 Y FU/PREV PFM February 16, 2025 3:33p m 4 M FU March 28, 2025 9:39a m Reason for Visit Admit Date Restless legs syndrome November 29, 2024 9:45am Mild cognitive impairment November 29 9:45am Parkinsonism November 29, 2024 9:4 5am Polyneuropathy November 29, 2024 9:4 5am Cardiac murmur February 16, 2025 3:33p m Essential hypertension February 16, 2025 3: 33pm Hyperlipidemia February 16, 2025 3:33p m Ischemic cardiomyopathy February 16, 2025 3 :33pm Paroxysmal atrial fibrillation February 16, 2025 3:33pm S/P coronary artery bypass graft x 5 February 16, 2025 3:33pm Restless legs syndrome March 28, 2025 9: 39am Mild cognitive impairment March 28, 2025 9:39am Parkinsonism March 28, 2025 9:39a m Polyneuropathy March 28, 2025 9:39a m Chief Complaint Admit Date INT LABS February 08, 2025 8:31a m 1 Y FU/PREV PFM February 16, 2025 3:33p m 4 M FU March 28, 2025 9:39a m Cardiac murmur, unspecified March 28 12:37pm Reason for Visit Admit Date Cardiac murmur February 16, 2025 3:33p m Essential hypertension February 16, 2025 3: 33pm Hyperlipidemia February 16, 2025 3:33p m Ischemic cardiomyopathy February 16, 2025 3 :33pm Paroxysmal atrial fibrillation February 16, 2025 3:33pm S/P coronary artery bypass graft x 5 February 16, 2025 3:33pm Restless legs syndrome March 28, 2025 9: 39am Mild cognitive impairment March 28, 2025 9:39am Parkinsonism March 28, 2025 9:39a m Polyneuropathy March 28, 2025 9:39a m Chief Complaint Admit Date INT LABS February 08, 2025 8:31a m 1 Y FU/PREV PFM February 16, 2025 3:33p m 4 M FU March 28, 2025 9:39a m Cardiac murmur, unspecified March 28 12:37pm right carotid bruit April 10, 2025 12:0 3pm Chief Complaint Admit Date INT LABS February 08, 2025 8:31a m 1 Y FU/PREV PFM February 16, 2025 3:33p m 4 M FU March 28, 2025 9:39a m Cardiac murmur, unspecified March 28 12:37pm right carotid bruit April 10, 2025 12:0 3pm Hyperkalemia: BMP DUE April 26, 2025 1 0:41am Chief Complaint Admit Date 4 M FU March 28, 2025 9:39a m Cardiac murmur, unspecified March 28 12:37pm right carotid bruit April 10, 2025 12:0 3pm Hyperkalemia: BMP DUE April 26, 2025 1 0:41am 2 M FU June 11, 2025 1:49pm Reason for Visit Admit Date Restless legs syndrome March 28, 2025 9: 39am Mild cognitive impairment March 28, 2025 9:39am Parkinsonism March 28, 2025 9:39a m Polyneuropathy March 28, 2025 9:39a m Restless legs syndrome June 11, 2 025 1:49pm Mild cognitive impairment May 1:49pm 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, 2025 1:49pm Polyneuropathy June 11, 2025 1:49pm Additional Source Comments (unrecognized sect ion and content) No Status Records FoundNo Status Records FoundNo Status Records FoundNo Status Records FoundNo Status Records FoundNo Status Records Found INFORMATION SOURCE (unrecogn ized section and content) DATE CREATED AUTHOR 06/01/2018 [facility] DATE CREATED AUTHOR AUTHOR'S ORGANIZ ATION 02/22/2024 [facility] ([place]) DATE CREATED AUTHOR AUTHOR'S ORGANIZ ATION 06/09/2025 [facility] DATE CREATED AUTHOR AUTHOR'S ORGANIZ ATION 07/16/2025 [facility] DATE CREATED AUTHOR AUTHOR'S ORGANIZ ATION 07/26/2025 [facility] DATE CREATED AUTHOR AUTHOR'S ORGANIZ ATION 07/27/2025 [facility] Care Team (unrecognized sect ion and content) Team Status: Active Member Role Status Dates Dr. Layne Doherty DO Family Provider Active Dr. Layne Doherty DO Primary Care Provider Active Team Status: Inactive Member Role Status Dates Dr. Layne Doherty DO Primary Care Provider, Referrin g Provider Active Maryuri Begum AROMATHERAPIST, AROMATHERAPIST-C Attending Provider Active Team Status: Inactive Member Role Status Dates Dr. Layne Doherty DO Primary Care Provider, Referrin g Provider Active Dr. Braxton Doss MD Attending Provider Active Team Status: Inactive Member Role Status Dates Dr. Layne Doherty DO Primary Care Provider Active Dr. Braxton Doss MD Attending Provider, Referring Provider Active Team Status: Active Member Role Status Dates Dr. Layne Doherty DO Family Provider Active Dr. Jluis Nichole DO Primary Care Provider Active Team Status: Inactive Member Role Status Dates Dr. Braxton Doss MD Attending Provider, Referring Provider Active Dr. Jluis Nichole DO Primary Care Provider Active Team Status: Inactive Member Role Status Dates Dr. Layne Doherty DO Referring Provider Active Maryuri Begum AROMATHERAPIST, AROMATHERAPIST-C Attending Provider Active Dr. Jluis Nichole DO Primary Care Provider Active Team Status: Inactive Member Role Status Dates Dr. Layne Doherty DO Referring Provider Active Dr. Braxton Doss MD Attending Provider Active Dr. Jluis Nichole DO Primary Care Provider Active Team Status: Inactive Member Role Status Dates Dr. Jluis Nichole DO Primary Care Provider Active Dr. 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 Jluis Nichole DO Primary Care Provider Active Start: November 16, 2024 End: November 16, 2024 Dr. Jluis Nichole DO Referring Provider Active St art: November 16, 2024 End: November 16, 2024 DG Varma Attending Provider Active Sta rt: November 16, 2024 End: November 16, 2024 Team Status: Inactive Member Role Status Dates Dr. Jluis Nichole DO Primary Care Provider Active Start: November 29, 2024 End: November 29, 2024 Dr. Jluis Nichole DO Referring Provider Active St art: November 29, 2024 End: November 29, 2024 Dr. Braxton Doss MD Attending Provider Active Start: November 29, 2024 End: November 29, 2024 Team Status: Inactive Member Role Status Dates Dr. Jluis Nichole DO Primary Care Provider Active Start: February 08, 2025 End: February 08, 2025 Maryuri Begum AROMATHERAPIST, AROMATHERAPIST-C Attending Provider Active S tart: February 08, 2025 End: February 08, 2025 Maryuri Begum AROMATHERAPIST, AROMATHERAPIST-C Referring Provider Active S tart: February 08, 2025 End: February 08, 2025 Team Status: Inactive Member Role Status Dates Dr. Jluis Nichole DO Primary Care Provider Active Start: February 16, 2025 End: February 16, 2025 Dr. lJuis Nichole DO Referring Provider Active St art: February 16, 2025 End: February 16, 2025 Bailey CONTE, PA Attending Provider Active Start: February 16, 2025 End: February 16, 2025 Team Status: Active Member Role/Relationship Status Dates Dr. Jluis Nichole DO Primary Care Provider Active Team Status: Inactive Member Role/Relationship Status Dates Dr. Jluis Nichole DO Primary Care Provider Active Start: November 29, 2024 End: November 29, 2024 Dr. Jluis Nichole DO Referring Provider Active St art: November 29, 2024 End: November 29, 2024 Dr. Braxton Doss MD Attending Provider Active Start: November 29, 2024 End: November 29, 2024 Team Status: Inactive Member Role/Relationship Status Dates Dr. Jluis Nichole DO Primary Care Provider Active Start: February 08, 2025 End: February 08, 2025 Maryuri Begum AROMATHERAPIST, AROMATHERAPIST-C Attending Provider Active S tart: February 08, 2025 End: February 08, 2025 Maryuri Begum AROMATHERAPIST, AROMATHERAPIST-C Referring Provider Active S tart: February 08, 2025 End: February 08, 2025 Team Status: Inactive Member Role/Relationship Status Dates Dr. Jluis Nichole DO Primary Care Provider Active Start: February 16, 2025 End: February 16, 2025 Dr. Jluis Nichole DO Referring Provider Active St art: February 16, 2025 End: February 16, 2025 Bailey CONTE, PA Attending Provider Active Start: February 16, 2025 End: February 16, 2025 Team Status: Inactive Member Role/Relationship Status Dates Dr. Jluis Nichole DO Primary Care Provider Active Start: March 28, 2025 End: March 28, 2025 Dr. Jluis Nichole DO Referring Provider Active St art: March 28, 2025 End: March 28, 2025 WON FernándezC Attending Provider Active S tart: March 28, 2025 End: March 28, 2025 Team Status: Inactive Member Role/Relationship Status Dates Dr. Jluis Nichole DO Primary Care Provider Active Start: February 08, 2025 End: February 08, 2025 Maryuri Begum AROMATHERAPIST, AROMATHERAPIST-C Attending Provider Active S tart: February 08, 2025 End: February 08, 2025 Maryuri Begum AROMATHERAPIST, AROMATHERAPIST-C Referring Provider Active S tart: February 08, 2025 End: February 08, 2025 Team Status: Inactive Member Role/Relationship Status Dates Dr. Jluis Nichole DO Primary Care Provider Active Start: February 16, 2025 End: February 16, 2025 Dr. Jluis Nichole DO Referring Provider Active St art: February 16, 2025 End: February 16, 2025 Bailey CONTE, PA Attending Provider Active Start: February 16, 2025 End: February 16, 2025 Team Status: Inactive Member Role/Relationship Status Dates Dr. Jluis Nichole DO Primary Care Provider Active Start: March 28, 2025 End: March 28, 2025 Dr. Jluis Nichole DO Referring Provider Active St art: March 28, 2025 End: March 28, 2025 WON FernándezC Attending Provider Active S tart: March 28, 2025 End: March 28, 2025 Team Status: Inactive Member Role/Relationship Status Dates Dr. Jluis Nichole DO Primary Care Provider Active Start: March 28, 2025 End: March 28, 2025 Bailey Howe PA, PA Attending Provider Active Start: March 28, 2025 End: March 28, 2025 Bailey Howe PA, PA Referring Provider Active Start: March 28, 2025 End: March 28, 2025 Team Status: Active Member Role/Relationship Status Dates Dr. Jluis Nichole DO Primary Care Provider Active Start: March 28, 2025 Dr. Cheng Camarillo MD Attending Provider Active S tart: March 28, 2025 Team Status: Inactive Member Role/Relationship Status Dates Dr. Jluis Nichole DO Primary Care Provider Active Start: April 10, 2025 End: April 10, 2025 OBIE Fernández Attending Provider Active S tart: April 10, 2025 End: April 10, 2025 OBIE Fernández Referring Provider Active S tart: April 10, 2025 End: April 10, 2025 Dr. Porsha Bass DO Other Provider Active Sta rt: April 10, 2025 End: April 10, 2025 Team Status: Active Member Role/Relationship Status Dates Dr. Jluis Nichole DO Primary Care Provider Active Start: April 10, 2025 Dr. Cecilio Siu MD Attending Provider Active S tart: April 10, 2025 Team Status: Inactive Member Role/Relationship Status Dates Dr. Jluis Nichole DO Primary Care Provider Active Start: April 19, 2025 End: April 19, 2025 Dr. Porsha Bass DO Attending Provider Active Start: April 19, 2025 End: April 19, 2025 Team Status: Inactive Member Role/Relationship Status Dates Dr. Jluis Nichole DO Primary Care Provider Active Start: April 26, 2025 End: April 26, 2025 Dr. Porsha Bass DO Attending Provider Active Start: April 26, 2025 End: April 26, 2025 Dr. Porsha Bass DO Referring Provider Active Start: April 26, 2025 End: April 26, 2025 Team Status: Active Member Role/Relationship Status Dates Dr. Jluis Nichole DO Primary care physician Active Team Status: Inactive Member Role/Relationship Status Dates Dr. Jluis Nichole DO Primary care physician Active Start: March 28, 2025 End: March 28, 2025 Dr. Jluis Nichole DO Referring Provider Active St art: March 28, 2025 End: March 28, 2025 OBIE Fernández Attending physician Active Start: March 28, 2025 End: March 28, 2025 Team Status: Inactive Member Role/Relationship Status Dates Dr. Jluis Nichole DO Primary care physician Active Start: March 28, 2025 End: March 28, 2025 Bailey Howe PA, PA Attending physician Active Start: March 28, 2025 End: March 28, 2025 Bailey Howe PA, PA Referring Provider Active Start: March 28, 2025 End: March 28, 2025 Team Status: Active Member Role/Relationship Status Dates Dr. Jluis Nichole DO Primary care physician Active Start: March 28, 2025 Dr. Cheng Camarillo MD Attending physician Active Start: March 28, 2025 Team Status: Inactive Member Role/Relationship Status Dates Dr. Jluis Nichole DO Primary care physician Active Start: April 10, 2025 End: April 10, 2025 Sharon Parsons NP-C Attending physician Active Start: April 10, 2025 End: April 10, 2025 Sharon Parsons AROMATHERAPIST-C Referring Provider Active S tart: April 10, 2025 End: April 10, 2025 Dr. Porsha Bass DO Nurse Practitioner Active Start: April 10, 2025 End: April 10, 2025 Team Status: Active Member Role/Relationship Status Dates Dr. Jluis Nichole DO Primary care physician Active Start: April 10, 2025 Dr. Cecilio Siu MD Attending physician Active Start: April 10, 2025 Shaorn Parsons NP-C Referring Provider Active S tart: April 10, 2025 Team Status: Inactive Member Role/Relationship Status Dates Dr. Jluis Nichole DO Primary care physician Active Start: April 19, 2025 End: April 19, 2025 Dr. Porsha Bass DO Attending physician Active Start: April 19, 2025 End: April 19, 2025 Team Status: Inactive Member Role/Relationship Status Dates Dr. Jluis Nichole DO Primary care physician Active Start: April 26, 2025 End: April 26, 2025 Dr. Porsha Bass DO Attending physician Active Start: April 26, 2025 End: April 26, 2025 Dr. Porsha Bass DO Referring Provider Active Start: April 26, 2025 End: April 26, 2025 Team Status: Inactive Member Role/Relationship Status Dates Dr. Jluis Nichole DO Primary care physician Active Start: June 11, 2025 End: June 11, 2025 Dr. Jluis Nichole DO Referring Provider Active St art: June 11, 2025 End: June 11, 2025 Dr. Braxton Doss MD Attending physician Active Start: June 11, 2025 End: June 11, 2025 Goals (unrecognized section and content) Goals may be documented in a n alternate section Care Team (unrecognized sect ion and content) Care Team Personnel Name: Ashley Corea Clerk Lynn PT Position: P3 Scheduling - Tar And Ammonia Pump Operator Advanced Member Role: Other Name: LAYNE DOHERTY DO Position: P4 Physician - Primary Care Med Service: Active Provider Member Role: Primary Care Physician Address: Address: [address] [place] [address] Care Team Related Persons Name: DEBI RANDAHWA Address: Home [address] [place], [place] [id number] [place] Care Team Personnel Name: Ashley Corea Clerk Lynn PT Position: P3 Scheduling - Tar And Ammonia Pump Operator Advanced Member Role: Other Name: LAYNE DOHERTY DO Position: P4 Physician - Primary Care Med Service: Active Provider Member Role: Primary Care Physician Address: Address: [address] [place] [address] Care Team Related Persons Name: DEBI RANDHAWA Address: Home [address] [place], [place] [id number] Care Team Personnel Name: Ashley Corea Clerk Lynn PT Position: P3 Scheduling - Tar And Ammonia Pump Operator Advanced Member Role: Other Name: LAYNE DOHERTY DO Position: P4 Physician - Primary Care Member Role: Primary Care Physician Address: Address: [address] [place] [address] Care Team Related Persons Name: DEBI RANDHAWA Address: Home [address], [place] [phone] [place] Care Team Personnel Name: Ashley Corea Clerk Lynn PT Position: P3 Scheduling - Tar And Ammonia Pump Operator Advanced Member Role: Other Name: JLUIS NICHOLE DO Position: P4 Physician - Primary Care Member Role: Primary Care Physician Address: Address: [address] [place] [address] Care Team Related Persons Name: DEBI RANDHAWA Address: Home [address], [place] [phone] [place] Care Team Personnel Name: Ashley Corea Clerk Lynn PT Position: P3 Scheduling - Tar And Ammonia Pump Operator Advanced Member Role: Other Name: JLUIS NICHOLE DO Position: P4 Physician - Primary Care Member Role: Primary Care Physician Address: Address: [address] [facility] [place] [address]- Care Team Related Persons Name: DEBI RANDHAWA Address: Home [address] [place], [place] [id number] Source Comments (unrecognize d section and content) In the event this informatio n is protected by the Federal Confidentiality of Alcohol and Drug Abuse Patient Records regulations: The Federal rules restrict any use of the information to criminally investigate or prosecute any alcohol or drug abuse patient.[facility] Reason for Visit (unrecogniz ed section and content) Reason Comments New Patient Evaluation FOR RECORDS PERTAINING TO PATIENTS WHO ARE OR HAVE BEEN ENROLLED IN A CHEMICAL DEPENDENCY/SUBSTANCEABUSE PROGRAM, SOME INFORMATION MAY BE OMITTED. This clinical summary was aggregated from multiple sources. Caution should be exercised in using it in the provision of clinical care. This summary normalizes information from multiple sources, and as a consequence, information in this document may materially change the coding, format and clinical context of patient data. In addition, data may be omitted in some cases. CLINICAL DECISIONS SHOULD BE BASED ON THE PRIMARY CLINICAL RECORDS. [facility] [employer] [employer] provides no warranty or guarantee of the accuracy or completeness of information in this document.
== END | disposition home or self-care (01) ==
LOC: LABSPEC 15:46
PROVIDERS: PCP Student in an Organized Health Care Education/Training Program
DX: E87.5 Hyperkalemia (principal)
CPT/HCPCS: 84132

== ENCOUNTER → 2025-07-31 | Outpatient (REF) | payer MEDICARE, OTHER, SELFPAY ==
--- OUTSIDE RECORDS SUMMARY | 2025-07-31 03:33 | XMS RPT_ITS | CCD ---
Author Organization [facility] Care Team Providers Care Eyeglass Inspector Name Role Phone ARTEM ACEVEDO Unavailable Unavailable [facility] Unavailable Unavailable [facility] Unavailable Unavailable LAYNE DOHERTY DO Primary Care Physician Anmol OLIVA, Lynn Unavailable Unavailable Dr. Layne Doherty Primary Care Provider Dr. Layne Doherty Referring Provider Dr. Satish Razo Attending Provider [phone] DAYANARA LEE, DR BAZZI Primary Care Physician [phone] Dr. Layne Doherty Primary Care Provider Dr. Layne Doherty Referring Provider Roof 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, 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-Mayra Muprhy Attending Provider Dr. Braxton Doss Attending Provider Dr. Layne Doherty Referring Provider Roof 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, 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-C Maryuri Murphy Attending Provider Dr. Jluis Nichole [...] Romario ROMAN, Dr. Limon Attending Provider Shy 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-C, Maryuri Murphy Attending Provider Shy 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-C, Maryuri Murphy Referring Provider Bailey Salcedo Attending Provider Dayanara LEE, Dr. Bazzi Primary Care Provider Dayanara LEE, Dr. Bazzi Referring Provider [phone] Issa FARRIS-CSharon Attending Provider Dayanara LEE, Dr. Bazzi Primary Care Provider Dayanara LEE, Dr. Bazzi Referring Provider [phone] Bailey Salcedo Referring Provider Dr. Cheng Camarillo MD Attending Provider Issa FARRIS-CSharon Referring Provider [phone] Kali LEE, Dr. Story Other Provider Dr. Cecilio Siu MD Attending Provider Dr. Porsha Bass DO Attending Provider Dr. Porsha Bass DO Referring Provider TONEY GUTIERREZ Attending Unavailable JOSELITO NIELSEN JR Primary Care Unavailable Dayanara LEE, Dr. Bazzi Primary Care Physician Dayanara LEE, Dr. Bazzi Referring Provider [phone] Issa FARRIS-CSharon Attending Physician Bailey Salcedo Attending Physician Dr. Cheng Camarillo MD Attending Physician Kali LEE, Dr. Story Nurse Practitioner Salbador ROMAN, Dr. Hernandes Attending Physician Kali LEE, Dr. Story Attending Physician Romario ROMAN, Dr. Limon Attending Physician CHERYLAR DO, DR BAZZI Primary Care Unavailable [...] Unavailable Romar, Jluis Primary Care Unavailable Roof 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, Maryuri H Referring Unavailable Roof 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 Maryuri H Attending Unavailable Romar, Jluis Primary [...] [Antibiotics] Propensity to adverse reactions 11-29-2024 C-diff [facility] Comment on above: Per patient he needs [...] 0 Refill(s), 07/14/25 5:16:00 PM EDT, Pharmacy: [facility]/pharmacy #4605, 172, cm, 07/04/25 13:52:00 EDT, Height, [...] meds, # 100 tab(s), 1 Refill(s), Pharmacy: [facility] [address], 182.9, cm, 02/22/25 17:36:00 EDT, Height, kg, 02/22/25 17:36:00 EDT, Dosing Weight Start Date: 04/04/25 Stop Date: 10/21/25 Status: Ordered Medication Dispense Status: Completed Quantity: 100.0 Unit: tab(s) Total Allowed Fills: 2 Fills Dispensed: 0 Start: 09-21-2022 take 1 tablet by zach th once daily at bedtime atorvastatin 40 mg oral tablet 1 tab(s), Oral, qHS, # 90 tab(s), 1 Refill(s), Pharmacy: [facility]/pharmacy #4605, 175, cm, 09/21/22 8:31:00 EST, Height, [...] 0 Refill(s), 07/09/25 5:16:00 PM EDT, Pharmacy: [facility]/pharmacy #4605, 172, cm, 07/04/25 13:52:00 EDT, Height, [...] 0 Refill(s), 08/28/24 2:31:00 PM EST, Pharmacy: [facility]/pharmacy #460, 172, cm, 08/11/24 10:00:00 EST, Height, [...] qDay, # 14 tab(s), 0 Refill(s), [facility], 172.7, cm, 12/27/20 12:02:00 EDT, Height, [...] meds, # 100 tab(s), 1 Refill(s), Pharmacy: [facility] [address], 172, cm, 05/23/25 9:57:00 EDT, Height, kg, [...] CHEW, # 180 tab(s), 1 Refill(s), Pharmacy: [facility]/pharmacy #4605, 172, cm, 08/11/24 10:00:00 EST, Height, [...] CHEW, # 180 tab(s), 1 Refill(s), Pharmacy: [facility]/pharmacy #4605, 172, cm, 12/14/23 8:38:00 EDT, Height, kg, 12/14/23 8:38:00 EDT, Dosing Weight Start Date: 03/29/24 Status: Ordered Start: 12-31-2023 Metoprolol Suc cinate ER 100 mg oral TABLET extended release Dose : 100 mg = 1 tab(s), Oral, BID, TAKE 1 TABLET BY MOUTH TWICE A DAY DO NOT CRUSH OR CHEW, # 180 tab(s), 0 Refill(s), Pharmacy: [facility]/pharmacy #4605, 172, cm, 12/14/23 8:38:00 EDT, Height, [...] 55, # 180 tab(s), 1 Refill(s), Pharmacy: [facility]/pharmacy #4605, 175, cm, 04/16/22 7:17:00 EDT, Height, kg, 04/16/22 7:17:... Start Date: 07/01/22 Status: Ordered Start: 11-11-2021 take 1 tablet by zach th twice daily Metoprolol Succinate ER 100 mg oral TABLET extended release See Instructions, TAKE 1 TABLET BY MOUTH TWICE A DAY FOR BLOOD PRESSURE. HOLD FOR SBP LESS THAN 110, HR LESS THAN 55, # 180 tab(s), 1 Refill(s), Pharmacy: [facility]/pharmacy #4605, 175, cm, 06/16/21 8:33:00 EDT, Height, [...] meds, # 90 tab(s), 1 Refill(s), Pharmacy: [place] [address], 182.9, cm, 02/22/25 17:36:00 EDT, Height, kg, [...] qDay, # 90 tab(s), 0 Refill(s), Pharmacy: [facility]/pharmacy #4605, 172, cm, 02/21/25 9:16:00 EDT, Height, kg, 02/21/25 9:16:00 EDT, Dosing Weight Start Date: 02/21/25 Status: Ordered Quantity: 90.0 Unit: tab(s) Repeat number: 1 Start: 06-28-2024 End: 09-26-2024 sertraline 25 mg oral tablet Dose : 25 mg = 1 tab(s), Oral, qDay, # 90 tab(s), 0 Refill(s), Pharmacy: [facility]/pharmacy #4605, 172, cm, 06/28/24 8:58:00 EDT, Height, kg, 06/28/24 8:49:00 EDT, Dosing Weight Start Date: 06/28/24 Stop Date: 09/26/24 Status: Ordered Quantity: 90.0 Unit: tab(s) Repeat number: 1 [place] [address] mg powder for oral suspension (20 sources) [...] qDay, # 90 tab(s), 0 Refill(s), [facility], 172, cm, 08/11/24 10:00:00 EST, Height, kg, 08/11/24 10:00:00 EST, Dosing Weight Start Date: 08/14/24 Status: Ordered Quantity: 90.0 Unit: tab(s) Repeat number: 1 Start: 08-14-2024 Vitamin B12 10 00 mcg oral tablet Dose : 1,000 mcg = 1 tab(s), Oral, qDay, # 90 tab(s), 0 Refill(s), Pharmacy: [facility]/pharmacy #4605, 172, cm, 08/11/24 10:00:00 EST, Height, kg, 08/11/24 10:00:00 EST, Dosing Weight Start Date: 08/14/24 Status: Ordered Vitamin B12 500 mcg oral tablet (1 source) Start: 02-22-2025 End: 05-23-2025 Vitamin B12 500 mcg oral tab let Dose : 500 mcg = 1 tab(s), Oral, qDay, # 90 tab(s), 0 Refill(s), Pharmacy: [facility]/pharmacy #4605, 172, cm, 02/21/25 9:16:00 EDT, Height, [...] DAY, # 180 tab(s), 1 Refill(s), Pharmacy: [facility]/pharmacy #4605, 175, cm, 06/16/21 8:33:00 EDT, Height, [...] 2018 12:00am February 25, 2021 8:19am nystatin 711038 unt/ml oral suspension (12 sources) Polyene Antifungal Start: 06-16-2018 End: 07-07-2018 take 738175 [IU] by mouth four times daily Nystatin 500,000 UNIT/5 ML suspension Discontinued [id number] U PO 4 TIMES DAILY 150 0 [...] 07-24-2025 Potassium [Moles/Vol] 4.9 mmol/L Normal 3.3-5.1 [facility] Comment on above: Result Comment: Hemo lysis present, Results??could be affected. ?? Performed By: #### L 501.5600 #### [facility] [address] [place], [place], [address] Potassiumon 07-16-2025 Potassium [Moles/Vol] 5.2 mmol/L High 3.3-5.1 [facility] Comment on above: Performed By: #### L 501.5600 #### [facility] [address] [place], [place], [address] .GFRon 10-23-2025 Estimated Glomerular Filtration Rate 35 ml/min/1.73sqm Normal [facility] Comment on above: Result Comment: Stages [...] MENON, MG, ADIFF, GFR, CMP, ANEU #### [address] [address] BMPon 07-12-2025 BUN/Creatinine Ratio 17 ratio Normal 7-27 [facility] Comment on above: Order Comment: maya rosa Performed By: #### C KYUNG MENON, MG, ADIFF, GFR, CMP, ANEU #### [address] [address] Calcium [Mass/Vol] 8.5 mg/dL Normal 8.4-10.2 [facility] Comment on above: Order Comment: maya rosa Performed By: #### KYUNG SANTOS, MG, ADIFF, GFR, CMP, ANEU #### [address] [address] Chloride [Moles/Vol] 108 mmol/L High 98-107 [facility] Comment on above: Order Comment: maya rosa Performed By: #### KYUNG SANTOS, MG, ADIFF, GFR, CMP, ANEU #### [address] [address] CO2 [Moles/Vol] 26 mmol/L Normal 23-31 [facility] Comment on above: Order Comment: maya rosa Performed By: #### C KYUNG MENON, MG, ADIFF, GFR, CMP, ANEU #### [address] [address] Creatinine [Mass/Vol] 1.86 mg/dL High 0.67-1.17 [facility] Comment on above: Order Comment: hemmaya ruiz Performed By: #### C LYNSEY, W, MG, ADIFF, GFR, CMP, ANEU #### [address] [address] Electrolyte Balance 6.0 mEq/L Normal 4.0-15.0 [facility] Comment on above: Order Comment: hemmaya ruiz Performed By: #### C LYNSEY, KYUNG, MG, ADIFF, GFR, CMP, ANEU #### [address] [address] Glucose [Mass/Vol] 162 mg/dL High 83-110 [facility] Comment on above: Order Comment: hemmaya ruiz Performed By: #### C KYUNG MENON, MG, ADIFF, GFR, CMP, ANEU #### [address] [address] Potassium [Moles/Vol] 5.2 mmol/L High 3.5-5.1 [facility] Comment on above: Order Comment: hemmaya ruiz Performed By: #### C KYUNG MENON, MG, ADIFF, GFR, CMP, ANEU #### [address] [address] Sodium [Moles/Vol] 140 mmol/L Normal 136-145 [facility] Comment on above: Order Comment: hemmaya ruiz Performed By: #### C KYUNG MENON, MG, ADIFF, GFR, CMP, ANEU #### [address] [address] Urea nitrogen [Mass/Vol] 31 mg/dL High 7-18 [facility] Comment on above: Order Comment: hemmaya ruiz Performed By: #### C KYUNG MENON, MG, ADIFF, GFR, CMP, ANEU #### [address] [address] LABORATORYOrdered By: SYSTEM SYSTEM on 07-12-2025 Calcium [...] [Moles/Vol] 6.0 mmol/L Invalid Interpretation Code 3.3-5.1 [facility] Comment on above: Result Comment: Crit ical Result(s) Called MSHRIVER at: 1832 by: BRIDGETTE??Results read back by same. Performed By: #### L 501.5600 #### [facility] [address], [address] XR RIBS 2 VIEWS RIGHTon 10-1 XR [...] 11:17:47 AM Ordering Provider: JLUIS NICHOLE RP [facility] XR SHOULDER MINIMUM 2 VIEWS RIGHTon 07-06-2025 [...] AM Ordering Provider: JLUIS NICHOLE RP Normal [facility] CT HEAD OR BRAIN W/O CONTRAS [...] PM Ordering Provider: JLUIS NICHOLE RP Normal [facility] 07-05-2025 Potassium [Moles/Vol] 5.3 mmol/L High 3.5-5.1 L [facility] Comment on above: Performed By: #### C BC, W, MG, ADIFF, GFR, CMP, ANEU #### [address] [address] LABORATORYOrdered By: SYSTEM SYSTEM on 07-05-2025 Potassium [Moles/Vol] 5.3 mmol/L High 3.5 - 5.1 mmol/L AO ADM SS .Auto Diffon 07-04-2025 Basophil, Absolute 0.0 10 3/mcL Normal 0.0-0.3 [facility] Comment on above: Performed By: #### C KYUNG MENON, MG, ADIFF, GFR, CMP, ANEU #### [address] [address] Basophils/100 WBC (Bld) 0.7 % Normal 0.0-2.5 [facility] Comment on above: Performed By: #### C KYUNG MENON, MG, ADIFF, GFR, CMP, ANEU #### [address] [address] Eosinophil, Absolute 0.1 10 3/mcL Normal 0.0-0.7 [facility] Comment on above: Performed By: #### C KYUNG MENON, MG, ADIFF, GFR, CMP, ANEU #### [address] [address] Eosinophils/100 WBC (Bld) 1.8 % Normal 0.0-6.0 [facility] Comment on above: Performed By: #### C KYUNG MENON, MG, ADIFF, GFR, CMP, ANEU #### [address] [address] Lymphocyte, Absolute 1.5 10 3/mcL Normal 0.9-4.3 [facility] Comment on above: Performed By: #### C KYUNG MENON, MG, ADIFF, GFR, CMP, ANEU #### [address] [address] Lymphocytes/100 WBC (Bld) 20.8 % Normal 20.0-40.0 [facility] Comment on above: Performed By: #### C KYUNG MENON, MG, ADIFF, GFR, CMP, ANEU #### [address] [address] Monocyte, Absolute 0.5 10 3/mcL Normal 0.1-1.4 [facility] Comment on above: Performed By: #### C LYNSEY, W, MG, ADIFF, GFR, CMP, ANEU #### [address] [address] Monocytes/100 WBC (Bld) 7.7 % Normal 2.0-13.0 [facility] Comment on above: Performed By: #### C LYNSEY, MDW, MG, ADIFF, GFR, CMP, ANEU #### [address] [address] Neutrophils/100 WBC (Bld) 69.0 % Normal 50.0-75.0 [facility] Comment on above: Performed By: #### C LYNSEY, KYUNG, MG, ADIFF, GFR, CMP, ANEU #### [address] [address] .GFRon 07-04-2025 Estimated Glomerular Filtration Rate 36 ml/min/1.73sqm Normal [facility] Comment on above: Result Comment: Stages [...] W, MG, ADIFF, GFR, CMP, ANEU #### [place] [address] [place], [place] [address] .NEUABSon 07-04-2025 Neutrophil, Absolute 4.9 10 3/mcL Normal 2.3-8.1 [facility] Comment on above: Performed By: #### C BC, MDW, MG, ADIFF, GFR, CMP, ANEU #### [place] [address] CBCon 07-04-2025 Erythrocyte distribution width (RBC) [Ratio] 16.2 % High 11.5-15.5 [facility] Comment on above: Performed By: #### C KYUNG MENON, MG, ADIFF, GFR, CMP, ANEU #### [place] [address] Hematocrit (Bld) [Volume fraction] 33.6 % Low 40.0-52.0 [facility] Comment on above: Performed By: #### C KYUNG MENON, MG, ADIFF, GFR, CMP, ANEU #### [place] [address] Hgb 11.1 G/dL Low 13.0-17.5 [facility] Comment on above: Performed By: #### C KYUNG MENON, MG, ADIFF, GFR, CMP, ANEU #### [place] [address] MCH (RBC) [Entitic mass] 31.1 pg Normal 27.0-33.0 [facility] Comment on above: Performed By: #### C KYUNG MENON, MG, ADIFF, GFR, CMP, ANEU #### [place] [address] MCHC 32.9 G/dL Normal 32.0-36.0 [facility] Comment on above: Performed By: #### C KYUNG MENON, MG, ADIFF, GFR, CMP, ANEU #### [place] [address] MCV (RBC) [Entitic vol] 94.6 fL Normal 81.0-100.0 [facility] Comment on above: Performed By: #### C KYUNG MENON, MG, ADIFF, GFR, CMP, ANEU #### [place] [address] Platelet 107 10 3/mcL Low 150-450 [facility] Comment on above: Performed By: #### C KYUNG MENON, MG, ADIFF, GFR, CMP, ANEU #### [address] [address] Platelet mean volume (Bld) [Entitic vol] 8.5 fL Normal 6.4-10.5 [facility] Comment on above: Performed By: #### C KYUNG MENON, MG, ADIFF, GFR, CMP, ANEU #### [address] [address] RBC 3.55 10 6/mcL Low 4.50-6.00 [facility] Comment on above: Performed By: #### C KYUNG MENON, MG, ADIFF, GFR, CMP, ANEU #### [address] [address] WBC 7.1 10 3/mcL Normal 4.5-10.8 [facility] Comment on above: Performed By: #### C KYUNG MENON, MG, ADIFF, GFR, CMP, ANEU #### [address] [address] CMPon 07-04-2025 Albumin Level 3.7 G/dL Normal 3.4-4.8 [facility] Comment on above: Performed By: #### C KYUNG MENON, MG, ADIFF, GFR, CMP, ANEU #### [address] [address] Albumin/Globulin [Mass ratio] 1.2 {ratio} Normal 1.1-2.5 [facility] Comment on above: Performed By: #### C KYUNG MENON, MG, ADIFF, GFR, CMP, ANEU #### [address] [address] ALP [Catalytic activity/Vol] 108 U/L Normal 40-135 [facility] Comment on above: Performed By: #### C KYUNG MENON, MG, ADIFF, GFR, CMP, ANEU #### [address] [address] ALT/SGPT <6 Low 16-63 [facility] Comment on above: Performed By: #### C LYNSEY, W, MG, ADIFF, GFR, CMP, ANEU #### [place] [address] AST [Catalytic activity/Vol] 12 U/L Normal 10-40 [facility] Comment on above: Performed By: #### C LYNSEY, W, MG, ADIFF, GFR, CMP, ANEU #### [place] [address] Bili Total 0.7 mg/dL Normal 0.2-1.0 [facility] Comment on above: Result Comment: Use of this assay is not recommended for patients undergoing treatment with eltrombopag due to the potential for falsely elevated results. Performed By: #### C LYNSEY, KYUNG, MG, ADIFF, GFR, CMP, ANEU #### [place] [address] BUN/Creatinine Ratio 17 ratio Normal 7-27 [facility] Comment on above: Performed By: #### C LYNSEY, KYUNG, MG, ADIFF, GFR, CMP, ANEU #### [place] [id number] Calcium [Mass/Vol] 9.1 mg/dL Normal 8.4-10.2 [facility] Comment on above: Performed By: #### C LYNSEY, KYUNG, MG, ADIFF, GFR, CMP, ANEU #### [place] [id number] Chloride [Moles/Vol] 110 mmol/L High 98-107 [facility] Comment on above: Performed By: #### C LYNSEY, KYUNG, MG, ADIFF, GFR, CMP, ANEU #### [place] [id number] CO2 [Moles/Vol] 28 mmol/L Normal 23-31 [facility] Comment on above: Performed By: #### C LYNSEY, W, MG, ADIFF, GFR, CMP, ANEU #### [place] [address] [place], [place] [address] Creatinine [Mass/Vol] 1.82 mg/dL High 0.67-1.17 [facility] Comment on above: Performed By: #### C LYNSEY, KYUNG, MG, ADIFF, GFR, CMP, ANEU #### [address] [address] Electrolyte Balance 5.0 mEq/L Normal 4.0-15.0 [facility] Comment on above: Performed By: #### C LYNSEY, KYUNG, MG, ADIFF, GFR, CMP, ANEU #### [address] [address] Globulin 3.1 G/dL Normal 2.7-4.4 [facility] Comment on above: Performed By: #### C LYNSEY, KYUNG, MG, ADIFF, GFR, CMP, ANEU #### [address] [address] Glucose [Mass/Vol] 68 mg/dL Low 83-110 [facility] Comment on above: Performed By: #### C KYUNG MENON, MG, ADIFF, GFR, CMP, ANEU #### [address] [address] Potassium [Moles/Vol] 5.4 mmol/L High 3.5-5.1 [facility] Comment on above: Performed By: #### C LYNSEY, KYUNG, MG, ADIFF, GFR, CMP, ANEU #### [address] [address] Sodium [Moles/Vol] 143 mmol/L Normal 136-145 [facility] Comment on above: Performed By: #### C LYNSEY, KYUNG, MG, ADIFF, GFR, CMP, ANEU #### [address] [address] Total Protein 6.8 G/dL Normal 6.4-8.2 [facility] Comment on above: Performed By: #### C LYNSEY, KYUNG, MG, ADIFF, GFR, CMP, ANEU #### [address] [address] Urea nitrogen [Mass/Vol] 31 mg/dL High 7-18 [facility] Comment on above: Performed By: #### C BC, MDW, MG, ADIFF, GFR, CMP, ANEU #### [facility] [address] [place], [place] [address] LABORATORYOrdered By: SYSTEM SYSTEM on 07-04-2025 Albumin [...] Culture Urine No growth at 48 hours. [facility] Work Phone: PBNPon 07-04-2025 Natriuretic peptide B (Bld) [Mass/Vol] 1302 pg/mL High 0-450 [facility] Comment on above: Result Comment: NT-p roBNP results of less than 300 pg/mL effectively rules out acute congestive heart failure with 99% negative predictive value. Performed By: #### C BC, MDW, MG, ADIFF, GFR, CMP, ANEU #### [facility] [address] [place], [place] [address] XR CHEST 2 VIEWSon 5 XR CHEST [...] PM Ordering Provider: JLUIS NICHOLE RP Normal [facility] XR HUMERUS MINIMUM [facility] XR HUMERUS MINIMUM 2 VIEWS RIGHT [...] PM Ordering Provider: JLUIS NICHOLE RP Normal [facility] Neurology Visit Reporton Neurology Visit Report [facility] [address], [address] [place] [address] OFFICE VISIT Date of Service: 06/11/25 MR#: [id number] Acct: [id number] Name: EKATERINA RANDHAWA Rep #: [id number] : 1940 Provider: Dr. Braxton garg MD Age/Sex: 85/M Location[place] [facility] 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 He [...] pattern). Head (more content not included)... Normal [facility] Anion gap in Serum or Plasma Ordered By: Porsha Bass on 04-26-2025 Anion gap [Moles/Vol] 11 mmol/L - [facility] BUN/creatinine ratioOrdered By: Porsha Bass on 04-26-2025 Urea nitrogen/Creatinine [Mass ratio] 14.1 mg/mg 07-09 [facility] Basic Metabolic Profile (BMP )on 04-26-2025 BUN/CRE 14.1 RATIO Normal 07-09 [facility] Comment on above: Performed By: #### L 500.2500 #### [facility] [address] [place], [address] Calcium [Mass/Vol] 9.1 mg/dL Normal 7.6-11.0 [facility] Comment on above: Performed By: #### L 500.2500 #### [facility] [address] [place], [address] Chloride [Moles/Vol] 106 mmol/L Normal 98-108 [facility] Comment on above: Performed By: #### L 500.2500 #### [facility] [address] [place], [address] CO2 [Moles/Vol] 20.7 mmol/L Low 21.0-32.0 [facility] Comment on above: Performed By: #### L 500.2500 #### [facility] [address] [place], [address] Creatinine [Mass/Vol] 1.85 mg/dL High 0.70-1.20 [facility] Comment on above: Performed By: #### L 500.2500 #### [facility] [address] [place], [address] GAP 11 Normal 5-15 [facility] Comment on above: Performed By: #### L 500.2500 #### [facility] [address] [place], [address] GFR/1.73 sq M.predicted among non-blacks MDRD (S/P/Bld) [Vol rate/Area] 35 mL/min/{1.73_m2} Low >60 [facility] Comment on above: Result Comment: mL/m in/1.73m2 CKD-EPI Creatinine Equation (2020) Performed By: #### L 500.2500 #### [facility] [address] [place], [address] Glucose [Mass/Vol] 174 mg/dL High 70-99 [facility] Comment on above: Performed By: #### L 500.2500 #### [facility] [address] [place], [address] Potassium [Moles/Vol] 4.4 mmol/L Normal 3.3-5.1 [facility] Comment on above: Performed By: #### L 500.2500 #### [facility] [address] [place], [address] Sodium [Moles/Vol] 138 mmol/L Normal 133-145 [facility] Comment on above: Performed By: #### L 500.2500 #### [facility] [address] [place], [address] Urea nitrogen [Mass/Vol] 26 mg/dL High 4-19 [facility] Comment on above: Performed By: #### L 500.2500 #### [facility] [address] [place], [address] Carbon dioxide, total [Moles /volume] in Central venous bloodOrdered By: Porsha Bass on 04-26-2025 CO2 [Moles/Vol] 20.7 mmol/L Low 21.0-32.0 [facility] Chloride assayOrdered By: Kev Bass on 04-26-2025 Chloride [Moles/Vol] 106 mmol/L 98-108 [facility] Glomerular filtration rate ( GFR) estimation/1.73 sq m using serum, plasma, or whole bOrdered By: Porsha Bass on 04-26-2025 GFR/1.73 sq M.predicted among non-blacks MDRD (S/P/Bld) [Vol rate/Area] 35 mL/min/{1.73_m2} Low >60 [facility] Comment on above: mL/min/1.73m2 CKD-EP I Creatinine Equation (2020) Kidney and Bladderon 025 Kidney and Bladder [facility] [address] [place], [place] [address] Kidney and Bladder MR#: [id number] Acct: [id number] Name: EKATERINA RANDHAWA Rep #: [id number] : 1940 M 85 From: Konrad gaston MD PCP: Dr. Jluis Nichole DO Status: REG CLI Study: Kidney and Bladder Date of Exam: 04/26/25 Exam# [id number] Ordering Dr: Porsha Bass DO PROCEDURE: KIDNEY AND BLADDER 04/26/2025 REASON FOR EXAM: HYPERKALEMIA TECHNIQUE: KIDNEY AND BLADDER COMPARISON: None FINDINGS: Kidneys: Normal renal sizes, parenchymal thicknesses, and echotextures. [place]: No evidence of hydronephrosis. Cysts or Masses: [...] Bladder IMPRESSION: NORMAL RENAL ULTRASOUND. Reading Location: [id number] CC: Dr. Porsha Bass, DO; Dr. Jluis Nichole DO [employer] Hcm Developer: Signed Normal [facility] Potassium measurement (mass/ volume)Ordered By: Porsha Bsas on 04-26-2025 Potassium (Unsp spec) [Mass/Vol] 4.4 mmol/L 3.3-5.1 [facility] Serum creatinine measurement (mass/volume)Ordered By: Porsha Bass on 04-26-2025 Creatinine [Mass/Vol] 1.85 mg/dL High 0.70-1.20 [facility] Serum glucose measurement (m ass/volume)Ordered By: Porsha Bass on 04-26-2025 Glucose [Mass/Vol] 174 mg/dL High 70-99 [facility] Serum or plasma calcium francisco urement (mass/volume)Ordered By: Porsha Bass on 04-26-2025 Calcium [Mass/Vol] 9.1 mg/dL 7.6-11.0 [facility] Serum or plasma urea nitroge n measurement (mass/volume)Ordered By: Porsha Bass on 04-26-2025 Urea nitrogen [Mass/Vol] 26 mg/dL High 4-19 [facility] Sodium levelOrdered By: Seth Bass on 04-26-2025 Sodium [Moles/Vol] 138 mmol/L 133-145 [facility] Anion gap in Serum or Plasma Ordered By: Porsha Bass on 04-19-2025 Anion gap [Moles/Vol] 10 mmol/L 5-15 [facility] BUN/creatinine ratioOrdered By: Porsha Bass on 04-19-2025 Urea nitrogen/Creatinine [Mass ratio] 13.8 mg/mg 10-20 [facility] Basic Metabolic Profile (BMP )on 04-19-2025 BUN/CRE 13.8 RATIO Normal 10-20 [facility] Comment on above: Performed By: #### L 500.2500 #### [facility] [address] [place], [address] Calcium [Mass/Vol] 9.1 mg/dL Normal 7.6-11.0 [facility] Comment on above: Performed By: #### L 500.2500 #### [facility] [address] [place], [address] Chloride [Moles/Vol] 107 mmol/L Normal 98-108 [facility] Comment on above: Performed By: #### L 500.2500 #### [facility] [address] [place], [address] CO2 [Moles/Vol] 23.5 mmol/L Normal 21.0-32.0 [facility] Comment on above: Performed By: #### L 500.2500 #### [facility] [address] [place], [address] Creatinine [Mass/Vol] 1.99 mg/dL High 0.70-1.20 [facility] Comment on above: Performed By: #### L 500.2500 #### [facility] [address] [place], [address] GAP 10 Normal 5-15 [facility] Comment on above: Performed By: #### L 500.2500 #### [facility] [address] [place], [address] GFR/1.73 sq M.predicted among non-blacks MDRD (S/P/Bld) [Vol rate/Area] 32 mL/min/{1.73_m2} Low >60 [facility] Comment on above: Result Comment: mL/m in/1.73m2 CKD-EPI Creatinine Equation (2020) Performed By: #### L 500.2500 #### [facility] [address] [place], [address] Glucose [Mass/Vol] 117 mg/dL High 70-99 [facility] Comment on above: Performed By: #### L 500.2500 #### [facility] [address] [place], [address] Potassium [Moles/Vol] 5.7 mmol/L High 3.3-5.1 [facility] Comment on above: Performed By: #### L 500.2500 #### [facility] [address] [place], [place], [id number] Sodium [Moles/Vol] 140 mmol/L Normal 133-145 [facility] Comment on above: Performed By: #### L 500.2500 #### [facility] [address] [place], [place], [id number] Urea nitrogen [Mass/Vol] 27 mg/dL High 4-19 [facility] Comment on above: Performed By: #### L 500.2500 #### [facility] [address] [place], [place], [address] Carbon dioxide, total [Moles /volume] in Central venous bloodOrdered By: Porsha Bass on 04-19-2025 CO2 [Moles/Vol] 23.5 mmol/L 21.0-32.0 [facility] Chloride assayOrdered By: Kev Bass on 04-19-2025 Chloride [Moles/Vol] 107 mmol/L 98-108 [facility] Glomerular filtration rate ( GFR) estimation/1.73 sq m using serum, plasma, or whole bOrdered By: Porsha Bass on 04-19-2025 GFR/1.73 sq M.predicted among non-blacks MDRD (S/P/Bld) [Vol rate/Area] 32 mL/min/{1.73_m2} Low >60 [facility] Comment on above: mL/min/1.73m2 CKD-EP I Creatinine Equation (2020) Potassium measurement (mass/ volume)Ordered By: Porsha Bass on 04-19-2025 Potassium (Unsp spec) [Mass/Vol] 5.7 mmol/L High 3.3-5.1 [facility] Serum creatinine measurement (mass/volume)Ordered By: Porsha Bass on 04-19-2025 Creatinine [Mass/Vol] 1.99 mg/dL High 0.70-1.20 [facility] Serum glucose measurement (m ass/volume)Ordered By: Porsha Bass on 04-19-2025 Glucose [Mass/Vol] 117 mg/dL High 70-99 [facility] Serum or plasma calcium francisco urement (mass/volume)Ordered By: Porsha Bass on 04-19-2025 Calcium [Mass/Vol] 9.1 mg/dL 7.6-11.0 [facility] Serum or plasma urea nitroge n measurement (mass/volume)Ordered By: Porsha Bass on 04-19-2025 Urea nitrogen [Mass/Vol] 27 mg/dL High 4-19 [facility] Sodium levelOrdered By: Seth Bass on 04-19-2025 Sodium [Moles/Vol] 140 mmol/L 133-145 [facility] Anion gap in Serum or Plasma Ordered By: Porsha Bass on 04-10-2025 Anion gap [Moles/Vol] 10 mmol/L 5- [facility] BUN/creatinine ratioOrdered By: Porsha Bass on 04-10-2025 Urea nitrogen/Creatinine [Mass ratio] 16.9 mg/mg - [facility] Basic Metabolic Profile (BMP )on 04-10-2025 BUN/CRE 16.9 RATIO Normal - [facility] Comment on above: Performed By: #### L 500.2500, L501.5200 #### [facility] [address] [place], [address] Calcium [Mass/Vol] 9.4 mg/dL Normal 7.6-11.0 [facility] Comment on above: Performed By: #### L 500.2500, L501.5200 #### [facility] [address] [place], [address] Chloride [Moles/Vol] 107 mmol/L Normal 98-108 [facility] Comment on above: Performed By: #### L 500.2500, L501.5200 #### [facility] [address] [place], [address] CO2 [Moles/Vol] 23.1 mmol/L Normal 21.0-32.0 [facility] Comment on above: Performed By: #### L 500.2500, L501.5200 #### [facility] [address] [place], [address] Creatinine [Mass/Vol] 1.80 mg/dL High 0.70-1.20 [facility] Comment on above: Performed By: #### L 500.2500, L501.5200 #### [facility] [address] [place], [address] GAP 10 Normal 5-15 [facility] Comment on above: Performed By: #### L 500.2500, L501.5200 #### [facility] [address] [place], [address] GFR/1.73 sq M.predicted among non-blacks MDRD (S/P/Bld) [Vol rate/Area] 36 mL/min/{1.73_m2} Low >60 [facility] Comment on above: Result Comment: mL/m in/1.73m2 CKD-EPI Creatinine Equation (2020) Performed By: #### L 500.2500, L501.5200 #### [facility] [address] [place], [address] Glucose [Mass/Vol] 129 mg/dL High 70-99 [facility] Comment on above: Performed By: #### L 500.2500, L501.5200 #### [facility] [address] [place], [address] Potassium [Moles/Vol] 5.5 mmol/L High 3.3-5.1 [facility] Comment on above: Performed By: #### L 500.2500, L501.5200 #### [facility] [address] [place], [address] Sodium [Moles/Vol] 140 mmol/L Normal 133-145 [facility] Comment on above: Performed By: #### L 500.2500, L501.5200 #### [facility] [address] [place], [place], [address] Urea nitrogen [Mass/Vol] 30 mg/dL High 4-19 [facility] Comment on above: Performed By: #### L 500.2500, L501.5200 #### [facility] [address] [place], [place], [address] Carbon dioxide, total [Moles /volume] in Central venous bloodOrdered By: Porsha Bass on 04-10-2025 CO2 [Moles/Vol] 23.1 mmol/L 21.0-32.0 [facility] Carotid Duplex Ultrasoundon 04-10-2025 Carotid Duplex Ultrasound [facility] [address] [place] [address] Carotid Duplex Ultrasound 04/10/25 1303 MR#: [id number] Acct: [id number] Name: EKATERINA RANDHAWA Rep #: [id number] : 1940 85 From: Cecilio Siu MD Attending Dr: OBIE Fernández Status: REG C LI Ordering Dr: Sharon Parsons 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-C Date: 04/10/25 Location: [facility] Sex: M C [...] the left vertebral artery. Procedure Carotid Duplex 57332. This is a Carotid Duplex examination using [...] Dictated: 04/10/25 1303 Date Transcribed: 04/10/25 142 [employer] Hcm Developer: Signed [facility] Chloride assayOrdered By: Kev Bass on 04-10-2025 Chloride [Moles/Vol] 107 mmol/L 98-108 [facility] Duplex ultrasound of carotid artery reportOrdered By: Cecilio Siu on 04-10-2025 Study report [facility] [place] [address] Carotid Duplex Ultrasound 04/10/25 1303 MR#: [id number] Acct: [id number] Name: EKATERINA RANDHAWA Rep #:[id number] : 1940 85 From: Cecilio Bautista Attending [...] the left vertebral artery. Procedure Carotid Duplex 18297. This is a Carotid Duplex examination using [...] 1425 Date _ Cecilio Siu MD CC: 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-Mayra Parsons; Dr. Jluis Nichole DO ~ Date Dictated: 04/10/25 1303 Date Transcribed: 04/10/25 1425 [employer] H[employer] Developer: Signed [facility] Work Phone: Glomerular filtration rate ( GFR) estimation/1.73 sq m using serum, plasma, or whole bOrdered By: Porsha Bass on 04-10-2025 GFR/1.73 sq M.predicted among non-blacks MDRD (S/P/Bld) [Vol rate/Area] 36 mL/min/{1.73_m2} Low >60 [facility] Comment on above: mL/min/1.73m2 CKD-EP I Creatinine Equation (2020) Magnesiumon 04-10-2025 Magnesium [Mass/Vol] 2.0 mg/dL Normal 1.5-2.2 [facility] Comment on above: Performed By: #### L 500.2500, L501.5200 #### [facility] [address] [place], [address] Magnesium measurement (mass/ volume)Ordered By: Porsha Bass on 04-10-2025 Magnesium (Unsp spec) [Mass/Vol] 2.0 mg/dL 1.5-2.2 [facility] Potassium measurement (mass/ volume)Ordered By: Porsha Bass on 04-10-2025 Potassium (Unsp spec) [Mass/Vol] 5.5 mmol/L High 3.3-5.1 [facility] Serum creatinine measurement (mass/volume)Ordered By: Porsha Bass on 04-10-2025 Creatinine [Mass/Vol] 1.80 mg/dL High 0.70-1.20 [facility] Serum glucose measurement (m ass/volume)Ordered By: Porsha Bass on 04-10-2025 Glucose [Mass/Vol] 129 mg/dL High 70-99 [facility] Serum or plasma calcium francisco urement (mass/volume)Ordered By: Porsha Bass on 04-10-2025 Calcium [Mass/Vol] 9.4 mg/dL 7.6-11.0 [facility] Serum or plasma urea nitroge n measurement (mass/volume)Ordered By: Porsha Bass on 04-10-2025 Urea nitrogen [Mass/Vol] 30 mg/dL High 4-19 [facility] Sodium levelOrdered By: Seth Bass on 04-10-2025 Sodium [Moles/Vol] 140 mmol/L 133-145 [facility] Echo Completeon 03-28-2025 Echo [facility] [address] [place] [address] Echo Complete 03/28/25 1258 MR#: [id number] Acct: [id number] Name: EKATERINA RANDHAWA Rep #: [id number] : 1940 85 From: Cheng Camarillo MD [...] [place] Date Dictated: 03/28/251257 Date Transcribed: 03/28/251840 [employer] H[employer] Developer: Signed Normal [facility] Echocardiogram study reportO rdered By: Cheng Camarillo on 03-28-2025 Study report [facility] [address] [place] [address] Echo Complete 03/28/251257 MR#: [id number] Acct: [id number] Name: EKATERINA RANDHAWA Rep #:[id number] : 1940 85 From: Cheng Bautista Attending Dr: DG Fontana Status: REG CLI Ordering Dr: Bailey Howe Date: 03/28/25 Location: [facility] Sex: M C Admitted: Reason For Study [...] Date Dictated: 03/28/25 1258 Date Transcribed: 03/28/251840 [employer] H[employer] Developer: Signed [facility] Work Phone: Neurology Visit Reporton Neurology Visit Report [facility] [address] [place] [address], [address] [address] OFFICE VISIT Date of Service: 03/28/25 MR#: [id number] Acct: [id number] Name: EKATERINA RANDHAWA Rep #: [id number] : 1940 Provider: OBIE key Age/Sex: 85/M Location[place] [facility] 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 He [...] acute o (more content not included)... 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 Encounter Status:Closed by DEB OROZCO on 06/07/25 Normal [facility] INTABon 02-24-2025 Intrinsic Factor Abs 0.9 Au/mL Normal 0.0-1.1 [facility] Comment on above: Result Comment: Perf ormed At: [facility] [address] [id number] Jacques Ferrell MD Ph:[phone] Performed By: #### C KYUNG MENON, MG, ADIFF, GFR, CMP, ANEU #### [address] [address] .Auto Diffon 02-22-2025 Basophil, Absolute 0.1 10 3/mcL Normal 0.0-0.3 [facility] Comment on above: Performed By: #### C KYUNG MENON, MG, ADIFF, GFR, CMP, ANEU #### [address] [address] Basophils/100 WBC (Bld) 1.4 % Normal 0.0-2.5 [facility] Comment on above: Performed By: #### C KYUNG MENON, MG, ADIFF, GFR, CMP, ANEU #### [address] [address] Eosinophil, Absolute 0.1 10 3/mcL Normal 0.0-0.7 [facility] Comment on above: Performed By: #### C KYUNG MENON, MG, ADIFF, GFR, CMP, ANEU #### [address] [address] Eosinophils/100 WBC (Bld) 2.0 % Normal 0.0-6.0 [facility] Comment on above: Performed By: #### KYUNG SANTOS, MG, ADIFF, GFR, CMP, ANEU #### [address] [address] Lymphocyte, Absolute 1.5 10 3/mcL Normal 0.9-4.3 [facility] Comment on above: Performed By: #### C LYNSEY, KYUNG, MG, ADIFF, GFR, CMP, ANEU #### [address] [address] Lymphocytes/100 WBC (Bld) 26.0 % Normal 20.0-40.0 [facility] Comment on above: Performed By: #### C LYNSEY, MDW, MG, ADIFF, GFR, CMP, ANEU #### [address] [address] Monocyte, Absolute 0.5 10 3/mcL Normal 0.1-1.4 [facility] Comment on above: Performed By: #### C LYNSEY, KYUNG, MG, ADIFF, GFR, CMP, ANEU #### [address] [address] Monocytes/100 WBC (Bld) 7.8 % Normal 2.0-13.0 [facility] Comment on above: Performed By: #### C LYNSEY, KYUNG, MG, ADIFF, GFR, CMP, ANEU #### [address] [address] Neutrophils/100 WBC (Bld) 62.8 % Normal 50.0-75.0 [facility] Comment on above: Performed By: #### C LYNSEY, W, MG, ADIFF, GFR, CMP, ANEU #### [address] [address] .GFRon 02-22-2025 Estimated Glomerular Filtration Rate 30 ml/min/1.73sqm Normal [facility] Comment on above: Result Comment: Stages [...] MDW, MG, ADIFF, GFR, CMP, ANEU #### [place] [address] .MDWon 02-22-2025 Monocyte Distribution Width 17.57 Normal 0.00-20.00 [facility] Comment on above: Result Comment: For ED adult patients suspected of sepsis, MDW<=20.0 does not rule out sepsis or risk of sepsis Performed By: #### C BC, MDW, MG, ADIFF, GFR, CMP, ANEU #### [place] [address] .NEUABSon 02-22-2025 Neutrophil, Absolute 3.6 10 3/mcL Normal 2.3-8.1 [facility] Comment on above: Performed By: #### C BC, MDW, MG, ADIFF, GFR, CMP, ANEU #### [place] [address] CBCon 02-22-2025 Erythrocyte distribution width (RBC) [Ratio] 15.6 % High 11.5-15.5 [facility] Comment on above: Performed By: #### C BC, MDW, MG, ADIFF, GFR, CMP, ANEU #### [place] [address] Hematocrit (Bld) [Volume fraction] 32.7 % Low 40.0-52.0 [facility] Comment on above: Performed By: #### C BC, MDW, MG, ADIFF, GFR, CMP, ANEU #### [place] [address] Hgb 10.8 G/dL Low 13.0-17.5 [facility] Comment on above: Performed By: #### C BC, MDW, MG, ADIFF, GFR, CMP, ANEU #### [place] [address] MCH (RBC) [Entitic mass] 29.5 pg Normal 27.0-33.0 [facility] Comment on above: Performed By: #### C KYUNG MENON, MG, ADIFF, GFR, CMP, ANEU #### [address] [address] MCHC 33.0 G/dL Normal 32.0-36.0 [facility] Comment on above: Performed By: #### C KYUNG MENON, MG, ADIFF, GFR, CMP, ANEU #### [address] [address] MCV (RBC) [Entitic vol] 89.5 fL Normal 81.0-100.0 [facility] Comment on above: Performed By: #### C KYUNG MENON, MG, ADIFF, GFR, CMP, ANEU #### [address] [address] Platelet 104 10 3/mcL Low 150-450 [facility] Comment on above: Performed By: #### C KYUNG MENON, MG, ADIFF, GFR, CMP, ANEU #### [address] [address] Platelet mean volume (Bld) [Entitic vol] 7.2 fL Normal 6.4-10.5 [facility] Comment on above: Performed By: #### C KYUNG MENON, MG, ADIFF, GFR, CMP, ANEU #### [address] [address] RBC 3.65 10 6/mcL Low 4.50-6.00 [facility] Comment on above: Performed By: #### C KYUNG MENON, MG, ADIFF, GFR, CMP, ANEU #### [address] [address] WBC 5.8 10 3/mcL Normal 4.5-10.8 [facility] Comment on above: Performed By: #### C KYUNG MENON, MG, ADIFF, GFR, CMP, ANEU #### [address] [address] CMPon 02-22-2025 ALT [Catalytic activity/Vol] 9 U/L Low 16-63 [facility] Comment on above: Performed By: #### C KYUNG MENON, MG, ADIFF, GFR, CMP, ANEU #### [place] [address] Albumin Level 3.7 G/dL Normal 3.4-4.8 [facility] Comment on above: Performed By: #### C KYUNG MENON, MG, ADIFF, GFR, CMP, ANEU #### [place] [address] Albumin/Globulin [Mass ratio] 1.3 {ratio} Normal 1.1-2.5 [facility] Comment on above: Performed By: #### C KYUNG MENON, MG, ADIFF, GFR, CMP, ANEU #### [place] [address] ALP [Catalytic activity/Vol] 99 U/L Normal 40-135 [facility] Comment on above: Performed By: #### C KYUNG MENON, MG, ADIFF, GFR, CMP, ANEU #### [place] [address] AST [Catalytic activity/Vol] 14 U/L Normal 10-40 [facility] Comment on above: Performed By: #### C KYUNG MENON, MG, ADIFF, GFR, CMP, ANEU #### [place] [address] Bili Total 0.5 mg/dL Normal 0.2-1.0 [facility] Comment on above: Result Comment: Use of this assay is not recommended for patients undergoing treatment with eltrombopag due to the potential for falsely elevated results. Performed By: #### C KYUNG MENON, MG, ADIFF, GFR, CMP, ANEU #### [place] [address] BUN/Creatinine Ratio 16 ratio Normal 7-27 [facility] Comment on above: Performed By: #### C KYUNG MENON, MG, ADIFF, GFR, CMP, ANEU #### [place] [address] Calcium [Mass/Vol] 8.9 mg/dL Normal 8.4-10.2 [facility] Comment on above: Performed By: #### C BC, W, MG, ADIFF, GFR, CMP, ANEU #### [place] [address] Chloride [Moles/Vol] 106 mmol/L Normal 98-107 [facility] Comment on above: Performed By: #### C BC, MDW, MG, ADIFF, GFR, CMP, ANEU #### [place] [address] CO2 [Moles/Vol] 28 mmol/L Normal 23-31 [facility] Comment on above: Performed By: #### C BC, MDW, MG, ADIFF, GFR, CMP, ANEU #### [place] [address] Creatinine [Mass/Vol] 2.12 mg/dL High 0.67-1.17 [facility] Comment on above: Performed By: #### C LYNSEY, W, MG, ADIFF, GFR, CMP, ANEU #### [place] [address] Electrolyte Balance 7.0 mEq/L Normal 4.0-15.0 [facility] Comment on above: Performed By: #### C BC, MDW, MG, ADIFF, GFR, CMP, ANEU #### [place] [address] Globulin 2.8 G/dL Normal 2.7-4.4 [facility] Comment on above: Performed By: #### C LYNSEY, W, MG, ADIFF, GFR, CMP, ANEU #### [place] [address] Glucose [Mass/Vol] 113 mg/dL High 83-110 [facility] Comment on above: Performed By: #### C BC, MDW, MG, ADIFF, GFR, CMP, ANEU #### [place] [address] Potassium [Moles/Vol] 4.7 mmol/L Normal 3.5-5.1 [facility] Comment on above: Performed By: #### C KYUNG MENON, MG, ADIFF, GFR, CMP, ANEU #### [address] [address] Sodium [Moles/Vol] 141 mmol/L Normal 136-145 [facility] Comment on above: Performed By: #### C KYUNG MENON, MG, ADIFF, GFR, CMP, ANEU #### [place] [address] Total Protein 6.5 G/dL Normal 6.4-8.2 [facility] Comment on above: Performed By: #### KYUNG SANTOS, MG, ADIFF, GFR, CMP, ANEU #### [place] [address] Urea nitrogen [Mass/Vol] 34 mg/dL High 7-18 [facility] Comment on above: Performed By: #### C KYUNG MENON, MG, ADIFF, GFR, CMP, ANEU #### [place] [address] Jimmy 02-22-2025 Gastrin 113 pg/mL Normal 0-115 [facility] Comment on above: Result Comment: Siem [facility] Immulite 2000 Immunochemiluminometric assay (ICMA) Values obtained with different assay methods or kits cannot be used interchangeably. Results cannot be interpreted as absolute evidence of the presence or absence of malignant disease. Performed At: [address] [id number] Jacques Ferrell MD Ph:[phone] Performed By: #### C KYUNG MENON, MG, ADIFF, GFR, CMP, ANEU #### [place] [address] LABORATORYOrdered By: SYSTEM SYSTEM on 02-22-2025 Albumin [...] 02-22-2025 Magnesium [Mass/Vol] 1.8 mg/dL Normal 1.8-2.4 [facility] Comment on above: Performed By: #### C KYUNG MENON, MG, ADIFF, GFR, CMP, ANEU #### [place] [address] .Auto Diffon 02-21-2025 Basophil, Absolute 0.0 10 3/mcL Normal 0.0-0.3 [facility] Comment on above: Performed By: #### C KYUNG MENON, MG, ADIFF, GFR, CMP, ANEU #### [address] [address] Basophils/100 WBC (Bld) 0.6 % Normal 0.0-2.5 [facility] Comment on above: Performed By: #### C KYUNG MENON, MG, ADIFF, GFR, CMP, ANEU #### [place] [id number] Eosinophil, Absolute 0.1 10 3/mcL Normal 0.0-0.7 [facility] Comment on above: Performed By: #### C KYUNG MENON, MG, ADIFF, GFR, CMP, ANEU #### [address] [address] Eosinophils/100 WBC (Bld) 2.4 % Normal 0.0-6.0 [facility] Comment on above: Performed By: #### C LYNSEY, W, MG, ADIFF, GFR, CMP, ANEU #### [address] [address] Lymphocyte, Absolute 1.5 10 3/mcL Normal 0.9-4.3 [facility] Comment on above: Performed By: #### C LYNSEY, KYUNG, MG, ADIFF, GFR, CMP, ANEU #### [address] [address] Lymphocytes/100 WBC (Bld) 24.4 % Normal 20.0-40.0 [facility] Comment on above: Performed By: #### C KYUNG MENON, MG, ADIFF, GFR, CMP, ANEU #### [address] [address] Monocyte, Absolute 0.4 10 3/mcL Normal 0.1-1.4 [facility] Comment on above: Performed By: #### C KYUNG MENON, MG, ADIFF, GFR, CMP, ANEU #### [address] [address] Monocytes/100 WBC (Bld) 6.1 % Normal 2.0-13.0 [facility] Comment on above: Performed By: #### C KYUNG MENON, MG, ADIFF, GFR, CMP, ANEU #### [address] [address] Neutrophils/100 WBC (Bld) 66.5 % Normal 50.0-75.0 [facility] Comment on above: Performed By: #### C KYUNG MENON, MG, ADIFF, GFR, CMP, ANEU #### [address] [address] .GFRon 02-21-2025 Estimated Glomerular Filtration Rate 31 ml/min/1.73sqm Normal [facility] Comment on above: Result Comment: Stages [...] W, MG, ADIFF, GFR, CMP, ANEU #### [address] [address] .NEUABSon 02-21-2025 Neutrophil, Absolute 4.0 10 3/mcL Normal 2.3-8.1 [facility] Comment on above: Performed By: #### C MD LYNSEYW, MG, ADIFF, GFR, CMP, ANEU #### [address] [address] B12on 02-21-2025 Cobalamin (Vitamin B12) [Mass/Vol] 1629 pg/mL High 211-911 [facility] Comment on above: Performed By: #### C MD LYNSEYW, MG, ADIFF, GFR, CMP, ANEU #### [address] [address] BMPon 02-21-2025 BUN/Creatinine Ratio 15 ratio Normal 7-27 [facility] Comment on above: Performed By: #### C KYUNG MENON, MG, ADIFF, GFR, CMP, ANEU #### [address] [address] Calcium [Mass/Vol] 9.3 mg/dL Normal 8.4-10.2 [facility] Comment on above: Performed By: #### C LYNSEY, W, MG, ADIFF, GFR, CMP, ANEU #### [address] [address] Chloride [Moles/Vol] 106 mmol/L Normal 98-107 [facility] Comment on above: Performed By: #### C KYUNG MENON, MG, ADIFF, GFR, CMP, ANEU #### [address] [address] CO2 [Moles/Vol] 29 mmol/L Normal 23-31 [facility] Comment on above: Performed By: #### C KYUNG MENON, MG, ADIFF, GFR, CMP, ANEU #### [address] [address] Creatinine [Mass/Vol] 2.09 mg/dL High 0.67-1.17 [facility] Comment on above: Performed By: #### C KYUNG MENON, MG, ADIFF, GFR, CMP, ANEU #### [address] [address] Electrolyte Balance 6.0 mEq/L Normal 4.0-15.0 [facility] Comment on above: Performed By: #### C KYUNG MENON, MG, ADIFF, GFR, CMP, ANEU #### [address] [address] Glucose [Mass/Vol] 110 mg/dL Normal 83-110 [facility] Comment on above: Performed By: #### C KYUNG MENON, MG, ADIFF, GFR, CMP, ANEU #### [address] [address] Potassium [Moles/Vol] 6.0 mmol/L High 3.5-5.1 [facility] Comment on above: Performed By: #### C KYUNG MENON, MG, ADIFF, GFR, CMP, ANEU #### [address] [address] Sodium [Moles/Vol] 141 mmol/L Normal 136-145 [facility] Comment on above: Performed By: #### C KYUNG MENON, MG, ADIFF, GFR, CMP, ANEU #### [place] [address] Urea nitrogen [Mass/Vol] 32 mg/dL High 7-18 [facility] Comment on above: Performed By: #### C KYUNG MENON, MG, ADIFF, GFR, CMP, ANEU #### [place] [id number] CBCon 02-21-2025 Erythrocyte distribution width (RBC) [Ratio] 15.6 % High 11.5-15.5 [facility] Comment on above: Performed By: #### C KYUNG MENON, MG, ADIFF, GFR, CMP, ANEU #### [place] [address] Hematocrit (Bld) [Volume fraction] 32.6 % Low 40.0-52.0 [facility] Comment on above: Performed By: #### C KYUNG MENON, MG, ADIFF, GFR, CMP, ANEU #### [place] [address] Hgb 10.9 G/dL Low 13.0-17.5 [facility] Comment on above: Performed By: #### C KYUNG MENON, MG, ADIFF, GFR, CMP, ANEU #### [place] [address] MCH (RBC) [Entitic mass] 29.8 pg Normal 27.0-33.0 [facility] Comment on above: Performed By: #### C KYUNG MENON, MG, ADIFF, GFR, CMP, ANEU #### [place] [address] MCHC 33.3 G/dL Normal 32.0-36.0 [facility] Comment on above: Performed By: #### C KYUNG MENON, MG, ADIFF, GFR, CMP, ANEU #### [place] [address] MCV (RBC) [Entitic vol] 89.5 fL Normal 81.0-100.0 [facility] Comment on above: Performed By: #### C KYUNG MENON, MG, ADIFF, GFR, CMP, ANEU #### [address] [address] Platelet 99 10 3/mcL Low 150-450 [facility] Comment on above: Performed By: #### C LYNSEY, KYUNG, MG, ADIFF, GFR, CMP, ANEU #### [address] [address] Platelet mean volume (Bld) [Entitic vol] 7.3 fL Normal 6.4-10.5 [facility] Comment on above: Performed By: #### C LYNSEY, KYUNG, MG, ADIFF, GFR, CMP, ANEU #### [address] [address] RBC 3.65 10 6/mcL Low 4.50-6.00 [facility] Comment on above: Performed By: #### C LYNSEY, KYUNG, MG, ADIFF, GFR, CMP, ANEU #### [address] [address] WBC 6.0 10 3/mcL Normal 4.5-10.8 [facility] Comment on above: Performed By: #### C LYNSEY, KYUNG, MG, ADIFF, GFR, CMP, ANEU #### [address] [address] Jimmy 02-21-2025 Fasting Y Yes Normal [facility] Comment on above: Performed By: #### C LYNSEY, KYUNG, MG, ADIFF, GFR, CMP, ANEU #### [address] [address] LABORATORYOrdered By: SYSTEM SYSTEM on 02-21-2025 25-hydroxyvitamin [...] SS Comment on above: Result Comment: Siem [facility] Immulite 2000 Immunochemiluminometric assay (ICMA) Values obtained with different assay methods or kits cannot be used interchangeably. Results cannot be interpreted as absolute evidence of the presence or absence of malignant disease. Performed At: [address] [id number] Jacques Ferrell MD Ph:[phone] Intrinsic Factor Abs (LC) 0.9 Au/mL Invalid Interpretation Code 0.0-1.1 AO [facility] SS Comment on above: Result Comment: Perf ormed At: [facility] [id number] Jacques Ferrell MD Ph:[phone] MGon 02-21-2025 Magnesium [Mass/Vol] 1.9 mg/dL Normal 1.8-2.4 [facility] Comment on above: Performed By: #### C KYUNG MENON, MG, ADIFF, GFR, CMP, ANEU #### [address] [address] PTHon 02-21-2025 PTH, Intact 170.3 pg/mL High 18.5-88.0 [facility] Comment on above: Performed By: #### C KYUNG MENON, MG, ADIFF, GFR, CMP, ANEU #### [address] [address] VIDHon 02-21-2025 Vit. D 25-Hydroxy 32.7 ng/mL Normal [facility] Comment on above: Result Comment: Inte rpretive Values Based on Total 25([place]) Vitamin D: Deficient <20 ng/mL Insufficient 20 - <30 ng/mL Sufficient 30-100 ng/mL Performed By: #### C KYUNG MENON, MG, ADIFF, GFR, CMP, ANEU #### [address] [address] Cardiology Visit Reporton Cardiology Visit Report [facility] [address] [place] [address]. [address] [place], [place] [id number] OFFICE VISIT Date of Service: 02/16/25 MR#: [id number] Acct: [id number] Name: EKATERINA RANDHAWA Rep #: [id number] : 1940 Provider: DG Vail Age/Sex: 84/M Location: [facility] Status: Signed HPI HPI History of Present [...] Intake Visit Reasons: 1 Y FU/PREV PFM Scrap [place]er Required: No Accompanied by: Daughter Is patient [...] 02/16/25 Hi story gram oral powder packet ([facility]) lisinopril 20 mg tablet 20 mg [...] the past year?: Yes (Trip and fall) [facility] Medical History 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 Normal [facility] Bilirubin directOrdered By: Maryuri Begum on 02-08-2025 Bilirubin.direct [Mass/Vol] 0.26 mg/dL 0.00-0.30 [facility] Bilirubin, totalOrdered By: Maryuri Begum on 02-08-2025 Bilirubin [Mass/Vol] 0.48 mg/dL 0.00-1.30 [facility] Calculated very low density lipoprotein (VLDL) cholesterol measurementOrdered By: Maryuri Begum on 02-08-2025 Calculated very low density lipoprotein (VLDL) cholesterol measurement 18 mg/dL 5-40 [facility] LDL calc ser/plasOrdered By: Maryuri Begum on 02-08-2025 Cholesterol in LDL [Mass/Vol] 25 mg/dL [facility] Comment on above: Ixzeejeaua=601-160 m g/dL & Higher Vrmz=299 mg/dL or greater Laboratory - Chemistry and C hemistry - challengeOrdered By: Maryuri Begum on 02-08-2025 AST [Catalytic activity/Vol] 16 U/L <38 [facility] Lipid Profileon 02-08-2025 CHOL:HDL 2.13 Normal [facility] Comment on above: Performed By: #### L 500.3354, L500.6242 #### [facility] [address] [place], [address] Cholesterol [Mass/Vol] 80 mg/dL Normal <=200 [facility] Comment on above: Result Comment: Chol esterol level, Desirable <200 mg/dL Borderline high cholesterol 200-239 mg/dL High cholesterol >=240 mg/dL Recommendations of the NCEP Adult Treatment Panel for the following risk-cutoff thresholds for the [place] population. Performed By: #### L 500.3400, L500.4100 #### [facility] [address], [address] Cholesterol in HDL [Mass/Vol] 38 mg/dL Low [facility] Comment on above: Result Comment: Daphney onal Cholesterol Education Program (NCEP) guidelines: <40 mg/dL: Low HDL-cholesterol (major risk factor for CHD) >= 60 mg/dL: High HDL-cholesterol (negative risk factor for CHD) HDL-cholesterol is affected by a number of factors, e.g. smoking, exercise, hormones, sex and age. Performed By: #### L 500.3400, L500.4100 #### [facility] [address] [place], [address] Cholesterol in LDL [Mass/Vol] 25 mg/dL Normal [facility] Comment on above: Result Comment: Bord erteih=459-743 mg/dL Higher Ssxq=169 mg/dL or greater Performed By: #### L 500.3400, L500.4100 #### [facility] [address] [place], [address] Cholesterol in VLDL [Mass/Vol] 18 mg/dL Normal 5-40 [facility] Comment on above: Performed By: #### L 500.3400, L500.4100 #### [facility] [address] [place], [address] Triglyceride [Mass/Vol] 89 mg/dL Normal [facility] Comment on above: Result Comment: The drugs N-Acetylcysteine and Metamizole may falsely depress this assay. Normal range: <150 mg/dL Borderline High: 150-199 mg/dL High: 200-499 mg/dL Very High: >500 mg/dL Performed By: #### L 500.3400, L500.4100 #### [facility] [address] [place], [address] Liver Profileon 02-08-2025 Albumin [Mass/Vol] 3.9 g/dL Normal 3.4-4.8 [facility] Comment on above: Performed By: #### L 500.3400, L500.4100 #### [facility] [address] [place], [address] ALK PHOS 89 U/L Normal 40-129 [facility] Comment on above: Performed By: #### L 500.3400, L500.4100 #### [facility] [address] [place], [address] ALT [Catalytic activity/Vol] 6 U/L Normal <=46 [facility] Comment on above: Performed By: #### L 500.3400, L500.4100 #### [facility] [address] [place], [address] AST [Catalytic activity/Vol] 16 U/L Normal <=37 [facility] Comment on above: Performed By: #### L 500.3400, L500.4100 #### [facility] [address] [place], [address] Bilirubin [Mass/Vol] 0.48 mg/dL Normal 0.00-1.30 [facility] Comment on above: Performed By: #### L 500.3400, L500.4100 #### [facility] [address] [place], [address] Bilirubin.direct [Mass/Vol] 0.26 mg/dL Normal 0.00-0.30 [facility] Comment on above: Performed By: #### L 500.3400, L500.4100 #### [facility] [address] [place], [address] Globulin (S) [Mass/Vol] 2.5 g/dL Normal 2.2-4.2 [facility] Comment on above: Performed By: #### L 500.3400, L500.4100 #### [facility] [address] [place], [place], [id number] T PROT 6.5 g/dL Normal 5.9-8.4 [facility] Comment on above: Performed By: #### L 500.3400, L500.4100 #### [facility] [address] [place], [place], [address] Screening total cholesterol/ high density lipoprotein (HDL) cholesterol ratioOrdered By: Maryuri Begum on 02-08-2025 Cholesterol.total/Choles terol in HDL [Mass ratio] 2.13 {ratio} [facility] Serum globulin measurementOr dered By: Maryuri Begum on 02-08-2025 Globulin (S) [Mass/Vol] 2.5 g/dL 2.2-4.[address] [facility] Serum or plasma alanine mora otransferase (ALT) measurementOrdered By: Maryuri Begum on 02-08-2025 ALT [Catalytic activity/Vol] 6 U/L <47 [facility] Serum or plasma albumin francisco urement (mass/volume)Ordered By: Maryuri Begum on 02-08-2025 Albumin [Mass/Vol] 3.9 g/dL 3.4-4.8 [facility] Serum or plasma alkaline edna sphatase measurementOrdered By: Maryuri Begum on 02-08-2025 ALP [Catalytic activity/Vol] 89 U/L 40-129 [facility] Serum or plasma cholesterol in HDL measurement (mass/volume)Ordered By: Maryuri Begum on 02-08-2025 Cholesterol in HDL [Mass/Vol] 38 mg/dL Low >40 [facility] Comment on above: National Cholesterol Education Program (NCEP) guidelines:<40 mg/dL: Low HDL-cholesterol (major risk factor for CHD)>= 60 mg/dL: High HDL-cholesterol (negative risk factor for CHD)HDL-cholesterol is affected by a number of factors, e.g. smoking, exercise, hormones, sex and age. Serum or plasma cholesterol measurement (mass/volume)Ordered By: Maryuri Begum on 02-08-2025 Cholesterol [Mass/Vol] 80 mg/dL <201 [facility] Comment on above: Cholesterol level, D esirable <200 mg/dLBorderline high cholesterol 200-239 mg/dLHigh cholesterol >=240 mg/dLRecommendations of the NCEP Adult Treatment Panel for the following risk-cutoff thresholds for the [place] population. Total proteinOrdered By: Terell Begum on 02-08-2025 Protein [Mass/Vol] 6.5 g/dL 5.9-8.4 [facility] Triglycerides measurementOrd ered By: Maryuri Shy on 02-08-2025 Triglyceride [Mass/Vol] 89 mg/dL <[address] [facility] Comment on above: The drugs N-Acetylcy steine and Metamizole may falsely depress this assay. Normal range: <150 mg/dLBorderline High: 150-199 mg/dLHigh: 200-499 mg/dLVery High: >500 mg/dL Neurology Visit Reporton Neurology Visit Report [facility] [address] [facility], [address] [place] [address] OFFICE VISIT Date of Service: 11/29/24 MR#: [id number] Acct: [id number] Name: EKATERINA RANDHAWA Rep #: [id number] : 1940 Provider: Dr. 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 He [...] dysfunction (pseudonormal (more content not included)... Normal [facility] Urgent Care Visit Reporton 0 11-16-2024 Urgent Care Visit Report [facility] [address], [address] [place] [address] OFFICE VISIT Date of Service: 11/16/24 MR#: [id number] Acct: [id number] Name: EKATERINA RANDHAWA Rep #: [id number] : 1940 Provider: DG Manning Age/Sex: 84/M Location: [facility] Status: Signed Intake Vital Signs 03/02/24 08:13 [...] 11/16/24 Hi story gram oral powder packet ([facility]) lisinopril 20 mg tablet 20 mg PO BID #180 tabs 09/19/24 Rx Have you fallen in the past year?: No Nurse's Note: Patient Right ankle is swollen and bruised. Patient states no pain unless you take both hands and squeeze it. Patient states this has been going on for a couple weeks off and on. Patient states he has RLS. 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 Normal [facility] .Auto Diffon 11-01-2024 Basophil, Absolute 0.0 10 3/mcL Normal 0.0-0.2 [facility] Comment on above: Performed By: #### C BC, MDW, MG, ADIFF, GFR, CMP, ANEU #### [facility] [address] [place], [place] [address] Basophils/100 WBC (Bld) 0.6 % Normal 0.0-2.5 [facility] Comment on above: Performed By: #### C LYNSEY, W, MG, ADIFF, GFR, CMP, ANEU #### [address] [address] Eosinophil, Absolute 0.2 10 3/mcL Normal 0.0-0.7 [facility] Comment on above: Performed By: #### C LYNSEY, W, MG, ADIFF, GFR, CMP, ANEU #### [address] [address] Eosinophils/100 WBC (Bld) 2.8 % Normal 0.0-7.0 [facility] Comment on above: Performed By: #### C LYNSEY, KYUNG, MG, ADIFF, GFR, CMP, ANEU #### [address] [address] Lymphocyte, Absolute 1.6 10 3/mcL Normal 0.9-4.3 [facility] Comment on above: Performed By: #### C LYNSEY, W, MG, ADIFF, GFR, CMP, ANEU #### [address] [address] Lymphocytes/100 WBC (Bld) 25.7 % Normal 20.0-40.0 [facility] Comment on above: Performed By: #### C KYUNG MENON, MG, ADIFF, GFR, CMP, ANEU #### [address] [address] Monocyte, Absolute 0.4 10 3/mcL Normal 0.1-1.4 [facility] Comment on above: Performed By: #### C LYNSEY, KYUNG, MG, ADIFF, GFR, CMP, ANEU #### [address] [address] Monocytes/100 WBC (Bld) 6.6 % Normal 2.0-13.0 [facility] Comment on above: Performed By: #### C YLNSEY, W, MG, ADIFF, GFR, CMP, ANEU #### [address] [address] Neutrophils/100 WBC (Bld) 64.3 % Normal 50.0-75.0 [facility] Comment on above: Performed By: #### C KYUNG MENON, MG, ADIFF, GFR, CMP, ANEU #### [address] [address] .GFRon 11-01-2024 Estimated Glomerular Filtration Rate 27 ml/min/1.73sqm Normal [facility] Comment on above: Result Comment: Stages [...] MENON, MG, ADIFF, GFR, CMP, ANEU #### [address] [address] .NEUABSon 11-01-2024 Neutrophil, Absolute 4.0 10 3/mcL Normal 2.3-8.1 [facility] Comment on above: Performed By: #### C KYUNG MENON, MG, ADIFF, GFR, CMP, ANEU #### [address] [address] BMPon 11-01-2024 BUN/Creatinine Ratio 13 ratio Normal 7-27 [facility] Comment on above: Performed By: #### C KYUNG MENON, MG, ADIFF, GFR, CMP, ANEU #### [address] [address] Calcium [Mass/Vol] 9.7 mg/dL Normal 8.4-10.2 [facility] Comment on above: Performed By: #### C KYUNG MENON, MG, ADIFF, GFR, CMP, ANEU #### [address] [address] Chloride [Moles/Vol] 108 mmol/L High 98-107 [facility] Comment on above: Performed By: #### C KYUNG MENON, MG, ADIFF, GFR, CMP, ANEU #### [address] [address] CO2 [Moles/Vol] 29 mmol/L Normal 23-31 [facility] Comment on above: Performed By: #### C KYUNG MENON, MG, ADIFF, GFR, CMP, ANEU #### [address] [address] Creatinine [Mass/Vol] 2.31 mg/dL High 0.70-1.30 [facility] Comment on above: Result Comment: Test ing performed on Siemens Dimension EXL analyzer using a modified kinetic Sonia technique. Performed By: #### C KYUNG MENON, MG, ADIFF, GFR, CMP, ANEU #### [address] [address] Electrolyte Balance 8.0 mEq/L Normal 4.0-15.0 [facility] Comment on above: Performed By: #### C KYUNG MENON, MG, ADIFF, GFR, CMP, ANEU #### [address] [address] Glucose [Mass/Vol] 111 mg/dL High 83-110 [facility] Comment on above: Performed By: #### C KYUNG MENON, MG, ADIFF, GFR, CMP, ANEU #### [address] [address] Potassium [Moles/Vol] 5.0 mmol/L Normal 3.5-5.1 [facility] Comment on above: Performed By: #### C KYUNG MENON, MG, ADIFF, GFR, CMP, ANEU #### [address] [address] Sodium [Moles/Vol] 145 mmol/L Normal 136-145 [facility] Comment on above: Performed By: #### C KYUNG MENON, MG, ADIFF, GFR, CMP, ANEU #### [address] [address] Urea nitrogen [Mass/Vol] 30 mg/dL High 7-18 [facility] Comment on above: Performed By: #### C KYUNG MENON, MG, ADIFF, GFR, CMP, ANEU #### [place] [id number] CBCon 11-01-2024 Erythrocyte distribution width (RBC) [Ratio] 16.6 % High 11.5-15.5 [facility] Comment on above: Performed By: #### C KYUNG MENON, MG, ADIFF, GFR, CMP, ANEU #### [place] [address] Hematocrit (Bld) [Volume fraction] 34.4 % Low 40.0-52.0 [facility] Comment on above: Performed By: #### C KYUNG MENON, MG, ADIFF, GFR, CMP, ANEU #### [place] [address] Hgb 11.5 G/dL Low 13.0-17.5 [facility] Comment on above: Performed By: #### C KYUNG MENON, MG, ADIFF, GFR, CMP, ANEU #### [place] [address] MCH (RBC) [Entitic mass] 29.3 pg Normal 27.0-33.0 [facility] Comment on above: Performed By: #### C KYUNG MENON, MG, ADIFF, GFR, CMP, ANEU #### [place] [address] MCHC 33.4 G/dL Normal 32.0-36.0 [facility] Comment on above: Performed By: #### C KYUNG MENON, MG, ADIFF, GFR, CMP, ANEU #### [place] [address] MCV (RBC) [Entitic vol] 87.9 fL Normal 81.0-100.0 [facility] Comment on above: Performed By: #### C KYUNG MENON, MG, ADIFF, GFR, CMP, ANEU #### [address] [address] Platelet 90 10 3/mcL Low 150-450 [facility] Comment on above: Performed By: #### C KYUNG MENON, MG, ADIFF, GFR, CMP, ANEU #### [address] [address] Platelet mean volume (Bld) [Entitic vol] 7.9 fL Normal 6.4-10.5 [facility] Comment on above: Performed By: #### C KYUNG MENON, MG, ADIFF, GFR, CMP, ANEU #### [address] [address] RBC 3.91 10 6/mcL Low 4.50-6.00 [facility] Comment on above: Performed By: #### C KYUNG MENON, MG, ADIFF, GFR, CMP, ANEU #### [address] [address] WBC 6.2 10 3/mcL Normal 4.5-10.8 [facility] Comment on above: Performed By: #### C KYUNG MENON, MG, ADIFF, GFR, CMP, ANEU #### [address] [address] LABORATORYOrdered By: Leidy Gomez on 11-01-2024 Creatinine (U) [Mass/Vol] 88.0 mg/dL Invalid Interpretation Code AO ADM SS Protein (U) [Mass/Vol] 26 mg/dL Invalid Interpretation Code AO ADM SS U Ratio Prot/Creat 0.3 ratio Invalid Interpretation Code AO Chemistry S LABORATORYOrdered By: [employer] on 11-01-2024 25-hydroxyvitamin D3 [Mass/Vol] 23.4 [...] above: Interpretive Data: T esting performed on [employer] Dimension EXL analyzer using a modified kinetic [...] 11-01-2024 PTH, Intact 194.7 pg/mL High 18.5-88.0 [facility] Comment on above: Performed By: #### C KYUNG MENON, , ADDEMETRIS, GFR, CMP, ANEU #### [address] [address] RPCURon 11-01-2024 U Creatinine 88.0 mg/dL Normal [facility] Comment on above: Performed By: #### R PCUR #### [address] [address] U Protein 26 mg/dL Normal [facility] Comment on above: Performed By: #### R PCUR #### [address] [address] U Ratio Prot/Creat 0.3 ratio Normal [facility] Comment on above: Performed By: #### R PCUR #### [address] [address] URICon 11-01-2024 Uric Acid Lvl 7.2 mg/dL Normal 3.5-7.2 [facility] Comment on above: Performed By: #### C KYUNG MENON, , KHALIDA, GFR, CMP, ANEU #### [address] [address] VIDHon 11-01-2024 Vit. D 25-Hydroxy 23.4 ng/mL Normal [facility] Comment on above: Result Comment: Inte rpretive Values Based on Total 25(OH) Vitamin D: Deficient <20 ng/mL Insufficient 20 - <30 ng/mL Sufficient 30-100 ng/mL Performed By: #### C KYUNG MNEON, , ADDEMETRIS, GFR, CMP, ANEU #### [address] [address] CNOVSPon 09-12-2024 CNOVSP Visit (SP) Office (HEMAWS) ----- EKATERINA RANDHAWA ([id number]) 1940 M Date Time Provider Department 09/12/24 10:30 AM TONEY GUTIERREZ During your visit today, we recorded the following information about you: Temperature Pulse Blood pressure Weight 97.1 degrees 58/minute 128/59 89.4 kg Height 1.727 m Toney Gutierrez MD 09/12/2024 11:04 AM Signed HISTORY OF [...] 58 Temp (Src) 97.1 (Temporal) Ht 5' 8" (1.73m) Wt 197 lb (89.4kg) SpO2 96% BMI 29.96 kg/(m2). GENERAL APPEARANCE: Well appearing, in no acute distress, alert and oriented x3, well-hydrated, well nourished. I spent a total of 30 minutes on the date of the service which included preparing to see the patient, [id number] patient care, completing clinical documentation, obtaining and/or reviewing separately obtained history, counseling and educating the patient/family/caregiver, ordering medications, tests, or procedures, independently interpreting results (not separately reported), and communicating results to the patient/family/caregiver. Electronically Signed: Toney Gutierrez MD September 12, 2024 10:42 AM Referring Provider: JLUIS NICHOLE [[id number]] Allergies As of Date: 09/12/2024 (No Known Allergies) Date Reviewed: 09/12/2024 Reviewed by: Carrie García Ma, MA - Fully Assessed Reason for Visit: New Patient Evaluation [154] Primary Visit Diagnosis:Thrombocytopeni a (HCC) [D69.6] Other Visit Diagnosis:Anemia, unspecified type [D64.9] Order(s):COMPLETE BLOOD COUNT AND DIFFERENTIAL [SQCBCDIF] Order #: [id number] FUTURE ACTIVATED PARTIAL THROMBOPLASTIN TIME [SQPTT] Order #: [id number] FUTURE PROTHROMBIN TIME [SQPT] Order #: [id number] FUTURE Disposition: Return in about 4 months (more content not included)... Normal [facility] .Auto Diffon 08-11-2024 Basophil, Absolute 0.0 10 3/mcL Normal 0.0-0.2 [facility] Comment on above: Performed By: #### C KYUNG MENON, MG, ADIFF, GFR, CMP, ANEU #### [address] [address] Basophils/100 WBC (Bld) 0.6 % Normal 0.0-2.5 [facility] Comment on above: Performed By: #### C KYUNG MENON, MG, ADIFF, GFR, CMP, ANEU #### [address] [address] Eosinophil, Absolute 0.1 10 3/mcL Normal 0.0-0.7 [facility] Comment on above: Performed By: #### C KYUNG MENON, MG, ADIFF, GFR, CMP, ANEU #### [address] [address] Eosinophils/100 WBC (Bld) 1.6 % Normal 0.0-7.0 [facility] Comment on above: Performed By: #### C KYUNG MENON, MG, ADIFF, GFR, CMP, ANEU #### [address] [address] Lymphocyte, Absolute 1.3 10 3/mcL Normal 0.9-4.3 [facility] Comment on above: Performed By: #### C LYNSEY, KYUNG, MG, ADIFF, GFR, CMP, ANEU #### [address] [address] Lymphocytes/100 WBC (Bld) 20.5 % Normal 20.0-40.0 [facility] Comment on above: Performed By: #### C LYNSEY, KYUNG, MG, ADIFF, GFR, CMP, ANEU #### [address] [address] Monocyte, Absolute 0.4 10 3/mcL Normal 0.1-1.4 [facility] Comment on above: Performed By: #### C LYNSEY, KYUNG, MG, ADIFF, GFR, CMP, ANEU #### [address] [address] Monocytes/100 WBC (Bld) 6.7 % Normal 2.0-13.0 [facility] Comment on above: Performed By: #### C KYUNG MENON, MG, ADIFF, GFR, CMP, ANEU #### [address] [address] Neutrophils/100 WBC (Bld) 70.6 % Normal 50.0-75.0 [facility] Comment on above: Performed By: #### C LYNSEY, KYUNG, MG, ADIFF, GFR, CMP, ANEU #### [address] [address] .GFRon 08-11-2024 GFR 33 ml/min/1.73sqm Normal [facility] Comment on above: Result Comment: GFR [...] MENON, MG, ADIFF, GFR, CMP, ANEU #### [address] [address] GFR Non- 27 ml/min/1.73sqm Normal [facility] Comment on above: Result Comment: GFR [...] MENON, MG, ADIFF, GFR, CMP, ANEU #### [address] [address] .NEUABSon 08-11-2024 Neutrophil, Absolute 4.6 10 3/mcL Normal 2.3-8.1 [facility] Comment on above: Performed By: #### C KYUNG MENON, , ADIFF, GFR, CMP, ANEU #### [address] [address] B12on 08-11-2024 Cobalamin (Vitamin B12) [Mass/Vol] 360 pg/mL Normal 211-911 [facility] Comment on above: Performed By: #### C KYUNG MENON, MG, ADIFF, GFR, CMP, ANEU #### [address] [address] CBCon 08-11-2024 Erythrocyte distribution width (RBC) [Ratio] 15.2 % Normal 11.5-15.5 [facility] Comment on above: Performed By: #### C KYUNG MENON, MG, ADIFF, GFR, CMP, ANEU #### [place] [address] Hematocrit (Bld) [Volume fraction] 34.5 % Low 40.0-52.0 [facility] Comment on above: Performed By: #### C KYUNG MENON, MG, ADIFF, GFR, CMP, ANEU #### [place] [address] Hgb 11.4 G/dL Low 13.0-17.5 [facility] Comment on above: Performed By: #### C KYUNG MENON, MG, ADIFF, GFR, CMP, ANEU #### [place] [address] MCH (RBC) [Entitic mass] 29.4 pg Normal 27.0-33.0 [facility] Comment on above: Performed By: #### C KYUNG MEONN, MG, ADIFF, GFR, CMP, ANEU #### [place] [address] MCHC 33.1 G/dL Normal 32.0-36.0 [facility] Comment on above: Performed By: #### C KYUNG MENON, MG, ADIFF, GFR, CMP, ANEU #### [place] [address] MCV (RBC) [Entitic vol] 88.9 fL Normal 81.0-100.0 [facility] Comment on above: Performed By: #### C KYUNG MENON, MG, ADIFF, GFR, CMP, ANEU #### [address] [address] Platelet 91 10 3/mcL Low 150-450 [facility] Comment on above: Performed By: #### C KYUNG MENON, MG, ADIFF, GFR, CMP, ANEU #### [place] [address] Platelet mean volume (Bld) [Entitic vol] 7.6 fL Normal 6.4-10.5 [facility] Comment on above: Performed By: #### C KYUNG MENON, MG, ADIFF, GFR, CMP, ANEU #### [address] [address] RBC 3.88 10 6/mcL Low 4.50-6.00 [facility] Comment on above: Performed By: #### C KYUNG MENON, MG, ADIFF, GFR, CMP, ANEU #### [address] [address] WBC 6.5 10 3/mcL Normal 4.5-10.8 [facility] Comment on above: Performed By: #### C KYUNG MENON, MG, ADIFF, GFR, CMP, ANEU #### [address] [address] CMPon 08-11-2024 Albumin Level 4.0 G/dL Normal 3.4-4.8 [facility] Comment on above: Performed By: #### C KYUNG MENON, MG, ADIFF, GFR, CMP, ANEU #### [address] [address] Albumin/Globulin [Mass ratio] 1.7 {ratio} Normal 1.1-2.5 [facility] Comment on above: Performed By: #### C KYUNG MENON, MG, ADIFF, GFR, CMP, ANEU #### [address] [address] ALP [Catalytic activity/Vol] 72 U/L Normal 40-135 [facility] Comment on above: Performed By: #### C KYUNG MENON, MG, ADIFF, GFR, CMP, ANEU #### [address] [address] ALT [Catalytic activity/Vol] 17 U/L Normal 16-63 [facility] Comment on above: Performed By: #### C KYUNG MENON, MG, ADIFF, GFR, CMP, ANEU #### [address] [address] AST [Catalytic activity/Vol] 14 U/L Normal 10-40 [facility] Comment on above: Performed By: #### C KYUNG MENON, MG, ADIFF, GFR, CMP, ANEU #### [address] [address] Bili Total 0.7 mg/dL Normal 0.2-1.0 [facility] Comment on above: Result Comment: Use of this assay is not recommended for patients undergoing treatment with eltrombopag due to the potential for falsely elevated results. Performed By: #### C LYNSEY, KYUNG, MG, ADIFF, GFR, CMP, ANEU #### [address] [address] BUN/Creatinine Ratio 12 ratio Normal 7-27 [facility] Comment on above: Performed By: #### C KYUNG MENON, MG, ADIFF, GFR, CMP, ANEU #### [address] [address] Calcium [Mass/Vol] 8.9 mg/dL Normal 8.4-10.2 [facility] Comment on above: Performed By: #### C KYUNG MENON, MG, ADIFF, GFR, CMP, ANEU #### [address] [address] Chloride [Moles/Vol] 107 mmol/L Normal 98-107 [facility] Comment on above: Performed By: #### C KYUNG MENON, MG, ADIFF, GFR, CMP, ANEU #### [address] [address] CO2 [Moles/Vol] 26 mmol/L Normal 23-31 [facility] Comment on above: Performed By: #### C KYUNG MENON, MG, ADIFF, GFR, CMP, ANEU #### [address] [address] Creatinine [Mass/Vol] 2.31 mg/dL High 0.70-1.30 [facility] Comment on above: Result Comment: Test ing performed on Siem[employer] Dimension EXL analyzer using a modified kinetic Sonia technique. Performed By: #### C KYUNG MENON, MG, ADIFF, GFR, CMP, ANEU #### [address] [address] Electrolyte Balance 9.0 mEq/L Normal 4.0-15.0 [facility] Comment on above: Performed By: #### C LYNSEY, KYUNG, MG, ADIFF, GFR, CMP, ANEU #### [address] [address] Globulin 2.4 G/dL Normal [facility] Comment on above: Performed By: #### C LYNSEY, W, MG, ADIFF, GFR, CMP, ANEU #### [address] [address] Glucose [Mass/Vol] 111 mg/dL High 83-110 [facility] Comment on above: Performed By: #### C LYNSEY, W, MG, ADIFF, GFR, CMP, ANEU #### [address] [address] Potassium [Moles/Vol] 4.7 mmol/L Normal 3.5-5.1 [facility] Comment on above: Performed By: #### C LYNSEY, KYUNG, MG, ADIFF, GFR, CMP, ANEU #### [address] [address] Sodium [Moles/Vol] 142 mmol/L Normal 136-145 [facility] Comment on above: Performed By: #### C LYNSEY, W, MG, ADIFF, GFR, CMP, ANEU #### [address] [address] Total Protein 6.4 G/dL Normal 6.4-8.2 [facility] Comment on above: Performed By: #### C LYNSEY, KYUNG, MG, ADIFF, GFR, CMP, ANEU #### [address] [address] Urea nitrogen [Mass/Vol] 28 mg/dL High 7-18 [facility] Comment on above: Performed By: #### C LYNSEY, W, MG, ADIFF, GFR, CMP, ANEU #### [address] [address] Jose 11-22-2024 Ferritin [Mass/Vol] 28.0 ng/mL Normal 26.0-388.0 [facility] Comment on above: Performed By: #### C KYUNG MENON, , ADIFF, GFR, CMP, ANEU #### [place] [address] FESon 08-11-2024 Iron [Mass/Vol] 83 ug/dL Normal 65-175 [facility] Comment on above: Performed By: #### C KYUNG MENON, MG, ADIFF, GFR, CMP, ANEU #### [place] [address] Iron Sat 26 % Normal [facility] Comment on above: Performed By: #### C KYUNG MENON, , ADIFF, GFR, CMP, ANEU #### [place] [address] TIBC 316 mcg/dL Normal 250-450 [facility] Comment on above: Performed By: #### C KYUNG MENON, MG, ADIFF, GFR, CMP, ANEU #### [place] [address] HCVon 08-11-2024 Hep C Ab Non-Reactive Normal Non-Reacti ve [facility] Comment on above: Performed By: #### C KYUNG MENON, , ADIFF, GFR, CMP, ANEU #### [place] [address] Hep C Ab Int Normal [facility] Comment on above: Result Comment: Nonr [...] MENON, MG, ADIFF, GFR, CMP, ANEU #### [place] [address] LABORATORYOrdered By: SYSTEM SYSTEM on 08-11-2024 Albumin [...] 08-11-2024 Cholesterol [Mass/Vol] 78 mg/dL Normal 0-200 [facility] Comment on above: Result Comment: Chol esterol Reference Interval: Less than 200 Desirable 200-239 Borderline high risk 240 and above High risk Performed By: #### C BC, MDW, MG, ADIFF, GFR, CMP, ANEU #### [place] [address] [place], [place] [address] Cholesterol in HDL [Mass/Vol] 35 mg/dL Low 40-60 [facility] Comment on above: Performed By: #### C KYUNG MENON, MG, ADIFF, GFR, CMP, ANEU #### [address] [address] Cholesterol in LDL [Mass/Vol] 27 mg/dL Normal 0-130 [facility] Comment on above: Performed By: #### C LYNSEY, KYUNG, MG, ADIFF, GFR, CMP, ANEU #### [address] [address] Triglyceride [Mass/Vol] 79 mg/dL Normal 0-150 [facility] Comment on above: Result Comment: Trig lyceride Reference Interval: Less than 150 Normal 150-199 Borderline high risk 200-499 High risk 500 or higher Very high risk Performed By: #### C KYUNG MENON, MG, ADIFF, GFR, CMP, ANEU #### [place] [address] MGon 08-11-2024 Magnesium [Mass/Vol] 1.7 mg/dL Low 1.8-2.4 [facility] Comment on above: Performed By: #### C KYUNG MENON, MG, ADIFF, GFR, CMP, ANEU #### [place] [address] PBNPon 08-11-2024 Natriuretic peptide B (Bld) [Mass/Vol] 1518 pg/mL High 0-450 [facility] Comment on above: Result Comment: NT-p roBNP results of less than 300 pg/mL effectively rules out acute congestive heart failure with 99% negative predictive value. Performed By: #### C KYUNG MENON, MG, ADIFF, GFR, CMP, ANEU #### [place] [address] LABORATORYOrdered By: SYSTEM SYSTEM on 07-07-2024 25-hydroxyvitamin [...] above: Interpretive Data: T esting performed on [employer] Dimension EXL analyzer using a modified kinetic [...] Basophil, Absolute 0.1 10 3/mcL Normal 0.0-0.2 [facility] ([place]) Comment on above: Performed By: #### A DIFF, BMP, ANEU, VIDH, URIC, CBC, GFR #### [address] [address] #### PTH #### [address] [address] Basophils/100 WBC (Bld) 0.7 % Normal 0.0-2.5 [facility] ([place]) Comment on above: Performed By: #### A DIFF, BMP, ANEU, VIDH, URIC, CBC, GFR #### [place] [address] #### PTH #### [address] [address] Eosinophil, Absolute 0.2 10 3/mcL Normal 0.0-0.4 [facility] ([place]) Comment on above: Performed By: #### A DIFF, BMP, ANEU, VIDH, URIC, CBC, GFR #### [place] [address] #### PTH #### [address] [address] Eosinophils/100 WBC (Bld) 2.1 % Normal 0.0-7.0 [facility] ([place]) Comment on above: Performed By: #### A DIFF, BMP, ANEU, VIDH, URIC, CBC, GFR #### [place] [address] #### PTH #### [address] [address] Lymphocyte, Absolute 2.0 10 3/mcL Normal 0.8-3.9 [facility] ([place]) Comment on above: Performed By: #### A DIFF, BMP, ANEU, VIDH, URIC, CBC, GFR #### [place] [address] #### PTH #### [address] [address] Lymphocytes/100 WBC (Bld) 25.0 % Normal 10.0-50.0 [facility] ([place]) Comment on above: Performed By: #### A DIFF, BMP, ANEU, VIDH, URIC, CBC, GFR #### [place] [address] #### PTH #### [address] [address] Monocyte, Absolute 0.5 10 3/mcL Normal 0.2-1.0 [facility] ([place]) Comment on above: Performed By: #### A DIFF, BMP, ANEU, VIDH, URIC, CBC, GFR #### [place] [address] #### PTH #### [address] [address] Monocytes/100 WBC (Bld) 6.0 % Normal 1.7-13.0 [facility] ([place]) Comment on above: Performed By: #### A DIFF, BMP, ANEU, VIDH, URIC, CBC, GFR #### [address] [address] #### PTH #### [address] [address] Neutrophils/100 WBC (Bld) 66.2 % Normal 37.0-80.0 [facility] ([place]) Comment on above: Performed By: #### A DIFF, BMP, ANEU, VIDH, URIC, CBC, GFR #### [address] [address] #### PTH #### [address] [address] .GFRon 02-21-2024 GFR Non- 21 ml/min/1.73sqm Normal [facility] ([place]) Comment on above: Result Comment: GFR [...] BMP, ANEU, VIDH, URIC, CBC, GFR #### [address] [address] #### PTH #### [address] [address] GFR 26 ml/min/1.73sqm Normal [facility] ([place]) Comment on above: Result Comment: GFR Population [...] BMP, ANEU, VIDH, URIC, CBC, GFR #### [place] [address] #### PTH #### [address] [address] .NEUABSon 02-21-2024 Neutrophil, Absolute 5.2 10 3/mcL Normal 2.9-6.2 [facility]) Comment on above: Performed By: #### A DIFF, BMP, ANEU, VIDH, URIC, CBC, GFR #### [place] [address] #### PTH #### [address] [address] BUN/Creatinine Ratio 13 ratio Normal 7-27 [facility] ([place]) Comment on above: Performed By: #### A DIFF, BMP, ANEU, VIDH, URIC, CBC, GFR #### [place] [address] #### PTH #### [address] [address] Calcium [Mass/Vol] 10.1 mg/dL Normal 8.4-10.2 [facility] [place] Comment on above: Performed By: #### A DIFF, BMP, ANEU, VIDH, URIC, CBC, GFR #### [place] [address] #### PTH #### [address] [address] Chloride [Moles/Vol] 105 mmol/L Normal 98-107 [facility] ([place]) Comment on above: Performed By: #### A DIFF, BMP, ANEU, VIDH, URIC, CBC, GFR #### [address] [address] #### PTH #### [address] [address] CO2 [Moles/Vol] 29 mmol/L Normal 23-31 [facility] ([place]) Comment on above: Performed By: #### A DIFF, BMP, ANEU, VIDH, URIC, CBC, GFR #### [address] [address] #### PTH #### [address] [address] Creatinine [Mass/Vol] 2.85 mg/dL High 0.70-1.30 [facility] ([place]) Comment on above: Performed By: #### A DIFF, BMP, ANEU, VIDH, URIC, CBC, GFR #### [address] [address] #### PTH #### [address] [address] Electrolyte Balance 8.0 mEq/L Normal 4.0-15.0 [facility] [place] Comment on above: Performed By: #### A DIFF, BMP, ANEU, VIDH, URIC, CBC, GFR #### [address] [address] #### PTH #### [address] [address] Glucose [Mass/Vol] 120 mg/dL High 83-110 [facility] [place] Comment on above: Performed By: #### A DIFF, BMP, ANEU, VIDH, URIC, CBC, GFR #### [address] [address] #### PTH #### [address] [address] Potassium [Moles/Vol] 5.0 mmol/L Normal 3.5-5.1 [facility] ([place]) Comment on above: Performed By: #### A DIFF, BMP, ANEU, VIDH, URIC, CBC, GFR #### [address] [address] #### PTH #### [place] [address] Sodium [Moles/Vol] 142 mmol/L Normal 136-145 [facility] [place] Comment on above: Performed By: #### A DIFF, BMP, ANEU, VIDH, URIC, CBC, GFR #### [place] [address] #### PTH #### [place] [address] Urea nitrogen [Mass/Vol] 36 mg/dL High 7-18 [facility] ([place] Comment on above: Performed By: #### A DIFF, BMP, ANEU, VIDH, URIC, CBC, GFR #### [place] [address] #### PTH #### [place] [address] CBCon 02-21-2024 Erythrocyte distribution width (RBC) [Ratio] 14.8 % High 11.5-14.5 [facility] ([place]) Comment on above: Performed By: #### A DIFF, BMP, ANEU, VIDH, URIC, CBC, GFR #### [place] [address] #### PTH #### [place] [address] Hematocrit (Bld) [Volume fraction] 34.7 % Low 42.0-52.0 [facility] ([place] Comment on above: Performed By: #### A DIFF, BMP, ANEU, VIDH, URIC, CBC, GFR #### [place] [address] #### PTH #### [place] [address] Hgb 11.4 G/dL Low 14.0-18.0 [facility] ([place] Comment on above: Performed By: #### A DIFF, BMP, ANEU, VIDH, URIC, CBC, GFR #### [place] [address] #### PTH #### [place] [address] MCH (RBC) [Entitic mass] 28.3 pg Normal 27.0-31.2 [facility] ([place] Comment on above: Performed By: #### A DIFF, BMP, ANEU, VIDH, URIC, CBC, GFR #### [place] [address] #### PTH #### [place] [address] MCHC 32.8 G/dL Normal 31.8-35.4 [facility] ([place] Comment on above: Performed By: #### A DIFF, BMP, ANEU, VIDH, URIC, CBC, GFR #### [place] [address] #### PTH #### [place] [address] MCV (RBC) [Entitic vol] 86.4 fL Normal 80.0-94.0 [facility] ([place]) Comment on above: Performed By: #### A DIFF, BMP, ANEU, VIDH, URIC, CBC, GFR #### [place] [address] #### PTH #### [place] [address] Platelet 93 10 3/mcL Low 130-400 [facility] ([place] Comment on above: Performed By: #### A DIFF, BMP, ANEU, VIDH, URIC, CBC, GFR #### [place] [address] #### PTH #### [place] [address] Platelet mean volume (Bld) [Entitic vol] 8.2 fL Normal 7.4-10.4 [facility] ([place] Comment on above: Performed By: #### A DIFF, BMP, ANEU, VIDH, URIC, CBC, GFR #### [place] [address] #### PTH #### [place] [address] RBC 4.01 10 6/mcL Low 4.04-6.13 [facility] ([place] Comment on above: Performed By: #### A DIFF, BMP, ANEU, VIDH, URIC, CBC, GFR #### [place] [address] #### PTH #### [place] [address] WBC 7.8 10 3/mcL Normal 4.6-10.8 [facility] ([place] Comment on above: Performed By: #### A DIFF, BMP, ANEU, VIDH, URIC, CBC, GFR #### [place] [address] #### PTH #### [place] [address] CRURon 02-21-2024 U Creatinine 98.9 mg/dL Normal 39.0-259.0 [facility] ([place] Comment on above: Performed By: #### A DIFF, BMP, ANEU, VIDH, URIC, CBC, GFR #### [place] [address] #### PTH #### [place] [address] LABORATORYOrdered By: SYSTEM SYSTEM on 02-21-2024 Creatinine [...] 02-21-2024 U Protein 18 mg/dL High 0-11 [facility] ([place] Comment on above: Performed By: #### A DIFF, BMP, ANEU, VIDH, URIC, CBC, GFR #### [place] [address] #### PTH #### [place] [address] PTHon 02-21-2024 PTH, Intact 32.4 pg/mL Normal 18.5-88.0 [facility] ([place] Comment on above: Performed By: #### A DIFF, BMP, ANEU, VIDH, URIC, CBC, GFR #### [place] [address] #### PTH #### [place] [address] URICon 02-21-2024 Uric Acid Lvl 8.8 mg/dL High 3.5-7.2 [facility] ([place] Comment on above: Performed By: #### A DIFF, BMP, ANEU, VIDH, URIC, CBC, GFR #### [address] [address] #### PTH #### [place] [address] VIDHon 02-21-2024 Vit. D 25-Hydroxy 24.2 ng/mL Normal [facility] ([place]) Comment on above: Result Comment: Inte rpretive Values Based on Total 25(OH) Vitamin D: Deficient <20 ng/mL Insufficient 20 - <30 ng/mL Sufficient 30-100 ng/mL Performed By: #### A DIFF, BMP, ANEU, VIDH, URIC, CBC, GFR #### [place] [address] #### PTH #### [place] [address] .Auto Diffon 10-27-2023 Basophil, Absolute 0.1 10 3/mcL Normal 0.0-0.2 [facility] ([place]) Comment on above: Performed By: #### A DIFF, BMP, ANEU, VIDH, URIC, CBC, GFR #### [place] [address] #### PTH #### [place] [address] Basophils/100 WBC (Bld) 0.8 % Normal 0.0-2.5 [facility] ([place]) Comment on above: Performed By: #### A DIFF, BMP, ANEU, VIDH, URIC, CBC, GFR #### [place] [address] #### PTH #### [place] [address] Eosinophil, Absolute 0.2 10 3/mcL Normal 0.0-0.4 [facility] ([place]) Comment on above: Performed By: #### A DIFF, BMP, ANEU, VIDH, URIC, CBC, GFR #### [place] [address] #### PTH #### [place] [address] Eosinophils/100 WBC (Bld) 3.1 % Normal 0.0-7.0 [facility] ([place] Comment on above: Performed By: #### A DIFF, BMP, ANEU, VIDH, URIC, CBC, GFR #### [address] [address] #### PTH #### [address] [address] Lymphocyte, Absolute 1.9 10 3/mcL Normal 0.8-3.9 [facility] ([place]) Comment on above: Performed By: #### A DIFF, BMP, ANEU, VIDH, URIC, CBC, GFR #### [address] [address] #### PTH #### [address] [address] Lymphocytes/100 WBC (Bld) 26.5 % Normal 10.0-50.0 [facility] ([place] Comment on above: Performed By: #### A DIFF, BMP, ANEU, VIDH, URIC, CBC, GFR #### [address] [address] #### PTH #### [address] [address] Monocyte, Absolute 0.4 10 3/mcL Normal 0.2-1.0 [facility] ([place]) Comment on above: Performed By: #### A DIFF, BMP, ANEU, VIDH, URIC, CBC, GFR #### [address] [address] #### PTH #### [address] [address] Monocytes/100 WBC (Bld) 6.0 % Normal 1.7-13.0 [facility] ([place]) Comment on above: Performed By: #### A DIFF, BMP, ANEU, VIDH, URIC, CBC, GFR #### [address] [address] #### PTH #### [address] [address] Neutrophils/100 WBC (Bld) 63.6 % Normal 37.0-80.0 [facility] ([place]) Comment on above: Performed By: #### A DIFF, BMP, ANEU, VIDH, URIC, CBC, GFR #### [address] [address] #### PTH #### [address] [address] .GFRon 10-27-2023 GFR 29 ml/min/1.73sqm Normal [facility] ([place]) Comment on above: Result Comment: GFR Population [...] BMP, ANEU, VIDH, URIC, CBC, GFR #### [address] [address] #### PTH #### [address] [address] GFR Non- 24 ml/min/1.73sqm Normal [facility] ([place]) Comment on above: Result Comment: GFR Population [...] BMP, ANEU, VIDH, URIC, CBC, GFR #### [address] [address] #### PTH #### [address] [address] .NEUABSon 10-27-2023 Neutrophil, Absolute 4.5 10 3/mcL Normal 2.9-6.2 [facility] ([place]) Comment on above: Performed By: #### A DIFF, BMP, ANEU, VIDH, URIC, CBC, GFR #### [place] [address] #### PTH #### [address] [address] BMPon 10-27-2023 BUN/Creatinine Ratio 13 ratio Normal 7-27 [facility] ([place]) Comment on above: Performed By: #### A DIFF, BMP, ANEU, VIDH, URIC, CBC, GFR #### [place] [address] #### PTH #### [place] [address] Calcium [Mass/Vol] 9.6 mg/dL Normal 8.4-10.2 [facility] [place] Comment on above: Performed By: #### A DIFF, BMP, ANEU, VIDH, URIC, CBC, GFR #### [place] [address] #### PTH #### [place] [address] Chloride [Moles/Vol] 107 mmol/L Normal 98-107 [facility] ([place]) Comment on above: Performed By: #### A DIFF, BMP, ANEU, VIDH, URIC, CBC, GFR #### [place] [address] #### PTH #### [place] [address] CO2 [Moles/Vol] 29 mmol/L Normal 23-31 [facility] ([place]) Comment on above: Performed By: #### A DIFF, BMP, ANEU, VIDH, URIC, CBC, GFR #### [place] [address] #### PTH #### [address] [address] Creatinine [Mass/Vol] 2.58 mg/dL High 0.70-1.30 [facility] ([place]) Comment on above: Performed By: #### A DIFF, BMP, ANEU, VIDH, URIC, CBC, GFR #### [address] [address] #### PTH #### [address] [address] Electrolyte Balance 7.0 mEq/L Normal 4.0-15.0 [facility] [place] Comment on above: Performed By: #### A DIFF, BMP, ANEU, VIDH, URIC, CBC, GFR #### [place] [address] #### PTH #### [place] [address] Glucose [Mass/Vol] 113 mg/dL High 83-110 [facility] [place] Comment on above: Performed By: #### A DIFF, BMP, ANEU, VIDH, URIC, CBC, GFR #### [place] [address] #### PTH #### [address] [address] Potassium [Moles/Vol] 4.0 mmol/L Normal 3.5-5.1 [facility] ([place]) Comment on above: Performed By: #### A DIFF, BMP, ANEU, VIDH, URIC, CBC, GFR #### [place] [place] [address] #### PTH #### [place] [address] Sodium [Moles/Vol] 143 mmol/L Normal 136-145 [facility] [place] Comment on above: Performed By: #### A DIFF, BMP, ANEU, VIDH, URIC, CBC, GFR #### [place] [address] #### PTH #### [address] [address] Urea nitrogen [Mass/Vol] 34 mg/dL High 7-18 [facility] ([place]) Comment on above: Performed By: #### A DIFF, BMP, ANEU, VIDH, URIC, CBC, GFR #### [address] [address] #### PTH #### [address] [address] CBCon 10-27-2023 Erythrocyte distribution width (RBC) [Ratio] 15.1 % High 11.5-14.5 [facility] ([place]) Comment on above: Performed By: #### A DIFF, BMP, ANEU, VIDH, URIC, CBC, GFR #### [place] [address] #### PTH #### [place] [address] Hematocrit (Bld) [Volume fraction] 32.2 % Low 42.0-52.0 [facility] ([place] Comment on above: Performed By: #### A DIFF, BMP, ANEU, VIDH, URIC, CBC, GFR #### [place] [address] #### PTH #### [place] [address] Hgb 10.9 G/dL Low 14.0-18.0 [facility] ([place]) Comment on above: Performed By: #### A DIFF, BMP, ANEU, VIDH, URIC, CBC, GFR #### [place] [address] #### PTH #### [address] [address] MCH (RBC) [Entitic mass] 29.1 pg Normal 27.0-31.2 [facility] ([place] Comment on above: Performed By: #### A DIFF, BMP, ANEU, VIDH, URIC, CBC, GFR #### [place] [address] #### PTH #### [address] [address] MCHC 33.8 G/dL Normal 31.8-35.4 [facility] ([place] Comment on above: Performed By: #### A DIFF, BMP, ANEU, VIDH, URIC, CBC, GFR #### [place] [address] #### PTH #### [place] [address] MCV (RBC) [Entitic vol] 86.0 fL Normal 80.0-94.0 [facility] ([place]) Comment on above: Performed By: #### A DIFF, BMP, ANEU, VIDH, URIC, CBC, GFR #### [place] [address] #### PTH #### [place] [address] Platelet 101 10 3/mcL Low 130-400 [facility] ([place]) Comment on above: Performed By: #### A DIFF, BMP, ANEU, VIDH, URIC, CBC, GFR #### [place] [address] #### PTH #### [place] [address] Platelet mean volume (Bld) [Entitic vol] 7.7 fL Normal 7.4-10.4 [facility] ([place] Comment on above: Performed By: #### A DIFF, BMP, ANEU, VIDH, URIC, CBC, GFR #### [place] [address] #### PTH #### [place] [address] RBC 3.74 10 6/mcL Low 4.04-6.13 [facility] ([place] Comment on above: Performed By: #### A DIFF, BMP, ANEU, VIDH, URIC, CBC, GFR #### [place] [address] #### PTH #### [place] [address] WBC 7.0 10 3/mcL Normal 4.6-10.8 [facility] ([place] Comment on above: Performed By: #### A DIFF, BMP, ANEU, VIDH, URIC, CBC, GFR #### [address] [address] #### PTH #### [place] [address] CRURon 10-27-2023 U Creatinine 107.8 mg/dL Normal 39.0-259.0 [facility] ([place] Comment on above: Performed By: #### A DIFF, BMP, ANEU, VIDH, URIC, CBC, GFR #### [place] [address] #### PTH #### [place] [address] PRURon 10-27-2023 U Protein 22 mg/dL High 0-11 [facility] ([place] Comment on above: Performed By: #### A DIFF, BMP, ANEU, VIDH, URIC, CBC, GFR #### [place] [address] #### PTH #### [place] [address] PTHon 10-27-2023 PTH, Intact 48.1 pg/mL Normal 18.5-88.0 [facility] ([place] Comment on above: Performed By: #### A DIFF, BMP, ANEU, VIDH, URIC, CBC, GFR #### [place] [address] #### PTH #### [place] [address] URICon 10-27-2023 Uric Acid Lvl 8.0 mg/dL High 3.5-7.2 [facility] ([place]) Comment on above: Performed By: #### A DIFF, BMP, ANEU, VIDH, URIC, CBC, GFR #### [place] [address] #### PTH #### [place] [address] VIDHon 10-27-2023 Vit. D 25-Hydroxy 29.2 ng/mL Normal [facility] ([place]) Comment on above: Result Comment: Inte rpretive Values Based on Total 25(OH) Vitamin D: Deficient <20 ng/mL Insufficient 20 - <30 ng/mL Sufficient 30-100 ng/mL Performed By: #### A DIFF, BMP, ANEU, VIDH, URIC, CBC, GFR #### [place] [id number] #### PTH #### [address] [address] VIDDHon 06-10-2023 Vit. D 1,25 Dihydro. 25.6 pg/mL Normal 19.9-79.3 [facility] ([place]) Comment on above: Result Comment: Perf ormed By: [facility] [employer] [address] [place] [address] Locker Attendant: Matthew Cheek IIIIA#: [id number] Performed By: #### A DIFF, BMP, ANEU, VIDH, URIC, CBC, GFR #### [place] [address] #### PTH #### [address] [address] .Auto Diffon 06-09-2023 Basophil, Absolute 0.1 10 3/mcL Normal 0.0-0.2 [facility] ([place]) Comment on above: Performed By: #### A DIFF, BMP, ANEU, VIDH, URIC, CBC, GFR #### [place] [address] #### PTH #### [address] [address] Basophils/100 WBC (Bld) 0.8 % Normal 0.0-2.5 [facility] ([place]) Comment on above: Performed By: #### A DIFF, BMP, ANEU, VIDH, URIC, CBC, GFR #### [place] [address] #### PTH #### [address] [address] Eosinophil, Absolute 0.3 10 3/mcL Normal 0.0-0.4 [facility] ([place]) Comment on above: Performed By: #### A DIFF, BMP, ANEU, VIDH, URIC, CBC, GFR #### [address] [address] #### PTH #### [address] [address] Eosinophils/100 WBC (Bld) 3.8 % Normal 0.0-7.0 [facility] ([place]) Comment on above: Performed By: #### A DIFF, BMP, ANEU, VIDH, URIC, CBC, GFR #### [address] [address] #### PTH #### [address] [address] Lymphocyte, Absolute 1.9 10 3/mcL Normal 0.8-3.9 [facility] ([place]) Comment on above: Performed By: #### A DIFF, BMP, ANEU, VIDH, URIC, CBC, GFR #### [address] [address] #### PTH #### [address] [address] Lymphocytes/100 WBC (Bld) 27.1 % Normal 10.0-50.0 [facility] ([place]) Comment on above: Performed By: #### A DIFF, BMP, ANEU, VIDH, URIC, CBC, GFR #### [place] [address] #### PTH #### [address] [address] Monocyte, Absolute 0.4 10 3/mcL Normal 0.2-1.0 [facility] ([place]) Comment on above: Performed By: #### A DIFF, BMP, ANEU, VIDH, URIC, CBC, GFR #### [address] [address] #### PTH #### [address] [address] Monocytes/100 WBC (Bld) 5.6 % Normal 1.7-13.0 [facility] ([place]) Comment on above: Performed By: #### A DIFF, BMP, ANEU, VIDH, URIC, CBC, GFR #### [address] [address] #### PTH #### [address] [address] Neutrophils/100 WBC (Bld) 62.7 % Normal 37.0-80.0 [facility] ([place]) Comment on above: Performed By: #### A DIFF, BMP, ANEU, VIDH, URIC, CBC, GFR #### [address] [address] #### PTH #### [address] [address] .GFRon 06-09-2023 GFR Non- 20 ml/min/1.73sqm Normal [facility] ([place]) Comment on above: Result Comment: GFR Population [...] BMP, ANEU, VIDH, URIC, CBC, GFR #### [address] [address] #### PTH #### [address] [address] GFR 25 ml/min/1.73sqm Normal [facility] ([place]) Comment on above: Result Comment: GFR Population [...] BMP, ANEU, VIDH, URIC, CBC, GFR #### [place] [address] #### PTH #### [address] [address] .NEUABSon 06-09-2023 Neutrophil, Absolute 4.3 10 3/mcL Normal 2.9-6.2 [facility] ([place]) Comment on above: Performed By: #### A DIFF, BMP, ANEU, VIDH, URIC, CBC, GFR #### [place] [address] #### PTH #### [id number] [place] [address] 06-09-2023 BUN/Creatinine Ratio 11 ratio Normal 7-27 [facility] ([place]) Comment on above: Performed By: #### A DIFF, BMP, ANEU, VIDH, URIC, CBC, GFR #### [place] [address] #### PTH #### [address] [address] Calcium [Mass/Vol] 9.8 mg/dL Normal 8.4-10.2 [facility] [place] Comment on above: Performed By: #### A DIFF, BMP, ANEU, VIDH, URIC, CBC, GFR #### [address] [address] #### PTH #### [address] [address] Chloride [Moles/Vol] 107 mmol/L Normal 98-107 [facility] ([place]) Comment on above: Performed By: #### A DIFF, BMP, ANEU, VIDH, URIC, CBC, GFR #### [address] [address] #### PTH #### [address] [address] CO2 [Moles/Vol] 31 mmol/L Normal 23-31 [facility] ([place] Comment on above: Performed By: #### A DIFF, BMP, ANEU, VIDH, URIC, CBC, GFR #### [place] [address] #### PTH #### [address] [address] Creatinine [Mass/Vol] 2.98 mg/dL High 0.70-1.30 [facility] ([place]) Comment on above: Performed By: #### A DIFF, BMP, ANEU, VIDH, URIC, CBC, GFR #### [place] [address] #### PTH #### [address] [address] Electrolyte Balance 6.0 mEq/L Normal 4.0-15.0 [facility] [place] Comment on above: Performed By: #### A DIFF, BMP, ANEU, VIDH, URIC, CBC, GFR #### [place] [address] #### PTH #### [address] [address] Glucose [Mass/Vol] 106 mg/dL Normal 83-110 [facility] [place] Comment on above: Performed By: #### A DIFF, BMP, ANEU, VIDH, URIC, CBC, GFR #### [place] [address] #### PTH #### [address] [address] Potassium [Moles/Vol] 5.0 mmol/L Normal 3.5-5.1 [facility] ([place]) Comment on above: Performed By: #### A DIFF, BMP, ANEU, VIDH, URIC, CBC, GFR #### [address] [address] #### PTH #### [address] [address] Sodium [Moles/Vol] 144 mmol/L Normal 136-145 [facility] [place] Comment on above: Performed By: #### A DIFF, BMP, ANEU, VIDH, URIC, CBC, GFR #### [place] [address] #### PTH #### [address] [address] Urea nitrogen [Mass/Vol] 32 mg/dL High 7-18 [facility] ([place]) Comment on above: Performed By: #### A DIFF, BMP, ANEU, VIDH, URIC, CBC, GFR #### [place] [address] #### PTH #### [address] [address] CBCon 06-09-2023 Erythrocyte distribution width (RBC) [Ratio] 15.0 % High 11.5-14.5 [facility] ([place]) Comment on above: Performed By: #### A DIFF, BMP, ANEU, VIDH, URIC, CBC, GFR #### [place] [address] #### PTH #### [address] [address] Hematocrit (Bld) [Volume fraction] 32.1 % Low 42.0-52.0 [facility] ([place] Comment on above: Performed By: #### A DIFF, BMP, ANEU, VIDH, URIC, CBC, GFR #### [place] [address] #### PTH #### [address] [address] Hgb 10.7 G/dL Low 14.0-18.0 [facility] ([place] Comment on above: Performed By: #### A DIFF, BMP, ANEU, VIDH, URIC, CBC, GFR #### [place] [address] #### PTH #### [place] [address] MCH (RBC) [Entitic mass] 29.1 pg Normal 27.0-31.2 [facility] ([place]) Comment on above: Performed By: #### A DIFF, BMP, ANEU, VIDH, URIC, CBC, GFR #### [place] [address] #### PTH #### [place] [address] MCHC 33.4 G/dL Normal 31.8-35.4 [facility] ([place]) Comment on above: Performed By: #### A DIFF, BMP, ANEU, VIDH, URIC, CBC, GFR #### [place] [address] #### PTH #### [place] [address] MCV (RBC) [Entitic vol] 86.9 fL Normal 80.0-94.0 [facility] ([place]) Comment on above: Performed By: #### A DIFF, BMP, ANEU, VIDH, URIC, CBC, GFR #### [place] [address] #### PTH #### [place] [address] Platelet 118 10 3/mcL Low 130-400 [facility] ([place]) Comment on above: Performed By: #### A DIFF, BMP, ANEU, VIDH, URIC, CBC, GFR #### [place] [address] #### PTH #### [place] [address] Platelet mean volume (Bld) [Entitic vol] 8.4 fL Normal 7.4-10.4 [facility] ([place]) Comment on above: Performed By: #### A DIFF, BMP, ANEU, VIDH, URIC, CBC, GFR #### [address] [address] #### PTH #### [address] [address] RBC 3.70 10 6/mcL Low 4.04-6.13 [facility] ([place]) Comment on above: Performed By: #### A DIFF, BMP, ANEU, VIDH, URIC, CBC, GFR #### [place] [address] #### PTH #### [place] [address] WBC 6.8 10 3/mcL Normal 4.6-10.8 [facility] ([place]) Comment on above: Performed By: #### A DIFF, BMP, ANEU, VIDH, URIC, CBC, GFR #### [place] [address] #### PTH #### [place] [address] CRURon 06-09-2023 U Creatinine 94.6 mg/dL Normal 39.0-259.0 [facility] ([place]) Comment on above: Performed By: #### P RODRIGO ADAMS #### [address] [address] PRURon 06-09-2023 U Protein 23 mg/dL High 0-11 [facility] ([place]) Comment on above: Performed By: #### P JASS ADAMSUR #### [place] [address] PTHon 06-09-2023 PTH, Intact 55.8 pg/mL Normal 18.5-88.0 [facility] ([place]) Comment on above: Performed By: #### A DIFF, BMP, ANEU, VIDH, URIC, CBC, GFR #### [place] [address] #### PTH #### [place] [address] URICon 06-09-2023 Uric Acid Lvl 8.6 mg/dL High 3.5-7.2 [facility] ([place]) Comment on above: Performed By: #### A DIFF, BMP, ANEU, VIDH, URIC, CBC, GFR #### [facility] [address] [place], [place] [address] #### PTH #### [facility] [address] [place] [address] Albumin Elph [Mass/Vol]Order ed By: Braxton Doss on 04-01-2023 Albumin [Mass/Vol] 3.9 g/dL 2.9-4.4 [facility] Basophil percentageOrdered B y: Braxton Doss on 04-01-2023 Basophil percentage Comment . [facility] Comment on above: No monoclonality det ected.Performed at: [facility] [id number] Director: Jonnathan Meeks PhD, Phone: [phone] No Panel InformationOrdered By: Braxton Doss on 04-01-2023 Addendum Document Comment . [facility] Comment on above: Protein electrophore sis scan will follow via computer,mail, or kitchen helper delivery. Serum [id number]-[id number] measu rement by electrophoresisOrdered By: Braxton Doss on 04-01-2023 Alpha 1 globulin Elph [Mass/Vol] 0.2 g/dL 0.0-0.4 [facility] Alpha 1 globulin Elph [Mass/Vol] 0.7 g/dL 0.4-1.0 [facility] Serum globulin measurement ( mass/volume)Ordered By: Braxton Doss on 04-01-2023 Globulin (S) [Mass/Vol] 2.6 g/dL 2.2-3.[address] [facility] Serum or plasma IgA measurem ent (mass/volume)Ordered By: Braxton Doss on 04-01-2023 IgA [Mass/Vol] 337 mg/dL 61-437 [facility] Serum or plasma IgG measurem ent (mass/volume)Ordered By: Braxton Doss on 04-01-2023 IgG [Mass/Vol] 823 mg/dL 603-1613 [facility] Serum or plasma IgM measurem ent (mass/volume)Ordered By: Braxton Doss on 04-01-2023 IgM [Mass/Vol] 59 mg/dL 15-143 [facility] Serum or plasma beta globuli n measurement by electrophoresis (mass/volume)Ordered By: [facility]xton [facility]23 Beta globulin Elph [Mass/Vol] 1.1 g/dL 0.7-1.3 [facility] Serum or plasma gamma globul in measurement by electrophoresis (mass/volume)Ordered By: Braxtoncassandra Thayerkelsey on 04-01-2023 Gamma globulin Elph [Mass/Vol] 0.6 g/dL 0.4-1.8 [facility] Serum or plasma immunoelectr ophoresis interpretation (nominal result)Ordered By: Braxton [facility] 04-01-2023 Interpretation IEP [Interp] Comment . [facility] Comment on above: No monoclonality det ected. Thin prep Papanicolaou smear with manual screeningOrdered By: Braxton [facility]23 Thin prep Papanicolaou smear with manual screening 1.6 0.7-1.7 [facility] Total protein bloodOrdered B y: Braxton Thayerkelsey on 04-01-2023 Protein [Mass/Vol] 6.5 g/dL 6.0-8.5 [facility] HFPon 02-25-2023 Bili Indirect 0.3 mg/dL Normal [facility] ([place]) Comment on above: Performed By: #### A DIFF, BMP, ANEU, VIDH, URIC, CBC, GFR #### [address] [address] #### PTH #### [address] [address] Albumin Level 3.8 G/dL Normal 3.4-4.8 [facility] ([place]) Comment on above: Performed By: #### A DIFF, BMP, ANEU, VIDH, URIC, CBC, GFR #### [address] [address] #### PTH #### [address] [address] Albumin/Globulin [Mass ratio] 1.4 {ratio} Normal 1.1-2.5 [facility] ([place]) Comment on above: Performed By: #### A DIFF, BMP, ANEU, VIDH, URIC, CBC, GFR #### [place] [address] #### PTH #### [address] [address] ALP [Catalytic activity/Vol] 62 U/L Normal 40-135 [facility] ([place]) Comment on above: Performed By: #### A DIFF, BMP, ANEU, VIDH, URIC, CBC, GFR #### [place] [address] #### PTH #### [place] [address] ALT [Catalytic activity/Vol] 14 U/L Low 16-63 [facility] ([place]) Comment on above: Performed By: #### A DIFF, BMP, ANEU, VIDH, URIC, CBC, GFR #### [place] [address] #### PTH #### [place] [address] AST [Catalytic activity/Vol] 22 U/L Normal 10-40 [facility] ([place]) Comment on above: Performed By: #### A DIFF, BMP, ANEU, VIDH, URIC, CBC, GFR #### [place] [address] #### PTH #### [place] [address] Bili Direct 0.2 mg/dL Normal 0.0-0.2 [facility] ([place]) Comment on above: Result Comment: Use of this assay is not recommended for patients undergoing treatment with eltrombopag due to the potential for falsely elevated results. Performed By: #### A DIFF, BMP, ANEU, VIDH, URIC, CBC, GFR #### [place] [address] #### PTH #### [place] [address] Bili Total 0.5 mg/dL Normal 0.2-1.0 [facility] ([place] Comment on above: Result Comment: Use of this assay is not recommended for patients undergoing treatment with eltrombopag due to the potential for falsely elevated results. Performed By: #### A DIFF, BMP, ANEU, VIDH, URIC, CBC, GFR #### [address] [address] #### PTH #### [address] [address] Globulin 2.7 G/dL Normal [facility] ([place]) Comment on above: Performed By: #### A DIFF, BMP, ANEU, VIDH, URIC, CBC, GFR #### [address] [address] #### PTH #### [address] [address] Total Protein 6.5 G/dL Normal 6.4-8.2 [facility] ([place]) Comment on above: Performed By: #### A DIFF, BMP, ANEU, VIDH, URIC, CBC, GFR #### [address] [address] #### PTH #### [address] [address] LIPIDon 02-25-2023 Cholesterol [Mass/Vol] 85 mg/dL Normal 0-200 [facility] ([place]) Comment on above: Result Comment: Chol esterol Reference Interval: Less than 200 Desirable 200-239 Borderline high risk 240 and above High risk Performed By: #### A DIFF, BMP, ANEU, VIDH, URIC, CBC, GFR #### [address] [address] #### PTH #### [address] [address] Cholesterol in HDL [Mass/Vol] 41 mg/dL Normal 40-60 [facility] ([place]) Comment on above: Performed By: #### A DIFF, BMP, ANEU, VIDH, URIC, CBC, GFR #### [address] [address] #### PTH #### [address] [address] Cholesterol in LDL [Mass/Vol] 33 mg/dL Normal 0-130 [facility] ([place]) Comment on above: Performed By: #### A DIFF, BMP, ANEU, VIDH, URIC, CBC, GFR #### [address] [address] #### PTH #### [address] [address] Triglyceride [Mass/Vol] 53 mg/dL Normal 0-150 A [facility] ([place]) Comment on above: Result Comment: Trig lyceride Reference Interval: Less than 150 Normal 150-199 Borderline high risk 200-499 High risk 500 or higher Very high risk Performed By: #### A DIFF, BMP, ANEU, VIDH, URIC, CBC, GFR #### [address] [address] #### PTH #### [address] [address] Basophil percentageOrdered B y: Dr. Doss on 12-08-2022 Bilirubin [Mass/Vol] 0.70 mg/dL 0.20-1.00 [facility] Comment on above: For patients on eltr ombopag therapy, use of Dimension [place] TBIL is not recommended. Chloride [Moles/Vol] 107 mmol/L 98-107 [facility] Glucose [Mass/Vol] 165 mg/dL 74-106 [facility] Comment on above: Fasting Glucose resu lt greater than or equal to 126 mg/dL suggests DIABETES MELLITUS per A.D.A. criteria. Potassium [Moles/Vol] 4.5 mmol/L 3.5-5.1 [facility] Protein [Mass/Vol] 7.2 g/dL 6.4-8.2 [facility] Sodium [Moles/Vol] 140 mmol/L 136-145 [facility] WBC (Bld) [#/Vol] 8.3 10*3/uL 4.4-11.0 [facility] Blood erythrocytes count (nu mber/volume)Ordered By: Dr. Doss on 12-08-2022 RBC (Bld) [#/Vol] 3.84 10*6/uL 4.6-6.2 [facility] Blood hemoglobin measurement (mass/volume)Ordered By: Dr. Doss on 12-08-2022 Hemoglobin (Bld) [Mass/Vol] 11.3 g/dL 13.0-16.5 [facility] Blood platelet mean volumeOr dered By: Dr. Doss on 12-08-2022 Platelet mean volume (Bld) [Entitic vol] 11.2 fL 6.2-12.0 [facility] Determination of erythrocyte mean corpuscular volume (MCV)Ordered By: Dr. Doss on 12-08-2022 MCV (RBC) [Entitic vol] 91.7 fL 80-[address] [facility] Hematocrit Auto (Bld) [Volum e fraction]Ordered By: Dr. Doss on 12-08-2022 Hematocrit (Bld) [Volume fraction] 35.2 % 40-54 [facility] Laboratory - Chemistry and C hemistry - challengeOrdered By: Dr. Doss on 12-08-2022 ALP [Catalytic activity/Vol] 55 U/L 45-117 [facility] ALT [Catalytic activity/Vol] 16 U/L 16-61 [facility] CO2 [Moles/Vol] 29.0 mmol/L 21.0-32.0 [facility] Cobalamin (Vitamin B12) [Mass/Vol] 426 pg/mL 211-911 [facility] Globulin (S) [Mass/Vol] 3.4 g/dL 2.2-4.[address] [facility] Urea nitrogen/Creatinine [Mass ratio] 13.2 mg/mg 10-20 [facility] Laboratory - Hematology and Cell countsOrdered By: Dr. Doss on 12-08-2022 Erythrocyte distribution width (RBC) [Entitic vol] 47.5 fL 35.1-43.9 [facility] Erythrocyte distribution width (RBC) [Ratio] 14.1 % 11.6-14.6 [facility] MCH (RBC) [Entitic mass] 29.4 pg 27.0-32.0 [facility] MCHC Auto (RBC) [Mass/Vol]Or dered By: Dr. Doss on 12-08-2022 MCHC (RBC) [Mass/Vol] 32.1 g/dL 32-36 [facility] No Panel InformationOrdered By: Dr. Doss on 12-08-2022 Estimated GFR (MDRD) Amer 28 mL/min >60 [facility] Comment on above: GFR Calc Estimated GFR (MDRD) Non-Af Amer 23 mL/min >60 [facility] Comment on above: Non- GFR Calc Free Lambda Light Chains, Quant 38.1 mg/L 5.7-26.3 [facility] Thyroid Stimulating Hormone (TSH) 1.17 uIU/mL 0.358-3.74 [facility] Whole Blood Vitamin B1 Level 120.3 nmol/L 66.5-200.0 [facility] Comment on above: Performed at: [facility] [address] [id number] Director: Jonnathan Meeks PhD, Phone: [phone] at: [facility] [id number] Director: Mariaelena Hanna MD, Phone: [phone] Platelets bldOrdered By: Dr. Doss on 12-08-2022 Platelets (Bld) [#/Vol] 162 10*3/uL 150-450 [facility] Serum immunoglobulin kappa l ight chains/immunoglobulin lambda light chains mass ratioOrdered By: Dr. Doss on 12-08-2022 Immunoglobulin light chains.kappa/Immunoglobu katie light chains.lambda (S) [Mass ratio] 1.89 0.26-1.65 [facility] Serum or plasma albumin francisco urement (mass/volume)Ordered By: Dr. Doss on 12-08-2022 Albumin [Mass/Vol] 3.8 g/dL 3.2-5.0 [facility] Serum or plasma albumin/glob ulin mass ratioOrdered By: Dr. Doss on 12-08-2022 Albumin/Globulin [Mass ratio] 1.1 {ratio} 0.9-2.4 [facility] Serum or plasma calcium francisco urement (mass/volume)Ordered By: Dr. Doss on 12-08-2022 Calcium [Mass/Vol] 10.1 mg/dL 8.5-10.1 [facility] Serum or plasma creatinine m easurement (mass/volume)Ordered By: Dr. Doss on 12-08-2022 Creatinine [Mass/Vol] 2.81 mg/dL 0.70-1.30 [facility] Comment on above: The validity of the calculated GFR & GFRAA in patients over 70 years has not been determined. Clinical correlation is essential. Serum or plasma folate measu rement (mass/volume)Ordered By: Dr. Doss on 12-08-2022 Folate [Mass/Vol] 6.40 ng/mL 3.1-55.4 [facility] Serum or plasma immunoglobul in kappa light chains measurement (mass/volume)Ordered By: Dr. Doss on 12-08-2022 Immunoglobulin light chains.kappa [Mass/Vol] 72.1 mg/L 3.3-19.4 [facility] Serum or plasma urea nitroge n measurement (mass/volume)Ordered By: Dr. Doss on 12-08-2022 Urea nitrogen [Mass/Vol] 37 mg/dL 7-18 [facility] Thin prep Papanicolaou smear with manual screeningOrdered By: Dr. Doss on 12-08-2022 Thin prep Papanicolaou smear with manual screening 21 U/L 15-37 [facility] Thin prep Papanicolaou smear with manual screening 4 5-15 [facility] LABORATORYOrdered By: Rhett Figueroa on 10-30-2022 Anisocytosis [...] Interpretation Code AO ADM SS LABORATORYOrdered By: Pelago on 10-19-2022 Ferritin [Mass/Vol] 37.0 ng/mL Invalid [...] 150 mg/dL AO ADM SS LABORATORYOrdered By: Pelago on 08-25-2022 Bili Indirect 0.3 mg/dL Invalid [...] Pressure Non-Invasive 59 mm[Hg] FLORENTIN MORAN DO [facility] 07-12-2025 12:17-0400 Heart rate 68 /min FLORENTIN MORAN DO [facility] 07-12-2025 12:17-0400 Respiratory rate 20 /min FLORENTIN MORAN DO [facility] 07-12-2025 12:17-0400 Systolic Blood Pressure Non-Invasive 105 mm[Hg] FLORENTIN MORAN DO [facility] 07-12-2025 09:39-0400 Body height 175.3 cm FLORENTIN MORAN DO [facility] 07-12-2025 09:39-0400 Body temperature 96.98 [degF] FLORENTIN MORAN DO [facility] 07-12-2025 09:39-0400 Body weight 90.9 kg FLORENTIN MORAN DO [facility] 07-12-2025 09:39-0400 Diastolic Blood Pressure Non-Invasive 54 mm[Hg] FLORENTIN MORAN DO [facility] 07-12-2025 09:39-0400 Heart rate 79 /min FLORENTIN MORAN DO [facility] 07-12-2025 09:39-0400 Respiratory rate 16 /min FLORENTIN MORAN DO [facility] 07-12-2025 09:39-0400 Systolic Blood Pressure Non-Invasive 93 mm[Hg] FLORENTIN MORAN DO [facility] 06-11-2025 14:35-0400 Diastolic blood pressure 56 mm[Hg] Dr. Jluis Nichole DO Work Phone: [facility] 06-11-2025 14:35-0400 Systolic blood pressure 108 mm[Hg] Dr. Jluis Nichole DO Work Phone: [facility] 06-11-2025 13:56-0400 Body temperature 98 [degF] Dr. Jluis Nichole DO Work Phone: [facility] 06-11-2025 13:56-0400 Heart rate 68 /min Dr. Jluis Nichole DO Work Phone: [facility] 06-11-2025 13:56-0400 Respiratory rate 15 /min Dr. Jluis Nichole DO Work Phone: [facility] 06-11-2025 13:56-0400 SaO2% (BldA) [Mass fraction] 97 % Dr. Jluis Nichole DO Work Phone: [facility] 03-28-2025 09:39-0400 Body temperature 98.8 [degF] Dr. Jluis Nichole DO Work Phone: [facility] 03-28-2025 09:39-0400 Diastolic blood pressure 62 mm[Hg] Dr. Jluis Nichole DO Work Phone: [facility] 03-28-2025 09:39-0400 Heart rate 61 /min Dr. Jluis Nichole DO Work Phone: [facility] 03-28-2025 09:39-0400 Respiratory rate 15 /min Dr. Jluis Nichole DO Work Phone: [facility] 03-28-2025 09:39-0400 SaO2% (BldA) [Mass fraction] 100 % Dr. Jluis Nichole DO Work Phone: [facility] 03-28-2025 09:39-0400 Systolic blood pressure 104 mm[Hg] Dr. Jluis Nichole DO Work Phone: [facility] 02-16-2025 15:34-0400 Body height 175.[address] Jluis Nichole DO Work Phone: [facility] 02-16-2025 15:34-0400 Body mass index (BMI) [Ratio] 30.4 kg/m2 Dr. Jluis Nichole DO Work Phone: [facility] 02-16-2025 15:34-0400 Body weight 93.[address] Jluis Nichole DO Work Phone: [facility] 02-16-2025 15:34-0400 Diastolic blood pressure 72 mm[Hg] Dr. Jluis Nichole DO Work Phone: [facility] 02-16-2025 15:34-0400 Heart rate 71 /min Dr. Jluis Nichole DO Work Phone: [facility] 02-16-2025 15:34-0400 Respiratory rate 18 /min Dr. Jluis Nichole DO Work Phone: [facility] 02-16-2025 15:34-0400 Systolic blood pressure 152 mm[Hg] Dr. Jlusi Nichole DO Work Phone: [facility] 11-29-2024 09:47-0400 Body temperature 97.8 [degF] Dr. Jluis Nichole DO Work Phone: [facility] 11-29-2024 09:47-0400 Diastolic blood pressure 68 mm[Hg] Dr. Jluis Nichole DO Work Phone: [facility] 11-29-2024 09:47-0400 Heart rate 64 /min Dr. Jluis Nichole DO Work Phone: [facility] 11-29-2024 09:47-0400 Respiratory rate 16 /min Dr. Jluis Nichole DO Work Phone: [facility] 11-29-2024 09:47-0400 SaO2% (BldA) [Mass fraction] 100 % Dr. Jluis Nichole DO Work Phone: [facility] 11-29-2024 09:47-0400 Systolic blood pressure 110 mm[Hg] Dr. Jluis Nichole DO Work Phone: [facility] 11-16-2024 10:19-0500 Body temperature 97.9 [degF] Dr. Jluis Nichole DO Work Phone: [facility] 11-16-2024 10:19-0500 Body weight 87.[address] Jluis Nichole DO Work Phone: [facility] 11-16-2024 10:19-0500 Diastolic blood pressure 76 mm[Hg] Dr. Jluis Nichole DO Work Phone: [facility] 11-16-2024 10:19-0500 Heart rate 68 /min Dr. Jluis Nichole DO Work Phone: [facility] 11-16-2024 10:19-0500 SaO2% (BldA) [Mass fraction] 97 % Dr. Jluis Nichole DO Work Phone: [facility] 11-16-2024 10:19-0500 Systolic blood pressure 120 mm[Hg] Dr. Jluis Nichole DO Work Phone: [facility] 09-12-2024 10:19-0500 Body height 172.7 cm Toney Gutierrez MD Work Phone: [facility] 09-12-2024 10:19-0500 Body mass index (BMI) [Ratio] 29.95 kg/m2 Toney Gutierrez MD Work Phone: [facility] 09-12-2024 10:19-0500 Body temperature 97.11 [degF] Toney Gutierrez MD Work Phone: [facility] 09-12-2024 10:19-0500 Body weight 89.36 kg Toney Gutierrez MD Work Phone: [facility] 09-12-2024 10:19-0500 Diastolic blood pressure 59 mm[Hg] Toney Gutierrez MD Work Phone: [facility] 09-12-2024 10:19-0500 Heart rate 58 /min Toney Gutierrez MD Work Phone: [facility] 09-12-2024 10:19-0500 SaO2% (BldA) [Mass fraction] 96 % Toney Gutierrez MD Work Phone: [facility] 09-12-2024 10:19-0500 Systolic blood pressure 128 mm[Hg] Toney Gutierrez MD Work Phone: [facility] 06-14-2024 11:21-0400 Blood Pressure Location FLORENTINPERLA MORAN DO [facility] 06-14-2024 11:21-0400 Blood Pressure Method FLORENTIN MORAN DO [facility] 06-14-2024 11:21-0400 Body temperature 98.24 [degF] FLORENTIN MORAN DO [facility] 06-14-2024 11:21-0400 Diastolic Blood Pressure Non-Invasive 69 mm[Hg] FLORENTIN MORAN DO [facility] 06-14-2024 11:21-0400 Heart rate 60 /min FLORENTIN MORAN DO [facility] 06-14-2024 11:21-0400 Respiratory rate 18 /min FLORENTIN MORAN DO [facility] 06-14-2024 11:21-0400 Systolic Blood Pressure Non-Invasive 127 mm[Hg] FLORENTIN MORAN DO [facility] 04-01-2023 10:44-0400 Body height 175.[address] Layne Doherty Work Phone: [facility] 04-01-2023 10:44-0400 Body mass index (BMI) [Ratio] 29.3 kg/m2 Dr. Layne Doherty Work Phone: [facility] 04-01-2023 10:44-0400 Body temperature 98.9 [degF] Dr. Layne Doherty Work Phone: [facility] 04-01-2023 10:44-0400 Body weight 90.[address] Layne Doherty Work Phone: [facility] 04-01-2023 10:44-0400 Diastolic blood pressure 50 mm[Hg] Dr. Layne Doherty Work Phone: [facility] 04-01-2023 10:44-0400 Heart rate 76 /min Dr. Layne Doherty Work Phone: [facility] 04-01-2023 10:44-0400 Respiratory rate 15 /min Dr. Layne Doherty Work Phone: [facility] 04-01-2023 10:44-0400 SaO2% (BldA) [Mass fraction] 99 % Dr. Layne Doherty Work Phone: [facility] 04-01-2023 10:44-0400 Systolic blood pressure 114 mm[Hg] Dr. Layen Doherty Work Phone: [facility] 03-02-2023 08:32-0400 Body mass index (BMI) [Ratio] 29.7 kg/m2 Dr. Layne Doherty Work Phone: [facility] 03-02-2023 08:32-0400 Body weight 91.[address] Layne Doherty Work Phone: [facility] 03-02-2023 08:32-0400 Diastolic blood pressure 59 mm[Hg] Dr. Layne Doherty Work Phone: [facility] 03-02-2023 08:32-0400 Heart rate 64 /min Dr. Layne Doherty Work Phone: [facility] 03-02-2023 08:32-0400 Respiratory rate 16 /min Dr. Layne Doherty Work Phone: [facility] 03-02-2023 08:32-0400 Systolic blood pressure 111 mm[Hg] Dr. Layne Doherty Work Phone: [facility] 11-26-2022 13:05-0500 Diastolic blood pressure 68 mm[Hg] Dr. Layne Doherty Work Phone: [facility] 11-26-2022 13:05-0500 Systolic blood pressure 116 mm[Hg] Dr. Layne Doherty Work Phone: [facility] 11-26-2022 10:02-0500 Body height 175.[address] Layne Doherty Work Phone: [facility] 11-26-2022 10:02-0500 Body mass index (BMI) [Ratio] 29.2 kg/m2 Dr. Layne Doherty Work Phone: [facility] 11-26-2022 10:02-0500 Body temperature 98.2 [degF] Dr. Layne Doherty Work Phone: [facility] 11-26-2022 10:02-0500 Body weight 90.[address] Layne Doherty Work Phone: [facility] 11-26-2022 10:02-0500 Heart rate 67 /min Dr. Layne Doherty Work Phone: [facility] 11-26-2022 10:02-0500 Respiratory rate 17 /min Dr. Layne Doherty Work Phone: [facility] 11-26-2022 10:02-0500 SaO2% (BldA) [Mass fraction] 99 % Dr. Layne Doherty Work Phone: [facility] 09-01-2022 08:20-0500 Body mass index (BMI) [Ratio] 26.6 kg/m2 Dr. Layne Doherty Work Phone: [facility] 09-01-2022 08:20-0500 Body weight 81.[address] Layne Doherty Work Phone: [facility] 09-01-2022 08:20-0500 Diastolic blood pressure 77 mm[Hg] Dr. Layne Doherty Work Phone: [facility] 09-01-2022 08:20-0500 Heart rate 64 /min Dr. Layne Doherty Work Phone: [facility] 09-01-2022 08:20-0500 Respiratory rate 20 /min Dr. Layne Doherty Work Phone: [facility] 09-01-2022 08:20-0500 SaO2% (BldA) [Mass fraction] 98 % Dr. Lanye Doherty Work Phone: [facility] 09-01-2022 08:20-0500 Systolic blood pressure 142 mm[Hg] Dr. Layne Doherty Work Phone: [facility] 03-09-2022 08:36-0400 Body height 175.[address] Layne Doherty Work Phone: [facility] Work Phone: 03-09-2022 08:36-0400 Body mass index (BMI) [Ratio] 28.5 kg/m2 Dr. Layne Doherty Work Phone: [facility] Work Phone: 03-09-2022 08:36-0400 Body weight 87.[address] Layne Doherty Work Phone: [facility] Work Phone: 03-09-2022 08:36-0400 Diastolic blood pressure 78 mm[Hg] Dr. Layne Doherty Work Phone: [facility] Work Phone: 03-09-2022 08:36-0400 Heart rate 64 /min Dr. Layne Doherty Work Phone: [facility] Work Phone: 03-09-2022 08:36-0400 Respiratory rate 18 /min Dr. Layne Doherty Work Phone: [facility] Work Phone: 03-09-2022 08:36-0400 Systolic blood pressure 144 mm[Hg] Dr. Layne Doherty Work Phone: [facility] Work Phone: Encounters Encounter Date Encounter Type Care Provider Facility Start: 07-24-2025 ambulatory Jluis MILAN Facility :[facility] Start: 07-16-2025 End: 07-16-2025 ambulatory Jluis MILAN Facility:[facility] Start: 07-12-2025 End: 07-12-2025 Emergency department patient visit FLORENTIN DEAN LEE [facility] Start: 07-11-2025 End: 07-11-2025 ambulatory Jluis MILAN Facility:[facility] Start: 07-05-2025 End: 07-05-[address] JLUIS NICHOLE DO Facility:[facility] Start: 07-05-2025 End: 07-05-[address] JLUIS NICHOLE DO [facility] Start: 07-04-2025 End: 07-08-[address] JLUIS NICHOLE DO [facility] Start: 07-04-2025 End: 07-08-[address] JLUIS NICHOLE DO Facility:[facility] Start: 07-04-2025 End: 07-04-[address] JLUIS NICHOLE DO [facility] Start: 06-11-2025 End: 06-11-[address] Braxton Doss MD -[facility] Work Phone: Start: 06-11-2025 End: 06-11-[address] Jluis Nichole DO Work Phone: -[facility] Start: 04-26-2025 End: 04-26-[address] Jluis Nichole DO Work Phone: -Ultrasound [facility] Start: 04-26-2025 End: 04-26-[address] Porsha Bass DO -Ultrasound [facility] Work Phone: Start: 04-26-2025 End: 04-26-2025 ambulatory Porsha Bass Facility:[facility] Start: 04-19-2025 End: 04-19-[address] Jluis Nichole DO Work Phone: -Laboratory Phy Office 3rd Flr Start: 04-19-2025 End: 04-19-[address] Porsha Bass DO -Laboratory Phy [facility] 3rd Flr Start: 04-19-2025 End: 04-19-2025 ambulatory Porsha Bass Facility:[facility] Start: 04-10-2025 Non-patient / Non-visit Dr. Cecilio huitron MD -[facility] Start: 04-10-2025 End: 04-10-[address] Jluis Nichole DO Work Phone: -Cardiovascular Services Start: 04-10-2025 End: 04-10-2025 Patient encounter procedure Sharon RAGLAND -[facility] Work Phone: Start: 04-10-2025 End: 04-10-2025 ambulatory Porsha Bass Facility:[facility] Start: 03-28-2025 Non-patient / Non-visit Dr. Desire ROMAN -[facility] Start: 03-28-2025 End: 03-28-[address] Jluis Nichole DO Work Phone: -Cardiovascular Services Start: 03-28-2025 End: 03-28-2025 Patient encounter procedure Bailey CONTE -Cardiovascular Services Work Phone: Start: 03-28-2025 End: 03-28-2025 Patient encounter procedure Sharon RAGLAND -[facility] Work Phone: Start: 03-28-2025 End: 03-28-[address] Jluis Nichole DO Work Phone: -[facility] Start: 03-28-2025 End: 03-28-2025 ambulatory Jluis Nichole Facility:[facility] Start: 02-23-2025 End: 04-17-[address] JLUIS NICHOLE DO Facility:[facility] Start: 02-22-2025 End: 02-22-2025 Emergency department patient visit DAVID LAST MD [facility] Start: 02-21-2025 End: 02-25-[address] JLUIS NICHOLE DO Facility:[facility] Start: 02-21-2025 End: 02-25-[address] JLUIS NICHOLE DO [facility] Start: 02-16-2025 End: 02-16-2025 Patient encounter procedure Bailey CONTE -[facility] Work Phone: Start: 02-16-2025 End: 02-16-[address] Jluis Nichole DO Work Phone: [facility] Work Phone: Start: 02-08-2025 End: 02-08-[address] Jluis Nichole DO Work Phone: [facility] Work Phone: Start: 02-08-2025 End: 02-08-2025 Patient encounter procedure Maryuri Begum 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-C -Laboratory Work Phone: Start: 02-08-2025 End: 02-08-2025 ambulatory Maryuri Begum NP Facility:[facility] Start: 11-29-2024 End: 11-29-[address] Braxton Doss MD -[facility] Work Phone: Start: 11-29-2024 End: 11-29-2024 ambulatory Jluis Nichole Facility:[facility] Start: 11-16-2024 End: 11-16-2024 ambulatory Jluis Nichole Facility:[facility] Start: 11-16-2024 End: 11-16-2024 Patient encounter procedure Elijah Quintero PA -[facility] Work Phone: Start: 11-01-2024 End: 11-01-[address] JLUIS NICHOLE DO Facility:[facility] Start: 11-01-2024 End: 11-01-[address] TIA POWELL MD [facility] Start: 09-12-2024 End: 09-12-2024 ambulatory Toney Gutierrez MD Work Phone: Hematology/Oncology Comment on above: Thrombocytopenia (HC C) (Primary Dx); Anemia, unspecified type Start: 09-12-2024 End: 09-12-2024 Patient encounter procedure Toney Gutierrez MD Work Phone: Hematology/Oncology Start: 08-14-2024 End: 08-14-[address] JLUIS NICHOLE DO Facility:[facility] Start: 08-14-2024 End: 08-14-[address] JLUIS NICHOLE DO [facility] Start: 08-11-2024 End: 08-15-[address] JLUIS NICHOLE DO Facility:[facility] Start: 08-11-2024 End: 08-15-2024 Encounter for general adult medical examination without abnormal findings DR JLUIS NICHOLE DO Facility:[facility] Start: 08-11-2024 End: 08-15-[address] JLUIS NICHOLE DO [facility] Start: 07-07-2024 End: 07-07-[address] TIA POWELL MD [facility] Start: 06-14-2024 End: 06-14-2024 Emergency department patient visit FLORENTIN MORAN DO [facility] Start: 02-21-2024 End: 02-21-[address] TIA POWELL MD Facility:[facility] Start: 02-21-2024 End: 02-21-[address] TIA POWELL MD [facility] Start: 11-19-[address] JLUIS NICHOLE DO Facili ty:[facility] Start: 11-15-2023 End: 12-15-[address] JLUIS NICHOLE DO Facility:[facility] Start: 10-27-2023 End: 10-27-[address] TIA POWELL MD Facility:[facility] Start: 06-24-2023 End: 06-25-[address] JLUIS NICHOLE DO Facility:[facility] Start: 06-09-2023 End: 06-09-[address] TIA POWELL MD Facility:[facility] Start: 04-01-2023 End: 04-01-[address] Layne Doherty Work Phone: [facility] Work Phone: Start: 04-01-2023 End: 04-01-[address] Layne Doherty Work Phone: [facility] Work Phone: Start: 04-01-2023 End: 04-01-[address] Layne Doherty Work Phone: [facility] Work Phone: Start: 03-02-2023 End: 03-02-[address] Layne Doherty Work Phone: [facility] Work Phone: Start: 02-25-2023 End: 02-25-2023 ambulatory MARYURI BEGUM CNP Facility:[facility] Start: 12-14-2022 End: 12-14-[address] Layne Doherty Work Phone: [facility] Work Phone: Start: 12-14-2022 End: 12-14-[address] Layne Doherty Work Phone: [facility] Start: 12-08-2022 End: 12-08-[address] Layne Doherty Work Phone: [facility] Work Phone: Start: 12-08-2022 End: 12-08-[address] Layne Doherty Work Phone: [facility] Start: 11-26-2022 End: 11-26-[address] Layne Doherty Work Phone: [facility] Start: 10-30-2022 End: 10-30-[address] TIA POWELL MD [facility] Start: 10-19-2022 End: 10-19-[address] JLUIS NICHOLE DO [facility] Start: 09-01-2022 End: 09-01-[address] Layne Doherty Work Phone: [facility] Start: 08-25-2022 End: 08-25-2022 Patient encounter procedure MARYURI BEGUM CNP [facility] Start: 04-29-2022 End: 04-29-[address] TIA POWELL MD [facility] Start: 03-09-2022 End: 03-09-[address] Layne Doherty Work Phone: [facility] Start: 03-07-2022 End: 03-07-[address] Layne Doherty Work Phone: [facility] Start: 01-19-2022 End: 01-19-[address] TIA POWELL MD [facility] Start: 12-30-2021 End: 04-07-2022 Physical therapy management LAYNE DOHERTY DO [facility] Start: 11-18-2021 End: 11-18-2021 Patient encounter procedure MARYURI BEGUM ROUND CUTTER OPERATOR [facility] Start: 06-01-2018 Patient encounter ARTEM Friedman cility:[facility] Procedures Date Procedure Procedure Detail Performing Clinician Start: 04-26-2025 Complete ultrasound of kidneys and bladder Dr. Jluis Nichole DO Work Phone: Start: 12-14-2022 MRI of brain without contrast Dr. Layne Doherty Work Phone: Start: 03-07-2022 MRI of brain without contrast Dr. Layne Doherty Work Phone: Start: 02-01-2019 Cystoscopy MARYURI BEGUM ROUND CUTTER OPERATOR Comment on above: Per [place] office no te Start: 08-03-2018 Transurethral prostatectomy MARYURI BEGUM ROUND CUTTER OPERATOR Comment on above: Per [place] office no te Start: 08-03-2018 Transurethral resect ion of bladder neoplasm MARYURI BEGUM ROUND CUTTER OPERATOR Comment on above: Per [place] office no te Start: 06-03-2018 History of coronary artery bypass grafting S/P CABG x 5 Toney Gutierrez MD Work Phone: Start: 04-20-2018 History of coronary artery bypass grafting S/P coronary artery bypass graft x 5 Bailey CONTE Comment on above: SANCHEZ-LAD, SVG - acut e marginal, SVG seq to DG 2, DG3, SVG-OM 05/13/18 @ [facility] Start: 09-20-2002 Biopsy of prostate MARYURI BEGUM ROUND CUTTER OPERATOR Comment on above: Per [place] office no te Start: 09-20-1997 Biopsy of prostate MARYURI BEGUM ROUND CUTTER OPERATOR Comment on above: Per [place] office no te Extracorporeal shock wave lithotripsy of calculus of kidney MARYURI BEGUM ROUND CUTTER OPERATOR Comment on above: Per [place] office no te Knee region structur e (body structure) MARYURI BEGUM ROUND CUTTER OPERATOR Procedure on heart MARYURI BEGUM ROUND CUTTER OPERATOR Structure of left wr ist (body structure) MARYURI BEGUM ROUND CUTTER OPERATOR Comment on above: Pins s/p fall on ice Plan of Treatment Date Care Activity Detail Author Start: 10-07-2032 Urine microalbumin profile DTaP,Tdap,Td Vaccine (2 - Td or Tdap) [facility] Start: 01-11-2025 End: 01-11-2025 ambulatory 01/11/2025 10:20 AM EDT Visit (SP) Office Hematology/Oncology [address] [place] [address] [place] [id number] [place] [address] CBC/ 4 MO OV Hematology/Oncology Comment on above: CBC/ 4 MO OV Start: 09-12-2024 End: 12-12-2024 aPTT in Platelet poor plasma by Coagulation assay ACTIVATED PARTIAL THROMBOPLASTIN TIME Lab Routine Thrombocytopenia (HCC) Expected: 09/12/2024, Expires: 12/12/2024 [facility] Comment on above: Expected: 09/12/2024 , Expires: 12/12/2024 Start: 09-12-2024 End: 12-12-2024 CBC W Auto Differential panel - Blood COMPLETE BLOOD COUNT AND DIFFERENTIAL Lab Routine Thrombocytopenia (HCC) Expected: 09/12/2024, Expires: 12/12/2024 [facility] Work Phone: Comment on above: Expected: 09/12/2024 , Expires: 12/12/2024 Start: 09-12-2024 End: 12-12-2024 PT panel - Platelet poor plasma by Coagulation assay PROTHROMBIN TIME Lab Routine Thrombocytopenia (HCC) Expected: 09/12/2024, Expires: 12/12/2024 [facility] Comment on above: Expected: 09/12/2024 , Expires: 12/12/2024 Start: 05-21-2024 Covid-19 Vaccine ( season) Covid-19 Vaccine () [facility] Start: 09-20-2023 Advance Directive Discussion Advance Directive Discussion [facility] Start: 08-13-2023 Shingrix Vaccine (2 of 2) Shingrix Vaccine (2 of 2) [facility] Start: 04-01-2023 Serum immunofixation [facility] Start: 04-01-2023 Urine immunofixation [facility] Start: 11-26-2022 Patient referral [facility] Work Phone: Start: 07-01-2019 Hepatitis B surface antibody level LDL Cholesterol [facility] Start: 11-10-2018 Hemoglobin A1c measurement HbA1C [facility] Start: 1958 Anxiety Screening Anxiety Screening [facility] Start: 1958 Depression Screening Depression Scre ening [facility] Start: 1950 Diabetic foot examination Diabetic Foot Exam [facility] Start: 1950 Glaucoma screening Dilated Retinal E xam [facility] Start: 1950 Hepatitis B screening Urine Al bumin:Creatinine Ratio [facility] MR Brain WO contrast [facility] Patient referral [facility] Work Phone: Serum protein electrophoresis [facility] Carotid arteries [facility] [facility] Immunizations Immunization Date Immunization Notes Care Provider [facility] 06-28-2024 influenza, high dose seasonal, preservative-free; Translations: [Fluad PF Prefilled Syringe ] DR TIA POWELL MD [facility] 08-22-2023 RSV vaccine preF3, recombinant DR TIA POWELL MD [facility] 07-15-2023 SARS-CoV-2 (COVID-19 ) [id number] DR TIA POWELL MD [facility] 06-18-[address] TIA POWELL MD [facility] Comment on above: Result Comment: Oswaldo Black. IM left upper arm 05-15-2023 influenza virus vaccine, unspecified formulation DR TIA POWELL MD [facility] 04-27-2023 pneumococcal 20-keron nt conjugate vaccine DR TIA POWELL MD [facility] 10-07-2022 tetanus toxoid, reduced diphtheria toxoid, and acellular pertussis vaccine, adsorbed; Translations: [Boostrix (Tdap)] DR JLUIS NICHOLE DO [facility] 08-22-2022 influenza virus vaccine, unspecified formulation DR TIA POWELL MD [facility] 01-26-2022 SARS-CoV-2 (COVID-19 ) mRNA-[address] TIA POWELL MD [facility] 07-24-2021 SARS-CoV-2 (COVID-19 ) mRNA-[address] TIA POWELL MD [facility] Comment on above: Result Comment: 2022: [id number] 06-04-2021 influenza virus vaccine, unspecified formulation DR TIA POWELL MD [facility] 11-07-2020 COVID-19, mRNA, LNP- S, PF, 100 mcg or 50 mcg dose; Translations: [Moderna COVID-19 Vaccine] MARYURI BEGUM ROUND CUTTER OPERATOR [facility] 10-10-2020 COVID-19, mRNA, LNP- S, PF, 100 mcg or 50 mcg dose; Translations: [Moderna COVID-19 Vaccine] MARYURI BEGUM ROUND CUTTER OPERATOR [facility] 05-23-2020 influenza virus vaccine, unspecified formulation MARYURI ROOF ROUND CUTTER OPERATOR [facility] Comment on above: Result Comment: brenda meier administered 05-23-2020 pneumococcal conjuga te vaccine, 13 valent MARYURI BEUGM ROUND CUTTER OPERATOR [facility] 05-20-2019 influenza virus vaccine, unspecified formulation MARYURI BEGUM ROUND CUTTER OPERATOR [facility] 06-15-2018 influenza virus vaccine, unspecified formulation MARYURI BEGUM ROUND CUTTER OPERATOR [facility] 06-15-2018 influenza, injectabl e, quadrivalent, preservative free Dr. Jluis Nichole DO Work Phone: [facility] 06-15-2018 influenza, seasonal, injectable Dr. Layne Doherty Work Phone: [facility] 07-21-[address] Layne Doherty Work Phone: [facility] 06-08-2017 influenza virus vaccine, unspecified formulation MARYURI BEGUM ROUND CUTTER OPERATOR [facility] 06-09-2016 influenza virus vaccine, unspecified formulation MARYURI BEGUM ROUND CUTTER OPERATOR [facility] 06-11-2015 influenza virus vaccine, unspecified formulation MARYURI BEGUM ROUND CUTTER OPERATOR [facility] 05-21-2015 pneumococcal polysaccharide vaccine, 23 valent MARYURI BEGUM ROUND CUTTER OPERATOR [facility] 06-12-2014 influenza virus vaccine, unspecified formulation MARYURI BEGUM ROUND CUTTER OPERATOR [facility] 06-13-2013 influenza virus vaccine, unspecified formulation MARYURI BEGUM ROUND CUTTER OPERATOR [facility] 08-21-2005 pneumococcal polysaccharide vaccine, 23 valent MARYURI BEGUM ROUND CUTTER OPERATOR [facility] Payers Date Payer Category Payer Self-pay [id number] 2016 Private Health Insurance [id number] 2016 Unknown [id number] 2005 Medicare [id number] 2005 Medicare [id number] 1940 Unknown [id number] 2.16.8 40.1.833948.3.579.2.62 1940 Unknown [id number] 2.16.8 40.1.827832.3.579.2.62 1940 Unknown [id number] 2.16.8 40.1.290243.3.579.2.62 1940 Unknown [id number] 2.16.8 40.1.919222.3.579.2.627 1940 Unknown [id number] 2.16.8 40.1.860379.3.579.2.627 1940 Unknown [id number] 2.16. 840.1.214724.3.579.2.627 1940 Unknown [id number] 2.16. 840.1.374027.3.579.2.627 1940 Unknown [id number] 2.16. 840.1.135542.3.579.2.627 1940 Unknown [id number] 2.16. 840.1.643195.3.579.2.627 1940 Unknown [id number] 2.16. 840.1.819528.3.579.2.627 1940 Unknown [id number] 2.16. 840.1.179219.3.579.2.62 1940 Unknown [id number] 2.16.8 40.1.116015.3.579.2.62 1940 Unknown [id number] 2.16.8 40.1.453851.3.579.2.62 1940 Unknown [id number] 2.16.8 40.1.406381.3.579.2.627 Unknown [id number] 2.16.8 40.1.236874.3.579.2.462 Unknown [id number] 2.16.8 40.1.757806.3.579.2.462 Unknown [id number] 2.16.8 40.1.506132.3.579.2.462 Unknown [id number] 2.16.8 40.1.780043.3.579.2.462 Unknown [id number] 2.16.8 40.1.448089.3.579.2.462 Unknown [id number] 2.16.8 40.1.734752.3.579.2.462 Unknown [id number] 2.16.8 40.1.312120.3.579.2.462 Unknown [id number] 2.16.8 40.1.315914.3.579.2.462 Unknown [id number] 2.16.8 40.1.441173.3.579.2.462 Unknown [id number] 2.16.8 40.1.469502.3.579.2.462 Unknown [id number] 2.16.8 40.1.705057.3.579.2.462 Unknown [id number] 2.16.8 40.1.057970.3.579.2.462 Unknown [id number] 2.16.8 40.1.957318.3.579.2.462 Unknown [id number] 2.16.8 40.1.424688.3.579.2.462 Unknown [id number] 2.16.8 40.1.795530.3.579.2.462 Social History Date Type Detail Facility Start: 06-20-2019 Never smoked t obacco (finding) [facility] Start: 1940 Sex Assigned At Male A [facility] Start: 03-09-2022 End: 04-01-2023 Tobacco smoking status NHIS Unknown if ever smoked [facility] Start: 03-22-2019 Non-smoker [facility] Start: 10-11-2022 End: 11-29-2024 Tobacco smoking status Ex-smoker (finding) [facility] Start: 06-09-2018 None [facility] Start: 06-09-2018 Spouse/ Signif icant Other [facility] End: 09-20-1993 History of tobacco use Current smoker [facility] End: 09-20-1993 History of tobacco use Cigar Smoker [facility] Start: 09-12-2024 Tobacco use and exposure Smokeless tobacco non-user [facility] Start: 05-13-2018 End: 09-12-2024 History of Social function [facility] Start: 05-13-2018 End: 09-12-2024 Tobacco use panel [facility] PHQ2 Score 0 [facility] Start: 1940 Sex assigned at Not on file [facility] Sexual Orientation [facility] Start: 08-14-2019 Sex Male (finding) [facility] Start: 07-12-2025 Not applicable (qualifier value) [facility] Medical Equipment Procedure Code Equipment Code Equipment Original Text Equipment Identifier Dates See Instructions , Freestyle lite test strips. use 1 strip daily. Use as directed, # 100 EA, 2 Refill(s), [id number], Diabetes, 175, cm, 12/15/21 8:54:00 EDT, Height, 83.8 Start: 03-10-2022 See Instructions , Freestyle lite test strips. use 1 strip daily. Use as directed, # 100 EA, 2 Refill(s), [id number], Diabetes, 175, cm, 12/15/21 8:54:00 EDT, Height, 83.8 Start: 03-10-2022 See Instructions , Freestyle lite test strips. use 1 strip daily. Use as directed, # 100 EA, 2 Refill(s), [id number], Diabetes, 175, cm, 12/15/21 8:54:00 EDT, Height, 83.8 Start: 03-10-2022 See Instructions , Freestyle lite test strips. use 1 strip daily. Use as directed, # 100 EA, 2 Refill(s), [id number], Diabetes, 175, cm, 12/15/21 8:54:00 EDT, Height, 83.8 Start: 03-10-2022 See Instructions , Freestyle lite test strips. use 1 strip daily. Use as directed, # 100 EA, 2 Refill(s), [id number], Diabetes, 175, cm, 12/15/21 8:54:00 EDT, Height, 83.8 Start: 03-10-2022 [place] Thk1.65mm P tfe 4x.5in Cardiovascular Sterile - [id number] Start: 05-13-2018 Functional Status Date Assessment Result Facility 07-12-2025 Functional Status Minimum assistance [facility] 07-12-2025 Functional Status [facility] 07-12-2025 [facility] 06-14-2024 Functional Status Minimum assistance [facility] 06-14-2024 Functional Status ID band on, Call device within reach, Bed in low position, Wheels locked, Upper/Half-Length side-rails up, Visitor at bedside, Safety level maintained [facility] 12-30-2021 Functional Status 1 flight [employer] [employer] [facility] Mental Status Date Assessment Result Facility 07-12-2025 Mental Status Orientation Oriented x 4 [facility] 07-12-2025 Mental Status [facility] 06-14-2024 Mental Status Orientation Oriented x 4 [facility] 06-14-2024 Mental Status [facility] Clinical Notes 04-20-2018 to 07-12-2025 Note [...] upper back pain Trouble controlling your muscles 8185-0957 [employer]. [address] [place] [address], [place] [address]. All rights reserved. This information is not intended as a substitute for professional medical care. Always follow your healthcare professional's instructions. Follow Up Care 07/12/2025 09:18:39 With:Go to emergency room if symptoms worsen Address:Unknown When:2-4 days With:JLUIS NICHOLE DO Address: [address] [place] [phone] When:2-4 days [facility] 07-12-2025 Note Discharge Instructions Thank you for allowing [facility] to assist you with your healthcare needs. The following is important discharge information regarding your hospital visit. Diagnosis from Today's Visit Hyperkalemia What to Do Next Instructions from Your Care Team Potassium today was 5.2 on check here. Recommended to resume home Lokelma and to call leaf sorter for further outpatient management and following of potassium levels. Return to the emergency department for any acute concerns. No qualifying data available. Post Acute Orders No qualifying data available. You Need to Schedule the Following Appointments Follow Up with Go to emergency room if symptoms worsen When:Within 2-4 days Follow Up with JLUIS NICHOLE DO When:Within 2-4 days Where:[address] [place] [address] [phone] Allergies NKA Medications Please ask your primary [...] upper back pain Trouble controlling your muscles 5310-8985 [employer]. [address] [place] [address], [place] [address]. All rights reserved. This information is not intended as a substitute for professional medical care. Always follow your healthcare professional's instructions. Additional Information VACCINATE! IT SAVES LIVES! Members of the community who have not yet received the COVID-19 vaccine and would like to receive it can visit one of [facility] vaccine clinics. There are many vaccine clinic locations within the [facility]. For locations and available times, please visit [email or web address].[place]. gov/. It is important to note that some COVID mobile vaccine clinics are held outdoors and may be canceled in rainy or stormy conditions. To learn more about pediatric vaccinations (ages 5-11), we invite you to visit the [facility] webpage. https://www.[facility].org/p ages/6963-Pebxx-Mgwrbnweual-Freq inuzcc-Ipnjg-Lptwwkeyo.html To learn more about the COVID-19 vaccine, we invite you to visit the CDC website for a list of frequently asked questions. https://www.cdc.gov/coronavirus/ 2019-ncov/vaccines/faq.html [facility] Patient Portal Access Instructions: Stay connected with your healthcare team and access your personal medical information anytime with the [facility] [employer] Patient Portal. If you would like a full copy of your medical records please contact the [facility] Medical Records Department Wednesday through Wednesday between 8a.m. and 4:30p.m. Please follow the directions below to access the portal: 1.Access the email account you provided upon registration to the hospital.2.Look for an invitation email from [facility].3.Open the email and access the invitation link: Accept Invitation to [facility]4.Fill in the required liriano to create your account. To access your account, visit [email or web address] or scan the Pro V&V code above. Click the blue button labeled "Access Patient Portal" and then log in with the username [...] you will allow to register on the [facility] Patient Portal for access to your information. You can also access the [facility] Patient Portal on the [employer]. Simply click on "Health Records" under "Health Data" and then click on the [employer] logo. HOW TO SAFELY DISPOSE OF PRESCRIPTION [...] Call your local pharmacy or go to [email or web address] to find one close to you.3.Make use of household items: Use cat litter or old coffee grounds to dispose medications if other options are not available. Mix your drugs with these household products, seal them in an airtight container and throw it into the garbage. Call [facility]: [phone] to be sure your drugs can be [...] aware that I should contact my doctor. 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 MICRO - Microbiology [...] Locations *1: This test was performed at: [facility], [address] [place] [address], [facility] , [facility] 07-05-2025 Note Exam Date Time Procedure Performing Provider Status 07/05/25 9:[address] Head or Brain w/o Contrast LAYNE NAYAK MD; Auth (Verified) [id number] ORIGINAL EXAMINATION: CT HEAD TECHNIQUE: Axial CT [...] Sign Date: 07/05/2025 4:57:02 PM Ordering Provider: [facility]10-15-2025 Note* Exam Date Time Procedure Performing Provider Status 07/04/25 4:05 PM XR Humerus Minimum 2 Views Right LILIANA HENAO DO; Auth (Verified) [id number] ORIGINAL EXAMINATION: TWO XRAY VIEWS OF THE [...] Sign Date: 07/04/2025 5:10:20 PM Ordering Provider: [facility]10-15-2025 Note* Exam Date Time Procedure Performing Provider Status 07/04/25 4:02 PM XR Chest 2 Views JAIRO ROBERTSON DO; Auth (Verified) [id number] ORIGINAL EXAMINATION: TWO XRAY VIEWS OF THE [...] 4:38:56 PM Ordering Provider: JLUIS NICHOLE RP [facility]09-22-2025 [facility] [address] [place] [address], [address] [place] [address] OFFICE VISIT Date of Service: 06/11/25 MR#: [id number] Acct: [id number] Name: EKATERINA RANDHAWA Rep #: [id number] : 1940 Provider: Dr. Cora Doss MD Age/Sex: 85/M Location[facility] 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 He has occasional swallowing difficulties since around 2017;he compensates for this by taking small bites. [...] profile, liver profile (02/08/2025): Triglycerides 89 (normal), rjjnsqagtlr53 (normal), LDL 25(normal), HDL 38 (low) Cardiac [...] a history of myocardial infarction and CABG (2017). 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 Postoperative atrial [...] rarely substance use type: does not use arelis/samaritan: Basom seatbelt use: always Clinical Quality Measures Falls Risk Screening/Assistive Devices Have you fallen in the past year?: Yes Coding Level of Care Code Off vis,est,level 4 Diagnoses Parkinsonism, unspecified Parkinsonism type G20 Parkinsonism type: unspecified Mild cognitive impairment G31.84 Polyneuropathy G62.9 Restless legs syndrome G25.81 06/13/25 1511 ur > Date _ Braxton Simeonigner Signature: Date (if applicable) CC: ~ [facility]09-22-2025 Progress note Author Braxton Doss [facility] Note Date/Time June 11, 2025 2:41pm [facility] [address] [place] [address], [address] [place] [address] OFFICE VISIT Date of Service: 06/11/25 MR#: [id number] Acct: [id number] Name: EKATERINA RANDHAWA Rep #: [id number] : 1940 Provider: Dr. Cora Doss MD Age/Sex: 85/M Location[facility] Status: Signed HPI HPI Chief Complaint: Details: [...] this began during his hospitalization for his IL/CABG and may have been procedure related). He [...] profile, liver profile (02/08/2025): Triglycerides 89 (normal), mbvhxpsxqmu01 (normal), LDL 25 (normal), HDL 38 (low) [...] a history of myocardial infarction and CABG (2017). He takes aspirin 81 mg daily and [...] for his fatigue. 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 Essential hypertension Atherosclerotic heart disease of assinibo[place] and si[place] coronary artery without angina pectoris Postoperative atrial [...] rarely substance use type: does not use arelis/samaritan: Basom seatbelt use: always Clinical Quality Measures Falls Risk Screening/Assistive Devices Have you fallen in the past year?: Yes Coding Level of Care Code Off vis,est,level 4 Diagnoses Parkinsonism, unspecified Parkinsonism type G20 Parkinsonism type: unspecified Mild cognitive impairment G31.84 Polyneuropathy G62.9 Restless legs syndrome G25.81 06/13/25 1511 <Electronically signed by Braxton light MD> Date _ Braxton Doss MD Cosigner Signature: Date (if applicable) CC: ~ [facility] Work Phone: 1(669) 449-195908-08-2025 Radiology Diagnostic study note [facility] Imaging Services [address] [place] [address] [id number] Kidney and Bladder MR#: [id number] Acct: [id number] Name: EKATERINA RANDHAWA Rep #: [id number] : 1940 M 85 From: Joesph Leon MD PCP: Dr. Jluis Nichole DO Status: REG CLI Study:Kidney and Bladder Date of Exam: 0 04/26/25 Exam# [id number] Ordering Dr: Seth Bass DO PROCEDURE: KIDNEY AND BLADDER 04/26/2025 REASON FOR EXAM: HYPERKALEMIA TECHNIQUE: KIDNEY AND BLADDER COMPARISON: None FINDINGS: Kidneys: Normal renal sizes, parenchymal thicknesses, and echotextures. [place]: No evidence of hydronephrosis. Cysts or Masses: [...] Bladder IMPRESSION: NORMAL RENAL ULTRASOUND. Reading Location: [id number] CC: Dr. Porsha Bass, DO; Dr. Jluis Nichole DO ~ [employer] Hcm Developer: Signed [facility]07-09-2025 Evaluation note* Diagnosis Onset Date Resolution Status Admit Date Restless legs syndrome acute Ju 2024 9:39am Mild cognitive impairment chronic March 28, 2025 9:39am Parkinsonism chronic March 28 9:39am Polyneuropathy inactive March 28, 2025 9:39am Restless legs syndrome acute Se pt2024 1:49pm Mild cognitive impairment chronic June 11, 2025 1:49pm Parkinsonism chronic June 112024 1:49pm Polyneuropathy inactive June 11, 2025 1:49pm [facility] Work Phone: 1(160) 950-390206-05-2025 Hospital Discharge instructions Patient Education 02/22/2025 18:52:22 [...] for life. Yourdoctor can tell you more. 7358-2664 [employer]. [address] [place] [address], [place] [address]. All rights reserved. This information is not intended as a substitute for professional medical care. Always follow your[facility]illicothe hospitalcare professional's instructions. 02/22/2025 18:52:13 Renal Insufficiency [...] vessels (vasculitis) Viral or bacterial infection Some rvsl-rge-ivgiryu (OTC) pain medicines can cause renal failure [...] help you quit. For more information, visit: osmokefree.gov/sites/default/files/pdf/mhmvodzb-gus-nqi-accessible.pdf owww.smokefree.gov owww.cancer.org/healthy/stayawayfromtobacco/guidetoquittingsmoking/ Talk with your healthcare provider [...] one of the following for more information: [place] [employer] Kidney Patients, www.aakp.org National Kidney Foundation, www.kidney.org [employer], www.kidneyfund.org National Kidney Disease Education [...] or you aren t able to urinate 3918-6550 [employer]. [address] [place] [address], [place] [address]. All rights reserved. This information is not [...] as systemic lupus erythematosus, sickle cell, or Butts disease How is this test done? The [...] if you are taking any medicine, including pscp-qbs-vtocwin NSAIDs. Be sure your healthcare provider knows about all medicines, herbs, vitamins, and supplements you are taking. This includes medicines that don't need a prescription and any illicit drugs you may use. 6724-0855 [employer]. [address] [place] [address]. All rights reserved. This information is not intended as a substitute for professional medical care. Always follow yourhealthcare professional's instructions. Follow Up Care 02/22/2025 17:19:54 With:Your leaf sorter Address:Unknown When:2-4 days Comments:Schedule appointment as soon as possibleReturn to ED if symptoms worsenCall in the morning for follow-up laboratory studies can return to the ER for any developing symptoms With:JLUIS NICHOLE Address: [address] [facility] [place] [address]- [phone] Business (1) When:2-4 days [facility] 06-05-2025 Emergency department Discharge summary Discharge Instructions Thank you for allowing [facility] to assist you with your healthcare needs. The following is importantdischarge information regarding your hospital visit. What to Do Next Instructions from Your Care Team No qualifying data available. Post Acute Orders No qualifying data available. You Need to Schedule the Following Appointments Follow Up with Your leaf sorter When:Within 2-4 days Additional Information: Schedule appointment as soon as possible Return to ED if symptoms worsen Call in the morning for follow-up laboratory studies can return to the ER for any developing symptoms Follow Up with JLUIS NICHOLE When:Within 2-4 days Where:[address] [place] [address] [place] [address]- [phone] Business (1) Allergies NKA Medications Please [...] for life. Yourdoctor can tell you more. 6910-6992 [employer]. [address] [place] [address], [place] [id number]. All rights reserved. This information is not intended as a substitute for professional medical care. Always follow your[facility]illicothe hospitalcare professional's instructions. Renal Insufficiency Your kidneys remove [...] vessels (vasculitis) Viral or bacterial infection Some xsjy-hjp-xmrmyku (OTC) pain medicines can cause renal failure [...] help you quit. For more information, visit: Get Fractal.gov/sites/default/files/pdf/scvhvnjr-rqs-amx-accessible.pdf owww.smokefree.gov owww.cancer.org/healthy/stayawayfromtobacco/guidetoquittingsmoking/ Talk with your healthcare provider [...] one of the following for more information: [employer], www.aakp.org National Kidney Foundation, www.kidney.org [employer], www.kidneyfund.org National Kidney Disease Education [...] or you aren t able to urinate 3587-7003 The [employer]. [address] [place] [address]. All rights reserved. This information is not [...] as systemic lupus erythematosus, sickle cell, or Butts disease How is this test done? The [...] if you are taking any medicine, including urmn-tpl-vupuiml NSAIDs. Be sure your healthcare provider knows about all medicines, herbs, vitamins, and supplements you are taking. This includes medicines that don't need a prescription and any illicit drugs you may use. [id number] [employer]. [address] [place] [address], [place] [address]. All rights reserved. This information is not intended as a substitute for professional medical care. Always follow yourhealthcare professional's instructions. Additional Information VACCINATE! IT SAVES LIVES! Members of the community who have not yet received the COVID-19 vaccine and would like to receive it can visit one of [facility] vaccine clinics. There are many vaccine clinic locations within the [facility]. For locations and available times, please visit www.[email or web address]/. It is important to note that some COVID mobile vaccine clinics are held outdoors and may be canceled in rainy or stormy conditions. To learn more about pediatric vaccinations (ages 5-11), we invite you to visit the [facility] webpage. https://www.[employer].org/pages/9926-Dqkno-Bioscnxlbgy-Boguockcfo-Cqdok-Lmp stions.htmlTo learn more about the COVID-19 vaccine, we invite you to visit the CDC website for a list of frequently asked questions. https://www.cdc.gov/coronavirus/2019-ncov/vaccines/faq.html [facility] Patient Portal Access Instructions: Stay connected with your healthcare team and access your personal medical information anytime with the [facility] Patient Portal. If you would like a full copy of your medical records please contact the [facility] Medical Records Department Wednesday through Wednesday between 8a.m. and 4:30p.m. Please follow the directions below to access the portal: 1.Access the email account you provided upon registration to the hospital.2.Look for an invitation email from [facility].3.Open the email and access the invitation link: Accept Invitation to [facility]4.Fill in the required liriano to create your account. Sign into [email or web address].[email or web address] with your username and password that you [...] you will allow to register on the [facility] Patient Portal for access to your information. You can also access the [facility] Patient Portal on the [employer] josee. Simply click on "Health Records" under "HealthData" and then click on the [employer] logo. HOW TO SAFELY DISPOSE OF PRESCRIPTION [...] Call your local pharmacy or go to http://XVionics.LLLer/9Q5Zh3c to find one close to you.3.Make use of household items: Use cat litter or old coffee grounds to dispose medications if other options arenot available. Mix your drugs with these household products, seal them in an airtight container andthrow it into the garbage. Call [facility]: [phone] to be sure your drugs can be [...] aware that I should contact my doctor. 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 The following is importantdischarge information regarding your hospital visit. What to Do Next Instructions from Your Care Team No qualifying data available. Post Acute Orders No qualifying data available. You Need to Schedule the Following Appointments Follow Up with Your leaf sorter When:Within 2-4 days Additional Information: Schedule appointment as soon as possible Return to ED if symptoms worsen Call in the morning for follow-up laboratory studies can return to the ER for any developing symptoms Follow Up with JLUIS NICHOLE When:Within 2-4 days Where:0 [facility] [place] [address]- [phone] Business (1) Allergies NKA Medications Please ask [...] for life. Yourdoctor can tell you more. [phone] [employer]. [address] [place] [address]. All rights reserved. This information is not [...] vessels (vasculitis) Viral or bacterial infection Some objv-ojn-vxxihhz (OTC) pain medicines can cause renal failure [...] help you quit. For more information, visit: osmokefree.gov/sites/default/files/pdf/fhiuzsns-cog-oqq-accessible.pdf owww.smokefree.gov owww.cancer.org/healthy/stayawayfromtobacco/guidetoquittingsmoking/ Talk with your healthcare provider [...] one of the following for more information: [place] [employer] Kidney Patients, www.aakp.org National Kidney Foundation, www.kidney.org [employer], www.kidneyfund.org National Kidney Disease Education [...] or you aren t able to urinate 6801-8643 [employer]. [address] [place] [address], [place] [address]. All rights reserved. This information is not [...] as systemic lupus erythematosus, sickle cell, or Butts disease How is this test done? The [...] if you are taking any medicine, including miat-pia-wnsqdha NSAIDs. Be sure your healthcare provider knows about all medicines, herbs, vitamins, and supplements you are taking. This includes medicines that don't need a prescription and any illicit drugs you may use. 2361-8216 [employer]. [address] [place] [address]. All rights reserved. This information is not intended as a substitute for professional medical care. Always follow yourhealthcare professional's instructions. Additional Information VACCINATE! IT SAVES LIVES! Members of the community who have not yet received the COVID-19 vaccine and would like to receive it can visit one of [facility] vaccine clinics. There are many vaccine clinic locations within the [facility]. For locations and available times, please visit www.[email or web address].[email or web address]/. It is important to note that some COVID mobile vaccine clinics are held outdoors and may be canceled in rainy or stormy conditions. To learn more about pediatric vaccinations (ages 5-11), we invite you to visit the [facility] webpage. https://www.[facility].org/pages/2573-Imgor-Rnymntngnvg-Raexanzxki-Naczz-Bxt stions.htmlTo learn more about the COVID-19 vaccine, we invite you to visit the CDC website for a list of frequently asked questions. https://www.cdc.gov/coronavirus/2019-ncov/vaccines/faq.html [facility] Patient Portal Access Instructions: Stay connected with your healthcare team and access your personal medical information anytime with the [facility] Patient Portal. If you would like a full copy of your medical records please contact the [facility] Medical Records Department Wednesday through Wednesday between 8a.m. and 4:30p.m. Please follow the directions below to access the portal: 1.Access the email account you provided upon registration to the [facility].2.Look for an invitation email from [facility].3.Open the email and access the invitation link: Accept Invitation to [facility] [place] [facility]4.Fill in the required liriano to create your account. Sign into www.[employer] with your username and password that you [...] you will allow to register on the [facility] Patient Portal for access to your information. You can also access the [facility] Patient Portal on the [employer]. Simply click on "Health Records" under "HealthData" and then click on the [employer] logo. HOW TO SAFELY DISPOSE OF PRESCRIPTION [...] Call your local pharmacy or go to http://bit.ly/0U2Iz9h to find one close to you.3.Make use of household items: Use cat litter or old coffee grounds to dispose medications if other options arenot available. Mix your drugs with these household products, seal them in an airtight container andthrow it into the garbage. Call [facility]: [phone] to be sure your drugs can be [...] aware that I should contact my doctor. 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 (Verified) ECG Final Report Sinus rhythm RBBB and LAFB SEE DICTATION Electronic Signature: DAVID LAST MD 02/22/2025 17:49:20 [facility]05-30-2025 Evaluation note* Diagnosis Onset Date Resolution [...] 9:39am Polyneuropathy inactive March 28, 2025 9:39am [facility] Work Phone: 1(562) 938-370203-12-2025 Evaluation note* Diagnosis Onset Date Resolution Status [...] 9:39am Polyneuropathy inactive March 28, 2025 9:39am [facility] Work Phone: [phone]) [phone] Evaluation note* Diagnosis Onset Date Resolution Status Admit Date Contusion of right foot acute F ebruary 2024 10:14am Restless legs syndrome acute [facility] 2024 9:45am Mild cognitive impairment chronic November 29, 2024 9:45am Parkinsonism chronic November 29, 2024 9:45am Polyneuropathy inactive November 9:45am [facility] Work Phone: [phone] Evaluation note* Diagnosis Onset Date Resolution Status Admit Date Contusion of right foot acute F ebruary 2024 10:14am Restless legs syndrome acute Ma [facility] 2024 9:45am Mild cognitive impairment chronic November 29, 2024 9:45am Parkinsonism chronic November 29, 2024 9:45am Polyneuropathy inactive November 9:45am Essential hypertension chronic Ma y 2024 3:33pm Hyperlipidemia chronic February 16, 2025 3:33pm Ischemic cardiomyopathy chronic M ay 2024 3:33pm Paroxysmal atrial fibrillation chronic February 16, 2025 3 :33pm 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 Author [...] 58 Temp (Src) 97.1 (Temporal) Ht 5' 8" (1.73m) Wt 197 lb (89.4kg) SpO2 96% BMI 29.96 kg/(m2). GENERAL APPEARANCE: Well appearing, in no acute distress, alert and oriented x3, well-hydrated, well nourished. I spent a total of 30 minutes on the date of the service which included preparing to see the patient, fvcc-dl-myic patient care, completing clinical documentation, obtaining and/or reviewing separately obtained history, counseling and educating the patient/family/caregiver, ordering medications, tests, or procedures, independently interpreting results (not separately reported), and communicating results to the patient/family/caregiver. Electronically Signed: Toney Gutierrez MD September 12, 2024 10:42 [facility]12-24-20[facility] History of Present illness Narrative* Toney Gutierrez [...] 58 Temp (Src) 97.1 (Temporal) Ht 5' 8" (1.73m) Wt 197 lb (89.4kg) SpO2 96% BMI 29.96 kg/(m^2). GENERAL APPEARANCE: Well appearing, in no acute distress, alert and oriented x3, well-hydrated, well nourished. I spent a total of 30 minutes on the date of the service which included preparing to see the patient, lqzs-yj-rqzx patient care, completing clinical documentation, obtaining and/or reviewing separately obtained history, counseling and educating the patient/family/caregiver, ordering medications, xenia ts, or procedures, independently interpreting results (not separately reported), and communicating results to the patient/family/caregiver. Electronically Signed: Toney Gutierrez MD September 12, 2024 10:42 [facility] Discharge instructions Patient Education 06/14/2024 11:49:32 [...] some information about medicine: You may use wbok-qtp-lzymjmb medicine such as acetaminophen or ibuprofen to [...] Bleeding not controlled by direct pressure [employer]. [address] [place] [address]. All rights reserved. This information is not [...] streaks around the wound oDraining pus [employer]. [address] [place], [place] [address]. All rights reserved. This information is not intended as a substitute for professional medical care. Always follow yourhealthcare professional's instructions. Follow Up Care 06/14/2024 11:11:49 With:Go to emergency room if symptoms worsen Address: When:3-7 days With:JLUIS NICHOLE DO Address: [address] [place] [phone] When:2-4 days [facility] 09-25-2024 Note Discharge Instructions Thank you for allowing [facility] to assist you with your healthcare needs. [...] with JLUIS NICHOLE DO When:Within 2-4 days Where:0 [facility] [place] [phone] Allergies NKA Medications Please ask your primary [...] some information about medicine: You may use uers-qyu-zcrasuu medicine such as acetaminophen or ibuprofen to [...] Bleeding not controlled by direct pressure [employer]. [address] [place] [address]. All rights reserved. This information is not [...] streaks around the wound oDraining pus [employer]. [address] [place] [address]. All rights reserved. This information is not intended as a substitute for professional medical care. Always follow yourhealthcare professional's instructions. Additional Information VACCINATE! IT SAVES LIVES! Members of the community who have not yet received the COVID-19 vaccine and would like to receive it can visit one of [facility] vaccine clinics. There are many vaccine clinic locations within the [facility]. For locations and available times, please visit www.[email or web address]/. It is important to note that some COVID mobile vaccine clinics are held outdoors and may be canceled in rainy or stormy conditions. To learn more about pediatric vaccinations (ages 5-11), we invite you to visit the [facility] webpage. https://www.[facility].org/pages/3162-Onygg-Aygxtiqwgiu-Mvziaacsiy-Qckrc-Big stions.htmlTo learn more about the COVID-19 vaccine, we invite you to visit the CDC website for a list of frequently asked questions. https://www.cdc.gov/coronavirus/2019-ncov/vaccines/faq.html [facility] Patient Portal Access Instructions: Stay connected with your healthcare team and access your personal medical information anytime with the [facility] Patient Portal. If you would like a full copy of your medical records please contact the [facility] Medical Records Department Wednesday through Wednesday between 8a.m. and 4:30p.m. Please follow the directions below to access the portal: 1.Access the email account you provided upon registration to the hospital.2.Look for an invitation email from [facility].3.Open the email and access the invitation link: Accept Invitation to [facility]4.Fill in the required liriano to create your account. Sign into www.[employer] with your username and password that you [...] you will allow to register on the [facility] Patient Portal for access to your information. You can also access the [facility] Patient Portal on the [employer] joese. Simply click on "Health Records" under "[employer]" and then click on the [facility] logo. HOW TO SAFELY DISPOSE OF PRESCRIPTION [...] Call your local pharmacy or go to http://bit.LLLer/1O0Jf0p to find one close to you.3.Make use of household items: Use cat litter or old coffee grounds to dispose medications if other options arenot available. Mix your drugs with these household products, seal them in an airtight container andthrow it into the garbage. Call [facility]: [phone] to be sure your drugs can be [...] aware that I should contact my doctor. 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, chronic Mild cognitive impairment ac [place] Polyneuropathy acute Parkinson's disease noneacti [facility] Work Phone: Evaluation + Plan note Future Appointments Appointment Date:12/15/2021 09:30:00 AM Scheduled Provider:LAYNE DOHERTY DO Location: [facility] Appointment Type:PC OV Future Scheduled Tests Laboratory* Basic Metabolic Panel 05/08/21 * Vancomycin Level Trough - Panel 05/08/21 [facility] Evaluation + Plan note Future Appointments Appointment Date:01/20/2022 10:00:00 AM Scheduled Provider: Location:[facility] Appointment Type:PT Treatment - [place] Appointment Date:01/22/2022 10:00:00 AM Scheduled Provider: Location:[facility] Appointment Type:PT Treatment - [place] Appointment Date:01/27/2022 10:00:00 AM Scheduled Provider: Location:[facility] Appointment Type:PT Treatment - [place] Appointment Date:01/30/2022 10:00:00 AM Scheduled Provider: Location:[facility] Appointment Type:PT Treatment - [place] Appointment Date:06/18/2022 09:00:00 AM Scheduled Provider:LAYNE DOHERTY DO Location: [facility] Appointment Type:PC Wellness Medicare with Labs [facility] Evaluation + Plan note Future Appointments Appointment Date:04/16/2022 07:30:00 AM Scheduled Provider:LAYNE DOHERTY DO Location:[facility] Appointment Type:PC OV Appointment Date:06/18/2022 09:00:00 AM Scheduled Provider:LAYNE DOHERTY DO Location:[facility] Appointment Type:PC Wellness Medicare with Labs [facility] Evaluation + Plan note Future Appointments Appointment Date:06/18/2022 09:00:00 AM Scheduled Provider:LAYNE DOHERTY DO Location:[facility] Appointment Type:PC Wellness Medicare with Labs Appointment Date:08/18/2022 07:30:00 AM Scheduled Provider:LAYNE DOHERTY DO Location:[facility] Appointment Type:PC OV [facility] Evaluation + Plan note Future Appointments Appointment Date:09/21/2022 09:00:00 AM Scheduled Provider:LAYNE DOHERTY DO Location:[facility] Appointment Type:PC OV Appointment Date:10/07/2022 09:00:00 AM Scheduled Provider:JLUIS NICHOLE DO Location:[facility] Appointment Type:PC 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 [facility] Evaluation + Plan note Future Appointments Appointment Date:11/09/2022 02:00:00 PM Scheduled Provider: Location:[facility] Appointment Type:VL AOH - Venous US/Doppler Both Legs (fo Appointment Date:06/22/2023 09:00:00 AM Scheduled Provider:JLUIS NICHOLE DO Location:[facility] Appointment Type:PC Wellness Medicare Future Scheduled Tests Laboratory* Stool for Occult Blood (Lab) 10/11/22 [facility] Evaluation + Plan note Future Appointments Appointment Date:07/18/2024 09:00:00 AM Scheduled Provider:JLUIS NICHOLE DO Location:[facility] Appointment Type:PC Wellness Medicare [facility] Evaluation + Plan note Future Appointments Appointment Date:06/21/2024 09:00:00 AM Scheduled Provider:MARTIR WEBB Location:[facility] Appointment Type:PC OV ED Follow Up Appointment Date:07/18/2024 09:00:00 AM Scheduled Provider:JLUIS NICHOLE DO Location:[facility] Appointment Type:PC Wellness Medicare [facility] evaluation + Plan note Future Appointments Appointment Date:08/11/2024 10:00:00 AM Scheduled Provider:JLUIS NICHOLE DO Location:[facility] Appointment Type:PC Wellness Medicare [facility] Evaluation + Plan note Future Appointments Appointment Date:02/08/2025 10:00:00 AM Scheduled Provider:JLUIS NICHOLE DO Location:[facility] Appointment Type:[facility] evaluation + Plan note Future Appointments Appointment Date:05/23/2025 10:00:00 AM Scheduled Provider:JLUIS NICHOLE DO Location:[facility]ment Type:[facility] Future Scheduled Tests Laboratory* Basic Metabolic Panel 02/22/25 * N-Terminal proBNP 02/21/25 [facility] Business Labaluation + Plan note Future Appointments Appointment Date:07/05/2025 10:00:00 AM Scheduled Provider: Carmen:[facility] Appointment Type:CT Head or Brain w/o Contrast Appointment Date:09/05/2025 02:00:00 PM Scheduled Provider:JLUIS NICHOLE DO Location:[facility] Appointment Type:PC Wellness Medicare Future Scheduled Tests Radiology* CT Head or Brain w/o Contrast 07/05/25 * XR Chest 2 Views (PA & Lateral) 07/04/25 [facility] Business Labaluation + Plan note Future Appointments Appointment Date:09/05/2025 02:00:00 PM Scheduled Provider:JLUIS NICHOLE DO Location:[facility] Appointment Type:PC Wellness Medicare Future Scheduled Tests Laboratory* Potassium Level 07/08/25 Radiology* XR Chest 2 Views (PA & Lateral) 07/04/25 [facility] evaluation note* Diagnosis Onset Date Resolution Status Atherosclerotic heart diseas e of [place] coronary artery without angina pectoris chronic Essential hypertension chron ic Hyperlipidemia chronic 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 Paroxysmal atrial fibrillation chronic [facility] Work Phone: Evaluation note* Diagnosis Onset Date Resolution Status Atherosclerotic heart diseas e of [place] coronary artery without angina pectoris chronic Essential hypertension chron ic Hyperlipidemia chronic 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 Paroxysmal atrial fibrillation chronic Mild cognitive impairment ac [place] Polyneuropathy acute Parkinson's disease noneacti ve [facility] Work Phone: Evaluation note* Diagnosis Thrombocytopenia (HCC)- Primary Thrombocytopenia, unspecified Anemia, unspecified type documented in this encounter [facility] [place] [facility] Narrative No data available for this section [facility] Hospital Discharge instructions No data available for this section [facility] Progress note No data available for this section [facility] Reason for referral (narrative)No reason for referral information availableWMercy [facility] Work Phone: Summary Purpose Family History No Family History Records Found Relationship Condition Age at Onset Recorded Date/T gwyn father Myocardial infarction Unknown Advance Directives No Advanced Directives Records Found Advance Directive Response Recorded Date/ Time Living Will Yes March 22, 2019 1 0:10am Power of Market Specialist Yes March 22, 2019 10:10am Advance Directive Response Recorded Date/ Time Living Will Yes March 22, 2019 1 0:10am Do you have a [facility] Power of Market Specialist? Yes March 22, 2019 10:10am Chief Complaint and Reason for Visit Chief Complaint ATAXIA 6 M FU Reason for Visit Atherosclerotic hear t disease of [place] coronary artery without angina pectoris Essential hypertension Hyperlipidemia Ischemic cardiomyopathy Paroxysmal atrial fibrillation Chief Complaint 6 m fu Parkinson's disease EORDER Reason for Visit Atherosclerotic hear t disease of [place] coronary artery without angina pectoris Essential hypertension Hyperlipidemia Ischemic cardiomyopathy Paroxysmal atrial fibrillation Mild cognitive impairment Polyneuropathy Parkinson's disease Chief Complaint 6 m fu Parkinson's disease EORDER PARKINSONS Reason for Visit Atherosclerotic hear t disease of [place] coronary artery without angina pectoris Essential hypertension [...] 9:39a m Restless legs syndrome June 11, 025 1:49pm Mild cognitive impairment May 1:49pm 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, 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 Polyneuropathy June 11, 2025 1:49pm Additional Source Comments (unrecognized sect ion and content) No Status Records FoundNo Status Records FoundNo Status Records FoundNo Status Records FoundNo Status Records FoundNo Status Records Found INFORMATION SOURCE (unrecogn ized section and content) DATE CREATED AUTHOR 06/01/2018 [facility] DATE CREATED AUTHOR AUTHOR'S ORGANIZ ATION 02/22/2024 [facility] ([place]) DATE CREATED AUTHOR AUTHOR'S ORGANIZ ATION 06/09/2025 [facility] DATE CREATED AUTHOR AUTHOR'S ORGANIZ ATION 07/16/2025 [facility] DATE CREATED AUTHOR AUTHOR'S ORGANIZ ATION 07/26/2025 [facility] DATE CREATED AUTHOR AUTHOR'S ORGANIZ ATION 07/27/2025 [facility] Care Team (unrecognized sect ion and content) Team Status: Active Member Role Status Dates Dr. Layne Doherty DO Family Provider Active Dr. Layne Doherty DO Primary Care Provider Active Team Status: Inactive Member Role Status Dates Dr. Layne Doherty DO Primary Care Provider, Referrin g Provider Active Maryuri Begum 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, 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-C Attending Provider Active Team Status: Inactive Member [...] Doherty DO Referring Provider Active Maryuri Begum NP, 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-C Attending Provider Active Dr. Jluis Nichole DO Primary Care Provider Active Team Status: Inactive Member Role Status Dates Dr. Layne Doherty DO Referring Provider Active Dr. Braxton Doss MD Attending Provider Active Dr. Jluis Nichole DO Primary Care Provider Active Team Status: Inactive Member Role Status Dates Dr. Jluis Nichole DO Primary Care Provider Active Dr. Braxton Doss MD Attending Provider Active Eyeglass Inspector Relationship Specialty Start Date End Date Jluis Nichole DO [address] [place] [address] PCP - General Family Medicine 09/12/24 Adonis Joaquin MD [address] [place] [address] Primary Staff Physician Cardiology 12/06/18 Team Status: Inactive Member Role Status Dates Dr. Jluis Nichole DO Primary Care Provider Active Start: November 16, 2024 End: November 16, 2024 Dr. Jluis Nichole DO Referring Provider Active St art: November 16, 2024 End: November 16, 2024 Elijah CONTE, PA Attending Provider Active Sta rt: November 16, [...] 2025 End: February 08, 2025 Maryuri Begum 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, 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-C Attending Provider Active S tart: February 08, 2025 End: February 08, 2025 Maryuri Begum 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, 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-C Referring Provider Active S tart: February 08, 2025 End: February 08, 2025 Team Status: Inactive Member Role Status Dates Dr. Jluis Nichole DO Primary Care Provider Active Start: February 16, 2025 End: February 16, 2025 Dr. Jluis Nichole DO Referring Provider Active St art: February 16, 2025 End: February 16, 2025 Bailey Howe PA, PA Attending Provider Active Start: February 16, [...] 2025 End: February 08, 2025 Maryuri Begum 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, 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-C Attending Provider Active S tart: February 08, 2025 End: February 08, 2025 Maryuri Begum 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, 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-C Referring Provider Active S tart: February 08, [...] 2025 End: February 08, 2025 Maryuri Begum 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, 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-C Attending Provider Active S tart: February 08, 2025 End: February 08, 2025 Maryuri Begum 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, 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-C Referring Provider Active S tart: February 08, [...] End: March 28, 2025 OBIE Fernández Attending Provider Active S tart: March 28, [...] 2025 End: April 10, 2025 Sharon Parsons 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-C Attending physician Active Start: April 10, 2025 End: April 10, 2025 Sharon Parsons 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-C Referring Provider Active S tart: April 10, 2025 End: April 10, 2025 Dr. Porsha Bass DO Nurse Practitioner Active Start: April 10, 2025 End: April 10, 2025 Team Status: Active Member Role/Relationship Status Dates Dr. Jluis Nichole DO Primary care physician Active Start: April 10, 2025 Dr. Cecilio Siu MD Attending physician Active Start: April 10, 2025 Sharon Parsons 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-C Referring Provider Active S tart: April 10, 2025 Team Status: Inactive Member Role/Relationship Status Dates Dr. Jluis Nichole DO Primary care physician Active Start: April 19, 2025 End: April 19, 2025 Dr. Porsha Bass DO Attending physician Active Start: April 19, 2025 End: April 19, 2025 Team Status: Inactive Member Role/Relationship Status Dates Dr. Jluis Nichoel DO Primary care physician Active Start: April [...] and content) Care Team Personnel Name: Ashley Corearroosevelt Bailey PT Position: P3 Scheduling - Entry Processor Advanced Member Role: Other Name: LAYNE DOHERTY DO Position: P4 Physician - Primary Care Med Service: Active Provider Member Role: Primary Care Physician Address: Address: [address] [place] [address] Care Team Related Persons Name: EDISDEBI WEBER Address: Home [address] [place] [phone] [place] Care Team Personnel Name: Ashley Coreark Lynn PT Position: P3 Scheduling - Entry Processor Advanced Member Role: Other Name: LAYNE DOHERTY DO Position: P4 Physician - Primary Care Med Service: Active Provider Member Role: Primary Care Physician Address: Address: [address] [place] [address] Care Team Related Persons Name: EDISDEBI WEBER Address: Home [address] [place] [phone] [place] Care Team Personnel Name: Ashley Corea PT Position: P3 Scheduling - Entry Processor Advanced Member Role: Other Name: LAYNE DOHERTY DO Position: P4 Physician - Primary Care Member Role: Primary Care Physician Address: Address: [address] [place] [address] Care Team Related Persons Name: EDIS DEBI Address: Home [address] [place], [place] [phone] [place] Care Team Personnel Name: Ashley Corearroosevelt Bailey PT Position: P3 Scheduling - Entry Processor Advanced Member Role: Other Name: JLUIS NICHOLE DO Position: P4 Physician - Primary Care Member Role: Primary Care Physician Address: Address: [address] [place] [phone] [place] Care Team Related Persons Name: EDISDEBI WEBER Address: Home [address] [place], [place] [phone] [place] Care Team Personnel Name: Ashley Coreaapurva Bailey PT Position: P3 Scheduling - Entry Processor Advanced Member Role: Other Name: JLUIS NICHOLE Position: P4 Physician - Primary Care Member Role: Primary Care Physician Address: Address: [address] [facility] [place] [address]- Care Team Related Persons Name: DEBI RANDHAWA Address: Home [address] [place], [place] [phone] Source Comments (unrecognize d section and content) In the event this informatio n is protected by the Federal Confidentiality of Alcohol and Drug Abuse Patient Records regulations: The Federal rules restrict any use of the information to criminally investigate or prosecute any alcohol or drug abuse patient.[facility] Reason for Visit (unrecogniz ed section and [...] BE BASED ON THE PRIMARY CLINICAL RECORDS. [facility] [employer] [facility]. provides no warranty or guarantee of the accuracy or completeness of information in this document.
[2025-07-31 07:32] LABS: Hematocrit 28.5 % (40-54); Hemoglobin 9.1 g/dL (13.0-16.5); Immature Granulocytes Count 0.040 X10^3/uL (0.0-0.0); Mean Corp Hgb Conc 31.9 g/dL (32-36); Mean Corpuscular Volume 97.6 fL (80-94); Mean Platelet Vol. 9.8 fl (6.2-12.0); NRBC Flagged by Analyzer 0 % (0-5); POSITIVE COUNT YES; Platelet Count 75 K/mm3 (150-450); RBC Distribution Width CV 14.7 % (11.6-14.6); RBC Distribution Width SD 53.3 fl (35.1-43.9); Red Blood Count 2.92 M/mm3 (4.6-6.2); White Blood Count 5.8 K/mm3 (4.4-11.0)
[2025-07-31 07:45] LABS: Cholesterol 74 mg/dL (<=200); Low Density Lipoprotein Calc. 29 mg/dL; Triglycerides 79 mg/dL; Very Low Density Lipoprotein 16 mg/dL (5-40); cholesterol:hdl ratio screen 2.63
[2025-07-31 07:52] LABS: AST(SGOT) 15 U/L (<=37); Alanine Aminotransfer ALT/SGPT < 5 U/L (<=46); Albumin, Serum 3.5 g/dL (3.4-4.8); Alkaline Phosphatase 67 U/L (40-129); Anion Gap 9 (5-15); BUN 22 mg/dL (4-19); BUN/Creat Ratio 11.9 RATIO (10-20); Calcium,Total 8.8 mg/dL (7.6-11.0); Carbon Dioxide 24.9 mmol/L (21.0-32.0); Chloride 109 mmol/L (98-108); Globulin 1.8 g/dL (2.2-4.2); Glucose 100 mg/dL (70-99); Potassium 3.7 mmol/L (3.3-5.1)
[2025-07-31 07:59] LABS: Differential Indicated SCAN CRITERIA MET
== END ==
LOC: OLS.WHLTSB 05:00
PROVIDERS: PCP Student in an Organized Health Care Education/Training Program; Visit Provider Internal Medicine
DX: E11.22 Type 2 diabetes mellitus with diabetic chronic kidney disease (principal); N18.4 Chronic kidney disease, stage 4 (severe); E78.5 Hyperlipidemia, unspecified; F41.9 Anxiety disorder, unspecified; M19.90 Unspecified osteoarthritis, unspecified site
CPT/HCPCS: 36415; 80053; 80061; 83036; 85025

== ENCOUNTER → 2025-08-07 | Outpatient (REF) | payer MEDICARE, OTHER, SELFPAY ==
--- OUTSIDE RECORDS SUMMARY | 2025-08-07 03:17 | XMS RPT_ITS | CCD ---
Author Organization [facility] Care Team Providers Care Police Records Clerk Name Role Phone ARTEM ACEVEDO Unavailable Unavailable [facility] Unavailable Unavailable [facility] Unavailable Unavailable LAYNE DOHERTY DO Primary Care Physician Anmol OLIVA, Lynn Unavailable Unavailable Dr. Layne Doherty Primary Care Provider [phone]. Layne Doherty Referring Provider Dr. Satish Razo Attending Provider [phone] DAYANARA LEE, DR BAZZI Primary Care Physician [phone] Dr. Layne Doherty Primary Care Provider Dr. Layne Doherty Referring Provider Roof RUNNER MAN, RUNNER MAN-Mayra Murphy Attending Provider Dr. Braxton Doss Attending Provider Dr. Layne Doherty Referring Provider [phone] Roof RUNNER MAN, RUNNER MAN-C Maryuri Murphy Attending Provider Dr. Jluis Nichole [...] Care Provider [phone] Dayanara LEE, Dr. aBzzi Primary Care Provider Dayanara LEE, Dr. Bazzi Referring Provider [phone] Elijah Mills Attending Provider Romario ROMAN, Dr. Limon Attending Provider Shy RUNNER MAN-C, Maryuri Murphy Attending Provider Shy RUNNER MAN-C, Maryuri Murphy Referring Provider Bailey Salcedo Attending Provider Dayanara LEE, Dr. Bazzi Primary Care Provider Dayanara LEE, Dr. Bazzi Referring Provider [phone] Issa FARRIS-CSharon Attending Provider Dayanara LEE, Dr. Bazzi Primary Care Provider Dayanara LEE, Dr. Bazzi Referring Provider [phone] Bailey Salcedo Referring Provider Dr. Cheng Camarillo MD Attending Provider Issa FARRIS-CSharon Referring Provider [phone] Kali LEE, Dr. Story Other Provider [phone] Dr. Cecilio Siu MD Attending Provider Dr. Porsha Bass DO Attending Provider [phone] Dr. Porsha Bass DO Referring Provider TONEY [...] Physician Romario ROMAN, Dr. Limon Attending Physician GILBERTOAR DO, DR BAZZI Primary Care Unavailable ROMAR [...] BAZZI Attending Unavailable ROMAR DO, DR BAZZI Attending Unavailable ROMAR DO, DR BAZZI Primary Care Unavailable Romar, Jluis Primary Care Unavailable Isrrael Lopez Attending Unavailabl e Romar, Jluis Primary Care Unavailable Fanny Sherman Referring Unavailable BadFanny delgado Attending Unavailable Roof Maryuri H Referring Unavailable RoofMaryuri H Attending Unavailable Romar, Jluis Primary Care Unavailable Romar, Jluis Primary Care Unavailable Cheng Camarillo Attending Unavailable Elijah Mills Attending Unavailable Romar, Jluis Primary Care Unavailable RomarJluis Referring Unavailable Braxton Doss Attending Unavailable Romar, Jlius Primary Care Unavailable RomJluis staples Referring Unavailable RomarJluis Referring Unavailable Sharon Parsons Attending Unavailable Romar, Jluis Primary Care Unavailable Romar, Jluis Referring Unavailable Romar, Jluis Primary Care Unavailable Bailey Howe Attending Unavailabl e Romar, Jluis Referring Unavailable Braxton Doss Attending Unavailable Dayanara, Jluis Primary Care Unavailable Sharon Parsons Referring Unavailable Cecilio Siu Attending Unavailable Romar, Jluis Primary Care Unavailable Porsha Bass Consulting Unavailable Sharon Parsons Referring Unavailable Sharon Parsons Attending Unavailable Dayanara, Jluis Primary Care Unavailable Porsha Bass Referring Unavailable Porsha Bass Attending Unavailable Gilbertoar, Jluis Primary Care Unavailable Romar BJORN, Jluis Attending Unavailable Romar, Jluis Primary Care Unavailable Romjhoan MILAN, Jluis Attending Unavailable Romar, Jluis Primary Care Unavailable Romar BJORN, Jluis Attending Unavailable Romar, Jluis Primary Care Unavailable Gilbertoar, Jluis Primary Care Unavailable Bailey Howe Referring UnavailBailey Horne Attending UnavailPorsha Rangel Attending Unavailable Dayanara, Jluis Primary Care Unavailable Allergies Allergy Classification Reported [...] PO Q8H as needed for Mild Pain () 0 June 16, 2018 12:00am July 27, [...] 0 Refill(s), 07/14/25 5:16:00 PM EDT, Pharmacy: [facility]/pharmacy #[id number], 172, cm, 07/04/25 13:52:00 EDT, [...] meds, # 100 tab(s), 1 Refill(s), Pharmacy: [facility] [address], 182.9, cm, 02/22/25 17:36:00 EDT, Height, kg, 02/22/25 17:36:00 EDT, Dosing Weight Start Date: 04/04/25 Stop Date: 10/21/25 Status: Ordered Medication Dispense Status: Completed Quantity: 100.0 Unit: tab(s) Total Allowed Fills: 2 Fills Dispensed: 0 Start: 09-21-2022 take 1 tablet by zach th once daily at bedtime atorvastatin 40 mg oral tablet 1 tab(s), Oral, qHS, # 90 tab(s), 1 Refill(s), Pharmacy: [facility]/pharmacy #[id number], 175, cm, 09/21/22 8:31:00 EST, [...] BEDTIME 90 3 June 23, 2019 11:11am Wilber 13th, 2022 9:28am CHOLESTEROL Start: 03-29-2019 End: 06-23-2019 [...] 0 Refill(s), 07/09/25 5:16:00 PM EDT, Pharmacy: [facility]/pharmacy #[id number], 172, cm, 07/04/25 13:52:00 EDT, [...] Start: 03-02-2023 take 1 tablet by zach three times daily Carbidopa-Levodopa Active 1 TABLET [...] 0 Refill(s), 08/28/24 2:31:00 PM EST, Pharmacy: [facility]/pharmacy #[id number], 172, cm, 08/11/24 10:00:00 EST, [...] qDay, # 14 tab(s), 0 Refill(s), Pharmacy: [facility]/pharmacy #4605, 172.7, cm, 12/27/20 12:02:00 EDT, Height, [...] meds, # 100 tab(s), 1 Refill(s), Pharmacy: [facility] [address], 172, cm, 05/23/25 9:57:00 EDT, Height, kg, [...] CHEW, # 180 tab(s), 1 Refill(s), Pharmacy: [facility]/pharmacy #4605, 172, cm, 08/11/24 10:00:00 EST, [...] CHEW, # 180 tab(s), 1 Refill(s), [facility], cm, 12/14/23 8:38:00 EDT, Height, kg, 12/14/23 8:38:00 EDT, Dosing Weight Start Date: 03/29/24 Status: Ordered Start: 12-31-2023 Metoprolol Suc cinate ER 100 mg oral TABLET extended release Dose : 100 mg = 1 tab(s), Oral, BID, TAKE 1 TABLET BY MOUTH TWICE A DAY DO NOT CRUSH OR CHEW, # 180 tab(s), 0 Refill(s), Pharmacy: [facility]/pharmacy #[id number], 172, cm, 12/14/23 8:38:00 EDT, [...] 55, # 180 tab(s), 1 Refill(s), [id number] 175, cm, 04/16/22 7:17:00 EDT, Height, kg, 04/16/22 7:17:... Start Date: 07/01/22 Status: Ordered Start: 11-11-2021 take 1 tablet by zach th twice daily Metoprolol Succinate ER 100 mg oral TABLET extended release See Instructions, TAKE 1 TABLET BY MOUTH TWICE A DAY FOR BLOOD PRESSURE. HOLD FOR SBP LESS THAN 110, HR LESS THAN 55, # 180 tab(s), 1 Refill(s), [id number] 175, cm, 06/16/21 8:33:00 EDT, Height, kg, 06/16/21 8:33:00 EDT, Dosing Weight Start Date: 11/11/21 Status: Ordered Start: 05-27-2018 End: 05-23-2025 take 1 tablet by mouth twice daily Metoprolol Succinate 100 mg tablet extended release 24 hr Discontinued 100 mg PO TWICE A DAY 180 June 23, 2019 11:12am May 23, 2025 3:50pm blood pressure Hold for SBP pantoprazole 40 mg delayed release oral tablet (20 sources) Proton Pump Inhibitor Start: 04-04-2025 End: 10-01-2025 pantoprazole 40 mg oral enteric coated tablet 1 tab(s), Oral, qDayAC, Pt would like prepackaged meds, # 90 tab(s), 1 Refill(s), Pharmacy: [facility] [address], 182.9, cm, 02/22/25 17:36:00 EDT, Height, kg, [...] tablet Discontinued 0.5 mg PO AT BEDTIME November 29, 2024 12:00am March 28, 2025 10:23am sertraline 50 mg oral tablet (5 sources) Serotonin Reuptake Inhibitor Start: 02-21-2025 sertraline 50 mg ora l tablet Dose : 50 mg = 1 tab(s), Oral, qDay, # 90 tab(s), 0 Refill(s), Pharmacy: [facility]/pharmacy #[id number], 172, cm, 02/21/25 9:16:00 EDT, Height, kg, 02/21/25 9:16:00 EDT, Dosing Weight Start Date: 02/21/25 Status: Ordered Quantity: 90.0 Unit: tab(s) Repeat number: 1 Start: 06-28-2024 End: 09-26-2024 sertraline 25 mg oral tablet Dose : 25 mg = 1 tab(s), Oral, qDay, # 90 tab(s), 0 Refill(s), Pharmacy: [facility]/pharmacy #4605, 172, cm, 06/28/24 8:58:00 EDT, Height, kg, 06/28/24 8:49:00 EDT, Dosing Weight Start Date: 06/28/24 Stop Date: 09/26/24 Status: Ordered Quantity: 90.0 Unit: tab(s) Repeat number: 1 [place] [address] mg powder for oral suspension (20 sources) [...] qDay, # 90 tab(s), 0 Refill(s), Pharmacy: [facility]/pharmacy #4605, 172, cm, 08/11/24 10:00:00 EST, Height, kg, 08/11/24 10:00:00 EST, Dosing Weight Start Date: 08/14/24 Status: Ordered Quantity: 90.0 Unit: tab(s) Repeat number: 1 Start: 08-14-2024 Vitamin B12 10 00 mcg oral tablet Dose : 1,000 mcg = 1 tab(s), Oral, qDay, # 90 tab(s), 0 Refill(s), Pharmacy: [facility]/pharmacy #4605, 172, cm, 08/11/24 10:00:00 EST, Height, kg, 08/11/24 10:00:00 EST, Dosing Weight Start Date: 08/14/24 Status: Ordered Vitamin B12 500 mcg oral tablet (1 source) Start: 02-22-2025 End: 05-23-2025 Vitamin B12 500 mcg oral tab let Dose : 500 mcg = 1 tab(s), Oral, qDay, # 90 tab(s), 0 Refill(s), Pharmacy: [facility]/pharmacy #4605, 172, cm, 02/21/25 9:16:00 EDT, [...] tablet Discontinued 20 mg PO DAILY 90 January 22, 2021 11:10am February 25, 2021 [...] Discontinued 20 mg PO TWICE A DAY 180 3 September 19, 2024 8:52am May 23, 2025 [...] tablet Discontinued 10 mg PO DAILY 90 3 September 29, 2022 12:59pm October 05, 2022 [...] DAY, # 180 tab(s), 1 Refill(s), Pharmacy: [facility]/pharmacy #4605, 175, cm, 06/16/21 8:33:00 EDT, Height, kg, 06/16/21 8:33:00 EDT, Dosing Weight Start Date: 11/11/21 Status: Ordered Start: 10-14-2021 End: 11-11-2021 take 1 tablet by mouth once daily Lisinopril 20 mg tablet Discontinued 20 mg PO DAILY 90 3 October 14, 2021 10:23am November 11, 2021 [...] 1 APPLIC ointment Discontinued 1 NMA TOPICAL 0600,0 0 June 16, 2018 12:00am July 07, 2018 2:34pm Please contact the information source for Protocol details. 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] Onset: Chronic Deficiency and other anemia (14 sources) [...] prostatic hypertrophy with outflow obstruction 04-07-2021 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 (1 source) Hypertensive chronic kidney disease with stage 1 through stage 4 chronic kidney disease, or unspecified chronic kidney disease; Translations: [Hypertensive chronic kidney disease with stage 1 through stage 4 chronic kidney disease, or unspecified chronic kidney disease] Onset: 5 Chronic Intestinal infection (20 sources) Clostridium difficile [...] disorders (7 sources) Hypomagnesemia; Translations: [Hypomagnesemia] Onset: 02-21-2025 Chronic Other nutritional; endocrine; and metabolic [...] without dyskinesia, without mention of fluctuations] Onset: Viridiana-; endo-; and myocarditis; cardiomyopathy (except that caused by tuberculosis or sexually transmitted disease) (14 sources) Ejection murmur 10-11-2022 Chronic Poisoning by other medications and drugs (2 sources) Poisoning by unspecified drugs, medicaments and biological substances, accidental (unintentional), initial encounter; Translations: [Poisoning by unspecified drugs, medicaments and biological substances, accidental (unintentional), initial encounter] Onset: 5 Episodic Residual codes; unclassified (14 sources) Peripheral [...] Name Value Interpretation Reference Range Facility Potassiumon 07-30-2025 Potassium [Moles/Vol] 4.5 mmol/L Normal 3.3-5.1 [facility] Comment on above: Performed By: #### L 500.2500, L501.5200 #### [facility] [place], [address] Potassiumon 07-24-2025 Potassium [Moles/Vol] 4.9 mmol/L Normal 3.3-5.1 [facility] Comment on above: Result Comment: Hemo lysis present, Results??could be affected. ?? Performed By: #### L 501.5600 #### [facility] [address] [place], [address] Potassiumon 07-16-2025 Potassium [Moles/Vol] 5.2 mmol/L High 3.3-5.1 [facility] Comment on above: Performed By: #### L 501.5600 #### [facility] [address] [place], [address] .GFRon 07-12-2025 Estimated Glomerular Filtration Rate 35 ml/min/1.73sqm Normal [facility] Comment on above: Result Comment: Stages [...] W, MG, ADIFF, GFR, CMP, ANEU #### [id number] [place], [place] [address] BMPon 07-12-2025 BUN/Creatinine Ratio 17 ratio Normal 7-27 [facility] Comment on above: Order Comment: hemol maya jimenez Performed By: #### C LYNSEY, MDW, MG, ADIFF, GFR, CMP, ANEU #### [id number] [place], [place] [address] Calcium [Mass/Vol] 8.5 mg/dL Normal 8.4-10.2 [facility] Comment on above: Order Comment: hemmaya ruiz Performed By: #### C KYUNG MENON, MG, ADIFF, GFR, CMP, ANEU #### [address] [address] Chloride [Moles/Vol] 108 mmol/L High 98-107 [facility] Comment on above: Order Comment: hemmaya ruiz Performed By: #### KYUNG SANTOS, MG, ADIFF, GFR, CMP, ANEU #### [address] [address] CO2 [Moles/Vol] 26 mmol/L Normal 23-31 [facility] Comment on above: Order Comment: hemmaya ruiz Performed By: #### KYUNG SANTOS, MG, ADIFF, GFR, CMP, ANEU #### [address] [address] Creatinine [Mass/Vol] 1.86 mg/dL High 0.67-1.17 [facility] Comment on above: Order Comment: hemmaya ruiz Performed By: #### KYUNG SANTOS, MG, ADIFF, GFR, CMP, ANEU #### [address] [address] Electrolyte Balance 6.0 mEq/L Normal 4.0-15.0 [facility] Comment on above: Order Comment: hemmaya ruiz Performed By: #### KYUNG SANTOS, MG, ADIFF, GFR, CMP, ANEU #### [address] [address] Glucose [Mass/Vol] 162 mg/dL High 83-110 [facility] Comment on above: Order Comment: hemmaya ruiz Performed By: #### KYUNG SANTOS, MG, ADIFF, GFR, CMP, ANEU #### [address] [address] Potassium [Moles/Vol] 5.2 mmol/L High 3.5-5.1 [facility] Comment on above: Order Comment: hemol maya jimenez Performed By: #### C LYNSEY, KYUNG, MG, ADIFF, GFR, CMP, ANEU #### [address] [place], [place] [address] Sodium [Moles/Vol] 140 mmol/L Normal 136-145 [facility] Comment on above: Order Comment: maya rosa Performed By: #### C LYNSEY, KYUNG, MG, ADIFF, GFR, CMP, ANEU #### [address] [place], [place] [address] Urea nitrogen [Mass/Vol] 31 mg/dL High 7-18 [facility] Comment on above: Order Comment: maya rosa Performed By: #### C LYNSEY, KYUNG, MG, ADIFF, GFR, CMP, ANEU #### [id number] [place], [place] [address] LABORATORYOrdered By: SYSTEM SYSTEM on 07-12-2025 Calcium [...] 501.5600 #### [facility] [address], [address] XR RIBS 2 VIEWS RIGHTon 06-20 XR RIBS 2 VIEWS RIGHT ORIGINAL EXAMINATION: [...] 11:17:47 AM Ordering Provider: JLUIS NICHOLE RP [facility] XR SHOULDER MINIMUM 2 VIEWS RIGHTon [...] 07/06/2025 11:19:30 AM Ordering Provider: JLUIS NICHOLE [facility] CT HEAD OR BRAIN W/O CONTRAS Ton [...] 07/05/2025 4:57:02 PM Ordering Provider: JLUIS NICHOLE Normal [facility] Paul 07-05-2025 Potassium [Moles/Vol] 5.3 mmol/L High 3.5-5.1 L [facility] Comment on above: Performed By: #### C KYUNG MENON, MG, ADIFF, GFR, CMP, ANEU #### [address] [address] LABORATORYOrdered By: SYSTEM SYSTEM on 07-05-2025 Potassium [Moles/Vol] 5.3 mmol/L High 3.5 - 5.1 mmol/L AO ADM SS .Auto Diffon 07-04-2025 Basophil, Absolute 0.0 10 3/mcL Normal 0.0-0.3 [facility] Comment on above: Performed By: #### C KYUNG MENON, MG, ADIFF, GFR, CMP, ANEU #### [address] [address] Basophils/100 WBC (Bld) 0.7 % Normal 0.0-2.5 [facility] Comment on above: Performed By: #### C KYUNG MENON, MG, ADIFF, GFR, CMP, ANEU #### [address] [address] Eosinophil, Absolute 0.1 10 3/mcL Normal 0.0-0.7 [facility] Comment on above: Performed By: #### C KYUNG MENON, MG, ADIFF, GFR, CMP, ANEU #### [address] [place], [place] [address] Eosinophils/100 WBC (Bld) 1.8 % Normal 0.0-6.0 [facility] Comment on above: Performed By: #### C LYNSEY, KYUNG, MG, ADIFF, GFR, CMP, ANEU #### [address] [address] Lymphocyte, Absolute 1.5 10 3/mcL Normal 0.9-4.3 [facility] Comment on above: Performed By: #### C LYNSEY, W, MG, ADIFF, GFR, CMP, ANEU #### [address] [address] Lymphocytes/100 WBC (Bld) 20.8 % Normal 20.0-40.0 [facility] Comment on above: Performed By: #### C LYNSEY, KYUNG, MG, ADIFF, GFR, CMP, ANEU #### [address] [address] Monocyte, Absolute 0.5 10 3/mcL Normal 0.1-1.4 [facility] Comment on above: Performed By: #### C LYNSEY, W, MG, ADIFF, GFR, CMP, ANEU #### [address] [address] Monocytes/100 WBC (Bld) 7.7 % Normal 2.0-13.0 [facility] Comment on above: Performed By: #### C LYNSEY, KYUNG, MG, ADIFF, GFR, CMP, ANEU #### [address] [address] Neutrophils/100 WBC (Bld) 69.0 % Normal 50.0-75.0 [facility] Comment on above: Performed By: #### C LYNSEY, W, MG, ADIFF, GFR, CMP, ANEU #### [address] [address] .GFRon 07-04-2025 Estimated Glomerular Filtration Rate 36 ml/min/1.73sqm Normal [facility] Comment on above: Result Comment: Stages [...] MENON, MG, ADIFF, GFR, CMP, ANEU #### [place] [address] .NEUABSon 07-04-2025 Neutrophil, Absolute 4.9 10 3/mcL Normal 2.3-8.1 [facility] Comment on above: Performed By: #### C KYUNG MENON, MG, ADIFF, GFR, CMP, ANEU #### [place] [address] CBCon 07-04-2025 Erythrocyte distribution width (RBC) [Ratio] 16.2 % High 11.5-15.5 [facility] Comment on above: Performed By: #### C KYUNG MENON, MG, ADIFF, GFR, CMP, ANEU #### [place] [address] Hematocrit (Bld) [Volume fraction] 33.6 % Low 40.0-52.0 [facility] Comment on above: Performed By: #### C KYUNG MENON, MG, ADIFF, GFR, CMP, ANEU #### [place] [address] Hgb 11.1 G/dL Low 13.0-17.5 [facility] Comment on above: Performed By: #### C KYUNG MENON, MG, ADIFF, GFR, CMP, ANEU #### [place] [address] MCH (RBC) [Entitic mass] 31.1 pg Normal 27.0-33.0 [facility] Comment on above: Performed By: #### C KYUNG MENON, MG, ADIFF, GFR, CMP, ANEU #### [address] [address] MCHC 32.9 G/dL Normal 32.0-36.0 [facility] Comment on above: Performed By: #### C KYUNG MENON, MG, ADIFF, GFR, CMP, ANEU #### [address] [address] MCV (RBC) [Entitic vol] 94.6 fL Normal 81.0-100.0 [facility] Comment on above: Performed By: #### C KYUNG MENON, MG, ADIFF, GFR, CMP, ANEU #### [place] [address] Platelet 107 10 3/mcL Low 150-450 [facility] Comment on above: Performed By: #### C KYUNG MENON, MG, ADIFF, GFR, CMP, ANEU #### [place] [address] Platelet mean volume (Bld) [Entitic vol] 8.5 fL Normal 6.4-10.5 [facility] Comment on above: Performed By: #### C KYUNG MENON, MG, ADIFF, GFR, CMP, ANEU #### [address] [address] RBC 3.55 10 6/mcL Low 4.50-6.00 [facility] Comment on above: Performed By: #### C KYUNG MENON, MG, ADIFF, GFR, CMP, ANEU #### [address] [address] WBC 7.1 10 3/mcL Normal 4.5-10.8 [facility] Comment on above: Performed By: #### C KYUNG MENON, MG, ADIFF, GFR, CMP, ANEU #### [place] [address] CMPon 07-04-2025 Albumin Level 3.7 G/dL Normal 3.4-4.8 [facility] Comment on above: Performed By: #### C KYUNG MENON, MG, ADIFF, GFR, CMP, ANEU #### [place] [address] Albumin/Globulin [Mass ratio] 1.2 {ratio} Normal 1.1-2.5 [facility] Comment on above: Performed By: #### C LYNSEY, KYUNG, MG, ADIFF, GFR, CMP, ANEU #### [place] [address] ALP [Catalytic activity/Vol] 108 U/L Normal 40-135 [facility] Comment on above: Performed By: #### C LYNSEY, KYUNG, MG, ADIFF, GFR, CMP, ANEU #### [place] [address] ALT/SGPT <6 Low 16-63 [facility] Comment on above: Performed By: #### C KYUNG MENON, MG, ADIFF, GFR, CMP, ANEU #### [place] [address] AST [Catalytic activity/Vol] 12 U/L Normal 10-40 [facility] Comment on above: Performed By: #### C KYUNG MENON, MG, ADIFF, GFR, CMP, ANEU #### [place] [address] Bili Total 0.7 mg/dL Normal 0.2-1.0 [facility] Comment on above: Result Comment: Use of this assay is not recommended for patients undergoing treatment with eltrombopag due to the potential for falsely elevated results. Performed By: #### C KYUNG MENON, MG, ADIFF, GFR, CMP, ANEU #### [place] [address] BUN/Creatinine Ratio 17 ratio Normal 7-27 [facility] Comment on above: Performed By: #### C KYUNG MENON, MG, ADIFF, GFR, CMP, ANEU #### [place] [address] Calcium [Mass/Vol] 9.1 mg/dL Normal 8.4-10.2 [facility] Comment on above: Performed By: #### C KYUNG MENON, MG, ADIFF, GFR, CMP, ANEU #### [address] [address] Chloride [Moles/Vol] 110 mmol/L High 98-107 [facility] Comment on above: Performed By: #### C KYUNG MENON, MG, ADIFF, GFR, CMP, ANEU #### [place] [address] CO2 [Moles/Vol] 28 mmol/L Normal 23-31 [facility] Comment on above: Performed By: #### C KYUNG MENON, MG, ADIFF, GFR, CMP, ANEU #### [place] [id number] Creatinine [Mass/Vol] 1.82 mg/dL High 0.67-1.17 [facility] Comment on above: Performed By: #### C KYUNG MENON, MG, ADIFF, GFR, CMP, ANEU #### [address] [address] Electrolyte Balance 5.0 mEq/L Normal 4.0-15.0 [facility] Comment on above: Performed By: #### C KYUNG MENON, MG, ADIFF, GFR, CMP, ANEU #### [address] [address] Globulin 3.1 G/dL Normal 2.7-4.4 [facility] Comment on above: Performed By: #### C KYUNG MENON, MG, ADIFF, GFR, CMP, ANEU #### [address] [address] Glucose [Mass/Vol] 68 mg/dL Low 83-110 [facility] Comment on above: Performed By: #### C KYUNG MENON, MG, ADIFF, GFR, CMP, ANEU #### [address] [address] Potassium [Moles/Vol] 5.4 mmol/L High 3.5-5.1 [facility] Comment on above: Performed By: #### C KYUNG MENON, MG, ADIFF, GFR, CMP, ANEU #### [address] [place], [place] [address] Sodium [Moles/Vol] 143 mmol/L Normal 136-145 [facility] Comment on above: Performed By: #### C KYUNG MENON, MG, ADIFF, GFR, CMP, ANEU #### [address] [place], [place] [address] Total Protein 6.8 G/dL Normal 6.4-8.2 [facility] Comment on above: Performed By: #### C KYUNG MENON, MG, ADIFF, GFR, CMP, ANEU #### [address] [place], [place] [address] Urea nitrogen [Mass/Vol] 31 mg/dL High 7-18 [facility] Comment on above: Performed By: #### C KYUNG MENON, MG, ADIFF, GFR, CMP, ANEU #### [address] [address] LABORATORYOrdered By: SYSTEM SYSTEM on 07-04-2025 Albumin [...] Culture Urine No growth at 48 hours. [facility] Work Phone: PBNPon 07-04-2025 Natriuretic peptide B (Bld) [Mass/Vol] 1302 pg/mL High 0-450 [facility] Comment on above: Result Comment: NT-p roBNP results of less than 300 pg/mL effectively rules out acute congestive heart failure with 99% negative predictive value. Performed By: #### C BC, MDW, MG, ADIFF, GFR, CMP, ANEU #### [facility] [address] [place], [place] [address] XR CHEST 2 VIEWSon XR CHEST 2 VIEWS ORIGINAL EXAMINATION: TWO [...] PM Ordering Provider: JLUIS NICHOLE RP Normal [facility] XR HUMERUS MINIMUM 2 VIEWS R Ralph 07-04-2025 XR HUMERUS MINIMUM 2 VIEWS RIGHT [...] PM Ordering Provider: JLUIS NICHOLE RP Normal [facility] Neurology Visit Reporton Neurology Visit Report [facility] [address] [facility], [address] [place] [address] OFFICE VISIT Date of Service: 06/11/25 MR#: [id number] Acct: [id number] Name: EKATERINA RANDHAWA Rep #: [id number] : 1940 Provider: Dr. Braxton garg MD Age/Sex: 85/M Location: [facility]. 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 He [...] 04-26-2025 Anion gap [Moles/Vol] 11 mmol/L - [facility] BUN/creatinine ratioOrdered By: Porsha Bass on 04-26-2025 Urea nitrogen/Creatinine [Mass ratio] 14.1 mg/mg - [facility] Basic Metabolic Profile (BMP )on 04-26-2025 BUN/CRE 14.1 RATIO Normal 07-09 [facility] Comment on above: Performed By: #### L 500.2500 #### [facility] [place], [address] Calcium [Mass/Vol] 9.1 mg/dL Normal 7.6-11.0 [facility] Comment on above: Performed By: #### L 500.2500 #### [facility] [address] [place], [address] Chloride [Moles/Vol] 106 mmol/L Normal 98-108 [facility] Comment on above: Performed By: #### L 500.2500 #### [facility] [address] [place], [address] CO2 [Moles/Vol] 20.7 mmol/L Low 21.0-32.0 [facility] Comment on above: Performed By: #### L 500.2500 #### [facility] [address] [place], [address] Creatinine [Mass/Vol] 1.85 mg/dL High 0.70-1.20 [facility] Comment on above: Performed By: #### L 500.2500 #### [facility] [address], [address] GAP 11 Normal 5-15 [facility] Comment on above: Performed By: #### L 500.2500 #### [facility] [address] [place], [address] GFR/1.73 sq M.predicted among non-blacks MDRD (S/P/Bld) [Vol rate/Area] 35 mL/min/{1.73_m2} Low >60 [facility] Comment on above: Result Comment: mL/m in/1.73m2 CKD-EPI Creatinine Equation (2020) Performed By: #### L 500.2500 #### [facility] [address] [place], [address] Glucose [Mass/Vol] 174 mg/dL High 70-99 [facility] Comment on above: Performed By: #### L 500.2500 #### [facility] [address] [place], [address] Potassium [Moles/Vol] 4.4 mmol/L Normal 3.3-5.1 [facility] Comment on above: Performed By: #### L 500.2500 #### [facility] [address] [place], [place], [id number] Sodium [Moles/Vol] 138 mmol/L Normal 133-145 [facility] Comment on above: Performed By: #### L 500.2500 #### [facility] [address] [place], [address] Urea nitrogen [Mass/Vol] 26 mg/dL High 4-19 [facility] Comment on above: Performed By: #### L 500.2500 #### [facility] [address] [place], [address] Carbon dioxide, total [Moles /volume] in Central venous bloodOrdered By: Porsha Bass on 04-26-2025 CO2 [Moles/Vol] 20.7 mmol/L Low 21.0-32.0 [facility] Chloride assayOrdered By: Kev Bass on 04-26-2025 Chloride [Moles/Vol] 106 mmol/L 98-108 [facility] Glomerular filtration rate ( GFR) estimation/1.73 sq m using serum, plasma, or whole bOrdered By: Porsha Bass on 04-26-2025 GFR/1.73 sq M.predicted among non-blacks MDRD (S/P/Bld) [Vol rate/Area] 35 mL/min/{1.73_m2} Low >60 [facility] Comment on above: mL/min/1.73m2 CKD-EP I Creatinine Equation (2020) Kidney and Bladderon 025 Kidney and Bladder [facility] Imaging Services [address] [place], [place] [address] Kidney and Bladder MR#: [id number] Acct: [id number] Name: EKATERINA RANDHAWA Rep #: [id number] : 1940 M 85 From: Konrad gaston MD PCP: Dr. Jluis Nichole, DO Status: REG CLI Study: Kidney and Bladder Date of Exam: 04/26/25 Exam# [id number] Ordering Dr: Porsha Bass DO PROCEDURE: KIDNEY AND BLADDER 04/26/2025 REASON FOR EXAM: HYPERKALEMIA TECHNIQUE: KIDNEY AND BLADDER COMPARISON: None FINDINGS: Kidneys: Normal renal sizes, parenchymal thicknesses, and echotextures. [place]: No evidence of hydronephrosis. Cysts or Masses: [...] Bladder IMPRESSION: NORMAL RENAL ULTRASOUND. Reading Location: [id number] CC: Dr. Porsha Bass DO; Dr. Jluis Nichole DO Crust Sorter: Signed Normal [facility] Potassium measurement (mass/ volume)Ordered By: Porsha Bass on 04-26-2025 Potassium (Unsp spec) [Mass/Vol] 4.4 mmol/L 3.3-5.1 [facility] Serum creatinine measurement (mass/volume)Ordered By: Porsha Bass on 04-26-2025 Creatinine [Mass/Vol] 1.85 mg/dL High 0.70-1.20 [facility] Serum glucose measurement (m ass/volume)Ordered By: Porsha Bsas on 04-26-2025 Glucose [Mass/Vol] 174 mg/dL High 70-99 [facility] Serum or plasma calcium francisco urement (mass/volume)Ordered By: Porsha Bass on 04-26-2025 Calcium [Mass/Vol] 9.1 mg/dL 7.6-11.0 [facility] Serum or plasma urea nitroge n measurement (mass/volume)Ordered By: Porsha Bass on 04-26-2025 Urea nitrogen [Mass/Vol] 26 mg/dL High 4-19 [facility] Sodium levelOrdered By: Seth Bass on 04-26-2025 Sodium [Moles/Vol] 138 mmol/L 133-145 [facility] Anion gap in Serum or Plasma Ordered By: Porsha Bass on 04-19-2025 Anion gap [Moles/Vol] 10 mmol/L - [facility] BUN/creatinine ratioOrdered By: Porsha Bass on 04-19-2025 Urea nitrogen/Creatinine [Mass ratio] 13.8 mg/mg 07-09 [facility] Basic Metabolic Profile (BMP )on 04-19-2025 BUN/CRE 13.8 RATIO Normal 07-09 [facility] Comment on above: Performed By: #### L 500.2500 #### [facility] [address] [place], [address] Calcium [Mass/Vol] 9.1 mg/dL Normal 7.6-11.0 [facility] Comment on above: Performed By: #### L 500.2500 #### [facility] [address] [place], [address] Chloride [Moles/Vol] 107 mmol/L Normal 98-108 [facility] Comment on above: Performed By: #### L 500.2500 #### [facility] [address] [place], [address] CO2 [Moles/Vol] 23.5 mmol/L Normal 21.0-32.0 [facility] Comment on above: Performed By: #### L 500.2500 #### [facility] [address] [place], [address] Creatinine [Mass/Vol] 1.99 mg/dL High 0.70-1.20 [facility] Comment on above: Performed By: #### L 500.2500 #### [facility] [address] [place], [address] GAP 10 Normal - [facility] Comment on above: Performed By: #### L 500.2500 #### [facility] [address] [place], [address] GFR/1.73 sq M.predicted among non-blacks MDRD (S/P/Bld) [Vol rate/Area] 32 mL/min/{1.73_m2} Low >60 [facility] Comment on above: Result Comment: mL/m in/1.73m2 CKD-EPI Creatinine Equation (2020) Performed By: #### L 500.2500 #### [facility] [address] [place], [address] Glucose [Mass/Vol] 117 mg/dL High 70-99 [facility] Comment on above: Performed By: #### L 500.2500 #### [facility] [address] [place], [address] Potassium [Moles/Vol] 5.7 mmol/L High 3.3-5.1 [facility] Comment on above: Performed By: #### L 500.2500 #### [facility] [address] [place], [address] Sodium [Moles/Vol] 140 mmol/L Normal 133-145 [facility] Comment on above: Performed By: #### L 500.2500 #### [facility] [address] [place], [address] Urea nitrogen [Mass/Vol] 27 mg/dL High 4-19 [facility] Comment on above: Performed By: #### L 500.2500 #### [facility] [address] [place], [address] Carbon dioxide, total [Moles /volume] in Central venous bloodOrdered By: Porsha Bass on 04-19-2025 CO2 [Moles/Vol] 23.5 mmol/L 21.0-32.0 [facility] Chloride assayOrdered By: Kev Bass on 04-19-2025 Chloride [Moles/Vol] 107 mmol/L 98-108 [facility] Glomerular filtration rate ( GFR) estimation/1.73 sq [...] 04-19-2025 Creatinine [Mass/Vol] 1.99 mg/dL High 0.70-1.20 [facility] Serum glucose measurement (m ass/volume)Ordered By: Porsha Bass on 04-19-2025 Glucose [Mass/Vol] 117 mg/dL High 70-99 [facility] Serum or plasma calcium francisco urement (mass/volume)Ordered By: Porsha Bass on 04-19-2025 Calcium [Mass/Vol] 9.1 mg/dL 7.6-11.0 [facility] Serum or plasma urea nitroge n measurement (mass/volume)Ordered By: Porsha Bass on 04-19-2025 Urea nitrogen [Mass/Vol] 27 mg/dL High 4-19 [facility] Sodium levelOrdered By: Seth Bass on 04-19-2025 Sodium [Moles/Vol] 140 mmol/L 133-145 [facility] Anion gap in Serum or Plasma Ordered By: Porsha Bass on 04-10-2025 Anion gap [Moles/Vol] 10 mmol/L 5-15 [facility] BUN/creatinine ratioOrdered By: Porsha Bass on 04-10-2025 Urea nitrogen/Creatinine [Mass ratio] 16.9 mg/mg 10- [facility] Basic Metabolic Profile (BMP )on 04-10-2025 BUN/CRE 16.9 RATIO Normal - [facility] Comment on above: Performed By: #### L 500.2500, L501.5200 #### [facility] [place], [address] Calcium [Mass/Vol] 9.4 mg/dL Normal 7.6-11.0 [facility] Comment on above: Performed By: #### L 500.2500, L501.5200 #### [facility] [address] [place], [address] Chloride [Moles/Vol] 107 mmol/L Normal 98-108 [facility] Comment on above: Performed By: #### L 500.2500, L501.5200 #### [facility] [address] [place], [address] CO2 [Moles/Vol] 23.1 mmol/L Normal 21.0-32.0 [facility] Comment on above: Performed By: #### L 500.2500, L501.5200 #### [facility] [address] [place], [address] Creatinine [Mass/Vol] 1.80 mg/dL High 0.70-1.20 [facility] Comment on above: Performed By: #### L 500.2500, L501.5200 #### [facility] [address] [place], [address] GAP 10 Normal 5-15 [facility] Comment on above: Performed By: #### L 500.2500, L501.5200 #### [facility] [address] [place], [address] GFR/1.73 sq M.predicted among non-blacks MDRD (S/P/Bld) [Vol rate/Area] 36 mL/min/{1.73_m2} Low >60 [facility] Comment on above: Result Comment: mL/m in/1.73m2 CKD-EPI Creatinine Equation (2020) Performed By: #### L 500.2500, L501.5200 #### [facility] [address] [place], [address] Glucose [Mass/Vol] 129 mg/dL High 70-99 [facility] Comment on above: Performed By: #### L 500.2500, L501.5200 #### [facility] [address] [place], [address] Potassium [Moles/Vol] 5.5 mmol/L High 3.3-5.1 [facility] Comment on above: Performed By: #### L 500.2500, L501.5200 #### [facility] [address] [place], [address] Sodium [Moles/Vol] 140 mmol/L Normal 133-145 [facility] Comment on above: Performed By: #### L 500.2500, L501.5200 #### [facility] [address] [place], [address] Urea nitrogen [Mass/Vol] 30 mg/dL High 4-19 [facility] Comment on above: Performed By: #### L 500.2500, L501.5200 #### [facility] [address] [place], [address] Carbon dioxide, total [Moles /volume] in Central venous bloodOrdered By: Porsha Bass on 04-10-2025 CO2 [Moles/Vol] 23.1 mmol/L 21.0-32.0 [facility] Carotid Duplex Ultrasoundon 04-10-2025 Carotid Duplex Ultrasound [facility] [address] [place] [address] Carotid Duplex Ultrasound 04/10/25 1303 MR#: [id number] Acct: [id number] Name: EKATERINA RANDHAWA Rep #: [id number] : 1940 85 From: Cecilio Siu MD Attending Dr: WON FernándezC Status: REG C KELVIN Ordering Dr: Sharon Parsons RUNNER MAN-C Date: 04/10/25 Location: [facility] Sex: M C Admitted: Reason For [...] the left vertebral artery. Procedure Carotid Duplex 16539. This is a Carotid Duplex examination using B-mode, color flow and specral Doppler. Exam performed in department. VL/Carotid Duplex Ultrasound Interpretation Summary Mild (<50%) stenosis right extracranial internal carotid. Mild (<50%) stenosis left extracranial internal carotid. Patent and antegrade vertebrals bilaterally. ___ Ordering Physician: Sharon Parsons Referring Physician: Jluis Nichole DO Performed By: Arelis Boyer, RVT 04/10/25 1425 Date Cecilio Siu MD CC: RUNNER MAN-C Sharon Parsons; Dr. Jluis Nichole DO Date Dictated: 04/10/25 1303 Date Transcribed: 04/10/25 142 Crust Sorter: Signed Normal [facility] Chloride assayOrdered By: Kev Bass on 04-10-2025 Chloride [Moles/Vol] 107 mmol/L 98-108 [facility] Duplex ultrasound of carotid artery reportOrdered By: Cecilio Siu on 04-10-2025 Study report [facility] Cardi[facility] Services [address] [place] [address] Carotid Duplex Ultrasound 04/10/25 1303 MR#: [id number] Acct: [id number] Name: EKATERINA RANDHAWA Rep #:[id number] : 1940 85 From: Cecilio Bauitsta Attending Dr: OBIE Fernández S tatus: REG CLI Ordering Dr: Sharon Parsons Date: 04/10/25 Location: [facility] Sex: M C Admitted: Reason For [...] the left vertebral artery. Procedure Carotid Duplex 50602. This is a Carotid Duplex examination using [...] 1425 Date _ Cecilio Siu MD CC: OBIE Parsons; Dr. Jluis Nichole, DO ~ Date Dictated: 04/10/25 1303 Date Transcribed: 04/10/25 1425 Crust Sorter: Signed [facility] Work Phone: Glomerular filtration rate ( GFR) estimation/1.73 sq m using serum, plasma, or whole bOrdered By: Porsha Bass on 04-10-2025 GFR/1.73 sq M.predicted among non-blacks MDRD (S/P/Bld) [Vol rate/Area] 36 mL/min/{1.73_m2} Low >60 [facility] Comment on above: mL/min/1.73m2 CKD-EP I Creatinine Equation (2020) Magnesiumon 04-10-2025 Magnesium [Mass/Vol] 2.0 mg/dL Normal 1.5-2.2 [facility] Comment on above: Performed By: #### L 500.2500, L501.5200 #### [facility] [address] [place], [address] Magnesium measurement (mass/ volume)Ordered By: Prosha Bass on 04-10-2025 Magnesium (Unsp spec) [Mass/Vol] 2.0 mg/dL 1.5-2.2 [facility] Potassium measurement (mass/ volume)Ordered By: Porsha Bass on 04-10-2025 Potassium (Unsp spec) [Mass/Vol] 5.5 mmol/L High 3.3-5.1 [facility] Serum creatinine measurement (mass/volume)Ordered By: Porsha Bass on 04-10-2025 Creatinine [Mass/Vol] 1.80 mg/dL High 0.70-1.20 [facility] Serum glucose measurement (m ass/volume)Ordered By: Porsha Bass on 04-10-2025 Glucose [Mass/Vol] 129 mg/dL High 70-99 [facility] Serum or plasma calcium francisco urement (mass/volume)Ordered By: Porsha Bass on 04-10-2025 Calcium [Mass/Vol] 9.4 mg/dL 7.6-11.0 [facility] Serum or plasma urea nitroge n measurement (mass/volume)Ordered By: Porsha Bass on 04-10-2025 Urea nitrogen [Mass/Vol] 30 mg/dL High 4-19 [facility] Sodium levelOrdered By: Seth Bass on 04-10-2025 Sodium [Moles/Vol] 140 mmol/L 133-145 [facility] Echo Completeon 03-28-2025 Echo Complete [facility] [address] [place] [address] Echo Complete 03/28/25 1258 MR#: [id number] Acct: [id number] Name: EKATERINA RANDHAWA Rep #: [id number] : 1940 85 From: Cheng Camarillo MD Attending Dr: DG Fontana Status: REG CLI Ordering Dr: Bailey Howe Date: 06/14 Location: [facility] Sex: M C Admitted: Reason For [...] Fontana Date Dictated: 03/28/251257 Date Transcribed: 03/28/251840 Crust Sorter: Signed Normal [facility] Echocardiogram study reportO rdered By: Cheng Camarillo on 03-28-2025 Study report [facility] [address] [place] [address] Echo Complete 03/28/25 1258 MR#: [id number] Acct: [id number] Name: EKATERINA RANDHAWA Rep #:[id number] : 1940 85 From: Cheng Bautista Attending Dr: DG Fontana Status: REG CLI Ordering Dr: Bailey Howe Date: 03/28/25 Location: [facility] Sex: M C Admitted: Reason [...] _ Cheng Camarillo MD CC: Dr. Jluis Nichole, DO; DG Fontana ~ Date Dictated: 03/28/25 1258 Date Transcribed: 03/28/251840 Crust Sorter: Signed [facility] Work Phone: Neurology Visit Reporton Neurology Visit Report [facility] [address] [facility], [address] [place] [address] OFFICE VISIT Date of Service: 03/28/25 MR#: [id number] Acct: [id number] Name: EKATERINA RANDHAWA Rep #: [id number] : 1940 Provider: OBIE key Age/Sex: 85/M Location: [facility]. Status: Signed [facility] HPI Chief Complaint: Details: Interim History: Ekaterina [...] this began during his hospitalization for his MT/CABG and may have been procedure related). He [...] acute o (more content not included)... Normal [facility] 02-28-[address] [facility] Telephone (HEMFitfully) ----- EKATERINA RANDHAWA ([id number]) 1940 M Date Time Provider Department 02/28/25 [...] back and schedule appt w Dr Gutierrez. 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 Encounter Status:Closed by DEB OROZCO on 06/07/25 Normal [facility] INTABon 02-24-2025 Intrinsic Factor Abs 0.9 Au/mL Normal 0.0-1.1 [facility] Comment on above: Result Comment: Perf ormed At: [facility] [id number] Jacques Ferrell MD Ph:[phone] Performed By: #### C KYUNG MENON, MG, ADIFF, GFR, CMP, ANEU #### [address] [address] .Auto Diffon 02-22-2025 Basophil, Absolute 0.1 10 3/mcL Normal 0.0-0.3 [facility] Comment on above: Performed By: #### C KYUNG MENON, MG, ADIFF, GFR, CMP, ANEU #### [address] [address] Basophils/100 WBC (Bld) 1.4 % Normal 0.0-2.5 [facility] Comment on above: Performed By: #### C KYUNG MENON, MG, ADIFF, GFR, CMP, ANEU #### [address] [address] Eosinophil, Absolute 0.1 10 3/mcL Normal 0.0-0.7 [facility] Comment on above: Performed By: #### C LYNSEY, KYUNG, MG, ADIFF, GFR, CMP, ANEU #### [address] [address] Eosinophils/100 WBC (Bld) 2.0 % Normal 0.0-6.0 [facility] Comment on above: Performed By: #### C KYUNG MENON, MG, ADIFF, GFR, CMP, ANEU #### [address] [address] Lymphocyte, Absolute 1.5 10 3/mcL Normal 0.9-4.3 [facility] Comment on above: Performed By: #### C KYUNG MENON, MG, ADIFF, GFR, CMP, ANEU #### [address] [address] Lymphocytes/100 WBC (Bld) 26.0 % Normal 20.0-40.0 [facility] Comment on above: Performed By: #### C KYUNG MENON, MG, ADIFF, GFR, CMP, ANEU #### [address] [address] Monocyte, Absolute 0.5 10 3/mcL Normal 0.1-1.4 [facility] Comment on above: Performed By: #### C KYUNG MENON, MG, ADIFF, GFR, CMP, ANEU #### [address] [address] Monocytes/100 WBC (Bld) 7.8 % Normal 2.0-13.0 [facility] Comment on above: Performed By: #### C KYUNG MENON, MG, ADIFF, GFR, CMP, ANEU #### [address] [address] Neutrophils/100 WBC (Bld) 62.8 % Normal 50.0-75.0 [facility] Comment on above: Performed By: #### C BC, MDW, MG, ADIFF, GFR, CMP, ANEU #### [address] [address] .GFRon 02-22-2025 Estimated Glomerular Filtration Rate 30 ml/min/1.73sqm Normal [facility] Comment on above: Result Comment: Stages [...] MDW, MG, ADIFF, GFR, CMP, ANEU #### [place] [address] .MDWon 02-22-2025 Monocyte Distribution Width 17.57 Normal 0.00-20.00 [facility] Comment on above: Result Comment: For ED adult patients suspected of sepsis, MDW<=20.0 does not rule out sepsis or risk of sepsis Performed By: #### C BC, MDW, MG, ADIFF, GFR, CMP, ANEU #### [place] [address] .NEUABSon 02-22-2025 Neutrophil, Absolute 3.6 10 3/mcL Normal 2.3-8.1 [facility] Comment on above: Performed By: #### C BC, MDW, MG, ADIFF, GFR, CMP, ANEU #### [place] [address] CBCon 02-22-2025 Erythrocyte distribution width (RBC) [Ratio] 15.6 % High 11.5-15.5 [facility] Comment on above: Performed By: #### C BC, MDW, MG, ADIFF, GFR, CMP, ANEU #### [place] [address] Hematocrit (Bld) [Volume fraction] 32.7 % Low 40.0-52.0 [facility] Comment on above: Performed By: #### C KYUNG MENON, MG, ADIFF, GFR, CMP, ANEU #### [place] [address] Hgb 10.8 G/dL Low 13.0-17.5 [facility] Comment on above: Performed By: #### C KYUNG MENON, MG, ADIFF, GFR, CMP, ANEU #### [place] [address] MCH (RBC) [Entitic mass] 29.5 pg Normal 27.0-33.0 [facility] Comment on above: Performed By: #### C KYUNG MENON, MG, ADIFF, GFR, CMP, ANEU #### [place] [address] MCHC 33.0 G/dL Normal 32.0-36.0 [facility] Comment on above: Performed By: #### C KYUNG MENON, MG, ADIFF, GFR, CMP, ANEU #### [place] [address] MCV (RBC) [Entitic vol] 89.5 fL Normal 81.0-100.0 [facility] Comment on above: Performed By: #### C KYUNG MENON, MG, ADIFF, GFR, CMP, ANEU #### [place] [address] Platelet 104 10 3/mcL Low 150-450 [facility] Comment on above: Performed By: #### C KYUNG MENON, MG, ADIFF, GFR, CMP, ANEU #### [place] [address] Platelet mean volume (Bld) [Entitic vol] 7.2 fL Normal 6.4-10.5 [facility] Comment on above: Performed By: #### C KYUNG MENON, MG, ADIFF, GFR, CMP, ANEU #### [address] [address] RBC 3.65 10 6/mcL Low 4.50-6.00 [facility] Comment on above: Performed By: #### C KYUNG MENON, MG, ADIFF, GFR, CMP, ANEU #### [address] [address] WBC 5.8 10 3/mcL Normal 4.5-10.8 [facility] Comment on above: Performed By: #### C KYUNG MENON, MG, ADIFF, GFR, CMP, ANEU #### [address] [address] CMPon 02-22-2025 ALT [Catalytic activity/Vol] 9 U/L Low 16-63 [facility] Comment on above: Performed By: #### C KYUNG MENON, MG, ADIFF, GFR, CMP, ANEU #### [address] [address] Albumin Level 3.7 G/dL Normal 3.4-4.8 [facility] Comment on above: Performed By: #### C KYUNG MENON, MG, ADIFF, GFR, CMP, ANEU #### [address] [address] Albumin/Globulin [Mass ratio] 1.3 {ratio} Normal 1.1-2.5 [facility] Comment on above: Performed By: #### C KYUNG MENON, MG, ADIFF, GFR, CMP, ANEU #### [address] [address] ALP [Catalytic activity/Vol] 99 U/L Normal 40-135 [facility] Comment on above: Performed By: #### C KYUNG MENON, MG, ADIFF, GFR, CMP, ANEU #### [address] [address] AST [Catalytic activity/Vol] 14 U/L Normal 10-40 [facility] Comment on above: Performed By: #### C KYUNG MENON, MG, ADIFF, GFR, CMP, ANEU #### [address] [address] Bili Total 0.5 mg/dL Normal 0.2-1.0 [facility] Comment on above: Result Comment: Use of this assay is not recommended for patients undergoing treatment with eltrombopag due to the potential for falsely elevated results. Performed By: #### C LYNSEY, KYUNG, MG, ADIFF, GFR, CMP, ANEU #### [address] [address] BUN/Creatinine Ratio 16 ratio Normal 7-27 [facility] Comment on above: Performed By: #### C KYUNG MENON, MG, ADIFF, GFR, CMP, ANEU #### [address] [address] Calcium [Mass/Vol] 8.9 mg/dL Normal 8.4-10.2 [facility] Comment on above: Performed By: #### C KYUNG MENON, MG, ADIFF, GFR, CMP, ANEU #### [address] [address] Chloride [Moles/Vol] 106 mmol/L Normal 98-107 [facility] Comment on above: Performed By: #### C KYUNG MENON, MG, ADIFF, GFR, CMP, ANEU #### [address] [address] CO2 [Moles/Vol] 28 mmol/L Normal 23-31 [facility] Comment on above: Performed By: #### C KYUNG MENON, MG, ADIFF, GFR, CMP, ANEU #### [address] [address] Creatinine [Mass/Vol] 2.12 mg/dL High 0.67-1.17 [facility] Comment on above: Performed By: #### C KYUNG MENON, MG, ADIFF, GFR, CMP, ANEU #### [address] [address] Electrolyte Balance 7.0 mEq/L Normal 4.0-15.0 [facility] Comment on above: Performed By: #### C KYUNG MENON, MG, ADIFF, GFR, CMP, ANEU #### [address] [address] Globulin 2.8 G/dL Normal 2.7-4.4 [facility] Comment on above: Performed By: #### C KYUNG MENON, MG, ADIFF, GFR, CMP, ANEU #### [address] [address] Glucose [Mass/Vol] 113 mg/dL High 83-110 [facility] Comment on above: Performed By: #### C KYUNG MENON, MG, ADIFF, GFR, CMP, ANEU #### [address] [address] Potassium [Moles/Vol] 4.7 mmol/L Normal 3.5-5.1 [facility] Comment on above: Performed By: #### C KYUNG MENON, MG, ADIFF, GFR, CMP, ANEU #### [address] [address] Sodium [Moles/Vol] 141 mmol/L Normal 136-145 [facility] Comment on above: Performed By: #### C KYUNG MENON, MG, ADIFF, GFR, CMP, ANEU #### [address] [address] Total Protein 6.5 G/dL Normal 6.4-8.2 [facility] Comment on above: Performed By: #### C KYUNG MENON, MG, ADIFF, GFR, CMP, ANEU #### [address] [address] Urea nitrogen [Mass/Vol] 34 mg/dL High 7-18 [facility] Comment on above: Performed By: #### C KYUNG MENON, MG, ADIFF, GFR, CMP, ANEU #### [address] [address] Jimmy 02-22-2025 Gastrin 113 pg/mL Normal 0-115 [facility] Comment on above: Result Comment: Siem Immulite 2000 Immunochemiluminometric assay (ICMA) Values obtained with different assay methods or kits cannot be used interchangeably. Results cannot be interpreted as absolute evidence of the presence or absence of malignant disease. Performed At: [facility] [id number] Jacques Ferrell MD Ph:[phone] Performed By: #### C BC, MDW, MG, ADIFF, GFR, CMP, ANEU #### [facility] [address] [place], [place] [address] LABORATORYOrdered By: SYSTEM SYSTEM on 02-22-2025 Albumin [...] 02-22-2025 Magnesium [Mass/Vol] 1.8 mg/dL Normal 1.8-2.4 [facility] Comment on above: Performed By: #### C BC, MDW, MG, ADIFF, GFR, CMP, ANEU #### [place] [address] .Auto Diffon 06-04-2025 Basophil, Absolute 0.0 10 3/mcL Normal 0.0-0.3 [facility] Comment on above: Performed By: #### C LYNSEY, KYUNG, MG, ADIFF, GFR, CMP, ANEU #### [address] [address] Basophils/100 WBC (Bld) 0.6 % Normal 0.0-2.5 [facility] Comment on above: Performed By: #### C BC, W, MG, ADIFF, GFR, CMP, ANEU #### [address] [address] Eosinophil, Absolute 0.1 10 3/mcL Normal 0.0-0.7 [facility] Comment on above: Performed By: #### C LYNSEY, KYUNG, MG, ADIFF, GFR, CMP, ANEU #### [address] [address] Eosinophils/100 WBC (Bld) 2.4 % Normal 0.0-6.0 [facility] Comment on above: Performed By: #### C KYUNG MENON, MG, ADIFF, GFR, CMP, ANEU #### [address] [address] Lymphocyte, Absolute 1.5 10 3/mcL Normal 0.9-4.3 [facility] Comment on above: Performed By: #### C LYNSEY, W, MG, ADIFF, GFR, CMP, ANEU #### [address] [address] Lymphocytes/100 WBC (Bld) 24.4 % Normal 20.0-40.0 [facility] Comment on above: Performed By: #### C LYNSEY, KYUNG, MG, ADIFF, GFR, CMP, ANEU #### [address] [address] Monocyte, Absolute 0.4 10 3/mcL Normal 0.1-1.4 [facility] Comment on above: Performed By: #### C LYNSEY, W, MG, ADIFF, GFR, CMP, ANEU #### [address] [address] Monocytes/100 WBC (Bld) 6.1 % Normal 2.0-13.0 [facility] Comment on above: Performed By: #### C KYUNG MENON, MG, ADIFF, GFR, CMP, ANEU #### [address] [address] Neutrophils/100 WBC (Bld) 66.5 % Normal 50.0-75.0 [facility] Comment on above: Performed By: #### C KYUNG MENON, MG, ADIFF, GFR, CMP, ANEU #### [address] [address] .GFRon 02-21-2025 Estimated Glomerular Filtration Rate 31 ml/min/1.73sqm Normal [facility] Comment on above: Result Comment: Stages [...] MENON, MG, ADIFF, GFR, CMP, ANEU #### [address] [address] .NEUABSon 02-21-2025 Neutrophil, Absolute 4.0 10 3/mcL Normal 2.3-8.1 [facility] Comment on above: Performed By: #### C KYUNG MENON, MG, ADIFF, GFR, CMP, ANEU #### [place] [id number] [place], [place] [address] B12on 02-21-2025 Cobalamin (Vitamin B12) [Mass/Vol] 1629 pg/mL High 211-911 [facility] Comment on above: Performed By: #### C KYUNG MENON, MG, ADIFF, GFR, CMP, ANEU #### [address] [address] BMPon 02-21-2025 BUN/Creatinine Ratio 15 ratio Normal 7-27 [facility] Comment on above: Performed By: #### C LYNSEY, KYUNG, MG, ADIFF, GFR, CMP, ANEU #### [place] [address] Calcium [Mass/Vol] 9.3 mg/dL Normal 8.4-10.2 [facility] Comment on above: Performed By: #### C KYUNG MENON, MG, ADIFF, GFR, CMP, ANEU #### [place] [address] Chloride [Moles/Vol] 106 mmol/L Normal 98-107 [facility] Comment on above: Performed By: #### C KYUNG MENON, MG, ADIFF, GFR, CMP, ANEU #### [place] [address] CO2 [Moles/Vol] 29 mmol/L Normal 23-31 [facility] Comment on above: Performed By: #### C KYUNG MENON, MG, ADIFF, GFR, CMP, ANEU #### [address] [address] Creatinine [Mass/Vol] 2.09 mg/dL High 0.67-1.17 [facility] Comment on above: Performed By: #### C KYUNG MENON, MG, ADIFF, GFR, CMP, ANEU #### [address] [address] Electrolyte Balance 6.0 mEq/L Normal 4.0-15.0 [facility] Comment on above: Performed By: #### C KYUNG MENON, MG, ADIFF, GFR, CMP, ANEU #### [place] [address] Glucose [Mass/Vol] 110 mg/dL Normal 83-110 [facility] Comment on above: Performed By: #### C KYUNG MENON, MG, ADIFF, GFR, CMP, ANEU #### [address] [address] Potassium [Moles/Vol] 6.0 mmol/L High 3.5-5.1 [facility] Comment on above: Performed By: #### C KYUNG MENON, MG, ADIFF, GFR, CMP, ANEU #### [place] [address] Sodium [Moles/Vol] 141 mmol/L Normal 136-145 [facility] Comment on above: Performed By: #### C KYUNG MENON, MG, ADIFF, GFR, CMP, ANEU #### [place] [address] Urea nitrogen [Mass/Vol] 32 mg/dL High 7-18 [facility] Comment on above: Performed By: #### C KYUNG MENON, MG, ADIFF, GFR, CMP, ANEU #### [place] [address] CBCon 02-21-2025 Erythrocyte distribution width (RBC) [Ratio] 15.6 % High 11.5-15.5 [facility] Comment on above: Performed By: #### C KYUNG MENON, MG, ADIFF, GFR, CMP, ANEU #### [place] [address] Hematocrit (Bld) [Volume fraction] 32.6 % Low 40.0-52.0 [facility] Comment on above: Performed By: #### C KYUNG MENON, MG, ADIFF, GFR, CMP, ANEU #### [place] [address] Hgb 10.9 G/dL Low 13.0-17.5 [facility] Comment on above: Performed By: #### C KYUNG MENON, MG, ADIFF, GFR, CMP, ANEU #### [place] [address] MCH (RBC) [Entitic mass] 29.8 pg Normal 27.0-33.0 [facility] Comment on above: Performed By: #### C KYUNG MENON, MG, ADIFF, GFR, CMP, ANEU #### [address] [address] MCHC 33.3 G/dL Normal 32.0-36.0 [facility] Comment on above: Performed By: #### C KYUNG MENON, MG, ADIFF, GFR, CMP, ANEU #### [place] [address] MCV (RBC) [Entitic vol] 89.5 fL Normal 81.0-100.0 [facility] Comment on above: Performed By: #### C KYUNG MENON, MG, ADIFF, GFR, CMP, ANEU #### [address] [address] Platelet 99 10 3/mcL Low 150-450 [facility] Comment on above: Performed By: #### C KYUNG MENON, MG, ADIFF, GFR, CMP, ANEU #### [place] [address] Platelet mean volume (Bld) [Entitic vol] 7.3 fL Normal 6.4-10.5 [facility] Comment on above: Performed By: #### C KYUNG MENON, MG, ADIFF, GFR, CMP, ANEU #### [place] [id number] RBC 3.65 10 6/mcL Low 4.50-6.00 [facility] Comment on above: Performed By: #### C KYUNG MENON, MG, ADIFF, GFR, CMP, ANEU #### [place] [id number] WBC 6.0 10 3/mcL Normal 4.5-10.8 [facility] Comment on above: Performed By: #### C KYUNG MENON, MG, ADIFF, GFR, CMP, ANEU #### [place] [id number] Jimmy 02-21-2025 Fasting Y Yes Normal [facility] Comment on above: Performed By: #### C BC, MDW, MG, ADIFF, GFR, CMP, ANEU #### [place] [id number] [place], [place] [address] LABORATORYOrdered By: SYSTEM SYSTEM on 02-21-2025 25-hydroxyvitamin [...] PM) Normal AO Sendouts SS LABORATORYOrdered By: Moverati P CONTRIBUTOR_SYSTEM on 02-21-2025 Gastrin (LC) 113 pg/mL Invalid Interpretation Code [facility] Comment on above: Result Comment: [facility] Rock[facility] 2000 Immunochemiluminometric assay (ICMA) Values obtained with different assay methods or kits cannot be used interchangeably. Results cannot be interpreted as absolute evidence of the presence or absence of malignant disease. Performed At: [facility] [id number] Jacques Ferrell MD Ph:[phone] Intrinsic Factor Abs (LC) 0.9 Au/mL Invalid Interpretation Code 0.0-1.1 [facility] Comment on above: Result Comment: Perf ormed At: [facility] [id number] Jacques Ferrell MD Ph:[phone] MGon 02-21-2025 Magnesium [Mass/Vol] 1.9 mg/dL Normal 1.8-2.4 [facility] Comment on above: Performed By: #### C KYUNG MENON, MG, ADIFF, GFR, CMP, ANEU #### [facility] [address] [place], [place] [address] PTHon 02-21-2025 PTH, Intact 170.3 pg/mL High 18.5-88.0 [facility] Comment on above: Performed By: #### C KYUNG MENON, MG, ADIFF, GFR, CMP, ANEU #### [facility] [address] [place], [place] [address] VIDHon 02-21-2025 Vit. D 25-Hydroxy 32.7 ng/mL Normal [facility] Comment on above: Result Comment: Inte rpretive Values Based on Total 25(OH) Vitamin D: Deficient <20 ng/mL Insufficient 20 - <30 ng/mL Sufficient 30-100 ng/mL Performed By: #### C KYUNG MENON, MG, ADIFF, GFR, CMP, ANEU #### [facility] [address] [place], [place] [address] Cardiology Visit Reporton Cardiology Visit Report [facility] 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 Essential hypertension Atherosclerotic heart disease of [place] coronary artery without angina pectoris Postoperative atrial [...] rarely substance use type: does not use arelis/rastafari: Riparius seatbelt use: always ROS Const Const: Positive [...] on 02-08-2025 Bilirubin [Mass/Vol] 0.48 mg/dL 0.00-1.30 [facility] Calculated very low density lipoprotein (VLDL) cholesterol measurementOrdered By: Maryuri Begum on 02-08-2025 Calculated very low density lipoprotein (VLDL) cholesterol measurement 18 mg/dL 5-40 [facility] LDL calc ser/plasOrdered By: Maryuri Begum on 02-08-2025 Cholesterol in LDL [Mass/Vol] 25 mg/dL [facility] Comment on above: Zadqwsdlbk=111-897 m g/dL & Higher Qfkb=148 mg/dL or greater Laboratory - Chemistry and C hemistry - challengeOrdered By: Maryuri Begum on 02-08-2025 AST [Catalytic activity/Vol] 16 U/L <38 [facility] Lipid Profileon 02-08-2025 CHOL:HDL 2.13 Normal [facility] Comment on above: Performed By: #### L 500.3400, L500.4100 #### [facility] [address] [place], [address] Cholesterol [Mass/Vol] 80 mg/dL Normal <=200 [facility] Comment on above: Result Comment: Chol esterol level, Desirable <200 mg/dL Borderline high cholesterol 200-239 mg/dL High cholesterol >=240 mg/dL Recommendations of the NCEP Adult Treatment Panel for the following risk-cutoff thresholds for the [place] population. Performed By: #### L 500.3400, L500.4100 #### [facility] [address] [place], [address] Cholesterol in HDL [Mass/Vol] 38 mg/dL Low [...] [facility] [address] [place], [address] Cholesterol in LDL [Mass/Vol] 25 mg/dL Normal [facility] Comment on above: Result Comment: Bord winjdt=300-085 mg/dL Higher Bnfs=575 mg/dL or greater Performed By: #### L 500.3400, L500.4100 #### [facility] [address] [place], [address] Cholesterol in VLDL [Mass/Vol] 18 mg/dL Normal 5-40 [facility] Comment on above: Performed By: #### L 500.3400, L500.4100 #### [facility] [address] [place], [address] Triglyceride [Mass/Vol] 89 mg/dL Normal [facility] Comment on above: Result Comment: The drugs N-Acetylcysteine and Metamizole may falsely depress this assay. Normal range: <150 mg/dL Borderline High: 150-199 mg/dL High: 200-499 mg/dL Very High: >500 mg/dL Performed By: #### L 500.3400, L500.4100 #### [facility] [address] [place], [address] Liver Profileon 02-08-2025 Albumin [Mass/Vol] 3.9 g/dL Normal 3.4-4.8 [facility] Comment on above: Performed By: #### L 500.3400, L500.4100 #### [facility] [address] [place], [address] ALK PHOS 89 U/L Normal 40-129 [facility] Comment on above: Performed By: #### L 500.3400, L500.4100 #### [facility] [address] [place], [address] ALT [Catalytic activity/Vol] 6 U/L Normal <=46 [facility] Comment on above: Performed By: #### L 500.3400, L500.4100 #### [facility] [address] [place], [address] AST [Catalytic activity/Vol] 16 U/L Normal <=37 [facility] Comment on above: Performed By: #### L 500.3400, L500.4100 #### [facility] [address] [place], [address] Bilirubin [Mass/Vol] 0.48 mg/dL Normal 0.00-1.30 [facility] Comment on above: Performed By: #### L 500.3400, L500.4100 #### [facility] [address] [place], [address] Bilirubin.direct [Mass/Vol] 0.26 mg/dL Normal 0.00-0.30 [facility] Comment on above: Performed By: #### L 500.3400, L500.4100 #### [facility] [address] [place], [address] Globulin (S) [Mass/Vol] 2.5 g/dL Normal 2.2-4.2 [facility] Comment on above: Performed By: #### L 500.3400, L500.4100 #### [facility] [address] [place], [address] T PROT 6.5 g/dL Normal 5.9-8.4 [facility] Comment on above: Performed By: #### L 500.3400, L500.4100 #### [facility] [address] [place], [address] Screening total cholesterol/ high density lipoprotein (HDL) cholesterol ratioOrdered By: Maryuri Begum on 02-08-2025 Cholesterol.total/Choles terol in HDL [Mass ratio] 2.13 {ratio} [facility] Serum globulin measurementOr dered By: Maryuri Begum on 02-08-2025 Globulin (S) [Mass/Vol] 2.5 g/dL 2.2-4.2 [facility] Serum or plasma alanine mora otransferase (ALT) measurementOrdered By: Maryuri Begum on 02-08-2025 ALT [Catalytic activity/Vol] 6 U/L <47 [facility] Serum or plasma albumin francisco urement (mass/volume)Ordered By: Maryuri Begum on 02-08-2025 Albumin [Mass/Vol] 3.9 g/dL 3.4-4.8 [facility] Serum or plasma alkaline edna sphatase [...] on 02-08-2025 Cholesterol [Mass/Vol] 80 mg/dL <201 [facility] Comment on above: Cholesterol level, D esirable <200 mg/dLBorderline high cholesterol 200-239 mg/dLHigh cholesterol >=240 mg/dLRecommendations of the NCEP Adult Treatment Panel for the following risk-cutoff thresholds for the [place] population. Total proteinOrdered By: Terell Begum on 02-08-2025 Protein [Mass/Vol] 6.5 g/dL 5.9-8.4 [facility] Triglycerides measurementOrd ered By: Maryuri Begum on 02-08-2025 Triglyceride [Mass/Vol] 89 mg/dL <199 [facility] Comment on above: The drugs N-Acetylcy steine and Metamizole may falsely depress this assay. Normal range: <150 mg/dLBorderline High: 150-199 mg/dLHigh: 200-499 mg/dLVery High: >500 mg/dL Neurology Visit Reporton Neurology Visit Report [facility] [address] [facility], [address] [place] [id number] OFFICE VISIT Date of Service: 11/29/24 MR#: [id number] Acct: [id number] Name: EKATERINA RANDHAWA Rep #: [id number] : 1940 Provider: Dr. Braxton garg MD Age/Sex: 84/M Location: [facility] Status: Signed HPI HPI Chief Complaint: Details: Interim History: Ekaterina returns for follow-up visit. He has a history of hypertension, diabetes mellitus, benign prostatic hypertrophy status post TURP, myocardial infarction status post CABG in 2018, hyperlipidemia and stage IV renal insufficiency. He [...] this began during his hospitalization for his MT/CABG and may have been procedure related). He [...] Reporton 0 11-16-2024 Urgent Care Visit Report [facility] [address], [address] [place] [address] OFFICE VISIT Date of Service: 11/16/24 MR#: [id number] Acct: [id number] Name: EKATERINA RANDHAWA Rep #: [id number] : 1940 Provider: DG Manning Age/Sex: 84/M Location: [facility] Status: Signed Intake Vital Signs 03/02/24 08:13 [...] 11/16/24 Hi story gram oral powder packet ([facility]) lisinopril 20 mg tablet 20 mg PO BID #180 tabs 09/19/24 Rx Have you fallen in the past year?: No Nurse's Note: Patient Right ankle is swollen and bruised. Patient states no pain unless you take both hands and squeeze it. Patient states this has been going on for a couple weeks off and on. Patient states he has RLS. 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 Essential hypertension Atherosclerotic heart disease of [place] coronary artery without angina pectoris Postoperative atrial [...] rarely substance use type: does not use arelis/rastafari: Riparius seatbelt use: always HPI HPI Chief Complaint: [...] Basophil, Absolute 0.0 10 3/mcL Normal 0.0-0.2 [facility] Comment on above: Performed By: #### C LYNSEY, KYUNG, MG, ADIFF, GFR, CMP, ANEU #### [address] [address] Basophils/100 WBC (Bld) 0.6 % Normal 0.0-2.5 [facility] Comment on above: Performed By: #### C KYUNG MENON, MG, ADIFF, GFR, CMP, ANEU #### [address] [address] Eosinophil, Absolute 0.2 10 3/mcL Normal 0.0-0.7 [facility] Comment on above: Performed By: #### C KYUNG MENON, MG, ADIFF, GFR, CMP, ANEU #### [address] [address] Eosinophils/100 WBC (Bld) 2.8 % Normal 0.0-7.0 [facility] Comment on above: Performed By: #### C KYUNG MENON, MG, ADIFF, GFR, CMP, ANEU #### [address] [address] Lymphocyte, Absolute 1.6 10 3/mcL Normal 0.9-4.3 [facility] Comment on above: Performed By: #### C KYUNG MENON, MG, ADIFF, GFR, CMP, ANEU #### [address] [address] Lymphocytes/100 WBC (Bld) 25.7 % Normal 20.0-40.0 [facility] Comment on above: Performed By: #### C LYNSEY, W, MG, ADIFF, GFR, CMP, ANEU #### [address] [address] Monocyte, Absolute 0.4 10 3/mcL Normal 0.1-1.4 [facility] Comment on above: Performed By: #### C BC, MDW, MG, ADIFF, GFR, CMP, ANEU #### [address] [address] Monocytes/100 WBC (Bld) 6.6 % Normal 2.0-13.0 [facility] Comment on above: Performed By: #### C LYNSEY, W, MG, ADIFF, GFR, CMP, ANEU #### [address] [address] Neutrophils/100 WBC (Bld) 64.3 % Normal 50.0-75.0 [facility] Comment on above: Performed By: #### C LYNSEY, W, MG, ADIFF, GFR, CMP, ANEU #### [address] [address] .GFRon 11-01-2024 Estimated Glomerular Filtration Rate 27 ml/min/1.73sqm Normal [facility] Comment on above: Result Comment: Stages [...] MDW, MG, ADIFF, GFR, CMP, ANEU #### [address] [address] .NEUABSon 11-01-2024 Neutrophil, Absolute 4.0 10 3/mcL Normal 2.3-8.1 [facility] Comment on above: Performed By: #### C KYUNG MENON, MG, ADIFF, GFR, CMP, ANEU #### [address] [address] BMPon 11-01-2024 BUN/Creatinine Ratio 13 ratio Normal 7-27 [facility] Comment on above: Performed By: #### C KYUNG MENON, MG, ADIFF, GFR, CMP, ANEU #### [address] [address] Calcium [Mass/Vol] 9.7 mg/dL Normal 8.4-10.2 [facility] Comment on above: Performed By: #### C KYUNG MENON, MG, ADIFF, GFR, CMP, ANEU #### [address] [address] Chloride [Moles/Vol] 108 mmol/L High 98-107 [facility] Comment on above: Performed By: #### C KYUNG MENON, MG, ADIFF, GFR, CMP, ANEU #### [address] [address] CO2 [Moles/Vol] 29 mmol/L Normal 23-31 [facility] Comment on above: Performed By: #### C KYUNG MENON, MG, ADIFF, GFR, CMP, ANEU #### [address] [address] Creatinine [Mass/Vol] 2.31 mg/dL High 0.70-1.30 [facility] Comment on above: Result Comment: Test ing performed on Siemens Dimension EXL analyzer using a modified kinetic Sonia technique. Performed By: #### C KYUNG MENON, MG, ADIFF, GFR, CMP, ANEU #### [address] [address] Electrolyte Balance 8.0 mEq/L Normal 4.0-15.0 [facility] Comment on above: Performed By: #### C KYUNG MENON, MG, ADIFF, GFR, CMP, ANEU #### [address] [address] Glucose [Mass/Vol] 111 mg/dL High 83-110 [facility] Comment on above: Performed By: #### C KYUNG MENON, MG, ADIFF, GFR, CMP, ANEU #### [address] [address] Potassium [Moles/Vol] 5.0 mmol/L Normal 3.5-5.1 [facility] Comment on above: Performed By: #### C KYUNG MENON, MG, ADIFF, GFR, CMP, ANEU #### [address] [address] Sodium [Moles/Vol] 145 mmol/L Normal 136-145 [facility] Comment on above: Performed By: #### C KYUNG MENON, MG, ADIFF, GFR, CMP, ANEU #### [place] [address] Urea nitrogen [Mass/Vol] 30 mg/dL High 7-18 [facility] Comment on above: Performed By: #### C KYUNG MENON, MG, ADIFF, GFR, CMP, ANEU #### [address] [address] CBCon 11-01-2024 Erythrocyte distribution width (RBC) [Ratio] 16.6 % High 11.5-15.5 [facility] Comment on above: Performed By: #### C KYUNG MENON, MG, ADIFF, GFR, CMP, ANEU #### [address] [address] Hematocrit (Bld) [Volume fraction] 34.4 % Low 40.0-52.0 [facility] Comment on above: Performed By: #### C KYUNG MENON, MG, ADIFF, GFR, CMP, ANEU #### [address] [address] Hgb 11.5 G/dL Low 13.0-17.5 [facility] Comment on above: Performed By: #### C KYUNG MENON, MG, ADIFF, GFR, CMP, ANEU #### [address] [address] MCH (RBC) [Entitic mass] 29.3 pg Normal 27.0-33.0 [facility] Comment on above: Performed By: #### C KYUNG MENON, MG, ADIFF, GFR, CMP, ANEU #### [address] [address] MCHC 33.4 G/dL Normal 32.0-36.0 [facility] Comment on above: Performed By: #### C KYUNG MENON, MG, ADIFF, GFR, CMP, ANEU #### [place] [address] MCV (RBC) [Entitic vol] 87.9 fL Normal 81.0-100.0 [facility] Comment on above: Performed By: #### C KYUNG MENON, MG, ADIFF, GFR, CMP, ANEU #### [place] [address] Platelet 90 10 3/mcL Low 150-450 [facility] Comment on above: Performed By: #### C KYUNG MENON, MG, ADIFF, GFR, CMP, ANEU #### [address] [address] Platelet mean volume (Bld) [Entitic vol] 7.9 fL Normal 6.4-10.5 [facility] Comment on above: Performed By: #### C KYUNG MENON, MG, ADIFF, GFR, CMP, ANEU #### [address] [address] RBC 3.91 10 6/mcL Low 4.50-6.00 [facility] Comment on above: Performed By: #### C KYUNG MENON, MG, ADIFF, GFR, CMP, ANEU #### [address] [address] WBC 6.2 10 3/mcL Normal 4.5-10.8 [facility] Comment on above: Performed By: #### C BC, MDW, MG, ADIFF, GFR, CMP, ANEU #### [place] [address] LABORATORYOrdered By: Leidy Gomez on 11-01-2024 Creatinine (U) [Mass/Vol] 88.0 mg/dL Invalid Interpretation Code AO ADM SS Protein (U) [Mass/Vol] 26 mg/dL Invalid Interpretation Code AO ADM SS U Ratio Prot/Creat 0.3 ratio Invalid Interpretation Code AO Chemistry S LABORATORYOrdered By: SYSTEM SYSTEM on 11-01-2024 25-hydroxyvitamin D3 [Mass/Vol] 23.4 [...] 11-01-2024 PTH, Intact 194.7 pg/mL High 18.5-88.0 [facility] Comment on above: Performed By: #### C KYUNG MENON, MG, ADIFF, GFR, CMP, ANEU #### [address] [address] RPCURon 11-01-2024 U Creatinine 88.0 mg/dL Normal [facility] Comment on above: Performed By: #### R PCUR #### [address] [address] U Protein 26 mg/dL Normal [facility] Comment on above: Performed By: #### R PCUR #### [address] [address] U Ratio Prot/Creat 0.3 ratio Normal [facility] Comment on above: Performed By: #### R PCUR #### [address] [address] URICon 11-01-2024 Uric Acid Lvl 7.2 mg/dL Normal 3.5-7.2 [facility] Comment on above: Performed By: #### C LYNSEY, KYUNG, MG, ADIFF, GFR, CMP, ANEU #### [place] [id number] [place], [place] [address] VIDHon 11-01-2024 Vit. D 25-Hydroxy 23.4 ng/mL Normal [facility] Comment on above: Result Comment: Inte rpretive Values Based on Total 25(OH) Vitamin D: Deficient <20 ng/mL Insufficient 20 - <30 ng/mL Sufficient 30-100 ng/mL Performed By: #### C LYNSEY, KYUNG, MG, ADDEMETRIS, GFR, CMP, ANEU #### [place] [id number] [place], [place] [address] CNOVSPon 09-12-2024 CNOVSP Visit (SP) Office (HEMAWS) ----- EKATERINA RANDHAWA ([id number]) 1940 M Date Time Provider Department 09/12/24 [...] which included preparing to see the patient, [id number] patient care, completing clinical documentation, obtaining and/or reviewing separately obtained history, counseling and educating the patient/family/caregiver, ordering medications, tests, or procedures, independently interpreting results (not separately reported), and communicating results to the patient/family/caregiver. Electronically Signed: Toney Gutierrez MD September 12, 2024 10:42 AM Referring Provider: JLUIS NICHOLE [[id number]] Allergies As of Date: 09/12/2024 (No Known Allergies) Date Reviewed: 09/12/2024 Reviewed by: Carrie García Ma, MA - Fully Assessed Reason for Visit: New Patient Evaluation [154] Primary Visit Diagnosis:Thrombocytopeni a (HCC) [D69.6] Other Visit Diagnosis:Anemia, unspecified type [D64.9] Order(s):COMPLETE BLOOD COUNT AND DIFFERENTIAL [SQCBCDIF] Order #: [id number] FUTURE ACTIVATED PARTIAL THROMBOPLASTIN TIME [SQPTT] Order #: [id number] FUTURE PROTHROMBIN TIME [SQPT] Order #: [id number] FUTURE Disposition: Return in about 4 months (more content not included)... Normal [facility] .Auto Diffon 08-11-2024 Basophil, Absolute 0.0 10 3/mcL Normal 0.0-0.2 [facility] Comment on above: Performed By: #### C KYUNG MENON, MG, ADIFF, GFR, CMP, ANEU #### [place] [id number] [place], [place] [address] Basophils/100 WBC (Bld) 0.6 % Normal 0.0-2.5 [facility] Comment on above: Performed By: #### C KYUNG MENON, MG, ADIFF, GFR, CMP, ANEU #### [address] [address] Eosinophil, Absolute 0.1 10 3/mcL Normal 0.0-0.7 [facility] Comment on above: Performed By: #### C KYUNG MENON, MG, ADIFF, GFR, CMP, ANEU #### [address] [address] Eosinophils/100 WBC (Bld) 1.6 % Normal 0.0-7.0 [facility] Comment on above: Performed By: #### C KYUNG MENON, MG, ADIFF, GFR, CMP, ANEU #### [address] [address] Lymphocyte, Absolute 1.3 10 3/mcL Normal 0.9-4.3 [facility] Comment on above: Performed By: #### C KYUNG MENON, MG, ADIFF, GFR, CMP, ANEU #### [address] [address] Lymphocytes/100 WBC (Bld) 20.5 % Normal 20.0-40.0 [facility] Comment on above: Performed By: #### C KYUNG MENON, MG, ADIFF, GFR, CMP, ANEU #### [address] [address] Monocyte, Absolute 0.4 10 3/mcL Normal 0.1-1.4 [facility] Comment on above: Performed By: #### C KYUNG MENON, MG, ADIFF, GFR, CMP, ANEU #### [address] [address] Monocytes/100 WBC (Bld) 6.7 % Normal 2.0-13.0 [facility] Comment on above: Performed By: #### C KYUNG MENON, MG, ADIFF, GFR, CMP, ANEU #### [address] [address] Neutrophils/100 WBC (Bld) 70.6 % Normal 50.0-75.0 [facility] Comment on above: Performed By: #### C KYUNG MENON, MG, ADIFF, GFR, CMP, ANEU #### [address] [address] .GFRon 08-11-2024 GFR 33 ml/min/1.73sqm Normal [facility] Comment on above: Result Comment: GFR [...] MENON, MG, ADIFF, GFR, CMP, ANEU #### [address] [address] GFR Non- 27 ml/min/1.73sqm Normal [facility] Comment on above: Result Comment: GFR [...] MENON, MG, ADIFF, GFR, CMP, ANEU #### [address] [address] .NEUABSon 08-11-2024 Neutrophil, Absolute 4.6 10 3/mcL Normal 2.3-8.1 [facility] Comment on above: Performed By: #### C KYUNG MENON, MG, ADIFF, GFR, CMP, ANEU #### [place] [address] B12on 08-11-2024 Cobalamin (Vitamin B12) [Mass/Vol] 360 pg/mL Normal 211-911 [facility] Comment on above: Performed By: #### C KYUNG MENON, MG, ADIFF, GFR, CMP, ANEU #### [place] [address] CBCon 08-11-2024 Erythrocyte distribution width (RBC) [Ratio] 15.2 % Normal 11.5-15.5 [facility] Comment on above: Performed By: #### C KYUNG MENON, MG, ADIFF, GFR, CMP, ANEU #### [place] [address] Hematocrit (Bld) [Volume fraction] 34.5 % Low 40.0-52.0 [facility] Comment on above: Performed By: #### C KYUNG MENON, MG, ADIFF, GFR, CMP, ANEU #### [place] [address] Hgb 11.4 G/dL Low 13.0-17.5 [facility] Comment on above: Performed By: #### C KYUNG MENON, MG, ADIFF, GFR, CMP, ANEU #### [place] [address] MCH (RBC) [Entitic mass] 29.4 pg Normal 27.0-33.0 [facility] Comment on above: Performed By: #### C KYUNG MENON, MG, ADIFF, GFR, CMP, ANEU #### [place] [address] MCHC 33.1 G/dL Normal 32.0-36.0 [facility] Comment on above: Performed By: #### C KYUNG MENON, MG, ADIFF, GFR, CMP, ANEU #### [address] [address] MCV (RBC) [Entitic vol] 88.9 fL Normal 81.0-100.0 [facility] Comment on above: Performed By: #### C LYNSEY, KYUNG, MG, ADIFF, GFR, CMP, ANEU #### [address] [address] Platelet 91 10 3/mcL Low 150-450 [facility] Comment on above: Performed By: #### C LYNSEY, W, MG, ADIFF, GFR, CMP, ANEU #### [address] [address] Platelet mean volume (Bld) [Entitic vol] 7.6 fL Normal 6.4-10.5 [facility] Comment on above: Performed By: #### C KYUNG MENON, MG, ADIFF, GFR, CMP, ANEU #### [address] [address] RBC 3.88 10 6/mcL Low 4.50-6.00 [facility] Comment on above: Performed By: #### C KYUNG MENON, MG, ADIFF, GFR, CMP, ANEU #### [address] [address] WBC 6.5 10 3/mcL Normal 4.5-10.8 [facility] Comment on above: Performed By: #### C KYUNG MENON, MG, ADIFF, GFR, CMP, ANEU #### [address] [address] CMPon 08-11-2024 Albumin Level 4.0 G/dL Normal 3.4-4.8 [facility] Comment on above: Performed By: #### C KYUNG MENON, MG, ADIFF, GFR, CMP, ANEU #### [address] [address] Albumin/Globulin [Mass ratio] 1.7 {ratio} Normal 1.1-2.5 [facility] Comment on above: Performed By: #### C KYUNG MENON, MG, ADIFF, GFR, CMP, ANEU #### [address] [address] ALP [Catalytic activity/Vol] 72 U/L Normal 40-135 [facility] Comment on above: Performed By: #### C KYUNG MENON, MG, ADIFF, GFR, CMP, ANEU #### [address] [address] ALT [Catalytic activity/Vol] 17 U/L Normal 16-63 [facility] Comment on above: Performed By: #### C KYUNG MENON, MG, ADIFF, GFR, CMP, ANEU #### [place] [address] AST [Catalytic activity/Vol] 14 U/L Normal 10-40 [facility] Comment on above: Performed By: #### C KYUNG MENON, MG, ADIFF, GFR, CMP, ANEU #### [place] [address] Bili Total 0.7 mg/dL Normal 0.2-1.0 [facility] Comment on above: Result Comment: Use of this assay is not recommended for patients undergoing treatment with eltrombopag due to the potential for falsely elevated results. Performed By: #### C KYUNG MENON, MG, ADIFF, GFR, CMP, ANEU #### [address] [address] BUN/Creatinine Ratio 12 ratio Normal 7-27 [facility] Comment on above: Performed By: #### C KYUNG MENON, MG, ADIFF, GFR, CMP, ANEU #### [address] [address] Calcium [Mass/Vol] 8.9 mg/dL Normal 8.4-10.2 [facility] Comment on above: Performed By: #### C KYUNG MENON, MG, ADIFF, GFR, CMP, ANEU #### [address] [address] Chloride [Moles/Vol] 107 mmol/L Normal 98-107 [facility] Comment on above: Performed By: #### C LYNSEY, W, MG, ADIFF, GFR, CMP, ANEU #### [address] [address] CO2 [Moles/Vol] 26 mmol/L Normal 23-31 [facility] Comment on above: Performed By: #### C LYNSEY, W, MG, ADIFF, GFR, CMP, ANEU #### [place] [id number] Creatinine [Mass/Vol] 2.31 mg/dL High 0.70-1.30 [facility] Comment on above: Result Comment: Test ing performed on Siemens Dimension EXL analyzer using a modified kinetic Sonia technique. Performed By: #### C LYNSEY, W, MG, ADIFF, GFR, CMP, ANEU #### [place] [address] Electrolyte Balance 9.0 mEq/L Normal 4.0-15.0 [facility] Comment on above: Performed By: #### C LYNSEY, KYUNG, MG, ADIFF, GFR, CMP, ANEU #### [place] [address] Globulin 2.4 G/dL Normal [facility] Comment on above: Performed By: #### C LYNSEY, W, MG, ADIFF, GFR, CMP, ANEU #### [place] [address] Glucose [Mass/Vol] 111 mg/dL High 83-110 [facility] Comment on above: Performed By: #### C LYNSEY, W, MG, ADIFF, GFR, CMP, ANEU #### [address] [address] Potassium [Moles/Vol] 4.7 mmol/L Normal 3.5-5.1 [facility] Comment on above: Performed By: #### C LYNSEY, W, MG, ADIFF, GFR, CMP, ANEU #### [place] [address] Sodium [Moles/Vol] 142 mmol/L Normal 136-145 [facility] Comment on above: Performed By: #### C KYUNG MENON, MG, ADIFF, GFR, CMP, ANEU #### [address] [address] Total Protein 6.4 G/dL Normal 6.4-8.2 [facility] Comment on above: Performed By: #### C KYUNG MENON, MG, ADIFF, GFR, CMP, ANEU #### [address] [address] Urea nitrogen [Mass/Vol] 28 mg/dL High 7-18 [facility] Comment on above: Performed By: #### C KYUNG MENON, MG, ADIFF, GFR, CMP, ANEU #### [address] [address] Jose 08-11-2024 Ferritin [Mass/Vol] 28.0 ng/mL Normal 26.0-388.0 [facility] Comment on above: Performed By: #### C KYUNG MENON, MG, ADIFF, GFR, CMP, ANEU #### [address] [address] FESon 08-11-2024 Iron [Mass/Vol] 83 ug/dL Normal 65-175 [facility] Comment on above: Performed By: #### C KYUNG MENON, MG, ADIFF, GFR, CMP, ANEU #### [address] [address] Iron Sat 26 % Normal [facility] Comment on above: Performed By: #### C KYUNG MENON, MG, ADIFF, GFR, CMP, ANEU #### [address] [address] TIBC 316 mcg/dL Normal 250-450 [facility] Comment on above: Performed By: #### C KYUNG MENON, MG, ADIFF, GFR, CMP, ANEU #### [address] [address] HCVon 08-11-2024 Hep C Ab Non-Reactive Normal Non-Reacti ve [facility] Comment on above: Performed By: #### C LYNSEY, W, MG, ADIFF, GFR, CMP, ANEU #### [place] [id number] [place], [place] [address] Hep C Ab Int Normal [facility] Comment on above: Result Comment: Nonr eactive: Samples with a value < 0.80 are considered nonreactive (negative) for antibodies to HCV. A negative test result does not exclude the possibility of exposure to or infection with HCV. HCV antibodies may be undetectable in some stages of the infection and in some clinical conditions. See Interp Performed By: #### C LYNSEY, KYUNG, MG, ADIFF, GFR, CMP, ANEU #### [place] [id number] [place], [place] [address] LABORATORYOrdered By: SYSTEM SYSTEM on 08-11-2024 Albumin [...] 08-11-2024 Cholesterol [Mass/Vol] 78 mg/dL Normal 0-200 [facility] Comment on above: Result Comment: Chol esterol Reference Interval: Less than 200 Desirable 200-239 Borderline high risk 240 and above High risk Performed By: #### C KYUNG MENON, MG, ADIFF, GFR, CMP, ANEU #### [address] [address] Cholesterol in HDL [Mass/Vol] 35 mg/dL Low 40-60 [facility] Comment on above: Performed By: #### C KYUNG MENON, MG, ADIFF, GFR, CMP, ANEU #### [address] [address] Cholesterol in LDL [Mass/Vol] 27 mg/dL Normal 0-130 [facility] Comment on above: Performed By: #### C KYUNG MENON, MG, ADIFF, GFR, CMP, ANEU #### [address] [address] Triglyceride [Mass/Vol] 79 mg/dL Normal 0-150 [facility] Comment on above: Result Comment: Trig lyceride Reference Interval: Less than 150 Normal 150-199 Borderline high risk 200-499 High risk 500 or higher Very high risk Performed By: #### C KYUNG MENON, MG, ADIFF, GFR, CMP, ANEU #### [address] [address] MGon 08-11-2024 Magnesium [Mass/Vol] 1.7 mg/dL Low 1.8-2.4 [facility] Comment on above: Performed By: #### C KYUNG MENON, MG, ADIFF, GFR, CMP, ANEU #### [address] [address] PBNPon 08-11-2024 Natriuretic peptide B (Bld) [Mass/Vol] 1518 pg/mL High 0-450 [facility] Comment on above: Result Comment: NT-p roBNP results of less than 300 pg/mL effectively rules out acute congestive heart failure with 99% negative predictive value. Performed By: #### C BC, MDW, MG, ADIFF, GFR, CMP, ANEU #### [place] [id number] [place], [place] [address] LABORATORYOrdered By: SYSTEM SYSTEM on 07-07-2024 25-hydroxyvitamin [...] 0.1 10 3/mcL Normal 0.0-0.2 [facility] ([place]) Comment on above: Performed By: #### A DIFF, BMP, ANEU, VIDH, URIC, CBC, GFR #### [place] [address] #### PTH #### [address] [address] Basophils/100 WBC (Bld) 0.7 % Normal 0.0-2.5 [facility] ([place]) Comment on above: Performed By: #### A DIFF, BMP, ANEU, VIDH, URIC, CBC, GFR #### [place] [address] #### PTH #### [address] [address] Eosinophil, Absolute 0.2 10 3/mcL Normal 0.0-0.4 [facility] ([place]) Comment on above: Performed By: #### A DIFF, BMP, ANEU, VIDH, URIC, CBC, GFR #### [place] [address] #### PTH #### [address] [address] Eosinophils/100 WBC (Bld) 2.1 % Normal 0.0-7.0 [facility] ([place]) Comment on above: Performed By: #### A DIFF, BMP, ANEU, VIDH, URIC, CBC, GFR #### [place] [address] #### PTH #### [address] [address] Lymphocyte, Absolute 2.0 10 3/mcL Normal 0.8-3.9 [facility] ([place]) Comment on above: Performed By: #### A DIFF, BMP, ANEU, VIDH, URIC, CBC, GFR #### [place] [address] #### PTH #### [address] [address] Lymphocytes/100 WBC (Bld) 25.0 % Normal 10.0-50.0 [facility] ([place]) Comment on above: Performed By: #### A DIFF, BMP, ANEU, VIDH, URIC, CBC, GFR #### [address] [address] #### PTH #### [address] [address] Monocyte, Absolute 0.5 10 3/mcL Normal 0.2-1.0 [facility] ([place]) Comment on above: Performed By: #### A DIFF, BMP, ANEU, VIDH, URIC, CBC, GFR #### [address] [address] #### PTH #### [address] [address] Monocytes/100 WBC (Bld) 6.0 % Normal 1.7-13.0 [facility] ([place]) Comment on above: Performed By: #### A DIFF, BMP, ANEU, VIDH, URIC, CBC, GFR #### [address] [address] #### PTH #### [address] [address] Neutrophils/100 WBC (Bld) 66.2 % Normal 37.0-80.0 [facility] ([place]) Comment on above: Performed By: #### A DIFF, BMP, ANEU, VIDH, URIC, CBC, GFR #### [address] [address] #### PTH #### [address] [address] .GFRon 02-21-2024 GFR Non- 21 ml/min/1.73sqm Normal [facility] ([place]) Comment on above: Result Comment: GFR [...] BMP, ANEU, VIDH, URIC, CBC, GFR #### [address] [address] #### PTH #### [address] [address] GFR 26 ml/min/1.73sqm Normal [facility] ([place]) Comment on above: Result Comment: GFR Population [...] BMP, ANEU, VIDH, URIC, CBC, GFR #### [address] [address] #### PTH #### [address] [address] .NEUABSon 02-21-2024 Neutrophil, Absolute 5.2 10 3/mcL Normal 2.9-6.2 [facility] ([place]) Comment on above: Performed By: #### A DIFF, BMP, ANEU, VIDH, URIC, CBC, GFR #### [address] [address] #### PTH #### [address] [address] BMPon 02-21-2024 BUN/Creatinine Ratio 13 ratio Normal 7-27 [facility] ([place]) Comment on above: Performed By: #### A DIFF, BMP, ANEU, VIDH, URIC, CBC, GFR #### [address] [address] #### PTH #### [address] [address] Calcium [Mass/Vol] 10.1 mg/dL Normal 8.4-10.2 [facility] ([place]) Comment on above: Performed By: #### A DIFF, BMP, ANEU, VIDH, URIC, CBC, GFR #### [address] [address] #### PTH #### [place] [address] Chloride [Moles/Vol] 105 mmol/L Normal 98-107 [facility] ([place]) Comment on above: Performed By: #### A DIFF, BMP, ANEU, VIDH, URIC, CBC, GFR #### [address] [address] #### PTH #### [place] [address] CO2 [Moles/Vol] 29 mmol/L Normal 23-31 [facility] ([place]) Comment on above: Performed By: #### A DIFF, BMP, ANEU, VIDH, URIC, CBC, GFR #### [address] [address] #### PTH #### [address] [address] Creatinine [Mass/Vol] 2.85 mg/dL High 0.70-1.30 [facility] ([place]) Comment on above: Performed By: #### A DIFF, BMP, ANEU, VIDH, URIC, CBC, GFR #### [address] [address] #### PTH #### [address] [address] Electrolyte Balance 8.0 mEq/L Normal 4.0-15.0 [facility] ([place]) Comment on above: Performed By: #### A DIFF, BMP, ANEU, VIDH, URIC, CBC, GFR #### [address] [address] #### PTH #### [address] [address] Glucose [Mass/Vol] 120 mg/dL High 83-110 [facility] ([place]) Comment on above: Performed By: #### A DIFF, BMP, ANEU, VIDH, URIC, CBC, GFR #### [address] [address] #### PTH #### [address] [address] Potassium [Moles/Vol] 5.0 mmol/L Normal 3.5-5.1 [facility] ([place]) Comment on above: Performed By: #### A DIFF, BMP, ANEU, VIDH, URIC, CBC, GFR #### [address] [address] #### PTH #### [place] [address] Sodium [Moles/Vol] 142 mmol/L Normal 136-145 [facility] ([place]) Comment on above: Performed By: #### A DIFF, BMP, ANEU, VIDH, URIC, CBC, GFR #### [address] [address] #### PTH #### [address] [address] Urea nitrogen [Mass/Vol] 36 mg/dL High 7-18 [facility] ([place]) Comment on above: Performed By: #### A DIFF, BMP, ANEU, VIDH, URIC, CBC, GFR #### [address] [address] #### PTH #### [address] [address] CBCon 02-21-2024 Erythrocyte distribution width (RBC) [Ratio] 14.8 % High 11.5-14.5 [facility] ([place]) Comment on above: Performed By: #### A DIFF, BMP, ANEU, VIDH, URIC, CBC, GFR #### [place] [address] #### PTH #### [place] [address] Hematocrit (Bld) [Volume fraction] 34.7 % Low 42.0-52.0 [facility] ([place]) Comment on above: Performed By: #### A DIFF, BMP, ANEU, VIDH, URIC, CBC, GFR #### [place] [address] #### PTH #### [place] [address] Hgb 11.4 G/dL Low 14.0-18.0 [facility] ([place]) Comment on above: Performed By: #### A DIFF, BMP, ANEU, VIDH, URIC, CBC, GFR #### [place] [address] #### PTH #### [place] [address] MCH (RBC) [Entitic mass] 28.3 pg Normal 27.0-31.2 [facility] ([place]) Comment on above: Performed By: #### A DIFF, BMP, ANEU, VIDH, URIC, CBC, GFR #### [place] [address] #### PTH #### [place] [address] MCHC 32.8 G/dL Normal 31.8-35.4 [facility] ([place]) Comment on above: Performed By: #### A DIFF, BMP, ANEU, VIDH, URIC, CBC, GFR #### [place] [address] #### PTH #### [place] [address] MCV (RBC) [Entitic vol] 86.4 fL Normal 80.0-94.0 [facility] ([place]) Comment on above: Performed By: #### A DIFF, BMP, ANEU, VIDH, URIC, CBC, GFR #### [place] [address] #### PTH #### [place] [address] Platelet 93 10 3/mcL Low 130-400 [facility] ([place]) Comment on above: Performed By: #### A DIFF, BMP, ANEU, VIDH, URIC, CBC, GFR #### [place] [address] #### PTH #### [place] [address] Platelet mean volume (Bld) [Entitic vol] 8.2 fL Normal 7.4-10.4 [facility] ([place]) Comment on above: Performed By: #### A DIFF, BMP, ANEU, VIDH, URIC, CBC, GFR #### [place] [address] #### PTH #### [place] [address] RBC 4.01 10 6/mcL Low 4.04-6.13 [facility] ([place]) Comment on above: Performed By: #### A DIFF, BMP, ANEU, VIDH, URIC, CBC, GFR #### [place] [address] #### PTH #### [place] [address] WBC 7.8 10 3/mcL Normal 4.6-10.8 [facility] ([place]) Comment on above: Performed By: #### A DIFF, BMP, ANEU, VIDH, URIC, CBC, GFR #### [place] [address] #### PTH #### [place] [address] CRURon 02-21-2024 U Creatinine 98.9 mg/dL Normal 39.0-259.0 [facility] ([place]) Comment on above: Performed By: #### A DIFF, BMP, ANEU, VIDH, URIC, CBC, GFR #### [place] [address] [place], [place] [address] #### PTH #### [address] [address] LABORATORYOrdered By: SYSTEM SYSTEM on 02-21-2024 Creatinine [...] 02-21-2024 U Protein 18 mg/dL High 0-11 [facility] ([place]) Comment on above: Performed By: #### A DIFF, BMP, ANEU, VIDH, URIC, CBC, GFR #### [place] [id number] [place], [place] [address] #### PTH #### [address] [address] PTHon 02-21-2024 PTH, Intact 32.4 pg/mL Normal 18.5-88.0 [facility] ([place]) Comment on above: Performed By: #### A DIFF, BMP, ANEU, VIDH, URIC, CBC, GFR #### [address] [address] #### PTH #### [place] [address] URICon 02-21-2024 Uric Acid Lvl 8.8 mg/dL High 3.5-7.2 [facility] ([place]) Comment on above: Performed By: #### A DIFF, BMP, ANEU, VIDH, URIC, CBC, GFR #### [place] [address] #### PTH #### [place] [address] VIDHon 02-21-2024 Vit. D 25-Hydroxy 24.2 ng/mL Normal [facility] ([place]) Comment on above: Result Comment: Inte rpretive Values Based on Total 25(OH) Vitamin D: Deficient <20 ng/mL Insufficient 20 - <30 ng/mL Sufficient 30-100 ng/mL Performed By: #### A DIFF, BMP, ANEU, VIDH, URIC, CBC, GFR #### [place] [address] #### PTH #### [address] [address] .Auto Diffon 10-27-2023 Basophil, Absolute 0.1 10 3/mcL Normal 0.0-0.2 [facility] ([place]) Comment on above: Performed By: #### A DIFF, BMP, ANEU, VIDH, URIC, CBC, GFR #### [address] [address] #### PTH #### [address] [address] Basophils/100 WBC (Bld) 0.8 % Normal 0.0-2.5 [facility] ([place]) Comment on above: Performed By: #### A DIFF, BMP, ANEU, VIDH, URIC, CBC, GFR #### [address] [address] #### PTH #### [address] [address] Eosinophil, Absolute 0.2 10 3/mcL Normal 0.0-0.4 [facility] ([place]) Comment on above: Performed By: #### A DIFF, BMP, ANEU, VIDH, URIC, CBC, GFR #### [address] [address] #### PTH #### [address] [address] Eosinophils/100 WBC (Bld) 3.1 % Normal 0.0-7.0 [facility] ([place]) Comment on above: Performed By: #### A DIFF, BMP, ANEU, VIDH, URIC, CBC, GFR #### [address] [address] #### PTH #### [address] [address] Lymphocyte, Absolute 1.9 10 3/mcL Normal 0.8-3.9 [facility] ([place]) Comment on above: Performed By: #### A DIFF, BMP, ANEU, VIDH, URIC, CBC, GFR #### [address] [address] #### PTH #### [address] [address] Lymphocytes/100 WBC (Bld) 26.5 % Normal 10.0-50.0 [facility] ([place]) Comment on above: Performed By: #### A DIFF, BMP, ANEU, VIDH, URIC, CBC, GFR #### [address] [address] #### PTH #### [address] [address] Monocyte, Absolute 0.4 10 3/mcL Normal 0.2-1.0 [facility] ([place]) Comment on above: Performed By: #### A DIFF, BMP, ANEU, VIDH, URIC, CBC, GFR #### [address] [address] #### PTH #### [address] [address] Monocytes/100 WBC (Bld) 6.0 % Normal 1.7-13.0 A [facility] ([place]) Comment on above: Performed By: #### A DIFF, BMP, ANEU, VIDH, URIC, CBC, GFR #### [address] [address] #### PTH #### [address] [address] Neutrophils/100 WBC (Bld) 63.6 % Normal 37.0-80.0 [facility] ([place]) Comment on above: Performed By: #### A DIFF, BMP, ANEU, VIDH, URIC, CBC, GFR #### [address] [address] #### PTH #### [address] [address] .GFRon 10-27-2023 GFR 29 ml/min/1.73sqm Normal [facility] [facility] ([place] Comment on above: Result Comment: GFR [...] BMP, ANEU, VIDH, URIC, CBC, GFR #### [address] [address] #### PTH #### [address] [address] GFR Non- 24 ml/min/1.73sqm Normal [facility] ([place]) Comment on above: Result Comment: GFR Population [...] BMP, ANEU, VIDH, URIC, CBC, GFR #### [place] [address] #### PTH #### [address] [address] .NEUABSon 10-27-2023 Neutrophil, Absolute 4.5 10 3/mcL Normal 2.9-6.2 [facility] ([place]) Comment on above: Performed By: #### A DIFF, BMP, ANEU, VIDH, URIC, CBC, GFR #### [place] [address] #### PTH #### [address] [address] BMPon 10-27-2023 BUN/Creatinine Ratio 13 ratio Normal 7-27 [facility] ([place]) Comment on above: Performed By: #### A DIFF, BMP, ANEU, VIDH, URIC, CBC, GFR #### [address] [address] #### PTH #### [address] [address] Calcium [Mass/Vol] 9.6 mg/dL Normal 8.4-10.2 [facility] ([place]) Comment on above: Performed By: #### A DIFF, BMP, ANEU, VIDH, URIC, CBC, GFR #### [place] [id number] #### PTH #### [address] [address] Chloride [Moles/Vol] 107 mmol/L Normal 98-107 [facility] ([place]) Comment on above: Performed By: #### A DIFF, BMP, ANEU, VIDH, URIC, CBC, GFR #### [address] [address] #### PTH #### [address] [address] CO2 [Moles/Vol] 29 mmol/L Normal 23-31 [facility] ([place]) Comment on above: Performed By: #### A DIFF, BMP, ANEU, VIDH, URIC, CBC, GFR #### [place] [address] #### PTH #### [address] [address] Creatinine [Mass/Vol] 2.58 mg/dL High 0.70-1.30 [facility] ([place]) Comment on above: Performed By: #### A DIFF, BMP, ANEU, VIDH, URIC, CBC, GFR #### [place] [address] #### PTH #### [address] [address] Electrolyte Balance 7.0 mEq/L Normal 4.0-15.0 [facility] ([place]) Comment on above: Performed By: #### A DIFF, BMP, ANEU, VIDH, URIC, CBC, GFR #### [place] [address] #### PTH #### [address] [address] Glucose [Mass/Vol] 113 mg/dL High 83-110 [facility] ([place]) Comment on above: Performed By: #### A DIFF, BMP, ANEU, VIDH, URIC, CBC, GFR #### [place] [address] #### PTH #### [address] [address] Potassium [Moles/Vol] 4.0 mmol/L Normal 3.5-5.1 [facility] ([place]) Comment on above: Performed By: #### A DIFF, BMP, ANEU, VIDH, URIC, CBC, GFR #### [address] [address] #### PTH #### [address] [address] Sodium [Moles/Vol] 143 mmol/L Normal 136-145 [facility] ([place]) Comment on above: Performed By: #### A DIFF, BMP, ANEU, VIDH, URIC, CBC, GFR #### [address] [address] #### PTH #### [address] [address] Urea nitrogen [Mass/Vol] 34 mg/dL High 7-18 [facility] ([place]) Comment on above: Performed By: #### A DIFF, BMP, ANEU, VIDH, URIC, CBC, GFR #### [address] [address] #### PTH #### [address] [address] CBCon 10-27-2023 Erythrocyte distribution width (RBC) [Ratio] 15.1 % High 11.5-14.5 [facility] ([place]) Comment on above: Performed By: #### A DIFF, BMP, ANEU, VIDH, URIC, CBC, GFR #### [address] [address] #### PTH #### [address] [address] Hematocrit (Bld) [Volume fraction] 32.2 % Low 42.0-52.0 [facility] ([place]) Comment on above: Performed By: #### A DIFF, BMP, ANEU, VIDH, URIC, CBC, GFR #### [address] [address] #### PTH #### [address] [address] Hgb 10.9 G/dL Low 14.0-18.0 [facility] ([place]) Comment on above: Performed By: #### A DIFF, BMP, ANEU, VIDH, URIC, CBC, GFR #### [place] [address] #### PTH #### [place] [address] MCH (RBC) [Entitic mass] 29.1 pg Normal 27.0-31.2 [facility] ([place]) Comment on above: Performed By: #### A DIFF, BMP, ANEU, VIDH, URIC, CBC, GFR #### [place] [address] #### PTH #### [place] [address] MCHC 33.8 G/dL Normal 31.8-35.4 [facility] ([place]) Comment on above: Performed By: #### A DIFF, BMP, ANEU, VIDH, URIC, CBC, GFR #### [place] [address] #### PTH #### [place] [address] MCV (RBC) [Entitic vol] 86.0 fL Normal 80.0-94.0 [facility] ([place]) Comment on above: Performed By: #### A DIFF, BMP, ANEU, VIDH, URIC, CBC, GFR #### [place] [address] #### PTH #### [place] [address] Platelet 101 10 3/mcL Low 130-400 [facility] ([place]) Comment on above: Performed By: #### A DIFF, BMP, ANEU, VIDH, URIC, CBC, GFR #### [place] [address] #### PTH #### [place] [address] Platelet mean volume (Bld) [Entitic vol] 7.7 fL Normal 7.4-10.4 [facility] ([place]) Comment on above: Performed By: #### A DIFF, BMP, ANEU, VIDH, URIC, CBC, GFR #### [place] [address] #### PTH #### [place] [address] RBC 3.74 10 6/mcL Low 4.04-6.13 [facility] ([place]) Comment on above: Performed By: #### A DIFF, BMP, ANEU, VIDH, URIC, CBC, GFR #### [place] [address] #### PTH #### [place] [address] WBC 7.0 10 3/mcL Normal 4.6-10.8 [facility] ([place]) Comment on above: Performed By: #### A DIFF, BMP, ANEU, VIDH, URIC, CBC, GFR #### [place] [address] #### PTH #### [place] [address] CRURon 10-27-2023 U Creatinine 107.8 mg/dL Normal 39.0-259.0 [facility] ([place]) Comment on above: Performed By: #### A DIFF, BMP, ANEU, VIDH, URIC, CBC, GFR #### [place] [address] #### PTH #### [place] [address] PRURon 10-27-2023 U Protein 22 mg/dL High 0-11 [facility] ([place]) Comment on above: Performed By: #### A DIFF, BMP, ANEU, VIDH, URIC, CBC, GFR #### [place] [address] #### PTH #### [place] [address] PTHon 10-27-2023 PTH, Intact 48.1 pg/mL Normal 18.5-88.0 [facility] ([place]) Comment on above: Performed By: #### A DIFF, BMP, ANEU, VIDH, URIC, CBC, GFR #### [address] [address] #### PTH #### [place] [address] URICon 10-27-2023 Uric Acid Lvl 8.0 mg/dL High 3.5-7.2 [facility] ([place]) Comment on above: Performed By: #### A DIFF, BMP, ANEU, VIDH, URIC, CBC, GFR #### [place] [address] #### PTH #### [place] [address] VIDHon 10-27-2023 Vit. D 25-Hydroxy 29.2 ng/mL Normal [facility] ([place]) Comment on above: Result Comment: Inte rpretive Values Based on Total 25(OH) Vitamin D: Deficient <20 ng/mL Insufficient 20 - <30 ng/mL Sufficient 30-100 ng/mL Performed By: #### A DIFF, BMP, ANEU, VIDH, URIC, CBC, GFR #### [place] [address] #### PTH #### [place] [address] VIDDHon 06-10-2023 Vit. D 1,25 Dihydro. 25.6 pg/mL Normal 19.9-79.3 [facility] ([place]) Comment on above: Result Comment: Perf ormed By: [facility] [employer] [address] [place] [address] Java Swing Developer: Matthew Cheek III#: [id number] Performed By: #### A DIFF, BMP, ANEU, VIDH, URIC, CBC, GFR #### [address] [address] #### PTH #### [place] [address] .Auto Diffon 06-09-2023 Basophil, Absolute 0.1 10 3/mcL Normal 0.0-0.2 [facility] ([place]) Comment on above: Performed By: #### A DIFF, BMP, ANEU, VIDH, URIC, CBC, GFR #### [address] [address] #### PTH #### [address] [address] Basophils/100 WBC (Bld) 0.8 % Normal 0.0-2.5 [facility] ([place]) Comment on above: Performed By: #### A DIFF, BMP, ANEU, VIDH, URIC, CBC, GFR #### [address] [address] #### PTH #### [address] [address] Eosinophil, Absolute 0.3 10 3/mcL Normal 0.0-0.4 [facility] ([place]) Comment on above: Performed By: #### A DIFF, BMP, ANEU, VIDH, URIC, CBC, GFR #### [address] [address] #### PTH #### [address] [address] Eosinophils/100 WBC (Bld) 3.8 % Normal 0.0-7.0 [facility] ([place]) Comment on above: Performed By: #### A DIFF, BMP, ANEU, VIDH, URIC, CBC, GFR #### [address] [address] #### PTH #### [address] [address] Lymphocyte, Absolute 1.9 10 3/mcL Normal 0.8-3.9 [facility] ([place]) Comment on above: Performed By: #### A DIFF, BMP, ANEU, VIDH, URIC, CBC, GFR #### [address] [address] #### PTH #### [address] [address] Lymphocytes/100 WBC (Bld) 27.1 % Normal 10.0-50.0 [facility] ([place]) Comment on above: Performed By: #### A DIFF, BMP, ANEU, VIDH, URIC, CBC, GFR #### [address] [address] #### PTH #### [address] [address] Monocyte, Absolute 0.4 10 3/mcL Normal 0.2-1.0 [facility] ([place]) Comment on above: Performed By: #### A DIFF, BMP, ANEU, VIDH, URIC, CBC, GFR #### [address] [address] #### PTH #### [address] [address] Monocytes/100 WBC (Bld) 5.6 % Normal 1.7-13.0 [facility] ([place]) Comment on above: Performed By: #### A DIFF, BMP, ANEU, VIDH, URIC, CBC, GFR #### [address] [address] #### PTH #### [address] [address] Neutrophils/100 WBC (Bld) 62.7 % Normal 37.0-80.0 [facility] ([place]) Comment on above: Performed By: #### A DIFF, BMP, ANEU, VIDH, URIC, CBC, GFR #### [address] [address] #### PTH #### [address] [address] .GFRon 06-09-2023 GFR Non- 20 ml/min/1.73sqm Normal [facility] ([place]) Comment on above: Result Comment: GFR Population [...] BMP, ANEU, VIDH, URIC, CBC, GFR #### [address] [address] #### PTH #### [address] [address] GFR 25 ml/min/1.73sqm Normal [facility] ([place]) Comment on above: Result Comment: GFR Population [...] BMP, ANEU, VIDH, URIC, CBC, GFR #### [address] [address] #### PTH #### [address] [address] .NEUABSon 06-09-2023 Neutrophil, Absolute 4.3 10 3/mcL Normal 2.9-6.2 [facility] ([place]) Comment on above: Performed By: #### A DIFF, BMP, ANEU, VIDH, URIC, CBC, GFR #### [address] [address] #### PTH #### [address] [address] BMPon 06-09-2023 BUN/Creatinine Ratio 11 ratio Normal 7-27 [facility] ([place]) Comment on above: Performed By: #### A DIFF, BMP, ANEU, VIDH, URIC, CBC, GFR #### [address] [address] #### PTH #### [address] [address] Calcium [Mass/Vol] 9.8 mg/dL Normal 8.4-10.2 [facility] ([place]) Comment on above: Performed By: #### A DIFF, BMP, ANEU, VIDH, URIC, CBC, GFR #### [place] [address] #### PTH #### [place] [address] Chloride [Moles/Vol] 107 mmol/L Normal 98-107 [facility] ([place]) Comment on above: Performed By: #### A DIFF, BMP, ANEU, VIDH, URIC, CBC, GFR #### [place] [address] #### PTH #### [address] [address] CO2 [Moles/Vol] 31 mmol/L Normal 23-31 [facility] ([place]) Comment on above: Performed By: #### A DIFF, BMP, ANEU, VIDH, URIC, CBC, GFR #### [address] [address] #### PTH #### [place] [address] Creatinine [Mass/Vol] 2.98 mg/dL High 0.70-1.30 [facility] ([place]) Comment on above: Performed By: #### A DIFF, BMP, ANEU, VIDH, URIC, CBC, GFR #### [place] [address] #### PTH #### [address] [address] Electrolyte Balance 6.0 mEq/L Normal 4.0-15.0 [facility] ([place]) Comment on above: Performed By: #### A DIFF, BMP, ANEU, VIDH, URIC, CBC, GFR #### [address] [address] #### PTH #### [address] [address] Glucose [Mass/Vol] 106 mg/dL Normal 83-110 [facility] ([place]) Comment on above: Performed By: #### A DIFF, BMP, ANEU, VIDH, URIC, CBC, GFR #### [place] [address] #### PTH #### [address] [address] Potassium [Moles/Vol] 5.0 mmol/L Normal 3.5-5.1 [facility] ([place]) Comment on above: Performed By: #### A DIFF, BMP, ANEU, VIDH, URIC, CBC, GFR #### [place] [address] #### PTH #### [address] [address] Sodium [Moles/Vol] 144 mmol/L Normal 136-145 [facility] ([place]) Comment on above: Performed By: #### A DIFF, BMP, ANEU, VIDH, URIC, CBC, GFR #### [place] [address] #### PTH #### [address] [address] Urea nitrogen [Mass/Vol] 32 mg/dL High 7-18 [facility] ([place]) Comment on above: Performed By: #### A DIFF, BMP, ANEU, VIDH, URIC, CBC, GFR #### [place] [address] #### PTH #### [address] [address] CBCon 06-09-2023 Erythrocyte distribution width (RBC) [Ratio] 15.0 % High 11.5-14.5 [facility] ([place]) Comment on above: Performed By: #### A DIFF, BMP, ANEU, VIDH, URIC, CBC, GFR #### [place] [address] #### PTH #### [place] [address] Hematocrit (Bld) [Volume fraction] 32.1 % Low 42.0-52.0 [facility] ([place]) Comment on above: Performed By: #### A DIFF, BMP, ANEU, VIDH, URIC, CBC, GFR #### [place] [address] #### PTH #### [place] [address] Hgb 10.7 G/dL Low 14.0-18.0 [facility] ([place]) Comment on above: Performed By: #### A DIFF, BMP, ANEU, VIDH, URIC, CBC, GFR #### [place] [address] #### PTH #### [place] [address] MCH (RBC) [Entitic mass] 29.1 pg Normal 27.0-31.2 [facility] ([place]) Comment on above: Performed By: #### A DIFF, BMP, ANEU, VIDH, URIC, CBC, GFR #### [place] [address] #### PTH #### [place] [address] MCHC 33.4 G/dL Normal 31.8-35.4 [facility] ([place]) Comment on above: Performed By: #### A DIFF, BMP, ANEU, VIDH, URIC, CBC, GFR #### [place] [address] #### PTH #### [place] [address] MCV (RBC) [Entitic vol] 86.9 fL Normal 80.0-94.0 [facility] ([place]) Comment on above: Performed By: #### A DIFF, BMP, ANEU, VIDH, URIC, CBC, GFR #### [place] [address] #### PTH #### [place] [address] Platelet 118 10 3/mcL Low 130-400 [facility] ([place]) Comment on above: Performed By: #### A DIFF, BMP, ANEU, VIDH, URIC, CBC, GFR #### [place] [address] #### PTH #### [place] [address] Platelet mean volume (Bld) [Entitic vol] 8.4 fL Normal 7.4-10.4 [facility] ([place]) Comment on above: Performed By: #### A DIFF, BMP, ANEU, VIDH, URIC, CBC, GFR #### [place] [address] #### PTH #### [place] [address] RBC 3.70 10 6/mcL Low 4.04-6.13 [facility] ([place]) Comment on above: Performed By: #### A DIFF, BMP, ANEU, VIDH, URIC, CBC, GFR #### [place] [address] #### PTH #### [place] [address] WBC 6.8 10 3/mcL Normal 4.6-10.8 [facility] ([place]) Comment on above: Performed By: #### A DIFF, BMP, ANEU, VIDH, URIC, CBC, GFR #### [place] [address] #### PTH #### [place] [address] CRURon 06-09-2023 U Creatinine 94.6 mg/dL Normal 39.0-259.0 [facility] ([place]) Comment on above: Performed By: #### P RUR, CRUR #### [place] [address] PRURon 06-09-2023 U Protein 23 mg/dL High 0-11 [facility] ([place]) Comment on above: Performed By: #### P RODRIGO ADAMS #### [address] [address] PTHon 06-09-2023 PTH, Intact 55.8 pg/mL Normal 18.5-88.0 [facility] ([place]) Comment on above: Performed By: #### A DIFF, BMP, ANEU, VIDH, URIC, CBC, GFR #### [address] [address] #### PTH #### [place] [id number] URICon 06-09-2023 Uric Acid Lvl 8.6 mg/dL High 3.5-7.2 [facility] ([place]) Comment on above: Performed By: #### A DIFF, BMP, ANEU, VIDH, URIC, CBC, GFR #### [place] [id number] #### PTH #### [place] [address] Albumin Elph [Mass/Vol]Order ed By: Braxton Doss on 04-01-2023 Albumin [Mass/Vol] 3.9 g/dL 2.9-4.4 [facility] Basophil percentageOrdered B y: Braxton Doss on 04-01-2023 Basophil percentage Comment . [facility] Comment on above: No monoclonality det ected.Performed at: - [facility] [id number] Director: Jonnathan Meeks PhD, Phone: [phone] No Panel InformationOrdered By: Braxton Doss on 04-01-2023 Addendum Document Comment . [facility] Comment on above: Protein electrophore sis scan will follow via computer,mail, or lead quality control technician delivery. Serum [id number] measu rement by electrophoresisOrdered By: Braxton Doss on 04-01-2023 Alpha 1 globulin Elph [Mass/Vol] 0.2 g/dL 0.0-0.4 [facility] Alpha 1 globulin Elph [Mass/Vol] 0.7 g/dL 0.4-1.0 [facility] Serum globulin measurement ( mass/volume)Ordered By: Braxton Doss on 04-01-2023 Globulin (S) [Mass/Vol] 2.6 g/dL 2.2-3.9 [facility] Serum or plasma IgA measurem ent (mass/volume)Ordered By: Braxton Doss on 04-01-2023 IgA [Mass/Vol] 337 mg/dL 61-437 [facility] Serum or plasma IgG measurem ent (mass/volume)Ordered By: Braxtoncassandra Doss on 04-01-2023 IgG [Mass/Vol] 823 mg/dL 603-1613 [facility] Serum or plasma IgM measurem ent (mass/volume)Ordered By: Braxton Doss on 04-01-2023 IgM [Mass/Vol] 59 mg/dL 15-143 [facility] Serum or plasma beta globuli n measurement by electrophoresis (mass/volume)Ordered By: Braxton Doss on 04-01-2023 Beta globulin Elph [Mass/Vol] 1.1 g/dL 0.7-1.3 [facility] Serum or plasma gamma globul in measurement by electrophoresis (mass/volume)Ordered By: Braxton Doss on 04-01-2023 Gamma globulin Elph [Mass/Vol] 0.6 g/dL 0.4-1.8 [facility] Serum or plasma immunoelectr ophoresis interpretation (nominal result)Ordered By: Braxton Doss on 04-01-2023 Interpretation IEP [Interp] Comment . [facility] Comment on above: No monoclonality det ected. Thin prep Papanicolaou smear with manual screeningOrdered By: Braxton Doss on 04-01-2023 Thin prep Papanicolaou smear with manual screening 1.6 0.7-1.7 [facility] Total protein bloodOrdered B y: Braxton Doss on 04-01-2023 Protein [Mass/Vol] 6.5 g/dL 6.0-8.5 [facility] HFPon 02-25-2023 Bili Indirect 0.3 mg/dL Normal [facility] ([place]) Comment on above: Performed By: #### A DIFF, BMP, ANEU, VIDH, URIC, CBC, GFR #### [address] [address] #### PTH #### [address] [address] Albumin Level 3.8 G/dL Normal 3.4-4.8 [facility] ([place]) Comment on above: Performed By: #### A DIFF, BMP, ANEU, VIDH, URIC, CBC, GFR #### [address] [address] #### PTH #### [address] [address] Albumin/Globulin [Mass ratio] 1.4 {ratio} Normal 1.1-2.5 [facility] ([place]) Comment on above: Performed By: #### A DIFF, BMP, ANEU, VIDH, URIC, CBC, GFR #### [place] [address] #### PTH #### [address] [address] ALP [Catalytic activity/Vol] 62 U/L Normal 40-135 [facility] ([place]) Comment on above: Performed By: #### A DIFF, BMP, ANEU, VIDH, URIC, CBC, GFR #### [address] [address] #### PTH #### [address] [address] ALT [Catalytic activity/Vol] 14 U/L Low 16-63 [facility] ([place]) Comment on above: Performed By: #### A DIFF, BMP, ANEU, VIDH, URIC, CBC, GFR #### [address] [address] #### PTH #### [address] [address] AST [Catalytic activity/Vol] 22 U/L Normal 10-40 [facility] ([place]) Comment on above: Performed By: #### A DIFF, BMP, ANEU, VIDH, URIC, CBC, GFR #### [address] [address] #### PTH #### [address] [address] Bili Direct 0.2 mg/dL Normal 0.0-0.2 [facility] ([place]) Comment on above: Result Comment: Use of this assay is not recommended for patients undergoing treatment with eltrombopag due to the potential for falsely elevated results. Performed By: #### A DIFF, BMP, ANEU, VIDH, URIC, CBC, GFR #### [address] [address] #### PTH #### [place] [address] Bili Total 0.5 mg/dL Normal 0.2-1.0 [facility] ([place]) Comment on above: Result Comment: Use of this assay is not recommended for patients undergoing treatment with eltrombopag due to the potential for falsely elevated results. Performed By: #### A DIFF, BMP, ANEU, VIDH, URIC, CBC, GFR #### [address] [address] #### PTH #### [place] [address] Globulin 2.7 G/dL Normal [facility] ([place]) Comment on above: Performed By: #### A DIFF, BMP, ANEU, VIDH, URIC, CBC, GFR #### [address] [address] #### PTH #### [place] [address] Total Protein 6.5 G/dL Normal 6.4-8.2 [facility] ([place]) Comment on above: Performed By: #### A DIFF, BMP, ANEU, VIDH, URIC, CBC, GFR #### [address] [address] #### PTH #### [address] [address] LIPIDon 02-25-2023 Cholesterol [Mass/Vol] 85 mg/dL Normal 0-200 [facility] ([place]) Comment on above: Result Comment: Chol esterol Reference Interval: Less than 200 Desirable 200-239 Borderline high risk 240 and above High risk Performed By: #### A DIFF, BMP, ANEU, VIDH, URIC, CBC, GFR #### [address] [address] #### PTH #### [address] [address] Cholesterol in HDL [Mass/Vol] 41 mg/dL Normal 40-60 [facility] ([place]) Comment on above: Performed By: #### A DIFF, BMP, ANEU, VIDH, URIC, CBC, GFR #### [address] [address] #### PTH #### [address] [address] Cholesterol in LDL [Mass/Vol] 33 mg/dL Normal 0-130 [facility] ([place]) Comment on above: Performed By: #### A DIFF, BMP, ANEU, VIDH, URIC, CBC, GFR #### [address] [address] #### PTH #### [address] [address] Triglyceride [Mass/Vol] 53 mg/dL Normal 0-150 [facility] ([place]) Comment on above: Result Comment: Trig lyceride Reference Interval: Less than 150 Normal 150-199 Borderline high risk 200-499 High risk 500 or higher Very high risk Performed By: #### A DIFF, BMP, ANEU, VIDH, URIC, CBC, GFR #### [address] [address] #### PTH #### [address] [address] Basophil percentageOrdered B y: Dr. Doss on 12-08-2022 Bilirubin [Mass/Vol] 0.70 mg/dL 0.20-1.00 [facility] Comment on above: For patients on eltr ombopag therapy, use of Dimension [place] TBIL is not recommended. Chloride [Moles/Vol] 107 mmol/L 98-107 [facility] Glucose [Mass/Vol] 165 mg/dL 74-106 [facility] Comment on above: Fasting Glucose resu lt greater than or equal to 126 mg/dL suggests DIABETES MELLITUS per A.D.A. criteria. Potassium [Moles/Vol] 4.5 mmol/L 3.5-5.1 [facility] Protein [Mass/Vol] 7.2 g/dL 6.4-8.2 [facility] Sodium [Moles/Vol] 140 mmol/L 136-145 [facility] WBC (Bld) [#/Vol] 8.3 10*3/uL 4.4-11.0 [facility] Blood erythrocytes count (nu mber/volume)Ordered By: Dr. Doss on 12-08-2022 RBC (Bld) [#/Vol] 3.84 10*6/uL 4.6-6.2 [facility] Blood hemoglobin measurement (mass/volume)Ordered By: Dr. Dsos on 12-08-2022 Hemoglobin (Bld) [Mass/Vol] 11.3 g/dL 13.0-16.5 [facility] Blood platelet mean volumeOr dered By: Dr. Doss on 12-08-2022 Platelet mean volume (Bld) [Entitic vol] 11.2 fL 6.2-12.0 [facility] Determination of erythrocyte mean corpuscular volume (MCV)Ordered By: Dr. Doss on 12-08-2022 MCV (RBC) [Entitic vol] 91.7 fL 80-94 [facility] Hematocrit Auto (Bld) [Volum e fraction]Ordered [...] Globulin (S) [Mass/Vol] 3.4 g/dL 2.2-4.2 [facility] Urea nitrogen/Creatinine [Mass ratio] 13.2 mg/mg [...] 12-08-2022 MCHC (RBC) [Mass/Vol] 32.1 g/dL 32-36 [facility] No Panel InformationOrdered By: Dr. Doss on [...] [facility] Comment on above: Performed at: - [address] [id number] Director: Jonnathan Meeks PhD, Phone: [phone] at: - [facility] [id number] Director: Mariaelena Hanna MD, Phone: [phone] Platelets bldOrdered By: Dr. Doss on 12-08-2022 Platelets (Bld) [#/Vol] 162 10*3/uL 150-450 [facility] Serum immunoglobulin kappa l ight chains/immunoglobulin lambda light chains mass ratioOrdered By: Dr. Doss on 12-08-2022 Immunoglobulin light chains.kappa/Immunoglobu katie light chains.lambda (S) [Mass ratio] 1.89 0.26-1.65 [facility] Serum or plasma albumin francisco urement (mass/volume)Ordered By: Dr. Doss on 12-08-2022 Albumin [Mass/Vol] 3.8 g/dL 3.2-5.0 [facility] Serum or plasma albumin/glob ulin mass ratioOrdered By: Dr. Doss on 12-08-2022 Albumin/Globulin [Mass ratio] 1.1 {ratio} 0.9-2.4 [facility] Serum or plasma calcium francisco urement (mass/volume)Ordered By: Dr. Doss on 12-08-2022 Calcium [Mass/Vol] 10.1 mg/dL 8.5-10.1 [facility] Serum or plasma creatinine m easurement (mass/volume)Ordered By: Dr. Doss on 12-08-2022 Creatinine [Mass/Vol] 2.81 mg/dL 0.70-1.30 [facility] Comment on above: The validity of the [...] Interpretation Code AO ADM SS LABORATORYOrdered By: Roamer SYSTEM on 10-19-2022 Ferritin [Mass/Vol] 37.0 ng/mL [...] ADM SS LABORATORYOrdered By: SYSTEM SYSTEM on 08-25-2022 Bili Indirect 0.3 mg/dL [...] 150 mg/dL AO ADM SS LABORATORYOrdered By: Roamer SYSTEM on 01-19-2022 GFR 32 ml/min/1.73sqm Invalid [...] 27 ratio AO ADM SS LABORATORYOrdered By: Roamer SYSTEM on 11-18-2021 GFR 31 ml/min/1.73sqm Invalid Interpretation Code AO Chemistry S GFR Non- 26 ml/min/1.73sqm Inval id Interpretation Code AO Chemistry S Vital Signs Date Time Vital Sign Value Performing Clinician Facility 07-12-2025 12:17-0400 Diastolic Blood Pressure Non-Invasive 59 mm[Hg] FLORENTINPERLA MORAN DO [facility] 07-12-2025 12:17-0400 Heart rate 68 /min FLORENTIN MORAN DO [facility] 07-12-2025 12:17-0400 Respiratory rate 20 /min FLORENTIN MORAN DO [facility] 07-12-2025 12:17-0400 Systolic Blood Pressure Non-Invasive 105 mm[Hg] FLORENTIN MORAN DO [facility] 07-12-2025 09:39-0400 Body height 175.3 cm FLORENTIN MORAN DO [facility] 07-12-2025 09:39-0400 Body temperature 96.98 [degF] FLORENTIN MORAN DO [facility] 07-12-2025 09:39-0400 Body weight 90.9 kg FLORENTIN MORAN DO [facility] 07-12-2025 09:39-0400 Diastolic Blood Pressure Non-Invasive 54 mm[Hg] [facility] [facility] 07-12-2025 09:39-0400 Heart rate 79 /min FLORENTIN MORAN DO [facility] 07-12-2025 09:39-0400 Respiratory rate 16 /min FLORENTIN MORAN DO [facility] 07-12-2025 09:39-0400 Systolic Blood Pressure Non-Invasive 93 mm[Hg] FLORENTIN MORAN DO [facility] 06-11-2025 14:35-0400 Diastolic blood pressure 56 [...] 03-28-2025 09:39-0400 Body temperature 98.8 [degF] Dr. lJuis Nichole DO Work Phone: [facility] [...] 09:47-0400 Systolic blood pressure 110 mm[Hg] Dr. Jlusi Nichole DO Work Phone: [...] 172.7 cm Toney Gutierrez MD Work Phone: [facility] 09-12-2024 10:19-0500 Body mass index (BMI) [Ratio] 29.95 kg/m2 Toney Gutierrez MD Work Phone: [facility] 09-12-2024 10:19-0500 Body temperature 97.11 [degF] Toney Gutierrez MD Work Phone: [facility] 09-12-2024 10:19-0500 Body weight 89.36 kg Toney Gutierrez MD Work Phone: [facility] 09-12-2024 10:19-0500 Diastolic blood pressure 59 mm[Hg] Toney Gutierrez MD Work Phone: [facility] 09-12-2024 10:19-0500 Heart rate 58 /min Toney Gutierrez MD Work Phone: [facility] 09-12-2024 10:19-0500 SaO2% (BldA) [Mass fraction] 96 % Toney Gutierrez MD Work Phone: [facility] 09-12-2024 10:19-0500 Systolic blood pressure 128 mm[Hg] Toney Gutierrez MD Work Phone: [facility] 06-14-2024 11:21-0400 Blood Pressure Location FLORENTIN MORAN DO [facility] 06-14-2024 11:21-0400 Blood Pressure Method FLORENTIN MORAN DO [facility] 06-14-2024 11:21-0400 Body temperature 98.24 [degF] FLORENTIN MORAN DO [facility] 06-14-2024 11:21-0400 Diastolic Blood Pressure Non-Invasive 69 mm[Hg] FLORENTIN MORAN DO [facility] 06-14-2024 11:21-0400 Heart rate 60 /min FLORENTIN MORAN DO [facility] 06-14-2024 11:21-0400 Respiratory rate 18 /min FLORENTIN MORAN DO [facility] 06-14-2024 11:21-0400 Systolic Blood Pressure Non-Invasive 127 mm[Hg] FLORENTIN MORAN DO [facility] 04-01-2023 10:44-0400 Body height 175.26 cm [...] 04-01-2023 10:44-0400 Heart rate 76 /min Dr. aLyne Doherty Work Phone: [phone] [place] [address] 04-01-2023 10:44-0400 Respiratory rate 15 /min Dr. aLyne Doherty Work Phone: [facility] 04-01-2023 10:44-0400 SaO2% (BldA) [Mass fraction] 99 % Dr. Layne Doherty Work Phone: [facility] 04-01-2023 10:44-0400 Systolic blood pressure 114 mm[Hg] Dr. Layne Doherty Work Phone: [facility] [...] 98 % Dr. Layne Doherty Work Phone: [facility] [...] Date Encounter Type Care Provider Facility Start: 07-31-2025 ambulatory Jluis Nichole Facility:[facility] Start: 07-30-2025 ambulatory Jluis Nichole [facility] Start: 07-24-2025 End: 07-24-2025 ambulatory Jluis MILAN Facility:[facility] Start: 07-16-2025 End: 07-16-2025 ambulatory Jluis MILAN Facility:[facility] Start: 07-12-2025 End: 07-12-2025 Emergency department patient visit FLORENTIN DEAN LEE [facility] Start: 07-11-2025 End: 07-11-2025 ambulatory Jluis MILAN Facility:[facility] Start: 07-05-2025 End: 07-05-[address] JLUIS NICHOLE DO Facility:[facility] Start: 07-05-2025 End: 07-05-[address] JLUIS NICHOLE DO [facility] Start: 07-04-2025 End: 07-08-[address] JLUIS NICHOLE DO [facility] Start: 07-04-2025 End: 07-08-[address] JLUIS NICHOLE DO Facility:[facility] Start: 07-04-2025 End: 07-04-[address] JLUIS NICHOLE DO [facility] Start: 06-11-2025 End: 06-11-[address] Braxton Doss MD -[facility] Work Phone: Start: 06-11-2025 End: 06-11-[address] Jluis Nichole DO Work Phone: -[facility] Start: 04-26-2025 End: 04-26-[address] Jluis Nichole DO Work Phone: -Ultrasound [facility] Start: 04-26-2025 End: 04-26-[address] Porsha Bass DO -Ultrasound [facility] Work Phone: Start: 04-26-2025 End: 04-26-2025 [...] Non-patient / Non-visit Dr. Cecilio huitron MD -[facility] Start: 04-10-2025 End: 04-10-[address] Jluis Nichole DO Work Phone: -Cardiovascular Services Start: 04-10-2025 End: 04-10-2025 Patient encounter procedure Sharon RAGLAND -[facility] Work Phone: Start: 04-10-2025 End: 04-10-2025 ambulatory Porsha Bass Facility:[facility] Start: 03-28-2025 Non-patient / Non-visit Dr. Desire ROMAN -[facility] Start: 03-28-2025 End: 03-28-[address] Jluis Nichole DO Work Phone: -Cardiovascular Services Start: 03-28-2025 End: 03-28-2025 Patient encounter procedure Bailey CONTE -Cardiovascular Services Work Phone: Start: 03-28-2025 End: 03-28-2025 Patient encounter procedure Sharon RAGLAND -[facility] Work Phone: Start: 03-28-2025 End: 03-28-[address] Jluis Nichole DO Work Phone: -[facility] Start: 03-28-2025 End: 03-28-2025 ambulatory Jluis Nichole Facility:[facility] Start: 02-23-2025 End: 04-17-[address] JLUIS NICHOLE DO Facility:[facility] Start: 02-22-2025 End: 02-22-2025 Emergency department patient visit DAVID LAST MD [facility] Start: 02-21-2025 End: 02-25-[address] JLUIS NICHOLE DO Facility:[facility] Start: 02-21-2025 End: 02-25-[address] JLUIS NICHOLE DO [facility] Start: 02-16-2025 End: 02-16-2025 Patient encounter procedure Bailey CONTE -[facility] Work Phone: Start: 02-16-2025 End: 02-16-[address] Jluis Nichole DO Work Phone: [facility] Work Phone: Start: 02-08-2025 End: 02-08-[address] Jluis Nichole DO Work Phone: [facility] Work Phone: Start: 02-08-2025 End: 02-08-2025 Patient encounter procedure Maryuri RAGLAND -Laboratory Work Phone: Start: 02-08-2025 End: 02-08-2025 ambulatory Maryuri Begum Facility:[facility] Start: 11-29-2024 End: 11-29-[address] Braxton Doss MD -[facility] Work Phone: Start: 11-29-2024 End: 11-29-2024 ambulatory Braxton Doss Facility:[facility] Start: 11-16-2024 End: 11-16-2024 ambulatory Elijah Quintero DG Facility:[facility] Start: 11-16-2024 End: 11-16-2024 Patient encounter procedure Elijah Quintero DG -[facility] Work Phone: Start: 11-01-2024 End: 11-01-[address] JLUIS NICHOLE DO Facility:[facility] Start: 11-01-2024 End: 11-01-[address] TIA POWELL MD [facility] Start: 09-12-2024 End: 09-12-2024 ambulatory Toney Gutierrez MD Work Phone: Hematology/Oncology Comment on above: Thrombocytopenia (HC C) (Primary Dx); Anemia, unspecified type Start: 09-12-2024 End: 09-12-2024 Patient encounter procedure Toney Gutierrez MD Work Phone: Hematology/Oncology Start: 08-14-2024 End: 08-14-[address] JLUIS NICHOLE DO Facility:[facility] Start: 08-14-2024 End: 08-14-[address] JLUIS NICHOLE DO [facility] Start: 08-11-2024 End: 08-15-[address] JLUIS NICHOLE DO Facility:[facility] Start: 08-11-2024 End: 08-15-2024 Encounter for general adult medical examination without abnormal findings DR JLUIS NICHOLE DO Facility:[facility] Start: 08-11-2024 End: 08-15-[address] JLUIS NICHOLE DO [facility] Start: 07-07-2024 End: 07-07-[address] TIA POWELL MD [facility] Start: 06-14-2024 End: 06-14-2024 Emergency department patient visit FLORENTIN MORAN DO [facility] Start: 02-21-2024 End: 02-21-[address] TIA POWELL MD Facility:[facility] Start: 02-21-2024 End: 02-21-[address] TIA POWELL MD [facility] Start: 11-19-[address] JLUIS [...] Dr. Layne Doherty Work Phone: [facility] Work Phone: Start: 04-01-2023 End: 04-01-[address] Layne Doherty Work Phone: [facility] Work Phone: Start: 03-02-2023 End: 03-02-[address] Layne Doherty Work Phone: [facility] Work Phone: Start: 02-25-2023 End: 02-25-2023 ambulatory MARYURI SHY ABBASI Facility:[facility] Start: 12-14-2022 End: 12-14-[address] Layne Doherty Work Phone: [facility] Work Phone: Start: 12-14-2022 End: 12-14-[address] Layne Doherty Work Phone: [facility] Start: 12-08-2022 End: 12-08-[address] Layne Doherty Work Phone: [facility] Work Phone: Start: 12-08-2022 End: 12-08-[address] Layne Doherty Work Phone: [facility] Start: 11-26-2022 End: 11-26-[address] Layne Doherty Work Phone: [facility] Start: 10-30-2022 End: 10-30-[address] TIA POWELL MD [facility] Start: 10-19-2022 End: 10-19-[address] JLUIS NICHOLE DO [facility] Start: 09-01-2022 End: 09-01-[address] Layne Doherty Work Phone: [facility] Start: 08-25-2022 End: 08-25-2022 Patient encounter procedure MARYURI BEGUM MANAGER RISK MANAGEMENT [facility] Start: 04-29-2022 End: 04-29-[address] TIA POWELL MD [facility] Start: 03-09-2022 End: 03-09-[address] Lay[facility] Do[facility] Start: 03-07-2022 End: 03-07-[address] Layne Doherty Work Phone: [facility] Start: 01-19-2022 End: 01-19-[address] TIA POWELL MD [facility] Start: 12-30-2021 End: 04-07-2022 Physical therapy management LAYNE DOHERTY DO [facility] Start: 11-18-2021 End: 11-18-2021 Patient encounter procedure MARYURI BEGUM CNP [facility] Start: 06-01-2018 Patient encounter ARTEM Friedman cility:[facility] Procedures Date Procedure Procedure Detail Performing Clinician Start: 04-26-2025 Complete ultrasound of kidneys and bladder Dr. Jluis Nichole DO Work Phone: Start: 12-14-2022 MRI of brain without contrast Dr. Layne Doherty Work Phone: Start: 03-07-2022 MRI of brain without contrast Dr. Layne Doherty Work Phone: Start: 02-01-2019 Cystoscopy MARYURI BEGUM MANAGER RISK MANAGEMENT Comment on above: Per [place] office no te Start: 08-03-2018 Transurethral prostatectomy MARYURI BEGUM MANAGER RISK MANAGEMENT Comment on above: Per [place] office no te Start: 08-03-2018 Transurethral resect ion of bladder neoplasm MARYURI BEGUM MANAGER RISK MANAGEMENT Comment on above: Per [place] office no te Start: 06-03-2018 History of coronary artery bypass grafting S/P CABG x 5 Toney Gutierrez MD Work Phone: Start: 04-20-2018 History of coronary artery bypass grafting S/P coronary artery bypass graft x 5 Bailey CONTE Comment on above: SANCHEZ-LAD, SVG - acut e marginal, SVG seq to DG 2, DG3, SVG-OM 05/13/18 @ [facility] Start: 09-20-2002 Biopsy of prostate MARYURI BEGUM MANAGER RISK MANAGEMENT Comment on above: Per [place] office no te Start: 09-20-1997 Biopsy of prostate MARYURI BEGUM MANAGER RISK MANAGEMENT Comment on above: Per [place] office no te Extracorporeal shock wave lithotripsy of calculus of kidney MARYURI BEGUM MANAGER RISK MANAGEMENT Comment on above: Per [place] office no te Knee region structur e (body structure) MARYURI BEGUM MANAGER RISK MANAGEMENT Procedure on heart MARYURI BEGUM MANAGER RISK MANAGEMENT Structure of left wr ist (body structure) MARYURI BEGUM MANAGER RISK MANAGEMENT Comment on above: Pins s/p fall on ice Plan of Treatment Date Care Activity Detail Author Start: 10-07-2032 Urine microalbumin profile DTaP,Tdap,Td Vaccine (2 - Td or Tdap) [facility] Start: 01-11-2025 End: 01-11-2025 ambulatory 01/11/2025 10:20 AM EDT Visit (SP) Office Hematology/Oncology [address] [place] [address] [place] [address] [place] [address] CBC/ 4 MO OV Hematology/Oncology Comment on above: CBC/ 4 MO OV Start: 09-12-2024 End: 12-12-2024 aPTT in Platelet poor plasma by Coagulation assay ACTIVATED PARTIAL THROMBOPLASTIN TIME Lab Routine Thrombocytopenia (HCC) Expected: 09/12/2024, Expires: 12/12/2024 [facility] Comment on above: Expected: 09/12/2024 , Expires: 12/12/2024 Start: 09-12-2024 End: 12-12-2024 CBC W Auto Differential panel - Blood COMPLETE BLOOD COUNT AND DIFFERENTIAL Lab Routine Thrombocytopenia (HCC) Expected: 09/12/2024, Expires: 12/12/2024 [facility] Work Phone: Comment on above: Expected: 09/12/2024 , Expires: 12/12/2024 Start: 09-12-2024 End: 12-12-2024 PT panel - Platelet poor plasma by Coagulation assay PROTHROMBIN TIME Lab Routine Thrombocytopenia (HCC) Expected: 09/12/2024, Expires: 12/12/2024 [facility] Comment on above: Expected: 09/12/2024 , Expires: 12/12/2024 Start: 05-21-2024 Covid-19 Vaccine ( season) Covid-19 Vaccine () [facility] Start: 09-20-2023 Advance Directive Discussion Advance Directive Discussion [facility] Start: 08-13-2023 Shingrix Vaccine (2 of 2) Shingrix Vaccine (2 of 2) [facility] Start: 04-01-2023 [facility] Start: 04-01-2023 Urine [facility] Start: 11-26-2022 Patient referral [facility] Work Phone: Start: 07-01-2019 Hepatitis B surface antibody level LDL Cholesterol [facility] Start: 11-10-2018 Hemoglobin A1c measurement HbA1C [facility] Start: 1958 Anxiety Screening Anxiety Screening [facility] Start: 1958 Depression Screening Depression Scre ening [facility] Start: 1950 Diabetic foot examination Diabetic Foot Exam [facility] Start: 1950 Glaucoma screening Dilated Retinal E xam [facility] Start: 1950 Hepatitis B screening Urine Al bumin:Creatinine Ratio [facility] MR Brain WO contrast [facility] Patient referral [facility] Work Phone: Serum protein electrophoresis [facility] US Carotid arteries [facility] Immunizations Immunization Date Immunization Notes Care Provider Fa louis 06-28-2024 influenza, high dose seasonal, preservative-free; Translations: [Fluad PF Prefilled Syringe ] DR TIA POWELL MD [facility] 08-22-2023 RSV vaccine preF3, recombinant DR TIA POWELL MD [facility] 07-15-2023 SARS-CoV-2 (COVID-19 ) [id number] DR TIA POWELL MD [facility] 06-18-[address] TIA POWELL MD [facility] Comment on above: Result Comment: Oswaldo Aid. IM left upper arm 05-15-2023 influenza virus vaccine, unspecified formulation DR TIA POWELL MD [facility] 04-27-2023 pneumococcal 20-keron nt conjugate vaccine DR TIA POWELL MD [facility] 10-07-2022 tetanus toxoid, reduced diphtheria toxoid, and acellular pertussis vaccine, adsorbed; Translations: [Boostrix (Tdap)] DR JLUIS NICHOLE DO [facility] 08-22-2022 influenza virus vaccine, unspecified formulation DR TIA POWELL MD [facility] 01-26-2022 SARS-CoV-2 (COVID-19 ) mRNA-[address] TIA POWELL MD [facility] 07-24-2021 SARS-CoV-2 (COVID-19 ) mRNA-[address] TIA POWELL MD [facility] Comment on above: Result Comment: 2022: [id number] 06-04-2021 influenza virus vaccine, unspecified formulation DR TIA POWELL MD [facility] 11-07-2020 COVID-19, mRNA, LNP- S, PF, 100 mcg or 50 mcg dose; Translations: [Moderna COVID-19 Vaccine] MARYURI BEGUM MANAGER RISK MANAGEMENT [facility] 10-10-2020 COVID-19, mRNA, LNP- S, PF, 100 mcg or 50 mcg dose; Translations: [Moderna COVID-19 Vaccine] MARYURI BEGUM MANAGER RISK MANAGEMENT [facility] 05-23-2020 influenza virus vaccine, unspecified formulation MARYURI BEGUM MANAGER RISK MANAGEMENT [facility] Comment on above: Result Comment: brenda meier administered 05-23-2020 pneumococcal conjuga te vaccine, 13 valent MARYURI BEGUM MANAGER RISK MANAGEMENT [facility] 05-20-2019 influenza virus vaccine, unspecified formulation MARYURI BEGUM MANAGER RISK MANAGEMENT [facility] 06-15-2018 influenza virus vaccine, unspecified formulation MARYURI BEGUM MANAGER RISK MANAGEMENT [facility] 06-15-2018 influenza, injectabl e, quadrivalent, preservative free Dr. Jluis Nichole DO Work Phone: [facility] 06-15-2018 influenza, seasonal, injectable Dr. Layne Doherty Work Phone: [facility] 07-21-[address] Layne Doherty Work Phone: [facility] 06-08-2017 influenza virus vaccine, unspecified formulation MARYURI ROOF MANAGER RISK MANAGEMENT [facility] 06-09-2016 influenza virus vaccine, unspecified formulation MARYURI ROOF MANAGER RISK MANAGEMENT [facility] 06-11-2015 influenza virus vaccine, unspecified formulation MARYURI ROOF MANAGER RISK MANAGEMENT [facility] 05-21-2015 pneumococcal polysaccharide vaccine, 23 valent MARYURI ROOF MANAGER RISK MANAGEMENT [facility] 06-12-2014 influenza virus vaccine, unspecified formulation MARYURI ROOF MANAGER RISK MANAGEMENT [facility] 06-13-2013 influenza virus vaccine, unspecified formulation MARYURI ROOF MANAGER RISK MANAGEMENT [facility] 08-21-2005 pneumococcal polysaccharide vaccine, 23 valent MARYURI BEGUM MANAGER RISK MANAGEMENT [facility] Payers Date Payer Category Payer Self-pay [id number] 2016 Private Health Insurance [id number] 2016 Unknown [id number] 2005 Medicare [id number] 2005 Medicare [id number] 1940 Unknown [id number] 2.16.8 [id number] 1940 Unknown [id number] 2.16.8 40.1.647076.3.579.2.627 1940 Unknown [id number] 2.16.8 40.1.529243.3.579.2.627 1940 Unknown [id number] 2.16.8 40.1.189890.3.579.2.627 1940 Unknown [id number] 2.16.8 40.1.052783.3.579.2.627 1940 Unknown [id number] 2.16. 840.1.824709.3.579.2.62 1940 Unknown [id number] 2.16. 840.1.522821.3.579.2.62 1940 Unknown [id number] 2.16. 840.1.699588.3.579.2.627 1940 Unknown [id number] 2.16. 840.1.505843.3.579.2.627 1940 Unknown [id number] 2.16. 840.1.836237.3.579.2.627 1940 Unknown [id number] 2.16. 840.1.853481.3.579.2.62 1940 Unknown [id number] 2.16.8 40.1.836089.3.579.2.627 1940 Unknown [id number] 2.16.8 40.1.523688.3.579.2.627 1940 Unknown [id number] 2.16.8 40.1.097685.3.579.2.627 Unknown [id number] 2.16.8 40.1.969226.3.579.2.462 Unknown [id number] 2.16.8 40.1.154240.3.579.2.462 Unknown [id number] 2.16.8 40.1.959420.3.579.2.462 Unknown [id number] 2.16.8 40.1.651933.3.579.2.462 Unknown [id number] 2.16.8 40.1.737443.3.579.2.462 Unknown [id number] 2.16.8 40.1.629149.3.579.2.462 Unknown [id number] 2.16.8 40.1.665917.3.579.2.462 Unknown [id number] 2.16.8 40.1.669870.3.579.2.462 Unknown [id number] 2.16.8 40.1.670181.3.579.2.462 Unknown [id number] 2.16.8 40.1.561601.3.579.2.462 Unknown [id number] 2.16.8 40.1.068197.3.579.2.462 Unknown [id number] 2.16.8 40.1.158985.3.579.2.462 Unknown [id number] 2.16.8 40.1.769019.3.579.2.462 Unknown [id number] 2.16.8 40.1.611104.3.579.2.462 Unknown [id number] 2.16.8 40.1.480019.3.579.2.462 Unknown [id number] 2.16.8 40.1.677247.3.579.2.462 Unknown [id number] 2.16.8 40.1.442917.3.579.2.462 Social History Date Type Detail Facility Start: 06-20-2019 Never smoked t rakel (finding) [facility] Start: 1940 Sex Assigned At Male A [facility] Start: 03-09-2022 End: 04-01-2023 Tobacco smoking status NHIS Unknown if ever smoked [facility] Start: 03-22-2019 Non-smoker [facility] Start: 10-11-2022 End: 11-29-2024 Tobacco smoking status Ex-smoker (finding) [facility] Start: 06-09-2018 None [facility] Start: 06-09-2018 Spouse/ Signif icant Other [facility] End: 09-20-1993 History of tobacco use Current smoker [facility] End: 09-20-1993 History of tobacco use Cigar Smoker [facility] Start: 09-12-2024 Tobacco use and exposure Smokeless tobacco non-user [facility] Start: 05-13-2018 End: 09-12-2024 History of Social function [facility] Start: 05-13-2018 End: 09-12-2024 Tobacco use panel [facility] PHQ2 Score 0 [facility] Start: 1940 Sex assigned at Not on file [facility] Sexual Orientation [facility] Start: 08-14-2019 Sex Male (finding) [facility] Start: 07-12-2025 Not applicable (qualifier value) [facility] Medical Equipment Procedure Code Equipment Code Equipment Original Text Equipment Identifier Dates See Instructions , Freestyle lite test strips. use 1 strip daily. Use as directed, # 100 EA, 2 Refill(s), Pharmacy: [id number], Diabetes, 175, cm, 12/15/21 8:54:00 EDT, Height, 83.8 Start: 03-10-2022 See Instructions , Freestyle lite test strips. use 1 strip daily. Use as directed, # 100 EA, 2 Refill(s), Pharmacy: [facility]/pharmacy #[id number], Diabetes, 175, cm, 12/15/21 8:54:00 EDT, Height, 83.8 Start: 03-10-2022 See Instructions , Freestyle lite test strips. use 1 strip daily. Use as directed, # 100 EA, 2 Refill(s), Pharmacy: [id number], Diabetes, 175, cm, 12/15/21 8:54:00 EDT, Height, 83.8 Start: 03-10-2022 See Instructions , Freestyle lite test strips. use 1 strip daily. Use as directed, # 100 EA, 2 Refill(s), [id number], Diabetes, 175, cm, 12/15/21 8:54:00 EDT, Height, 83.8 Start: 03-10-2022 See Instructions , Freestyle lite test strips. use 1 strip daily. Use as directed, # 100 EA, 2 Refill(s), [id number] Diabetes, 175, cm, 12/15/21 8:54:00 EDT, Height, 83.8 Start: 03-10-2022 [place] Thk1.65mm P tfe 4x.5in Cardiovascular Sterile - [id number] Start: 05-13-2018 Functional Status Date Assessment Result Facility 07-12-2025 Functional Status Minimum assistance [facility] 07-12-2025 Functional Status [facility] 07-12-2025 [facility] 06-14-2024 Functional Status Minimum assistance [facility] 06-14-2024 Functional Status ID band on, Call device within reach, Bed in low position, Wheels locked, Upper/Half-Length side-rails up, Visitor at bedside, Safety level maintained [facility] 12-30-2021 Functional Status 1 flight [facility] Mental Status Date Assessment Result Facility 07-12-2025 Mental Status Orientation Oriented x 4 [facility] 07-12-2025 Mental Status [facility] 06-14-2024 Mental Status Orientation Oriented x 4 [facility] 06-14-2024 Mental Status [facility] Hospital Clinical Notes 04-20-2018 to 07-12-2025 Note [...] upper back pain Trouble controlling your muscles [phone] [employer]. [address] [place] [address]. All rights reserved. This information is not intended as a substitute for professional medical care. Always follow your healthcare professional's instructions. Follow Up Care 07/12/2025 09:18:39 With:Go to emergency room if symptoms worsen Address:Unknown When:2-4 days With:JLUIS NICHOLE DO Address: [address] [facility] [place] [phone] When:2-4 days [facility] 07-12-2025 Note Discharge Instructions Thank you for allowing [facility] to assist you with your healthcare needs. The following is important discharge information regarding your hospital visit. Diagnosis from Today's Visit Hyperkalemia What to Do Next Instructions from Your Care Team Potassium today was 5.2 on check here. Recommended to resume home Lokelma and to call rail filler for further outpatient management and following of potassium levels. Return to the emergency department for any acute concerns. No qualifying data available. Post Acute Orders No qualifying data available. You Need to Schedule the Following Appointments Follow Up with Go to emergency room if symptoms worsen When:Within 2-4 days Follow Up with JLUIS NICHOLE DO When:Within 2-4 days Where:[address] [place] [address] [place] [phone] Allergies NKA Medications Please ask your primary [...] upper back pain Trouble controlling your muscles [phone] [employer]. [address] [place] [address], [place] [address]. All rights reserved. This information is not intended as a substitute for professional medical care. Always follow your healthcare professional's instructions. Additional Information VACCINATE! IT SAVES LIVES! Members of the community who have not yet received the COVID-19 vaccine and would like to receive it can visit one of [facility] vaccine clinics. There are many vaccine clinic locations within the [facility]. For locations and available times, please visit www.gettheshot.coronavirus.[place]. gov/. It is important to note that some COVID mobile vaccine clinics are held outdoors and may be canceled in rainy or stormy conditions. To learn more about pediatric vaccinations (ages 5-11), we invite you to visit the [facility] webpage. https://www.akEVRSTs.org/p ages/1106-Aayjb-Cndrbzkxskr-Freq qsidmz-Pffcb-Avfsnclhk.html To learn more about the COVID-19 vaccine, we invite you to visit the CDC website for a list of frequently asked questions. https://www.cdc.gov/coronavirus/ 2019-ncov/vaccines/faq.html [facility] Patient Portal Access Instructions: Stay connected with your healthcare team and access your personal medical information anytime with the [facility] Patient Portal. If you would like a full copy of your medical records please contact the [facility] Medical Records Department Wednesday through Wednesday between 8a.m. and 4:30p.m. Please follow the directions below to access the portal: 1.Access the email account you provided upon registration to the hospital.2.Look for an invitation email from [facility].3.Open the email and access the invitation link: Accept Invitation to [facility]4.Fill in the required liriano to create your account. To access your account, visit [email or web address] or scan the QR code above. Click the blue button labeled [...] you will allow to register on the [facility] Patient Portal for access to your information. You can also access the [facility] Patient Portal on the [employer] josee. Simply click on "Health Records" under "Health Data" and then click on the ActualMeds logo. HOW TO SAFELY DISPOSE OF PRESCRIPTION [...] Call your local pharmacy or go to [email or web address]/[email or web address] to find one close to you.3.Make use of household items: Use cat litter or old coffee grounds to dispose medications if other options are not available. Mix your drugs with these household products, seal them in an airtight container and throw it into the garbage. Call [facility]: [phone] to be sure your drugs can be [...] aware that I should contact my doctor. Patient/Library Director Signature: Date/Time: Relationship to Patient: Witness Name/Signature: Date/Time: [facility] 07-06-2025 Note . MICRO - Microbiology [...] Locations *1: This test was performed at: [facility], [address] [place] [address], [facility] , [facility] 07-05-2025 Note Exam Date Time Procedure Performing Provider Status 07/05/25 9:[address] Head or Brain w/o Contrast LAYNE NAYAK MD; Auth (Verified) [id number] ORIGINAL EXAMINATION: CT HEAD TECHNIQUE: Axial CT [...] 4:57:02 PM Ordering Provider: JLUIS NICHOLE RP [facility]10-15-2025 Note* Exam Date Time Procedure Performing Provider Status 07/04/25 4:05 PM XR Humerus Minimum 2 Views Right LILIANA HENAO DO; Auth (Verified) [id number] ORIGINAL EXAMINATION: TWO XRAY VIEWS OF THE [...] 5:10:20 PM Ordering Provider: JLUIS NICHOLE RP [facility]10-15-2025 Note* Exam Date Time Procedure Performing Provider Status 07/04/25 4:02 PM XR Chest 2 Views JAIRO ROBERTSON DO; Auth (Verified) [id number] ORIGINAL EXAMINATION: TWO XRAY VIEWS OF THE [...] 4:38:56 PM Ordering Provider: JLUIS NICHOLE RP [facility]09-22-2025 [facility] [address] [place] [address], [address] [place] [address] OFFICE VISIT Date of Service: 06/11/25 MR#: [id number] Acct: [id number] Name: EKATERINA RANDHAWA Rep #: [id number] : 1940 Provider: Dr. Cora Doss MD Age/Sex: 85/M Location: [facility].BN Status: Signed HPI HPI Chief Complaint: Details: [...] this began during his hospitalization for his MT/CABG and may have been procedure related). 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: Yes Coding Level of Care Code Off vis,est,level 4 Diagnoses Parkinsonism, unspecified Parkinsonism type G20 Parkinsonism type: unspecified Mild cognitive impairment G31.84 Polyneuropathy G62.9 Restless legs syndrome G25.81 06/13/25 1511 ur MD> Date _ Braxton Doss MD Cosigner Signature: Date (if applicable) CC: ~ [facility]09-22-2025 Progress note Author Braxton Doss [facility] Note Date/Time June 11, 2025 2:41pm [facility] [address] [place] [address], [place] [address] OFFICE VISIT Date of Service: 06/11/25 MR#: [id number] Acct: [id number] Name: EKATERINA RANDHAWA Rep #: [id number] : 1940 Provider: Dr. Cora Doss MD Age/Sex: 85/M Location: [facility].BN Status: Signed HPI [facility] Chief Complaint: Details: Interim History: Ekaterina returns [...] this began during his hospitalization for his MT/CABG and may have been procedure related). 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 Essential hypertension Atherosclerotic heart disease of [place] coronary artery without angina pectoris Postoperative atrial [...] rarely substance use type: does not use arelis/rastafari: Riparius seatbelt use: always Clinical Quality Measures Falls Risk Screening/Assistive Devices Have you fallen in the past year?: Yes Coding Level of Care Code Off vis,est,level 4 Diagnoses Parkinsonism, unspecified Parkinsonism type G20 Parkinsonism type: unspecified Mild cognitive impairment G31.84 Polyneuropathy G62.9 Restless legs syndrome G25.81 06/13/25 1511 <Electronically signed by Braxton light MD> Date _ Braxton Simeonigner Signature: Date (if applicable) CC: ~ [facility] Work Phone: 1(591) 474-850808-08-2025 Radiology Diagnostic study note [facility] Imaging Services [address] [place], [place] [address] Kidney and Bladder MR#: [id number] Acct: [id number] Name: EKATERINA RANDHAWA Rep #: [id number] : 1940 M 85 From: Joesph Leon MD PCP: Dr. Jluis Nichole DO Status: REG CLI Study:Kidney and Bladder Date of Exam: 0 04/26/25 Exam# [id number] Ordering Dr: Seth Bass DO PROCEDURE: KIDNEY AND BLADDER 04/26/2025 REASON FOR EXAM: HYPERKALEMIA TECHNIQUE: KIDNEY AND BLADDER COMPARISON: None FINDINGS: Kidneys: Normal renal sizes, parenchymal thicknesses, and echotextures. [place]: No evidence of hydronephrosis. Cysts or Masses: [...] Bladder IMPRESSION: NORMAL RENAL ULTRASOUND. Reading Location: [id number] CC: Dr. Porsha Bass DO; Dr. Jluis Nichole DO ~ Crust Sorter: Signed [facility]07-09-2025 Evaluation note* Diagnosis Onset Date Resolution Status Admit Date Restless legs syndrome acute Ju ly 2024 9:39am Mild cognitive impairment chronic March 28, 2025 9:39am Parkinsonism chronic March 28 9:39am Polyneuropathy inactive March 28, 2025 9:39am Restless legs syndrome acute Se ptember 2024 1:49pm Mild cognitive impairment chronic June 11, 2025 1:49pm Parkinsonism chronic June 112024 1:49pm Polyneuropathy inactive June 11, 2025 1:49pm [facility] Work Phone: 1(895) 387-786106-05-2025 Hospital Discharge instructions Patient Education 02/22/2025 18:52:22 [...] for life. Yourdoctor can tell you more. 8068-8411 [employer]. [address] [place] [address], [place] [address]. All rights reserved. This information is not intended as a substitute for professional medical care. Always follow yourhealthcare professional's instructions. 02/22/2025 18:52:13 Renal Insufficiency Renal [...] vessels (vasculitis) Viral or bacterial infection Some mohg-xox-xfjyqqg (OTC) pain medicines can cause renal failure [...] help you quit. For more information, visit: [facility] Medical[employer].gov/sites/default/files/pdf/grdfcsre-rgq-wdp-accessible.pdf owww.smokefree.gov owww.cancer.org/healthy/stayawayfromtobacco/guidetoquittingsmoking/ Talk with your healthcare provider [...] one of the following for more information: [place] Association of Kidney Patients, www.aakp.org National Kidney Foundation, www.kidney.org [place] Kidney Fund, www.kidneyfund.org National Kidney Disease Education [...] or you aren t able to urinate 8346-9099 [employer]. [address] [place] [address], [place] [address]. All rights reserved. This information is not [...] as systemic lupus erythematosus, sickle cell, or Gall[place] disease How is this test done? The [...] if you are taking any medicine, including dxfo-wqj-vpprhol NSAIDs. Be sure your healthcare provider knows about all medicines, herbs, vitamins, and supplements you are taking. This includes medicines that don't need a prescription and any illicit drugs you may use. 6411-7723 [employer]. [address] [place] [address]. All rights reserved. This information is not intended as a substitute for professional medical care. Always follow yourhealthcare professional's instructions. Follow Up Care 02/22/2025 17:19:54 With:Your rail filler Address:Unknown When:2-4 days Comments:Schedule appointment as soon as possibleReturn to ED if symptoms worsenCall in the morning for follow-up laboratory studies can return to the ER for any developing symptoms With:JLUIS NICHOLE Address: [address] [place] [address] [phone] Business (1) When:2-4 days [facility] 06-05-2025 Emergency department Discharge summary Discharge Instructions Thank you for allowing [facility] to assist you with your healthcare needs. The following is importantdischarge information regarding your hospital visit. What to Do Next Instructions from Your Care Team No qualifying data available. Post Acute Orders No qualifying data available. You Need to Schedule the Following Appointments Follow Up with Your rail filler When:Within 2-4 days Additional Information: Schedule appointment as soon as possible Return to ED if symptoms worsen Call in the morning for follow-up laboratory studies can return to the ER for any developing symptoms Follow Up with JLUIS NICHOLE When:Within 2-4 days Where:[address] [place] [address] [phone] Business (1) Allergies NKA Medications Please ask [...] for life. Yourdoctor can tell you more. [phone] [employer]. [address] [place] [address], [place] [id number]. All rights reserved. This information is not [...] vessels (vasculitis) Viral or bacterial infection Some ilvk-cfc-rzdrpvj (OTC) pain medicines can cause renal failure [...] help you quit. For more information, visit: [employer] Medicalfr[employer] Corporation.gov/sites/default/files/pdf/sphnwvsh-vge-ujy-accessible.pdf owww.smokefree.gov owww.cancer.org/healthy/stayawayfromtobacco/guidetoquittingsmoking/ Talk with your healthcare provider [...] one of the following for more information: [place] Association of Kidney Patients, www.aakp.org National Kidney Foundation, www.kidney.org [place] Kidney Fund, www.kidneyfund.org National Kidney Disease Education [...] or you aren t able to urinate 5144-9206 [employer]. [address] [place] [address]. All rights reserved. This information is not [...] as systemic lupus erythematosus, sickle cell, or Gallatin disease How is this test done? The [...] if you are taking any medicine, including hieb-evo-fccscby NSAIDs. Be sure your healthcare provider knows about all medicines, herbs, vitamins, and supplements you are taking. This includes medicines that don't need a prescription and any illicit drugs you may use. [phone] [employer]. [address] [place] [address]. All rights reserved. This information is not intended as a substitute for professional medical care. Always follow yourhealthcare professional's instructions. Additional Information VACCINATE! IT SAVES LIVES! Members of the community who have not yet received the COVID-19 vaccine and would like to receive it can visit one of [facility] vaccine clinics. There are many vaccine clinic locations within the [facility]. For locations and available times, please visit www.gettheshot.coronavirus.[place].gov/. It is important to note that some COVID mobile vaccine clinics are held outdoors and may be canceled in rainy or stormy conditions. To learn more about pediatric vaccinations (ages 5-11), we invite you to visit the [facility] webpage. https://www.[facility].org/pages/2056-Cboxg-Ssliwhkoxmu-Jfbkqbjszo-Aebfk-Mxq stions.htmlTo learn more about the COVID-19 vaccine, we invite you to visit the CDC website for a list of frequently asked questions. https://www.cdc.gov/coronavirus/2019-ncov/vaccines/faq.html [facility] Patient Portal Access Instructions: Stay connected with your healthcare team and access your personal medical information anytime with the [facility] Patient Portal. If you would like a full copy of your medical records please contact the [facility] Medical Records Department Wednesday through Wednesday between 8a.m. and 4:30p.m. Please follow the directions below to access the portal: 1.Access the email account you provided upon [facility].2.Look for an invitation email from [facility].3.Open the email and access the invitation link: Accept Invitation to [facility]4.Fill in the required liriano to create your account. Sign into [email or web address] with your username and password that you [...] you will allow to register on the [facility] Patient Portal for access to your information. You can also access the [facility] Patient Portal on the WebChalet josee. Simply click on "Health Records" under "HealthData" and then click on the ActualMeds logo. HOW TO SAFELY DISPOSE OF PRESCRIPTION [...] Call your local pharmacy or go to http://bit.Tricida/6Q4Nt8h to find one close to you.3.Make use of household items: Use cat litter or old coffee grounds to dispose medications if other options arenot available. Mix your drugs with these household products, seal them in an airtight container andthrow it into the garbage. Call [facility]: [phone] to be sure your drugs can be [...] aware that I should contact my doctor. Patient/Library Director Signature: Date/Time: Relationship to Patient: Witness Name/Signature: Date/Time: [facility]06-05-2025 Note Discharge Instructions Thank you for allowing [facility] to assist you with your healthcare needs. The following is importantdischarge information regarding your hospital visit. What to Do Next Instructions from Your Care Team No qualifying data available. Post Acute Orders No qualifying data available. You Need to Schedule the Following Appointments Follow Up with Your rail filler When:Within 2-4 days Additional Information: Schedule appointment as soon as possible Return to ED if symptoms worsen Call in the morning for follow-up laboratory studies can return to the ER for any developing symptoms Follow Up with JLUIS NICHOLE When:Within 2-4 days Where:[address] [facility] [place] [phone] Business (1) Allergies NKA Medications Please ask [...] for life. Yourdoctor can tell you more. [phone] [employer]. [address] [place] [address], [place] [address]. All rights reserved. This information is not [...] vessels (vasculitis) Viral or bacterial infection Some bcku-njg-xxwzvns (OTC) pain medicines can cause renal failure [...] help you quit. For more information, visit: osmokefree.gov/sites/default/files/pdf/jldjaxev-uer-vmy-accessible.pdf owww.smokefree.gov owww.cancer.org/healthy/stayawayfromtobacco/guidetoquittingsmoking/ Talk with your healthcare provider [...] one of the following for more information: [place] Association of Kidney Patients, www.aakp.org National Kidney Foundation, www.kidney.org [place] Kidney Fund, www.kidneyfund.org National Kidney Disease Education [...] or you aren t able to urinate 5208-2475 [employer]. [address] [place] [address]. All rights reserved. This information is not [...] if you are taking any medicine, including sgei-twc-uyjmmag NSAIDs. Be sure your healthcare provider knows about all medicines, herbs, vitamins, and supplements you are taking. This includes medicines that don't need a prescription and any illicit drugs you may use. 6120-3088 [employer]. [address] [place] [address], [place] [address]. All rights reserved. This information is not intended as a substitute for professional medical care. Always follow yourhealthcare professional's instructions. Additional Information VACCINATE! IT SAVES LIVES! Members of the community who have not yet received the COVID-19 vaccine and would like to receive it can visit one of [facility] vaccine clinics. There are many vaccine clinic locations within the [facility]. For locations and available times, please visit www.gettheshot.coronavirus.[place].gov/. It is important to note that some COVID mobile vaccine clinics are held outdoors and may be canceled in rainy or stormy conditions. To learn more about pediatric vaccinations (ages 5-11), we invite you to visit the [facility] webpage. https://www.[facility].org/pages/0555-Jbhey-Nnaofgmhbma-Sgbhvacbek-Xfbso-Okv stions.htmlTo learn more about the COVID-19 vaccine, we invite you to visit the CDC website for a list of frequently asked questions. https://www.cdc.gov/coronavirus/2019-ncov/vaccines/faq.html [facility] Patient Portal Access Instructions: Stay connected with your healthcare team and access your personal medical information anytime with the [facility] Patient Portal. If you would like a full copy of your medical records please contact the [facility] Medical Records Department Wednesday through Wednesday between 8a.m. and 4:30p.m. Please follow the directions below to access the portal: 1.Access the email account you provided [facility].2.Look for an invitation email from [facility].3.Open the email and access the invitation link: Accept Invitation to [facility]4.Fill in the required liriano to create your account. Sign into [email or web address] with your username and password that you [...] you will allow to register on the [facility] Patient Portal for access to your information. You can also access the [facility] Patient Portal on the WebChalet josee. Simply click on "Health Records" under "HealthDaSequence" and then click on the ActualMeds logo. HOW TO SAFELY DISPOSE OF PRESCRIPTION [...] Call your local pharmacy or go to http://Splinter.me.Tricida/2R7Ji8d to find one close to you.3.Make use of household items: Use cat litter or old coffee grounds to dispose medications if other options arenot available. Mix your drugs with these household products, seal them in an airtight container andthrow it into the garbage. Call [facility]: [phone] to be sure your drugs can be [...] aware that I should contact my doctor. Patient/Library Director Signature: Date/Time: Relationship to Patient: Witness Name/Signature: Date/Time: [facility]06-05-2025 Note* Exam Date Time Procedure Performing Provider Status 02/22/25 5:31 PM EKG [ED AOH] - CV DAVID LAST MD; [facility] (Verified) ECG Final Report Sinus rhythm RBBB and LAFB SEE DICTATION Electronic Signature: DAVID LAST MD 02/22/2025 17:49:20 [facility]05-30-2025 Evaluation note* Diagnosis Onset Date Resolution Status Admit Date Cardiac murmur acute February 16, 2025 3:33pm Essential hypertension chronic Ma y 2024 3:33pm Hyperlipidemia chronic February 16, 2025 3:33pm Ischemic cardiomyopathy chronic M ay 2024 3:33pm Paroxysmal atrial fibrillation chron ic February 16, 2025 3:33pm 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, chronic February 16, 2025 3 :33pm Restless legs syndrome acute Ju ly 2024 9:39am Mild cognitive impairment chronic March 28, 2025 9:39am Parkinsonism chronic March 28 9:39am Polyneuropathy inactive March 28, 2025 9:39am [facility] Work Phone: 1(380) 388-429803-12-2025 Evaluation note* Diagnosis Onset Date Resolution Status Admit Date Restless legs syndrome acute [facility] 2024 9:45am Mild cognitive impairment chronic November 29, 2024 9:45am Parkinsonism chronic November 29, 2024 9:45am Polyneuropathy inactive November 9:45am Cardiac murmur acute February 16, 2025 3:33pm Essential hypertension chronic Ma y 2024 3:33pm Hyperlipidemia chronic February 16, 2025 3:33pm Ischemic cardiomyopathy chronic M ay 2024 3:33pm Paroxysmal atrial fibrillation chron ic February 16, 2025 3:33pm 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, chronic February 16, 2025 3 :33pm Restless legs syndrome acute Ju ly 2024 9:39am Mild cognitive impairment chronic March 28, 2025 9:39am Parkinsonism chronic March 28 9:39am Polyneuropathy inactive March 28, 2025 9:39am [facility] Work Phone: 1(985) 463-262902-27-2025 Evaluation note* Diagnosis Onset Date Resolution Status Admit Date Contusion of right foot acute F ebruary 2024 10:14am Restless legs syndrome acute [facility] 2024 9:45am Mild cognitive impairment chronic November 29, 2024 9:45am Parkinsonism chronic November 29, 2024 9:45am Polyneuropathy inactive November 9:45am [facility] Work Phone: 1(607) 873-784302-27-2025 Evaluation note* Diagnosis Onset Date Resolution Status Admit Date Contusion of right foot acute F ebruary 2024 10:14am Restless legs syndrome acute [facility] 2024 9:45am Mild cognitive impairment chronic November 29, 2024 9:45am Parkinsonism chronic November 29, 2024 9:45am Polyneuropathy inactive November 9:45am Essential hypertension chronic Ma y 2024 3:33pm Hyperlipidemia chronic February 16, 2025 3:33pm Ischemic cardiomyopathy chronic M ay 2024 3:33pm Paroxysmal atrial fibrillation chronic February 16, 2025 3 :33pm 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 Author [...] which included preparing to see the patient, slqw-rx-celt patient care, completing clinical documentation, obtaining and/or reviewing separately obtained history, counseling and educating the patient/family/caregiver, ordering medications, tests, or procedures, independently interpreting results (not separately reported), and communicating results to the patient/family/caregiver. Electronically Signed: Toney Gutierrez MD September 12, 2024 10:42 [facility]12-24-2024 History of Present illness Narrative* Toney [...] which included preparing to see the patient, sunr-ax-yrbr patient care, completing clinical documentation, obtaining and/or reviewing separately obtained history, counseling and educating the patient/family/caregiver, ordering medications, xenia ts, or procedures, independently interpreting results (not separately reported), and communicating results to the patient/family/caregiver. Electronically Signed: Toney Gutierrez MD September 12, 2024 10:42 AM [facility] Hospital Discharge instructions Patient Education 06/14/2024 [...] some information about medicine: You may use wzfa-bqb-brxxrlt medicine such as acetaminophen or ibuprofen to [...] re-open Bleeding not controlled by direct pressure 4915-[address] [employer]. [address] [place] [address]. All rights reserved. This information is not intended as a substitute for professional medical care. Always follow [facility] professional's instructions. 06/14/2024 11:49:04 Wound Check (No [...] oRed streaks around the wound oDraining pus 5500-1946 [employer] [address] [place] [address]. All rights reserved. This information is not intended as a substitute for professional medical care. Always follow yourhealthcare professional's instructions. Follow Up Care 06/14/2024 11:11:49 With:Go to emergency room if symptoms worsen Address: When:3-7 days With:JLUIS NICHOLE DO Address: [address] [place] [address] Physicians [place], [place] [phone] When:2-4 days [facility] 09-25-2024 Note Discharge Instructions Thank you for allowing [facility] to assist you with your healthcare needs. [...] JLUIS NICHOLE DO When:Within 2-4 days Where:0 [facility] [place] [address]- [phone] Allergies NKA Medications Please ask your primary [...] some information about medicine: You may use qzkx-big-boluryj medicine such as acetaminophen or ibuprofen to [...] re-open Bleeding not controlled by direct pressure 4892-[address] [employer] [address] [place] [address], [place] [address]. All rights reserved. This information is not [...] oRed streaks around the wound oDraining pus 4973-[address] [employer]. [address] [place] [address]. All rights reserved. This information is not intended as a substitute for professional medical care. Always follow yourhealthcare professional's instructions. Additional Information VACCINATE! IT SAVES LIVES! Members of the community who have not yet received the COVID-19 vaccine and would like to receive it can visit one of [facility] vaccine clinics. There are many vaccine clinic locations within the [facility]. For locations and available times, please visit www.[email or web address].gov/. It is important to note that some COVID mobile vaccine clinics are held outdoors and may be canceled in rainy or stormy conditions. To learn more about pediatric vaccinations (ages 5-11), we invite you to visit the [facility] webpage. https://www.[email or web address].org/pages/[email or web address]-Srzlv-Abcvtyycfoa-Lqsjekglke-Rjtfo-Eok stions.htmlTo learn more about the COVID-19 vaccine, we invite you to visit the CDC website for a list of frequently asked questions. https://www.cdc.gov/coronavirus/2019-ncov/vaccines/faq.html [facility] [employer] Patient Portal Access Instructions: Stay connected with your healthcare team and access your personal medical information anytime with the [facility] [employer] Patient Portal. If you would like a full copy of your medical records please contact the [facility] Medical Records Department Wednesday through Wednesday between 8a.m. and 4:30p.m. Please follow the directions below to access the portal: 1.Access the email account you provided upon registration to the hospital.2.Look for an invitation email from [facility].3.Open the email and access the invitation link: Accept Invitation to [facility]4.Fill in the required liriano to create your account. Sign into [email or web address] with your username and password that you [...] you will allow to register on the [facility] [employer] Patient Portal for access to your information. You can also access the [facility] Patient Portal on the [employer]. Simply click on "Health Records" under "[facility]" and then click on the [employer] logo. [...] Call your local pharmacy or go to [email or web address] to find one close to you.3.Make use of household items: Use cat litter or old coffee grounds to dispose medications if other options arenot available. Mix your drugs with these household products, seal them in an airtight container andthrow it into the garbage. Call [facility]: [phone] to be sure your drugs can be [...] aware that I should contact my doctor. 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, chronic Mild cognitive impairment ac [place] Polyneuropathy acute Parkinson's disease noneacti [facility] Work Phone: Evaluation + Plan note Future Appointments Appointment Date:12/15/2021 09:30:00 AM Scheduled Provider:LAYNE DOHERTY DO Location:[facility] Appointment Type:PC OV Future Scheduled Tests Laboratory* Basic Metabolic Panel 05/08/21 * Vancomycin Level Trough - Panel 05/08/21 [facility] Evaluation + Plan note Future Appointments Appointment Date:01/20/2022 10:00:00 AM Scheduled Provider: Location:[facility] Appointment Type:PT Treatment - [place] Appointment Date:01/22/2022 10:00:00 AM Scheduled Provider: Location:[facility] Appointment Type:PT Treatment - [place] Appointment Date:01/27/2022 10:00:00 AM Scheduled Provider: Location:[facility] Appointment Type:PT Treatment - [place] Appointment Date:01/30/2022 10:00:00 AM Scheduled Provider: Location:[facility] Appointment Type:PT Treatment - [place] Appointment Date:06/18/2022 09:00:00 AM Scheduled Provider:LAYNE DOHERTY DO Location:[facility] Appointment Type:PC Wellness Medicare with Labs [facility] Evaluation + Plan note Future Appointments Appointment Date:04/16/2022 07:30:00 AM Scheduled Provider:LAYNE DOHERTY DO Location:[facility] Appointment Type:PC OV Appointment Date:06/18/2022 09:00:00 AM Scheduled Provider:LAYNE DOHERTY DO Location:[facility] Appointment Type:PC Wellness Medicare with Labs [facility] Evaluation + Plan note Future Appointments Appointment Date:06/18/2022 09:00:00 AM Scheduled Provider:LAYNE DOHERTY DO Location:[facility] Appointment Type:PC Wellness Medicare with Labs Appointment Date:08/18/2022 07:30:00 AM Scheduled Provider:LAYNE DOHERTY DO Location:[facility] Appointment Type:PC OV [facility] Evaluation + Plan note Future Appointments Appointment Date:09/21/2022 09:00:00 AM Scheduled Provider:LAYNE DOHERTY DO Location: [facility] Appointment Type:PC OV Appointment Date:10/07/2022 09:00:00 AM Scheduled Provider:JLUIS NICHOLE DO Location:[facility] Appointment Type:PC [facility] Evaluation + Plan note Future Appointments Appointment Date:11/09/2022 02:00:00 PM Scheduled Provider: Location:[facility] Appointment Type:VL AOH - Venous US/Doppler Both Legs (fo Appointment Date:06/22/2023 09:00:00 AM Scheduled Provider:JLUIS NICHOLE DO Location:[facility] Appointment Type:PC Wellness Medicare Future Scheduled Tests Laboratory* Stool for Occult Blood (Lab) 10/11/22 [facility] Evaluation + Plan note Future Appointments Appointment Date:07/18/2024 09:00:00 AM Scheduled Provider:JLUIS NICHOLE DO Location:[facility] Appointment Type:PC Wellness Medicare [facility] Evaluation + Plan note Future Appointments Appointment Date:06/21/2024 09:00:00 AM Scheduled Provider:MARTIR WEBB Location:[facility] Appointment Type:PC OV ED Follow Up Appointment Date:07/18/2024 09:00:00 AM Scheduled Provider:JLUIS NICHOLE DO Location:[facility] Appointment Type:PC Wellness Medicare [facility] Evaluation + Plan note Future Appointments Appointment Date:08/11/2024 10:00:00 AM Scheduled Provider:JLUIS NICHOLE DO Location:[facility] Appointment Type:PC Wellness Medicare [facility] Evaluation + Plan note Future Appointments Appointment Date:02/08/2025 10:00:00 AM Scheduled Provider:JLUIS NICHOLE DO Location:[facility] Appointment Type:PC OV [facility] Evaluation + Plan note Future Appointments Appointment Date:05/23/2025 10:00:00 AM Scheduled Provider:JLUIS NICHOLE DO Location:[facility] Appointment Type:[facility] Future Scheduled Tests Laboratory* Basic Metabolic Panel 02/22/25 * N-Terminal proBNP 02/21/25 [facility] Evaluation + Plan note Future Appointments Appointment Date:07/05/2025 10:00:00 AM Scheduled Provider: Location:[facility] Appointment Type:CT Head or Brain w/o Contrast Appointment Date:09/05/2025 02:00:00 PM Scheduled Provider:JLUIS NICHOLE DO Location:[facility] Appointment Type:PC Wellness Medicare Future Scheduled Tests Radiology* CT Head or Brain w/o Contrast 07/05/25 * XR Chest 2 Views (PA & Lateral) 07/04/25 [facility] Evaluation + Plan note Future Appointments Appointment Date:09/05/2025 02:00:00 PM Scheduled Provider:JLUIS NICHOLE DO Location:[facility] Appointment Type:PC Wellness Medicare Future Scheduled Tests Laboratory* Potassium Level 07/08/25 Radiology* XR Chest 2 Views (PA & Lateral) 07/04/25 [facility] Evaluation note* Diagnosis Onset Date Resolution Status Atherosclerotic heart diseas e of [place] coronary artery without angina pectoris chronic Essential hypertension chron ic Hyperlipidemia chronic 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 Paroxysmal atrial fibrillation [facility] Work Phone: Evaluation note* Diagnosis Onset Date Resolution Status Atherosclerotic heart diseas e of [place] coronary artery without angina pectoris chronic Essential hypertension chron ic Hyperlipidemia chronic 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 Paroxysmal atrial fibrillation chronic Mild cognitive impairment ac [place] Polyneuropathy acute Parkinson's disease noneacti ve [facility] Work Phone: Evaluation note* Diagnosis Thrombocytopenia (HCC)- Primary Thrombocytopenia, unspecified Anemia, unspecified type [facility] Narrative No data available for this section [facility] Hospital Discharge instructions No data available for this section [facility] Progress note No data available for this section [facility] Reason for referral (narrative)No reason for referral information availableW[facility] Work Phone: Summary Purpose Family History No Family History Records Found Relationship Condition Age at Onset Recorded Date/T gwyn father Myocardial infarction Unknown Advance Directives No Advanced Directives Records Found Advance Directive Response Recorded Date/ Time Living Will Yes March 22, 2019 1 0:10am Power of Mdm Sr Yes March 22, 2019 10:10am Advance Directive Response Recorded Date/ Time Living Will Yes March 22, 2019 1 0:10am Do you have a Healthcare Power of Mdm Sr? Yes March 22, 2019 10:10am Chief Complaint and Reason for Visit Chief Complaint ATAXIA 6 M FU Reason for Visit Atherosclerotic hear t disease of [place] coronary artery without angina pectoris Essential hypertension Hyperlipidemia Ischemic cardiomyopathy Paroxysmal atrial fibrillation Chief Complaint 6 m fu Parkinson's disease EORDER Reason for Visit Atherosclerotic hear t disease of [place] coronary artery without angina pectoris Essential hypertension Hyperlipidemia Ischemic cardiomyopathy Paroxysmal atrial fibrillation Mild cognitive impairment Polyneuropathy Parkinson's disease Chief Complaint 6 m fu Parkinson's disease EORDER PARKINSONS Reason for Visit Atherosclerotic hear t disease of [place] coronary artery without angina pectoris Essential hypertension [...] Date Contusion of right foot November 16, 025 10:14am Restless legs syndrome November 29, [...] section and content) DATE CREATED AUTHOR 06/01/2018 [facility] DATE CREATED AUTHOR AUTHOR'S ORGANIZ ATION 02/22/2024 [facility] DATE CREATED AUTHOR AUTHOR'S ORGANIZ ATION 06/09/2025 [facility] DATE CREATED AUTHOR AUTHOR'S ORGANIZ ATION 07/16/2025 [facility] DATE CREATED AUTHOR AUTHOR'S ORGANIZ ATION 07/27/2025 [facility] DATE CREATED AUTHOR AUTHOR'S ORGANIZ ATION 08/03/2025 [facility] Care Team (unrecognized sect ion and content) Team Status: Active Member Role Status Dates Dr. Layne Doherty DO Family Provider Active Dr. Layne Doherty DO Primary Care Provider Active Team Status: Inactive Member Role Status Dates Dr. Layne Doherty DO Primary Care Provider, Referrin g Provider Active Maryuri Begum RUNNER MAN, RUNNER MAN-C Attending Provider Active Team Status: Inactive Member [...] Doherty DO Referring Provider Active Maryuri Begum RUNNER MAN, RUNNER MAN-C Attending Provider Active Dr. Jluis Nichole DO Primary Care Provider Active Team Status: Inactive Member Role Status Dates Dr. Layne Doherty DO Referring Provider Active Dr. Braxton Doss MD Attending Provider Active Dr. Jluis Nichole DO Primary Care Provider Active Team Status: Inactive Member Role Status Dates Dr. Jluis Nichole DO Primary Care Provider Active Dr. Braxton Doss MD Attending Provider Active Police Records Clerk Relationship Specialty Start Date End Date Jluis Nichole DO [address] [place] [address] PCP - General Family Medicine 09/12/24 Adonis Joaquin MD [address] [place] [address] Primary Staff Physician Cardiology 12/06/18 Team Status: [...] 2025 End: February 08, 2025 Maryuri Begum RUNNER MAN, RUNNER MAN-C Attending Provider Active S tart: February 08, 2025 End: February 08, 2025 Maryuri Begum RUNNER MAN, RUNNER MAN-C Referring Provider Active S tart: February 08, [...] 2025 End: February 08, 2025 Maryuri Begum RUNNER MAN, RUNNER MAN-C Attending Provider Active S tart: February 08, 2025 End: February 08, 2025 Maryuri Begum RUNNER MAN, RUNNER MAN-C Referring Provider Active S tart: February 08, [...] March 28, 2025 End: March 28, 2025 Sharon Parsons NP-C Attending Provider Active S tart: March 28, 2025 End: March 28, 2025 Team Status: Inactive Member Role/Relationship Status Dates Dr. Jluis Nichole DO Primary Care Provider Active Start: February 08, 2025 End: February 08, 2025 Maryuri Begum RUNNER MAN, RUNNER MAN-C Attending Provider Active S tart: February 08, 2025 End: February 08, 2025 Maryuri Begum RUNNER MAN, RUNNER MAN-C Referring Provider Active S tart: February 08, 2025 End: February 08, 2025 Team Status: Inactive Member Role/Relationship Status Dates Dr. Jluis Nichole DO Primary Care Provider Active Start: February 16, 2025 End: February 16, 2025 Dr. Jluis Nichloe DO Referring Provider Active St art: February 16, 2025 End: February 16, 2025 Bailey CONTE PA Attending Provider Active Start: February 16, 2025 End: February 16, 2025 Team Status: Inactive Member Role/Relationship Status Dates Dr. Jluis Nichole DO Primary Care Provider Active Start: March 28, 2025 End: March 28, 2025 Dr. Jluis Nichole DO Referring Provider Active St art: March 28, 2025 End: March 28, 2025 Sharon Parsons NP-C Attending Provider Active S tart: March 28, 2025 End: March 28, 2025 Team Status: Inactive Member Role/Relationship Status Dates Dr. Jluis Nichole DO Primary Care Provider Active Start: March 28, 2025 End: March 28, 2025 Bailey CONTE PA Attending Provider Active Start: March 28, 2025 End: March 28, 2025 Bailey CONTE PA Referring Provider Active Start: March 28, [...] 2025 End: April 10, 2025 Sharon Parsons RUNNER MAN-C Attending Provider Active S tart: April 10, 2025 End: April 10, 2025 Sharon Parsons RUNNER MAN-C Referring Provider Active S tart: April 10, 2025 End: April 10, 2025 Dr. Porsha Bass , Other Provider Active Sta rt: April 10, [...] Active Member Role/Relationship Status Dates Dr. Jluis Nichloe DO Primary care physician Active Team Status: [...] 28, 2025 End: March 28, 2025 Bailey CONTE PA Attending physician Active Start: March 28, 2025 End: March 28, 2025 Bailey CONTE PA Referring Provider Active Start: March 28, [...] End: April 10, 2025 OBIE Fernández Attending physician Active Start: April 10, 2025 [...] Attending physician Active Start: April 10, 2025 OBIE Fernández Referring Provider [...] content) Care Team Personnel Name: Ashley Corea PT Position: P3 Scheduling - Prospect Manager Advanced Member Role: Other Name: LAYNE DOHERTY DO Position: P4 Physician - Primary Care Med Service: Active Provider Member Role: Primary Care Physician Address: Address: [address] [place] [address] [place] [address]- Care Team Related Persons Name: EDISDEBI WEBER Address: Home [address], [place] [phone] [place] Care Team Personnel Name: Ashley Corea PT Position: P3 Scheduling - Prospect Manager Advanced Member Role: Other Name: LAYNE DOHERTY DO Position: P4 Physician - Primary Care Med Service: Active Provider Member Role: Primary Care Physician Address: Address: [address] [place] [phone] [place] [address] Care Team Related Persons Name: DEBI RANDHAWA Address: [place] [address] [place] [phone] Care Team Personnel Name: Ashley Corea Clerk Lynn PT Position: P3 Scheduling - Prospect Manager Advanced Member Role: Other Name: LAYNE DOHERTY DO Position: P4 Physician - Primary Care Member Role: Primary Care Physician Address: Address: [address] [place] [id number] [place] Care Team Related Persons Name: DEBI RANDHAWA Address: [address] [phone] Care Team Personnel Name: Ashley Corea Clerk Lynn PT Position: P3 Scheduling - Prospect Manager Advanced Member Role: Other Name: JLUIS NICHOLE DO Position: P4 Physician - Primary Care Member Role: Primary Care Physician Address: Address: [address] [place] [phone] [place] [address] Care Team Related Persons Name: DEBI RANDHAWA Address: [address] [phone] Care Team Personnel Name: Ashley Corea Clerk Lynn PT Position: P3 Scheduling - Prospect Manager Advanced Member Role: Other Name: JLUIS NICHOLE DO Position: P4 Physician - Primary Care Member Role: Primary Care Physician Address: Address: [address] [place] [address] Care Team Related Persons Name: DEBI RANDHAWA Address: [address] [phone] [place] Source Comments (unrecognize d section and content) In the event this informatio n is protected by the Federal Confidentiality of Alcohol and Drug Abuse Patient Records regulations: The Federal rules restrict any use of the information to criminally investigate or prosecute any alcohol or drug abuse patient.[facility] Reason for Visit (unrecogniz ed section [...] BE BASED ON THE PRIMARY CLINICAL RECORDS. [facility]. provides no warranty or guarantee of the accuracy or completeness of information in this document.
[2025-08-07 07:51] LABS: Potassium 4.7 mmol/L (3.3-5.1)
== END ==
LOC: OLS.WHLTSB 04:00
PROVIDERS: PCP Student in an Organized Health Care Education/Training Program; Referring Provider Internal Medicine; Visit Provider Internal Medicine
DX: E87.5 Hyperkalemia (principal)
CPT/HCPCS: 36415; 84132

== ENCOUNTER → 2025-08-14 | Outpatient (REF) | payer MEDICARE, OTHER, SELFPAY ==
--- OUTSIDE RECORDS SUMMARY | 2025-08-14 03:13 | XMS RPT_ITS | CCD ---
Author Organization [facility] Care Team Providers Care Wraparound Facilitator Name Role Phone ARTEM ACEVEDO Unavailable Unavailable [facility] Unavailable Unavailable [facility] Unavailable Unavailable LAYNE DOHERTY DO Primary Care Physician Anmol OLIVA, Lynn Unavailable Unavailable Dr. Layne Doherty Primary Care Provider Dr. Layne Doherty Referring Provider Dr. Satish Razo Attending Provider [phone] DAYANARA LEE, DR BAZZI Primary Care Physician [phone] Dr. Layne Doherty Primary Care Provider Dr. Layne Doherty Referring Provider Roof PROJECT CONTROL ANALYST, PROJECT CONTROL ANALYST-Mayra Murphy Attending Provider Dr. Braxton Doss Attending Provider Dr. Layne Doherty Referring Provider Roof PROJECT CONTROL ANALYST, PROJECT CONTROL ANALYST-C Maryuri Murphy Attending Provider Dr. Jluis Nichole [...] Romario ROMAN, Dr. Limon Attending Provider Shy PROJECT CONTROL ANALYST-C, Maryuri Murphy Attending Provider Shy PROJECT CONTROL ANALYST-C, Maryuri Murphy Referring Provider Bailey Salcedo Attending Provider Dayanara LEE, Dr. Bazzi Primary Care Provider Dayanara LEE, Dr. Bazzi Referring Provider [phone] Issa FARRIS-CSharon Attending Provider Dayanara LEE, Dr. Bazzi Primary Care Provider Dayanara LEE, Dr. Bazzi Referring Provider [phone] Bailey Salcedo Referring Provider Dr. Cheng Camarillo MD Attending Provider Issa FARRIS-CSharon Referring Provider [phone] Kali LEE, Dr. Story Other Provider Dr. [...] Attending Unavailable Romar, Jluis Primary Care Unavailable RomJluis staples Referring Unavailable [...] [Antibiotics] Propensity to adverse reactions 11-29-2024 C-diff [facility] Comment on above: Per patient [...] 0 Refill(s), 07/14/25 5:16:00 PM EDT, Pharmacy: [id number], 172, cm, 07/04/25 13:52:00 EDT, Height, [...] meds, # 100 tab(s), 1 Refill(s), Pharmacy: [facility] [address], 182.9, cm, 02/22/25 17:36:00 EDT, Height, kg, 02/22/25 17:36:00 EDT, Dosing Weight Start Date: 04/04/25 Stop Date: 10/21/25 Status: Ordered Medication Dispense Status: Completed Quantity: 100.0 Unit: tab(s) Total Allowed Fills: 2 Fills Dispensed: 0 Start: 09-21-2022 take 1 tablet by zach th once daily at bedtime atorvastatin 40 mg oral tablet 1 tab(s), Oral, qHS, # 90 tab(s), 1 Refill(s), Pharmacy: [facility]/pharmacy #4605, 175, cm, 09/21/22 8:31:00 EST, Height, [...] 0 Refill(s), 07/09/25 5:16:00 PM EDT, Pharmacy: [facility]/pharmacy #4605, 172, cm, 07/04/25 13:52:00 EDT, Height, [...] 0 Refill(s), 08/28/24 2:31:00 PM EST, Pharmacy: [facility]/pharmacy #4605, 172, cm, 08/11/24 10:00:00 EST, Height, [...] qDay, # 14 tab(s), 0 Refill(s), Pharmacy: [facility]/pharmacy #4605, 172.7, cm, 12/27/20 12:02:00 EDT, Height, [...] meds, # 100 tab(s), 1 Refill(s), Pharmacy: [facility] [address], 172, cm, 05/23/25 9:57:00 EDT, Height, kg, [...] CHEW, # 180 tab(s), 1 Refill(s), Pharmacy: [facility]/pharmacy #4605, 172, cm, 08/11/24 10:00:00 EST, Height, [...] CHEW, # 180 tab(s), 1 Refill(s), [facility], cm, 12/14/23 8:38:00 EDT, Height, kg, 12/14/23 8:38:00 EDT, Dosing Weight Start Date: 03/29/24 Status: Ordered Start: 12-31-2023 Metoprolol Suc cinate ER 100 mg oral TABLET extended release Dose : 100 mg = 1 tab(s), Oral, BID, TAKE 1 TABLET BY MOUTH TWICE A DAY DO NOT CRUSH OR CHEW, # 180 tab(s), 0 Refill(s), Pharmacy: [facility]/pharmacy #4605, 172, cm, 12/14/23 8:38:00 EDT, Height, [...] 55, # 180 tab(s), 1 Refill(s), [facility] 175, cm, 04/16/22 7:17:00 EDT, Height, kg, 04/16/22 7:17:... Start Date: 07/01/22 Status: Ordered Start: 11-11-2021 take 1 tablet by zach th twice daily Metoprolol Succinate ER 100 mg oral TABLET extended release See Instructions, TAKE 1 TABLET BY MOUTH TWICE A DAY FOR BLOOD PRESSURE. HOLD FOR SBP LESS THAN 110, HR LESS THAN 55, # 180 tab(s), 1 Refill(s), [facility] 175, cm, 06/16/21 8:33:00 EDT, Height, [...] meds, # 90 tab(s), 1 Refill(s), Pharmacy: [facility] [address], 182.9, cm, 02/22/25 17:36:00 EDT, Height, kg, [...] qDay, # 90 tab(s), 0 Refill(s), Pharmacy: [facility]/pharmacy #4605, 172, cm, 02/21/25 9:16:00 EDT, Height, kg, 02/21/25 9:16:00 EDT, Dosing Weight Start Date: 02/21/25 Status: Ordered Quantity: 90.0 Unit: tab(s) Repeat number: 1 Start: 06-28-2024 End: 09-26-2024 sertraline 25 mg oral tablet Dose : 25 mg = 1 tab(s), Oral, qDay, # 90 tab(s), 0 Refill(s), Pharmacy: [facility]/pharmacy #4605, 172, cm, 06/28/24 8:58:00 EDT, Height, kg, 06/28/24 8:49:00 EDT, Dosing Weight Start Date: 06/28/24 Stop Date: 09/26/24 Status: Ordered Quantity: 90.0 Unit: tab(s) Repeat number: 1 [place] [address] mg powder for oral suspension (20 sources) [...] qDay, # 90 tab(s), 0 Refill(s), Pharmacy: [facility]/pharmacy #4605, 172, cm, 08/11/24 10:00:00 EST, Height, kg, 08/11/24 10:00:00 EST, Dosing Weight Start Date: 08/14/24 Status: Ordered Quantity: 90.0 Unit: tab(s) Repeat number: 1 Start: 08-14-2024 Vitamin B12 10 00 mcg oral tablet Dose : 1,000 mcg = 1 tab(s), Oral, qDay, # 90 tab(s), 0 Refill(s), Pharmacy: [facility]/pharmacy #4605, 172, cm, 08/11/24 10:00:00 EST, Height, kg, 08/11/24 10:00:00 EST, Dosing Weight Start Date: 08/14/24 Status: Ordered Vitamin B12 500 mcg oral tablet (1 source) Start: 02-22-2025 End: 05-23-2025 Vitamin B12 500 mcg oral tab let Dose : 500 mcg = 1 tab(s), Oral, qDay, # 90 tab(s), 0 Refill(s), Pharmacy: [facility]/pharmacy #4605, 172, cm, 02/21/25 9:16:00 EDT, Height, [...] DAY, # 180 tab(s), 1 Refill(s), Pharmacy: [facility]/pharmacy #[facility]605, 175, cm, 06/16/21 8:33:00 EDT, Height, [...] 2018 12:00am February 25, 2021 8:19am nystatin 601735 unt/ml oral suspension (12 sources) Polyene Antifungal Start: 06-16-2018 End: 07-07-2018 take 113083 [IU] by mouth four times daily Nystatin 500,000 UNIT/5 ML suspension Discontinued 217979 U PO 4 TIMES DAILY 150 0 [...] 07-30-2025 Potassium [Moles/Vol] 4.5 mmol/L Normal 3.3-5.1 [facility] Comment on above: Performed By: #### L 500.2500, L501.5200 #### [facility] [place], [address] Potassiumon 07-24-2025 Potassium [Moles/Vol] 4.9 mmol/L Normal 3.3-5.1 [facility] Comment on above: Result Comment: Hemo lysis present, Results??could be affected. ?? Performed By: #### L 501.5600 #### [facility] [address] [place], [address] Potassiumon 07-16-2025 Potassium [Moles/Vol] 5.2 mmol/L High 3.3-5.1 [facility] Comment on above: Performed By: #### L 501.5600 #### [facility] [address] [place], [address] .GFRon 07-12-2025 Estimated Glomerular Filtration Rate 35 ml/min/1.73sqm Normal [facility] Comment on above: Result Comment: Stages [...] W, MG, ADIFF, GFR, CMP, ANEU #### [address] [place], [place] [address] BMPon 07-12-2025 BUN/Creatinine Ratio 17 ratio Normal 7-27 [facility] Comment on above: Order Comment: hemol maya jimenez Performed By: #### C LYNSEY, MDW, MG, ADIFF, GFR, CMP, ANEU #### [address] [place], [place] [address] Calcium [Mass/Vol] 8.5 mg/dL Normal 8.4-10.2 [facility] Comment on above: Order Comment: hemmaya ruiz Performed By: #### C KYUNG MENON, MG, ADIFF, GFR, CMP, ANEU #### [address] [address] Chloride [Moles/Vol] 108 mmol/L High 98-107 [facility] Comment on above: Order Comment: hemmaya ruiz Performed By: #### KYUNG SANTOS, MG, ADIFF, GFR, CMP, ANEU #### [address] [address] CO2 [Moles/Vol] 26 mmol/L Normal 23-31 [facility] Comment on above: Order Comment: hemmaya ruiz Performed By: #### KYUNG SANTOS, MG, ADIFF, GFR, CMP, ANEU #### [address] [address] Creatinine [Mass/Vol] 1.86 mg/dL High 0.67-1.17 [facility] Comment on above: Order Comment: hemmaya ruiz Performed By: #### KYUNG SANTOS, MG, ADIFF, GFR, CMP, ANEU #### [address] [address] Electrolyte Balance 6.0 mEq/L Normal 4.0-15.0 [facility] Comment on above: Order Comment: hemmaya ruiz Performed By: #### KYUNG SANTOS, MG, ADIFF, GFR, CMP, ANEU #### [address] [address] Glucose [Mass/Vol] 162 mg/dL High 83-110 [facility] Comment on above: Order Comment: hemmaya ruiz Performed By: #### KYUNG SANTOS, MG, ADIFF, GFR, CMP, ANEU #### [address] [address] Potassium [Moles/Vol] 5.2 mmol/L High 3.5-5.1 [facility] Comment on above: Order Comment: hemol maya jimenez Performed By: #### C LYNSEY, KYUNG, MG, ADIFF, GFR, CMP, ANEU #### [address] [place], [place] [address] Sodium [Moles/Vol] 140 mmol/L Normal 136-145 [facility] Comment on above: Order Comment: maya rosa Performed By: #### C LYNSEY, KYUNG, MG, ADIFF, GFR, CMP, ANEU #### [address] [place], [place] [address] Urea nitrogen [Mass/Vol] 31 mg/dL High 7-18 [facility] Comment on above: Order Comment: maya rosa Performed By: #### C LYNSEY, KYUNG, MG, ADIFF, GFR, CMP, ANEU #### [address] [place], [place] [address] LABORATORYOrdered By: SYSTEM SYSTEM on 07-12-2025 Calcium [...] [Moles/Vol] 6.0 mmol/L Invalid Interpretation Code 3.3-5.[address] [facility] Comment on above: Result Comment: Crit ical Result(s) Called MSHRIVER at: 1832 by: BRIDGETTE??Results read back by same. Performed By: #### L 501.5600 #### [facility] [address], [address] XR RIBS 2 VIEWS RIGHTon 06-20 XR [...] AM Ordering Provider: JLUIS NICHOLE RP [facility] XR SHOULDER MINIMUM 2 VIEWS RIGHTon [...] 07/06/2025 11:19:30 AM Ordering Provider: JLUIS NICHOLE [facility] CT HEAD OR BRAIN W/O CONTRAS [...] 4:57:02 PM Ordering Provider: JLUIS NICHOLE Normal [facility] Paul 07-05-2025 Potassium [Moles/Vol] 5.3 mmol/L High 3.5-5.1 L [facility] Comment on above: Performed By: #### C KYUNG MENON, MG, ADIFF, GFR, CMP, ANEU #### [address] [address] LABORATORYOrdered By: SYSTEM SYSTEM on 07-05-2025 Potassium [Moles/Vol] 5.3 mmol/L High 3.5 - 5.1 mmol/L AO ADM SS .Auto Diffon 07-04-2025 Basophil, Absolute 0.0 10 3/mcL Normal 0.0-0.3 [facility] Comment on above: Performed By: #### C KYUNG MENON, MG, ADIFF, GFR, CMP, ANEU #### [address] [address] Basophils/100 WBC (Bld) 0.7 % Normal 0.0-2.5 [facility] Comment on above: Performed By: #### C KYUNG MENON, MG, ADIFF, GFR, CMP, ANEU #### [address] [address] Eosinophil, Absolute 0.1 10 3/mcL Normal 0.0-0.7 [facility] Comment on above: Performed By: #### C KYUNG MENON, MG, ADIFF, GFR, CMP, ANEU #### [address] [place], [place] [address] Eosinophils/100 WBC (Bld) 1.8 % Normal 0.0-6.0 [facility] Comment on above: Performed By: #### C LYNSEY, KYUNG, MG, ADIFF, GFR, CMP, ANEU #### [address] [address] Lymphocyte, Absolute 1.5 10 3/mcL Normal 0.9-4.3 [facility] Comment on above: Performed By: #### C LYNSEY, W, MG, ADIFF, GFR, CMP, ANEU #### [address] [address] Lymphocytes/100 WBC (Bld) 20.8 % Normal 20.0-40.0 [facility] Comment on above: Performed By: #### C LYNSEY, KYUNG, MG, ADIFF, GFR, CMP, ANEU #### [address] [address] Monocyte, Absolute 0.5 10 3/mcL Normal 0.1-1.4 [facility] Comment on above: Performed By: #### C LYNSEY, W, MG, ADIFF, GFR, CMP, ANEU #### [address] [address] Monocytes/100 WBC (Bld) 7.7 % Normal 2.0-13.0 [facility] Comment on above: Performed By: #### C LYNSEY, KYUNG, MG, ADIFF, GFR, CMP, ANEU #### [address] [address] Neutrophils/100 WBC (Bld) 69.0 % Normal 50.0-75.0 [facility] Comment on above: Performed By: #### C LYNSEY, W, MG, ADIFF, GFR, CMP, ANEU #### [address] [address] .GFRon 07-04-2025 Estimated Glomerular Filtration Rate 36 ml/min/1.73sqm Normal [facility] Comment on above: Result Comment: Stages [...] MENON, MG, ADIFF, GFR, CMP, ANEU #### [place] [address] .NEUABSon 07-04-2025 Neutrophil, Absolute 4.9 10 3/mcL Normal 2.3-8.1 [facility] Comment on above: Performed By: #### C KYUNG MENON, MG, ADIFF, GFR, CMP, ANEU #### [place] [address] CBCon 07-04-2025 Erythrocyte distribution width (RBC) [Ratio] 16.2 % High 11.5-15.5 [facility] Comment on above: Performed By: #### C KYUNG MENON, MG, ADIFF, GFR, CMP, ANEU #### [place] [address] Hematocrit (Bld) [Volume fraction] 33.6 % Low 40.0-52.0 [facility] Comment on above: Performed By: #### C KYUNG MENON, MG, ADIFF, GFR, CMP, ANEU #### [place] [address] Hgb 11.1 G/dL Low 13.0-17.5 [facility] Comment on above: Performed By: #### C KYUNG MENON, MG, ADIFF, GFR, CMP, ANEU #### [place] [address] MCH (RBC) [Entitic mass] 31.1 pg Normal 27.0-33.0 [facility] Comment on above: Performed By: #### C KYUNG MENON, MG, ADIFF, GFR, CMP, ANEU #### [address] [address] MCHC 32.9 G/dL Normal 32.0-36.0 [facility] Comment on above: Performed By: #### C KYUNG MENON, MG, ADIFF, GFR, CMP, ANEU #### [address] [address] MCV (RBC) [Entitic vol] 94.6 fL Normal 81.0-100.0 A [facility] Comment on above: Performed By: #### C KYUNG MENON, MG, ADIFF, GFR, CMP, ANEU #### [address] [address] Platelet 107 10 3/mcL Low 150-450 [facility] Comment on above: Performed By: #### C KYUNG MENON, MG, ADIFF, GFR, CMP, ANEU #### [place] [address] Platelet mean volume (Bld) [Entitic vol] 8.5 fL Normal 6.4-10.5 [facility] Comment on above: Performed By: #### C KYUNG MENON, MG, ADIFF, GFR, CMP, ANEU #### [address] [address] RBC 3.55 10 6/mcL Low 4.50-6.00 [facility] Comment on above: Performed By: #### C KYUNG MENON, MG, ADIFF, GFR, CMP, ANEU #### [address] [address] WBC 7.1 10 3/mcL Normal 4.5-10.8 [facility] Comment on above: Performed By: #### C KYUNG MENON, MG, ADIFF, GFR, CMP, ANEU #### [place] [address] CMPon 07-04-2025 Albumin Level 3.7 G/dL Normal 3.4-4.8 [facility] Comment on above: Performed By: #### C KYUNG MENON, MG, ADIFF, GFR, CMP, ANEU #### [place] [address] Albumin/Globulin [Mass ratio] 1.2 {ratio} Normal 1.1-2.5 [facility] Comment on above: Performed By: #### C LYNSEY, KYUNG, MG, ADIFF, GFR, CMP, ANEU #### [place] [address] ALP [Catalytic activity/Vol] 108 U/L Normal 40-135 [facility] Comment on above: Performed By: #### C LYNSEY, KYUNG, MG, ADIFF, GFR, CMP, ANEU #### [place] [address] ALT/SGPT <6 Low 16-63 [facility] Comment on above: Performed By: #### C KYUNG MENON, MG, ADIFF, GFR, CMP, ANEU #### [place] [address] AST [Catalytic activity/Vol] 12 U/L Normal 10-40 [facility] Comment on above: Performed By: #### C KYUNG MENON, MG, ADIFF, GFR, CMP, ANEU #### [address] Bili Total 0.7 mg/dL Normal 0.2-1.0 [facility] Comment on above: Result Comment: Use of this assay is not recommended for patients undergoing treatment with eltrombopag due to the potential for falsely elevated results. Performed By: #### C KYUNG MENON, MG, ADIFF, GFR, CMP, ANEU #### [place] [address] BUN/Creatinine Ratio 17 ratio Normal 7-27 [facility] Comment on above: Performed By: #### C KYUNG MENON, MG, ADIFF, GFR, CMP, ANEU #### [place] [address] Calcium [Mass/Vol] 9.1 mg/dL Normal 8.4-10.2 [facility] Comment on above: Performed By: #### C KYUNG MENON, MG, ADIFF, GFR, CMP, ANEU #### [address] [address] Chloride [Moles/Vol] 110 mmol/L High 98-107 [facility] Comment on above: Performed By: #### C KYUNG MENON, MG, ADIFF, GFR, CMP, ANEU #### [place] [address] CO2 [Moles/Vol] 28 mmol/L Normal 23-31 [facility] Comment on above: Performed By: #### C KYUNG MENON, MG, ADIFF, GFR, CMP, ANEU #### [place] [id number] Creatinine [Mass/Vol] 1.82 mg/dL High 0.67-1.17 [facility] Comment on above: Performed By: #### C KYUNG MENON, MG, ADIFF, GFR, CMP, ANEU #### [address] [address] Electrolyte Balance 5.0 mEq/L Normal 4.0-15.0 [facility] Comment on above: Performed By: #### C KYUNG MENON, MG, ADIFF, GFR, CMP, ANEU #### [address] [address] Globulin 3.1 G/dL Normal 2.7-4.4 [facility] Comment on above: Performed By: #### C KYUNG MENON, MG, ADIFF, GFR, CMP, ANEU #### [address] [address] Glucose [Mass/Vol] 68 mg/dL Low 83-110 [facility] Comment on above: Performed By: #### C KYUNG MENON, MG, ADIFF, GFR, CMP, ANEU #### [address] [address] Potassium [Moles/Vol] 5.4 mmol/L High 3.5-5.1 [facility] Comment on above: Performed By: #### C KYUNG MENON, MG, ADIFF, GFR, CMP, ANEU #### [address] [place], [place] [address] Sodium [Moles/Vol] 143 mmol/L Normal 136-145 [facility] Comment on above: Performed By: #### C KYUNG MENON, MG, ADIFF, GFR, CMP, ANEU #### [address] [place], [place] [address] Total Protein 6.8 G/dL Normal 6.4-8.2 [facility] Comment on above: Performed By: #### C KYUNG MENON, MG, ADIFF, GFR, CMP, ANEU #### [address] [place], [place] [address] Urea nitrogen [Mass/Vol] 31 mg/dL High 7-18 [facility] Comment on above: Performed By: #### C KYUNG MENON, MG, ADIFF, GFR, CMP, ANEU #### [address] [address] LABORATORYOrdered By: SYSTEM SYSTEM on 07-04-2025 Albumin [...] Culture Urine No growth at 48 hours. [facility] Work Phone: PBNPon 07-04-2025 Natriuretic peptide B (Bld) [Mass/Vol] 1302 pg/mL High 0-450 [facility] Comment on above: Result Comment: NT-p roBNP results of less than 300 pg/mL effectively rules out acute congestive heart failure with 99% negative predictive value. Performed By: #### C BC, MDW, MG, ADIFF, GFR, CMP, ANEU #### [facility] [address] [place], [place] [address] XR CHEST 2 VIEWSon XR CHEST 2 [...] PM Ordering Provider: JLUIS NICHOLE RP Normal [facility] XR HUMERUS MINIMUM 2 VIEWS R [...] PM Ordering Provider: JLUIS NICHOLE RP Normal [facility] Neurology Visit Reporton Neurology Visit Report [place] [facility] [address] [facility], [address] [place] [address] OFFICE VISIT Date of Service: 06/11/25 MR#: [id number] Acct: [id number] Name: EKATERINA RANDHAWA Rep #: [id number] : 1940 Provider: Dr. Braxton garg MD Age/Sex: 85/M [place] [facility] [place] 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 He [...] pattern). Head (more content not included)... Normal [facility] Anion gap in Serum or Plasma Ordered By: Porsha Bass on 04-26-2025 Anion gap [Moles/Vol] 11 mmol/L - [facility] BUN/creatinine ratioOrdered By: Porsha Bass on 04-26-2025 Urea nitrogen/Creatinine [Mass ratio] 14.1 mg/mg - [facility] Basic Metabolic Profile (BMP )on 04-26-2025 BUN/CRE 14.1 RATIO Normal 07-[address] [facility] Comment on above: Performed By: #### L 500.2500 #### [facility] [place], [address] Calcium [Mass/Vol] 9.1 mg/dL Normal 7.6-11.0 [facility] Comment on above: Performed By: #### L 500.2500 #### [facility] [address] [place], [address] Chloride [Moles/Vol] 106 mmol/L Normal 98-108 [facility] Comment on above: Performed By: #### L 500.2500 #### [facility] [address] [place], [address] CO2 [Moles/Vol] 20.7 mmol/L Low 21.0-32.[address] [facility] Comment on above: Performed By: #### L 500.2500 #### [facility] [address] [place], [address] Creatinine [Mass/Vol] 1.85 mg/dL High 0.70-1.20 [facility] Comment on above: Performed By: #### L 500.2500 #### [facility] [address] [place], [address] GAP 11 Normal 5-[address] [facility] Comment on above: Performed By: #### L 500.2500 #### [facility] [address] [place], [address] GFR/1.73 sq M.predicted among non-blacks MDRD (S/P/Bld) [Vol rate/Area] 35 mL/min/{1.73_m2} Low >[address] [facility] Comment on above: Result Comment: mL/m in/1.73m2 CKD-EPI Creatinine Equation (2020) Performed By: #### L 500.2500 #### [facility] [address] [place], [address] Glucose [Mass/Vol] 174 mg/dL High 70-99 [facility] Comment on above: Performed By: #### L 500.2500 #### [facility] [address] [place], [address] Potassium [Moles/Vol] 4.4 mmol/L Normal 3.3-5.1 [facility] Comment on above: Performed By: #### L 500.2500 #### [facility] [address] [place], [place], [id number] Sodium [Moles/Vol] 138 mmol/L Normal 133-145 [facility] Comment on above: Performed By: #### L 500.2500 #### [facility] [address] [place], [address] Urea nitrogen [Mass/Vol] 26 mg/dL High 4-[address] [facility] Comment on above: Performed By: #### L 500.2500 #### [facility] [address] [place], [address] Carbon dioxide, total [Moles /volume] in Central venous bloodOrdered By: Porsha Bass on 04-26-2025 CO2 [Moles/Vol] 20.7 mmol/L Low 21.0-32.[address] [facility] Chloride assayOrdered By: Kev Bass on 04-26-2025 Chloride [Moles/Vol] 106 mmol/L 98-108 [facility] Glomerular filtration rate ( GFR) estimation/1.73 sq m using serum, plasma, or whole bOrdered By: Porsha Bass on 04-26-2025 GFR/1.73 sq M.predicted among non-blacks MDRD (S/P/Bld) [Vol rate/Area] 35 mL/min/{1.73_m2} Low >[address] [facility] Comment on above: mL/min/1.73m2 CKD-EP I Creatinine Equation (2020) Kidney and Bladderon 025 Kidney and Bladder [facility] Imaging Services [address] [place], [place] [address] Kidney and Bladder MR#: [id number] Acct: [id number] Name: EKATERINA RANDHAWA Rep #: [id number] : [id number] M 85 From: Konrad gaston MD PCP: Dr. Jluis Nichole, DO Status: REG CLI Study: Kidney and Bladder Date of Exam: 04/26/25 Exam# [id number] Ordering Dr: Porsha Bass DO PROCEDURE: KIDNEY AND BLADDER 04/26/2025 REASON FOR EXAM: HYPERKALEMIA TECHNIQUE: KIDNEY AND BLADDER COMPARISON: None FINDINGS: Kidneys: Normal renal sizes, parenchymal thicknesses, and echotextures. [place]: No evidence of hydronephrosis. Cysts or Masses: [...] Bladder IMPRESSION: NORMAL RENAL ULTRASOUND. Reading Location: [id number] CC: Dr. Porsha Bass DO; Dr. Jluis Nichole DO Client Liaison: Signed Normal [facility] Potassium measurement (mass/ volume)Ordered By: Porsha Bass on 04-26-2025 Potassium (Unsp spec) [Mass/Vol] 4.4 mmol/L 3.3-5.[address] [facility] Serum creatinine measurement (mass/volume)Ordered By: Porsha Bass on 04-26-2025 Creatinine [Mass/Vol] 1.85 mg/dL High 0.70-1.20 [facility] Serum glucose measurement (m ass/volume)Ordered By: Porsha Bass on 04-26-2025 Glucose [Mass/Vol] 174 mg/dL High 70-99 [facility] Serum or plasma calcium francisco urement (mass/volume)Ordered By: Porsha Bass on 04-26-2025 Calcium [Mass/Vol] 9.1 mg/dL 7.6-11.0 [facility] Serum or plasma urea nitroge n measurement (mass/volume)Ordered By: Porsha Bass on 04-26-2025 Urea nitrogen [Mass/Vol] 26 mg/dL High 4-[address] [facility] Sodium levelOrdered By: Seth Bass on 04-26-2025 Sodium [Moles/Vol] 138 mmol/L 133-145 [facility] Anion gap in Serum or Plasma Ordered By: Porsha Bass on 04-19-2025 Anion gap [Moles/Vol] 10 mmol/L - [facility] BUN/creatinine ratioOrdered By: Porsha Bass on 04-19-2025 Urea nitrogen/Creatinine [Mass ratio] 13.8 mg/mg 07-[address] [facility] Basic Metabolic Profile (BMP )on 04-19-2025 BUN/CRE 13.8 RATIO Normal 07-[address] [facility] Comment on above: Performed By: #### L 500.2500 #### [facility] Laboratory [address] [place], [address] Calcium [Mass/Vol] 9.1 mg/dL Normal 7.6-11.0 [facility] Comment on above: Performed By: #### L 500.2500 #### [facility] [address] [place], [address] Chloride [Moles/Vol] 107 mmol/L Normal 98-108 [facility] Comment on above: Performed By: #### L 500.2500 #### [facility] [address] [place], [address] CO2 [Moles/Vol] 23.5 mmol/L Normal 21.0-32.[address] [facility] Comment on above: Performed By: #### L 500.2500 #### [facility] [address] [place], [address] Creatinine [Mass/Vol] 1.99 mg/dL High 0.70-1.20 [facility] Comment on above: Performed By: #### L 500.2500 #### [facility] [address] [place], [address] GAP 10 Normal - [facility] Comment on above: Performed By: #### L 500.2500 #### [facility] [address] [place], [address] GFR/1.73 sq M.predicted among non-blacks MDRD (S/P/Bld) [Vol rate/Area] 32 mL/min/{1.73_m2} Low >[address] [facility] Comment on above: Result Comment: mL/m in/1.73m2 CKD-EPI Creatinine Equation (2020) Performed By: #### L 500.2500 #### [facility] [address] [place], [address] Glucose [Mass/Vol] 117 mg/dL High 70-99 [facility] Comment on above: Performed By: #### L 500.2500 #### [facility] [address] [place], [address] Potassium [Moles/Vol] 5.7 mmol/L High 3.3-5.1 [facility] Comment on above: Performed By: #### L 500.2500 #### [facility] [address] [place], [address] Sodium [Moles/Vol] 140 mmol/L Normal 133-145 [facility] Comment on above: Performed By: #### L 500.2500 #### [facility] [address] [place], [address] Urea nitrogen [Mass/Vol] 27 mg/dL High 4-[address] [facility] Comment on above: Performed By: #### L 500.2500 #### [facility] [address] [place], [address] Carbon dioxide, total [Moles /volume] in Central venous bloodOrdered By: Porsha Bass on 04-19-2025 CO2 [Moles/Vol] 23.5 mmol/L 21.0-32.[address] [facility] Chloride assayOrdered By: Kev Bass on 04-19-2025 Chloride [Moles/Vol] 107 mmol/L 98-108 [facility] Glomerular filtration rate ( GFR) estimation/1.73 sq m using serum, plasma, or whole bOrdered By: Porsha Bass on 04-19-2025 GFR/1.73 sq M.predicted among non-blacks MDRD (S/P/Bld) [Vol rate/Area] 32 mL/min/{1.73_m2} Low >[address] [facility] Comment on above: mL/min/1.73m2 CKD-EP I Creatinine Equation (2020) Potassium measurement (mass/ volume)Ordered By: Porsha Bass on 04-19-2025 Potassium (Unsp spec) [Mass/Vol] 5.7 mmol/L High 3.3-5.[address] [facility] Serum creatinine measurement (mass/volume)Ordered By: Porsha Bass on 04-19-2025 Creatinine [Mass/Vol] 1.99 mg/dL High 0.70-1.20 [facility] Serum glucose measurement (m ass/volume)Ordered By: Porsha Bass on 04-19-2025 Glucose [Mass/Vol] 117 mg/dL High 70-99 [facility] Serum or plasma calcium francisco urement (mass/volume)Ordered By: Porsha Bass on 04-19-2025 Calcium [Mass/Vol] 9.1 mg/dL 7.6-11.0 [facility] Serum or plasma urea nitroge n measurement (mass/volume)Ordered By: Porsha Bass on 04-19-2025 Urea nitrogen [Mass/Vol] 27 mg/dL High 4-[address] [facility] Sodium levelOrdered By: Seth Bass on 04-19-2025 Sodium [Moles/Vol] 140 mmol/L 133-145 [facility] Anion gap in Serum or Plasma Ordered By: Posrha Bass on 04-10-2025 Anion gap [Moles/Vol] 10 mmol/L 5-15 [facility] BUN/creatinine ratioOrdered By: Porsha Bass on 04-10-2025 Urea nitrogen/Creatinine [Mass ratio] 16.9 mg/mg 10- [facility] Basic Metabolic Profile (BMP )on 04-10-2025 BUN/CRE 16.9 RATIO Normal - [facility] Comment on above: Performed By: #### L 500.2500, L501.5200 #### [facility] Laboratory [facility] [place], [address] Calcium [Mass/Vol] 9.4 mg/dL Normal 7.6-11.0 [facility] Comment on above: Performed By: #### L 500.2500, L501.5200 #### [facility] [address] [place], [address] Chloride [Moles/Vol] 107 mmol/L Normal 98-108 [facility] Comment on above: Performed By: #### L 500.2500, L501.5200 #### [facility] [address] [place], [address] CO2 [Moles/Vol] 23.1 mmol/L Normal 21.0-32.[address] [facility] Comment on above: Performed By: #### L 500.2500, L501.5200 #### [facility] [address] [place], [address] Creatinine [Mass/Vol] 1.80 mg/dL High 0.70-1.20 [facility] Comment on above: Performed By: #### L 500.2500, L501.5200 #### [facility] [address] [place], [address] GAP 10 Normal 5-[address] [facility] Comment on above: Performed By: #### L 500.2500, L501.5200 #### [facility] [address] [place], [address] GFR/1.73 sq M.predicted among non-blacks MDRD (S/P/Bld) [Vol rate/Area] 36 mL/min/{1.73_m2} Low >[address] [facility] Comment on above: Result Comment: mL/m in/1.73m2 CKD-EPI Creatinine Equation (2020) Performed By: #### L 500.2500, L501.5200 #### [facility] [address] [place], [address] Glucose [Mass/Vol] 129 mg/dL High 70-99 [facility] Comment on above: Performed By: #### L 500.2500, L501.5200 #### [facility] [address] [place], [address] Potassium [Moles/Vol] 5.5 mmol/L High 3.3-5.1 [facility] Comment on above: Performed By: #### L 500.2500, L501.5200 #### [facility] [address] [place], [address] Sodium [Moles/Vol] 140 mmol/L Normal 133-145 [facility] Comment on above: Performed By: #### L 500.2500, L501.5200 #### [facility] [address] [place], [address] Urea nitrogen [Mass/Vol] 30 mg/dL High 4-[address] [facility] Comment on above: Performed By: #### L 500.2500, L501.5200 #### [facility] [address] [place], [address] Carbon dioxide, total [Moles /volume] in Central venous bloodOrdered By: Porsha Bass on 04-10-2025 CO2 [Moles/Vol] 23.1 mmol/L 21.0-32.[address] [facility] Carotid Duplex Ultrasoundon 04-10-2025 Carotid Duplex Ultrasound [facility] [address] [place] [address] Carotid Duplex Ultrasound 04/10/25 1303 MR#: [id number] Acct: [id number] Name: EKATERINA RANDHAWA Rep #: [id number] : 1940 85 From: Cecilio Siu MD Attending Dr: WON FernándezC Status: REG C KELVIN Ordering Dr: Sharon Parsons PROJECT CONTROL ANALYST-C Date: 04/10/25 Location[place] [facility] [place] Sex: M C Admitted: Reason For Study [...] the left vertebral artery. Procedure Carotid Duplex 00478. This is a Carotid Duplex examination using B-mode, color flow and specral Doppler. Exam performed in department. VL/Carotid Duplex Ultrasound Interpretation Summary Mild (<50%) stenosis right extracranial internal carotid. Mild (<50%) stenosis left extracranial internal carotid. Patent and antegrade vertebrals bilaterally. ___ Ordering Physician: Sharon Parsons Referring Physician: Jluis Nichole DO Performed By: Arelis Boyer, RVT 04/10/25 1425 Date Cecilio Siu MD CC: PROJECT CONTROL ANALYST-C Sharon Parsons; Dr. Jluis Nichole DO Date Dictated: 04/10/25 1303 Date Transcribed: 04/10/25 142 Client Liaison: Signed Normal [facility] Chloride assayOrdered By: Kev Bass on 04-10-2025 Chloride [Moles/Vol] 107 mmol/L 98-108 [facility] Duplex ultrasound of carotid artery reportOrdered By: Cecilio Siu on 04-10-2025 Study report [facility] [address] [place] [address] Carotid Duplex Ultrasound 04/10/25 1303 MR#: [id number] Acct: [id number] Name: EKATERINA RANDHAWA Rep #:[id number] : 1940 85 From: Cecilio Bautista Attending Dr: OBIE Fernández S tatus: REG CLI Ordering Dr: Sharon Parsons Date: 04/10/25 Location: [facility] [place] Sex: M C Admitted: Reason For Study [...] the left vertebral artery. Procedure Carotid Duplex 39345. This is a Carotid Duplex examination using [...] Dictated: 04/10/25 1303 Date Transcribed: 04/10/25 1425 Client Liaison: Signed [facility] Work Phone: Glomerular filtration rate ( GFR) estimation/1.73 sq m using serum, plasma, or whole bOrdered By: Porsha Bass on 04-10-2025 GFR/1.73 sq M.predicted among non-blacks MDRD (S/P/Bld) [Vol rate/Area] 36 mL/min/{1.73_m2} Low >[address] [facility] Comment on above: mL/min/1.73m2 CKD-EP I Creatinine Equation (2020) Magnesiumon 04-10-2025 Magnesium [Mass/Vol] 2.0 mg/dL Normal 1.5-2.2 [facility] Comment on above: Performed By: #### L 500.2500, L501.5200 #### [facility] [address] [place], [address] Magnesium measurement (mass/ volume)Ordered By: Porsha Bass on 04-10-2025 Magnesium (Unsp spec) [Mass/Vol] 2.0 mg/dL 1.5-2.[address] [facility] Potassium measurement (mass/ volume)Ordered By: Porsha Bass on 04-10-2025 Potassium (Unsp spec) [Mass/Vol] 5.5 mmol/L High 3.3-5.[address] [facility] Serum creatinine measurement (mass/volume)Ordered By: Porsha Bass on 04-10-2025 Creatinine [Mass/Vol] 1.80 mg/dL High 0.70-1.20 [facility] Serum glucose measurement (m ass/volume)Ordered By: Porsha Bass on 04-10-2025 Glucose [Mass/Vol] 129 mg/dL High 70-99 [facility] Serum or plasma calcium francisco urement (mass/volume)Ordered By: Porsha Bass on 04-10-2025 Calcium [Mass/Vol] 9.4 mg/dL 7.6-11.0 [facility] Serum or plasma urea nitroge n measurement (mass/volume)Ordered By: Porsha Bass on 04-10-2025 Urea nitrogen [Mass/Vol] 30 mg/dL High 4-[address] [facility] Sodium levelOrdered By: Seth Bass on 04-10-2025 Sodium [Moles/Vol] 140 mmol/L 133-145 [facility] Echo Completeon 03-28-[address] [facility] [address] [place] [address] Echo Complete 03/28/25 1258 MR#: [id number] Acct: [id number] Name: EKATERINA RANDHAWA Rep #: [id number] : 1940 85 From: Cheng Camarillo MD Attending Dr: DG Fontana Status: REG CLI Ordering Dr: Bailey Howe Date: 06/14 Location: [facility] Sex: M C Admitted: Reason For Study [...] Font[place] Date Dictated: 03/28/251257 Date Transcribed: 03/28/251840 Client Liaison: Signed Normal [facility] Echocardiogram study reportO rdered By: Cheng Camarillo on 03-28-2025 Study report [facility] [address] [place] [address] Echo Complete 03/28/25 1258 MR#: [id number] Acct: [id number] Name: EKATERINA RANDHAWA Rep #:[id number] : 1940 85 From: Cheng Bautista Attending [...] Date Dictated: 03/28/25 1258 Date Transcribed: 03/28/251840 Client Liaison: Signed [facility] Work Phone: Neurology Visit Reporton Neurology Visit Report [facility] [address], [address] [place] [address] OFFICE VISIT Date of Service: 03/28/25 MR#: [id number] Acct: [id number] Name: EKATERINA RANDHAWA Rep #: [id number] : 1940 Provider: OBIE key Age/Sex: 85/M [place] [facility] [place] Status: Signed [facility] HPI Chief Complaint: Details: Interim History: [...] this began during his hospitalization for his WA/CABG and may have been procedure related). He [...] acute o (more content not included)... 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 Encounter Status:Closed by DEB OROZCO on 06/07/25 Normal [facility] INTABon 02-24-2025 Intrinsic Factor Abs 0.9 Au/mL Normal 0.0-1.1 [facility] Comment on above: Result Comment: Perf ormed At: [facility] [id number] Jacques Ferrell MD Ph:[phone] Performed By: #### C KYUNG MENON, MG, ADIFF, GFR, CMP, ANEU #### [address] [address] .Auto Diffon 02-22-2025 Basophil, Absolute 0.1 10 3/mcL Normal 0.0-0.3 [facility] Comment on above: Performed By: #### C KYUNG MENON, MG, ADIFF, GFR, CMP, ANEU #### [address] [address] Basophils/100 WBC (Bld) 1.4 % Normal 0.0-2.5 [facility] Comment on above: Performed By: #### C KYUNG MENON, MG, ADIFF, GFR, CMP, ANEU #### [address] [address] Eosinophil, Absolute 0.1 10 3/mcL Normal 0.0-0.7 [facility] Comment on above: Performed By: #### C LYNSEY, KYUNG, MG, ADIFF, GFR, CMP, ANEU #### [address] [address] Eosinophils/100 WBC (Bld) 2.0 % Normal 0.0-6.0 [facility] Comment on above: Performed By: #### C KYUNG MENON, MG, ADIFF, GFR, CMP, ANEU #### [address] [address] Lymphocyte, Absolute 1.5 10 3/mcL Normal 0.9-4.3 [facility] Comment on above: Performed By: #### C KYUNG MENON, MG, ADIFF, GFR, CMP, ANEU #### [address] [address] Lymphocytes/100 WBC (Bld) 26.0 % Normal 20.0-40.0 [facility] Comment on above: Performed By: #### C KYUNG MENON, MG, ADIFF, GFR, CMP, ANEU #### [address] [address] Monocyte, Absolute 0.5 10 3/mcL Normal 0.1-1.4 [facility] Comment on above: Performed By: #### C KYUNG MENON, MG, ADIFF, GFR, CMP, ANEU #### [address] [address] Monocytes/100 WBC (Bld) 7.8 % Normal 2.0-13.0 [facility] Comment on above: Performed By: #### C KYUNG MENON, MG, ADIFF, GFR, CMP, ANEU #### [address] [address] Neutrophils/100 WBC (Bld) 62.8 % Normal 50.0-75.0 [facility] Comment on above: Performed By: #### C BC, MDW, MG, ADIFF, GFR, CMP, ANEU #### [address] [address] .GFRon 02-22-2025 Estimated Glomerular Filtration Rate 30 ml/min/1.73sqm Normal [facility] Comment on above: Result Comment: Stages [...] MDW, MG, ADIFF, GFR, CMP, ANEU #### [place] [address] .MDWon 02-22-2025 Monocyte Distribution Width 17.57 Normal 0.00-20.00 [facility] Comment on above: Result Comment: For ED adult patients suspected of sepsis, MDW<=20.0 does not rule out sepsis or risk of sepsis Performed By: #### C BC, MDW, MG, ADIFF, GFR, CMP, ANEU #### [place] [address] .NEUABSon 02-22-2025 Neutrophil, Absolute 3.6 10 3/mcL Normal 2.3-8.1 [facility] Comment on above: Performed By: #### C BC, MDW, MG, ADIFF, GFR, CMP, ANEU #### [place] [address] CBCon 02-22-2025 Erythrocyte distribution width (RBC) [Ratio] 15.6 % High 11.5-15.5 [facility] Comment on above: Performed By: #### C BC, MDW, MG, ADIFF, GFR, CMP, ANEU #### [place] [address] Hematocrit (Bld) [Volume fraction] 32.7 % Low 40.0-52.0 [facility] Comment on above: Performed By: #### C KYUNG MENON, MG, ADIFF, GFR, CMP, ANEU #### [place] [address] Hgb 10.8 G/dL Low 13.0-17.5 [facility] Comment on above: Performed By: #### C KYUNG MENON, MG, ADIFF, GFR, CMP, ANEU #### [place] [address] MCH (RBC) [Entitic mass] 29.5 pg Normal 27.0-33.0 [facility] Comment on above: Performed By: #### C KYUNG MENON, MG, ADIFF, GFR, CMP, ANEU #### [place] [address] MCHC 33.0 G/dL Normal 32.0-36.0 [facility] Comment on above: Performed By: #### C KYUNG MENON, MG, ADIFF, GFR, CMP, ANEU #### [place] [address] MCV (RBC) [Entitic vol] 89.5 fL Normal 81.0-100.0 [facility] Comment on above: Performed By: #### C KYUNG MENON, MG, ADIFF, GFR, CMP, ANEU #### [place] [address] Platelet 104 10 3/mcL Low 150-450 [facility] Comment on above: Performed By: #### C KYUNG MENON, MG, ADIFF, GFR, CMP, ANEU #### [place] [address] Platelet mean volume (Bld) [Entitic vol] 7.2 fL Normal 6.4-10.5 [facility] Comment on above: Performed By: #### C KYUNG MENON, MG, ADIFF, GFR, CMP, ANEU #### [address] [address] RBC 3.65 10 6/mcL Low 4.50-6.00 [facility] Comment on above: Performed By: #### C KYUNG MENON, MG, ADIFF, GFR, CMP, ANEU #### [address] [address] WBC 5.8 10 3/mcL Normal 4.5-10.8 [facility] Comment on above: Performed By: #### C KYUNG MENON, MG, ADIFF, GFR, CMP, ANEU #### [address] [address] CMPon 02-22-2025 ALT [Catalytic activity/Vol] 9 U/L Low 16-63 [facility] Comment on above: Performed By: #### C KYUNG MENON, MG, ADIFF, GFR, CMP, ANEU #### [address] [address] Albumin Level 3.7 G/dL Normal 3.4-4.8 [facility] Comment on above: Performed By: #### C KYUNG MENON, MG, ADIFF, GFR, CMP, ANEU #### [address] [address] Albumin/Globulin [Mass ratio] 1.3 {ratio} Normal 1.1-2.5 [facility] Comment on above: Performed By: #### C KUYNG MENON, MG, ADIFF, GFR, CMP, ANEU #### [address] [address] ALP [Catalytic activity/Vol] 99 U/L Normal 40-135 [facility] Comment on above: Performed By: #### C KYUNG MENON, MG, ADIFF, GFR, CMP, ANEU #### [address] [address] AST [Catalytic activity/Vol] 14 U/L Normal 10-40 [facility] Comment on above: Performed By: #### C KYUNG MENON, MG, ADIFF, GFR, CMP, ANEU #### [address] [address] Bili Total 0.5 mg/dL Normal 0.2-1.0 [facility] Comment on above: Result Comment: Use of this assay is not recommended for patients undergoing treatment with eltrombopag due to the potential for falsely elevated results. Performed By: #### C LYNSEY, KYUNG, MG, ADIFF, GFR, CMP, ANEU #### [address] [address] BUN/Creatinine Ratio 16 ratio Normal 7-27 [facility] Comment on above: Performed By: #### C KYUNG MENON, MG, ADIFF, GFR, CMP, ANEU #### [address] [address] Calcium [Mass/Vol] 8.9 mg/dL Normal 8.4-10.2 [facility] Comment on above: Performed By: #### C KYUNG MENON, MG, ADIFF, GFR, CMP, ANEU #### [address] [address] Chloride [Moles/Vol] 106 mmol/L Normal 98-107 [facility] Comment on above: Performed By: #### C KYUNG MENON, MG, ADIFF, GFR, CMP, ANEU #### [address] [address] CO2 [Moles/Vol] 28 mmol/L Normal 23-31 [facility] Comment on above: Performed By: #### C KYUNG MENON, MG, ADIFF, GFR, CMP, ANEU #### [address] [address] Creatinine [Mass/Vol] 2.12 mg/dL High 0.67-1.17 [facility] Comment on above: Performed By: #### C KYUNG MENON, MG, ADIFF, GFR, CMP, ANEU #### [address] [address] Electrolyte Balance 7.0 mEq/L Normal 4.0-15.0 [facility] Comment on above: Performed By: #### C KYUNG MENON, MG, ADIFF, GFR, CMP, ANEU #### [address] [address] Globulin 2.8 G/dL Normal 2.7-4.4 [facility] Comment on above: Performed By: #### C KYUNG MENON, MG, ADIFF, GFR, CMP, ANEU #### [address] [address] Glucose [Mass/Vol] 113 mg/dL High 83-110 [facility] Comment on above: Performed By: #### C KYUNG MENON, MG, ADIFF, GFR, CMP, ANEU #### [address] [address] Potassium [Moles/Vol] 4.7 mmol/L Normal 3.5-5.1 [facility] Comment on above: Performed By: #### C KYUNG MENON, MG, ADIFF, GFR, CMP, ANEU #### [address] [address] Sodium [Moles/Vol] 141 mmol/L Normal 136-145 [facility] Comment on above: Performed By: #### C KYUNG MENON, MG, ADIFF, GFR, CMP, ANEU #### [address] [address] Total Protein 6.5 G/dL Normal 6.4-8.2 [facility] Comment on above: Performed By: #### C KYUNG MENON, MG, ADIFF, GFR, CMP, ANEU #### [address] [address] Urea nitrogen [Mass/Vol] 34 mg/dL High 7-18 [facility] Comment on above: Performed By: #### C KYUNG MENON, MG, ADIFF, GFR, CMP, ANEU #### [address] [address] Jimmy 02-22-2025 Gastrin 113 pg/mL Normal 0-115 [facility] Comment on above: Result Comment: Siem Immulite 2000 Immunochemiluminometric assay (ICMA) Values obtained with different assay methods or kits cannot be used interchangeably. Results cannot be interpreted as absolute evidence of the presence or absence of malignant disease. Performed At: [facility] [id number] Jacques Ferrell MD Ph:[phone] Performed By: #### C BC, MDW, MG, ADIFF, GFR, CMP, ANEU #### [facility] [address] [place], [place] [address] LABORATORYOrdered By: SYSTEM SYSTEM on 02-22-2025 Albumin [...] [Mass/Vol] 1.8 mg/dL Normal 1.8-2.4 [facility] Comment on above: Performed By: #### C BC, MDW, MG, ADIFF, GFR, CMP, ANEU #### [place] [address] .Auto Diffon 06-04-2025 Basophil, Absolute 0.0 10 3/mcL Normal 0.0-0.3 [facility] Comment on above: Performed By: #### C LYNSEY, KYUNG, MG, ADIFF, GFR, CMP, ANEU #### [address] [address] Basophils/100 WBC (Bld) 0.6 % Normal 0.0-2.5 [facility] Comment on above: Performed By: #### C BC, W, MG, ADIFF, GFR, CMP, ANEU #### [address] [address] Eosinophil, Absolute 0.1 10 3/mcL Normal 0.0-0.7 [facility] Comment on above: Performed By: #### C LYNSEY, KYUNG, MG, ADIFF, GFR, CMP, ANEU #### [address] [address] Eosinophils/100 WBC (Bld) 2.4 % Normal 0.0-6.0 [facility] Comment on above: Performed By: #### C KYUNG MENON, MG, ADIFF, GFR, CMP, ANEU #### [address] [address] Lymphocyte, Absolute 1.5 10 3/mcL Normal 0.9-4.3 [facility] Comment on above: Performed By: #### C LYNSEY, W, MG, ADIFF, GFR, CMP, ANEU #### [address] [address] Lymphocytes/100 WBC (Bld) 24.4 % Normal 20.0-40.0 [facility] Comment on above: Performed By: #### C LYNSEY, KYUNG, MG, ADIFF, GFR, CMP, ANEU #### [address] [address] Monocyte, Absolute 0.4 10 3/mcL Normal 0.1-1.4 [facility] Comment on above: Performed By: #### C LYNSEY, W, MG, ADIFF, GFR, CMP, ANEU #### [address] [address] Monocytes/100 WBC (Bld) 6.1 % Normal 2.0-13.0 [facility] Comment on above: Performed By: #### C KYUNG MENON, MG, ADIFF, GFR, CMP, ANEU #### [address] [address] Neutrophils/100 WBC (Bld) 66.5 % Normal 50.0-75.0 [facility] Comment on above: Performed By: #### C KYUNG MENON, MG, ADIFF, GFR, CMP, ANEU #### [address] [address] .GFRon 02-21-2025 Estimated Glomerular Filtration Rate 31 ml/min/1.73sqm Normal [facility] Comment on above: Result Comment: Stages [...] MENON, MG, ADIFF, GFR, CMP, ANEU #### [address] [address] .NEUABSon 02-21-2025 Neutrophil, Absolute 4.0 10 3/mcL Normal 2.3-8.1 [facility] Comment on above: Performed By: #### C KYUNG MENON, MG, ADIFF, GFR, CMP, ANEU #### [place] [address] [place], [place] [address] B12on 02-21-2025 Cobalamin (Vitamin B12) [Mass/Vol] 1629 pg/mL High 211-911 [facility] Comment on above: Performed By: #### C KYUNG MENON, MG, ADIFF, GFR, CMP, ANEU #### [address] [address] BMPon 02-21-2025 BUN/Creatinine Ratio 15 ratio Normal 7-27 [facility] Comment on above: Performed By: #### C LYNSEY, KYUNG, MG, ADIFF, GFR, CMP, ANEU #### [place] [address] Calcium [Mass/Vol] 9.3 mg/dL Normal 8.4-10.2 [facility] Comment on above: Performed By: #### C KYUNG MENON, MG, ADIFF, GFR, CMP, ANEU #### [place] [address] Chloride [Moles/Vol] 106 mmol/L Normal 98-107 [facility] Comment on above: Performed By: #### C KYUNG MENON, MG, ADIFF, GFR, CMP, ANEU #### [place] [address] CO2 [Moles/Vol] 29 mmol/L Normal 23-31 [facility] Comment on above: Performed By: #### C KYUNG MENON, MG, ADIFF, GFR, CMP, ANEU #### [address] [address] Creatinine [Mass/Vol] 2.09 mg/dL High 0.67-1.17 [facility] Comment on above: Performed By: #### C KYUNG MENON, MG, ADIFF, GFR, CMP, ANEU #### [address] [address] Electrolyte Balance 6.0 mEq/L Normal 4.0-15.0 [facility] Comment on above: Performed By: #### C KYUNG MENON, MG, ADIFF, GFR, CMP, ANEU #### [place] [address] Glucose [Mass/Vol] 110 mg/dL Normal 83-110 [facility] Comment on above: Performed By: #### C KYUNG MENON, MG, ADIFF, GFR, CMP, ANEU #### [address] [address] Potassium [Moles/Vol] 6.0 mmol/L High 3.5-5.1 [facility] Comment on above: Performed By: #### C KYUNG MENON, MG, ADIFF, GFR, CMP, ANEU #### [place] [address] Sodium [Moles/Vol] 141 mmol/L Normal 136-145 [facility] Comment on above: Performed By: #### C KYUNG MENON, MG, ADIFF, GFR, CMP, ANEU #### [place] [address] Urea nitrogen [Mass/Vol] 32 mg/dL High 7-18 [facility] Comment on above: Performed By: #### C KYUNG MENON, MG, ADIFF, GFR, CMP, ANEU #### [place] [address] CBCon 02-21-2025 Erythrocyte distribution width (RBC) [Ratio] 15.6 % High 11.5-15.5 [facility] Comment on above: Performed By: #### C KYUNG MENON, MG, ADIFF, GFR, CMP, ANEU #### [place] [address] Hematocrit (Bld) [Volume fraction] 32.6 % Low 40.0-52.0 [facility] Comment on above: Performed By: #### C KYUNG MENON, MG, ADIFF, GFR, CMP, ANEU #### [place] [address] Hgb 10.9 G/dL Low 13.0-17.5 [facility] Comment on above: Performed By: #### C KYUNG MENON, MG, ADIFF, GFR, CMP, ANEU #### [place] [address] MCH (RBC) [Entitic mass] 29.8 pg Normal 27.0-33.0 [facility] Comment on above: Performed By: #### C KYUNG MENON, MG, ADIFF, GFR, CMP, ANEU #### [address] [address] MCHC 33.3 G/dL Normal 32.0-36.0 [facility] Comment on above: Performed By: #### C KYUNG MENON, MG, ADIFF, GFR, CMP, ANEU #### [place] [address] MCV (RBC) [Entitic vol] 89.5 fL Normal 81.0-100.0 [facility] Comment on above: Performed By: #### C KYUNG MENON, MG, ADIFF, GFR, CMP, ANEU #### [address] [address] Platelet 99 10 3/mcL Low 150-450 [facility] Comment on above: Performed By: #### C KYUNG MENON, MG, ADIFF, GFR, CMP, ANEU #### [place] [address] Platelet mean volume (Bld) [Entitic vol] 7.3 fL Normal 6.4-10.5 [facility] Comment on above: Performed By: #### C KYUNG MENON, MG, ADIFF, GFR, CMP, ANEU #### [place] [id number] RBC 3.65 10 6/mcL Low 4.50-6.00 [facility] Comment on above: Performed By: #### C KYUNG MENON, MG, ADIFF, GFR, CMP, ANEU #### [place] [id number] WBC 6.0 10 3/mcL Normal 4.5-10.8 [facility] Comment on above: Performed By: #### C KYUNG MENON, MG, ADIFF, GFR, CMP, ANEU #### [place] [id number] Jimmy 02-21-2025 Fasting Y Yes Normal [facility] Comment on above: Performed By: #### C BC, MDW, MG, ADIFF, GFR, CMP, ANEU #### [place] [address] [place], [place] [address] LABORATORYOrdered By: SYSTEM SYSTEM on 02-21-2025 25-hydroxyvitamin [...] PM) Normal AO Sendouts SS LABORATORYOrdered By: [employer] P CONTRIBUTOR_SYSTEM on 02-21-2025 Gastrin (LC) 113 pg/mL Invalid Interpretation Code AO Sendouts SS Comment on above: Result Comment: [facility] Premier Diagnosticste 2000 Immunochemiluminometric assay (ICMA) Values obtained with different assay methods or kits cannot be used interchangeably. Results cannot be interpreted as absolute evidence of the presence or absence of malignant disease. Performed At: [facility] [id number] Jacques Ferrell MD Ph:[phone] Intrinsic Factor Abs (LC) 0.9 Au/mL Invalid Interpretation Code 0.0-1.1 AO [facility]outs SS Comment on above: Result Comment: Perf ormed At: [employer] [id number] Jacques Ferrell MD Ph:[phone] MGon 02-21-2025 Magnesium [Mass/Vol] 1.9 mg/dL Normal 1.8-2.4 [facility] Comment on above: Performed By: #### C KYUNG MENON, MG, ADIFF, GFR, CMP, ANEU #### [facility] [address] [place], [place] [address] PTHon 02-21-2025 PTH, Intact 170.3 pg/mL High 18.5-88.0 [facility] Comment on above: Performed By: #### C KYUNG MENON, MG, ADIFF, GFR, CMP, ANEU #### [facility] [address] [place], [place] [address] VIDHon 02-21-2025 Vit. D 25-Hydroxy 32.7 ng/mL Normal [facility] Comment on above: Result Comment: Inte rpretive Values Based on Total 25(OH) Vitamin D: Deficient <20 ng/mL Insufficient 20 - <30 ng/mL Sufficient 30-100 ng/mL Performed By: #### C KYUNG MENON, MG, ADIFF, GFR, CMP, ANEU #### [facility] [address] [place], [place] [address] Cardiology Visit Reporton Cardiology Visit Report [facility]. [address] [place] [address] OFFICE VISIT Date of Service: 02/16/25 MR#: [id number] Acct: [id number] Name: EKATERINA RANDHAWA Rep #: [id number] : 1940 Provider: DG Vail Age/Sex: 84/M [...] Intake Visit Reasons: 1 Y FU/PREV P[facility] Summer Internship Required: No Accompanied by: Daughter Is patient [...] 02/16/25 Hi story gram oral powder packet ([facility]) lisinopril 20 mg tablet 20 mg PO [...] infarction Essential hypertension Atherosclerotic heart disease of [place] coronary artery without angina pectoris Postoperative atrial [...] rarely substance use type: does not use arelis/confucianism: Angelica seatbelt use: always ROS Const Const: Positive for fatigue (Increasing last couple months, relates to age); Negative for weakness Eyes Eyes: Negative for change in vision ENT ENT: Negative for dizziness or balance problems Cardio (more content not included)... Normal [facility] Bilirubin directOrdered By: Maryuri Begum on 02-08-2025 Bilirubin.direct [Mass/Vol] 0.26 mg/dL 0.00-0.[address] [facility] Bilirubin, totalOrdered By: Maryuri Begum on 02-08-2025 Bilirubin [Mass/Vol] 0.48 mg/dL 0.00-1.30 [facility] Calculated very low density lipoprotein (VLDL) cholesterol measurementOrdered By: Maryuri Begum on 02-08-2025 Calculated very low density lipoprotein (VLDL) cholesterol measurement 18 mg/dL 5-[address] [facility] LDL calc ser/plasOrdered By: Maryuri Begum on 02-08-2025 Cholesterol in LDL [Mass/Vol] 25 mg/dL [facility] Comment on above: Xsgxchuglo=996-026 m g/dL & Higher Pzmp=666 mg/dL or greater Laboratory - Chemistry and C hemistry - challengeOrdered By: Maryuri Begum on 02-08-2025 AST [Catalytic activity/Vol] 16 U/L <[address] [facility] Lipid Profileon 02-08-2025 CHOL:HDL 2.[address] [facility] Comment on above: Performed By: #### L 500.3400, L500.4100 #### [facility] [address] [place], [address] Cholesterol [Mass/Vol] 80 mg/dL Normal <=200 [facility] Comment on above: Result Comment: Chol esterol level, Desirable <200 mg/dL Borderline high cholesterol 200-239 mg/dL High cholesterol >=240 mg/dL Recommendations of the NCEP Adult Treatment Panel for the following risk-cutoff thresholds for the [place] population. Performed By: #### L 500.3400, L500.4100 #### [facility] [address] [place], [address] Cholesterol in HDL [Mass/Vol] 38 mg/dL Low [facility] Comment on above: Result Comment: Daphney onal Cholesterol Education Program (NCEP) guidelines: <40 mg/dL: Low HDL-cholesterol (major risk factor for CHD) >= 60 mg/dL: High HDL-cholesterol (negative risk factor for CHD) HDL-cholesterol is affected by a number of factors, e.g. smoking, exercise, hormones, sex and age. Performed By: #### L 500.3400, L500.4100 #### [facility] [address] [place], [address] Cholesterol in LDL [Mass/Vol] 25 mg/dL Normal [facility] Comment on above: Result Comment: Bord ahquvx=860-194 mg/dL Higher Cewr=439 mg/dL or greater Performed By: #### L 500.3400, L500.4100 #### [facility] [address] [place], [address] Cholesterol in VLDL [Mass/Vol] 18 mg/dL Normal 5-[address] [facility] Comment on above: Performed By: #### L 500.3400, L500.4100 #### [facility] [address] [place], [address] Triglyceride [Mass/Vol] 89 mg/dL Normal [facility] [place] [facility] Comment on above: Result Comment: The drugs N-Acetylcysteine and Metamizole may falsely depress this assay. Normal range: <150 mg/dL Borderline High: 150-199 mg/dL High: 200-499 mg/dL Very High: >500 mg/dL Performed By: #### L 500.3400, L500.4100 #### [facility] [address], [address] Liver Profileon 02-08-2025 Albumin [Mass/Vol] 3.9 g/dL Normal 3.4-4.8 [facility] Comment on above: Performed By: #### L 500.3400, L500.4100 #### [facility] [address] [place], [address] ALK PHOS 89 U/L Normal 40-[address] [facility] Comment on above: Performed By: #### L 500.3400, L500.4100 #### [facility] [address] [place], [address] ALT [Catalytic activity/Vol] 6 U/L Normal <=[address] [facility] Comment on above: Performed By: #### L 500.3400, L500.4100 #### [facility] [address] [place], [address] AST [Catalytic activity/Vol] 16 U/L Normal <=[address] [facility] Comment on above: Performed By: #### L 500.3400, L500.4100 #### [facility] [address] [place], [address] Bilirubin [Mass/Vol] 0.48 mg/dL Normal 0.00-1.30 [facility] Comment on above: Performed By: #### L 500.3400, L500.4100 #### [facility] [address] [place], [address] Bilirubin.direct [Mass/Vol] 0.26 mg/dL Normal 0.00-0.[address] [facility] Comment on above: Performed By: #### L 500.3400, L500.4100 #### [facility] [address] [place], [address] Globulin (S) [Mass/Vol] 2.5 g/dL Normal 2.2-4.2 [facility] Comment on above: Performed By: #### L 500.3400, L500.4100 #### [facility] [address] [place], [address] T PROT 6.5 g/dL Normal 5.9-8.[address] [facility] Comment on above: Performed By: #### L 500.3400, L500.4100 #### [facility] [address] [place], [address] Screening total cholesterol/ high density lipoprotein (HDL) cholesterol ratioOrdered By: Maryuri Begum on 02-08-2025 Cholesterol.total/Choles terol in HDL [Mass ratio] 2.13 {ratio} [facility] Serum globulin measurementOr dered By: Maryuri Begum on 02-08-2025 Globulin (S) [Mass/Vol] 2.5 g/dL 2.2-4.2 [facility] [place] [facility] Serum or plasma alanine mora otransferase (ALT) measurementOrdered By: Maryuri Begum on 02-08-2025 ALT [Catalytic activity/Vol] 6 U/L <[address] [facility] Serum or plasma albumin francisco urement (mass/volume)Ordered By: Maryuri Begum on 02-08-2025 Albumin [Mass/Vol] 3.9 g/dL 3.4-4.8 [facility] Serum or plasma alkaline edna sphatase measurementOrdered By: Maryuri Begum on 02-08-2025 ALP [Catalytic activity/Vol] 89 U/L 40-[address] [facility] Serum or plasma cholesterol in HDL measurement (mass/volume)Ordered By: Maryuri Begum on 02-08-2025 Cholesterol in HDL [Mass/Vol] 38 mg/dL Low >[address] [facility] Comment on above: National Cholesterol Education Program (NCEP) guidelines:<40 mg/dL: Low HDL-cholesterol (major risk factor for CHD)>= 60 mg/dL: High HDL-cholesterol (negative risk factor for CHD)HDL-cholesterol is affected by a number of factors, e.g. smoking, exercise, hormones, sex and age. Serum or plasma cholesterol measurement (mass/volume)Ordered By: Maryuri Begum on 02-08-2025 Cholesterol [Mass/Vol] 80 mg/dL <201 [facility] Comment on above: Cholesterol level, D esirable <200 mg/dLBorderline high cholesterol 200-239 mg/dLHigh cholesterol >=240 mg/dLRecommendations of the NCEP Adult Treatment Panel for the following risk-cutoff thresholds for the [place] population. Total proteinOrdered By: Terell Begum on 02-08-2025 Protein [Mass/Vol] 6.5 g/dL 5.9-8.4 [facility] Triglycerides measurementOrd ered By: Maryuri Begum on 02-08-2025 Triglyceride [Mass/Vol] 89 mg/dL <199 [facility] [place] [facility] Comment on above: The drugs N-Acetylcy steine and Metamizole may falsely depress this assay. Normal range: <150 mg/dLBorderline High: 150-199 mg/dLHigh: 200-499 mg/dLVery High: >500 mg/dL Neurology Visit Reporton Neurology Visit Report [facility] [address] [facility] [facility], [address] [place] [id number] OFFICE VISIT Date of Service: 11/29/24 MR#: [id number] Acct: [id number] Name: EKATERINA RANDHAWA Rep #: [id number] : 1940 Provider: Dr. 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 He [...] dysfunction (pseudonormal (more content not included)... Normal [facility] Urgent Care Visit Reporton 0 11-16-2024 Urgent Care Visit Report [facility] [address] [place] [address] OFFICE VISIT Date of Service: 11/16/24 MR#: [id number] Acct: [id number] Name: EKATERINA RANDHAWA Rep #: [id number] : 1940 Provider: DG Manning Age/Sex: 84/M Location[facility] Status: Signed Intake Vital Signs 03/02/24 08:13 [...] and on. Patient states he has RLS. 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 Normal [facility] .Auto Diffon 11-01-2024 Basophil, Absolute 0.0 10 3/mcL Normal 0.0-0.2 [facility] Comment on above: Performed By: #### C LYNSEY, KYUNG, MG, ADIFF, GFR, CMP, ANEU #### [address] [address] Basophils/100 WBC (Bld) 0.6 % Normal 0.0-2.5 [facility] Comment on above: Performed By: #### C KYUNG MENON, MG, ADIFF, GFR, CMP, ANEU #### [address] [address] Eosinophil, Absolute 0.2 10 3/mcL Normal 0.0-0.7 [facility] Comment on above: Performed By: #### C KYUNG MENON, MG, ADIFF, GFR, CMP, ANEU #### [address] [address] Eosinophils/100 WBC (Bld) 2.8 % Normal 0.0-7.0 [facility] Comment on above: Performed By: #### C KYUNG MENON, MG, ADIFF, GFR, CMP, ANEU #### [address] [address] Lymphocyte, Absolute 1.6 10 3/mcL Normal 0.9-4.3 [facility] Comment on above: Performed By: #### C KYUNG MENON, MG, ADIFF, GFR, CMP, ANEU #### [address] [address] Lymphocytes/100 WBC (Bld) 25.7 % Normal 20.0-40.0 [facility] Comment on above: Performed By: #### C LYNSEY, W, MG, ADIFF, GFR, CMP, ANEU #### [address] [address] Monocyte, Absolute 0.4 10 3/mcL Normal 0.1-1.4 [facility] Comment on above: Performed By: #### C BC, MDW, MG, ADIFF, GFR, CMP, ANEU #### [address] [address] Monocytes/100 WBC (Bld) 6.6 % Normal 2.0-13.0 [facility] Comment on above: Performed By: #### C LYNSYE, W, MG, ADIFF, GFR, CMP, ANEU #### [address] [address] Neutrophils/100 WBC (Bld) 64.3 % Normal 50.0-75.0 [facility] Comment on above: Performed By: #### C LYNSEY, W, MG, ADIFF, GFR, CMP, ANEU #### [address] [address] .GFRon 11-01-2024 Estimated Glomerular Filtration Rate 27 ml/min/1.73sqm Normal [facility] Comment on above: Result Comment: Stages [...] MDW, MG, ADIFF, GFR, CMP, ANEU #### [address] [address] .NEUABSon 11-01-2024 Neutrophil, Absolute 4.0 10 3/mcL Normal 2.3-8.1 [facility] Comment on above: Performed By: #### C KYUNG MENON, MG, ADIFF, GFR, CMP, ANEU #### [address] [address] BMPon 11-01-2024 BUN/Creatinine Ratio 13 ratio Normal 7-27 [facility] Comment on above: Performed By: #### C KYUNG MENON, MG, ADIFF, GFR, CMP, ANEU #### [address] [address] Calcium [Mass/Vol] 9.7 mg/dL Normal 8.4-10.2 [facility] Comment on above: Performed By: #### C KYUNG MENON, MG, ADIFF, GFR, CMP, ANEU #### [address] [address] Chloride [Moles/Vol] 108 mmol/L High 98-107 [facility] Comment on above: Performed By: #### C KYUNG MENON, MG, ADIFF, GFR, CMP, ANEU #### [address] [address] CO2 [Moles/Vol] 29 mmol/L Normal 23-31 [facility] Comment on above: Performed By: #### C KYUNG MENON, MG, ADIFF, GFR, CMP, ANEU #### [address] [address] Creatinine [Mass/Vol] 2.31 mg/dL High 0.70-1.30 [facility] Comment on above: Result Comment: Test ing performed on Siemens Dimension EXL analyzer using a modified kinetic Sonia technique. Performed By: #### C KYUNG MENON, MG, ADIFF, GFR, CMP, ANEU #### [address] [address] Electrolyte Balance 8.0 mEq/L Normal 4.0-15.0 [facility] Comment on above: Performed By: #### C KYUNG MENON, MG, ADIFF, GFR, CMP, ANEU #### [address] [address] Glucose [Mass/Vol] 111 mg/dL High 83-110 [facility] Comment on above: Performed By: #### C KYUNG MENON, MG, ADIFF, GFR, CMP, ANEU #### [address] [address] Potassium [Moles/Vol] 5.0 mmol/L Normal 3.5-5.1 [facility] Comment on above: Performed By: #### C KYUNG MENON, MG, ADIFF, GFR, CMP, ANEU #### [address] [address] Sodium [Moles/Vol] 145 mmol/L Normal 136-145 [facility] Comment on above: Performed By: #### C KYUNG MENON, MG, ADIFF, GFR, CMP, ANEU #### [place] [address] Urea nitrogen [Mass/Vol] 30 mg/dL High 7-18 [facility] Comment on above: Performed By: #### C KYUNG MENON, MG, ADIFF, GFR, CMP, ANEU #### [address] [address] CBCon 11-01-2024 Erythrocyte distribution width (RBC) [Ratio] 16.6 % High 11.5-15.5 [facility] Comment on above: Performed By: #### C KYUNG MENON, MG, ADIFF, GFR, CMP, ANEU #### [address] [address] Hematocrit (Bld) [Volume fraction] 34.4 % Low 40.0-52.0 [facility] Comment on above: Performed By: #### C KYUNG MENON, MG, ADIFF, GFR, CMP, ANEU #### [address] [address] Hgb 11.5 G/dL Low 13.0-17.5 [facility] Comment on above: Performed By: #### C KYUNG MENON, MG, ADIFF, GFR, CMP, ANEU #### [address] [address] MCH (RBC) [Entitic mass] 29.3 pg Normal 27.0-33.0 [facility] Comment on above: Performed By: #### C KYUNG MENON, MG, ADIFF, GFR, CMP, ANEU #### [address] [address] MCHC 33.4 G/dL Normal 32.0-36.0 [facility] Comment on above: Performed By: #### C KYUNG MENON, MG, ADIFF, GFR, CMP, ANEU #### [place] [address] MCV (RBC) [Entitic vol] 87.9 fL Normal 81.0-100.0 [facility] Comment on above: Performed By: #### C KYUNG MENON, MG, ADIFF, GFR, CMP, ANEU #### [place] [address] Platelet 90 10 3/mcL Low 150-450 [facility] Comment on above: Performed By: #### C KYUNG MENON, MG, ADIFF, GFR, CMP, ANEU #### [address] [address] Platelet mean volume (Bld) [Entitic vol] 7.9 fL Normal 6.4-10.5 [facility] Comment on above: Performed By: #### C KYUNG MENON, MG, ADIFF, GFR, CMP, ANEU #### [address] [address] RBC 3.91 10 6/mcL Low 4.50-6.00 [facility] Comment on above: Performed By: #### C KYUNG MENON, MG, ADIFF, GFR, CMP, ANEU #### [address] [address] WBC 6.2 10 3/mcL Normal 4.5-10.8 [facility] Comment on above: Performed By: #### C BC, MDW, MG, ADIFF, GFR, CMP, ANEU #### [place] [address] LABORATORYOrdered By: Leidy Gomez on 11-01-2024 Creatinine [...] 11-01-2024 PTH, Intact 194.7 pg/mL High 18.5-88.0 [facility] Comment on above: Performed By: #### C KYUNG MENON, MG, ADIFF, GFR, CMP, ANEU #### [address] [address] RPCURon 11-01-2024 U Creatinine 88.0 mg/dL Normal [facility] Comment on above: Performed By: #### R PCUR #### [address] [address] U Protein 26 mg/dL Normal [facility] Comment on above: Performed By: #### R PCUR #### [address] [address] U Ratio Prot/Creat 0.3 ratio Normal [facility] Comment on above: Performed By: #### R PCUR #### [address] [address] URICon 11-01-2024 Uric Acid Lvl 7.2 mg/dL Normal 3.5-7.2 [facility] Comment on above: Performed By: #### C LYNSEY, KYUNG, MG, ADIFF, GFR, CMP, ANEU #### [place] [address] [place], [place] [address] VIDHon 11-01-2024 Vit. D 25-Hydroxy 23.4 ng/mL Normal [facility] Comment on above: Result Comment: Inte rpretive Values Based on Total 25(OH) Vitamin D: Deficient <20 ng/mL Insufficient 20 - <30 ng/mL Sufficient 30-100 ng/mL Performed By: #### C LYNSEY, KYUNG, MG, ADDEMETRIS, GFR, CMP, ANEU #### [place] [address] [place], [place] [address] CNOVSPon 09-12-2024 CNOVSP Visit (SP) Office (HEMAWS) ----- EKATERINA RANDHAWA ([id number]) 1940 M Date Time Provider Department 09/12/24 [...] which included preparing to see the patient, [id number] patient care, completing clinical documentation, obtaining and/or reviewing separately obtained history, counseling and educating the patient/family/caregiver, ordering medications, tests, or procedures, independently interpreting results (not separately reported), and communicating results to the patient/family/caregiver. Electronically Signed: Toney Gutierrez MD September 12, 2024 10:42 AM Referring Provider: JLUIS NICHOLE [[id number]] Allergies As of Date: 09/12/2024 (No Known Allergies) Date Reviewed: 09/12/2024 Reviewed by: Carrie García Ma, MA - Fully Assessed Reason for Visit: New Patient Evaluation [154] Primary Visit Diagnosis:Thrombocytopeni a (HCC) [D69.6] Other Visit Diagnosis:Anemia, unspecified type [D64.9] Order(s):COMPLETE BLOOD COUNT AND DIFFERENTIAL [SQCBCDIF] Order #: [id number] FUTURE ACTIVATED PARTIAL THROMBOPLASTIN TIME [SQPTT] Order #: [id number] FUTURE PROTHROMBIN TIME [SQPT] Order #: [id number] FUTURE Disposition: Return in about 4 months (more content not included)... Normal [facility] .Auto Diffon 08-11-2024 Basophil, Absolute 0.0 10 3/mcL Normal 0.0-0.2 [facility] Comment on above: Performed By: #### C KYUNG MENON, MG, ADIFF, GFR, CMP, ANEU #### [id number] [place], [place] [address] Basophils/100 WBC (Bld) 0.6 % Normal 0.0-2.5 [facility] Comment on above: Performed By: #### C KYUNG MENON, MG, ADIFF, GFR, CMP, ANEU #### [address] [address] Eosinophil, Absolute 0.1 10 3/mcL Normal 0.0-0.7 [facility] Comment on above: Performed By: #### C KYUNG MENON, MG, ADIFF, GFR, CMP, ANEU #### [address] [address] Eosinophils/100 WBC (Bld) 1.6 % Normal 0.0-7.0 [facility] Comment on above: Performed By: #### C KYUNG MENON, MG, ADIFF, GFR, CMP, ANEU #### [address] [address] Lymphocyte, Absolute 1.3 10 3/mcL Normal 0.9-4.3 [facility] Comment on above: Performed By: #### C KYUNG MENON, MG, ADIFF, GFR, CMP, ANEU #### [address] [address] Lymphocytes/100 WBC (Bld) 20.5 % Normal 20.0-40.0 [facility] Comment on above: Performed By: #### C KYUNG MENON, MG, ADIFF, GFR, CMP, ANEU #### [address] [address] Monocyte, Absolute 0.4 10 3/mcL Normal 0.1-1.4 [facility] Comment on above: Performed By: #### C KYUNG MENON, MG, ADIFF, GFR, CMP, ANEU #### [address] [address] Monocytes/100 WBC (Bld) 6.7 % Normal 2.0-13.0 [facility] Comment on above: Performed By: #### C KYUNG MENON, MG, ADIFF, GFR, CMP, ANEU #### [address] [address] Neutrophils/100 WBC (Bld) 70.6 % Normal 50.0-75.0 [facility] Comment on above: Performed By: #### C KYUNG MENON, MG, ADIFF, GFR, CMP, ANEU #### [address] [address] .GFRon 08-11-2024 GFR 33 ml/min/1.73sqm Normal [facility] Comment on above: Result Comment: GFR [...] MENON, MG, ADIFF, GFR, CMP, ANEU #### [address] [address] GFR Non- 27 ml/min/1.73sqm Normal [facility] Comment on above: Result Comment: GFR [...] MENON, MG, ADIFF, GFR, CMP, ANEU #### [address] [address] .NEUABSon 08-11-2024 Neutrophil, Absolute 4.6 10 3/mcL Normal 2.3-8.1 [facility] Comment on above: Performed By: #### C KYUNG MENON, MG, ADIFF, GFR, CMP, ANEU #### [place] [address] B12on 08-11-2024 Cobalamin (Vitamin B12) [Mass/Vol] 360 pg/mL Normal 211-911 [facility] Comment on above: Performed By: #### C KYUNG MENON, MG, ADIFF, GFR, CMP, ANEU #### [place] [address] CBCon 08-11-2024 Erythrocyte distribution width (RBC) [Ratio] 15.2 % Normal 11.5-15.5 [facility] Comment on above: Performed By: #### C KYUNG MENON, MG, ADIFF, GFR, CMP, ANEU #### [place] [address] Hematocrit (Bld) [Volume fraction] 34.5 % Low 40.0-52.0 [facility] Comment on above: Performed By: #### C KYUNG MENON, MG, ADIFF, GFR, CMP, ANEU #### [place] [address] Hgb 11.4 G/dL Low 13.0-17.5 [facility] Comment on above: Performed By: #### C KYUNG MENON, MG, ADIFF, GFR, CMP, ANEU #### [place] [address] MCH (RBC) [Entitic mass] 29.4 pg Normal 27.0-33.0 [facility] Comment on above: Performed By: #### C KYUNG MENON, MG, ADIFF, GFR, CMP, ANEU #### [place] [address] MCHC 33.1 G/dL Normal 32.0-36.0 [facility] Comment on above: Performed By: #### C KYUNG MENON, MG, ADIFF, GFR, CMP, ANEU #### [address] [address] MCV (RBC) [Entitic vol] 88.9 fL Normal 81.0-100.0 [facility] Comment on above: Performed By: #### C LYNSEY, KYUNG, MG, ADIFF, GFR, CMP, ANEU #### [address] [address] Platelet 91 10 3/mcL Low 150-450 [facility] Comment on above: Performed By: #### C LYNSEY, W, MG, ADIFF, GFR, CMP, ANEU #### [address] [address] Platelet mean volume (Bld) [Entitic vol] 7.6 fL Normal 6.4-10.5 [facility] Comment on above: Performed By: #### C KYUNG MENON, MG, ADIFF, GFR, CMP, ANEU #### [address] [address] RBC 3.88 10 6/mcL Low 4.50-6.00 [facility] Comment on above: Performed By: #### C KYUNG MENON, MG, ADIFF, GFR, CMP, ANEU #### [address] [address] WBC 6.5 10 3/mcL Normal 4.5-10.8 [facility] Comment on above: Performed By: #### C KYUNG MENON, MG, ADIFF, GFR, CMP, ANEU #### [address] [address] CMPon 08-11-2024 Albumin Level 4.0 G/dL Normal 3.4-4.8 [facility] Comment on above: Performed By: #### C KYUNG MENON, MG, ADIFF, GFR, CMP, ANEU #### [address] [address] Albumin/Globulin [Mass ratio] 1.7 {ratio} Normal 1.1-2.5 [facility] Comment on above: Performed By: #### C KYUNG MENON, MG, ADIFF, GFR, CMP, ANEU #### [address] [address] ALP [Catalytic activity/Vol] 72 U/L Normal 40-135 [facility] Comment on above: Performed By: #### C KYUNG MENON, MG, ADIFF, GFR, CMP, ANEU #### [address] [address] ALT [Catalytic activity/Vol] 17 U/L Normal 16-63 [facility] Comment on above: Performed By: #### C KYUNG MENON, MG, ADIFF, GFR, CMP, ANEU #### [place] [address] AST [Catalytic activity/Vol] 14 U/L Normal 10-40 [facility] Comment on above: Performed By: #### C KYUNG MENON, MG, ADIFF, GFR, CMP, ANEU #### [place] [address] [address] Bili Total 0.7 mg/dL Normal 0.2-1.0 [facility] Comment on above: Result Comment: Use of this assay is not recommended for patients undergoing treatment with eltrombopag due to the potential for falsely elevated results. Performed By: #### C KYUNG MENON, MG, ADIFF, GFR, CMP, ANEU #### [address] [address] BUN/Creatinine Ratio 12 ratio Normal 7-27 [facility] Comment on above: Performed By: #### C KYUNG MENON, MG, ADIFF, GFR, CMP, ANEU #### [address] [address] Calcium [Mass/Vol] 8.9 mg/dL Normal 8.4-10.2 [facility] Comment on above: Performed By: #### C KYUNG MENON, MG, ADIFF, GFR, CMP, ANEU #### [address] [address] Chloride [Moles/Vol] 107 mmol/L Normal 98-107 [facility] Comment on above: Performed By: #### C LYNSEY, W, MG, ADIFF, GFR, CMP, ANEU #### [address] [address] CO2 [Moles/Vol] 26 mmol/L Normal 23-31 [facility] Comment on above: Performed By: #### C LYNSEY, W, MG, ADIFF, GFR, CMP, ANEU #### [place] [address] [id number] Creatinine [Mass/Vol] 2.31 mg/dL High 0.70-1.30 [facility] Comment on above: Result Comment: Test ing performed on Siemens Dimension EXL analyzer using a modified kinetic Sonia technique. Performed By: #### C LYNSEY, W, MG, ADIFF, GFR, CMP, ANEU #### [place] [address] Electrolyte Balance 9.0 mEq/L Normal 4.0-15.0 [facility] Comment on above: Performed By: #### C LYNSEY, KYUNG, MG, ADIFF, GFR, CMP, ANEU #### [place] [address] Globulin 2.4 G/dL Normal [facility] Comment on above: Performed By: #### C LYNESY, W, MG, ADIFF, GFR, CMP, ANEU #### [place] [address] Glucose [Mass/Vol] 111 mg/dL High 83-110 [facility] Comment on above: Performed By: #### C LYNSEY, W, MG, ADIFF, GFR, CMP, ANEU #### [address] [address] Potassium [Moles/Vol] 4.7 mmol/L Normal 3.5-5.1 [facility] Comment on above: Performed By: #### C LYNSEY, W, MG, ADIFF, GFR, CMP, ANEU #### [place] [address] Sodium [Moles/Vol] 142 mmol/L Normal 136-145 [facility] Comment on above: Performed By: #### C KYUNG MENON, MG, ADIFF, GFR, CMP, ANEU #### [address] [address] Total Protein 6.4 G/dL Normal 6.4-8.2 [facility] Comment on above: Performed By: #### C KYUNG MENON, MG, ADIFF, GFR, CMP, ANEU #### [address] [address] Urea nitrogen [Mass/Vol] 28 mg/dL High 7-18 [facility] Comment on above: Performed By: #### C KYUNG MENON, MG, ADIFF, GFR, CMP, ANEU #### [address] [address] Jose 08-11-2024 Ferritin [Mass/Vol] 28.0 ng/mL Normal 26.0-388.0 [facility] Comment on above: Performed By: #### C KYUNG MENON, MG, ADIFF, GFR, CMP, ANEU #### [address] [address] FESon 08-11-2024 Iron [Mass/Vol] 83 ug/dL Normal 65-175 [facility] Comment on above: Performed By: #### C KYUNG MENON, MG, ADIFF, GFR, CMP, ANEU #### [address] [address] Iron Sat 26 % Normal [facility] Comment on above: Performed By: #### C KYUNG MENON, MG, ADIFF, GFR, CMP, ANEU #### [address] [address] TIBC 316 mcg/dL Normal 250-450 [facility] Comment on above: Performed By: #### C KYUNG MENON, MG, ADIFF, GFR, CMP, ANEU #### [address] [address] HCVon 08-11-2024 Hep C Ab Non-Reactive Normal Non-Reacti ve [facility] Comment on above: Performed By: #### C LYNSEY, W, MG, ADIFF, GFR, CMP, ANEU #### [id number] [place], [place] [address] Hep C Ab Int Normal [facility] Comment on above: Result Comment: Nonr [...] KYUNG, MG, ADIFF, GFR, CMP, ANEU #### [id number] [place], [place] [address] LABORATORYOrdered By: SYSTEM SYSTEM on 08-11-2024 Albumin [...] 08-11-2024 Cholesterol [Mass/Vol] 78 mg/dL Normal 0-200 [facility] Comment on above: Result Comment: Chol esterol Reference Interval: Less than 200 Desirable 200-239 Borderline high risk 240 and above High risk Performed By: #### C KYUNG MENON, MG, ADIFF, GFR, CMP, ANEU #### [address] [address] Cholesterol in HDL [Mass/Vol] 35 mg/dL Low 40-60 [facility] Comment on above: Performed By: #### C KYUNG MENON, MG, ADIFF, GFR, CMP, ANEU #### [address] [address] Cholesterol in LDL [Mass/Vol] 27 mg/dL Normal 0-130 [facility] Comment on above: Performed By: #### C KYUNG MENON, MG, ADIFF, GFR, CMP, ANEU #### [address] [address] Triglyceride [Mass/Vol] 79 mg/dL Normal 0-150 [facility] Comment on above: Result Comment: Trig lyceride Reference Interval: Less than 150 Normal 150-199 Borderline high risk 200-499 High risk 500 or higher Very high risk Performed By: #### C KYUNG MENON, MG, ADIFF, GFR, CMP, ANEU #### [address] [address] MGon 08-11-2024 Magnesium [Mass/Vol] 1.7 mg/dL Low 1.8-2.4 [facility] Comment on above: Performed By: #### C KYUNG MENON, MG, ADIFF, GFR, CMP, ANEU #### [address] [address] PBNPon 08-11-2024 Natriuretic peptide B (Bld) [Mass/Vol] 1518 pg/mL High 0-450 [facility] Comment on above: Result Comment: NT-p roBNP results of less than 300 pg/mL effectively rules out acute congestive heart failure with 99% negative predictive value. Performed By: #### C BC, MDW, MG, ADIFF, GFR, CMP, ANEU #### [id number] [place], [place] [address] LABORATORYOrdered By: SYSTEM SYSTEM on 07-07-2024 25-hydroxyvitamin [...] 0.1 10 3/mcL Normal 0.0-0.2 [facility] ([place]) Comment on above: Performed By: #### A DIFF, BMP, ANEU, VIDH, URIC, CBC, GFR #### [place] [address] #### PTH #### [address] [address] Basophils/100 WBC (Bld) 0.7 % Normal 0.0-2.5 [facility] ([place]) Comment on above: Performed By: #### A DIFF, BMP, ANEU, VIDH, URIC, CBC, GFR #### [place] [address] #### PTH #### [address] [address] Eosinophil, Absolute 0.2 10 3/mcL Normal 0.0-0.4 [facility] ([place]) Comment on above: Performed By: #### A DIFF, BMP, ANEU, VIDH, URIC, CBC, GFR #### [place] [address] #### PTH #### [address] [address] Eosinophils/100 WBC (Bld) 2.1 % Normal 0.0-7.0 [facility] ([place]) Comment on above: Performed By: #### A DIFF, BMP, ANEU, VIDH, URIC, CBC, GFR #### [place] [address] #### PTH #### [address] [address] Lymphocyte, Absolute 2.0 10 3/mcL Normal 0.8-3.9 [facility] ([place]) Comment on above: Performed By: #### A DIFF, BMP, ANEU, VIDH, URIC, CBC, GFR #### [place] [address] #### PTH #### [address] [address] Lymphocytes/100 WBC (Bld) 25.0 % Normal 10.0-50.0 [facility] ([place]) Comment on above: Performed By: #### A DIFF, BMP, ANEU, VIDH, URIC, CBC, GFR #### [address] [address] #### PTH #### [address] [address] Monocyte, Absolute 0.5 10 3/mcL Normal 0.2-1.0 [facility] ([place]) Comment on above: Performed By: #### A DIFF, BMP, ANEU, VIDH, URIC, CBC, GFR #### [address] [address] #### PTH #### [address] [address] Monocytes/100 WBC (Bld) 6.0 % Normal 1.7-13.0 [facility] ([place]) Comment on above: Performed By: #### A DIFF, BMP, ANEU, VIDH, URIC, CBC, GFR #### [address] [address] #### PTH #### [address] [address] Neutrophils/100 WBC (Bld) 66.2 % Normal 37.0-80.0 [facility] ([place]) Comment on above: Performed By: #### A DIFF, BMP, ANEU, VIDH, URIC, CBC, GFR #### [address] [address] #### PTH #### [address] [address] .GFRon 02-21-2024 GFR Non- 21 ml/min/1.73sqm Normal [facility] ([place]) Comment on above: Result Comment: GFR [...] BMP, ANEU, VIDH, URIC, CBC, GFR #### [address] [address] #### PTH #### [address] [address] GFR 26 ml/min/1.73sqm Normal [facility] ([place]) Comment on above: Result Comment: GFR Population [...] BMP, ANEU, VIDH, URIC, CBC, GFR #### [address] [address] #### PTH #### [address] [address] .NEUABSon 02-21-2024 Neutrophil, Absolute 5.2 10 3/mcL Normal 2.9-6.2 [facility] ([place]) Comment on above: Performed By: #### A DIFF, BMP, ANEU, VIDH, URIC, CBC, GFR #### [address] [address] #### PTH #### [address] [address] BMPon 02-21-2024 BUN/Creatinine Ratio 13 ratio Normal 7-27 [facility] ([place] Comment on above: Performed By: #### A DIFF, BMP, ANEU, VIDH, URIC, CBC, GFR #### [address] [address] #### PTH #### [address] [address] Calcium [Mass/Vol] 10.1 mg/dL Normal 8.4-10.2 [facility] ([place]) Comment on above: Performed By: #### A DIFF, BMP, ANEU, VIDH, URIC, CBC, GFR #### [address] [address] #### PTH #### [place] [address] Chloride [Moles/Vol] 105 mmol/L Normal 98-107 [facility] ([place]) Comment on above: Performed By: #### A DIFF, BMP, ANEU, VIDH, URIC, CBC, GFR #### [address] [address] #### PTH #### [place] [address] CO2 [Moles/Vol] 29 mmol/L Normal 23-31 [facility] ([place]) Comment on above: Performed By: #### A DIFF, BMP, ANEU, VIDH, URIC, CBC, GFR #### [address] [address] #### PTH #### [address] [address] Creatinine [Mass/Vol] 2.85 mg/dL High 0.70-1.30 [facility] ([place]) Comment on above: Performed By: #### A DIFF, BMP, ANEU, VIDH, URIC, CBC, GFR #### [address] [address] #### PTH #### [address] [address] Electrolyte Balance 8.0 mEq/L Normal 4.0-15.0 [facility] ([place]) Comment on above: Performed By: #### A DIFF, BMP, ANEU, VIDH, URIC, CBC, GFR #### [address] [address] #### PTH #### [address] [address] Glucose [Mass/Vol] 120 mg/dL High 83-110 [facility] ([place] Comment on above: Performed By: #### A DIFF, BMP, ANEU, VIDH, URIC, CBC, GFR #### [address] [address] #### PTH #### [address] [address] Potassium [Moles/Vol] 5.0 mmol/L Normal 3.5-5.1 [facility] ([place]) Comment on above: Performed By: #### A DIFF, BMP, ANEU, VIDH, URIC, CBC, GFR #### [address] [address] #### PTH #### [place] [address] Sodium [Moles/Vol] 142 mmol/L Normal 136-145 [facility] ([place] Comment on above: Performed By: #### A DIFF, BMP, ANEU, VIDH, URIC, CBC, GFR #### [address] [address] #### PTH #### [address] [address] Urea nitrogen [Mass/Vol] 36 mg/dL High 7-18 [facility] ([place]) Comment on above: Performed By: #### A DIFF, BMP, ANEU, VIDH, URIC, CBC, GFR #### [address] [address] #### PTH #### [address] [address] CBCon 02-21-2024 Erythrocyte distribution width (RBC) [Ratio] 14.8 % High 11.5-14.5 [facility] ([place]) Comment on above: Performed By: #### A DIFF, BMP, ANEU, VIDH, URIC, CBC, GFR #### [place] [address] #### PTH #### [place] [address] Hematocrit (Bld) [Volume fraction] 34.7 % Low 42.0-52.0 [facility] ([place]) Comment on above: Performed By: #### A DIFF, BMP, ANEU, VIDH, URIC, CBC, GFR #### [place] [address] #### PTH #### [place] [address] Hgb 11.4 G/dL Low 14.0-18.0 [facility] ([place]) Comment on above: Performed By: #### A DIFF, BMP, ANEU, VIDH, URIC, CBC, GFR #### [place] [address] #### PTH #### [place] [address] MCH (RBC) [Entitic mass] 28.3 pg Normal 27.0-31.2 [facility] ([place]) Comment on above: Performed By: #### A DIFF, BMP, ANEU, VIDH, URIC, CBC, GFR #### [place] [address] #### PTH #### [place] [address] MCHC 32.8 G/dL Normal 31.8-35.4 [facility] ([place]) Comment on above: Performed By: #### A DIFF, BMP, ANEU, VIDH, URIC, CBC, GFR #### [place] [address] #### PTH #### [place] [address] MCV (RBC) [Entitic vol] 86.4 fL Normal 80.0-94.0 [facility] ([place]) Comment on above: Performed By: #### A DIFF, BMP, ANEU, VIDH, URIC, CBC, GFR #### [place] [address] #### PTH #### [place] [address] Platelet 93 10 3/mcL Low 130-400 [facility] ([place]) Comment on above: Performed By: #### A DIFF, BMP, ANEU, VIDH, URIC, CBC, GFR #### [place] [address] #### PTH #### [place] [address] Platelet mean volume (Bld) [Entitic vol] 8.2 fL Normal 7.4-10.4 [facility] ([place]) Comment on above: Performed By: #### A DIFF, BMP, ANEU, VIDH, URIC, CBC, GFR #### [place] [address] #### PTH #### [place] [address] RBC 4.01 10 6/mcL Low 4.04-6.13 [facility] ([place]) Comment on above: Performed By: #### A DIFF, BMP, ANEU, VIDH, URIC, CBC, GFR #### [place] [address] #### PTH #### [place] [address] WBC 7.8 10 3/mcL Normal 4.6-10.8 [facility] ([place]) Comment on above: Performed By: #### A DIFF, BMP, ANEU, VIDH, URIC, CBC, GFR #### [place] [address] #### PTH #### [place] [address] CRURon 02-21-2024 U Creatinine 98.9 mg/dL Normal 39.0-259.0 [facility] ([place]) Comment on above: Performed By: #### A DIFF, BMP, ANEU, VIDH, URIC, CBC, GFR #### [place] [id number] [place], [place] [address] #### PTH #### [address] [address] LABORATORYOrdered By: SYSTEM SYSTEM on 02-21-2024 Creatinine [...] Protein 18 mg/dL High 0-11 [facility] ([place]) Comment on above: Performed By: #### A DIFF, BMP, ANEU, VIDH, URIC, CBC, GFR #### [place] [id number] [place], [place] [address] #### PTH #### [address] [address] PTHon 02-21-2024 PTH, Intact 32.4 pg/mL Normal 18.5-88.0 [facility] ([place]) Comment on above: Performed By: #### A DIFF, BMP, ANEU, VIDH, URIC, CBC, GFR #### [address] [address] #### PTH #### [place] [address] URICon 02-21-2024 Uric Acid Lvl 8.8 mg/dL High 3.5-7.2 [facility] ([place]) Comment on above: Performed By: #### A DIFF, BMP, ANEU, VIDH, URIC, CBC, GFR #### [place] [address] #### PTH #### [place] [address] VIDHon 02-21-2024 Vit. D 25-Hydroxy 24.2 ng/mL Normal [facility] ([place]) Comment on above: Result Comment: Inte rpretive Values Based on Total 25(OH) Vitamin D: Deficient <20 ng/mL Insufficient 20 - <30 ng/mL Sufficient 30-100 ng/mL Performed By: #### A DIFF, BMP, ANEU, VIDH, URIC, CBC, GFR #### [place] [address] #### PTH #### [address] [address] .Auto Diffon 10-27-2023 Basophil, Absolute 0.1 10 3/mcL Normal 0.0-0.2 [facility] ([place]) Comment on above: Performed By: #### A DIFF, BMP, ANEU, VIDH, URIC, CBC, GFR #### [address] [address] #### PTH #### [address] [address] Basophils/100 WBC (Bld) 0.8 % Normal 0.0-2.5 [facility] ([place]) Comment on above: Performed By: #### A DIFF, BMP, ANEU, VIDH, URIC, CBC, GFR #### [address] [address] #### PTH #### [address] [address] Eosinophil, Absolute 0.2 10 3/mcL Normal 0.0-0.4 [facility] ([place]) Comment on above: Performed By: #### A DIFF, BMP, ANEU, VIDH, URIC, CBC, GFR #### [address] [address] #### PTH #### [address] [address] Eosinophils/100 WBC (Bld) 3.1 % Normal 0.0-7.0 [facility] ([place]) Comment on above: Performed By: #### A DIFF, BMP, ANEU, VIDH, URIC, CBC, GFR #### [address] [address] #### PTH #### [address] [address] Lymphocyte, Absolute 1.9 10 3/mcL Normal 0.8-3.9 [facility] ([place]) Comment on above: Performed By: #### A DIFF, BMP, ANEU, VIDH, URIC, CBC, GFR #### [address] [address] #### PTH #### [address] [address] Lymphocytes/100 WBC (Bld) 26.5 % Normal 10.0-50.0 [facility] ([place]) Comment on above: Performed By: #### A DIFF, BMP, ANEU, VIDH, URIC, CBC, GFR #### [address] [address] #### PTH #### [address] [address] Monocyte, Absolute 0.4 10 3/mcL Normal 0.2-1.0 [facility] ([place]) Comment on above: Performed By: #### A DIFF, BMP, ANEU, VIDH, URIC, CBC, GFR #### [address] [address] #### PTH #### [address] [address] Monocytes/100 WBC (Bld) 6.0 % Normal 1.7-13.0 [facility] ([place]) Comment on above: Performed By: #### A DIFF, BMP, ANEU, VIDH, URIC, CBC, GFR #### [address] [address] #### PTH #### [address] [address] Neutrophils/100 WBC (Bld) 63.6 % Normal 37.0-80.0 [facility] ([place]) Comment on above: Performed By: #### A DIFF, BMP, ANEU, VIDH, URIC, CBC, GFR #### [address] [address] #### PTH #### [address] [address] .GFRon 10-27-2023 GFR 29 ml/min/1.73sqm Normal [facility] ([place]) Comment on above: Result Comment: GFR [...] BMP, ANEU, VIDH, URIC, CBC, GFR #### [address] [address] #### PTH #### [address] [address] GFR Non- 24 ml/min/1.73sqm Normal [facility] ([place]) Comment on above: Result Comment: GFR Population [...] BMP, ANEU, VIDH, URIC, CBC, GFR #### [place] [address] #### PTH #### [address] [address] .NEUABSon 10-27-2023 Neutrophil, Absolute 4.5 10 3/mcL Normal 2.9-6.2 [facility] ([place]) Comment on above: Performed By: #### A DIFF, BMP, ANEU, VIDH, URIC, CBC, GFR #### [place] [address] #### PTH #### [address] [address] BMPon 10-27-2023 BUN/Creatinine Ratio 13 ratio Normal 7-27 [facility] ([place]) Comment on above: Performed By: #### A DIFF, BMP, ANEU, VIDH, URIC, CBC, GFR #### [address] [address] #### PTH #### [address] [address] Calcium [Mass/Vol] 9.6 mg/dL Normal 8.4-10.2 [facility] ([place] Comment on above: Performed By: #### A DIFF, BMP, ANEU, VIDH, URIC, CBC, GFR #### [place] [id number] #### PTH #### [address] [address] Chloride [Moles/Vol] 107 mmol/L Normal 98-107 [facility] ([place]) Comment on above: Performed By: #### A DIFF, BMP, ANEU, VIDH, URIC, CBC, GFR #### [address] [address] #### PTH #### [address] [address] CO2 [Moles/Vol] 29 mmol/L Normal 23-31 [facility] ([place]) Comment on above: Performed By: #### A DIFF, BMP, ANEU, VIDH, URIC, CBC, GFR #### [place] [address] #### PTH #### [address] [address] Creatinine [Mass/Vol] 2.58 mg/dL High 0.70-1.30 [facility] ([place]) Comment on above: Performed By: #### A DIFF, BMP, ANEU, VIDH, URIC, CBC, GFR #### [place] [address] #### PTH #### [address] [address] Electrolyte Balance 7.0 mEq/L Normal 4.0-15.0 [facility] ([place]) Comment on above: Performed By: #### A DIFF, BMP, ANEU, VIDH, URIC, CBC, GFR #### [place] [address] #### PTH #### [address] [address] Glucose [Mass/Vol] 113 mg/dL High 83-110 [facility] ([place]) Comment on above: Performed By: #### A DIFF, BMP, ANEU, VIDH, URIC, CBC, GFR #### [place] [address] #### PTH #### [address] [address] Potassium [Moles/Vol] 4.0 mmol/L Normal 3.5-5.1 [facility] ([place]) Comment on above: Performed By: #### A DIFF, BMP, ANEU, VIDH, URIC, CBC, GFR #### [address] [address] #### PTH #### [address] [address] Sodium [Moles/Vol] 143 mmol/L Normal 136-145 [facility] ([place] Comment on above: Performed By: #### A DIFF, BMP, ANEU, VIDH, URIC, CBC, GFR #### [address] [address] #### PTH #### [address] [address] Urea nitrogen [Mass/Vol] 34 mg/dL High 7-18 [facility] ([place]) Comment on above: Performed By: #### A DIFF, BMP, ANEU, VIDH, URIC, CBC, GFR #### [address] [address] #### PTH #### [address] [address] CBCon 10-27-2023 Erythrocyte distribution width (RBC) [Ratio] 15.1 % High 11.5-14.5 [facility] ([place]) Comment on above: Performed By: #### A DIFF, BMP, ANEU, VIDH, URIC, CBC, GFR #### [address] [address] #### PTH #### [address] [address] Hematocrit (Bld) [Volume fraction] 32.2 % Low 42.0-52.0 [facility] ([place]) Comment on above: Performed By: #### A DIFF, BMP, ANEU, VIDH, URIC, CBC, GFR #### [address] [address] #### PTH #### [address] [address] Hgb 10.9 G/dL Low 14.0-18.0 [facility] ([place]) Comment on above: Performed By: #### A DIFF, BMP, ANEU, VIDH, URIC, CBC, GFR #### [place] [address] #### PTH #### [place] [address] MCH (RBC) [Entitic mass] 29.1 pg Normal 27.0-31.2 [facility] ([place]) Comment on above: Performed By: #### A DIFF, BMP, ANEU, VIDH, URIC, CBC, GFR #### [place] [address] #### PTH #### [place] [address] MCHC 33.8 G/dL Normal 31.8-35.4 [facility] ([place]) Comment on above: Performed By: #### A DIFF, BMP, ANEU, VIDH, URIC, CBC, GFR #### [place] [address] #### PTH #### [place] [address] MCV (RBC) [Entitic vol] 86.0 fL Normal 80.0-94.0 [facility] ([place]) Comment on above: Performed By: #### A DIFF, BMP, ANEU, VIDH, URIC, CBC, GFR #### [place] [address] #### PTH #### [place] [address] Platelet 101 10 3/mcL Low 130-400 [facility] ([place]) Comment on above: Performed By: #### A DIFF, BMP, ANEU, VIDH, URIC, CBC, GFR #### [place] [address] #### PTH #### [place] [address] Platelet mean volume (Bld) [Entitic vol] 7.7 fL Normal 7.4-10.4 [facility] ([place]) Comment on above: Performed By: #### A DIFF, BMP, ANEU, VIDH, URIC, CBC, GFR #### [place] [address] #### PTH #### [place] [address] RBC 3.74 10 6/mcL Low 4.04-6.13 [facility] ([place]) Comment on above: Performed By: #### A DIFF, BMP, ANEU, VIDH, URIC, CBC, GFR #### [place] [address] #### PTH #### [place] [address] WBC 7.0 10 3/mcL Normal 4.6-10.8 [facility] ([place]) Comment on above: Performed By: #### A DIFF, BMP, ANEU, VIDH, URIC, CBC, GFR #### [place] [address] #### PTH #### [place] [address] CRURon 10-27-2023 U Creatinine 107.8 mg/dL Normal 39.0-259.0 [facility] ([place]) Comment on above: Performed By: #### A DIFF, BMP, ANEU, VIDH, URIC, CBC, GFR #### [place] [address] #### PTH #### [place] [address] PRURon 10-27-2023 U Protein 22 mg/dL High 0-11 [facility] ([place]) Comment on above: Performed By: #### A DIFF, BMP, ANEU, VIDH, URIC, CBC, GFR #### [place] [address] #### PTH #### [place] [address] PTHon 10-27-2023 PTH, Intact 48.1 pg/mL Normal 18.5-88.0 [facility] ([place]) Comment on above: Performed By: #### A DIFF, BMP, ANEU, VIDH, URIC, CBC, GFR #### [address] [address] #### PTH #### [place] [address] URICon 10-27-2023 Uric Acid Lvl 8.0 mg/dL High 3.5-7.2 [facility] ([place]) Comment on above: Performed By: #### A DIFF, BMP, ANEU, VIDH, URIC, CBC, GFR #### [place] [address] #### PTH #### [place] [address] VIDHon 10-27-2023 Vit. D 25-Hydroxy 29.2 ng/mL Normal [facility] ([place]) Comment on above: Result Comment: Inte rpretive Values Based on Total 25(OH) Vitamin D: Deficient <20 ng/mL Insufficient 20 - <30 ng/mL Sufficient 30-100 ng/mL Performed By: #### A DIFF, BMP, ANEU, VIDH, URIC, CBC, GFR #### [place] [address] #### PTH #### [place] [address] VIDDHon 06-10-2023 Vit. D 1,25 Dihydro. 25.6 pg/mL Normal 19.9-79.3 [facility] ([place]) Comment on above: Result Comment: Perf ormed By: [facility] [place] [address] [place] [address] Jacquard Lace Weaver: Matthew Cheek III#: [id number] Performed By: #### A DIFF, BMP, ANEU, VIDH, URIC, CBC, GFR #### [address] [address] #### PTH #### [place] [address] .Auto Diffon 06-09-2023 Basophil, Absolute 0.1 10 3/mcL Normal 0.0-0.2 [facility] ([place]) Comment on above: Performed By: #### A DIFF, BMP, ANEU, VIDH, URIC, CBC, GFR #### [address] [address] #### PTH #### [address] [address] Basophils/100 WBC (Bld) 0.8 % Normal 0.0-2.5 [facility] ([place]) Comment on above: Performed By: #### A DIFF, BMP, ANEU, VIDH, URIC, CBC, GFR #### [address] [address] #### PTH #### [address] [address] Eosinophil, Absolute 0.3 10 3/mcL Normal 0.0-0.4 [facility] ([place]) Comment on above: Performed By: #### A DIFF, BMP, ANEU, VIDH, URIC, CBC, GFR #### [address] [address] #### PTH #### [address] [address] Eosinophils/100 WBC (Bld) 3.8 % Normal 0.0-7.0 [facility] ([place]) Comment on above: Performed By: #### A DIFF, BMP, ANEU, VIDH, URIC, CBC, GFR #### [address] [address] #### PTH #### [address] [address] Lymphocyte, Absolute 1.9 10 3/mcL Normal 0.8-3.9 [facility] ([place]) Comment on above: Performed By: #### A DIFF, BMP, ANEU, VIDH, URIC, CBC, GFR #### [address] [address] #### PTH #### [address] [address] Lymphocytes/100 WBC (Bld) 27.1 % Normal 10.0-50.0 [facility] ([place]) Comment on above: Performed By: #### A DIFF, BMP, ANEU, VIDH, URIC, CBC, GFR #### [address] [address] #### PTH #### [address] [address] Monocyte, Absolute 0.4 10 3/mcL Normal 0.2-1.0 [facility] ([place]) Comment on above: Performed By: #### A DIFF, BMP, ANEU, VIDH, URIC, CBC, GFR #### [address] [address] #### PTH #### [address] [address] Monocytes/100 WBC (Bld) 5.6 % Normal 1.7-13.0 [facility] ([place]) Comment on above: Performed By: #### A DIFF, BMP, ANEU, VIDH, URIC, CBC, GFR #### [address] [address] #### PTH #### [address] [address] Neutrophils/100 WBC (Bld) 62.7 % Normal 37.0-80.0 [facility] ([place]) Comment on above: Performed By: #### A DIFF, BMP, ANEU, VIDH, URIC, CBC, GFR #### [address] [address] #### PTH #### [address] [address] .GFRon 06-09-2023 GFR Non- 20 ml/min/1.73sqm Normal [facility] ([place]) Comment on above: Result Comment: GFR Population [...] BMP, ANEU, VIDH, URIC, CBC, GFR #### [address] [address] #### PTH #### [address] [address] GFR 25 ml/min/1.73sqm Normal [facility] ([place]) Comment on above: Result Comment: GFR Population [...] BMP, ANEU, VIDH, URIC, CBC, GFR #### [address] [address] #### PTH #### [address] [address] .NEUABSon 06-09-2023 Neutrophil, Absolute 4.3 10 3/mcL Normal 2.9-6.2 [facility] ([place]) Comment on above: Performed By: #### A DIFF, BMP, ANEU, VIDH, URIC, CBC, GFR #### [address] [address] #### PTH #### [address] [address] BMPon 06-09-2023 BUN/Creatinine Ratio 11 ratio Normal 7-27 [facility] ([place]) Comment on above: Performed By: #### A DIFF, BMP, ANEU, VIDH, URIC, CBC, GFR #### [address] [address] #### PTH #### [address] [address] Calcium [Mass/Vol] 9.8 mg/dL Normal 8.4-10.2 [facility] ([place]) Comment on above: Performed By: #### A DIFF, BMP, ANEU, VIDH, URIC, CBC, GFR #### [place] [address] #### PTH #### [place] [address] Chloride [Moles/Vol] 107 mmol/L Normal 98-107 [facility] ([place]) Comment on above: Performed By: #### A DIFF, BMP, ANEU, VIDH, URIC, CBC, GFR #### [place] [address] #### PTH #### [address] [address] CO2 [Moles/Vol] 31 mmol/L Normal 23-31 [facility] ([place]) Comment on above: Performed By: #### A DIFF, BMP, ANEU, VIDH, URIC, CBC, GFR #### [address] [address] #### PTH #### [place] [address] Creatinine [Mass/Vol] 2.98 mg/dL High 0.70-1.30 [facility] ([place]) Comment on above: Performed By: #### A DIFF, BMP, ANEU, VIDH, URIC, CBC, GFR #### [place] [address] #### PTH #### [address] [address] Electrolyte Balance 6.0 mEq/L Normal 4.0-15.0 [facility] ([place]) Comment on above: Performed By: #### A DIFF, BMP, ANEU, VIDH, URIC, CBC, GFR #### [address] [address] #### PTH #### [address] [address] Glucose [Mass/Vol] 106 mg/dL Normal 83-110 [facility] ([place] Comment on above: Performed By: #### A DIFF, BMP, ANEU, VIDH, URIC, CBC, GFR #### [place] [address] #### PTH #### [address] [address] Potassium [Moles/Vol] 5.0 mmol/L Normal 3.5-5.1 [facility] ([place]) Comment on above: Performed By: #### A DIFF, BMP, ANEU, VIDH, URIC, CBC, GFR #### [place] [address] #### PTH #### [address] [address] Sodium [Moles/Vol] 144 mmol/L Normal 136-145 [facility] ([place] Comment on above: Performed By: #### A DIFF, BMP, ANEU, VIDH, URIC, CBC, GFR #### [place] [address] #### PTH #### [address] [address] Urea nitrogen [Mass/Vol] 32 mg/dL High 7-18 [facility] ([place]) Comment on above: Performed By: #### A DIFF, BMP, ANEU, VIDH, URIC, CBC, GFR #### [place] [address] #### PTH #### [address] [address] CBCon 06-09-2023 Erythrocyte distribution width (RBC) [Ratio] 15.0 % High 11.5-14.5 [facility] ([place]) Comment on above: Performed By: #### A DIFF, BMP, ANEU, VIDH, URIC, CBC, GFR #### [place] [address] #### PTH #### [place] [address] Hematocrit (Bld) [Volume fraction] 32.1 % Low 42.0-52.0 [facility] ([place]) Comment on above: Performed By: #### A DIFF, BMP, ANEU, VIDH, URIC, CBC, GFR #### [place] [address] #### PTH #### [place] [address] Hgb 10.7 G/dL Low 14.0-18.0 [facility] ([place]) Comment on above: Performed By: #### A DIFF, BMP, ANEU, VIDH, URIC, CBC, GFR #### [place] [address] #### PTH #### [place] [address] MCH (RBC) [Entitic mass] 29.1 pg Normal 27.0-31.2 [facility] ([place]) Comment on above: Performed By: #### A DIFF, BMP, ANEU, VIDH, URIC, CBC, GFR #### [place] [address] #### PTH #### [place] [address] MCHC 33.4 G/dL Normal 31.8-35.4 [facility] ([place]) Comment on above: Performed By: #### A DIFF, BMP, ANEU, VIDH, URIC, CBC, GFR #### [place] [address] #### PTH #### [place] [address] MCV (RBC) [Entitic vol] 86.9 fL Normal 80.0-94.0 [facility] ([place]) Comment on above: Performed By: #### A DIFF, BMP, ANEU, VIDH, URIC, CBC, GFR #### [place] [address] #### PTH #### [place] [address] Platelet 118 10 3/mcL Low 130-400 [facility] ([place]) Comment on above: Performed By: #### A DIFF, BMP, ANEU, VIDH, URIC, CBC, GFR #### [place] [address] #### PTH #### [place] [address] Platelet mean volume (Bld) [Entitic vol] 8.4 fL Normal 7.4-10.4 [facility] ([place]) Comment on above: Performed By: #### A DIFF, BMP, ANEU, VIDH, URIC, CBC, GFR #### [place] [address] #### PTH #### [place] [address] RBC 3.70 10 6/mcL Low 4.04-6.13 [facility] ([place]) Comment on above: Performed By: #### A DIFF, BMP, ANEU, VIDH, URIC, CBC, GFR #### [place] [address] #### PTH #### [place] [address] WBC 6.8 10 3/mcL Normal 4.6-10.8 [facility] ([place]) Comment on above: Performed By: #### A DIFF, BMP, ANEU, VIDH, URIC, CBC, GFR #### [place] [address] #### PTH #### [place] [address] CRURon 06-09-2023 U Creatinine 94.6 mg/dL Normal 39.0-259.0 [facility] ([place]) Comment on above: Performed By: #### P RUR, CRUR #### [place] [address] PRURon 06-09-2023 U Protein 23 mg/dL High 0-11 [facility] ([place]) Comment on above: Performed By: #### P RODRIGO ADAMS #### [address] [address] PTHon 06-09-2023 PTH, Intact 55.8 pg/mL Normal 18.5-88.0 [facility] ([place]) Comment on above: Performed By: #### A DIFF, BMP, ANEU, VIDH, URIC, CBC, GFR #### [address] [address] #### PTH #### [place] [id number] URICon 06-09-2023 Uric Acid Lvl 8.6 mg/dL High 3.5-7.2 [facility] ([place]) Comment on above: Performed By: #### A DIFF, BMP, ANEU, VIDH, URIC, CBC, GFR #### [place] [id number] #### PTH #### [place] [address] Albumin Elph [Mass/Vol]Order ed By: Braxton Doss on 04-01-2023 Albumin [Mass/Vol] 3.9 g/dL 2.9-4.4 [facility] Basophil percentageOrdered B y: Braxton Doss on 04-01-2023 Basophil percentage Comment . [facility] Comment on above: No monoclonality det ected.Performed at: - [facility] [id number] Director: Jonnathan Meeks PhD, Phone: [phone] No Panel InformationOrdered By: Braxton Doss on 04-01-2023 Addendum Document Comment . [facility] Comment on above: Protein electrophore sis scan will follow via computer,mail, or surface plate finisher delivery. Serum [id number] measu rement by electrophoresisOrdered By: Braxton Doss on 04-01-2023 Alpha 1 globulin Elph [Mass/Vol] 0.2 g/dL 0.0-0.[address] [facility] Alpha 1 globulin Elph [Mass/Vol] 0.7 g/dL 0.4-1.[address] [facility] Serum globulin measurement ( mass/volume)Ordered By: Braxton Doss on 04-01-2023 Globulin (S) [Mass/Vol] 2.6 g/dL 2.2-3.9 [facility] Serum or plasma IgA measurem ent (mass/volume)Ordered By: Braxton Doss on 04-01-2023 IgA [Mass/Vol] 337 mg/dL 61-[address] [facility] Serum or plasma IgG measurem ent (mass/volume)Ordered By: Braxtoncassandra Dsos on 04-01-2023 IgG [Mass/Vol] 823 mg/dL 603-[address] [facility] Serum or plasma IgM measurem ent (mass/volume)Ordered By: Braxton Doss on 04-01-2023 IgM [Mass/Vol] 59 mg/dL 15-[address] [facility] Serum or plasma beta globuli n measurement by electrophoresis (mass/volume)Ordered By: Braxton Doss on 04-01-2023 Beta globulin Elph [Mass/Vol] 1.1 g/dL 0.7-1.[address] [facility] Serum or plasma gamma globul in measurement by electrophoresis (mass/volume)Ordered By: Braxton Doss on 04-01-2023 Gamma globulin Elph [Mass/Vol] 0.6 g/dL 0.4-1.[address] [facility] Serum or plasma immunoelectr ophoresis interpretation (nominal result)Ordered By: Braxton Doss on 04-01-2023 Interpretation IEP [Interp] Comment . [facility] Comment on above: No monoclonality det ected. Thin prep Papanicolaou smear with manual screeningOrdered By: Braxton Doss on 04-01-2023 Thin prep Papanicolaou smear with manual screening 1.6 0.7-1.[address] [facility] Total protein bloodOrdered B y: Braxton Doss on 04-01-2023 Protein [Mass/Vol] 6.5 g/dL 6.0-8.5 [facility] HFPon 02-25-2023 Bili Indirect 0.3 mg/dL Normal [facility] ([place]) Comment on above: Performed By: #### A DIFF, BMP, ANEU, VIDH, URIC, CBC, GFR #### [address] [address] #### PTH #### [address] [address] Albumin Level 3.8 G/dL Normal 3.4-4.8 [facility] ([place]) Comment on above: Performed By: #### A DIFF, BMP, ANEU, VIDH, URIC, CBC, GFR #### [address] [address] #### PTH #### [address] [address] Albumin/Globulin [Mass ratio] 1.4 {ratio} Normal 1.1-2.5 [facility] ([place]) Comment on above: Performed By: #### A DIFF, BMP, ANEU, VIDH, URIC, CBC, GFR #### [place] [address] #### PTH #### [address] [address] ALP [Catalytic activity/Vol] 62 U/L Normal 40-135 [facility] ([place]) Comment on above: Performed By: #### A DIFF, BMP, ANEU, VIDH, URIC, CBC, GFR #### [address] [address] #### PTH #### [address] [address] ALT [Catalytic activity/Vol] 14 U/L Low 16-63 [facility] ([place]) Comment on above: Performed By: #### A DIFF, BMP, ANEU, VIDH, URIC, CBC, GFR #### [address] [address] #### PTH #### [address] [address] AST [Catalytic activity/Vol] 22 U/L Normal 10-40 [facility] ([place]) Comment on above: Performed By: #### A DIFF, BMP, ANEU, VIDH, URIC, CBC, GFR #### [address] [address] #### PTH #### [address] [address] Bili Direct 0.2 mg/dL Normal 0.0-0.2 [facility] ([place]) Comment on above: Result Comment: Use of this assay is not recommended for patients undergoing treatment with eltrombopag due to the potential for falsely elevated results. Performed By: #### A DIFF, BMP, ANEU, VIDH, URIC, CBC, GFR #### [address] [address] #### PTH #### [place] [address] Bili Total 0.5 mg/dL Normal 0.2-1.0 [facility] ([place]) Comment on above: Result Comment: Use of this assay is not recommended for patients undergoing treatment with eltrombopag due to the potential for falsely elevated results. Performed By: #### A DIFF, BMP, ANEU, VIDH, URIC, CBC, GFR #### [address] [address] #### PTH #### [place] [address] Globulin 2.7 G/dL Normal [facility] ([place]) Comment on above: Performed By: #### A DIFF, BMP, ANEU, VIDH, URIC, CBC, GFR #### [address] [address] #### PTH #### [place] [address] Total Protein 6.5 G/dL Normal 6.4-8.2 [facility] ([place]) Comment on above: Performed By: #### A DIFF, BMP, ANEU, VIDH, URIC, CBC, GFR #### [address] [address] #### PTH #### [address] [address] LIPIDon 02-25-2023 Cholesterol [Mass/Vol] 85 mg/dL Normal 0-200 [facility] ([place]) Comment on above: Result Comment: Chol esterol Reference Interval: Less than 200 Desirable 200-239 Borderline high risk 240 and above High risk Performed By: #### A DIFF, BMP, ANEU, VIDH, URIC, CBC, GFR #### [address] [address] #### PTH #### [address] [address] Cholesterol in HDL [Mass/Vol] 41 mg/dL Normal 40-60 [facility] ([place]) Comment on above: Performed By: #### A DIFF, BMP, ANEU, VIDH, URIC, CBC, GFR #### [address] [address] #### PTH #### [address] [address] Cholesterol in LDL [Mass/Vol] 33 mg/dL Normal 0-130 [facility] ([place]) Comment on above: Performed By: #### A DIFF, BMP, ANEU, VIDH, URIC, CBC, GFR #### [address] [address] #### PTH #### [address] [address] Triglyceride [Mass/Vol] 53 mg/dL Normal 0-150 [facility] ([place]) Comment on above: Result Comment: Trig lyceride Reference Interval: Less than 150 Normal 150-199 Borderline high risk 200-499 High risk 500 or higher Very high risk Performed By: #### A DIFF, BMP, ANEU, VIDH, URIC, CBC, GFR #### [address] [address] #### PTH #### [address] [address] Basophil percentageOrdered B y: Dr. Doss on 12-08-2022 Bilirubin [Mass/Vol] 0.70 mg/dL 0.20-1.00 [facility] Comment on above: For patients on eltr ombopag therapy, use of Dimension [place] TBIL is not recommended. Chloride [Moles/Vol] 107 mmol/L 98-107 [facility] Glucose [Mass/Vol] 165 mg/dL 74-106 [facility] Comment on above: Fasting Glucose resu lt greater than or equal to 126 mg/dL suggests DIABETES MELLITUS per A.D.A. criteria. Potassium [Moles/Vol] 4.5 mmol/L 3.5-5.1 [facility] Protein [Mass/Vol] 7.2 g/dL 6.4-8.2 [facility] Sodium [Moles/Vol] 140 mmol/L 136-145 [facility] WBC (Bld) [#/Vol] 8.3 10*3/uL 4.4-11.0 [facility] Blood erythrocytes count (nu mber/volume)Ordered By: Dr. Doss on 12-08-2022 RBC (Bld) [#/Vol] 3.84 10*6/uL 4.6-6.2 [facility] Blood hemoglobin measurement (mass/volume)Ordered By: Dr. Doss on 12-08-2022 Hemoglobin (Bld) [Mass/Vol] 11.3 g/dL 13.0-16.[address] [facility] Blood platelet mean volumeOr dered By: Dr. Doss on 12-08-2022 Platelet mean volume (Bld) [Entitic vol] 11.2 fL 6.2-12.[address] [facility] Determination of erythrocyte mean corpuscular volume (MCV)Ordered By: Dr. Doss on 12-08-2022 MCV (RBC) [Entitic vol] 91.7 fL 80-94 [facility] Hematocrit Auto (Bld) [Volum e fraction]Ordered By: Dr. Doss on 12-08-2022 Hematocrit (Bld) [Volume fraction] 35.2 % 40-[address] [facility] Laboratory - Chemistry and C hemistry - challengeOrdered By: Dr. Doss on 12-08-2022 ALP [Catalytic activity/Vol] 55 U/L 45-[address] [facility] ALT [Catalytic activity/Vol] 16 U/L 16-[address] [facility] CO2 [Moles/Vol] 29.0 mmol/L 21.0-32.[address] [facility] Cobalamin (Vitamin B12) [Mass/Vol] 426 pg/mL 211-[address] [facility] Globulin (S) [Mass/Vol] 3.4 g/dL 2.2-4.2 [facility] Urea nitrogen/Creatinine [Mass ratio] 13.2 mg/mg 10-[address] [facility] Laboratory - Hematology and Cell countsOrdered By: Dr. Doss on 12-08-2022 Erythrocyte distribution width (RBC) [Entitic vol] 47.5 fL 35.1-43.[address] [facility] Erythrocyte distribution width (RBC) [Ratio] 14.1 % 11.6-14.[address] [facility] MCH (RBC) [Entitic mass] 29.4 pg 27.0-32.[address] [facility] MCHC Auto (RBC) [Mass/Vol]Or dered By: Dr. Doss on 12-08-2022 MCHC (RBC) [Mass/Vol] 32.1 g/dL 32-36 [facility] No Panel InformationOrdered By: Dr. Doss on 12-08-2022 Estimated GFR (MDRD) Amer 28 mL/min >[address] [facility] Comment on above: GFR Calc Estimated GFR (MDRD) Non-Af Amer 23 mL/min >[address] [facility] Comment on above: Non- GFR Calc Free Lambda Light Chains, Quant 38.1 mg/L 5.7-26.[address] [facility] Thyroid Stimulating Hormone (TSH) 1.17 uIU/mL 0.358-3.[address] [facility] Whole Blood Vitamin B1 Level 120.3 nmol/L 66.5-200.[address] [facility] Comment on above: Performed at: - [address] [id number] Director: Jonnathan Meeks PhD, Phone: [phone] at: - [facility] [id number] Director: Mariaelena Hanna MD, Phone: [phone] Platelets bldOrdered By: Dr. Doss on 12-08-2022 Platelets (Bld) [#/Vol] 162 10*3/uL 150-[address] [facility] Serum immunoglobulin kappa l ight chains/immunoglobulin lambda light chains mass ratioOrdered By: Dr. Doss on 12-08-2022 Immunoglobulin light chains.kappa/Immunoglobu katie light chains.lambda (S) [Mass ratio] 1.89 0.26-1.[address] [facility] Serum or plasma albumin francisco urement (mass/volume)Ordered By: Dr. Doss on 12-08-2022 Albumin [Mass/Vol] 3.8 g/dL 3.2-5.0 [facility] Serum or plasma albumin/glob ulin mass ratioOrdered By: Dr. Doss on 12-08-2022 Albumin/Globulin [Mass ratio] 1.1 {ratio} 0.9-2.[address] [facility] Serum or plasma calcium francisco urement (mass/volume)Ordered By: Dr. Doss on 12-08-2022 Calcium [Mass/Vol] 10.1 mg/dL 8.5-10.1 [facility] Serum or plasma creatinine m easurement (mass/volume)Ordered By: Dr. Doss on 12-08-2022 Creatinine [Mass/Vol] 2.81 mg/dL 0.70-1.30 [facility] Comment on above: The validity of the calculated GFR & GFRAA in patients over 70 years has not been determined. Clinical correlation is essential. Serum or plasma folate measu rement (mass/volume)Ordered By: Dr. Doss on 12-08-2022 Folate [Mass/Vol] 6.40 ng/mL 3.1-55.[address] [facility] Serum or plasma immunoglobul in kappa light chains measurement (mass/volume)Ordered By: Dr. Doss on 12-08-2022 Immunoglobulin light chains.kappa [Mass/Vol] 72.1 mg/L 3.3-19.[address] [facility] Serum or plasma urea nitroge n measurement (mass/volume)Ordered By: Dr. Doss on 12-08-2022 Urea nitrogen [Mass/Vol] 37 mg/dL 7-[address] [facility] Thin prep Papanicolaou smear with manual screeningOrdered By: Dr. Doss on 12-08-2022 Thin prep Papanicolaou smear with manual screening 21 U/L 15-[address] [facility] Thin prep Papanicolaou smear with manual screening 4 5-[address] [facility] LABORATORYOrdered By: Rhett Figueroa on [...] Interpretation Code AO ADM SS LABORATORYOrdered By: [facility] on 10-19-2022 Ferritin [Mass/Vol] 37.0 ng/mL [...] 150 mg/dL AO ADM SS LABORATORYOrdered By: [facility] on 01-19-2022 GFR 32 ml/min/1.73sqm Invalid [...] 27 ratio AO ADM SS LABORATORYOrdered By: [facility] on 11-18-2021 GFR 31 ml/min/1.73sqm Invalid Interpretation Code AO Chemistry S GFR Non- 26 ml/min/1.73sqm Inval id Interpretation Code AO Chemistry S Vital Signs Date Time Vital Sign Value Performing Clinician Facility 07-12-2025 12:17-0400 Diastolic Blood Pressure Non-Invasive 59 mm[Hg] FLORENTINPERLA MORAN DO [facility] 07-12-2025 12:17-0400 Heart rate 68 /min FLORENTIN MORAN DO [facility] 07-12-2025 12:17-0400 Respiratory rate 20 /min FLORENTIN MORAN DO [facility] 07-12-2025 12:17-0400 Systolic Blood Pressure Non-Invasive 105 mm[Hg] FLORENTIN MORAN DO [facility] 07-12-2025 09:39-0400 Body height 175.3 cm FLORENTIN MORAN DO [facility] 07-12-2025 09:39-0400 Body temperature 96.98 [degF] FLORENTIN MORAN DO [facility] 07-12-2025 09:39-0400 Body weight 90.9 kg FLORENTIN MORAN DO [facility] 07-12-2025 09:39-0400 Diastolic Blood Pressure Non-Invasive 54 mm[Hg] FLORENTINPERLA MORAN DO [facility] 07-12-2025 09:39-0400 Heart rate 79 /min FLORENTIN MORAN DO [facility] 07-12-2025 09:39-0400 Respiratory rate 16 /min FLORENTIN MORAN DO [facility] 07-12-2025 09:39-0400 Systolic Blood Pressure Non-Invasive 93 mm[Hg] FLORENTIN MORAN DO [facility] 06-11-2025 14:35-0400 Diastolic blood pressure 56 mm[Hg] Dr. Jluis Nichole DO Work Phone: [facility] 06-11-2025 14:35-0400 Systolic blood pressure 108 mm[Hg] Dr. Jluis Nichole DO Work Phone: [facility] 06-11-2025 13:56-0400 Body temperature 98 [degF] Dr. Jluis Nichole DO Work Phone: [facility] 06-11-2025 13:56-0400 Heart rate 68 /min Dr. Jluis Nichole DO Work Phone: [facility] 06-11-2025 13:56-0400 Respiratory rate 15 /min Dr. Jluis Nichole DO Work Phone: [facility] 06-11-2025 13:56-0400 SaO2% (BldA) [Mass fraction] 97 % Dr. Jluis Nichole DO Work Phone: [facility] 03-28-2025 09:39-0400 Body temperature 98.8 [degF] Dr. Jluis Nichole DO Work Phone: [facility] 03-28-2025 09:39-0400 Diastolic blood pressure 62 mm[Hg] Dr. Jluis Nichole DO Work Phone: [facility] 03-28-2025 09:39-0400 Heart rate 61 /min Dr. Jluis Nichole DO Work Phone: [facility] 03-28-2025 09:39-0400 Respiratory rate 15 /min Dr. Jluis Nichole DO Work Phone: [facility] 03-28-2025 09:39-0400 SaO2% (BldA) [Mass fraction] 100 % Dr. Jluis Nichole DO Work Phone: [facility] 03-28-2025 09:39-0400 Systolic blood pressure 104 mm[Hg] Dr. Jluis Nichole DO Work Phone: [facility] 02-16-2025 15:34-0400 Body height 175.[address] Jluis Nichole DO Work Phone: [facility] 02-16-2025 15:34-0400 Body mass index (BMI) [Ratio] 30.4 kg/m2 Dr. Jluis Nichole DO Work Phone: [facility] 02-16-2025 15:34-0400 Body weight 93.[address] Jluis Nichole DO Work Phone: [facility] 02-16-2025 15:34-0400 Diastolic blood pressure 72 mm[Hg] Dr. Jluis Nichole DO Work Phone: [facility] 02-16-2025 15:34-0400 Heart rate 71 /min Dr. Jluis Nichole DO Work Phone: [facility] 02-16-2025 15:34-0400 Respiratory rate 18 /min Dr. Jluis Nichole DO Work Phone: [facility] 02-16-2025 15:34-0400 Systolic blood pressure 152 mm[Hg] Dr. Jluis Nichole DO Work Phone: [facility] 11-29-2024 09:47-0400 Body temperature 97.8 [degF] Dr. Jluis Nichole DO Work Phone: [facility] 11-29-2024 09:47-0400 Diastolic blood pressure 68 mm[Hg] Dr. Jluis Nichole DO Work Phone: [facility] 11-29-2024 09:47-0400 Heart rate 64 /min Dr. Jluis Nichole DO Work Phone: [facility] 11-29-2024 09:47-0400 Respiratory rate 16 /min Dr. Jluis Nichole DO Work Phone: [facility] 11-29-2024 09:47-0400 SaO2% (BldA) [Mass fraction] 100 % Dr. Jluis Nichole DO Work Phone: [facility] 11-29-2024 09:47-0400 Systolic blood pressure 110 mm[Hg] Dr. Jluis Nichole DO Work Phone: [facility] 11-16-2024 10:19-0500 Body temperature 97.9 [degF] Dr. Jluis Nichole DO Work Phone: [facility] 11-16-2024 10:19-0500 Body weight 87.[address] Jluis Nichole DO Work Phone: [facility] 11-16-2024 10:19-0500 Diastolic blood pressure 76 mm[Hg] Dr. Jluis Nichole DO Work Phone: [facility] 11-16-2024 10:19-0500 Heart rate 68 /min Dr. Jluis Nichole DO Work Phone: [facility] 11-16-2024 10:19-0500 SaO2% (BldA) [Mass fraction] 97 % Dr. Jluis Nichole DO Work Phone: [facility] 11-16-2024 10:19-0500 Systolic blood pressure 120 mm[Hg] Dr. Jluis Nichole DO Work Phone: [facility] 09-12-2024 10:19-0500 Body height 172.7 cm Toney Gutierrez MD Work Phone: [facility] 09-12-2024 10:19-0500 Body mass index (BMI) [Ratio] 29.95 kg/m2 Toney Gutierrez MD Work Phone: [facility] 09-12-2024 10:19-0500 Body temperature 97.11 [degF] Toney Gutierrez MD Work Phone: [facility] 09-12-2024 10:19-0500 Body weight 89.36 kg Toney Gutierrez MD Work Phone: [facility] 09-12-2024 10:19-0500 Diastolic blood pressure 59 mm[Hg] Toney Gutierrez MD Work Phone: [facility] 09-12-2024 10:19-0500 Heart rate 58 /min Toney Gutierrez MD Work Phone: [facility] 09-12-2024 10:19-0500 SaO2% (BldA) [Mass fraction] 96 % Toney Gutierrez MD Work Phone: [facility] 09-12-2024 10:19-0500 Systolic blood pressure 128 mm[Hg] Toney Gutierrez MD Work Phone: [facility] 06-14-2024 11:21-0400 Blood Pressure Location FLORENTIN MORAN DO [facility] 06-14-2024 11:21-0400 Blood Pressure Method FLORENTIN MORAN DO [facility] 06-14-2024 11:21-0400 Body temperature 98.24 [degF] FLORENTIN MORAN DO [facility] 06-14-2024 11:21-0400 Diastolic Blood Pressure Non-Invasive 69 mm[Hg] FLORENTIN MORAN DO [facility] 06-14-2024 11:21-0400 Heart rate 60 /min FLORENTIN MORAN DO [facility] 06-14-2024 11:21-0400 Respiratory rate 18 /min FLORENTIN MORAN DO [facility] 06-14-2024 11:21-0400 Systolic Blood Pressure Non-Invasive 127 mm[Hg] FLORENTIN MORAN DO [facility] 04-01-2023 10:44-0400 Body height 175.[address] Layne Doherty Work Phone: [facility] 04-01-2023 10:44-0400 Body mass index (BMI) [Ratio] 29.3 kg/m2 Dr. Layne Doherty Work Phone: [facility] 04-01-2023 10:44-0400 Body temperature 98.9 [degF] Dr. Layne Doherty Work Phone: [facility] 04-01-2023 10:44-0400 Body weight 90.[address] Layne Doherty Work Phone: [facility] 04-01-2023 10:44-0400 Diastolic blood pressure 50 mm[Hg] Dr. Layne Doherty Work Phone: [facility] 04-01-2023 10:44-0400 Heart rate 76 /min Dr. Layne Doherty Work Phone: [phone] [place] [address] 04-01-2023 10:44-0400 Respiratory rate 15 /min Dr. Layne Doherty Work Phone: [facility] 04-01-2023 10:44-0400 SaO2% (BldA) [Mass fraction] 99 % Dr. Layne Doherty Work Phone: [facility] 04-01-2023 10:44-0400 Systolic blood pressure 114 mm[Hg] Dr. Layne Doherty Work Phone: [facility] 03-02-2023 08:32-0400 Body mass index (BMI) [Ratio] 29.7 kg/m2 Dr. Layne Doherty Work Phone: [facility] 03-02-2023 08:32-0400 Body weight 91.[address] Layne Doherty Work Phone: [facility] 03-02-2023 08:32-0400 Diastolic blood pressure 59 mm[Hg] Dr. Layne Doherty Work Phone: [facility] 03-02-2023 08:32-0400 Heart rate 64 /min Dr. Layne Doherty Work Phone: [facility] 03-02-2023 08:32-0400 Respiratory rate 16 /min Dr. Layne Doherty Work Phone: [facility] 03-02-2023 08:32-0400 Systolic blood pressure 111 mm[Hg] Dr. Layne Doherty Work Phone: [facility] 11-26-2022 13:05-0500 Diastolic blood pressure 68 mm[Hg] Dr. Layne Doherty Work Phone: [facility] 11-26-2022 13:05-0500 Systolic blood pressure 116 mm[Hg] Dr. Layne Doherty Work Phone: [facility] 11-26-2022 10:02-0500 Body height 175.[address] Layne Doherty Work Phone: [facility] 11-26-2022 10:02-0500 Body mass index (BMI) [Ratio] 29.2 kg/m2 Dr. Layne Doherty Work Phone: [facility] 11-26-2022 10:02-0500 Body temperature 98.2 [degF] Dr. Layne Doherty Work Phone: [facility] 11-26-2022 10:02-0500 Body weight 90.[address] Layne Doherty Work Phone: [facility] 11-26-2022 10:02-0500 Heart rate 67 /min Dr. Layne Doherty Work Phone: [facility] 11-26-2022 10:02-0500 Respiratory rate 17 /min Dr. Layne Doherty Work Phone: [facility] 11-26-2022 10:02-0500 SaO2% (BldA) [Mass fraction] 99 % Dr. Layne Doherty Work Phone: [facility] 09-01-2022 08:20-0500 Body mass index (BMI) [Ratio] 26.6 kg/m2 Dr. Layne Doherty Work Phone: [facility] 09-01-2022 08:20-0500 Body weight 81.[address] Layne Doherty Work Phone: [facility] 09-01-2022 08:20-0500 Diastolic blood pressure 77 mm[Hg] Dr. Layne Doherty Work Phone: [facility] 09-01-2022 08:20-0500 Heart rate 64 /min Dr. Layne Doherty Work Phone: [facility] 09-01-2022 08:20-0500 Respiratory rate 20 /min Dr. Layne Doherty Work Phone: [facility] 09-01-2022 08:20-0500 SaO2% (BldA) [Mass fraction] 98 % Dr. Layne Doherty Work Phone: [facility] 09-01-2022 08:20-0500 Systolic blood pressure 142 mm[Hg] Dr. Layne Doherty Work Phone: [facility] 03-09-2022 08:36-0400 Body height 175.[address] Layne Doherty Work Phone: [facility] Work Phone: 03-09-2022 08:36-0400 Body mass index (BMI) [Ratio] 28.5 kg/m2 Dr. Layne Doherty Work Phone: [facility] Work Phone: 03-09-2022 08:36-0400 Body weight 87.[address] Layne Doherty Work Phone: [facility] Work Phone: 03-09-2022 08:36-0400 Diastolic blood pressure 78 mm[Hg] Dr. Layne Doherty Work Phone: [facility] Work Phone: 03-09-2022 08:36-0400 Heart rate 64 /min Dr. Layne Doherty Work Phone: [facility] Work Phone: 03-09-2022 08:36-0400 Respiratory rate 18 /min Dr. Layne Doherty Work Phone: [facility] Work Phone: 03-09-2022 08:36-0400 Systolic blood pressure 144 mm[Hg] Dr. Layne Doherty Work Phone: [facility] Work Phone: Encounters Encounter Date Encounter Type Care Provider Facility Start: 07-31-2025 ambulatory Jluis Nichole Facility:[facility] Start: 07-30-2025 ambulatory Jluis Nichole Facility:[facility] Start: 07-24-2025 End: 07-24-2025 ambulatory Jluis MILAN Facility:[facility] Start: 07-16-2025 End: 07-16-2025 ambulatory Jluis MILAN Facility:[facility] Start: 07-12-2025 End: 07-12-2025 Emergency department patient visit FLORENTIN DEAN LEE [facility] Start: 07-11-2025 End: 07-11-2025 ambulatory Jluis MILAN Facility:[facility] Start: 07-05-2025 End: 07-05-[address] JLUIS NICHOLE DO Facility:[facility] Start: 07-05-2025 End: 07-05-[address] JLUIS NICHOLE DO [facility] Start: 07-04-2025 End: 07-08-[address] JLUIS NICHOLE DO [facility] Start: 07-04-2025 End: 07-08-[address] JLUIS NICHOLE DO Facility:[facility] Start: 07-04-2025 End: 07-04-[address] JLUIS NICHOLE DO [facility] Start: 06-11-2025 End: 06-11-[address] Braxton Doss MD -[facility] Work Phone: Start: 06-11-2025 End: 06-11-[address] Jluis Nichole DO Work Phone: -[facility] Start: 04-26-2025 End: 04-26-[address] Jluis Nichole DO Work Phone: -Ultrasound [facility] Start: 04-26-2025 End: 04-26-[address] Porsha Bass DO -Ultrasound [facility] Work Phone: Start: 04-26-2025 End: 04-26-2025 ambulatory Porsha Bass Facility:[facility] Start: 04-19-2025 End: 04-19-[address] Jluis Nichole DO Work Phone: -Laboratory Phy [facility] 3rd Flr Start: 04-19-2025 End: 04-19-[address] Porsha Bass DO -Laboratory Phy [facility] 3rd Flr Start: 04-19-2025 End: 04-19-2025 ambulatory Porsha Bass Facility:[facility] Start: 04-10-2025 Non-patient / Non-visit Dr. Cecilio huitron MD -[facility] Start: 04-10-2025 End: 04-10-[address] Jluis Nichole DO Work Phone: -Cardiovascular Services Start: 04-10-2025 End: 04-10-2025 Patient encounter procedure Sharon RAGLAND -Cardiovascular Services Work Phone: Start: 04-10-2025 End: 04-10-2025 ambulatory Porsha Bass Facility:[facility] Start: 03-28-2025 Non-patient / Non-visit Dr. Desire ROMAN -[facility] Start: 03-28-2025 End: 03-28-[address] Jluis Nichole DO Work Phone: -Cardiovascular Services Start: 03-28-2025 End: 03-28-2025 Patient encounter procedure Bailey CONTE -Cardiovascular Services Work Phone: Start: 03-28-2025 End: 03-28-2025 Patient encounter procedure Sharon RAGLAND -[facility] Work Phone: Start: 03-28-2025 End: 03-28-[address] Jluis Nichole DO Work Phone: -[facility] Start: 03-28-2025 End: 03-28-2025 ambulatory Jluis Nichole Facility:[facility] Start: 02-23-2025 End: 04-17-[address] JLUIS NICHOLE DO Facility:[facility] Start: 02-22-2025 End: 02-22-2025 Emergency department patient visit DAVID LAST MD [facility] Start: 02-21-2025 End: 02-25-[address] JLUIS NICHOLE DO Facility:[facility] Start: 02-21-2025 End: 02-25-[address] JLUIS NICHOLE DO [facility] Start: 02-16-2025 End: 02-16-2025 Patient encounter procedure Bailey CONTE -[facility] Work Phone: Start: 02-16-2025 End: 02-16-[address] Jluis Nichole DO Work Phone: [facility] Work Phone: Start: 02-08-2025 End: 02-08-[address] Jluis Nichole DO Work Phone: [facility] Work Phone: Start: 02-08-2025 End: 02-08-2025 Patient encounter procedure Maryuri RAGLAND -Laboratory Work Phone: Start: 02-08-2025 End: 02-08-2025 ambulatory Maryuri Begum Facility:[facility] Start: 11-29-2024 End: 11-29-[address] Braxton Doss MD -[facility] Work Phone: Start: 11-29-2024 End: 11-29-2024 ambulatory Braxton Doss Facility:[facility] Start: 11-16-2024 End: 11-16-2024 ambulatory Elijah Quintero DG Facility:[facility] Start: 11-16-2024 End: 11-16-2024 Patient encounter procedure Elijah Quintero DG -[facility] Work Phone: Start: 11-01-2024 End: 11-01-[address] JLUIS NICHOLE DO Facility:[facility] Start: 11-01-2024 End: 11-01-[address] TIA POWELL MD [facility] Start: 09-12-2024 End: 09-12-2024 ambulatory Toney Gutierrez MD Work Phone: Hematology/Oncology Comment on above: Thrombocytopenia (HC C) (Primary Dx); Anemia, unspecified type Start: 09-12-2024 End: 09-12-2024 Patient encounter procedure Toney Gutierrez MD Work Phone: Hematology/Oncology Start: 08-14-2024 End: 08-14-[address] JLUIS NICHOLE DO Facility:[facility] Start: 08-14-2024 End: 08-14-[address] JLUIS NICHOLE DO [facility] Start: 08-11-2024 End: 08-15-[address] JLUIS NICHOLE DO Facility:[facility] Start: 08-11-2024 End: 08-15-2024 Encounter for general adult medical examination without abnormal findings DR JLUIS NICHOLE DO Facility:[facility] Start: 08-11-2024 End: 08-15-[address] JLUIS NICHOLE DO [facility] Start: 07-07-2024 End: 07-07-[address] TIA POWELL MD [facility] Start: 06-14-2024 End: 06-14-2024 Emergency department patient visit FLORENTIN MORAN DO [facility] Start: 02-21-2024 End: 02-21-[address] TIA POWLEL MD Facility:[facility] Start: 02-21-2024 End: 02-21-[address] TIA POWELL MD [facility] Start: 11-19-[address] JLUIS NICHOLE DO Facili ty:[facility] Start: 11-15-2023 End: 12-15-[address] JLUIS NICHOLE DO Facility:[facility] Start: 10-27-2023 End: 10-27-[address] TIA POWELL MD Facility:[facility] Start: 06-24-2023 End: 06-25-[address] JLUIS NICHOLE DO Facility:[facility] Start: 06-09-2023 End: 06-09-[address] TIA POWELL MD Facility:[facility] Start: 04-01-2023 End: 04-01-[address] Layne Doherty Work Phone: [facility] Work Phone: Start: 04-01-2023 End: 04-01-[address] Layne Doherty Work Phone: [facility] Work Phone: Start: 04-01-2023 End: 04-01-[address] Layne Doherty Work Phone: [facility] Work Phone: Start: 03-02-2023 End: 03-02-[address] Layne Doherty Work Phone: [facility] Work Phone: Start: 02-25-2023 End: 02-25-2023 ambulatory MARYURI SHY ABBASI Facility:[facility] Start: 12-14-2022 End: 12-14-[address] Layne Doherty Work Phone: [facility] Work Phone: Start: 12-14-2022 End: 12-14-[address] Layne Doherty Work Phone: [facility] Start: 12-08-2022 End: 12-08-[address] Layne Doherty Work Phone: [facility] Work Phone: Start: 12-08-2022 End: 12-08-[address] Layne Doherty Work Phone: [facility] Start: 11-26-2022 End: 11-26-[address] Layne Doherty Work Phone: [facility] Start: 10-30-2022 End: 10-30-[address] TIA POWELL MD [facility] Start: 10-19-2022 End: 10-19-[address] JLUIS NICHOLE DO [facility] Start: 09-01-2022 End: 09-01-[address] Layne Doherty Work Phone: [facility] Start: 08-25-2022 End: 08-25-2022 Patient encounter procedure MARYURI BEGUM [employer] [facility] Start: 04-29-2022 End: 04-29-[address] TIA POWELL MD [facility] Start: 03-09-2022 End: 03-09-[address] Lay[facility] Start: 03-07-2022 End: 03-07-[address] Layne Doherty Work Phone: [facility] Start: 01-19-2022 End: 01-19-[address] TIA POWELL MD [facility] Start: 12-30-2021 End: 04-07-2022 Physical therapy management LAYNE DOHERTY DO [facility] Start: 11-18-2021 End: 11-18-2021 Patient encounter procedure MARYURI BEGUM CNP [facility] Start: 06-01-2018 Patient encounter ARTEM Friedman cility:[facility] Procedures Date Procedure Procedure Detail Performing Clinician Start: 04-26-2025 Complete ultrasound of kidneys and bladder Dr. Jluis Nichole DO Work Phone: Start: 12-14-2022 MRI of brain without contrast Dr. Layne Doherty Work Phone: Start: 03-07-2022 MRI of brain without contrast Dr. Layne Doherty Work Phone: Start: 02-01-2019 Cystoscopy MARYURI BEGUM [employer] Comment on above: Per [facility] office no te Start: 08-03-2018 Transurethral prostatectomy MARYURI BEGUM [employer] Comment on above: Per [facility] office no te Start: 08-03-2018 Transurethral resect ion of bladder neoplasm MARYURI BEGUM [employer] Comment on above: Per [place] office no [...] Start: 09-20-2002 Biopsy of prostate MARYURI BEGUM [employer] Comment on above: Per [place] office no te Start: 09-20-1997 Biopsy of prostate MARYURI BEGUM [employer] Comment on above: Per [place] office no te Extracorporeal shock wave lithotripsy of calculus of kidney MARYURI BEGUM [employer] Comment on above: Per [place] office no te Knee region structur e (body structure) MARYURI BEGUM [employer] Procedure on heart MARYURI BEGUM [employer] Structure of left wr ist (body structure) MARYURI BEGUM [employer] Comment on above: Pins s/p fall on ice Plan of Treatment Date Care Activity Detail Author Start: 10-07-2032 Urine microalbumin profile DTaP,Tdap,Td Vaccine (2 - Td or Tdap) [facility] Start: 01-11-2025 End: 01-11-2025 ambulatory 01/11/2025 10:20 AM EDT Visit (SP) Office Hematology/Oncology [address] [place] [address] [place] [id number] [place] [address] CBC/ 4 MO OV Hematology/Oncology Comment on above: CBC/ 4 MO OV Start: 09-12-2024 End: 12-12-2024 aPTT in Platelet poor plasma by Coagulation assay ACTIVATED PARTIAL THROMBOPLASTIN TIME Lab Routine Thrombocytopenia (HCC) Expected: 09/12/2024, Expires: 12/12/2024 [facility] Comment on above: Expected: 09/12/2024 , Expires: 12/12/2024 Start: 09-12-2024 End: 12-12-2024 CBC W Auto Differential panel - Blood COMPLETE BLOOD COUNT AND DIFFERENTIAL Lab Routine Thrombocytopenia (HCC) Expected: 09/12/2024, Expires: 12/12/2024 [facility] Work Phone: Comment on above: Expected: 09/12/2024 , Expires: 12/12/2024 Start: 09-12-2024 End: 12-12-2024 PT panel - Platelet poor plasma by Coagulation assay PROTHROMBIN TIME Lab Routine Thrombocytopenia (HCC) Expected: 09/12/2024, Expires: 12/12/2024 [facility] Comment on above: Expected: 09/12/2024 , Expires: 12/12/2024 Start: 05-21-2024 Covid-19 Vaccine ( season) Covid-19 Vaccine () [facility] Start: 09-20-2023 Advance Directive Discussion Advance Directive Discussion [facility] Start: 08-13-2023 Shingrix Vaccine (2 of 2) Shingrix Vaccine (2 of 2) [facility] Start: 04-01-2023 Serum immunofixation [facility] Start: 04-01-2023 Urine immunofixation [facility] Start: 11-26-2022 Patient referral [facility] Work Phone: Start: 07-01-2019 Hepatitis B surface antibody level LDL Cholesterol [facility] Start: 11-10-2018 Hemoglobin A1c measurement HbA1C [facility] Start: 1958 Anxiety Screening Anxiety Screening [facility] Start: 1958 Depression Screening Depression Scre ening [facility] Start: 1950 Diabetic foot examination Diabetic Foot Exam [facility] Start: 1950 Glaucoma screening Dilated Retinal E xam [facility] Start: 1950 Hepatitis B screening Urine Al bumin:Creatinine Ratio [facility] MR Brain WO contrast [facility] Patient referral [facility] Work Phone: Serum protein electrophoresis [facility] US Carotid arteries [facility] Immunizations Immunization Date Immunization Notes Care Provider Fa louis 06-28-2024 influenza, high dose seasonal, preservative-free; Translations: [Fluad PF Prefilled Syringe ] DR TIA POWELL MD [facility] 08-22-2023 RSV vaccine preF3, recombinant DR TIA POWELL MD [facility] 07-15-2023 SARS-CoV-2 (COVID-19 ) [id number] DR TIA POWELL MD [facility] 06-18-[address] TIA POWELL MD [facility] Comment on above: Result Comment: [facility]. IM left upper arm 05-15-2023 influenza virus vaccine, unspecified formulation DR TIA POWELL MD [facility] 04-27-2023 pneumococcal 20-keron nt conjugate vaccine DR TIA POWELL MD [facility] 10-07-2022 tetanus toxoid, reduced diphtheria toxoid, and acellular pertussis vaccine, adsorbed; Translations: [Boostrix (Tdap)] DR JLUIS NICHOLE DO [facility] 08-22-2022 influenza virus vaccine, unspecified formulation DR TIA POWELL MD [facility] 01-26-2022 SARS-CoV-2 (COVID-19 ) mRNA-[address] TIA POWELL MD [facility] 07-24-2021 SARS-CoV-2 (COVID-19 ) mRNA-[address] TIA POWELL MD [facility] Comment on above: Result Comment: 2022: [id number] 06-04-2021 influenza virus vaccine, unspecified formulation DR TIA POWELL MD [facility] 11-07-2020 COVID-19, mRNA, LNP- S, PF, 100 mcg or 50 mcg dose; Translations: [Moderna COVID-19 Vaccine] MARYURI BEGUM [employer]SULT[employer] [facility] 10-10-2020 COVID-19, mRNA, LNP- S, PF, 100 mcg or 50 mcg dose; Translations: [Moderna COVID-19 Vaccine] MARYURI [employer] [facility] 05-23-2020 influenza virus vaccine, unspecified formulation MARYURI [employer] [facility] Comment on above: Result Comment: brenda meier administered 05-23-2020 pneumococcal conjuga te vaccine, 13 valent MARYURI [employer] [facility] 05-20-2019 influenza virus vaccine, unspecified formulation MARYURI [employer] [facility] 06-15-2018 influenza virus vaccine, unspecified formulation MARYURI [employer] [facility] 06-15-2018 influenza, injectabl e, quadrivalent, preservative free Dr. Jluis Nichole DO Work Phone: [facility] 06-15-2018 influenza, seasonal, injectable Dr. Layne Doherty Work Phone: [facility] 07-21-[address] Layne Doherty Work Phone: [facility] 06-08-2017 influenza virus vaccine, unspecified formulation MARYURI ROOF [employer]ANT [facility] 06-09-2016 influenza virus vaccine, unspecified formulation MARYURI [employer] [facility] 06-11-2015 influenza virus vaccine, unspecified formulation MARYURI R[employer] [facility] 05-21-2015 pneumococcal polysaccharide vaccine, 23 valent MARYURI [employer] [facility] 06-12-2014 influenza virus vaccine, unspecified formulation MARYURI R[employer] [facility] 06-13-2013 influenza virus vaccine, unspecified formulation MARYURI [employer] [facility] 08-21-2005 pneumococcal polysaccharide vaccine, 23 valent MRAYURI BEGUM [employer] [facility] Payers Date Payer Category Payer Self-pay [id number] 2016 Private Health Insurance [id number] 2016 Unknown [id number] 2005 Medicare [id number] 2005 Medicare [id number] 1940 Unknown [id number] 2.16.8 40.1.102236.3.579.2.627 1940 Unknown [id number] 2.16.8 40.1.407525.3.579.2.627 1940 Unknown [id number] 2.16.8 40.1.475592.3.579.2.627 1940 Unknown [id number] 2.16.8 40.1.363706.3.579.2.627 1940 Unknown [id number] 2.16.8 40.1.197140.3.579.2.627 1940 Unknown [id number] 2.16. 840.1.108533.3.579.2.62 1940 Unknown [id number] 2.16. 840.1.132936.3.579.2.62 1940 Unknown [id number] 2.16. 840.1.761592.3.579.2.627 1940 Unknown [id number] 2.16. 840.1.258667.3.579.2.627 1940 Unknown [id number] 2.16. 840.1.021655.3.579.2.627 1940 Unknown [id number] 2.16. 840.1.400973.3.579.2.62 1940 Unknown [id number] 2.16.8 40.1.808343.3.579.2.627 1940 Unknown [id number] 2.16.8 40.1.884052.3.579.2.627 1940 Unknown [id number] 2.16.8 40.1.877721.3.579.2.627 Unknown [id number] 2.16.8 40.1.372704.3.579.2.462 Unknown [id number] 2.16.8 40.1.696579.3.579.2.462 Unknown [id number] 2.16.8 40.1.295770.3.579.2.462 Unknown [id number] 2.16.8 40.1.635531.3.579.2.462 Unknown [id number] 2.16.8 40.1.657260.3.579.2.462 Unknown [id number] 2.16.8 40.1.730136.3.579.2.462 Unknown [id number] 2.16.8 40.1.446490.3.579.2.462 Unknown [id number] 2.16.8 40.1.544627.3.579.2.462 Unknown [id number] 2.16.8 40.1.130175.3.579.2.462 Unknown [id number] 2.16.8 40.1.244547.3.579.2.462 Unknown [id number] 2.16.8 40.1.805639.3.579.2.462 Unknown [id number] 2.16.8 40.1.730478.3.579.2.462 Unknown [id number] 2.16.8 40.1.538128.3.579.2.462 Unknown [id number] 2.16.8 40.1.722399.3.579.2.462 Unknown [id number] 2.16.8 40.1.138179.3.579.2.462 Unknown [id number] 2.16.8 40.1.554646.3.579.2.462 Unknown [id number] 2.16.8 40.1.998329.3.579.2.462 Social History Date Type Detail Facility Start: 06-20-2019 Never smoked t rakel (finding) [facility] Start: 1940 Sex Assigned At Male [facility] Start: 03-09-2022 End: 04-01-2023 Tobacco smoking status NHIS Unknown if ever smoked [facility] Start: 03-22-2019 Non-smoker [facility] Start: 10-11-2022 End: 11-29-2024 Tobacco smoking status Ex-smoker (finding) [facility] Start: 06-09-2018 None [facility] Start: 06-09-2018 Spouse/ Signif icant Other [facility] End: 09-20-1993 History of tobacco use Current smoker [facility] End: 09-20-1993 History of tobacco use Cigar Smoker [facility] Start: 09-12-2024 Tobacco use and exposure Smokeless tobacco non-user [facility] Start: 05-13-2018 End: 09-12-2024 History of Social function [facility] Start: 05-13-2018 End: 09-12-2024 Tobacco use panel [facility] PHQ2 Score 0 [facility] Start: 1940 Sex assigned at Not on file [facility] Sexual Orientation [facility] ospital [facility] Start: 08-14-2019 Sex Male (finding) [facility] Start: 07-12-2025 Not applicable (qualifier value) [facility] Medical Equipment Procedure Code Equipment Code Equipment Original Text Equipment Identifier Dates See Instructions , Freestyle lite test strips. use 1 strip daily. Use as directed, # 100 EA, 2 Refill(s), Pharmacy: [id number], Diabetes, 175, cm, 12/15/21 8:54:00 EDT, Height, 83.8 Start: 03-10-2022 See Instructions , Freestyle lite test strips. use 1 strip daily. Use as directed, # 100 EA, 2 Refill(s), Pharmacy: [id number], Diabetes, 175, cm, 12/15/21 8:54:00 EDT, Height, 83.8 Start: 03-10-2022 See Instructions , Freestyle lite test strips. use 1 strip daily. Use as directed, # 100 EA, 2 Refill(s), Pharmacy: [facility], Diabetes, 175, cm, 12/15/21 8:54:00 EDT, Height, 83.8 Start: 03-10-2022 See Instructions , Freestyle lite test strips. use 1 strip daily. Use as directed, # 100 EA, 2 Refill(s), [id number], Diabetes, 175, cm, 12/15/21 8:54:00 EDT, Height, 83.8 Start: 03-10-2022 See Instructions , Freestyle lite test strips. use 1 strip daily. Use as directed, # 100 EA, 2 Refill(s), [id number], Diabetes, 175, cm, 12/15/21 8:54:00 EDT, Height, 83.8 Start: 03-10-2022 [place] Thk1.65mm P tfe 4x.5in Cardiovascular Sterile - [id number] Start: 05-13-2018 Functional Status Date Assessment Result Facility 07-12-2025 Functional Status Minimum assistance [facility] 07-12-2025 Functional Status [facility] 07-12-2025 [facility] 06-14-2024 Functional Status Minimum assistance [facility] 06-14-2024 Functional Status ID band on, Call device within reach, Bed in low position, Wheels locked, Upper/Half-Length side-rails up, Visitor at bedside, Safety level maintained [facility] 12-30-2021 Functional Status 1 flight [facility] Mental Status Date Assessment Result Facility 07-12-2025 Mental Status Orientation Oriented x 4 [facility] 07-12-2025 Mental Status [facility] 06-14-2024 Mental Status Orientation Oriented x 4 [facility] 06-14-2024 Mental Status [facility] Clinical Notes 04-20-2018 to 07-12-2025 Note Date [...] upper back pain Trouble controlling your muscles 6971-6911 [employer]. [address] [place] [address]. All rights reserved. This information is not intended as a substitute for professional medical care. Always follow your healthcare professional's instructions. Follow Up Care 07/12/2025 09:18:39 With:Go to emergency room if symptoms worsen Address:Unknown When:2-4 days With:JLUIS NICHOLE DO Address: [address] [facility] [place] [phone] When:2-4 days [facility] 07-12-2025 Note Discharge Instructions Thank you for allowing [facility] to assist you with your healthcare needs. The following is important discharge information regarding your hospital visit. Diagnosis from Today's Visit Hyperkalemia What to Do Next Instructions from Your Care Team Potassium today was 5.2 on check here. Recommended to resume home Lokelma and to call care management associate for further outpatient management and following of potassium levels. Return to the emergency department for any acute concerns. No qualifying data available. Post Acute Orders No qualifying data available. You Need to Schedule the Following Appointments Follow Up with Go to emergency room if symptoms worsen When:Within 2-4 days Follow Up with JLUIS NICHOLE DO When:Within 2-4 days Where:[address] [place] [address] [place] [phone] Allergies NKA Medications Please ask your primary [...] upper back pain Trouble controlling your muscles [phone] [employer]. [address] [place] [address], [place] [address]. All rights reserved. This information is not intended as a substitute for professional medical care. Always follow your healthcare professional's instructions. Additional Information VACCINATE! IT SAVES LIVES! Members of the community who have not yet received the COVID-19 vaccine and would like to receive it can visit one of [facility] vaccine clinics. There are many vaccine clinic locations within the [facility]. For locations and available times, please visit www.gettheshot.coronavirus.[place]. gov/. It is important to note that some COVID mobile vaccine clinics are held outdoors and may be canceled in rainy or stormy conditions. To learn more about pediatric vaccinations (ages 5-11), we invite you to visit the [facility] webpage. https://www.akOrca Digitals.org/p ages/4665-Kxafk-Twpcrvaqizq-Freq bdserw-Abchr-Ztqvweapy.html To learn more about the COVID-19 vaccine, we invite you to visit the CDC website for a list of frequently asked questions. https://www.cdc.gov/coronavirus/ 2019-ncov/vaccines/faq.html [facility] Patient Portal Access Instructions: Stay connected with your healthcare team and access your personal medical information anytime with the [facility] Patient Portal. If you would like a full copy of your medical records please contact the [facility] Medical Records Department Wednesday through Wednesday between 8a.m. and 4:30p.m. Please follow the directions below to access the portal: 1.Access the email account you provided upon registration to the hospital.2.Look for an invitation email from [facility].3.Open the email and access the invitation link: Accept Invitation to [facility]4.Fill in the required liriano to create your account. To access your account, visit [email or web address] or scan the QR code above. Click [...] you will allow to register on the [facility] Patient Portal for access to your information. You can also access the [facility] Patient Portal on the [employer] josee. Simply click on "Health Records" under "Health Data" and then click on the GeneAss[employer] logo. HOW TO SAFELY DISPOSE OF PRESCRIPTION [...] Call your local pharmacy or go to [email or web address] to find one close to you.3.Make use of household items: Use cat litter or old coffee grounds to dispose medications if other options are not available. Mix your drugs with these household products, seal them in an airtight container and throw it into the garbage. Call [facility]: [phone] to be sure your drugs can be [...] aware that I should contact my doctor. 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 MICRO - Microbiology [...] Locations *1: This test was performed at: [facility], [address] [place] [address], [facility] , [facility] 07-05-2025 Note Exam Date Time Procedure Performing Provider Status 07/05/25 9:[address] Head or Brain w/o Contrast LAYNE NAYAK MD; Auth (Verified) [id number] ORIGINAL EXAMINATION: CT HEAD TECHNIQUE: Axial CT [...] 4:57:02 PM Ordering Provider: JLUIS NICHOLE RP [facility]10-15-2025 Note* Exam Date Time Procedure Performing Provider Status 07/04/25 4:05 PM XR Humerus Minimum 2 Views Right LILIANA HENAO DO; Auth (Verified) [id number] ORIGINAL EXAMINATION: TWO XRAY VIEWS OF THE [...] 5:10:20 PM Ordering Provider: JLUIS NICHOLE RP [facility]10-15-2025 Note* Exam Date Time Procedure Performing Provider Status 07/04/25 4:02 PM XR Chest 2 Views JAIRO ROBERTSON DO; Auth (Verified) [id number] ORIGINAL EXAMINATION: TWO XRAY VIEWS OF THE [...] 4:38:56 PM Ordering Provider: JLUIS NICHOLE RP [facility]09-22-2025 [facility] [address] [place] [address], [address] [place] [address] OFFICE VISIT Date of Service: 06/11/25 MR#: [id number] Acct: [id number] Name: EKATERINA RANDHAWA Rep #: [id number] : 1940 Provider: Dr. Cora Doss MD Age/Sex: 85/M Location[place] [facility] Status: Signed HPI HPI Chief Complaint: Details: [...] this began during his hospitalization for his [place]/CABG and may have been procedure related). 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 Essential hypertension Atherosclerotic heart disease of [place] coronary artery without angina pectoris Postoperative atrial [...] rarely substance use type: does not use arelis/confucianism: Angelica seatbelt use: always Clinical Quality Measures Falls Risk Screening/Assistive Devices Have you fallen in the past year?: Yes Coding Level of Care Code Off vis,est,level 4 Diagnoses Parkinsonism, unspecified Parkinsonism type G20 Parkinsonism type: unspecified Mild cognitive impairment G31.84 Polyneuropathy G62.9 Restless legs syndrome G25.81 06/13/25 1511 ur MD> Date _ Braxton Doss MD Cosigner Signature: Date (if applicable) CC: ~ [facility]09-22-2025 Progress note Author Braxton Doss [facility] Note Date/Time June 11, 2025 2:41pm [facility] [address] [place] [address], [place] [address] OFFICE VISIT Date of Service: 06/11/25 MR#: [id number] Acct: [id number] Name: EKATERINA RANDHAWA Rep #: [id number] : 1940 Provider: Dr. Cora Doss MD Age/Sex: 85/M Location: [facility] Status: Signed HPI [facility] Chief Complaint: Details: Interim History: Ekaterina [...] this began during his hospitalization for his [place]/CABG and may have been procedure related). 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 Essential hypertension Atherosclerotic heart disease of [place] coronary artery without angina pectoris Postoperative atrial [...] rarely substance use type: does not use arelis/confucianism: Angelica seatbelt use: always Clinical Quality Measures Falls Risk Screening/Assistive Devices Have you fallen in the past year?: Yes Coding Level of Care Code Off vis,est,level 4 Diagnoses Parkinsonism, unspecified Parkinsonism type G20 Parkinsonism type: unspecified Mild cognitive impairment G31.84 Polyneuropathy G62.9 Restless legs syndrome G25.81 06/13/25 1511 <Electronically signed by Braxton light MD> Date _ Braxton Simeonigner Signature: Date (if applicable) CC: ~ [facility] Work Phone: 1(393) 265-792808-08-2025 Radiology Diagnostic study note [facility] Services [address] [place], [place] [address] Kidney and Bladder MR#: [id number] Acct: [id number] Name: EKATERINA RANDHAWA Rep #: [id number] : 1940 M 85 From: Joesph Leon MD PCP: Dr. Jluis Nichole DO Status: REG CLI Study:Kidney and Bladder Date of Exam: 0 04/26/25 Exam# [id number] Ordering Dr: Seth Bass DO PROCEDURE: KIDNEY AND BLADDER 04/26/2025 REASON FOR EXAM: HYPERKALEMIA TECHNIQUE: KIDNEY AND BLADDER COMPARISON: None FINDINGS: Kidneys: Normal renal sizes, parenchymal thicknesses, and echotextures. [place]: No evidence of hydronephrosis. Cysts or Masses: [...] Bladder IMPRESSION: NORMAL RENAL ULTRASOUND. Reading Location: [id number] CC: Dr. Porsha Bass DO; Dr. Jluis Nichole DO ~ Client Liaison: Signed [facility]07-09-2025 Evaluation note* Diagnosis Onset Date [...] 1:49pm Polyneuropathy inactive June 11, 2025 1:49pm [facility] Work Phone: 1(365) 811-131406-05-2025 Hospital Discharge instructions Patient Education 02/22/2025 18:52:22 [...] for life. Yourdoctor can tell you more. 7408-6334 [employer]. [address] [place] [address], [place] [address]. All rights reserved. This information is not [...] vessels (vasculitis) Viral or bacterial infection Some okfc-fgj-evkjlee (OTC) pain medicines can cause renal failure [...] help you quit. For more information, visit: Neterionfree.gov/sites/default/files/pdf/zussgbun-ayp-opu-accessible.pdf owww.smokefree.gov owww.cancer.org/healthy/stayawayfromtobacco/guidetoquittingsmoking/ Talk with your healthcare provider [...] one of the following for more information: [place] Association of Kidney Patients, www.aakp.org National Kidney Foundation, www.kidney.org [employer] Kidney Fund, www.kidneyfund.org National Kidney Disease Education [...] or you aren t able to urinate 1614-1241 [employer]. [address] [place] [address], [place] [address]. All rights reserved. This information is not [...] as systemic lupus erythematosus, sickle cell, or [place] disease How is this test done? The [...] if you are taking any medicine, including iwup-fjh-kcidrbd NSAIDs. Be sure your healthcare provider knows about all medicines, herbs, vitamins, and supplements you are taking. This includes medicines that don't need a prescription and any illicit drugs you may use. 7882-0483 [employer]. [address] [place] [address]. All rights reserved. This information is not intended as a substitute for professional medical care. Always follow yourhealthcare professional's instructions. Follow Up Care 02/22/2025 17:19:54 With:Your care management associate Address:Unknown When:2-4 days Comments:Schedule appointment as soon as possibleReturn to ED if symptoms worsenCall in the morning for follow-up laboratory studies can return to the ER for any developing symptoms With:JLUIS NICHOLE Address: [address] [place] [phone] [phone] Business (1) When:2-4 days [facility] 06-05-2025 Emergency department Discharge summary Discharge Instructions Thank you for allowing [facility] to assist you with your healthcare needs. The following is importantdischarge information regarding your hospital visit. What to Do Next Instructions from Your Care Team No qualifying data available. Post Acute Orders No qualifying data available. You Need to Schedule the Following Appointments Follow Up with Your care management associate When:Within 2-4 days Additional Information: Schedule appointment as soon as possible Return to ED if symptoms worsen Call in the morning for follow-up laboratory studies can return to the ER for any developing symptoms Follow Up with JLUIS NICHOLE When:Within 2-4 days Where:[address] [place] [phone] [phone] Business (1) Allergies NKA Medications Please ask [...] for life. Yourdoctor can tell you more. 0615-3293 [employer]. [address] [place] [address], [place] [id number]. All rights reserved. This information is not [...] vessels (vasculitis) Viral or bacterial infection Some lsmt-eke-vxikzzz (OTC) pain medicines can cause renal failure [...] help you quit. For more information, visit: Neterionfrubigrate.gov/sites/default/files/pdf/pkybqdwf-zif-jsb-accessible.pdf owww.smokefree.gov owww.cancer.org/healthy/stayawayfromtobacco/guidetoquittingsmoking/ Talk with your healthcare provider [...] one of the following for more information: [employer] Kidney Patients, www.aakp.org National Kidney Foundation, www.kidney.org [employer] Kid[employer] Fund, www.kidneyfund.org National Kidney Disease Education [...] or you aren t able to urinate 8184-6750 [employer]. [address] [place] [address]. All rights reserved. This information is not [...] as systemic lupus erythematosus, sickle cell, or [place] disease How is this test done? The [...] if you are taking any medicine, including fhzh-aea-nwybsiz NSAIDs. Be sure your healthcare provider knows about all medicines, herbs, vitamins, and supplements you are taking. This includes medicines that don't need a prescription and any illicit drugs you may use. 6365-5775 [employer]. [address] [place] [address]. All rights reserved. This information is not intended as a substitute for professional medical care. Always follow yourhealthcare professional's instructions. Additional Information VACCINATE! IT SAVES LIVES! Members of the community who have not yet received the COVID-19 vaccine and would like to receive it can visit one of [facility] vaccine clinics. There are many vaccine clinic locations within the [facility]. For locations and available times, please visit www.gettheshot.coronavirus.[place].gov/. It is important to note that some COVID mobile vaccine clinics are held outdoors and may be canceled in rainy or stormy conditions. To learn more about pediatric vaccinations (ages 5-11), we invite you to visit the [facility] webpage. https://www.[facility].org/pages/9263-Ypjit-Kqoobxnufsj-Sbdqkupuye-Pfshx-Uzf stions.htmlTo learn more about the COVID-19 vaccine, we invite you to visit the CDC website for a list of frequently asked questions. https://www.cdc.gov/coronavirus/2019-ncov/vaccines/faq.html [facility] Patient Portal Access Instructions: Stay connected with your healthcare team and access your personal medical information anytime with the [facility] Patient Portal. If you would like a full copy of your medical records please contact the [facility] Medical Records Department Wednesday through Wednesday between 8a.m. and 4:30p.m. Please follow the directions below to access the portal: 1.Access the email account you provided upon registration to the [facility].2.Look for an invitation email from [facility].3.Open the email and access the invitation link: Accept Invitation to [facility]44.Fill in the required liriano to create your account. Sign into [email or web address] with your username and password that you [...] you will allow to register on the [facility] Patient Portal for access to your information. You can also access the [facility] Patient Portal on the [employer] josee. Simply click on "Health Records" under "HealthData" and then click on the GeneAssess logo. HOW TO SAFELY DISPOSE OF PRESCRIPTION [...] Call your local pharmacy or go to http://bit.Pressglue/3H2Zo7t to find one close to you.3.Make use of household items: Use cat litter or old coffee grounds to dispose medications if other options arenot available. Mix your drugs with these household products, seal them in an airtight container andthrow it into the garbage. Call [facility]: [phone] to be sure your drugs can be [...] aware that I should contact my doctor. Patient/Bioinformatics Programmer Signature: Date/Time: Relationship to Patient: Witness Name/Signature: Date/Time: [facility]06-05-2025 Note Discharge Instructions Thank you for allowing [facility] to assist you with your healthcare needs. The following is importantdischarge information regarding your hospital visit. What to Do Next Instructions from Your Care Team No qualifying data available. Post Acute Orders No qualifying data available. You Need to Schedule the Following Appointments Follow Up with Your care management associate When:Within 2-4 days Additional Information: Schedule appointment as soon as possible Return to ED if symptoms worsen Call in the morning for follow-up laboratory studies can return to the ER for any developing symptoms Follow Up with JLUIS NICHOLE When:Within 2-4 days Where:0 [facility] [place] [address]- [phone] Business (1) Allergies NKA Medications Please ask [...] for life. Yourdoctor can tell you more. 7313-3488 The [employer]. [address] [place] [address], [place] [address]. All rights reserved. This information is not [...] vessels (vasculitis) Viral or bacterial infection Some zdqu-mrq-gqasryu (OTC) pain medicines can cause renal failure [...] help you quit. For more information, visit: osmokefree.gov/sites/default/files/pdf/brcipezb-mop-tqq-accessible.pdf owww.smokefree.gov owww.cancer.org/healthy/stayawayfromtobacco/guidetoquittingsmoking/ Talk with your healthcare provider [...] one of the following for more information: [place] [employer]ney Patients, www.aakp.org National Kidney Foundation, www.kidney.org [employer] Kidney [employer], www.kidneyfund.org National Kidney Disease Education [...] or you aren t able to urinate 5510-5609 [employer]. [address] [place] [address]. All rights reserved. This information is not [...] if you are taking any medicine, including wbms-jdq-jzlxbpt NSAIDs. Be sure your healthcare provider knows about all medicines, herbs, vitamins, and supplements you are taking. This includes medicines that don't need a prescription and any illicit drugs you may use. 1312-9460 [employer]. [address] [place] [address], [place] [address]. All rights reserved. This information is not intended as a substitute for professional medical care. Always follow yourhealthcare professional's instructions. Additional Information VACCINATE! IT SAVES LIVES! Members of the community who have not yet received the COVID-19 vaccine and would like to receive it can visit one of [facility] vaccine clinics. There are many vaccine clinic locations within the [facility]. For locations and available times, please visit www.gettheshot.coronavirus.[place].gov/. It is important to note that some COVID mobile vaccine clinics are held outdoors and may be canceled in rainy or stormy conditions. To learn more about pediatric vaccinations (ages 5-11), we invite you to visit the [facility] webpage. https://www.[facility].org/pages/4615-Yfcuv-Zhhbkiewbgi-Sqtfgayunc-Nnlxq-Ihg stions.htmlTo learn more about the COVID-19 vaccine, we invite you to visit the CDC website for a list of frequently asked questions. https://www.cdc.gov/coronavirus/2019-ncov/vaccines/faq.html [facility] Patient Portal Access Instructions: Stay connected with your healthcare team and access your personal medical information anytime with the [facility] Patient Portal. If you would like a full copy of your medical records please contact the [facility] Medical Records Department Wednesday through Wednesday between 8a.m. and 4:30p.m. Please follow the directions below to access the portal: 1.Access the email account you provided upon registration to the [facility].2.Look for an invitation email from [facility].3.Open the email and access the invitation link: Accept Invitation to [facility]4.Fill in the required liriano to create your [...] you will allow to register on the [facility] Patient Portal for access to your information. You can also access the [facility] Patient Portal on the [employer] josee. Simply click on "Health Records" under "HealthDaNeuroNation.de" and then click on the GeneAssess logo. HOW TO SAFELY DISPOSE OF PRESCRIPTION [...] Call your local pharmacy or go to [email or web address] to find one close to you.3.Make use of household items: Use cat litter or old coffee grounds to dispose medications if other options arenot available. Mix your drugs with these household products, seal them in an airtight container andthrow it into the garbage. Call [facility]: [phone] to be sure your drugs can be [...] aware that I should contact my doctor. Patient/Bioinformatics Programmer Signature: Date/Time: Relationship to Patient: Witness Name/Signature: Date/Time: [facility]06-05-2025 Note* Exam Date Time Procedure Performing Provider Status 02/22/25 5:31 PM EKG [ED AOH] - CV DAVID LAST MD; [facility] (Verified) ECG Final Report Sinus rhythm RBBB and LAFB SEE DICTATION Electronic Signature: DAVID LAST MD 02/22/2025 17:49:20 [facility]05-30-2025 Evaluation note* Diagnosis Onset Date Resolution [...] 9:39am Polyneuropathy inactive March 28, 2025 9:39am [facility] Work Phone: 1(823) 346-861103-12-2025 Evaluation note* Diagnosis Onset Date Resolution Status Admit Date Restless legs syndrome acute [facility] 2024 9:45am Mild cognitive impairment chronic November [...] 9:39am Polyneuropathy inactive March 28, 2025 9:39am [facility] Work Phone: 1(633) 743-721202-27-2025 Evaluation note* Diagnosis Onset Date Resolution Status Admit Date Contusion of right foot acute F ebruary 2024 10:14am Restless legs syndrome acute [facility] 2024 9:45am Mild cognitive impairment chronic November 29, 2024 9:45am Parkinsonism chronic November 29, 2024 9:45am Polyneuropathy inactive November 9:45am [facility] Work Phone: 1(501) 291-677102-27-2025 Evaluation note* Diagnosis Onset Date Resolution Status Admit Date Contusion of right foot acute F ebruary 2024 10:14am Restless legs syndrome acute [facility] 2024 9:45am Mild cognitive impairment chronic November 29, 2024 9:45am Parkinsonism chronic November 29, 2024 9:45am Polyneuropathy inactive November 9:45am Essential hypertension chronic Ma y 2024 3:33pm Hyperlipidemia chronic February 16, 2025 3:33pm Ischemic cardiomyopathy chronic M ay 2024 3:33pm Paroxysmal atrial fibrillation chronic February 16, 2025 3 :33pm 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 Author [...] which included preparing to see the patient, kzqg-ko-xihj patient care, completing clinical documentation, obtaining and/or reviewing separately obtained history, counseling and educating the patient/family/caregiver, ordering medications, tests, or procedures, independently interpreting results (not separately reported), and communicating results to the patient/family/caregiver. Electronically Signed: Toney Gutierrez MD September 12, 2024 10:42 [facility]12-24-2024 History of Present illness Narrative* Toney Gutierrez [...] which included preparing to see the patient, okam-ut-grng patient care, completing clinical documentation, obtaining and/or reviewing separately obtained history, counseling and educating the patient/family/caregiver, ordering medications, xenia ts, or procedures, independently interpreting results (not separately reported), and communicating results to the patient/family/caregiver. Electronically Signed: Toney Gutierrez MD September 12, 2024 10:42 AM [facility] Discharge instructions Patient Education 06/14/2024 11:49:32 [...] some information about medicine: You may use qrbz-fpf-fokkqte medicine such as acetaminophen or ibuprofen to [...] re-open Bleeding not controlled by direct pressure 1980-2560 The [employer]. [address] [place] [address]. All rights reserved. This information is not intended as a substitute for professional medical care. Always follow [facility] professional's instructions. 06/14/2024 11:49:04 Wound [...] oRed streaks around the wound oDraining pus 2151-0822 [employer]. [address] [place] [address]. All rights reserved. This information is not intended as a substitute for professional medical care. Always follow yourhealthcare professional's instructions. Follow Up Care 06/14/2024 11:11:49 With:Go to emergency room if symptoms worsen Address: When:3-7 days With:JLUIS NICHOLE DO Address: [address] [place] [address] Physicians [place], [place] [phone]- [phone] When:2-4 days [facility] 09-25-2024 Note Discharge Instructions Thank you for allowing [facility] to assist you with your healthcare needs. [...] JLUIS NICHOLE DO When:Within 2-4 days Where:0 [facility] [place] [address]- [phone] Allergies NKA Medications Please ask your primary [...] some information about medicine: You may use oeij-ltq-htfxovv medicine such as acetaminophen or ibuprofen to [...] re-open Bleeding not controlled by direct pressure 1805-6423 [employer]. [address] [place] [address], [place] [address]. All rights reserved. This information is not [...] oRed streaks around the wound oDraining pus 4086-4139 [employer]. [address] [place] [address]. All rights reserved. This information is not intended as a substitute for professional medical care. Always follow yourhealthcare professional's instructions. Additional Information VACCINATE! IT SAVES LIVES! Members of the community who have not yet received the COVID-19 vaccine and would like to receive it can visit one of [facility] vaccine clinics. There are many vaccine clinic locations within the [facility]. For locations and available times, please visit www.gettheshot.coronavirus.[place].gov/. It is important to note that some COVID mobile vaccine clinics are held outdoors and may be canceled in rainy or stormy conditions. To learn more about pediatric vaccinations (ages 5-11), we invite you to visit the [facility] webpage. https://www.[facility].org/pages/3021-Honyr-Aedhmpbcgmp-Wqsgbmxgtq-Cdbth-Mox stions.htmlTo learn more about the COVID-19 vaccine, we invite you to visit the CDC website for a list of frequently asked questions. https://www.cdc.gov/coronavirus/2019-ncov/vaccines/faq.html [facility] Patient Portal Access Instructions: Stay connected with your healthcare team and access your personal medical information anytime with the [facility] Patient Portal. If you would like a full copy of your medical records please contact the [facility] Medical Records Department Wednesday through Wednesday between 8a.m. and 4:30p.m. Please follow the directions below to access the portal: 1.Access the email account you provided upon registration to the hospital.2.Look for an invitation email from [facility].3.Open the email and access the invitation link: Accept Invitation to [facility]4.Fill in the required liriano to create your account. Sign into www.[email or web address] Aggie's Foods with your username and password that you [...] you will allow to register on the [facility] Patient Portal for access to your information. You can also access the [facility] Patient Portal on the Aniika. Simply click on "Health Records" under "HealthDaNeuroNation.de" and then click on the [facility] logo. [...] Call your local pharmacy or go to [email or web address] to find one close to you.3.Make use of household items: Use cat litter or old coffee grounds to dispose medications if other options arenot available. Mix your drugs with these household products, seal them in an airtight container andthrow it into the garbage. Call [facility]: [phone] to be sure your drugs can be [...] aware that I should contact my doctor. 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, chronic Mild cognitive impairment ac [place] Polyneuropathy acute Parkinson's disease noneacti [facility] Work Phone: Evaluation + Plan note Future Appointments Appointment Date:12/15/2021 09:30:00 AM Scheduled Provider:LAYNE DOHERTY DO Location:[facility] Appointment Type:PC OV Future Scheduled Tests Laboratory* Basic Metabolic Panel 05/08/21 * Vancomycin Level Trough - Panel 05/08/21 [facility] Evaluation + Plan note Future Appointments Appointment Date:01/20/2022 10:00:00 AM Scheduled Provider: Location:[facility] Appointment Type:PT Treatment - [place] Appointment Date:01/22/2022 10:00:00 AM Scheduled Provider: Location:[facility] Appointment Type:PT Treatment - [place] Appointment Date:01/27/2022 10:00:00 AM Scheduled Provider: Location:[facility] Appointment Type:PT Treatment - [place] Appointment Date:01/30/2022 10:00:00 AM Scheduled Provider: Location:[facility] Appointment Type:PT Treatment - [place] Appointment Date:06/18/2022 09:00:00 AM Scheduled Provider:LAYNE DOHERTY DO Location:[facility] Appointment Type:PC Wellness Medicare with Labs [facility] Evaluation + Plan note Future Appointments Appointment Date:04/16/2022 07:30:00 AM Scheduled Provider:LAYNE DOHERTY DO Location:[facility] Appointment Type:PC OV Appointment Date:06/18/2022 09:00:00 AM Scheduled Provider:LAYNE DOHERTY DO Location:[facility] Appointment Type:PC Wellness Medicare with Labs [facility] Evaluation + Plan note Future Appointments Appointment Date:06/18/2022 09:00:00 AM Scheduled Provider:LAYNE DOHERTY DO Location:[facility] Appointment Type:PC Wellness Medicare with Labs Appointment Date:08/18/2022 07:30:00 AM Scheduled Provider:LAYNE DOHERTY DO Location:[facility] Appointment Type:PC OV [facility] Evaluation + Plan note Future Appointments Appointment Date:09/21/2022 09:00:00 AM Scheduled Provider:LAYNE DOHERTY DO Location: [facility] Appointment Type:PC OV Appointment Date:10/07/2022 09:00:00 AM Scheduled Provider:JLUIS NICHOLE DO Location:[facility] Appointment Type:PC [facility] Evaluation + Plan note Future Appointments Appointment Date:11/09/2022 02:00:00 PM Scheduled Provider: Location:[facility] Appointment Type:VL AOH - Venous US/Doppler Both Legs (fo Appointment Date:06/22/2023 09:00:00 AM Scheduled Provider:JLUIS NICHOLE DO Location:[facility] Appointment Type:PC Wellness Medicare Future Scheduled Tests Laboratory* Stool for Occult Blood (Lab) 10/11/22 [facility] Evaluation + Plan note Future Appointments Appointment Date:07/18/2024 09:00:00 AM Scheduled Provider:JLUIS NICHOLE DO Location:[facility] Appointment Type:PC Wellness Medicare [facility] Evaluation + Plan note Future Appointments Appointment Date:06/21/2024 09:00:00 AM Scheduled Provider:MARTIR WEBB Location:[facility] Appointment Type:PC OV ED Follow Up Appointment Date:07/18/2024 09:00:00 AM Scheduled Provider:JLUIS NICHOLE DO Location:[facility] Appointment Type:PC Wellness Medicare [facility] Evaluation + Plan note Future Appointments Appointment Date:08/11/2024 10:00:00 AM Scheduled Provider:JLUIS NICHOLE DO Location:[facility] Appointment Type:PC Wellness Medicare [facility] Evaluation + Plan note Future Appointments Appointment Date:02/08/2025 10:00:00 AM Scheduled Provider:JLUIS NICHOLE DO Location:[facility] Appointment Type:PC OV [facility] Evaluation + Plan note Future Appointments Appointment Date:05/23/2025 10:00:00 AM Scheduled Provider:JLUIS NICHOLE DO Location:[facility] App[facility] Type[facility] Future Scheduled Tests Laboratory* Basic Metabolic Panel 02/22/25 * N-Terminal proBNP 02/21/25 [facility] Evaluation + Plan note Future Appointments Appointment Date:07/05/2025 10:00:00 AM Scheduled Provider: Location:[facility] Appointment Type:CT Head or Brain w/o Contrast Appointment Date:09/05/2025 02:00:00 PM Scheduled Provider:JLUIS NICHOLE DO Location:[facility] Appointment Type:PC Wellness Medicare Future Scheduled Tests Radiology* CT Head or Brain w/o Contrast 07/05/25 * XR Chest 2 Views (PA & Lateral) 07/04/25 [facility] Evaluation + Plan note Future Appointments Appointment Date:09/05/2025 02:00:00 PM Scheduled Provider:JLUIS NICHOLE DO Location:[facility] Appointment Type:PC Wellness Medicare Future Scheduled Tests Laboratory* Potassium Level 07/08/25 Radiology* XR Chest 2 Views (PA & Lateral) 07/04/25 [facility] Evaluation note* Diagnosis Onset Date Resolution Status Atherosclerotic heart diseas e of [place] coronary artery without angina pectoris chronic Essential hypertension chron ic Hyperlipidemia chronic Ischemic cardiomyopathy practice representative lupe Paroxysmal atrial fibrillation [facility] Work Phone: Evaluation note* Diagnosis Onset Date Resolution Status Atherosclerotic heart diseas e of [place] coronary artery without angina pectoris chronic Essential hypertension chron ic Hyperlipidemia chronic Ischemic cardiomyopathy practice representative lupe Paroxysmal atrial fibrillation chronic Mild cognitive impairment ac marshall Polyneuropathy acute Parkinson's disease noneacti ve [facility] Work Phone: Evaluation note* Diagnosis Thrombocytopenia (HCC)- Primary Thrombocytopenia, unspecified Anemia, unspecified type documented in this encounter [facility] Narrative No data available for this section [facility] Hospital Discharge instructions No data available for this section [facility] Progress note No data available for this section [facility] Reason for referral (narrative)No reason for referral information availableWEast [facility] Work [facility]: Summary Purpose Family History No Family History Records Found Relationship Condition Age at Onset Recorded Date/T gwyn father Myocardial infarction Unknown Advance Directives No Advanced Directives Records Found Advance Directive Response Recorded Date/ Time Living Will Yes March 22, 2019 1 0:10am Power of Buyer Agent Yes March 22, 2019 10:10am Advance Directive Response Recorded Date/ Time Living Will Yes March 22, 2019 1 0:10am Do you have a Healthcare Power of Buyer Agent? Yes March 22, 2019 10:10am Chief Complaint and Reason for Visit Chief Complaint ATAXIA 6 M FU Reason for Visit Atherosclerotic hear t disease of [place] coronary artery without angina pectoris Essential hypertension Hyperlipidemia Ischemic cardiomyopathy Paroxysmal atrial fibrillation Chief Complaint 6 m fu Parkinson's disease EORDER Reason for Visit Atherosclerotic hear t disease of [place] coronary artery without angina pectoris Essential hypertension Hyperlipidemia Ischemic cardiomyopathy Paroxysmal atrial fibrillation Mild cognitive impairment Polyneuropathy Parkinson's disease Chief Complaint 6 m fu Parkinson's disease EORDER PARKINSONS Reason for Visit Atherosclerotic hear t disease of [place] coronary artery without angina pectoris Essential hypertension [...] section and content) DATE CREATED AUTHOR 06/01/2018 [facility] DATE CREATED AUTHOR AUTHOR'S ORGANIZ ATION 02/22/2024 [facility] ([place]) DATE CREATED AUTHOR AUTHOR'S ORGANIZ ATION 06/09/2025 [facility] DATE CREATED AUTHOR AUTHOR'S ORGANIZ ATION 07/16/2025 [facility] DATE CREATED AUTHOR AUTHOR'S ORGANIZ ATION 07/27/2025 [facility] DATE CREATED AUTHOR AUTHOR'S ORGANIZ ATION 08/03/2025 [facility] Care Team (unrecognized sect ion and content) Team Status: Active Member Role Status Dates Dr. Layne Doherty DO Family Provider Active Dr. Layne Doherty DO Primary Care Provider Active Team Status: Inactive Member Role Status Dates Dr. Layne Doherty DO Primary Care Provider, Referrin g Provider Active Maryuri Begum PROJECT CONTROL ANALYST, PROJECT CONTROL ANALYST-C Attending Provider Active Team Status: Inactive Member [...] Doherty DO Referring Provider Active Maryuri Begum PROJECT CONTROL ANALYST, PROJECT CONTROL ANALYST-C Attending Provider Active Dr. Jluis Nichole DO Primary Care Provider Active Team Status: Inactive Member Role Status Dates Dr. Layne Doherty DO Referring Provider Active Dr. Braxton Doss MD Attending Provider Active Dr. Jluis Nichole DO Primary Care Provider Active Team Status: Inactive Member Role Status Dates Dr. Jluis Nichole DO Primary Care Provider Active Dr. Braxton Doss MD Attending Provider Active [place] Facilitator Relationship Specialty Start Date End Date Jluis Nichole DO [address] [place] [address] PCP - General Family Medicine 09/12/24 Adonis Joaquin MD [address] [address] Primary Staff Physician Cardiology 12/06/18 Team Status: [...] 2025 End: February 08, 2025 Maryuri Begum PROJECT CONTROL ANALYST, PROJECT CONTROL ANALYST-C Attending Provider Active S tart: February 08, 2025 End: February 08, 2025 Maryuri Begum PROJECT CONTROL ANALYST, PROJECT CONTROL ANALYST-C Referring Provider Active S tart: February 08, [...] 2025 End: February 08, 2025 Maryuri Begum PROJECT CONTROL ANALYST, PROJECT CONTROL ANALYST-C Attending Provider Active S tart: February 08, 2025 End: February 08, 2025 Maryuri Begum PROJECT CONTROL ANALYST, PROJECT CONTROL ANALYST-C Referring Provider Active S tart: February 08, [...] 2025 End: February 08, 2025 Maryuri Begum PROJECT CONTROL ANALYST, PROJECT CONTROL ANALYST-C Attending Provider Active S tart: February 08, 2025 End: February 08, 2025 Maryuri Begum PROJECT CONTROL ANALYST, PROJECT CONTROL ANALYST-C Referring Provider Active S tart: February 08, [...] 2025 End: April 10, 2025 Sharon Parsons PROJECT CONTROL ANALYST-C Attending Provider Active S tart: April 10, 2025 End: April 10, 2025 Sharon Parsons PROJECT CONTROL ANALYST-C Referring Provider Active S tart: April 10, [...] physician Active Start: March 28, 2025 Dr. Chneg Camarillo MD Attending physician Active Start: March [...] Ashley Corea PT Position: P3 Scheduling - Marketing Finance Manager Advanced Member Role: Other Name: LAYNE DOHERTY DO Position: P4 Physician - Primary Care Med Service: Active Provider Member Role: Primary Care Physician Address: Address: [address] [place] [address] [place] [address]- Care Team Related Persons Name: EDISDEBI WEBER Address: Home [address], [place] [id number] [place] Care Team Personnel Name: Ashley Corea PT Position: P3 Scheduling - Marketing Finance Manager Advanced Member Role: Other Name: LAYNE DOHERTY DO Position: P4 Physician - Primary Care Med Service: Active Provider Member Role: Primary Care Physician Address: Address: [address] [place] [id number] [place] [address] Care Team Related Persons Name: DEBI RANDHAWA Address: [place] [address] [place] [phone] Care Team Personnel Name: Ashley Corea Clerk Lynn PT Position: P3 Scheduling - Marketing Finance Manager Advanced Member Role: Other Name: LAYNE DOHERTY DO Position: P4 Physician - Primary Care Member Role: Primary Care Physician Address: Address: [address] [place] [id number] [place] Care Team Related Persons Name: DEBI RANDHAWA Address: [address] [phone] Care Team Personnel Name: Ashley Corea Clerk Lynn PT Position: P3 Scheduling - Marketing Finance Manager Advanced Member Role: Other Name: JLUIS NICHOLE DO Position: P4 Physician - Primary Care Member Role: Primary Care Physician Address: Address: [address] [place] [phone] [place] [address] Care Team Related Persons Name: DEBI RANDHAWA Address: [address] [phone] Care Team Personnel Name: Ashley Corea Clerk Lynn PT Position: P3 Scheduling - Marketing Finance Manager Advanced Member Role: Other Name: JLUIS NICHOLE DO Position: P4 Physician - Primary Care Member Role: Primary Care Physician Address: Address: [address] [place] [address] Care Team Related Persons Name: DEBI RANDHAWA Address: [address] [phone] [place] Source Comments (unrecognize d section and content) In the event this informatio n is protected by the Federal Confidentiality of Alcohol and Drug Abuse Patient Records regulations: The Federal rules restrict any use of the information to criminally investigate or prosecute any alcohol or drug abuse patient.[facility] Reason for Visit (unrecogniz ed section and [...] BE BASED ON THE PRIMARY CLINICAL RECORDS. [facility]. provides no warranty or guarantee of the accuracy or completeness of information in this document.
[2025-08-14 07:26] LABS: Potassium 4.5 mmol/L (3.3-5.1)
== END ==
LOC: OLS.WHLTSB 05:00
PROVIDERS: PCP Student in an Organized Health Care Education/Training Program; Visit Provider Internal Medicine
DX: E87.5 Hyperkalemia (principal)
CPT/HCPCS: 36415; 84132

== ENCOUNTER → 2025-08-21 05:00 | Outpatient (REF) | payer MEDICARE, OTHER, SELFPAY ==
--- OUTSIDE RECORDS SUMMARY | 2025-08-21 03:08 | XMS RPT_ITS | CCD ---
Author Organization [facility] Care Team Providers Care Manager Inpatient Name Role Phone ARTEM ACEVEDO Unavailable Unavailable [facility] Unavailable Unavailable [facility] Unavailable Unavailable LAYNE DOHERTY DO Primary Care Physician Anmol OLIVA, Lynn Unavailable Unavailable Dr. Layne Doherty Primary Care Provider Dr. Layne Doherty Referring Provider Dr. Satish Razo Attending Provider [phone] DAYANARA LEE, DR BAZZI Primary Care Physician [phone] Dr. Layne Doherty Primary Care Provider Dr. Layne Doherty Referring Provider Roof FUEL E[employer]IENT AIRCRAFT DESIGNER, FUEL EFFICIENT AIRCRAFT DESIGNER-Mayra Murphy Attending Provider Dr. Braxton Doss Attending Provider Dr. Layne Doherty Referring Provider Roof F[employer] E[employer]IENT [employer]CRAFT DESIGNER, FUEL EFFICIENT AIRCRAFT DESIGNER-C Maryuri Murphy Attending Provider Dr. Jluis Nichole [...] Romario ROMAN, Dr. Limon Attending Provider Shy F[employer] E[employer]IENT AIRCRAFT DESIGNER-C, Maryuri Murphy Attending Provider Shy FUEL EFF[employer]IENT AIRCRAFT DESIGNER-C, Maryuri Murphy Referring Provider Bailey Salcedo Attending Provider Dayanara LEE, Dr. Bazzi Primary Care Provider Dayanara LEE, Dr. Bazzi Referring Provider [phone] Issa FARRIS-CSharon Attending Provider Dayanara LEE, Dr. Bazzi Primary Care Provider Dayanara LEE, Dr. Bazzi Referring Provider [phone] Bailey Salcedo Referring Provider Dr. Cheng Camarillo MD Attending Provider Issa FARRIS-CSharon Referring Provider [phone] Kali LEE, Dr. Story Other Provider Dr. Cecilio Siu MD Attending Provider Dr. Porsha Bass DO Attending Provider Dr. Porsha Bass DO Referring Provider [phone] TONEY GUTIERREZ Attending Unavailable JOSELITO NIELSEN JR [...] BAZZI Primary Care Unavailable ROMAR DO, DR BAZIZ Attending Unavailable ROMAR DO, DR BAZZI Primary [...] Care Unavailable Romar, Jluis Primary Care Unavailable Israrel Lopez Attending Unavailabl e Romar, Jluis Primary [...] [Antibiotics] Propensity to adverse reactions 11-29-2024 C-diff [facility] Comment on above: Per patient he needs [...] 0 Refill(s), 07/14/25 5:16:00 PM EDT, Pharmacy: [facility]/pharmacy #[id number], 172, cm, 07/04/25 13:52:00 EDT, Height, [...] meds, # 100 tab(s), 1 Refill(s), Pharmacy: [facility] [address], 182.9, cm, 02/22/25 17:36:00 EDT, Height, kg, 02/22/25 17:36:00 EDT, Dosing Weight Start Date: 04/04/25 Stop Date: 10/21/25 Status: Ordered Medication Dispense Status: Completed Quantity: 100.0 Unit: tab(s) Total Allowed Fills: 2 Fills Dispensed: 0 Start: 09-21-2022 take 1 tablet by zach th once daily at bedtime atorvastatin 40 mg oral tablet 1 tab(s), Oral, qHS, # 90 tab(s), 1 Refill(s), Pharmacy: [facility]/pharmacy #4605, 175, cm, 09/21/22 8:31:00 EST, Height, [...] 0 Refill(s), 07/09/25 5:16:00 PM EDT, Pharmacy: [facility]/pharmacy #4605, 172, cm, 07/04/25 13:52:00 EDT, Height, [...] 0 Refill(s), 08/28/24 2:31:00 PM EST, Pharmacy: [facility]/pharmacy #4605, 172, cm, 08/11/24 10:00:00 EST, Height, [...] qDay, # 14 tab(s), 0 Refill(s), Pharmacy: [facility]/pharmacy #4605, 172.7, cm, 12/27/20 12:02:00 EDT, Height, [...] meds, # 100 tab(s), 1 Refill(s), Pharmacy: [facility] [address], 172, cm, 05/23/25 9:57:00 EDT, Height, kg, [...] CHEW, # 180 tab(s), 1 Refill(s), Pharmacy: [facility]/pharmacy #4605, 172, cm, 08/11/24 10:00:00 EST, Height, [...] CHEW, # 180 tab(s), 1 Refill(s), [facility], cm, 12/14/23 8:38:00 EDT, Height, kg, 12/14/23 8:38:00 EDT, Dosing Weight Start Date: 03/29/24 Status: Ordered Start: 12-31-2023 Metoprolol Suc cinate ER 100 mg oral TABLET extended release Dose : 100 mg = 1 tab(s), Oral, BID, TAKE 1 TABLET BY MOUTH TWICE A DAY DO NOT CRUSH OR CHEW, # 180 tab(s), 0 Refill(s), Pharmacy: [facility]/pharmacy #4605, 172, cm, 12/14/23 8:38:00 EDT, Height, [...] 55, # 180 tab(s), 1 Refill(s), [facility], 175, cm, 04/16/22 7:17:00 EDT, Height, kg, 04/16/22 7:17:... Start Date: 07/01/22 Status: Ordered Start: 11-11-2021 take 1 tablet by zach th twice daily Metoprolol Succinate ER 100 mg oral TABLET extended release See Instructions, TAKE 1 TABLET BY MOUTH TWICE A DAY FOR BLOOD PRESSURE. HOLD FOR SBP LESS THAN 110, HR LESS THAN 55, # 180 tab(s), 1 Refill(s), [facility], 175, cm, 06/16/21 8:33:00 EDT, Height, [...] meds, # 90 tab(s), 1 Refill(s), Pharmacy: [facility] [address], 182.9, cm, 02/22/25 17:36:00 EDT, Height, kg, [...] qDay, # 90 tab(s), 0 Refill(s), Pharmacy: [facility]/pharmacy #4605, 172, cm, 02/21/25 9:16:00 EDT, Height, kg, 02/21/25 9:16:00 EDT, Dosing Weight Start Date: 02/21/25 Status: Ordered Quantity: 90.0 Unit: tab(s) Repeat number: 1 Start: 06-28-2024 End: 09-26-2024 sertraline 25 mg oral tablet Dose : 25 mg = 1 tab(s), Oral, qDay, # 90 tab(s), 0 Refill(s), Pharmacy: [facility]/pharmacy #4605, 172, cm, 06/28/24 8:58:00 EDT, Height, kg, 06/28/24 8:49:00 EDT, Dosing Weight Start Date: 06/28/24 Stop Date: 09/26/24 Status: Ordered Quantity: 90.0 Unit: tab(s) Repeat number: 1 [place] [address] mg powder for oral suspension (20 sources) [...] qDay, # 90 tab(s), 0 Refill(s), Pharmacy: [facility]/pharmacy #4605, 172, cm, 08/11/24 10:00:00 EST, Height, kg, 08/11/24 10:00:00 EST, Dosing Weight Start Date: 08/14/24 Status: Ordered Quantity: 90.0 Unit: tab(s) Repeat number: 1 Start: 08-14-2024 Vitamin B12 10 00 mcg oral tablet Dose : 1,000 mcg = 1 tab(s), Oral, qDay, # 90 tab(s), 0 Refill(s), Pharmacy: [facility]/pharmacy #4605, 172, cm, 08/11/24 10:00:00 EST, Height, kg, 08/11/24 10:00:00 EST, Dosing Weight Start Date: 08/14/24 Status: Ordered Vitamin B12 500 mcg oral tablet (1 source) Start: 02-22-2025 End: 05-23-2025 Vitamin B12 500 mcg oral tab let Dose : 500 mcg = 1 tab(s), Oral, qDay, # 90 tab(s), 0 Refill(s), Pharmacy: [facility]/pharmacy #4605, 172, cm, 02/21/25 9:16:00 EDT, Height, [...] DAY, # 180 tab(s), 1 Refill(s), Pharmacy: [facility]/pharmacy #4605, 175, cm, 06/16/21 8:33:00 EDT, Height, [...] 2018 12:00am February 25, 2021 8:19am nystatin 728969 unt/ml oral suspension (12 sources) Polyene Antifungal Start: 06-16-2018 End: 07-07-2018 take 100162 [IU] by mouth four times daily Nystatin 500,000 UNIT/5 ML suspension Discontinued 427552 U PO 4 TIMES DAILY 150 0 [...] 07-30-2025 Potassium [Moles/Vol] 4.5 mmol/L Normal 3.3-5.1 [facility] Comment on above: Performed By: #### L 500.2500, L501.5200 #### [facility] [place], [address] Potassiumon 07-24-2025 Potassium [Moles/Vol] 4.9 mmol/L Normal 3.3-5.1 [facility] Comment on above: Result Comment: Hemo lysis present, Results??could be affected. ?? Performed By: #### L 501.5600 #### [facility] [address] [place], [address] Potassiumon 07-16-2025 Potassium [Moles/Vol] 5.2 mmol/L High 3.3-5.1 [facility] Comment on above: Performed By: #### L 501.5600 #### [facility] [address] [place], [address] .GFRon 07-12-2025 Estimated Glomerular Filtration Rate 35 ml/min/1.73sqm Normal [facility] Comment on above: Result Comment: [...] ADIFF, GFR, CMP, ANEU #### [address] [place], [place] [address] BMPon 07-12-2025 BUN/Creatinine Ratio 17 ratio Normal 7-27 [facility] Comment on above: Order Comment: hemol maya jimenez Performed By: #### C LYNSEY, MDW, MG, ADIFF, GFR, CMP, ANEU #### [address] [place], [place] [address] Calcium [Mass/Vol] 8.5 mg/dL Normal 8.4-10.2 [facility] Comment on above: Order Comment: hemmaya ruiz Performed By: #### C KYUNG MENON, MG, ADIFF, GFR, CMP, ANEU #### [address] [address] Chloride [Moles/Vol] 108 mmol/L High 98-107 [facility] Comment on above: Order Comment: hemmaya ruiz Performed By: #### KYUNG SANTOS, MG, ADIFF, GFR, CMP, ANEU #### [address] [address] CO2 [Moles/Vol] 26 mmol/L Normal 23-31 [facility] Comment on above: Order Comment: hemmaya ruiz Performed By: #### KYUNG SANTOS, MG, ADIFF, GFR, CMP, ANEU #### [address] [address] Creatinine [Mass/Vol] 1.86 mg/dL High 0.67-1.17 [facility] Comment on above: Order Comment: hemmaya ruiz Performed By: #### KYUNG SANTOS, MG, ADIFF, GFR, CMP, ANEU #### [address] [address] Electrolyte Balance 6.0 mEq/L Normal 4.0-15.0 [facility] Comment on above: Order Comment: hemmaya ruiz Performed By: #### KYUNG SANTOS, MG, ADIFF, GFR, CMP, ANEU #### [address] [address] Glucose [Mass/Vol] 162 mg/dL High 83-110 [facility] Comment on above: Order Comment: hemmaya ruiz Performed By: #### KYUNG SANTOS, MG, ADIFF, GFR, CMP, ANEU #### [address] [address] Potassium [Moles/Vol] 5.2 mmol/L High 3.5-5.1 [facility] Comment on above: Order Comment: hemol maya jimenez Performed By: #### C LYNSEY, KYUNG, MG, ADIFF, GFR, CMP, ANEU #### [address] [place], [place] [address] Sodium [Moles/Vol] 140 mmol/L Normal 136-145 [facility] Comment on above: Order Comment: maya rosa Performed By: #### C LYNSEY, KYUNG, MG, ADIFF, GFR, CMP, ANEU #### [address] [place], [place] [address] Urea nitrogen [Mass/Vol] 31 mg/dL High 7-18 [facility] Comment on above: Order Comment: maya rosa Performed By: #### C LYNSEY, KYUNG, MG, ADIFF, GFR, CMP, ANEU #### [address] [place], [place] [address] LABORATORYOrdered By: SYSTEM SYSTEM on 07-12-2025 Calcium [...] [Moles/Vol] 6.0 mmol/L Invalid Interpretation Code 3.3-5.1 [facility] Comment on above: Result Comment: Crit ical Result(s) Called MSHRIVER at: 1832 by: BRIDGETTE??Results read back by same. Performed By: #### L 501.5600 #### [facility] [address], [address] XR RIBS 2 VIEWS RIGHTon 06-20 XR [...] 11:17:47 AM Ordering Provider: JLUIS NICHOLE RP [facility] XR SHOULDER MINIMUM 2 VIEWS RIGHTon [...] Sign Date: 07/06/2025 11:19:30 AM Ordering Provider: JLIUS NICHOLE [facility] CT HEAD OR BRAIN W/O CONTRAS [...] 4:57:02 PM Ordering Provider: JLUIS NICHOLE Normal [facility] Paul 07-05-2025 Potassium [Moles/Vol] 5.3 mmol/L High 3.5-5.1 L [facility] Comment on above: Performed By: #### C KYUNG MENON, MG, ADIFF, GFR, CMP, ANEU #### [address] [address] LABORATORYOrdered By: SYSTEM SYSTEM on 07-05-2025 Potassium [Moles/Vol] 5.3 mmol/L High 3.5 - 5.1 mmol/L AO ADM SS .Auto Diffon 07-04-2025 Basophil, Absolute 0.0 10 3/mcL Normal 0.0-0.3 [facility] Comment on above: Performed By: #### C KYUNG MENON, MG, ADIFF, GFR, CMP, ANEU #### [address] [address] Basophils/100 WBC (Bld) 0.7 % Normal 0.0-2.5 [facility] Comment on above: Performed By: #### C KYUNG MENON, MG, ADIFF, GFR, CMP, ANEU #### [address] [address] Eosinophil, Absolute 0.1 10 3/mcL Normal 0.0-0.7 [facility] Comment on above: Performed By: #### C KYUNG MENON, MG, ADIFF, GFR, CMP, ANEU #### [address] [place], [place] [address] Eosinophils/100 WBC (Bld) 1.8 % Normal 0.0-6.0 [facility] Comment on above: Performed By: #### C LYNSEY, KYUNG, MG, ADIFF, GFR, CMP, ANEU #### [address] [address] Lymphocyte, Absolute 1.5 10 3/mcL Normal 0.9-4.3 [facility] Comment on above: Performed By: #### C LYNSEY, W, MG, ADIFF, GFR, CMP, ANEU #### [address] [address] Lymphocytes/100 WBC (Bld) 20.8 % Normal 20.0-40.0 [facility] Comment on above: Performed By: #### C LYNSEY, KYUNG, MG, ADIFF, GFR, CMP, ANEU #### [address] [address] Monocyte, Absolute 0.5 10 3/mcL Normal 0.1-1.4 [facility] Comment on above: Performed By: #### C LYNSEY, W, MG, ADIFF, GFR, CMP, ANEU #### [address] [address] Monocytes/100 WBC (Bld) 7.7 % Normal 2.0-13.0 [facility] Comment on above: Performed By: #### C LYNSEY, KYUNG, MG, ADIFF, GFR, CMP, ANEU #### [address] [address] Neutrophils/100 WBC (Bld) 69.0 % Normal 50.0-75.0 [facility] Comment on above: Performed By: #### C LYNSEY, W, MG, ADIFF, GFR, CMP, ANEU #### [address] [address] .GFRon 07-04-2025 Estimated Glomerular Filtration Rate 36 ml/min/1.73sqm Normal [facility] Comment on above: Result Comment: [...] MENON, MG, ADIFF, GFR, CMP, ANEU #### [place] [address] .NEUABSon 07-04-2025 Neutrophil, Absolute 4.9 10 3/mcL Normal 2.3-8.1 [facility] Comment on above: Performed By: #### C KYUNG MENON, MG, ADIFF, GFR, CMP, ANEU #### [place] [address] CBCon 07-04-2025 Erythrocyte distribution width (RBC) [Ratio] 16.2 % High 11.5-15.5 [facility] Comment on above: Performed By: #### C KYUNG MENON, MG, ADIFF, GFR, CMP, ANEU #### [place] [address] Hematocrit (Bld) [Volume fraction] 33.6 % Low 40.0-52.0 [facility] Comment on above: Performed By: #### C KYUNG MENON, MG, ADIFF, GFR, CMP, ANEU #### [place] [address] Hgb 11.1 G/dL Low 13.0-17.5 [facility] Comment on above: Performed By: #### C KYUNG MENON, MG, ADIFF, GFR, CMP, ANEU #### [place] [address] MCH (RBC) [Entitic mass] 31.1 pg Normal 27.0-33.0 [facility] Comment on above: Performed By: #### C KYUNG MENON, MG, ADIFF, GFR, CMP, ANEU #### [address] [address] MCHC 32.9 G/dL Normal 32.0-36.0 [facility] Comment on above: Performed By: #### C KYUNG MENON, MG, ADIFF, GFR, CMP, ANEU #### [address] [address] MCV (RBC) [Entitic vol] 94.6 fL Normal 81.0-100.0 A [facility] Comment on above: Performed By: #### C KYUNG MENON, MG, ADIFF, GFR, CMP, ANEU #### [place] [address] Platelet 107 10 3/mcL Low 150-450 [facility] Comment on above: Performed By: #### C KYUNG MENON, MG, ADIFF, GFR, CMP, ANEU #### [place] [address] Platelet mean volume (Bld) [Entitic vol] 8.5 fL Normal 6.4-10.5 [facility] Comment on above: Performed By: #### C KYUNG MENON, MG, ADIFF, GFR, CMP, ANEU #### [address] [address] RBC 3.55 10 6/mcL Low 4.50-6.00 [facility] Comment on above: Performed By: #### C KYUNG MENON, MG, ADIFF, GFR, CMP, ANEU #### [address] [address] WBC 7.1 10 3/mcL Normal 4.5-10.8 [facility] Comment on above: Performed By: #### C KYUNG MENON, MG, ADIFF, GFR, CMP, ANEU #### [place] [address] CMPon 07-04-2025 Albumin Level 3.7 G/dL Normal 3.4-4.8 [facility] Comment on above: Performed By: #### C KYUNG MENON, MG, ADIFF, GFR, CMP, ANEU #### [place] [address] Albumin/Globulin [Mass ratio] 1.2 {ratio} Normal 1.1-2.5 [facility] Comment on above: Performed By: #### C LYNSEY, KYUNG, MG, ADIFF, GFR, CMP, ANEU #### [place] [address] ALP [Catalytic activity/Vol] 108 U/L Normal 40-135 [facility] Comment on above: Performed By: #### C LYNSEY, KYUNG, MG, ADIFF, GFR, CMP, ANEU #### [place] [address] ALT/SGPT <6 Low 16-63 [facility] Comment on above: Performed By: #### C KYUNG MENON, MG, ADIFF, GFR, CMP, ANEU #### [place] [address] AST [Catalytic activity/Vol] 12 U/L Normal 10-40 [facility] Comment on above: Performed By: #### C KYUNG MENON, MG, ADIFF, GFR, CMP, ANEU #### [address] [place] [id number] Bili Total 0.7 mg/dL Normal 0.2-1.0 [facility] Comment on above: Result Comment: Use of this assay is not recommended for patients undergoing treatment with eltrombopag due to the potential for falsely elevated results. Performed By: #### C KYUNG MENON, MG, ADIFF, GFR, CMP, ANEU #### [place] [address] BUN/Creatinine Ratio 17 ratio Normal 7-27 [facility] Comment on above: Performed By: #### C KYUNG MENON, MG, ADIFF, GFR, CMP, ANEU #### [place] [address] Calcium [Mass/Vol] 9.1 mg/dL Normal 8.4-10.2 [facility] Comment on above: Performed By: #### C KYUNG MENON, MG, ADIFF, GFR, CMP, ANEU #### [address] [address] Chloride [Moles/Vol] 110 mmol/L High 98-107 [facility] Comment on above: Performed By: #### C KYUNG MENON, MG, ADIFF, GFR, CMP, ANEU #### [place] [address] CO2 [Moles/Vol] 28 mmol/L Normal 23-31 [facility] Comment on above: Performed By: #### C KYUNG MENON, MG, ADIFF, GFR, CMP, ANEU #### [place] [id number] Creatinine [Mass/Vol] 1.82 mg/dL High 0.67-1.17 [facility] Comment on above: Performed By: #### C KYUNG MENON, MG, ADIFF, GFR, CMP, ANEU #### [address] [address] Electrolyte Balance 5.0 mEq/L Normal 4.0-15.0 [facility] Comment on above: Performed By: #### C KYUNG MENON, MG, ADIFF, GFR, CMP, ANEU #### [address] [address] Globulin 3.1 G/dL Normal 2.7-4.4 [facility] Comment on above: Performed By: #### C KYUNG MENON, MG, ADIFF, GFR, CMP, ANEU #### [address] [address] Glucose [Mass/Vol] 68 mg/dL Low 83-110 [facility] Comment on above: Performed By: #### C KYUNG MENON, MG, ADIFF, GFR, CMP, ANEU #### [address] [address] Potassium [Moles/Vol] 5.4 mmol/L High 3.5-5.1 [facility] Comment on above: Performed By: #### C KYUNG MENON, MG, ADIFF, GFR, CMP, ANEU #### [address] [place], [place] [address] Sodium [Moles/Vol] 143 mmol/L Normal 136-145 [facility] Comment on above: Performed By: #### C KYUNG MENON, MG, ADIFF, GFR, CMP, ANEU #### [address] [place], [place] [address] Total Protein 6.8 G/dL Normal 6.4-8.2 [facility] Comment on above: Performed By: #### C KYUNG MENON, MG, ADIFF, GFR, CMP, ANEU #### [address] [place], [place] [address] Urea nitrogen [Mass/Vol] 31 mg/dL High 7-18 [facility] Comment on above: Performed By: #### C KYUNG MENON, MG, ADIFF, GFR, CMP, ANEU #### [address] [address] LABORATORYOrdered By: SYSTEM SYSTEM on 07-04-2025 Albumin [...] Culture Urine No growth at 48 hours. [facility] Work Phone: PBNPon 07-04-2025 Natriuretic peptide B (Bld) [Mass/Vol] 1302 pg/mL High 0-450 [facility] Comment on above: Result Comment: NT-p roBNP results of less than 300 pg/mL effectively rules out acute congestive heart failure with 99% negative predictive value. Performed By: #### C BC, MDW, MG, ADIFF, GFR, CMP, ANEU #### [facility] [address] [place], [place] [address] XR CHEST 2 VIEWSon XR CHEST 2 [...] PM Ordering Provider: JLUIS NICHOLE RP Normal [facility] XR HUMERUS MINIMUM 2 VIEWS [...] PM Ordering Provider: JLUIS NICHOLE RP Normal [facility] Neurology Visit Reporton Neurology Visit Report [facility] [address] [facility], [address] [place] [address] OFFICE VISIT Date of Service: 06/11/25 MR#: [id number] Acct: [id number] Name: EKATERINA RANDHAWA Rep #: [id number] : 1940 Provider: Dr. Braxton garg MD Age/Sex: 85/M Location: [facility]. 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 He [...] pattern). Head (more content not included)... Normal [facility] Anion gap in Serum or Plasma Ordered By: Porsha Bass on 04-26-2025 Anion gap [Moles/Vol] 11 mmol/L - [facility] BUN/creatinine ratioOrdered By: Porsha Bass on 04-26-2025 Urea nitrogen/Creatinine [Mass ratio] 14.1 mg/mg - [facility] Basic Metabolic Profile (BMP )on 04-26-2025 BUN/CRE 14.1 RATIO Normal 07-09 [facility] Comment on above: Performed By: #### L 500.2500 #### [facility] [place], [address] Calcium [Mass/Vol] 9.1 mg/dL Normal 7.6-11.0 [facility] Comment on above: Performed By: #### L 500.2500 #### [facility] [address] [place], [address] Chloride [Moles/Vol] 106 mmol/L Normal 98-108 [facility] Comment on above: Performed By: #### L 500.2500 #### [facility] [address] [place], [address] CO2 [Moles/Vol] 20.7 mmol/L Low 21.0-32.0 [facility] Comment on above: Performed By: #### L 500.2500 #### [facility] [address] [place], [address] Creatinine [Mass/Vol] 1.85 mg/dL High 0.70-1.20 [facility] Comment on above: Performed By: #### L 500.2500 #### [facility] [address], [address] GAP 11 Normal 5-15 [facility] Comment on above: Performed By: #### L 500.2500 #### [facility] [address] [place], [address] GFR/1.73 sq M.predicted among non-blacks MDRD (S/P/Bld) [Vol rate/Area] 35 mL/min/{1.73_m2} Low >60 [facility] Comment on above: Result Comment: mL/m in/1.73m2 CKD-EPI Creatinine Equation (2020) Performed By: #### L 500.2500 #### [facility] [address] [place], [address] Glucose [Mass/Vol] 174 mg/dL High 70-99 [facility] Comment on above: Performed By: #### L 500.2500 #### [facility] [address] [place], [address] Potassium [Moles/Vol] 4.4 mmol/L Normal 3.3-5.1 [facility] Comment on above: Performed By: #### L 500.2500 #### [facility] [address] [place], [place], [id number] Sodium [Moles/Vol] 138 mmol/L Normal 133-145 [facility] Comment on above: Performed By: #### L 500.2500 #### [facility] [address] [place], [address] Urea nitrogen [Mass/Vol] 26 mg/dL High 4-19 [facility] Comment on above: Performed By: #### L 500.2500 #### [facility] [address] [place], [address] Carbon dioxide, total [Moles /volume] in Central venous bloodOrdered By: Porsha Bass on 04-26-2025 CO2 [Moles/Vol] 20.7 mmol/L Low 21.0-32.0 [facility] Chloride assayOrdered By: Kev Bass on 04-26-2025 Chloride [Moles/Vol] 106 mmol/L 98-108 [facility] Glomerular filtration rate ( GFR) estimation/1.73 sq m using serum, plasma, or whole bOrdered By: Porsha Bass on 04-26-2025 GFR/1.73 sq M.predicted among non-blacks MDRD (S/P/Bld) [Vol rate/Area] 35 mL/min/{1.73_m2} Low >60 [facility] Comment on above: mL/min/1.73m2 CKD-EP I Creatinine Equation (2020) Kidney and Bladderon 025 Kidney and Bladder [facility] Imaging Services [address] [place], [place] [address] Kidney and Bladder MR#: [id number] Acct: [id number] Name: EKATERINA RANDHAWA Rep #: [id number] : 1940 M 85 From: Konrad gaston MD PCP: Dr. Jluis Nichole, DO Status: REG CLI Study: Kidney and Bladder Date of Exam: 04/26/25 Exam# [id number] Ordering Dr: Porsha Bass DO PROCEDURE: KIDNEY AND BLADDER 04/26/2025 REASON FOR EXAM: HYPERKALEMIA TECHNIQUE: KIDNEY AND BLADDER COMPARISON: None FINDINGS: Kidneys: Normal renal sizes, parenchymal thicknesses, and echotextures. [place]: No evidence of hydronephrosis. Cysts or Masses: [...] Bladder IMPRESSION: NORMAL RENAL ULTRASOUND. Reading Location: [id number] CC: Dr. Porsha Bass DO; Dr. Jluis Nichole DO Director Of Global Sales: Signed Normal [facility] Potassium measurement (mass/ volume)Ordered By: Porsha Bass on 04-26-2025 Potassium (Unsp spec) [Mass/Vol] 4.4 mmol/L 3.3-5.1 [facility] Serum creatinine measurement (mass/volume)Ordered By: Porsha Bass on 04-26-2025 Creatinine [Mass/Vol] 1.85 mg/dL High 0.70-1.20 [facility] Serum glucose measurement (m ass/volume)Ordered By: Porsha Bass on 04-26-2025 Glucose [Mass/Vol] 174 mg/dL High 70-99 [facility] Serum or plasma calcium francisco urement (mass/volume)Ordered By: Porsha Bass on 04-26-2025 Calcium [Mass/Vol] 9.1 mg/dL 7.6-11.0 [facility] Serum or plasma urea nitroge n measurement (mass/volume)Ordered By: Porsha Bass on 04-26-2025 Urea nitrogen [Mass/Vol] 26 mg/dL High 4-19 [facility] Sodium levelOrdered By: Seth Bass on 04-26-2025 Sodium [Moles/Vol] 138 mmol/L 133-145 [facility] Anion gap in Serum or Plasma Ordered By: Porsha Bass on 04-19-2025 Anion gap [Moles/Vol] 10 mmol/L - [facility] BUN/creatinine ratioOrdered By: Porsha Bass on 04-19-2025 Urea nitrogen/Creatinine [Mass ratio] 13.8 mg/mg 07-09 [facility] Basic Metabolic Profile (BMP )on 04-19-2025 BUN/CRE 13.8 RATIO Normal 07-09 [facility] Comment on above: Performed By: #### L 500.2500 #### [facility] [address] [place], [address] Calcium [Mass/Vol] 9.1 mg/dL Normal 7.6-11.0 [facility] Comment on above: Performed By: #### L 500.2500 #### [facility] [address] [place], [address] Chloride [Moles/Vol] 107 mmol/L Normal 98-108 [facility] Comment on above: Performed By: #### L 500.2500 #### [facility] [address] [place], [address] CO2 [Moles/Vol] 23.5 mmol/L Normal 21.0-32.0 [facility] Comment on above: Performed By: #### L 500.2500 #### [facility] [address] [place], [address] Creatinine [Mass/Vol] 1.99 mg/dL High 0.70-1.20 [facility] Comment on above: Performed By: #### L 500.2500 #### [facility] [address] [place], [address] GAP 10 Normal - [facility] Comment on above: Performed By: #### L 500.2500 #### [facility] [address] [place], [address] GFR/1.73 sq M.predicted among non-blacks MDRD (S/P/Bld) [Vol rate/Area] 32 mL/min/{1.73_m2} Low >60 [facility] Comment on above: Result Comment: mL/m in/1.73m2 CKD-EPI Creatinine Equation (2020) Performed By: #### L 500.2500 #### [facility] [address] [place], [address] Glucose [Mass/Vol] 117 mg/dL High 70-99 [facility] Comment on above: Performed By: #### L 500.2500 #### [facility] [address] [place], [address] Potassium [Moles/Vol] 5.7 mmol/L High 3.3-5.1 [facility] Comment on above: Performed By: #### L 500.2500 #### [facility] [address] [place], [address] Sodium [Moles/Vol] 140 mmol/L Normal 133-145 [facility] Comment on above: Performed By: #### L 500.2500 #### [facility] [address] [place], [address] Urea nitrogen [Mass/Vol] 27 mg/dL High 4-19 [facility] Comment on above: Performed By: #### L 500.2500 #### [facility] [address] [place], [address] Carbon dioxide, total [Moles /volume] in Central venous bloodOrdered By: Porsha Bass on 04-19-2025 CO2 [Moles/Vol] 23.5 mmol/L 21.0-32.0 [facility] Chloride assayOrdered By: Kev Bass on 04-19-2025 Chloride [Moles/Vol] 107 mmol/L 98-108 [facility] Glomerular filtration rate ( GFR) estimation/1.73 sq m using serum, plasma, or whole bOrdered By: Porsha Bass on 04-19-2025 GFR/1.73 sq M.predicted among non-blacks MDRD (S/P/Bld) [Vol rate/Area] 32 mL/min/{1.73_m2} Low >60 [facility] Comment on above: mL/min/1.73m2 CKD-EP I Creatinine Equation (2020) Potassium measurement (mass/ volume)Ordered By: Porsha Bass on 04-19-2025 Potassium (Unsp spec) [Mass/Vol] 5.7 mmol/L High 3.3-5.1 [facility] Serum creatinine measurement (mass/volume)Ordered By: Porsha Bass on 04-19-2025 Creatinine [Mass/Vol] 1.99 mg/dL High 0.70-1.20 [facility] Serum glucose measurement (m ass/volume)Ordered By: Porsha Bass on 04-19-2025 Glucose [Mass/Vol] 117 mg/dL High 70-99 [facility] Serum or plasma calcium francisco urement (mass/volume)Ordered By: Porsha Bass on 04-19-2025 Calcium [Mass/Vol] 9.1 mg/dL 7.6-11.0 [facility] Serum or plasma urea nitroge n measurement (mass/volume)Ordered By: Porsha Bass on 04-19-2025 Urea nitrogen [Mass/Vol] 27 mg/dL High 4-19 [facility] Sodium levelOrdered By: Seth Bass on 04-19-2025 Sodium [Moles/Vol] 140 mmol/L 133-145 [facility] Anion gap in Serum or Plasma Ordered By: Porsha Bass on 04-10-2025 Anion gap [Moles/Vol] 10 mmol/L 5-15 [facility] BUN/creatinine ratioOrdered By: Porsha Bass on 04-10-2025 Urea nitrogen/Creatinine [Mass ratio] 16.9 mg/mg 10- [facility] Basic Metabolic Profile (BMP )on 04-10-2025 BUN/CRE 16.9 RATIO Normal - [facility] Comment on above: Performed By: #### L 500.2500, L501.5200 #### [facility] [place], [address] Calcium [Mass/Vol] 9.4 mg/dL Normal 7.6-11.0 [facility] Comment on above: Performed By: #### L 500.2500, L501.5200 #### [facility] [address] [place], [address] Chloride [Moles/Vol] 107 mmol/L Normal 98-108 [facility] Comment on above: Performed By: #### L 500.2500, L501.5200 #### [facility] [address] [place], [address] CO2 [Moles/Vol] 23.1 mmol/L Normal 21.0-32.0 [facility] Comment on above: Performed By: #### L 500.2500, L501.5200 #### [facility] [address] [place], [address] Creatinine [Mass/Vol] 1.80 mg/dL High 0.70-1.20 [facility] Comment on above: Performed By: #### L 500.2500, L501.5200 #### [facility] [address] [place], [address] GAP 10 Normal 5-15 [facility] Comment on above: Performed By: #### L 500.2500, L501.5200 #### [facility] [address] [place], [address] GFR/1.73 sq M.predicted among non-blacks MDRD (S/P/Bld) [Vol rate/Area] 36 mL/min/{1.73_m2} Low >60 [facility] Comment on above: Result Comment: mL/m in/1.73m2 CKD-EPI Creatinine Equation (2020) Performed By: #### L 500.2500, L501.5200 #### [facility] [address] [place], [address] Glucose [Mass/Vol] 129 mg/dL High 70-99 [facility] Comment on above: Performed By: #### L 500.2500, L501.5200 #### [facility] [address] [place], [address] Potassium [Moles/Vol] 5.5 mmol/L High 3.3-5.1 [facility] Comment on above: Performed By: #### L 500.2500, L501.5200 #### [facility] [address] [place], [address] Sodium [Moles/Vol] 140 mmol/L Normal 133-145 [facility] Comment on above: Performed By: #### L 500.2500, L501.5200 #### [facility] [address] [place], [address] Urea nitrogen [Mass/Vol] 30 mg/dL High 4-19 [facility] Comment on above: Performed By: #### L 500.2500, L501.5200 #### [facility] [address] [place], [address] Carbon dioxide, total [Moles /volume] in Central venous bloodOrdered By: Porsha Bass on 04-10-2025 CO2 [Moles/Vol] 23.1 mmol/L 21.0-32.0 [facility] Carotid Duplex Ultrasoundon 04-10-2025 Carotid Duplex Ultrasound [facility] [address] [place] [address] Carotid Duplex Ultrasound 04/10/25 1303 MR#: [id number] Acct: [id number] Name: EKATERINA RANDHAWA Rep #: [id number] : 1940 85 From: Cecilio Siu MD Attending Dr: WON FernándezC Status: REG C KELVIN Ordering Dr: Sharon Parsons [employer] Date: 04/10/25 Location: [facility] Sex: M C Admitted: Reason For Study [...] the left vertebral artery. Procedure Carotid Duplex 63799. This is a Carotid Duplex examination using B-mode, color flow and specral Doppler. Exam performed in department. VL/Carotid Duplex Ultrasound Interpretation Summary Mild (<50%) stenosis right extracranial internal carotid. Mild (<50%) stenosis left extracranial internal carotid. Patent and antegrade vertebrals bilaterally. ___ Ordering Physician: Sharon Parsons Referring Physician: Jluis Nichole DO Performed By: Arelis Boyer, RVT 04/10/25 1425 Date Cecilio Siu MD CC: [employer] Sharon Parsons; Dr. Jluis Nichole DO Date Dictated: 04/10/25 1303 Date Transcribed: 04/10/25 142 Director Of Global Sales: Signed Normal [facility] Chloride assayOrdered By: Kev Bass on 04-10-2025 Chloride [Moles/Vol] 107 mmol/L 98-108 [facility] Duplex ultrasound of carotid artery reportOrdered By: Cecilio Siu on 04-10-2025 Study report [facility] [address] [place] [address] Carotid Duplex Ultrasound 04/10/25 1303 MR#: [id number] Acct: [id number] Name: EKATERINA RANDHAWA Rep #:[id number] : 1940 85 From: Cecilio Bautista Attending Dr: OBIE Fernández S tatus: REG CLI Ordering Dr: Sharon Parsons Date: 04/10/25 Location: [facility] Sex: M C Admitted: Reason For Study [...] the left vertebral artery. Procedure Carotid Duplex 11326. This is a Carotid Duplex examination using [...] Dictated: 04/10/25 1303 Date Transcribed: 04/10/25 1425 Director Of Global Sales: Signed [facility] Work Phone: Glomerular filtration rate ( GFR) estimation/1.73 sq m using serum, plasma, or whole bOrdered By: Porsha Bass on 04-10-2025 GFR/1.73 sq M.predicted among non-blacks MDRD (S/P/Bld) [Vol rate/Area] 36 mL/min/{1.73_m2} Low >60 [facility] Comment on above: mL/min/1.73m2 CKD-EP I Creatinine Equation (2020) Magnesiumon 04-10-2025 Magnesium [Mass/Vol] 2.0 mg/dL Normal 1.5-2.2 [facility] Comment on above: Performed By: #### L 500.2500, L501.5200 #### [facility] [address] [place], [address] Magnesium measurement (mass/ volume)Ordered By: Porsha Bass on 04-10-2025 Magnesium (Unsp spec) [Mass/Vol] 2.0 mg/dL 1.5-2.2 [facility] Potassium measurement (mass/ volume)Ordered By: Porsha Bass on 04-10-2025 Potassium (Unsp spec) [Mass/Vol] 5.5 mmol/L High 3.3-5.1 [facility] Serum creatinine measurement (mass/volume)Ordered By: Porsha Bass on 04-10-2025 Creatinine [Mass/Vol] 1.80 mg/dL High 0.70-1.20 [facility] Serum glucose measurement (m ass/volume)Ordered By: Porsha Bass on 04-10-2025 Glucose [Mass/Vol] 129 mg/dL High 70-99 [facility] Serum or plasma calcium francisco urement (mass/volume)Ordered By: Porsha Bass on 04-10-2025 Calcium [Mass/Vol] 9.4 mg/dL 7.6-11.0 [facility] Serum or plasma urea nitroge n measurement (mass/volume)Ordered By: Porsha Bass on 04-10-2025 Urea nitrogen [Mass/Vol] 30 mg/dL High 4-19 [facility] Sodium levelOrdered By: Seth Bass on 04-10-2025 Sodium [Moles/Vol] 140 mmol/L 133-145 [facility] Echo Completeon 03-28-2025 Echo Complete [facility] [address] [place] [address] Echo Complete 03/28/25 1258 MR#: [id number] Acct: [id number] Name: EKATERINA RANDHAWA Rep #: [id number] : 1940 85 From: Cheng Camarillo MD Attending Dr: DG Fontana Status: REG CLI Ordering Dr: Bailey Howe Date: 06/14 Location: [facility] Sex: M C Admitted: Reason For Study [...] [place] Date Dictated: 03/28/251257 Date Transcribed: 03/28/251840 Director Of Global Sales: Signed Normal [facility] Echocardiogram study reportO rdered By: Cheng Camarillo on 03-28-2025 Study report [facility] [address] [place] [address] Echo Complete 03/28/25 1258 MR#: [id number] Acct: [id number] Name: EKATERINA RANDHAWA Rep #:[id number] : 1940 85 From: Cheng Bautista Attending [...] Date Dictated: 03/28/25 1258 Date Transcribed: 03/28/251840 Director Of Global Sales: Signed [facility] Work Phone: Neurology Visit Reporton Neurology Visit Report [facility] [address] [facility], [address] [place] [address] OFFICE VISIT Date of Service: 03/28/25 MR#: [id number] Acct: [id number] Name: EKATERINA RANDHAWA Rep #: [id number] : 1940 Provider: OBIE key Age/Sex: 85/M Location: [facility]. Status: Signed [facility] HPI Chief Complaint: Details: Interim History: Ekaterina [...] this began during his hospitalization for his PR/CABG and may have been procedure related). He [...] acute o (more content not included)... 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 Encounter Status:Closed by DEB OROZCO on 06/07/25 Normal [facility] INTABon 02-24-2025 Intrinsic Factor Abs 0.9 Au/mL Normal 0.0-1.1 [facility] Comment on above: Result Comment: Perf ormed At: [facility] [id number] Jacques Ferrell MD Ph:[phone] Performed By: #### C KYUNG MENON, MG, ADIFF, GFR, CMP, ANEU #### [address] [address] .Auto Diffon 02-22-2025 Basophil, Absolute 0.1 10 3/mcL Normal 0.0-0.3 [facility] Comment on above: Performed By: #### C KYUNG MENON, MG, ADIFF, GFR, CMP, ANEU #### [address] [address] Basophils/100 WBC (Bld) 1.4 % Normal 0.0-2.5 [facility] Comment on above: Performed By: #### C KYUNG MENON, MG, ADIFF, GFR, CMP, ANEU #### [address] [address] Eosinophil, Absolute 0.1 10 3/mcL Normal 0.0-0.7 [facility] Comment on above: Performed By: #### C LYNSEY, KYUNG, MG, ADIFF, GFR, CMP, ANEU #### [address] [address] Eosinophils/100 WBC (Bld) 2.0 % Normal 0.0-6.0 [facility] Comment on above: Performed By: #### C KYUNG MENON, MG, ADIFF, GFR, CMP, ANEU #### [address] [address] Lymphocyte, Absolute 1.5 10 3/mcL Normal 0.9-4.3 [facility] Comment on above: Performed By: #### C KYUNG MENON, MG, ADIFF, GFR, CMP, ANEU #### [address] [address] Lymphocytes/100 WBC (Bld) 26.0 % Normal 20.0-40.0 [facility] Comment on above: Performed By: #### C KYUNG MENON, MG, ADIFF, GFR, CMP, ANEU #### [address] [address] Monocyte, Absolute 0.5 10 3/mcL Normal 0.1-1.4 [facility] Comment on above: Performed By: #### C KYUNG MENON, MG, ADIFF, GFR, CMP, ANEU #### [address] [address] Monocytes/100 WBC (Bld) 7.8 % Normal 2.0-13.0 [facility] Comment on above: Performed By: #### C KYUNG MENNO, MG, ADIFF, GFR, CMP, ANEU #### [address] [address] Neutrophils/100 WBC (Bld) 62.8 % Normal 50.0-75.0 [facility] Comment on above: Performed By: #### C BC, MDW, MG, ADIFF, GFR, CMP, ANEU #### [address] [address] .GFRon 02-22-2025 Estimated Glomerular Filtration Rate 30 ml/min/1.73sqm Normal [facility] Comment on above: Result Comment: [...] MDW, MG, ADIFF, GFR, CMP, ANEU #### [place] [address] .MDWon 02-22-2025 Monocyte Distribution Width 17.57 Normal 0.00-20.00 [facility] Comment on above: Result Comment: For ED adult patients suspected of sepsis, MDW<=20.0 does not rule out sepsis or risk of sepsis Performed By: #### C BC, MDW, MG, ADIFF, GFR, CMP, ANEU #### [place] [address] .NEUABSon 02-22-2025 Neutrophil, Absolute 3.6 10 3/mcL Normal 2.3-8.1 [facility] Comment on above: Performed By: #### C BC, MDW, MG, ADIFF, GFR, CMP, ANEU #### [place] [address] CBCon 02-22-2025 Erythrocyte distribution width (RBC) [Ratio] 15.6 % High 11.5-15.5 [facility] Comment on above: Performed By: #### C BC, MDW, MG, ADIFF, GFR, CMP, ANEU #### [place] [address] Hematocrit (Bld) [Volume fraction] 32.7 % Low 40.0-52.0 [facility] Comment on above: Performed By: #### C KYUNG MENON, MG, ADIFF, GFR, CMP, ANEU #### [place] [address] Hgb 10.8 G/dL Low 13.0-17.5 [facility] Comment on above: Performed By: #### C KYUNG MENON, MG, ADIFF, GFR, CMP, ANEU #### [place] [address] MCH (RBC) [Entitic mass] 29.5 pg Normal 27.0-33.0 [facility] Comment on above: Performed By: #### C KYUNG MENON, MG, ADIFF, GFR, CMP, ANEU #### [place] [address] MCHC 33.0 G/dL Normal 32.0-36.0 [facility] Comment on above: Performed By: #### C KYUNG MENON, MG, ADIFF, GFR, CMP, ANEU #### [place] [address] MCV (RBC) [Entitic vol] 89.5 fL Normal 81.0-100.0 [facility] Comment on above: Performed By: #### C KYUNG MENON, MG, ADIFF, GFR, CMP, ANEU #### [place] [address] Platelet 104 10 3/mcL Low 150-450 [facility] Comment on above: Performed By: #### C KYUNG MENON, MG, ADIFF, GFR, CMP, ANEU #### [place] [address] Platelet mean volume (Bld) [Entitic vol] 7.2 fL Normal 6.4-10.5 [facility] Comment on above: Performed By: #### C KYUNG MENON, MG, ADIFF, GFR, CMP, ANEU #### [address] [address] RBC 3.65 10 6/mcL Low 4.50-6.00 [facility] Comment on above: Performed By: #### C KYUNG MENON, MG, ADIFF, GFR, CMP, ANEU #### [address] [address] WBC 5.8 10 3/mcL Normal 4.5-10.8 [facility] Comment on above: Performed By: #### C KYUNG MENON, MG, ADIFF, GFR, CMP, ANEU #### [address] [address] CMPon 02-22-2025 ALT [Catalytic activity/Vol] 9 U/L Low 16-63 [facility] Comment on above: Performed By: #### C KYUNG MENON, MG, ADIFF, GFR, CMP, ANEU #### [address] [address] Albumin Level 3.7 G/dL Normal 3.4-4.8 [facility] Comment on above: Performed By: #### C KYUNG MENON, MG, ADIFF, GFR, CMP, ANEU #### [address] [address] Albumin/Globulin [Mass ratio] 1.3 {ratio} Normal 1.1-2.5 [facility] Comment on above: Performed By: #### C KYUNG MENON, MG, ADIFF, GFR, CMP, ANEU #### [address] [address] ALP [Catalytic activity/Vol] 99 U/L Normal 40-135 [facility] Comment on above: Performed By: #### C KYUNG MENON, MG, ADIFF, GFR, CMP, ANEU #### [address] [address] AST [Catalytic activity/Vol] 14 U/L Normal 10-40 [facility] Comment on above: Performed By: #### C KYUNG MENON, MG, ADIFF, GFR, CMP, ANEU #### [address] [address] Bili Total 0.5 mg/dL Normal 0.2-1.0 [facility] Comment on above: Result Comment: Use of this assay is not recommended for patients undergoing treatment with eltrombopag due to the potential for falsely elevated results. Performed By: #### C LYNSEY, KYUNG, MG, ADIFF, GFR, CMP, ANEU #### [address] [address] BUN/Creatinine Ratio 16 ratio Normal 7-27 [facility] Comment on above: Performed By: #### C KYUNG MENON, MG, ADIFF, GFR, CMP, ANEU #### [address] [address] Calcium [Mass/Vol] 8.9 mg/dL Normal 8.4-10.2 [facility] Comment on above: Performed By: #### C KYUNG MENON, MG, ADIFF, GFR, CMP, ANEU #### [address] [address] Chloride [Moles/Vol] 106 mmol/L Normal 98-107 [facility] Comment on above: Performed By: #### C KYUNG MENON, MG, ADIFF, GFR, CMP, ANEU #### [address] [address] CO2 [Moles/Vol] 28 mmol/L Normal 23-31 [facility] Comment on above: Performed By: #### C KYUNG MENON, MG, ADIFF, GFR, CMP, ANEU #### [address] [address] Creatinine [Mass/Vol] 2.12 mg/dL High 0.67-1.17 [facility] Comment on above: Performed By: #### C KYUNG MENON, MG, ADIFF, GFR, CMP, ANEU #### [address] [address] Electrolyte Balance 7.0 mEq/L Normal 4.0-15.0 [facility] Comment on above: Performed By: #### C KYUNG MENON, MG, ADIFF, GFR, CMP, ANEU #### [address] [address] Globulin 2.8 G/dL Normal 2.7-4.4 [facility] Comment on above: Performed By: #### C KYUNG MENON, MG, ADIFF, GFR, CMP, ANEU #### [address] [address] Glucose [Mass/Vol] 113 mg/dL High 83-110 [facility] Comment on above: Performed By: #### C KYUNG MENON, MG, ADIFF, GFR, CMP, ANEU #### [address] [address] Potassium [Moles/Vol] 4.7 mmol/L Normal 3.5-5.1 [facility] Comment on above: Performed By: #### C KYUNG MENON, MG, ADIFF, GFR, CMP, ANEU #### [address] [address] Sodium [Moles/Vol] 141 mmol/L Normal 136-145 [facility] Comment on above: Performed By: #### C KYUNG MENON, MG, ADIFF, GFR, CMP, ANEU #### [address] [address] Total Protein 6.5 G/dL Normal 6.4-8.2 [facility] Comment on above: Performed By: #### C KYUNG MENON, MG, ADIFF, GFR, CMP, ANEU #### [address] [address] Urea nitrogen [Mass/Vol] 34 mg/dL High 7-18 [facility] Comment on above: Performed By: #### C KYUNG MENON, MG, ADIFF, GFR, CMP, ANEU #### [address] [address] Jimmy 02-22-2025 Gastrin 113 pg/mL Normal 0-115 [facility] Comment on above: Result Comment: Siem Immulite 2000 Immunochemiluminometric assay (ICMA) Values obtained with different assay methods or kits cannot be used interchangeably. Results cannot be interpreted as absolute evidence of the presence or absence of malignant disease. Performed At: [facility] [id number] Jacques Ferrell MD Ph:[phone] Performed By: #### C BC, MDW, MG, ADIFF, GFR, CMP, ANEU #### [facility] [address] [place], [place] [address] LABORATORYOrdered By: SYSTEM SYSTEM on 02-22-2025 Albumin [...] 02-22-2025 Magnesium [Mass/Vol] 1.8 mg/dL Normal 1.8-2.4 [facility] Comment on above: Performed By: #### C BC, MDW, MG, ADIFF, GFR, CMP, ANEU #### [place] [address] .Auto Diffon 06-04-2025 Basophil, Absolute 0.0 10 3/mcL Normal 0.0-0.3 [facility] Comment on above: Performed By: #### C LYNSEY, KYUNG, MG, ADIFF, GFR, CMP, ANEU #### [address] [address] Basophils/100 WBC (Bld) 0.6 % Normal 0.0-2.5 [facility] Comment on above: Performed By: #### C BC, W, MG, ADIFF, GFR, CMP, ANEU #### [address] [address] Eosinophil, Absolute 0.1 10 3/mcL Normal 0.0-0.7 [facility] Comment on above: Performed By: #### C LYNSEY, KYUNG, MG, ADIFF, GFR, CMP, ANEU #### [address] [address] Eosinophils/100 WBC (Bld) 2.4 % Normal 0.0-6.0 [facility] Comment on above: Performed By: #### C KYUNG MENON, MG, ADIFF, GFR, CMP, ANEU #### [address] [address] Lymphocyte, Absolute 1.5 10 3/mcL Normal 0.9-4.3 [facility] Comment on above: Performed By: #### C LYNSEY, W, MG, ADIFF, GFR, CMP, ANEU #### [address] [address] Lymphocytes/100 WBC (Bld) 24.4 % Normal 20.0-40.0 [facility] Comment on above: Performed By: #### C LYNSEY, KYUNG, MG, ADIFF, GFR, CMP, ANEU #### [address] [address] Monocyte, Absolute 0.4 10 3/mcL Normal 0.1-1.4 [facility] Comment on above: Performed By: #### C LYNSEY, W, MG, ADIFF, GFR, CMP, ANEU #### [address] [address] Monocytes/100 WBC (Bld) 6.1 % Normal 2.0-13.0 [facility] Comment on above: Performed By: #### C KYUNG MENON, MG, ADIFF, GFR, CMP, ANEU #### [address] [address] Neutrophils/100 WBC (Bld) 66.5 % Normal 50.0-75.0 [facility] Comment on above: Performed By: #### C KYUNG MENON, MG, ADIFF, GFR, CMP, ANEU #### [address] [address] .GFRon 02-21-2025 Estimated Glomerular Filtration Rate 31 ml/min/1.73sqm Normal [facility] Comment on above: Result Comment: [...] MENON, MG, ADIFF, GFR, CMP, ANEU #### [address] [address] .NEUABSon 02-21-2025 Neutrophil, Absolute 4.0 10 3/mcL Normal 2.3-8.1 [facility] Comment on above: Performed By: #### C KYUNG MENON, MG, ADIFF, GFR, CMP, ANEU #### [place] [address] [place], [place] [address] B12on 02-21-2025 Cobalamin (Vitamin B12) [Mass/Vol] 1629 pg/mL High 211-911 [facility] Comment on above: Performed By: #### C KYUNG MENON, MG, ADIFF, GFR, CMP, ANEU #### [address] [address] BMPon 02-21-2025 BUN/Creatinine Ratio 15 ratio Normal 7-27 [facility] Comment on above: Performed By: #### C LYNSEY, KYUNG, MG, ADIFF, GFR, CMP, ANEU #### [place] [address] Calcium [Mass/Vol] 9.3 mg/dL Normal 8.4-10.2 [facility] Comment on above: Performed By: #### C KYUNG MENON, MG, ADIFF, GFR, CMP, ANEU #### [place] [address] Chloride [Moles/Vol] 106 mmol/L Normal 98-107 [facility] Comment on above: Performed By: #### C KYUNG MENON, MG, ADIFF, GFR, CMP, ANEU #### [place] [id number] CO2 [Moles/Vol] 29 mmol/L Normal 23-31 [facility] Comment on above: Performed By: #### C KYUNG MENON, MG, ADIFF, GFR, CMP, ANEU #### [address] [address] Creatinine [Mass/Vol] 2.09 mg/dL High 0.67-1.17 [facility] Comment on above: Performed By: #### C KYUNG MENON, MG, ADIFF, GFR, CMP, ANEU #### [address] [address] Electrolyte Balance 6.0 mEq/L Normal 4.0-15.0 [facility] Comment on above: Performed By: #### C KYUNG MENON, MG, ADIFF, GFR, CMP, ANEU #### [place] [address] Glucose [Mass/Vol] 110 mg/dL Normal 83-110 [facility] Comment on above: Performed By: #### C KYUNG MENON, MG, ADIFF, GFR, CMP, ANEU #### [address] [address] Potassium [Moles/Vol] 6.0 mmol/L High 3.5-5.1 [facility] Comment on above: Performed By: #### C KYUNG MENON, MG, ADIFF, GFR, CMP, ANEU #### [place] [address] Sodium [Moles/Vol] 141 mmol/L Normal 136-145 [facility] Comment on above: Performed By: #### C KYUNG MENON, MG, ADIFF, GFR, CMP, ANEU #### [place] [address] Urea nitrogen [Mass/Vol] 32 mg/dL High 7-18 [facility] Comment on above: Performed By: #### C KYUNG MENON, MG, ADIFF, GFR, CMP, ANEU #### [place] [address] CBCon 02-21-2025 Erythrocyte distribution width (RBC) [Ratio] 15.6 % High 11.5-15.5 [facility] Comment on above: Performed By: #### C KYUNG MENON, MG, ADIFF, GFR, CMP, ANEU #### [place] [address] Hematocrit (Bld) [Volume fraction] 32.6 % Low 40.0-52.0 [facility] Comment on above: Performed By: #### C KYUNG MENON, MG, ADIFF, GFR, CMP, ANEU #### [place] [address] Hgb 10.9 G/dL Low 13.0-17.5 [facility] Comment on above: Performed By: #### C KYUNG MENON, MG, ADIFF, GFR, CMP, ANEU #### [place] [address] MCH (RBC) [Entitic mass] 29.8 pg Normal 27.0-33.0 [facility] Comment on above: Performed By: #### C KYUNG MENON, MG, ADIFF, GFR, CMP, ANEU #### [address] [address] MCHC 33.3 G/dL Normal 32.0-36.0 [facility] Comment on above: Performed By: #### C KYUNG MENON, MG, ADIFF, GFR, CMP, ANEU #### [place] [address] MCV (RBC) [Entitic vol] 89.5 fL Normal 81.0-100.0 [facility] Comment on above: Performed By: #### C KYUNG MENON, MG, ADIFF, GFR, CMP, ANEU #### [address] [address] Platelet 99 10 3/mcL Low 150-450 [facility] Comment on above: Performed By: #### C KYUNG MENON, MG, ADIFF, GFR, CMP, ANEU #### [place] [address] Platelet mean volume (Bld) [Entitic vol] 7.3 fL Normal 6.4-10.5 [facility] Comment on above: Performed By: #### C KYUNG MENON, MG, ADIFF, GFR, CMP, ANEU #### [place] [id number] RBC 3.65 10 6/mcL Low 4.50-6.00 [facility] Comment on above: Performed By: #### C KYUNG MENON, MG, ADIFF, GFR, CMP, ANEU #### [place] [id number] WBC 6.0 10 3/mcL Normal 4.5-10.8 [facility] Comment on above: Performed By: #### C KYUNG MENON, MG, ADIFF, GFR, CMP, ANEU #### [place] [id number] Jimmy 02-21-2025 Fasting Y Yes Normal [facility] Comment on above: Performed By: #### C BC, MDW, MG, ADIFF, GFR, CMP, ANEU #### [place] [address] [place], [place] [address] LABORATORYOrdered By: SYSTEM SYSTEM on 02-21-2025 25-hydroxyvitamin [...] PM) Normal AO Sendouts SS LABORATORYOrdered By: [employer] P CONTRIBUTOR_SYSTEM on 02-21-2025 Gastrin (LC) 113 pg/mL Invalid Interpretation Code AO Sendouts SS Comment on above: Result Comment: [facility] Gather.mdte 2000 Immunochemiluminometric assay (ICMA) Values obtained with different assay methods or kits cannot be used interchangeably. Results cannot be interpreted as absolute evidence of the presence or absence of malignant disease. Performed At: [facility] [id number] Jacques Ferrell MD Ph:[phone] Intrinsic Factor Abs (LC) 0.9 Au/mL Invalid Interpretation Code 0.0-1.1 AO Sendouts SS Comment on above: Result Comment: Perf ormed At: [id number] [id number] Jacques Ferrell MD Ph:[phone] MGon 02-21-2025 Magnesium [Mass/Vol] 1.9 mg/dL Normal 1.8-2.4 [facility] Comment on above: Performed By: #### C KYUNG MENON, MG, ADIFF, GFR, CMP, ANEU #### [facility] [address] [place], [place] [address] PTHon 02-21-2025 PTH, Intact 170.3 pg/mL High 18.5-88.0 [facility] Comment on above: Performed By: #### C KYUNG MENON, MG, ADIFF, GFR, CMP, ANEU #### [facility] [address] [place], [place] [address] VIDHon 02-21-2025 Vit. D 25-Hydroxy 32.7 ng/mL Normal [facility] Comment on above: Result Comment: Inte rpretive Values Based on Total 25(OH) Vitamin D: Deficient <20 ng/mL Insufficient 20 - <30 ng/mL Sufficient 30-100 ng/mL Performed By: #### C KYUNG MENON, MG, ADIFF, GFR, CMP, ANEU #### [facility] [address] [place], [place] [address] Cardiology Visit Reporton Cardiology Visit Report [facility] [address] [place] [address] OFFICE VISIT Date of Service: 02/16/25 MR#: [id number] Acct: [id number] Name: EKATERINA RANDHAWA Rep #: [id number] : 1940 Provider: DG Vail Age/Sex: 84/M [...] Intake Visit Reasons: 1 Y FU/PREV PFM [employer] Detail Draftsperson Required: No Accompanied by: Daughter Is patient [...] 02/16/25 Hi story gram oral powder packet ([facility]) lisinopril 20 mg tablet 20 mg PO [...] infarction Essential hypertension Atherosclerotic heart disease of [place] coronary artery without angina pectoris Postoperative atrial [...] rarely substance use type: does not use arelis/orthodox: [place] seatbelt use: always ROS Const Const: Positive for fatigue (Increasing last couple months, relates to age); Negative for weakness Eyes Eyes: Negative for change in vision ENT ENT: Negative for dizziness or balance problems Cardio (more content not included)... Normal [facility] Bilirubin directOrdered By: Maryuri Begum on 02-08-2025 Bilirubin.direct [Mass/Vol] 0.26 mg/dL 0.00-0.30 [facility] Bilirubin, totalOrdered By: Maryuri Begum on 02-08-2025 Bilirubin [Mass/Vol] 0.48 mg/dL 0.00-1.30 [facility] Calculated very low density lipoprotein (VLDL) cholesterol measurementOrdered By: Maryuri Begum on 02-08-2025 Calculated very low density lipoprotein (VLDL) cholesterol measurement 18 mg/dL 5-40 [facility] LDL calc ser/plasOrdered By: Maryuri Begum on 02-08-2025 Cholesterol in LDL [Mass/Vol] 25 mg/dL [facility] Comment on above: Ntmevuylko=306-759 m g/dL & Higher Onjl=124 mg/dL or greater Laboratory - Chemistry and C hemistry - challengeOrdered By: Maryuri Begum on 02-08-2025 AST [Catalytic activity/Vol] 16 U/L <38 [facility] Lipid Profileon 02-08-2025 CHOL:HDL 2.13 Normal [facility] Comment on above: Performed By: #### L 500.3400, L500.4100 #### [facility] [address] [place], [address] Cholesterol [Mass/Vol] 80 mg/dL Normal <=200 [facility] Comment on above: Result Comment: Chol esterol level, Desirable <200 mg/dL Borderline high cholesterol 200-239 mg/dL High cholesterol >=240 mg/dL Recommendations of the NCEP Adult Treatment Panel for the following risk-cutoff thresholds for the [place] population. Performed By: #### L 500.3400, L500.4100 #### [facility] [address] [place], [address] Cholesterol in HDL [Mass/Vol] 38 mg/dL Low [facility] Comment on above: Result Comment: Daphney onal Cholesterol Education Program (NCEP) guidelines: <40 mg/dL: Low HDL-cholesterol (major risk factor for CHD) >= 60 mg/dL: High HDL-cholesterol (negative risk factor for CHD) HDL-cholesterol is affected by a number of factors, e.g. smoking, exercise, hormones, sex and age. Performed By: #### L 500.3400, L500.4100 #### [facility] [address] [place], [address] Cholesterol in LDL [Mass/Vol] 25 mg/dL Normal [facility] Comment on above: Result Comment: Bord xztrhv=889-876 mg/dL Higher Ofch=328 mg/dL or greater Performed By: #### L 500.3400, L500.4100 #### [facility] [address] [place], [address] Cholesterol in VLDL [Mass/Vol] 18 mg/dL Normal 5-40 [facility] Comment on above: Performed By: #### L 500.3400, L500.4100 #### [facility] [address] [place], [address] Triglyceride [Mass/Vol] 89 mg/dL Normal [facility] Comment on above: Result Comment: The drugs N-Acetylcysteine and Metamizole may falsely depress this assay. Normal range: <150 mg/dL Borderline High: 150-199 mg/dL High: 200-499 mg/dL Very High: >500 mg/dL Performed By: #### L 500.3400, L500.4100 #### [facility] [address] [place], [address] Liver Profileon 02-08-2025 Albumin [Mass/Vol] 3.9 g/dL Normal 3.4-4.8 [facility] Comment on above: Performed By: #### L 500.3400, L500.4100 #### [facility] [address] [place], [address] ALK PHOS 89 U/L Normal 40-129 [facility] Comment on above: Performed By: #### L 500.3400, L500.4100 #### [facility] [address] [place], [address] ALT [Catalytic activity/Vol] 6 U/L Normal <=46 [facility] Comment on above: Performed By: #### L 500.3400, L500.4100 #### [facility] [address] [place], [address] AST [Catalytic activity/Vol] 16 U/L Normal <=37 [facility] Comment on above: Performed By: #### L 500.3400, L500.4100 #### [facility] [address] [place], [address] Bilirubin [Mass/Vol] 0.48 mg/dL Normal 0.00-1.30 [facility] Comment on above: Performed By: #### L 500.3400, L500.4100 #### [facility] [address] [place], [address] Bilirubin.direct [Mass/Vol] 0.26 mg/dL Normal 0.00-0.30 [facility] Comment on above: Performed By: #### L 500.3400, L500.4100 #### [facility] [address] [place], [address] Globulin (S) [Mass/Vol] 2.5 g/dL Normal 2.2-4.2 [facility] Comment on above: Performed By: #### L 500.3400, L500.4100 #### [facility] [address] [place], [address] T PROT 6.5 g/dL Normal 5.9-8.4 [facility] Comment on above: Performed By: #### L 500.3400, L500.4100 #### [facility] [address] [place], [address] Screening total cholesterol/ high density lipoprotein (HDL) cholesterol ratioOrdered By: Maryuri Begum on 02-08-2025 Cholesterol.total/Choles terol in HDL [Mass ratio] 2.13 {ratio} [facility] Serum globulin measurementOr dered By: Maryuri Begum on 02-08-2025 Globulin (S) [Mass/Vol] 2.5 g/dL 2.2-4.2 [facility] Serum or plasma alanine mora otransferase (ALT) measurementOrdered By: Maryuri Begum on 02-08-2025 ALT [Catalytic activity/Vol] 6 U/L <47 [facility] Serum or plasma albumin francisco urement (mass/volume)Ordered By: Maryuri Begum on 02-08-2025 Albumin [Mass/Vol] 3.9 g/dL 3.4-4.8 [facility] Serum or plasma alkaline edna sphatase measurementOrdered By: Maryuri Begum on 02-08-2025 ALP [Catalytic activity/Vol] 89 U/L 40-129 [facility] Serum or plasma cholesterol in HDL measurement (mass/volume)Ordered By: Maryuri Begum on 02-08-2025 Cholesterol in HDL [Mass/Vol] 38 mg/dL Low >40 [facility] Comment on above: National Cholesterol Education Program (NCEP) guidelines:<40 mg/dL: Low HDL-cholesterol (major risk factor for CHD)>= 60 mg/dL: High HDL-cholesterol (negative risk factor for CHD)HDL-cholesterol is affected by a number of factors, e.g. smoking, exercise, hormones, sex and age. Serum or plasma cholesterol measurement (mass/volume)Ordered By: Maryuri Begum on 02-08-2025 Cholesterol [Mass/Vol] 80 mg/dL <201 [facility] [place] [facility] Comment on above: Cholesterol level, D esirable <200 mg/dLBorderline high cholesterol 200-239 mg/dLHigh cholesterol >=240 mg/dLRecommendations of the NCEP Adult Treatment Panel for the following risk-cutoff thresholds for the [place] population. Total proteinOrdered By: Terell Begum on 02-08-2025 Protein [Mass/Vol] 6.5 g/dL 5.9-8.4 [facility] Triglycerides measurementOrd ered By: Maryuri Begum on 02-08-2025 Triglyceride [Mass/Vol] 89 mg/dL <199 [facility] Comment on above: The drugs N-Acetylcy steine and Metamizole may falsely depress this assay. Normal range: <150 mg/dLBorderline High: 150-199 mg/dLHigh: 200-499 mg/dLVery High: >500 mg/dL Neurology Visit Reporton Neurology Visit Report [facility] [address] [facility], [address] [place] [id number] OFFICE VISIT Date of Service: 11/29/24 MR#: [id number] Acct: [id number] Name: EKATERINA RANDHAWA Rep #: [id number] : 1940 Provider: Dr. Braxton garg MD Age/Sex: 84/M Location: 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 He [...] dysfunction (pseudonormal (more content not included)... Normal [facility] Urgent Care Visit Reporton 0 11-16-2024 Urgent Care Visit Report [facility] [address], [address] [place] [address] OFFICE VISIT Date of Service: 11/16/24 MR#: [id number] Acct: [id number] Name: EKATERINA RANDHAWA Rep #: [id number] : 1940 Provider: DG Manning Age/Sex: 84/M Location: [facility] Status: Signed Intake Vital Signs 03/02/24 08:13 [...] Patient states he has RLS. 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 Normal [facility] .Auto Diffon 11-01-2024 Basophil, Absolute 0.0 10 3/mcL Normal 0.0-0.2 [facility] Comment on above: Performed By: #### C LYNSEY, KYUNG, MG, ADIFF, GFR, CMP, ANEU #### [address] [address] Basophils/100 WBC (Bld) 0.6 % Normal 0.0-2.5 [facility] Comment on above: Performed By: #### C KYUNG MENON, MG, ADIFF, GFR, CMP, ANEU #### [address] [address] Eosinophil, Absolute 0.2 10 3/mcL Normal 0.0-0.7 [facility] Comment on above: Performed By: #### C KYUNG MENON, MG, ADIFF, GFR, CMP, ANEU #### [address] [address] Eosinophils/100 WBC (Bld) 2.8 % Normal 0.0-7.0 [facility] Comment on above: Performed By: #### C KYUNG MENON, MG, ADIFF, GFR, CMP, ANEU #### [address] [address] Lymphocyte, Absolute 1.6 10 3/mcL Normal 0.9-4.3 [facility] Comment on above: Performed By: #### C KYUNG MENON, MG, ADIFF, GFR, CMP, ANEU #### [address] [address] Lymphocytes/100 WBC (Bld) 25.7 % Normal 20.0-40.0 [facility] Comment on above: Performed By: #### C LYNSEY, W, MG, ADIFF, GFR, CMP, ANEU #### [address] [address] Monocyte, Absolute 0.4 10 3/mcL Normal 0.1-1.4 [facility] Comment on above: Performed By: #### C BC, MDW, MG, ADIFF, GFR, CMP, ANEU #### [address] [address] Monocytes/100 WBC (Bld) 6.6 % Normal 2.0-13.0 [facility] Comment on above: Performed By: #### C LYNSEY, W, MG, ADIFF, GFR, CMP, ANEU #### [address] [address] Neutrophils/100 WBC (Bld) 64.3 % Normal 50.0-75.0 [facility] Comment on above: Performed By: #### C LYNSEY, W, MG, ADIFF, GFR, CMP, ANEU #### [address] [address] .GFRon 11-01-2024 Estimated Glomerular Filtration Rate 27 ml/min/1.73sqm Normal [facility] Comment on above: Result Comment: [...] MDW, MG, ADIFF, GFR, CMP, ANEU #### [address] [address] .NEUABSon 11-01-2024 Neutrophil, Absolute 4.0 10 3/mcL Normal 2.3-8.1 [facility] Comment on above: Performed By: #### C KYUNG MENON, MG, ADIFF, GFR, CMP, ANEU #### [address] [address] BMPon 11-01-2024 BUN/Creatinine Ratio 13 ratio Normal 7-27 [facility] Comment on above: Performed By: #### C KYUNG MENON, MG, ADIFF, GFR, CMP, ANEU #### [address] [address] Calcium [Mass/Vol] 9.7 mg/dL Normal 8.4-10.2 [facility] Comment on above: Performed By: #### C KYUNG MENON, MG, ADIFF, GFR, CMP, ANEU #### [address] [address] Chloride [Moles/Vol] 108 mmol/L High 98-107 [facility] Comment on above: Performed By: #### C KYUNG MENON, MG, ADIFF, GFR, CMP, ANEU #### [address] [address] CO2 [Moles/Vol] 29 mmol/L Normal 23-31 [facility] Comment on above: Performed By: #### C KYUNG MENON, MG, ADIFF, GFR, CMP, ANEU #### [address] [address] Creatinine [Mass/Vol] 2.31 mg/dL High 0.70-1.30 [facility] Comment on above: Result Comment: Test ing performed on Siemens Dimension EXL analyzer using a modified kinetic Sonia technique. Performed By: #### C KYUNG MENON, MG, ADIFF, GFR, CMP, ANEU #### [address] [address] Electrolyte Balance 8.0 mEq/L Normal 4.0-15.0 [facility] Comment on above: Performed By: #### C KYUNG MENON, MG, ADIFF, GFR, CMP, ANEU #### [address] [address] Glucose [Mass/Vol] 111 mg/dL High 83-110 [facility] Comment on above: Performed By: #### C KYUNG MENON, MG, ADIFF, GFR, CMP, ANEU #### [address] [address] Potassium [Moles/Vol] 5.0 mmol/L Normal 3.5-5.1 [facility] Comment on above: Performed By: #### C KYUNG MENON, MG, ADIFF, GFR, CMP, ANEU #### [address] [address] Sodium [Moles/Vol] 145 mmol/L Normal 136-145 [facility] Comment on above: Performed By: #### C KYUNG MENON, MG, ADIFF, GFR, CMP, ANEU #### [place] [address] Urea nitrogen [Mass/Vol] 30 mg/dL High 7-18 [facility] Comment on above: Performed By: #### C KYUNG MENON, MG, ADIFF, GFR, CMP, ANEU #### [address] [address] CBCon 11-01-2024 Erythrocyte distribution width (RBC) [Ratio] 16.6 % High 11.5-15.5 [facility] Comment on above: Performed By: #### C KYUNG MENON, MG, ADIFF, GFR, CMP, ANEU #### [address] [address] Hematocrit (Bld) [Volume fraction] 34.4 % Low 40.0-52.0 [facility] Comment on above: Performed By: #### C KYUNG MENON, MG, ADIFF, GFR, CMP, ANEU #### [address] [address] Hgb 11.5 G/dL Low 13.0-17.5 [facility] Comment on above: Performed By: #### C KYUNG MENON, MG, ADIFF, GFR, CMP, ANEU #### [address] [address] MCH (RBC) [Entitic mass] 29.3 pg Normal 27.0-33.0 [facility] Comment on above: Performed By: #### C KYUNG MENON, MG, ADIFF, GFR, CMP, ANEU #### [address] [address] MCHC 33.4 G/dL Normal 32.0-36.0 [facility] Comment on above: Performed By: #### C KYUNG MENON, MG, ADIFF, GFR, CMP, ANEU #### [place] [address] MCV (RBC) [Entitic vol] 87.9 fL Normal 81.0-100.0 [facility] Comment on above: Performed By: #### C KYUNG MENON, MG, ADIFF, GFR, CMP, ANEU #### [place] [address] Platelet 90 10 3/mcL Low 150-450 [facility] Comment on above: Performed By: #### C KYUNG MENON, MG, ADIFF, GFR, CMP, ANEU #### [address] [address] Platelet mean volume (Bld) [Entitic vol] 7.9 fL Normal 6.4-10.5 [facility] Comment on above: Performed By: #### C KYUNG MENON, MG, ADIFF, GFR, CMP, ANEU #### [address] [address] RBC 3.91 10 6/mcL Low 4.50-6.00 [facility] Comment on above: Performed By: #### C KYUNG MENON, MG, ADIFF, GFR, CMP, ANEU #### [address] [address] WBC 6.2 10 3/mcL Normal 4.5-10.8 [facility] Comment on above: Performed By: #### C BC, MDW, MG, ADIFF, GFR, CMP, ANEU #### [place] [address] LABORATORYOrdered By: Leidy Gomez on 11-01-2024 Creatinine [...] 11-01-2024 PTH, Intact 194.7 pg/mL High 18.5-88.0 [facility] Comment on above: Performed By: #### C KYUNG MENON, MG, ADIFF, GFR, CMP, ANEU #### [address] [address] RPCURon 11-01-2024 U Creatinine 88.0 mg/dL Normal [facility] Comment on above: Performed By: #### R PCUR #### [address] [address] U Protein 26 mg/dL Normal [facility] Comment on above: Performed By: #### R PCUR #### [address] [address] U Ratio Prot/Creat 0.3 ratio Normal [facility] Comment on above: Performed By: #### R PCUR #### [address] [address] URICon 11-01-2024 Uric Acid Lvl 7.2 mg/dL Normal 3.5-7.2 [facility] Comment on above: Performed By: #### C LYNSEY, KYUNG, MG, ADIFF, GFR, CMP, ANEU #### [place] [address] [place], [place] [address] VIDHon 11-01-2024 Vit. D 25-Hydroxy 23.4 ng/mL Normal [facility] Comment on above: Result Comment: Inte rpretive Values Based on Total 25(OH) Vitamin D: Deficient <20 ng/mL Insufficient 20 - <30 ng/mL Sufficient 30-100 ng/mL Performed By: #### C LYNSEY, KYUNG, MG, ADDEMETRIS, GFR, CMP, ANEU #### [place] [address] [place], [place] [address] CNOVSPon 09-12-2024 CNOVSP Visit (SP) Office (HEMAWS) ----- EKATERINA RANDHAWA ([id number]) 1940 M Date Time Provider Department 09/12/24 [...] which included preparing to see the patient, [id number] patient care, completing clinical documentation, obtaining and/or reviewing separately obtained history, counseling and educating the patient/family/caregiver, ordering medications, tests, or procedures, independently interpreting results (not separately reported), and communicating results to the patient/family/caregiver. Electronically Signed: Toney Gutierrez MD September 12, 2024 10:42 AM Referring Provider: JLUIS NICHOLE [[id number]] Allergies As of Date: 09/12/2024 (No Known Allergies) Date Reviewed: 09/12/2024 Reviewed by: Carrie García Ma, MA - Fully Assessed Reason for Visit: New Patient Evaluation [154] Primary Visit Diagnosis:Thrombocytopeni a (HCC) [D69.6] Other Visit Diagnosis:Anemia, unspecified type [D64.9] Order(s):COMPLETE BLOOD COUNT AND DIFFERENTIAL [SQCBCDIF] Order #: [id number] FUTURE ACTIVATED PARTIAL THROMBOPLASTIN TIME [SQPTT] Order #: [id number] FUTURE PROTHROMBIN TIME [SQPT] Order #: [id number] FUTURE Disposition: Return in about 4 months (more content not included)... Normal [facility] .Auto Diffon 08-11-2024 Basophil, Absolute 0.0 10 3/mcL Normal 0.0-0.2 [facility] Comment on above: Performed By: #### C KYUNG MENON, MG, ADIFF, GFR, CMP, ANEU #### [address] [place], [place] [address] Basophils/100 WBC (Bld) 0.6 % Normal 0.0-2.5 [facility] Comment on above: Performed By: #### C KYUNG MENON, MG, ADIFF, GFR, CMP, ANEU #### [address] [address] Eosinophil, Absolute 0.1 10 3/mcL Normal 0.0-0.7 [facility] Comment on above: Performed By: #### C KYUNG MENON, MG, ADIFF, GFR, CMP, ANEU #### [address] [address] Eosinophils/100 WBC (Bld) 1.6 % Normal 0.0-7.0 [facility] Comment on above: Performed By: #### C KYUNG MENON, MG, ADIFF, GFR, CMP, ANEU #### [address] [address] Lymphocyte, Absolute 1.3 10 3/mcL Normal 0.9-4.3 [facility] Comment on above: Performed By: #### C KYUNG MENON, MG, ADIFF, GFR, CMP, ANEU #### [address] [address] Lymphocytes/100 WBC (Bld) 20.5 % Normal 20.0-40.0 [facility] Comment on above: Performed By: #### C KYUNG MENON, MG, ADIFF, GFR, CMP, ANEU #### [address] [address] Monocyte, Absolute 0.4 10 3/mcL Normal 0.1-1.4 [facility] Comment on above: Performed By: #### C KYUNG MENON, MG, ADIFF, GFR, CMP, ANEU #### [address] [address] Monocytes/100 WBC (Bld) 6.7 % Normal 2.0-13.0 [facility] Comment on above: Performed By: #### C KYUNG MENON, MG, ADIFF, GFR, CMP, ANEU #### [address] [address] Neutrophils/100 WBC (Bld) 70.6 % Normal 50.0-75.0 [facility] Comment on above: Performed By: #### C KYUNG MENON, MG, ADIFF, GFR, CMP, ANEU #### [address] [address] .GFRon 08-11-2024 GFR 33 ml/min/1.73sqm Normal [facility] Comment on above: Result Comment: [...] MENON, MG, ADIFF, GFR, CMP, ANEU #### [address] [address] GFR Non- 27 ml/min/1.73sqm Normal [facility] Comment on above: Result Comment: [...] MENON, MG, ADIFF, GFR, CMP, ANEU #### [address] [address] .NEUABSon 08-11-2024 Neutrophil, Absolute 4.6 10 3/mcL Normal 2.3-8.1 [facility] Comment on above: Performed By: #### C KYUNG MENON, MG, ADIFF, GFR, CMP, ANEU #### [place] [address] B12on 08-11-2024 Cobalamin (Vitamin B12) [Mass/Vol] 360 pg/mL Normal 211-911 [facility] Comment on above: Performed By: #### C KYUNG MENON, MG, ADIFF, GFR, CMP, ANEU #### [place] [address] CBCon 08-11-2024 Erythrocyte distribution width (RBC) [Ratio] 15.2 % Normal 11.5-15.5 [facility] Comment on above: Performed By: #### C KYUNG MENON, MG, ADIFF, GFR, CMP, ANEU #### [place] [address] Hematocrit (Bld) [Volume fraction] 34.5 % Low 40.0-52.0 [facility] Comment on above: Performed By: #### C KYUNG MENON, MG, ADIFF, GFR, CMP, ANEU #### [place] [address] Hgb 11.4 G/dL Low 13.0-17.5 [facility] Comment on above: Performed By: #### C KYUNG MENON, MG, ADIFF, GFR, CMP, ANEU #### [place] [address] MCH (RBC) [Entitic mass] 29.4 pg Normal 27.0-33.0 [facility] Comment on above: Performed By: #### C KYUNG MENON, MG, ADIFF, GFR, CMP, ANEU #### [place] [address] MCHC 33.1 G/dL Normal 32.0-36.0 [facility] Comment on above: Performed By: #### C KYUNG MENON, MG, ADIFF, GFR, CMP, ANEU #### [address] [address] MCV (RBC) [Entitic vol] 88.9 fL Normal 81.0-100.0 [facility] Comment on above: Performed By: #### C LYNSEY, KYUNG, MG, ADIFF, GFR, CMP, ANEU #### [address] [address] Platelet 91 10 3/mcL Low 150-450 [facility] Comment on above: Performed By: #### C LYNSEY, W, MG, ADIFF, GFR, CMP, ANEU #### [address] [address] Platelet mean volume (Bld) [Entitic vol] 7.6 fL Normal 6.4-10.5 [facility] Comment on above: Performed By: #### C KYUNG MENON, MG, ADIFF, GFR, CMP, ANEU #### [address] [address] RBC 3.88 10 6/mcL Low 4.50-6.00 [facility] Comment on above: Performed By: #### C KYUNG MENON, MG, ADIFF, GFR, CMP, ANEU #### [address] [address] WBC 6.5 10 3/mcL Normal 4.5-10.8 [facility] Comment on above: Performed By: #### C KYUNG MENON, MG, ADIFF, GFR, CMP, ANEU #### [address] [address] CMPon 08-11-2024 Albumin Level 4.0 G/dL Normal 3.4-4.8 [facility] Comment on above: Performed By: #### C KYUNG MENON, MG, ADIFF, GFR, CMP, ANEU #### [address] [address] Albumin/Globulin [Mass ratio] 1.7 {ratio} Normal 1.1-2.5 [facility] Comment on above: Performed By: #### C KYUNG MENON, MG, ADIFF, GFR, CMP, ANEU #### [address] [address] ALP [Catalytic activity/Vol] 72 U/L Normal 40-135 [facility] Comment on above: Performed By: #### C KYUNG MENON, MG, ADIFF, GFR, CMP, ANEU #### [address] [address] ALT [Catalytic activity/Vol] 17 U/L Normal 16-63 [facility] Comment on above: Performed By: #### C KYUNG MENON, MG, ADIFF, GFR, CMP, ANEU #### [place] [id number] AST [Catalytic activity/Vol] 14 U/L Normal 10-40 [facility] Comment on above: Performed By: #### C KYUNG MENON, MG, ADIFF, GFR, CMP, ANEU #### [place] [id number] Bili Total 0.7 mg/dL Normal 0.2-1.0 [facility] Comment on above: Result Comment: Use of this assay is not recommended for patients undergoing treatment with eltrombopag due to the potential for falsely elevated results. Performed By: #### C KYUNG MENON, MG, ADIFF, GFR, CMP, ANEU #### [address] [address] BUN/Creatinine Ratio 12 ratio Normal 7-27 [facility] Comment on above: Performed By: #### C KYUNG MENON, MG, ADIFF, GFR, CMP, ANEU #### [address] [address] Calcium [Mass/Vol] 8.9 mg/dL Normal 8.4-10.2 [facility] Comment on above: Performed By: #### C KYUNG MENON, MG, ADIFF, GFR, CMP, ANEU #### [address] [address] Chloride [Moles/Vol] 107 mmol/L Normal 98-107 [facility] Comment on above: Performed By: #### C LYNSEY, W, MG, ADIFF, GFR, CMP, ANEU #### [address] [address] CO2 [Moles/Vol] 26 mmol/L Normal 23-31 [facility] Comment on above: Performed By: #### C LYNSEY, W, MG, ADIFF, GFR, CMP, ANEU #### [place] [id number] Creatinine [Mass/Vol] 2.31 mg/dL High 0.70-1.30 [facility] Comment on above: Result Comment: Test ing performed on Siemens Dimension EXL analyzer using a modified kinetic Sonia technique. Performed By: #### C LYNSEY, W, MG, ADIFF, GFR, CMP, ANEU #### [place] [address] Electrolyte Balance 9.0 mEq/L Normal 4.0-15.0 [facility] Comment on above: Performed By: #### C LYNSEY, KYUNG, MG, ADIFF, GFR, CMP, ANEU #### [place] [address] Globulin 2.4 G/dL Normal [facility] Comment on above: Performed By: #### C LYNSEY, W, MG, ADIFF, GFR, CMP, ANEU #### [place] [address] Glucose [Mass/Vol] 111 mg/dL High 83-110 [facility] Comment on above: Performed By: #### C LYNSEY, W, MG, ADIFF, GFR, CMP, ANEU #### [address] [address] Potassium [Moles/Vol] 4.7 mmol/L Normal 3.5-5.1 [facility] Comment on above: Performed By: #### C LYNSEY, W, MG, ADIFF, GFR, CMP, ANEU #### [place] [address] Sodium [Moles/Vol] 142 mmol/L Normal 136-145 [facility] Comment on above: Performed By: #### C KYUNG MENON, MG, ADIFF, GFR, CMP, ANEU #### [address] [address] Total Protein 6.4 G/dL Normal 6.4-8.2 [facility] Comment on above: Performed By: #### C KYUNG MENON, MG, ADIFF, GFR, CMP, ANEU #### [address] [address] Urea nitrogen [Mass/Vol] 28 mg/dL High 7-18 [facility] Comment on above: Performed By: #### C KYUNG MENON, MG, ADIFF, GFR, CMP, ANEU #### [address] [address] Jose 08-11-2024 Ferritin [Mass/Vol] 28.0 ng/mL Normal 26.0-388.0 [facility] Comment on above: Performed By: #### C KYUNG MENON, MG, ADIFF, GFR, CMP, ANEU #### [address] [address] FESon 08-11-2024 Iron [Mass/Vol] 83 ug/dL Normal 65-175 [facility] Comment on above: Performed By: #### C KYUNG MENON, MG, ADIFF, GFR, CMP, ANEU #### [address] [address] Iron Sat 26 % Normal [facility] Comment on above: Performed By: #### C KYUNG MENON, MG, ADIFF, GFR, CMP, ANEU #### [address] [address] TIBC 316 mcg/dL Normal 250-450 [facility] Comment on above: Performed By: #### C KYUNG MENON, MG, ADIFF, GFR, CMP, ANEU #### [address] [address] HCVon 08-11-2024 Hep C Ab Non-Reactive Normal Non-Reacti ve [facility] Comment on above: Performed By: #### C LYNSEY, W, MG, ADIFF, GFR, CMP, ANEU #### [address] [place], [place] [address] Hep C Ab Int Normal [facility] Comment on above: Result Comment: [...] KYUNG, MG, ADIFF, GFR, CMP, ANEU #### [address] [place], [place] [address] LABORATORYOrdered By: SYSTEM SYSTEM on 08-11-2024 Albumin [...] 08-11-2024 Cholesterol [Mass/Vol] 78 mg/dL Normal 0-200 [facility] Comment on above: Result Comment: Chol esterol Reference Interval: Less than 200 Desirable 200-239 Borderline high risk 240 and above High risk Performed By: #### C KYUNG MENON, MG, ADIFF, GFR, CMP, ANEU #### [address] [address] Cholesterol in HDL [Mass/Vol] 35 mg/dL Low 40-60 [facility] Comment on above: Performed By: #### C KYUNG MENON, MG, ADIFF, GFR, CMP, ANEU #### [address] [address] Cholesterol in LDL [Mass/Vol] 27 mg/dL Normal 0-130 [facility] Comment on above: Performed By: #### C KYUNG MENON, MG, ADIFF, GFR, CMP, ANEU #### [address] [address] Triglyceride [Mass/Vol] 79 mg/dL Normal 0-150 [facility] Comment on above: Result Comment: Trig lyceride Reference Interval: Less than 150 Normal 150-199 Borderline high risk 200-499 High risk 500 or higher Very high risk Performed By: #### C KYUNG MENON, MG, ADIFF, GFR, CMP, ANEU #### [address] [address] MGon 08-11-2024 Magnesium [Mass/Vol] 1.7 mg/dL Low 1.8-2.4 [facility] Comment on above: Performed By: #### C KYUNG MENON, MG, ADIFF, GFR, CMP, ANEU #### [address] [address] PBNPon 08-11-2024 Natriuretic peptide B (Bld) [Mass/Vol] 1518 pg/mL High 0-450 [facility] Comment on above: Result Comment: NT-p roBNP results of less than 300 pg/mL effectively rules out acute congestive heart failure with 99% negative predictive value. Performed By: #### C BC, MDW, MG, ADIFF, GFR, CMP, ANEU #### [address] [place], [place] [address] LABORATORYOrdered By: SYSTEM SYSTEM on 07-07-2024 25-hydroxyvitamin [...] 0.1 10 3/mcL Normal 0.0-0.2 [facility] ([place] Comment on above: Performed By: #### A DIFF, BMP, ANEU, VIDH, URIC, CBC, GFR #### [place] [address] #### PTH #### [address] [address] Basophils/100 WBC (Bld) 0.7 % Normal 0.0-2.5 [facility] ([place] Comment on above: Performed By: #### A DIFF, BMP, ANEU, VIDH, URIC, CBC, GFR #### [place] [address] #### PTH #### [address] [address] Eosinophil, Absolute 0.2 10 3/mcL Normal 0.0-0.4 [facility] [place] Comment on above: Performed By: #### A DIFF, BMP, ANEU, VIDH, URIC, CBC, GFR #### [place] [address] #### PTH #### [address] [address] Eosinophils/100 WBC (Bld) 2.1 % Normal 0.0-7.0 [facility] ([place] Comment on above: Performed By: #### A DIFF, BMP, ANEU, VIDH, URIC, CBC, GFR #### [place] [address] #### PTH #### [address] [address] Lymphocyte, Absolute 2.0 10 3/mcL Normal 0.8-3.9 [facility] [place] Comment on above: Performed By: #### A DIFF, BMP, ANEU, VIDH, URIC, CBC, GFR #### [place] [address] #### PTH #### [address] [address] Lymphocytes/100 WBC (Bld) 25.0 % Normal 10.0-50.0 [facility] ([place] Comment on above: Performed By: #### A DIFF, BMP, ANEU, VIDH, URIC, CBC, GFR #### [address] [address] #### PTH #### [address] [address] Monocyte, Absolute 0.5 10 3/mcL Normal 0.2-1.0 [facility] ([place]) Comment on above: Performed By: #### A DIFF, BMP, ANEU, VIDH, URIC, CBC, GFR #### [address] [address] #### PTH #### [address] [address] Monocytes/100 WBC (Bld) 6.0 % Normal 1.7-13.0 [facility] ([place]) Comment on above: Performed By: #### A DIFF, BMP, ANEU, VIDH, URIC, CBC, GFR #### [address] [address] #### PTH #### [address] [address] Neutrophils/100 WBC (Bld) 66.2 % Normal 37.0-80.0 [facility] ([place] Comment on above: Performed By: #### A DIFF, BMP, ANEU, VIDH, URIC, CBC, GFR #### [address] [address] #### PTH #### [address] [address] .GFRon 02-21-2024 GFR Non- 21 ml/min/1.73sqm Normal [facility] ([place]) Comment on above: Result Comment: [...] BMP, ANEU, VIDH, URIC, CBC, GFR #### [address] [address] #### PTH #### [address] [address] GFR 26 ml/min/1.73sqm Normal [facility] ([place] Comment on above: Result Comment: GFR Population [...] BMP, ANEU, VIDH, URIC, CBC, GFR #### [address] [address] #### PTH #### [address] [address] .NEUABSon 02-21-2024 Neutrophil, Absolute 5.2 10 3/mcL Normal 2.9-6.2 [facility] [place] Comment on above: Performed By: #### A DIFF, BMP, ANEU, VIDH, URIC, CBC, GFR #### [address] [address] #### PTH #### [address] [address] BMPon 02-21-2024 BUN/Creatinine Ratio 13 ratio Normal 7-27 [facility] ([place] Comment on above: Performed By: #### A DIFF, BMP, ANEU, VIDH, URIC, CBC, GFR #### [address] [address] #### PTH #### [address] [address] Calcium [Mass/Vol] 10.1 mg/dL Normal 8.4-10.2 [facility] ([place] Comment on above: Performed By: #### A DIFF, BMP, ANEU, VIDH, URIC, CBC, GFR #### [address] [address] #### PTH #### [place] [address] Chloride [Moles/Vol] 105 mmol/L Normal 98-107 [facility] ([place] Comment on above: Performed By: #### A DIFF, BMP, ANEU, VIDH, URIC, CBC, GFR #### [address] [address] #### PTH #### [place] [address] CO2 [Moles/Vol] 29 mmol/L Normal 23-31 [facility] ([place] Comment on above: Performed By: #### A DIFF, BMP, ANEU, VIDH, URIC, CBC, GFR #### [address] [address] #### PTH #### [address] [address] Creatinine [Mass/Vol] 2.85 mg/dL High 0.70-1.30 [facility] ([place] Comment on above: Performed By: #### A DIFF, BMP, ANEU, VIDH, URIC, CBC, GFR #### [address] [address] #### PTH #### [address] [address] Electrolyte Balance 8.0 mEq/L Normal 4.0-15.0 Count includes the [facility] ([place]) Comment on above: Performed By: #### A DIFF, BMP, ANEU, VIDH, URIC, CBC, GFR #### [address] [address] #### PTH #### [address] [address] Glucose [Mass/Vol] 120 mg/dL High 83-110 [facility] ([place] Comment on above: Performed By: #### A DIFF, BMP, ANEU, VIDH, URIC, CBC, GFR #### [address] [address] #### PTH #### [address] [address] Potassium [Moles/Vol] 5.0 mmol/L Normal 3.5-5.1 [facility] ([place] Comment on above: Performed By: #### A DIFF, BMP, ANEU, VIDH, URIC, CBC, GFR #### [address] [address] #### PTH #### [place] [address] Sodium [Moles/Vol] 142 mmol/L Normal 136-145 [facility] ([place] Comment on above: Performed By: #### A DIFF, BMP, ANEU, VIDH, URIC, CBC, GFR #### [address] [address] #### PTH #### [address] [address] Urea nitrogen [Mass/Vol] 36 mg/dL High 7-18 [facility] ([place] Comment on above: Performed By: #### A DIFF, BMP, ANEU, VIDH, URIC, CBC, GFR #### [address] [address] #### PTH #### [address] [address] CBCon 02-21-2024 Erythrocyte distribution width (RBC) [Ratio] 14.8 % High 11.5-14.5 [facility] ([place] Comment on above: Performed By: #### A DIFF, BMP, ANEU, VIDH, URIC, CBC, GFR #### [place] [address] #### PTH #### [place] [address] Hematocrit (Bld) [Volume fraction] 34.7 % Low 42.0-52.0 [facility] ([place] Comment on above: Performed By: #### A DIFF, BMP, ANEU, VIDH, URIC, CBC, GFR #### [place] [address] #### PTH #### [place] [address] Hgb 11.4 G/dL Low 14.0-18.0 [facility] ([place] Comment on above: Performed By: #### A DIFF, BMP, ANEU, VIDH, URIC, CBC, GFR #### [place] [address] #### PTH #### [place] [address] MCH (RBC) [Entitic mass] 28.3 pg Normal 27.0-31.2 [facility] ([place] Comment on above: Performed By: #### A DIFF, BMP, ANEU, VIDH, URIC, CBC, GFR #### [place] [address] #### PTH #### [place] [address] MCHC 32.8 G/dL Normal 31.8-35.4 [facility] ([place] Comment on above: Performed By: #### A DIFF, BMP, ANEU, VIDH, URIC, CBC, GFR #### [place] [address] #### PTH #### [place] [address] MCV (RBC) [Entitic vol] 86.4 fL Normal 80.0-94.0 [facility] ([place]) Comment on above: Performed By: #### A DIFF, BMP, ANEU, VIDH, URIC, CBC, GFR #### [place] [address] #### PTH #### [place] [address] Platelet 93 10 3/mcL Low 130-400 [facility] ([place] Comment on above: Performed By: #### A DIFF, BMP, ANEU, VIDH, URIC, CBC, GFR #### [place] [address] #### PTH #### [place] [address] Platelet mean volume (Bld) [Entitic vol] 8.2 fL Normal 7.4-10.4 [facility] ([place] Comment on above: Performed By: #### A DIFF, BMP, ANEU, VIDH, URIC, CBC, GFR #### [place] [address] #### PTH #### [place] [address] RBC 4.01 10 6/mcL Low 4.04-6.13 [facility] ([place] Comment on above: Performed By: #### A DIFF, BMP, ANEU, VIDH, URIC, CBC, GFR #### [place] [address] #### PTH #### [place] [address] WBC 7.8 10 3/mcL Normal 4.6-10.8 [facility] ([place] Comment on above: Performed By: #### A DIFF, BMP, ANEU, VIDH, URIC, CBC, GFR #### [place] [address] #### PTH #### [place] [address] CRURon 02-21-2024 U Creatinine 98.9 mg/dL Normal 39.0-259.0 [facility] ([place]) Comment on above: Performed By: #### A DIFF, BMP, ANEU, VIDH, URIC, CBC, GFR #### [address] [place], [place] [address] #### PTH #### [address] [address] LABORATORYOrdered By: SYSTEM SYSTEM on 02-21-2024 Creatinine [...] 02-21-2024 U Protein 18 mg/dL High 0-11 [facility] ([place] Comment on above: Performed By: #### A DIFF, BMP, ANEU, VIDH, URIC, CBC, GFR #### [address] [place], [place] [address] #### PTH #### [address] [address] PTHon 02-21-2024 PTH, Intact 32.4 pg/mL Normal 18.5-88.0 [facility] ([place] Comment on above: Performed By: #### A DIFF, BMP, ANEU, VIDH, URIC, CBC, GFR #### [address] [address] #### PTH #### [place] [address] URICon 02-21-2024 Uric Acid Lvl 8.8 mg/dL High 3.5-7.2 [facility] ([place] Comment on above: Performed By: #### A DIFF, BMP, ANEU, VIDH, URIC, CBC, GFR #### [place] [address] #### PTH #### [place] [address] VIDHon 02-21-2024 Vit. D 25-Hydroxy 24.2 ng/mL Normal [facility] ([place] Comment on above: Result Comment: Inte rpretive Values Based on Total 25(OH) Vitamin D: Deficient <20 ng/mL Insufficient 20 - <30 ng/mL Sufficient 30-100 ng/mL Performed By: #### A DIFF, BMP, ANEU, VIDH, URIC, CBC, GFR #### [place] [address] #### PTH #### [address] [address] .Auto Diffon 10-27-2023 Basophil, Absolute 0.1 10 3/mcL Normal 0.0-0.2 [facility] ([place]) Comment on above: Performed By: #### A DIFF, BMP, ANEU, VIDH, URIC, CBC, GFR #### [address] [address] #### PTH #### [address] [address] Basophils/100 WBC (Bld) 0.8 % Normal 0.0-2.5 A [facility] ([place] Comment on above: Performed By: #### A DIFF, BMP, ANEU, VIDH, URIC, CBC, GFR #### [address] [address] #### PTH #### [address] [address] Eosinophil, Absolute 0.2 10 3/mcL Normal 0.0-0.4 [facility] [place] Comment on above: Performed By: #### A DIFF, BMP, ANEU, VIDH, URIC, CBC, GFR #### [address] [address] #### PTH #### [address] [address] Eosinophils/100 WBC (Bld) 3.1 % Normal 0.0-7.0 [facility] ([place] Comment on above: Performed By: #### A DIFF, BMP, ANEU, VIDH, URIC, CBC, GFR #### [address] [address] #### PTH #### [address] [address] Lymphocyte, Absolute 1.9 10 3/mcL Normal 0.8-3.9 [facility] ([place] Comment on above: Performed By: #### A DIFF, BMP, ANEU, VIDH, URIC, CBC, GFR #### [address] [address] #### PTH #### [address] [address] Lymphocytes/100 WBC (Bld) 26.5 % Normal 10.0-50.0 [facility] ([place] Comment on above: Performed By: #### A DIFF, BMP, ANEU, VIDH, URIC, CBC, GFR #### [address] [address] #### PTH #### [address] [address] Monocyte, Absolute 0.4 10 3/mcL Normal 0.2-1.0 [facility] ([place] Comment on above: Performed By: #### A DIFF, BMP, ANEU, VIDH, URIC, CBC, GFR #### [address] [address] #### PTH #### [address] [address] Monocytes/100 WBC (Bld) 6.0 % Normal 1.7-13.0 A [facility] ([place]) Comment on above: Performed By: #### A DIFF, BMP, ANEU, VIDH, URIC, CBC, GFR #### [address] [address] #### PTH #### [address] [address] Neutrophils/100 WBC (Bld) 63.6 % Normal 37.0-80.0 [facility] ([place]) Comment on above: Performed By: #### A DIFF, BMP, ANEU, VIDH, URIC, CBC, GFR #### [address] [address] #### PTH #### [address] [address] .GFRon 10-27-2023 GFR 29 ml/min/1.73sqm Normal [facility] ([place]) Comment on above: Result Comment: [...] BMP, ANEU, VIDH, URIC, CBC, GFR #### [address] [address] #### PTH #### [address] [address] GFR Non- 24 ml/min/1.73sqm Normal [facility] ([place] Comment on above: Result Comment: GFR Population [...] BMP, ANEU, VIDH, URIC, CBC, GFR #### [place] [address] #### PTH #### [address] [address] .NEUABSon 10-27-2023 Neutrophil, Absolute 4.5 10 3/mcL Normal 2.9-6.2 [facility] [place] Comment on above: Performed By: #### A DIFF, BMP, ANEU, VIDH, URIC, CBC, GFR #### [place] [address] #### PTH #### [address] [address] BMPon 10-27-2023 BUN/Creatinine Ratio 13 ratio Normal 7-27 [facility] ([place] Comment on above: Performed By: #### A DIFF, BMP, ANEU, VIDH, URIC, CBC, GFR #### [address] [address] #### PTH #### [address] [address] Calcium [Mass/Vol] 9.6 mg/dL Normal 8.4-10.2 [facility] ([place] Comment on above: Performed By: #### A DIFF, BMP, ANEU, VIDH, URIC, CBC, GFR #### [place] [id number] #### PTH #### [address] [address] Chloride [Moles/Vol] 107 mmol/L Normal 98-107 [facility] ([place] Comment on above: Performed By: #### A DIFF, BMP, ANEU, VIDH, URIC, CBC, GFR #### [address] [address] #### PTH #### [address] [address] CO2 [Moles/Vol] 29 mmol/L Normal 23-31 [facility] ([place] Comment on above: Performed By: #### A DIFF, BMP, ANEU, VIDH, URIC, CBC, GFR #### [place] [address] #### PTH #### [address] [address] Creatinine [Mass/Vol] 2.58 mg/dL High 0.70-1.30 [facility] [place] Comment on above: Performed By: #### A DIFF, BMP, ANEU, VIDH, URIC, CBC, GFR #### [place] [address] #### PTH #### [address] [address] Electrolyte Balance 7.0 mEq/L Normal 4.0-15.0 Count includes the [facility] ([place]) Comment on above: Performed By: #### A DIFF, BMP, ANEU, VIDH, URIC, CBC, GFR #### [place] [address] #### PTH #### [address] [address] Glucose [Mass/Vol] 113 mg/dL High 83-110 [facility] ([place] Comment on above: Performed By: #### A DIFF, BMP, ANEU, VIDH, URIC, CBC, GFR #### [place] [address] #### PTH #### [address] [address] Potassium [Moles/Vol] 4.0 mmol/L Normal 3.5-5.1 [facility] ([place] Comment on above: Performed By: #### A DIFF, BMP, ANEU, VIDH, URIC, CBC, GFR #### [address] [address] #### PTH #### [address] [address] Sodium [Moles/Vol] 143 mmol/L Normal 136-145 [facility] ([place] Comment on above: Performed By: #### A DIFF, BMP, ANEU, VIDH, URIC, CBC, GFR #### [address] [address] #### PTH #### [address] [address] Urea nitrogen [Mass/Vol] 34 mg/dL High 7-18 [facility] ([place] Comment on above: Performed By: #### A DIFF, BMP, ANEU, VIDH, URIC, CBC, GFR #### [address] [address] #### PTH #### [address] [address] CBCon 10-27-2023 Erythrocyte distribution width (RBC) [Ratio] 15.1 % High 11.5-14.5 [facility] ([place] Comment on above: Performed By: #### A DIFF, BMP, ANEU, VIDH, URIC, CBC, GFR #### [address] [address] #### PTH #### [address] [address] Hematocrit (Bld) [Volume fraction] 32.2 % Low 42.0-52.0 [facility] ([place] Comment on above: Performed By: #### A DIFF, BMP, ANEU, VIDH, URIC, CBC, GFR #### [address] [address] #### PTH #### [address] [address] Hgb 10.9 G/dL Low 14.0-18.0 [facility] ([place] Comment on above: Performed By: #### A DIFF, BMP, ANEU, VIDH, URIC, CBC, GFR #### [place] [address] #### PTH #### [place] [address] MCH (RBC) [Entitic mass] 29.1 pg Normal 27.0-31.2 [facility] ([place] Comment on above: Performed By: #### A DIFF, BMP, ANEU, VIDH, URIC, CBC, GFR #### [place] [address] #### PTH #### [place] [address] MCHC 33.8 G/dL Normal 31.8-35.4 [facility] ([place] Comment on above: Performed By: #### A DIFF, BMP, ANEU, VIDH, URIC, CBC, GFR #### [place] [address] #### PTH #### [place] [address] MCV (RBC) [Entitic vol] 86.0 fL Normal 80.0-94.0 A [facility] ([place] Comment on above: Performed By: #### A DIFF, BMP, ANEU, VIDH, URIC, CBC, GFR #### [place] [address] #### PTH #### [place] [address] Platelet 101 10 3/mcL Low 130-400 [facility] ([place] Comment on above: Performed By: #### A DIFF, BMP, ANEU, VIDH, URIC, CBC, GFR #### [place] [address] #### PTH #### [place] [address] Platelet mean volume (Bld) [Entitic vol] 7.7 fL Normal 7.4-10.4 [facility] ([place] Comment on above: Performed By: #### A DIFF, BMP, ANEU, VIDH, URIC, CBC, GFR #### [place] [address] #### PTH #### [place] [address] RBC 3.74 10 6/mcL Low 4.04-6.13 [facility] ([place] Comment on above: Performed By: #### A DIFF, BMP, ANEU, VIDH, URIC, CBC, GFR #### [place] [address] #### PTH #### [place] [address] WBC 7.0 10 3/mcL Normal 4.6-10.8 [facility] ([place] Comment on above: Performed By: #### A DIFF, BMP, ANEU, VIDH, URIC, CBC, GFR #### [place] [address] #### PTH #### [place] [address] CRURon 10-27-2023 U Creatinine 107.8 mg/dL Normal 39.0-259.0 [facility] ([place] Comment on above: Performed By: #### A DIFF, BMP, ANEU, VIDH, URIC, CBC, GFR #### [place] [address] #### PTH #### [place] [address] PRURon 10-27-2023 U Protein 22 mg/dL High 0-11 [facility] ([place] Comment on above: Performed By: #### A DIFF, BMP, ANEU, VIDH, URIC, CBC, GFR #### [place] [address] #### PTH #### [place] [address] PTHon 10-27-2023 PTH, Intact 48.1 pg/mL Normal 18.5-88.0 [facility] ([place] Comment on above: Performed By: #### A DIFF, BMP, ANEU, VIDH, URIC, CBC, GFR #### [address] [address] #### PTH #### [place] [address] URICon 10-27-2023 Uric Acid Lvl 8.0 mg/dL High 3.5-7.2 [facility] ([place] Comment on above: Performed By: #### A DIFF, BMP, ANEU, VIDH, URIC, CBC, GFR #### [place] [address] #### PTH #### [place] [address] VIDHon 10-27-2023 Vit. D 25-Hydroxy 29.2 ng/mL Normal [facility] ([place] Comment on above: Result Comment: Inte rpretive Values Based on Total 25(OH) Vitamin D: Deficient <20 ng/mL Insufficient 20 - <30 ng/mL Sufficient 30-100 ng/mL Performed By: #### A DIFF, BMP, ANEU, VIDH, URIC, CBC, GFR #### [place] [address] #### PTH #### [place] [address] VIDDHon 06-10-2023 Vit. D 1,25 Dihydro. 25.6 pg/mL Normal 19.9-79.3 [facility] ([place]) Comment on above: Result Comment: Perf ormed By: [facility] [employer] [address] [place] [address] Petrophysicist: Matthew Cheek III#: [id number] Performed By: #### A DIFF, BMP, ANEU, VIDH, URIC, CBC, GFR #### [address] [address] #### PTH #### [place] [address] .Auto Diffon 06-09-2023 Basophil, Absolute 0.1 10 3/mcL Normal 0.0-0.2 [facility] ([place] Comment on above: Performed By: #### A DIFF, BMP, ANEU, VIDH, URIC, CBC, GFR #### [address] [address] #### PTH #### [address] [address] Basophils/100 WBC (Bld) 0.8 % Normal 0.0-2.5 A [facility] ([place] Comment on above: Performed By: #### A DIFF, BMP, ANEU, VIDH, URIC, CBC, GFR #### [address] [address] #### PTH #### [address] [address] Eosinophil, Absolute 0.3 10 3/mcL Normal 0.0-0.4 [facility] [place] Comment on above: Performed By: #### A DIFF, BMP, ANEU, VIDH, URIC, CBC, GFR #### [address] [address] #### PTH #### [address] [address] Eosinophils/100 WBC (Bld) 3.8 % Normal 0.0-7.0 [facility] ([place] Comment on above: Performed By: #### A DIFF, BMP, ANEU, VIDH, URIC, CBC, GFR #### [address] [address] #### PTH #### [address] [address] Lymphocyte, Absolute 1.9 10 3/mcL Normal 0.8-3.9 [facility] [place] Comment on above: Performed By: #### A DIFF, BMP, ANEU, VIDH, URIC, CBC, GFR #### [address] [address] #### PTH #### [address] [address] Lymphocytes/100 WBC (Bld) 27.1 % Normal 10.0-50.0 [facility] ([place] Comment on above: Performed By: #### A DIFF, BMP, ANEU, VIDH, URIC, CBC, GFR #### [address] [address] #### PTH #### [address] [address] Monocyte, Absolute 0.4 10 3/mcL Normal 0.2-1.0 [facility] ([place] Comment on above: Performed By: #### A DIFF, BMP, ANEU, VIDH, URIC, CBC, GFR #### [address] [address] #### PTH #### [address] [address] Monocytes/100 WBC (Bld) 5.6 % Normal 1.7-13.0 A [facility] ([place] Comment on above: Performed By: #### A DIFF, BMP, ANEU, VIDH, URIC, CBC, GFR #### [address] [address] #### PTH #### [address] [address] Neutrophils/100 WBC (Bld) 62.7 % Normal 37.0-80.0 [facility] ([place] Comment on above: Performed By: #### A DIFF, BMP, ANEU, VIDH, URIC, CBC, GFR #### [address] [address] #### PTH #### [address] [address] .GFRon 06-09-2023 GFR Non- 20 ml/min/1.73sqm Normal [facility] ([place] Comment on above: Result Comment: GFR Population [...] BMP, ANEU, VIDH, URIC, CBC, GFR #### [address] [address] #### PTH #### [address] [address] GFR 25 ml/min/1.73sqm Normal [facility] ([place] Comment on above: Result Comment: GFR Population [...] BMP, ANEU, VIDH, URIC, CBC, GFR #### [address] [address] #### PTH #### [address] [address] .NEUABSon 06-09-2023 Neutrophil, Absolute 4.3 10 3/mcL Normal 2.9-6.2 [facility] [place] Comment on above: Performed By: #### A DIFF, BMP, ANEU, VIDH, URIC, CBC, GFR #### [address] [address] #### PTH #### [address] [address] BMPon 06-09-2023 BUN/Creatinine Ratio 11 ratio Normal 7-27 [facility] ([place] Comment on above: Performed By: #### A DIFF, BMP, ANEU, VIDH, URIC, CBC, GFR #### [address] [address] #### PTH #### [address] [address] Calcium [Mass/Vol] 9.8 mg/dL Normal 8.4-10.2 [facility] ([place] Comment on above: Performed By: #### A DIFF, BMP, ANEU, VIDH, URIC, CBC, GFR #### [place] [address] #### PTH #### [place] [address] Chloride [Moles/Vol] 107 mmol/L Normal 98-107 [facility] ([place] Comment on above: Performed By: #### A DIFF, BMP, ANEU, VIDH, URIC, CBC, GFR #### [place] [address] #### PTH #### [address] [address] CO2 [Moles/Vol] 31 mmol/L Normal 23-31 [facility] ([place] Comment on above: Performed By: #### A DIFF, BMP, ANEU, VIDH, URIC, CBC, GFR #### [address] [address] #### PTH #### [place] [address] Creatinine [Mass/Vol] 2.98 mg/dL High 0.70-1.30 [facility] [place] Comment on above: Performed By: #### A DIFF, BMP, ANEU, VIDH, URIC, CBC, GFR #### [place] [address] #### PTH #### [address] [address] Electrolyte Balance 6.0 mEq/L Normal 4.0-15.0 Count includes the [facility] ([place] Comment on above: Performed By: #### A DIFF, BMP, ANEU, VIDH, URIC, CBC, GFR #### [address] [address] #### PTH #### [address] [address] Glucose [Mass/Vol] 106 mg/dL Normal 83-110 [facility] ([place] Comment on above: Performed By: #### A DIFF, BMP, ANEU, VIDH, URIC, CBC, GFR #### [place] [address] #### PTH #### [address] [address] Potassium [Moles/Vol] 5.0 mmol/L Normal 3.5-5.1 [facility] [place] Comment on above: Performed By: #### A DIFF, BMP, ANEU, VIDH, URIC, CBC, GFR #### [place] [address] #### PTH #### [address] [address] Sodium [Moles/Vol] 144 mmol/L Normal 136-145 [facility] ([place] Comment on above: Performed By: #### A DIFF, BMP, ANEU, VIDH, URIC, CBC, GFR #### [place] [address] #### PTH #### [address] [address] Urea nitrogen [Mass/Vol] 32 mg/dL High 7-18 [facility] ([place] Comment on above: Performed By: #### A DIFF, BMP, ANEU, VIDH, URIC, CBC, GFR #### [place] [address] #### PTH #### [address] [address] CBCon 06-09-2023 Erythrocyte distribution width (RBC) [Ratio] 15.0 % High 11.5-14.5 [facility] ([place] Comment on above: Performed By: #### A DIFF, BMP, ANEU, VIDH, URIC, CBC, GFR #### [place] [address] #### PTH #### [place] [address] Hematocrit (Bld) [Volume fraction] 32.1 % Low 42.0-52.0 [facility] ([place] Comment on above: Performed By: #### A DIFF, BMP, ANEU, VIDH, URIC, CBC, GFR #### [place] [address] #### PTH #### [place] [address] Hgb 10.7 G/dL Low 14.0-18.0 [facility] ([place] Comment on above: Performed By: #### A DIFF, BMP, ANEU, VIDH, URIC, CBC, GFR #### [place] [address] #### PTH #### [place] [address] MCH (RBC) [Entitic mass] 29.1 pg Normal 27.0-31.2 [facility] ([place] Comment on above: Performed By: #### A DIFF, BMP, ANEU, VIDH, URIC, CBC, GFR #### [place] [address] #### PTH #### [place] [address] MCHC 33.4 G/dL Normal 31.8-35.4 [facility] ([place] Comment on above: Performed By: #### A DIFF, BMP, ANEU, VIDH, URIC, CBC, GFR #### [place] [address] #### PTH #### [place] [address] MCV (RBC) [Entitic vol] 86.9 fL Normal 80.0-94.0 A [facility] ([place] Comment on above: Performed By: #### A DIFF, BMP, ANEU, VIDH, URIC, CBC, GFR #### [place] [address] #### PTH #### [place] [address] Platelet 118 10 3/mcL Low 130-400 [facility] ([place] Comment on above: Performed By: #### A DIFF, BMP, ANEU, VIDH, URIC, CBC, GFR #### [place] [address] #### PTH #### [place] [address] Platelet mean volume (Bld) [Entitic vol] 8.4 fL Normal 7.4-10.4 [facility] ([place] Comment on above: Performed By: #### A DIFF, BMP, ANEU, VIDH, URIC, CBC, GFR #### [place] [address] #### PTH #### [place] [address] RBC 3.70 10 6/mcL Low 4.04-6.13 [facility] ([place] Comment on above: Performed By: #### A DIFF, BMP, ANEU, VIDH, URIC, CBC, GFR #### [place] [address] #### PTH #### [place] [address] WBC 6.8 10 3/mcL Normal 4.6-10.8 [facility] ([place] Comment on above: Performed By: #### A DIFF, BMP, ANEU, VIDH, URIC, CBC, GFR #### [place] [address] #### PTH #### [place] [address] CRURon 06-09-2023 U Creatinine 94.6 mg/dL Normal 39.0-259.0 [facility] ([place] Comment on above: Performed By: #### P RUR, CRUR #### [place] [address] PRURon 06-09-2023 U Protein 23 mg/dL High 0-11 [facility] ([place] Comment on above: Performed By: #### P RODRIGO ADAMS #### [address] [address] PTHon 06-09-2023 PTH, Intact 55.8 pg/mL Normal 18.5-88.0 [facility] ([place] Comment on above: Performed By: #### A DIFF, BMP, ANEU, VIDH, URIC, CBC, GFR #### [address] [address] #### PTH #### [place] [id number] URICon 06-09-2023 Uric Acid Lvl 8.6 mg/dL High 3.5-7.2 [facility] ([place] Comment on above: Performed By: #### A DIFF, BMP, ANEU, VIDH, URIC, CBC, GFR #### [place] [id number] #### PTH #### [place] [address] Albumin Elph [Mass/Vol]Order ed By: Braxton Doss on 04-01-2023 Albumin [Mass/Vol] 3.9 g/dL 2.9-4.4 [facility] Basophil percentageOrdered B y: Braxton Doss on 04-01-2023 Basophil percentage Comment . [facility] Comment on above: No monoclonality det ected.Performed at: - [facility] [id number] Director: Jonnathan Meeks PhD, Phone: [phone] No Panel InformationOrdered By: Braxton Doss on 04-01-2023 Addendum Document Comment . [facility] Comment on above: Protein electrophore sis scan will follow via computer,mail, or teleradiologist delivery. Serum oonok-0-spoyfopt measu rement by electrophoresisOrdered By: Braxton Doss on 04-01-2023 Alpha 1 globulin Elph [Mass/Vol] 0.2 g/dL 0.0-0.4 [facility] Alpha 1 globulin Elph [Mass/Vol] 0.7 g/dL 0.4-1.0 [facility] Serum globulin measurement ( mass/volume)Ordered By: Braxton Doss on 04-01-2023 Globulin (S) [Mass/Vol] 2.6 g/dL 2.2-3.9 [facility] Serum or plasma IgA measurem ent (mass/volume)Ordered By: Braxton Doss on 04-01-2023 IgA [Mass/Vol] 337 mg/dL 61-437 [facility] Serum or plasma IgG measurem ent (mass/volume)Ordered By: Braxtoncassandra Doss on 04-01-2023 IgG [Mass/Vol] 823 mg/dL 603-1613 [facility] Serum or plasma IgM measurem ent (mass/volume)Ordered By: Braxton Doss on 04-01-2023 IgM [Mass/Vol] 59 mg/dL 15-143 [facility] Serum or plasma beta globuli n measurement by electrophoresis (mass/volume)Ordered By: Braxton Doss on 04-01-2023 Beta globulin Elph [Mass/Vol] 1.1 g/dL 0.7-1.3 [facility] Serum or plasma gamma globul in measurement by electrophoresis (mass/volume)Ordered By: Braxton Doss on 04-01-2023 Gamma globulin Elph [Mass/Vol] 0.6 g/dL 0.4-1.8 [facility] Serum or plasma immunoelectr ophoresis interpretation (nominal result)Ordered By: Braxton Doss on 04-01-2023 Interpretation IEP [Interp] Comment . [facility] Comment on above: No monoclonality det ected. Thin prep Papanicolaou smear with manual screeningOrdered By: Braxton Doss on 04-01-2023 Thin prep Papanicolaou smear with manual screening 1.6 0.7-1.7 [facility] Total protein bloodOrdered B y: Braxton Doss on 04-01-2023 Protein [Mass/Vol] 6.5 g/dL 6.0-8.5 [facility] HFPon 02-25-2023 Bili Indirect 0.3 mg/dL Normal [facility] ([place] Comment on above: Performed By: #### A DIFF, BMP, ANEU, VIDH, URIC, CBC, GFR #### [address] [address] #### PTH #### [address] [address] Albumin Level 3.8 G/dL Normal 3.4-4.8 [facility] ([place] Comment on above: Performed By: #### A DIFF, BMP, ANEU, VIDH, URIC, CBC, GFR #### [address] [address] #### PTH #### [address] [address] Albumin/Globulin [Mass ratio] 1.4 {ratio} Normal 1.1-2.5 [facility] ([place] Comment on above: Performed By: #### A DIFF, BMP, ANEU, VIDH, URIC, CBC, GFR #### [place] [address] #### PTH #### [address] [address] ALP [Catalytic activity/Vol] 62 U/L Normal 40-135 [facility] ([place] Comment on above: Performed By: #### A DIFF, BMP, ANEU, VIDH, URIC, CBC, GFR #### [address] [address] #### PTH #### [address] [address] ALT [Catalytic activity/Vol] 14 U/L Low 16-63 [facility] ([place] Comment on above: Performed By: #### A DIFF, BMP, ANEU, VIDH, URIC, CBC, GFR #### [address] [address] #### PTH #### [address] [address] AST [Catalytic activity/Vol] 22 U/L Normal 10-40 [facility] ([place] Comment on above: Performed By: #### A DIFF, BMP, ANEU, VIDH, URIC, CBC, GFR #### [address] [address] #### PTH #### [address] [address] Bili Direct 0.2 mg/dL Normal 0.0-0.2 [facility] ([place] Comment on above: Result Comment: Use of this assay is not recommended for patients undergoing treatment with eltrombopag due to the potential for falsely elevated results. Performed By: #### A DIFF, BMP, ANEU, VIDH, URIC, CBC, GFR #### [address] [address] #### PTH #### [place] [address] Bili Total 0.5 mg/dL Normal 0.2-1.0 [facility] ([place] Comment on above: Result Comment: Use of this assay is not recommended for patients undergoing treatment with eltrombopag due to the potential for falsely elevated results. Performed By: #### A DIFF, BMP, ANEU, VIDH, URIC, CBC, GFR #### [address] [address] #### PTH #### [place] [address] Globulin 2.7 G/dL Normal [facility] ([place] Comment on above: Performed By: #### A DIFF, BMP, ANEU, VIDH, URIC, CBC, GFR #### [address] [address] #### PTH #### [place] [address] Total Protein 6.5 G/dL Normal 6.4-8.2 [facility] ([place] Comment on above: Performed By: #### A DIFF, BMP, ANEU, VIDH, URIC, CBC, GFR #### [address] [address] #### PTH #### [address] [address] LIPIDon 02-25-2023 Cholesterol [Mass/Vol] 85 mg/dL Normal 0-200 [facility] Comment on above: Result Comment: Chol esterol Reference Interval: Less than 200 Desirable 200-239 Borderline high risk 240 and above High risk Performed By: #### A DIFF, BMP, ANEU, VIDH, URIC, CBC, GFR #### [address] [address] #### PTH #### [address] [address] Cholesterol in HDL [Mass/Vol] 41 mg/dL Normal 40-60 [facility] [place] Comment on above: Performed By: #### A DIFF, BMP, ANEU, VIDH, URIC, CBC, GFR #### [address] [address] #### PTH #### [address] [address] Cholesterol in LDL [Mass/Vol] 33 mg/dL Normal 0-130 [facility] [place] Comment on above: Performed By: #### A DIFF, BMP, ANEU, VIDH, URIC, CBC, GFR #### [address] [address] #### PTH #### [address] [address] Triglyceride [Mass/Vol] 53 mg/dL Normal 0-150 A [facility] ([place] Comment on above: Result Comment: Trig lyceride Reference Interval: Less than 150 Normal 150-199 Borderline high risk 200-499 High risk 500 or higher Very high risk Performed By: #### A DIFF, BMP, ANEU, VIDH, URIC, CBC, GFR #### [address] [address] #### PTH #### [address] [address] Basophil percentageOrdered B y: Dr. Doss on 12-08-2022 Bilirubin [Mass/Vol] 0.70 mg/dL 0.20-1.00 [facility] Comment on above: For patients on eltr ombopag therapy, use of Dimension [place] TBIL is not recommended. Chloride [Moles/Vol] 107 mmol/L 98-107 [facility] Glucose [Mass/Vol] 165 mg/dL 74-106 [facility] Comment on above: Fasting Glucose resu lt greater than or equal to 126 mg/dL suggests DIABETES MELLITUS per A.D.A. criteria. Potassium [Moles/Vol] 4.5 mmol/L 3.5-5.1 [facility] Protein [Mass/Vol] 7.2 g/dL 6.4-8.2 [facility] Sodium [Moles/Vol] 140 mmol/L 136-145 [facility] WBC (Bld) [#/Vol] 8.3 10*3/uL 4.4-11.0 [facility] Blood erythrocytes count (nu mber/volume)Ordered By: Dr. Doss on 12-08-2022 RBC (Bld) [#/Vol] 3.84 10*6/uL 4.6-6.2 [facility] Blood hemoglobin measurement (mass/volume)Ordered By: Dr. Doss on 12-08-2022 Hemoglobin (Bld) [Mass/Vol] 11.3 g/dL 13.0-16.5 [facility] Blood platelet mean volumeOr dered By: Dr. Doss on 12-08-2022 Platelet mean volume (Bld) [Entitic vol] 11.2 fL 6.2-12.0 [facility] Determination of erythrocyte mean corpuscular volume (MCV)Ordered By: Dr. Doss on 12-08-2022 MCV (RBC) [Entitic vol] 91.7 fL 80-94 [facility] Hematocrit Auto (Bld) [Volum e fraction]Ordered By: Dr. Doss on 12-08-2022 Hematocrit (Bld) [Volume fraction] 35.2 % 40-54 [facility] Laboratory - Chemistry and C hemistry - challengeOrdered By: Dr. Doss on 12-08-2022 ALP [Catalytic activity/Vol] 55 U/L 45-117 [facility] ALT [Catalytic activity/Vol] 16 U/L 16-61 [facility] CO2 [Moles/Vol] 29.0 mmol/L 21.0-32.0 [facility] Cobalamin (Vitamin B12) [Mass/Vol] 426 pg/mL 211-911 [facility] Globulin (S) [Mass/Vol] 3.4 g/dL 2.2-4.2 [facility] Urea nitrogen/Creatinine [Mass ratio] 13.2 mg/mg 10-20 [facility] Laboratory - Hematology and Cell countsOrdered By: Dr. Doss on 12-08-2022 Erythrocyte distribution width (RBC) [Entitic vol] 47.5 fL 35.1-43.9 [facility] Erythrocyte distribution width (RBC) [Ratio] 14.1 % 11.6-14.6 [facility] MCH (RBC) [Entitic mass] 29.4 pg 27.0-32.0 [facility] MCHC Auto (RBC) [Mass/Vol]Or dered By: Dr. Doss on 12-08-2022 MCHC (RBC) [Mass/Vol] 32.1 g/dL 32-36 [facility] No Panel InformationOrdered By: Dr. Doss on 12-08-2022 Estimated GFR (MDRD) Amer 28 mL/min >60 [facility] Comment on above: GFR Calc Estimated GFR (MDRD) Non-Af Amer 23 mL/min >60 [facility] Comment on above: Non- GFR Calc Free Lambda Light Chains, Quant 38.1 mg/L 5.7-26.3 [facility] Thyroid Stimulating Hormone (TSH) 1.17 uIU/mL 0.358-3.74 [facility] Whole Blood Vitamin B1 Level 120.3 nmol/L 66.5-200.0 [facility] Comment on above: Performed at: - [address] [id number] Director: Jonnathan Meeks PhD, Phone: [phone] at: - [facility] [id number] Director: Mariaelena Hanna MD, Phone: [phone] Platelets bldOrdered By: Dr. Doss on 12-08-2022 Platelets (Bld) [#/Vol] 162 10*3/uL 150-450 [facility] Serum immunoglobulin kappa l ight chains/immunoglobulin lambda light chains mass ratioOrdered By: Dr. Doss on 12-08-2022 Immunoglobulin light chains.kappa/Immunoglobu katie light chains.lambda (S) [Mass ratio] 1.89 0.26-1.65 [facility] Serum or plasma albumin francisco urement (mass/volume)Ordered By: Dr. Doss on 12-08-2022 Albumin [Mass/Vol] 3.8 g/dL 3.2-5.0 [facility] Serum or plasma albumin/glob ulin mass ratioOrdered By: Dr. Doss on 12-08-2022 Albumin/Globulin [Mass ratio] 1.1 {ratio} 0.9-2.4 [facility] Serum or plasma calcium francisco urement (mass/volume)Ordered By: Dr. Doss on 12-08-2022 Calcium [Mass/Vol] 10.1 mg/dL 8.5-10.1 [facility] Serum or plasma creatinine m easurement (mass/volume)Ordered By: Dr. Doss on 12-08-2022 Creatinine [Mass/Vol] 2.81 mg/dL 0.70-1.30 [facility] Comment on above: The validity of the calculated GFR & GFRAA in patients over 70 years has not been determined. Clinical correlation is essential. Serum or plasma folate measu rement (mass/volume)Ordered By: Dr. Doss on 12-08-2022 Folate [Mass/Vol] 6.40 ng/mL 3.1-55.4 [facility] Serum or plasma immunoglobul in kappa light chains measurement (mass/volume)Ordered By: Dr. Doss on 12-08-2022 Immunoglobulin light chains.kappa [Mass/Vol] 72.1 mg/L 3.3-19.4 [facility] Serum or plasma urea nitroge n measurement (mass/volume)Ordered By: Dr. Doss on 12-08-2022 Urea nitrogen [Mass/Vol] 37 mg/dL 7-18 [facility] Thin prep Papanicolaou smear with manual screeningOrdered By: Dr. Doss on 12-08-2022 Thin prep Papanicolaou smear with manual screening 21 U/L 15-37 [facility] Thin prep Papanicolaou smear with manual screening 4 5-15 [facility] LABORATORYOrdered By: Rhett Figueroa on 10-30-2022 Anisocytosis [...] Interpretation Code AO ADM SS LABORATORYOrdered By: [employer] on 10-19-2022 Ferritin [Mass/Vol] 37.0 ng/mL [...] 150 mg/dL AO ADM SS LABORATORYOrdered By: [employer] on 01-19-2022 GFR 32 ml/min/1.73sqm Invalid [...] 27 ratio AO ADM SS LABORATORYOrdered By: [employer] on 11-18-2021 GFR 31 ml/min/1.73sqm Invalid Interpretation Code AO Chemistry S GFR Non- 26 ml/min/1.73sqm Inval id Interpretation Code AO Chemistry S Vital Signs Date Time Vital Sign Value Performing Clinician Facility 07-12-2025 12:17-0400 Diastolic Blood Pressure Non-Invasive 59 mm[Hg] FLORENTINPERLA MORAN DO [facility] 07-12-2025 12:17-0400 Heart rate 68 /min FLORENTIN MORAN DO [facility] 07-12-2025 12:17-0400 Respiratory rate 20 /min FLORENTIN MORAN DO [facility] 07-12-2025 12:17-0400 Systolic Blood Pressure Non-Invasive 105 mm[Hg] FLORENTIN MORAN DO [facility] 07-12-2025 09:39-0400 Body height 175.3 cm FLORENTIN MORAN DO [facility] 07-12-2025 09:39-0400 Body temperature 96.98 [degF] FLORENTIN MORAN DO [facility] 07-12-2025 09:39-0400 Body weight 90.9 kg FLORENTIN MORAN DO [facility] 07-12-2025 09:39-0400 Diastolic Blood Pressure Non-Invasive 54 mm[Hg] FLORENTINPERLA MORAN DO [facility] 07-12-2025 09:39-0400 Heart rate 79 /min FLORENTIN MORAN DO [facility] 07-12-2025 09:39-0400 Respiratory rate 16 /min FLORENTIN MORAN DO [facility] 07-12-2025 09:39-0400 Systolic Blood Pressure Non-Invasive 93 mm[Hg] FLORENTIN MORAN DO [facility] 06-11-2025 14:35-0400 Diastolic blood pressure 56 mm[Hg] Dr. Jluis Nichole DO Work Phone: [facility] 06-11-2025 14:35-0400 Systolic blood pressure 108 mm[Hg] Dr. Jluis Nichole DO Work Phone: [facility] 06-11-2025 13:56-0400 Body temperature 98 [degF] Dr. Jluis Nichole DO Work Phone: [facility] 06-11-2025 13:56-0400 Heart rate 68 /min Dr. Jluis Nichole DO Work Phone: [facility] 06-11-2025 13:56-0400 Respiratory rate 15 /min Dr. Jluis Nichole DO Work Phone: [facility] 06-11-2025 13:56-0400 SaO2% (BldA) [Mass fraction] 97 % Dr. Jluis Nichole DO Work Phone: [facility] 03-28-2025 09:39-0400 Body temperature 98.8 [degF] Dr. Jluis Nichole DO Work Phone: [facility] 03-28-2025 09:39-0400 Diastolic blood pressure 62 mm[Hg] Dr. Jluis Nichole DO Work Phone: [facility] 03-28-2025 09:39-0400 Heart rate 61 /min Dr. Jluis Nichole DO Work Phone: [facility] 03-28-2025 09:39-0400 Respiratory rate 15 /min Dr. Jluis Nichole DO Work Phone: [facility] 03-28-2025 09:39-0400 SaO2% (BldA) [Mass fraction] 100 % Dr. Jluis Nichole DO Work Phone: [facility] 03-28-2025 09:39-0400 Systolic blood pressure 104 mm[Hg] Dr. Jluis Nichole DO Work Phone: [facility] 02-16-2025 15:34-0400 Body height 175.[address] Jluis Nichole DO Work Phone: [facility] 02-16-2025 15:34-0400 Body mass index (BMI) [Ratio] 30.4 kg/m2 Dr. Jluis Nichole DO Work Phone: [facility] 02-16-2025 15:34-0400 Body weight 93.[address] Jluis Nichole DO Work Phone: [facility] 02-16-2025 15:34-0400 Diastolic blood pressure 72 mm[Hg] Dr. Jluis Nichole DO Work Phone: [facility] 02-16-2025 15:34-0400 Heart rate 71 /min Dr. Jluis Nichole DO Work Phone: [facility] 02-16-2025 15:34-0400 Respiratory rate 18 /min Dr. Jluis Nichole DO Work Phone: [facility] 02-16-2025 15:34-0400 Systolic blood pressure 152 mm[Hg] Dr. Jluis Nichole DO Work Phone: [facility] 11-29-2024 09:47-0400 Body temperature 97.8 [degF] Dr. Jluis Nichole DO Work Phone: [facility] 11-29-2024 09:47-0400 Diastolic blood pressure 68 mm[Hg] Dr. Jluis Nichole DO Work Phone: [facility] 11-29-2024 09:47-0400 Heart rate 64 /min Dr. Jluis Nichole DO Work Phone: [facility] 11-29-2024 09:47-0400 Respiratory rate 16 /min Dr. Jluis Nichole DO Work Phone: [facility] 11-29-2024 09:47-0400 SaO2% (BldA) [Mass fraction] 100 % Dr. Jluis Nichole DO Work Phone: [facility] 11-29-2024 09:47-0400 Systolic blood pressure 110 mm[Hg] Dr. Jluis Nichole DO Work Phone: [facility] 11-16-2024 10:19-0500 Body temperature 97.9 [degF] Dr. Jluis Nichole DO Work Phone: [facility] 11-16-2024 10:19-0500 Body weight 87.[address] Jluis Nichole DO Work Phone: [facility] 11-16-2024 10:19-0500 Diastolic blood pressure 76 mm[Hg] Dr. Jluis Nichole DO Work Phone: [facility] 11-16-2024 10:19-0500 Heart rate 68 /min Dr. Jluis Nichole DO Work Phone: [facility] 11-16-2024 10:19-0500 SaO2% (BldA) [Mass fraction] 97 % Dr. Jluis Nichole DO Work Phone: [facility] 11-16-2024 10:19-0500 Systolic blood pressure 120 mm[Hg] Dr. Jluis Nichole DO Work Phone: [facility] 09-12-2024 10:19-0500 Body height 172.7 cm Toney Gutierrez MD Work Phone: [facility] 09-12-2024 10:19-0500 Body mass index (BMI) [Ratio] 29.95 kg/m2 Toney Gutierrez MD Work Phone: [facility] 09-12-2024 10:19-0500 Body temperature 97.11 [degF] Toney Gutierrez MD Work Phone: [facility] 09-12-2024 10:19-0500 Body weight 89.36 kg Toney Gutierrez MD Work Phone: [facility] 09-12-2024 10:19-0500 Diastolic blood pressure 59 mm[Hg] Toney Gutierrez MD Work Phone: [facility] 09-12-2024 10:19-0500 Heart rate 58 /min Toney Gutierrez MD Work Phone: [facility] 09-12-2024 10:19-0500 SaO2% (BldA) [Mass fraction] 96 % Toney Gutierrez MD Work Phone: [facility] 09-12-2024 10:19-0500 Systolic blood pressure 128 mm[Hg] Toney Gutierrez MD Work Phone: [facility] 06-14-2024 11:21-0400 Blood Pressure Location FLORENTIN MORAN DO [facility] 06-14-2024 11:21-0400 Blood Pressure Method FLORENTIN MORAN DO [facility] 06-14-2024 11:21-0400 Body temperature 98.24 [degF] FLORENTIN MORAN DO [facility] 06-14-2024 11:21-0400 Diastolic Blood Pressure Non-Invasive 69 mm[Hg] FLORENTIN MORAN DO [facility] 06-14-2024 11:21-0400 Heart rate 60 /min FLORENTIN MORAN DO [facility] 06-14-2024 11:21-0400 Respiratory rate 18 /min FLORENTIN MORAN DO [facility] 06-14-2024 11:21-0400 Systolic Blood Pressure Non-Invasive 127 mm[Hg] FLORENTIN MORAN DO [facility] 04-01-2023 10:44-0400 Body height 175.[address] Layne Doherty Work Phone: [facility] 04-01-2023 10:44-0400 Body mass index (BMI) [Ratio] 29.3 kg/m2 Dr. Layne Doherty Work Phone: [facility] 04-01-2023 10:44-0400 Body temperature 98.9 [degF] Dr. Layne Doherty Work Phone: [facility] 04-01-2023 10:44-0400 Body weight 90.[address] Layne Doherty Work Phone: [facility] 04-01-2023 10:44-0400 Diastolic blood pressure 50 mm[Hg] Dr. Layne Doherty Work Phone: [facility] 04-01-2023 10:44-0400 Heart rate 76 /min Dr. Layne Doherty Work Phone: [phone] [place] [address] 04-01-2023 10:44-0400 Respiratory rate 15 /min Dr. Layne Doherty Work Phone: [facility] 04-01-2023 10:44-0400 SaO2% (BldA) [Mass fraction] 99 % Dr. Layne Doherty Work Phone: [facility] 04-01-2023 10:44-0400 Systolic blood pressure 114 mm[Hg] Dr. Layne Doherty Work Phone: [facility] 03-02-2023 08:32-0400 Body mass index (BMI) [Ratio] 29.7 kg/m2 Dr. Layne Doherty Work Phone: [facility] 03-02-2023 08:32-0400 Body weight 91.[address] Layne Doherty Work Phone: [facility] 03-02-2023 08:32-0400 Diastolic blood pressure 59 mm[Hg] Dr. Layne Doherty Work Phone: [facility] 03-02-2023 08:32-0400 Heart rate 64 /min Dr. Layne Doherty Work Phone: [facility] 03-02-2023 08:32-0400 Respiratory rate 16 /min Dr. Layne Doherty Work Phone: [facility] 03-02-2023 08:32-0400 Systolic blood pressure 111 mm[Hg] Dr. Layne Doherty Work Phone: [facility] 11-26-2022 13:05-0500 Diastolic blood pressure 68 mm[Hg] Dr. Layne Doherty Work Phone: [facility] 11-26-2022 13:05-0500 Systolic blood pressure 116 mm[Hg] Dr. Layne Doherty Work Phone: [facility] 11-26-2022 10:02-0500 Body height 175.[address] Layne Doherty Work Phone: [facility] 11-26-2022 10:02-0500 Body mass index (BMI) [Ratio] 29.2 kg/m2 Dr. Layne Doherty Work Phone: [facility] 11-26-2022 10:02-0500 Body temperature 98.2 [degF] Dr. Layne Doherty Work Phone: [facility] 11-26-2022 10:02-0500 Body weight 90.[address] Layne Doherty Work Phone: [facility] 11-26-2022 10:02-0500 Heart rate 67 /min Dr. Layne Doherty Work Phone: [facility] 11-26-2022 10:02-0500 Respiratory rate 17 /min Dr. Layne Doherty Work Phone: [facility] 11-26-2022 10:02-0500 SaO2% (BldA) [Mass fraction] 99 % Dr. Layne Doherty Work Phone: [facility] 09-01-2022 08:20-0500 Body mass index (BMI) [Ratio] 26.6 kg/m2 Dr. Layne Doherty Work Phone: [facility] 09-01-2022 08:20-0500 Body weight 81.[address] Layne Doherty Work Phone: [facility] 09-01-2022 08:20-0500 Diastolic blood pressure 77 mm[Hg] Dr. Layne Doherty Work Phone: [facility] 09-01-2022 08:20-0500 Heart rate 64 /min Dr. Layne Doherty Work Phone: [facility] 09-01-2022 08:20-0500 Respiratory rate 20 /min Dr. Layne Doherty Work Phone: [facility] 09-01-2022 08:20-0500 SaO2% (BldA) [Mass fraction] 98 % Dr. Layne Doherty Work Phone: [facility] 09-01-2022 08:20-0500 Systolic blood pressure 142 mm[Hg] Dr. Layne Doherty Work Phone: [facility] 03-09-2022 08:36-0400 Body height 175.[address] Layne Doherty Work Phone: [facility] Work Phone: 03-09-2022 08:36-0400 Body mass index (BMI) [Ratio] 28.5 kg/m2 Dr. Layne Doherty Work Phone: [facility] Work Phone: 03-09-2022 08:36-0400 Body weight 87.[address] Layne Doherty Work Phone: [facility] Work Phone: 03-09-2022 08:36-0400 Diastolic blood pressure 78 mm[Hg] Dr. Layne Doherty Work Phone: [facility] Work Phone: 03-09-2022 08:36-0400 Heart rate 64 /min Dr. Layne Doherty Work Phone: [facility] Work Phone: 03-09-2022 08:36-0400 Respiratory rate 18 /min Dr. Layne Doherty Work Phone: [facility] Work Phone: 03-09-2022 08:36-0400 Systolic blood pressure 144 mm[Hg] Dr. Layne Doherty Work Phone: [facility] Work Phone: Encounters Encounter Date Encounter Type Care Provider Facility Start: 07-31-2025 ambulatory Jluis Nichole Facility:[facility] Start: 07-30-2025 ambulatory Jluis Nichole Facility:[facility] Start: 07-24-2025 End: 07-24-2025 ambulatory Jluis MILAN Facility:[facility] Start: 07-16-2025 End: 07-16-2025 ambulatory Jluis MILAN Facility:[facility] Start: 07-12-2025 End: 07-12-2025 Emergency department patient visit FLORENTIN DEAN LEE [facility] Start: 07-11-2025 End: 07-11-2025 ambulatory Jluis MILAN Facility:[facility] Start: 07-05-2025 End: 07-05-[address] JLUIS NICHOLE DO Facility:[facility] Start: 07-05-2025 End: 07-05-[address] JLUIS NICHOLE DO [facility] Start: 07-04-2025 End: 07-08-[address] JLUIS NICHOLE DO [facility] Start: 07-04-2025 End: 07-08-[address] JLUIS NICHOLE DO Facility:[facility] Start: 07-04-2025 End: 07-04-[address] JLUIS NICHOLE DO [facility] Start: 06-11-2025 End: 06-11-[address] Braxton Doss MD -[facility] Work Phone: Start: 06-11-2025 End: 06-11-[address] Jluis Nichole DO Work Phone: -[facility] Start: 04-26-2025 End: 04-26-[address] Jluis Nichole DO Work Phone: -Ultrasound [facility] Start: 04-26-2025 End: 04-26-[address] Porsha Bass DO -Ultrasound [facility] Work Phone: Start: 04-26-2025 End: 04-26-2025 ambulatory Porsha Bass Facility:[facility] Start: 04-19-2025 End: 04-19-[address] Jluis Nichole DO Work Phone: -Laboratory Phy [facility] 3rd Flr Start: 04-19-2025 End: 04-19-[address] Porsha Bass DO -[facility]rd Fl[facility] Start: 04-19-2025 End: 04-19-2025 ambulatory Porsha Bass Facility:[facility] Start: 04-10-2025 Non-patient / Non-visit Dr. Cecilio huitron MD -[facility] Start: 04-10-2025 End: 04-10-[address] Jluis Nichole DO Work Phone: -Cardiovascular Services Start: 04-10-2025 End: 04-10-2025 Patient encounter procedure Sharon RAGLAND -[facility] Services Work Phone: Start: 04-10-2025 End: 04-10-2025 ambulatory Porsha Bass Facility:[facility] Start: 03-28-2025 Non-patient / Non-visit Dr. Desire ROMAN -[facility] Start: 03-28-2025 End: 03-28-[address] Jluis Nichole DO Work Phone: -Cardiovascular Services Start: 03-28-2025 End: 03-28-2025 Patient encounter procedure Bailey CONTE -Cardiovascular Services Work Phone: Start: 03-28-2025 End: 03-28-2025 Patient encounter procedure Sharon RAGLAND -[facility] Work Phone: Start: 03-28-2025 End: 03-28-[address] Jluis Nichole DO Work Phone: -[facility] Start: 03-28-2025 End: 03-28-2025 ambulatory Jluis Nichole Facility:[facility] Start: 02-23-2025 End: 04-17-[address] JLUIS NICHOLE DO Facility:[facility] Start: 02-22-2025 End: 02-22-2025 Emergency department patient visit DAVID LAST MD [facility] Start: 02-21-2025 End: 02-25-[address] JLUIS NICHOLE DO Facility:[facility] Start: 02-21-2025 End: 02-25-[address] JLUIS NICHOLE DO [facility] Start: 02-16-2025 End: 02-16-2025 Patient encounter procedure Bailey CONTE -[facility] Work Phone: Start: 02-16-2025 End: 02-16-[address] Jluis Nichole DO Work Phone: [facility] Work Phone: Start: 02-08-2025 End: 02-08-[address] Jluis Nichole DO Work Phone: [facility] Work Phone: Start: 02-08-2025 End: 02-08-2025 Patient encounter procedure Maryuri RAGLAND -Laboratory Work Phone: Start: 02-08-2025 End: 02-08-2025 ambulatory Maryuri Begum Facility:[facility] Start: 11-29-2024 End: 11-29-[address] Braxton Doss MD -[facility] Work Phone: Start: 11-29-2024 End: 11-29-2024 ambulatory Braxton Doss Facility:[facility] Start: 11-16-2024 End: 11-16-2024 ambulatory Elijah Quintero DG Facility:[facility] Start: 11-16-2024 End: 11-16-2024 Patient encounter procedure Elijah Quintero DG -[facility] Work Phone: Start: 11-01-2024 End: 11-01-[address] JLUIS NICHOLE DO Facility:[facility] Start: 11-01-2024 End: 11-01-[address] TIA POWELL MD [facility] Start: 09-12-2024 End: 09-12-2024 ambulatory Toney Gutierrez MD Work Phone: Hematology/Oncology Comment on above: Thrombocytopenia (HC C) (Primary Dx); Anemia, unspecified type Start: 09-12-2024 End: 09-12-2024 Patient encounter procedure Toney Gutierrez MD Work Phone: Hematology/Oncology Start: 08-14-2024 End: 08-14-[address] JLUIS NICHOLE DO Facility:[facility] Start: 08-14-2024 End: 08-14-[address] JLUIS NICHOLE DO [facility] Start: 08-11-2024 End: 08-15-[address] JLUIS NICHOLE DO Facility:[facility] Start: 08-11-2024 End: 08-15-2024 Encounter for general adult medical examination without abnormal findings DR JLUIS NICHOLE DO Facility:[facility] Start: 08-11-2024 End: 08-15-[address] JLUIS NICHOLE DO [facility] Start: 07-07-2024 End: 07-07-[address] TIA POWELL MD [facility] Start: 06-14-2024 End: 06-14-2024 Emergency department patient visit FLORENTIN MORAN DO [facility] Start: 02-21-2024 End: 02-21-[address] TIA POWELL MD Facility:[facility] Start: 02-21-2024 End: 02-21-[address] TIA POWELL MD [facility] Start: 11-19-[address] JLUIS NICHOLE DO Facili ty:[facility] Start: 11-15-2023 End: 12-15-[address] JLUIS NICHOLE DO Facility:[facility] Start: 10-27-2023 End: 10-27-[address] TIA POWELL MD Facility:[facility] Start: 06-24-2023 End: 06-25-[address] JLUIS NICHOLE DO Facility:[facility] Start: 06-09-2023 End: 06-09-[address] TIA POWELL MD Facility:[facility] Start: 04-01-2023 End: 04-01-[address] Layne Doherty Work Phone: [facility] Work Phone: Start: 04-01-2023 End: 04-01-[address] Layne Doherty Work Phone: [facility] Work Phone: Start: 04-01-2023 End: 04-01-[address] Layne Doherty Work Phone: [facility] Work Phone: Start: 03-02-2023 End: 03-02-[address] Layne Doherty Work Phone: [facility] Work Phone: Start: 02-25-2023 End: 02-25-2023 ambulatory MARYURI SHY ABBASI Facility:[facility] Start: 12-14-2022 End: 12-14-[address] Layne Doherty Work Phone: [facility] Work Phone: Start: 12-14-2022 End: 12-14-[address] Layne Doherty Work Phone: [facility] Start: 12-08-2022 End: 12-08-[address] Layne Doherty Work Phone: [facility] Work Phone: Start: 12-08-2022 End: 12-08-[address] Layne Doherty Work Phone: [facility] Start: 11-26-2022 End: 11-26-[address] Layne Doherty Work Phone: [facility] Start: 10-30-2022 End: 10-30-[address] TIA POWELL MD [facility] Start: 10-19-2022 End: 10-19-[address] JLUIS NICHOLE DO [facility] Start: 09-01-2022 End: 09-01-[address] Layne Doherty Work Phone: [facility] Start: 08-25-2022 End: 08-25-2022 Patient encounter procedure MARYURI BEGUM CLINICAL PROGRAM DIRECTOR [facility] Start: 04-29-2022 End: 04-29-[address] TIA POWELL MD [facility] Start: 03-09-2022 End: 03-09-[address] [facility] Start: 03-07-2022 End: 03-07-[address] Layne Doherty Work Phone: [facility] Start: 01-19-2022 End: 01-19-[address] TIA POWELL MD [facility] Start: 12-30-2021 End: 04-07-2022 Physical therapy management LAYNE DOHERTY DO [facility] Start: 11-18-2021 End: 11-18-2021 Patient encounter procedure MARYURI BEGUM CNP [facility] Start: 06-01-2018 Patient encounter ARTEM Friedman cility:[facility] Procedures Date Procedure Procedure Detail Performing Clinician Start: 04-26-2025 Complete ultrasound of kidneys and bladder Dr. Jluis Nichole DO Work Phone: Start: 12-14-2022 MRI of brain without contrast Dr. Layne Doherty Work Phone: Start: 03-07-2022 MRI of brain without contrast Dr. Layne Doherty Work Phone: Start: 02-01-2019 Cystoscopy MARYURI BEGUM CLINICAL PROGRAM DIRECTOR Comment on above: Per [place] office no te Start: 08-03-2018 Transurethral prostatectomy MARYURI BEGUM CLINICAL PROGRAM DIRECTOR Comment on above: Per [place] office no te Start: 08-03-2018 Transurethral resect ion of bladder neoplasm MARYURI BEGUM CLINICAL PROGRAM DIRECTOR Comment on above: Per [place] office no [...] Start: 09-20-2002 Biopsy of prostate MARYURI BEGUM CLINICAL PROGRAM DIRECTOR Comment on above: Per [place] office no te Start: 09-20-1997 Biopsy of prostate MARYURI BEGUM CLINICAL PROGRAM DIRECTOR Comment on above: Per [place] office no te Extracorporeal shock wave lithotripsy of calculus of kidney MARYURI BEGUM CLINICAL PROGRAM DIRECTOR Comment on above: Per [place] office no te Knee region structur e (body structure) MARYURI BEGUM CLINICAL PROGRAM DIRECTOR Procedure on heart MARYURI BEGUM CLINICAL PROGRAM DIRECTOR Structure of left wr ist (body structure) MARYURI BEGUM CLINICAL PROGRAM DIRECTOR Comment on above: Pins s/p fall on ice Plan of Treatment Date Care Activity Detail Author Start: 10-07-2032 Urine microalbumin profile DTaP,Tdap,Td Vaccine (2 - Td or Tdap) [facility] Start: 01-11-2025 End: 01-11-2025 ambulatory 01/11/2025 10:20 AM EDT Visit (SP) Office Hematology/Oncology [address] [place] [address] [place] [address] [place] [address] CBC/ 4 MO OV Hematology/Oncology Comment on above: CBC/ 4 MO OV Start: 09-12-2024 End: 12-12-2024 aPTT in Platelet poor plasma by Coagulation assay ACTIVATED PARTIAL THROMBOPLASTIN TIME Lab Routine Thrombocytopenia (HCC) Expected: 09/12/2024, Expires: 12/12/2024 [facility] Comment on above: Expected: 09/12/2024 , Expires: 12/12/2024 Start: 09-12-2024 End: 12-12-2024 CBC W Auto Differential panel - Blood COMPLETE BLOOD COUNT AND DIFFERENTIAL Lab Routine Thrombocytopenia (HCC) Expected: 09/12/2024, Expires: 12/12/2024 [facility] Work Phone: Comment on above: Expected: 09/12/2024 , Expires: 12/12/2024 Start: 09-12-2024 End: 12-12-2024 PT panel - Platelet poor plasma by Coagulation assay PROTHROMBIN TIME Lab Routine Thrombocytopenia (HCC) Expected: 09/12/2024, Expires: 12/12/2024 [facility] Comment on above: Expected: 09/12/2024 , Expires: 12/12/2024 Start: 05-21-2024 Covid-19 Vaccine ( season) Covid-19 Vaccine () [facility] Start: 09-20-2023 Advance Directive Discussion Advance Directive Discussion [facility] Start: 08-13-2023 Shingrix Vaccine (2 of 2) Shingrix Vaccine (2 of 2) [facility] Start: 04-01-2023 Serum immunofixation [facility] Start: 04-01-2023 Urine immunofixation [facility] Start: 11-26-2022 Patient referral [facility] Work Phone: Start: 07-01-2019 Hepatitis B surface antibody level LDL Cholesterol [facility] Start: 11-10-2018 Hemoglobin A1c measurement HbA1C [facility] Start: 1958 Anxiety Screening Anxiety Screening [facility] Start: 1958 Depression Screening Depression Scre ening [facility] Start: 1950 Diabetic foot examination Diabetic Foot Exam [facility] Start: 1950 Glaucoma screening Dilated Retinal E xam [facility] Start: 1950 Hepatitis B screening Urine Al bumin:Creatinine Ratio [facility] MR Brain WO contrast [facility] Patient referral [facility] Work Phone: Serum protein electrophoresis [facility] US Carotid arteries [facility] Immunizations Immunization Date Immunization Notes Care Provider Fa louis 06-28-2024 influenza, high dose seasonal, preservative-free; Translations: [Fluad PF Prefilled Syringe ] DR TIA POWELL MD [facility] 08-22-2023 RSV vaccine preF3, recombinant DR TIA POWELL MD [facility] 07-15-2023 SARS-CoV-2 (COVID-19 ) [id number] DR TIA POWELL MD [facility] 06-18-[address] TIA POWELL MD [facility] Comment on above: Result Comment: [facility]. IM left upper arm 05-15-2023 influenza virus vaccine, unspecified formulation DR TIA POWELL MD [facility] 04-27-2023 pneumococcal 20-keron nt conjugate vaccine DR TIA POWELL MD [facility] 10-07-2022 tetanus toxoid, reduced diphtheria toxoid, and acellular pertussis vaccine, adsorbed; Translations: [Boostrix (Tdap)] DR JLUIS NICHOLE DO [facility] 08-22-2022 influenza virus vaccine, unspecified formulation DR TIA POWELL MD [facility] 01-26-2022 SARS-CoV-2 (COVID-19 ) [id number] TIA POWELL MD [facility] 07-24-2021 SARS-CoV-2 (COVID-19 ) [id number] TIA POWELL MD [facility] Comment on above: Result Comment: 2022: [id number] 06-04-2021 influenza virus vaccine, unspecified formulation DR TIA POWELL MD [facility] 11-07-2020 COVID-19, mRNA, LNP- S, PF, 100 mcg or 50 mcg dose; Translations: [Moderna COVID-19 Vaccine] MARYURI BEGUM CLINICAL PROGRAM DIRECTOR [facility] 10-10-2020 COVID-19, mRNA, LNP- S, PF, 100 mcg or 50 mcg dose; Translations: [Moderna COVID-19 Vaccine] MARYURI BEGUM CLINICAL PROGRAM DIRECTOR [facility] 05-23-2020 influenza virus vaccine, unspecified formulation MARYURI BEGUM CLINICAL PROGRAM DIRECTOR [facility] [facility] Comment on above: Result Comment: brenda meier administered 05-23-2020 pneumococcal conjuga te vaccine, 13 valent MARYURI BEGUM CLINICAL PROGRAM DIRECTOR [facility] 05-20-2019 influenza virus vaccine, unspecified formulation MARYURI BEGUM CLINICAL PROGRAM DIRECTOR [facility] 06-15-2018 influenza virus vaccine, unspecified formulation MARYURI BEGUM CLINICAL PROGRAM DIRECTOR [facility] 06-15-2018 influenza, injectabl e, quadrivalent, preservative free Dr. Jluis Nichole DO Work Phone: [facility] 06-15-2018 influenza, seasonal, injectable Dr. Layne Doherty Work Phone: [facility] 07-21-[address] Layne Doherty Work Phone: [facility] 06-08-2017 influenza virus vaccine, unspecified formulation MARYURI ROOF CLINICAL PROGRAM DIRECTOR [facility] 06-09-2016 influenza virus vaccine, unspecified formulation MARYURI ROOF CLINICAL PROGRAM DIRECTOR [facility] 06-11-2015 influenza virus vaccine, unspecified formulation MARYURI ROOF CLINICAL PROGRAM DIRECTOR [facility] 05-21-2015 pneumococcal polysaccharide vaccine, 23 valent MARYURI ROOF CLINICAL PROGRAM DIRECTOR [facility] 06-12-2014 influenza virus vaccine, unspecified formulation MARYURI ROOF CLINICAL PROGRAM DIRECTOR [facility] 06-13-2013 influenza virus vaccine, unspecified formulation MARYURI ROOF CLINICAL PROGRAM DIRECTOR [facility] 08-21-2005 pneumococcal polysaccharide vaccine, 23 valent MARYURI BEGUM CLINICAL PROGRAM DIRECTOR [facility] Payers Date Payer Category Payer Self-pay [id number] 2016 Private Health Insurance [id number] 2016 Unknown [id number] 2005 Medicare [id number] 2005 Medicare [id number] 1940 Unknown [id number] 2.16.8 40.1.115633.3.579.2.627 1940 Unknown [id number] 2.16.8 40.1.719615.3.579.2.627 1940 Unknown [id number] 2.16.8 40.1.954519.3.579.2.627 1940 Unknown [id number] 2.16.8 40.1.267944.3.579.2.627 1940 Unknown [id number] 2.16.8 40.1.136002.3.579.2.627 1940 Unknown [id number] 2.16. 840.1.710577.3.579.2.62 1940 Unknown [id number] 2.16. 840.1.650039.3.579.2.62 1940 Unknown [id number] 2.16. 840.1.441240.3.579.2.627 1940 Unknown [id number] 2.16. 840.1.252019.3.579.2.627 1940 Unknown [id number] 2.16. 840.1.384597.3.579.2.627 1940 Unknown [id number] 2.16. 840.1.528993.3.579.2.62 1940 Unknown [id number] 2.16.8 40.1.823843.3.579.2.627 1940 Unknown [id number] 2.16.8 40.1.031146.3.579.2.627 1940 Unknown [id number] 2.16.8 40.1.619132.3.579.2.627 Unknown [id number] 2.16.8 40.1.894633.3.579.2.462 Unknown [id number] 2.16.8 40.1.118754.3.579.2.462 Unknown [id number] 2.16.8 40.1.832973.3.579.2.462 Unknown [id number] 2.16.8 40.1.751098.3.579.2.462 Unknown [id number] 2.16.8 40.1.935372.3.579.2.462 Unknown [id number] 2.16.8 40.1.122590.3.579.2.462 Unknown [id number] 2.16.8 40.1.168323.3.579.2.462 Unknown [id number] 2.16.8 40.1.108650.3.579.2.462 Unknown [id number] 2.16.8 40.1.702371.3.579.2.462 Unknown [id number] 2.16.8 40.1.581665.3.579.2.462 Unknown [id number] 2.16.8 40.1.973392.3.579.2.462 Unknown [id number] 2.16.8 40.1.942139.3.579.2.462 Unknown [id number] 2.16.8 40.1.587843.3.579.2.462 Unknown [id number] 2.16.8 40.1.345876.3.579.2.462 Unknown [id number] 2.16.8 40.1.063733.3.579.2.462 Unknown [id number] 2.16.8 40.1.381125.3.579.2.462 Unknown [id number] 2.16.8 40.1.524092.3.579.2.462 Social History Date Type Detail Facility Start: 06-20-2019 Never smoked t rakel (finding) [facility] Start: 1940 Sex Assigned At Male A [facility] Start: 03-09-2022 End: 04-01-2023 Tobacco smoking status NHIS Unknown if ever smoked [facility] Start: 03-22-2019 Non-smoker [facility] Start: 10-11-2022 End: 11-29-2024 Tobacco smoking status Ex-smoker (finding) [facility] Start: 06-09-2018 None [facility] Start: 06-09-2018 Spouse/ Signif icant Other [facility] End: 09-20-1993 History of tobacco use Current smoker [facility] End: 09-20-1993 History of tobacco use Cigar Smoker [facility] Start: 09-12-2024 Tobacco use and exposure Smokeless tobacco non-user [facility] Start: 05-13-2018 End: 09-12-2024 History of Social function [facility] Start: 05-13-2018 End: 09-12-2024 Tobacco use panel [facility] PHQ2 Score 0 [facility] Start: 1940 Sex assigned at Not on file [facility] Sexual Orientation [facility] Start: 08-14-2019 Sex Male (finding) [facility] Start: 07-12-2025 Not applicable (qualifier value) [facility] Medical Equipment Procedure Code Equipment Code Equipment Original Text Equipment Identifier Dates See Instructions , Freestyle lite test strips. use 1 strip daily. Use as directed, # 100 EA, 2 Refill(s), Pharmacy: [id number], Diabetes, 175, cm, 12/15/21 8:54:00 EDT, Height, 83.8 Start: 03-10-2022 See Instructions , Freestyle lite test strips. use 1 strip daily. Use as directed, # 100 EA, 2 Refill(s), Pharmacy: [facility], Diabetes, 175, cm, 12/15/21 8:54:00 EDT, Height, 83.8 Start: 03-10-2022 See Instructions , Freestyle lite test strips. use 1 strip daily. Use as directed, # 100 EA, 2 Refill(s), Pharmacy: [facility], Diabetes, 175, cm, 12/15/21 8:54:00 EDT, Height, 83.8 Start: 03-10-2022 See Instructions , Freestyle lite test strips. use 1 strip daily. Use as directed, # 100 EA, 2 Refill(s), [id number], Diabetes, 175, cm, 12/15/21 8:54:00 EDT, Height, 83.8 Start: 03-10-2022 See Instructions , Freestyle lite test strips. use 1 strip daily. Use as directed, # 100 EA, 2 Refill(s), [id number], Diabetes, 175, cm, 12/15/21 8:54:00 EDT, Height, 83.8 Start: 03-10-2022 [place] Thk1.65mm P tfe 4x.5in Cardiovascular Sterile - [id number] Start: 05-13-2018 Functional Status Date Assessment Result Facility 07-12-2025 Functional Status Minimum assistance [facility] 07-12-2025 Functional Status [facility] 07-12-2025 [facility] 06-14-2024 Functional Status Minimum assistance [facility] 06-14-2024 Functional Status ID band on, Call device within reach, Bed in low position, Wheels locked, Upper/Half-Length side-rails up, Visitor at bedside, Safety level maintained [facility] 12-30-2021 Functional Status 1 flight [facility] Mental Status Date Assessment Result Facility 07-12-2025 Mental Status Orientation Oriented x 4 [facility] 07-12-2025 Mental Status [facility] 06-14-2024 Mental Status Orientation Oriented x 4 [facility] 06-14-2024 Mental Status [facility] Clinical Notes 04-20-2018 to 07-12-2025 Note Date [...] upper back pain Trouble controlling your muscles [phone] [employer] [address] [place] [address]. All rights reserved. This information is not intended as a substitute for professional medical care. Always follow your healthcare professional's instructions. Follow Up Care 07/12/2025 09:18:39 With:Go to emergency room if symptoms worsen Address:Unknown When:2-4 days With:JLUIS NICHOLE DO Address: [address] [facility] [place] [phone] When:2-4 days [facility] 07-12-2025 Note Discharge Instructions Thank you for allowing [place] to assist you with your healthcare needs. The following is important discharge information regarding your hospital visit. Diagnosis from Today's Visit Hyperkalemia What to Do Next Instructions from Your Care Team Potassium today was 5.2 on check here. Recommended to resume home Lokelma and to call delivery aide for further outpatient management and following of potassium levels. Return to the emergency department for any acute concerns. No qualifying data available. Post Acute Orders No qualifying data available. You Need to Schedule the Following Appointments Follow Up with Go to emergency room if symptoms worsen When:Within 2-4 days Follow Up with JLUIS NICHOLE DO When:Within 2-4 days Where:[address] [place] [address] [place] [address] [phone] Allergies NKA Medications Please ask your primary [...] upper back pain Trouble controlling your muscles [phone] [employer] [address] [place] [address], [place] [address]. All rights reserved. This information is not intended as a substitute for professional medical care. Always follow your healthcare professional's instructions. Additional Information VACCINATE! IT SAVES LIVES! Members of the community who have not yet received the COVID-19 vaccine and would like to receive it can visit one of [facility] vaccine clinics. There are many vaccine clinic locations within the [facility]. For locations and available times, please visit www.gettheshot.coronavirus.[place]. gov/. It is important to note that some COVID mobile vaccine clinics are held outdoors and may be canceled in rainy or stormy conditions. To learn more about pediatric vaccinations (ages 5-11), we invite you to visit the [employer] [facility] webpage. https://www.akMetaplaces.org/p ages/8361-Ogauf-Qmqvnpwiwlg-Freq fscsxy-Pqvyi-Uuaeiyjgw.html To learn more about the COVID-19 vaccine, we invite you to visit the CDC website for a list of frequently asked questions. https://www.cdc.gov/coronavirus/ 2019-ncov/vaccines/faq.html [facility] Patient Portal Access Instructions: Stay connected with your healthcare team and access your personal medical information anytime with the [facility] Patient Portal. If you would like a full copy of your medical records please contact the [facility] Medical Records Department Wednesday through Wednesday between 8a.m. and 4:30p.m. Please follow the directions below to access the portal: 1.Access the email account you provided upon registration to the hospital.2.Look for an invitation email from [facility].3.Open the email and access the invitation link: Accept Invitation to [facility]4.Fill in the required liriano to create your account. To access your account, visit [email or web address] or scan the QR code above. Click [...] you will allow to register on the [facility] Patient Portal for access to your information. You can also access the [facility] Patient Portal on the [employer] josee. Simply click on "Health Records" under "Health Data" and then click on the Lexdir logo. HOW TO SAFELY DISPOSE OF PRESCRIPTION [...] Call your local pharmacy or go to http://iSpot.tv.Ujogo/[email or web address] to find one close to you.3.Make use of household items: Use cat litter or old coffee grounds to dispose medications if other options are not available. Mix your drugs with these household products, seal them in an airtight container and throw it into the garbage. Call [facility]: [phone] to be sure your drugs can be [...] aware that I should contact my doctor. Patient/Clay Carman Signature: Date/Time: Relationship to Patient: Witness Name/Signature: Date/Time: [facility] 07-06-2025 Note . MICRO - Microbiology [...] Locations *1: This test was performed at: [facility], [address] [place] [address], [facility] , [facility] 07-05-2025 Note Exam Date Time Procedure Performing Provider Status 07/05/25 9:[address] Head or Brain w/o Contrast LAYNE NAYAK MD; Auth (Verified) [id number] ORIGINAL EXAMINATION: CT HEAD TECHNIQUE: Axial CT [...] 4:57:02 PM Ordering Provider: JLUIS NICHOLE RP [facility]10-15-2025 Note* Exam Date Time Procedure Performing Provider Status 07/04/25 4:05 PM XR Humerus Minimum 2 Views Right LILIANA HENAO DO; Auth (Verified) [id number] ORIGINAL EXAMINATION: TWO XRAY VIEWS OF THE [...] 5:10:20 PM Ordering Provider: JLUIS NICHOLE RP [facility]10-15-2025 Note* Exam Date Time Procedure Performing Provider Status 07/04/25 4:02 PM XR Chest 2 Views JAIRO ROBERTSON DO; Auth (Verified) [id number] ORIGINAL EXAMINATION: TWO XRAY VIEWS OF THE [...] 4:38:56 PM Ordering Provider: JLUIS NICHOLE RP [facility]09-22-2025 [facility] [address] [place] [address], [address] [place] [address] OFFICE VISIT Date of Service: 06/11/25 MR#: [id number] Acct: [id number] Name: EKATERINA RANDHAWA Rep #: [id number] : 1940 Provider: Dr. Cora Doss MD Age/Sex: 85/M Location: [facility].BN Status: Signed HPI HPI Chief Complaint: Details: [...] this began during his hospitalization for his PR/CABG and may have been procedure related). 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 Essential hypertension Atherosclerotic heart disease of [place] coronary artery without angina pectoris Postoperative atrial [...] rarely substance use type: does not use arelis/orthodox: [place] seatbelt use: always Clinical Quality Measures Falls Risk Screening/Assistive Devices Have you fallen in the past year?: Yes Coding Level of Care Code Off vis,est,level 4 Diagnoses Parkinsonism, unspecified Parkinsonism type G20 Parkinsonism type: unspecified Mild cognitive impairment G31.84 Polyneuropathy G62.9 Restless legs syndrome G25.81 06/13/25 1511 ur MD> Date _ Braxton Doss MD Cosigner Signature: Date (if applicable) CC: ~ [facility]09-22-2025 Progress note Author Braxton Doss [facility] Note Date/Time June 11, 2025 2:41pm [facility] [address] [place] [address], [place] [address] OFFICE VISIT Date of Service: 06/11/25 MR#: [id number] Acct: [id number] Name: EKATERINA RANDHAWA Rep #: [id number] : 1940 Provider: Dr. Cora Doss MD Age/Sex: 85/M Location: [facility].BN Status: Signed HPI [facility] Chief Complaint: Details: Interim History: [...] this began during his hospitalization for his PR/CABG and may have been procedure related). 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 Essential hypertension Atherosclerotic heart disease of [place] coronary artery without angina pectoris Postoperative atrial [...] rarely substance use type: does not use arelis/orthodox: [place] seatbelt use: always Clinical Quality Measures Falls Risk Screening/Assistive Devices Have you fallen in the past year?: Yes Coding Level of Care Code Off vis,est,level 4 Diagnoses Parkinsonism, unspecified Parkinsonism type G20 Parkinsonism type: unspecified Mild cognitive impairment G31.84 Polyneuropathy G62.9 Restless legs syndrome G25.81 06/13/25 1511 <Electronically signed by Braxton light MD> Date _ Braxton Simeonigner Signature: Date (if applicable) CC: ~ [facility] Work Phone: 1(980) 831-905208-08-2025 Radiology Diagnostic study note [facility] Imaging Services [address] [place], [place] [address] Kidney and Bladder MR#: [id number] Acct: [id number] Name: EKATERINA RANDHAWA Rep #: [id number] : 1940 M 85 From: Joesph Leon MD PCP: Dr. Jluis Nichole DO Status: REG CLI Study:Kidney and Bladder Date of Exam: 0 04/26/25 Exam# [id number] Ordering Dr: Seth Bass DO PROCEDURE: KIDNEY AND BLADDER 04/26/2025 REASON FOR EXAM: HYPERKALEMIA TECHNIQUE: KIDNEY AND BLADDER COMPARISON: None FINDINGS: Kidneys: Normal renal sizes, parenchymal thicknesses, and echotextures. [place]: No evidence of hydronephrosis. Cysts or Masses: [...] Bladder IMPRESSION: NORMAL RENAL ULTRASOUND. Reading Location: [id number] CC: Dr. Porsha Bass DO; Dr. Jluis Nichole DO ~ Director Of Global Sales: Signed [facility]07-09-2025 Evaluation note* Diagnosis Onset Date Resolution Status Admit Date Restless legs syndrome acute Ju ly 2024 9:39am Mild cognitive impairment chronic March 28, 2025 9:39am Parkinsonism chronic March 28 9:39am Polyneuropathy inactive March 28, 2025 9:39am Restless legs syndrome acute Se ptember 2024 1:49pm Mild cognitive impairment chronic June 11, 2025 1:49pm Parkinsonism chronic June 112024 1:49pm Polyneuropathy inactive June 11, 2025 1:49pm [facility] [employer] [facility] Work Phone: 1(750) 582-653206-05-2025 Hospital Discharge instructions Patient Education 02/22/2025 18:52:22 [...] for life. Yourdoctor can tell you more. 8301-2725 [employer] [address] [place] [address], [place] [address]. All rights reserved. This information is not [...] vessels (vasculitis) Viral or bacterial infection Some xaxx-azv-ttmwklq (OTC) pain medicines can cause renal failure [...] help you quit. For more information, visit: DiabetOmicsfree.gov/sites/default/files/pdf/ykkswbru-svw-wto-accessible.pdf owww.smokefree.gov owww.cancer.org/healthy/stayawayfromtobacco/guidetoquittingsmoking/ Talk with your healthcare provider [...] one of the following for more information: [place] [employer] Kidney Patients, www.aakp.org National Kidney Foundation, www.kidney.org [place] [employer], www.kidneyfund.org National Kidney Disease Education [...] or you aren t able to urinate 6150-2431 [employer] [address] [place] [address], [place] [address]. All rights reserved. This information is not [...] if you are taking any medicine, including puwu-tjy-ltbkals NSAIDs. Be sure your healthcare provider knows about all medicines, herbs, vitamins, and supplements you are taking. This includes medicines that don't need a prescription and any illicit drugs you may use. 7160-3295 [employer] [address] [place] [address]. All rights reserved. This information is not intended as a substitute for professional medical care. Always follow yourhealthcare professional's instructions. Follow Up Care 02/22/2025 17:19:54 With:Your delivery aide Address:Unknown When:2-4 days Comments:Schedule appointment as soon as possibleReturn to ED if symptoms worsenCall in the morning for follow-up laboratory studies can return to the ER for any developing symptoms With:JLUIS NICHOLE Address: [address] [place] [phone] Business (1) When:2-4 days [facility] 06-05-2025 Emergency department Discharge summary Discharge Instructions Thank you for allowing [place] to assist you with your healthcare needs. The following is importantdischarge information regarding your hospital visit. What to Do Next Instructions from Your Care Team No qualifying data available. Post Acute Orders No qualifying data available. You Need to Schedule the Following Appointments Follow Up with Your delivery aide When:Within 2-4 days Additional Information: Schedule appointment as soon as possible Return to ED if symptoms worsen Call in the morning for follow-up laboratory studies can return to the ER for any developing symptoms Follow Up with JLUIS NICHOLE When:Within 2-4 days Where:[address] [place] [phone] Business (1) Allergies NKA Medications Please ask [...] for life. Yourdoctor can tell you more. 2340-3194 [employer] [address] [place] [address], [place] [id number]. All rights reserved. This information is not [...] vessels (vasculitis) Viral or bacterial infection Some ehjv-brq-rpgnhse (OTC) pain medicines can cause renal failure [...] help you quit. For more information, visit: DiabetOmicsfrAmplion Clinical Communications.gov/sites/default/files/pdf/euuzfjxt-vsk-jwq-accessible.pdf owww.smokefree.gov owww.cancer.org/healthy/stayawayfromtobacco/guidetoquittingsmoking/ Talk with your healthcare provider [...] one of the following for more information: [place] [employer] Kidney Patients, www.aakp.org National Kidney Foundation, www.kidney.org [place] [employer]ney [employer], www.kidneyfund.org National Kidney Disease Education [...] or you aren t able to urinate 6826-2405 [employer] [address] [place] [address]. All rights reserved. This information is not [...] if you are taking any medicine, including yjdw-ody-rrhedrf NSAIDs. Be sure your healthcare provider knows about all medicines, herbs, vitamins, and supplements you are taking. This includes medicines that don't need a prescription and any illicit drugs you may use. 4352-9149 [employer] [address] [place] [address]. All rights reserved. This information is not intended as a substitute for professional medical care. Always follow yourhealthcare professional's instructions. Additional Information VACCINATE! IT SAVES LIVES! Members of the community who have not yet received the COVID-19 vaccine and would like to receive it can visit one of [facility] vaccine clinics. There are many vaccine clinic locations within the [facility]. For locations and available times, please visit www.gettheshot.coronavirus.[place].gov/. It is important to note that some COVID mobile vaccine clinics are held outdoors and may be canceled in rainy or stormy conditions. To learn more about pediatric vaccinations (ages 5-11), we invite you to visit the [employer] [facility] webpage. https://www.akronchildrens.org/pages/9394-Vlbrn-Megkdyrwzoa-Pvyegvjlqx-Seigw-Ihk stions.htmlTo learn more about the COVID-19 vaccine, we invite you to visit the CDC website for a list of frequently asked questions. https://www.cdc.gov/coronavirus/2019-ncov/vaccines/faq.html [place] [employer] [facility] Patient Portal Access Instructions: Stay connected with your healthcare team and access your personal medical information anytime with the [facility] Patient Portal. If you would like a full copy of your medical records please contact the [facility] Medical Records Department Wednesday through Wednesday between 8a.m. and 4:30p.m. Please follow the directions below to access the portal: 1.Access the email account you provided upon registration to the [facility].2.Look for an invitation email from [facility].3.Open the email and access the invitation link: Accept Invitation to [place] [employer] [facility]4.Fill in the required liriano to create your account. Sign into [email or web address] with your username and password that you [...] you will allow to register on the [facility] Patient Portal for access to your information. You can also access the [facility] Patient Portal on the mobile [employer] josee. Simply click on "Health Records" under "HealthData" and then click on the Lex[employer] logo. HOW TO SAFELY DISPOSE OF PRESCRIPTION [...] Call your local pharmacy or go to http://bit.Ujogo/8R5Yc3h to find one close to you.3.Make use of household items: Use cat litter or old coffee grounds to dispose medications if other options arenot available. Mix your drugs with these household products, seal them in an airtight container andthrow it into the garbage. Call [facility]: [phone] to be sure your drugs can be [...] aware that I should contact my doctor. Patient/Clay Carman Signature: Date/Time: Relationship to Patient: Witness Name/Signature: Date/Time: [facility]06-05-2025 Note Discharge Instructions Thank you for allowing [facility] to assist you with your healthcare needs. The following is importantdischarge information regarding your hospital visit. What to Do Next Instructions from Your Care Team No qualifying data available. Post Acute Orders No qualifying data available. You Need to Schedule the Following Appointments Follow Up with Your delivery aide When:Within 2-4 days Additional Information: Schedule appointment as soon as possible Return to ED if symptoms worsen Call in the morning for follow-up laboratory studies can return to the ER for any developing symptoms Follow Up with JLUIS NICHOLE When:Within 2-4 days Where:0 [facility] [place] [address]- [phone] Business (1) Allergies NKA Medications Please ask [...] for life. Yourdoctor can tell you more. [phone] [employer] [address] [place] [address], [place] [address]. All rights reserved. This information is not [...] vessels (vasculitis) Viral or bacterial infection Some vtiy-knn-grnhrzx (OTC) pain medicines can cause renal failure [...] help you quit. For more information, visit: osmokefree.gov/sites/default/files/pdf/kbsdfwxl-myx-act-accessible.pdf owww.smokefree.gov owww.cancer.org/healthy/stayawayfromtobacco/guidetoquittingsmoking/ Talk with your healthcare provider [...] one of the following for more information: [place] [employer] Patients, www.aakp.org National Kidney Foundation, www.kidney.org [place] [employer], www.kidneyfund.org National Kidney Disease Education [...] or you aren t able to urinate 3652-2733 [employer] [address] [place] [address]. All rights reserved. This information is not [...] as systemic lupus erythematosus, sickle cell, or [place] disease How is this test done? The [...] if you are taking any medicine, including sgey-lvv-pzujteb NSAIDs. Be sure your healthcare provider knows about all medicines, herbs, vitamins, and supplements you are taking. This includes medicines that don't need a prescription and any illicit drugs you may use. 3669-3975 [employer] [address] [place] [address], [place] [address]. All rights reserved. This information is not intended as a substitute for professional medical care. Always follow yourhealthcare professional's instructions. Additional Information VACCINATE! IT SAVES LIVES! Members of the community who have not yet received the COVID-19 vaccine and would like to receive it can visit one of [facility] vaccine clinics. There are many vaccine clinic locations within the [facility]. For locations and available times, please visit www.gettheshot.coronavirus.[place].gov/. It is important to note that some COVID mobile vaccine clinics are held outdoors and may be canceled in rainy or stormy conditions. To learn more about pediatric vaccinations (ages 5-11), we invite you to visit the [facility] webpage. https://www.[facility].org/pages/9003-Lfwaa-Kdpysvfbodo-Brtzywjhko-Udkmn-Ovw stions.htmlTo learn more about the COVID-19 vaccine, we invite you to visit the CDC website for a list of frequently asked questions. https://www.cdc.gov/coronavirus/2019-ncov/vaccines/faq.html [facility] Patient Portal Access Instructions: Stay connected with your healthcare team and access your personal medical information anytime with the [facility] Patient Portal. If you would like a full copy of your medical records please contact the [facility] Medical Records Department Wednesday through Wednesday between 8a.m. and 4:30p.m. Please follow the directions below to access the portal: 1.Access the email account you provided upon registration to the [facility].2.Look for an invitation email from [facility].3.Open the email and access the invitation link: Accept Invitation to [facility]4.Fill in the required liriano to create your [...] you will allow to register on the [facility] Patient Portal for access to your information. You can also access the [facility] Patient Portal on the mobile melting [employer] josee. Simply click on "Health Records" under "[employer]" and then click on the Lexdir logo. HOW TO SAFELY DISPOSE OF PRESCRIPTION [...] Call your local pharmacy or go to http://iSpot.tv.Ujogo/1V8En0l to find one close to you.3.Make use of household items: Use cat litter or old coffee grounds to dispose medications if other options arenot available. Mix your drugs with these household products, seal them in an airtight container andthrow it into the garbage. Call [facility]: [phone] to be sure your drugs can be [...] aware that I should contact my doctor. Patient/Clay Carman Signature: Date/Time: Relationship to Patient: Witness Name/Signature: Date/Time: [facility]06-05-2025 Note* Exam Date Time Procedure Performing Provider Status 02/22/25 5:31 PM EKG [ED AOH] - CV DAVID LAST MD; A [facility] (Verified) ECG Final Report Sinus rhythm RBBB and LAFB SEE DICTATION Electronic Signature: DAVID LAST MD 02/22/2025 17:49:20 [facility]05-30-2025 Evaluation note* Diagnosis Onset Date Resolution [...] 9:39am Polyneuropathy inactive March 28, 2025 9:39am [facility] Work Phone: 1(749) 632-662703-12-2025 Evaluation note* Diagnosis Onset Date Resolution Status Admit Date Restless legs syndrome acute [facility] 2024 9:45am Mild cognitive impairment [...] 9:39am Polyneuropathy inactive March 28, 2025 9:39am [facility] Work Phone: 1(819) 790-309602-27-2025 Evaluation note* Diagnosis Onset Date Resolution Status Admit Date Contusion of right foot acute F ebruary 2024 10:14am Restless legs syndrome acute [facility] 2024 9:45am Mild cognitive impairment chronic November 29, 2024 9:45am Parkinsonism chronic November 29, 2024 9:45am Polyneuropathy inactive November 9:45am [facility] Work Phone: 1(711) 378-824002-27-2025 Evaluation note* Diagnosis Onset Date Resolution Status Admit Date Contusion of right foot acute F ebruary 2024 10:14am Restless legs syndrome acute [facility] 2024 9:45am Mild cognitive impairment [...] April, chronic February 16, 2025 3 :33pm [facility] Work Phone: 1(989) 257-926012-24-2024 NoteHNO ID: [id number] Author: TONEY GUTIERREZ MD Service: ? Author [...] which included preparing to see the patient, smel-yx-seyh patient care, completing clinical documentation, obtaining and/or reviewing separately obtained history, counseling and educating the patient/family/caregiver, ordering medications, tests, or procedures, independently interpreting results (not separately reported), and communicating results to the patient/family/caregiver. Electronically Signed: Toney Gutierrez MD September 12, 2024 10:42 [facility]12-24-2024 History of Present illness Narrative* Toney Gutierrez [...] which included preparing to see the patient, skkz-eg-jmwu patient care, completing clinical documentation, obtaining and/or reviewing separately obtained history, counseling and educating the patient/family/caregiver, ordering medications, xenia ts, or procedures, independently interpreting results (not separately reported), and communicating results to the patient/family/caregiver. Electronically Signed: Toney Gutierrez MD September 12, 2024 10:42 AM [facility] Hospital Discharge instructions Patient Education 06/14/2024 11:49:32 [...] some information about medicine: You may use vurf-ihh-alvxmls medicine such as acetaminophen or ibuprofen to [...] re-open Bleeding not controlled by direct pressure 1222-3858 [employer] [address] [place] [address]. All rights reserved. This information is not intended as a substitute for professional medical care. Always follow [facility] professional's instructions. 06/14/2024 11:49:04 Wound Check (No [...] oRed streaks around the wound oDraining pus 5341-1714 [employer] [address] [place] [address]. All rights reserved. This information is not intended as a substitute for professional medical care. Always follow yourhealthcare professional's instructions. Follow Up Care 06/14/2024 11:11:49 With:Go to emergency room if symptoms worsen Address: When:3-7 days With:JLUIS NICHOLE DO Address: [address] [place] [address] [facility] [place], [place] [phone]- [phone] When:2-4 days [facility] 09-25-2024 Note Discharge Instructions Thank you for allowing [place] to assist you with your healthcare needs. [...] JLUIS NICHOLE DO When:Within 2-4 days Where:0 [facility] [place] [address]- [phone] Allergies NKA Medications Please ask your primary [...] some information about medicine: You may use lovb-mza-nthjfbz medicine such as acetaminophen or ibuprofen to [...] re-open Bleeding not controlled by direct pressure 2645-5604 [employer] [address] [place] [address], [place] [address]. All rights reserved. This information is not [...] oRed streaks around the wound oDraining pus 2746-9718 [employer] [address] [place] [address]. All rights reserved. This information is not intended as a substitute for professional medical care. Always follow yourhealthcare professional's instructions. Additional Information VACCINATE! IT SAVES LIVES! Members of the community who have not yet received the COVID-19 vaccine and would like to receive it can visit one of [facility] vaccine clinics. There are many vaccine clinic locations within the [facility]. For locations and available times, please visit www.gettheshot.coronavirus.[place].gov/. It is important to note that some COVID mobile vaccine clinics are held outdoors and may be canceled in rainy or stormy conditions. To learn more about pediatric vaccinations (ages 5-11), we invite you to visit the [facility] webpage. https://www.[facility].org/pages/2574-Hztlo-Hfgvhatjber-Mvvbrldogh-Cejge-Azn stions.htmlTo learn more about the COVID-19 vaccine, we invite you to visit the CDC website for a list of frequently asked questions. https://www.cdc.gov/coronavirus/2019-ncov/vaccines/faq.html [facility] Patient Portal Access Instructions: Stay connected with your healthcare team and access your personal medical information anytime with the [place] [facility] [facility] Patient Portal. If you would like a full copy of your medical records please contact the [facility] Medical Records Department Wednesday through Wednesday between 8a.m. and 4:30p.m. Please follow the directions below to access the portal: 1.Access the email account you provided upon registration to the hospital.2.Look for an invitation email from [facility].3.Open the email and access the invitation link: Accept Invitation to [facility]4.Fill in the required liriano to create your account. Sign into www.[facility] [employer] with your username and password that you [...] you will allow to register on the [place] [facility] Patient Portal for access to your information. You can also access the [facility] Patient Portal on the Stublisher. Simply click on "Health Records" under "[employer]" and then click on the [facility] logo. [...] Call your local pharmacy or go to http://iSpot.tv.Ujogo/8B7Kq1r to find one close to you.3.Make use of household items: Use cat litter or old coffee grounds to dispose medications if other options arenot available. Mix your drugs with these household products, seal them in an airtight container andthrow it into the garbage. Call [facility]: [phone] to be sure your drugs can be [...] aware that I should contact my doctor. 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, chronic Mild cognitive impairment ac [place] Polyneuropathy acute Parkinson's disease noneacti [facility] Work Phone: Evaluation + Plan note Future Appointments Appointment Date:12/15/2021 09:30:00 AM Scheduled Provider:LAYNE DOHERTY DO Location:[facility] Appointment Type:PC OV Future Scheduled Tests Laboratory* Basic Metabolic Panel 05/08/21 * Vancomycin Level Trough - Panel 05/08/21 [facility] Evaluation + Plan note Future Appointments Appointment Date:01/20/2022 10:00:00 AM Scheduled Provider: Location:[facility] Appointment Type:PT Treatment - [place] Appointment Date:01/22/2022 10:00:00 AM Scheduled Provider: Location:[facility] Appointment Type:PT Treatment - [place] Appointment Date:01/27/2022 10:00:00 AM Scheduled Provider: Location:[facility] Appointment Type:PT Treatment - [place] Appointment Date:01/30/2022 10:00:00 AM Scheduled Provider: Location:[facility] Appointment Type:PT Treatment - [place] Appointment Date:06/18/2022 09:00:00 AM Scheduled Provider:LAYNE DOHERTY DO Location:[facility] Appointment Type:PC Wellness Medicare with Labs [facility] Evaluation + Plan note Future Appointments Appointment Date:04/16/2022 07:30:00 AM Scheduled Provider:LAYNE DOHERTY DO Location:[facility] Appointment Type:PC OV Appointment Date:06/18/2022 09:00:00 AM Scheduled Provider:LAYNE DOHERTY DO Location:[facility] Appointment Type:PC Wellness Medicare with Labs [facility] Evaluation + Plan note Future Appointments Appointment Date:06/18/2022 09:00:00 AM Scheduled Provider:LAYNE DOHERTY DO Location:[facility] Appointment Type:PC Wellness Medicare with Labs Appointment Date:08/18/2022 07:30:00 AM Scheduled Provider:LAYNE DOHERTY DO Location:[facility] Appointment Type:PC OV [facility] Evaluation + Plan note Future Appointments Appointment Date:09/21/2022 09:00:00 AM Scheduled Provider:LAYNE DOHERTY DO Location: [facility] Appointment Type:PC OV Appointment Date:10/07/2022 09:00:00 AM Scheduled Provider:JLUIS NICHOLE DO Location:[facility] Appointment Type:PC [facility] Evaluation + Plan note Future Appointments Appointment Date:11/09/2022 02:00:00 PM Scheduled Provider: Location:[facility] Appointment Type:VL AOH - Venous US/Doppler Both Legs (fo Appointment Date:06/22/2023 09:00:00 AM Scheduled Provider:JLUIS NICHOLE DO Location:[facility] Appointment Type:PC Wellness Medicare Future Scheduled Tests Laboratory* Stool for Occult Blood (Lab) 10/11/22 [facility] Evaluation + Plan note Future Appointments Appointment Date:07/18/2024 09:00:00 AM Scheduled Provider:JLUIS NICHOLE DO Location:[facility] Appointment Type:PC Wellness Medicare [facility] Evaluation + Plan note Future Appointments Appointment Date:06/21/2024 09:00:00 AM Scheduled Provider:MARTIR WEBB Location:[facility] Appointment Type:PC OV ED Follow Up Appointment Date:07/18/2024 09:00:00 AM Scheduled Provider:JLUIS NICHOLE DO Location:[facility] Appointment Type:PC Wellness Medicare [facility] Evaluation + Plan note Future Appointments Appointment Date:08/11/2024 10:00:00 AM Scheduled Provider:JLUIS NICHOLE DO Location:[facility] Appointment Type:PC Wellness Medicare [facility] Evaluation + Plan note Future Appointments Appointment Date:02/08/2025 10:00:00 AM Scheduled Provider:JLUIS NICHOLE DO Location:[facility] Appointment Type:PC OV [facility] Evaluation + Plan note Future Appointments Appointment Date:05/23/2025 10:00:00 AM Scheduled Provider:JLUIS NICHOLE DO Location:[facility] Appointment Type:[facility] Future Scheduled Tests Laboratory* Basic Metabolic Panel 02/22/25 * N-Terminal proBNP 02/21/25 [facility] Evaluation + Plan note Future Appointments Appointment Date:07/05/2025 10:00:00 AM Scheduled Provider: Location:[facility] Appointment Type:CT Head or Brain w/o Contrast Appointment Date:09/05/2025 02:00:00 PM Scheduled Provider:JLUIS NICHOLE DO Location:[facility] Appointment Type:PC Wellness Medicare Future Scheduled Tests Radiology* CT Head or Brain w/o Contrast 07/05/25 * XR Chest 2 Views (PA & Lateral) 07/04/25 [facility] Evaluation + Plan note Future Appointments Appointment Date:09/05/2025 02:00:00 PM Scheduled Provider:JLUIS NICHOLE DO Location:[facility] Appointment Type:PC Wellness Medicare Future Scheduled Tests Laboratory* Potassium Level 07/08/25 Radiology* XR Chest 2 Views (PA & Lateral) 07/04/25 [facility] Evaluation note* Diagnosis Onset Date Resolution Status Atherosclerotic heart diseas e of [place] coronary artery without angina pectoris chronic Essential hypertension chron ic Hyperlipidemia chronic Ischemic cardiomyopathy 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 Paroxysmal atrial fibrillation [facility] Work Phone: Evaluation note* Diagnosis Onset Date Resolution Status Atherosclerotic heart diseas e of [place] coronary artery without angina pectoris chronic Essential hypertension chron ic Hyperlipidemia chronic Ischemic cardiomyopathy 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 Paroxysmal atrial fibrillation chronic Mild cognitive impairment [place] Polyneuropathy acute Parkinson's disease noneacti ve [facility] Work Phone: Evaluation note* Diagnosis Thrombocytopenia (HCC)- Primary Thrombocytopenia, unspecified Anemia, unspecified type documented in this [facility] Narrative No data available for this section [facility] Hospital Discharge instructions No data available for this section [facility] Progress note No data available for this section [facility] Reason for referral (narrative)No reason for referral information [facility]WFult[facility] Work Phone: Summary Purpose Family History No Family History Records Found Relationship Condition Age at Onset Recorded Date/T gwyn father Myocardial infarction Unknown Advance Directives No Advanced Directives Records Found Advance Directive Response Recorded Date/ Time Living Will Yes March 22, 2019 1 0:10am Power of Dross Skimmer Yes March 22, 2019 10:10am Advance Directive Response Recorded Date/ Time Living Will Yes March 22, 2019 1 0:10am Do you have a Healthcare Power of Dross Skimmer? Yes March 22, 2019 10:10am Chief Complaint and Reason for Visit Chief Complaint ATAXIA 6 M FU Reason for Visit Atherosclerotic hear t disease of [place] coronary artery without angina pectoris Essential hypertension Hyperlipidemia Ischemic cardiomyopathy Paroxysmal atrial fibrillation Chief Complaint 6 m fu Parkinson's disease EORDER Reason for Visit Atherosclerotic hear t disease of [place] coronary artery without angina pectoris Essential hypertension Hyperlipidemia Ischemic cardiomyopathy Paroxysmal atrial fibrillation Mild cognitive impairment Polyneuropathy Parkinson's disease Chief Complaint 6 m fu Parkinson's disease EORDER PARKINSONS Reason for Visit Atherosclerotic hear t disease of [place] coronary artery without angina pectoris Essential hypertension [...] section and content) DATE CREATED AUTHOR 06/01/2018 [facility] DATE CREATED AUTHOR AUTHOR'S ORGANIZ ATION 02/22/2024 [facility] ([place]) DATE CREATED AUTHOR AUTHOR'S ORGANIZ ATION 06/09/2025 [facility] DATE CREATED AUTHOR AUTHOR'S ORGANIZ ATION 07/16/2025 [facility] DATE CREATED AUTHOR AUTHOR'S ORGANIZ ATION 07/27/2025 [facility] DATE CREATED AUTHOR AUTHOR'S ORGANIZ ATION 08/03/2025 [facility] Care Team (unrecognized sect ion and content) Team Status: Active Member Role Status Dates Dr. Layne Doherty DO Family Provider Active Dr. Layne Doherty DO Primary Care Provider Active Team Status: Inactive Member Role Status Dates Dr. Layne Doherty DO Primary Care Provider, Referrin g Provider Active Maryuri Begum FUEL EFFICIENT AIRCRAFT DESIGNER, FUEL EFFICIENT AIRCRAFT DESIGNER-C Attending Provider Active Team Status: Inactive Member [...] Doherty DO Referring Provider Active Maryuri Begum FUEL EFFICIENT AIRCRAFT DESIGNER, FUEL EFFICIENT AIRCRAFT DESIGNER-C Attending Provider Active Dr. Jluis Nichole DO Primary Care Provider Active Team Status: Inactive Member Role Status Dates Dr. Layne Doherty DO Referring Provider Active Dr. Braxton Doss MD Attending Provider Active Dr. Jluis Nichole DO Primary Care Provider Active Team Status: Inactive Member Role Status Dates Dr. Jluis Nichole DO Primary Care Provider Active Dr. Braxton Doss MD Attending Provider Active Manager Inpatient Relationship Specialty Start Date End Date Jluis Nichole DO [address] [place] [address] PCP - General Family Medicine 09/12/24 Adonis Joaquin MD [address] [place] [address] Primary Staff Physician Cardiology 12/06/18 Team Status: [...] 2025 End: February 08, 2025 Maryuri Begum FUEL EFFICIENT AIRCRAFT DESIGNER, FUEL EFFICIENT AIRCRAFT DESIGNER-C Attending Provider Active S tart: February 08, 2025 End: February 08, 2025 Maryuri Begum FUEL EFFICIENT AIRCRAFT DESIGNER, FUEL EFFICIENT AIRCRAFT DESIGNER-C Referring Provider Active S tart: February 08, [...] 2025 End: February 08, 2025 Maryuri Begum FUEL EFFICIENT AIRCRAFT DESIGNER, FUEL EFFICIENT AIRCRAFT DESIGNER-C Attending Provider Active S tart: February 08, 2025 End: February 08, 2025 Maryuri Begum FUEL EFFICIENT AIRCRAFT DESIGNER, FUEL EFFICIENT AIRCRAFT DESIGNER-C Referring Provider Active S tart: February 08, [...] 2025 End: February 08, 2025 Maryuri Begum FUEL EFFICIENT AIRCRAFT DESIGNER, FUEL EFFICIENT AIRCRAFT DESIGNER-C Attending Provider Active S tart: February 08, 2025 End: February 08, 2025 Maryuri Begum FUEL EFFICIENT AIRCRAFT DESIGNER, FUEL EFFICIENT AIRCRAFT DESIGNER-C Referring Provider Active S tart: February 08, [...] 2025 End: April 10, 2025 Sharon Parsons FUEL EFFICIENT AIRCRAFT DESIGNER-C Attending Provider Active S tart: April 10, 2025 End: April 10, 2025 Sharon Parsons FUEL EFFICIENT AIRCRAFT DESIGNER-C Referring Provider Active S tart: April 10, [...] Ashley Corea PT Position: P3 Scheduling - Charge Operator Advanced Member Role: Other Name: LAYNE DOHERTY DO Position: P4 Physician - Primary Care Med Service: Active Provider Member Role: Primary Care Physician Address: Address: [address] [place] [address] [place] [address]- Care Team Related Persons Name: EDISDEBI WEBER Address: Home [address] [place], [place] [id number] [place] Care Team Personnel Name: Ashley Corea PT Position: P3 Scheduling - Charge Operator Advanced Member Role: Other Name: LAYNE DOHERTY DO Position: P4 Physician - Primary Care Med Service: Active Provider Member Role: Primary Care Physician Address: Address: [address] [place] [id number] [place] [address] Care Team Related Persons Name: DEBI RANDHAWA Address: [place] [address] [place] [phone] Care Team Personnel Name: Ashley Corea Clerk Lynn PT Position: P3 Scheduling - Charge Operator Advanced Member Role: Other Name: LAYNE DOHERTY DO Position: P4 Physician - Primary Care Member Role: Primary Care Physician Address: Address: [address] [place] [phone] [place] Care Team Related Persons Name: DEBI RANDHAWA Address: [address] [phone] Care Team Personnel Name: Ashley Corea Clerk Lynn PT Position: P3 Scheduling - Charge Operator Advanced Member Role: Other Name: JLUIS NICHOLE DO Position: P4 Physician - Primary Care Member Role: Primary Care Physician Address: Address: [address] [place] [phone] [place] [address] Care Team Related Persons Name: DEBI RANDHAWA Address: [address] [phone] Care Team Personnel Name: Ashley Corea Clerk Lynn PT Position: P3 Scheduling - Charge Operator Advanced Member Role: Other Name: JLUIS NICHOLE DO Position: P4 Physician - Primary Care Member Role: Primary Care Physician Address: Address: [address] [place] [address] Care Team Related Persons Name: DEBI RANDHAWA Address: [address] [phone] [place] Source Comments (unrecognize d section and content) In the event this informatio n is protected by the Federal Confidentiality of Alcohol and Drug Abuse Patient Records regulations: The Federal rules restrict any use of the information to criminally investigate or prosecute any alcohol or drug abuse patient.[facility] Reason for Visit (unrecogniz ed section and [...] BE BASED ON THE PRIMARY CLINICAL RECORDS. [facility]. provides no warranty or guarantee of the accuracy or completeness of information in this document.
[2025-08-21 08:09] LABS: Potassium 4.9 mmol/L (3.3-5.1)
== END ==
LOC: OLS.WHLTSB 05:00
PROVIDERS: PCP Student in an Organized Health Care Education/Training Program; Visit Provider Internal Medicine
DX: E87.5 Hyperkalemia (principal)
CPT/HCPCS: 36415; 84132

== ENCOUNTER → 2025-08-28 05:00 | Outpatient (REF) | payer MEDICARE, OTHER, SELFPAY ==
--- OUTSIDE RECORDS SUMMARY | 2025-08-28 04:21 | XMS RPT_ITS | CCD ---
Author Organization [facility] Care Team Providers Care Well Tester Name Role Phone ARTEM ACEVEDO Unavailable Unavailable [facility] Unavailable Unavailable [facility] Unavailable Unavailable LAYNE DOHERTY DO Primary Care Physician Anmol OLIVA, Lynn Unavailable Unavailable Dr. Layne Doherty Primary Care Provider Dr. Layne Doherty Referring Provider Dr. Satish Razo Attending Provider [phone] DAYANARA LEE, DR BAZZI Primary Care Physician [phone] Dr. Layne Doherty Primary Care Provider Dr. Layne Doherty Referring Provider Roof FINISHED GOODS PLANNER, FINISHED GOODS PLANNER-Mayra Murphy Attending Provider Dr. Braxton Doss Attending Provider [phone] Dr. Layne Doherty Referring Provider Roof FINISHED GOODS PLANNER, FINISHED GOODS PLANNER-C Maryuri Murphy Attending Provider Dr. Jluis Nichole [...] Romario ROMAN, Dr. Limon Attending Provider Shy FINISHED GOODS PLANNER-C, Maryuri Murphy Attending Provider Shy FINISHED GOODS PLANNER-C, Maryuri Murphy Referring Provider Bailey Salcedo Attending Provider Dayanara LEE, Dr. Bazzi Primary Care Provider Dayanara LEE, Dr. Bazzi Referring Provider [phone] Issa FARRIS-CSharon Attending Provider Dayanara LEE, Dr. Bazzi Primary Care Provider Dayanara LEE, Dr. Bazzi Referring Provider [phone] Bailey Salcedo Referring Provider Dr. Cheng Camarillo MD Attending Provider Issa FARRIS-CSharon Referring Provider [phone] Kali LEE, Dr. Story Other Provider [phone] Dr. Cecilio Siu MD Attending Provider Dr. [...] Romario ROMAN, Dr. Limon Attending Physician [phone] GILBERTOAR DO, DR BAZZI Primary Care Unavailable [...] DR BAZZI Attending Unavailable ROMAR DO, DR BZAZI Primary Care Unavailable ROMAR DO, DR BAZZI [...] [Antibiotics] Propensity to adverse reactions 11-29-2024 C-diff [facility] Comment on above: Per patient he [...] 0 Refill(s), 07/14/25 5:16:00 PM EDT, Pharmacy: [facility]/pharmacy #4605, 172, cm, 07/04/25 13:52:00 EDT, [...] meds, # 100 tab(s), 1 Refill(s), Pharmacy: [facility] [address], 182.9, cm, 02/22/25 17:36:00 EDT, Height, kg, 02/22/25 17:36:00 EDT, Dosing Weight Start Date: 04/04/25 Stop Date: 10/21/25 Status: Ordered Medication Dispense Status: Completed Quantity: 100.0 Unit: tab(s) Total Allowed Fills: 2 Fills Dispensed: 0 Start: 09-21-2022 take 1 tablet by zach th once daily at bedtime atorvastatin 40 mg oral tablet 1 tab(s), Oral, qHS, # 90 tab(s), 1 Refill(s), Pharmacy: [facility]/pharmacy #4605, 175, cm, 09/21/22 8:31:00 EST, [...] 0 Refill(s), 07/09/25 5:16:00 PM EDT, Pharmacy: [facility]/pharmacy #4605, 172, cm, 07/04/25 13:52:00 EDT, [...] 0 Refill(s), 08/28/24 2:31:00 PM EST, Pharmacy: [facility]/pharmacy #4605, 172, cm, 08/11/24 10:00:00 EST, [...] qDay, # 14 tab(s), 0 Refill(s), Pharmacy: [facility]/pharmacy #4605, 172.7, cm, 12/27/20 12:02:00 EDT, [...] meds, # 100 tab(s), 1 Refill(s), Pharmacy: [facility] [address], 172, cm, 05/23/25 9:57:00 EDT, Height, kg, [...] CHEW, # 180 tab(s), 1 Refill(s), Pharmacy: [facility]/pharmacy #4605, 172, cm, 08/11/24 10:00:00 EST, [...] # 180 tab(s), 1 Refill(s), [facility] 172, cm, 12/14/23 8:38:00 EDT, Height, kg, 12/14/23 8:38:00 EDT, Dosing Weight Start Date: 03/29/24 Status: Ordered Start: 12-31-2023 Metoprolol Suc cinate ER 100 mg oral TABLET extended release Dose : 100 mg = 1 tab(s), Oral, BID, TAKE 1 TABLET BY MOUTH TWICE A DAY DO NOT CRUSH OR CHEW, # 180 tab(s), 0 Refill(s), Pharmacy: [facility]/pharmacy #4605, 172, cm, 12/14/23 8:38:00 EDT, [...] # 180 tab(s), 1 Refill(s), [facility], 175, cm, 04/16/22 7:17:00 EDT, Height, [...] # 180 tab(s), 1 Refill(s), [facility], 175, cm, 06/16/21 8:33:00 EDT, Height, [...] meds, # 90 tab(s), 1 Refill(s), Pharmacy: [facility] [address], 182.9, cm, 02/22/25 17:36:00 EDT, Height, kg, [...] qDay, # 90 tab(s), 0 Refill(s), Pharmacy: [facility]/pharmacy #4605, 172, cm, 02/21/25 9:16:00 EDT, Height, kg, 02/21/25 9:16:00 EDT, Dosing Weight Start Date: 02/21/25 Status: Ordered Quantity: 90.0 Unit: tab(s) Repeat number: 1 Start: 06-28-2024 End: 09-26-2024 sertraline 25 mg oral tablet Dose : 25 mg = 1 tab(s), Oral, qDay, # 90 tab(s), 0 Refill(s), Pharmacy: [facility]/pharmacy #4605, 172, cm, 06/28/24 8:58:00 EDT, Height, kg, 06/28/24 8:49:00 EDT, Dosing Weight Start Date: 06/28/24 Stop Date: 09/26/24 Status: Ordered Quantity: 90.0 Unit: tab(s) Repeat number: 1 [place] [address] mg powder for oral suspension (20 sources) [...] qDay, # 90 tab(s), 0 Refill(s), Pharmacy: [facility]/pharmacy #4605, 172, cm, 08/11/24 10:00:00 EST, Height, kg, 08/11/24 10:00:00 EST, Dosing Weight Start Date: 08/14/24 Status: Ordered Quantity: 90.0 Unit: tab(s) Repeat number: 1 Start: 08-14-2024 Vitamin B12 10 00 mcg oral tablet Dose : 1,000 mcg = 1 tab(s), Oral, qDay, # 90 tab(s), 0 Refill(s), Pharmacy: [facility]/pharmacy #4605, 172, cm, 08/11/24 10:00:00 EST, Height, kg, 08/11/24 10:00:00 EST, Dosing Weight Start Date: 08/14/24 Status: Ordered Vitamin B12 500 mcg oral tablet (1 source) Start: 02-22-2025 End: 05-23-2025 Vitamin B12 500 mcg oral tab let Dose : 500 mcg = 1 tab(s), Oral, qDay, # 90 tab(s), 0 Refill(s), Pharmacy: [facility]/pharmacy #4605, 172, cm, 02/21/25 9:16:00 EDT, [...] DAY, # 180 tab(s), 1 Refill(s), Pharmacy: [facility]/pharmacy #4605, 175, cm, 06/16/21 8:33:00 EDT, [...] 2018 12:00am February 25, 2021 8:19am nystatin 202348 unt/ml oral suspension (12 sources) Polyene Antifungal Start: 06-16-2018 End: 07-07-2018 take 145200 [IU] by mouth four times daily Nystatin 500,000 UNIT/5 ML suspension Discontinued [id number] U PO 4 TIMES DAILY 150 0 [...] 07-30-2025 Potassium [Moles/Vol] 4.5 mmol/L Normal 3.3-5.1 [facility] Comment on above: Performed By: #### L 500.2500, L501.5200 #### [facility] [place], [address] Potassiumon 07-24-2025 Potassium [Moles/Vol] 4.9 mmol/L Normal 3.3-5.1 [facility] Comment on above: Result Comment: Hemo lysis present, Results??could be affected. ?? Performed By: #### L 501.5600 #### [facility] [address] [place], [address] Potassiumon 07-16-2025 Potassium [Moles/Vol] 5.2 mmol/L High 3.3-5.1 [facility] Comment on above: Performed By: #### L 501.5600 #### [facility] [address] [place], [address] .GFRon 07-12-2025 Estimated Glomerular Filtration Rate 35 ml/min/1.73sqm Normal [facility] Comment on above: Result Comment: Stages [...] W, MG, ADIFF, GFR, CMP, ANEU #### [address] [place], [place] [address] BMPon 07-12-2025 BUN/Creatinine Ratio 17 ratio Normal 7-27 [facility] Comment on above: Order Comment: hemol maya jimenez Performed By: #### C LYNSEY, MDW, MG, ADIFF, GFR, CMP, ANEU #### [address] [place], [place] [address] Calcium [Mass/Vol] 8.5 mg/dL Normal 8.4-10.2 [facility] Comment on above: Order Comment: hemmaya ruiz Performed By: #### C KYUNG MENON, MG, ADIFF, GFR, CMP, ANEU #### [address] [address] Chloride [Moles/Vol] 108 mmol/L High 98-107 [facility] Comment on above: Order Comment: hemmaya ruiz Performed By: #### KYUNG SANTOS, MG, ADIFF, GFR, CMP, ANEU #### [address] [address] CO2 [Moles/Vol] 26 mmol/L Normal 23-31 [facility] Comment on above: Order Comment: hemmaya ruiz Performed By: #### KYUNG SANTOS, MG, ADIFF, GFR, CMP, ANEU #### [address] [address] Creatinine [Mass/Vol] 1.86 mg/dL High 0.67-1.17 [facility] Comment on above: Order Comment: hemmaya ruiz Performed By: #### KYUNG SANTOS, MG, ADIFF, GFR, CMP, ANEU #### [address] [address] Electrolyte Balance 6.0 mEq/L Normal 4.0-15.0 [facility] Comment on above: Order Comment: hemmaya ruiz Performed By: #### KYUNG SANTOS, MG, ADIFF, GFR, CMP, ANEU #### [address] [address] Glucose [Mass/Vol] 162 mg/dL High 83-110 [facility] Comment on above: Order Comment: hemmaya ruiz Performed By: #### KYUNG SANTOS, MG, ADIFF, GFR, CMP, ANEU #### [address] [address] Potassium [Moles/Vol] 5.2 mmol/L High 3.5-5.1 [facility] Comment on above: Order Comment: hemol maya jimenez Performed By: #### C LYNSEY, KYUNG, MG, ADIFF, GFR, CMP, ANEU #### [address] [place], [place] [address] Sodium [Moles/Vol] 140 mmol/L Normal 136-145 [facility] Comment on above: Order Comment: maya rosa Performed By: #### C LYNSEY, KYUNG, MG, ADIFF, GFR, CMP, ANEU #### [address] [place], [place] [address] Urea nitrogen [Mass/Vol] 31 mg/dL High 7-18 [facility] Comment on above: Order Comment: maya rosa Performed By: #### C LYNSEY, KYUNG, MG, ADIFF, GFR, CMP, ANEU #### [address] [place], [place] [address] LABORATORYOrdered By: SYSTEM SYSTEM on 07-12-2025 Calcium [...] [Moles/Vol] 6.0 mmol/L Invalid Interpretation Code 3.3-5.1 [facility] Comment on above: Result Comment: Crit ical Result(s) Called MSHRIVER at: 1832 by: BRIDGETTE??Results read back by same. Performed By: #### L 501.5600 #### [facility] [address] [place], [address] XR RIBS 2 VIEWS RIGHTon 06-20 XR [...] Ordering Provider: JLUIS NICHOLE RP [facility] XR SHOULDER MINIMUM 2 VIEWS RIGHTon [...] 07/06/2025 11:19:30 AM Ordering Provider: JLUIS NICHOLE [employer] [facility] CT HEAD OR BRAIN W/O CONTRAS [...] resident's findings and interpretation. Interpreted by: Layne aNyak MD Preliminary Report By: Teresa Kowalski Electronically signed By Layne Nayak MD Dictated Date: 07/05/2025 3:54:19 PM Prelim Date: 07/05/2025 4:57:02 PM Sign Date: 07/05/2025 4:57:02 PM Ordering Provider: JLUIS NICHOLE Normal [facility] Paul 07-05-2025 Potassium [Moles/Vol] 5.3 mmol/L High 3.5-5.1 L [facility] Comment on above: Performed By: #### C KYUNG MENON, MG, ADIFF, GFR, CMP, ANEU #### [address] [address] LABORATORYOrdered By: SYSTEM SYSTEM on 07-05-2025 Potassium [Moles/Vol] 5.3 mmol/L High 3.5 - 5.1 mmol/L AO ADM SS .Auto Diffon 07-04-2025 Basophil, Absolute 0.0 10 3/mcL Normal 0.0-0.3 [facility] Comment on above: Performed By: #### C KYUNG MENON, MG, ADIFF, GFR, CMP, ANEU #### [address] [address] Basophils/100 WBC (Bld) 0.7 % Normal 0.0-2.5 [facility] Comment on above: Performed By: #### C KYUNG MENON, MG, ADIFF, GFR, CMP, ANEU #### [address] [address] Eosinophil, Absolute 0.1 10 3/mcL Normal 0.0-0.7 [facility] Comment on above: Performed By: #### C KYUNG MENON, MG, ADIFF, GFR, CMP, ANEU #### [address] [place], [place] [address] Eosinophils/100 WBC (Bld) 1.8 % Normal 0.0-6.0 [facility] Comment on above: Performed By: #### C LYNSEY, KYUNG, MG, ADIFF, GFR, CMP, ANEU #### [address] [address] Lymphocyte, Absolute 1.5 10 3/mcL Normal 0.9-4.3 [facility] Comment on above: Performed By: #### C LYNSEY, W, MG, ADIFF, GFR, CMP, ANEU #### [address] [address] Lymphocytes/100 WBC (Bld) 20.8 % Normal 20.0-40.0 [facility] Comment on above: Performed By: #### C LYNSEY, KYUNG, MG, ADIFF, GFR, CMP, ANEU #### [address] [address] Monocyte, Absolute 0.5 10 3/mcL Normal 0.1-1.4 [facility] Comment on above: Performed By: #### C LYNSEY, W, MG, ADIFF, GFR, CMP, ANEU #### [address] [address] Monocytes/100 WBC (Bld) 7.7 % Normal 2.0-13.0 [facility] Comment on above: Performed By: #### C LYNSEY, KYUNG, MG, ADIFF, GFR, CMP, ANEU #### [address] [address] Neutrophils/100 WBC (Bld) 69.0 % Normal 50.0-75.0 [facility] Comment on above: Performed By: #### C LYNSEY, W, MG, ADIFF, GFR, CMP, ANEU #### [address] [address] .GFRon 07-04-2025 Estimated Glomerular Filtration Rate 36 ml/min/1.73sqm Normal [facility] Comment on above: Result Comment: Stages [...] MENON, MG, ADIFF, GFR, CMP, ANEU #### [address] [place] [address] .NEUABSon 07-04-2025 Neutrophil, Absolute 4.9 10 3/mcL Normal 2.3-8.1 [facility] Comment on above: Performed By: #### C KYUNG MENON, MG, ADIFF, GFR, CMP, ANEU #### [address] [place] [address] CBCon 07-04-2025 Erythrocyte distribution width (RBC) [Ratio] 16.2 % High 11.5-15.5 [facility] Comment on above: Performed By: #### C KYUNG MENON, MG, ADIFF, GFR, CMP, ANEU #### [address] [place] [address] Hematocrit (Bld) [Volume fraction] 33.6 % Low 40.0-52.0 [facility] Comment on above: Performed By: #### C KYUNG MENON, MG, ADIFF, GFR, CMP, ANEU #### [address] [place] [address] Hgb 11.1 G/dL Low 13.0-17.5 [facility] Comment on above: Performed By: #### C KYUNG MENON, MG, ADIFF, GFR, CMP, ANEU #### [address] [place] [address] MCH (RBC) [Entitic mass] 31.1 pg Normal 27.0-33.0 [facility] Comment on above: Performed By: #### C KYUNG MENON, MG, ADIFF, GFR, CMP, ANEU #### [address] [address] MCHC 32.9 G/dL Normal 32.0-36.0 [facility] Comment on above: Performed By: #### C KYUNG MENON, MG, ADIFF, GFR, CMP, ANEU #### [address] [address] MCV (RBC) [Entitic vol] 94.6 fL Normal 81.0-100.0 [facility] Comment on above: Performed By: #### C KYUNG MENON, MG, ADIFF, GFR, CMP, ANEU #### [address] [place] [address] Platelet 107 10 3/mcL Low 150-450 [facility] Comment on above: Performed By: #### C KYUNG MENON, MG, ADIFF, GFR, CMP, ANEU #### [address] [place] [address] Platelet mean volume (Bld) [Entitic vol] 8.5 fL Normal 6.4-10.5 [facility] Comment on above: Performed By: #### C KYUNG MENON, MG, ADIFF, GFR, CMP, ANEU #### [address] [address] RBC 3.55 10 6/mcL Low 4.50-6.00 [facility] Comment on above: Performed By: #### C KYUNG MENON, MG, ADIFF, GFR, CMP, ANEU #### [address] [address] WBC 7.1 10 3/mcL Normal 4.5-10.8 [facility] Comment on above: Performed By: #### C KYUNG MENON, MG, ADIFF, GFR, CMP, ANEU #### [address] [place] [address] CMPon 07-04-2025 Albumin Level 3.7 G/dL Normal 3.4-4.8 [facility] Comment on above: Performed By: #### C KYUNG MENON, MG, ADIFF, GFR, CMP, ANEU #### [address] [place] [address] Albumin/Globulin [Mass ratio] 1.2 {ratio} Normal 1.1-2.5 [facility] Comment on above: Performed By: #### C LYNSEY, KYUNG, MG, ADIFF, GFR, CMP, ANEU #### [address] [place] [address] ALP [Catalytic activity/Vol] 108 U/L Normal 40-135 [facility] Comment on above: Performed By: #### C LYNSEY, KYUNG, MG, ADIFF, GFR, CMP, ANEU #### [address] [place] [address] ALT/SGPT <6 Low 16-63 [facility] Comment on above: Performed By: #### C KYUNG MENON, MG, ADIFF, GFR, CMP, ANEU #### [address] [place] [address] AST [Catalytic activity/Vol] 12 U/L Normal 10-40 [facility] Comment on above: Performed By: #### C KYUNG MENON, MG, ADIFF, GFR, CMP, ANEU #### [place] [id number] Bili Total 0.7 mg/dL Normal 0.2-1.0 [facility] Comment on above: Result Comment: Use of this assay is not recommended for patients undergoing treatment with eltrombopag due to the potential for falsely elevated results. Performed By: #### C KYUNG MENON, MG, ADIFF, GFR, CMP, ANEU #### [place] [address] BUN/Creatinine Ratio 17 ratio Normal 7-27 [facility] Comment on above: Performed By: #### C KYUNG MENON, MG, ADIFF, GFR, CMP, ANEU #### [place] [address] Calcium [Mass/Vol] 9.1 mg/dL Normal 8.4-10.2 [facility] Comment on above: Performed By: #### C KYUNG MENON, MG, ADIFF, GFR, CMP, ANEU #### [address] [address] Chloride [Moles/Vol] 110 mmol/L High 98-107 [facility] Comment on above: Performed By: #### C KYUNG MENON, MG, ADIFF, GFR, CMP, ANEU #### [address] [place] [address] CO2 [Moles/Vol] 28 mmol/L Normal 23-31 [facility] Comment on above: Performed By: #### C KYUNG MENON, MG, ADIFF, GFR, CMP, ANEU #### [place] [id number] Creatinine [Mass/Vol] 1.82 mg/dL High 0.67-1.17 [facility] Comment on above: Performed By: #### C KYUNG MENON, MG, ADIFF, GFR, CMP, ANEU #### [address] [address] Electrolyte Balance 5.0 mEq/L Normal 4.0-15.0 [facility] Comment on above: Performed By: #### C KYUNG MENON, MG, ADIFF, GFR, CMP, ANEU #### [address] [address] Globulin 3.1 G/dL Normal 2.7-4.4 [facility] Comment on above: Performed By: #### C KYUNG MENON, MG, ADIFF, GFR, CMP, ANEU #### [address] [address] Glucose [Mass/Vol] 68 mg/dL Low 83-110 [facility] Comment on above: Performed By: #### C KYUNG MENON, MG, ADIFF, GFR, CMP, ANEU #### [address] [address] Potassium [Moles/Vol] 5.4 mmol/L High 3.5-5.1 [facility] Comment on above: Performed By: #### C KYUNG MENON, MG, ADIFF, GFR, CMP, ANEU #### [address] [place], [place] [address] Sodium [Moles/Vol] 143 mmol/L Normal 136-145 [facility] Comment on above: Performed By: #### C KYUNG MENON, MG, ADIFF, GFR, CMP, ANEU #### [address] [place], [place] [address] Total Protein 6.8 G/dL Normal 6.4-8.2 [facility] Comment on above: Performed By: #### C KYUNG MENON, MG, ADIFF, GFR, CMP, ANEU #### [address] [place], [place] [address] Urea nitrogen [Mass/Vol] 31 mg/dL High 7-18 [facility] Comment on above: Performed By: #### C KYUNG MENON, MG, ADIFF, GFR, CMP, ANEU #### [address] [address] LABORATORYOrdered By: SYSTEM SYSTEM on 07-04-2025 Albumin [...] Culture Urine No growth at 48 hours. [facility] Work Phone: PBNPon 07-04-2025 Natriuretic peptide B (Bld) [Mass/Vol] 1302 pg/mL High 0-450 [facility] Comment on above: Result Comment: NT-p roBNP results of less than 300 pg/mL effectively rules out acute congestive heart failure with 99% negative predictive value. Performed By: #### C BC, MDW, MG, ADIFF, GFR, CMP, ANEU #### [facility] [address] [place], [place] [address] XR CHEST 2 VIEWSon XR CHEST 2 [...] Ordering Provider: JLUIS NICHOLE RP Normal [facility] XR HUMERUS MINIMUM 2 VIEWS R [...] Ordering Provider: JLUIS NICHOLE RP Normal [facility] Neurology Visit Reporton Neurology Visit Report [facility] [address] [facility], [address] [place] [address] OFFICE VISIT Date of Service: 06/11/25 MR#: [id number] Acct: [id number] Name: EKATERINA RANDHAWA Rep #: [id number] : 1940 Provider: Dr. Braxton garg MD Age/Sex: 85/M Location: [facility]. 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 He [...] pattern). Head (more content not included)... Normal [facility] Anion gap in Serum or Plasma Ordered By: Porsha Bass on 04-26-2025 Anion gap [Moles/Vol] 11 mmol/L - [facility] BUN/creatinine ratioOrdered By: Porsha Bass on 04-26-2025 Urea nitrogen/Creatinine [Mass ratio] 14.1 mg/mg - [facility] Basic Metabolic Profile (BMP )on 04-26-2025 BUN/CRE 14.1 RATIO Normal 07-09 [facility] Comment on above: Performed By: #### L 500.2500 #### [facility] [place], [address] Calcium [Mass/Vol] 9.1 mg/dL Normal 7.6-11.0 [facility] Comment on above: Performed By: #### L 500.2500 #### [facility] [address] [place], [address] Chloride [Moles/Vol] 106 mmol/L Normal 98-108 [facility] Comment on above: Performed By: #### L 500.2500 #### [facility] [address] [place], [address] CO2 [Moles/Vol] 20.7 mmol/L Low 21.0-32.0 [facility] Comment on above: Performed By: #### L 500.2500 #### [facility] [address] [place], [address] Creatinine [Mass/Vol] 1.85 mg/dL High 0.70-1.20 [facility] Comment on above: Performed By: #### L 500.2500 #### [facility] [address] [place], [address] GAP 11 Normal 5-15 [facility] Comment on above: Performed By: #### L 500.2500 #### [facility] [address] [place], [address] GFR/1.73 sq M.predicted among non-blacks MDRD (S/P/Bld) [Vol rate/Area] 35 mL/min/{1.73_m2} Low >60 [facility] Comment on above: Result Comment: mL/m in/1.73m2 CKD-EPI Creatinine Equation (2020) Performed By: #### L 500.2500 #### [facility] [address] [place], [address] Glucose [Mass/Vol] 174 mg/dL High 70-99 [facility] Comment on above: Performed By: #### L 500.2500 #### [facility] [address] [place], [address] Potassium [Moles/Vol] 4.4 mmol/L Normal 3.3-5.1 [facility] Comment on above: Performed By: #### L 500.2500 #### [facility] [address] [place], [place], [id number] Sodium [Moles/Vol] 138 mmol/L Normal 133-145 [facility] Comment on above: Performed By: #### L 500.2500 #### [facility] [address], [address] Urea nitrogen [Mass/Vol] 26 mg/dL High 4-19 [facility] Comment on above: Performed By: #### L 500.2500 #### [facility] [address] [place], [address] Carbon dioxide, total [Moles /volume] in Central venous bloodOrdered By: Porsha Bass on 04-26-2025 CO2 [Moles/Vol] 20.7 mmol/L Low 21.0-32.0 [facility] Chloride assayOrdered By: Kev Bass on 04-26-2025 Chloride [Moles/Vol] 106 mmol/L 98-108 [facility] Glomerular filtration rate ( GFR) estimation/1.73 sq m using serum, plasma, or whole bOrdered By: Porsha Bass on 04-26-2025 GFR/1.73 sq M.predicted among non-blacks MDRD (S/P/Bld) [Vol rate/Area] 35 mL/min/{1.73_m2} Low >60 [facility] Comment on above: mL/min/1.73m2 CKD-EP I Creatinine Equation (2020) Kidney and Bladderon 025 Kidney and Bladder [facility] Imaging Services [address] [place], [place] [address] Kidney and Bladder MR#: [id number] Acct: [id number] Name: EKATERINA RANDHAWA Rep #: [id number] : 1940 M 85 From: Konrad gaston MD PCP: Dr. Jluis Nichole, DO Status: REG CLI Study: Kidney and Bladder Date of Exam: 04/26/25 Exam# [id number] Ordering Dr: Porsha Bass DO PROCEDURE: KIDNEY AND BLADDER 04/26/2025 REASON FOR EXAM: HYPERKALEMIA TECHNIQUE: KIDNEY AND BLADDER COMPARISON: None FINDINGS: Kidneys: Normal renal sizes, parenchymal thicknesses, and echotextures. Hasty: No evidence of hydronephrosis. Cysts or Masses: [...] Bladder IMPRESSION: NORMAL RENAL ULTRASOUND. Reading Location: [id number] CC: Dr. Porsha Bass DO; Dr. Jluis Nichole DO Hand Brush Filler: Signed Normal [facility] Potassium measurement (mass/ volume)Ordered By: Porsha Bass on 04-26-2025 Potassium (Unsp spec) [Mass/Vol] 4.4 mmol/L 3.3-5.1 [facility] Serum creatinine measurement (mass/volume)Ordered By: Porsha Bass on 04-26-2025 Creatinine [Mass/Vol] 1.85 mg/dL High 0.70-1.20 [facility] Serum glucose measurement (m ass/volume)Ordered By: Porsha Bass on 04-26-2025 Glucose [Mass/Vol] 174 mg/dL High 70-99 [facility] Serum or plasma calcium francisco urement (mass/volume)Ordered By: Porsha Bass on 04-26-2025 Calcium [Mass/Vol] 9.1 mg/dL 7.6-11.0 [facility] Serum or plasma urea nitroge n measurement (mass/volume)Ordered By: Porsha Bass on 04-26-2025 Urea nitrogen [Mass/Vol] 26 mg/dL High 4-19 [facility] Sodium levelOrdered By: Seth Bass on 04-26-2025 Sodium [Moles/Vol] 138 mmol/L 133-145 [facility] Anion gap in Serum or Plasma Ordered By: Porsha Bass on 04-19-2025 Anion gap [Moles/Vol] 10 mmol/L - [facility] BUN/creatinine ratioOrdered By: Porsha Bass on 04-19-2025 Urea nitrogen/Creatinine [Mass ratio] 13.8 mg/mg 07-09 [facility] Basic Metabolic Profile (BMP )on 04-19-2025 BUN/CRE 13.8 RATIO Normal 07-09 [facility] Comment on above: Performed By: #### L 500.2500 #### [facility] [address] [place], [address] Calcium [Mass/Vol] 9.1 mg/dL Normal 7.6-11.0 [facility] Comment on above: Performed By: #### L 500.2500 #### [facility] [address] [place], [address] Chloride [Moles/Vol] 107 mmol/L Normal 98-108 [facility] Comment on above: Performed By: #### L 500.2500 #### [facility] [address] [place], [address] CO2 [Moles/Vol] 23.5 mmol/L Normal 21.0-32.0 [facility] Comment on above: Performed By: #### L 500.2500 #### [facility] [address] [place], [address] Creatinine [Mass/Vol] 1.99 mg/dL High 0.70-1.20 [facility] Comment on above: Performed By: #### L 500.2500 #### [facility] [address] [place], [address] GAP 10 Normal - [facility] Comment on above: Performed By: #### L 500.2500 #### [facility] [address] [place], [address] GFR/1.73 sq M.predicted among non-blacks MDRD (S/P/Bld) [Vol rate/Area] 32 mL/min/{1.73_m2} Low >60 [facility] Comment on above: Result Comment: mL/m in/1.73m2 CKD-EPI Creatinine Equation (2020) Performed By: #### L 500.2500 #### [facility] [address] [place], [address] Glucose [Mass/Vol] 117 mg/dL High 70-99 [facility] Comment on above: Performed By: #### L 500.2500 #### [facility] [address] [place], [address] Potassium [Moles/Vol] 5.7 mmol/L High 3.3-5.1 [facility] Comment on above: Performed By: #### L 500.2500 #### [facility] [address] [place], [address] Sodium [Moles/Vol] 140 mmol/L Normal 133-145 [facility] Comment on above: Performed By: #### L 500.2500 #### [facility] [address] [place], [address] Urea nitrogen [Mass/Vol] 27 mg/dL High 4-19 [facility] Comment on above: Performed By: #### L 500.2500 #### [facility] [address] [place], [address] Carbon dioxide, total [Moles /volume] in Central venous bloodOrdered By: Porsha Bass on 04-19-2025 CO2 [Moles/Vol] 23.5 mmol/L 21.0-32.0 [facility] Chloride assayOrdered By: Kev Bass on 04-19-2025 Chloride [Moles/Vol] 107 mmol/L 98-108 [facility] Glomerular filtration rate ( GFR) estimation/1.73 sq m using serum, plasma, or whole bOrdered By: Porsha Bass on 04-19-2025 GFR/1.73 sq M.predicted among non-blacks MDRD (S/P/Bld) [Vol rate/Area] 32 mL/min/{1.73_m2} Low >60 [facility] Comment on above: mL/min/1.73m2 CKD-EP I Creatinine Equation (2020) Potassium measurement (mass/ volume)Ordered By: Porsha Bass on 04-19-2025 Potassium (Unsp spec) [Mass/Vol] 5.7 mmol/L High 3.3-5.1 [facility] Serum creatinine measurement (mass/volume)Ordered By: Porsha Bass on 04-19-2025 Creatinine [Mass/Vol] 1.99 mg/dL High 0.70-1.20 [facility] Serum glucose measurement (m ass/volume)Ordered By: Porsha Bass on 04-19-2025 Glucose [Mass/Vol] 117 mg/dL High 70-99 [facility] Serum or plasma calcium francisco urement (mass/volume)Ordered By: Porsha Bass on 04-19-2025 Calcium [Mass/Vol] 9.1 mg/dL 7.6-11.0 [facility] Serum or plasma urea nitroge n measurement (mass/volume)Ordered By: Porsha Bass on 04-19-2025 Urea nitrogen [Mass/Vol] 27 mg/dL High 4-19 [facility] Sodium levelOrdered By: Seth Bass on 04-19-2025 Sodium [Moles/Vol] 140 mmol/L 133-145 [facility] Anion gap in Serum or Plasma Ordered By: Porsha Bass on 04-10-2025 Anion gap [Moles/Vol] 10 mmol/L 5-15 [facility] BUN/creatinine ratioOrdered By: Porsha Bass on 04-10-2025 Urea nitrogen/Creatinine [Mass ratio] 16.9 mg/mg 10- [facility] Basic Metabolic Profile (BMP )on 04-10-2025 BUN/CRE 16.9 RATIO Normal - [facility] Comment on above: Performed By: #### L 500.2500, L501.5200 #### [facility] [place], [address] Calcium [Mass/Vol] 9.4 mg/dL Normal 7.6-11.0 [facility] Comment on above: Performed By: #### L 500.2500, L501.5200 #### [facility] [address] [place], [address] Chloride [Moles/Vol] 107 mmol/L Normal 98-108 [facility] Comment on above: Performed By: #### L 500.2500, L501.5200 #### [facility] [address] [place], [address] CO2 [Moles/Vol] 23.1 mmol/L Normal 21.0-32.0 [facility] Comment on above: Performed By: #### L 500.2500, L501.5200 #### [facility] [address] [place], [address] Creatinine [Mass/Vol] 1.80 mg/dL High 0.70-1.20 [facility] Comment on above: Performed By: #### L 500.2500, L501.5200 #### [facility] [address] [place], [address] GAP 10 Normal 5-15 [facility] Comment on above: Performed By: #### L 500.2500, L501.5200 #### [facility] [address] [place], [address] GFR/1.73 sq M.predicted among non-blacks MDRD (S/P/Bld) [Vol rate/Area] 36 mL/min/{1.73_m2} Low >60 [facility] Comment on above: Result Comment: mL/m in/1.73m2 CKD-EPI Creatinine Equation (2020) Performed By: #### L 500.2500, L501.5200 #### [facility] [address] [place], [address] Glucose [Mass/Vol] 129 mg/dL High 70-99 [facility] Comment on above: Performed By: #### L 500.2500, L501.5200 #### [facility] [address] [place], [address] Potassium [Moles/Vol] 5.5 mmol/L High 3.3-5.1 [facility] Comment on above: Performed By: #### L 500.2500, L501.5200 #### [facility] [address] [place], [address] Sodium [Moles/Vol] 140 mmol/L Normal 133-145 [facility] Comment on above: Performed By: #### L 500.2500, L501.5200 #### [facility] [address] [place], [address] Urea nitrogen [Mass/Vol] 30 mg/dL High 4-19 [facility] Comment on above: Performed By: #### L 500.2500, L501.5200 #### [facility] [address] [place], [address] Carbon dioxide, total [Moles /volume] in Central venous bloodOrdered By: Porsha Bass on 04-10-2025 CO2 [Moles/Vol] 23.1 mmol/L 21.0-32.0 [facility] Carotid Duplex Ultrasoundon 04-10-2025 Carotid Duplex Ultrasound [facility] [address] [place] [address] Carotid Duplex Ultrasound 04/10/25 1303 MR#: [id number] Acct: [id number] Name: EKATERINA RANDHAWA Rep #: [id number] : 1940 85 From: Cecilio Siu MD Attending Dr: WON FernándezC Status: REG C KELVIN Ordering Dr: Sharon Parsons [employer]-C Date: 04/10/25 Location: [facility] Sex: M C Admitted: Reason For [...] the left vertebral artery. Procedure Carotid Duplex 33298. This is a Carotid Duplex examination using B-mode, color flow and specral Doppler. Exam performed in department. VL/Carotid Duplex Ultrasound Interpretation Summary Mild (<50%) stenosis right extracranial internal carotid. Mild (<50%) stenosis left extracranial internal carotid. Patent and antegrade vertebrals bilaterally. ___ Ordering Physician: Sharon Parsons Referring Physician: Jluis Nichole DO Performed By: Arelis Boyer, RVT 04/10/25 1425 Date Cecilio Siu MD CC: [employer]ISHED [employer]-C Sharon Parsons; Dr. Jluis Nichole DO Date Dictated: 04/10/25 1303 Date Transcribed: 04/10/25 142 Hand Brush Filler: Signed Normal [facility] Chloride assayOrdered By: Kev Bass on 04-10-2025 Chloride [Moles/Vol] 107 mmol/L 98-108 [facility] Duplex ultrasound of carotid artery reportOrdered By: Cecilio Siu on 04-10-2025 Study report [facility] [address] [place] [address] Carotid Duplex Ultrasound 04/10/25 1303 MR#: [id number] Acct: [id number] Name: EKATERINA RANDHAWA Rep #:[id number] : 1940 85 From: Cecilio Bautista Attending Dr: OBIE Fernández S tatus: REG CLI Ordering Dr: Sharon Parsons Date: 04/10/25 Location: [facility] Sex: M C Admitted: Reason For [...] the left vertebral artery. Procedure Carotid Duplex 86569. This is a Carotid Duplex examination using [...] Dictated: 04/10/25 1303 Date Transcribed: 04/10/25 1425 Hand Brush Filler: Signed [facility] Work Phone: Glomerular filtration rate ( GFR) estimation/1.73 sq m using serum, plasma, or whole bOrdered By: Porsha Bass on 04-10-2025 GFR/1.73 sq M.predicted among non-blacks MDRD (S/P/Bld) [Vol rate/Area] 36 mL/min/{1.73_m2} Low >60 [facility] Comment on above: mL/min/1.73m2 CKD-EP I Creatinine Equation (2020) Magnesiumon 04-10-2025 Magnesium [Mass/Vol] 2.0 mg/dL Normal 1.5-2.2 [facility] Comment on above: Performed By: #### L 500.2500, L501.5200 #### [facility] [address] [place], [address] Magnesium measurement (mass/ volume)Ordered By: Porsha Bass on 04-10-2025 Magnesium (Unsp spec) [Mass/Vol] 2.0 mg/dL 1.5-2.2 [facility] Potassium measurement (mass/ volume)Ordered By: Porsha Bass on 04-10-2025 Potassium (Unsp spec) [Mass/Vol] 5.5 mmol/L High 3.3-5.1 [facility] Serum creatinine measurement (mass/volume)Ordered By: Porsha Bass on 04-10-2025 Creatinine [Mass/Vol] 1.80 mg/dL High 0.70-1.20 [facility] Serum glucose measurement (m ass/volume)Ordered By: Porsha Bass on 04-10-2025 Glucose [Mass/Vol] 129 mg/dL High 70-99 [facility] Serum or plasma calcium francisco urement (mass/volume)Ordered By: Porsha Bass on 04-10-2025 Calcium [Mass/Vol] 9.4 mg/dL 7.6-11.0 [facility] Serum or plasma urea nitroge n measurement (mass/volume)Ordered By: Porsha Bass on 04-10-2025 Urea nitrogen [Mass/Vol] 30 mg/dL High 4-19 [facility] Sodium levelOrdered By: Seth Bass on 04-10-2025 Sodium [Moles/Vol] 140 mmol/L 133-145 [facility] Echo Completeon 03-28-2025 Echo Complete [facility] [address] [address] Echo Complete 03/28/25 1258 MR#: [id number] Acct: [id number] Name: EKATERINA RANDHAWA Rep #: [id number] : 1940 85 From: Cheng Camarillo MD Attending Dr: DG Fontana Status: REG CLI Ordering Dr: Bailey Howe Date: 06/14 Location: [facility] Sex: M C Admitted: Reason For [...] Fontana Date Dictated: 03/28/251257 Date Transcribed: 03/28/251840 Hand Brush Filler: Signed Normal [facility] Echocardiogram study reportO rdered By: Cheng Camarillo on 03-28-2025 Study report [facility] [address] [place] [address] Echo Complete 03/28/25 1258 MR#: [id number] Acct: [id number] Name: EKATERINA RANDHAWA Rep #:[id number] : 1940 85 From: Cheng Bautista Attending [...] Date Dictated: 03/28/25 1258 Date Transcribed: 03/28/251840 Hand Brush Filler: Signed [facility] Work Phone: Neurology Visit Reporton Neurology Visit Report [facility] [address] [facility], [address] [place] [address] OFFICE VISIT Date of Service: 03/28/25 MR#: [id number] Acct: [id number] Name: EKATERINA RANDHAWA Rep #: [id number] : 1940 Provider: OBIE key Age/Sex: 85/M Location: [facility]. Status: Signed [facility] HPI Chief Complaint: Details: Interim History: [...] this began during his hospitalization for his ID/CABG and may have been procedure related). He [...] acute o (more content not included)... 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 Encounter Status:Closed by DEB OROZCO on 06/07/25 Normal [facility] INTABon 02-24-2025 Intrinsic Factor Abs 0.9 Au/mL Normal 0.0-1.1 [facility] Comment on above: Result Comment: Perf ormed At: [facility] [id number] Jacques Ferrell MD Ph:[phone] Performed By: #### C KYUNG MENON, MG, ADIFF, GFR, CMP, ANEU #### [address] [address] .Auto Diffon 02-22-2025 Basophil, Absolute 0.1 10 3/mcL Normal 0.0-0.3 [facility] Comment on above: Performed By: #### C KYUNG MENON, MG, ADIFF, GFR, CMP, ANEU #### [address] [address] Basophils/100 WBC (Bld) 1.4 % Normal 0.0-2.5 [facility] Comment on above: Performed By: #### C KYUNG MENON, MG, ADIFF, GFR, CMP, ANEU #### [address] [address] Eosinophil, Absolute 0.1 10 3/mcL Normal 0.0-0.7 [facility] Comment on above: Performed By: #### C LYNSEY, KYUNG, MG, ADIFF, GFR, CMP, ANEU #### [address] [address] Eosinophils/100 WBC (Bld) 2.0 % Normal 0.0-6.0 [facility] Comment on above: Performed By: #### C KYUNG MENON, MG, ADIFF, GFR, CMP, ANEU #### [address] [address] Lymphocyte, Absolute 1.5 10 3/mcL Normal 0.9-4.3 [facility] Comment on above: Performed By: #### C KYUNG MENON, MG, ADIFF, GFR, CMP, ANEU #### [address] [address] Lymphocytes/100 WBC (Bld) 26.0 % Normal 20.0-40.0 [facility] Comment on above: Performed By: #### C KYUNG MENON, MG, ADIFF, GFR, CMP, ANEU #### [address] [address] Monocyte, Absolute 0.5 10 3/mcL Normal 0.1-1.4 [facility] Comment on above: Performed By: #### C KYUNG MENON, MG, ADIFF, GFR, CMP, ANEU #### [address] [address] Monocytes/100 WBC (Bld) 7.8 % Normal 2.0-13.0 [facility] Comment on above: Performed By: #### C KYUNG MENON, MG, ADIFF, GFR, CMP, ANEU #### [address] [address] Neutrophils/100 WBC (Bld) 62.8 % Normal 50.0-75.0 [facility] Comment on above: Performed By: #### C BC, MDW, MG, ADIFF, GFR, CMP, ANEU #### [address] [address] .GFRon 02-22-2025 Estimated Glomerular Filtration Rate 30 ml/min/1.73sqm Normal [facility] Comment on above: Result Comment: Stages [...] MDW, MG, ADIFF, GFR, CMP, ANEU #### [place] [address] .MDWon 02-22-2025 Monocyte Distribution Width 17.57 Normal 0.00-20.00 [facility] Comment on above: Result Comment: For ED adult patients suspected of sepsis, MDW<=20.0 does not rule out sepsis or risk of sepsis Performed By: #### C BC, MDW, MG, ADIFF, GFR, CMP, ANEU #### [place] [address] .NEUABSon 02-22-2025 Neutrophil, Absolute 3.6 10 3/mcL Normal 2.3-8.1 [facility] Comment on above: Performed By: #### C BC, MDW, MG, ADIFF, GFR, CMP, ANEU #### [place] [address] CBCon 02-22-2025 Erythrocyte distribution width (RBC) [Ratio] 15.6 % High 11.5-15.5 [facility] Comment on above: Performed By: #### C BC, MDW, MG, ADIFF, GFR, CMP, ANEU #### [place] [address] Hematocrit (Bld) [Volume fraction] 32.7 % Low 40.0-52.0 [facility] Comment on above: Performed By: #### C KYUNG MENON, MG, ADIFF, GFR, CMP, ANEU #### [place] [address] Hgb 10.8 G/dL Low 13.0-17.5 [facility] Comment on above: Performed By: #### C KYUNG MENON, MG, ADIFF, GFR, CMP, ANEU #### [place] [address] MCH (RBC) [Entitic mass] 29.5 pg Normal 27.0-33.0 [facility] Comment on above: Performed By: #### C KYUNG MENON, MG, ADIFF, GFR, CMP, ANEU #### [place] [address] MCHC 33.0 G/dL Normal 32.0-36.0 [facility] Comment on above: Performed By: #### C KYUNG MENON, MG, ADIFF, GFR, CMP, ANEU #### [place] [address] MCV (RBC) [Entitic vol] 89.5 fL Normal 81.0-100.0 [facility] Comment on above: Performed By: #### C KYUNG MENON, MG, ADIFF, GFR, CMP, ANEU #### [place] [address] Platelet 104 10 3/mcL Low 150-450 [facility] Comment on above: Performed By: #### C KYUNG MENON, MG, ADIFF, GFR, CMP, ANEU #### [place] [address] Platelet mean volume (Bld) [Entitic vol] 7.2 fL Normal 6.4-10.5 [facility] Comment on above: Performed By: #### C KYUNG MENON, MG, ADIFF, GFR, CMP, ANEU #### [address] [address] RBC 3.65 10 6/mcL Low 4.50-6.00 [facility] Comment on above: Performed By: #### C KYUNG MENON, MG, ADIFF, GFR, CMP, ANEU #### [address] [address] WBC 5.8 10 3/mcL Normal 4.5-10.8 [facility] Comment on above: Performed By: #### C KYUNG MENON, MG, ADIFF, GFR, CMP, ANEU #### [address] [address] CMPon 02-22-2025 ALT [Catalytic activity/Vol] 9 U/L Low 16-63 [facility] Comment on above: Performed By: #### C KYUNG MENON, MG, ADIFF, GFR, CMP, ANEU #### [address] [address] Albumin Level 3.7 G/dL Normal 3.4-4.8 [facility] Comment on above: Performed By: #### C KYUNG MENON, MG, ADIFF, GFR, CMP, ANEU #### [address] [address] Albumin/Globulin [Mass ratio] 1.3 {ratio} Normal 1.1-2.5 [facility] Comment on above: Performed By: #### C KYUNG MENON, MG, ADIFF, GFR, CMP, ANEU #### [address] [address] ALP [Catalytic activity/Vol] 99 U/L Normal 40-135 [facility] Comment on above: Performed By: #### C KYUNG MENON, MG, ADIFF, GFR, CMP, ANEU #### [address] [address] AST [Catalytic activity/Vol] 14 U/L Normal 10-40 [facility] Comment on above: Performed By: #### C KYUNG MENON, MG, ADIFF, GFR, CMP, ANEU #### [address] [address] Bili Total 0.5 mg/dL Normal 0.2-1.0 [facility] Comment on above: Result Comment: Use of this assay is not recommended for patients undergoing treatment with eltrombopag due to the potential for falsely elevated results. Performed By: #### C LYNSEY, KYUNG, MG, ADIFF, GFR, CMP, ANEU #### [address] [address] BUN/Creatinine Ratio 16 ratio Normal 7-27 [facility] Comment on above: Performed By: #### C KYUNG MENON, MG, ADIFF, GFR, CMP, ANEU #### [address] [address] Calcium [Mass/Vol] 8.9 mg/dL Normal 8.4-10.2 [facility] Comment on above: Performed By: #### C KYUNG MENON, MG, ADIFF, GFR, CMP, ANEU #### [address] [address] Chloride [Moles/Vol] 106 mmol/L Normal 98-107 [facility] Comment on above: Performed By: #### C KYUNG MENON, MG, ADIFF, GFR, CMP, ANEU #### [address] [address] CO2 [Moles/Vol] 28 mmol/L Normal 23-31 [facility] Comment on above: Performed By: #### C KYUNG MENON, MG, ADIFF, GFR, CMP, ANEU #### [address] [address] Creatinine [Mass/Vol] 2.12 mg/dL High 0.67-1.17 [facility] Comment on above: Performed By: #### C KYUNG MENON, MG, ADIFF, GFR, CMP, ANEU #### [address] [address] Electrolyte Balance 7.0 mEq/L Normal 4.0-15.0 [facility] Comment on above: Performed By: #### C KYUNG MENON, MG, ADIFF, GFR, CMP, ANEU #### [address] [address] Globulin 2.8 G/dL Normal 2.7-4.4 [facility] Comment on above: Performed By: #### C KYUNG MENON, MG, ADIFF, GFR, CMP, ANEU #### [address] [address] Glucose [Mass/Vol] 113 mg/dL High 83-110 [facility] Comment on above: Performed By: #### C KYUNG MENON, MG, ADIFF, GFR, CMP, ANEU #### [address] [address] Potassium [Moles/Vol] 4.7 mmol/L Normal 3.5-5.1 [facility] Comment on above: Performed By: #### C KYUNG MENON, MG, ADIFF, GFR, CMP, ANEU #### [address] [address] Sodium [Moles/Vol] 141 mmol/L Normal 136-145 [facility] Comment on above: Performed By: #### C KYUNG MENON, MG, ADIFF, GFR, CMP, ANEU #### [address] [address] Total Protein 6.5 G/dL Normal 6.4-8.2 [facility] Comment on above: Performed By: #### C KYUNG MENON, MG, ADIFF, GFR, CMP, ANEU #### [address] [address] Urea nitrogen [Mass/Vol] 34 mg/dL High 7-18 [facility] Comment on above: Performed By: #### C KYUNG MENON, MG, ADIFF, GFR, CMP, ANEU #### [address] [address] Jimmy 02-22-2025 Gastrin 113 pg/mL Normal 0-115 [facility] Comment on above: Result Comment: Siem Immulite 2000 Immunochemiluminometric assay (ICMA) Values obtained with different assay methods or kits cannot be used interchangeably. Results cannot be interpreted as absolute evidence of the presence or absence of malignant disease. Performed At: [facility] [id number] Jacques Ferrell MD Ph:[phone] Performed By: #### C BC, MDW, MG, ADIFF, GFR, CMP, ANEU #### [facility] [address] [place], [place] [address] LABORATORYOrdered By: SYSTEM SYSTEM on 02-22-2025 Albumin [...] 02-22-2025 Magnesium [Mass/Vol] 1.8 mg/dL Normal 1.8-2.4 [facility] Comment on above: Performed By: #### C BC, MDW, MG, ADIFF, GFR, CMP, ANEU #### [place] [address] .Auto Diffon 06-04-2025 Basophil, Absolute 0.0 10 3/mcL Normal 0.0-0.3 [facility] Comment on above: Performed By: #### C LYNSEY, KYUNG, MG, ADIFF, GFR, CMP, ANEU #### [address] [address] Basophils/100 WBC (Bld) 0.6 % Normal 0.0-2.5 [facility] Comment on above: Performed By: #### C BC, W, MG, ADIFF, GFR, CMP, ANEU #### [address] [address] Eosinophil, Absolute 0.1 10 3/mcL Normal 0.0-0.7 [facility] Comment on above: Performed By: #### C LYNSEY, KYUNG, MG, ADIFF, GFR, CMP, ANEU #### [address] [address] Eosinophils/100 WBC (Bld) 2.4 % Normal 0.0-6.0 [facility] Comment on above: Performed By: #### C KYUNG MENON, MG, ADIFF, GFR, CMP, ANEU #### [address] [address] Lymphocyte, Absolute 1.5 10 3/mcL Normal 0.9-4.3 [facility] Comment on above: Performed By: #### C LYNSEY, W, MG, ADIFF, GFR, CMP, ANEU #### [address] [address] Lymphocytes/100 WBC (Bld) 24.4 % Normal 20.0-40.0 [facility] Comment on above: Performed By: #### C LYNSEY, KYUNG, MG, ADIFF, GFR, CMP, ANEU #### [address] [address] Monocyte, Absolute 0.4 10 3/mcL Normal 0.1-1.4 [facility] Comment on above: Performed By: #### C LYNSEY, W, MG, ADIFF, GFR, CMP, ANEU #### [address] [address] Monocytes/100 WBC (Bld) 6.1 % Normal 2.0-13.0 [facility] Comment on above: Performed By: #### C KYUNG MENON, MG, ADIFF, GFR, CMP, ANEU #### [address] [address] Neutrophils/100 WBC (Bld) 66.5 % Normal 50.0-75.0 [facility] Comment on above: Performed By: #### C KYUNG MENON, MG, ADIFF, GFR, CMP, ANEU #### [address] [address] .GFRon 02-21-2025 Estimated Glomerular Filtration Rate 31 ml/min/1.73sqm Normal [facility] Comment on above: Result Comment: Stages [...] MENON, MG, ADIFF, GFR, CMP, ANEU #### [address] [address] .NEUABSon 02-21-2025 Neutrophil, Absolute 4.0 10 3/mcL Normal 2.3-8.1 [facility] Comment on above: Performed By: #### C KYUNG MENON, MG, ADIFF, GFR, CMP, ANEU #### [place] [address] [place], [place] [address] B12on 02-21-2025 Cobalamin (Vitamin B12) [Mass/Vol] 1629 pg/mL High 211-911 [facility] Comment on above: Performed By: #### C KYUNG MENON, MG, ADIFF, GFR, CMP, ANEU #### [address] [address] BMPon 02-21-2025 BUN/Creatinine Ratio 15 ratio Normal 7-27 [facility] Comment on above: Performed By: #### C LYNSEY, KYUNG, MG, ADIFF, GFR, CMP, ANEU #### [place] [address] Calcium [Mass/Vol] 9.3 mg/dL Normal 8.4-10.2 [facility] Comment on above: Performed By: #### C KYUNG MENON, MG, ADIFF, GFR, CMP, ANEU #### [place] [address] Chloride [Moles/Vol] 106 mmol/L Normal 98-107 [facility] Comment on above: Performed By: #### C KYUNG MENON, MG, ADIFF, GFR, CMP, ANEU #### [place] [id number] CO2 [Moles/Vol] 29 mmol/L Normal 23-31 [facility] Comment on above: Performed By: #### C KYUNG MENON, MG, ADIFF, GFR, CMP, ANEU #### [address] [address] Creatinine [Mass/Vol] 2.09 mg/dL High 0.67-1.17 [facility] Comment on above: Performed By: #### C KYUNG MENON, MG, ADIFF, GFR, CMP, ANEU #### [address] [address] Electrolyte Balance 6.0 mEq/L Normal 4.0-15.0 [facility] Comment on above: Performed By: #### C KYUNG MENON, MG, ADIFF, GFR, CMP, ANEU #### [place] [address] Glucose [Mass/Vol] 110 mg/dL Normal 83-110 [facility] Comment on above: Performed By: #### C KYUNG MENON, MG, ADIFF, GFR, CMP, ANEU #### [address] [address] Potassium [Moles/Vol] 6.0 mmol/L High 3.5-5.1 [facility] Comment on above: Performed By: #### C KYUNG MENON, MG, ADIFF, GFR, CMP, ANEU #### [place] [address] Sodium [Moles/Vol] 141 mmol/L Normal 136-145 [facility] Comment on above: Performed By: #### C KYUNG MENON, MG, ADIFF, GFR, CMP, ANEU #### [place] [address] Urea nitrogen [Mass/Vol] 32 mg/dL High 7-18 [facility] Comment on above: Performed By: #### C KYUNG MENON, MG, ADIFF, GFR, CMP, ANEU #### [place] [address] CBCon 02-21-2025 Erythrocyte distribution width (RBC) [Ratio] 15.6 % High 11.5-15.5 [facility] Comment on above: Performed By: #### C KYUNG MENON, MG, ADIFF, GFR, CMP, ANEU #### [place] [address] Hematocrit (Bld) [Volume fraction] 32.6 % Low 40.0-52.0 [facility] Comment on above: Performed By: #### C KYUNG MENON, MG, ADIFF, GFR, CMP, ANEU #### [place] [address] Hgb 10.9 G/dL Low 13.0-17.5 [facility] Comment on above: Performed By: #### C KYUNG MENON, MG, ADIFF, GFR, CMP, ANEU #### [place] [address] MCH (RBC) [Entitic mass] 29.8 pg Normal 27.0-33.0 [facility] Comment on above: Performed By: #### C KYUNG MENON, MG, ADIFF, GFR, CMP, ANEU #### [address] [address] MCHC 33.3 G/dL Normal 32.0-36.0 [facility] Comment on above: Performed By: #### C KYUNG MENON, MG, ADIFF, GFR, CMP, ANEU #### [place] [address] MCV (RBC) [Entitic vol] 89.5 fL Normal 81.0-100.0 [facility] Comment on above: Performed By: #### C KYUNG MENON, MG, ADIFF, GFR, CMP, ANEU #### [address] [address] Platelet 99 10 3/mcL Low 150-450 [facility] Comment on above: Performed By: #### C KYUNG MENON, MG, ADIFF, GFR, CMP, ANEU #### [place] [address] Platelet mean volume (Bld) [Entitic vol] 7.3 fL Normal 6.4-10.5 [facility] Comment on above: Performed By: #### C KYUNG MENON, MG, ADIFF, GFR, CMP, ANEU #### [place] [id number] RBC 3.65 10 6/mcL Low 4.50-6.00 [facility] Comment on above: Performed By: #### C KYUNG MENON, MG, ADIFF, GFR, CMP, ANEU #### [place] [id number] WBC 6.0 10 3/mcL Normal 4.5-10.8 [facility] Comment on above: Performed By: #### C KYUNG MENON, MG, ADIFF, GFR, CMP, ANEU #### [place] [id number] Jimmy 02-21-2025 Fasting Y Yes Normal [facility] Comment on above: Performed By: #### C BC, MDW, MG, ADIFF, GFR, CMP, ANEU #### [place] [address] [place], [place] [address] LABORATORYOrdered By: SYSTEM SYSTEM on 02-21-2025 25-hydroxyvitamin [...] PM) Normal AO Sendouts SS LABORATORYOrdered By: [employer] P CONTRIBUTOR_SYSTEM on 02-21-2025 Gastrin (LC) 113 pg/mL Invalid Interpretation Code AO Sendouts SS Comment on above: Result Comment: [facility] [employer] 2000 Immunochemiluminometric assay (ICMA) Values obtained with different assay methods or kits cannot be used interchangeably. Results cannot be interpreted as absolute evidence of the presence or absence of malignant disease. Performed At: [facility] [id number] Jacques Ferrell MD Ph:[phone] Intrinsic Factor Abs (LC) 0.9 Au/mL Invalid Interpretation Code 0.0-1.1 AO [facility] SS Comment on above: Result Comment: Perf ormed At: [employer] [id number] Jacques Ferrell MD Ph:[phone] MGon 02-21-2025 Magnesium [Mass/Vol] 1.9 mg/dL Normal 1.8-2.4 [facility] Comment on above: Performed By: #### C KYUNG MENON, MG, ADIFF, GFR, CMP, ANEU #### [facility] [address] [place], [place] [address] PTHon 02-21-2025 PTH, Intact 170.3 pg/mL High 18.5-88.0 [facility] Comment on above: Performed By: #### C KYUNG MENON, MG, ADIFF, GFR, CMP, ANEU #### [facility] [address] [place], [place] [address] VIDHon 02-21-2025 Vit. D 25-Hydroxy 32.7 ng/mL Normal [facility] Comment on above: Result Comment: Inte rpretive Values Based on Total 25([place]) Vitamin D: Deficient <20 ng/mL Insufficient 20 - <30 ng/mL Sufficient 30-100 ng/mL Performed By: #### C KYUNG MENON, MG, ADIFF, GFR, CMP, ANEU #### [facility] [address] [place], [place] [address] Cardiology Visit Reporton Cardiology Visit Report [facility]. 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 Required: No Accompanied by: Daughter Is patient [...] 02/16/25 Hi story gram oral powder packet ([facility]) lisinopril 20 mg tablet 20 mg [...] infarction Essential hypertension Atherosclerotic heart disease of [place] coronary artery without angina pectoris Postoperative atrial [...] rarely substance use type: does not use arelis/episcopalian: [place] seatbelt use: always ROS Const Const: Positive for fatigue (Increasing last couple months, relates to age); Negative for weakness Eyes Eyes: Negative for change in vision ENT ENT: Negative for dizziness or balance problems Cardio (more content not included)... Normal [facility] Bilirubin directOrdered By: Maryuri Begum on 02-08-2025 Bilirubin.direct [Mass/Vol] 0.26 mg/dL 0.00-0.30 [facility] Bilirubin, totalOrdered By: Maryuri Begum on 02-08-2025 Bilirubin [Mass/Vol] 0.48 mg/dL 0.00-1.30 [facility] Calculated very low density lipoprotein (VLDL) cholesterol measurementOrdered By: Maryuri Begum on 02-08-2025 Calculated very low density lipoprotein (VLDL) cholesterol measurement 18 mg/dL 5-40 [facility] LDL calc ser/plasOrdered By: Maryuri Begum on 02-08-2025 Cholesterol in LDL [Mass/Vol] 25 mg/dL [facility] Comment on above: Mgtvhetjdl=155-967 m g/dL & Higher Cmou=682 mg/dL or greater Laboratory - Chemistry and C hemistry - challengeOrdered By: Maryuri Begum on 02-08-2025 AST [Catalytic activity/Vol] 16 U/L <38 [facility] Lipid Profileon 02-08-2025 CHOL:HDL 2.13 Normal [facility] Comment on above: Performed By: #### L 500.3400, L500.4100 #### [facility] [address] [place], [address] Cholesterol [Mass/Vol] 80 mg/dL Normal <=200 [facility] Comment on above: Result Comment: Chol esterol level, Desirable <200 mg/dL Borderline high cholesterol 200-239 mg/dL High cholesterol >=240 mg/dL Recommendations of the NCEP Adult Treatment Panel for the following risk-cutoff thresholds for the [place] population. Performed By: #### L 500.3400, L500.4100 #### [facility] [address] [place], [address] Cholesterol in HDL [Mass/Vol] 38 mg/dL Low [facility] Comment on above: Result Comment: Daphney onal Cholesterol Education Program (NCEP) guidelines: <40 mg/dL: Low HDL-cholesterol (major risk factor for CHD) >= 60 mg/dL: High HDL-cholesterol (negative risk factor for CHD) HDL-cholesterol is affected by a number of factors, e.g. smoking, exercise, hormones, sex and age. Performed By: #### L 500.3400, L500.4100 #### [facility] [address] [place], [address] Cholesterol in LDL [Mass/Vol] 25 mg/dL Normal [facility] Comment on above: Result Comment: Bord hvvjxe=859-509 mg/dL Higher Egol=748 mg/dL or greater Performed By: #### L 500.3400, L500.4100 #### [facility] [address] [place], [address] Cholesterol in VLDL [Mass/Vol] 18 mg/dL Normal 5-40 [facility] Comment on above: Performed By: #### L 500.3400, L500.4100 #### [facility] [address] [place], [address] Triglyceride [Mass/Vol] 89 mg/dL Normal [facility] Comment on above: Result Comment: The drugs N-Acetylcysteine and Metamizole may falsely depress this assay. Normal range: <150 mg/dL Borderline High: 150-199 mg/dL High: 200-499 mg/dL Very High: >500 mg/dL Performed By: #### L 500.3400, L500.4100 #### [facility] [address] [place], [address] Liver Profileon 02-08-2025 Albumin [Mass/Vol] 3.9 g/dL Normal 3.4-4.8 [facility] Comment on above: Performed By: #### L 500.3400, L500.4100 #### [facility] [address] [place], [address] ALK PHOS 89 U/L Normal 40-129 [facility] Comment on above: Performed By: #### L 500.3400, L500.4100 #### [facility] [address] [place], [address] ALT [Catalytic activity/Vol] 6 U/L Normal <=46 [facility] Comment on above: Performed By: #### L 500.3400, L500.4100 #### [facility] [address] [place], [address] AST [Catalytic activity/Vol] 16 U/L Normal <=37 [facility] Comment on above: Performed By: #### L 500.3400, L500.4100 #### [facility] [address] [place], [address] Bilirubin [Mass/Vol] 0.48 mg/dL Normal 0.00-1.30 [facility] Comment on above: Performed By: #### L 500.3400, L500.4100 #### [facility] [address] [place], [address] Bilirubin.direct [Mass/Vol] 0.26 mg/dL Normal 0.00-0.30 [facility] Comment on above: Performed By: #### L 500.3400, L500.4100 #### [facility] [address] [place], [address] Globulin (S) [Mass/Vol] 2.5 g/dL Normal 2.2-4.[address] [facility] Comment on above: Performed By: #### L 500.3400, L500.4100 #### [facility] [address] [place], [address] T PROT 6.5 g/dL Normal 5.9-8.4 [facility] Comment on above: Performed By: #### L 500.3400, L500.4100 #### [facility] [address] [place], [address] Screening total cholesterol/ high density lipoprotein (HDL) cholesterol ratioOrdered By: Maryuri Begum on 02-08-2025 Cholesterol.total/Choles terol in HDL [Mass ratio] 2.13 {ratio} [facility] Serum globulin measurementOr dered By: Maryuri Begum on 02-08-2025 Globulin (S) [Mass/Vol] 2.5 g/dL 2.2-4.2 [facility] Serum or plasma alanine mora otransferase (ALT) measurementOrdered By: Maryuri Begum on 02-08-2025 ALT [Catalytic activity/Vol] 6 U/L <47 [facility] Serum or plasma albumin francisco urement (mass/volume)Ordered By: Maryuri Begum on 02-08-2025 Albumin [Mass/Vol] 3.9 g/dL 3.4-4.8 [facility] Serum or plasma alkaline edna sphatase measurementOrdered By: Maryuri Begum on 02-08-2025 ALP [Catalytic activity/Vol] 89 U/L 40-129 [facility] Serum or plasma cholesterol in HDL measurement (mass/volume)Ordered By: Maryuri Begum on 02-08-2025 Cholesterol in HDL [Mass/Vol] 38 mg/dL Low >40 [facility] Comment on above: National Cholesterol Education Program (NCEP) guidelines:<40 mg/dL: Low HDL-cholesterol (major risk factor for CHD)>= 60 mg/dL: High HDL-cholesterol (negative risk factor for CHD)HDL-cholesterol is affected by a number of factors, e.g. smoking, exercise, hormones, sex and age. Serum or plasma cholesterol measurement (mass/volume)Ordered By: Maryuri Begum on 02-08-2025 Cholesterol [Mass/Vol] 80 mg/dL <201 [facility] [place] [facility] Comment on above: Cholesterol level, D esirable <200 mg/dLBorderline high cholesterol 200-239 mg/dLHigh cholesterol >=240 mg/dLRecommendations of the NCEP Adult Treatment Panel for the following risk-cutoff thresholds for the [place] population. Total proteinOrdered By: Terell Begum on 02-08-2025 Protein [Mass/Vol] 6.5 g/dL 5.9-8.4 [facility] Triglycerides measurementOrd ered By: Maryuri Begum on 02-08-2025 Triglyceride [Mass/Vol] 89 mg/dL <199 [facility] Comment on above: The drugs N-Acetylcy steine and Metamizole may falsely depress this assay. Normal range: <150 mg/dLBorderline High: 150-199 mg/dLHigh: 200-499 mg/dLVery High: >500 mg/dL Neurology Visit Reporton Neurology Visit Report [facility] [address] [facility], [address] [place] [id number] OFFICE VISIT Date of Service: 11/29/24 MR#: [id number] Acct: [id number] Name: EKATERINA RANDHAWA Rep #: [id number] : 1940 Provider: Dr. 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 He [...] dysfunction (pseudonormal (more content not included)... Normal [facility] Urgent Care Visit Reporton 0 11-16-2024 Urgent Care Visit Report [facility] [address] [facility], [address] [place] [address] OFFICE VISIT Date of Service: 11/16/24 MR#: [id number] Acct: [id number] Name: EKATERINA RANDHAWA Rep #: [id number] : 1940 Provider: DG Manning Age/Sex: 84/M Location: [facility] Status: Signed Intake Vital Signs 03/02/24 08:13 [...] and on. Patient states he has RLS. 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 Normal [facility] .Auto Diffon 11-01-2024 Basophil, Absolute 0.0 10 3/mcL Normal 0.0-0.2 [facility] Comment on above: Performed By: #### C LYNSEY, KYUNG, MG, ADIFF, GFR, CMP, ANEU #### [address] [address] Basophils/100 WBC (Bld) 0.6 % Normal 0.0-2.5 [facility] Comment on above: Performed By: #### C KYUNG MENON, MG, ADIFF, GFR, CMP, ANEU #### [address] [address] Eosinophil, Absolute 0.2 10 3/mcL Normal 0.0-0.7 [facility] Comment on above: Performed By: #### C KYUNG MENON, MG, ADIFF, GFR, CMP, ANEU #### [address] [address] Eosinophils/100 WBC (Bld) 2.8 % Normal 0.0-7.0 [facility] Comment on above: Performed By: #### C KYUNG MENON, MG, ADIFF, GFR, CMP, ANEU #### [address] [address] Lymphocyte, Absolute 1.6 10 3/mcL Normal 0.9-4.3 [facility] Comment on above: Performed By: #### C KYUNG MENON, MG, ADIFF, GFR, CMP, ANEU #### [address] [address] Lymphocytes/100 WBC (Bld) 25.7 % Normal 20.0-40.0 [facility] Comment on above: Performed By: #### C LYNSEY, W, MG, ADIFF, GFR, CMP, ANEU #### [address] [address] Monocyte, Absolute 0.4 10 3/mcL Normal 0.1-1.4 [facility] Comment on above: Performed By: #### C BC, MDW, MG, ADIFF, GFR, CMP, ANEU #### [address] [address] Monocytes/100 WBC (Bld) 6.6 % Normal 2.0-13.0 [facility] Comment on above: Performed By: #### C LYNSEY, W, MG, ADIFF, GFR, CMP, ANEU #### [address] [address] Neutrophils/100 WBC (Bld) 64.3 % Normal 50.0-75.0 [facility] Comment on above: Performed By: #### C LYNSEY, W, MG, ADIFF, GFR, CMP, ANEU #### [address] [address] .GFRon 11-01-2024 Estimated Glomerular Filtration Rate 27 ml/min/1.73sqm Normal [facility] Comment on above: Result Comment: Stages [...] MDW, MG, ADIFF, GFR, CMP, ANEU #### [address] [address] .NEUABSon 11-01-2024 Neutrophil, Absolute 4.0 10 3/mcL Normal 2.3-8.1 [facility] Comment on above: Performed By: #### C KYUNG MENON, MG, ADIFF, GFR, CMP, ANEU #### [address] [address] BMPon 11-01-2024 BUN/Creatinine Ratio 13 ratio Normal 7-27 [facility] Comment on above: Performed By: #### C KYUNG MENON, MG, ADIFF, GFR, CMP, ANEU #### [address] [address] Calcium [Mass/Vol] 9.7 mg/dL Normal 8.4-10.2 [facility] Comment on above: Performed By: #### C KYUNG MENON, MG, ADIFF, GFR, CMP, ANEU #### [address] [address] Chloride [Moles/Vol] 108 mmol/L High 98-107 [facility] Comment on above: Performed By: #### C KYUNG MENON, MG, ADIFF, GFR, CMP, ANEU #### [address] [address] CO2 [Moles/Vol] 29 mmol/L Normal 23-31 [facility] Comment on above: Performed By: #### C KYUNG MENON, MG, ADIFF, GFR, CMP, ANEU #### [address] [address] Creatinine [Mass/Vol] 2.31 mg/dL High 0.70-1.30 [facility] Comment on above: Result Comment: Test ing performed on Siemens Dimension EXL analyzer using a modified kinetic Sonia technique. Performed By: #### C KYUNG MENON, MG, ADIFF, GFR, CMP, ANEU #### [address] [address] Electrolyte Balance 8.0 mEq/L Normal 4.0-15.0 [facility] Comment on above: Performed By: #### C KYUNG MENON, MG, ADIFF, GFR, CMP, ANEU #### [address] [address] Glucose [Mass/Vol] 111 mg/dL High 83-110 [facility] Comment on above: Performed By: #### C KYUNG MENON, MG, ADIFF, GFR, CMP, ANEU #### [address] [address] Potassium [Moles/Vol] 5.0 mmol/L Normal 3.5-5.1 [facility] Comment on above: Performed By: #### C KYUNG MENON, MG, ADIFF, GFR, CMP, ANEU #### [address] [address] Sodium [Moles/Vol] 145 mmol/L Normal 136-145 [facility] Comment on above: Performed By: #### C KYUNG MENON, MG, ADIFF, GFR, CMP, ANEU #### [place] [address] Urea nitrogen [Mass/Vol] 30 mg/dL High 7-18 [facility] Comment on above: Performed By: #### C KYUNG MENON, MG, ADIFF, GFR, CMP, ANEU #### [address] [address] CBCon 11-01-2024 Erythrocyte distribution width (RBC) [Ratio] 16.6 % High 11.5-15.5 [facility] Comment on above: Performed By: #### C KYUNG MENON, MG, ADIFF, GFR, CMP, ANEU #### [address] [address] Hematocrit (Bld) [Volume fraction] 34.4 % Low 40.0-52.0 [facility] Comment on above: Performed By: #### C KYUNG MENON, MG, ADIFF, GFR, CMP, ANEU #### [address] [address] Hgb 11.5 G/dL Low 13.0-17.5 [facility] Comment on above: Performed By: #### C KYUNG MENON, MG, ADIFF, GFR, CMP, ANEU #### [address] [address] MCH (RBC) [Entitic mass] 29.3 pg Normal 27.0-33.0 [facility] Comment on above: Performed By: #### C KYUNG MENON, MG, ADIFF, GFR, CMP, ANEU #### [address] [address] MCHC 33.4 G/dL Normal 32.0-36.0 [facility] Comment on above: Performed By: #### C KYUNG MENON, MG, ADIFF, GFR, CMP, ANEU #### [place] [address] MCV (RBC) [Entitic vol] 87.9 fL Normal 81.0-100.0 [facility] Comment on above: Performed By: #### C KYUNG MENON, MG, ADIFF, GFR, CMP, ANEU #### [place] [address] Platelet 90 10 3/mcL Low 150-450 [facility] Comment on above: Performed By: #### C KYUNG MENON, MG, ADIFF, GFR, CMP, ANEU #### [address] [address] Platelet mean volume (Bld) [Entitic vol] 7.9 fL Normal 6.4-10.5 [facility] Comment on above: Performed By: #### C KYUNG MENON, MG, ADIFF, GFR, CMP, ANEU #### [address] [address] RBC 3.91 10 6/mcL Low 4.50-6.00 [facility] Comment on above: Performed By: #### C KYUNG MENON, MG, ADIFF, GFR, CMP, ANEU #### [address] [address] WBC 6.2 10 3/mcL Normal 4.5-10.8 [facility] Comment on above: Performed By: #### C BC, MDW, MG, ADIFF, GFR, CMP, ANEU #### [place] [address] LABORATORYOrdered By: Leidy Gomez on 11-01-2024 Creatinine [...] PTH, Intact 194.7 pg/mL High 18.5-88.0 [facility] Comment on above: Performed By: #### C KYUNG MENON, MG, ADIFF, GFR, CMP, ANEU #### [address] [address] RPCURon 11-01-2024 U Creatinine 88.0 mg/dL Normal [facility] Comment on above: Performed By: #### R PCUR #### [address] [address] U Protein 26 mg/dL Normal [facility] Comment on above: Performed By: #### R PCUR #### [address] [address] U Ratio Prot/Creat 0.3 ratio Normal [facility] Comment on above: Performed By: #### R PCUR #### [address] [address] URICon 11-01-2024 Uric Acid Lvl 7.2 mg/dL Normal 3.5-7.2 [facility] Comment on above: Performed By: #### C LYNSEY, KYUNG, MG, ADIFF, GFR, CMP, ANEU #### [place] [address] [place], [place] [address] VIDHon 11-01-2024 Vit. D 25-Hydroxy 23.4 ng/mL Normal [facility] Comment on above: Result Comment: Inte rpretive Values Based on Total 25([place]) Vitamin D: Deficient <20 ng/mL Insufficient 20 - <30 ng/mL Sufficient 30-100 ng/mL Performed By: #### C LYNSEY, KYUNG, MG, ADDEMETRIS, GFR, CMP, ANEU #### [place] [address] [place], [place] [address] CNOVSPon 09-12-2024 CNOVSP Visit (SP) Office (HEMAWS) ----- EKATERINA RANDHAWA ([id number]) 1940 M Date Time Provider Department 09/12/24 [...] which included preparing to see the patient, [id number] patient care, completing clinical documentation, obtaining and/or reviewing separately obtained history, counseling and educating the patient/family/caregiver, ordering medications, tests, or procedures, independently interpreting results (not separately reported), and communicating results to the patient/family/caregiver. Electronically Signed: Toney Gutierrez MD September 12, 2024 10:42 AM Referring Provider: JLUIS NICHOLE [[id number]] Allergies As of Date: 09/12/2024 (No Known Allergies) Date Reviewed: 09/12/2024 Reviewed by: Carrie García Ma, MA - Fully Assessed Reason for Visit: New Patient Evaluation [154] Primary Visit Diagnosis:Thrombocytopeni a (HCC) [D69.6] Other Visit Diagnosis:Anemia, unspecified type [D64.9] Order(s):COMPLETE BLOOD COUNT AND DIFFERENTIAL [SQCBCDIF] Order #: [id number] FUTURE ACTIVATED PARTIAL THROMBOPLASTIN TIME [SQPTT] Order #: [id number] FUTURE PROTHROMBIN TIME [SQPT] Order #: [id number] FUTURE Disposition: Return in about 4 months (more content not included)... Normal [facility] .Auto Diffon 08-11-2024 Basophil, Absolute 0.0 10 3/mcL Normal 0.0-0.2 [facility] Comment on above: Performed By: #### C KYUNG MENON, MG, ADIFF, GFR, CMP, ANEU #### [place] [address] [place], [place] [address] Basophils/100 WBC (Bld) 0.6 % Normal 0.0-2.5 [facility] Comment on above: Performed By: #### C KYUNG MENON, MG, ADIFF, GFR, CMP, ANEU #### [address] [address] Eosinophil, Absolute 0.1 10 3/mcL Normal 0.0-0.7 [facility] Comment on above: Performed By: #### C KYUNG MENON, MG, ADIFF, GFR, CMP, ANEU #### [address] [address] Eosinophils/100 WBC (Bld) 1.6 % Normal 0.0-7.0 [facility] Comment on above: Performed By: #### C KYUNG MENON, MG, ADIFF, GFR, CMP, ANEU #### [address] [address] Lymphocyte, Absolute 1.3 10 3/mcL Normal 0.9-4.3 [facility] Comment on above: Performed By: #### C KYUNG MENON, MG, ADIFF, GFR, CMP, ANEU #### [address] [address] Lymphocytes/100 WBC (Bld) 20.5 % Normal 20.0-40.0 [facility] Comment on above: Performed By: #### C KYUNG MENON, MG, ADIFF, GFR, CMP, ANEU #### [address] [address] Monocyte, Absolute 0.4 10 3/mcL Normal 0.1-1.4 [facility] Comment on above: Performed By: #### C KYUNG MENON, MG, ADIFF, GFR, CMP, ANEU #### [address] [address] Monocytes/100 WBC (Bld) 6.7 % Normal 2.0-13.0 [facility] Comment on above: Performed By: #### C KYUNG MENON, MG, ADIFF, GFR, CMP, ANEU #### [address] [address] Neutrophils/100 WBC (Bld) 70.6 % Normal 50.0-75.0 [facility] Comment on above: Performed By: #### C KYUNG MENON, MG, ADIFF, GFR, CMP, ANEU #### [address] [address] .GFRon 08-11-2024 GFR 33 ml/min/1.73sqm Normal [facility] Comment on above: Result Comment: GFR [...] MENON, MG, ADIFF, GFR, CMP, ANEU #### [address] [address] GFR Non- 27 ml/min/1.73sqm Normal [facility] Comment on above: Result Comment: GFR [...] MENON, MG, ADIFF, GFR, CMP, ANEU #### [address] [address] .NEUABSon 08-11-2024 Neutrophil, Absolute 4.6 10 3/mcL Normal 2.3-8.1 [facility] Comment on above: Performed By: #### C KYUNG MENON, MG, ADIFF, GFR, CMP, ANEU #### [place] [address] B12on 08-11-2024 Cobalamin (Vitamin B12) [Mass/Vol] 360 pg/mL Normal 211-911 [facility] Comment on above: Performed By: #### C KYUNG MENON, MG, ADIFF, GFR, CMP, ANEU #### [place] [address] CBCon 08-11-2024 Erythrocyte distribution width (RBC) [Ratio] 15.2 % Normal 11.5-15.5 [facility] Comment on above: Performed By: #### C KYUNG MENON, MG, ADIFF, GFR, CMP, ANEU #### [place] [address] Hematocrit (Bld) [Volume fraction] 34.5 % Low 40.0-52.0 [facility] Comment on above: Performed By: #### C KYUNG MENON, MG, ADIFF, GFR, CMP, ANEU #### [place] [address] Hgb 11.4 G/dL Low 13.0-17.5 [facility] Comment on above: Performed By: #### C KYUNG MENON, MG, ADIFF, GFR, CMP, ANEU #### [place] [address] MCH (RBC) [Entitic mass] 29.4 pg Normal 27.0-33.0 [facility] Comment on above: Performed By: #### C KYUNG MENON, MG, ADIFF, GFR, CMP, ANEU #### [place] [address] MCHC 33.1 G/dL Normal 32.0-36.0 [facility] Comment on above: Performed By: #### C KYUNG MENON, MG, ADIFF, GFR, CMP, ANEU #### [address] [address] MCV (RBC) [Entitic vol] 88.9 fL Normal 81.0-100.0 [facility] Comment on above: Performed By: #### C LYNSEY, KYUNG, MG, ADIFF, GFR, CMP, ANEU #### [address] [address] Platelet 91 10 3/mcL Low 150-450 [facility] Comment on above: Performed By: #### C LYNSEY, W, MG, ADIFF, GFR, CMP, ANEU #### [address] [address] Platelet mean volume (Bld) [Entitic vol] 7.6 fL Normal 6.4-10.5 [facility] Comment on above: Performed By: #### C KYUNG MENON, MG, ADIFF, GFR, CMP, ANEU #### [address] [address] RBC 3.88 10 6/mcL Low 4.50-6.00 [facility] Comment on above: Performed By: #### C KYUNG MENON, MG, ADIFF, GFR, CMP, ANEU #### [address] [address] WBC 6.5 10 3/mcL Normal 4.5-10.8 [facility] Comment on above: Performed By: #### C KYUNG MENON, MG, ADIFF, GFR, CMP, ANEU #### [address] [address] CMPon 08-11-2024 Albumin Level 4.0 G/dL Normal 3.4-4.8 [facility] Comment on above: Performed By: #### C KYUNG MENON, MG, ADIFF, GFR, CMP, ANEU #### [address] [address] Albumin/Globulin [Mass ratio] 1.7 {ratio} Normal 1.1-2.5 [facility] Comment on above: Performed By: #### C KYUNG MENON, MG, ADIFF, GFR, CMP, ANEU #### [address] [address] ALP [Catalytic activity/Vol] 72 U/L Normal 40-135 [facility] Comment on above: Performed By: #### C KYUNG MENON, MG, ADIFF, GFR, CMP, ANEU #### [address] [address] ALT [Catalytic activity/Vol] 17 U/L Normal 16-63 [facility] Comment on above: Performed By: #### C KYUNG MENON, MG, ADIFF, GFR, CMP, ANEU #### [place] [id number] AST [Catalytic activity/Vol] 14 U/L Normal 10-40 [facility] Comment on above: Performed By: #### C KYUNG MENON, MG, ADIFF, GFR, CMP, ANEU #### [place] [id number] Bili Total 0.7 mg/dL Normal 0.2-1.0 [facility] Comment on above: Result Comment: Use of this assay is not recommended for patients undergoing treatment with eltrombopag due to the potential for falsely elevated results. Performed By: #### C KYUNG MENON, MG, ADIFF, GFR, CMP, ANEU #### [address] [address] BUN/Creatinine Ratio 12 ratio Normal 7-27 [facility] Comment on above: Performed By: #### C KYUNG MENON, MG, ADIFF, GFR, CMP, ANEU #### [address] [address] Calcium [Mass/Vol] 8.9 mg/dL Normal 8.4-10.2 [facility] Comment on above: Performed By: #### C KYUNG MENON, MG, ADIFF, GFR, CMP, ANEU #### [address] [address] Chloride [Moles/Vol] 107 mmol/L Normal 98-107 [facility] Comment on above: Performed By: #### C LYNSEY, W, MG, ADIFF, GFR, CMP, ANEU #### [address] [address] CO2 [Moles/Vol] 26 mmol/L Normal 23-31 [facility] Comment on above: Performed By: #### C LYNSEY, W, MG, ADIFF, GFR, CMP, ANEU #### [place] [id number] Creatinine [Mass/Vol] 2.31 mg/dL High 0.70-1.30 [facility] Comment on above: Result Comment: Test ing performed on Siemens Dimension EXL analyzer using a modified kinetic Sonia technique. Performed By: #### C LYNSEY, W, MG, ADIFF, GFR, CMP, ANEU #### [place] [address] Electrolyte Balance 9.0 mEq/L Normal 4.0-15.0 [facility] Comment on above: Performed By: #### C LYNSEY, KYUNG, MG, ADIFF, GFR, CMP, ANEU #### [place] [address] Globulin 2.4 G/dL Normal [facility] Comment on above: Performed By: #### C LYNSEY, W, MG, ADIFF, GFR, CMP, ANEU #### [place] [address] Glucose [Mass/Vol] 111 mg/dL High 83-110 [facility] Comment on above: Performed By: #### C LYNSEY, W, MG, ADIFF, GFR, CMP, ANEU #### [address] [address] Potassium [Moles/Vol] 4.7 mmol/L Normal 3.5-5.1 [facility] Comment on above: Performed By: #### C LYNSEY, W, MG, ADIFF, GFR, CMP, ANEU #### [place] [address] Sodium [Moles/Vol] 142 mmol/L Normal 136-145 [facility] Comment on above: Performed By: #### C KYUNG MENON, MG, ADIFF, GFR, CMP, ANEU #### [address] [address] Total Protein 6.4 G/dL Normal 6.4-8.2 [facility] Comment on above: Performed By: #### C KYUNG MENON, MG, ADIFF, GFR, CMP, ANEU #### [address] [address] Urea nitrogen [Mass/Vol] 28 mg/dL High 7-18 [facility] Comment on above: Performed By: #### C KYUNG MENON, MG, ADIFF, GFR, CMP, ANEU #### [address] [address] Jose 08-11-2024 Ferritin [Mass/Vol] 28.0 ng/mL Normal 26.0-388.0 [facility] Comment on above: Performed By: #### C KYUNG MENON, MG, ADIFF, GFR, CMP, ANEU #### [address] [address] FESon 08-11-2024 Iron [Mass/Vol] 83 ug/dL Normal 65-175 [facility] Comment on above: Performed By: #### C KYUNG MENON, MG, ADIFF, GFR, CMP, ANEU #### [address] [address] Iron Sat 26 % Normal [facility] Comment on above: Performed By: #### C KYUNG MENON, MG, ADIFF, GFR, CMP, ANEU #### [address] [address] TIBC 316 mcg/dL Normal 250-450 [facility] Comment on above: Performed By: #### C KYUNG MENON, MG, ADIFF, GFR, CMP, ANEU #### [address] [address] HCVon 08-11-2024 Hep C Ab Non-Reactive Normal Non-Reacti ve [facility] Comment on above: Performed By: #### C LYNSEY, W, MG, ADIFF, GFR, CMP, ANEU #### [address] [place], [place] [address] Hep C Ab Int Normal [facility] Comment on above: Result Comment: Nonr [...] KYUNG, MG, ADIFF, GFR, CMP, ANEU #### [address] [place], [place] [address] LABORATORYOrdered By: SYSTEM SYSTEM on 08-11-2024 Albumin [...] 08-11-2024 Cholesterol [Mass/Vol] 78 mg/dL Normal 0-200 [facility] Comment on above: Result Comment: Chol esterol Reference Interval: Less than 200 Desirable 200-239 Borderline high risk 240 and above High risk Performed By: #### C KYUNG MENON, MG, ADIFF, GFR, CMP, ANEU #### [address] [address] Cholesterol in HDL [Mass/Vol] 35 mg/dL Low 40-60 [facility] Comment on above: Performed By: #### C KYUNG MENON, MG, ADIFF, GFR, CMP, ANEU #### [address] [address] Cholesterol in LDL [Mass/Vol] 27 mg/dL Normal 0-130 [facility] Comment on above: Performed By: #### C KYUNG MENON, MG, ADIFF, GFR, CMP, ANEU #### [address] [address] Triglyceride [Mass/Vol] 79 mg/dL Normal 0-150 [facility] Comment on above: Result Comment: Trig lyceride Reference Interval: Less than 150 Normal 150-199 Borderline high risk 200-499 High risk 500 or higher Very high risk Performed By: #### C KYUNG MENON, MG, ADIFF, GFR, CMP, ANEU #### [address] [address] MGon 08-11-2024 Magnesium [Mass/Vol] 1.7 mg/dL Low 1.8-2.4 [facility] Comment on above: Performed By: #### C KYUNG MENON, MG, ADIFF, GFR, CMP, ANEU #### [address] [address] PBNPon 08-11-2024 Natriuretic peptide B (Bld) [Mass/Vol] 1518 pg/mL High 0-450 [facility] Comment on above: Result Comment: NT-p roBNP results of less than 300 pg/mL effectively rules out acute congestive heart failure with 99% negative predictive value. Performed By: #### C BC, MDW, MG, ADIFF, GFR, CMP, ANEU #### [address] [place], [place] [address] LABORATORYOrdered By: SYSTEM SYSTEM on 07-07-2024 25-hydroxyvitamin [...] Basophil, Absolute 0.1 10 3/mcL Normal 0.0-0.2 [facility] ([place]) Comment on above: Performed By: #### A DIFF, BMP, ANEU, VIDH, URIC, CBC, GFR #### [place] [address] #### PTH #### [address] [address] Basophils/100 WBC (Bld) 0.7 % Normal 0.0-2.5 [facility] ([place]) Comment on above: Performed By: #### A DIFF, BMP, ANEU, VIDH, URIC, CBC, GFR #### [place] [address] #### PTH #### [address] [address] Eosinophil, Absolute 0.2 10 3/mcL Normal 0.0-0.4 [facility] ([place]) Comment on above: Performed By: #### A DIFF, BMP, ANEU, VIDH, URIC, CBC, GFR #### [place] [address] #### PTH #### [address] [address] Eosinophils/100 WBC (Bld) 2.1 % Normal 0.0-7.0 [facility] ([place]) Comment on above: Performed By: #### A DIFF, BMP, ANEU, VIDH, URIC, CBC, GFR #### [place] [address] #### PTH #### [address] [address] Lymphocyte, Absolute 2.0 10 3/mcL Normal 0.8-3.9 [facility] ([place]) Comment on above: Performed By: #### A DIFF, BMP, ANEU, VIDH, URIC, CBC, GFR #### [place] [address] #### PTH #### [address] [address] Lymphocytes/100 WBC (Bld) 25.0 % Normal 10.0-50.0 [facility] ([place]) Comment on above: Performed By: #### A DIFF, BMP, ANEU, VIDH, URIC, CBC, GFR #### [address] [address] #### PTH #### [address] [address] Monocyte, Absolute 0.5 10 3/mcL Normal 0.2-1.0 [facility] ([place]) Comment on above: Performed By: #### A DIFF, BMP, ANEU, VIDH, URIC, CBC, GFR #### [address] [address] #### PTH #### [address] [address] Monocytes/100 WBC (Bld) 6.0 % Normal 1.7-13.0 [facility] ([place]) Comment on above: Performed By: #### A DIFF, BMP, ANEU, VIDH, URIC, CBC, GFR #### [address] [address] #### PTH #### [address] [address] Neutrophils/100 WBC (Bld) 66.2 % Normal 37.0-80.0 [facility] ([place]) Comment on above: Performed By: #### A DIFF, BMP, ANEU, VIDH, URIC, CBC, GFR #### [address] [address] #### PTH #### [address] [address] .GFRon 02-21-2024 GFR Non- 21 ml/min/1.73sqm Normal [facility] ([place]) Comment on above: Result Comment: [...] BMP, ANEU, VIDH, URIC, CBC, GFR #### [address] [address] #### PTH #### [address] [address] GFR 26 ml/min/1.73sqm Normal [facility] ([place]) Comment on above: Result Comment: GFR Population [...] BMP, ANEU, VIDH, URIC, CBC, GFR #### [address] [address] #### PTH #### [address] [address] .NEUABSon 02-21-2024 Neutrophil, Absolute 5.2 10 3/mcL Normal 2.9-6.2 [facility] ([place]) Comment on above: Performed By: #### A DIFF, BMP, ANEU, VIDH, URIC, CBC, GFR #### [address] [address] #### PTH #### [address] [address] BMPon 02-21-2024 BUN/Creatinine Ratio 13 ratio Normal 7-27 [facility] ([place]) Comment on above: Performed By: #### A DIFF, BMP, ANEU, VIDH, URIC, CBC, GFR #### [address] [address] #### PTH #### [address] [address] Calcium [Mass/Vol] 10.1 mg/dL Normal 8.4-10.2 [facility] ([place]) Comment on above: Performed By: #### A DIFF, BMP, ANEU, VIDH, URIC, CBC, GFR #### [address] [address] #### PTH #### [place] [address] Chloride [Moles/Vol] 105 mmol/L Normal 98-107 [facility] ([place]) Comment on above: Performed By: #### A DIFF, BMP, ANEU, VIDH, URIC, CBC, GFR #### [address] [address] #### PTH #### [place] [address] CO2 [Moles/Vol] 29 mmol/L Normal 23-31 [facility] ([place]) Comment on above: Performed By: #### A DIFF, BMP, ANEU, VIDH, URIC, CBC, GFR #### [address] [address] #### PTH #### [address] [address] Creatinine [Mass/Vol] 2.85 mg/dL High 0.70-1.30 [facility] ([place]) Comment on above: Performed By: #### A DIFF, BMP, ANEU, VIDH, URIC, CBC, GFR #### [address] [address] #### PTH #### [address] [address] Electrolyte Balance 8.0 mEq/L Normal 4.0-15.0 [facility] ([place]) Comment on above: Performed By: #### A DIFF, BMP, ANEU, VIDH, URIC, CBC, GFR #### [address] [address] #### PTH #### [address] [address] Glucose [Mass/Vol] 120 mg/dL High 83-110 [facility] ([place]) Comment on above: Performed By: #### A DIFF, BMP, ANEU, VIDH, URIC, CBC, GFR #### [address] [address] #### PTH #### [address] [address] Potassium [Moles/Vol] 5.0 mmol/L Normal 3.5-5.1 [facility] ([place]) Comment on above: Performed By: #### A DIFF, BMP, ANEU, VIDH, URIC, CBC, GFR #### [address] [address] #### PTH #### [place] [address] Sodium [Moles/Vol] 142 mmol/L Normal 136-145 [facility] ([place]) Comment on above: Performed By: #### A DIFF, BMP, ANEU, VIDH, URIC, CBC, GFR #### [address] [address] #### PTH #### [address] [address] Urea nitrogen [Mass/Vol] 36 mg/dL High 7-18 [facility] ([place]) Comment on above: Performed By: #### A DIFF, BMP, ANEU, VIDH, URIC, CBC, GFR #### [address] [address] #### PTH #### [address] [address] CBCon 02-21-2024 Erythrocyte distribution width (RBC) [Ratio] 14.8 % High 11.5-14.5 [facility] ([place]) Comment on above: Performed By: #### A DIFF, BMP, ANEU, VIDH, URIC, CBC, GFR #### [place] [address] #### PTH #### [place] [address] Hematocrit (Bld) [Volume fraction] 34.7 % Low 42.0-52.0 [facility] ([place]) Comment on above: Performed By: #### A DIFF, BMP, ANEU, VIDH, URIC, CBC, GFR #### [place] [address] #### PTH #### [place] [address] Hgb 11.4 G/dL Low 14.0-18.0 [facility] ([place]) Comment on above: Performed By: #### A DIFF, BMP, ANEU, VIDH, URIC, CBC, GFR #### [place] [address] #### PTH #### [place] [address] MCH (RBC) [Entitic mass] 28.3 pg Normal 27.0-31.2 [facility] ([place]) Comment on above: Performed By: #### A DIFF, BMP, ANEU, VIDH, URIC, CBC, GFR #### [place] [address] #### PTH #### [place] [address] MCHC 32.8 G/dL Normal 31.8-35.4 [facility] ([place]) Comment on above: Performed By: #### A DIFF, BMP, ANEU, VIDH, URIC, CBC, GFR #### [place] [address] #### PTH #### [place] [address] MCV (RBC) [Entitic vol] 86.4 fL Normal 80.0-94.0 [facility] ([place]) Comment on above: Performed By: #### A DIFF, BMP, ANEU, VIDH, URIC, CBC, GFR #### [place] [address] #### PTH #### [place] [address] Platelet 93 10 3/mcL Low 130-400 [facility] ([place]) Comment on above: Performed By: #### A DIFF, BMP, ANEU, VIDH, URIC, CBC, GFR #### [place] [address] #### PTH #### [place] [address] Platelet mean volume (Bld) [Entitic vol] 8.2 fL Normal 7.4-10.4 [facility] ([place]) Comment on above: Performed By: #### A DIFF, BMP, ANEU, VIDH, URIC, CBC, GFR #### [place] [address] #### PTH #### [place] [address] RBC 4.01 10 6/mcL Low 4.04-6.13 [facility] ([place]) Comment on above: Performed By: #### A DIFF, BMP, ANEU, VIDH, URIC, CBC, GFR #### [place] [address] #### PTH #### [place] [address] WBC 7.8 10 3/mcL Normal 4.6-10.8 [facility] ([place]) Comment on above: Performed By: #### A DIFF, BMP, ANEU, VIDH, URIC, CBC, GFR #### [place] [address] #### PTH #### [place] [address] CRURon 02-21-2024 U Creatinine 98.9 mg/dL Normal 39.0-259.0 [facility] ([place]) Comment on above: Performed By: #### A DIFF, BMP, ANEU, VIDH, URIC, CBC, GFR #### [place] [place] [id number] [place], [place] [address] #### PTH #### [address] [address] LABORATORYOrdered By: SYSTEM SYSTEM on 02-21-2024 Creatinine [...] 02-21-2024 U Protein 18 mg/dL High 0-11 [facility] ([place]) Comment on above: Performed By: #### A DIFF, BMP, ANEU, VIDH, URIC, CBC, GFR #### [place] [address] [place], [place] [address] #### PTH #### [address] [address] PTHon 02-21-2024 PTH, Intact 32.4 pg/mL Normal 18.5-88.0 [facility] ([place]) Comment on above: Performed By: #### A DIFF, BMP, ANEU, VIDH, URIC, CBC, GFR #### [address] [address] #### PTH #### [place] [address] URICon 02-21-2024 Uric Acid Lvl 8.8 mg/dL High 3.5-7.2 [facility] ([place]) Comment on above: Performed By: #### A DIFF, BMP, ANEU, VIDH, URIC, CBC, GFR #### [place] [address] #### PTH #### [place] [address] VIDHon 02-21-2024 Vit. D 25-Hydroxy 24.2 ng/mL Normal [facility] ([place]) Comment on above: Result Comment: Inte rpretive Values Based on Total 25([place]) Vitamin D: Deficient <20 ng/mL Insufficient 20 - <30 ng/mL Sufficient 30-100 ng/mL Performed By: #### A DIFF, BMP, ANEU, VIDH, URIC, CBC, GFR #### [place] [address] #### PTH #### [address] [address] .Auto Diffon 10-27-2023 Basophil, Absolute 0.1 10 3/mcL Normal 0.0-0.2 [facility] ([place]) Comment on above: Performed By: #### A DIFF, BMP, ANEU, VIDH, URIC, CBC, GFR #### [address] [address] #### PTH #### [address] [address] Basophils/100 WBC (Bld) 0.8 % Normal 0.0-2.5 [facility] ([place]) Comment on above: Performed By: #### A DIFF, BMP, ANEU, VIDH, URIC, CBC, GFR #### [address] [address] #### PTH #### [address] [address] Eosinophil, Absolute 0.2 10 3/mcL Normal 0.0-0.4 [facility] ([place]) Comment on above: Performed By: #### A DIFF, BMP, ANEU, VIDH, URIC, CBC, GFR #### [address] [address] #### PTH #### [address] [address] Eosinophils/100 WBC (Bld) 3.1 % Normal 0.0-7.0 [facility] ([place]) Comment on above: Performed By: #### A DIFF, BMP, ANEU, VIDH, URIC, CBC, GFR #### [address] [address] #### PTH #### [address] [address] Lymphocyte, Absolute 1.9 10 3/mcL Normal 0.8-3.9 [facility] ([place]) Comment on above: Performed By: #### A DIFF, BMP, ANEU, VIDH, URIC, CBC, GFR #### [address] [address] #### PTH #### [address] [address] Lymphocytes/100 WBC (Bld) 26.5 % Normal 10.0-50.0 [facility] ([place]) Comment on above: Performed By: #### A DIFF, BMP, ANEU, VIDH, URIC, CBC, GFR #### [address] [address] #### PTH #### [address] [address] Monocyte, Absolute 0.4 10 3/mcL Normal 0.2-1.0 [facility] ([place]) Comment on above: Performed By: #### A DIFF, BMP, ANEU, VIDH, URIC, CBC, GFR #### [address] [address] #### PTH #### [address] [address] Monocytes/100 WBC (Bld) 6.0 % Normal 1.7-13.0 [facility] ([place]) Comment on above: Performed By: #### A DIFF, BMP, ANEU, VIDH, URIC, CBC, GFR #### [address] [address] #### PTH #### [address] [address] Neutrophils/100 WBC (Bld) 63.6 % Normal 37.0-80.0 [facility] ([place]) Comment on above: Performed By: #### A DIFF, BMP, ANEU, VIDH, URIC, CBC, GFR #### [address] [address] #### PTH #### [address] [address] .GFRon 10-27-2023 GFR 29 ml/min/1.73sqm Normal [facility] ([place]) Comment on above: Result Comment: [...] BMP, ANEU, VIDH, URIC, CBC, GFR #### [address] [address] #### PTH #### [address] [address] GFR Non- 24 ml/min/1.73sqm Normal [facility] ([place]) Comment on above: Result Comment: GFR Population [...] BMP, ANEU, VIDH, URIC, CBC, GFR #### [place] [address] #### PTH #### [address] [address] .NEUABSon 10-27-2023 Neutrophil, Absolute 4.5 10 3/mcL Normal 2.9-6.2 [facility] ([place]) Comment on above: Performed By: #### A DIFF, BMP, ANEU, VIDH, URIC, CBC, GFR #### [place] [id number] #### PTH #### [address] [address] BMPon 10-27-2023 BUN/Creatinine Ratio 13 ratio Normal 7-27 [facility] ([place]) Comment on above: Performed By: #### A DIFF, BMP, ANEU, VIDH, URIC, CBC, GFR #### [address] [address] #### PTH #### [address] [address] Calcium [Mass/Vol] 9.6 mg/dL Normal 8.4-10.2 [facility] ([place]) Comment on above: Performed By: #### A DIFF, BMP, ANEU, VIDH, URIC, CBC, GFR #### [place] [id number] #### PTH #### [address] [address] Chloride [Moles/Vol] 107 mmol/L Normal 98-107 [facility] ([place]) Comment on above: Performed By: #### A DIFF, BMP, ANEU, VIDH, URIC, CBC, GFR #### [address] [address] #### PTH #### [address] [address] CO2 [Moles/Vol] 29 mmol/L Normal 23-31 [facility] ([place]) Comment on above: Performed By: #### A DIFF, BMP, ANEU, VIDH, URIC, CBC, GFR #### [place] [id number] #### PTH #### [address] [address] Creatinine [Mass/Vol] 2.58 mg/dL High 0.70-1.30 [facility] ([place]) Comment on above: Performed By: #### A DIFF, BMP, ANEU, VIDH, URIC, CBC, GFR #### [place] [id number] #### PTH #### [address] [address] Electrolyte Balance 7.0 mEq/L Normal 4.0-15.0 [facility] ([place]) Comment on above: Performed By: #### A DIFF, BMP, ANEU, VIDH, URIC, CBC, GFR #### [place] [id number] #### PTH #### [address] [address] Glucose [Mass/Vol] 113 mg/dL High 83-110 Formerly [facility] ([place]) Comment on above: Performed By: #### A DIFF, BMP, ANEU, VIDH, URIC, CBC, GFR #### [place] [address] #### PTH #### [address] [address] Potassium [Moles/Vol] 4.0 mmol/L Normal 3.5-5.1 [facility] ([place]) Comment on above: Performed By: #### A DIFF, BMP, ANEU, VIDH, URIC, CBC, GFR #### [address] [address] #### PTH #### [address] [address] Sodium [Moles/Vol] 143 mmol/L Normal 136-145 [facility] ([place]) Comment on above: Performed By: #### A DIFF, BMP, ANEU, VIDH, URIC, CBC, GFR #### [address] [address] #### PTH #### [address] [address] Urea nitrogen [Mass/Vol] 34 mg/dL High 7-18 [facility] ([place]) Comment on above: Performed By: #### A DIFF, BMP, ANEU, VIDH, URIC, CBC, GFR #### [address] [address] #### PTH #### [address] [address] CBCon 10-27-2023 Erythrocyte distribution width (RBC) [Ratio] 15.1 % High 11.5-14.5 [facility] ([place]) Comment on above: Performed By: #### A DIFF, BMP, ANEU, VIDH, URIC, CBC, GFR #### [address] [address] #### PTH #### [address] [address] Hematocrit (Bld) [Volume fraction] 32.2 % Low 42.0-52.0 [facility] ([place]) Comment on above: Performed By: #### A DIFF, BMP, ANEU, VIDH, URIC, CBC, GFR #### [address] [address] #### PTH #### [address] [address] Hgb 10.9 G/dL Low 14.0-18.0 [facility] ([place]) Comment on above: Performed By: #### A DIFF, BMP, ANEU, VIDH, URIC, CBC, GFR #### [place] [address] #### PTH #### [place] [address] MCH (RBC) [Entitic mass] 29.1 pg Normal 27.0-31.2 [facility] ([place]) Comment on above: Performed By: #### A DIFF, BMP, ANEU, VIDH, URIC, CBC, GFR #### [place] [address] #### PTH #### [place] [address] MCHC 33.8 G/dL Normal 31.8-35.4 [facility] ([place]) Comment on above: Performed By: #### A DIFF, BMP, ANEU, VIDH, URIC, CBC, GFR #### [place] [address] #### PTH #### [place] [address] MCV (RBC) [Entitic vol] 86.0 fL Normal 80.0-94.0 [facility] ([place]) Comment on above: Performed By: #### A DIFF, BMP, ANEU, VIDH, URIC, CBC, GFR #### [place] [address] #### PTH #### [place] [address] Platelet 101 10 3/mcL Low 130-400 [facility] ([place]) Comment on above: Performed By: #### A DIFF, BMP, ANEU, VIDH, URIC, CBC, GFR #### [place] [address] #### PTH #### [place] [address] Platelet mean volume (Bld) [Entitic vol] 7.7 fL Normal 7.4-10.4 [facility] ([place]) Comment on above: Performed By: #### A DIFF, BMP, ANEU, VIDH, URIC, CBC, GFR #### [place] [address] #### PTH #### [place] [address] RBC 3.74 10 6/mcL Low 4.04-6.13 [facility] ([place]) Comment on above: Performed By: #### A DIFF, BMP, ANEU, VIDH, URIC, CBC, GFR #### [place] [address] #### PTH #### [place] [address] WBC 7.0 10 3/mcL Normal 4.6-10.8 [facility] ([place]) Comment on above: Performed By: #### A DIFF, BMP, ANEU, VIDH, URIC, CBC, GFR #### [place] [address] #### PTH #### [place] [address] CRURon 10-27-2023 U Creatinine 107.8 mg/dL Normal 39.0-259.0 [facility] ([place]) Comment on above: Performed By: #### A DIFF, BMP, ANEU, VIDH, URIC, CBC, GFR #### [place] [address] #### PTH #### [place] [address] PRURon 10-27-2023 U Protein 22 mg/dL High 0-11 [facility] ([place]) Comment on above: Performed By: #### A DIFF, BMP, ANEU, VIDH, URIC, CBC, GFR #### [place] [address] #### PTH #### [place] [address] PTHon 10-27-2023 PTH, Intact 48.1 pg/mL Normal 18.5-88.0 [facility] ([place]) Comment on above: Performed By: #### A DIFF, BMP, ANEU, VIDH, URIC, CBC, GFR #### [address] [address] #### PTH #### [place] [address] URICon 10-27-2023 Uric Acid Lvl 8.0 mg/dL High 3.5-7.2 [facility] ([place]) Comment on above: Performed By: #### A DIFF, BMP, ANEU, VIDH, URIC, CBC, GFR #### [place] [address] #### PTH #### [place] [address] VIDHon 10-27-2023 Vit. D 25-Hydroxy 29.2 ng/mL Normal [facility] ([place]) Comment on above: Result Comment: Inte rpretive Values Based on Total 25(OH) Vitamin D: Deficient <20 ng/mL Insufficient 20 - <30 ng/mL Sufficient 30-100 ng/mL Performed By: #### A DIFF, BMP, ANEU, VIDH, URIC, CBC, GFR #### [place] [address] #### PTH #### [place] [address] VIDDHon 06-10-2023 Vit. D 1,25 Dihydro. 25.6 pg/mL Normal 19.9-79.3 [facility] ([place]) Comment on above: Result Comment: Perf ormed By: [facility] [employer] [address] [place] [address] [employer] Supervisor: Matthew Cheek III#: [id number] Performed By: #### A DIFF, BMP, ANEU, VIDH, URIC, CBC, GFR #### [address] [address] #### PTH #### [place] [address] .Auto Diffon 06-09-2023 Basophil, Absolute 0.1 10 3/mcL Normal 0.0-0.2 [facility] ([place]) Comment on above: Performed By: #### A DIFF, BMP, ANEU, VIDH, URIC, CBC, GFR #### [address] [address] #### PTH #### [address] [address] Basophils/100 WBC (Bld) 0.8 % Normal 0.0-2.5 [facility] ([place]) Comment on above: Performed By: #### A DIFF, BMP, ANEU, VIDH, URIC, CBC, GFR #### [address] [address] #### PTH #### [address] [address] Eosinophil, Absolute 0.3 10 3/mcL Normal 0.0-0.4 [facility] ([place]) Comment on above: Performed By: #### A DIFF, BMP, ANEU, VIDH, URIC, CBC, GFR #### [address] [address] #### PTH #### [address] [address] Eosinophils/100 WBC (Bld) 3.8 % Normal 0.0-7.0 [facility] ([place]) Comment on above: Performed By: #### A DIFF, BMP, ANEU, VIDH, URIC, CBC, GFR #### [address] [address] #### PTH #### [address] [address] Lymphocyte, Absolute 1.9 10 3/mcL Normal 0.8-3.9 [facility] ([place]) Comment on above: Performed By: #### A DIFF, BMP, ANEU, VIDH, URIC, CBC, GFR #### [address] [address] #### PTH #### [address] [address] Lymphocytes/100 WBC (Bld) 27.1 % Normal 10.0-50.0 [facility] ([place]) Comment on above: Performed By: #### A DIFF, BMP, ANEU, VIDH, URIC, CBC, GFR #### [address] [address] #### PTH #### [address] [address] Monocyte, Absolute 0.4 10 3/mcL Normal 0.2-1.0 [facility] ([place]) Comment on above: Performed By: #### A DIFF, BMP, ANEU, VIDH, URIC, CBC, GFR #### [address] [address] #### PTH #### [address] [address] Monocytes/100 WBC (Bld) 5.6 % Normal 1.7-13.0 [facility] ([place]) Comment on above: Performed By: #### A DIFF, BMP, ANEU, VIDH, URIC, CBC, GFR #### [address] [address] #### PTH #### [address] [address] Neutrophils/100 WBC (Bld) 62.7 % Normal 37.0-80.0 [facility] ([place]) Comment on above: Performed By: #### A DIFF, BMP, ANEU, VIDH, URIC, CBC, GFR #### [address] [address] #### PTH #### [address] [address] .GFRon 06-09-2023 GFR Non- 20 ml/min/1.73sqm Normal [facility] ([place]) Comment on above: Result Comment: GFR Population [...] BMP, ANEU, VIDH, URIC, CBC, GFR #### [address] [address] #### PTH #### [address] [address] GFR 25 ml/min/1.73sqm Normal [facility] ([place]) Comment on above: Result Comment: GFR Population [...] BMP, ANEU, VIDH, URIC, CBC, GFR #### [address] [address] #### PTH #### [address] [address] .NEUABSon 06-09-2023 Neutrophil, Absolute 4.3 10 3/mcL Normal 2.9-6.2 [facility] ([place]) Comment on above: Performed By: #### A DIFF, BMP, ANEU, VIDH, URIC, CBC, GFR #### [address] [address] #### PTH #### [address] [address] BMPon 06-09-2023 BUN/Creatinine Ratio 11 ratio Normal 7-27 [facility] ([place]) Comment on above: Performed By: #### A DIFF, BMP, ANEU, VIDH, URIC, CBC, GFR #### [address] [address] #### PTH #### [address] [address] Calcium [Mass/Vol] 9.8 mg/dL Normal 8.4-10.2 [facility] ([place]) Comment on above: Performed By: #### A DIFF, BMP, ANEU, VIDH, URIC, CBC, GFR #### [place] [address] #### PTH #### [place] [address] Chloride [Moles/Vol] 107 mmol/L Normal 98-107 [facility] ([place]) Comment on above: Performed By: #### A DIFF, BMP, ANEU, VIDH, URIC, CBC, GFR #### [place] [address] #### PTH #### [address] [address] CO2 [Moles/Vol] 31 mmol/L Normal 23-31 [facility] ([place]) Comment on above: Performed By: #### A DIFF, BMP, ANEU, VIDH, URIC, CBC, GFR #### [address] [address] #### PTH #### [place] [address] Creatinine [Mass/Vol] 2.98 mg/dL High 0.70-1.30 [facility] ([place]) Comment on above: Performed By: #### A DIFF, BMP, ANEU, VIDH, URIC, CBC, GFR #### [place] [address] #### PTH #### [address] [address] Electrolyte Balance 6.0 mEq/L Normal 4.0-15.0 [facility] ([place]) Comment on above: Performed By: #### A DIFF, BMP, ANEU, VIDH, URIC, CBC, GFR #### [address] [address] #### PTH #### [address] [address] Glucose [Mass/Vol] 106 mg/dL Normal 83-110 [facility] ([place]) Comment on above: Performed By: #### A DIFF, BMP, ANEU, VIDH, URIC, CBC, GFR #### [place] [address] #### PTH #### [address] [address] Potassium [Moles/Vol] 5.0 mmol/L Normal 3.5-5.1 [facility] ([place]) Comment on above: Performed By: #### A DIFF, BMP, ANEU, VIDH, URIC, CBC, GFR #### [place] [address] #### PTH #### [address] [address] Sodium [Moles/Vol] 144 mmol/L Normal 136-145 [facility] ([place]) Comment on above: Performed By: #### A DIFF, BMP, ANEU, VIDH, URIC, CBC, GFR #### [place] [address] #### PTH #### [address] [address] Urea nitrogen [Mass/Vol] 32 mg/dL High 7-18 [facility] ([place]) Comment on above: Performed By: #### A DIFF, BMP, ANEU, VIDH, URIC, CBC, GFR #### [place] [address] #### PTH #### [address] [address] CBCon 06-09-2023 Erythrocyte distribution width (RBC) [Ratio] 15.0 % High 11.5-14.5 [facility] ([place]) Comment on above: Performed By: #### A DIFF, BMP, ANEU, VIDH, URIC, CBC, GFR #### [place] [address] #### PTH #### [place] [address] Hematocrit (Bld) [Volume fraction] 32.1 % Low 42.0-52.0 [facility] ([place]) Comment on above: Performed By: #### A DIFF, BMP, ANEU, VIDH, URIC, CBC, GFR #### [place] [address] #### PTH #### [place] [address] Hgb 10.7 G/dL Low 14.0-18.0 [facility] ([place]) Comment on above: Performed By: #### A DIFF, BMP, ANEU, VIDH, URIC, CBC, GFR #### [place] [address] #### PTH #### [place] [address] MCH (RBC) [Entitic mass] 29.1 pg Normal 27.0-31.2 [facility] ([place]) Comment on above: Performed By: #### A DIFF, BMP, ANEU, VIDH, URIC, CBC, GFR #### [place] [address] #### PTH #### [place] [address] MCHC 33.4 G/dL Normal 31.8-35.4 [facility] ([place]) Comment on above: Performed By: #### A DIFF, BMP, ANEU, VIDH, URIC, CBC, GFR #### [place] [address] #### PTH #### [place] [address] MCV (RBC) [Entitic vol] 86.9 fL Normal 80.0-94.0 [facility] ([place]) Comment on above: Performed By: #### A DIFF, BMP, ANEU, VIDH, URIC, CBC, GFR #### [place] [address] #### PTH #### [place] [address] Platelet 118 10 3/mcL Low 130-400 [facility] ([place]) Comment on above: Performed By: #### A DIFF, BMP, ANEU, VIDH, URIC, CBC, GFR #### [place] [address] #### PTH #### [place] [address] Platelet mean volume (Bld) [Entitic vol] 8.4 fL Normal 7.4-10.4 [facility] ([place]) Comment on above: Performed By: #### A DIFF, BMP, ANEU, VIDH, URIC, CBC, GFR #### [place] [address] #### PTH #### [place] [address] RBC 3.70 10 6/mcL Low 4.04-6.13 [facility] ([place]) Comment on above: Performed By: #### A DIFF, BMP, ANEU, VIDH, URIC, CBC, GFR #### [place] [address] #### PTH #### [place] [address] WBC 6.8 10 3/mcL Normal 4.6-10.8 [facility] ([place]) Comment on above: Performed By: #### A DIFF, BMP, ANEU, VIDH, URIC, CBC, GFR #### [place] [address] #### PTH #### [place] [address] CRURon 06-09-2023 U Creatinine 94.6 mg/dL Normal 39.0-259.0 [facility] ([place]) Comment on above: Performed By: #### P RUR, CRUR #### [place] [address] PRURon 06-09-2023 U Protein 23 mg/dL High 0-11 [facility] ([place]) Comment on above: Performed By: #### P RODRIGO ADAMS #### [address] [address] PTHon 06-09-2023 PTH, Intact 55.8 pg/mL Normal 18.5-88.0 [facility] ([place]) Comment on above: Performed By: #### A DIFF, BMP, ANEU, VIDH, URIC, CBC, GFR #### [address] [address] #### PTH #### [place] [id number] URICon 06-09-2023 Uric Acid Lvl 8.6 mg/dL High 3.5-7.2 [facility] ([place]) Comment on above: Performed By: #### A DIFF, BMP, ANEU, VIDH, URIC, CBC, GFR #### [place] [id number] #### PTH #### [place] [address] Albumin Elph [Mass/Vol]Order ed By: Braxton Doss on 04-01-2023 Albumin [Mass/Vol] 3.9 g/dL 2.9-4.4 [facility] Basophil percentageOrdered B y: Braxton Doss on 04-01-2023 Basophil percentage Comment . [facility] Comment on above: No monoclonality det ected.Performed at: - [facility] [id number] Director: Jonnathan Meeks PhD, Phone: [phone] No Panel InformationOrdered By: Braxton Doss on 04-01-2023 Addendum Document Comment . [facility] Comment on above: Protein electrophore sis scan will follow via computer,mail, or depositing machine operator delivery. Serum [id number] measu rement by electrophoresisOrdered By: Braxton Doss on 04-01-2023 Alpha 1 globulin Elph [Mass/Vol] 0.2 g/dL 0.0-0.4 [facility] Alpha 1 globulin Elph [Mass/Vol] 0.7 g/dL 0.4-1.0 [facility] Serum globulin measurement ( mass/volume)Ordered By: Braxton Doss on 04-01-2023 Globulin (S) [Mass/Vol] 2.6 g/dL 2.2-3.9 [facility] Serum or plasma IgA measurem ent (mass/volume)Ordered By: Braxton Doss on 04-01-2023 IgA [Mass/Vol] 337 mg/dL 61-437 [facility] Serum or plasma IgG measurem ent (mass/volume)Ordered By: Braxtoncassandra Doss on 04-01-2023 IgG [Mass/Vol] 823 mg/dL 603-1613 [facility] Serum or plasma IgM measurem ent (mass/volume)Ordered By: Braxton Doss on 04-01-2023 IgM [Mass/Vol] 59 mg/dL 15-143 [facility] Serum or plasma beta globuli n measurement by electrophoresis (mass/volume)Ordered By: Braxton Doss on 04-01-2023 Beta globulin Elph [Mass/Vol] 1.1 g/dL 0.7-1.3 [facility] Serum or plasma gamma globul in measurement by electrophoresis (mass/volume)Ordered By: Braxton Doss on 04-01-2023 Gamma globulin Elph [Mass/Vol] 0.6 g/dL 0.4-1.8 [facility] Serum or plasma immunoelectr ophoresis interpretation (nominal result)Ordered By: Braxton Doss on 04-01-2023 Interpretation IEP [Interp] Comment . [facility] Comment on above: No monoclonality det ected. Thin prep Papanicolaou smear with manual screeningOrdered By: Braxton Doss on 04-01-2023 Thin prep Papanicolaou smear with manual screening 1.6 0.7-1.7 [facility] Total protein bloodOrdered B y: Braxton Doss on 04-01-2023 Protein [Mass/Vol] 6.5 g/dL 6.0-8.5 [facility] HFPon 02-25-2023 Bili Indirect 0.3 mg/dL Normal [facility] ([place]) Comment on above: Performed By: #### A DIFF, BMP, ANEU, VIDH, URIC, CBC, GFR #### [address] [address] #### PTH #### [address] [address] Albumin Level 3.8 G/dL Normal 3.4-4.8 [facility] ([place]) Comment on above: Performed By: #### A DIFF, BMP, ANEU, VIDH, URIC, CBC, GFR #### [address] [address] #### PTH #### [address] [address] Albumin/Globulin [Mass ratio] 1.4 {ratio} Normal 1.1-2.5 [facility] ([place]) Comment on above: Performed By: #### A DIFF, BMP, ANEU, VIDH, URIC, CBC, GFR #### [place] [address] #### PTH #### [address] [address] ALP [Catalytic activity/Vol] 62 U/L Normal 40-135 [facility] ([place]) Comment on above: Performed By: #### A DIFF, BMP, ANEU, VIDH, URIC, CBC, GFR #### [address] [address] #### PTH #### [address] [address] ALT [Catalytic activity/Vol] 14 U/L Low 16-63 [facility] ([place]) Comment on above: Performed By: #### A DIFF, BMP, ANEU, VIDH, URIC, CBC, GFR #### [address] [address] #### PTH #### [address] [address] AST [Catalytic activity/Vol] 22 U/L Normal 10-40 [facility] ([place]) Comment on above: Performed By: #### A DIFF, BMP, ANEU, VIDH, URIC, CBC, GFR #### [address] [address] #### PTH #### [address] [address] Bili Direct 0.2 mg/dL Normal 0.0-0.2 [facility] ([place]) Comment on above: Result Comment: Use of this assay is not recommended for patients undergoing treatment with eltrombopag due to the potential for falsely elevated results. Performed By: #### A DIFF, BMP, ANEU, VIDH, URIC, CBC, GFR #### [address] [address] #### PTH #### [place] [address] Bili Total 0.5 mg/dL Normal 0.2-1.0 [facility] ([place]) Comment on above: Result Comment: Use of this assay is not recommended for patients undergoing treatment with eltrombopag due to the potential for falsely elevated results. Performed By: #### A DIFF, BMP, ANEU, VIDH, URIC, CBC, GFR #### [address] [address] #### PTH #### [place] [address] Globulin 2.7 G/dL Normal [facility] ([place]) Comment on above: Performed By: #### A DIFF, BMP, ANEU, VIDH, URIC, CBC, GFR #### [address] [address] #### PTH #### [place] [address] Total Protein 6.5 G/dL Normal 6.4-8.2 [facility] ([place]) Comment on above: Performed By: #### A DIFF, BMP, ANEU, VIDH, URIC, CBC, GFR #### [address] [address] #### PTH #### [address] [address] LIPIDon 02-25-2023 Cholesterol [Mass/Vol] 85 mg/dL Normal 0-200 [facility] ([place]) Comment on above: Result Comment: Chol esterol Reference Interval: Less than 200 Desirable 200-239 Borderline high risk 240 and above High risk Performed By: #### A DIFF, BMP, ANEU, VIDH, URIC, CBC, GFR #### [address] [address] #### PTH #### [address] [address] Cholesterol in HDL [Mass/Vol] 41 mg/dL Normal 40-60 [facility] ([place]) Comment on above: Performed By: #### A DIFF, BMP, ANEU, VIDH, URIC, CBC, GFR #### [address] [address] #### PTH #### [address] [address] Cholesterol in LDL [Mass/Vol] 33 mg/dL Normal 0-130 [facility] ([place]) Comment on above: Performed By: #### A DIFF, BMP, ANEU, VIDH, URIC, CBC, GFR #### [address] [address] #### PTH #### [address] [address] Triglyceride [Mass/Vol] 53 mg/dL Normal 0-150 [facility] ([place]) Comment on above: Result Comment: Trig lyceride Reference Interval: Less than 150 Normal 150-199 Borderline high risk 200-499 High risk 500 or higher Very high risk Performed By: #### A DIFF, BMP, ANEU, VIDH, URIC, CBC, GFR #### [address] [address] #### PTH #### [address] [address] Basophil percentageOrdered B y: Dr. Doss on 12-08-2022 Bilirubin [Mass/Vol] 0.70 mg/dL 0.20-1.00 [facility] Comment on above: For patients on eltr ombopag therapy, use of Dimension Morris TBIL is not recommended. Chloride [Moles/Vol] 107 mmol/L 98-107 [facility] Glucose [Mass/Vol] 165 mg/dL 74-106 [facility] Comment on above: Fasting Glucose resu lt greater than or equal to 126 mg/dL suggests DIABETES MELLITUS per A.D.A. criteria. Potassium [Moles/Vol] 4.5 mmol/L 3.5-5.1 [facility] Protein [Mass/Vol] 7.2 g/dL 6.4-8.2 [facility] Sodium [Moles/Vol] 140 mmol/L 136-145 [facility] WBC (Bld) [#/Vol] 8.3 10*3/uL 4.4-11.0 [facility] Blood erythrocytes count (nu mber/volume)Ordered By: Dr. Doss on 12-08-2022 RBC (Bld) [#/Vol] 3.84 10*6/uL 4.6-6.2 [facility] Blood hemoglobin measurement (mass/volume)Ordered By: Dr. Doss on 12-08-2022 Hemoglobin (Bld) [Mass/Vol] 11.3 g/dL 13.0-16.5 [facility] Blood platelet mean volumeOr dered By: Dr. Doss on 12-08-2022 Platelet mean volume (Bld) [Entitic vol] 11.2 fL 6.2-12.0 [facility] Determination of erythrocyte mean corpuscular volume (MCV)Ordered By: Dr. Doss on 12-08-2022 MCV (RBC) [Entitic vol] 91.7 fL 80-94 [facility] Hematocrit Auto (Bld) [Volum e fraction]Ordered By: Dr. Doss on 12-08-2022 Hematocrit (Bld) [Volume fraction] 35.2 % 40-54 [facility] - Chemistry and C hemistry - challengeOrdered By: Dr. Doss on 12-08-2022 ALP [Catalytic activity/Vol] 55 U/L 45-117 [facility] ALT [Catalytic activity/Vol] 16 U/L 16-61 [facility] CO2 [Moles/Vol] 29.0 mmol/L 21.0-32.0 [facility] Cobalamin (Vitamin B12) [Mass/Vol] 426 pg/mL 211-911 [facility] Globulin (S) [Mass/Vol] 3.4 g/dL 2.2-4.2 [facility] Urea nitrogen/Creatinine [Mass ratio] 13.2 mg/mg 10-20 [facility] - Hematology and Cell countsOrdered By: Dr. Doss on 12-08-2022 Erythrocyte distribution width (RBC) [Entitic vol] 47.5 fL 35.1-43.9 [facility] Erythrocyte distribution width (RBC) [Ratio] 14.1 % 11.6-14.6 [facility] MCH (RBC) [Entitic mass] 29.4 pg 27.0-32.0 [facility] MCHC Auto (RBC) [Mass/Vol]Or dered By: Dr. Doss on 12-08-2022 MCHC (RBC) [Mass/Vol] 32.1 g/dL 32-36 [facility] No Panel InformationOrdered By: Dr. Doss on 12-08-2022 Estimated GFR (MDRD) Amer 28 mL/min >60 [facility] Comment on above: GFR Calc Estimated GFR (MDRD) Non-Af Amer 23 mL/min >60 [facility] Comment on above: Non- GFR Calc Free Lambda Light Chains, Quant 38.1 mg/L 5.7-26.3 [facility] Thyroid Stimulating Hormone (TSH) 1.17 uIU/mL 0.358-3.74 [facility] Whole Blood Vitamin B1 Level 120.3 nmol/L 66.5-200.0 [facility] Comment on above: Performed at: - [address] [id number] Director: Jonnathan Meeks PhD, Phone: [phone] at: - [facility] [id number] Director: Mariaelena Hanna MD, Phone: [phone] Platelets bldOrdered By: Dr. Doss on 12-08-2022 Platelets (Bld) [#/Vol] 162 10*3/uL 150-450 [facility] Serum immunoglobulin kappa l ight chains/immunoglobulin lambda light chains mass ratioOrdered By: Dr. Doss on 12-08-2022 Immunoglobulin light chains.kappa/Immunoglobu katie light chains.lambda (S) [Mass ratio] 1.89 0.26-1.65 [facility] Serum or plasma albumin francisco urement (mass/volume)Ordered By: Dr. Doss on 12-08-2022 Albumin [Mass/Vol] 3.8 g/dL 3.2-5.0 [facility] Serum or plasma albumin/glob ulin mass ratioOrdered By: Dr. Doss on 12-08-2022 Albumin/Globulin [Mass ratio] 1.1 {ratio} 0.9-2.4 [facility] Serum or plasma calcium francisco urement (mass/volume)Ordered By: Dr. Doss on 12-08-2022 Calcium [Mass/Vol] 10.1 mg/dL 8.5-10.1 [facility] Serum or plasma creatinine m easurement (mass/volume)Ordered By: Dr. Doss on 12-08-2022 Creatinine [Mass/Vol] 2.81 mg/dL 0.70-1.30 [facility] Comment on above: The validity of the calculated GFR & GFRAA in patients over 70 years has not been determined. Clinical correlation is essential. Serum or plasma folate measu rement (mass/volume)Ordered By: Dr. Doss on 12-08-2022 Folate [Mass/Vol] 6.40 ng/mL 3.1-55.4 [facility] Serum or plasma immunoglobul in kappa light chains measurement (mass/volume)Ordered By: Dr. Doss on 12-08-2022 Immunoglobulin light chains.kappa [Mass/Vol] 72.1 mg/L 3.3-19.4 [facility] Serum or plasma urea nitroge n measurement (mass/volume)Ordered By: Dr. Doss on 12-08-2022 Urea nitrogen [Mass/Vol] 37 mg/dL 7-18 [facility] Thin prep Papanicolaou smear with manual screeningOrdered By: Dr. Doss on 12-08-2022 Thin prep Papanicolaou smear with manual screening 21 U/L 15-37 [facility] Thin prep Papanicolaou smear with manual screening 4 5-15 [facility] LABORATORYOrdered By: Rhett Figueroa on 10-30-2022 [...] Interpretation Code AO ADM SS LABORATORYOrdered By: [email or web address] [facility] on 10-19-2022 Ferritin [Mass/Vol] 37.0 ng/mL [...] 150 mg/dL AO ADM SS LABORATORYOrdered By: [email or web address] [facility] on 01-19-2022 GFR 32 ml/min/1.73sqm Invalid [...] 27 ratio AO ADM SS LABORATORYOrdered By: [email or web address] [facility] on 11-18-2021 GFR 31 ml/min/1.73sqm Invalid Interpretation Code AO Chemistry S GFR Non- 26 ml/min/1.73sqm Inval id Interpretation Code AO Chemistry S Vital Signs Date Time Vital Sign Value Performing Clinician Facility 07-12-2025 12:17-0400 Diastolic Blood Pressure Non-Invasive 59 mm[Hg] FLORENTINPERLA MORAN DO [facility] 07-12-2025 12:17-0400 Heart rate 68 /min FLORENTIN MORAN DO [facility] 07-12-2025 12:17-0400 Respiratory rate 20 /min FLORENTIN MORAN DO [facility] 07-12-2025 12:17-0400 Systolic Blood Pressure Non-Invasive 105 mm[Hg] FLORENTIN MORAN DO [facility] 07-12-2025 09:39-0400 Body height 175.3 cm FLORENTIN MORAN DO [facility] 07-12-2025 09:39-0400 Body temperature 96.98 [degF] [facility] [facility] 07-12-2025 09:39-0400 Body weight 90.9 kg FLROENTIN MORAN DO [facility] 07-12-2025 09:39-0400 Diastolic Blood Pressure Non-Invasive 54 mm[Hg] FLORENTINPERLA MORAN DO [facility] 07-12-2025 09:39-0400 Heart rate 79 /min FLORENTIN MORAN DO [facility] 07-12-2025 09:39-0400 Respiratory rate 16 /min FLORENTIN MORAN DO [facility] 07-12-2025 09:39-0400 Systolic Blood Pressure Non-Invasive 93 mm[Hg] FLORENTIN MORAN DO [facility] 06-11-2025 14:35-0400 Diastolic blood pressure 56 mm[Hg] Dr. Jluis Nichole DO Work Phone: [facility] 06-11-2025 14:35-0400 Systolic blood pressure 108 mm[Hg] Dr. Jluis Nichole DO Work Phone: [facility] 06-11-2025 13:56-0400 Body temperature 98 [degF] Dr. Jluis Nichole DO Work Phone: [facility] 06-11-2025 13:56-0400 Heart rate 68 /min Dr. Jluis Nichole DO Work Phone: [facility] 06-11-2025 13:56-0400 Respiratory rate 15 /min Dr. Jluis Nichole DO Work Phone: [facility] 06-11-2025 13:56-0400 SaO2% (BldA) [Mass fraction] 97 % Dr. Jluis Nichole DO Work Phone: [facility] 03-28-2025 09:39-0400 Body temperature 98.8 [degF] Dr. Jluis Nichole DO Work Phone: [facility] 03-28-2025 09:39-0400 Diastolic blood pressure 62 mm[Hg] Dr. Jluis Nichole DO Work Phone: [facility] 03-28-2025 09:39-0400 Heart rate 61 /min Dr. Jluis Nichole DO Work Phone: [facility] 03-28-2025 09:39-0400 Respiratory rate 15 /min Dr. Jluis Nichole DO Work Phone: [facility] 03-28-2025 09:39-0400 SaO2% (BldA) [Mass fraction] 100 % Dr. Jluis Nichole DO Work Phone: [facility] 03-28-2025 09:39-0400 Systolic blood pressure 104 mm[Hg] Dr. Jluis Nichole DO Work Phone: [facility] 02-16-2025 15:34-0400 Body height 175.[address] Jluis Nichole DO Work Phone: [facility] 02-16-2025 15:34-0400 Body mass index (BMI) [Ratio] 30.4 kg/m2 Dr. Jluis Nichole DO Work Phone: [facility] 02-16-2025 15:34-0400 Body weight 93.[address] Jluis Nichole DO Work Phone: [facility] 02-16-2025 15:34-0400 Diastolic blood pressure 72 mm[Hg] Dr. Jluis Nichole DO Work Phone: [facility] 02-16-2025 15:34-0400 Heart rate 71 /min Dr. Jluis Nichole DO Work Phone: [facility] 02-16-2025 15:34-0400 Respiratory rate 18 /min Dr. Jluis Nichole DO Work Phone: [facility] 02-16-2025 15:34-0400 Systolic blood pressure 152 mm[Hg] Dr. Jluis Nichole DO Work Phone: [facility] 11-29-2024 09:47-0400 Body temperature 97.8 [degF] Dr. Jluis Nichole DO Work Phone: [facility] 11-29-2024 09:47-0400 Diastolic blood pressure 68 mm[Hg] Dr. Jluis Nichole DO Work Phone: [facility] 11-29-2024 09:47-0400 Heart rate 64 /min Dr. Jluis Nichole DO Work Phone: [facility] 11-29-2024 09:47-0400 Respiratory rate 16 /min Dr. Jluis Nichole DO Work Phone: [facility] 11-29-2024 09:47-0400 SaO2% (BldA) [Mass fraction] 100 % Dr. Jluis Nichole DO Work Phone: [facility] 11-29-2024 09:47-0400 Systolic blood pressure 110 mm[Hg] Dr. Jluis Nichole DO Work Phone: [facility] 11-16-2024 10:19-0500 Body temperature 97.9 [degF] Dr. Jluis Nichole DO Work Phone: [facility] 11-16-2024 10:19-0500 Body weight 87.[address] Jluis Nichole DO Work Phone: [facility] 11-16-2024 10:19-0500 Diastolic blood pressure 76 mm[Hg] Dr. Jluis Nichole DO Work Phone: [facility] 11-16-2024 10:19-0500 Heart rate 68 /min Dr. Jluis Nichole DO Work Phone: [facility] 11-16-2024 10:19-0500 SaO2% (BldA) [Mass fraction] 97 % Dr. Jluis Nichole DO Work Phone: [facility] 11-16-2024 10:19-0500 Systolic blood pressure 120 mm[Hg] Dr. Jluis Nichole DO Work Phone: [facility] 09-12-2024 10:19-0500 Body height 172.7 cm Toney Gutierrez MD Work Phone: [facility] 09-12-2024 10:19-0500 Body mass index (BMI) [Ratio] 29.95 kg/m2 Toney Gutierrez MD Work Phone: [facility] 09-12-2024 10:19-0500 Body temperature 97.11 [degF] Toney Gutierrez MD Work Phone: [facility] 09-12-2024 10:19-0500 Body weight 89.36 kg Toney Gutierrez MD Work Phone: [facility] 09-12-2024 10:19-0500 Diastolic blood pressure 59 mm[Hg] Toney Gutierrez MD Work Phone: [facility] 09-12-2024 10:19-0500 Heart rate 58 /min Toney Gutierrez MD Work Phone: [facility] 09-12-2024 10:19-0500 SaO2% (BldA) [Mass fraction] 96 % Toney Gutierrez MD Work Phone: [facility] 09-12-2024 10:19-0500 Systolic blood pressure 128 mm[Hg] Toney Gutierrez MD Work Phone: [facility] 06-14-2024 11:21-0400 Blood Pressure Location FLORENTIN MORAN DO [facility] 06-14-2024 11:21-0400 Blood Pressure Method FLORENTIN MORAN DO [facility] 06-14-2024 11:21-0400 Body temperature 98.24 [degF] FLORENTIN MORAN DO [facility] 06-14-2024 11:21-0400 Diastolic Blood Pressure Non-Invasive 69 mm[Hg] FLORENTIN MORAN DO [facility] 06-14-2024 11:21-0400 Heart rate 60 /min FLORENTIN MORAN DO [facility] 06-14-2024 11:21-0400 Respiratory rate 18 /min FLORENTIN MORAN DO [facility] 06-14-2024 11:21-0400 Systolic Blood Pressure Non-Invasive 127 mm[Hg] FLORENTIN MORAN DO [facility] 04-01-2023 10:44-0400 Body height 175.[address] Layne Doherty Work Phone: [facility] 04-01-2023 10:44-0400 Body mass index (BMI) [Ratio] 29.3 kg/m2 Dr. Layne Doherty Work Phone: [facility] 04-01-2023 10:44-0400 Body temperature 98.9 [degF] Dr. Layne Doherty Work Phone: [facility] 04-01-2023 10:44-0400 Body weight 90.[address] Layne Doherty Work Phone: [facility] 04-01-2023 10:44-0400 Diastolic blood pressure 50 mm[Hg] Dr. Layne Doherty Work Phone: [facility] 04-01-2023 10:44-0400 Heart rate 76 /min Dr. Layne Doherty Work Phone: [phone] [place] [address] 04-01-2023 10:44-0400 Respiratory rate 15 /min Dr. Layne Doherty Work Phone: [facility] 04-01-2023 10:44-0400 SaO2% (BldA) [Mass fraction] 99 % Dr. Layne Doherty Work Phone: [facility] 04-01-2023 10:44-0400 Systolic blood pressure 114 mm[Hg] Dr. Layne Doherty Work Phone: [facility] 03-02-2023 08:32-0400 Body mass index (BMI) [Ratio] 29.7 kg/m2 Dr. Layne Doherty Work Phone: [facility] 03-02-2023 08:32-0400 Body weight 91.[address] Layne Doherty Work Phone: [facility] 03-02-2023 08:32-0400 Diastolic blood pressure 59 mm[Hg] Dr. Layne Doherty Work Phone: [facility] 03-02-2023 08:32-0400 Heart rate 64 /min Dr. Layne Doherty Work Phone: [facility] 03-02-2023 08:32-0400 Respiratory rate 16 /min Dr. Layne Doherty Work Phone: [facility] 03-02-2023 08:32-0400 Systolic blood pressure 111 mm[Hg] Dr. Layne Doherty Work Phone: [facility] 11-26-2022 13:05-0500 Diastolic blood pressure 68 mm[Hg] Dr. Layne Doherty Work Phone: [facility] 11-26-2022 13:05-0500 Systolic blood pressure 116 mm[Hg] Dr. Layne Doherty Work Phone: [facility] 11-26-2022 10:02-0500 Body height 175.[address] Layne Doherty Work Phone: [facility] 11-26-2022 10:02-0500 Body mass index (BMI) [Ratio] 29.2 kg/m2 Dr. Layne Doherty Work Phone: [facility] 11-26-2022 10:02-0500 Body temperature 98.2 [degF] Dr. Layne Doherty Work Phone: [facility] 11-26-2022 10:02-0500 Body weight 90.[address] Layne Doherty Work Phone: [facility] 11-26-2022 10:02-0500 Heart rate 67 /min Dr. Layne Doherty Work Phone: [facility] 11-26-2022 10:02-0500 Respiratory rate 17 /min Dr. Layne Doherty Work Phone: [facility] 11-26-2022 10:02-0500 SaO2% (BldA) [Mass fraction] 99 % Dr. Layne Doherty Work Phone: [facility] 09-01-2022 08:20-0500 Body mass index (BMI) [Ratio] 26.6 kg/m2 Dr. Layne Doherty Work Phone: [facility] 09-01-2022 08:20-0500 Body weight 81.[address] Layne Doherty Work Phone: [facility] 09-01-2022 08:20-0500 Diastolic blood pressure 77 mm[Hg] Dr. Layne Doherty Work Phone: [facility] 09-01-2022 08:20-0500 Heart rate 64 /min Dr. Layne Doherty Work Phone: [facility] 09-01-2022 08:20-0500 Respiratory rate 20 /min Dr. Layne Doherty Work Phone: [facility] 09-01-2022 08:20-0500 SaO2% (BldA) [Mass fraction] 98 % Dr. Layne Doherty Work Phone: [facility] 09-01-2022 08:20-0500 Systolic blood pressure 142 mm[Hg] Dr. Layne Doherty Work Phone: [facility] 03-09-2022 08:36-0400 Body height 175.[address] Layne Doherty Work Phone: [facility] Work Phone: 03-09-2022 08:36-0400 Body mass index (BMI) [Ratio] 28.5 kg/m2 Dr. Layne Doherty Work Phone: [facility] Work Phone: 03-09-2022 08:36-0400 Body weight 87.[address] Layne Doherty Work Phone: [facility] Work Phone: 03-09-2022 08:36-0400 Diastolic blood pressure 78 mm[Hg] Dr. Layne Doherty Work Phone: [facility] Work Phone: 03-09-2022 08:36-0400 Heart rate 64 /min Dr. Layne Doherty Work Phone: [facility] Work Phone: 03-09-2022 08:36-0400 Respiratory rate 18 /min Dr. Layne Doherty Work Phone: [facility] Work Phone: 03-09-2022 08:36-0400 Systolic blood pressure 144 mm[Hg] Dr. Layne Doherty Work Phone: [facility] Work Phone: Encounters Encounter Date Encounter Type Care Provider Facility Start: 07-31-2025 ambulatory Jluis Nichole Facility:[facility] Start: 07-30-2025 ambulatory Jluis Nichole Facility:[facility] Start: 07-24-2025 End: 07-24-2025 ambulatory Jluis MILAN Facility:[facility] Start: 07-16-2025 End: 07-16-2025 ambulatory Jluis MILAN Facility:[facility] Start: 07-12-2025 End: 07-12-2025 Emergency department patient visit FLORENTIN DEAN LEE [facility] Start: 07-11-2025 End: 07-11-2025 ambulatory Jluis MILAN Facility:[facility] Start: 07-05-2025 End: 07-05-[address] JLUIS NICHOLE DO Facility:[facility] Start: 07-05-2025 End: 07-05-[address] JLUIS NICHOLE DO [facility] Start: 07-04-2025 End: 07-08-[address] JLUIS NICHOLE DO [facility] Start: 07-04-2025 End: 07-08-[address] JLUIS NICHOLE DO Facility:[facility] Start: 07-04-2025 End: 07-04-[address] JLUIS NICHOLE DO [facility] Start: 06-11-2025 End: 06-11-[address] Braxton Doss MD -[facility] Work Phone: Start: 06-11-2025 End: 06-11-[address] Jluis Nichole DO Work Phone: -[facility] Start: 04-26-2025 End: 04-26-[address] Jluis Nichole DO Work Phone: -Ultrasound [facility] Start: 04-26-2025 End: 04-26-[address] Porsha Bass DO -Ultrasound [facility] Work Phone: Start: 04-26-2025 End: 04-26-2025 ambulatory Porsha Bass Facility:[facility] Start: 04-19-2025 End: 04-19-[address] Jluis Nichole DO Work Phone: -Laboratory Phy [facility] 3rd Flr Start: 04-19-2025 End: 04-19-[address] Porsha Bass DO -Laboratory Phy [facility] 3rd Flr Start: 04-19-2025 End: 04-19-2025 ambulatory Porsha Bass Facility:[facility] Start: 04-10-2025 Non-patient / Non-visit Dr. Cecilio huitron MD -[facility] Start: 04-10-2025 End: 04-10-[address] Jluis Nichole DO Work Phone: -Cardiovascular Services Start: 04-10-2025 End: 04-10-2025 Patient encounter procedure Sharon RAGLAND -[facility] Work Phone: Start: 04-10-2025 End: 04-10-2025 ambulatory Porsha Bass Facility:[facility] Start: 03-28-2025 Non-patient / Non-visit Dr. Desire ROMAN -[facility] Start: 03-28-2025 End: 03-28-[address] Jluis Nichole DO Work Phone: -Cardiovascular Services Start: 03-28-2025 End: 03-28-2025 Patient encounter procedure Bailey CONTE -Cardiovascular Services Work Phone: Start: 03-28-2025 End: 03-28-2025 Patient encounter procedure Sharon RAGLAND -[facility] Work Phone: Start: 03-28-2025 End: 03-28-[address] Jluis Nichole DO Work Phone: -[facility] Start: 03-28-2025 End: 03-28-2025 ambulatory Jluis Nichole Facility:[facility] Start: 02-23-2025 End: 04-17-[address] JLUIS NICHOLE DO Facility:[facility] Start: 02-22-2025 End: 02-22-2025 Emergency department patient visit DAVID LAST MD [facility] Start: 02-21-2025 End: 02-25-[address] JLUIS NICHOLE DO Facility:[facility] Start: 02-21-2025 End: 02-25-[address] JLUIS NICHOLE DO [facility] Start: 02-16-2025 End: 02-16-2025 Patient encounter procedure Bailey CONTE -[facility] Work Phone: Start: 02-16-2025 End: 02-16-[address] Jluis Nichole DO Work Phone: [facility] Work Phone: Start: 02-08-2025 End: 02-08-[address] Jluis Nichole DO Work Phone: [facility] Work Phone: Start: 02-08-2025 End: 02-08-2025 Patient encounter procedure Maryuri RAGLAND -Laboratory Work Phone: Start: 02-08-2025 End: 02-08-2025 ambulatory Maryuri Begum Facility:[facility] Start: 11-29-2024 End: 11-29-[address] Braxton Doss MD -[facility] Work Phone: Start: 11-29-2024 End: 11-29-2024 ambulatory Braxton Doss Facility:[facility] Start: 11-16-2024 End: 11-16-2024 ambulatory Elijah Quintero DG Facility:[facility] Start: 11-16-2024 End: 11-16-2024 Patient encounter procedure Elijah Quintero DG -[facility] Work Phone: Start: 11-01-2024 End: 11-01-[address] JLUIS NICHOLE DO Facility:[facility] Start: 11-01-2024 End: 11-01-[address] TIA POWELL MD [facility] Start: 09-12-2024 End: 09-12-2024 ambulatory Toney Gutierrez MD Work Phone: Hematology/Oncology Comment on above: Thrombocytopenia (HC C) (Primary Dx); Anemia, unspecified type Start: 09-12-2024 End: 09-12-2024 Patient encounter procedure Toney Gutierrez MD Work Phone: Hematology/Oncology Start: 08-14-2024 End: 08-14-[address] JLUIS NICHOLE DO Facility:[facility] Start: 08-14-2024 End: 08-14-[address] JLUIS NICHOLE DO [facility] Start: 08-11-2024 End: 08-15-[address] JLUIS NICHOLE DO Facility:[facility] Start: 08-11-2024 End: 08-15-2024 Encounter for general adult medical examination without abnormal findings DR JLUIS NICHOLE DO Facility:[facility] Start: 08-11-2024 End: 08-15-[address] JLUIS NICHOLE DO [facility] Start: 07-07-2024 End: 07-07-[address] TIA POWELL MD [facility] Start: 06-14-2024 End: 06-14-2024 Emergency department patient visit FLORENTIN MORAN DO [facility] Start: 02-21-2024 End: 02-21-[address] TIA POWELL MD Facility:[facility] Start: 02-21-2024 End: 02-21-[address] TIA POWELL MD [facility] Start: 11-19-[address] JLUIS NICHOLE DO Facili ty:[facility] Start: 11-15-2023 End: 12-15-[address] JLUIS NICHOLE DO Facility:[facility] Start: 10-27-2023 End: 10-27-[address] TIA POWELL MD Facility:[facility] Start: 06-24-2023 End: 06-25-[address] JLUIS NICHOLE DO Facility:[facility] Start: 06-09-2023 End: 06-09-[address] TIA POWELL MD Facility:[facility] Start: 04-01-2023 End: 04-01-[address] Layne Doherty Work Phone: [facility] Work Phone: Start: 04-01-2023 End: 04-01-[address] Layne Doherty Work Phone: [facility] Work Phone: Start: 04-01-2023 End: 04-01-[address] Layne Doherty Work Phone: [facility] Work Phone: Start: 03-02-2023 End: 03-02-[address] Layne Doherty Work Phone: [facility] Work Phone: Start: 02-25-2023 End: 02-25-2023 ambulatory MARYURI SHY ABBASI Facility:[facility] Start: 12-14-2022 End: 12-14-[address] Layne Doherty Work Phone: [facility] Work Phone: Start: 12-14-2022 End: 12-14-[address] Layne Doherty Work Phone: [facility] Start: 12-08-2022 End: 12-08-[address] Layne Doherty Work Phone: [facility] Work Phone: Start: 12-08-2022 End: 12-08-[address] Layne Doherty Work Phone: [facility] Start: 11-26-2022 End: 11-26-[address] Layne Doherty Work Phone: [facility] Start: 10-30-2022 End: 10-30-[address] TIA POWELL MD [facility] Start: 10-19-2022 End: 10-19-[address] JLUIS NICHOLE DO [facility] Start: 09-01-2022 End: 09-01-[address] Layne Doherty Work Phone: [facility] Start: 08-25-2022 End: 08-25-2022 Patient encounter procedure MARYURI BEGUM SOURCING ANALYST [facility] Start: 04-29-2022 End: 04-29-[address] TIA POWELL MD [facility] Start: 03-09-2022 End: 03-09-[address] [facility] Start: 03-07-2022 End: 03-07-[address] Layne Doherty Work Phone: [facility] Start: 01-19-2022 End: 01-19-[address] TIA POWELL MD [facility] Start: 12-30-2021 End: 04-07-2022 Physical therapy management LAYNE DOHERTY DO [facility] Start: 11-18-2021 End: 11-18-2021 Patient encounter procedure MARYURI BEGUM CNP [facility] Start: 06-01-2018 Patient encounter ARTEM Friedman cility:[facility] Procedures Date Procedure Procedure Detail Performing Clinician Start: 04-26-2025 Complete ultrasound of kidneys and bladder Dr. Jluis Nichole DO Work Phone: Start: 12-14-2022 MRI of brain without contrast Dr. Layne Doherty Work Phone: Start: 03-07-2022 MRI of brain without contrast Dr. Layne Doherty Work Phone: Start: 02-01-2019 Cystoscopy MARYURI BEGUM SOURCING ANALYST Comment on above: Per [facility] office no te Start: 08-03-2018 Transurethral prostatectomy MARYURI BEGUM SOURCING ANALYST Comment on above: Per [place] office no te Start: 08-03-2018 Transurethral resect ion of bladder neoplasm MARYURI BEGUM SOURCING ANALYST Comment on above: Per [place] office no [...] Start: 09-20-2002 Biopsy of prostate MARYURI BEGUM SOURCING ANALYST Comment on above: Per [place] office no te Start: 09-20-1997 Biopsy of prostate MARYURI BEGUM SOURCING ANALYST Comment on above: Per [place] office no te Extracorporeal shock wave lithotripsy of calculus of kidney MARYURI BEGUM SOURCING ANALYST Comment on above: Per [place] office no te Knee region structur e (body structure) MARYURI BEGUM SOURCING ANALYST Procedure on heart MARYURI BEGUM SOURCING ANALYST Structure of left wr ist (body structure) MARYURI BEGUM SOURCING ANALYST Comment on above: Pins s/p fall on ice Plan of Treatment Date Care Activity Detail Author Start: 10-07-2032 Urine microalbumin profile DTaP,Tdap,Td Vaccine (2 - Td or Tdap) [facility] Start: 01-11-2025 End: 01-11-2025 ambulatory 01/11/2025 10:20 AM EDT Visit (SP) Office Hematology/Oncology [address] [place] [address] [place] [address] [place] [address] CBC/ 4 MO OV Hematology/Oncology Comment on above: CBC/ 4 MO OV Start: 09-12-2024 End: 12-12-2024 aPTT in Platelet poor plasma by Coagulation assay ACTIVATED PARTIAL THROMBOPLASTIN TIME Lab Routine Thrombocytopenia (HCC) Expected: 09/12/2024, Expires: 12/12/2024 [facility] Comment on above: Expected: 09/12/2024 , Expires: 12/12/2024 Start: 09-12-2024 End: 12-12-2024 CBC W Auto Differential panel - Blood COMPLETE BLOOD COUNT AND DIFFERENTIAL Lab Routine Thrombocytopenia (HCC) Expected: 09/12/2024, Expires: 12/12/2024 [facility] Work Phone: Comment on above: Expected: 09/12/2024 , Expires: 12/12/2024 Start: 09-12-2024 End: 12-12-2024 PT panel - Platelet poor plasma by Coagulation assay PROTHROMBIN TIME Lab Routine Thrombocytopenia (HCC) Expected: 09/12/2024, Expires: 12/12/2024 [facility] Comment on above: Expected: 09/12/2024 , Expires: 12/12/2024 Start: 05-21-2024 Covid-19 Vaccine ( season) Covid-19 Vaccine () [facility] Start: 09-20-2023 Advance Directive Discussion Advance Directive Discussion [facility] Start: 08-13-2023 Shingrix Vaccine (2 of 2) Shingrix Vaccine (2 of 2) [facility] Start: 04-01-2023 Serum immunofixation [facility] Start: 04-01-2023 Urine immunofixation [facility] Start: 11-26-2022 Patient referral [facility] Work Phone: Start: 07-01-2019 Hepatitis B surface antibody level LDL Cholesterol [facility] Start: 11-10-2018 Hemoglobin A1c measurement HbA1C [facility] Start: 1958 Anxiety Screening Anxiety Screening [facility] Start: 1958 Depression Screening Depression Scre ening [facility] Start: 1950 Diabetic foot examination Diabetic Foot Exam [facility] Start: 1950 Glaucoma screening Dilated Retinal E xam [facility] Start: 1950 Hepatitis B screening Urine Al bumin:Creatinine Ratio [facility] MR Brain WO contrast [facility] Patient referral [facility] Work Phone: Serum protein electrophoresis [facility] [place] Carotid arteries [facility] Immunizations Immunization Date Immunization Notes Care Provider Fa louis 06-28-2024 influenza, high dose seasonal, preservative-free; Translations: [Fluad PF Prefilled Syringe ] DR TIA POWELL MD [facility] 08-22-2023 RSV vaccine preF3, recombinant DR TIA POWELL MD [facility] 07-15-2023 SARS-CoV-2 (COVID-19 ) [id number] DR TIA POWELL MD [facility] 06-18-[address] TIA POWELL MD [facility] Comment on above: Result Comment: [facility]. IM left upper arm 05-15-2023 influenza virus vaccine, unspecified formulation DR TIA POWELL MD [facility] 04-27-2023 pneumococcal 20-keron nt conjugate vaccine DR TIA POWELL MD [facility] 10-07-2022 tetanus toxoid, reduced diphtheria toxoid, and acellular pertussis vaccine, adsorbed; Translations: [Boostrix (Tdap)] DR JLUIS NICHOLE DO [facility] 08-22-2022 influenza virus vaccine, unspecified formulation DR TIA POWELL MD [facility] 01-26-2022 SARS-CoV-2 (COVID-19 ) [id number] TIA POWELL MD [facility] 07-24-2021 SARS-CoV-2 (COVID-19 ) [id number] TIA POWELL MD [facility] Comment on above: Result Comment: 2022: [id number] 06-04-2021 influenza virus vaccine, unspecified formulation DR TIA POWELL MD [facility] 11-07-2020 COVID-19, mRNA, LNP- S, PF, 100 mcg or 50 mcg dose; Translations: [Moderna COVID-19 Vaccine] MARYURI BEGUM SOURCING ANALYST [facility] 10-10-2020 COVID-19, mRNA, LNP- S, PF, 100 mcg or 50 mcg dose; Translations: [Moderna COVID-19 Vaccine] MARYURI BEGUM SOURCING ANALYST [facility] 05-23-2020 influenza virus vaccine, unspecified formulation MARYURI BEGUM SOURCING ANALYST [facility] Comment on above: Result Comment: brenda meier administered 05-23-2020 pneumococcal conjuga te vaccine, 13 valent MARYURI BEGUM SOURCING ANALYST [facility] 05-20-2019 influenza virus vaccine, unspecified formulation MARYURI BEGUM SOURCING ANALYST [facility] 06-15-2018 influenza virus vaccine, unspecified formulation MARYURI BEGUM SOURCING ANALYST [facility] 06-15-2018 influenza, injectabl e, quadrivalent, preservative free Dr. Jluis Nichole DO Work Phone: [facility] 06-15-2018 influenza, seasonal, injectable Dr. Layne Doherty Work Phone: [facility] 07-21-2017 Influenza virus vaccine Dr. Layne Doherty Work Phone: [facility] 06-08-2017 influenza virus vaccine, unspecified formulation MARYURI ROOF SOURCING ANALYST [facility] 06-09-2016 influenza virus vaccine, unspecified formulation MARYURI ROOF SOURCING ANALYST [facility] 06-11-2015 influenza virus vaccine, unspecified formulation MARYURI ROOF SOURCING ANALYST [facility] 05-21-2015 pneumococcal polysaccharide vaccine, 23 valent MARYURI ROOF SOURCING ANALYST [facility] 06-12-2014 influenza virus vaccine, unspecified formulation MARYURI ROOF SOURCING ANALYST [facility] 06-13-2013 influenza virus vaccine, unspecified formulation MARYURI ROOF SOURCING ANALYST [facility] 08-21-2005 pneumococcal polysaccharide vaccine, 23 valent MARYURI BEGUM SOURCING ANALYST [facility] Payers Date Payer Category Payer Self-pay [id number] 2016 Private Health Insurance [id number] 2016 Unknown [id number] 2005 Medicare [id number] 2005 Medicare [id number] 1940 Unknown [id number] 2.16.8 40.1.958415.3.579.2.627 1940 Unknown [id number] 2.16.8 40.1.008093.3.579.2.627 1940 Unknown [id number] 2.16.8 40.1.151252.3.579.2.627 1940 Unknown [id number] 2.16.8 40.1.809808.3.579.2.627 1940 Unknown [id number] 2.16.8 40.1.926895.3.579.2.627 1940 Unknown [id number] 2.16. 840.1.517573.3.579.2.62 1940 Unknown [id number] 2.16. 840.1.292923.3.579.2.62 1940 Unknown [id number] 2.16. 840.1.860298.3.579.2.627 1940 Unknown [id number] 2.16. 840.1.941497.3.579.2.627 1940 Unknown [id number] 2.16. 840.1.373817.3.579.2.627 1940 Unknown [id number] 2.16. 840.1.561833.3.579.2.62 1940 Unknown [id number] 2.16.8 40.1.926788.3.579.2.627 1940 Unknown [id number] 2.16.8 40.1.941340.3.579.2.627 1940 Unknown [id number] 2.16.8 40.1.632593.3.579.2.627 Unknown [id number] 2.16.8 40.1.339060.3.579.2.462 Unknown [id number] 2.16.8 40.1.161007.3.579.2.462 Unknown [id number] 2.16.8 40.1.677493.3.579.2.462 Unknown [id number] 2.16.8 40.1.768410.3.579.2.462 Unknown [id number] 2.16.8 40.1.356339.3.579.2.462 Unknown [id number] 2.16.8 40.1.824403.3.579.2.462 Unknown [id number] 2.16.8 40.1.248584.3.579.2.462 Unknown [id number] 2.16.8 40.1.197612.3.579.2.462 Unknown [id number] 2.16.8 40.1.727484.3.579.2.462 Unknown [id number] 2.16.8 40.1.426643.3.579.2.462 Unknown [id number] 2.16.8 40.1.517936.3.579.2.462 Unknown [id number] 2.16.8 40.1.290584.3.579.2.462 Unknown [id number] 2.16.8 40.1.582844.3.579.2.462 Unknown [id number] 2.16.8 40.1.518299.3.579.2.462 Unknown [id number] 2.16.8 40.1.330672.3.579.2.462 Unknown [id number] 2.16.8 40.1.672967.3.579.2.462 Unknown [id number] 2.16.8 40.1.035179.3.579.2.462 Social History Date Type Detail Facility Start: 06-20-2019 Never smoked t rakel (finding) [facility] Start: 1940 Sex Assigned At Male A [facility] Start: 03-09-2022 End: 04-01-2023 Tobacco smoking status NHIS Unknown if ever smoked [facility] Start: 03-22-2019 Non-smoker [facility] Start: 10-11-2022 End: 11-29-2024 Tobacco smoking status Ex-smoker (finding) [facility] Start: 06-09-2018 None [facility] Start: 06-09-2018 Spouse/ Signif icant Other [facility] End: 09-20-1993 History of tobacco use Current smoker [facility] End: 09-20-1993 History of tobacco use Cigar Smoker [facility] Start: 09-12-2024 Tobacco use and exposure Smokeless tobacco non-user [facility] Start: 05-13-2018 End: 09-12-2024 History of Social function [facility] Start: 05-13-2018 End: 09-12-2024 Tobacco use panel [facility] PHQ2 Score 0 [facility] Start: 1940 Sex assigned at Not on file C [facility] Sexual Orientation [facility] ospital [facility] Start: 08-14-2019 Sex Male (finding) [facility] Start: 07-12-2025 Not applicable (qualifier value) [facility] Medical Equipment Procedure Code Equipment Code Equipment Original Text Equipment Identifier Dates See Instructions , Freestyle lite test strips. use 1 strip daily. Use as directed, # 100 EA, 2 Refill(s), Pharmacy: [id number], Diabetes, 175, cm, 12/15/21 8:54:00 EDT, Height, 83.8 Start: 03-10-2022 See Instructions , Freestyle lite test strips. use 1 strip daily. Use as directed, # 100 EA, 2 Refill(s), Pharmacy: [id number], Diabetes, 175, cm, 12/15/21 8:54:00 EDT, Height, 83.8 Start: 03-10-2022 See Instructions , Freestyle lite test strips. use 1 strip daily. Use as directed, # 100 EA, 2 Refill(s), Pharmacy: [facility] #4[facility], Diabetes, 175, cm, 12/15/21 8:54:00 EDT, Height, 83.8 Start: 03-10-2022 See Instructions , Freestyle lite test strips. use 1 strip daily. Use as directed, # 100 EA, 2 Refill(s), [id number], Diabetes, 175, cm, 12/15/21 8:54:00 EDT, Height, 83.8 Start: 03-10-2022 See Instructions , Freestyle lite test strips. use 1 strip daily. Use as directed, # 100 EA, 2 Refill(s), [id number], Diabetes, 175, cm, 12/15/21 8:54:00 EDT, Height, 83.8 Start: 03-10-2022 [place] Thk1.65mm P tfe 4x.5in Cardiovascular Sterile - [id number] Start: 05-13-2018 Functional Status Date Assessment Result Facility 07-12-2025 Functional Status Minimum assistance [facility] 07-12-2025 Functional Status [facility] 07-12-2025 [facility] 06-14-2024 Functional Status Minimum assistance [facility] 06-14-2024 Functional Status ID band on, Call device within reach, Bed in low position, Wheels locked, Upper/Half-Length side-rails up, Visitor at bedside, Safety level maintained [facility] 12-30-2021 Functional Status 1 flight [facility] Mental Status Date Assessment Result Facility 07-12-2025 Mental Status Orientation Oriented x 4 [facility] 07-12-2025 Mental Status [facility] 06-14-2024 Mental Status Orientation Oriented x 4 [facility] 06-14-2024 Mental Status [facility] Clinical Notes 04-20-2018 to 07-12-2025 [...] upper back pain Trouble controlling your muscles [phone] [employer]. [address] [place] [address]. All rights reserved. This information is not intended as a substitute for professional medical care. Always follow your healthcare professional's instructions. Follow Up Care 07/12/2025 09:18:39 With:Go to emergency room if symptoms worsen Address:Unknown When:2-4 days With:JLUIS NICHOLE DO Address: [address] [place] [address]- [phone] When:2-4 days [facility] 07-12-2025 Note Discharge Instructions Thank you for allowing [facility] to assist you with your healthcare needs. The following is important discharge information regarding your hospital visit. Diagnosis from Today's Visit Hyperkalemia What to Do Next Instructions from Your Care Team Potassium today was 5.2 on check here. Recommended to resume home Lokelma and to call front office secretary for further outpatient management and following of potassium levels. Return to the emergency department for any acute concerns. No qualifying data available. Post Acute Orders No qualifying data available. You Need to Schedule the Following Appointments Follow Up with Go to emergency room if symptoms worsen When:Within 2-4 days Follow Up with JLUIS NICHOLE DO When:Within 2-4 days Where:[address] [place] [address] [place] [address]- [phone] Allergies NKA Medications Please ask your primary [...] upper back pain Trouble controlling your muscles [phone] [employer]. [address] [place] [address], [place] [address]. All rights reserved. This information is not intended as a substitute for professional medical care. Always follow your healthcare professional's instructions. Additional Information VACCINATE! IT SAVES LIVES! Members of the community who have not yet received the COVID-19 vaccine and would like to receive it can visit one of [facility] vaccine clinics. There are many vaccine clinic locations within the [facility]. For locations and available times, please visit www.[email or web address]. gov/. It is important to note that some COVID mobile vaccine clinics are held outdoors and may be canceled in rainy or stormy conditions. To learn more about pediatric vaccinations (ages 5-11), we invite you to visit the [facility] webpage. https://www.akSkimbls.org/p ages/8544-Vinzr-Vhgspyztsjw-Freq nkgudc-Mdjqe-Gwhsbruva.html To learn more about the COVID-19 vaccine, we invite you to visit the CDC website for a list of frequently asked questions. https://www.cdc.gov/coronavirus/ 2019-ncov/vaccines/faq.html [facility] Patient Portal Access Instructions: Stay connected with your healthcare team and access your personal medical information anytime with the [facility] Patient Portal. If you would like a full copy of your medical records please contact the [facility] Medical Records Department Wednesday through Wednesday between 8a.m. and 4:30p.m. Please follow the directions below to access the portal: 1.Access the email account you provided upon registration to the hospital.2.Look for an invitation email from [facility].3.Open the email and access the invitation link: Accept Invitation to [facility]4.Fill in the required liriano to create your account. To access your account, visit [employer]/MonitorOneChart or scan the QR code above. Click [...] you will allow to register on the [facility] Patient Portal for access to your information. You can also access the [facility] Patient Portal on the [employer] josee. Simply click on "Health Records" under "Health Data" and then click on the Monitor logo. HOW TO SAFELY DISPOSE OF PRESCRIPTION [...] Call your local pharmacy or go to [email or web address].[email or web address] to find one close to you.3.Make use of household items: Use cat litter or old coffee grounds to dispose medications if other options are not available. Mix your drugs with these household products, seal them in an airtight container and throw it into the garbage. Call [facility]: [phone] to be sure your drugs can be [...] aware that I should contact my doctor. Patient/Resolution Specialist Signature: Date/Time: Relationship to Patient: Witness Name/Signature: Date/Time: [facility] 07-06-2025 Note . MICRO - Microbiology [...] Locations *1: This test was performed at: [facility], [address] [place] [address], [facility] , [facility] 07-05-2025 Note Exam Date Time Procedure Performing Provider Status 07/05/25 9:[address] Head or Brain w/o Contrast LAYNE NAYAK MD; Auth (Verified) [id number] ORIGINAL EXAMINATION: CT HEAD TECHNIQUE: Axial CT [...] 4:57:02 PM Ordering Provider: JLUIS NICHOLE RP [facility]10-15-2025 Note* Exam Date Time Procedure Performing Provider Status 07/04/25 4:05 PM XR Humerus Minimum 2 Views Right LILIANA HENAO DO; Auth (Verified) [id number] ORIGINAL EXAMINATION: TWO XRAY VIEWS OF THE [...] 5:10:20 PM Ordering Provider: JLUIS NICHOLE RP [facility]10-15-2025 Note* Exam Date Time Procedure Performing Provider Status 07/04/25 4:02 PM XR Chest 2 Views JAIRO ROBERTSON DO; Auth (Verified) [id number] ORIGINAL EXAMINATION: TWO XRAY VIEWS OF THE [...] 4:38:56 PM Ordering Provider: JLUIS NICHOLE RP [facility]09-22-2025 [facility] [address] [place] [address], [address] [place] [address] OFFICE VISIT Date of Service: 06/11/25 MR#: [id number] Acct: [id number] Name: EKATERINA RANDHAWA Rep #: [id number] : 1940 Provider: Dr. Cora Doss MD Age/Sex: 85/M Location: [facility].BN Status: Signed HPI HPI Chief Complaint: Details: [...] this began during his hospitalization for his ID/CABG and may have been procedure related). 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 Essential hypertension Atherosclerotic heart disease of [place] coronary artery without angina pectoris Postoperative atrial [...] rarely substance use type: does not use arelis/episcopalian: [place] seatbelt use: always Clinical Quality Measures Falls Risk Screening/Assistive Devices Have you fallen in the past year?: Yes Coding Level of Care Code Off vis,est,level 4 Diagnoses Parkinsonism, unspecified Parkinsonism type G20 Parkinsonism type: unspecified Mild cognitive impairment G31.84 Polyneuropathy G62.9 Restless legs syndrome G25.81 06/13/25 1511 ur MD> Date _ Braxton Doss MD Cosigner Signature: Date (if applicable) CC: ~ [facility]09-22-2025 Progress note Author Braxton Doss [facility] Services Note Date/Time June 11, 2025 2:41pm [facility] [address] [place] [address], [place] [address] OFFICE VISIT Date of Service: 06/11/25 MR#: [id number] Acct: [id number] Name: EKATERINA RANDHAWA Rep #: [id number] : 1940 Provider: Dr. Cora Doss MD Age/Sex: 85/M Location: [facility].BN Status: Signed HPI [facility] Chief Complaint: Details: Interim History: Ekaterina [...] this began during his hospitalization for his ID/CABG and may have been procedure related). 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 Essential hypertension Atherosclerotic heart disease of [place] coronary artery without angina pectoris Postoperative atrial [...] rarely substance use type: does not use arelis/episcopalian: [place] seatbelt use: always Clinical Quality Measures Falls Risk Screening/Assistive Devices Have you fallen in the past year?: Yes Coding Level of Care Code Off vis,est,level 4 Diagnoses Parkinsonism, unspecified Parkinsonism type G20 Parkinsonism type: unspecified Mild cognitive impairment G31.84 Polyneuropathy G62.9 Restless legs syndrome G25.81 06/13/25 1511 <Electronically signed by Braxton light MD> Date _ Braxton Simeonigner Signature: Date (if applicable) CC: ~ [facility] Work Phone: 1(946) 428-976508-08-2025 Radiology Diagnostic study note [facility] Imaging Services [address] [place], [place] [address] Kidney and Bladder MR#: [id number] Acct: [id number] Name: EKATERINA RANDHAWA Rep #: [id number] : 1940 M 85 From: Joesph Leon MD PCP: Dr. Jluis Nichole DO Status: REG CLI Study:Kidney and Bladder Date of Exam: 0 04/26/25 Exam# [id number] Ordering Dr: Seth Bass DO PROCEDURE: KIDNEY AND BLADDER 04/26/2025 REASON FOR EXAM: HYPERKALEMIA TECHNIQUE: KIDNEY AND BLADDER COMPARISON: None FINDINGS: Kidneys: Normal renal sizes, parenchymal thicknesses, and echotextures. Hasty: No evidence of hydronephrosis. Cysts or Masses: [...] Bladder IMPRESSION: NORMAL RENAL ULTRASOUND. Reading Location: [id number] CC: Dr. Porsha Bass DO; Dr. Jluis Nichole DO ~ Hand Brush Filler: Signed [facility]07-09-2025 Evaluation note* Diagnosis Onset Date Resolution [...] 1:49pm Polyneuropathy inactive June 11, 2025 1:49pm [facility] Work Phone: 1(627) 377-134706-05-2025 Hospital Discharge instructions Patient Education 02/22/2025 18:52:22 [...] for life. Yourdoctor can tell you more. 0420-1244 [employer]. [address] [place] [address], [place] [address]. All rights reserved. This information is not [...] vessels (vasculitis) Viral or bacterial infection Some vqzs-cxz-scioroa (OTC) pain medicines can cause renal failure [...] help you quit. For more information, visit: Scribble Pressfree.gov/sites/default/files/pdf/jlybinpc-kwg-kio-accessible.pdf owww.smokefree.gov owww.cancer.org/healthy/stayawayfromtobacco/guidetoquittingsmoking/ Talk with your healthcare provider [...] one of the following for more information: [place] [employer] Kidney Patients, www.aakp.org National Kidney Foundation, www.kidney.org [place] [employer], www.kidneyfund.org National Kidney Disease Education [...] or you aren t able to urinate 7353-0335 [employer]. [address] [place] [address], [place] [address]. All rights reserved. This information is not [...] if you are taking any medicine, including uopr-xvp-dndyzrt NSAIDs. Be sure your healthcare provider knows about all medicines, herbs, vitamins, and supplements you are taking. This includes medicines that don't need a prescription and any illicit drugs you may use. 6966-5044 [employer]. [address] [place] [address]. All rights reserved. This information is not intended as a substitute for professional medical care. Always follow yourhealthcare professional's instructions. Follow Up Care 02/22/2025 17:19:54 With:Your front office secretary Address:Unknown When:2-4 days Comments:Schedule appointment as soon as possibleReturn to ED if symptoms worsenCall in the morning for follow-up laboratory studies can return to the ER for any developing symptoms With:JLUIS NICHOLE Address: [address] [place] [phone] [phone] Business (1) When:2-4 days [facility] 06-05-2025 Emergency department Discharge summary Discharge Instructions Thank you for allowing [facility] to assist you with your healthcare needs. The following is importantdischarge information regarding your hospital visit. What to Do Next Instructions from Your Care Team No qualifying data available. Post Acute Orders No qualifying data available. You Need to Schedule the Following Appointments Follow Up with Your front office secretary When:Within 2-4 days Additional Information: Schedule appointment as soon as possible Return to ED if symptoms worsen Call in the morning for follow-up laboratory studies can return to the ER for any developing symptoms Follow Up with JLUIS NICHOLE When:Within 2-4 days Where:[address] [place] [phone] [phone] Business (1) Allergies NKA Medications Please ask [...] for life. Yourdoctor can tell you more. 2887-7182 [employer]. [address] [place] [address], [place] [id number]. All rights reserved. This information is not [...] vessels (vasculitis) Viral or bacterial infection Some lqir-clk-hasapua (OTC) pain medicines can cause renal failure [...] help you quit. For more information, visit: Scribble PressfrCrew.gov/sites/default/files/pdf/trvkugqp-kiu-tjc-accessible.pdf owww.smokefree.gov owww.cancer.org/healthy/stayawayfromtobacco/guidetoquittingsmoking/ Talk with your healthcare provider [...] one of the following for more information: [place] [employer] of Kidney Patients, www.aakp.org National Kidney Foundation, www.kidney.org [place] Kidney Fund, www.kidneyfund.org National Kidney Disease Education [...] or you aren t able to urinate 3196-2191 [employer]. [address] [place] [address]. All rights reserved. This information is not [...] if you are taking any medicine, including tscj-efc-eiurcdp NSAIDs. Be sure your healthcare provider knows about all medicines, herbs, vitamins, and supplements you are taking. This includes medicines that don't need a prescription and any illicit drugs you may use. 4193-3408 [employer]. [address] [place] [address]. All rights reserved. This information is not intended as a substitute for professional medical care. Always follow yourhealthcare professional's instructions. Additional Information VACCINATE! IT SAVES LIVES! Members of the community who have not yet received the COVID-19 vaccine and would like to receive it can visit one of [facility] vaccine clinics. There are many vaccine clinic locations within the [facility]. For locations and available times, please visit www.gettheshot.[email or web address].[place].gov/. It is important to note that some COVID mobile vaccine clinics are held outdoors and may be canceled in rainy or stormy conditions. To learn more about pediatric vaccinations (ages 5-11), we invite you to visit the [facility] webpage. https://www.[facility].org/pages/6656-Dkajk-Sprxsedyqoo-Zzpecgodpe-Yggbf-Umi stions.htmlTo learn more about the COVID-19 vaccine, we invite you to visit the CDC website for a list of frequently asked questions. https://www.cdc.gov/coronavirus/2019-ncov/vaccines/faq.html [facility] Patient Portal Access Instructions: Stay connected with your healthcare team and access your personal medical information anytime with the [facility] Patient Portal. If you would like a full copy of your medical records please contact the [facility] Medical Records Department Wednesday through Wednesday between 8a.m. and 4:30p.m. Please follow the directions below to access the portal: 1.Access the email account you provided upon registration to the [facility].2.Look for an invitation email from [facility].3.Open the email and access the invitation link: Accept Invitation to [facility]4.Fill in the required liriano to create your account. Sign into www.[employer] with your username and password that you [...] you will allow to register on the [facility] Patient Portal for access to your information. You can also access the [facility] Patient Portal on the [employer] josee. Simply click on "Health Records" under "HealthData" and then click on the Monitor logo. HOW TO SAFELY DISPOSE OF PRESCRIPTION [...] Call your local pharmacy or go to http://bit.Appuri/6Z6Kp4o to find one close to you.3.Make use of household items: Use cat litter or old coffee grounds to dispose medications if other options arenot available. Mix your drugs with these household products, seal them in an airtight container andthrow it into the garbage. Call [facility]: [phone] to be sure your drugs can be [...] aware that I should contact my doctor. Patient/Resolution Specialist Signature: Date/Time: Relationship to Patient: Witness Name/Signature: Date/Time: [facility]06-05-2025 Note Discharge Instructions Thank you for allowing [facility] to assist you with your healthcare needs. The following is importantdischarge information regarding your hospital visit. What to Do Next Instructions from Your Care Team No qualifying data available. Post Acute Orders No qualifying data available. You Need to Schedule the Following Appointments Follow Up with Your front office secretary When:Within 2-4 days Additional Information: Schedule appointment as soon as possible Return to ED if symptoms worsen Call in the morning for follow-up laboratory studies can return to the ER for any developing symptoms Follow Up with JLUIS NICHOLE When:Within 2-4 days Where:0 [facility] [place] [address]- [phone] Business (1) Allergies NKA Medications Please ask [...] for life. Yourdoctor can tell you more. [phone] [employer]. [address] [place] [address], [place] [address]. All rights reserved. This information is not [...] vessels (vasculitis) Viral or bacterial infection Some fqtr-off-xuhwvur (OTC) pain medicines can cause renal failure [...] help you quit. For more information, visit: osmokefree.gov/sites/default/files/pdf/bckwzmmi-gde-nmc-accessible.pdf owww.smokefree.gov owww.cancer.org/healthy/stayawayfromtobacco/guidetoquittingsmoking/ Talk with your healthcare provider [...] one of the following for more information: [place] [employer] Kidney Patients, www.aakp.org National Kidney Foundation, www.kidney.org [place] [employer], www.kidneyfund.org National Kidney Disease Education [...] or you aren t able to urinate 9932-7656 [employer]. [address] [place] [address]. All rights reserved. This information is not [...] as systemic lupus erythematosus, sickle cell, or Kings disease How is this test done? The [...] if you are taking any medicine, including efro-dpu-wpvehpi NSAIDs. Be sure your healthcare provider knows about all medicines, herbs, vitamins, and supplements you are taking. This includes medicines that don't need a prescription and any illicit drugs you may use. [phone] [employer]. [address] [place] [address], [place] [address]. All rights reserved. This information is not intended as a substitute for professional medical care. Always follow yourhealthcare professional's instructions. Additional Information VACCINATE! IT SAVES LIVES! Members of the community who have not yet received the COVID-19 vaccine and would like to receive it can visit one of [facility] vaccine clinics. There are many vaccine clinic locations within the [facility]. For locations and available times, please visit www.gettheshot.coronavirus.[place].gov/. It is important to note that some COVID mobile vaccine clinics are held outdoors and may be canceled in rainy or stormy conditions. To learn more about pediatric vaccinations (ages 5-11), we invite you to visit the [facility] webpage. https://www.[facility].org/pages/5248-Shzlw-Zabxqausntr-Drmpssayho-Wzojp-Lcs stions.htmlTo learn more about the COVID-19 vaccine, we invite you to visit the CDC website for a list of frequently asked questions. https://www.cdc.gov/coronavirus/2019-ncov/vaccines/faq.html [employer] Patient Portal Access Instructions: Stay connected with your healthcare team and access your personal medical information anytime with the [employer] Patient Portal. If you would like a full copy of your medical records please contact the [facility] Medical Records Department Wednesday through Wednesday between 8a.m. and 4:30p.m. Please follow the directions below to access the portal: 1.Access the email account you provided upon registration to the [facility].2.Look for an invitation email from [facility].3.Open the email and access the invitation link: Accept Invitation to [employer]4.Fill in the required liriano to create your [...] you will allow to register on the [employer] Patient Portal for access to your information. You can also access the [employer] Patient Portal on the [employer] L[employer] josee. Simply click on "Health Records" under "HealthDaPurpleBricks" and then click on the Monitor logo. HOW TO SAFELY DISPOSE OF PRESCRIPTION [...] Call your local pharmacy or go to http://Blekko.Appuri/3J2Vy6s to find one close to you.3.Make use of household items: Use cat litter or old coffee grounds to dispose medications if other options arenot available. Mix your drugs with these household products, seal them in an airtight container andthrow it into the garbage. Call [facility]: [phone] to be sure your drugs can be [...] aware that I should contact my doctor. Patient/Resolution Specialist Signature: Date/Time: Relationship to Patient: Witness Name/Signature: Date/Time: [facility]06-05-2025 Note* Exam Date Time Procedure Performing Provider Status 02/22/25 5:31 PM EKG [ED AOH] - CV DAVID LAST MD; [facility] (Verified) ECG Final Report Sinus rhythm RBBB and LAFB SEE DICTATION Electronic Signature: DAVID LAST MD 02/22/2025 17:49:20 [facility]05-30-2025 Evaluation note* Diagnosis Onset Date Resolution [...] 9:39am Polyneuropathy inactive March 28, 2025 9:39am [facility] Work Phone: 1(986) 235-398503-12-2025 Evaluation note* Diagnosis Onset Date Resolution Status Admit Date Restless legs syndrome acute [facility] 2024 9:45am Mild cognitive impairment [...] 9:39am Polyneuropathy inactive March 28, 2025 9:39am [facility] Work Phone: 1(853) 135-546502-27-2025 Evaluation note* Diagnosis Onset Date Resolution Status Admit Date Contusion of right foot acute F ebruary 2024 10:14am Restless legs syndrome acute [facility] 2024 9:45am Mild cognitive impairment chronic November 29, 2024 9:45am Parkinsonism chronic November 29, 2024 9:45am Polyneuropathy inactive November 9:45am [facility] Work Phone: 1(398) 621-812502-27-2025 Evaluation note* Diagnosis Onset Date Resolution Status Admit Date Contusion of right foot acute F ebruary 2024 10:14am Restless legs syndrome acute [facility] 2024 9:45am Mild cognitive impairment [...] April, chronic February 16, 2025 3 :33pm [facility] Work Phone: 1(434) 184-307312-24-2024 NoteHNO ID: [id number] Author: TONEY GUTIERREZ MD Service: ? Author [...] which included preparing to see the patient, nzuj-ko-bppl patient care, completing clinical documentation, obtaining and/or reviewing separately obtained history, counseling and educating the patient/family/caregiver, ordering medications, tests, or procedures, independently interpreting results (not separately reported), and communicating results to the patient/family/caregiver. Electronically Signed: Toney Gutierrez MD September 12, 2024 10:42 [facility]12-24-2024 History of Present illness Narrative* Toney [...] which included preparing to see the patient, ahak-mi-itwt patient care, completing clinical documentation, obtaining and/or reviewing separately obtained history, counseling and educating the patient/family/caregiver, ordering medications, xenia ts, or procedures, independently interpreting results (not separately reported), and communicating results to the patient/family/caregiver. Electronically Signed: Toney Gutierrez MD September 12, 2024 10:42 AM [facility] Discharge instructions Patient Education 06/14/2024 [...] some information about medicine: You may use opia-wtq-rnrdfqq medicine such as acetaminophen or ibuprofen to [...] re-open Bleeding not controlled by direct pressure [phone] [employer]. [address] [place] [address]. All rights reserved. This information is not intended as a substitute for professional medical care. Always follow [facility] professional's instructions. 06/14/2024 11:49:04 Wound Check (No [...] oRed streaks around the wound oDraining pus [phone] [employer]. [address] [place] [address]. All rights reserved. This information is not intended as a substitute for professional medical care. Always follow yourhealthcare professional's instructions. Follow Up Care 06/14/2024 11:11:49 With:Go to emergency room if symptoms worsen Address: When:3-7 days With:JLUIS NICHOLE DO Address: [address] [place] [address] Physicians [place], [place] [id number]- [phone] When:2-4 days [facility] 09-25-2024 Note Discharge Instructions Thank you for allowing [facility] to assist you with your healthcare needs. [...] JLUIS NICHOLE DO When:Within 2-4 days Where:0 [facility] [place] [address]- [phone] Allergies NKA Medications Please ask your primary [...] some information about medicine: You may use rslb-akc-fhrvppm medicine such as acetaminophen or ibuprofen to [...] re-open Bleeding not controlled by direct pressure [phone] [employer]. [address] [place] [address], [place] [address]. All rights reserved. This information is not [...] oRed streaks around the wound oDraining pus [phone] [employer]. [address] [place] [address]. All rights reserved. This information is not intended as a substitute for professional medical care. Always follow yourhealthcare professional's instructions. Additional Information VACCINATE! IT SAVES LIVES! Members of the community who have not yet received the COVID-19 vaccine and would like to receive it can visit one of [facility] vaccine clinics. There are many vaccine clinic locations within the [facility]. For locations and available times, please visit www.[email or web address].[place].gov/. It is important to note that some COVID mobile vaccine clinics are held outdoors and may be canceled in rainy or stormy conditions. To learn more about pediatric vaccinations (ages 5-11), we invite you to visit the [facility] webpage. https://www.[facility].org/pages/1767-Llsjn-Ttxptdoysav-Alignegpdw-Fwvsj-Vdu stions.htmlTo learn more about the COVID-19 vaccine, we invite you to visit the CDC website for a list of frequently asked questions. https://www.cdc.gov/coronavirus/2019-ncov/vaccines/faq.html [facility] [employer] [employer] [facility] [employer] Patient Portal Access Instructions: Stay connected with your healthcare team and access your personal medical information anytime with the [facility] [employer] [facility] [employer] Patient Portal. If you would like a full copy of your medical records please contact the [facility] Medical Records Department Wednesday through Wednesday between 8a.m. and 4:30p.m. Please follow the directions below to access the portal: 1.Access the email account you provided upon registration to the hospital.2.Look for an invitation email from [facility].3.Open the email and access the invitation link: Accept Invitation to [employer]4.Fill in the required liriano to create your account. Sign into [email or web address] with your username and password that you [...] you will allow to register on the [facility] [employer] [employer] [facility] [employer] Patient Portal for access to your information. You can also access the [employer] Patient Portal on the WiFi Rail. Simply click on "Health Records" under "HealthDaPurpleBricks" and then click on the [employer] logo. [...] Call your local pharmacy or go to http://Blekko.Appuri/1F7Ae8b to find one close to you.3.Make use of household items: Use cat litter or old coffee grounds to dispose medications if other options arenot available. Mix your drugs with these household products, seal them in an airtight container andthrow it into the garbage. Call [facility]: [phone] to be sure your drugs can be [...] aware that I should contact my doctor. 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, chronic Mild cognitive impairment ac craig Polyneuropathy acute Parkinson's disease noneacti [facility] Work Phone: Evaluation + Plan note Future Appointments Appointment Date:12/15/2021 09:30:00 AM Scheduled Provider:LAYNE DOHERTY DO Location:[facility] Appointment Type:PC OV Future Scheduled Tests Laboratory* Basic Metabolic Panel 05/08/21 * Vancomycin Level Trough - Panel 05/08/21 [facility] Evaluation + Plan note Future Appointments Appointment Date:01/20/2022 10:00:00 AM Scheduled Provider: Location:[facility] Appointment Type:PT Treatment - [place] Appointment Date:01/22/2022 10:00:00 AM Scheduled Provider: Location:[facility] Appointment Type:PT Treatment - [place] Appointment Date:01/27/2022 10:00:00 AM Scheduled Provider: Location:[facility] Appointment Type:PT Treatment - [place] Appointment Date:01/30/2022 10:00:00 AM Scheduled Provider: Location:[facility] Appointment Type:PT Treatment - [place] Appointment Date:06/18/2022 09:00:00 AM Scheduled Provider:LAYNE DOHERTY DO Location:[facility] Appointment Type:PC Wellness Medicare with Labs [facility] Evaluation + Plan note Future Appointments Appointment Date:04/16/2022 07:30:00 AM Scheduled Provider:LAYNE DOHERTY DO Location:[facility] Appointment Type:PC OV Appointment Date:06/18/2022 09:00:00 AM Scheduled Provider:LAYNE DOHERTY DO Location:[facility] Appointment Type:PC Wellness Medicare with Labs [facility] Evaluation + Plan note Future Appointments Appointment Date:06/18/2022 09:00:00 AM Scheduled Provider:LAYNE DOHERTY DO Location:[facility] Appointment Type:PC Wellness Medicare with Labs Appointment Date:08/18/2022 07:30:00 AM Scheduled Provider:LAYNE DOHERTY DO Location:[facility] Appointment Type:PC OV [facility] Evaluation + Plan note Future Appointments Appointment Date:09/21/2022 09:00:00 AM Scheduled Provider:LAYNE DOHERTY DO Location: [facility] Appointment Type:PC OV Appointment Date:10/07/2022 09:00:00 AM Scheduled Provider:JLUIS NICHOLE DO Location:[facility] Appointment Type:PC [facility] Evaluation + Plan note Future Appointments Appointment Date:11/09/2022 02:00:00 PM Scheduled Provider: Location:[facility] Appointment Type:VL AOH - Venous US/Doppler Both Legs (fo Appointment Date:06/22/2023 09:00:00 AM Scheduled Provider:JLUIS NICHOLE DO Location:[facility] Appointment Type:PC Wellness Medicare Future Scheduled Tests Laboratory* Stool for Occult Blood (Lab) 10/11/22 [facility] Evaluation + Plan note Future Appointments Appointment Date:07/18/2024 09:00:00 AM Scheduled Provider:JLUIS NICHOLE DO Location:[facility] Appointment Type:PC Wellness Medicare [facility] Evaluation + Plan note Future Appointments Appointment Date:06/21/2024 09:00:00 AM Scheduled Provider:MARTIR WEBB Location:[facility] Appointment Type:PC OV ED Follow Up Appointment Date:07/18/2024 09:00:00 AM Scheduled Provider:JLUIS NICHOLE DO Location:[facility] Appointment Type:PC Wellness Medicare [facility] Evaluation + Plan note Future Appointments Appointment Date:08/11/2024 10:00:00 AM Scheduled Provider:JLUIS NICHOLE DO Location:[facility] Appointment Type:PC Wellness Medicare [facility] Evaluation + Plan note Future Appointments Appointment Date:02/08/2025 10:00:00 AM Scheduled Provider:JLUIS NICHOLE DO Location:[facility] Appointment Type:PC OV [facility] Evaluation + Plan note Future Appointments Appointment Date:05/23/2025 10:00:00 AM Scheduled Provider:JLUIS NICHOLE DO Location:[facility] Appointment Type:[facility] Future Scheduled Tests Laboratory* Basic Metabolic Panel 02/22/25 * N-Terminal proBNP 02/21/25 [facility] Evaluation + Plan note Future Appointments Appointment Date:07/05/2025 10:00:00 AM Scheduled Provider: Location:[facility] Appointment Type:CT Head or Brain w/o Contrast Appointment Date:09/05/2025 02:00:00 PM Scheduled Provider:JLUIS NICHOLE DO Location:[facility] Appointment Type:PC Wellness Medicare Future Scheduled Tests Radiology* CT Head or Brain w/o Contrast 07/05/25 * XR Chest 2 Views (PA & Lateral) 07/04/25 [facility] Evaluation + Plan note Future Appointments Appointment Date:09/05/2025 02:00:00 PM Scheduled Provider:JLUIS NICHOLE DO Location:[facility] Appointment Type:PC Wellness Medicare Future Scheduled Tests Laboratory* Potassium Level 07/08/25 Radiology* XR Chest 2 Views (PA & Lateral) 07/04/25 [facility] Evaluation note* Diagnosis Onset Date Resolution Status Atherosclerotic heart diseas e of [place] coronary artery without angina pectoris chronic Essential hypertension chron ic Hyperlipidemia chronic 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 Paroxysmal atrial fibrillation [facility] Work Phone: Evaluation note* Diagnosis Onset Date Resolution Status Atherosclerotic heart diseas e of [place] coronary artery without angina pectoris chronic Essential hypertension chron ic Hyperlipidemia chronic 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 Paroxysmal atrial fibrillation chronic Mild cognitive impairment ac craig Polyneuropathy acute Parkinson's disease noneacti ve [facility] Work Phone: Evaluation note* Diagnosis Thrombocytopenia (HCC)- Primary Thrombocytopenia, unspecified Anemia, unspecified type documented in this encounter [facility] Narrative No data available for this section [facility] Hospital Discharge instructions No data available for this section [facility] Progress note No data available for this section [facility] Reason for referral (narrative)No reason for referral information [facility] Work Phone: Summary Purpose Family History No Family History Records Found Relationship Condition Age at Onset Recorded Date/T gwyn father Myocardial infarction Unknown Advance Directives No Advanced Directives Records Found Advance Directive Response Recorded Date/ Time Living Will Yes March 22, 2019 1 0:10am Power of Adobe Block Maker Yes March 22, 2019 10:10am Advance Directive Response Recorded Date/ Time Living Will Yes March 22, 2019 1 0:10am Do you have a Healthcare Power of Adobe Block Maker? Yes March 22, 2019 10:10am Chief Complaint and Reason for Visit Chief Complaint ATAXIA 6 M FU Reason for Visit Atherosclerotic hear t disease of [place] coronary artery without angina pectoris Essential hypertension Hyperlipidemia Ischemic cardiomyopathy Paroxysmal atrial fibrillation Chief Complaint 6 m fu Parkinson's disease EORDER Reason for Visit Atherosclerotic hear t disease of [place] coronary artery without angina pectoris Essential hypertension Hyperlipidemia Ischemic cardiomyopathy Paroxysmal atrial fibrillation Mild cognitive impairment Polyneuropathy Parkinson's disease Chief Complaint 6 m fu Parkinson's disease EORDER PARKINSONS Reason for Visit Atherosclerotic hear t disease of [place] coronary artery without angina pectoris Essential hypertension [...] section and content) DATE CREATED AUTHOR 06/01/2018 [facility] DATE CREATED AUTHOR AUTHOR'S ORGANIZ ATION 02/22/2024 [facility] ([place]) DATE CREATED AUTHOR AUTHOR'S ORGANIZ ATION 06/09/2025 [facility] DATE CREATED AUTHOR AUTHOR'S ORGANIZ ATION 07/16/2025 [facility] DATE CREATED AUTHOR AUTHOR'S ORGANIZ ATION 07/27/2025 [facility] DATE CREATED AUTHOR AUTHOR'S ORGANIZ ATION 08/03/2025 [facility] Care Team (unrecognized sect ion and content) Team Status: Active Member Role Status Dates Dr. Layne Doherty DO Family Provider Active Dr. Layne Doherty DO Primary Care Provider Active Team Status: Inactive Member Role Status Dates Dr. Layne Doherty DO Primary Care Provider, Referrin g Provider Active Maryuri Begum FINISHED GOODS PLANNER, FINISHED GOODS PLANNER-C Attending Provider Active Team Status: Inactive Member [...] Doherty DO Referring Provider Active Maryuri Begum FINISHED GOODS PLANNER, FINISHED GOODS PLANNER-C Attending Provider Active Dr. Jluis Nichole DO Primary Care Provider Active Team Status: Inactive Member Role Status Dates Dr. Layne Doherty DO Referring Provider Active Dr. Braxton Doss MD Attending Provider Active Dr. Jluis Nichole DO Primary Care Provider Active Team Status: Inactive Member Role Status Dates Dr. Jluis Nichole DO Primary Care Provider Active Dr. Braxton Doss MD Attending Provider Active Well Tester Relationship Specialty Start Date End Date Jluis Nichole DO [address] [place] [address] PCP - General Family Medicine 09/12/24 Adonis Joaquin MD [address] [place] [address] Primary Staff Physician Cardiology 12/06/18 Team Status: [...] 2025 End: February 08, 2025 Maryuri Begum FINISHED GOODS PLANNER, FINISHED GOODS PLANNER-C Attending Provider Active S tart: February 08, 2025 End: February 08, 2025 Maryuri Begum FINISHED GOODS PLANNER, FINISHED GOODS PLANNER-C Referring Provider Active S tart: February 08, [...] 2025 End: February 08, 2025 Maryuri Begum FINISHED GOODS PLANNER, FINISHED GOODS PLANNER-C Attending Provider Active S tart: February 08, 2025 End: February 08, 2025 Maryuri Begum FINISHED GOODS PLANNER, FINISHED GOODS PLANNER-C Referring Provider Active S tart: February 08, [...] 2025 End: February 08, 2025 Maryuri Begum FINISHED GOODS PLANNER, FINISHED GOODS PLANNER-C Attending Provider Active S tart: February 08, 2025 End: February 08, 2025 Maryuri Begum FINISHED GOODS PLANNER, FINISHED GOODS PLANNER-C Referring Provider Active S tart: February 08, [...] 2025 End: April 10, 2025 Sharon Parsons FINISHED GOODS PLANNER-C Attending Provider Active S tart: April 10, 2025 End: April 10, 2025 Sharon Parsons FINISHED GOODS PLANNER-C Referring Provider Active S tart: April 10, [...] Ashley Corea PT Position: P3 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 Role: Other Name: LAYNE DOHERTY DO Position: P4 Physician - Primary Care Med Service: Active Provider Member Role: Primary Care Physician Address: Address: [address] [place] [address] [place] [address]- Care Team Related Persons Name: EDISDEBI WEBER Address: Home [address] [place], [place] [id number] [place] Care Team Personnel Name: Ashley Corea PT 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: P3 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 Role: Other Name: LAYNE DOHERTY DO Position: P4 Physician - Primary Care Med Service: Active Provider Member Role: Primary Care Physician Address: Address: [address] [place] [id number] [place] [address] Care Team Related Persons Name: DEBI RANDHAWA Address: [facility] [address] [place] [phone] Care Team Personnel Name: Ashley Corea Clerk Lynn PT 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: P3 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 Role: Other Name: LAYNE DOHERTY DO Position: P4 Physician - Primary Care Member Role: Primary Care Physician Address: Address: [address] [place] [id number] [place] Care Team Related Persons Name: DEBI RANDHAWA Address: [address] [phone] Care Team Personnel Name: Ashley [facility]a Clerk Lynn PT 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: P3 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 Role: Other Name: JLUIS NICHOLE DO Position: P4 Physician - Primary Care Member Role: Primary Care Physician Address: Address: [address] [place] [id number] [place] [address] Care Team Related Persons Name: DEBI RANDHAWA Address: [address] [phone] Care Team Personnel Name: Ashley Corea Clerk Lynn PT Position: P3 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 Role: Other Name: JLUIS NICHOLE DO Position: P4 Physician - Primary Care Member Role: Primary Care Physician Address: Address: [address] [place] [address] Care Team Related Persons Name: DEBI RANDHAWA Address: [address] [phone] [place] Source Comments (unrecognize d section and content) In the event this informatio n is protected by the Federal Confidentiality of Alcohol and Drug Abuse Patient Records regulations: The Federal rules restrict any use of the information to criminally investigate or prosecute any alcohol or drug abuse patient.[facility] Reason for Visit (unrecogniz ed section [...] BE BASED ON THE PRIMARY CLINICAL RECORDS. [facility]. provides no warranty or guarantee of the accuracy or completeness of information in this document.
[2025-08-28 08:57] LABS: Albumin, Serum 3.7 g/dL (3.4-4.8); Anion Gap 7 (5-15); BUN 22 mg/dL (4-19); BUN/Creat Ratio 12.5 RATIO (10-20); Calcium,Total 9.0 mg/dL (7.6-11.0); Carbon Dioxide 25.6 mmol/L (21.0-32.0); Chloride 110 mmol/L (98-108); Glucose 120 mg/dL (70-99); Potassium 5.6 mmol/L (3.3-5.1)
[2025-08-28 10:32] LABS: PTHIN 164 pg/mL (11-61)
== END ==
LOC: OLS.WHLTSB 05:00
PROVIDERS: PCP Student in an Organized Health Care Education/Training Program; Visit Provider Nurse Practitioner Adult Health
DX: N18.4 Chronic kidney disease, stage 4 (severe) (principal); E87.5 Hyperkalemia; F41.9 Anxiety disorder, unspecified
CPT/HCPCS: 36415; 80069; 83970

== ENCOUNTER → 2025-09-05 05:00 | Outpatient (REF) | payer MEDICARE, OTHER, SELFPAY ==
--- OUTSIDE RECORDS SUMMARY | 2025-09-05 04:02 | XMS RPT_ITS | CCD ---
Author Organization [facility] Care Team Providers Care Warehouse Receiving Clerk Name Role Phone ARTEM ACEVEDO Unavailable Unavailable [facility] Unavailable Unavailable [facility] Unavailable Unavailable LAYNE DOHERTY DO Primary Care Physician Anmol OLIVA, Lynn Unavailable Unavailable Dr. Layne Doherty Primary Care Provider Dr. Layne Doherty Referring Provider Dr. Satish Razo Attending Provider [phone] DAYANARA LEE, DR BAZZI Primary Care Physician [phone] Dr. Layne Doherty Primary Care Provider Dr. Layne Doherty Referring Provider Roof LABOR EXPEDITER, LABOR EXPEDITER-Mayra Murphy Attending Provider Dr. Braxton Doss Attending Provider Dr. Layne Doherty Referring Provider Roof LABOR EXPEDITER, LABOR EXPEDITER-C Maryuri Murphy Attending Provider Dr. Jluis Nichole Primary Care Provider [phone] Dr. Braxton Doss Attending Provider [phone] ANDRE ROMAN, DR WEBER Attending Un available [...] Romario ROMAN, Dr. Limon Attending Provider Shy LABOR EXPEDITER-C, Maryuri Murphy Attending Provider Shy LABOR EXPEDITER-C, Maryuri Murphy Referring Provider Bailey Salcedo Attending Provider Dayanara LEE, Dr. Bazzi Primary Care Provider Dayanara LEE, Dr. Bazzi Referring Provider [phone] Issa FARRIS-CSharon Attending Provider Dayanara LEE, Dr. Bazzi Primary Care Provider Dayanara LEE, Dr. Bazzi Referring Provider [phone] Bailey Salcedo Referring Provider Dr. Cheng Camarillo MD Attending Provider Issa FARRIS-CSharon Referring Provider [phone] Kali LEE, Dr. Story Other Provider Dr. Cecilio Siu MD Attending Provider Dr. Porsha Bass DO Attending Provider [phone] [address]. Porsha Bass DO Referring Provider TONEY [...] [Antibiotics] Propensity to adverse reactions 11-29-2024 C-diff [facility] Comment on above: Per patient he needs [...] Refill(s), 07/14/25 5:16:00 PM EDT, Pharmacy: [facility]/pharmacy #4605, 172, cm, 07/04/25 13:52:00 EDT, Height, [...] meds, # 100 tab(s), 1 Refill(s), Pharmacy: [facility] [address], 182.9, cm, 02/22/25 17:36:00 EDT, Height, kg, 02/22/25 17:36:00 EDT, Dosing Weight Start Date: 04/04/25 Stop Date: 10/21/25 Status: Ordered Medication Dispense Status: Completed Quantity: 100.0 Unit: tab(s) Total Allowed Fills: 2 Fills Dispensed: 0 Start: 09-21-2022 take 1 tablet by zach th once daily at bedtime atorvastatin 40 mg oral tablet 1 tab(s), Oral, qHS, # 90 tab(s), 1 Refill(s), Pharmacy: [facility]/pharmacy #4605, 175, cm, 09/21/22 8:31:00 EST, Height, [...] Refill(s), 07/09/25 5:16:00 PM EDT, Pharmacy: [facility]/pharmacy #4605, 172, cm, 07/04/25 13:52:00 EDT, Height, [...] Refill(s), 08/28/24 2:31:00 PM EST, Pharmacy: [facility]/pharmacy #4605, 172, cm, 08/11/24 10:00:00 EST, Height, [...] qDay, # 14 tab(s), 0 Refill(s), Pharmacy: [facility]/pharmacy #4605, 172.7, cm, 12/27/20 12:02:00 EDT, Height, [...] meds, # 100 tab(s), 1 Refill(s), Pharmacy: [facility] [address], 172, cm, 05/23/25 9:57:00 EDT, Height, kg, [...] Refill(s), Pharmacy: [facility]/pharmacy #4605, 172, cm, 08/11/24 10:00:00 EST, Height, [...] # 180 tab(s), 1 Refill(s), [facility], cm, 12/14/23 8:38:00 EDT, Height, kg, 12/14/23 8:38:00 EDT, Dosing Weight Start Date: 03/29/24 Status: Ordered Start: 12-31-2023 Metoprolol Suc cinate ER 100 mg oral TABLET extended release Dose : 100 mg = 1 tab(s), Oral, BID, TAKE 1 TABLET BY MOUTH TWICE A DAY DO NOT CRUSH OR CHEW, # 180 tab(s), 0 Refill(s), Pharmacy: [facility]/pharmacy #4605, 172, cm, 12/14/23 8:38:00 EDT, Height, [...] 55, # 180 tab(s), 1 Refill(s), [facility] 175, cm, 04/16/22 7:17:00 EDT, [...] 55, # 180 tab(s), 1 Refill(s), [facility] 175, cm, 06/16/21 8:33:00 EDT, [...] meds, # 90 tab(s), 1 Refill(s), Pharmacy: [facility] [address], 182.9, cm, 02/22/25 17:36:00 EDT, Height, kg, [...] # 90 tab(s), 0 Refill(s), Pharmacy: [facility]/pharmacy #4605, 172, cm, 02/21/25 9:16:00 EDT, Height, kg, 02/21/25 9:16:00 EDT, Dosing Weight Start Date: 02/21/25 Status: Ordered Quantity: 90.0 Unit: tab(s) Repeat number: 1 Start: 06-28-2024 End: 09-26-2024 sertraline 25 mg oral tablet Dose : 25 mg = 1 tab(s), Oral, qDay, # 90 tab(s), 0 Refill(s), Pharmacy: [facility]/pharmacy #4605, 172, cm, 06/28/24 8:58:00 EDT, Height, kg, 06/28/24 8:49:00 EDT, Dosing Weight Start Date: 06/28/24 Stop Date: 09/26/24 Status: Ordered Quantity: 90.0 Unit: tab(s) Repeat number: 1 [place] [address] mg powder for oral suspension (20 sources) [...] # 90 tab(s), 0 Refill(s), Pharmacy: [facility]/pharmacy #4605, 172, cm, 08/11/24 10:00:00 EST, Height, kg, 08/11/24 10:00:00 EST, Dosing Weight Start Date: 08/14/24 Status: Ordered Quantity: 90.0 Unit: tab(s) Repeat number: 1 Start: 08-14-2024 Vitamin B12 10 00 mcg oral tablet Dose : 1,000 mcg = 1 tab(s), Oral, qDay, # 90 tab(s), 0 Refill(s), Pharmacy: [facility]/pharmacy #4605, 172, cm, 08/11/24 10:00:00 EST, Height, kg, 08/11/24 10:00:00 EST, Dosing Weight Start Date: 08/14/24 Status: Ordered Vitamin B12 500 mcg oral tablet (1 source) Start: 02-22-2025 End: 05-23-2025 Vitamin B12 500 mcg oral tab let Dose : 500 mcg = 1 tab(s), Oral, qDay, # 90 tab(s), 0 Refill(s), Pharmacy: [facility]/pharmacy #4605, 172, cm, 02/21/25 9:16:00 EDT, Height, [...] Refill(s), Pharmacy: [facility]/pharmacy #4605, 175, cm, 06/16/21 8:33:00 EDT, Height, [...] 2018 12:00am February 25, 2021 8:19am nystatin 099082 unt/ml oral suspension (12 sources) Polyene Antifungal Start: 06-16-2018 End: 07-07-2018 take [id number] [IU] by mouth four times daily Nystatin 500,000 UNIT/5 ML suspension Discontinued [id number] U PO 4 TIMES DAILY 150 0 [...] 07-30-2025 Potassium [Moles/Vol] 4.5 mmol/L Normal 3.3-5.1 [facility] Comment on above: Performed By: #### L 500.2500, L501.5200 #### [facility] [place], [address] Potassiumon 07-24-2025 Potassium [Moles/Vol] 4.9 mmol/L Normal 3.3-5.1 [facility] Comment on above: Result Comment: Hemo lysis present, Results??could be affected. ?? Performed By: #### L 501.5600 #### [facility] Laboratory [address], [address] Potassiumon 07-16-2025 Potassium [Moles/Vol] 5.2 mmol/L High 3.3-5.1 [facility] Comment on above: Performed By: #### L 501.5600 #### [facility] Laboratory [address], [address] .GFRon 07-12-2025 Estimated Glomerular Filtration Rate 35 ml/min/1.73sqm Normal [facility] Comment on above: Result Comment: Stages of [...] ADIFF, GFR, CMP, ANEU #### [address] [place], [place] [address] BMPon 07-12-2025 BUN/Creatinine Ratio 17 ratio Normal 7-27 [facility] Comment on above: Order Comment: hemol maya jimenez Performed By: #### C LYNSEY, MDW, MG, ADIFF, GFR, CMP, ANEU #### [address] [place], [place] [address] Calcium [Mass/Vol] 8.5 mg/dL Normal 8.4-10.2 [facility] Comment on above: Order Comment: hemmaya ruiz Performed By: #### C KYUNG MENON, MG, ADIFF, GFR, CMP, ANEU #### [address] [address] Chloride [Moles/Vol] 108 mmol/L High 98-107 [facility] Comment on above: Order Comment: hemmaya ruiz Performed By: #### KYUNG SANTOS, MG, ADIFF, GFR, CMP, ANEU #### [address] [address] CO2 [Moles/Vol] 26 mmol/L Normal 23-31 [facility] Comment on above: Order Comment: hemmaya ruiz Performed By: #### KYUNG SANTOS, MG, ADIFF, GFR, CMP, ANEU #### [address] [address] Creatinine [Mass/Vol] 1.86 mg/dL High 0.67-1.17 [facility] Comment on above: Order Comment: hemmaya ruiz Performed By: #### KYUNG SANTOS, MG, ADIFF, GFR, CMP, ANEU #### [address] [address] Electrolyte Balance 6.0 mEq/L Normal 4.0-15.0 [facility] Comment on above: Order Comment: hemmaya ruiz Performed By: #### KYUNG SANTOS, MG, ADIFF, GFR, CMP, ANEU #### [address] [address] Glucose [Mass/Vol] 162 mg/dL High 83-110 [facility] Comment on above: Order Comment: hemmaya ruiz Performed By: #### KYUNG SANTOS, MG, ADIFF, GFR, CMP, ANEU #### [address] [address] Potassium [Moles/Vol] 5.2 mmol/L High 3.5-5.1 [facility] Comment on above: Order Comment: hemol maya jimenez Performed By: #### C LYNSEY, KYUNG, MG, ADIFF, GFR, CMP, ANEU #### [address] [place], [place] [address] Sodium [Moles/Vol] 140 mmol/L Normal 136-145 [facility] Comment on above: Order Comment: maya rosa Performed By: #### C LYNSEY, KYUNG, MG, ADIFF, GFR, CMP, ANEU #### [address] [place], [place] [address] Urea nitrogen [Mass/Vol] 31 mg/dL High 7-18 [facility] Comment on above: Order Comment: maya rosa Performed By: #### C LYNSEY, KYUNG, MG, ADIFF, GFR, CMP, ANEU #### [address] [place], [place] [address] LABORATORYOrdered By: SYSTEM SYSTEM on 07-12-2025 Calcium [...] [Moles/Vol] 6.0 mmol/L Invalid Interpretation Code 3.3-5.1 [facility] Comment on above: Result Comment: Crit ical Result(s) Called MSHRIVER at: 1832 by: BRIDGETTE??Results read back by same. Performed By: #### L 501.5600 #### [facility] Laboratory [address] [place], [address] XR RIBS 2 VIEWS RIGHTon 06-20 XR [...] 11:17:47 AM Ordering Provider: JLUIS NICHOLE [facility] XR SHOULDER MINIMUM 2 VIEWS RIGHTon [...] 07/06/2025 11:19:30 AM Ordering Provider: JLUIS [facility]ICHO[facility] HEAD OR BRAIN W/O CONTRAS [...] 4:57:02 PM Ordering Provider: JLUIS NICHOLE Normal [facility] Paul 07-05-2025 Potassium [Moles/Vol] 5.3 mmol/L High 3.5-5.1 [facility] Comment on above: Performed By: #### C KYUNG MENON, MG, ADIFF, GFR, CMP, ANEU #### [address] [address] LABORATORYOrdered By: SYSTEM SYSTEM on 07-05-2025 Potassium [Moles/Vol] 5.3 mmol/L High 3.5 - 5.1 mmol/L AO ADM SS .Auto Diffon 07-04-2025 Basophil, Absolute 0.0 10 3/mcL Normal 0.0-0.3 [facility] Comment on above: Performed By: #### C KYUNG MENON, MG, ADIFF, GFR, CMP, ANEU #### [address] [address] Basophils/100 WBC (Bld) 0.7 % Normal 0.0-2.5 [facility] Comment on above: Performed By: #### C KYUNG MENON, MG, ADIFF, GFR, CMP, ANEU #### [address] [address] Eosinophil, Absolute 0.1 10 3/mcL Normal 0.0-0.7 [facility] Comment on above: Performed By: #### C KYUNG MENON, MG, ADIFF, GFR, CMP, ANEU #### [address] [place], [place] [address] Eosinophils/100 WBC (Bld) 1.8 % Normal 0.0-6.0 [facility] Comment on above: Performed By: #### C LYNSEY, KYUNG, MG, ADIFF, GFR, CMP, ANEU #### [address] [address] Lymphocyte, Absolute 1.5 10 3/mcL Normal 0.9-4.3 [facility] Comment on above: Performed By: #### C LYNSEY, W, MG, ADIFF, GFR, CMP, ANEU #### [address] [address] Lymphocytes/100 WBC (Bld) 20.8 % Normal 20.0-40.0 [facility] Comment on above: Performed By: #### C LYNSEY, KYUNG, MG, ADIFF, GFR, CMP, ANEU #### [address] [address] Monocyte, Absolute 0.5 10 3/mcL Normal 0.1-1.4 [facility] Comment on above: Performed By: #### C LYNSEY, W, MG, ADIFF, GFR, CMP, ANEU #### [address] [address] Monocytes/100 WBC (Bld) 7.7 % Normal 2.0-13.0 [facility] Comment on above: Performed By: #### C LYNSEY, KYUNG, MG, ADIFF, GFR, CMP, ANEU #### [address] [address] Neutrophils/100 WBC (Bld) 69.0 % Normal 50.0-75.0 [facility] Comment on above: Performed By: #### C LYNSEY, W, MG, ADIFF, GFR, CMP, ANEU #### [address] [address] .GFRon 07-04-2025 Estimated Glomerular Filtration Rate 36 ml/min/1.73sqm Normal [facility] Comment on above: Result Comment: Stages of [...] MENON, MG, ADIFF, GFR, CMP, ANEU #### [address] [place] [address] .NEUABSon 07-04-2025 Neutrophil, Absolute 4.9 10 3/mcL Normal 2.3-8.1 [facility] Comment on above: Performed By: #### C KYUNG MENON, MG, ADIFF, GFR, CMP, ANEU #### [address] [address] CBCon 07-04-2025 Erythrocyte distribution width (RBC) [Ratio] 16.2 % High 11.5-15.5 [facility] Comment on above: Performed By: #### C KYUNG MENON, MG, ADIFF, GFR, CMP, ANEU #### [address] [address] Hematocrit (Bld) [Volume fraction] 33.6 % Low 40.0-52.0 [facility] Comment on above: Performed By: #### C KYUNG MENON, MG, ADIFF, GFR, CMP, ANEU #### [address] [address] Hgb 11.1 G/dL Low 13.0-17.5 [facility] Comment on above: Performed By: #### C KYUNG MENON, MG, ADIFF, GFR, CMP, ANEU #### [address] [place] [address] MCH (RBC) [Entitic mass] 31.1 pg Normal 27.0-33.0 [facility] Comment on above: Performed By: #### C KYUNG MENON, MG, ADIFF, GFR, CMP, ANEU #### [address] [address] MCHC 32.9 G/dL Normal 32.0-36.0 [facility] Comment on above: Performed By: #### C KYUNG MENON, MG, ADIFF, GFR, CMP, ANEU #### [address] [address] MCV (RBC) [Entitic vol] 94.6 fL Normal 81.0-100.0 [facility] Comment on above: Performed By: #### C KYUNG MENON, MG, ADIFF, GFR, CMP, ANEU #### [address] [address] Platelet 107 10 3/mcL Low 150-450 [facility] Comment on above: Performed By: #### C KYUNG MENON, MG, ADIFF, GFR, CMP, ANEU #### [address] [address] Platelet mean volume (Bld) [Entitic vol] 8.5 fL Normal 6.4-10.5 [facility] Comment on above: Performed By: #### C KYUNG MENON, MG, ADIFF, GFR, CMP, ANEU #### [address] [address] RBC 3.55 10 6/mcL Low 4.50-6.00 [facility] Comment on above: Performed By: #### C KYUNG MENON, MG, ADIFF, GFR, CMP, ANEU #### [address] [address] WBC 7.1 10 3/mcL Normal 4.5-10.8 [facility] Comment on above: Performed By: #### C KYUNG MENON, MG, ADIFF, GFR, CMP, ANEU #### [address] [address] CMPon 07-04-2025 Albumin Level 3.7 G/dL Normal 3.4-4.8 [facility] Comment on above: Performed By: #### C KYUNG MENON, MG, ADIFF, GFR, CMP, ANEU #### [address] [address] Albumin/Globulin [Mass ratio] 1.2 {ratio} Normal 1.1-2.5 [facility] Comment on above: Performed By: #### C LYNSEY, KYUNG, MG, ADIFF, GFR, CMP, ANEU #### [address] [address] ALP [Catalytic activity/Vol] 108 U/L Normal 40-135 [facility] Comment on above: Performed By: #### C LYNSEY, KYUNG, MG, ADIFF, GFR, CMP, ANEU #### [address] [address] ALT/SGPT <6 Low 16-63 [facility] Comment on above: Performed By: #### C KYUNG MENON, MG, ADIFF, GFR, CMP, ANEU #### [address] [address] AST [Catalytic activity/Vol] 12 U/L Normal 10-40 [facility] Comment on above: Performed By: #### C KYUNG MENON, MG, ADIFF, GFR, CMP, ANEU #### [place] [id number] Bili Total 0.7 mg/dL Normal 0.2-1.0 [facility] Comment on above: Result Comment: Use of this assay is not recommended for patients undergoing treatment with eltrombopag due to the potential for falsely elevated results. Performed By: #### C KYUNG MENON, MG, ADIFF, GFR, CMP, ANEU #### [address] [address] BUN/Creatinine Ratio 17 ratio Normal 7-27 [facility] Comment on above: Performed By: #### C KYUNG MENON, MG, ADIFF, GFR, CMP, ANEU #### [address] [place] [address] Calcium [Mass/Vol] 9.1 mg/dL Normal 8.4-10.2 [facility] Comment on above: Performed By: #### C KYUNG MENON, MG, ADIFF, GFR, CMP, ANEU #### [address] [address] Chloride [Moles/Vol] 110 mmol/L High 98-107 [facility] Comment on above: Performed By: #### C KYUNG MEONN, MG, ADIFF, GFR, CMP, ANEU #### [address] [place] [address] CO2 [Moles/Vol] 28 mmol/L Normal 23-31 [facility] Comment on above: Performed By: #### C KYUNG MENON, MG, ADIFF, GFR, CMP, ANEU #### [place] [id number] Creatinine [Mass/Vol] 1.82 mg/dL High 0.67-1.17 [facility] Comment on above: Performed By: #### C KYUNG MENON, MG, ADIFF, GFR, CMP, ANEU #### [address] [address] Electrolyte Balance 5.0 mEq/L Normal 4.0-15.0 [facility] Comment on above: Performed By: #### C KYUNG MENON, MG, ADIFF, GFR, CMP, ANEU #### [address] [address] Globulin 3.1 G/dL Normal 2.7-4.4 [facility] Comment on above: Performed By: #### C KYUNG MENON, MG, ADIFF, GFR, CMP, ANEU #### [address] [address] Glucose [Mass/Vol] 68 mg/dL Low 83-110 [facility] Comment on above: Performed By: #### C KYUNG MENON, MG, ADIFF, GFR, CMP, ANEU #### [address] [address] Potassium [Moles/Vol] 5.4 mmol/L High 3.5-5.1 [facility] Comment on above: Performed By: #### C KYUNG MENON, MG, ADIFF, GFR, CMP, ANEU #### [address] [place], [place] [address] Sodium [Moles/Vol] 143 mmol/L Normal 136-145 [facility] Comment on above: Performed By: #### C KYUNG MENON, MG, ADIFF, GFR, CMP, ANEU #### [address] [place], [place] [address] Total Protein 6.8 G/dL Normal 6.4-8.2 [facility] Comment on above: Performed By: #### C KYUNG MENON, MG, ADIFF, GFR, CMP, ANEU #### [address] [place], [place] [address] Urea nitrogen [Mass/Vol] 31 mg/dL High 7-18 [facility] Comment on above: Performed By: #### C KYUNG MENON, MG, ADIFF, GFR, CMP, ANEU #### [address] [address] LABORATORYOrdered By: SYSTEM SYSTEM on 07-04-2025 Albumin [...] Urine No growth at 48 hours. [facility] Work Phone: PBNPon 07-04-2025 Natriuretic peptide B (Bld) [Mass/Vol] 1302 pg/mL High 0-450 [facility] Comment on above: Result Comment: NT-p roBNP results of less than 300 pg/mL effectively rules out acute congestive heart failure with 99% negative predictive value. Performed By: #### C BC, MDW, MG, ADIFF, GFR, CMP, ANEU #### [facility] [address] [place], [place] [address] XR CHEST 2 VIEWSon XR CHEST 2 [...] PM Ordering Provider: JLUIS NICHOLE RP Normal [facility] XR HUMERUS MINIMUM 2 VIEWS R Ralph [...] PM Ordering Provider: JLUIS NICHOLE RP Normal [facility] Neurology Visit Reporton Neurology Visit Report [facility] [address] [facility], [address] [place] [address] OFFICE VISIT Date of Service: 06/11/25 MR#: [id number] Acct: [id number] Name: EKATERINA RANDHAWA Rep #: [id number] : 1940 Provider: Dr. Braxton garg MD Age/Sex: 85/M [place] [facility] [place] Status: Signed HPI [facility] Chief Complaint: Details: Interim History: Ekaterina [...] this began during his hospitalization for his VA/CABG and may have been procedure related). He [...] pattern). Head (more content not included)... Normal [facility] Anion gap in Serum or Plasma Ordered By: Porsha Bass on 04-26-2025 Anion gap [Moles/Vol] 11 mmol/L - [facility] BUN/creatinine ratioOrdered By: Porsha Bass on 04-26-2025 Urea nitrogen/Creatinine [Mass ratio] 14.1 mg/mg - [facility] Basic Metabolic Profile (BMP )on 04-26-2025 BUN/CRE 14.1 RATIO Normal 07-09 [facility] Comment on above: Performed By: #### L 500.2500 #### [facility] [place], [address] Calcium [Mass/Vol] 9.1 mg/dL Normal 7.6-11.0 [facility] Comment on above: Performed By: #### L 500.2500 #### [facility] Laboratory [address] [place], [address] Chloride [Moles/Vol] 106 mmol/L Normal 98-108 [facility] Comment on above: Performed By: #### L 500.2500 #### [facility] Laboratory [address] [place], [address] CO2 [Moles/Vol] 20.7 mmol/L Low 21.0-32.0 [facility] Comment on above: Performed By: #### L 500.2500 #### [facility] [address] [place], [address] Creatinine [Mass/Vol] 1.85 mg/dL High 0.70-1.20 [facility] Comment on above: Performed By: #### L 500.2500 #### [facility] [address] [place], [address] GAP 11 Normal 5-15 [facility] Comment on above: Performed By: #### L 500.2500 #### [facility] [address] [place], [address] GFR/1.73 sq M.predicted among non-blacks MDRD (S/P/Bld) [Vol rate/Area] 35 mL/min/{1.73_m2} Low >60 [facility] Comment on above: Result Comment: mL/m in/1.73m2 CKD-EPI Creatinine Equation (2020) Performed By: #### L 500.2500 #### [facility] Laboratory [address] [place], [address] Glucose [Mass/Vol] 174 mg/dL High 70-99 [facility] Comment on above: Performed By: #### L 500.2500 #### [facility] [address] [place], [address] Potassium [Moles/Vol] 4.4 mmol/L Normal 3.3-5.1 [facility] Comment on above: Performed By: #### L 500.2500 #### [facility] Laboratory [address] [place], [place], [id number] Sodium [Moles/Vol] 138 mmol/L Normal 133-145 [facility] Comment on above: Performed By: #### L 500.2500 #### [facility] Laboratory [address] [place], [address] Urea nitrogen [Mass/Vol] 26 mg/dL High 4-19 [facility] Comment on above: Performed By: #### L 500.2500 #### [facility] [address] [place], [address] Carbon dioxide, total [Moles /volume] in Central venous bloodOrdered By: Porsha Bass on 04-26-2025 CO2 [Moles/Vol] 20.7 mmol/L Low 21.0-32.0 [facility] Chloride assayOrdered By: Kev Bass on 04-26-2025 Chloride [Moles/Vol] 106 mmol/L 98-108 [facility] Glomerular filtration rate ( GFR) estimation/1.73 sq m using serum, plasma, or whole bOrdered By: Porsha Bass on 04-26-2025 GFR/1.73 sq M.predicted among non-blacks MDRD (S/P/Bld) [Vol rate/Area] 35 mL/min/{1.73_m2} Low >60 [facility] Comment on above: mL/min/1.73m2 CKD-EP I Creatinine Equation (2020) Kidney and Bladderon 025 Kidney and Bladder [facility] Imaging Services [address] [place], [place] [address] Kidney and Bladder MR#: [id number] Acct: [id number] Name: EKATERINA RANDHAWA Rep #: [id number] : 1940 M 85 From: Konrad gaston MD PCP: Dr. Jluis Nichole, DO Status: REG CLI Study: Kidney and Bladder Date of Exam: 04/26/25 Exam# [id number] Ordering Dr: Porsha Bass DO PROCEDURE: KIDNEY AND BLADDER 04/26/2025 REASON FOR EXAM: HYPERKALEMIA TECHNIQUE: KIDNEY AND BLADDER COMPARISON: None FINDINGS: Kidneys: Normal renal sizes, parenchymal thicknesses, and echotextures. [place]: No evidence of hydronephrosis. Cysts or Masses: [...] Bladder IMPRESSION: NORMAL RENAL ULTRASOUND. Reading Location: [id number] CC: Dr. Porsha Bass DO; Dr. Jluis Nichole DO Toll Gate Keeper: Signed Normal [facility] Potassium measurement (mass/ volume)Ordered By: Porsha Bass on 04-26-2025 Potassium (Unsp spec) [Mass/Vol] 4.4 mmol/L 3.3-5.1 [facility] Serum creatinine measurement (mass/volume)Ordered By: Porsha Bass on 04-26-2025 Creatinine [Mass/Vol] 1.85 mg/dL High 0.70-1.20 [facility] Serum glucose measurement (m ass/volume)Ordered By: Porsha Bass on 04-26-2025 Glucose [Mass/Vol] 174 mg/dL High 70-99 [facility] Serum or plasma calcium franc[place] urement (mass/volume)Ordered By: Porsha Bass on 04-26-2025 Calcium [Mass/Vol] 9.1 mg/dL 7.6-11.0 [facility] Serum or plasma urea nitroge n measurement (mass/volume)Ordered By: Porsha Bass on 04-26-2025 Urea nitrogen [Mass/Vol] 26 mg/dL High 4-19 [facility] Sodium levelOrdered By: Seth Bass on 04-26-2025 Sodium [Moles/Vol] 138 mmol/L 133-145 [facility] Anion gap in Serum or Plasma Ordered By: Porsha Bass on 04-19-2025 Anion gap [Moles/Vol] 10 mmol/L - [facility] BUN/creatinine ratioOrdered By: Porsha Bass on 04-19-2025 Urea nitrogen/Creatinine [Mass ratio] 13.8 mg/mg 07-09 [facility] Basic Metabolic Profile (BMP )on 04-19-2025 BUN/CRE 13.8 RATIO Normal 07-09 [facility] Comment on above: Performed By: #### L 500.2500 #### [facility] Laboratory [address] [place], [address] Calcium [Mass/Vol] 9.1 mg/dL Normal 7.6-11.0 [facility] Comment on above: Performed By: #### L 500.2500 #### [facility] Laboratory [address] [place], [address] Chloride [Moles/Vol] 107 mmol/L Normal 98-108 [facility] Comment on above: Performed By: #### L 500.2500 #### [facility] Laboratory [address] [place], [address] CO2 [Moles/Vol] 23.5 mmol/L Normal 21.0-32.0 [facility] Comment on above: Performed By: #### L 500.2500 #### [facility] Laboratory [address] [place], [address] Creatinine [Mass/Vol] 1.99 mg/dL High 0.70-1.20 [facility] Comment on above: Performed By: #### L 500.2500 #### [facility] [address] [place], [address] GAP 10 Normal - [facility] Comment on above: Performed By: #### L 500.2500 #### [facility] [address] [place], [address] GFR/1.73 sq M.predicted among non-blacks MDRD (S/P/Bld) [Vol rate/Area] 32 mL/min/{1.73_m2} Low >60 [facility] Comment on above: Result Comment: mL/m in/1.73m2 CKD-EPI Creatinine Equation (2020) Performed By: #### L 500.2500 #### [facility] [address] [place], [address] Glucose [Mass/Vol] 117 mg/dL High 70-99 [facility] Comment on above: Performed By: #### L 500.2500 #### [facility] [address] [place], [address] Potassium [Moles/Vol] 5.7 mmol/L High 3.3-5.1 [facility] Comment on above: Performed By: #### L 500.2500 #### [facility] [address] [place], [address] Sodium [Moles/Vol] 140 mmol/L Normal 133-145 [facility] Comment on above: Performed By: #### L 500.2500 #### [facility] [address] [place], [address] Urea nitrogen [Mass/Vol] 27 mg/dL High 4-19 [facility] Comment on above: Performed By: #### L 500.2500 #### [facility] [address] [place], [address] Carbon dioxide, total [Moles /volume] in Central venous bloodOrdered By: Porsha Bass on 04-19-2025 CO2 [Moles/Vol] 23.5 mmol/L 21.0-32.0 [facility] Chloride assayOrdered By: Kev Bass on 04-19-2025 Chloride [Moles/Vol] 107 mmol/L 98-108 [facility] Glomerular filtration rate ( GFR) estimation/1.73 sq m using serum, plasma, or whole bOrdered By: Porsha Bass on 04-19-2025 GFR/1.73 sq M.predicted among non-blacks MDRD (S/P/Bld) [Vol rate/Area] 32 mL/min/{1.73_m2} Low >60 [facility] Comment on above: mL/min/1.73m2 CKD-EP I Creatinine Equation (2020) Potassium measurement (mass/ volume)Ordered By: Porsha Bass on 04-19-2025 Potassium (Unsp spec) [Mass/Vol] 5.7 mmol/L High 3.3-5.1 [facility] Serum creatinine measurement (mass/volume)Ordered By: Porsha Bass on 04-19-2025 Creatinine [Mass/Vol] 1.99 mg/dL High 0.70-1.20 [facility] Serum glucose measurement (m ass/volume)Ordered By: Porsha Bass on 04-19-2025 Glucose [Mass/Vol] 117 mg/dL High 70-99 [facility] Serum or plasma calcium francisco urement (mass/volume)Ordered By: Porsha Bass on 04-19-2025 Calcium [Mass/Vol] 9.1 mg/dL 7.6-11.0 [facility] Serum or plasma urea nitroge n measurement (mass/volume)Ordered By: Porsha Bass on 04-19-2025 Urea nitrogen [Mass/Vol] 27 mg/dL High 4-19 [facility] Sodium levelOrdered By: Seth Bass on 04-19-2025 Sodium [Moles/Vol] 140 mmol/L 133-145 [facility] Anion gap in Serum or Plasma Ordered By: Porsha Bass on 04-10-2025 Anion gap [Moles/Vol] 10 mmol/L 5-15 [facility] BUN/creatinine ratioOrdered By: Porsha Bass on 04-10-2025 Urea nitrogen/Creatinine [Mass ratio] 16.9 mg/mg 10- [facility] Basic Metabolic Profile (BMP )on 04-10-2025 BUN/CRE 16.9 RATIO Normal - [facility] Comment on above: Performed By: #### L 500.2500, L501.5200 #### [facility] Laboratory [facility] [address], [address] Calcium [Mass/Vol] 9.4 mg/dL Normal 7.6-11.0 [facility] Comment on above: Performed By: #### L 500.2500, L501.5200 #### [facility] Laboratory [address] [place], [address] Chloride [Moles/Vol] 107 mmol/L Normal 98-108 [facility] Comment on above: Performed By: #### L 500.2500, L501.5200 #### [facility] [address] [place], [address] CO2 [Moles/Vol] 23.1 mmol/L Normal 21.0-32.0 [facility] Comment on above: Performed By: #### L 500.2500, L501.5200 #### [facility] Laboratory [address] [place], [address] Creatinine [Mass/Vol] 1.80 mg/dL High 0.70-1.20 [facility] Comment on above: Performed By: #### L 500.2500, L501.5200 #### [facility] Laboratory [address] [place], [address] GAP 10 Normal 5-15 [facility] Comment on above: Performed By: #### L 500.2500, L501.5200 #### [facility] [address] [place], [address] GFR/1.73 sq M.predicted among non-blacks MDRD (S/P/Bld) [Vol rate/Area] 36 mL/min/{1.73_m2} Low >60 [facility] Comment on above: Result Comment: mL/m in/1.73m2 CKD-EPI Creatinine Equation (2020) Performed By: #### L 500.2500, L501.5200 #### [facility] Laboratory [address] [place], [address] Glucose [Mass/Vol] 129 mg/dL High 70-99 [facility] Comment on above: Performed By: #### L 500.2500, L501.5200 #### [facility] Laboratory [address] [place], [address] Potassium [Moles/Vol] 5.5 mmol/L High 3.3-5.1 [facility] Comment on above: Performed By: #### L 500.2500, L501.5200 #### [facility] Laboratory [address] [place], [address] Sodium [Moles/Vol] 140 mmol/L Normal 133-145 [facility] Comment on above: Performed By: #### L 500.2500, L501.5200 #### [facility] [address] [place], [address] Urea nitrogen [Mass/Vol] 30 mg/dL High 4-19 [facility] Comment on above: Performed By: #### L 500.2500, L501.5200 #### [facility] Laboratory [address] [place], [address] Carbon dioxide, total [Moles /volume] in Central venous bloodOrdered By: Porsha Bass on 04-10-2025 CO2 [Moles/Vol] 23.1 mmol/L 21.0-32.0 [facility] Carotid Duplex Ultrasoundon 04-10-2025 Carotid Duplex Ultrasound [facility] [address] [address] Carotid Duplex Ultrasound 04/10/25 1303 MR#: [id number] Acct: [id number] Name: EKATERINA RANDHAWA Rep #: [id number] : 1940 85 From: Cecilio Siu MD Attending Dr: WON FernándezC Status: REG C KELVIN Ordering Dr: Sharon Parsons LABOR EXPEDITER-C Date: 04/10/25 Location: [facility] Sex: M C Admitted: Reason For Study [...] the left vertebral artery. Procedure Carotid Duplex 28960. This is a Carotid Duplex examination using B-mode, color flow and specral Doppler. Exam performed in department. VL/Carotid Duplex Ultrasound Interpretation Summary Mild (<50%) stenosis right extracranial internal carotid. Mild (<50%) stenosis left extracranial internal carotid. Patent and antegrade vertebrals bilaterally. ___ Ordering Physician: Sharon Parsons Referring Physician: Jluis Nichole DO Performed By: Arelis Boyer, RVT 04/10/25 1425 Date Cecilio Siu MD CC: LABOR EXPEDITER-C Sharon Parsons; Dr. Jluis Nichole DO Date Dictated: 04/10/25 1303 Date Transcribed: 04/10/25 142 Toll Gate Keeper: Signed Normal [facility] Chloride assayOrdered By: Kev Bass on 04-10-2025 Chloride [Moles/Vol] 107 mmol/L 98-108 [facility] Duplex ultrasound of carotid artery reportOrdered By: Cecilio Siu on 04-10-2025 Study report [facility] [address] [place] [address] Carotid Duplex Ultrasound 04/10/25 1303 MR#: [id number] Acct: [id number] Name: EKATERINA RANDHAWA Rep #:[id number] : 1940 85 From: Cecilio Bautista Attending Dr: OBIE Fernández S tatus: REG CLI Ordering Dr: Sharon Parsons Date: 04/10/25 Location: [facility] Sex: M C Admitted: Reason For Study [...] the left vertebral artery. Procedure Carotid Duplex 94416. This is a Carotid Duplex examination using [...] Dictated: 04/10/25 1303 Date Transcribed: 04/10/25 1425 Toll Gate Keeper: Signed [facility] Work Phone: Glomerular filtration rate ( GFR) estimation/1.73 sq m using serum, plasma, or whole bOrdered By: Porsha Bass on 04-10-2025 GFR/1.73 sq M.predicted among non-blacks MDRD (S/P/Bld) [Vol rate/Area] 36 mL/min/{1.73_m2} Low >60 [facility] Comment on above: mL/min/1.73m2 CKD-EP I Creatinine Equation (2020) Magnesiumon 04-10-2025 Magnesium [Mass/Vol] 2.0 mg/dL Normal 1.5-2.2 [facility] Comment on above: Performed By: #### L 500.2500, L501.5200 #### [facility] Laboratory [address] [place], [address] Magnesium measurement (mass/ volume)Ordered By: Porsha Bass on 04-10-2025 Magnesium (Unsp spec) [Mass/Vol] 2.0 mg/dL 1.5-2.2 [facility] Potassium measurement (mass/ volume)Ordered By: Porsha Bass on 04-10-2025 Potassium (Unsp spec) [Mass/Vol] 5.5 mmol/L High 3.3-5.1 [facility] Serum creatinine measurement (mass/volume)Ordered By: Porsha Bass on 04-10-2025 Creatinine [Mass/Vol] 1.80 mg/dL High 0.70-1.20 [facility] Serum glucose measurement (m ass/volume)Ordered By: Porsha Bass on 04-10-2025 Glucose [Mass/Vol] 129 mg/dL High 70-99 [facility] Serum or plasma calcium francisco urement (mass/volume)Ordered By: Porsha Bass on 04-10-2025 Calcium [Mass/Vol] 9.4 mg/dL 7.6-11.0 [facility] Serum or plasma urea nitroge n measurement (mass/volume)Ordered By: Porsha Bass on 04-10-2025 Urea nitrogen [Mass/Vol] 30 mg/dL High 4-19 [facility] Sodium levelOrdered By: Seth Bass on 04-10-2025 Sodium [Moles/Vol] 140 mmol/L 133-145 [facility] Echo Completeon 03-28-2025 Echo Complete [facility] [address] [place] [address] Echo Complete 03/28/25 1258 MR#: [id number] Acct: [id number] Name: EKATERINA RANDHAWA Rep #: [id number] : 1940 85 From: Cheng Camarillo MD Attending Dr: DG Fontana Status: REG CLI Ordering Dr: Bailey Howe Date: 06/14 Location: [facility] Sex: M C Admitted: Reason For Study [...] [place] Date Dictated: 03/28/251257 Date Transcribed: 03/28/251840 Toll Gate Keeper: Signed Normal [facility] Echocardiogram study reportO rdered By: Cheng Camarillo on 03-28-2025 Study report [facility] [address] [place] [address] Echo Complete 03/28/25 1258 MR#: [id number] Acct: [id number] Name: EKATERINA RANDHAWA Rep #:[id number] : 1940 85 From: Cheng Bautista Attending [...] Date Dictated: 03/28/25 1258 Date Transcribed: 03/28/251840 Toll Gate Keeper: Signed [facility] Work Phone: Neurology Visit Reporton Neurology Visit Report [facility] [address], [address] [place] [address] OFFICE VISIT Date of Service: 03/28/25 MR#: [id number] Acct: [id number] Name: EKATERINA RANDHAWA Rep #: [id number] : 1940 Provider: OBIE key Age/Sex: 85/M [place] [facility] Status: Signed [facility] HPI Chief Complaint: Details: Interim History: [...] this began during his hospitalization for his VA/CABG and may have been procedure related). He [...] acute o (more content not included)... 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 Encounter Status:Closed by DEB OROZCO on 06/07/25 Normal [facility] INTABon 02-24-2025 Intrinsic Factor Abs 0.9 Au/mL Normal 0.0-1.1 [facility] Comment on above: Result Comment: Perf ormed At: [facility] [id number] Jacques Ferrell MD Ph:[phone] Performed By: #### C KYUNG MENON, MG, ADIFF, GFR, CMP, ANEU #### [address] [address] .Auto Diffon 02-22-2025 Basophil, Absolute 0.1 10 3/mcL Normal 0.0-0.3 [facility] Comment on above: Performed By: #### C KYUNG MENON, MG, ADIFF, GFR, CMP, ANEU #### [address] [address] Basophils/100 WBC (Bld) 1.4 % Normal 0.0-2.5 [facility] Comment on above: Performed By: #### C KYUNG MENON, MG, ADIFF, GFR, CMP, ANEU #### [address] [address] Eosinophil, Absolute 0.1 10 3/mcL Normal 0.0-0.7 [facility] Comment on above: Performed By: #### C LYNSEY, KYUNG, MG, ADIFF, GFR, CMP, ANEU #### [address] [address] Eosinophils/100 WBC (Bld) 2.0 % Normal 0.0-6.0 [facility] Comment on above: Performed By: #### C KYUNG MENON, MG, ADIFF, GFR, CMP, ANEU #### [address] [address] Lymphocyte, Absolute 1.5 10 3/mcL Normal 0.9-4.3 [facility] Comment on above: Performed By: #### C KYUNG MENON, MG, ADIFF, GFR, CMP, ANEU #### [address] [address] Lymphocytes/100 WBC (Bld) 26.0 % Normal 20.0-40.0 [facility] Comment on above: Performed By: #### C KYUNG MENON, MG, ADIFF, GFR, CMP, ANEU #### [address] [address] Monocyte, Absolute 0.5 10 3/mcL Normal 0.1-1.4 [facility] Comment on above: Performed By: #### C KYUNG MENON, MG, ADIFF, GFR, CMP, ANEU #### [address] [address] Monocytes/100 WBC (Bld) 7.8 % Normal 2.0-13.0 [facility] Comment on above: Performed By: #### C KYUNG MENON, MG, ADIFF, GFR, CMP, ANEU #### [address] [address] Neutrophils/100 WBC (Bld) 62.8 % Normal 50.0-75.0 [facility] Comment on above: Performed By: #### C BC, MDW, MG, ADIFF, GFR, CMP, ANEU #### [address] [address] .GFRon 02-22-2025 Estimated Glomerular Filtration Rate 30 ml/min/1.73sqm Normal [facility] Comment on above: Result Comment: Stages of [...] MDW, MG, ADIFF, GFR, CMP, ANEU #### [place] [address] .MDWon 02-22-2025 Monocyte Distribution Width 17.57 Normal 0.00-20.00 [facility] Comment on above: Result Comment: For ED adult patients suspected of sepsis, MDW<=20.0 does not rule out sepsis or risk of sepsis Performed By: #### C BC, MDW, MG, ADIFF, GFR, CMP, ANEU #### [place] [address] .NEUABSon 02-22-2025 Neutrophil, Absolute 3.6 10 3/mcL Normal 2.3-8.1 [facility] Comment on above: Performed By: #### C BC, MDW, MG, ADIFF, GFR, CMP, ANEU #### [place] [address] CBCon 02-22-2025 Erythrocyte distribution width (RBC) [Ratio] 15.6 % High 11.5-15.5 [facility] Comment on above: Performed By: #### C BC, MDW, MG, ADIFF, GFR, CMP, ANEU #### [place] [address] Hematocrit (Bld) [Volume fraction] 32.7 % Low 40.0-52.0 [facility] Comment on above: Performed By: #### C KYUNG MENON, MG, ADIFF, GFR, CMP, ANEU #### [place] [address] Hgb 10.8 G/dL Low 13.0-17.5 [facility] Comment on above: Performed By: #### C KYUNG MENON, MG, ADIFF, GFR, CMP, ANEU #### [place] [address] MCH (RBC) [Entitic mass] 29.5 pg Normal 27.0-33.0 [facility] Comment on above: Performed By: #### C KYUNG MENON, MG, ADIFF, GFR, CMP, ANEU #### [place] [address] MCHC 33.0 G/dL Normal 32.0-36.0 [facility] Comment on above: Performed By: #### C KYUNG MENON, MG, ADIFF, GFR, CMP, ANEU #### [place] [address] MCV (RBC) [Entitic vol] 89.5 fL Normal 81.0-100.0 [facility] Comment on above: Performed By: #### C KYUNG MENON, MG, ADIFF, GFR, CMP, ANEU #### [place] [address] Platelet 104 10 3/mcL Low 150-450 [facility] Comment on above: Performed By: #### C KYUNG MENON, MG, ADIFF, GFR, CMP, ANEU #### [place] [address] Platelet mean volume (Bld) [Entitic vol] 7.2 fL Normal 6.4-10.5 [facility] Comment on above: Performed By: #### C KYUNG MENON, MG, ADIFF, GFR, CMP, ANEU #### [address] [address] RBC 3.65 10 6/mcL Low 4.50-6.00 [facility] Comment on above: Performed By: #### C KYUNG MENON, MG, ADIFF, GFR, CMP, ANEU #### [address] [address] WBC 5.8 10 3/mcL Normal 4.5-10.8 [facility] Comment on above: Performed By: #### C KYUNG MENON, MG, ADIFF, GFR, CMP, ANEU #### [address] [address] CMPon 02-22-2025 ALT [Catalytic activity/Vol] 9 U/L Low 16-63 [facility] Comment on above: Performed By: #### C KYUNG MENON, MG, ADIFF, GFR, CMP, ANEU #### [address] [address] Albumin Level 3.7 G/dL Normal 3.4-4.8 [facility] Comment on above: Performed By: #### C KYUNG MENON, MG, ADIFF, GFR, CMP, ANEU #### [address] [address] Albumin/Globulin [Mass ratio] 1.3 {ratio} Normal 1.1-2.5 [facility] Comment on above: Performed By: #### C KYUNG MENON, MG, ADIFF, GFR, CMP, ANEU #### [address] [address] ALP [Catalytic activity/Vol] 99 U/L Normal 40-135 [facility] Comment on above: Performed By: #### C KYUNG MENON, MG, ADIFF, GFR, CMP, ANEU #### [address] [address] AST [Catalytic activity/Vol] 14 U/L Normal 10-40 [facility] Comment on above: Performed By: #### C KYUNG MENON, MG, ADIFF, GFR, CMP, ANEU #### [address] [address] Bili Total 0.5 mg/dL Normal 0.2-1.0 [facility] Comment on above: Result Comment: Use of this assay is not recommended for patients undergoing treatment with eltrombopag due to the potential for falsely elevated results. Performed By: #### C LYNSEY, KYUNG, MG, ADIFF, GFR, CMP, ANEU #### [address] [address] BUN/Creatinine Ratio 16 ratio Normal 7-27 [facility] Comment on above: Performed By: #### C KYUNG MENON, MG, ADIFF, GFR, CMP, ANEU #### [address] [address] Calcium [Mass/Vol] 8.9 mg/dL Normal 8.4-10.2 [facility] Comment on above: Performed By: #### C KYUNG MENON, MG, ADIFF, GFR, CMP, ANEU #### [address] [address] Chloride [Moles/Vol] 106 mmol/L Normal 98-107 [facility] Comment on above: Performed By: #### C KYUNG MENON, MG, ADIFF, GFR, CMP, ANEU #### [address] [address] CO2 [Moles/Vol] 28 mmol/L Normal 23-31 [facility] Comment on above: Performed By: #### C KYUNG MENON, MG, ADIFF, GFR, CMP, ANEU #### [address] [address] Creatinine [Mass/Vol] 2.12 mg/dL High 0.67-1.17 [facility] Comment on above: Performed By: #### C KYUNG MENON, MG, ADIFF, GFR, CMP, ANEU #### [address] [address] Electrolyte Balance 7.0 mEq/L Normal 4.0-15.0 [facility] Comment on above: Performed By: #### C KYUNG MENON, MG, ADIFF, GFR, CMP, ANEU #### [address] [address] Globulin 2.8 G/dL Normal 2.7-4.4 [facility] Comment on above: Performed By: #### C KYUNG MENON, MG, ADIFF, GFR, CMP, ANEU #### [address] [address] Glucose [Mass/Vol] 113 mg/dL High 83-110 [facility] Comment on above: Performed By: #### C KYUNG MENON, MG, ADIFF, GFR, CMP, ANEU #### [address] [address] Potassium [Moles/Vol] 4.7 mmol/L Normal 3.5-5.1 [facility] Comment on above: Performed By: #### C KYUNG MENON, MG, ADIFF, GFR, CMP, ANEU #### [address] [address] Sodium [Moles/Vol] 141 mmol/L Normal 136-145 [facility] Comment on above: Performed By: #### C KYUNG MENON, MG, ADIFF, GFR, CMP, ANEU #### [address] [address] Total Protein 6.5 G/dL Normal 6.4-8.2 [facility] Comment on above: Performed By: #### C KYUNG MENON, MG, ADIFF, GFR, CMP, ANEU #### [address] [address] Urea nitrogen [Mass/Vol] 34 mg/dL High 7-18 [facility] Comment on above: Performed By: #### C KYUNG MENON, MG, ADIFF, GFR, CMP, ANEU #### [address] [address] Jimmy 02-22-2025 Gastrin 113 pg/mL Normal 0-115 [facility] Comment on above: Result Comment: Siem Immulite 2000 Immunochemiluminometric assay (ICMA) Values obtained with different assay methods or kits cannot be used interchangeably. Results cannot be interpreted as absolute evidence of the presence or absence of malignant disease. Performed At: [facility] [id number] Jacques Ferrell MD Ph:[phone] Performed By: #### C BC, MDW, MG, ADIFF, GFR, CMP, ANEU #### [facility] [address] [place], [place] [address] LABORATORYOrdered By: SYSTEM SYSTEM on 02-22-2025 Albumin [...] 02-22-2025 Magnesium [Mass/Vol] 1.8 mg/dL Normal 1.8-2.4 [facility] Comment on above: Performed By: #### C BC, MDW, MG, ADIFF, GFR, CMP, ANEU #### [place] [address] .Auto Diffon 06-04-2025 Basophil, Absolute 0.0 10 3/mcL Normal 0.0-0.3 [facility] Comment on above: Performed By: #### C LYNSEY, KYUNG, MG, ADIFF, GFR, CMP, ANEU #### [address] [address] Basophils/100 WBC (Bld) 0.6 % Normal 0.0-2.5 [facility] Comment on above: Performed By: #### C BC, W, MG, ADIFF, GFR, CMP, ANEU #### [address] [address] Eosinophil, Absolute 0.1 10 3/mcL Normal 0.0-0.7 [facility] Comment on above: Performed By: #### C LYNSEY, KYUNG, MG, ADIFF, GFR, CMP, ANEU #### [address] [address] Eosinophils/100 WBC (Bld) 2.4 % Normal 0.0-6.0 [facility] Comment on above: Performed By: #### C KYUNG MENON, MG, ADIFF, GFR, CMP, ANEU #### [address] [address] Lymphocyte, Absolute 1.5 10 3/mcL Normal 0.9-4.3 [facility] Comment on above: Performed By: #### C LYNSEY, W, MG, ADIFF, GFR, CMP, ANEU #### [address] [address] Lymphocytes/100 WBC (Bld) 24.4 % Normal 20.0-40.0 [facility] Comment on above: Performed By: #### C LYNSEY, KYUNG, MG, ADIFF, GFR, CMP, ANEU #### [address] [address] Monocyte, Absolute 0.4 10 3/mcL Normal 0.1-1.4 [facility] Comment on above: Performed By: #### C LYNSEY, W, MG, ADIFF, GFR, CMP, ANEU #### [address] [address] Monocytes/100 WBC (Bld) 6.1 % Normal 2.0-13.0 [facility] Comment on above: Performed By: #### C KYUNG MENON, MG, ADIFF, GFR, CMP, ANEU #### [address] [address] Neutrophils/100 WBC (Bld) 66.5 % Normal 50.0-75.0 [facility] Comment on above: Performed By: #### C KYUNG MENON, MG, ADIFF, GFR, CMP, ANEU #### [address] [address] .GFRon 02-21-2025 Estimated Glomerular Filtration Rate 31 ml/min/1.73sqm Normal [facility] Comment on above: Result Comment: Stages of [...] MENON, MG, ADIFF, GFR, CMP, ANEU #### [address] [address] .NEUABSon 02-21-2025 Neutrophil, Absolute 4.0 10 3/mcL Normal 2.3-8.1 [facility] Comment on above: Performed By: #### C KYUNG MENON, MG, ADIFF, GFR, CMP, ANEU #### [address] [place], [place] [address] B12on 02-21-2025 Cobalamin (Vitamin B12) [Mass/Vol] 1629 pg/mL High 211-911 [facility] Comment on above: Performed By: #### C KYUNG MENON, MG, ADIFF, GFR, CMP, ANEU #### [address] [address] BMPon 02-21-2025 BUN/Creatinine Ratio 15 ratio Normal 7-27 [facility] Comment on above: Performed By: #### C LYNSEY, KYUNG, MG, ADIFF, GFR, CMP, ANEU #### [place] [address] Calcium [Mass/Vol] 9.3 mg/dL Normal 8.4-10.2 [facility] Comment on above: Performed By: #### C KYUNG MENON, MG, ADIFF, GFR, CMP, ANEU #### [place] [address] Chloride [Moles/Vol] 106 mmol/L Normal 98-107 [facility] Comment on above: Performed By: #### C KYUNG MENON, MG, ADIFF, GFR, CMP, ANEU #### [place] [id number] CO2 [Moles/Vol] 29 mmol/L Normal 23-31 [facility] Comment on above: Performed By: #### C KYUNG MENON, MG, ADIFF, GFR, CMP, ANEU #### [address] [address] Creatinine [Mass/Vol] 2.09 mg/dL High 0.67-1.17 [facility] Comment on above: Performed By: #### C KYUNG MENON, MG, ADIFF, GFR, CMP, ANEU #### [address] [address] Electrolyte Balance 6.0 mEq/L Normal 4.0-15.0 [facility] Comment on above: Performed By: #### C KYUNG MENON, MG, ADIFF, GFR, CMP, ANEU #### [place] [address] Glucose [Mass/Vol] 110 mg/dL Normal 83-110 [facility] Comment on above: Performed By: #### C KYUNG MENON, MG, ADIFF, GFR, CMP, ANEU #### [address] [address] Potassium [Moles/Vol] 6.0 mmol/L High 3.5-5.1 [facility] Comment on above: Performed By: #### C KYUNG MENON, MG, ADIFF, GFR, CMP, ANEU #### [place] [address] Sodium [Moles/Vol] 141 mmol/L Normal 136-145 [facility] Comment on above: Performed By: #### C KYUNG MENON, MG, ADIFF, GFR, CMP, ANEU #### [place] [address] Urea nitrogen [Mass/Vol] 32 mg/dL High 7-18 [facility] Comment on above: Performed By: #### C KYUNG MENON, MG, ADIFF, GFR, CMP, ANEU #### [place] [address] CBCon 02-21-2025 Erythrocyte distribution width (RBC) [Ratio] 15.6 % High 11.5-15.5 [facility] Comment on above: Performed By: #### C KYUNG MENON, MG, ADIFF, GFR, CMP, ANEU #### [place] [address] Hematocrit (Bld) [Volume fraction] 32.6 % Low 40.0-52.0 [facility] Comment on above: Performed By: #### C KYUNG MENON, MG, ADIFF, GFR, CMP, ANEU #### [place] [address] Hgb 10.9 G/dL Low 13.0-17.5 [facility] Comment on above: Performed By: #### C KYUNG MENON, MG, ADIFF, GFR, CMP, ANEU #### [place] [address] MCH (RBC) [Entitic mass] 29.8 pg Normal 27.0-33.0 [facility] Comment on above: Performed By: #### C KYUNG MENON, MG, ADIFF, GFR, CMP, ANEU #### [address] [address] MCHC 33.3 G/dL Normal 32.0-36.0 [facility] Comment on above: Performed By: #### C KYUNG MENON, MG, ADIFF, GFR, CMP, ANEU #### [place] [address] MCV (RBC) [Entitic vol] 89.5 fL Normal 81.0-100.0 [facility] Comment on above: Performed By: #### C KYUNG MENON, MG, ADIFF, GFR, CMP, ANEU #### [address] [address] Platelet 99 10 3/mcL Low 150-450 [facility] Comment on above: Performed By: #### C KYUNG MENON, MG, ADIFF, GFR, CMP, ANEU #### [place] [address] Platelet mean volume (Bld) [Entitic vol] 7.3 fL Normal 6.4-10.5 [facility] Comment on above: Performed By: #### C KYUNG MENON, MG, ADIFF, GFR, CMP, ANEU #### [place] [id number] RBC 3.65 10 6/mcL Low 4.50-6.00 [facility] Comment on above: Performed By: #### C KYUNG MENON, MG, ADIFF, GFR, CMP, ANEU #### [place] [id number] WBC 6.0 10 3/mcL Normal 4.5-10.8 [facility] Comment on above: Performed By: #### C KYUNG MENON, MG, ADIFF, GFR, CMP, ANEU #### [place] [id number] Jimmy 02-21-2025 Fasting Y Yes Normal [facility] Comment on above: Performed By: #### C BC, MDW, MG, ADIFF, GFR, CMP, ANEU #### [address] [place], [place] [address] LABORATORYOrdered By: SYSTEM SYSTEM on 02-21-2025 25-hydroxyvitamin [...] PM) Normal AO Sendouts SS LABORATORYOrdered By: [employer] P CONTRIBUTOR_SYSTEM on 02-21-2025 Gastrin (LC) 113 pg/mL Invalid Interpretation Code AO Sendouts SS Comment on above: Result Comment: [facility] Dextrte 2000 Immunochemiluminometric assay (ICMA) Values obtained with different assay methods or kits cannot be used interchangeably. Results cannot be interpreted as absolute evidence of the presence or absence of malignant disease. [facility]formed At: [facility] [id number] Jacques Ferrell MD Ph:[phone] Intrinsic Factor Abs (LC) 0.9 Au/mL Invalid Interpretation Code 0.0-1.1 [facility] SS Comment on above: Result Comment: Perf ormed At: [facility] [id number] Jacques Ferrell MD Ph:[phone] MGon 02-21-2025 Magnesium [Mass/Vol] 1.9 mg/dL Normal 1.8-2.4 [facility] Comment on above: Performed By: #### C KYUNG MENON, MG, ADIFF, GFR, CMP, ANEU #### [facility] [address] [place], [place] [address] PTHon 02-21-2025 PTH, Intact 170.3 pg/mL High 18.5-88.0 [facility] Comment on above: Performed By: #### C KYUNG MENON, MG, ADIFF, GFR, CMP, ANEU #### [facility] [address] [place], [place] [address] VIDHon 02-21-2025 Vit. D 25-Hydroxy 32.7 ng/mL Normal [facility] Comment on above: Result Comment: Inte rpretive Values Based on Total 25([place]) Vitamin D: Deficient <20 ng/mL Insufficient 20 - <30 ng/mL Sufficient 30-100 ng/mL Performed By: #### C KYUNG MENON, MG, ADIFF, GFR, CMP, ANEU #### [facility] [address] [place], [place] [address] Cardiology Visit Reporton Cardiology Visit Report [facility] [facility] [place] [address] OFFICE VISIT Date of Service: 02/16/25 MR#: [id number] Acct: [id number] Name: EKATERINA RANDHAWA Rep #: [id number] : 1940 Provider: DG Vail Age/Sex: 84/M [...] Intake Visit Reasons: 1 Y FU/PREV PFM Batch Tester Required: No Accompanied by: Daughter Is patient [...] story gram oral powder packet ([facility]) lisinopril 20 mg tablet 20 mg PO [...] infarction Essential hypertension Atherosclerotic heart disease of [place] coronary artery without angina pectoris Postoperative atrial [...] rarely substance use type: does not use arelis/yazidism: [place] seatbelt use: always ROS Const Const: Positive for fatigue (Increasing last couple months, relates to age); Negative for weakness Eyes Eyes: Negative for change in vision ENT ENT: Negative for dizziness or balance problems Cardio (more content not included)... Normal [facility] Bilirubin directOrdered By: Maryuri Begum on 02-08-2025 Bilirubin.direct [Mass/Vol] 0.26 mg/dL 0.00-0.30 [facility] Bilirubin, totalOrdered By: Maryuri Begum on 02-08-2025 Bilirubin [Mass/Vol] 0.48 mg/dL 0.00-1.30 [facility] Calculated very low density lipoprotein (VLDL) cholesterol measurementOrdered By: Maryuri Begum on 02-08-2025 Calculated very low density lipoprotein (VLDL) cholesterol measurement 18 mg/dL 5-40 [facility] LDL calc ser/plasOrdered By: Maryuri Begum on 02-08-2025 Cholesterol in LDL [Mass/Vol] 25 mg/dL [facility] Comment on above: Reesincefs=438-401 m g/dL & Higher Fsbv=835 mg/dL or greater Laboratory - Chemistry and C hemistry - challengeOrdered By: Maryuri Begum on 02-08-2025 AST [Catalytic activity/Vol] 16 U/L <38 [facility] Lipid Profileon 02-08-2025 CHOL:HDL 2.13 Normal [facility] Comment on above: Performed By: #### L 500.3400, L500.4100 #### [facility] [address], [address] Cholesterol [Mass/Vol] 80 mg/dL Normal <=200 [facility] Comment on above: Result Comment: Chol esterol level, Desirable <200 mg/dL Borderline high cholesterol 200-239 mg/dL High cholesterol >=240 mg/dL Recommendations of the NCEP Adult Treatment Panel for the following risk-cutoff thresholds for the [place] population. Performed By: #### L 500.3400, L500.4100 #### [facility] [address], [address] Cholesterol in HDL [Mass/Vol] 38 mg/dL Low [facility] Comment on above: Result Comment: Daphney onal Cholesterol Education Program (NCEP) guidelines: <40 mg/dL: Low HDL-cholesterol (major risk factor for CHD) >= 60 mg/dL: High HDL-cholesterol (negative risk factor for CHD) HDL-cholesterol is affected by a number of factors, e.g. smoking, exercise, hormones, sex and age. Performed By: #### L 500.3400, L500.4100 #### [facility] [address], [address] Cholesterol in LDL [Mass/Vol] 25 mg/dL Normal [facility] Comment on above: Result Comment: Bord avryxr=519-747 mg/dL Higher Dwyx=272 mg/dL or greater Performed By: #### L 500.3400, L500.4100 #### [facility] [address], [address] Cholesterol in VLDL [Mass/Vol] 18 mg/dL Normal 5-40 [facility] Comment on above: Performed By: #### L 500.3400, L500.4100 #### [facility] [address] [place], [address] Triglyceride [Mass/Vol] 89 mg/dL Normal [facility] Comment on above: Result Comment: The drugs N-Acetylcysteine and Metamizole may falsely depress this assay. Normal range: <150 mg/dL Borderline High: 150-199 mg/dL High: 200-499 mg/dL Very High: >500 mg/dL Performed By: #### L 500.3400, L500.4100 #### [facility] [address], [address] Liver Profileon 02-08-2025 Albumin [Mass/Vol] 3.9 g/dL Normal 3.4-4.8 [facility] Comment on above: Performed By: #### L 500.3400, L500.4100 #### [facility] [address] [place], [address] ALK PHOS 89 U/L Normal 40-129 [facility] Comment on above: Performed By: #### L 500.3400, L500.4100 #### [facility] [address] [place], [address] ALT [Catalytic activity/Vol] 6 U/L Normal <=46 [facility] Comment on above: Performed By: #### L 500.3400, L500.4100 #### [facility] [address] [place], [address] AST [Catalytic activity/Vol] 16 U/L Normal <=37 [facility] Comment on above: Performed By: #### L 500.3400, L500.4100 #### [facility] [address] [place], [address] Bilirubin [Mass/Vol] 0.48 mg/dL Normal 0.00-1.30 [facility] Comment on above: Performed By: #### L 500.3400, L500.4100 #### [facility] [address], [address] Bilirubin.direct [Mass/Vol] 0.26 mg/dL Normal 0.00-0.30 [facility] Comment on above: Performed By: #### L 500.3400, L500.4100 #### [facility] [address] [place], [address] Globulin (S) [Mass/Vol] 2.5 g/dL Normal 2.2-4.2 [facility] Comment on above: Performed By: #### L 500.3400, L500.4100 #### [facility] [address] [place], [address] T PROT 6.5 g/dL Normal 5.9-8.4 [facility] Comment on above: Performed By: #### L 500.3400, L500.4100 #### [facility] [address], [address] Screening total cholesterol/ high density lipoprotein (HDL) cholesterol ratioOrdered By: Maryuri Begum on 02-08-2025 Cholesterol.total/Choles terol in HDL [Mass ratio] 2.13 {ratio} [facility] Serum globulin measurementOr dered By: Maryuri Begum on 02-08-2025 Globulin (S) [Mass/Vol] 2.5 g/dL 2.2-4.2 [facility] Serum or plasma alanine mora otransferase (ALT) measurementOrdered By: Maryuri Begum on 02-08-2025 ALT [Catalytic activity/Vol] 6 U/L <47 [facility] Serum or plasma albumin francisco urement (mass/volume)Ordered By: Maryuri Begum on 02-08-2025 Albumin [Mass/Vol] 3.9 g/dL 3.4-4.8 [facility] Serum or plasma alkaline edna sphatase measurementOrdered By: Maryuri Begum on 02-08-2025 ALP [Catalytic activity/Vol] 89 U/L 40-129 [facility] Serum or plasma cholesterol in HDL measurement (mass/volume)Ordered By: Maryuri Begum on 02-08-2025 Cholesterol in HDL [Mass/Vol] 38 mg/dL Low >40 [facility] Comment on above: National Cholesterol Education Program (NCEP) guidelines:<40 mg/dL: Low HDL-cholesterol (major risk factor for CHD)>= 60 mg/dL: High HDL-cholesterol (negative risk factor for CHD)HDL-cholesterol is affected by a number of factors, e.g. smoking, exercise, hormones, sex and age. Serum or plasma cholesterol measurement (mass/volume)Ordered By: Maryuri Begum on 02-08-2025 Cholesterol [Mass/Vol] 80 mg/dL <201 [facility] Comment on above: Cholesterol level, D esirable <200 mg/dLBorderline high cholesterol 200-239 mg/dLHigh cholesterol >=240 mg/dLRecommendations of the NCEP Adult Treatment Panel for the following risk-cutoff thresholds for the [place] population. Total proteinOrdered By: Terell Begum on 02-08-2025 Protein [Mass/Vol] 6.5 g/dL 5.9-8.4 [facility] Triglycerides measurementOrd ered By: Maryuri Begum on 02-08-2025 Triglyceride [Mass/Vol] 89 mg/dL <199 [facility] Comment on above: The drugs N-Acetylcy steine and Metamizole may falsely depress this assay. Normal range: <150 mg/dLBorderline High: 150-199 mg/dLHigh: 200-499 mg/dLVery High: >500 mg/dL Neurology Visit Reporton Neurology Visit Report [facility] [address], [address] [place] [id number] OFFICE VISIT Date of Service: 11/29/24 MR#: [id number] Acct: [id number] Name: EKATERINA RANDHAWA Rep #: [id number] : 1940 Provider: Dr. Braxton garg MD Age/Sex: 84/M Location: [facility] Status: Signed HPI HPI Chief Complaint: [...] this began during his hospitalization for his VA/CABG and may have been procedure related). He [...] dysfunction (pseudonormal (more content not included)... Normal [facility] Urgent Care Visit Reporton 0 11-16-2024 Urgent Care Visit Report [facility] [address], [address] [place] [address] OFFICE VISIT Date of Service: 11/16/24 MR#: [id number] Acct: [id number] Name: EKATERINA RANDHAWA Rep #: [id number] : 1940 Provider: DG Manning Age/Sex: 84/M Location[facility] Status: Signed Intake Vital Signs 03/02/24 08:13 [...] and on. Patient states he has RLS. 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 Normal [facility] .Auto Diffon 11-01-2024 Basophil, Absolute 0.0 10 3/mcL Normal 0.0-0.2 [facility] Comment on above: Performed By: #### C LYNSEY, KYUNG, MG, ADIFF, GFR, CMP, ANEU #### [address] [address] Basophils/100 WBC (Bld) 0.6 % Normal 0.0-2.5 [facility] Comment on above: Performed By: #### C KYUNG MENON, MG, ADIFF, GFR, CMP, ANEU #### [address] [address] Eosinophil, Absolute 0.2 10 3/mcL Normal 0.0-0.7 [facility] Comment on above: Performed By: #### C KYUNG MENON, MG, ADIFF, GFR, CMP, ANEU #### [address] [address] Eosinophils/100 WBC (Bld) 2.8 % Normal 0.0-7.0 [facility] Comment on above: Performed By: #### C KYUNG MENON, MG, ADIFF, GFR, CMP, ANEU #### [address] [address] Lymphocyte, Absolute 1.6 10 3/mcL Normal 0.9-4.3 [facility] Comment on above: Performed By: #### C KYUNG MENON, MG, ADIFF, GFR, CMP, ANEU #### [address] [address] Lymphocytes/100 WBC (Bld) 25.7 % Normal 20.0-40.0 [facility] Comment on above: Performed By: #### C LYNSEY, W, MG, ADIFF, GFR, CMP, ANEU #### [address] [address] Monocyte, Absolute 0.4 10 3/mcL Normal 0.1-1.4 [facility] Comment on above: Performed By: #### C BC, MDW, MG, ADIFF, GFR, CMP, ANEU #### [address] [address] Monocytes/100 WBC (Bld) 6.6 % Normal 2.0-13.0 [facility] Comment on above: Performed By: #### C LYNSEY, W, MG, ADIFF, GFR, CMP, ANEU #### [address] [address] Neutrophils/100 WBC (Bld) 64.3 % Normal 50.0-75.0 [facility] Comment on above: Performed By: #### C LYNSEY, W, MG, ADIFF, GFR, CMP, ANEU #### [address] [address] .GFRon 11-01-2024 Estimated Glomerular Filtration Rate 27 ml/min/1.73sqm Normal [facility] Comment on above: Result Comment: Stages of [...] MDW, MG, ADIFF, GFR, CMP, ANEU #### [address] [address] .NEUABSon 11-01-2024 Neutrophil, Absolute 4.0 10 3/mcL Normal 2.3-8.1 [facility] Comment on above: Performed By: #### C KYUNG MENON, MG, ADIFF, GFR, CMP, ANEU #### [address] [address] BMPon 11-01-2024 BUN/Creatinine Ratio 13 ratio Normal 7-27 [facility] Comment on above: Performed By: #### C KYUNG MENON, MG, ADIFF, GFR, CMP, ANEU #### [address] [address] Calcium [Mass/Vol] 9.7 mg/dL Normal 8.4-10.2 [facility] Comment on above: Performed By: #### C KYUNG MENON, MG, ADIFF, GFR, CMP, ANEU #### [address] [address] Chloride [Moles/Vol] 108 mmol/L High 98-107 [facility] Comment on above: Performed By: #### C KYUNG MENON, MG, ADIFF, GFR, CMP, ANEU #### [address] [address] CO2 [Moles/Vol] 29 mmol/L Normal 23-31 [facility] Comment on above: Performed By: #### C KYUNG MENON, MG, ADIFF, GFR, CMP, ANEU #### [address] [address] Creatinine [Mass/Vol] 2.31 mg/dL High 0.70-1.30 [facility] Comment on above: Result Comment: Test ing performed on Siemens Dimension EXL analyzer using a modified kinetic Sonia technique. Performed By: #### C KYUNG MENON, MG, ADIFF, GFR, CMP, ANEU #### [address] [address] Electrolyte Balance 8.0 mEq/L Normal 4.0-15.0 [facility] Comment on above: Performed By: #### C KYUNG MENON, MG, ADIFF, GFR, CMP, ANEU #### [address] [address] Glucose [Mass/Vol] 111 mg/dL High 83-110 [facility] Comment on above: Performed By: #### C KYUNG MENON, MG, ADIFF, GFR, CMP, ANEU #### [address] [address] Potassium [Moles/Vol] 5.0 mmol/L Normal 3.5-5.1 [facility] Comment on above: Performed By: #### C KYUNG MENON, MG, ADIFF, GFR, CMP, ANEU #### [address] [address] Sodium [Moles/Vol] 145 mmol/L Normal 136-145 [facility] Comment on above: Performed By: #### C KYUNG MENON, MG, ADIFF, GFR, CMP, ANEU #### [place] [address] Urea nitrogen [Mass/Vol] 30 mg/dL High 7-18 [facility] Comment on above: Performed By: #### C KYUNG MENON, MG, ADIFF, GFR, CMP, ANEU #### [address] [address] CBCon 11-01-2024 Erythrocyte distribution width (RBC) [Ratio] 16.6 % High 11.5-15.5 [facility] Comment on above: Performed By: #### C KYUNG MENON, MG, ADIFF, GFR, CMP, ANEU #### [address] [address] Hematocrit (Bld) [Volume fraction] 34.4 % Low 40.0-52.0 [facility] Comment on above: Performed By: #### C KYUNG MENON, MG, ADIFF, GFR, CMP, ANEU #### [address] [address] Hgb 11.5 G/dL Low 13.0-17.5 [facility] Comment on above: Performed By: #### C KYUNG MENON, MG, ADIFF, GFR, CMP, ANEU #### [address] [address] MCH (RBC) [Entitic mass] 29.3 pg Normal 27.0-33.0 [facility] Comment on above: Performed By: #### C KYUNG MENON, MG, ADIFF, GFR, CMP, ANEU #### [address] [address] MCHC 33.4 G/dL Normal 32.0-36.0 [facility] Comment on above: Performed By: #### C KYUNG MENON, MG, ADIFF, GFR, CMP, ANEU #### [place] [address] MCV (RBC) [Entitic vol] 87.9 fL Normal 81.0-100.0 [facility] Comment on above: Performed By: #### C KYUNG MENON, MG, ADIFF, GFR, CMP, ANEU #### [place] [address] Platelet 90 10 3/mcL Low 150-450 [facility] Comment on above: Performed By: #### C KYUNG MENON, MG, ADIFF, GFR, CMP, ANEU #### [address] [address] Platelet mean volume (Bld) [Entitic vol] 7.9 fL Normal 6.4-10.5 [facility] Comment on above: Performed By: #### C KYUNG MENON, MG, ADIFF, GFR, CMP, ANEU #### [address] [address] RBC 3.91 10 6/mcL Low 4.50-6.00 [facility] Comment on above: Performed By: #### C KYUNG MENON, MG, ADIFF, GFR, CMP, ANEU #### [address] [address] WBC 6.2 10 3/mcL Normal 4.5-10.8 [facility] Comment on above: Performed By: #### C BC, MDW, MG, ADIFF, GFR, CMP, ANEU #### [place] [address] LABORATORYOrdered By: Leidy Gomez on 11-01-2024 Creatinine [...] 11-01-2024 PTH, Intact 194.7 pg/mL High 18.5-88.0 [facility] Comment on above: Performed By: #### C KYUNG MENON, MG, ADIFF, GFR, CMP, ANEU #### [address] [address] RPCURon 11-01-2024 U Creatinine 88.0 mg/dL Normal [facility] Comment on above: Performed By: #### R PCUR #### [address] [address] U Protein 26 mg/dL Normal [facility] Comment on above: Performed By: #### R PCUR #### [address] [address] U Ratio Prot/Creat 0.3 ratio Normal [facility] Comment on above: Performed By: #### R PCUR #### [address] [address] URICon 11-01-2024 Uric Acid Lvl 7.2 mg/dL Normal 3.5-7.2 [facility] Comment on above: Performed By: #### C LYNSEY, KYUNG, MG, ADIFF, GFR, CMP, ANEU #### [place] [address] [place], [place] [address] VIDHon 11-01-2024 Vit. D 25-Hydroxy 23.4 ng/mL Normal [facility] Comment on above: Result Comment: Inte rpretive Values Based on Total 25(OH) Vitamin D: Deficient <20 ng/mL Insufficient 20 - <30 ng/mL Sufficient 30-100 ng/mL Performed By: #### C LYNSEY, KYUNG, MG, ADDEMETRIS, GFR, CMP, ANEU #### [place] [address] [place], [place] [address] CNOVSPon 09-12-2024 CNOVSP Visit (SP) Office (HEMAWS) ----- EKATERINA RANDHAWA ([id number]) 1940 M Date Time Provider Department 09/12/24 [...] which included preparing to see the patient, esaz-eg-podr patient care, completing clinical documentation, obtaining and/or reviewing separately obtained history, counseling and educating the patient/family/caregiver, ordering medications, tests, or procedures, independently interpreting results (not separately reported), and communicating results to the patient/family/caregiver. Electronically Signed: Toney Gutierrez MD September 12, 2024 10:42 AM Referring Provider: JLUIS NICHOLE [[id number]] Allergies As of Date: 09/12/2024 (No Known Allergies) Date Reviewed: 09/12/2024 Reviewed by: Carrie García Ma, MA - Fully Assessed Reason for Visit: New Patient Evaluation [154] Primary Visit Diagnosis:Thrombocytopeni a (HCC) [D69.6] Other Visit Diagnosis:Anemia, unspecified type [D64.9] Order(s):COMPLETE BLOOD COUNT AND DIFFERENTIAL [SQCBCDIF] Order #: [id number] FUTURE ACTIVATED PARTIAL THROMBOPLASTIN TIME [SQPTT] Order #: [id number] FUTURE PROTHROMBIN TIME [SQPT] Order #: [id number] FUTURE Disposition: Return in about 4 months (more content not included)... Normal [facility] .Auto Diffon 08-11-2024 Basophil, Absolute 0.0 10 3/mcL Normal 0.0-0.2 [facility] Comment on above: Performed By: #### C KYUNG MENON, MG, ADIFF, GFR, CMP, ANEU #### [place] [address] [place], [place] [address] Basophils/100 WBC (Bld) 0.6 % Normal 0.0-2.5 [facility] Comment on above: Performed By: #### C KYUNG MENON, MG, ADIFF, GFR, CMP, ANEU #### [address] [address] Eosinophil, Absolute 0.1 10 3/mcL Normal 0.0-0.7 [facility] Comment on above: Performed By: #### C KYUNG MENON, MG, ADIFF, GFR, CMP, ANEU #### [address] [address] Eosinophils/100 WBC (Bld) 1.6 % Normal 0.0-7.0 [facility] Comment on above: Performed By: #### C KYUNG MENON, MG, ADIFF, GFR, CMP, ANEU #### [address] [address] Lymphocyte, Absolute 1.3 10 3/mcL Normal 0.9-4.3 [facility] Comment on above: Performed By: #### C KYUNG MENON, MG, ADIFF, GFR, CMP, ANEU #### [address] [address] Lymphocytes/100 WBC (Bld) 20.5 % Normal 20.0-40.0 [facility] Comment on above: Performed By: #### C KYUNG MENON, MG, ADIFF, GFR, CMP, ANEU #### [address] [address] Monocyte, Absolute 0.4 10 3/mcL Normal 0.1-1.4 [facility] Comment on above: Performed By: #### C KYUNG MENON, MG, ADIFF, GFR, CMP, ANEU #### [address] [address] Monocytes/100 WBC (Bld) 6.7 % Normal 2.0-13.0 [facility] Comment on above: Performed By: #### C KYUNG MENON, MG, ADIFF, GFR, CMP, ANEU #### [address] [address] Neutrophils/100 WBC (Bld) 70.6 % Normal 50.0-75.0 [facility] Comment on above: Performed By: #### C KYUNG MENON, MG, ADIFF, GFR, CMP, ANEU #### [address] [address] .GFRon 08-11-2024 GFR 33 ml/min/1.73sqm Normal [facility] Comment on above: Result Comment: GFR Population [...] MENON, MG, ADIFF, GFR, CMP, ANEU #### [address] [address] GFR Non- 27 ml/min/1.73sqm Normal [facility] Comment on above: Result Comment: GFR Population [...] mL/min/1.73 square meters Performed By: #### C LYNSEY, KYUNG, MG, ADIFF, GFR, CMP, ANEU #### [address] [address] .NEUABSon 08-11-2024 Neutrophil, Absolute 4.6 10 3/mcL Normal 2.3-8.1 [facility] Comment on above: Performed By: #### C KYUNG MENON, MG, ADIFF, GFR, CMP, ANEU #### [place] [address] B12on 08-11-2024 Cobalamin (Vitamin B12) [Mass/Vol] 360 pg/mL Normal 211-911 [facility] Comment on above: Performed By: #### C KYUNG MENON, MG, ADIFF, GFR, CMP, ANEU #### [place] [address] CBCon 08-11-2024 Erythrocyte distribution width (RBC) [Ratio] 15.2 % Normal 11.5-15.5 [facility] Comment on above: Performed By: #### C KYUNG MENON, MG, ADIFF, GFR, CMP, ANEU #### [place] [address] Hematocrit (Bld) [Volume fraction] 34.5 % Low 40.0-52.0 [facility] Comment on above: Performed By: #### C KYUNG MENON, MG, ADIFF, GFR, CMP, ANEU #### [place] [address] Hgb 11.4 G/dL Low 13.0-17.5 [facility] Comment on above: Performed By: #### C KYUNG MENON, MG, ADIFF, GFR, CMP, ANEU #### [place] [address] MCH (RBC) [Entitic mass] 29.4 pg Normal 27.0-33.0 [facility] Comment on above: Performed By: #### C KYUNG MENON, MG, ADIFF, GFR, CMP, ANEU #### [place] [address] MCHC 33.1 G/dL Normal 32.0-36.0 [facility] Comment on above: Performed By: #### C KYUNG MENON, MG, ADIFF, GFR, CMP, ANEU #### [address] [address] MCV (RBC) [Entitic vol] 88.9 fL Normal 81.0-100.0 [facility] Comment on above: Performed By: #### C LYNSEY, KYUNG, MG, ADIFF, GFR, CMP, ANEU #### [address] [address] Platelet 91 10 3/mcL Low 150-450 [facility] Comment on above: Performed By: #### C LYNSEY, W, MG, ADIFF, GFR, CMP, ANEU #### [address] [address] Platelet mean volume (Bld) [Entitic vol] 7.6 fL Normal 6.4-10.5 [facility] Comment on above: Performed By: #### C KYUNG MENON, MG, ADIFF, GFR, CMP, ANEU #### [address] [address] RBC 3.88 10 6/mcL Low 4.50-6.00 [facility] Comment on above: Performed By: #### C KYUNG MENON, MG, ADIFF, GFR, CMP, ANEU #### [address] [address] WBC 6.5 10 3/mcL Normal 4.5-10.8 [facility] Comment on above: Performed By: #### C KYUNG MENON, MG, ADIFF, GFR, CMP, ANEU #### [address] [address] CMPon 08-11-2024 Albumin Level 4.0 G/dL Normal 3.4-4.8 [facility] Comment on above: Performed By: #### C KYUNG MENON, MG, ADIFF, GFR, CMP, ANEU #### [address] [address] Albumin/Globulin [Mass ratio] 1.7 {ratio} Normal 1.1-2.5 [facility] Comment on above: Performed By: #### C BC, MDW, MG, ADIFF, GFR, CMP, ANEU #### [address] [address] ALP [Catalytic activity/Vol] 72 U/L Normal 40-135 [facility] Comment on above: Performed By: #### C LYNSEY, KYUNG, MG, ADIFF, GFR, CMP, ANEU #### [address] [address] ALT [Catalytic activity/Vol] 17 U/L Normal 16-63 [facility] Comment on above: Performed By: #### C LYNSEY, KYUNG, MG, ADIFF, GFR, CMP, ANEU #### [place] [id number] AST [Catalytic activity/Vol] 14 U/L Normal 10-40 [facility] Comment on above: Performed By: #### C KYUNG MENON, MG, ADIFF, GFR, CMP, ANEU #### [place] [id number] Bili Total 0.7 mg/dL Normal 0.2-1.0 [facility] Comment on above: Result Comment: Use of this assay is not recommended for patients undergoing treatment with eltrombopag due to the potential for falsely elevated results. Performed By: #### C KYUNG MENON, MG, ADIFF, GFR, CMP, ANEU #### [address] [address] BUN/Creatinine Ratio 12 ratio Normal 7-27 [facility] Comment on above: Performed By: #### C KYUNG MENON, MG, ADIFF, GFR, CMP, ANEU #### [address] [address] Calcium [Mass/Vol] 8.9 mg/dL Normal 8.4-10.2 [facility] Comment on above: Performed By: #### C KYUNG MENON, MG, ADIFF, GFR, CMP, ANEU #### [address] [address] Chloride [Moles/Vol] 107 mmol/L Normal 98-107 [facility] Comment on above: Performed By: #### C KYUNG MENON, MG, ADIFF, GFR, CMP, ANEU #### [address] [address] CO2 [Moles/Vol] 26 mmol/L Normal 23-31 [facility] Comment on above: Performed By: #### C LYNSEY, KYUNG, MG, ADIFF, GFR, CMP, ANEU #### [address] [address] Creatinine [Mass/Vol] 2.31 mg/dL High 0.70-1.30 [facility] Comment on above: Result Comment: Test ing performed on Siemens Dimension EXL analyzer using a modified kinetic Sonia technique. Performed By: #### C LYNSEY, KYUNG, MG, ADIFF, GFR, CMP, ANEU #### [address] [address] Electrolyte Balance 9.0 mEq/L Normal 4.0-15.0 [facility] Comment on above: Performed By: #### C LYNSEY, KYUNG, MG, ADIFF, GFR, CMP, ANEU #### [place] [address] Globulin 2.4 G/dL Normal [facility] Comment on above: Performed By: #### C LYNSEY, KYUNG, MG, ADIFF, GFR, CMP, ANEU #### [address] [address] Glucose [Mass/Vol] 111 mg/dL High 83-110 [facility] Comment on above: Performed By: #### C LYNSEY, KYUNG, MG, ADIFF, GFR, CMP, ANEU #### [address] [address] Potassium [Moles/Vol] 4.7 mmol/L Normal 3.5-5.1 [facility] Comment on above: Performed By: #### C LYNSEY, KYUNG, MG, ADIFF, GFR, CMP, ANEU #### [place] [address] Sodium [Moles/Vol] 142 mmol/L Normal 136-145 [facility] Comment on above: Performed By: #### C KYUNG MENON, MG, ADIFF, GFR, CMP, ANEU #### [address] [address] Total Protein 6.4 G/dL Normal 6.4-8.2 [facility] Comment on above: Performed By: #### C KYUNG MENON, MG, ADIFF, GFR, CMP, ANEU #### [address] [address] Urea nitrogen [Mass/Vol] 28 mg/dL High 7-18 [facility] Comment on above: Performed By: #### C KYUNG MENON, MG, ADIFF, GFR, CMP, ANEU #### [address] [address] Jose 08-11-2024 Ferritin [Mass/Vol] 28.0 ng/mL Normal 26.0-388.0 [facility] Comment on above: Performed By: #### C KYUNG MENON, MG, ADIFF, GFR, CMP, ANEU #### [address] [address] FESon 08-11-2024 Iron [Mass/Vol] 83 ug/dL Normal 65-175 [facility] Comment on above: Performed By: #### C KYUNG MENON, MG, ADIFF, GFR, CMP, ANEU #### [address] [address] Iron Sat 26 % Normal [facility] Comment on above: Performed By: #### C KYUNG MENON, MG, ADIFF, GFR, CMP, ANEU #### [address] [address] TIBC 316 mcg/dL Normal 250-450 [facility] Comment on above: Performed By: #### C KYUNG MENON, MG, ADIFF, GFR, CMP, ANEU #### [address] [address] HCVon 08-11-2024 Hep C Ab Non-Reactive Normal Non-Reacti ve [facility] Comment on above: Performed By: #### C LYNSEY, KYUNG, MG, ADIFF, GFR, CMP, ANEU #### [place] [address] [place], [place] [address] Hep C Ab Int Normal [facility] Comment on above: Result Comment: Nonr eactive: [...] KYUNG, MG, ADIFF, GFR, CMP, ANEU #### [place] [address] [place], [place] [address] LABORATORYOrdered By: SYSTEM SYSTEM on 08-11-2024 Albumin [...] 08-11-2024 Cholesterol [Mass/Vol] 78 mg/dL Normal 0-200 [facility] Comment on above: Result Comment: Chol esterol Reference Interval: Less than 200 Desirable 200-239 Borderline high risk 240 and above High risk Performed By: #### C KYUNG MENON, MG, ADIFF, GFR, CMP, ANEU #### [address] [address] Cholesterol in HDL [Mass/Vol] 35 mg/dL Low 40-60 [facility] Comment on above: Performed By: #### C KYUNG MENON, MG, ADIFF, GFR, CMP, ANEU #### [address] [address] Cholesterol in LDL [Mass/Vol] 27 mg/dL Normal 0-130 [facility] Comment on above: Performed By: #### C KYUNG MENON, MG, ADIFF, GFR, CMP, ANEU #### [address] [address] Triglyceride [Mass/Vol] 79 mg/dL Normal 0-150 [facility] Comment on above: Result Comment: Trig lyceride Reference Interval: Less than 150 Normal 150-199 Borderline high risk 200-499 High risk 500 or higher Very high risk Performed By: #### C KYUNG MENON, MG, ADIFF, GFR, CMP, ANEU #### [address] [address] MGon 08-11-2024 Magnesium [Mass/Vol] 1.7 mg/dL Low 1.8-2.4 [facility] Comment on above: Performed By: #### C KYUNG MENON, MG, ADIFF, GFR, CMP, ANEU #### [address] [address] PBNPon 08-11-2024 Natriuretic peptide B (Bld) [Mass/Vol] 1518 pg/mL High 0-450 [facility] Comment on above: Result Comment: NT-p roBNP results of less than 300 pg/mL effectively rules out acute congestive heart failure with 99% negative predictive value. Performed By: #### C BC, MDW, MG, ADIFF, GFR, CMP, ANEU #### [facility] [address] [place], [place] [address] LABORATORYOrdered By: SYSTEM SYSTEM on 07-07-2024 25-hydroxyvitamin [...] Basophil, Absolute 0.1 10 3/mcL Normal 0.0-0.2 [facility] Comment on above: Performed By: #### A DIFF, BMP, ANEU, VIDH, URIC, CBC, GFR #### [place] [address] #### PTH #### [address] [address] Basophils/100 WBC (Bld) 0.7 % Normal 0.0-2.5 [facility] Comment on above: Performed By: #### A DIFF, BMP, ANEU, VIDH, URIC, CBC, GFR #### [place] [address] #### PTH #### [address] [address] Eosinophil, Absolute 0.2 10 3/mcL Normal 0.0-0.4 [facility] ([place] Comment on above: Performed By: #### A DIFF, BMP, ANEU, VIDH, URIC, CBC, GFR #### [place] [address] #### PTH #### [address] [address] Eosinophils/100 WBC (Bld) 2.1 % Normal 0.0-7.0 [facility] ([place] Comment on above: Performed By: #### A DIFF, BMP, ANEU, VIDH, URIC, CBC, GFR #### [place] [address] #### PTH #### [address] [address] Lymphocyte, Absolute 2.0 10 3/mcL Normal 0.8-3.9 [facility] ([place] Comment on above: Performed By: #### A DIFF, BMP, ANEU, VIDH, URIC, CBC, GFR #### [place] [address] #### PTH #### [address] [address] Lymphocytes/100 WBC (Bld) 25.0 % Normal 10.0-50.0 [facility] ([place] Comment on above: Performed By: #### A DIFF, BMP, ANEU, VIDH, URIC, CBC, GFR #### [address] [address] #### PTH #### [address] [address] Monocyte, Absolute 0.5 10 3/mcL Normal 0.2-1.0 [facility] Comment on above: Performed By: #### A DIFF, BMP, ANEU, VIDH, URIC, CBC, GFR #### [address] [address] #### PTH #### [address] [address] Monocytes/100 WBC (Bld) 6.0 % Normal 1.7-13.0 [facility] ([place] Comment on above: Performed By: #### A DIFF, BMP, ANEU, VIDH, URIC, CBC, GFR #### [address] [address] #### PTH #### [address] [address] Neutrophils/100 WBC (Bld) 66.2 % Normal 37.0-80.0 [facility] ([place] Comment on above: Performed By: #### A DIFF, BMP, ANEU, VIDH, URIC, CBC, GFR #### [address] [address] #### PTH #### [address] [address] .GFRon 02-21-2024 GFR Non- 21 ml/min/1.73sqm Normal [facility] ([place]) Comment on above: Result Comment: GFR [...] BMP, ANEU, VIDH, URIC, CBC, GFR #### [address] [address] #### PTH #### [address] [address] GFR 26 ml/min/1.73sqm Normal [facility] ([place] Comment on above: Result Comment: GFR [...] BMP, ANEU, VIDH, URIC, CBC, GFR #### [address] [address] #### PTH #### [address] [address] .NEUABSon 02-21-2024 Neutrophil, Absolute 5.2 10 3/mcL Normal 2.9-6.2 [facility] ([place] Comment on above: Performed By: #### A DIFF, BMP, ANEU, VIDH, URIC, CBC, GFR #### [address] [address] #### PTH #### [address] [address] BMPon 02-21-2024 BUN/Creatinine Ratio 13 ratio Normal 7-27 [facility] Comment on above: Performed By: #### A DIFF, BMP, ANEU, VIDH, URIC, CBC, GFR #### [address] [address] #### PTH #### [address] [address] Calcium [Mass/Vol] 10.1 mg/dL Normal 8.4-10.2 [facility] ([place] Comment on above: Performed By: #### A DIFF, BMP, ANEU, VIDH, URIC, CBC, GFR #### [address] [address] #### PTH #### [place] [address] Chloride [Moles/Vol] 105 mmol/L Normal 98-107 [facility] [place] Comment on above: Performed By: #### A DIFF, BMP, ANEU, VIDH, URIC, CBC, GFR #### [address] [address] #### PTH #### [place] [address] CO2 [Moles/Vol] 29 mmol/L Normal 23-31 [facility] ([place] Comment on above: Performed By: #### A DIFF, BMP, ANEU, VIDH, URIC, CBC, GFR #### [address] [address] #### PTH #### [address] [address] Creatinine [Mass/Vol] 2.85 mg/dL High 0.70-1.30 [facility] ([place] Comment on above: Performed By: #### A DIFF, BMP, ANEU, VIDH, URIC, CBC, GFR #### [address] [address] #### PTH #### [address] [address] Electrolyte Balance 8.0 mEq/L Normal 4.0-15.0 [facility] ([place]) Comment on above: Performed By: #### A DIFF, BMP, ANEU, VIDH, URIC, CBC, GFR #### [address] [address] #### PTH #### [address] [address] Glucose [Mass/Vol] 120 mg/dL High 83-110 [facility] ([place] Comment on above: Performed By: #### A DIFF, BMP, ANEU, VIDH, URIC, CBC, GFR #### [address] [address] #### PTH #### [address] [address] Potassium [Moles/Vol] 5.0 mmol/L Normal 3.5-5.1 [facility] ([place] Comment on above: Performed By: #### A DIFF, BMP, ANEU, VIDH, URIC, CBC, GFR #### [address] [address] #### PTH #### [place] [address] Sodium [Moles/Vol] 142 mmol/L Normal 136-145 [facility] ([place] Comment on above: Performed By: #### A DIFF, BMP, ANEU, VIDH, URIC, CBC, GFR #### [address] [address] #### PTH #### [address] [address] Urea nitrogen [Mass/Vol] 36 mg/dL High 7-18 [facility] ([place] Comment on above: Performed By: #### A DIFF, BMP, ANEU, VIDH, URIC, CBC, GFR #### [address] [address] #### PTH #### [address] [address] CBCon 02-21-2024 Erythrocyte distribution width (RBC) [Ratio] 14.8 % High 11.5-14.5 [facility] ([place] Comment on above: Performed By: #### A DIFF, BMP, ANEU, VIDH, URIC, CBC, GFR #### [place] [address] #### PTH #### [place] [address] Hematocrit (Bld) [Volume fraction] 34.7 % Low 42.0-52.0 [facility] ([place] Comment on above: Performed By: #### A DIFF, BMP, ANEU, VIDH, URIC, CBC, GFR #### [place] [address] #### PTH #### [place] [address] Hgb 11.4 G/dL Low 14.0-18.0 [facility] ([place] Comment on above: Performed By: #### A DIFF, BMP, ANEU, VIDH, URIC, CBC, GFR #### [place] [address] #### PTH #### [place] [address] MCH (RBC) [Entitic mass] 28.3 pg Normal 27.0-31.2 [facility] ([place] Comment on above: Performed By: #### A DIFF, BMP, ANEU, VIDH, URIC, CBC, GFR #### [place] [address] #### PTH #### [place] [address] MCHC 32.8 G/dL Normal 31.8-35.4 [facility] ([place] Comment on above: Performed By: #### A DIFF, BMP, ANEU, VIDH, URIC, CBC, GFR #### [place] [address] #### PTH #### [place] [address] MCV (RBC) [Entitic vol] 86.4 fL Normal 80.0-94.0 [facility] Comment on above: Performed By: #### A DIFF, BMP, ANEU, VIDH, URIC, CBC, GFR #### [place] [address] #### PTH #### [place] [address] Platelet 93 10 3/mcL Low 130-400 [facility] ([place] Comment on above: Performed By: #### A DIFF, BMP, ANEU, VIDH, URIC, CBC, GFR #### [place] [address] #### PTH #### [place] [address] Platelet mean volume (Bld) [Entitic vol] 8.2 fL Normal 7.4-10.4 [facility] ([place] Comment on above: Performed By: #### A DIFF, BMP, ANEU, VIDH, URIC, CBC, GFR #### [place] [address] #### PTH #### [place] [address] RBC 4.01 10 6/mcL Low 4.04-6.13 [facility] ([place] Comment on above: Performed By: #### A DIFF, BMP, ANEU, VIDH, URIC, CBC, GFR #### [place] [address] #### PTH #### [place] [address] WBC 7.8 10 3/mcL Normal 4.6-10.8 [facility] ([place] Comment on above: Performed By: #### A DIFF, BMP, ANEU, VIDH, URIC, CBC, GFR #### [place] [address] #### PTH #### [place] [address] CRURon 02-21-2024 U Creatinine 98.9 mg/dL Normal 39.0-259.0 [facility] ([place] Comment on above: Performed By: #### A DIFF, BMP, ANEU, VIDH, URIC, CBC, GFR #### [place] [address] [place], [place] [address] #### PTH #### [address] [address] LABORATORYOrdered By: SYSTEM SYSTEM on 02-21-2024 Creatinine [...] U Protein 18 mg/dL High 0-11 [facility] ([place] Comment on above: Performed By: #### A DIFF, BMP, ANEU, VIDH, URIC, CBC, GFR #### [place] [address] [place], [place] [address] #### PTH #### [address] [address] PTHon 02-21-2024 PTH, Intact 32.4 pg/mL Normal 18.5-88.0 [facility] ([place] Comment on above: Performed By: #### A DIFF, BMP, ANEU, VIDH, URIC, CBC, GFR #### [address] [address] #### PTH #### [place] [address] URICon 02-21-2024 Uric Acid Lvl 8.8 mg/dL High 3.5-7.2 [facility] ([place] Comment on above: Performed By: #### A DIFF, BMP, ANEU, VIDH, URIC, CBC, GFR #### [place] [address] #### PTH #### [place] [address] VIDHon 02-21-2024 Vit. D 25-Hydroxy 24.2 ng/mL Normal [facility] ([place] Comment on above: Result Comment: Inte rpretive Values Based on Total 25(OH) Vitamin D: Deficient <20 ng/mL Insufficient 20 - <30 ng/mL Sufficient 30-100 ng/mL Performed By: #### A DIFF, BMP, ANEU, VIDH, URIC, CBC, GFR #### [place] [address] #### PTH #### [address] [address] .Auto Diffon 10-27-2023 Basophil, Absolute 0.1 10 3/mcL Normal 0.0-0.2 [facility] Comment on above: Performed By: #### A DIFF, BMP, ANEU, VIDH, URIC, CBC, GFR #### [place] [address] #### PTH #### [place] [address] Basophils/100 WBC (Bld) 0.8 % Normal 0.0-2.5 [facility] [place] Comment on above: Performed By: #### A DIFF, BMP, ANEU, VIDH, URIC, CBC, GFR #### [address] [address] #### PTH #### [address] [address] Eosinophil, Absolute 0.2 10 3/mcL Normal 0.0-0.4 [facility] ([place] Comment on above: Performed By: #### A DIFF, BMP, ANEU, VIDH, URIC, CBC, GFR #### [address] [address] #### PTH #### [address] [address] Eosinophils/100 WBC (Bld) 3.1 % Normal 0.0-7.0 [facility] ([place] Comment on above: Performed By: #### A DIFF, BMP, ANEU, VIDH, URIC, CBC, GFR #### [place] [address] #### PTH #### [address] [address] Lymphocyte, Absolute 1.9 10 3/mcL Normal 0.8-3.9 [facility] ([place]) Comment on above: Performed By: #### A DIFF, BMP, ANEU, VIDH, URIC, CBC, GFR #### [place] [address] #### PTH #### [address] [address] Lymphocytes/100 WBC (Bld) 26.5 % Normal 10.0-50.0 [facility] ([place] Comment on above: Performed By: #### A DIFF, BMP, ANEU, VIDH, URIC, CBC, GFR #### [address] [address] #### PTH #### [address] [address] Monocyte, Absolute 0.4 10 3/mcL Normal 0.2-1.0 [facility] Comment on above: Performed By: #### A DIFF, BMP, ANEU, VIDH, URIC, CBC, GFR #### [place] [id number] #### PTH #### [address] [address] Monocytes/100 WBC (Bld) 6.0 % Normal 1.7-13.0 [facility] [place] Comment on above: Performed By: #### A DIFF, BMP, ANEU, VIDH, URIC, CBC, GFR #### [address] [address] #### PTH #### [address] [address] Neutrophils/100 WBC (Bld) 63.6 % Normal 37.0-80.0 [facility] ([place]) Comment on above: Performed By: #### A DIFF, BMP, ANEU, VIDH, URIC, CBC, GFR #### [address] [address] #### PTH #### [address] [address] .GFRon 10-27-2023 GFR 29 ml/min/1.73sqm Normal [facility] ([place]) Comment on above: Result Comment: GFR [...] BMP, ANEU, VIDH, URIC, CBC, GFR #### [address] [address] #### PTH #### [address] [address] GFR Non- 24 ml/min/1.73sqm Normal [facility] ([place]) Comment on above: Result Comment: GFR [...] BMP, ANEU, VIDH, URIC, CBC, GFR #### [place] [address] #### PTH #### [address] [address] .NEUABSon 10-27-2023 Neutrophil, Absolute 4.5 10 3/mcL Normal 2.9-6.2 [facility] ([place] Comment on above: Performed By: #### A DIFF, BMP, ANEU, VIDH, URIC, CBC, GFR #### [place] [address] #### PTH #### [address] [address] BMPon 10-27-2023 BUN/Creatinine Ratio 13 ratio Normal 7-27 [facility] Comment on above: Performed By: #### A DIFF, BMP, ANEU, VIDH, URIC, CBC, GFR #### [address] [address] #### PTH #### [address] [address] Calcium [Mass/Vol] 9.6 mg/dL Normal 8.4-10.2 [facility] ([place] Comment on above: Performed By: #### A DIFF, BMP, ANEU, VIDH, URIC, CBC, GFR #### [address] [address] #### PTH #### [address] [address] Chloride [Moles/Vol] 107 mmol/L Normal 98-107 [facility] Comment on above: Performed By: #### A DIFF, BMP, ANEU, VIDH, URIC, CBC, GFR #### [address] [address] #### PTH #### [address] [address] CO2 [Moles/Vol] 29 mmol/L Normal 23-31 [facility] ([place] Comment on above: Performed By: #### A DIFF, BMP, ANEU, VIDH, URIC, CBC, GFR #### [place] [address] #### PTH #### [address] [address] Creatinine [Mass/Vol] 2.58 mg/dL High 0.70-1.30 [facility] ([place] Comment on above: Performed By: #### A DIFF, BMP, ANEU, VIDH, URIC, CBC, GFR #### [place] [address] #### PTH #### [address] [address] Electrolyte Balance 7.0 mEq/L Normal 4.0-15.0 [facility] ([place]) Comment on above: Performed By: #### A DIFF, BMP, ANEU, VIDH, URIC, CBC, GFR #### [place] [address] #### PTH #### [address] [address] Glucose [Mass/Vol] 113 mg/dL High 83-110 [facility] ([place] Comment on above: Performed By: #### A DIFF, BMP, ANEU, VIDH, URIC, CBC, GFR #### [place] [address] #### PTH #### [address] [address] Potassium [Moles/Vol] 4.0 mmol/L Normal 3.5-5.1 [facility] ([place] Comment on above: Performed By: #### A DIFF, BMP, ANEU, VIDH, URIC, CBC, GFR #### [address] [address] #### PTH #### [place] [address] Sodium [Moles/Vol] 143 mmol/L Normal 136-145 [facility] ([place] Comment on above: Performed By: #### A DIFF, BMP, ANEU, VIDH, URIC, CBC, GFR #### [place] [address] #### PTH #### [place] [address] Urea nitrogen [Mass/Vol] 34 mg/dL High 7-18 [facility] ([place]) Comment on above: Performed By: #### A DIFF, BMP, ANEU, VIDH, URIC, CBC, GFR #### [address] [address] #### PTH #### [place] [address] CBCon 10-27-2023 Erythrocyte distribution width (RBC) [Ratio] 15.1 % High 11.5-14.5 [facility] ([place]) Comment on above: Performed By: #### A DIFF, BMP, ANEU, VIDH, URIC, CBC, GFR #### [place] [address] #### PTH #### [place] [address] Hematocrit (Bld) [Volume fraction] 32.2 % Low 42.0-52.0 [facility] ([place]) Comment on above: Performed By: #### A DIFF, BMP, ANEU, VIDH, URIC, CBC, GFR #### [address] [address] #### PTH #### [address] [address] Hgb 10.9 G/dL Low 14.0-18.0 [facility] ([place]) Comment on above: Performed By: #### A DIFF, BMP, ANEU, VIDH, URIC, CBC, GFR #### [place] [address] #### PTH #### [place] [address] MCH (RBC) [Entitic mass] 29.1 pg Normal 27.0-31.2 [facility] ([place]) Comment on above: Performed By: #### A DIFF, BMP, ANEU, VIDH, URIC, CBC, GFR #### [place] [address] #### PTH #### [place] [address] MCHC 33.8 G/dL Normal 31.8-35.4 [facility] ([place]) Comment on above: Performed By: #### A DIFF, BMP, ANEU, VIDH, URIC, CBC, GFR #### [place] [address] #### PTH #### [place] [address] MCV (RBC) [Entitic vol] 86.0 fL Normal 80.0-94.0 [facility] [place] Comment on above: Performed By: #### A DIFF, BMP, ANEU, VIDH, URIC, CBC, GFR #### [place] [address] #### PTH #### [place] [address] Platelet 101 10 3/mcL Low 130-400 [facility] ([place] Comment on above: Performed By: #### A DIFF, BMP, ANEU, VIDH, URIC, CBC, GFR #### [place] [address] #### PTH #### [place] [address] Platelet mean volume (Bld) [Entitic vol] 7.7 fL Normal 7.4-10.4 [facility] ([place] Comment on above: Performed By: #### A DIFF, BMP, ANEU, VIDH, URIC, CBC, GFR #### [place] [address] #### PTH #### [place] [address] RBC 3.74 10 6/mcL Low 4.04-6.13 [facility] ([place] Comment on above: Performed By: #### A DIFF, BMP, ANEU, VIDH, URIC, CBC, GFR #### [place] [address] #### PTH #### [place] [address] WBC 7.0 10 3/mcL Normal 4.6-10.8 [facility] ([place] Comment on above: Performed By: #### A DIFF, BMP, ANEU, VIDH, URIC, CBC, GFR #### [place] [address] #### PTH #### [place] [address] CRURon 10-27-2023 U Creatinine 107.8 mg/dL Normal 39.0-259.0 [facility] ([place] Comment on above: Performed By: #### A DIFF, BMP, ANEU, VIDH, URIC, CBC, GFR #### [place] [address] #### PTH #### [place] [address] PRURon 10-27-2023 U Protein 22 mg/dL High 0-11 [facility] ([place] Comment on above: Performed By: #### A DIFF, BMP, ANEU, VIDH, URIC, CBC, GFR #### [place] [address] #### PTH #### [place] [address] PTHon 10-27-2023 PTH, Intact 48.1 pg/mL Normal 18.5-88.0 [facility] ([place] Comment on above: Performed By: #### A DIFF, BMP, ANEU, VIDH, URIC, CBC, GFR #### [address] [address] #### PTH #### [place] [address] URICon 10-27-2023 Uric Acid Lvl 8.0 mg/dL High 3.5-7.2 [facility] ([place] Comment on above: Performed By: #### A DIFF, BMP, ANEU, VIDH, URIC, CBC, GFR #### [place] [address] #### PTH #### [place] [address] VIDHon 10-27-2023 Vit. D 25-Hydroxy 29.2 ng/mL Normal [facility] ([place] Comment on above: Result Comment: Inte rpretive Values Based on Total 25(OH) Vitamin D: Deficient <20 ng/mL Insufficient 20 - <30 ng/mL Sufficient 30-100 ng/mL Performed By: #### A DIFF, BMP, ANEU, VIDH, URIC, CBC, GFR #### [place] [address] #### PTH #### [place] [address] VIDDHon 06-10-2023 Vit. D 1,25 Dihydro. 25.6 pg/mL Normal 19.9-79.3 [facility] [place] Comment on above: Result Comment: Perf ormed By: [facility] [employer] [address] [place] [address] Product Tester [employer]: Matthew Cheek III#: [id number] Performed By: #### A DIFF, BMP, ANEU, VIDH, URIC, CBC, GFR #### [place] [address] #### PTH #### [place] [address] .Auto Diffon 06-09-2023 Basophil, Absolute 0.1 10 3/mcL Normal 0.0-0.2 [facility] [place] Comment on above: Performed By: #### A DIFF, BMP, ANEU, VIDH, URIC, CBC, GFR #### [address] [address] #### PTH #### [address] [address] Basophils/100 WBC (Bld) 0.8 % Normal 0.0-2.5 [facility] ([place]) Comment on above: Performed By: #### A DIFF, BMP, ANEU, VIDH, URIC, CBC, GFR #### [address] [address] #### PTH #### [address] [address] Eosinophil, Absolute 0.3 10 3/mcL Normal 0.0-0.4 [facility] ([place] Comment on above: Performed By: #### A DIFF, BMP, ANEU, VIDH, URIC, CBC, GFR #### [address] [address] #### PTH #### [address] [address] Eosinophils/100 WBC (Bld) 3.8 % Normal 0.0-7.0 [facility] ([place] Comment on above: Performed By: #### A DIFF, BMP, ANEU, VIDH, URIC, CBC, GFR #### [address] [address] #### PTH #### [address] [address] Lymphocyte, Absolute 1.9 10 3/mcL Normal 0.8-3.9 [facility] ([place] Comment on above: Performed By: #### A DIFF, BMP, ANEU, VIDH, URIC, CBC, GFR #### [address] [address] #### PTH #### [address] [address] Lymphocytes/100 WBC (Bld) 27.1 % Normal 10.0-50.0 [facility] ([place] Comment on above: Performed By: #### A DIFF, BMP, ANEU, VIDH, URIC, CBC, GFR #### [address] [address] #### PTH #### [address] [address] Monocyte, Absolute 0.4 10 3/mcL Normal 0.2-1.0 [facility] [place] Comment on above: Performed By: #### A DIFF, BMP, ANEU, VIDH, URIC, CBC, GFR #### [address] [address] #### PTH #### [address] [address] Monocytes/100 WBC (Bld) 5.6 % Normal 1.7-13.0 [facility] [place] Comment on above: Performed By: #### A DIFF, BMP, ANEU, VIDH, URIC, CBC, GFR #### [address] [address] #### PTH #### [address] [address] Neutrophils/100 WBC (Bld) 62.7 % Normal 37.0-80.0 [facility] ([place] Comment on above: Performed By: #### A DIFF, BMP, ANEU, VIDH, URIC, CBC, GFR #### [address] [address] #### PTH #### [address] [address] .GFRon 06-09-2023 GFR Non- 20 ml/min/1.73sqm Normal [facility] ([place] Comment on above: Result Comment: GFR [...] BMP, ANEU, VIDH, URIC, CBC, GFR #### [address] [address] #### PTH #### [address] [address] GFR 25 ml/min/1.73sqm Normal [facility] ([place] Comment on above: Result Comment: GFR [...] BMP, ANEU, VIDH, URIC, CBC, GFR #### [address] [address] #### PTH #### [address] [address] .NEUABSon 06-09-2023 Neutrophil, Absolute 4.3 10 3/mcL Normal 2.9-6.2 [facility] ([place] Comment on above: Performed By: #### A DIFF, BMP, ANEU, VIDH, URIC, CBC, GFR #### [address] [address] #### PTH #### [address] [address] BMPon 06-09-2023 BUN/Creatinine Ratio 11 ratio Normal 7-27 [facility] [place] Comment on above: Performed By: #### A DIFF, BMP, ANEU, VIDH, URIC, CBC, GFR #### [address] [address] #### PTH #### [address] [address] Calcium [Mass/Vol] 9.8 mg/dL Normal 8.4-10.2 [facility] ([place]) Comment on above: Performed By: #### A DIFF, BMP, ANEU, VIDH, URIC, CBC, GFR #### [address] [address] #### PTH #### [place] [address] Chloride [Moles/Vol] 107 mmol/L Normal 98-107 [facility] [place] Comment on above: Performed By: #### A DIFF, BMP, ANEU, VIDH, URIC, CBC, GFR #### [place] [address] #### PTH #### [address] [address] CO2 [Moles/Vol] 31 mmol/L Normal 23-31 [facility] ([place] Comment on above: Performed By: #### A DIFF, BMP, ANEU, VIDH, URIC, CBC, GFR #### [address] [address] #### PTH #### [place] [address] Creatinine [Mass/Vol] 2.98 mg/dL High 0.70-1.30 [facility] ([place] Comment on above: Performed By: #### A DIFF, BMP, ANEU, VIDH, URIC, CBC, GFR #### [place] [address] #### PTH #### [address] [address] Electrolyte Balance 6.0 mEq/L Normal 4.0-15.0 [facility] ([place]) Comment on above: Performed By: #### A DIFF, BMP, ANEU, VIDH, URIC, CBC, GFR #### [address] [address] #### PTH #### [address] [address] Glucose [Mass/Vol] 106 mg/dL Normal 83-110 [facility] ([place]) Comment on above: Performed By: #### A DIFF, BMP, ANEU, VIDH, URIC, CBC, GFR #### [place] [address] #### PTH #### [address] [address] Potassium [Moles/Vol] 5.0 mmol/L Normal 3.5-5.1 [facility] ([place] Comment on above: Performed By: #### A DIFF, BMP, ANEU, VIDH, URIC, CBC, GFR #### [place] [address] #### PTH #### [address] [address] Sodium [Moles/Vol] 144 mmol/L Normal 136-145 [facility] ([place] Comment on above: Performed By: #### A DIFF, BMP, ANEU, VIDH, URIC, CBC, GFR #### [place] [address] #### PTH #### [address] [address] Urea nitrogen [Mass/Vol] 32 mg/dL High 7-18 [facility] ([place] Comment on above: Performed By: #### A DIFF, BMP, ANEU, VIDH, URIC, CBC, GFR #### [place] [address] #### PTH #### [address] [address] CBCon 06-09-2023 Erythrocyte distribution width (RBC) [Ratio] 15.0 % High 11.5-14.5 [facility] ([place] Comment on above: Performed By: #### A DIFF, BMP, ANEU, VIDH, URIC, CBC, GFR #### [place] [address] #### PTH #### [place] [address] Hematocrit (Bld) [Volume fraction] 32.1 % Low 42.0-52.0 [facility] ([place] Comment on above: Performed By: #### A DIFF, BMP, ANEU, VIDH, URIC, CBC, GFR #### [place] [address] #### PTH #### [place] [address] Hgb 10.7 G/dL Low 14.0-18.0 [facility] ([place] Comment on above: Performed By: #### A DIFF, BMP, ANEU, VIDH, URIC, CBC, GFR #### [place] [address] #### PTH #### [place] [address] MCH (RBC) [Entitic mass] 29.1 pg Normal 27.0-31.2 [facility] ([place] Comment on above: Performed By: #### A DIFF, BMP, ANEU, VIDH, URIC, CBC, GFR #### [place] [address] #### PTH #### [place] [address] MCHC 33.4 G/dL Normal 31.8-35.4 [facility] ([place] Comment on above: Performed By: #### A DIFF, BMP, ANEU, VIDH, URIC, CBC, GFR #### [place] [address] #### PTH #### [place] [address] MCV (RBC) [Entitic vol] 86.9 fL Normal 80.0-94.0 [facility] [place] Comment on above: Performed By: #### A DIFF, BMP, ANEU, VIDH, URIC, CBC, GFR #### [place] [address] #### PTH #### [place] [address] Platelet 118 10 3/mcL Low 130-400 [facility] ([place] Comment on above: Performed By: #### A DIFF, BMP, ANEU, VIDH, URIC, CBC, GFR #### [place] [address] #### PTH #### [place] [address] Platelet mean volume (Bld) [Entitic vol] 8.4 fL Normal 7.4-10.4 [facility] ([place] Comment on above: Performed By: #### A DIFF, BMP, ANEU, VIDH, URIC, CBC, GFR #### [place] [address] #### PTH #### [place] [address] RBC 3.70 10 6/mcL Low 4.04-6.13 [facility] ([place] Comment on above: Performed By: #### A DIFF, BMP, ANEU, VIDH, URIC, CBC, GFR #### [place] [address] #### PTH #### [place] [address] WBC 6.8 10 3/mcL Normal 4.6-10.8 [facility] ([place] Comment on above: Performed By: #### A DIFF, BMP, ANEU, VIDH, URIC, CBC, GFR #### [place] [address] #### PTH #### [place] [address] CRURon 06-09-2023 U Creatinine 94.6 mg/dL Normal 39.0-259.0 [facility] ([place] Comment on above: Performed By: #### P RUR, CRUR #### [place] [address] PRURon 06-09-2023 U Protein 23 mg/dL High 0-11 [facility] ([place] Comment on above: Performed By: #### P RODRIGO ADAMS #### [address] [address] PTHon 06-09-2023 PTH, Intact 55.8 pg/mL Normal 18.5-88.0 [facility] ([place] Comment on above: Performed By: #### A DIFF, BMP, ANEU, VIDH, URIC, CBC, GFR #### [address] [address] #### PTH #### [address] [address] URICon 06-09-2023 Uric Acid Lvl 8.6 mg/dL High 3.5-7.2 [facility] ([place] Comment on above: Performed By: #### A DIFF, BMP, ANEU, VIDH, URIC, CBC, GFR #### [address] [address] #### PTH #### [place] [address] Albumin Elph [Mass/Vol]Order ed By: Braxton Doss on 04-01-2023 Albumin [Mass/Vol] 3.9 g/dL 2.9-4.4 [facility] Basophil percentageOrdered B y: Braxton Doss on 04-01-2023 Basophil percentage Comment . [facility] Comment on above: No monoclonality det ected.Performed at: - [facility] [id number] Director: Jonnathan Meeks PhD, Phone: [phone] No Panel InformationOrdered By: Braxton Doss on 04-01-2023 Addendum Document Comment . [facility] Comment on above: Protein electrophore sis scan will follow via computer,mail, or pediatric pathologist delivery. Serum [id number]-[id number] measu rement by electrophoresisOrdered By: Braxton Doss on 04-01-2023 Alpha 1 globulin Elph [Mass/Vol] 0.2 g/dL 0.0-0.4 [facility] Alpha 1 globulin Elph [Mass/Vol] 0.7 g/dL 0.4-1.0 [facility] Serum globulin measurement ( mass/volume)Ordered By: Braxton Doss on 04-01-2023 Globulin (S) [Mass/Vol] 2.6 g/dL 2.2-3.9 [facility] Serum or plasma IgA measurem ent (mass/volume)Ordered By: Braxton Doss on 04-01-2023 IgA [Mass/Vol] 337 mg/dL 61-437 [facility] Serum or plasma IgG measurem ent (mass/volume)Ordered By: Braxtoncassandra Doss on 04-01-2023 IgG [Mass/Vol] 823 mg/dL 603-1613 [facility] Serum or plasma IgM measurem ent (mass/volume)Ordered By: Braxton Doss on 04-01-2023 IgM [Mass/Vol] 59 mg/dL 15-143 [facility] Serum or plasma beta globuli n measurement by electrophoresis (mass/volume)Ordered By: Braxton Doss on 04-01-2023 Beta globulin Elph [Mass/Vol] 1.1 g/dL 0.7-1.3 [facility] Serum or plasma gamma globul in measurement by electrophoresis (mass/volume)Ordered By: Braxton Doss on 04-01-2023 Gamma globulin Elph [Mass/Vol] 0.6 g/dL 0.4-1.8 [facility] Serum or plasma immunoelectr ophoresis interpretation (nominal result)Ordered By: Braxton Doss on 04-01-2023 Interpretation IEP [Interp] Comment . [facility] Comment on above: No monoclonality det ected. Thin prep Papanicolaou smear with manual screeningOrdered By: Braxton Doss on 04-01-2023 Thin prep Papanicolaou smear with manual screening 1.6 0.7-1.7 [facility] Total protein bloodOrdered B y: Braxton Doss on 04-01-2023 Protein [Mass/Vol] 6.5 g/dL 6.0-8.5 [facility] HFPon 02-25-2023 Bili Indirect 0.3 mg/dL Normal [facility] ([place] Comment on above: Performed By: #### A DIFF, BMP, ANEU, VIDH, URIC, CBC, GFR #### [address] [address] #### PTH #### [address] [address] Albumin Level 3.8 G/dL Normal 3.4-4.8 [facility] ([place] Comment on above: Performed By: #### A DIFF, BMP, ANEU, VIDH, URIC, CBC, GFR #### [address] [address] #### PTH #### [address] [address] Albumin/Globulin [Mass ratio] 1.4 {ratio} Normal 1.1-2.5 [facility] ([place] Comment on above: Performed By: #### A DIFF, BMP, ANEU, VIDH, URIC, CBC, GFR #### [place] [address] #### PTH #### [address] [address] ALP [Catalytic activity/Vol] 62 U/L Normal 40-135 [facility] ([place] Comment on above: Performed By: #### A DIFF, BMP, ANEU, VIDH, URIC, CBC, GFR #### [address] [address] #### PTH #### [address] [address] ALT [Catalytic activity/Vol] 14 U/L Low 16-63 [facility] ([place] Comment on above: Performed By: #### A DIFF, BMP, ANEU, VIDH, URIC, CBC, GFR #### [address] [address] #### PTH #### [address] [address] AST [Catalytic activity/Vol] 22 U/L Normal 10-40 [facility] ([place] Comment on above: Performed By: #### A DIFF, BMP, ANEU, VIDH, URIC, CBC, GFR #### [address] [address] #### PTH #### [address] [address] Bili Direct 0.2 mg/dL Normal 0.0-0.2 [facility] ([place] Comment on above: Result Comment: Use of this assay is not recommended for patients undergoing treatment with eltrombopag due to the potential for falsely elevated results. Performed By: #### A DIFF, BMP, ANEU, VIDH, URIC, CBC, GFR #### [address] [address] #### PTH #### [place] [address] Bili Total 0.5 mg/dL Normal 0.2-1.0 [facility] ([place] Comment on above: Result Comment: Use of this assay is not recommended for patients undergoing treatment with eltrombopag due to the potential for falsely elevated results. Performed By: #### A DIFF, BMP, ANEU, VIDH, URIC, CBC, GFR #### [address] [address] #### PTH #### [place] [address] Globulin 2.7 G/dL Normal [facility] ([place]) Comment on above: Performed By: #### A DIFF, BMP, ANEU, VIDH, URIC, CBC, GFR #### [address] [address] #### PTH #### [place] [address] Total Protein 6.5 G/dL Normal 6.4-8.2 [facility] ([place] Comment on above: Performed By: #### A DIFF, BMP, ANEU, VIDH, URIC, CBC, GFR #### [address] [address] #### PTH #### [address] [address] LIPIDon 02-25-2023 Cholesterol [Mass/Vol] 85 mg/dL Normal 0-200 [facility] ([place]) Comment on above: Result Comment: Chol esterol Reference Interval: Less than 200 Desirable 200-239 Borderline high risk 240 and above High risk Performed By: #### A DIFF, BMP, ANEU, VIDH, URIC, CBC, GFR #### [address] [address] #### PTH #### [address] [address] Cholesterol in HDL [Mass/Vol] 41 mg/dL Normal 40-60 [facility] ([place] Comment on above: Performed By: #### A DIFF, BMP, ANEU, VIDH, URIC, CBC, GFR #### [address] [address] #### PTH #### [address] [address] Cholesterol in LDL [Mass/Vol] 33 mg/dL Normal 0-130 [facility] ([place] Comment on above: Performed By: #### A DIFF, BMP, ANEU, VIDH, URIC, CBC, GFR #### [address] [address] #### PTH #### [address] [address] Triglyceride [Mass/Vol] 53 mg/dL Normal 0-150 [facility] [place] Comment on above: Result Comment: Trig lyceride Reference Interval: Less than 150 Normal 150-199 Borderline high risk 200-499 High risk 500 or higher Very high risk Performed By: #### A DIFF, BMP, ANEU, VIDH, URIC, CBC, GFR #### [address] [address] #### PTH #### [address] [address] Basophil percentageOrdered B y: Dr. Doss on 12-08-2022 Bilirubin [Mass/Vol] 0.70 mg/dL 0.20-1.00 [facility] Comment on above: For patients on eltr ombopag therapy, use of Dimension [place] TBIL is not recommended. Chloride [Moles/Vol] 107 mmol/L 98-107 [facility] Glucose [Mass/Vol] 165 mg/dL 74-106 [facility] Comment on above: Fasting Glucose resu lt greater than or equal to 126 mg/dL suggests DIABETES MELLITUS per A.D.A. criteria. Potassium [Moles/Vol] 4.5 mmol/L 3.5-5.1 [facility] Protein [Mass/Vol] 7.2 g/dL 6.4-8.2 [facility] Sodium [Moles/Vol] 140 mmol/L 136-145 [facility] WBC (Bld) [#/Vol] 8.3 10*3/uL 4.4-11.0 [facility] Blood erythrocytes count (nu mber/volume)Ordered By: Dr. Doss on 12-08-2022 RBC (Bld) [#/Vol] 3.84 10*6/uL 4.6-6.2 [facility] Blood hemoglobin measurement (mass/volume)Ordered By: Dr. Doss on 12-08-2022 Hemoglobin (Bld) [Mass/Vol] 11.3 g/dL 13.0-16.5 [facility] Blood platelet mean volumeOr dered By: Dr. Doss on 12-08-2022 Platelet mean volume (Bld) [Entitic vol] 11.2 fL 6.2-12.0 [facility] Determination of erythrocyte mean corpuscular volume (MCV)Ordered By: Dr. Doss on 12-08-2022 MCV (RBC) [Entitic vol] 91.7 fL 80-94 [facility] Hematocrit Auto (Bld) [Volum e fraction]Ordered By: Dr. Doss on 12-08-2022 Hematocrit (Bld) [Volume fraction] 35.2 % 40-54 [facility] Laboratory - Chemistry and C hemistry - challengeOrdered By: Dr. Doss on 12-08-2022 ALP [Catalytic activity/Vol] 55 U/L 45-117 [facility] ALT [Catalytic activity/Vol] 16 U/L 16-61 [facility] CO2 [Moles/Vol] 29.0 mmol/L 21.0-32.0 [facility] Cobalamin (Vitamin B12) [Mass/Vol] 426 pg/mL 211-911 [facility] Globulin (S) [Mass/Vol] 3.4 g/dL 2.2-4.2 [facility] Urea nitrogen/Creatinine [Mass ratio] 13.2 mg/mg 10-20 [facility] Laboratory - Hematology and Cell countsOrdered By: Dr. Doss on 12-08-2022 Erythrocyte distribution width (RBC) [Entitic vol] 47.5 fL 35.1-43.9 [facility] Erythrocyte distribution width (RBC) [Ratio] 14.1 % 11.6-14.6 [facility] MCH (RBC) [Entitic mass] 29.4 pg 27.0-32.0 [facility] MCHC Auto (RBC) [Mass/Vol]Or dered By: Dr. Doss on 12-08-2022 MCHC (RBC) [Mass/Vol] 32.1 g/dL 32-36 [facility] No Panel InformationOrdered By: Dr. Doss on 12-08-2022 Estimated GFR (MDRD) Amer 28 mL/min >60 [facility] Comment on above: GFR Calc Estimated GFR (MDRD) Non-Af Amer 23 mL/min >60 [facility] Comment on above: Non- GFR Calc Free Lambda Light Chains, Quant 38.1 mg/L 5.7-26.3 [facility] Thyroid Stimulating Hormone (TSH) 1.17 uIU/mL 0.358-3.74 [facility] Whole Blood Vitamin B1 Level 120.3 nmol/L 66.5-200.0 [facility] Comment on above: Performed at: - [address] [id number] Director: Jonnathan Meeks PhD, Phone: [phone] at: - [facility] [id number] Director: Mariaelena Hanna MD, Phone: [phone] Platelets bldOrdered By: Dr. Doss on 12-08-2022 Platelets (Bld) [#/Vol] 162 10*3/uL 150-450 [facility] Serum immunoglobulin kappa l ight chains/immunoglobulin lambda light chains mass ratioOrdered By: Dr. Doss on 12-08-2022 Immunoglobulin light chains.kappa/Immunoglobu katie light chains.lambda (S) [Mass ratio] 1.89 0.26-1.65 [facility] Serum or plasma albumin francisco urement (mass/volume)Ordered By: Dr. Doss on 12-08-2022 Albumin [Mass/Vol] 3.8 g/dL 3.2-5.0 [facility] Serum or plasma albumin/glob ulin mass ratioOrdered By: Dr. Doss on 12-08-2022 Albumin/Globulin [Mass ratio] 1.1 {ratio} 0.9-2.4 [facility] Serum or plasma calcium francisco urement (mass/volume)Ordered By: Dr. Doss on 12-08-2022 Calcium [Mass/Vol] 10.1 mg/dL 8.5-10.1 [facility] Serum or plasma creatinine m easurement (mass/volume)Ordered By: Dr. Doss on 12-08-2022 Creatinine [Mass/Vol] 2.81 mg/dL 0.70-1.30 [facility] Comment on above: The validity of the calculated GFR & GFRAA in patients over 70 years has not been determined. Clinical correlation is essential. Serum or plasma folate measu rement (mass/volume)Ordered By: Dr. Doss on 12-08-2022 Folate [Mass/Vol] 6.40 ng/mL 3.1-55.4 [facility] Serum or plasma immunoglobul in kappa light chains measurement (mass/volume)Ordered By: Dr. Doss on 12-08-2022 Immunoglobulin light chains.kappa [Mass/Vol] 72.1 mg/L 3.3-19.4 [facility] Serum or plasma urea nitroge n measurement (mass/volume)Ordered By: Dr. Doss on 12-08-2022 Urea nitrogen [Mass/Vol] 37 mg/dL 7-18 [facility] Thin prep Papanicolaou smear with manual screeningOrdered By: Dr. Doss on 12-08-2022 Thin prep Papanicolaou smear with manual screening 21 U/L 15-37 [facility] Thin prep Papanicolaou smear with manual screening 4 5-15 [facility] LABORATORYOrdered By: Rhett Figueroa on 10-30-2022 Anisocytosis [...] Interpretation Code AO ADM SS LABORATORYOrdered By: [facility] on 10-19-2022 Ferritin [Mass/Vol] 37.0 ng/mL [...] 150 mg/dL AO ADM SS LABORATORYOrdered By: [facility] on 01-19-2022 GFR 32 ml/min/1.73sqm Invalid [...] 27 ratio AO ADM SS LABORATORYOrdered By: [facility] on 11-18-2021 GFR 31 ml/min/1.73sqm Invalid Interpretation Code AO Chemistry S GFR Non- 26 ml/min/1.73sqm Inval id Interpretation Code AO Chemistry S Vital Signs Date Time Vital Sign Value Performing Clinician Facility 07-12-2025 12:17-0400 Diastolic Blood Pressure Non-Invasive 59 mm[Hg] FLORENTIN MORAN DO [facility] 07-12-2025 12:17-0400 Heart rate 68 /min FLORENTIN MORAN DO [facility] 07-12-2025 12:17-0400 Respiratory rate 20 /min FLORENTIN MORAN DO [facility] 07-12-2025 12:17-0400 Systolic Blood Pressure Non-Invasive 105 mm[Hg] [facility] [facility] 07-12-2025 09:39-0400 Body height 175.3 cm FLORENTIN MORAN DO [facility] 07-12-2025 09:39-0400 Body temperature 96.98 [degF] FLORENTIN MORAN DO [facility] 07-12-2025 09:39-0400 Body weight 90.9 kg FLORENTIN MORAN DO [facility] 07-12-2025 09:39-0400 Diastolic Blood Pressure Non-Invasive 54 mm[Hg] FLORENTIN MORAN DO [facility] 07-12-2025 09:39-0400 Heart rate 79 /min FLORENTIN MORAN DO [facility] 07-12-2025 09:39-0400 Respiratory rate 16 /min FLORENTIN MORAN DO [facility] 07-12-2025 09:39-0400 Systolic Blood Pressure Non-Invasive 93 mm[Hg] FLORENTIN MORAN DO [facility] 06-11-2025 14:35-0400 Diastolic blood pressure 56 mm[Hg] Dr. Jluis Nichole DO Work Phone: [facility] 06-11-2025 14:35-0400 Systolic blood pressure 108 mm[Hg] Dr. Jluis Nichole DO Work Phone: [facility] 06-11-2025 13:56-0400 Body temperature 98 [degF] Dr. Jluis Nichole DO Work Phone: [facility] 06-11-2025 13:56-0400 Heart rate 68 /min Dr. Jluis Nichole DO Work Phone: [facility] 06-11-2025 13:56-0400 Respiratory rate 15 /min Dr. Jluis Nichole DO Work Phone: [facility] 06-11-2025 13:56-0400 SaO2% (BldA) [Mass fraction] 97 % Dr. Jluis Nichole DO Work Phone: [facility] 03-28-2025 09:39-0400 Body temperature 98.8 [degF] Dr. Jluis Nichole DO Work Phone: [facility] 03-28-2025 09:39-0400 Diastolic blood pressure 62 mm[Hg] Dr. Jluis Nichole DO Work Phone: [facility] 03-28-2025 09:39-0400 Heart rate 61 /min Dr. Jluis Nichole DO Work Phone: [facility] 03-28-2025 09:39-0400 Respiratory rate 15 /min Dr. Jluis Nichole DO Work Phone: [facility] 03-28-2025 09:39-0400 SaO2% (BldA) [Mass fraction] 100 % Dr. Jluis Nichole DO Work Phone: [facility] 03-28-2025 09:39-0400 Systolic blood pressure 104 mm[Hg] Dr. Jluis Nichole DO Work Phone: [facility] 02-16-2025 15:34-0400 Body height 175.[address] Jluis Nichole DO Work Phone: [facility] 02-16-2025 15:34-0400 Body mass index (BMI) [Ratio] 30.4 kg/m2 Dr. Jluis Nichole DO Work Phone: [facility] 02-16-2025 15:34-0400 Body weight 93.[address] Jluis Nichole DO Work Phone: [facility] 02-16-2025 15:34-0400 Diastolic blood pressure 72 mm[Hg] Dr. Jluis Nichole DO Work Phone: [facility] 02-16-2025 15:34-0400 Heart rate 71 /min Dr. Jluis Nichole DO Work Phone: [facility] 02-16-2025 15:34-0400 Respiratory rate 18 /min Dr. Jluis Nichole DO Work Phone: [facility] 02-16-2025 15:34-0400 Systolic blood pressure 152 mm[Hg] Dr. Jluis Nichole DO Work Phone: [facility] 11-29-2024 09:47-0400 Body temperature 97.8 [degF] Dr. Jluis Nichole DO Work Phone: [facility] 11-29-2024 09:47-0400 Diastolic blood pressure 68 mm[Hg] Dr. Jluis Nichole DO Work Phone: [facility] 11-29-2024 09:47-0400 Heart rate 64 /min Dr. Jluis Nichole DO Work Phone: [facility] 11-29-2024 09:47-0400 Respiratory rate 16 /min Dr. Jluis Nichole DO Work Phone: [facility] 11-29-2024 09:47-0400 SaO2% (BldA) [Mass fraction] 100 % Dr. Jluis Nichole DO Work Phone: [facility] 11-29-2024 09:47-0400 Systolic blood pressure 110 mm[Hg] Dr. Jluis Nichole DO Work Phone: [facility] 11-16-2024 10:19-0500 Body temperature 97.9 [degF] Dr. Jluis Nichole DO Work Phone: [facility] 11-16-2024 10:19-0500 Body weight 87.[address] Jluis Nichole DO Work Phone: [facility] 11-16-2024 10:19-0500 Diastolic blood pressure 76 mm[Hg] Dr. Jluis Nichole DO Work Phone: [facility] 11-16-2024 10:19-0500 Heart rate 68 /min Dr. Jluis Nichole DO Work Phone: [facility] 11-16-2024 10:19-0500 SaO2% (BldA) [Mass fraction] 97 % Dr. Jluis Nichole DO Work Phone: [facility] 11-16-2024 10:19-0500 Systolic blood pressure 120 mm[Hg] Dr. Jluis Nichole DO Work Phone: [facility] 09-12-2024 10:19-0500 Body height 172.7 cm Toney Gutierrez MD Work Phone: [facility] 09-12-2024 10:19-0500 Body mass index (BMI) [Ratio] 29.95 kg/m2 Toney Gutierrez MD Work Phone: [facility] 09-12-2024 10:19-0500 Body temperature 97.11 [degF] Toney Gutierrez MD Work Phone: [facility] 09-12-2024 10:19-0500 Body weight 89.36 kg Toney Gutierrez MD Work Phone: [facility] 09-12-2024 10:19-0500 Diastolic blood pressure 59 mm[Hg] Toney Gutierrez MD Work Phone: [facility] 09-12-2024 10:19-0500 Heart rate 58 /min Toney Gutierrez MD Work Phone: [facility] 09-12-2024 10:19-0500 SaO2% (BldA) [Mass fraction] 96 % Toney Gutierrez MD Work Phone: [facility] 09-12-2024 10:19-0500 Systolic blood pressure 128 mm[Hg] Toney Gutierrez MD Work Phone: [facility] 06-14-2024 11:21-0400 Blood Pressure Location FLORENTIN MORAN DO [facility] 06-14-2024 11:21-0400 Blood Pressure Method FLORENTIN MORAN DO [facility] 06-14-2024 11:21-0400 Body temperature 98.24 [degF] FLORENTIN MORAN DO [facility] 06-14-2024 11:21-0400 Diastolic Blood Pressure Non-Invasive 69 mm[Hg] FLORENTIN MORAN DO [facility] 06-14-2024 11:21-0400 Heart rate 60 /min FLORENTIN MORAN DO [facility] 06-14-2024 11:21-0400 Respiratory rate 18 /min FLORENTIN MORAN DO [facility] 06-14-2024 11:21-0400 Systolic Blood Pressure Non-Invasive 127 mm[Hg] FLORENTIN MORAN DO [facility] 04-01-2023 10:44-0400 Body height 175.[address] Layne Doherty Work Phone: [facility] 04-01-2023 10:44-0400 Body mass index (BMI) [Ratio] 29.3 kg/m2 Dr. Layne Doherty Work Phone: [facility] 04-01-2023 10:44-0400 Body temperature 98.9 [degF] Dr. Layne Doherty Work Phone: [facility] 04-01-2023 10:44-0400 Body weight 90.[address] Layne Doherty Work Phone: [facility] 04-01-2023 10:44-0400 Diastolic blood pressure 50 mm[Hg] Dr. Layne Doherty Work Phone: [facility] 04-01-2023 10:44-0400 Heart rate 76 /min Dr. Layne Doherty Work Phone: [facility] 04-01-2023 10:44-0400 Respiratory rate 15 /min Dr. Layne Doherty Work Phone: [facility] 04-01-2023 10:44-0400 SaO2% (BldA) [Mass fraction] 99 % Dr. Layne Doherty Work Phone: [facility] 04-01-2023 10:44-0400 Systolic blood pressure 114 mm[Hg] Dr. Layne Doherty Work Phone: [facility] 03-02-2023 08:32-0400 Body mass index (BMI) [Ratio] 29.7 kg/m2 Dr. Layne Doherty Work Phone: [facility] 03-02-2023 08:32-0400 Body weight 91.[address] Layne Doherty Work Phone: [facility] 03-02-2023 08:32-0400 Diastolic blood pressure 59 mm[Hg] Dr. Layne Doherty Work Phone: [facility] 03-02-2023 08:32-0400 Heart rate 64 /min Dr. Layne Doherty Work Phone: [facility] 03-02-2023 08:32-0400 Respiratory rate 16 /min Dr. Layne Doherty Work Phone: [facility] 03-02-2023 08:32-0400 Systolic blood pressure 111 mm[Hg] Dr. Layne Doherty Work Phone: [facility] 11-26-2022 13:05-0500 Diastolic blood pressure 68 mm[Hg] Dr. Layne Doherty Work Phone: [facility] 11-26-2022 13:05-0500 Systolic blood pressure 116 mm[Hg] Dr. Layne Doherty Work Phone: [facility] 11-26-2022 10:02-0500 Body height 175.[address] Layne Doherty Work Phone: [facility] 11-26-2022 10:02-0500 Body mass index (BMI) [Ratio] 29.2 kg/m2 Dr. Layne Doherty Work Phone: [facility] 11-26-2022 10:02-0500 Body temperature 98.2 [degF] Dr. Layne Doherty Work Phone: [facility] 11-26-2022 10:02-0500 Body weight 90.[address] Layne Doherty Work Phone: [facility] 11-26-2022 10:02-0500 Heart rate 67 /min Dr. Layne Doherty Work Phone: [facility] 11-26-2022 10:02-0500 Respiratory rate 17 /min Dr. Layne Doherty Work Phone: [facility] 11-26-2022 10:02-0500 SaO2% (BldA) [Mass fraction] 99 % Dr. Layne Doherty Work Phone: [facility] 09-01-2022 08:20-0500 Body mass index (BMI) [Ratio] 26.6 kg/m2 Dr. Layne Doherty Work Phone: [facility] 09-01-2022 08:20-0500 Body weight 81.[address] Layne Doherty Work Phone: [facility] 09-01-2022 08:20-0500 Diastolic blood pressure 77 mm[Hg] Dr. Layne Doherty Work Phone: [facility] 09-01-2022 08:20-0500 Heart rate 64 /min Dr. Layne Doherty Work Phone: [facility] 09-01-2022 08:20-0500 Respiratory rate 20 /min Dr. Layne Doherty Work Phone: [facility] 09-01-2022 08:20-0500 SaO2% (BldA) [Mass fraction] 98 % Dr. Layne Doherty Work Phone: [facility] 09-01-2022 08:20-0500 Systolic blood pressure 142 mm[Hg] Dr. Layne Doherty Work Phone: [facility] 03-09-2022 08:36-0400 Body height 175.[address] Layne Doherty Work Phone: [facility] Work Phone: 03-09-2022 08:36-0400 Body mass index (BMI) [Ratio] 28.5 kg/m2 Dr. Layne Doherty Work Phone: [facility] Work Phone: 03-09-2022 08:36-0400 Body weight 87.[address] Layne Doherty Work Phone: [facility] Work Phone: 03-09-2022 08:36-0400 Diastolic blood pressure 78 mm[Hg] Dr. Layne Doherty Work Phone: [facility] Work Phone: 03-09-2022 08:36-0400 Heart rate 64 /min Dr. Layne Doherty Work Phone: [facility] Work Phone: 03-09-2022 08:36-0400 Respiratory rate 18 /min Dr. Layne Doherty Work Phone: [facility] Work Phone: 03-09-2022 08:36-0400 Systolic blood pressure 144 mm[Hg] Dr. Layne Doherty Work Phone: [facility] Work Phone: Encounters Encounter Date Encounter Type Care Provider Facility Start: 07-31-2025 ambulatory Jluis Nichole Facility:[facility] Start: 07-30-2025 ambulatory Jluis Nichole Facility:[facility] Start: 07-24-2025 End: 07-24-2025 ambulatory Jluis MILAN Facility:[facility] Start: 07-16-2025 End: 07-16-2025 ambulatory Jluis MILAN Facility:[facility] Start: 07-12-2025 End: 07-12-2025 Emergency department patient visit FLORENTIN DEAN LEE [facility] Start: 07-11-2025 End: 07-11-2025 ambulatory Jluis MILAN Facility:[facility] Start: 07-05-2025 End: 07-05-[address] JLUIS NICHOLE DO Facility:[facility] Start: 07-05-2025 End: 07-05-[address] JLUIS NICHOLE DO [facility] Start: 07-04-2025 End: 07-08-[address] JLUIS NICHOLE DO [facility] Start: 07-04-2025 End: 07-08-[address] JLUIS NICHOLE DO Facility:[facility] Start: 07-04-2025 End: 07-04-[address] JLUIS NICHOLE DO [facility] Start: 06-11-2025 End: 06-11-[address] Braxton Doss MD -[facility] Work Phone: Start: 06-11-2025 End: 06-11-[address] Jluis Nichole DO Work Phone: -[facility] Start: 04-26-2025 End: 04-26-[address] Jluis Nichole DO Work Phone: -Ultrasound [facility] Start: 04-26-2025 End: 04-26-[address] Porsha Bass DO -Ultrasound [facility] Work Phone: Start: 04-26-2025 End: 04-26-2025 ambulatory Porsha Bass Facility:[facility] Start: 04-19-2025 End: 04-19-[address] Jluis Nichole DO Work Phone: -Laboratory Phy Office 3rd Flr Start: 04-19-2025 End: 04-19-[address] Porsha Bass DO -Laboratory [facility]y [facility] 3rd Flr Start: 04-19-2025 End: 04-19-2025 ambulatory Porsha Bass Facility:[facility] Start: 04-10-2025 Non-patient / Non-visit Dr. Cecilio huitron MD -[facility] Start: 04-10-2025 End: 04-10-[address] Jluis Nichole DO Work Phone: -Cardiovascular Services Start: 04-10-2025 End: 04-10-2025 Patient encounter procedure Sharon RAGLAND -Cardiovascular Services Work Phone: Start: 04-10-2025 End: 04-10-2025 ambulatory Porsha Lee Facility:[facility] Start: 03-28-2025 Non-patient / Non-visit Dr. Desire ROMAN -[facility] Start: 03-28-2025 End: 03-28-[address] Jluis Nichole DO Work Phone: -Cardiovascular Services Start: 03-28-2025 End: 03-28-2025 Patient encounter procedure Bailey CONTE -Cardiovascular Services Work Phone: Start: 03-28-2025 End: 03-28-2025 Patient encounter procedure Sharon RAGLAND -[facility] Work Phone: Start: 03-28-2025 End: 03-28-[address] Jluis Nichole DO Work Phone: -[facility] Start: 03-28-2025 End: 03-28-2025 ambulatory Jluis Nichole Facility:[facility] Start: 02-23-2025 End: 04-17-[address] JLUIS NICHOLE DO Facility:[facility] Start: 02-22-2025 End: 02-22-2025 Emergency department patient visit DAVID LAST MD [facility] Start: 02-21-2025 End: 02-25-[address] JLUIS NICHOLE DO Facility:[facility] Start: 02-21-2025 End: 02-25-[address] JLUIS NICHOLE DO [facility] Start: 02-16-2025 End: 02-16-2025 Patient encounter procedure Bailey CONTE -[facility] Work Phone: Start: 02-16-2025 End: 02-16-[address] Jluis Nichole DO Work Phone: [facility] Work Phone: Start: 02-08-2025 End: 02-08-[address] Jluis Nichole DO Work Phone: [facility] Work Phone: Start: 02-08-2025 End: 02-08-2025 Patient encounter procedure Maryuri RAGLAND -Laboratory Work Phone: Start: 02-08-2025 End: 02-08-2025 ambulatory Maryuri Begum Facility:[facility] Start: 11-29-2024 End: 11-29-[address] Braxton Doss MD -[facility] Work Phone: Start: 11-29-2024 End: 11-29-2024 ambulatory Braxton Doss Facility:[facility] Start: 11-16-2024 End: 11-16-2024 ambulatory Elijah CONTE Facility:[facility] Start: 11-16-2024 End: 11-16-2024 Patient encounter procedure Elijah CONTE -[facility] Work Phone: Start: 11-01-2024 End: 11-01-[address] JLUIS NICHOLE DO Facility:[facility] Start: 11-01-2024 End: 11-01-[address] TIA POWELL MD [facility] Start: 09-12-2024 End: 09-12-2024 ambulatory Toney Gutierrez MD Work Phone: Hematology/Oncology Comment on above: Thrombocytopenia (HC C) (Primary Dx); Anemia, unspecified type Start: 09-12-2024 End: 09-12-2024 Patient encounter procedure Toney Gutierrez MD Work Phone: Hematology/Oncology Start: 08-14-2024 End: 08-14-[address] JLUIS NICHOLE DO Facility:[facility] Start: 08-14-2024 End: 08-14-[address] JLUIS NICHOLE DO [facility] Start: 08-11-2024 End: 08-15-[address] JLUIS NICHOLE DO Facility:[facility] Start: 08-11-2024 End: 08-15-2024 Encounter for general adult medical examination without abnormal findings DR JLUIS NICHOLE DO Facility:[facility] Start: 08-11-2024 End: 08-15-[address] JLUIS NICHOLE DO [facility] Start: 07-07-2024 End: 07-07-[address] TIA POWELL MD [facility] Start: 06-14-2024 End: 06-14-2024 Emergency department patient visit FLORENTIN MORAN DO [facility] Start: 02-21-2024 End: 02-21-[address] TIA POWELL MD Facility:[facility] Start: 02-21-2024 End: 02-21-[address] TIA POWELL MD [facility] Start: 11-19-[address] [facility] Start: 11-15-2023 End: 12-15-[address] JLUIS NICHOLE DO Facility:[facility] Start: 10-27-2023 End: 10-27-[address] TIA POWELL MD Facility:[facility] Start: 06-24-2023 End: 06-25-[address] JLUIS NICHOLE DO Facility:[facility] Start: 06-09-2023 End: 06-09-[address] TIA POWELL MD Facility:[facility] Start: 04-01-2023 End: 04-01-[address] Layne Doherty Work Phone: [facility] Work Phone: Start: 04-01-2023 End: 04-01-[address] Layne Doherty Work Phone: [facility] Work Phone: Start: 04-01-2023 End: 04-01-[address] Layne Doherty Work Phone: [facility] Work Phone: Start: 03-02-2023 End: 03-02-[address] Layne Doherty Work Phone: [facility] Work Phone: Start: 02-25-2023 End: 02-25-2023 ambulatory MARYURI SHY ABBASI Facility:[facility] Start: 12-14-2022 End: 12-14-[address] Layne Doherty Work Phone: [facility] Work Phone: Start: 12-14-2022 End: 12-14-[address] Layne Doherty Work Phone: [facility] Start: 12-08-2022 End: 12-08-[address] Layne Doherty Work Phone: [facility] Work Phone: Start: 12-08-2022 End: 12-08-[address] Layne Doherty Work Phone: [facility] Start: 11-26-2022 End: 11-26-[address] Layne Doherty Work Phone: [facility] Start: 10-30-2022 End: 10-30-[address] TIA POWELL MD [facility] Start: 10-19-2022 End: 10-19-[address] JLUIS NICHOLE DO [facility] Start: 09-01-2022 End: 09-01-[address] Layne Doherty Work Phone: [facility] Start: 08-25-2022 End: 08-25-2022 Patient encounter procedure MARYURI BEGUM EDGING SUPERVISOR [facility] Start: 04-29-2022 End: 04-29-[address] TIA POWELL MD [facility] Start: 03-09-2022 End: 03-09-[address] Layne Doherty Work Phone: [facility] Start: 03-07-2022 End: 03-07-[address] Layne Doherty Work Phone: [facility] Start: 01-19-2022 End: 01-19-[address] TIA POWELL MD [facility] Start: 12-30-2021 End: 04-07-2022 Physical therapy management LAYNE DOHERTY DO [facility] Start: 11-18-2021 End: 11-18-2021 Patient encounter procedure MARYURI BEGUM EDGING SUPERVISOR [facility] Start: 06-01-2018 Patient encounter ARTEM Friedman cility:[facility] Procedures Date Procedure Procedure Detail Performing Clinician Start: 04-26-2025 Complete ultrasound of kidneys and bladder Dr. Jluis Nichole DO Work Phone: Start: 12-14-2022 MRI of brain without contrast Dr. Layne Doherty Work Phone: Start: 03-07-2022 MRI of brain without contrast Dr. Layne Doherty Work Phone: Start: 02-01-2019 Cystoscopy MARYURI BEGUM EDGING SUPERVISOR Comment on above: Per [place] office no te Start: 08-03-2018 Transurethral prostatectomy MARYURI BEGUM EDGING SUPERVISOR Comment on above: Per [place] office no te Start: 08-03-2018 Transurethral resect ion of bladder neoplasm MARYURI BEGUM EDGING SUPERVISOR Comment on above: Per [place] office no [...] Start: 09-20-2002 Biopsy of prostate MARYURI BEGUM EDGING SUPERVISOR Comment on above: Per [place] office no te Start: 09-20-1997 Biopsy of prostate MARYURI BEGUM EDGING SUPERVISOR Comment on above: Per [place] office no te Extracorporeal shock wave lithotripsy of calculus of kidney MARYURI BEGUM EDGING SUPERVISOR Comment on above: Per [place] office no te Knee region structur e (body structure) MARYURI BEGUM EDGING SUPERVISOR Procedure on heart MARYURI BEGUM EDGING SUPERVISOR Structure of left wr ist (body structure) MARYURI BEGUM EDGING SUPERVISOR Comment on above: Pins s/p fall on ice Plan of Treatment Date Care Activity Detail Author Start: 10-07-2032 Urine microalbumin profile DTaP,Tdap,Td Vaccine (2 - Td or Tdap) [facility] Start: 01-11-2025 End: 01-11-2025 ambulatory 01/11/2025 10:20 AM EDT Visit (SP) Office Hematology/Oncology [address] [place] [address] [place] [address] [place] [address] CBC/ 4 MO OV Hematology/Oncology Comment on above: CBC/ 4 MO OV Start: 09-12-2024 End: 12-12-2024 aPTT in Platelet poor plasma by Coagulation assay ACTIVATED PARTIAL THROMBOPLASTIN TIME Lab Routine Thrombocytopenia (HCC) Expected: 09/12/2024, Expires: 12/12/2024 [facility] Comment on above: Expected: 09/12/2024 , Expires: 12/12/2024 Start: 09-12-2024 End: 12-12-2024 CBC W Auto Differential panel - Blood COMPLETE BLOOD COUNT AND DIFFERENTIAL Lab Routine Thrombocytopenia (HCC) Expected: 09/12/2024, Expires: 12/12/2024 [facility] Work Phone: Comment on above: Expected: 09/12/2024 , Expires: 12/12/2024 Start: 09-12-2024 End: 12-12-2024 PT panel - Platelet poor plasma by Coagulation assay PROTHROMBIN TIME Lab Routine Thrombocytopenia (HCC) Expected: 09/12/2024, Expires: 12/12/2024 [facility] Comment on above: Expected: 09/12/2024 , Expires: 12/12/2024 Start: 05-21-2024 Covid-19 Vaccine ( season) Covid-19 Vaccine () [facility] Start: 09-20-2023 Advance Directive Discussion Advance Directive Discussion [facility] Start: 08-13-2023 Shingrix Vaccine (2 of 2) Shingrix Vaccine (2 of 2) [facility] Start: 04-01-2023 Serum immunofixation [facility] Start: 04-01-2023 Urine immunofixation [facility] Start: 11-26-2022 Patient referral [facility] Work Phone: Start: 07-01-2019 Hepatitis B surface antibody level LDL Cholesterol [facility] Start: 11-10-2018 Hemoglobin A1c measurement HbA1C [facility] Start: 1958 Anxiety Screening Anxiety Screening [facility] Start: 1958 Depression Screening Depression Scre ening [facility] Start: 1950 Diabetic foot examination Diabetic Foot Exam [facility] Start: 1950 Glaucoma screening Dilated Retinal E xam [facility] Start: 1950 Hepatitis B screening Urine Al bumin:Creatinine Ratio [facility] MR Brain WO contrast [facility] Patient referral [facility] Work Phone: Serum protein electrophoresis [facility] [place] Carotid arteries [facility] Heart [facility] Immunizations Immunization Date Immunization Notes Care Provider Idalia myers 06-28-2024 influenza, high dose seasonal, preservative-free; Translations: [Fluad PF Prefilled Syringe ] DR TIA POWELL MD [place] 08-22-2023 RSV vaccine preF3, recombinant DR TIA POWELL MD [place] 07-15-2023 SARS-CoV-2 (COVID-19 ) [id number] DR TIA POWELL MD [place] 06-18-[address] TIA POWELL MD [place] Comment on above: Result Comment: Oswaldo Aid. IM left upper arm 05-15-2023 influenza virus vaccine, unspecified formulation DR TIA POWELL MD [place] 04-27-2023 pneumococcal 20-keron nt conjugate vaccine DR TIA POWELL MD [place] 10-07-2022 tetanus toxoid, reduced diphtheria toxoid, and acellular pertussis vaccine, adsorbed; Translations: [Boostrix (Tdap)] DR JLUIS NICHOLE DO [place] 08-22-2022 influenza virus vaccine, unspecified formulation DR TIA POWELL MD [place] 01-26-2022 SARS-CoV-2 (COVID-19 ) mRNA-[address] TIA POWELL MD [place] 07-24-2021 SARS-CoV-2 (COVID-19 ) mRNA-[address] TIA POWELL MD [place] Comment on above: Result Comment: 2022: [id number] 06-04-2021 influenza virus vaccine, unspecified formulation DR TIA POWELL MD [place] 11-07-2020 COVID-19, mRNA, LNP- S, PF, 100 mcg or 50 mcg dose; Translations: [Moderna COVID-19 Vaccine] MARYURI BEGUM EDGING SUPERVISOR [facility] 10-10-2020 COVID-19, mRNA, LNP- S, PF, 100 mcg or 50 mcg dose; Translations: [Moderna COVID-19 Vaccine] MARYURI BEGUM EDGING SUPERVISOR [facility] 05-23-2020 influenza virus vaccine, unspecified formulation MARYURI BEGUM EDGING SUPERVISOR [facility] Comment on above: Result Comment: brenda meier administered 05-23-2020 pneumococcal conjuga te vaccine, 13 valent MARYURI BEGUM EDGING SUPERVISOR [facility] 05-20-2019 influenza virus vaccine, unspecified formulation MARYURI BEGUM EDGING SUPERVISOR [facility] 06-15-2018 influenza virus vaccine, unspecified formulation MARYURI BEGUM EDGING SUPERVISOR [facility] 06-15-2018 influenza, injectabl e, quadrivalent, preservative free Dr. Jluis Nichole DO Work Phone: [facility] 06-15-2018 influenza, seasonal, injectable Dr. Layne Doherty Work Phone: [facility] 07-21-[address] Layne Doherty Work Phone: [facility] 06-08-2017 influenza virus vaccine, unspecified formulation MARYURI ROOF EDGING SUPERVISOR [facility] 06-09-2016 influenza virus vaccine, unspecified formulation MARYURI ROOF EDGING SUPERVISOR [facility] 06-11-2015 influenza virus vaccine, unspecified formulation MARYURI ROOF EDGING SUPERVISOR [facility] 05-21-2015 pneumococcal polysaccharide vaccine, 23 valent MARYURI ROOF EDGING SUPERVISOR [facility] 06-12-2014 influenza virus vaccine, unspecified formulation MARYURI ROOF EDGING SUPERVISOR [facility] 06-13-2013 influenza virus vaccine, unspecified formulation MARYURI ROOF EDGING SUPERVISOR [facility] 08-21-2005 pneumococcal polysaccharide vaccine, 23 valent MARYURI ROOF EDGING SUPERVISOR [facility] Payers Date Payer Category Payer Self-pay [id number] 2016 Private Health Insurance [id number] 2016 Unknown [id number] 2005 Medicare [id number] 2005 Medicare [id number] 1940 Unknown [id number] 2.16.8 40.1.293612.3.579.2.627 1940 Unknown [id number] 2.16.8 40.1.849237.3.579.2.627 1940 Unknown [id number] 2.16.8 40.1.901755.3.579.2.627 1940 Unknown [id number] 2.16.8 40.1.401107.3.579.2.627 1940 Unknown [id number] 2.16.8 40.1.558786.3.579.2.62 1940 Unknown [id number] 2.16. 840.1.973499.3.579.2.62 1940 Unknown [id number] 2.16. 840.1.098669.3.579.2.62 1940 Unknown [id number] 2.16. 840.1.705634.3.579.2.627 1940 Unknown [id number] 2.16. 840.1.905934.3.579.2.62 1940 Unknown [id number] 2.16. 840.1.428953.3.579.2.627 1940 Unknown [id number] 2.16. 840.1.050732.3.579.2.62 1940 Unknown [id number] 2.16.8 40.1.222336.3.579.2.627 1940 Unknown [id number] 2.16.8 40.1.034089.3.579.2.627 1940 Unknown [id number] 2.16.8 40.1.297975.3.579.2.627 Unknown [id number] 2.16.8 40.1.781486.3.579.2.462 Unknown [id number] 2.16.8 40.1.933678.3.579.2.462 Unknown [id number] 2.16.8 40.1.409784.3.579.2.462 Unknown [id number] 2.16.8 40.1.732534.3.579.2.462 Unknown [id number] 2.16.8 40.1.521134.3.579.2.462 Unknown [id number] 2.16.8 40.1.784738.3.579.2.462 Unknown [id number] 2.16.8 40.1.479556.3.579.2.462 Unknown [id number] 2.16.8 40.1.899105.3.579.2.462 Unknown [id number] 2.16.8 40.1.831961.3.579.2.462 Unknown [id number] 2.16.8 40.1.765878.3.579.2.462 Unknown [id number] 2.16.8 40.1.219608.3.579.2.462 Unknown [id number] 2.16.8 40.1.398011.3.579.2.462 Unknown [id number] 2.16.8 40.1.583611.3.579.2.462 Unknown [id number] 2.16.8 40.1.984476.3.579.2.462 Unknown [id number] 2.16.8 40.1.852601.3.579.2.462 Unknown [id number] 2.16.8 40.1.385269.3.579.2.462 Unknown [id number] 2.16.8 40.1.588973.3.579.2.462 Social History Date Type Detail Facility Start: 06-20-2019 Never smoked marlon ellington (finding) [facility] Start: 1940 Sex Assigned At Male A [facility] Start: 03-09-2022 End: 04-01-2023 Tobacco smoking status NHIS Unknown if ever smoked [facility] Start: 03-22-2019 Non-smoker [facility] Start: 10-11-2022 End: 11-29-2024 Tobacco smoking status Ex-smoker (finding) [facility] [place] Start: 06-09-2018 None [facility] Start: 06-09-2018 Spouse/ Signif icant Other [facility] End: 09-20-1993 History of tobacco use Current smoker [facility] End: 09-20-1993 History of tobacco use Cigar Smoker [facility] Start: 09-12-2024 Tobacco use and exposure Smokeless tobacco non-user [facility] Start: 05-13-2018 End: 09-12-2024 History of Social function [facility] Start: 05-13-2018 End: 09-12-2024 Tobacco use panel [facility] PHQ2 Score 0 [facility] Start: 1940 Sex assigned at Not on file C [facility] Sexual Orientation [facility] Start: 08-14-2019 Sex Male (finding) [facility] Start: 07-12-2025 Not applicable (qualifier value) [facility] Medical Equipment Procedure Code Equipment Code Equipment Original Text Equipment Identifier Dates See Instructions , Freestyle lite test strips. use 1 strip daily. Use as directed, # 100 EA, 2 Refill(s), Pharmacy: [facility] #[id number], Diabetes, 175, cm, 12/15/21 8:54:00 EDT, Height, 83.8 Start: 03-10-2022 See Instructions , Freestyle lite test strips. use 1 strip daily. Use as directed, # 100 EA, 2 Refill(s), Pharmacy: [facility] #[id number], Diabetes, 175, cm, 12/15/21 8:54:00 EDT, Height, 83.8 Start: 03-10-2022 See Instructions , Freestyle lite test strips. use 1 strip daily. Use as directed, # 100 EA, 2 Refill(s), Pharmacy: [facility] #[id number], Diabetes, 175, cm, 12/15/21 8:54:00 EDT, Height, 83.8 Start: 03-10-2022 See Instructions , Freestyle lite test strips. use 1 strip daily. Use as directed, # 100 EA, 2 Refill(s), [id number] Diabetes, 175, cm, 12/15/21 8:54:00 EDT, Height, 83.8 Start: 03-10-2022 See Instructions , Freestyle lite test strips. use 1 strip daily. Use as directed, # 100 EA, 2 Refill(s), [id number], Diabetes, 175, cm, 12/15/21 8:54:00 EDT, Height, 83.8 Start: 03-10-2022 [place] Thk1.65mm P tfe 4x.5in Cardiovascular Sterile - [id number] Start: 05-13-2018 Functional Status Date Assessment Result Facility 07-12-2025 Functional Status Minimum assistance [facility] 07-12-2025 Functional Status [facility] 07-12-2025 [facility] 06-14-2024 Functional Status Minimum assistance [facility] 06-14-2024 Functional Status ID band on, Call device within reach, Bed in low position, Wheels locked, Upper/Half-Length side-rails up, Visitor at bedside, Safety level maintained [facility] 12-30-2021 Functional Status 1 flight [facility] Mental Status Date Assessment Result Facility 07-12-2025 Mental Status Orientation Oriented x 4 [facility] 07-12-2025 Mental Status [facility] 06-14-2024 Mental Status Orientation Oriented x 4 [facility] 06-14-2024 Mental Status [facility] Clinical Notes 04-20-2018 to 07-12-2025 Note [...] upper back pain Trouble controlling your muscles [phone] [employer]. [address] [place] [address]. All rights reserved. This information is not intended as a substitute for professional medical care. Always follow your healthcare professional's instructions. Follow Up Care 07/12/2025 09:18:39 With:Go to emergency room if symptoms worsen Address:Unknown When:2-4 days With:JLUIS NICHOLE DO Address: [address] [place] [phone] When:2-4 days [facility] 07-12-2025 Note Discharge Instructions Thank you for allowing [facility] to assist you with your healthcare needs. The following is important discharge information regarding your hospital visit. Diagnosis from Today's Visit Hyperkalemia What to Do Next Instructions from Your Care Team Potassium today was 5.2 on check here. Recommended to resume home Lokelma and to call maintenance worker for further outpatient management and following of potassium levels. Return to the emergency department for any acute concerns. No qualifying data available. Post Acute Orders No qualifying data available. You Need to Schedule the Following Appointments Follow Up with Go to emergency room if symptoms worsen When:Within 2-4 days Follow Up with JLUIS NICHOLE DO When:Within 2-4 days Where:[address] [place] [address] [place] [address]- [phone] Allergies NKA Medications Please ask your primary [...] upper back pain Trouble controlling your muscles [phone] [employer]. [address] [place] [address], [place] [address]. All rights reserved. This information is not intended as a substitute for professional medical care. Always follow your healthcare professional's instructions. Additional Information VACCINATE! IT SAVES LIVES! Members of the community who have not yet received the COVID-19 vaccine and would like to receive it can visit one of [facility] vaccine clinics. There are many vaccine clinic locations within the [facility]. For locations and available times, please visit [email or web address].[place]. gov/. It is important to note that some COVID mobile vaccine clinics are held outdoors and may be canceled in rainy or stormy conditions. To learn more about pediatric vaccinations (ages 5-11), we invite you to visit the [facility] webpage. https://www.aknScaleds.org/p ages/2299-Wetic-Nhzqfqlucyd-Freq aqbzcr-Dsoob-Wvbxriwaf.html To learn more about the COVID-19 vaccine, we invite you to visit the CDC website for a list of frequently asked questions. https://www.cdc.gov/coronavirus/ 2019-ncov/vaccines/faq.html [facility] Patient Portal Access Instructions: Stay connected with your healthcare team and access your personal medical information anytime with the [facility] Patient Portal. If you would like a full copy of your medical records please contact the [facility] Medical Records Department Wednesday through Wednesday between 8a.m. and 4:30p.m. Please follow the directions below to access the portal: 1.Access the email account you provided upon registration to the hospital.2.Look for an invitation email from [facility].3.Open the email and access the invitation link: Accept Invitation to [facility]4.Fill in the required liriano to create your account. To access your account, visit [employer] MediaOneChart or scan the QR code above. Click [...] you will allow to register on the [facility] Patient Portal for access to your information. You can also access the [facility] Patient Portal on the [employer]. Simply click on Health Records under Health Data and then click on the [employer] logo. HOW TO SAFELY DISPOSE OF PRESCRIPTION [...] Call your local pharmacy or go to [email or web address]/[email or web address] to find one close to you.3.Make use of household items: Use cat litter or old coffee grounds to dispose medications if other options are not available. Mix your drugs with these household products, seal them in an airtight container and throw it into the garbage. Call [facility]: [phone] to be sure your drugs can be [...] aware that I should contact my doctor. Patient/Tours Hostess Signature: Date/Time: Relationship to Patient: Witness Name/Signature: Date/Time: [facility] 07-06-2025 Note . MICRO - Microbiology PROCEDURE: [...] Locations *1: This test was performed at: [facility], [address] [place] [address], [phone]- , [facility] 07-05-2025 Note Exam Date Time Procedure Performing Provider Status 07/05/25 9:[address] Head or Brain w/o Contrast LAYNE NAYAK MD; Auth (Verified) [id number] ORIGINAL EXAMINATION: CT HEAD TECHNIQUE: Axial CT [...] 4:57:02 PM Ordering Provider: JLUIS NICHOLE RP [facility]10-15-2025 Note* Exam Date Time Procedure Performing Provider Status 07/04/25 4:05 PM XR Humerus Minimum 2 Views Right LILIANA HENAO DO; Auth (Verified) [id number] ORIGINAL EXAMINATION: TWO XRAY VIEWS OF THE [...] 5:10:20 PM Ordering Provider: JLUIS NICHOLE RP [facility]10-15-2025 Note* Exam Date Time Procedure Performing Provider Status 07/04/25 4:02 PM XR Chest 2 Views JAIRO ROBERTSON DO; Auth (Verified) [id number] ORIGINAL EXAMINATION: TWO XRAY VIEWS OF THE [...] PM Ordering Provider: JLUIS NICHOLE RP [facility]09-22-2025 [facility] [address] [place] [address], [address] [place] [address] OFFICE VISIT Date of Service: 06/11/25 MR#: [id number] Acct: [id number] Name: EKATERINA RANDHAWA Rep #: [id number] : 1940 Provider: Dr. Cora Doss MD Age/Sex: 85/M [place] [facility] [place] Status: Signed HPI [facility] Chief Complaint: Details: Interim History: Ekaterina [...] this began during his hospitalization for his VA/CABG and may have been procedure related). 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 Essential hypertension Atherosclerotic heart disease of [place] coronary artery without angina pectoris Postoperative atrial [...] rarely substance use type: does not use arelis/yazidism: [place] seatbelt use: always Clinical Quality Measures Falls Risk Screening/Assistive Devices Have you fallen in the past year?: Yes Coding Level of Care Code Off vis,est,level 4 Diagnoses Parkinsonism, unspecified Parkinsonism type G20 Parkinsonism type: unspecified Mild cognitive impairment G31.84 Polyneuropathy G62.9 Restless legs syndrome G25.81 06/13/25 1511 ur MD> Date _ Braxton Doss MD Cosigner Signature: Date (if applicable) CC: ~ [facility] [id number] Progress note Author Braxton Doss [facility] Note Date/Time June 11, 2025 2:41pm [facility] [address] [place] [address], [place] [address] OFFICE VISIT Date of Service: 06/11/25 MR#: [id number] Acct: [id number] Name: EKATERINA RANDHAWA Rep #: [id number] : 1940 Provider: Dr. Cora Doss MD Age/Sex: 85/M [place] [facility] [place] Status: Signed HPI [facility] Chief Complaint: Details: Interim History: Ekaterina [...] this began during his hospitalization for his VA/CABG and may have been procedure related). 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 Essential hypertension Atherosclerotic heart disease of [place] coronary artery without angina pectoris Postoperative atrial [...] rarely substance use type: does not use arelis/yazidism: [place] seatbelt use: always Clinical Quality Measures Falls Risk Screening/Assistive Devices Have you fallen in the past year?: Yes Coding Level of Care Code Off vis,est,level 4 Diagnoses Parkinsonism, unspecified Parkinsonism type G20 Parkinsonism type: unspecified Mild cognitive impairment G31.84 Polyneuropathy G62.9 Restless legs syndrome G25.81 06/13/25 1511 <Electronically signed by Braxton light MD> Date _ Braxton Russ Signature: Date (if applicable) CC: ~ [facility] Work Phone: 1(117) 647-448908-08-2025 Radiology Diagnostic study note [facility] Imaging Services [address] [place], [place] [address] Kidney and Bladder MR#: [id number] Acct: [id number] Name: EKATERINA RANDHAWA Rep #: [id number] : 1940 M 85 From: Joesph Leon MD PCP: Dr. Jluis Nichole DO Status: REG CLI Study:Kidney and Bladder Date of Exam: 0 04/26/25 Exam# [id number] Ordering Dr: Seth Bass DO PROCEDURE: KIDNEY AND BLADDER 04/26/2025 REASON FOR EXAM: HYPERKALEMIA TECHNIQUE: KIDNEY AND BLADDER COMPARISON: None FINDINGS: Kidneys: Normal renal sizes, parenchymal thicknesses, and echotextures. Tintah: No evidence of hydronephrosis. Cysts or Masses: [...] Bladder IMPRESSION: NORMAL RENAL ULTRASOUND. Reading Location: [facility] CC: Dr. Porsha Bass DO; Dr. Jluis Nichole DO ~ [employer] Gate Keeper: Signed [facility]07-09-2025 Evaluation note* Diagnosis Onset Date Resolution Status Admit Date Restless legs syndrome acute Ju ly 2024 9:39am Mild cognitive impairment chronic March 28, 2025 9:39am Parkinsonism chronic March 28 9:39am Polyneuropathy inactive March 28, 2025 9:39am Restless legs syndrome acute Se ptember 2024 1:49pm Mild cognitive impairment chronic June 11, 2025 1:49pm Parkinsonism chronic June 112024 1:49pm Polyneuropathy inactive June 11, 2025 1:49pm [facility] Work Phone: 1(482) 862-562106-05-2025 Hospital Discharge instructions Patient Education 02/22/2025 18:52:22 [...] for life. Yourdoctor can tell you more. [phone] [employer]. [address] [place] [address], [place] [address]. All rights reserved. This information is not intended as a substitute for professional medical care. Always follow [facility] professional's instructions. 02/22/2025 18:52:13 Renal Insufficiency [...] vessels (vasculitis) Viral or bacterial infection Some sldi-xhg-xbxtqev (OTC) pain medicines can cause renal failure [...] help you quit. For more information, visit: DocuTAPfree.gov/sites/default/files/pdf/hltdqmns-bgj-nco-accessible.pdf owww.smokefree.gov owww.cancer.org/healthy/stayawayfromtobacco/guidetoquittingsmoking/ Talk with your healthcare provider [...] one of the following for more information: [employer] Kidney Patients, www.aakp.org National Kidney Foundation, www.kidney.org [employer]ney Fund, www.kidneyfund.org National Kidney Disease Education [...] or you aren t able to urinate 5491-2277 [employer]. [address] [place] [address]. All rights reserved. This information is not [...] as systemic lupus erythematosus, sickle cell, or Cranston disease How is this test done? The [...] if you are taking any medicine, including rzuh-epm-yvhgcvf NSAIDs. Be sure your healthcare provider knows about all medicines, herbs, vitamins, and supplements you are taking. This includes medicines that don't need a prescription and any illicit drugs you may use. [phone] [employer]. [address] [place] [address]. All rights reserved. This information is not intended as a substitute for professional medical care. Always follow yourhealthcare professional's instructions. Follow Up Care 02/22/2025 17:19:54 With:Your maintenance worker Address:Unknown When:2-4 days Comments:Schedule appointment as soon as possibleReturn to ED if symptoms worsenCall in the morning for follow-up laboratory studies can return to the ER for any developing symptoms With:JLUIS NICHOLE Address: [address] [place] [phone] Business (1) When:2-4 days [facility] 06-05-2025 Emergency department Discharge summary Discharge Instructions Thank you for allowing [facility] to assist you with your healthcare needs. The following is importantdischarge information regarding your hospital visit. What to Do Next Instructions from Your Care Team No qualifying data available. Post Acute Orders No qualifying data available. You Need to Schedule the Following Appointments Follow Up with Your maintenance worker When:Within 2-4 days Additional Information: Schedule appointment as soon as possible Return to ED if symptoms worsen Call in the morning for follow-up laboratory studies can return to the ER for any developing symptoms Follow Up with JLUIS NICHOLE When:Within 2-4 days Where:[address] [place] [phone]- [phone] Business (1) Allergies NKA Medications Please ask [...] for life. Yourdoctor can tell you more. [phone] [employer]. [address] [place], [place] [address]. All rights reserved. This information is not [...] vessels (vasculitis) Viral or bacterial infection Some obuh-xru-mwpahqf (OTC) pain medicines can cause renal failure [...] help you quit. For more information, visit: DocuTAPfree.gov/sites/default/files/pdf/yxfkqbjb-igt-gvw-accessible.pdf owww.smokefree.gov owww.cancer.org/healthy/stayawayfromtobacco/guidetoquittingsmoking/ Talk with your healthcare provider [...] one of the following for more information: [place] of Kidney Patients, www.aakp.org National Kidney Foundation, www.kidney.org [employer] Kidney Fund, www.kidneyfund.org National Kidney Disease Education [...] or you aren t able to urinate 5750-1888 [employer]. [address] [place] [address]. All rights reserved. This information is not [...] as systemic lupus erythematosus, sickle cell, or Cranston disease How is this test done? The [...] if you are taking any medicine, including dyxt-syx-wskppzw NSAIDs. Be sure your healthcare provider knows about all medicines, herbs, vitamins, and supplements you are taking. This includes medicines that don't need a prescription and any illicit drugs you may use. 2997-6389 [employer]. [address] [place] [address]. All rights reserved. This information is not intended as a substitute for professional medical care. Always follow yourhealthcare professional's instructions. Additional Information VACCINATE! IT SAVES LIVES! Members of the community who have not yet received the COVID-19 vaccine and would like to receive it can visit one of [facility] Hospital vaccine clinics. There are many vaccine clinic locations within the [facility]. For locations and available times, please visit [email or web address]/. It is important to note that some COVID mobile vaccine clinics are held outdoors and may be canceled in rainy or stormy conditions. To learn more about pediatric vaccinations (ages 5-11), we invite you to visit the [facility] webpage. https://www.[facility].org/pages/5881-Dcsiv-Tbeigxwhuwt-Mlkfsghjfo-Ednuj-Qen stions.htmlTo learn more about the COVID-19 vaccine, we invite you to visit the CDC website for a list of frequently asked questions. https://www.cdc.gov/coronavirus/2019-ncov/vaccines/faq.html [facility] Patient Portal Access Instructions: Stay connected with your healthcare team and access your personal medical information anytime with the [facility] Patient Portal. If you would like a full copy of your medical records please contact the [facility] Medical Records Department Wednesday through Wednesday between 8a.m. and 4:30p.m. Please follow the directions below to access the portal: 1.Access the email account you provided upon registration to the [facility].2.Look for an invitation email from [facility].3.Open the email and access the invitation link: Accept Invitation to [facility]4.Fill in the required liriano to create your account. Sign into [email or web address] with your username and password that you [...] you will allow to register on the [facility] Patient Portal for access to your information. You can also access the [facility] Patient Portal on the [employer] josee. Simply click on Health Records under [employer] and then click on the [employer] logo. HOW TO SAFELY DISPOSE OF PRESCRIPTION [...] Call your local pharmacy or go to http://bit.ShopPad/0A4Wh3d to find one close to you.3.Make use of household items: Use cat litter or old coffee grounds to dispose medications if other options arenot available. Mix your drugs with these household products, seal them in an airtight container andthrow it into the garbage. Call [facility]: [phone] to be sure your drugs can be [...] aware that I should contact my doctor. Patient/Tours Hostess Signature: Date/Time: Relationship to Patient: Witness Name/Signature: Date/Time: [facility]06-05-2025 Note Discharge Instructions Thank you for allowing [facility] to assist you with your healthcare needs. The following is importantdischarge information regarding your hospital visit. What to Do Next Instructions from Your Care Team No qualifying data available. Post Acute Orders No qualifying data available. 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 Yourdoctor can tell you more. [phone] [employer]. [address] [place] [address], [place] [address]. All rights reserved. This information is not [...] vessels (vasculitis) Viral or bacterial infection Some envl-yeg-aputddy (OTC) pain medicines can cause renal failure [...] help you quit. For more information, visit: osmokefree.gov/sites/default/files/pdf/jncytknw-kka-mvq-accessible.pdf owww.smokefree.gov owww.cancer.org/healthy/stayawayfromtobacco/guidetoquittingsmoking/ Talk with your healthcare provider [...] one of the following for more information: [employer]ney Patients, www.aakp.org National Kidney Foundation, www.kidney.org [employer], www.kidneyfund.org National Kidney Disease Education [...] or you aren t able to urinate 9460-6183 [employer]. [address] [place] [address]. All rights reserved. This information is not [...] as systemic lupus erythematosus, sickle cell, or Cranston disease How is this test done? The [...] if you are taking any medicine, including ilmt-psj-rzlsxcn NSAIDs. Be sure your healthcare provider knows about all medicines, herbs, vitamins, and supplements you are taking. This includes medicines that don't need a prescription and any illicit drugs you may use. 4269-3743 [employer]. [address] [place] [address]. All rights reserved. This information is not intended as a substitute for professional medical care. Always follow yourhealthcare professional's instructions. Additional Information VACCINATE! IT SAVES LIVES! Members of the community who have not yet received the COVID-19 vaccine and would like to receive it can visit one of [facility] vaccine clinics. There are many vaccine clinic locations within the [facility]. For locations and available times, please visit www.[email or web address]/. It is important to note that some COVID mobile vaccine clinics are held outdoors and may be canceled in rainy or stormy conditions. To learn more about pediatric vaccinations (ages 5-11), we invite you to visit the [facility] webpage. https://www.[facility].org/pages/0846-Gvnar-Fgijqkspjjm-Nisthzfpza-Iaygd-Bya stions.htmlTo learn more about the COVID-19 vaccine, we invite you to visit the CDC website for a list of frequently asked questions. https://www.cdc.gov/coronavirus/2019-ncov/vaccines/faq.html [facility] Patient Portal Access Instructions: Stay connected with your healthcare team and access your personal medical information anytime with the [facility] Patient Portal. If you would like a full copy of your medical records please contact the [facility] Medical Records Department Wednesday through Wednesday between 8a.m. and 4:30p.m. Please follow the directions below to access the portal: 1.Access the email account you provided upon registration to the hospital.2.Look for an invitation email from [facility].3.Open the email and access the invitation link: Accept Invitation to [facility]4.Fill in the required liriano to create your account. Sign into [email or web address] with your username and password that you [...] you will allow to register on the [facility] Patient Portal for access to your information. You can also access the [facility] Patient Portal on the [employer] josee. Simply click on Health Records under [employer] and then click on the [employer] logo. HOW TO SAFELY DISPOSE OF PRESCRIPTION [...] Call your local pharmacy or go to http://Dapt.ShopPad/7Y8Vd9s to find one close to you.3.Make use of household items: Use cat litter or old coffee grounds to dispose medications if other options arenot available. Mix your drugs with these household products, seal them in an airtight container andthrow it into the garbage. Call [facility]: [phone] to be sure your drugs can be [...] aware that I should contact my doctor. Patient/Tours Hostess Signature: Date/Time: Relationship to Patient: Witness Name/Signature: Date/Time: [facility]06-05-2025 Note* Exam Date Time Procedure Performing Provider Status 02/22/25 5:31 PM EKG [ED AOH] - CV DAVID LAST MD; A nyh (Verified) ECG Final Report Sinus rhythm RBBB and LAFB SEE DICTATION Electronic Signature: DAVID LAST MD 02/22/2025 17:49:20 [facility]05-30-2025 Evaluation note* Diagnosis Onset Date Resolution Status [...] 9:39am Polyneuropathy inactive March 28, 2025 9:39am [facility] Work Phone: 1(441) 870-687303-12-2025 Evaluation note* Diagnosis Onset Date Resolution Status Admit Date Restless legs syndrome acute [facility] 2024 9:45am Mild cognitive impairment chronic November [...] Polyneuropathy inactive March 28, 2025 9:39am [facility] Work Phone: 1(144) 656-414702-27-2025 Evaluation note* Diagnosis Onset Date Resolution Status Admit Date Contusion of right foot acute F ebruary 2024 10:14am Restless legs syndrome acute [facility] 2024 9:45am Mild cognitive impairment chronic November 29, 2024 9:45am Parkinsonism chronic November 29, 2024 9:45am Polyneuropathy inactive November 9:45am [facility] Work Phone: 1(157) 163-304502-27-2025 Evaluation note* Diagnosis Onset Date Resolution Status Admit Date Contusion of right foot acute F ebruary 2024 10:14am Restless legs syndrome acute [facility] 2024 9:45am Mild cognitive impairment chronic November 29, 2024 9:45am Parkinsonism chronic November 29, 2024 9:45am Polyneuropathy inactive November 9:45am Essential hypertension chronic Ma y 2024 3:33pm Hyperlipidemia chronic February 16, 2025 3:33pm Ischemic cardiomyopathy chronic M ay 2024 3:33pm Paroxysmal atrial fibrillation chronic February 16, 2025 3 :33pm 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 Author [...] which included preparing to see the patient, ssuu-er-xdqr patient care, completing clinical documentation, obtaining and/or reviewing separately obtained history, counseling and educating the patient/family/caregiver, ordering medications, tests, or procedures, independently interpreting results (not separately reported), and communicating results to the patient/family/caregiver. Electronically Signed: Toney Gutierrez MD September 12, 2024 10:42 [facility]12-24-2024 History of Present illness Narrative* Toney [...] which included preparing to see the patient, hqzt-fp-rquh patient care, completing clinical documentation, obtaining and/or reviewing separately obtained history, counseling and educating the patient/family/caregiver, ordering medications, xenia ts, or procedures, independently interpreting results (not separately reported), and communicating results to the patient/family/caregiver. Electronically Signed: Toney Gutierrez MD September 12, 2024 10:42 AM [facility] Discharge instructions Patient Education [...] some information about medicine: You may use amkd-kcw-dzmagdd medicine such as acetaminophen or ibuprofen to [...] re-open Bleeding not controlled by direct pressure 3954-1612 [employer]. [address] [place] [address], [place] [address]. All rights reserved. This information is not intended as a substitute for professional medical care. Always follow [facility] hospitalcare professional's instructions. 06/14/2024 11:49:04 Wound Check (No [...] oRed streaks around the wound oDraining pus [phone] [employer]. [address] [place] [address], [place] [id number]. All rights reserved. This information is not intended as a substitute for professional medical care. Always follow yourhealthcare professional's instructions. Follow Up Care 06/14/2024 11:11:49 With:Go to emergency room if symptoms worsen Address: When:3-7 days With:JLUIS NICHOLE DO Address: [address] [place] [address] [place], [place] [phone]- [phone] When:2-4 days [facility] 09-25-2024 Note Discharge Instructions Thank you for allowing [facility] to assist you with your healthcare needs. [...] JLUIS NICHOLE DO When:Within 2-4 days Where:0 [facility] [address]- [phone] Allergies NKA Medications Please ask your primary [...] some information about medicine: You may use sznc-mvn-wxltdpa medicine such as acetaminophen or ibuprofen to [...] re-open Bleeding not controlled by direct pressure 3914-9448 [employer]. [address] [place] [address], [place] [address]. All rights reserved. This information is not [...] oRed streaks around the wound oDraining pus 3325-1100 [employer]. [address] [place] [address]. All rights reserved. This information is not intended as a substitute for professional medical care. Always follow yourhealthcare professional's instructions. Additional Information VACCINATE! IT SAVES LIVES! Members of the community who have not yet received the COVID-19 vaccine and would like to receive it can visit one of [facility] vaccine clinics. There are many vaccine clinic locations within the [facility]. For locations and available times, please visit www.[email or web address]/. It is important to note that some COVID mobile vaccine clinics are held outdoors and may be canceled in rainy or stormy conditions. To learn more about pediatric vaccinations (ages 5-11), we invite you to visit the [facility] webpage. https://www.[facility].org/pages/3914-Ofetn-Msifzbpovma-Ulyozhcxwy-Cabdt-Pig stions.htmlTo learn more about the COVID-19 vaccine, we invite you to visit the CDC website for a list of frequently asked questions. https://www.cdc.gov/coronavirus/2019-ncov/vaccines/faq.html [facility] Patient Portal Access Instructions: Stay connected with your healthcare team and access your personal medical information anytime with the [facility]. If you would like a full copy of your medical records please contact the [facility] Medical Records Department Wednesday through Wednesday between 8a.m. and 4:30p.m. Please follow the directions below to access the portal: 1.Access the email account you provided upon registration to the hospital.2.Look for an invitation email from [facility].3.Open the email and access the invitation link: Accept Invitation to [facility]4.Fill in the required liriano to create your [...] you will allow to register on the [facility] Patient Portal for access to your information. You can also access the [facility] Patient Portal on the [employer]. Simply click on Health Records under [employer] and then click on the [facility] logo. [...] Call your local pharmacy or go to http://Dapt.ShopPad/4L5Fz7z to find one close to you.3.Make use of household items: Use cat litter or old coffee grounds to dispose medications if other options arenot available. Mix your drugs with these household products, seal them in an airtight container andthrow it into the garbage. Call [facility]: [phone] to be sure your drugs can be [...] aware that I should contact my doctor. 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, chronic Mild cognitive impairment ac ken Polyneuropathy acute Parkinson's disease noneacti [facility] Work Phone: Evaluation + Plan note Future Appointments Appointment Date:12/15/2021 09:30:00 AM Scheduled Provider:LAYNE DOHERTY DO Location:[facility] Appointment Type:PC OV Future Scheduled Tests Laboratory* Basic Metabolic Panel 05/08/21 * Vancomycin Level Trough - Panel 05/08/21 [facility] Evaluation + Plan note Future Appointments Appointment Date:01/20/2022 10:00:00 AM Scheduled Provider: Location:[facility] Appointment Type:PT Treatment - [place] Appointment Date:01/22/2022 10:00:00 AM Scheduled Provider: Location:[facility] Appointment Type:PT Treatment - [place] Appointment Date:01/27/2022 10:00:00 AM Scheduled Provider: Location:[facility] Appointment Type:PT Treatment - [place] Appointment Date:01/30/2022 10:00:00 AM Scheduled Provider: Location:[facility] Appointment Type:PT Treatment - [place] Appointment Date:06/18/2022 09:00:00 AM Scheduled Provider:LAYNE DOHERTY DO Location:[facility] Appointment Type:PC Wellness Medicare with Labs [facility] Evaluation + Plan note Future Appointments Appointment Date:04/16/2022 07:30:00 AM Scheduled Provider:LAYNE DOHERTY DO Location:[facility] Appointment Type:PC OV Appointment Date:06/18/2022 09:00:00 AM Scheduled Provider:LAYNE DOHERTY DO Location:[facility] Appointment Type:PC Wellness Medicare with Labs [facility] Evaluation + Plan note Future Appointments Appointment Date:06/18/2022 09:00:00 AM Scheduled Provider:LAYNE DOHERTY DO Location:[facility] Appointment Type:PC Wellness Medicare with Labs Appointment Date:08/18/2022 07:30:00 AM Scheduled Provider:LAYNE DOHERTY DO Location:[facility] Appointment Type:PC OV [facility] Evaluation + Plan note Future Appointments Appointment Date:09/21/2022 09:00:00 AM Scheduled Provider:LAYNE DOHERTY DO Location:[facility] Appointment Type:PC OV Appointment Date:10/07/2022 09:00:00 AM Scheduled Provider:JLUIS NICHOLE DO Location[facility] Appointment Type:[facility] Evaluation + Plan note Future Appointments Appointment Date:11/09/2022 02:00:00 PM Scheduled Provider: Location:[facility] Appointment Type:[facility] AOH - Venous US/Doppler Both Legs (fo Appointment Date:06/22/2023 09:00:00 AM Scheduled Provider:JLUIS NICHOLE DO Location:[facility] Appointment Type:PC Wellness Medicare Future Scheduled Tests Laboratory* Stool for Occult Blood (Lab) 10/11/22 [facility] Evaluation + Plan note Future Appointments Appointment Date:07/18/2024 09:00:00 AM Scheduled Provider:JLUIS NICHOLE DO Location:[facility] Appointment Type:PC Wellness Medicare [facility] Evaluation + Plan note Future Appointments Appointment Date:06/21/2024 09:00:00 AM Scheduled Provider:MARTIR WEBB Location:[facility] Appointment Type: OV ED Follow Up Appointment Date:07/18/2024 09:00:00 [...] Provider:JLUIS NICHOLE DO Location:[facility] Appointment Type:PC OV [facility] Evaluation + Plan note Future Appointments Appointment Date:05/23/2025 10:00:00 AM Scheduled Provider:JLUIS NICHOLE DO Location:[facility] Appointment Type:PC OV Future Scheduled Tests Laboratory* Basic Metabolic Panel 6/5/25 * N-Terminal proBNP 02/21/25 [facility] Evaluation + Plan note Future Appointments Appointment Date:07/05/2025 10:00:00 AM Scheduled Provider: Location:[facility] Appointment Type:CT Head or Brain w/o Contrast Appointment Date:09/05/2025 02:00:00 PM Scheduled Provider:JLUIS NICHOLE DO Location:[facility] Appointment Type:PC Wellness Medicare Future Scheduled Tests Radiology* CT Head or Brain w/o Contrast 07/05/25 * XR Chest 2 Views (PA & Lateral) 07/04/25 [facility] Evaluation + Plan note Future Appointments Appointment Date:09/05/2025 02:00:00 PM Scheduled Provider:JLUIS NICHOLE DO Location: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 lupe Paroxysmal atrial fibrillation [facility] Work Phone: Evaluation note* Diagnosis Onset Date Resolution Status Atherosclerotic heart diseas e of [place] coronary artery without angina pectoris chronic Essential hypertension chron ic Hyperlipidemia chronic Ischemic cardiomyopathy 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 pl sql 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 lupe Paroxysmal atrial fibrillation chronic Mild cognitive impairment ac ken Polyneuropathy acute Parkinson's disease noneacti ve [facility] Work Phone: Evaluation note* Diagnosis Thrombocytopenia (HCC)- Primary Thrombocytopenia, unspecified Anemia, unspecified type [facility] Narrative No data available for this section [facility] Hospital Discharge instructions No data available for this section [facility] Progress note No data available for this section [facility] Reason for referral (narrative)No reason for referral information [facility]WCorey [facility] Work Phone: Summary Purpose Family History No Family History Records Found Relationship Condition Age at Onset Recorded Date/T gwyn father Myocardial infarction Unknown Advance Directives No Advanced Directives Records Found Advance Directive Response Recorded Date/ Time Living Will Yes March 22, 2019 1 0:10am Power of Application Integrator Yes March 22, 2019 10:10am Advance Directive Response Recorded Date/ Time Living Will Yes March 22, 2019 1 0:10am Do you have a Healthcare Power of Application Integrator? Yes March 22, 2019 10:10am Chief Complaint and Reason for Visit Chief Complaint ATAXIA 6 M FU Reason for Visit Atherosclerotic hear t disease of [place] coronary artery without angina pectoris Essential hypertension Hyperlipidemia Ischemic cardiomyopathy Paroxysmal atrial fibrillation Chief Complaint 6 m fu Parkinson's disease EORDER Reason for Visit Atherosclerotic hear t disease of [place] coronary artery without angina pectoris Essential hypertension Hyperlipidemia Ischemic cardiomyopathy Paroxysmal atrial fibrillation Mild cognitive impairment Polyneuropathy Parkinson's disease Chief Complaint 6 m fu Parkinson's disease EORDER PARKINSONS Reason for Visit Atherosclerotic hear t disease of [place] coronary artery without angina pectoris Essential hypertension [...] Admit Date Contusion of right foot November 16 025 10:14am Restless legs syndrome November 29, [...] Visit Admit Date Contusion of right foot February 27th, 2 025 10:14am Restless legs syndrome November [...] section and content) DATE CREATED AUTHOR 06/01/2018 [facility] DATE CREATED AUTHOR AUTHOR'S ORGANIZ ATION 02/22/2024 [facility] ([place] DATE CREATED AUTHOR AUTHOR'S ORGANIZ ATION 06/09/2025 [facility] DATE CREATED AUTHOR AUTHOR'S ORGANIZ ATION 07/16/2025 [facility] DATE CREATED AUTHOR AUTHOR'S ORGANIZ ATION 07/27/2025 [facility] DATE CREATED AUTHOR AUTHOR'S ORGANIZ ATION 08/03/2025 [facility] Care Team (unrecognized sect ion and content) Team Status: Active Member Role Status Dates Dr. Layne Doherty DO Family Provider Active Dr. Layne Doherty DO Primary Care Provider Active Team Status: Inactive Member Role Status Dates Dr. Layne Doherty DO Primary Care Provider, Referrin g Provider Active Maryuri Begum LABOR EXPEDITER, LABOR EXPEDITER-C Attending Provider Active Team Status: Inactive Member [...] Doherty DO Referring Provider Active Maryuri Begum LABOR EXPEDITER, LABOR EXPEDITER-C Attending Provider Active Dr. Jluis Nichole DO Primary Care Provider Active Team Status: Inactive Member Role Status Dates Dr. Layne Doherty DO Referring Provider Active Dr. Braxton Doss MD Attending Provider Active Dr. Jluis Nichole DO Primary Care Provider Active Team Status: Inactive Member Role Status Dates Dr. Jluis Nichole DO Primary Care Provider Active Dr. Braxton Doss MD Attending Provider Active Warehouse Receiving Clerk Relationship Specialty Start Date End Date Jluis Nichole DO [address] [place] [id number] PCP - General Family Medicine 09/12/24 Adonis Joaquin MD [address] [place] [address] Primary Staff Physician Cardiology 12/06/18 Team Status: [...] 2025 End: February 08, 2025 Maryuri Begum LABOR EXPEDITER, LABOR EXPEDITER-C Attending Provider Active S tart: February 08, 2025 End: February 08, 2025 Maryuri Begum LABOR EXPEDITER, LABOR EXPEDITER-C Referring Provider Active S tart: February 08, [...] 2025 End: February 08, 2025 Maryuri Begum LABOR EXPEDITER, LABOR EXPEDITER-C Attending Provider Active S tart: February 08, 2025 End: February 08, 2025 Maryuri Begum LABOR EXPEDITER, LABOR EXPEDITER-C Referring Provider Active S tart: February 08, [...] 2025 End: February 08, 2025 Maryuri Begum LABOR EXPEDITER, LABOR EXPEDITER-C Attending Provider Active S tart: February 08, 2025 End: February 08, 2025 Maryuri Begum LABOR EXPEDITER, LABOR EXPEDITER-C Referring Provider Active S tart: February 08, [...] 2025 End: March 28, 2025 Sharon Parsons LABOR EXPEDITER-C Attending Provider Active S tart: March 28, 2025 End: March 28, 2025 Team Status: Inactive Member Role/Relationship Status Dates Dr. Jluis Nichole DO Primary Care Provider Active Start: March 28, 2025 End: March 28, 2025 DG Vinson Attending Provider Active Start: March 28, 2025 [...] 2025 End: April 10, 2025 Sharon Parsons LABOR EXPEDITER-C Attending Provider Active S tart: April 10, 2025 End: April 10, 2025 Sharon Parsons LABOR EXPEDITER-C Referring Provider Active S tart: April 10, [...] Ashley Corea PT Position: P3 Scheduling - Registered Art Therapist Advanced Member Role: Other Name: LAYNE DOHERTY DO Position: P4 Physician - Primary Care Med Service: Active Provider Member Role: Primary Care Physician Address: Address: [address] [place] [id number] Care Team Related Persons Name: DEBI RANDHAWA Address: [address] [place], [place] [id number] Care Team Personnel Name: Ashley Corea PT Position: P3 Scheduling - Registered Art Therapist Advanced Member Role: Other Name: LAYNE DOHERTY DO Position: P4 Physician - Primary Care Med Service: Active Provider Member Role: Primary Care Physician Address: Address: [address] [place], [place] [address] [address]- Care Team Related Persons Name: DEBI RANDHAWA Address: [address] [place], [place] [id number] Care Team Personnel Name: Ashley Corea Clerk Lynn PT Position: P3 Scheduling - Registered Art Therapist Advanced Member Role: Other Name: LAYNE DOHERTY DO Position: P4 Physician - Primary Care Member Role: Primary Care Physician Address: Address: [address] [place] [id number]- Care Team Related Persons Name: DEBI RANDHAWA Address: Home [address] [place] [id number] Care Team Personnel Name: Ashley Corea Clerk Lynn PT Position: P3 Scheduling - Registered Art Therapist Advanced Member Role: Other Name: JLUIS NICHOLE DO Position: P4 Physician - Primary Care Member Role: Primary Care Physician Address: Address: [address] [place] [id number] Care Team Related Persons Name: DEBI RANDHAWA Address: [address] [phone] Care Team Personnel Name: Ashley Corea Clerk Lynn PT Position: P3 Scheduling - Registered Art Therapist Advanced Member Role: Other Name: JLUIS NICHOLE DO Position: P4 Physician - Primary Care Member Role: Primary Care Physician Address: Address: [address] [place] [id number] [place] Care Team Related Persons Name: DEBI RANDHAWA Address: [address] [id number] Source Comments (unrecognize d section and content) In the event this informatio n is protected by the Federal Confidentiality of Alcohol and Drug Abuse Patient Records regulations: The Federal rules restrict any use of the information to criminally investigate or prosecute any alcohol or drug abuse patient.[facility] Reason for Visit (unrecogniz ed [...] BE BASED ON THE PRIMARY CLINICAL RECORDS. [facility]. provides no warranty or guarantee of the accuracy or completeness of information in this document.
[2025-09-05 07:41] LABS: Potassium 4.9 mmol/L (3.3-5.1)
== END ==
LOC: OLS.WHLTSB 05:00
PROVIDERS: PCP Student in an Organized Health Care Education/Training Program; Visit Provider Internal Medicine
DX: E87.5 Hyperkalemia (principal); F41.9 Anxiety disorder, unspecified; H54.7 Unspecified visual loss; H91.93 Unspecified hearing loss, bilateral; M62.838 Other muscle spasm; N18.4 Chronic kidney disease, stage 4 (severe); N20.0 Calculus of kidney
CPT/HCPCS: 36415; 84132